=== PATIENT | female | born 1930 | race Caucasian/White ===

== ENCOUNTER 2018-07-11 12:03 | Observation (INO) | payer OTHER ==
[2018-07-11] MEDS ORDERED: NA CHLORIDE 0.9% 500 ML ONE (13:18)
[2018-07-11 13:48] LABS: Protime INR 1.4
[2018-07-11 13:49] LABS: Absolute Lymphocytes (CBC) 0.6 K/uL (0.7-4.9); Absolute Monocytes 0.4 K/uL (0.1-1.3); Absolute Neutrophil 2.5 K/uL (1.8-8.0); Basophils % 0.7 % (0-1.3); Eosinophils % 1.7 % (0-4.4); Hematocrit 34.4 % (36.0-45.0); Lymphocytes % 16.8 % (15.3-44.8); MCH 32.1 pg (27.0-35.0); MCV 94.3 fL (80-100); MPV 8.6 fL (7.6-11.3); Monocytes % 11.1 % (3.3-12.3); RBC Red Blood Cell Count 3.65 M/uL (3.86-4.86)
--- NOTE | 2018-07-11 14:02 | RAD REPORT ---
EXAM DESCRIPTION: USExtrem Venous W Compress Bil07/11/2018 1:57 pm CLINICAL HISTORY: Bilateral leg swelling COMPARISON: none FINDINGS: The common femoral, superficial femoral, popliteal and posterior tibial veins bilaterally are compressible and demonstrate augmentation. Doppler demonstrates good flow. 19 millimeter right Rodrigues's cyst IMPRESSION: No evidence of deep venous thrombosis involving either lower extremity. 19 millimeter right Rodrigues's cyst
[2018-07-11 14:04] LABS: ALT/SGPT 13 U/L (12-78); AST/SGOT 26 U/L (15-37); Albumin 2.2 g/dL (3.4-5.0); Alkaline Phosphatase 105 U/L (45-117); BUN Blood Urea Nitrogen 15 mg/dL (7-18); Bicarbonate 27 mmol/L (21-32); Bilirubin Direct 0.5 mg/dL (0-0.2); Bilirubin Total 1.4 mg/dL (0.2-1.0); Glucose Level 122 mg/dL (74-106); Magnesium 2.1 mg/dL (1.8-2.4); NT PRO-BNP 100 pg/mL (<450); Protein, Total 7.7 g/dL (6.4-8.2); Sodium Level 138 mmol/L (136-145); Troponin (Emerg Dept Use Only) < 0.02 ng/mL (0.0-0.045)
--- NOTE | 2018-07-11 15:05 | EDPHYS ---
Physician Documentation [facility] Name: Whitney Villalta Age: 87 yrs Sex: Female : 1930 Arrival Date: 07/11/2018 Time: 12:10 Bed 18 Private MD: Fareed Ballesteros H ED Physician Keven Sousa HPI: 07/11 13:06 This 87 yrs old Female presents to ER via Wheelchair with complaints of Feet patricia Swelling. 13:06 The patient presents with decreased range of motion, pain, swelling, tenderness. The patricia complaints affect the right leg and left leg. Context: The problem was sustained at an unknown site. Onset: The symptoms/episode began/occurred 3 day(s) ago. Modifying factors: The symptoms are alleviated by elevating leg, remaining still, the symptoms are aggravated by movement, weight bearing, bending knee. Associated signs and symptoms: The patient has no apparent associated signs or symptoms. Treatment prior to arrival includes: prescription medications. The patient has experienced similar episodes in the past, several times. Historical: - Allergies: 12:37 Morphine; sv - PMHx: 12:37 liver disease; Pneumonia; Colon cancer; sv - PSHx: 12:37 Knee surgery; back; Tonsillectomy; Cholecystectomy; Colectomy; sv - Immunization history:: Flu vaccine is up to date. - Social history:: Smoking status: Patient/guardian denies using tobacco, Patient/guardian denies using alcohol. - Ebola Screening: : No symptoms or risks identified at this time. - Family history:: not pertinent. ROS: 13:06 Constitutional: Negative for fever, chills, and weight loss, Eyes: Negative for injury, patricia pain, redness, and discharge, ENT: Negative for injury, pain, and discharge, Neck: Negative for injury, pain, and swelling, Cardiovascular: Negative for chest pain, palpitations, and edema, Respiratory: Negative for shortness of breath, cough, wheezing, and pleuritic chest pain, Back: Negative for injury and pain, : Negative for injury, bleeding, discharge, and swelling, Skin: Negative for injury, rash, and discoloration, Neuro: Negative for headache, weakness, numbness, tingling, and seizure, Psych: Negative for depression, anxiety, suicide ideation, homicidal ideation, and hallucinations, Allergy/Immunology: Negative for hives, rash, and allergies, Endocrine: Negative for neck swelling, polydipsia, polyuria, polyphagia, and marked weight changes, Hematologic/Lymphatic: Negative for swollen nodes, abnormal bleeding, and unusual bruising. 13:06 MS/extremity: Positive for decreased range of motion, pain, swelling, tenderness, of the right leg and left leg. Exam: 13:06 Constitutional: This is a well developed, well nourished patient who is awake, alert, patricia and in no acute distress. Head/Face: Normocephalic, atraumatic. Eyes: Pupils equal round and reactive to light, extra-ocular motions intact. Lids and lashes normal. Conjunctiva and sclera are non-icteric and not injected. Cornea within normal limits. Periorbital areas with no swelling, redness, or edema. ENT: Nares patent. No nasal discharge, no septal abnormalities noted. Tympanic membranes are normal and external auditory canals are clear. Oropharynx with no redness, swelling, or masses, exudates, or evidence of obstruction, uvula midline. Mucous membranes moist. Neck: Trachea midline, no thyromegaly or masses palpated, and no cervical lymphadenopathy. Supple, full range of motion without nuchal rigidity, or vertebral point tenderness. No Meningismus. Chest/axilla: Normal chest wall appearance and motion. Nontender with no deformity. No lesions are appreciated. Cardiovascular: Regular rate and rhythm with a normal S1 and S2. No gallops, murmurs, or rubs. Normal PMI, no JVD. No pulse deficits. Respiratory: Lungs have equal breath sounds bilaterally, clear to auscultation and percussion. No rales, rhonchi or wheezes noted. No increased work of breathing, no retractions or nasal flaring. Abdomen/GI: Soft, non-tender, with normal bowel sounds. No distension or tympany. No guarding or rebound. No evidence of tenderness throughout. Back: No spinal tenderness. No costovertebral tenderness. Full range of motion. Female : Normal external genitalia. Skin: Warm, dry with normal turgor. Normal color with no rashes, no lesions, and no evidence of cellulitis. Neuro: Awake and alert, GCS 15, oriented to person, place, time, and situation. Cranial nerves II-XII grossly intact. Motor strength 5/5 in all extremities. Sensory grossly intact. Cerebellar exam normal. Normal gait. Psych: Awake, alert, with orientation to person, place and time. Behavior, mood, and affect are within normal limits. 13:06 Musculoskeletal/extremity: Extremities: swelling, ROM: full active range of motion, full passive range of motion, Circulation is intact in all extremities. numbness, decreased sensation, Compartment Syndrome exam of affected extremity: is normal. DVT Exam: negative Homans' sign noted on exam, no appreciated bluish discoloration, no erythema, no increased warmth, pain, swelling, tenderness. Vital Signs: 12:37 BP 116 / 35; Pulse 85; Resp 16; Temp 98; Pulse Ox 95% ; Weight 64.41 kg; Height 5 ft. 5 sv in. (165.10 cm); Pain 5/10; 13:32 BP 103 / 62; Pulse 90; Resp 22; Pulse Ox 95% on R/A; tw2 14:30 BP 100 / 88; Pulse 83; Resp 17; Pulse Ox 98% on R/A; tw2 15:55 BP 97 / 63; Pulse 79; Resp 16; Pulse Ox 97% on R/A; tw2 16:53 BP 92 / 56; Pulse 76; Resp 13; Pulse Ox 98% on R/A; tw2 17:27 BP 99 / 61; Pulse 83; Resp 15; Pulse Ox 97% on R/A; tw2 12:37 Body Mass Index 23.63 (64.41 kg, 165.10 cm) sv MDM: 12:45 Patient medically screened. [facility] 13:08 Data reviewed: vital signs, nurses notes, lab test result(s), EKG, radiologic studies. [facility] 07/11 12:48 Order name: Basic Metabolic Panel; Complete Time: 14:57 sv 07/11 12:48 Order name: CBC with Diff; Complete Time: 14:57 sv 07/11 12:48 Order name: LFT's; Complete Time: 14:57 sv 07/11 12:48 Order name: Magnesium; Complete Time: 14:57 sv 07/11 12:48 Order name: NT PRO-BNP; Complete Time: 14:57 sv 07/11 12:48 Order name: PT-INR; Complete Time: 14:57 sv 07/11 12:48 Order name: Troponin (emerg Dept Use Only); Complete Time: 14:57 sv 07/11 12:48 Order name: XRAY Chest (1 view) 07/11 13:05 Order name: Lipase; Complete Time: 14:57 [facility] 07/11 13:05 Order name: AMMONIA; Complete Time: 14:57 [facility] 07/11 13:05 Order name: US Extremity Venous W Compression Jeremiah; Complete Time: 14:57 [facility] 07/11 13:05 Order name: Urine Culture [facility] 07/11 15:46 Order name: Urine Dipstick--Ancillary (enter results) 07/11 12:48 Order name: EKG; Complete Time: 12:49 07/11 12:48 Order name: Cardiac monitoring; Complete Time: 13:22 07/11 12:48 Order name: EKG - Nurse/Tech; Complete Time: 13:22 07/11 12:48 Order name: IV Saline Lock; Complete Time: 13:22 07/11 12:48 Order name: Labs collected and sent; Complete Time: 13:22 07/11 12:48 Order name: O2 Per Protocol; Complete Time: 13:22 07/11 12:48 Order name: O2 Sat Monitoring; Complete Time: 13:22 07/11 13:05 Order name: Urine Dipstick-Ancillary (obtain specimen); Complete Time: 15:21 [facility] 07/11 15:21 Order name: Straight Cath - Urine; Complete Time: 15:21 [facility] 07/11 17:02 Order name: CONS Physician Consult EDMS Administered Medications: 13:31 Drug: NS 0.9% 1000 ml Route: IV; Rate: 75 ml/hr; Site: left antecubital; tw2 17:53 Follow up: IV Status: Infusion continued upon admission tw2 Disposition: 07/11/18 15:05 Hospitalization ordered by Jp Aleman for Observation. Preliminary diagnosis are Unspecified cirrhosis of liver, Ascites, Edema, unspecified, Dyspnea. - Bed requested for Telemetry/MedSurg (observation). - Status is Observation. tw2 - Condition is Stable. - Problem is new. - Symptoms have improved. UTI on Admission? No Signatures: Dispatcher [employer] EDMS Lucia Joel RN RN sv Woody, Diana, RN RN dw Anderson, Corey, MD MD cha Wise, Tara RN RN tw2 Corrections: (The following items were deleted from the chart) 17:15 15:05 Hospitalization Ordered by Jp Aleman MD for Observation. Preliminary diagnosis dw is Unspecified cirrhosis of liver; Ascites; Edema, unspecified; Dyspnea. Bed requested for Telemetry/MedSurg (observation). Status is Observation. Condition is Stable. Problem is new. Symptoms have improved. UTI on Admission? No. patricia 17:55 17:15 07/11/2018 15:05 Hospitalization Ordered by Jp Aleman MD for Observation. tw2 Preliminary diagnosis is Unspecified cirrhosis of liver; Ascites; Edema, unspecified; Dyspnea. Bed requested for Telemetry/MedSurg (observation). Status is Observation. Condition is Stable. Problem is new. Symptoms have improved. UTI on Admission? No. dw
--- NOTE | 2018-07-11 15:05 | ER ---
Nurse's Notes [facility] Name: Whitney Villalta Age: 87 yrs Sex: Female : 1930 Arrival Date: 07/11/2018 Time: 12:10 Bed 18 Private MD: Fareed Ballesteros H Diagnosis: Unspecified cirrhosis of liver;Ascites;Edema, unspecified;Dyspnea Presentation: 07/11 12:34 Presenting complaint: Patient states: abd swelling and bilateral feet swelling x a sv month but has increased over the last week. SOB with exertion. Transition of care: patient was not received from another setting of care. Onset of symptoms was June 2018. Care prior to arrival: None. 12:34 Method Of Arrival: Wheelchair sv 12:34 Acuity: KELLY 2 sv 13:46 Risk Assessment: Do you want to hurt yourself or someone else? Patient reports no tw2 desire to harm self or others. Initial Sepsis Screen: Does the patient meet any 2 criteria? No. Patient's initial sepsis screen is negative. Does the patient have a suspected source of infection? No. Patient's initial sepsis screen is negative. Historical: - Allergies: 12:37 Morphine; sv - PMHx: 12:37 liver disease; Pneumonia; Colon cancer; sv - PSHx: 12:37 Knee surgery; back; Tonsillectomy; Cholecystectomy; Colectomy; sv - Immunization history:: Flu vaccine is up to date. - Social history:: Smoking status: Patient/guardian denies using tobacco, Patient/guardian denies using alcohol. - Ebola Screening: : No symptoms or risks identified at this time. - Family history:: not pertinent. Screenin:47 Abuse screen: Denies threats or abuse. Nutritional screening: No deficits noted. tw2 Tuberculosis screening: No symptoms or risk factors identified. Fall Risk Gait- Weak (10 pts.). Assessment: 12:45 General: Appears in no apparent distress. well groomed, Behavior is calm, cooperative, tw2 appropriate for age. Pain: Complains of pain in left leg and right leg. Neuro: Level of Consciousness is awake, alert, obeys commands, Oriented to person, place, time, situation. Cardiovascular: Denies chest pain, shortness of breath, Heart tones S1 S2 Patient's skin is warm and dry. Edema is 3+ to left ankle, left foot, left toes, right ankle, right foot and right toes. Respiratory: Airway is patent Respiratory effort is even, unlabored, Respiratory pattern is regular, symmetrical, Breath sounds are clear bilaterally. GI: Abdomen is round distended, Bowel sounds present X 4 quads. Abd is soft X 4 quads Reports bloating, abdominal swelling. : No signs and/or symptoms were reported regarding the genitourinary system. EENT: No signs and/or symptoms were reported regarding the EENT system. Derm: Musculoskeletal: Range of motion: intact in left ankle and right ankle noted purple discoloration to b/l feet Swelling present in right foot and left foot. 13:32 Reassessment: Patient appears in no apparent distress at this time. No changes from tw2 previously documented assessment. Patient and/or family updated on plan of care and expected duration. Pain level reassessed. Patient is alert, oriented x 3, equal unlabored respirations, skin warm/dry/pink. 14:43 Reassessment: Patient appears in no apparent distress at this time. No changes from tw2 previously documented assessment. Patient and/or family updated on plan of care and expected duration. Pain level reassessed. Patient is alert, oriented x 3, equal unlabored respirations, skin warm/dry/pink. 15:54 Reassessment: Patient appears in no apparent distress at this time. No changes from tw2 previously documented assessment. Patient and/or family updated on plan of care and expected duration. Pain level reassessed. Patient is alert, oriented x 3, equal unlabored respirations, skin warm/dry/pink. 16:53 Reassessment: Patient appears in no apparent distress at this time. No changes from tw2 previously documented assessment. Patient and/or family updated on plan of care and expected duration. Pain level reassessed. Patient is alert, oriented x 3, equal unlabored respirations, skin warm/dry/pink. Vital Signs: 12:37 BP 116 / 35; Pulse 85; Resp 16; Temp 98; Pulse Ox 95% ; Weight 64.41 kg; Height 5 ft. 5 sv in. (165.10 cm); Pain 5/10; 13:32 BP 103 / 62; Pulse 90; Resp 22; Pulse Ox 95% on R/A; tw2 14:30 BP 100 / 88; Pulse 83; Resp 17; Pulse Ox 98% on R/A; tw2 15:55 BP 97 / 63; Pulse 79; Resp 16; Pulse Ox 97% on R/A; tw2 16:53 BP 92 / 56; Pulse 76; Resp 13; Pulse Ox 98% on R/A; tw2 17:27 BP 99 / 61; Pulse 83; Resp 15; Pulse Ox 97% on R/A; tw2 12:37 Body Mass Index 23.63 (64.41 kg, 165.10 cm) sv ED Course: 12:10 Patient arrived in ED. sb2 12:10 Fareed Ballesteros DO is Private Physician. sb2 12:35 Triage completed. sv 12:38 Arm band placed on. sv 12:45 Keven Sousa MD is Attending Physician. patricia 13:06 Kimberly Martin RN is Primary Nurse. tw2 13:14 Placed in gown. Bed in low position. Adult w/ patient. campus monitor on. Pulse ox on. tw2 NIBP on. Warm blanket given. 13:22 Inserted saline lock: 22 gauge in left antecubital area, using aseptic technique. tw2 ,using aseptic technique. insertion by Mckenzie Rachel RN Blood collected. 13:28 XRAY Chest (1 view) In Process Unspecified. EDMS 13:59 US Extremity Venous W Compression Jeremiah In Process Unspecified. EDMS 15:04 Jp Aleman MD is Hospitalizing Provider. [facility] 15:10 Straight cath inserted, using sterile technique, 18 Fr. Specimen obtained. 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 Patient tolerated well. 15:22 Urine Culture Sent. tw2 15:25 EKG done, by photo technician. reviewed by Keven Sousa MD. tc 17:20 No provider procedures requiring assistance completed. Patient admitted, IV remains in tw2 place. 17:25 Awaiting: attempted to call report, KULDIP Tovar will have to call me back. tw2 Administered Medications: 13:31 Drug: NS 0.9% 1000 ml Route: IV; Rate: 75 ml/hr; Site: left antecubital; tw2 17:53 Follow up: IV Status: Infusion continued upon admission tw2 Outcome: 15:05 Decision to Hospitalize by Provider. patricia 17:41 Admitted to Tele accompanied by tech, family with patient, via stretcher, room 207, sg with chart, Report called to [place] CHRISTIANSEN 17:41 Condition: stable 17:41 Instructed on the need for admit, safety practices, Demonstrated understanding of instructions. 17:55 Patient left the ED. tw2 Signatures: Dispatcher [employer] Lucia Helm, RN Maico Shelby RN RN sg Anderson, Corey, MD MD cha Callis, Tiffany, liquor inspector EKG [facility] Kimberly Martin RN RN tw2 Jennifer Germain 2
--- NOTE | 2018-07-11 15:29 | RAD REPORT ---
EXAM DESCRIPTION: Jaswant Single View07/11/2018 1:27 pm CLINICAL HISTORY: Shortness of breath COMPARISON: none FINDINGS: The interstitial pattern within the lungs appears mildly prominent. . The heart is normal size IMPRESSION: Mild prominence of the interstitial pulmonary parenchyma may indicate a pneumonitis or be chronic
--- NOTE | 2018-07-11 15:57 | EKG ---
Test Date: 2018-07-11 Test Time: 15:21:06 Reconciliation Accountant: JUAN A MEASUREMENT RESULTS: Intervals: Rate: 83 MI: 186 QRSD: 72 QT: 398 QTc: 467 [place]: P: 58 MI: 186 QRS: 69 T: 56 INTERPRETIVE STATEMENTS: Normal sinus rhythm Low voltage QRS Borderline ECG No previous ECG available for comparison Electronically Signed On 07-11-18 15:56:44 CONE TENDER by Bravo Gonzalez
[2018-07-11 16:03] LABS: Urine Blood TRACE (NEG); Urine Glucose NEGATIVE (NEG); Urine Protein NEGATIVE (NEG); Urine pH 6.5 (5.0-7.0)
[2018-07-11 19:56] VITALS: BMI 23.6
--- NOTE | 2018-07-11 20:29 | P.HP ---
Certification for Inpatient Patient admitted to: Observation With expected LOS: <2 Midnights Practitioner: I am a practitioner with admitting privileges, knowledge of patient current condition, hospital course, and medical plan of care. Services: Services provided to patient in accordance with Admission requirements found in Title 42 Section 412.3 of the Code of Federal Regulations Patient History Date of Service: 07/11/18 Reason for admission: Lower extremity edema History of Present Illness: Ms Villalta is a 87-year-old woman with history of liver cirrhosis, colon cancer, who came to ER complaining of progressive lower extremity edema since 1 month ago, getting worse during last week. Patient also complained of shortness of breath specially during ambulation. She has had some chest pain, pressure-like , lasting for 1 min or so, retrosternal, not radiating for associated with nausea, or diaphoresis. She also noticed that her stomach has been increasing in size. Previously she has had paracentesis done when she had similar symptoms. Lab work shows WBC 3.6K, bilirubin 1.4, normal transaminases. Chest- x-ray shows prominent interstitial, possible chronic. Doppler shows no DVT but right Rodrigues cyst 19 mm. No fever. Allergies adhesive tape Allergy (Verified 07/11/18 18:58) Itching morphine Allergy (Verified 07/11/18 16:57) Itching/Hives/Rash Home medications list reviewed: Yes Home Medications: Docusate Sodium 1 cap PO BEDTIME 07/11/18 Furosemide [Lasix*] 1 tab PO DAILY 07/11/18 Gabapentin 1 cap PO TID 07/11/18 Iron 28 mg PO BID 07/11/18 Magnesium Oxide [Magnesium] 1 tab PO BID 07/11/18 Potassium Chloride [Klor-Con M10] 1 tab PO BID 07/11/18 Rifaximin [Xifaxan*] 550 mg PO BID 07/11/18 Spironolactone [Aldactone*] 2 tab PO DAILY 07/11/18 - Past Medical/Surgical History Has patient received pneumonia vaccine in the past: Yes Diabetic: No -: liver cirrhosis -: colon cancer -: back surgery -: knee surgery -: gallbladder removal -: tonsillectomy - Family History Family History: Reviewed- Non-Contributory - Social History Smoking Status: Never smoker Alcohol use: No CD- Drugs: No Caffeine use: Yes Place of Residence: Home Review of Systems 10-point ROS is otherwise unremarkable Physical Examination - Vital Signs Temperature: 97 F Blood Pressure: 106/58 Pulse: 86 Respirations: 20 Pulse Ox (%): 97 - Physical Exam General: Alert, In no apparent distress HEENT: Atraumatic, PERRLA, Mucous membr. moist/pink, EOMI, Sclerae nonicteric Neck: Supple, 2+ carotid pulse no bruit, No LAD, Without JVD or thyroid abnormality Respiratory: Clear to auscultation bilaterally, Normal air movement Cardiovascular: Regular rate/rhythm, Normal S1 S2 Gastrointestinal: Normal bowel sounds, No tenderness, Distended Musculoskeletal: No tenderness, Swelling (3+ bilateral lower extremity edema) Integumentary: No rashes Neurological: Normal speech, Normal strength at 5/5 x4 extr, Normal tone, Normal affect Lymphatics: No axilla or inguinal lymphadenopathy - Studies Laboratory Data (last 24 hrs) 07/11/18 13:27: Lipase 256 07/11/18 13:19: PT 16.6 H, INR 1.40 07/11/18 13:19: WBC 3.6 L, Hgb 11.7 L, Hct 34.4 L, Plt Count 113 L 07/11/18 13:19: Sodium 138, Potassium 4.0, BUN 15, Creatinine 1.10, Glucose 122 H, Magnesium 2.1, Total Bilirubin 1.4 H, AST 26, ALT 13, Alkaline Phosphatase 105 Assessment and Plan - Problems (Diagnosis) (1) Cirrhosis Current Visit: Yes Status: Acute Qualifiers: Hepatic cirrhosis type: unspecified hepatic cirrhosis Ascites presence: with ascites Qualified Code(s): K74.60 - Unspecified cirrhosis of liver; R18.8 - Other ascites (2) Lower extremity edema Current Visit: Yes Status: Acute (3) Shortness of breath Current Visit: Yes Status: Acute - Plan Will admit the patient to the hospital due to severe lower extremity edema. Differential diagnosis include decompensated liver cirrhosis, also CHF. No previous echo on record, will order 1 during this admission. Order abdominal ultrasound, GI specialist has been consulted. Order IV Lasix. - Advance Directives Does patient have a Living Will: No Does patient have a Durable POA for Healthcare: No - Code Status/Comfort Care Code Status Assessed: Yes Code Status: Full Code
[2018-07-11] MEDS: GABAPENTIN 300 MG CAP PO SCH (20:32)
[2018-07-11] MEDS: Rifaximin 550 MG Tab PO SCH (20:36)
[2018-07-11] MEDS ORDERED: CEFTRIAXONE/SWI 1gm 1 GM/10 ML SYR ONE (20:49)
[2018-07-11] MEDS ORDERED: CEFTRIAXONE 1 GM/NS 50 ML 1 GM/50 ML BAG IV SCH (21:00)
[2018-07-12] MEDS: FUROSEMIDE 40 MG/4 ML VIAL IV SCH ×3 (00:03→16:22)
[2018-07-12 05:45] LABS: Absolute Lymphocytes (CBC) 0.6 K/uL (0.7-4.9); Absolute Monocytes 0.4 K/uL (0.1-1.3); Absolute Neutrophil 2.1 K/uL (1.8-8.0); Basophils % 0.9 % (0-1.3); Eosinophils % 2.2 % (0-4.4); Hematocrit 33.9 % (36.0-45.0); Lymphocytes % 19.6 % (15.3-44.8); MCH 32.2 pg (27.0-35.0); MCV 93.6 fL (80-100); MPV 8.7 fL (7.6-11.3); Monocytes % 12.7 % (3.3-12.3); RBC Red Blood Cell Count 3.62 M/uL (3.86-4.86)
[2018-07-12 06:04] LABS: Albumin 2.1 g/dL (3.4-5.0); Bilirubin Total 1.4 mg/dL (0.2-1.0); Potassium 4.1 mmol/L (3.5-5.1); Protein, Total 7.3 g/dL (6.4-8.2)
[2018-07-12 06:31] LABS: Anisocytosis SLIGHT; Blood Morphology Comment NOT SEEN (NOT SEEN); Platelet Estimate ADEQ; Urine White Blood Cell Casts OK
[2018-07-12] MEDS: Rifaximin 550 MG Tab PO SCH (09:00)
[2018-07-12] MEDS: GABAPENTIN 300 MG CAP PO SCH ×3 (10:02→21:00)
[2018-07-12] MEDS: SPIRONOLACTONE 25 MG TABLET PO SCH (10:03)
[2018-07-12] MEDS ORDERED: VANCOMYCIN 1.25 GM in NA CHLORIDE 0.9% 250 ML IVPB SCH (13:00)
--- NOTE | 2018-07-12 14:49 | PN ---
Date of Progress Note: 07/12/2018 Subjective: The patient was seen and examined. Chart reviewed and case with RN. The patient states her shortness of breath has improved, however, complaining of significant pain in her left lower ext remity, specifically her foot. Review of Systems: Negative except as above. Medications: List reviewed. Code Status: Full. Physical Examination: Vital Signs: Temperature 97.7, heart rate 81, blood pressure 107/62, respirations 16, O2 97% on room air. General: Awake, alert, oriented x3. Elderly female, ill-appearing. CV: S1, S2. Peripheral pulses present. No murmurs. Respiratory: Diminished breath sounds. No wheezing or stridor. Gastrointestinal: Abdomen is soft, mildly distended. Mild ascites present. No rebound or guarding. Bowel sounds positive. Extremities: No clubbing, cyanosis. The patient has lower extremity edema bilaterally. Neurologic: Nonfocal. Skin: Shows erythema in the left lower extremity. Laboratory Data: Sodium 139, potassium 4.1, chloride 106, CO2 27, BUN 16, creatinine 1, glucose 83, calcium 8.1, albumin 2.1. WBC 3.2, H and H of 11.7 and 33.9, platelets 99. Urine culture pending. Doppler shows no DVT in either lower extremity. A 19 mm right Rodrigues cyst. Assessment: 1.Left lower extremity cellulitis. We will add vancomycin and obtain blood cultures. Continue elev ation and ice as needed symptomatically. 2.Acute shortness of breath, likely related to liver cirrhosis, improving. Currently saturating 95% on room air. 3.Cirrhosis with ascites. Does not need paracentesis at this time. We will continue to monitor. C ontinue with spironolactone and IV Lasix. 4.Lower extremity edema bilaterally secondary to above. Continue diuresis. 5.History of colon cancer. 6.Severe protein-calorie malnutrition. Albumin is 2.1. 7.Normocytic normochromic anemia, likely anemia of chronic disease. Continue iron. Plan: Adjust IV antibiotics. Obtain blood cultures. Likely need antibiotics for another 24 to 48 h ours depending on clinical response. SA/MODL Voice ID: [id number] Report ID: [id number]
--- NOTE | 2018-07-12 15:16 | ECHO ---
HEIGHT: 5 ft 5 in WEIGHT: 142 lb 0 oz DATE OF STUDY: 07/12/[address]: Sean Augustin MD 2-DIMENSIONAL: YES M.MODE: YES DOPPLER: YES COLOR FLOW: YES TDS: NO PORTABLE: NO DEFINITY: NO BUBBLE STUDY: NO DIAGNOSIS: EDEMA/SHORTNESS OF BREATH CARDIAC HISTORY: CATHERIZATION: NO SURGERY: NO PROSTHETIC VALVE: NO PACEMAKER: NO MEASUREMENTS (cm) DIASTOLIC (NORMALS) SYSTOLIC (NORMALS) IVSd 1.2 (0.6-1.2) LA Diam (1.9-4.0) LVEF 58% LVIDd 3.3 (3.5-5.7) LVIDs (2.0-3.5) %FS % LVPWd 1.2 (0.6-1.2) Ao Diam 2.0 (2.0-3.7) 2 DIMENSIONAL ASSESSMENT: RIGHT ATRIUM: NORMAL LEFT ATRIUM: NORMAL RIGHT VENTRICLE: NORMAL LEFT VENTRICLE: NORMAL TRICUSPID VALVE: NORMAL MITRAL VALVE: MITRAL ANNULAR CALCIFICATION PULMONIC VALVE: NORMAL AORTIC VALVE: SCLEROSIS PERICARDIAL EFFUSION: NONE AORTIC ROOT: NORMAL LEFT VENTRICULAR WALL MOTION: NORMAL. DOPPLER/COLOR FLOW: NORMAL. COMMENTS: AORTIC SCLEROSIS. MITRAL ANNULAR CALCIFICATION. NORMAL LEFT VENTRICULAR EJECTON FRACTION. TECHNOLOGIST: RAMAKRISHNA BOSWELL
[2018-07-12] MEDS: XIFAXAN (RIFAXIMIN) 550 MG TABLETS PO SCH (16:23)
[2018-07-12] MEDS: IRON 28 MG PO SCH (16:23)
[2018-07-12] MEDS ORDERED: DOCUSATE NA 100 MG CAP PO SCH (21:00)
[2018-07-12] MEDS ORDERED: CEFTRIAXONE/SWI 1gm 1 GM/10 ML SYR IV SCH (21:00)
[2018-07-13] MEDS: FUROSEMIDE 40 MG/4 ML VIAL IV SCH ×2 (00:17→10:22)
[2018-07-13 05:48] LABS: Absolute Lymphocytes (CBC) 0.8 K/uL (0.7-4.9); Absolute Monocytes 0.5 K/uL (0.1-1.3); Absolute Neutrophil 1.9 K/uL (1.8-8.0); Basophils % 1.1 % (0-1.3); Eosinophils % 5.1 % (0-4.4); Hematocrit 34.1 % (36.0-45.0); Lymphocytes % 24.4 % (15.3-44.8); MCH 32.3 pg (27.0-35.0); MPV 8.2 fL (7.6-11.3); Monocytes % 13.9 % (3.3-12.3); RBC Red Blood Cell Count 3.66 M/uL (3.86-4.86)
[2018-07-13 06:04] LABS: Bilirubin Total 1.3 mg/dL (0.2-1.0); Phosphorus 3.1 mg/dL (2.5-4.9); Potassium 3.6 mmol/L (3.5-5.1); Protein, Total 7.3 g/dL (6.4-8.2)
[2018-07-13] MEDS ORDERED: POTASSIUM CL SA 10 MEQ TAB PO ONE (06:05)
[2018-07-13 10:06] VITALS: O2SAT 94
[2018-07-13] MEDS: SPIRONOLACTONE 25 MG TABLET PO SCH (10:21)
[2018-07-13] MEDS: IRON 28 MG PO SCH (10:22)
[2018-07-13] MEDS: GABAPENTIN 300 MG CAP PO SCH ×2 (10:22→13:49)
[2018-07-13] MEDS: XIFAXAN (RIFAXIMIN) 550 MG TABLETS PO SCH (10:23)
[2018-07-13 14:21] VITALS: BP 119/72; TEMP 97
--- NOTE | 2018-07-14 09:43 | DS ---
Date of Discharge: 07/13/2018 Consultants: [facility], Dr. Dunn. Admitting Diagnoses: 1.Hepatic cirrhosis. 2.Dyspnea. 3.Lower extremity edema. Discharge Diagnoses: 1.Shortness of breath, likely related to liver cirrhosis, improving. 2.Left lower extremity cellulitis. 3.Cirrhosis with ascites. 4.Lower extremity edema. 5.History of colon cancer. 6.Severe protein-calorie malnutrition. Albumin 2.1. 7.Normocytic normochromic anemia, likely anemia of chronic disease. Hospital Course: The patient is an 87-year-old female with past medical history of hepatitis C with liver cirrhosis, status post treatment with Harvoni, follows up with GI outside of [place]. The patient also has anemia and comes in with lower extremity edema and shortness of breath. The patien t did have recent ascites that needed paracentesis. Her workup showed white count of 3.6. Doppler w as done which showed no DVT. The patient was seen by TI, Dr. Dunn, who did not feel that the robert rtness of breath was related to the ascites, which was mild to moderate. Did not require any paracen tesis. The patient's symptoms did improve with diuresis. She was however found to have left lower e xtremity cellulitis, started on IV antibiotics. Cultures were ordered. When I saw the patient initi ally, however, were not done. Blood culture was then obtained the following day, but however, utilit y at this time is decreased. Echocardiogram was done, which showed EF of 58%. Aortic sclerosis. Th e patient otherwise was doing well. She will need some protein supplementation due to her albumin be ing significantly low. The patient was doing well. She will need Home Health with PT. The patient is then discharged in a stable condition. Activity: As tolerated. Medications: As per medication reconciliation list. Diet: Low-sodium diet, fluid-restricted diet. Activity: Fall precautions. Continue with rehab and PT. Followup: Follow up with PCP in 2-3 days. Follow up with primary GI in 2 weeks. Return for worseni ng condition. Physical Examination: General: Awake, alert, oriented, in no acute distress. Elderly female. CV: S1, S2. Peripheral pulses present essentially. Respiratory: Moving air well bilaterally. Abdomen: Abdomen is soft, nontender, nondistended. Positive bowel sounds. Some mild ascites presen t. Extremities: No clubbing or cyanosis. Trace pedal edema. Neurologic: Nonfocal. SA/MODL Voice ID: [id number] Report ID: [id number]
== END 2018-07-13 14:52 | disposition home health service (06) ==
LOC: ER 12:03 → ERHOLD 16:59 → 2ND 17:42
PROVIDERS: ADMIT Family Medicine; ATTEND Internal Medicine
DX: K74.60 Unspecified cirrhosis of liver (principal); L03.116 Cellulitis of left lower limb; R18.8 Other ascites; Z85.038 Personal history of other malignant neoplasm of large intestine; E43 Unspecified severe protein-calorie malnutrition; Z68.23 Body mass index [BMI] 23.0-23.9, adult; D64.9 Anemia, unspecified
CPT/HCPCS: 36415 ×2; 51702; 71045; 80048; 80053 ×2; 80076; 81003; 82140; 83690; 83735; 83880; 84100; 84484; 85025 ×3; 85610; 87040 ×2; 87086; 87088; 93005; 93306; 93970; 94760 ×5; 96360; 96361; 99285; G0378 ×2; J0696 ×2; J1940 ×4

== ENCOUNTER 2018-07-20 00:20 | Emergency (ER) | payer OTHER ==
--- OUTSIDE RECORDS SUMMARY | 2018-07-20 01:29 | XMS REPORT ---
:1930 [facility] Address [address] [place] [address] [address]. [address] [place] [address] Care Team Providers Name Role Phone MARY SEARS Unavailable Unavailable RBYAN MOLINA Unavailable Unavailable Problems This patient has no known problems. Allergies, Adverse Reactions, Alerts This patient has no known allergies or adverse reactions. Medications This patient has no known medications. Results Test Description Test Time Test Comments Text Results Atomic Results Result Comments ALPHA FETOPROTEIN (AFP), TUMOR MARKER 2018-01-06 17:15:00 Test Item Value Reference Range Comments ALPHA-FETOPROTEIN (BEAKER) (test yzfd=1497) 3.3 ng/mL <10.0 [id number] 16:34:00 Test Item Value Reference Range Comments MAGNESIUM (BEAKER) (test pzdx=617) 1.8 mg/dL 1.6-2.6 BASIC METABOLIC [id number] 16:34:00 Test Item Value Reference Range Comments SODIUM (BEAKER) (test 133 meq/L 136-145 huxp=785) POTASSIUM (BEAKER) (test 3.9 meq/L 3.5-5.1 dfwu=583) CHLORIDE (BEAKER) (test 99 meq/L 98-107 trin=147) CO2 (BEAKER) (test 25 meq/L 22-29 ecwt=756) BLOOD UREA NITROGEN 12 mg/dL 7-21 (BEAKER) (test pqfe=320) CREATININE (BEAKER) (test 0.97 mg/dL 0.57-1.25 zogf=494) GLUCOSE RANDOM (BEAKER) 93 mg/dL 70-105 (test szmg=607) CALCIUM (BEAKER) (test 9.0 mg/dL 8.4-10.2 rcns=602) EGFR (BEAKER) (test 54 mL/min/1.73 sq m ESTIMATED GFR IS NOT cwhd=7227) ACCURATE CREATININE CLEARANCE IN PREDICTING GLOMERULAR FILTRATION RATE. ESTIMATED GFR IS NOT APPLICABLE FOR DIALYSIS PATIENTS. Specimen slightly ictericHEPATIC FUNCTION [id number] 16:34:00 Test Item Value Reference Range Comments TOTAL PROTEIN (BEAKER) (test lcbc=732) 8.0 gm/dL 6.0-8.3 ALBUMIN (BEAKER) (test osfh=2063) 3.0 g/dL 3.5-5.0 BILIRUBIN TOTAL (BEAKER) (test kgab=339) 1.9 mg/dL 0.2-1.2 BILIRUBIN DIRECT (BEAKER) (test daaa=197) 0.8 mg/dL 0.1-0.5 ALKALINE PHOSPHATASE (BEAKER) (test nhkn=917) 122 U/L 40-150 AST (SGOT) (BEAKER) (test dvgn=943) 30 U/L 5-34 ALT (SGPT) (BEAKER) (test ryfb=797) 12 U/L 6-55 Specimen slightly ictericPROTHROMBIN [id number] 16:17:00 Test Item Value Reference Range Comments PROTIME (BEAKER) (test lsdt=392) 17.3 seconds 11.7-14.7 INR (BEAKER) (test zoxg=875) 1.4 <=5.9 RECOMMENDED COUMADIN/WARFARIN INR THERAPY RANGESSTANDARD DOSE: 2.0 - 3.0 Includes: PROPHYLAXIS forvenous thrombosis, systemic embolization; TREATMENT for venous thrombosis and/or pulmonary embolus.HIGH RISK: Target INR is 2.5-3.5 for patients with mechanical heart valves.CBC W/PLT COUNT & AUTO [id number] 16:17:00 Test Item Value Reference Range Comments WHITE BLOOD CELL COUNT (BEAKER) (test qysl=805) 5.6 K/ L 3.5-10.5 RED BLOOD CELL COUNT (BEAKER) (test weqs=568) 3.83 M/ L 3.93-5.22 HEMOGLOBIN (BEAKER) (test oqni=807) 12.0 GM/DL 11.2-15.7 HEMATOCRIT (BEAKER) (test sgfv=494) 36.8 % 34.1-44.9 MEAN CORPUSCULAR VOLUME (BEAKER) (test tdgj=115) 96.1 fL 79.4-94.8 MEAN CORPUSCULAR HEMOGLOBIN (BEAKER) (test 31.3 pg 25.6-32.2 ahte=016) MEAN CORPUSCULAR HEMOGLOBIN CONC (BEAKER) (test 32.6 GM/DL 32.2-35.5 tnrx=076) RED CELL DISTRIBUTION WIDTH (BEAKER) (test 15.9 % 11.7-14.4 hndf=970) PLATELET COUNT (BEAKER) (test vzvz=355) 83 K/CU MM 150-450 MEAN PLATELET VOLUME (BEAKER) (test pqeh=313) 11.1 fL 9.4-12.3 NUCLEATED RED BLOOD CELLS (BEAKER) (test 0 /100 WBC 0-0 qekf=316) NEUTROPHILS RELATIVE PERCENT (BEAKER) (test 54 % rxwe=327) LYMPHOCYTES RELATIVE PERCENT (BEAKER) (test 36 % hdiv=000) MONOCYTES RELATIVE PERCENT (BEAKER) (test 8 % nchh=032) EOSINOPHILS RELATIVE PERCENT (BEAKER) (test 2 % zsjn=560) BASOPHILS RELATIVE PERCENT (BEAKER) (test 1 % gcyn=229) NEUTROPHILS ABSOLUTE COUNT (BEAKER) (test 3.01 K/ L 1.56-6.13 mwnd=130) LYMPHOCYTES ABSOLUTE COUNT (BEAKER) (test 1.98 K/ L 1.18-3.74 njtr=955) MONOCYTES ABSOLUTE COUNT (BEAKER) (test gdyd=943) 0.44 K/ L 0.24-0.36 EOSINOPHILS ABSOLUTE COUNT (BEAKER) (test 0.10 K/ L 0.04-0.36 wpxs=282) BASOPHILS ABSOLUTE COUNT (BEAKER) (test okal=146) 0.04 K/ L 0.01-0.08 IMMATURE GRANULOCYTES-RELATIVE PERCENT (BEAKER) 0 % 0-1 (test uhtm=9531) ALPHA FETOPROTEIN (AFP), TUMOR [id number] 16:14:00 Test Item Value Reference Range Comments ALPHA-FETOPROTEIN (BEAKER) (test stma=0594) 5.7 ng/mL <10.0 Effective 07/17/2014: Reference Range ChangeNew: <10.0 Previous: 0.0- [id number] 15:57:00 Test Item Value Reference Range Comments MAGNESIUM (BEAKER) (test hkzk=583) 1.9 mg/dL 1.6-2.6 BASIC METABOLIC [id number] 15:57:00 Test Item Value Reference Range Comments SODIUM (BEAKER) (test 139 meq/L 136-145 wsqz=470) POTASSIUM (BEAKER) (test 4.5 meq/L 3.5-5.1 fhvg=487) CHLORIDE (BEAKER) (test 105 meq/L 98-107 spdr=891) CO2 (BEAKER) (test 25 meq/L 22-29 axot=120) BLOOD UREA NITROGEN 15 mg/dL 7-21 (BEAKER) (test hdel=969) CREATININE (BEAKER) (test 0.95 mg/dL 0.57-1.25 gbdx=796) GLUCOSE RANDOM (BEAKER) 86 mg/dL 70-105 (test otjo=960) CALCIUM (BEAKER) (test 9.4 mg/dL 8.4-10.2 jsvj=164) EGFR (BEAKER) (test 56 mL/min/1.73 sq m ESTIMATED GFR IS NOT qbib=1808) ACCURATE CREATININE CLEARANCE IN PREDICTING GLOMERULAR FILTRATION RATE. ESTIMATED GFR IS NOT APPLICABLE FOR DIALYSIS PATIENTS. Specimen slightly ictericHEPATIC FUNCTION [id number] 15:57:00 Test Item Value Reference Range Comments TOTAL PROTEIN (BEAKER) (test vbus=875) 7.6 gm/dL 6.0-8.3 ALBUMIN (BEAKER) (test cpwh=6137) 3.2 g/dL 3.5-5.0 BILIRUBIN TOTAL (BEAKER) (test gntb=820) 1.8 mg/dL 0.2-1.2 BILIRUBIN DIRECT (BEAKER) (test vqol=977) 0.8 mg/dL 0.1-0.5 ALKALINE PHOSPHATASE (BEAKER) (test asbv=535) 112 U/L 40-150 AST (SGOT) (BEAKER) (test ljyh=746) 33 U/L 5-34 ALT (SGPT) (BEAKER) (test cxqu=008) 17 U/L 6-55 Specimen slightly ictericPROTHROMBIN [id number] 15:56:00 Test Item Value Reference Range Comments PROTIME (BEAKER) (test kmqd=972) 16.7 seconds 11.7-14.7 INR (BEAKER) (test trsb=710) 1.4 <=5.9 RECOMMENDED COUMADIN/WARFARIN INR THERAPY RANGESSTANDARD DOSE: 2.0 - 3.0 Includes: PROPHYLAXIS forvenous thrombosis, systemic embolization; TREATMENT for venous thrombosis and/or pulmonary embolus.HIGH RISK: Target INR is 2.5-3.5 for patients with mechanical heart valves.CBC W/PLT COUNT & AUTO [id number] 15:56:00 Test Item Value Reference Range Comments WHITE BLOOD CELL COUNT (BEAKER) (test clsy=923) 5.3 K/ L 4.0-10.0 RED BLOOD CELL COUNT (BEAKER) (test kqeo=914) 4.21 M/ L 4.00-5.00 HEMOGLOBIN (BEAKER) (test ewuh=083) 14.1 GM/DL 12.0-15.0 HEMATOCRIT (BEAKER) (test vzdb=590) 41.7 % 36.0-45.0 MEAN CORPUSCULAR VOLUME (BEAKER) (test zwmz=156) 99.1 fL 82.0-99.0 MEAN CORPUSCULAR HEMOGLOBIN (BEAKER) (test 33.4 pg 27.0-33.0 llxj=127) MEAN CORPUSCULAR HEMOGLOBIN CONC (BEAKER) (test 33.7 GM/DL 32.0-36.0 xkxw=310) RED CELL DISTRIBUTION WIDTH (BEAKER) (test 13.2 % 10.3-14.2 gacc=347) PLATELET COUNT (BEAKER) (test aeda=716) 77 K/CU MM 150-430 MEAN PLATELET VOLUME (BEAKER) (test muha=945) 8.4 fL 6.5-10.5 NUCLEATED RED BLOOD CELLS (BEAKER) (test 0 /100 WBC 0-0 wfom=478) NEUTROPHILS RELATIVE PERCENT (BEAKER) (test 54 % slen=961) LYMPHOCYTES RELATIVE PERCENT (BEAKER) (test 33 % limv=959) MONOCYTES RELATIVE PERCENT (BEAKER) (test 10 % ljsz=901) EOSINOPHILS RELATIVE PERCENT (BEAKER) (test 3 % xuem=736) BASOPHILS RELATIVE PERCENT (BEAKER) (test 0 % zqgu=001) NEUTROPHILS ABSOLUTE COUNT (BEAKER) (test 2.86 K/ L 1.80-8.00 lbgt=837) LYMPHOCYTES ABSOLUTE COUNT (BEAKER) (test 1.77 K/ L 1.48-4.50 ikni=498) MONOCYTES ABSOLUTE COUNT (BEAKER) (test vopi=684) 0.56 K/ L 0.00-1.30 EOSINOPHILS ABSOLUTE COUNT ([facility]) (test 0.13 K/ L 0.00-0.50 dutc=168) BASOPHILS ABSOLUTE COUNT ([facility]) (test mgxl=105) 0.02 K/ L 0.00-0.20 0.82PAHB-[id number] 11:05:00 Test Item Value Reference Range Comments POC-CREATININE ([facility]) 0.9 mg/dL 0.6-1.[address] (test ihav=0040) [facility] [id number] POC-EGFR ([facility]) (test 59 mL/min/1.73M2 kose=4578)
--- OUTSIDE RECORDS SUMMARY | 2018-07-20 01:29 | XMS REPORT | Clinical Summary ---
:1930 Author Organization [facility] Address [address] [place] [address] Care Team Providers Name Role Phone KathieTani Hans Primary Care Provider Kanyd Castillo PA-C Physician [employer] Technician Ankush Levine Referring Physician Allergies Active Allergy Reactions Severity Noted Date Comments Adhesive Other (See Comments) 01/31/2016 Pulls skin off. Morphine Other (See Comments) 09/06/2014 Hallucinations Medications Medication Sig Dispensed Refills Start Date End Date Status propranolol Take 1 tablet 60 tablet 3 07/02/2016 Active (INDERAL) 20 MG (20 mg total) tabletIndications: by mouth daily Portal hypertension Hold if pulse with esophageal is less than varices (HCC) 60. ferrous sulfate 325 Take 325 mg by 0 Active (65 FE) MG mouth daily tabletIndications: with Secondary esophageal breakfast. 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 cholecalciferol, Take 2,000 0 Discontinued vitamin D3, 2,000 Units by mouth 8 unit Cap daily. docusate sodium Take 100 mg by 0 Discontinued (STOOL SOFTENER) 100 mouth daily. 8 MG capsule vit C-vit Take by mouth 0 Discontinued [id number] daily . 8 (OCUVITE) [id number]-mg Cap magnesium oxide-Mg Take by mouth. 0 Discontinued AA chelate 133 mg 8 Tab zinc sulfate Take 1 capsule 60 capsule 11 02/10/2017 Discontinued (ZINCATE) 220 (50) (220 mg total) 8 mg by mouth 2 capsuleIndications: (two) times Zinc deficiency daily. furosemide (LASIX) Take 0.5 30 tablet 5 03/05/2017 Discontinued 40 MG tablet tablets (20 mg 8 total) by mouth daily. lactulose Take 20 g by 0 Discontinued (CHRONULAC) 10 mouth 2 (two) 8 gram/15 mL times daily. 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 No ELVs in the past. We will need an EGD done here to evaluate further the nature and characteristics of varices and to decide between glue procedure or TIPS. Fatigue 09/06/2014 Last Assessment & Plan: Chronic fatigue could be related to Cirrhosis. We will do a TSH to rule out any possible thyroid insufficiency. Portal hypertension with esophageal varices 09/06/2014 Last Assessment & Plan: Latest EGD on showed grade III varices and large fundo cardiac varix. Decision between TIPS or a Glue procedure can be made after we do a repeat EGD here in the center. She is currently managed on non selective betablocker Propanolol. We recommend continuing the same treatment until a decision can be made on the procedure. Hepatic cirrhosis due to chronic hepatitis C infection 09/06/2014 Overview: SNOMED/[place] [id number] Last Assessment & Plan: Cirrhosis of liver secondary to chronic HCV was first diagnosed 15 years back, per patient, no report available. Complicated by portal hypertension as manifested as non bleeding esophageal varices and a scites. . Synthetic function is preserved by labs dated 07/18/14 (AST 38, ALT 18, Alb 2.8 Cr 0.75 Jeremiah 1.4). No INR report to calculate MELD score. An MRI and repeat labs ordered for today. Screening for malignant neoplasm 09/06/2014 Last Assessment & Plan: Risk factors for HCC include HCV and cirrhosis. Patients with cirrhosis, regardless of etiology, have a markedly increasing risk of developing hepatocellular carcinoma. We recommend HCC surveillance every 6 months. MRI and AFP will be ordered. Immunity status testing 09/06/2014 Encounters Date Type Specialty Care Team Description 07/11/2018 Telephone Hepatology Xiao Mckeon RN other 05/31/2018 Telephone Hepatology Xiao Mckeon RN other 05/13/2018 Abstract Hepatology Yvonne Atkins MA 04/07/2018 Orders Only Hepatology Kandy Castillo Screening for malignant neoplasm (Primary Dx); CARMINE Grant Hepatic cirrhosis due to chronic hepatitis C infection ( HCC) 04/07/2018 Telephone HepatKandy Linares Follow-up CARMINE Grant 03/08/2018 Abstract Hepatology Rosemarie Bui 02/25/2018 Documentation Hepatology Lissette Solorio RN 01/06/2018 Office Visit Hepatology Lynn Murguia, 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); Secondary esophageal varices without bleeding (HCC); Chronic fatigue; Portal hypertension with esophageal varices (HCC); Screening for malignant neoplasm; Immunity status testing; Hepatitis C virus infection without hepatic coma, unspecified chronicity; Nausea; Hypokalemia; Zinc deficiency; Encephalopathy; Encephalopathy chronic 12/24/2017 Telephone Hepatology Xiao Mckeon RN other 12/23/2017 Abstract Hepatology Rosemarie Bui E 12/21/2017 Telephone Hepatology Kandy Castillo Follow-up CARMINE Grant 11/30/2017 Telephone Hepatology Xiao Mckeon RN other 10/26/2017 Abstract Hepatology Rosemarie Bui E 10/25/2017 Documentation Hepatology Kandy Castillo PA-C 10/25/2017 Telephone Hepatology Kandy Castillo Follow-up CARMINE Grant 10/25/2017 Documentation Hepatology Tiffany Clemens MA 09/23/2017 Office Visit Hepatology Kandy Castillo 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); CARMINE Grant Secondary esophageal varices without bleeding (HCC); Lynn Murguia, Chronic fatigue; Portal hypertension with esophageal varices (HCC); Screening for malignant neoplasm; Immunity status testing after 07/19/2017 Family History Medical History Relation Name Comments Heart disease Brother Cancer Brother Diabetes Father Heart failure Father Cancer Sister Diabetes Sister Relation Name Status Comments Brother Brother Father Mother Sister Sister Social History Tobacco Use Types Packs/Day Years Used Date Never Smoker Smokeless Tobacco: Never Used Alcohol Use Drinks/Week oz/Week Comments No 0.0 Sex Assigned at Date Recorded Not on file Job Start Date Occupation Industry Not on file Not on file Not on file Travel History Travel Start Travel End No recent travel history available. Last Filed Vital Signs Vital Sign Reading Time Taken Blood Pressure 110/74 01/06/2018 1:04 PM CDT Pulse 82 01/06/2018 1:04 PM CDT Temperature 36.3 C (97.4 F) 01/06/2018 1:04 PM CDT Respiratory Rate 18 01/06/2018 1:04 PM CDT Oxygen Saturation 97% 01/06/2018 1:04 PM CDT Inhaled Oxygen Concentration - - Weight 63 kg (138 lb 12.8 oz) 01/06/2018 1:04 PM CDT Height 165.1 cm (5' 5") 01/06/2018 1:04 PM CDT Body Mass Index 23.1 01/06/2018 1:04 PM CDT Plan of Treatment Date Type Specialty Care Team Description 08/10/2018 Office Visit Hepatology Lynn Murguia MD [id number] [place] [address] [phone] Resource, [facility] Health Maintenance Due Date Last Done Comments INFLUENZA VACCINE 05/30/2018 Procedures Procedure Name Priority Date/Time Associated Diagnosis Comments CBC W/PLT COUNT & Routine 01/06/2018 3:21 Secondary esophageal Results for this AUTO DIFFERENTIAL PM CDT varices without procedure are in bleeding (HCC) the results Chronic fatigue section. 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) Screening for malignant neoplasm Immunity status testing Hepatitis C virus infection without hepatic coma, unspecified chronicity Nausea Hypokalemia Zinc deficiency after 07/19/2017 Results CBC with platelet count + automated diff (01/06/2018 3:21 PM CDT) WBC 5.6 3.5 - 10.5 K/L [facility] RBC 3.83 (L) 3.93 - 5.22 M/L [facility] Hemoglobin 12.0 11.2 - 15.7 GM/DL [facility] Hematocrit 36.8 34.1 - 44.9 % [facility] MCV 96.1 (H) 79.4 - 94.8 fL [facility] MCH 31.3 25.6 - 32.2 pg [facility] MCHC 32.6 32.2 - 35.5 GM/DL [facility] RDW 15.9 (H) 11.7 - 14.4 % [facility] Platelets 83 (L) 150 - 450 K/CU MM [facility] MPV 11.1 9.4 - 12.3 fL [facility] nRBC 0 0 - 0 /100 WBC [facility] % Neutros 54 % [facility] % Lymphs 36 % [facility] % Monos 8 % [facility] % Eos 2 % [facility] % Baso 1 % [facility] # Neutros 3.01 1.56 - 6.13 K/L [facility] # Lymphs 1.98 1.18 - 3.74 K/L [facility] # Monos 0.44 (H) 0.24 - 0.36 K/L [facility] # Eos 0.10 0.04 - 0.36 K/L [facility] # Baso 0.04 0.01 - 0.08 K/L [facility] Immature Granulocytes-Relative 0 0 - 1 % [facility] Specimen Blood Performing Organization Address City[facility] Phone Number [address] [address] [phone] CENTER Alpha fetoprotein (AFP), tumor marker (01/06/2018 3:21 PM CDT) Alpha-Fetoprotein 3.3 <10.0 ng/mL [facility] Specimen Blood Performing Organization Address [facility] Phone Number [address] [address] [phone] CENTER Pro-time/INR (01/06/2018 3:21 PM CDT) Protime 17.3 (H) 11.7 - 14.7 seconds [facility] INR 1.4 <=5.9 [facility] Specimen Blood Narrative Performed At [facility] RECOMMENDED COUMADIN/WARFARIN INR THERAPY RANGES STANDARD DOSE: 2.0 - 3.0 Includes: PROPHYLAXIS for venous thrombosis, systemic embolization; TREATMENT for venous thrombosis and/or pulmonary embolus. HIGH RISK: Target INR is 2.5-3.5 for patients with mechanical heart valves. Performing Organization Address City/[facility]/Zipcode Phone Number [address] [address] [phone] [place] Magnesium (01/06/2018 3:21 PM CDT) Magnesium 1.8 1.6 - 2.6 mg/dL [facility] Specimen Blood Performing Organization Address [facility] Phone Number [address] [address] [phone] [place] Hepatic function panel (01/06/2018 3:21 PM CDT) Protein, Total 8.0 6.0 - 8.3 gm/dL [facility] Albumin 3.0 (L) 3.5 - 5.0 g/dL [facility] Total Bilirubin 1.9 (H) 0.2 - 1.2 mg/dL [facility] Bilirubin, Direct 0.8 (H) 0.1 - 0.5 mg/dL [facility] Alkaline Phosphatase 122 40 - 150 U/L [facility] AST 30 5 - 34 U/L [facility] ALT 12 6 - 55 U/L [facility] Specimen Blood Narrative Performed At [facility] Specimen slightly icteric Performing Organization Address City/[facility] Phone Number [address] [address] [place] Basic Metabolic Panel (01/06/2018 3:21 PM CDT) Sodium 133 (L) 136 - 145 meq/L [facility] Potassium 3.9 3.5 - 5.1 meq/L [facility] Chloride 99 98 - 107 meq/L [facility] CO2 25 22 - 29 meq/L [facility] BUN 12 7 - 21 mg/dL [facility] Creatinine 0.97 0.57 - 1.25 mg/dL [facility] Glucose 93 70 - 105 mg/dL [facility] Calcium 9.0 8.4 - 10.2 mg/dL [facility] EGFR 54Comment: ESTIMATED GFR IS mL/min/1.73 sq m [facility] NOT ACCURATE [facility] CLEARANCE IN PREDICTING GLOMERULAR FILTRATION RATE. ESTIMATED GFR IS NOT APPLICABLE FOR DIALYSIS PATIENTS. Specimen Blood Narrative Performed At [facility] Specimen slightly icteric Performing Organization Address City/State/Zipcode Phone Number [facility] [address] [place] [address] [phone] CENTER after 07/19/2017 Insurance Payer Benefit Plan / Group Subscriber ID Type Phone Address MEDICARE MEDICARE A B xxxxxxxxxx Medicare [facility] GENERIC MEDICARE xxxxxxxxx [employer] SUPPLEMENT/INDIVIDUAL SUPPLEMENT
--- NOTE | 2018-07-20 03:24 | ER ---
Nurse's Notes [facility] Name: Whitney Villalta Age: 87 yrs Sex: Female : 1930 Arrival Date: 07/20/2018 Time: 01:37 Bed 4 Private MD: Fareed Ballesteros H Diagnosis: Contusion of left back wall of thorax Presentation: 07/20 01:37 Presenting complaint: EMS states: Fall from standing and hit her bottom with butt pain. cc3 Transition of care: patient was not received from another setting of care. Onset of symptoms was July 20, 2018. Risk Assessment: Do you want to hurt yourself or someone else? Patient reports no desire to harm self or others. Initial Sepsis Screen: Does the patient meet any 2 criteria? No. Patient's initial sepsis screen is negative. Does the patient have a suspected source of infection? No. Patient's initial sepsis screen is negative. Care prior to arrival: None. 01:37 Method Of Arrival: EMS: [facility] cc3 01:37 Acuity: KELLY 3 cc3 Triage Assessment: 01:37 General: Appears in no apparent distress. uncomfortable, Behavior is calm, cooperative, cc3 appropriate for age. Pain: Complains of pain in left flank pain. EENT: No signs and/or symptoms were reported regarding the EENT system. Neuro: Level of Consciousness is awake, alert, obeys commands, Oriented to person, place, time, situation, Appropriate for age. Cardiovascular: Denies chest pain, Patient's skin is warm and dry. Respiratory: Airway is patent Respiratory effort is even, unlabored, Respiratory pattern is regular, symmetrical. GI: Abdomen is round non-distended. : No signs and/or symptoms were reported regarding the genitourinary system. Derm: Bruising that is dark purple, on bilateral upper limbs. Musculoskeletal: Circulation, motion, and sensation intact. Range of motion: limited in bilateral legs. Historical: - Allergies: 01:37 Morphine; cc3 01:37 adhesive tapes; cc3 - Home Meds: 01:37 spironolactone 25 mg Oral tab 2 tabs daily [Active]; docusate sodium 100 mg oral cap 1 cc3 cap at bedtime [Active]; gabapentin 300 mg oral cap 1 cap 3 times per day [Active]; Iron CR Oral 28 mg twice a day [Active]; furosemide 40 mg Oral tab 1 tab once daily [Active]; magnesium oxide 250 mg Oral tab twice a day [Active]; potassium chloride 10 mEq Oral cpER 1 cap 2 times per day [Active]; sulfamethoxazole-trimethoprim Oral 2 times per day [Active]; rifaximin oral 200 mg oral 1 tab 2 times per day [Active]; - PMHx: 01:37 colon cancer; Liver disease; Pneumonia; stage 3 cirrhosis; lower extremity edema; cc3 - Immunization history:: Adult Immunizations up to date. - Social history:: Smoking status: Patient/guardian denies using tobacco, never smoked. - Ebola Screening: : No symptoms or risks identified at this time. Screenin:37 Abuse screen: Denies threats or abuse. Denies injuries from another. Nutritional cc3 screening: No deficits noted. Tuberculosis screening: No symptoms or risk factors identified. Fall Risk Ambulatory Aid- Crutches/Cane/Walker (15 pts). Gait- Impaired (20 pts.). Mental Status- Oriented to own ability (0 pts). Assessment: 01:37 General: see triage assessment. cc3 02:31 Reassessment: Patient appears in no apparent distress at this time. Patient and/or cc3 family updated on plan of care and expected duration. Pain level reassessed. Patient is alert, oriented x 3, equal unlabored respirations, skin warm/dry/pink. Patient came back from xray department. 03:24 Reassessment: Patient appears in no apparent distress at this time. Patient and/or cc3 family updated on plan of care and expected duration. Pain level reassessed. Patient is alert, oriented x 3, equal unlabored respirations, skin warm/dry/pink. Dr. Lubin discharged the patient home, no prescription given. Discharge instructions given to patient and the patient said she'll call her son to fetch her in the hospital. 03:55 Reassessment: Patient appears in no apparent distress at this time. Patient and/or cc3 family updated on plan of care and expected duration. Pain level reassessed. Patient is alert, oriented x 3, equal unlabored respirations, skin warm/dry/pink. Patient's son came and patient left ER vitally stable by wheelchair escorted by KULDIP Smalls and the patient's son. Vital Signs: 01:37 BP 114 / 70; Pulse 88; Resp 20 S; Temp 97.7(O); Pulse Ox 98% on R/A; Weight 58.97 kg cc3 (R); Height 5 ft. 5 in. (165.10 cm) (R); 02:30 BP 107 / 58; Pulse 86; Resp 20 S; Pulse Ox 97% on R/A; Pain 3/10; cc3 03:30 BP 108 / 54; Pulse 84; Resp 19 S; Pulse Ox 97% on R/A; cc3 01:37 Body Mass Index 21.63 (58.97 kg, 165.10 cm) cc3 ED Course: 01:37 Patient arrived in ED. es 01:37 Fareed Ballesteros DO is Private Physician. es 01:37 Arm band placed on right wrist. Patient notified of wait time. cc3 01:37 Patient has correct armband on for positive identification. Bed in low position. Call cc3 light in reach. Side rails up X2. wet pour mixer on. Pulse ox on. NIBP on. 01:40 Kodi Lubin MD is Attending Physician. tw4 01:41 Destiny Hall is Primary Nurse. cc3 01:44 Triage completed. cc3 02:33 X-ray completed. Patient tolerated procedure well. kw 02:33 Lumbar Spine (3 Views) XRAY In Process Unspecified. EDMS 03:55 No provider procedures requiring assistance completed. Patient did not have IV access cc3 during this emergency room visit. Administered Medications: 03:06 Not Given (Patient Refused): Tylenol 1000 mg PO once cc3 Outcome: 03:24 Discharge ordered by . tw4 03:55 Discharged to home via wheelchair, with family. cc3 03:55 Condition: stable 03:55 Discharge instructions given to patient, family, Instructed on discharge instructions, follow up and referral plans. Demonstrated understanding of instructions, follow-up care. 04:03 Patient left the ED. cc3 Signatures: Dispatcher [employer] EDHamida Ariza Kimberlee kw Davies, Jonathon RN RN jd3 Kodi Lubin MD MD tw4 Destiny Hall cc3 Corrections: (The following items were deleted from the chart) 02:21 02:19 Reassessment: Patient appears in no apparent distress at this time. No changes jd3 from previously documented assessment. Patient and/or family updated on plan of care and expected duration. Pain level reassessed. Patient is alert, oriented x 3, equal unlabored respirations, skin warm/dry/pink. jd3
--- NOTE | 2018-07-20 03:25 | EDPHYS ---
Physician Documentation [facility] Name: Whitney Villalta Age: 87 yrs Sex: Female : 1930 Arrival Date: 07/20/2018 Time: 01:37 Bed 4 Private MD: Fareed Ballesteros H ED Physician Kodi Lubin HPI: 07/20 02:03 This 87 yrs old Female presents to ER via EMS with complaints of Fall Injury. tw4 02:03 Details of fall: The patient fell from an upright position. Onset: The symptoms/episode tw4 began/occurred today. Severity of symptoms: At their worst the symptoms were moderate, in the emergency department the symptoms are unchanged. The patient has not experienced similar symptoms in the past. 02:03 Details of fall: The patient fell from an upright position, while standing, while tw4 walking. Associated injuries: The patient sustained injury to the low back. Historical: - Allergies: 01:37 Morphine; cc3 01:37 adhesive tapes; cc3 - Home Meds: 01:37 spironolactone 25 mg Oral tab 2 tabs daily [Active]; docusate sodium 100 mg oral cap 1 cc3 cap at bedtime [Active]; gabapentin 300 mg oral cap 1 cap 3 times per day [Active]; Iron CR Oral 28 mg twice a day [Active]; furosemide 40 mg Oral tab 1 tab once daily [Active]; magnesium oxide 250 mg Oral tab twice a day [Active]; potassium chloride 10 mEq Oral cpER 1 cap 2 times per day [Active]; sulfamethoxazole-trimethoprim Oral 2 times per day [Active]; rifaximin oral 200 mg oral 1 tab 2 times per day [Active]; - PMHx: 01:37 colon cancer; Liver disease; Pneumonia; stage 3 cirrhosis; lower extremity edema; cc3 - Immunization history:: Adult Immunizations up to date. - Social history:: Smoking status: Patient/guardian denies using tobacco, never smoked. - Ebola Screening: : No symptoms or risks identified at this time. ROS: 02:03 Constitutional: Negative for fever, chills, and weight loss, Cardiovascular: Negative tw4 for chest pain, palpitations, and edema, Respiratory: Negative for shortness of breath, cough, wheezing, and pleuritic chest pain, Abdomen/GI: Negative for abdominal pain, nausea, vomiting, diarrhea, and constipation, Back: Negative for injury and pain, Neuro: Negative for headache, weakness, numbness, tingling, and seizure, Psych: Negative for depression, anxiety, suicide ideation, homicidal ideation, and hallucinations. Exam: 02:03 Constitutional: This is a well developed, well nourished patient who is awake, alert, tw4 and in no acute distress. Head/Face: Normocephalic, atraumatic. Chest/axilla: Normal chest wall appearance and motion. Nontender with no deformity. No lesions are appreciated. Cardiovascular: Regular rate and rhythm with a normal S1 and S2. No gallops, murmurs, or rubs. Normal PMI, no JVD. No pulse deficits. Respiratory: Lungs have equal breath sounds bilaterally, clear to auscultation and percussion. No rales, rhonchi or wheezes noted. No increased work of breathing, no retractions or nasal flaring. Abdomen/GI: Soft, non-tender, with normal bowel sounds. No distension or tympany. No guarding or rebound. No evidence of tenderness throughout. Back: No spinal tenderness. No costovertebral tenderness. Full range of motion. Skin: Warm, dry with normal turgor. Normal color with no rashes, no lesions, and no evidence of cellulitis. MS/ Extremity: Pulses equal, no cyanosis. Neurovascular intact. Full, normal range of motion. Vital Signs: 01:37 BP 114 / 70; Pulse 88; Resp 20 S; Temp 97.7(O); Pulse Ox 98% on R/A; Weight 58.97 kg cc3 (R); Height 5 ft. 5 in. (165.10 cm) (R); 02:30 BP 107 / 58; Pulse 86; Resp 20 S; Pulse Ox 97% on R/A; Pain 3/10; cc3 03:30 BP 108 / 54; Pulse 84; Resp 19 S; Pulse Ox 97% on R/A; cc3 01:37 Body Mass Index 21.63 (58.97 kg, 165.10 cm) cc3 MDM: 01:40 Patient medically screened. tw4 02:03 Data reviewed: vital signs, EMS record. tw4 03:07 Differential diagnosis: abrasion, closed head injury, contusion, fracture. Test tw4 interpretation: by ED physician or midlevel provider: plain radiologic studies. Counseling: I had a detailed discussion with the patient and/or guardian regarding: the historical points, exam findings, and any diagnostic results supporting the discharge/admit diagnosis. Special discussion: I discussed with the patient/guardian in detail that at this point there is no indication for admission to the hospital. It is understood, however, that if the symptoms persist or worsen the patient needs to return immediately for re-evaluation. 07/20 01:41 Order name: Lumbar Spine (3 Views) XRAY tw4 Administered Medications: 03:06 Not Given (Patient Refused): Tylenol 1000 mg PO once cc3 Disposition: 07/20/18 03:24 Discharged to Home. Impression: Contusion of left back wall of thorax. - Condition is Stable. - Discharge Instructions: Contusion, Contusion, [id number]. - Medication Reconciliation Form, Thank You Letter, Antibiotic Education, Prescription Opioid Use form. - Follow up: Private Physician; When: Upon discharge from the Emergency Department; Reason: Further diagnostic work-up, Recheck today's complaints, Continuance of care. - Problem is new. - Symptoms have improved. Signatures: Dispatcher [employer] Kodi Vargas MD MD tw4 Destiny Hall cc3 Corrections: (The following items were deleted from the chart) 02:06 02:03 Associated injuries: The patient sustained no obvious injury, tw4 tw4 04:03 03:24 07/20/2018 03:24 Discharged to Home. Impression: Contusion of left back wall of cc3 thorax. Condition is Stable. Forms are Medication Reconciliation Form, Thank You Letter, Antibiotic Education, Prescription Opioid Use. Follow up: Private Physician; When: Upon discharge from the Emergency Department; Reason: Further diagnostic work-up, Recheck today's complaints, Continuance of care. Problem is new. Symptoms have improved. tw4
[2018-07-20 04:12] VITALS: TEMP 97.7
[2018-07-20 04:14] VITALS: BP 107/58; O2SAT 97
--- NOTE | 2018-07-20 07:51 | RAD REPORT ---
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 No fracture or dislocation is seen. Mild scoliosis involves the spine Moderate spondylosis involves the lumbar spine
== END 2018-07-20 04:03 | disposition home or self-care (01) ==
LOC: ER 01:25
DX: S20.222A Contusion of left back wall of thorax, initial encounter (principal); W19.XXXA Unspecified fall, initial encounter; Y93.01 Activity, walking, marching and hiking; Y92.9 Unspecified place or not applicable; Z88.5 Allergy status to narcotic agent; Z85.038 Personal history of other malignant neoplasm of large intestine; Z91.048 Other nonmedicinal substance allergy status; K74.60 Unspecified cirrhosis of liver
CPT/HCPCS: 72100; 99284

== ENCOUNTER 2018-10-24 09:15 | Day surgery (SDC) | payer OTHER ==
--- OUTSIDE RECORDS SUMMARY | 2018-10-24 09:19 | XMS REPORT | Clinical Summary ---
:1930 Author Organization [facility] Address [address] [place] [address] Care Team Providers Name Role Phone Kandy Castillo PA-C Physician Tile Applicator Ankush Levine Referring Physician Fareed Ballesteros Primary Care Provider Allergies Active Allergy Reactions Severity Noted Date [...] coma, unspecified chronicity, Nausea, Hypokalemia, Zinc deficiency docusate sodium Take 100 mg by 0 Active (COLACE) 100 MG mouth daily. capsule rifAXIMin 550 mg Tab Take 550 mg by 0 Active mouth 2 (two) times daily. lactulose Take 20 g by 0 Active (CHRONULAC) 10 mouth 3 gram/15 mL (15 mL) (three) times solution daily. cyanocobalamin Take 100 mcg 0 Discontinued (VITAMIN B-12) 1000 by mouth 8 MCG tablet daily. cholecalciferol, Take 2,000 0 Discontinued vitamin D3, 2,000 Units by mouth 8 unit Cap daily. docusate sodium Take 100 mg by 0 Discontinued (STOOL SOFTENER) 100 mouth daily. 8 MG capsule vit C-vit Take by mouth 0 Discontinued T-pqcfij-spk-om-3 daily . 8 (OCUVITE) [id number] ae-wtip-pz-mg Cap magnesium oxide-Mg Take by mouth. 0 [...] 30 ml 2-3 946 mL 15 01/06/2018 Discontinued (CHRONULAC) 10 times daily or 8 gram/15 mL as needed to solutionIndications: have [...] infection 09/06/2014 Overview: SNOMED/[place] [id number] Last Assessment & Plan: Cirrhosis of liver [...] Encounters Date Type Specialty Care Team Description 10/20/2018 Abstract Hepatology Yvonne Atkins MA 10/17/2018 Telephone Hepatology Kandy Castillo, Follow-up PA-C 09/30/2018 Abstract HepatPennie Gomez RN 09/30/2018 Telephone Hepatology Pennie Spencer RN Pending imaging 09/30/2018 Abstract Pennie Bahena RN 09/20/2018 Documentation Hepatology Xiao Mckeon RN 09/12/2018 Telephone Hepatology Xiao Mckeon RN other 08/11/2018 Telephone Hepatology Xiao Mckeon RN other 08/10/2018 Office Visit Hepatology Lynn Murguia MD 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); [facility] Screening for cancer; Hepatology Clinic E Encephalopathy; Abnormal breath sounds 07/11/2018 Telephone Hepatology Xiao Mckeon RN other 05/31/2018 Telephone Hepatology Xiao Mckeon RN other 05/13/2018 Abstract Hepatology Yvonne Atkins MA 04/07/2018 Orders Only Hepatology Kandy Castillo, Screening for malignant neoplasm (Primary Dx); PA-C 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) 04/07/2018 Telephone Hepatology Kandy Castillo, Follow-up PA-C 03/08/2018 Abstract Hepatology Rosemarie Bui E 02/25/2018 Documentation Hepatology Lissette Solorio RN 01/06/2018 Office Visit Hepatology Lynn Murguia MD Hepatic cirrhosis due to chronic hepatitis C [...] Rosemarie Bui E 12/21/2017 Telephone Hepatology Kandy Castillo, Follow-up PA-C 11/30/2017 Telephone Hepatology Xiao Mckeon RN other 10/26/2017 Abstract Hepatology Rosemarie Bui E 10/25/2017 Documentation Hepatology Kandy Castillo, PA-C 10/25/2017 Telephone Hepatology Kandy Castillo, Follow-up PA-C 10/25/2017 Documentation Hepatology Tiffany Clemens MA after 10/23/2017 Family History Medical History Relation Name Comments [...] Vital Sign Reading Time Taken Blood Pressure 94/60 08/10/2018 2:08 PM [employer] Pulse 92 08/10/2018 2:08 PM [employer] Temperature 36.3 C (97.4 F) 08/10/2018 2:08 PM [employer] Respiratory Rate 16 08/10/2018 2:08 PM [employer] Oxygen Saturation 98% 08/10/2018 2:08 PM [employer] Inhaled Oxygen Concentration - - Weight 58.2 kg (128 lb 6.4 oz) 08/10/2018 2:08 PM [employer] Height 165.1 cm (5' 5") 08/10/2018 2:08 PM [employer] Body Mass Index 21.37 08/10/2018 2:08 PM [employer] Plan of Treatment Date Type Specialty Care Team Description 02/08/2019 Office Visit Hepatology Resource, [facility] Hepatology Clinic E Procedures Procedure Name Priority Date/Time Associated Diagnosis Comments CBC W/PLT COUNT & Routine 08/10/2018 3:45 Hepatic cirrhosis Results for this AUTO DIFFERENTIAL PM [employer] due to chronic procedure are in hepatitis C the results infection (HCC) section. Screening for cancer Encephalopathy AMMONIA Routine 08/10/2018 3:45 Hepatic cirrhosis Results for this PM [employer] due to chronic procedure are in hepatitis C the results infection (HCC) section. Screening for cancer Encephalopathy ALPHA FETOPROTEIN Routine 08/10/2018 3:45 Hepatic cirrhosis Results for this (AFP), TUMOR MARKER PM [employer] due to chronic procedure are in hepatitis C the results infection (HCC) section. Screening for cancer Encephalopathy PROTHROMBIN TIME/INR Routine 08/10/2018 3:45 Hepatic cirrhosis Results for this PM [employer] due to chronic procedure are in hepatitis C the results infection (HCC) section. Screening for cancer Encephalopathy CBC W/PLT COUNT & Routine 08/10/2018 3:45 Hepatic cirrhosis Results for this AUTO DIFFERENTIAL PM [employer] due to chronic procedure are in hepatitis C the results infection (HCC) section. Screening for cancer Encephalopathy HEPATIC FUNCTION Routine 08/10/2018 3:45 Hepatic cirrhosis Results for this PANEL PM [employer] due to chronic procedure are in hepatitis C the results infection (HCC) section. Screening for cancer Encephalopathy BASIC METABOLIC PANEL Routine 08/10/2018 3:45 Hepatic cirrhosis Results for this (7) PM [employer] due to chronic procedure are in hepatitis C the results infection (HCC) section. Screening for cancer Encephalopathy CBC W/PLT COUNT & Routine 01/06/2018 3:21 [...] unspecified chronicity Nausea Hypokalemia Zinc deficiency after 10/23/2017 Results CBC with platelet count + automated diff (08/10/2018 3:45 PM [employer])Only the most recent of2 resultswithin the time period is included. WBC 5.0 3.5 - 10.5 K/L [facility] RBC 3.39 (L) 3.93 - 5.22 M/L [facility] Hemoglobin 10.7 (L) 11.2 - 15.7 GM/DL [facility] Hematocrit 33.1 (L) 34.1 - 44.9 % [facility] MCV 97.6 (H) 79.4 - 94.8 fL [facility] MCH 31.6 25.6 - 32.2 pg [facility] MCHC 32.3 32.2 - 35.5 GM/DL [facility] RDW 15.0 (H) 11.7 - 14.4 % [facility] Platelets 98 (L) 150 - 450 K/CU MM [facility] MPV 10.0 9.4 - 12.3 fL [facility] nRBC 0 0 - 0 /100 WBC [facility] % Neutros 71 % [facility] % Lymphs 14 % [facility] % Monos 12 % [facility] % Eos 2 % [facility] % Baso 1 % [facility] # Neutros 3.51 1.56 - 6.13 K/L [facility] # Lymphs 0.69 (L) 1.18 - 3.74 K/L [facility] # Monos 0.62 (H) 0.24 - 0.36 K/L [facility] # Eos 0.10 0.04 - 0.36 K/L [facility] # Baso 0.04 0.01 - 0.08 K/L [facility] Immature Granulocytes-Relative 0 0 - 1 % [facility] Specimen Blood Performing Organization Address City[facility] Phone Number [address] [address] CENTER Alpha fetoprotein (AFP), tumor marker (08/10/2018 3:45 PM [employer])Only the most recent of2 resultswithin the time period is included. Alpha-Fetoprotein 2.9 <10.0 ng/mL [facility] Specimen Blood Performing Organization Address [facility] Phone Number [address] [address] C[place] Pro-time/INR (08/10/2018 3:45 PM [employer])Only the most recent of2 resultswithin the time period is included. Protime 16.5 (H) 11.7 - 14.7 seconds [facility] INR 1.3 <=5.9 [facility] Specimen Blood Narrative Performed At RECOMMENDED COUMADIN/WARFARIN INR THERAPY [facility] RANGES STANDARD DOSE: 2.0 - 3.0 Includes: PROPHYLAXIS for venous thrombosis, systemic embolization; TREATMENT for venous thrombosis and/or pulmonary embolus. HIGH RISK: Target INR is 2.5-3.5 for patients with mechanical heart valves. Performing Organization Address City/[facility] Phone Number [facility] [address] [address] [phone] CENTER Ammonia (08/10/2018 3:45 PM [employer]) Ammonia 40 18 - 72 mol/L [facility] Specimen Blood Performing Organization Address City/[facility]/Zipcode Phone Number [address] [address] [phone] [place] Hepatic function panel (08/10/2018 3:45 PM [employer])Only the most recent of2 resultswithin the time period is included. Protein, Total 9.0 (H) 6.0 - 8.3 gm/dL [facility] Albumin 2.8 (L) 3.5 - 5.0 g/dL [facility] Total Bilirubin 1.2 0.2 - 1.2 mg/dL [facility] Bilirubin, Direct 0.7 (H) 0.1 - 0.5 mg/dL [facility] Alkaline Phosphatase 111 40 - 150 U/L [facility] AST 31 5 - 34 U/L [facility] ALT 12 6 - 55 U/L [facility] Specimen Blood Performing Organization Address City/[facility]/Zipcode Phone Number [address] [address] [place] Basic Metabolic Panel (08/10/2018 3:45 PM [employer])Only the most recent of2 resultswithin the time period is included. Sodium 133 (L) 136 - 145 meq/L [facility] Potassium 4.0 3.5 - 5.1 meq/L [facility] Chloride 100 98 - 107 meq/L [facility] CO2 27 22 - 29 meq/L [facility] BUN 20 7 - 21 mg/dL [facility] Creatinine 1.07 0.57 - 1.25 mg/dL [facility] Glucose 71 70 - 105 mg/dL [facility] Calcium 9.4 8.4 - 10.2 mg/dL [facility] EGFR 49Comment: ESTIMATED GFR IS mL/min/1.73 sq m [facility] NOT ACCURATE [facility] CLEARANCE IN PREDICTING GLOMERULAR FILTRATION RATE. ESTIMATED GFR IS NOT APPLICABLE FOR DIALYSIS PATIENTS. Specimen Blood Performing Organization Address City/State/Zipcode Phone Number [facility] [address] [place], [place] [phone] CENTER Magnesium (01/06/2018 3:21 PM CDT) Magnesium 1.8 1.6 - 2.6 mg/dL [facility] Specimen Blood Performing Organization Address City/State/Zipcode Phone Number [facility] [address] [place], [place] [phone] CENTER after 10/23/2017 Insurance Payer Benefit Plan / Group Subscriber ID Type Phone Address MEDICARE MEDICARE A B xxxxxxxxxxx Medicare [facility] GENERIC MEDICARE xxxxxxxxx [employer] SUPPLEMENT/INDIVIDUAL SUPPLEMENT
--- OUTSIDE RECORDS SUMMARY | 2018-10-24 09:27 | XMS REPORT | Continuity of Care Document ---
:1930 Author Organization Interface Problems Problem Status Onset Classification Date Comments Source Date Reported UNK Active 017 [place] DX: Active C18.9=MALIGNANT 017 [facility] NEOPLASM OF COLON, U CHANGE IN MENTAL Active STATUS 015 [facility] ABNORMAL LABS Active 015 [facility] COLON CA Active 015 [facility] 553.2 Active 014 [place] COLON RESTATING Active DX:153.9=ADENOCARC 014 [place] INOMA V10.05 Active 014 [facility] Umbilical Active Problem 04/24/2017 Data migrated hernia<sup>2</sup> 014 from [facility] on 01/28/15. Umbilical Active Problem 01/17/2018 Data migrated Medical hernia<sup>5</sup> 014 from [facility] on [facility] 01/28/15. UMB HERNIA WITHOUT Active Condition 04/27/2014 Medical MENTION 014 Group OBSTRUCTION/GANGRE NE LARGE INTESTINE Active Condition 04/27/2014 Medical CANCER 012 Group SCREENING FOR Active Condition 04/27/2014 [facility] COLON CANCER 012 Group Carcinoma of Active Problem 01/17/2018 Data migrated ascending 011 from [facility] colon<sup>1</sup> Centricity on [facility] 01/28/15. Group CARCINOMA, Active Condition 04/27/2014 [facility] ASCENDING COLON 011 Group Cancer of colon Active Problem 01/17/2018 011 [facility] CH - Chronic Active Problem 04/24/2017 hepatitis [facility] DVT (<span Resolved Problem 04/24/2017 ID="[id number]">C [facility] onfirmed</span>) Bronchitis Resolved Problem 01/17/2018 [facility] CAD - Coronary Active Problem 01/17/2018 artery disease [facility] CH - Chronic Active Problem 01/17/2018 blood Medical hepatitis<sup>2</s transfusion Group, up> 1965 [facility] Chemotherapy Resolved Problem 01/17/2018 [facility] 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 [facility] Cirrhosis of liver Active Problem 01/17/2018 [facility] Colon cancer Resolved Problem 01/17/2018 [facility] DVT (<span Resolved Problem 01/17/2018 1966 Medical ID="[id number]">C Group, onfirmed</span>)<s [place] up>3, 4</sup> SOB on Active Problem 01/17/2018 Medical exertion(<span Group, ID="[id number]"> [place] Confirmed</span>) Esophageal varices Active Problem 01/17/2018 [facility] Hepatitis C Active Problem 01/17/2018 [facility] Hernia repair Resolved Problem 01/17/2018 [facility] History of colon Active Problem 01/17/2018 cancer [facility] Incisional hernia Active Problem 01/17/2018 [facility] Kidney stones Active Problem 01/17/2018 Medical Group,[facility] Neuropathy Active Problem 01/17/2018 [facility] Pneumonia Active Problem 01/17/2018 [facility] Recurrent UTI Active Problem 01/17/2018 Medical Group Unspecified Active Diagnosis 08/26/2015 2..1. infectious disease [id number] 1. Bacterial Active Diagnosis 08/26/2015 2.0.1. infection [id number] 1. Other Active Diagnosis 08/26/2015 2.0.1. encephalopathy 565581.4.39 1. Esophageal varices Active Diagnosis 08/26/2015 2.16840.1. [id number] 1. Hepatic cirrhosis Active Diagnosis 08/26/2015 2.16840.1. [id number] 1. UTI Active Problem 08/26/2015 2.16.840.1. [id number] [id number] MALIGNANT MIGEL Active MH COLON NOS [facility] 153.9 Active MH [facility] HEPATOPULMONARY Active MH SYNDROME [facility] HX OF COLONIC Active MH MALIGNANCY [facility] URIN TRACT Active MH INFECTION NOS [facility] INCISIONAL HERNIA Active MH [facility] MALIGNANT NEOPLASM Active MH OF COLON, [facility] UNSPECIFIED PERSONAL HISTORY Active MH OF MALIGNANT [facility] NEOPLASM O CALCULUS OF KIDNEY Active MH [facility] Medications Medication Details Route Status Patient Ordering Order Source Instructions Provider Date Acetaminophen 2 tab, PO, Active 300 MG / Q6H, PRN 2016 [facility] Codeine Pain, X 7 Phosphate 30 MG day, # 56 Oral Tablet tab, 0 [Tylenol with Refill(s) Codeine #3] esmolol (ANES) Route: IV, Inactive Drug form: 2016 [facility] INJ, ONCE, Stop date: 08/03/17 13:22:00 AUTO BODY REPAIR TECHNICIAN ondansetron Route: IV, Inactive (ANES) Drug form: 2016 [facility] INJ, ONCE, Stop date: 08/03/17 13:07:00 AUTO BODY REPAIR TECHNICIAN propofol (ANES) Route: IV, Inactive Drug form: 2016 [facility] INJ, ONCE, Stop date: 08/03/17 13:07:00 AUTO BODY REPAIR TECHNICIAN lidocaine Route: IV, Inactive (ANES) Drug form: 2016 [facility] INJ, ONCE, Stop date: 08/03/17 13:07:00 AUTO BODY REPAIR TECHNICIAN ciprofloxacin Route: IV, Inactive (ANES) Drug form: 2016 [facility] INJ, ONCE, Stop date: 08/03/17 13:07:00 AUTO BODY REPAIR TECHNICIAN dexamethasone Route: IV, Inactive (ANES) Drug form: 2016 [facility] INJ, ONCE, Stop date: 08/03/17 13:07:00 AUTO BODY REPAIR TECHNICIAN fentaNYL (ANES) Route: IV, Inactive Drug form: 2016 [facility] INJ, ONCE, Stop date: 08/03/17 13:02:00 AUTO BODY REPAIR TECHNICIAN Calcium 1,000 mL, Inactive Chloride 0.0014 Rate: 25 2016 MEQ/ML / ml/hr, Infuse Potassium over: 40 hr, Chloride 0.004 Route: IV, MEQ/ML / Sodium Dosing Weight Chloride 0.103 74.091 kg, MEQ/ML / Sodium Total Volume: Lactate 0.028 1,000, Start MEQ/ML date: Injectable 08/03/17 Solution 12:12:00 AUTO BODY REPAIR TECHNICIAN, Duration: 30 day, Stop date: 09/02/17 12:11:00 AUTO BODY REPAIR TECHNICIAN, 1.86, m2 vancomycin Route: IV, Inactive (ANES) 1000 mg Drug form: 2016 [facility] INJ, Start date: 08/03/17 12:10:00 AUTO BODY REPAIR TECHNICIAN, Stop date: 08/03/17 13:10:00 AUTO BODY REPAIR TECHNICIAN Lactated Route: IV, Inactive Ringers Total Volume: 2016 [facility] Injection IV 1,000, Start (ANES) 1000 mL date: 08/03/17 12:10:00 AUTO BODY REPAIR TECHNICIAN, Stop date: 08/03/17 13:10:00 AUTO BODY REPAIR TECHNICIAN Ceftriaxone 1 gm, Route: No Longer IVPB, Q12H, Active 2016 [facility] Dosing Weight 74.091, kg, Start date: 08/02/17 21:00:00 AUTO BODY REPAIR TECHNICIAN, Duration: 24 hr, Stop date: 08/03/17 9:00:00 AUTO BODY REPAIR TECHNICIAN, ABX Indication: Urinary Tract Infection phenylephrine Route: IV, Inactive (ANES) Drug form: 2016 [facility] INJ, ONCE, Stop date: 04/21/17 10:51:00 CDT ondansetron Route: IV, Inactive (ANES) Drug form: 2016 [facility] INJ, ONCE, Stop date: 04/21/17 10:41:00 CDT dexamethasone Route: IV, Inactive (ANES) Drug form: 2016 [facility] INJ, ONCE, Stop date: 04/21/17 10:41:00 CDT ceFAZolin Route: IV, Inactive (ANES) Drug form: 2016 [facility] INJ, ONCE, Stop date: 04/21/17 10:41:00 CDT lidocaine Route: IV, Inactive (ANES) Drug form: 2016 [facility] INJ, ONCE, Stop date: 04/21/17 10:41:00 CDT propofol (ANES) Route: IV, Inactive Drug form: 2016 [facility] INJ, ONCE, Stop date: 04/21/17 10:41:00 CDT fentaNYL (ANES) Route: IV, Inactive Drug form: 2016 [facility] INJ, ONCE, Stop date: 04/21/17 10:41:00 CDT acetaminophen Route: IV, Inactive (ANES) (ANES) Drug form: 2016 [facility] INJ, Start date: 04/21/17 10:35:00 CDT, Stop date: 04/21/17 11:35:00 CDT sodium chloride Route: IV, Inactive 0.9% 500 ml INJ Total Volume: 2016 [facility] (ANES) 500, Start date: 04/21/17 10:08:00 CDT, Stop date: 04/21/17 11:08:00 CDT Calcium 1,000 mL, Inactive Chloride 0.0014 Rate: 25 2016 [facility] MEQ/ML / ml/hr, Infuse Potassium over: 40 hr, Chloride 0.004 Route: IV, MEQ/ML / Sodium Dosing Weight Chloride 0.103 74.545 kg, MEQ/ML / Sodium Total Volume: Lactate 0.028 1,000, Start MEQ/ML date: Injectable 04/21/17 Solution 9:53:00 CDT, Duration: 30 day, Stop date: 05/21/17 9:52:00 CDT Ocuvite 1 tab, PO, Active Daily, 0 2016 [facility] Refill(s) Furosemide 40 40 mg=1 tab, Active MG Oral Tablet PO, Daily, 0 2016 [facility] Refill(s) Vitamin D3 2000 2,000 Active intl units oral IntlUnit=1 2016 [facility] tablet tab, PO, Daily, 0 Refill(s) Albuterol 0.833 3 mL, Route: Inactive MG/ML / NEB, Drug 2016 [facility] Ipratropium Form: SOLN, [place] 0.167 Dosing Weight MG/ML Inhalant 76.364, kg, Solution ONCE, STAT, Start date: 02/23/17 9:22:00 CDT, Stop date: 02/23/17 9:22:00 CDTNotes: (Same as: Nolbertob) Sodium Chloride 500 mL, Rate: Inactive 0.154 MEQ/ML 25 ml/hr, 2016 [facility] Injectable Infuse over: Solution 20 hr, Route: IV, Dosing Weight 76.364 kg, Total Volume: 500, Start date: 02/23/17 9:22:00 CDT, Duration: 1 day, Stop date: 02/24/17 9:21:00 CDT Lasix 20 mg, 1 tab, No Longer Route: PO, Active 2014 [facility] Drug form: TAB, Daily, Dosing Weight 73.295, kg, Start date: 08/08/15 9:00:00, Duration: 30 day, Stop date: 09/06/15 9:00:00Notes: (Same as: Lasix) May cause GI upset. Give with food or milk. Spironolactone 12.5 mg, 0.5 No Longer tab, Route: Active 2014 [facility] PO, Drug form: TAB, Daily, Dosing Weight 73.295, kg, Start date: 08/08/15 9:00:00, Duration: 30 day, Stop date: 09/06/15 9:00:00Notes: (Same As: Aldactone) gabapentin 300 300 mg, 1 Inactive MG Oral Capsule cap, Route: 2014 PO, Drug form: CAP, BID, Dosing Weight 73.295, kg, Start date: 08/07/15 17:00:00, Duration: 30 day, Stop date: 09/06/15 9:00:00Notes: (Same as: Neurontin) heparin flush 500 unit, 5 Inactive mL, Route: 2014 IVP, Drug form: SOLN, Q30D, Start date: 08/07/15 13:00:00, Duration: 30 day, Stop date: 09/06/15 9:00:00Notes: (Same as: Heparin Lock Flush) sodium chloride 20 mL, Route: Inactive IVP, Start 2014 [facility] date: 08/07/15 12:19:00, Duration: 30 day, Stop date: 09/06/15 12:18:00, PRN Line FlushNotes: preservative free. sodium chloride 10 mL, Route: Inactive IVP, Start 2014 [facility] date: 08/07/15 12:18:00, Duration: 30 day, Stop date: 09/06/15 12:17:00, PRN Line FlushNotes: preservative free. ciprofloxacin 500 mg=1 tab, Active 500 mg oral PO, Q12H, X 2014 [facility] tablet 10 day, # 20 tab, 0 Refill(s) Cephalexin 500 500 mg=1 cap, Inactive MG Oral Capsule PO, TID, X 10 2014 [Keflex] day, # 30 cap, 0 Refill(s) Docusate Sodium 100 mg, 1 Inactive 100 MG Oral cap, Route: 2014 [facility] Capsule PO, Drug [Colace] form: CAP, Daily, Dosing Weight 73.295, kg, PRN Constipation, Start date: 08/07/15 11:09:00, Duration: 30 day, Stop date: 09/06/15 11:08:00Notes : (Same as: Colace) (Do Not Crush) Ibuprofen 400 mg, 1 Inactive tab, Route: 2014 [facility] PO, Drug form: TAB, ONCE, Dosing Weight 73.295, kg, PRN Headache 1-5, Start date: 08/06/15 21:10:00, Stop date: 08/06/15 21:10:00Notes : (Same as: Motrin) "Do Not Crush" Give with food. Lasix PO, Daily, 0 Active Refill(s) 2014 [facility] Rocephin 1 gm, Route: No Longer IVPB, Active 2014 [facility] [id number], Dosing Weight 73.295, kg, Start date: 08/06/15 9:00:00, Duration: 30 day, Stop date: 09/04/15 9:00:00Notes: (Same As: Rocephin). Use with 100 mL NS and infuse over 30 min MEDICATION WASTE Product Size: 1000 mg Product Wasted: ___ mg Lactulose 10 gm, 15 ml, Inactive Route: PO, 2014 [facility] Drug Form: SYRP, Dosing Weight 73.295, kg, ONCE, Start date: 08/06/15 3:49:00, Stop date: 08/06/15 3:49:00Notes: (Same as:Chronulac) Ondansetron 4 mg, 2 mL, No Longer Route: IVP, Active 2014 [facility] Drug form: INJ, Q6H, Dosing Weight 73.636, kg, PRN Nausea & Vomiting, Start date: 08/06/15 3:29:00, Duration: 30 day, Stop date: 09/05/15 3:28:00Notes: (Same as: Clint) MEDICATION WASTE Product Size: 4 mg Product Wasted: ___ mg Acetaminophen 325 mg, 1 No Longer tab, Route: Active 2014 [facility] PO, Drug form: TAB, Q4H, Dosing Weight 73.636, kg, PRN Pain Score 4-6, Start date: 08/06/15 3:29:00, Duration: 30 day, Stop date: 09/05/15 3:28:00Notes: Do not exceed 4 gm/day. (Same as: Tylenol) Morphine 2 mg, Route: No Longer IVP, Q4H, Active 2014 [facility] Dosing Weight 73.636, kg, PRN Pain Score 7-10, Start date: 08/06/15 3:29:00, Duration: 30 day, Stop date: 09/05/15 3:28:00 Aspirin 325 mg, 1 No Longer tab, Route: Active 2014 [facility] PO, Drug form: ECTAB, Q24H, Dosing Weight 73.636, kg, Start date: 08/06/15 3:00:00, Duration: 30 day, Stop date: 09/04/15 3:00:00Notes: (Do Not Crush) Do not crush or chew. Saline Flush 10 mL, Route: No Longer 0.9% IVP, Drug Active 2014 [facility] Form: INJ, Dosing Weight 75.455, kg, PRN, PRN Line Flush, Start date: 08/05/15 19:05:00, Duration: 30 day, Stop date: 09/04/15 19:04:00Notes : (Same as: BD Posiflush) Docusate Sodium 100 mg=1 cap, Active 100 MG Oral PO, Daily, as 2013 [facility] Capsule needed for [Colace] constipation, # 20 cap, 0 Refill(s) gabapentin 300 300 mg=1 cap, Active MG Oral Capsule PO, BID, # 90 2013 [facility] cap, 0 Refill(s) tramadol 50 mg=1 tab, Active hydrochloride PO, Q6H, 2013 [facility] 50 MG Oral Pain, # 40 Tablet tab, 0 Refill(s) Ibuprofen 400 400 mg, 1 No Longer MG Oral Tablet tab, Route: Active 2013 [facility] PO, Drug form: TAB, Q6H, Dosing Weight 64.545, kg, PRN as needed for pain, Start date: 04/19/14 14:09:00, Duration: 30 day, Stop date: 05/19/14 14:08:00Notes : (Same as: Motrin) "Do Not Crush" Give with food. Ibuprofen 600 mg, Inactive Route: PO, 2013 Q6H, Dosing Weight 64.545, kg, PRN Severe Pain, Start date: 04/19/14 14:09:00, Duration: 30 day, Stop date: 05/19/14 14:08:00 hydromorphone 0.5 mg, 0.5 No Longer mL, Route: Active 2013 [facility] IV, Drug form: INJ, Q2H, PRN Pain, Start date: 04/18/14 17:55:00, Duration: 30 day, Stop date: 05/18/14 17:54:00 Ibuprofen 600 mg, Inactive Route: PO, 2013 Q6H, Dosing Weight 64.545, kg, PRN as needed for pain, Start date: 04/18/14 17:02:00, Duration: 30 day, Stop date: 05/18/14 17:01:00 Docusate Sodium 100 mg, 1 No Longer 100 MG Oral cap, Route: Active 2013 [facility] Capsule PO, Drug form: CAP, BID, Dosing Weight 64.545, kg, Start date: 04/18/14 17:00:00, Duration: 30 day, Stop date: 05/18/14 9:00:00Notes: (Same as: Colace) (Do Not Crush) Ofirmev 1,000 mg, 100 Inactive mL, Route: 2013 [facility] IV, Drug form: INJ, Q6H, Dosing Weight 65.909, kg, for > or=50 kg, Start date: 04/18/14 12:00:00, Duration: 1 day, Stop date: 04/19/14 6:00:00Notes: Infuse over 15 minutes Do not exceed 4gm/day of acetaminophen Saline Flush 5 ml, Route: No Longer 0.9% IVP, Drug Active 2013 [facility] Form: INJ, Dosing Weight 64.545, kg, PRN, PRN Line Flush, Start date: 04/18/14 10:16:00, Duration: 30 day, Stop date: 05/18/14 10:15:00Notes : Same as: BD Posiflush Sterile Sodium Chloride 1,000 mL, No Longer 0.154 MEQ/ML Rate: 125 Active 2013 [facility] Injectable ml/hr, Infuse Solution over: 8 hr, Route: IV, Dosing Weight 64.545 kg, Total Volume: 1,000, Start date: 04/18/14 10:16:00, Duration: 30 day, Stop date: 05/18/14 10:15:00 Ondansetron 4 mg, 2 mL, No Longer Route: IVP, Active 2013 [facility] Drug form: INJ, Q6H, Dosing Weight 64.545, kg, PRN Nausea & Vomiting, Start date: 04/18/14 10:16:00, Duration: 30 day, Stop date: 05/18/14 10:15:00Notes : (Same as: Zofran) Acetaminophen 1 tab, Route: Inactive 325 MG / PO, Drug 2013 [facility] Hydrocodone Form: TAB, Bitartrate 5 MG Dosing Weight Oral Tablet 65.909, kg, Q4H, PRN Pain Score 1-3, Start date: 04/18/14 10:16:00, Duration: 30 day, Stop date: 05/18/14 10:15:00Notes : (Same as: [place] 325/5) Do not exceed 4gm/day of acetaminophen . Cefoxitin 2 gm, Route: No Longer IVPB, ONCALL, Active 2013 [facility] Dosing Weight 64.545, kg, Start date: 04/13/14 13:00:00, Duration: 30 day, Stop date: 05/13/14 12:59:00Notes : (Same As: Mefoxin) Naloxone 0.1 mg, Inactive Route: IVP, 2013 [facility] Q2MIN, Dosing Weight 65.909, kg, PRN Narcotic Reversal, Start date: 03/13/14 11:16:00, Duration: 4 doses or times, Stop date: Limited # of times Flumazenil 0.2 mg, Inactive Route: IVP, 2013 [facility] PRN, Dosing Weight 65.909, kg, PRN Other -See Comment, Start date: 03/13/14 11:16:00, Duration: 1 doses or times, Stop date: Limited # of times Sodium Chloride 1,000 mL, Inactive 0.154 MEQ/ML Rate: 25 2013 [facility] Injectable ml/hr, Infuse Solution over: 40 hr, Route: IV, Dosing Weight 65.909 kg, Total Volume: 1,000, Start date: 03/13/14 9:59:00, Duration: 30 day, Stop date: 04/12/14 9:58:00 Coconut oil Coconut oil, Active Refill(s) 0 2013 ibandronic acid 150 mg=1 tab, Active 150 MG Oral PO, qMonth, # 2013 Tablet [Boniva] 1 tab, 0 Refill(s) HM VITAMIN D3 Active Medical 2000 UNIT CAPS 2013 Group ALDACTONE 25 MG one by mouth Active Medical TABS once daily 2013 Group GABAPENTIN 300 one by mouth Active Medical MG CAPS twice daily 2013 Group BONIVA 150 MG one tablet Active Medical TABS once per 2013 Group month B-12 2500 MCG one by mouth Active Medical TABS once daily 2013 Group MOTRIN IB 200 prn Active Medical MG TABS 2013 Group COCONUT OIL OIL two teaspoons Active Medical daily 2013 Group ALDACTONE 25 MG one by mouth Active Medical TABS once daily 2013 Group GABAPENTIN 300 one by mouth Active Medical MG CAPS twice daily 2013 Group Propranolol HCl 1 tablet Orally Active 20 mg Orally [facility] 2.16.840.1 daily .223925.4. [id number] 68 Gabapentin 1 capsule Orally Active 300 MG Orally Jus 2.16.840.1 twice a day .175712.4. (bid) 68 B-12 Unknown Sublingual Active 2500 MCG Jus 2.16.840.1 Sublingual .169492.4. 68 Ocuvite 1 tablet Orally Active Orally daily Jus 2.16.840.1 .876329.4. 68 Lasix 1 tablet Orally Active 40 MG Orally Jus 2.16.840.1 Once a day .515573.4. 68 Ciprofloxacin 5 ml Orally Active 500 MG/5ML Jus 2.840.1 (10%) Orally .442922.4. Twice a day 68 Spironolactone 1 tablet Orally Active 25 MG Orally Jus 2.16.840.1 daily .220442.4. 68 Caltrate 600+D 1 tablet with Orally Active 600-400 Jus 2.840.1 food MG-UNIT .177825.4. Orally Once a day Allergies, Adverse Reactions, Alerts Substance Category Reaction Severity Reaction Status Date Comments Source type Reported MORPHINE Drug MORPHINE allergy 2 Medical Group morphine<s Assertion Drug Active Data up>1</sup> allergy 2 [facility] [place] [facility] on 12/27/14. Originally documented as MORPHINE. Hallucinatio ns Adhesive Adverse rash Adverse Active 2.16.840. Tape Reaction Reaction 5 1.060211. 4.391 Morphine Adverse Info Not Adverse Active 2.16.840. Sulfate Reaction Available Reaction 5 1.039284. 4.391 morphine Assertion Drug Active allergy [place] Tape Assertion Drug Active allergy Medical Group linezolid Assertion Drug Active allergy Medical Group Immunizations Immunization Date Given Site Status Last Updated Comments Source Results Order Name Results Value Reference Date Interpretation Comments Source Range URINE AND POC UA Nit Negative Negative 09/27 Medical STOOL /2017 Group *NA* (09/27/17 3:22 PM) URINE AND POC UA Negative Negative 09/27 Medical STOOL LeukEst Group *NA* (09/27/17 3:22 PM) URINE AND POC UA Uro 2.0 EU/dL 0.1 - 1.0 09/27 Medical STOOL Group URINE AND POC UA Glu Negative Negative 09/27 Medical STOOL mg/dL mg/dL Group URINE AND POC UA Ket Trace Negative 09/27 Medical STOOL mg/dL mg/dL Group URINE AND POC UA Prot Negative Negative 09/27 Medical STOOL mg/dL mg/dL Group URINE AND POC UA pH 6.0 5.0 - 8.0 09/27 Medical STOOL Group URINE AND POC UA Bld Trace Negative 09/27 Medical STOOL Group *NA* (09/27/17 3:22 PM) URINE AND POC UA Bili Small Negative 09/27 Medical STOOL Group *ABN* (09/27/17 3:22 PM) URINE AND POC UA SG 1.020 <=1.030 09/27 Medical STOOL Group URINE AND POC UA Clear Clear 09/27 Medical STOOL Turbidity Group *NA* (09/27/17 3:22 PM) URINE AND POC UA Color Dark 09/27 Medical STOOL yellow Group HEMATOLOGY Lymphocytes 36.1 % 20.0 - 08/03 40.0 [facility] HEMATOLOGY Eosinophils 1.2 % 0.0 - 4.0 08/03 [facility] HEMATOLOGY Monocytes 5.4 % 2.0 - 12.0 08/03 [facility] HEMATOLOGY Basophils 0.6 % 0.0 - 1.0 08/03 [facility] HEMATOLOGY Segs 56.7 % 45.0 - 08/03 75.0 /2016 [facility] HEMATOLOGY Monocytes # 0.2 K/CMM 0.0 - 0.8 08/03 [facility] HEMATOLOGY Lymphocytes 1.0 K/CMM 1.0 - 5.5 08/03 [facility] HEMATOLOGY Segs-Bands # 1.6 K/CMM 1.5 - 8.1 08/03 [facility] HEMATOLOGY MPV 9.2 fL 7.4 - 10.4 08/03 [facility] HEMATOLOGY RDW 16.5 % 11.5 - 08/03 14.5 [facility] HEMATOLOGY Platelet 62 K/CMM 133 - 450 08/03 [facility] HEMATOLOGY Hct 39.3 % 36.0 - 08/03 MH 48.0 /2017 [facility] HEMATOLOGY Hgb 13.2 g/dL 12.0 - 08/03 MH 16.0 /2016 [facility] HEMATOLOGY RBC 4.14 M/CMM 4.20 - 08/03 MH 5.40 /2016 [facility] HEMATOLOGY MCH 31.9 pg 27.0 - 08/03 MH 31.0 /2016 [facility] HEMATOLOGY MCV 95.1 fL 80.0 - 08/03 MH 98.0 /2016 [facility] MCHC 33.6 g/dL 32.0 - 08/03 MH 36.0 /2016 [facility] HEMATOLOGY WBC 2.8 K/CMM 3.7 - 10.4 08/03 MH [facility] Renal Renal Patient Name: EDGARD DÍAZ 08/03 - pyelogram pyelogram /2016 - [facility] retrograde retrograde : 1930; Age: 86 years Female DX DX MR: [id number] Read by: Thelma Chopra MD Dictated Date/time: 08/03/17 18:54 Study: Renal pyelogram retrograde DX 08/03/2017 3:09 PM AUTO BODY REPAIR TECHNICIAN Electronically Signed by: Thelma Chopra MD 08/03/17 18 :55 FINAL REPORT CLINICAL INDICATION: bilateral lithotripsy Bilateral stent placement - Fluoro time 2.22 min Dose 17.35 mgy OEC #3 OR 4 COMPARISON: None FINDINGS: Limited intraoperative fluoroscopic images provided for retrograde pyelography. Contrast administration demonstrates moderate bilateral hydronephrosis. Subsequently bilateral ureteral stents were placed. Refer to operative report for full details. SL: VIN[facility] CHEM PANEL eGFR 59 08/02 Result Comment: The eGFR is calculated using the CKD-EPI formula. In most young, healthy individuals the eGFR will be >90 mL/ min/1.73m2. The eGFR declines with age. An eGFR of 60-89 may be normal in MH mL/min/1. /2016 some populations, particularly the elderly, for whom the CKD-EPI formula has not been extensively validated. Use of the eGFR is not recommended in the following populations: [facility] 3m2 Individuals with unstable creatinine concentrations, including patients and those with serious co-morbid conditions. Patients with extremes in muscle mass or diet. The data above are obtained from the National Kidney Disease Education Program (NKDEP) which additionally recommends that when the eGFR is used in patients with extremes of body mass index for purposes of drug dosing, the eGFR should be multiplied by the estimated BMI. CHEM PANEL Calcium Lvl 8.2 mg/dL 8.5 - 10.5 08/02 [facility] CHEM PANEL CO2 23 meq/L 24 - 32 08/02 [facility] CHEM PANEL Glucose Lvl 87 mg/dL 70 - 99 08/02 [facility] CHEM PANEL BUN 11 mg/dL 7 - 22 08/02 [facility] CHEM PANEL Chloride Lvl 105 meq/L 95 - 109 08/02 [facility] CHEM PANEL Potassium 3.4 meq/L 3.5 - 5.1 08/02 Lvl [facility] CHEM PANEL Creatinine 0.88 mg/dL 0.50 - 08/02 Lvl 1. [facility] CHEM PANEL Sodium Lvl 138 meq/L 135 - 145 08/02 [facility] CHEM PANEL AGAP 13.4 meq/L 10.0 - 08/02 20.0 [facility] CHEM PANEL Total 7.0 g/dL 6.4 - 8.4 08/02 [facility] CHEM PANEL Albumin Lvl 2.4 g/dL 3.5 - 5.0 08/02 [facility] CHEM PANEL Alk Phos 131 unit/L 39 - 136 08/02 [facility] CHEM PANEL AST 32 unit/L 0 - 37 08/02 [facility] CHEM PANEL ALT 20 unit/L 0 - 65 08/02 [facility] CHEM PANEL Bili Total 1.8 mg/dL 0.2 - 1.3 08/02 [facility] CHEM PANEL Bili Direct 0.3 mg/dL 0.0 - 0.3 08/02 [facility] CHEM PANEL Bili 1.5 mg/dL 0.0 - 1.0 08/02 [facility] CHEM PANEL A/G Ratio 0.5 0.7 - 1.6 08/02 [facility] CHEM PANEL Globulin 4.6 g/dL 2.7 - 4.2 08/02 [facility] HEMATOLOGY RBC 3.92 M/CMM 4.20 - 12/ MH 5.40 [facility] HEMATOLOGY WBC 5.1 K/CMM 3.7 - 10.4 08/02 [facility] HEMATOLOGY Hgb 12.3 g/dL 12.0 - 08/02 16.0 /2016 [facility] HEMATOLOGY RDW 15.9 % 11.5 - 12/ MH 14.5 /2016 [facility] MCHC 33.4 g/dL 32.0 - 12/ MH 36.0 /2016 [facility] MCH 31.3 pg 27.0 - 12/ MH 31.0 [facility] Hct 36.7 % 36.0 - 12/ MH 48.0 /2016 [facility] HEMATOLOGY MCV 93.6 fL 80.0 - 12/ MH 98.0 /2016 [facility] HEMATOLOGY MPV 8.9 fL 7.4 - 10.4 12/ /2016 [facility] Platelet 82 K/CMM 133 - 450 12/ [facility] HEMATOLOGY INR 1.49 0.85 - 08/02 MH 1.17 /2016 [facility] HEMATOLOGY PT 18.1 s 12.0 - 08/02 14.7 [facility] PTT 33.0 s 22.9 - 08/02 35.8 [facility] HEMATOLOGY Segs-Bands # 2.6 K/CMM 1.5 - 8.1 08/02 [facility] HEMATOLOGY Basophils 0.8 % 0.0 - 1.0 / /2016 [facility] HEMATOLOGY Lymphocytes 1.8 K/CMM 1.0 - 5.5 / MH # /2017 [facility] HEMATOLOGY Eosinophils 0.2 K/CMM 0.0 - 0.5 / MH # /2016 [facility] HEMATOLOGY Monocytes # 0.5 K/CMM 0.0 - 0.8 08/02 [facility] HEMATOLOGY Segs 51.3 % 45.0 - 12/ MH 75.0 [facility] HEMATOLOGY Monocytes 10.3 % 2.0 - 12.0 / [facility] HEMATOLOGY Lymphocytes 34.4 % 20.0 - 12/ MH 40.0 /2016 [facility] HEMATOLOGY Eosinophils 3.2 % 0.0 - 4.0 08/02 [facility] ELECTROLYT AGAP 14.3 meq/L 10.0 - 04/13 ES 20.0 /2016 [facility] ELECTROLYT eGFR 46 04/13 Result Comment: The eGFR is calculated using the CKD-EPI formula. In most young, healthy individuals the eGFR will be >90 mL/ min/1.73m2. The eGFR declines with age. An eGFR of 60-89 may be normal in MH ES mL/min/1.7 /2017 some populations, particularly the elderly, for whom the CKD-EPI formula has not been extensively validated. Use of the eGFR is not recommended in the following populations: [facility] 3m2 Individuals with unstable creatinine concentrations, including patients and those with serious co-morbid conditions. Patients with extremes in muscle mass or diet. The data above are obtained from the National Kidney Disease Education Program (NKDEP) which additionally recommends that when the eGFR is used in patients with extremes of body mass index for purposes of drug dosing, the eGFR should be multiplied by the estimated BMI. ELECTROLYT Creatinine 1.10 mg/dL 0.50 - 04/13 ES Lvl 1.40 /2016 [facility] ELECTROLYT BUN 13 mg/dL 7 - 22 04/13 [facility] ELECTROLYT Potassium 4.3 meq/L 3.5 - 5.1 04/13 ES Lvl /2016 [facility] ELECTROLYT Sodium Lvl 142 meq/L 135 - 145 04/13 [facility] ELECTROLYT Chloride Lvl 107 meq/L 95 - 109 04/13 [facility] ELECTROLYT CO2 25 meq/L 24 - 32 04/13 [facility] ELECTROLYT Calcium Lvl 9.3 mg/dL 8.5 - 10.5 04/13 [facility] ELECTROLYT Glucose Lvl 101 mg/dL 70 - 99 04/13 [facility] HEMATOLOGY Eosinophils 0.2 K/CMM 0.0 - 0.5 04/13 MH # /2017 [facility] HEMATOLOGY Basophils # 0.1 K/CMM 0.0 - 0.2 04/13 [facility] HEMATOLOGY Monocytes # 0.6 K/CMM 0.0 - 0.8 04/13 [facility] HEMATOLOGY Lymphocytes 1.8 K/CMM 1.0 - 5.5 04/13 [facility] HEMATOLOGY Segs-Bands # 3.0 K/CMM 1.5 - 8.1 04/13 [facility] HEMATOLOGY Basophils 0.9 % 0.0 - 1.0 04/13 [facility] HEMATOLOGY Monocytes 10.4 % 2.0 - 12.0 04/13 [facility] HEMATOLOGY Eosinophils 3.0 % 0.0 - 4.0 04/13 [facility] HEMATOLOGY Segs 53.7 % 45.0 - 04/13 75.0 /2017 [facility] HEMATOLOGY Lymphocytes 32.0 % 20.0 - 04/13 MH 40.0 /2016 [facility] HEMATOLOGY INR 1.27 0.85 - 04/13 MH 1.17 /2016 [facility] HEMATOLOGY PT 16.2 s 12.0 - 04/13 14.7 [facility] MPV 8.9 fL 7.4 - 10.4 04/13 [facility] RDW 15.4 % 11.5 - 04/13 14.5 [facility] Platelet 79 K/CMM 133 - 450 04/13 [facility] MCH 32.2 pg 27.0 - 08 31.0 /2016 [facility] MCHC 33.3 g/dL 32.0 - 04/13 36.0 /2016 [facility] RBC 4.00 M/CMM 4.20 - 04/13 5.40 /2016 [facility] MCV 96.5 fL 80.0 - 04/13 98.0 /2016 [facility] Hct 38.6 % 36.0 - 04/13 48.0 [facility] Hgb 12.9 g/dL 12.0 - 04/13 16.0 [facility] WBC 5.6 K/CMM 3.7 - 10.4 04/13 [facility] PTT 28.2 s 22.9 - 04/13 35.8 [facility] PET CT PET CT Patient Name: EDGARD DÍAZ [birth year]04 - Colorectal Colorectal /2016 - [facility] CA CA restaging : 1930; Age: 86 years y/o Female restaging MR: [id number] Read by: Williams Reynolds MD Dictated Date/time: 03/04/17 13:56 Electronically Signed by: Williams Reynolds MD 03/04/17 14:33 FINAL REPORT Study: PET CT Colorectal CA restaging 03/04/2017 10:21 AM CDT Ordering Physician: Galdino Ureña MD Clinical Indication: C18.9 Malignant neoplasm of colon, unspecified - DLP =735.36 mGy-cm, CTDIvol=8.27 mGy; Comparison: 03/24/[address] TECHNIQUE: Positron emission tomography imaging is performed 59 minutes after administration of 13.78 mCi of F-18 labeled FDG IV at the left antecubital vein , from the skull base to the mid thigh region. PET image s were reviewed in the axial, coronal and sagittal orthogonal projections. Non-contrast enhanced CT imaging was for performed for attenuation correction, localization and limited diagnostic purposes. Serum glucose: 106 mg/dL. Dose: The total exam DLP is 735.36 mGy-cm. FINDINGS: NECK: There are no foci of abnormal metabolic activity. Wire fixation at the spinolaminar junction at C5 and C6 is noted. CHEST: There is interval demonstration of a small focus of increased uptake at the EG junction (SUV max 5.9). Otherwise, no additional areas of abnormal FDG uptake are noted. Pleuroparenchymal scarring associated with nonspecific patchy groundglass parenchymal opacity is noted bilaterally unchanged. Cicatricial atelectasis with traction bronchiectasis at the lateral aspect of the right upper lobe as well as the lateral segment of the right middle lobe are again noted unchanged. Chronic volume loss at the basal lingula unchanged. Left pleural fluid collection incrementally decreased in size. ABDOMEN: There are no foci of abnormal metabolic activity. Interval resolution of perisplenic fluid. Interval near-complete resolution of perihepatic free fluid. Interval resolution of fluid at the les ser sac. Hepatic cirrhosis and splenomegaly. Varices. Bilateral renal calculi are noted intervally increased in size and number of calculi at the left kidney aggregated at the inferior pole collecting s ystem. There is interval enlargement of a calculus measuring 5 x 10 mm at the mid right kidney. There is a 5 mm calculus present at the proximal right ureter. Postoperative changes are noted at the righ t colon. Physiologic activity is noted at the hepatic flexure and proximal transverse colon. PELVIS: There are no foci of abnormal metabolic activity. Sigmoid diverticulosis. Small amount of free fluid at the pelvis decreased from the previous exam. There is mild to moderate urinary bladder wa ll thickening and trabeculation accentuated by incomplete distention which could represent chronic cystitis. BONES: There are no foci of abnormal metabolic activity. Thoracolumbar spondylosis and lumbar degenerative disc disease. Physiologic F-18 labeled FDG distribution is noted in the brain, heart, liver, spleen, gastrointestinal and genitourinary tracts. IMPRESSION: 1. There is interval demonstration of a focus of FDG uptake at the EG junction which is likely physiologic or related to varices. Otherwise, no abnormal metabolic activity on F-18 labeled FDG-PET CT imaging examination to suggest malignancy. 2.Bilateral renal calculi are noted intervally increased in size and number of calculi at the left kidney aggregated at the inferior pole collecting system. There is interval enlargement of a calculus m easuring 5 x 10 mm at the mid right kidney. There is a 5 mm calculus present at the proximal right ureter. Correlation with renal stone protocol CT is recommended for characterization. 3. Interval incremental decrease in size of left pleural fluid collection. 4. Interval decrease in ascites at the abdomen and pelvis. 5. Findings at the urinary bladder suspicious for chronic cystitis. SL: [id number] ELECTROLYT AGAP 7.1 meq/L 10.0 - 02/16 ES 20.0 [facility] ELECTROLYT eGFR 54 02/16 Result Comment: The eGFR is calculated using the CKD-EPI formula. In most young, healthy individuals the eGFR will be >90 mL/ min/1.73m2. The eGFR declines with age. An eGFR of 60-89 may be normal in [facility] mL/min/1.7 some populations, particularly the elderly, for whom the CKD-EPI formula has not been extensively validated. Use of the eGFR is not recommended in the following populations: [facility] 3m2 Individuals with unstable creatinine concentrations, including patients and those with serious co-morbid conditions. Patients with extremes in muscle mass or diet. The data above are obtained from the National Kidney Disease Education Program (NKDEP) which additionally recommends that when the eGFR is used in patients with extremes of body mass index for purposes of drug dosing, the eGFR should be multiplied by the estimated BMI. ELECTROLYT Calcium Lvl 8.8 mg/dL 8.5 - 10.5 02/16 ES [facility] ELECTROLYT Chloride Lvl 107 meq/L 95 - 109 02/16 ES [facility] ELECTROLYT CO2 30 meq/L 24 - 32 02/16 ES [facility] ELECTROLYT Potassium 4.1 meq/L 3.5 - 5.1 02/16 ES Lvl [facility] ELECTROLYT Glucose Lvl 75 mg/dL 70 - 99 02/16 ES [facility] ELECTROLYT BUN 11 mg/dL 7 - 22 02/16 ES [facility] ELECTROLYT Creatinine 0.95 mg/dL 0.50 - 02/16 ES Lvl 1.40 /2016 [facility] ELECTROLYT Sodium Lvl 140 meq/L 135 - 145 02/16 [facility] HEMATOLOGY Hgb 13.0 g/dL 12.0 - 02/16 MH 16. [facility] HEMATOLOGY Hct 38.8 % 36.0 - 02/16 MH 48.0 [facility] TUMOR CEA 11.8 ng/mL 0.0 - 3.0 02/16 [facility] CHEM PANEL A/G Ratio 0.6 0.7 - 1.6 08/07 [facility] CHEM PANEL AGAP 11.9 meq/L 10.0 - 08/07 MH 20. [facility] CHEM PANEL Globulin 4.1 g/dL 2.0 - 4.0 08/07 [facility] CHEM PANEL B/C Ratio 15 6 - 25 08/07 [facility] CHEM PANEL eGFR 61 08/07 Result Comment: The eGFR is calculated using the CKD-EPI formula. In most young, healthy individuals the eGFR will be >90 mL/ min/1.73m2. The eGFR declines with age. An eGFR of 60-89 may be normal in mL/min/1. some populations, particularly the elderly, for whom the CKD-EPI formula has not been extensively validated. Use of the eGFR is not recommended in the following populations: [facility] 3m2 Individuals with unstable creatinine concentrations, including patients and those with serious co-morbid conditions. Patients with extremes in muscle mass or diet. The data above are obtained from the National Kidney Disease Education Program (NKDEP) which additionally recommends that when the eGFR is used in patients with extremes of body mass index for purposes of drug dosing, the eGFR should be multiplied by the estimated BMI. CHEM PANEL CO2 25 meq/L 24 - 32 08/07 [facility] CHEM PANEL Chloride Lvl 106 meq/L 95 - 109 08/07 [facility] CHEM PANEL Calcium Lvl 8.5 mg/dL 8.5 - 10.5 08/07 [facility] CHEM PANEL Albumin Lvl 2.5 g/dL 3.5 - 5.0 08/07 [facility] CHEM PANEL Total 6.6 g/dL 6.4 - 8.4 08/07 [facility] CHEM PANEL ALT 20 unit/L 0 - 65 08/07 [facility] CHEM PANEL AST 26 unit/L 0 - 37 08/07 [facility] CHEM PANEL Alk Phos 109 unit/L 39 - 136 08/07 [facility] CHEM PANEL Bili Total 1.2 mg/dL 0.2 - 1.3 08/07 [facility] CHEM PANEL Potassium 3.9 meq/L 3.5 - 5.1 08/07 Lvl [facility] CHEM PANEL Sodium Lvl 139 meq/L 135 - 145 08/07 [facility] CHEM PANEL Creatinine 0.88 mg/dL 0.50 - 12 MH Lvl 1.40 [facility] CHEM PANEL Glucose Lvl 120 mg/dL 70 - 99 08/07 [facility] CHEM PANEL BUN 13 mg/dL 7 - 22 08/07 [facility] CHEM PANEL Magnesium 1.9 mg/dL 1.8 - 2.4 08/07 l /2014 [facility] HEMATOLOGY MPV 8.8 fL 7.4 - 10.4 08/07 [facility] HEMATOLOGY Platelet 54 K/CMM 133 - 450 08/07 [facility] HEMATOLOGY MCHC 33.1 g/dL 32.0 - 08/07 36.0 /2014 [facility] HEMATOLOGY RDW 14.7 % 11.5 - 08/07 MH 14.5 [facility] HEMATOLOGY MCV 97.0 fL 80.0 - 08/07 98.0 /2014 [facility] HEMATOLOGY MCH 32.1 pg 27.0 - 08/07 MH 31.0 /2014 [facility] HEMATOLOGY RBC 3.54 M/CMM 4.20 - 08/07 MH 5.40 /2014 [facility] HEMATOLOGY WBC 3.6 K/CMM 3.7 - 10.4 08/07 [facility] HEMATOLOGY Hct 34.3 % 36.0 - 08/07 48.0 /2014 [facility] HEMATOLOGY Hgb 11.4 g/dL 12.0 - 08/07 16.0 [facility] HEMATOLOGY Monocytes # 0.2 K/CMM 0.0 - 0.8 08/07 [facility] HEMATOLOGY Eosinophils 1.3 % 0.0 - 4.0 08/07 [facility] HEMATOLOGY Monocytes 7.0 % 2.0 - 12.0 08/07 [facility] HEMATOLOGY Lymphocytes 1.1 K/CMM 1.0 - 5.5 08/07 /2014 [facility] HEMATOLOGY Basophils 0.6 % 0.0 - 1.0 08/07 [facility] HEMATOLOGY Segs-Bands # 2.2 K/CMM 1.5 - 8.1 08/07 [facility] HEMATOLOGY Segs 61.3 % 45.0 - 08/07 75.0 [facility] HEMATOLOGY Lymphocytes 29.8 % 20.0 - 08/07 MH 40.0 [facility] URINE AND UA Nitrite Negative Negative 08/06 [facility] (08/06/15 3:01 PM) URINE AND UA Leuk Est Large Negative 08/06 *ABN* (08/06/15 3:01 PM) URINE AND UA Blood Moderate Negative 08/06 [facility] *ABN* (08/06/15 3:01 PM) URINE AND UA Bili Negative Negative 08/06 [facility] *NA* (08/06/15 3:01 PM) URINE AND UA >=8.0 0.1 - 1.0 08/06 [facility] Urobilinogen [facility] *ABN* (08/06/15 3:01 PM) URINE AND UA Color Yellow Yellow 08/06 STOOL [facility] *NA* (08/06/15 3:01 PM) URINE AND UA Turbidity Cloudy Clear 08/06 [facility] *ABN* (08/06/15 3:01 PM) URINE AND UA Glucose Negative Negative 08/06 [facility] (08/06/15 3:01 PM) URINE AND UA Ketones Negative Negative 08/06 [facility] *NA* (08/06/15 3:01 PM) URINE AND UA Spec Grav 1.015 <=1.030 08/06 [facility] URINE AND UA pH 6.5 5.0 - 8.0 08/06 STOOL [facility] URINE AND UA Protein 30 mg/dL Negative 08/06 [facility] mg/dL [facility] URINE AND UA Sq Epi Few /LPF Few /LPF 08/06 STOOL [facility] URINE AND UA [place] Yeast Many /HPF None Seen 08/06 [facility] /HPF /2014 [facility] URINE AND UA WBC null 0 - 5 08/06 URINE AND UA RBC 17 /HPF 0 - 2 08/06 [facility] Carotid Carotid CAROTID DOPPLER 08/06 - artery artery /2014 - [facility] Doppler Doppler bilat US bilat US Read by: Joe Altman MD Dictated Date/time: 08/06/15 17:09 HISTORY: Mental status changes. Encephalopathy. Electronically Signed by: Joe Altman MD 08/06/15 17:15 FINAL REPORT TECHNIQUE: The cervical carotid circulation was evaluated from the angles of the mandible to the base of the neck utilizing high resolution color duplex sonography. (spectral and color flow Doppler) FINDINGS: GRAYSCALE AND COLOR-FLOW IMAGING: There is very mild plaque involving the right carotid bulb. There is no significant plaquing or stenosis on either side. VELOCITY MEASUREMENTS (Peak systolic): Right ICA: 76 cm/sec Left ICA: 59 cm/sec The systolic velocity ratios are normal measuring 0.7 on the right and 0.7 on the left. There is no evidence of a significant stenosis by velocity criteria. VERTEBRAL ARTERIES: Antegrade flow demonstrated bilaterally. CONCLUSION: 1. Negative carotid Doppler. *Note: Any reported ICA stenosis indirectly reference the distal internal carotid diameter as the denominator for stenosis measurement, utilizing consensus channel criteria. SL: 13 Joe Altman M.D. URINE AND UA CaOx Adali Occasional None Seen 08/06 [facility] /HPF /HPF [facility] URINE AND UA Mucus Few /LPF None Seen 08/06 [facility] /LPF [facility] URINE AND UA Bacteria Moderate None Seen 08/06 [facility] /HPF /HPF /2014 URINE AND UA WBC null 0 - 5 08/06 [facility] URINE AND UA Sq Epi Moderate Few /LPF 08/06 [facility] /LPF URINE AND UA RBC 13 /HPF 0 - 2 08/06 STOOL [facility] URINE AND UA Nitrite Negative Negative 08/06 [facility] (08/05/15 10:40 PM) URINE AND UA Leuk Est Moderate Negative 08/06 [facility] *ABN* (08/05/15 10:40 PM) URINE AND UA 1.0 EU/dL 0.1 - 1.0 08/06 [facility] Urobilinogen /2014 URINE AND UA Blood Moderate Negative 08/06 [facility] *ABN* (08/05/15 10:40 PM) URINE AND UA Bili Negative Negative 08/06 [facility] *NA* (08/05/15 10:40 PM) URINE AND UA Ketones Negative Negative 08/06 [facility] *NA* (08/05/15 10:40 PM) URINE AND UA Glucose Negative Negative 08/06 [facility] (08/05/15 10:40 PM) URINE AND UA Spec Grav 1.015 <=1.030 08/06 STOOL [facility] URINE AND UA Turbidity Slight Cloudy Clear 08/06 STOOL [facility] (08/05/15 10:40 PM) URINE AND UA Color Yellow Yellow 08/06 STOOL [facility] *NA* (08/05/15 10:40 PM) URINE AND UA Protein Negative Negative 08/06 STOOL [facility] (08/05/15 10:40 PM) URINE AND UA pH 6.0 5.0 - 8.0 08/06 STOOL [facility] CARDIAC CK MB 5.3 ng/mL 0.5 - 3.6 08/06 ENZYMES [facility] CARDIAC Total CK 116 unit/L 12 - 191 08/06 ENZYMES [facility] CARDIAC BNP 45 pg/mL <=100 08/06 ENZYMES pg/mL [facility] CARDIAC Troponin-I null 0.00 - 08/06 ENZYMES 0.40 [facility] CARDIAC CK MB Index 4.6 0.0 - 2.5 08/06 ENZYMES [facility] CHEM PANEL Ammonia 47.0 <=45.0 08/06 umol/L uMol/L [facility] CHEM PANEL Alk Phos 118 unit/L 39 - 136 08/06 [facility] CHEM PANEL Total 7.4 g/dL 6.4 - 8.4 08/06 Protein [facility] CHEM PANEL Calcium Lvl 8.5 mg/dL 8.5 - 10.5 08/06 [facility] CHEM PANEL eGFR 67 08/06 Result Comment: The eGFR is calculated using the CKD-EPI formula. In most young, healthy individuals the eGFR will be >90 mL/ min/1.73m2. The eGFR declines with age. An eGFR of 60-89 may be normal in mL/min/1.7 /2014 some populations, particularly the elderly, for whom the CKD-EPI formula has not been extensively validated. Use of the eGFR is not recommended in the following populations: [facility] 3m2 Individuals with unstable creatinine concentrations, including patients and those with serious co-morbid conditions. Patients with extremes in muscle mass or diet. The data above are obtained from the National Kidney Disease Education Program (NKDEP) which additionally recommends that when the eGFR is used in patients with extremes of body mass index for purposes of drug dosing, the eGFR should be multiplied by the estimated BMI. CHEM PANEL Bili Total 1.0 mg/dL 0.2 - 1.3 08/06 [facility] CHEM PANEL A/G Ratio 0.6 0.7 - 1.6 08/06 [facility] CHEM PANEL ALT 21 unit/L 0 - 65 08/06 [facility] CHEM PANEL Albumin Lvl 2.7 g/dL 3.5 - 5.0 08/06 [facility] CHEM PANEL AST 27 unit/L 0 - 37 08/06 [facility] CHEM PANEL AGAP 11.5 meq/L 10.0 - 12 MH 20.0 [facility] CHEM PANEL Globulin 4.7 g/dL 2.0 - 4.0 08/06 [facility] CHEM PANEL B/C Ratio 14 6 - 25 08/06 [facility] CHEM PANEL BUN 11 mg/dL 7 - 22 08/06 [facility] CHEM PANEL Chloride Lvl 106 meq/L 95 - 109 08/06 [facility] CHEM PANEL Creatinine 0.81 mg/dL 0.50 - 08/06 Lvl 1.40 /2014 [facility] CHEM PANEL Potassium 3.5 meq/L 3.5 - 5.1 08/06 Lvl /2014 [facility] CHEM PANEL Sodium Lvl 140 meq/L 135 - 145 08/06 [facility] CHEM PANEL CO2 26 meq/L 24 - 32 08/06 [facility] CHEM PANEL Glucose Lvl 109 mg/dL 70 - 99 08/06 [facility] HEMATOLOGY MPV 9.1 fL 7.4 - 10.4 08/06 [facility] HEMATOLOGY RDW 15.4 % 11.5 - 08/06 14. [facility] HEMATOLOGY Platelet 70 K/CMM 133 - 450 08/06 [facility] HEMATOLOGY MCHC 33.1 g/dL 32.0 - 12 36.0 [facility] HEMATOLOGY MCH 32.1 pg 27.0 - 12 MH 31.0 [facility] HEMATOLOGY MCV 97.2 fL 80.0 - 08/06 98.0 [facility] HEMATOLOGY Hct 36.5 % 36.0 - 12 MH 48.0 [facility] HEMATOLOGY Hgb 12.1 g/dL 12.0 - 12 MH 16.0 [facility] HEMATOLOGY RBC 3.76 M/CMM 4.20 - 12 MH 5.40 /2014 [facility] HEMATOLOGY WBC 6.0 K/CMM 3.7 - 10.4 08/06 MH /2014 [facility] HEMATOLOGY Monocytes # 0.5 K/CMM 0.0 - 0.8 08/06 /2014 [facility] HEMATOLOGY Eosinophils 0.1 K/CMM 0.0 - 0.5 12/ MH # /2015 [facility] HEMATOLOGY Lymphocytes 1.8 K/CMM 1.0 - 5.5 08/06 MH # /2015 [facility] HEMATOLOGY Basophils 0.6 % 0.0 - 1.0 08/06 /2014 [facility] HEMATOLOGY Segs-Bands # 3.6 K/CMM 1.5 - 8.1 08/06 [facility] HEMATOLOGY Monocytes 8.4 % 2.0 - 12.0 08/06 [facility] HEMATOLOGY Eosinophils 2.0 % 0.0 - 4.0 08/06 [facility] HEMATOLOGY Lymphocytes 29.3 % 20.0 - 12/ MH 40.0 /2014 [facility] HEMATOLOGY Segs 59.7 % 45.0 - 08/06 MH 75.0 /2015 [facility] CHEM PANEL Ammonia 48.0 <=45.0 08/05 umol/L uMol/L /2014 [facility] CHEM PANEL Magnesium 1.9 mg/dL 1.8 - 2.4 08/05 Lvl /2014 [facility] CHEM PANEL Total 7.3 g/dL 6.4 - 8.4 08/05 [facility] CHEM PANEL Chloride Lvl 106 meq/L 95 - 109 08/05 [facility] CHEM PANEL Potassium 3.8 meq/L 3.5 - 5.1 08/05 Lvl /2014 [facility] CHEM PANEL Calcium Lvl 8.6 mg/dL 8.5 - 10.5 08/05 [facility] CHEM PANEL CO2 26 meq/L 24 - 32 08/05 [facility] CHEM PANEL Glucose Lvl 93 mg/dL 70 - 99 08/05 [facility] CHEM PANEL Sodium Lvl 140 meq/L 135 - 145 08/05 [facility] CHEM PANEL BUN 12 mg/dL 7 - 22 08/05 [facility] CHEM PANEL Creatinine 0.88 mg/dL 0.50 - 12 MH Lvl 1.40 [facility] CHEM PANEL eGFR 60 08/05 Result Comment: The eGFR is calculated using the CKD-EPI formula. In most young, healthy individuals the eGFR will be >90 mL/ min/1.73m2. The eGFR declines with age. An eGFR of 60-89 may be normal in mL/min/1. some populations, particularly the elderly, for whom the CKD-EPI formula has not been extensively validated. Use of the eGFR is not recommended in the following populations: [facility] 3m2 Individuals with unstable creatinine concentrations, including patients and those with serious co-morbid conditions. Patients with extremes in muscle mass or diet. The data above are obtained from the National Kidney Disease Education Program (NKDEP) which additionally recommends that when the eGFR is used in patients with extremes of body mass index for purposes of drug dosing, the eGFR should be multiplied by the estimated BMI. CHEM PANEL Bili Total 0.9 mg/dL 0.2 - 1.3 08/05 [facility] CHEM PANEL Alk Phos 126 unit/L 39 - 136 08/05 [facility] CHEM PANEL Albumin Lvl 2.7 g/dL 3.5 - 5.0 08/05 [facility] CHEM PANEL ALT 22 unit/L 0 - 65 08/05 [facility] CHEM PANEL AST 27 unit/L 0 - 37 08/05 [facility] CHEM PANEL AGAP 11.8 meq/L 10.0 - 08/05 20.0 [facility] CHEM PANEL B/C Ratio 14 6 - 25 08/05 [facility] CHEM PANEL A/G Ratio 0.6 0.7 - 1.6 08/05 [facility] CHEM PANEL Globulin 4.6 g/dL 2.0 - 4.0 08/05 [facility] HEMATOLOGY MPV 8.9 fL 7.4 - 10.4 08/05 [facility] HEMATOLOGY RDW 15.3 % 11.5 - 08/05 MH 14. [facility] HEMATOLOGY Platelet 69 K/CMM 133 - 450 08/05 [facility] HEMATOLOGY Hct 37.6 % 36.0 - 08/05 MH 48.0 [facility] HEMATOLOGY MCHC 32.8 g/dL 32.0 - 08/05 MH 36.0 [facility] HEMATOLOGY Hgb 12.4 g/dL 12.0 - 08/05 MH 16.0 [facility] HEMATOLOGY MCV 96.5 fL 80.0 - 08/05 MH 98.0 [facility] MCH 31.7 pg 27.0 - 08/05 MH 31.0 /2014 [facility] HEMATOLOGY WBC 6.2 K/CMM 3.7 - 10.4 08/05 /2014 [facility] HEMATOLOGY RBC 3.90 M/CMM 4.20 - 08/05 5.40 /2015 [facility] HEMATOLOGY Monocytes # 0.5 K/CMM 0.0 - 0.8 08/05 /2014 [facility] HEMATOLOGY Basophils 0.6 % 0.0 - 1.0 08/05 /2014 [facility] HEMATOLOGY Segs-Bands # 4.2 K/CMM 1.5 - 8.1 08/05 /2014 [facility] HEMATOLOGY Eosinophils 0.1 K/CMM 0.0 - 0.5 08/05 # /2015 [facility] HEMATOLOGY Lymphocytes 1.4 K/CMM 1.0 - 5.5 08/05 # /2015 [facility] HEMATOLOGY Lymphocytes 22.3 % 20.0 - 08/05 40.0 /2014 [facility] HEMATOLOGY Monocytes 7.3 % 2.0 - 12.0 08/05 /2014 [facility] HEMATOLOGY Eosinophils 1.4 % 0.0 - 4.0 08/05 [facility] HEMATOLOGY Segs 68.4 % 45.0 - 08/05 75.0 /2014 [facility] Chest Chest 1view Chest one view: 08/05 - 1view DX - COMPARISON: 04/19/2014 Read by: Moris Escalera MD Dictated Date/time: 08/05/15 20:53 Electronically Signed by: Moris Escalera MD 08/05/15 20:56 FINAL REPORT FINDINGS: Limited AP portable study. Stable position of left subclavian ICD. There is moderate pulmonary hyperinflation. 2.5 centimeter oval nodular density projects over the right lung base. There may be tiny calcifications associated with this lesion. Nonemergent CT scan of chest and pulmonary follow-up are recommended. There is generalized increase in linear interstitial opacities involving both lungs. There is blunting of left costophrenic sulcus which may be related to pleural fluid versus pleural parenchymal scarring. Cardiac silhouette size is within normal limits. No significant bony abnormality is evident. Clothing artifact SL:13 Brain wo Brain wo PROCEDURE: Brain wo contrast CT 08/05 - contrast contrast CT /2014 - [facility] CT REASON FOR EXAM: pt from IV therapy with nurse reporting she didn't feel comfortable sending pt home because she wasn't acting right and she had an unsteady gait. pmh: Cirrhosis with recent ammonia level 48 CLINICAL INDICATION: Altered level of consciousness Read by: Dean Shafer MD Dictated Date/time: 08/05/15 19:36 Electronically Signed by: Dean Shafer MD 08/05/15 19:38 FINAL REPORT COMPARISON: None. FINDINGS: There is diffuse volume loss with corresponding prominence of the ventricles and sulci. There are microangiopathic changes of the white matter. There is no hemorrhage, mass or midline shift. IMPRESSION: 1. Chronic changes as described above, no acute intracranial process. 2. No evidence for hemorrhage, mass lesion or acute infarct. SL: 13 HEMATOLOGY Basophils 0.4 % 0.0 - 1.0 04/19 [facility] HEMATOLOGY Monocytes # 0.9 K/CMM 0.0 - 0.8 04/19 [facility] HEMATOLOGY Lymphocytes 1.0 K/CMM 1.0 - 5.5 04/19 MH # /2013 [facility] HEMATOLOGY Segs-Bands # 4.2 K/CMM 1.5 - 8.1 04/19 [facility] HEMATOLOGY Eosinophils 0.2 K/CMM 0.0 - 0.5 04/19 MH # /2013 [facility] HEMATOLOGY Eosinophils 2.7 % 0.0 - 4.0 04/19 [facility] HEMATOLOGY Monocytes 13.7 % 2.0 - 12.0 04/19 [facility] Lymphocytes 16.6 % 20.0 - 04/19 MH 40.0 /2013 [facility] HEMATOLOGY Segs 66.6 % 45.0 - 04/19 MH 75.0 /2013 [facility] MCHC 33.3 g/dL 32.0 - 04/19 MH 36.0 /2013 [facility] HEMATOLOGY RDW 15.2 % 11.5 - 04/19 MH 14.5 /2013 [facility] HEMATOLOGY MCH 32.3 pg 27.0 - 04/19 MH 31.0 /2013 [facility] HEMATOLOGY MCV 96.9 fL 80.0 - 04/19 MH 98.0 /2013 [facility] HEMATOLOGY Hct 30.1 % 36.0 - 04/19 MH 48.0 [facility] Platelet 67 K/CMM 133 - 450 04/19 [facility] MPV 8.4 fL 7.4 - 10.4 04/19 [facility] Hgb 10.0 g/dL 12.0 - 04/19 MH 16.0 [facility] HEMATOLOGY RBC 3.11 M/CMM 4.20 - 04/19 MH 5.40 /2013 [facility] HEMATOLOGY WBC 6.3 K/CMM 3.7 - 10.4 04/19 [facility] Chest 2 Chest 2 EXAM: Chest 2 views 04/19 - views views /2013 - [facility] DATE: Apr 19, 2014 09:48:02 AM Read by: Veto Cam MD Dictated Date/time: 04/19/14 09:51 Electronically Signed by: Vteo Cam MD 04/19/14 09:54 FINAL REPORT INDICATION: Coughing COMPARISON: Chest x-ray 12/14/2012 and PET/CT 03/24/2014. TECHNIQUE: PA and lateral chest radiographs. FINDINGS: Bilateral small layering pleural effusions are seen, left greater than right. Bilateral lower lung airspace opacities are identified. No pneumothorax is seen. The cardiomediastinal contours are unchanged. No acute skeletal abnormality is identified. A left subclavian port is seen with its catheter tip at the atriocaval junction. IMPRESSION: 1. Small layering bilateral pleural effusions, left greater than right. 2. Bilateral lower lung airspace opacities may represent subsegmental atelectasis or pneumonia. SL: 14 CHEM PANEL Globulin 4.8 g/dL 2.0 - 4.0 04/13 [facility] CHEM PANEL A/G Ratio 0.6 0.7 - 1.6 04/13 [facility] CHEM PANEL AGAP 13.4 meq/L 10.0 - 04/13 20.0 [facility] CHEM PANEL B/C Ratio 9 6 - 25 04/13 [facility] CHEM PANEL eGFR 59 04/13 1Result Comment: The eGFR is calculated using the CKD-EPI formula. In most young, healthy individuals the eGFR will be >90 mL/ min/1.73m2. The eGFR declines with age. An eGFR of 60-89 may be normal in mL/min/1.7 /2013 some populations, particularly the elderly, for whom the CKD-EPI formula has not been extensively validated. Use of the eGFR is not recommended in the following populations: [facility] 3m2 Individuals with unstable creatinine concentrations, including patients and those with serious co-morbid conditions. Patients with extremes in muscle mass or diet. The data above are obtained from the National Kidney Disease Education Program (NKDEP) which additionally recommends that when the eGFR is used in patients with extremes of body mass index for purposes of drug dosing, the eGFR should be multiplied by the estimated BMI. CHEM PANEL Albumin Lvl 2.9 g/dL 3.5 - 5.0 04/13 [facility] CHEM PANEL ALT 23 unit/L 0 - 65 04/13 [facility] CHEM PANEL AST 44 unit/L 0 - 37 04/13 [facility] CHEM PANEL Alk Phos 122 unit/L 39 - 136 04/13 [facility] CHEM PANEL Total 7.7 g/dL 6.4 - 8.4 04/13 [facility] CHEM PANEL Bili Total 1.5 mg/dL 0.2 - 1.3 04/13 [facility] CHEM PANEL Sodium Lvl 144 meq/L 135 - 145 04/13 [facility] CHEM PANEL Potassium 3.4 meq/L 3.5 - 5.1 04/13 [facility] CHEM PANEL Chloride Lvl 106 meq/L 95 - 109 04/13 [facility] CHEM PANEL CO2 28 meq/L 24 - 32 04/13 [facility] CHEM PANEL Calcium Lvl 8.8 mg/dL 8.5 - 10.5 04/13 [facility] CHEM PANEL Creatinine 0.9 mg/dL 0.5 - 1.4 04/13 [facility] CHEM PANEL Glucose Lvl 71 mg/dL 70 - 99 04/13 2Interpretive Data: Adult reference range values reflect the clinical guidelines of the [place] [employer]. [facility] CHEM PANEL BUN 8 mg/dL 7 - 22 04/13 [facility] CHEM PANEL A/G Ratio 0.6 0.7 - 1.6 04/13 [facility] CHEM PANEL Globulin 4.8 g/dL 2.0 - 4.0 04/13 [facility] CHEM PANEL Bili 0.8 mg/dL 0.0 - 1.0 04/13 [facility] CHEM PANEL ALT 23 unit/L 0 - 65 04/13 [facility] CHEM PANEL Alk Phos 122 unit/L 39 - 136 04/13 [facility] CHEM PANEL AST 45 unit/L 0 - 37 04/13 [facility] CHEM PANEL Bili Direct 0.5 mg/dL 0.0 - 0.3 04/13 [facility] CHEM PANEL Bili Total 1.3 mg/dL 0.2 - 1.3 04/13 [facility] CHEM PANEL Total 7.7 g/dL 6.4 - 8.4 04/13 [facility] CHEM PANEL Albumin Lvl 2.9 g/dL 3.5 - 5.0 04/13 [facility] HEMATOLOGY MCH 32.1 pg 27.0 - 04/13 31.0 [facility] HEMATOLOGY RDW 14.6 % 11.5 - 04/13 14.5 [facility] HEMATOLOGY MCHC 33.1 g/dL 32.0 - 04/13 36.0 /2013 [facility] HEMATOLOGY Platelet 76 K/CMM 133 - 450 04/13 [facility] HEMATOLOGY RBC 3.79 M/CMM 4.20 - 04/13 5.40 /2013 [facility] HEMATOLOGY Hct 36.7 % 36.0 - 04/13 48.0 /2013 [facility] HEMATOLOGY MCV 97.0 fL 81.0 - 04/13 99.0 /2013 [facility] HEMATOLOGY Hgb 12.1 g/dL 12.0 - 04/13 16.0 [facility] HEMATOLOGY WBC 4.6 K/CMM 3.7 - 10.4 04/13 [facility] HEMATOLOGY MPV 8.9 fL 7.4 - 10.4 04/13 [facility] HEMATOLOGY Segs 52.6 % 45.0 - 04/13 75.0 /2013 [facility] HEMATOLOGY Monocytes # 0.6 K/CMM 0.0 - 0.8 04/13 [facility] HEMATOLOGY Eosinophils 0.1 K/CMM 0.0 - 0.5 04/13 /2013 [facility] HEMATOLOGY Basophils 1.0 % 0.0 - 1.0 04/13 [facility] HEMATOLOGY Segs-Bands # 2.4 K/CMM 1.5 - 8.1 04/13 [facility] HEMATOLOGY Lymphocytes 1.5 K/CMM 1.0 - 5.5 04/13 /2013 [facility] HEMATOLOGY Lymphocytes 32.1 % 20.0 - 04/13 40.0 [facility] HEMATOLOGY Monocytes 12.2 % 2.0 - 12.0 04/13 [facility] HEMATOLOGY Eosinophils 2.1 % 0.0 - 4.0 04/13 [facility] PET CT PET CT PET/CT SCAN: 03/24 [facility] Colorectal Colorectal /2013 - [facility] [place] restaging restaging TECHNIQUE: 14 mCi of FDG were administered intravenously and a series of overlapping emission images were obtained from the skull base to the proximal thighs utilizing a PET/CT hybrid device. The CT wa Read by: Moris Escalera MD s utilized for attenuation correction and anatomic correlation and not as an independent diagnostic study. Dictated Date/time: 03/26/14 10:05 Electronically Signed by: Moris Escalera MD 03/26/14 10:26 FINAL REPORT BLOOD GLUCOSE: The patient is not diabetic. COMPARISON: PET scan 09/14/2013 CLINICAL HX: Colon cancer, restaging. Last chemotherapy treatment May 2012. FINDINGS: HEAD AND NECK: No abnormal activity is visualized. CHEST: There is interval development of a small left basilar effusion. Dependent atelectasis and scarring is present at the lung bases. Mild cardiomegaly. No abnormal activity is visualized. ABDOMEN AND PELVIS: Physiologic activity is visualized in the solid organs , tract and GI tract. Extensive changes of cirrhosis with accompanying splenomegaly. Interval development of moderate ascites in the abdomen and pelvis. Postoperative changes related to right hemicolectomy are stable. Extensive sigmoid diverticulosis. No abnormal activity is visualized. SKELETON: No abnormal activity is visualized. IMPRESSION: Postoperative changes related to right hemicolectomy are noted. No PET/CT evidence to suggest local recurrence or distant metastatic disease. Interval development of ascites in the abdomen and pelvis. Small left basilar effusion. Findings likely related to patient's known history of cirrhosis and portal hypertension. SL:13 CHEM PANEL AST 43 unit/L 0 - 37 03/06 [facility] CHEM PANEL Albumin Lvl 2.9 g/dL 3.5 - 5.0 03/06 [facility] CHEM PANEL Total 7.7 g/dL 6.4 - 8.4 03/06 [facility] CHEM PANEL Bili Direct 0.5 mg/dL 0.0 - 0.3 03/06 [facility] CHEM PANEL Alk Phos 137 unit/L 39 - 136 03/06 [facility] CHEM PANEL Bili Total 1.4 mg/dL 0.2 - 1.3 03/06 [facility] CHEM PANEL ALT 22 unit/L 0 - 65 03/06 [facility] CHEM PANEL Bili 0.9 mg/dL 0.0 - 1.0 03/06 [facility] CHEM PANEL Globulin 4.8 g/dL 2.0 - 4.0 03/06 [facility] CHEM PANEL A/G Ratio 0.6 0.7 - 1.6 03/06 [facility] ELECTROLYT AGAP 8.9 meq/L 10.0 - 03/06 ES 20.0 [facility] ELECTROLYT eGFR 59 03/06 1Result Comment: The eGFR is calculated using the CKD-EPI formula. In most young, healthy individuals the eGFR will be >90 mL/ min/1.73m2. The eGFR declines with age. An eGFR of 60-89 may be normal in [facility] mL/min/1.7 /2013 some populations, particularly the elderly, for whom the CKD-EPI formula has not been extensively validated. Use of the eGFR is not recommended in the following populations: [facility] 3m2 Individuals with unstable creatinine concentrations, including patients and those with serious co-morbid conditions. Patients with extremes in muscle mass or diet. The data above are obtained from the National Kidney Disease Education Program (NKDEP) which additionally recommends that when the eGFR is used in patients with extremes of body mass index for purposes of drug dosing, the eGFR should be multiplied by the estimated BMI. ELECTROLYT CO2 28 meq/L 24 - 32 03/06 [facility] ELECTROLYT Calcium Lvl 8.7 mg/dL 8.5 - 10.5 03/06 [facility] ELECTROLYT BUN 9 mg/dL 7 - 22 03/06 [facility] ELECTROLYT Creatinine 0.9 mg/dL 0.5 - 1.4 03/06 [facility] Lvl [facility] ELECTROLYT Sodium Lvl 140 meq/L 135 - 145 03/06 [facility] ELECTROLYT Potassium 3.9 meq/L 3.5 - 5.1 03/06 ES Lvl [facility] ELECTROLYT Chloride Lvl 107 meq/L 95 - 109 03/06 [facility] ELECTROLYT Glucose Lvl 84 mg/dL 70 - 99 03/06 2Interpretive Data: Adult reference range values reflect the clinical guidelines of the [place] [employer]. [facility] HEMATOLOGY Hgb 11.9 g/dL 12.0 - 03/06 16.0 [facility] HEMATOLOGY Hct 35.2 % 36.0 - 03/06 48.0 [facility] HEMATOLOGY Platelet 80 K/CMM 133 - 450 03/06 [facility] HEMATOLOGY WBC 4.4 K/CMM 3.7 - 10.4 03/06 [facility] HEMATOLOGY PT 15.9 s 12.0 - 03/06 14.7 [facility] HEMATOLOGY INR 1.29 0.85 - 07 3Interpretive Data: RECOMMENDED RANGES FOR PROTIME INR: . 2.0-3.0 for most medical and surgical thromboembolic states. [facility] 2.5-3.5 for artificial heart valves and recurrent embolism. INR SHOULD BE USED ONLY FOR PATIENTS ON STABLE ANTICOAGULANT THERAPY. HEMATOLOGY PTT 32.6 s 22.9 - 03/06 4Interpretive 35.8 /2013 Data: Heparin [facility] Therapeutic Range: 57 - 92 Seconds TUMOR CEA 12.2 ng/mL 0.0 - 3.0 03/06 [facility] PET CT PET CT 09/14 - Colorectal Colorectal - [facility] [place] restaging EXAM: PET/CT restaging HISTORY: Colon cancer, restaging. Chemotherapy May 2013. No radiation therapy. Right hemicolectomy. Read by: Lalo Thomas Dictated Date/time: 09/14/13 16:08 COMPARISON: PET/CT 02/02/2013. Electronically Signed by: Lalo Thomas MD 09/14/13 16:25 FINAL REPORT TECHNIQUE: Approximately 15 mCi F-18 FDG given IV. Images obtained approximately 45 minutes postinjection from the mid skull to the proximal thighs. CT scan is used for attenuation correction and anatomic correlation. FINDINGS: Stable right hemicolectomy. Physiological activity in the colon. No abnormal tracer activity is seen to suggest locally recurrent disease. No suspicious abnormal tracer activity is seen in the neck, chest, pelvis or bones. Sigmoid diverticulosis with slightly increased small amount of free fluid in the pelvis. Liver cirrhosis and portal hypertension with varices and splenomegaly again noted. IMPRESSION: 1. No recurrent or metastatic disease is seen. 2. Diverticulosis sigmoid colon. Slightly increased small amount of free fluid in the pelvis is of uncertain etiology, chronic diverticulitis is possible. SL:13 Vital Signs Vital Sign Value Date Comments [facility] Systolic (mm Hg) 125 08/03/2017 [facility] Diastolic (mm Hg) 71 08/03/2017 [facility] Systolic (mm Hg) 129 08/03/2017 [facility] Diastolic (mm Hg) 66 08/03/2017 [facility] Systolic (mm Hg) 128 08/03/2017 [facility] Diastolic (mm Hg) 59 08/03/2017 [facility] Respitory Rate 16 08/03/2017 [facility] Respitory Rate 11 08/03/2017 [facility] Respitory Rate 9 08/03/2017 [facility] Temperature Oral (F) 97.3 F 08/02/2017 [facility] Heart Rate 70 08/02/2017 [facility] BMI Calculated 27.18 08/02/2017 [facility] Height 165.1 cm 08/02/2017 [facility] Weight 74.091 08/02/2017 [facility] Systolic (mm Hg) 99 04/21/2017 [facility] Diastolic (mm Hg) 56 04/21/2017 [facility] Respitory Rate 18 04/21/2017 [facility] Respitory Rate 18 04/21/2017 [facility] Systolic (mm Hg) 114 04/21/2017 [facility] Diastolic (mm Hg) 58 04/21/2017 [facility] Systolic (mm Hg) 109 04/21/2017 [facility] Diastolic (mm Hg) 56 04/21/2017 [facility] Respitory Rate 12 04/21/2017 [facility] Height 165.1 cm 04/13/2017 [facility] Weight 74.545 04/13/2017 [facility] BMI Calculated 27.35 04/13/2017 [facility] Temperature Oral (F) 97.4 F 04/13/2017 [facility] Heart Rate 80 04/13/2017 [facility] Systolic (mm Hg) 118 02/23/2017 [facility] Diastolic (mm Hg) 61 02/23/2017 [facility] Respitory Rate 32 02/23/2017 [facility] Respitory Rate 28 02/23/2017 [facility] Systolic (mm Hg) 109 02/23/2017 [facility] Diastolic (mm Hg) 60 02/23/2017 [facility] Systolic (mm Hg) 109 02/23/2017 [facility] Diastolic (mm Hg) 61 02/23/2017 [facility] Respitory Rate 23 02/23/2017 [facility] Temperature Oral (F) 97.4 F 02/16/2017 [facility] Heart Rate 72 02/16/2017 [facility] BMI Calculated 28.02 02/16/2017 [facility] Weight 76.364 02/16/2017 [facility] Height 165.1 cm 02/16/2017 [facility] Weight 159 08/12/2015 [id number] Height 64.4 08/12/2015 2.16.840.1.422071. [id number] Temperature Oral (F) 97.6 F 08/12/2015 2.16.840.1.002364. 4.391.11.30198 Heart Rate 93 08/12/2015 2.16.840.1.692833. 4.391.11.32718 Diastolic (mm Hg) 63 08/12/2015 2.16.840.1.817140. 4.391.11.19243 Systolic (mm Hg) 114 08/12/2015 2.16.840.1.549947. 4.391.11.17630 Systolic (mm Hg) 102 08/07/2015 [facility] Diastolic (mm Hg) 66 08/07/2015 [facility] Temperature Oral (F) 97.6 F 08/07/2015 [facility] Respitory Rate 16 08/07/2015 [facility] Heart Rate 77 08/07/2015 [facility] Respitory Rate 15 08/07/2015 [facility] Temperature Oral (F) 97.4 F 08/07/2015 [facility] Heart Rate 81 08/07/2015 [facility] Systolic (mm Hg) 100 08/07/2015 [facility] Diastolic (mm Hg) 66 08/07/2015 [facility] Systolic (mm Hg) 115 08/07/2015 [facility] Diastolic (mm Hg) 73 08/07/2015 [facility] Heart Rate 83 08/07/2015 [facility] Respitory Rate 16 08/07/2015 [facility] Temperature Oral (F) 97.4 F 08/07/2015 [facility] BMI Calculated 26.89 08/06/2015 [facility] Weight 73.295 08/06/2015 [facility] Height 165.1 cm 08/06/2015 [facility] Weight 73.636 08/06/2015 [facility] BMI Calculated 27.01 08/06/2015 [facility] Height 165.1 cm 08/06/2015 [facility] Weight 75.455 08/06/2015 [facility] BMI Calculated 27.01 08/05/2015 [facility] Height 165.1 cm 08/05/2015 [facility] Weight 73.636 08/05/2015 [facility] Weight 150 04/27/2014 [facility] Systolic (mm Hg) 97 04/27/2014 [facility] Diastolic (mm Hg) 59 04/27/2014 [facility] Temperature Oral (F) 97.7 F 04/27/2014 [facility] Heart Rate 81 04/27/2014 [facility] Respitory Rate 16 04/20/2014 [facility] Temperature Oral (F) 97.9 F 04/20/2014 [facility] Respitory Rate 14 04/20/2014 [facility] Heart Rate 91 04/20/2014 [facility] Systolic (mm Hg) 108 04/20/2014 [facility] Diastolic (mm Hg) 60 04/20/2014 [facility] Diastolic (mm Hg) 63 04/20/2014 [facility] Systolic (mm Hg) 102 04/20/2014 [facility] Respitory Rate 16 04/20/2014 [facility] Heart Rate 92 04/20/2014 [facility] Temperature Oral (F) 98.2 F 04/20/2014 [facility] Systolic (mm Hg) 109 04/20/2014 [facility] Diastolic (mm Hg) 70 04/20/2014 [facility] Heart Rate 90 04/20/2014 [facility] Temperature Oral (F) 97.9 F 04/20/2014 [facility] Height 167.64 cm 04/18/2014 [facility] Weight 64.545 04/18/2014 [facility] BMI Calculated 22.97 04/18/2014 [facility] Height 165.1 cm 04/13/2014 [facility] Weight 64.545 04/13/2014 [facility] BMI Calculated 23.68 04/13/2014 [facility] Height 65 03/23/2014 [facility] Weight 146 03/23/2014 [facility] Temperature Oral (F) 97.6 F 03/23/2014 [facility] Heart Rate 90 03/23/2014 [facility] Systolic (mm Hg) 110 03/23/2014 [facility] Diastolic (mm Hg) 69 03/23/2014 [facility] Systolic (mm Hg) 115 03/13/2014 [facility] Respitory Rate 18 03/13/2014 [facility] Heart Rate 86 03/13/2014 [facility] Diastolic (mm Hg) 56 03/13/2014 [facility] Diastolic (mm Hg) 55 03/13/2014 [facility] Systolic (mm Hg) 118 03/13/2014 [facility] Respitory Rate 16 03/13/2014 [facility] Heart Rate 79 03/13/2014 [facility] Heart Rate 83 03/13/2014 [facility] Respitory Rate 16 03/13/2014 [facility] Systolic (mm Hg) 113 03/13/2014 [facility] Diastolic (mm Hg) 54 03/13/2014 [facility] Temperature Oral (F) 97.6 F 03/06/2014 [facility] Height 165.1 cm 03/06/2014 [facility] Weight 65.909 03/06/2014 [facility] BMI Calculated 24.18 03/06/2014 [facility] Weight 149 02/02/2014 [facility] Temperature Oral (F) 98.6 F 02/02/2014 [facility] Heart Rate 98 02/02/2014 [facility] Systolic (mm Hg) 114 02/02/2014 [facility] Diastolic (mm Hg) 73 02/02/2014 [facility] Temperature Oral (F) 97.7 F 07/14/2012 [facility] Heart Rate 103 07/14/2012 [facility] Systolic (mm Hg) 149 07/14/2012 [facility] Diastolic (mm Hg) 90 07/14/2012 [facility] Weight 143 07/14/2012 [facility] Height 66 07/14/2012 [facility] Encounters Location Location Encounter Encounter Reason Attending ADM DC Status Source Details Type Number For Provider Date Date Visit Outpatient [id number] COLON PING CEBALLOS 09/14 Active [facility] 9 [facility] Outpatient [id number] 153.9 PING CEBALLOS 09/20 Active [facility] Bedded [id number] Theodoros 03/13 03/13 [facility] Outpatient 0 [facility] Office [id number] Dakota Michele, 03/23 03/23 [facility] [place] [facility] General [facility] 350 [facility] Outpatient [id number] Ping Ceballos 03/24 03/25 [place] [facility] Lab Report [id number] Dakota Michele, 03/26 03/26 [place] [id number] [facility] Lab Report [id number] Thesantoshorowili 04/12 04/12 [place] [address] [facility] Medical Medical MD Group [facility] OBS [id number] Dakota Michele 04/18 04/20 [place] Observation [facility] Office [id number] Dakota Michele, 04/27 04/27 [place] Visit [facility] [id number] Ping Ceballos 08/05 09/04 [place] Recurring [facility] OBS [id number] Van 08/06 08/07 [place] Observation 3 J[facility] Unknown [id number] 08/12 08/12 2.16.840 Medical [id number] /2014 .1.83394 Group [id number] 3.4.391. 3b4 11.42577 Outpatient [id number] THEODOROS 05/14 [facility] 0 VOLOYIAN [place] Outpatient [id number] THEODOROS 10/15 [facility] 1 VOLOYIAN [place] Outpatient [id number] THEODOROS 02/23 [facility] 3 VOLOY [place] Outpatient [id number] THEODORO 02/23 Active [facility] 2 VOLOYIAN [facility] Bedded [id number] Theodoros 02/23 02/23 [facility] Outpatient 4 Volian [facility] Outpatient [id number] Theodoros 03/04 03/05 [facility] 5 Voloyian /2016 [facility] Outpatient [id number] [facility] 03/30 Active [facility] [place] Outpatient [id number] THEODOROS 04/21 Active [facility] 5 VOLOY [facility] [id number] [facility]21 [facility]2016 [facility] Outpatient [id number] ROMAN FOSTER 05/12 Active [facility] [place] Outpatient [id number] [facility] 05/17 Active [facility] [place] Outpatient [id number] NURSE VISIT 06/22 Active [facility] Day Surgery [id number] Nino [facility] 08/03 08/03 [place] /2016 [facility] Outpatient [id number] JOVANA CUI 08/26 Active [facility] [place] Outpatient [id number] [facility] 08/26 Active [facility] Ambulatory [id number] Jovana Karli 08/26 08/26 U[facility] Pre[facility] Outpatient [id number] Nino Nenh 08/26 08/27 [facility] Outpatient [id number] [facility] 09/27 Active [facility] Outpatient [id number] Nino [facility] 09/27 09/28 [facility] Outpatient [id number] [facility] 01/14 Active [facility] Ambulatory [id number] Nino [facility] 01/14 01/14 Urology Pre-Reg [facility] Procedures Procedure Code Date Perfomer Comments Source Cystourethroscopy, 71572 Medical with removal of 7 Group foreign body, calculus, or ureteral stent from urethra or bladder (separate procedure); simple Hernia repair [id number] [facility] 4 Hernia repair [id number] [facility] 4 Group Cannulation of [id number] [facility] Portacath Cardiac [id number] 1994 [facility] catheterization<sup>1 </sup> Cholecystectomy 88660819 [facility] Colonoscopy [id number] [facility] Hysterectomy [id number] [facility] Knee [id number] 2011 [facility] replacement<sup>2</red p> Operation [id number] [facility] Partial resection of 48387045 [facility] colon Cannulation of 780017074 [facility] Cardiac [id number] 1994 Medical catheterization<sup>1 Group </sup> Cataract extraction [id number] Medical and insertion of Group intraocular lens Cholecystectomy 79499539 Medical Group Colonoscopy [id number] Medical [facility] Hysterectomy 506074686 Medical [facility] Knee [id number] 2011 Medical replacement<sup>2</red Group p> Operation [id number] [facility] Group Partial resection of 65854885 Medical colon Group Cataract extraction 587557535 [facility] and insertion of intraocular lens
--- OUTSIDE RECORDS SUMMARY | 2018-10-24 09:28 | XMS REPORT | CCD ---
:1930 Author Organization [facility] Care Team Providers Name Role Phone Marlyn Ceballos Consulting Provider Allergies, Adverse Reactions, Alerts Substance Reaction Status morphine Active Problem List Condition Effective Dates Status CAD - Coronary artery disease Active Cancer of colon 05/10/2011 Active Cirrhosis of liver Active Esophageal varices Active Hepatitis C Active Pneumonia Active
--- OUTSIDE RECORDS SUMMARY | 2018-10-24 09:28 | XMS REPORT | CCD ---
:1930 Author Organization [facility] Care Team Providers Name Role Phone Marlyn Ceballos Referring Provider Allergies, Adverse Reactions, Alerts Substance Reaction Status morphine Active Problem List Condition Effective Dates Status CAD - Coronary artery disease Active Cancer of colon 05/10/2011 Active Cirrhosis of liver Active Esophageal varices Active Hepatitis C Active Pneumonia Active
--- OUTSIDE RECORDS SUMMARY | 2018-10-24 09:30 | XMS REPORT | Continuity of Care Document ---
:1930 Author Organization [facility] Care Team Providers Name Role Phone MD Michele Hoang Unavailable Unavailable Insurance Providers Payer name Policy type / Policy ID Covered constitution party ID Policy Mont[place] Coverage type [place]IC[place]: [employer] AARP HEALTHCARE OPTIONS (MEDICARE SUPPLEMENT AARP HEALTHCARE OPTIONS (MEDICARE SUPPLEMENT MEDIC[place]: [employer] MEDICARE [place]: [employer] MED[place]: [employer] AARP HEALTHCARE OPTIONS (MEDICARE SUPPLEMENT [facility] [employer] [employer] [place]MEDIC AARP HEALTHCARE OPTIONS (MEDICARE SUPPLEMENT AARP HEALTHCARE OPTIONS (MEDICARE SUPPLEMENT AARP HEALTHCARE OPTIONS (MEDICARE SUPPLEMENT AARP HEALTHCARE OPTIONS (MEDICARE SUPPLEMENT [facility] [employer] [facility] [employer] (MEDIC AARP HEALTHCARE OPTIONS (MEDICARE SUPPLEMENT AARP HEALTHCARE OPTIONS (MEDICARE SUPPLEMENT AARP HEALTHCARE OPTIONS (MEDICARE SUPPLEMENT AARP HEALTHCARE OPTIONS (MEDICARE SUPPLEMENT AARP HEALTHCARE OPTIONS (MEDICARE SUPPLEMENT Encounters Encounter Performer Location Date Office Visit Dakota Michele MD [facility] General Apr 27, 2014 Surgery 350 Allergies, Adverse Reactions, Alerts Type Substance Reaction Status Drug allergy MORPHINE Hallucinations Active Problems Problem Effective Dates Problem Status CARCINOMA, 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, 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, 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 SCREENING FOR COLON CANCER Aug 07, 2012 Active [facility] HERNIA WITHOUT MENTION OBSTRUCTION/GANGRENE Feb 02, 2014 Active Procedures Date Description Comments Jun 09, 2011 smoking status former smoker Jul 14, 2012 smoking status never smoker Feb 02, 2014 smoking status never smoker Mar 23, 2014 smoking status Never smoker Apr 27, 2014 smoking status Never smoker Medications Medication Instructions Start Date Status HM VITAMIN D3 2000 UNIT CAPS Feb 02, 2014 Active ALDACTONE 25 MG TABS one by mouth once daily Feb 02, 2014 Active GABAPENTIN 300 MG CAPS one by mouth twice daily Feb 02, 2014 Active BONIVA 150 MG TABS one tablet once per month Feb 02, 2014 Active B-12 2500 MCG TABS one by mouth once daily Feb 02, 2014 Active MOTRIN IB 200 MG TABS prn Feb 02, 2014 Active COCONUT OIL OIL two teaspoons daily Feb 02, 2014 Active Vital Signs Date Description Test Result Jul 14, 2012 temperature E&M TEMPERATURE 97.7 deg f Jul 14, 2012 pulse rate E&M PULSE RATE 103 /min Jul 14, 2012 blood pressure, systolic BP SYSTOLIC 149 mm Hg Jul 14, 2012 blood pressure, diastolic BP DIASTOLIC 90 mm Hg Jul 14, 2012 weight E&M WEIGHT 143 lb Jul 14, 2012 height E&M HEIGHT 66 in Feb 02, 2014 weight E&M WEIGHT 149 lb Feb 02, 2014 temperature E&M TEMPERATURE 98.6 deg f Feb 02, 2014 pulse rate E&M PULSE RATE 98 /min Feb 02, 2014 blood pressure, systolic BP SYSTOLIC 114 mm Hg Feb 02, 2014 blood pressure, diastolic BP DIASTOLIC 73 mm Hg Mar 23, 2014 height E&M HEIGHT 65 in Mar 23, 2014 weight E&M WEIGHT 146 lb Mar 23, 2014 temperature E&M TEMPERATURE 97.6 deg f Mar 23, 2014 pulse rate E&M PULSE RATE 90 /min Mar 23, 2014 blood pressure, systolic BP SYSTOLIC 110 mm Hg Mar 23, 2014 blood pressure, diastolic BP DIASTOLIC 69 mm Hg Apr 27, 2014 weight E&M WEIGHT 150 lb Apr 27, 2014 blood pressure, systolic BP SYSTOLIC 97 mm Hg Apr 27, 2014 blood pressure, diastolic BP DIASTOLIC 59 mm Hg Apr 27, 2014 temperature E&M TEMPERATURE 97.7 deg f Apr 27, 2014 pulse rate E&M PULSE RATE 81 /min
--- OUTSIDE RECORDS SUMMARY | 2018-10-24 09:30 | XMS REPORT | Continuity of Care Document ---
:1930 Author Organization [facility] Care Team Providers Name Role Phone MD Michele Hoang Unavailable Unavailable Insurance Providers Payer name Policy type / Policy ID Covered libertarian ID Policy Montoya Coverage type MEDIC[place]: [employer] AARP HEALTHCARE OPTIONS (MEDICARE SUPPLEMENT AARP HEALTHCARE [...] (MEDICARE SUPPLEMENT Encounters Encounter Performer Location Date Lab Report Dakota Michele MD [facility] [place] Mar 26, 2014 Allergies, Adverse Reactions, Alerts Type Substance Reaction [...] Mar 23, 2014 smoking status Never smoker Medications Medication [...]
--- OUTSIDE RECORDS SUMMARY | 2018-10-24 09:30 | XMS REPORT | Continuity of Care Document ---
:1930 Author Organization [facility] Care Team Providers Name Role Phone MD Niranjan, Galdino Unavailable Unavailable Insurance Providers Payer name Policy type / Policy ID Covered alliance party ID Policy Montoya Coverage type MEDICARE [place]: [email or web address] AARP HEALTHCARE OPTIONS (MEDICARE SUPPLEMENT AARP HEALTHCARE [...] Encounters Encounter Performer Location Date Lab Report Galdino Ureña MD [facility] Apr 12, 2014 Allergies, Adverse Reactions, Alerts Type Substance [...]
--- OUTSIDE RECORDS SUMMARY | 2018-10-24 09:30 | XMS REPORT ---
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 Assessment Hepatic cirrhosis K74.60 Active Problem Bacterial infection A49.9 Active Problem 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 Active Problem UTI (urinary tract infection) N39.0 Active Problem 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 Assessment UTI (urinary tract infection) N39.0 Active Problem Unspecified infectious disease B99.9 Active Problem Hepatic cirrhosis K74.60 Active Medications Medication Code System Code Instructions Start End Status Dosage Date Date Propranolol HCl [facility] 14568-25 20 mg Orally Active 1 tablet 73-00 daily Gabapentin [facility] 11986-93 300 MG Orally Active 1 capsule 39-19 twice a day (bid) B-12 [facility] 32291-22 2500 MCG Active Unknown 92-72 Sublingual Ocuvite [facility] 29410-71 Orally daily Active 1 tablet 87-60 Lasix [facility] 11689-54 40 MG Orally Active 1 tablet 60-13 Once a day Ciprofloxacin [facility] 61274-79 500 MG/5ML (10%) Active 5 ml 93-01 Orally Twice a day [facility]act[facility] 36714-60 25 MG Orally Active 1 tablet 03-11 daily Caltrate 600+D [facility] 81647-90 600-400 MG-UNIT Active 1 tablet 86-00 Orally Once a with food day Social History Social History Element Qualifiers Date Reported Tobacco Use: . Are you a: never smoker Aug 12, 2015 Use of recreational / street drugs? . Answer: No Aug 12, 2015 Marital Status: . Aug 12, 2015 Caffeine intake? . Status: Yes, What type: Coffee, Aug 12, 2015 Tea Do you exercise? . Answer: No Aug 12, 2015 Do you drink alcohol? . Status: No Aug 12, 2015 Travel outside [place]: . no Aug 12, 2015 Occupation: . RETIRED Aug 12, 2015 Vital Signs Date/Time: Aug 12, 2015 Weight 159 lbs Height 64.4 in Temperature 97.6 F Cardiac Monitoring Heart Rate 93 /min Blood Pressure Diastolic 63 mm Hg Blood Pressure Systolic 114 mm Hg Summary Purpose [employer] Submission
--- OUTSIDE RECORDS SUMMARY | 2018-10-24 09:30 | XMS REPORT | Continuity of Care Document ---
:1930 Author Organization [facility] Care Team Providers Name Role Phone MD Michele Hoang Unavailable Unavailable Insurance Providers Payer name Policy type / Policy ID Covered constitution party ID Policy Montoya Coverage type MEDIC[place] B-[place]: Medical Referral Source AARP HEALTHCARE OPTIONS (MEDICARE SUPPLEMENT AARP HEALTHCARE [...] Location Date Office Visit Dakota Michele MD [facility] Mar 23, 2014 Surgery 350 Allergies, Adverse Reactions, Alerts [...]
--- OUTSIDE RECORDS SUMMARY | 2018-10-24 09:31 | XMS REPORT ---
:1930 [facility] Address [address] [place] [address] [address] [place] [address] Care Team Providers Name Role Phone MARY SEARS Unavailable Unavailable BRYAN MOLINA Unavailable Unavailable Problems This patient has no known problems. Allergies, Adverse Reactions, Alerts This patient has no known allergies or adverse reactions. Medications This patient has no known medications. Results Test Description Test Time Test Comments Text Results Atomic Results Result Comments ALPHA FETOPROTEIN (AFP), TUMOR MARKER 2018-08-10 19:23:00 Test Item Value Reference Range Comments ALPHA-FETOPROTEIN (BEAKER) (test xqhl=3041) 2.9 ng/mL <10.0 HEPATIC FUNCTION [id number] 16:38:00 Test Item Value Reference Range Comments TOTAL PROTEIN (BEAKER) (test mxdm=672) 9.0 gm/dL 6.0-8.3 ALBUMIN (BEAKER) (test lums=3961) 2.8 g/dL 3.5-5.0 BILIRUBIN TOTAL (BEAKER) (test mbrv=133) 1.2 mg/dL 0.2-1.2 BILIRUBIN DIRECT (BEAKER) (test ttbl=635) 0.7 mg/dL 0.1-0.5 ALKALINE PHOSPHATASE (BEAKER) (test cfrk=458) 111 U/L 40-150 AST (SGOT) (BEAKER) (test tehk=578) 31 U/L 5-34 ALT (SGPT) (BEAKER) (test zsvu=662) 12 U/L 6-55 BASIC METABOLIC [id number] 16:38:00 Test Item Value Reference Range Comments SODIUM (BEAKER) (test 133 meq/L 136-145 lbwz=016) POTASSIUM (BEAKER) (test 4.0 meq/L 3.5-5.1 lond=293) CHLORIDE (BEAKER) (test 100 meq/L 98-107 xccn=561) CO2 (BEAKER) (test 27 meq/L 22-29 zdwg=430) BLOOD UREA NITROGEN 20 mg/dL 7-21 (BEAKER) (test tedo=287) CREATININE (BEAKER) (test 1.07 mg/dL 0.57-1.25 rykm=355) GLUCOSE RANDOM (BEAKER) 71 mg/dL 70-105 (test tasb=204) CALCIUM (BEAKER) (test 9.4 mg/dL 8.4-10.2 fllu=294) EGFR (BEAKER) (test 49 mL/min/1.73 sq m ESTIMATED GFR IS NOT gvtu=4585) ACCURATE CREATININE CLEARANCE IN PREDICTING GLOMERULAR FILTRATION RATE. ESTIMATED GFR IS NOT APPLICABLE FOR DIALYSIS PATIENTS. [id number] 16:33:00 Test Item Value Reference Range Comments AMMONIA (BEAKER) (test qtch=663) 40 mol/L 18-72 PROTHROMBIN [id number] 16:29:00 Test Item Value Reference Range Comments PROTIME (BEAKER) (test tzng=564) 16.5 seconds 11.7-14.7 INR (BEAKER) (test ivki=328) 1.3 <=5.9 RECOMMENDED COUMADIN/WARFARIN INR THERAPY RANGESSTANDARD DOSE: 2.0 - 3.0 Includes: PROPHYLAXIS forvenous thrombosis, systemic embolization; TREATMENT for venous thrombosis and/or pulmonary embolus.HIGH RISK: Target INR is 2.5-3.5 for patients with mechanical heart valves.CBC W/PLT COUNT & AUTO [id number] 16:22:00 Test Item Value Reference Range Comments WHITE BLOOD CELL COUNT (BEAKER) (test lksq=459) 5.0 K/ L 3.5-10.5 RED BLOOD CELL COUNT (BEAKER) (test qafa=829) 3.39 M/ L 3.93-5.22 HEMOGLOBIN (BEAKER) (test dehl=572) 10.7 GM/DL 11.2-15.7 HEMATOCRIT (BEAKER) (test keqv=758) 33.1 % 34.1-44.9 MEAN CORPUSCULAR VOLUME (BEAKER) (test egyu=183) 97.6 fL 79.4-94.8 MEAN CORPUSCULAR HEMOGLOBIN (BEAKER) (test 31.6 pg 25.6-32.2 qvju=474) MEAN CORPUSCULAR HEMOGLOBIN CONC (BEAKER) (test 32.3 GM/DL 32.2-35.5 dabc=019) RED CELL DISTRIBUTION WIDTH (BEAKER) (test 15.0 % 11.7-14.4 ckuo=569) PLATELET COUNT (BEAKER) (test drjr=530) 98 K/CU MM 150-450 MEAN PLATELET VOLUME (BEAKER) (test gmfn=394) 10.0 fL 9.4-12.3 NUCLEATED RED BLOOD CELLS (BEAKER) (test 0 /100 WBC 0-0 hxxg=238) NEUTROPHILS RELATIVE PERCENT (BEAKER) (test 71 % efxb=609) LYMPHOCYTES RELATIVE PERCENT (BEAKER) (test 14 % ynlx=748) MONOCYTES RELATIVE PERCENT (BEAKER) (test 12 % kfvm=015) EOSINOPHILS RELATIVE PERCENT (BEAKER) (test 2 % aoia=516) BASOPHILS RELATIVE PERCENT (BEAKER) (test 1 % upzv=796) NEUTROPHILS ABSOLUTE COUNT (BEAKER) (test 3.51 K/ L 1.56-6.13 wodx=137) LYMPHOCYTES ABSOLUTE COUNT (BEAKER) (test 0.69 K/ L 1.18-3.74 mkyu=176) MONOCYTES ABSOLUTE COUNT (BEAKER) (test ajlp=270) 0.62 K/ L 0.24-0.36 EOSINOPHILS ABSOLUTE COUNT (BEAKER) (test 0.10 K/ L 0.04-0.36 hjdd=196) BASOPHILS ABSOLUTE COUNT (BEAKER) (test xzpa=437) 0.04 K/ L 0.01-0.08 IMMATURE GRANULOCYTES-RELATIVE PERCENT (BEAKER) 0 % 0-1 (test dupk=6239) ALPHA FETOPROTEIN (AFP), TUMOR [id number] 17:15:00 Test Item Value Reference Range Comments ALPHA-FETOPROTEIN (BEAKER) (test fcru=9622) 3.3 ng/mL <10.0 [id number] 16:34:00 Test Item Value Reference Range Comments MAGNESIUM (BEAKER) (test gsln=222) 1.8 mg/dL 1.6-2.6 BASIC METABOLIC [id number] 16:34:00 Test Item Value Reference Range Comments SODIUM (BEAKER) (test 133 meq/L 136-145 qrcr=140) POTASSIUM (BEAKER) (test 3.9 meq/L 3.5-5.1 lunl=733) CHLORIDE (BEAKER) (test 99 meq/L 98-107 sliu=097) CO2 (BEAKER) (test 25 meq/L 22-29 wirf=666) BLOOD UREA NITROGEN 12 mg/dL 7-21 (BEAKER) (test kjll=443) CREATININE (BEAKER) (test 0.97 mg/dL 0.57-1.25 ucba=508) GLUCOSE RANDOM (BEAKER) 93 mg/dL 70-105 (test sfgf=435) CALCIUM (BEAKER) (test 9.0 mg/dL 8.4-10.2 bcod=285) EGFR (BEAKER) (test 54 mL/min/1.73 sq m ESTIMATED GFR IS NOT kgog=1666) ACCURATE CREATININE CLEARANCE IN PREDICTING GLOMERULAR FILTRATION RATE. ESTIMATED GFR IS NOT APPLICABLE FOR DIALYSIS PATIENTS. Specimen slightly ictericHEPATIC FUNCTION [id number] 16:34:00 Test Item Value Reference Range Comments TOTAL PROTEIN (BEAKER) (test ozqa=392) 8.0 gm/dL 6.0-8.3 ALBUMIN (BEAKER) (test egys=9990) 3.0 g/dL 3.5-5.0 BILIRUBIN TOTAL (BEAKER) (test zrql=729) 1.9 mg/dL 0.2-1.2 BILIRUBIN DIRECT (BEAKER) (test lhtg=111) 0.8 mg/dL 0.1-0.5 ALKALINE PHOSPHATASE (BEAKER) (test tjnl=720) 122 U/L 40-150 AST (SGOT) (BEAKER) (test ozdm=447) 30 U/L 5-34 ALT (SGPT) (BEAKER) (test enkj=972) 12 U/L 6-55 Specimen slightly ictericPROTHROMBIN [id number] 16:17:00 Test Item Value Reference Range Comments PROTIME (BEAKER) (test jbcg=238) 17.3 seconds 11.7-14.7 INR (BEAKER) (test sxsb=208) 1.4 <=5.9 RECOMMENDED COUMADIN/WARFARIN INR THERAPY RANGESSTANDARD DOSE: 2.0 - 3.0 Includes: PROPHYLAXIS forvenous thrombosis, systemic embolization; TREATMENT for venous thrombosis and/or pulmonary embolus.HIGH RISK: Target INR is 2.5-3.5 for patients with mechanical heart valves.CBC W/PLT COUNT & AUTO [id number] 16:17:00 Test Item Value Reference Range Comments WHITE BLOOD CELL COUNT (BEAKER) (test nvbu=001) 5.6 K/ L 3.5-10.5 RED BLOOD CELL COUNT (BEAKER) (test hduk=387) 3.83 M/ L 3.93-5.22 HEMOGLOBIN (BEAKER) (test hvul=477) 12.0 GM/DL 11.2-15.7 HEMATOCRIT (BEAKER) (test vykj=847) 36.8 % 34.1-44.9 MEAN CORPUSCULAR VOLUME (BEAKER) (test pccf=536) 96.1 fL 79.4-94.8 MEAN CORPUSCULAR HEMOGLOBIN (BEAKER) (test 31.3 pg 25.6-32.2 qxdh=503) MEAN CORPUSCULAR HEMOGLOBIN CONC (BEAKER) (test 32.6 GM/DL 32.2-35.5 myns=911) RED CELL DISTRIBUTION WIDTH (BEAKER) (test 15.9 % 11.7-14.4 eeol=146) PLATELET COUNT (BEAKER) (test wvtc=131) 83 K/CU MM 150-450 MEAN PLATELET VOLUME (BEAKER) (test mwuc=612) 11.1 fL 9.4-12.3 NUCLEATED RED BLOOD CELLS (BEAKER) (test 0 /100 WBC 0-0 jwyl=689) NEUTROPHILS RELATIVE PERCENT (BEAKER) (test 54 % tiwb=327) LYMPHOCYTES RELATIVE PERCENT (BEAKER) (test 36 % maef=247) MONOCYTES RELATIVE PERCENT (BEAKER) (test 8 % vdxx=737) EOSINOPHILS RELATIVE PERCENT (BEAKER) (test 2 % lalf=475) BASOPHILS RELATIVE PERCENT (BEAKER) (test 1 % pale=103) NEUTROPHILS ABSOLUTE COUNT (BEAKER) (test 3.01 K/ L 1.56-6.13 yqfo=902) LYMPHOCYTES ABSOLUTE COUNT (BEAKER) (test 1.98 K/ L 1.18-3.74 fpid=995) MONOCYTES ABSOLUTE COUNT (BEAKER) (test wnxn=438) 0.44 K/ L 0.24-0.36 EOSINOPHILS ABSOLUTE COUNT (BEAKER) (test 0.10 K/ L 0.04-0.36 azbm=666) BASOPHILS ABSOLUTE COUNT (BEAKER) (test rrmm=544) 0.04 K/ L 0.01-0.08 IMMATURE GRANULOCYTES-RELATIVE PERCENT (BEAKER) 0 % 0-1 (test dztm=3675) ALPHA FETOPROTEIN (AFP), TUMOR [id number] 16:14:00 Test Item Value Reference Range Comments ALPHA-FETOPROTEIN (BEAKER) (test chie=2649) 5.7 ng/mL <10.0 Effective 07/17/2014: Reference Range ChangeNew: <10.0 Previous: 0.0- [id number] 15:57:00 Test Item Value Reference Range Comments MAGNESIUM (BEAKER) (test eewm=450) 1.9 mg/dL 1.6-2.6 BASIC METABOLIC [id number] 15:57:00 Test Item Value Reference Range Comments SODIUM (BEAKER) (test 139 meq/L 136-145 pkjs=917) POTASSIUM (BEAKER) (test 4.5 meq/L 3.5-5.1 duuy=150) CHLORIDE (BEAKER) (test 105 meq/L 98-107 pziy=320) CO2 (BEAKER) (test 25 meq/L 22-29 zncg=585) BLOOD UREA NITROGEN 15 mg/dL 7-21 (BEAKER) (test eape=273) CREATININE (BEAKER) (test 0.95 mg/dL 0.57-1.25 maco=957) GLUCOSE RANDOM (BEAKER) 86 mg/dL 70-105 (test afzt=945) CALCIUM (BEAKER) (test 9.4 mg/dL 8.4-10.2 gemu=737) EGFR (BEAKER) (test 56 mL/min/1.73 sq m ESTIMATED GFR IS NOT jixl=2737) ACCURATE CREATININE CLEARANCE IN PREDICTING GLOMERULAR FILTRATION RATE. ESTIMATED GFR IS NOT APPLICABLE FOR DIALYSIS PATIENTS. Specimen slightly ictericHEPATIC FUNCTION [id number] 15:57:00 Test Item Value Reference Range Comments TOTAL PROTEIN (BEAKER) (test tcej=361) 7.6 gm/dL 6.0-8.3 ALBUMIN (BEAKER) (test kyly=2955) 3.2 g/dL 3.5-5.0 BILIRUBIN TOTAL (BEAKER) (test xdyb=133) 1.8 mg/dL 0.2-1.2 BILIRUBIN DIRECT (BEAKER) (test gqex=063) 0.8 mg/dL 0.1-0.5 ALKALINE PHOSPHATASE (BEAKER) (test meun=132) 112 U/L 40-150 AST (SGOT) (BEAKER) (test twca=788) 33 U/L 5-34 ALT (SGPT) (BEAKER) (test zqvj=797) 17 U/L 6-55 Specimen slightly ictericPROTHROMBIN [id number] 15:56:00 Test Item Value Reference Range Comments PROTIME (BEAKER) (test xekx=354) 16.7 seconds 11.7-14.7 INR (BEAKER) (test xnxw=121) 1.4 <=5.9 RECOMMENDED COUMADIN/WARFARIN INR THERAPY RANGESSTANDARD DOSE: 2.0 - 3.0 Includes: PROPHYLAXIS forvenous thrombosis, systemic embolization; TREATMENT for venous thrombosis and/or pulmonary embolus.HIGH RISK: Target INR is 2.5-3.5 for patients with mechanical heart valves.CBC W/PLT COUNT & AUTO [id number] 15:56:00 Test Item Value Reference Range Comments WHITE BLOOD CELL COUNT (BEAKER) (test rlyh=614) 5.3 K/ L 4.0-10.0 RED BLOOD CELL COUNT (BEAKER) (test dtcc=960) 4.21 M/ L 4.00-5.00 HEMOGLOBIN (BEAKER) (test lylf=336) 14.1 GM/DL 12.0-15.0 HEMATOCRIT (BEAKER) (test kwlu=444) 41.7 % 36.0-45.0 MEAN CORPUSCULAR VOLUME (BEAKER) (test djly=240) 99.1 fL 82.0-99.0 MEAN CORPUSCULAR HEMOGLOBIN (BEAKER) (test 33.4 pg 27.0-33.0 lnku=957) MEAN CORPUSCULAR HEMOGLOBIN CONC (BEAKER) (test 33.7 GM/DL 32.0-36.0 tvuw=369) RED CELL DISTRIBUTION WIDTH (BEAKER) (test 13.2 % 10.3-14.2 keyc=822) PLATELET COUNT (BEAKER) (test hzjd=658) 77 K/CU MM 150-430 MEAN PLATELET VOLUME (BEAKER) (test jlzx=171) 8.4 fL 6.5-10.5 NUCLEATED RED BLOOD CELLS (BEAKER) (test 0 /100 WBC 0-0 emaw=883) NEUTROPHILS RELATIVE PERCENT (BEAKER) (test 54 % muil=762) LYMPHOCYTES RELATIVE PERCENT (BEAKER) (test 33 % qaky=695) MONOCYTES RELATIVE PERCENT (BEAKER) (test 10 % wyne=739) EOSINOPHILS RELATIVE PERCENT (BEAKER) (test 3 % skkk=371) BASOPHILS RELATIVE PERCENT (BEAKER) (test 0 % ckhb=762) NEUTROPHILS ABSOLUTE COUNT (BEAKER) (test 2.86 K/ L 1.80-8.00 ztfo=052) LYMPHOCYTES ABSOLUTE COUNT (BEAKER) (test 1.77 K/ L 1.48-4.50 cuuf=214) MONOCYTES ABSOLUTE COUNT (BEAKER) (test rqrf=374) 0.56 K/ L 0.00-1.30 EOSINOPHILS ABSOLUTE COUNT (BEAKER) (test 0.13 K/ L 0.00-0.50 jfnc=884) BASOPHILS ABSOLUTE COUNT (BEAKER) (test stfu=099) 0.02 K/ L 0.00-0.20 [id number] 11:05:00 Test Item Value Reference Range Comments POC-CREATININE (BEAKER) 0.9 mg/dL 0.6-1.3 TESTED AT [facility] [address] [facility] (test fcug=4140) [facility] [address] POC-EGFR (BEAKER) (test 59 mL/min/1.73M2 wycj=5041)
[2018-10-24 09:57] VITALS: BMI 23.1
--- NOTE | 2018-10-24 11:30 | RAD REPORT ---
EXAM DESCRIPTION: US - Paracentesis Proc Guidance - 10/24/2018 11:22 am CLINICAL HISTORY: ASCITES Ascites COMPARISON: No comparisons FINDINGS: Informed consent was obtained and time-out was performed. Patient's abdomen was prepped and draped in the usual sterile fashion. 1% lidocaine was used for loca l anesthetic purposes. A small skin incision was made along the right lower quadrant. A paracentesis catheter was guided int o the peroneal cavity under sonographic guidance. A small amount of fluid was sent for requested lab studies. A large volume paracentesis was performed . The patient tolerated the procedure well. Patient was administered IV albumin per protocol following the procedure. IMPRESSION: Successful ultrasound-guided paracentesis.
[2018-10-24] MEDS ORDERED: ALBUMIN HUMAN 25% 200 ML IV ONE (12:18)
[2018-10-24 14:09] LABS: Body Fluid Source PERITONEAL; Color of fluid Yellow (COLORLESS)
[2018-10-24 14:10] LABS: Appearance SLT. TURBID (CLEAR); Body Fluid WBC 78 /mm^3
[2018-10-24 15:56] VITALS: TEMP 97.2
[2018-10-24 15:57] VITALS: BP 104/52; O2SAT 97
== END 2018-10-24 13:20 | disposition home or self-care (01) ==
LOC: DS 09:15
PROVIDERS: ATTEND Internal Medicine Nephrology
DX: R18.8 Other ascites (principal)
CPT/HCPCS: 87070; 36415; 89050; 96365; 49083; P9047

== ENCOUNTER 2018-12-07 16:37 | Inpatient (IN) | payer OTHER ==
--- OUTSIDE RECORDS SUMMARY | 2018-12-07 16:39 | XMS REPORT | Clinical Summary ---
:1930 Author Organization [facility] Address [address] [place] [address] Care Team Providers Name Role Phone Kandy Castillo PA-C Physician Electric [employer] Ankush Levine Referring Physician Fareed Ballesteros Primary [...] mouth 2 (two) times daily. lactulose Take 30 mLs 8100 mL 3 11/01/2018 Active (CHRONULAC) 10 (20 g total) gram/15 mL (15 mL) by mouth 3 solution (three) times daily. cyanocobalamin Take 100 mcg 0 Discontinued (VITAMIN B-12) 1000 by mouth 8 MCG tablet daily. cholecalciferol, Take 2,000 0 Discontinued vitamin D3, 2,000 Units by mouth 8 unit Cap daily. docusate sodium Take 100 mg by 0 Discontinued (STOOL SOFTENER) 100 mouth daily. 8 MG capsule vit C-vit Take by mouth 0 Discontinued Z-onwclg-vrx-om-3 daily . 8 (OCUVITE) 239-03-9-150 ke-kfvr-jp-mg Cap magnesium oxide-Mg Take by mouth. 0 [...] chronicity, Nausea, Hypokalemia, Zinc deficiency lactulose Take 20 g by 0 Discontinued (CHRONULAC) 10 mouth 3 9 gram/15 mL (15 mL) (three) times solution daily. Active Problems Problem Noted Date Encephalopathy chronic [...] infection 09/06/2014 Overview: SNOMED/[place] [id number] Last Assessment & Plan: Cirrhosis of liver [...] Encounters Date Type Specialty Care Team Description 11/01/2018 Orders Only Hepatology Pennie Spencer RN 10/20/2018 Abstract Hepatology Yvonne Atkins MA 10/17/2018 Telephone Hepatology Kandy Castillo, Follow-up PA-C 09/30/2018 Abstract HepatPennie Gomez RN 09/30/2018 Telephone Hepatology Pennie Spencer RN Pending imaging 09/30/2018 Abstract Hepatology Pennie Spencer RN 09/20/2018 Documentation Hepatology Xiao Mckeon RN 09/12/2018 Telephone Hepatology Xiao Mckeon RN other 08/11/2018 Telephone Hepatology Xiao Mckeon RN other 08/10/2018 Office Visit Hepatology Lynn Murguia MD 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 Screening for cancer; Hepatology Clinic E Encephalopathy; [...] 12/21/2017 Telephone Hepatology Kandy Castillo, Follow-up PA-C after 12/06/2017 Family History Medical History Relation Name Comments [...] Taken Blood Pressure 94/60 08/10/2018 2:08 PM [facility] Pulse 92 08/10/2018 2:08 PM [employer] [employer] Temperature 36.3 C (97.4 F) 08/10/2018 2:08 PM [facility] Respiratory Rate 16 08/10/2018 2:08 PM [facility] Oxygen Saturation 98% 08/10/2018 2:08 PM [employer] Inhaled Oxygen Concentration - - Weight 58.2 kg (128 lb 6.4 oz) 08/10/2018 2:08 PM [facility] Height 165.1 cm (5' 5") 08/10/2018 2:08 PM [facility] Body Mass Index 21.37 08/10/2018 2:08 PM [employer] [employer] Plan of Treatment Date Type Specialty Care Team Description 02/08/2019 Office Visit Hepatology Resource, [facility] Hepatology Clinic E Procedures Procedure Name Priority Date/Time Associated Diagnosis Comments CBC W/PLT COUNT & Routine 08/10/2018 3:45 Hepatic cirrhosis Results for this AUTO DIFFERENTIAL PM [employer] due to chronic procedure are in hepatitis C the results infection (HCC) section. Screening for cancer Encephalopathy AMMONIA Routine 08/10/2018 3:45 Hepatic cirrhosis Results for this PM [employer] due to chronic procedure are in hepatitis C the results infection (HCC) section. Screening for cancer Encephalopathy ALPHA FETOPROTEIN Routine 08/10/2018 3:45 Hepatic cirrhosis Results for this (AFP), TUMOR MARKER PM [employer] due to chronic procedure are in hepatitis C the results infection (HCC) section. Screening for cancer Encephalopathy PROTHROMBIN TIME/INR Routine 08/10/2018 3:45 Hepatic cirrhosis Results for this PM [employer] due to chronic procedure are in hepatitis C the results infection (HCC) section. Screening for cancer Encephalopathy CBC W/PLT COUNT & Routine 08/10/2018 3:45 Hepatic cirrhosis Results for this AUTO DIFFERENTIAL PM [employer] due to chronic procedure are in hepatitis C the results infection (HCC) section. Screening for cancer Encephalopathy HEPATIC FUNCTION Routine 08/10/2018 3:45 Hepatic cirrhosis Results for this PANEL PM [employer] due to chronic procedure are in hepatitis C the results infection (HCC) section. Screening for cancer Encephalopathy BASIC METABOLIC PANEL Routine 08/10/2018 3:45 Hepatic cirrhosis Results for this (7) PM [employer] due to chronic procedure are in hepatitis [...] unspecified chronicity Nausea Hypokalemia Zinc deficiency after 12/06/2017 Results CBC with platelet count + automated diff (08/10/2018 3:45 PM [facility] [employer])Only the most recent of2 resultswithin the time period is included. WBC 5.0 3.5 - 10.5 K/L [facility] RBC 3.39 (L) 3.93 - 5.22 M/L [facility] Hemoglobin 10.7 (L) 11.2 - 15.7 GM/DL [facility] Hematocrit 33.1 (L) 34.1 - 44.9 % [facility] MCV 97.6 (H) 79.4 - 94.8 fL [facility] MCH 31.6 25.6 - 32.2 pg [facility] MCHC 32.3 32.2 - 35.5 GM/DL [facility] RDW 15.0 (H) 11.7 - 14.4 % [facility] Platelets 98 (L) 150 - 450 K/CU MM [facility] MPV 10.0 9.4 - 12.3 fL [facility] nRBC 0 0 - 0 /100 WBC [facility] % Neutros 71 % [facility] % Lymphs 14 % [facility] % Monos 12 % [facility] % Eos 2 % [facility] % Baso 1 % [facility] # Neutros 3.51 1.56 - 6.13 K/L [facility] # Lymphs 0.69 (L) 1.18 - 3.74 K/L [facility] # Monos 0.62 (H) 0.24 - 0.36 K/L [facility] # Eos 0.10 0.04 - 0.36 K/L [facility] # Baso 0.04 0.01 - 0.08 K/L [facility] Immature Granulocytes-Relative 0 0 - 1 % [facility] Specimen Blood Performing Organization Address City/[facility]/Zipcode Phone Number [address] [phone] [place] Alpha fetoprotein (AFP), tumor marker (08/10/2018 3:45 PM [facility] [employer])Only the most recent of2 resultswithin the time period is included. Alpha-Fetoprotein 2.9 <10.0 ng/mL [facility] Specimen Blood Performing Organization Address [facility] Phone Number [address] [phone] CENTER Pro-time/INR (08/10/2018 3:45 PM [employer])Only the most recent of2 resultswithin the time period is included. Protime 16.5 (H) 11.7 - 14.7 seconds [facility] INR 1.3 <=5.9 [facility] Specimen Blood Narrative Performed At RECOMMENDED COUMADIN/WARFARIN INR THERAPY [facility] RANGES STANDARD DOSE: 2.0 - 3.0 Includes: PROPHYLAXIS for venous thrombosis, systemic embolization; TREATMENT for venous thrombosis and/or pulmonary embolus. HIGH RISK: Target INR is 2.5-3.5 for patients with mechanical heart valves. Performing Organization Address City/[facility] Phone Number [address] [address] [phone] CENTER Ammonia (08/10/2018 3:45 PM [facility] [employer]) Ammonia 40 18 - 72 mol/L [facility] Specimen Blood Performing Organization Address City/[facility] Phone Number [address] [phone] [place] Hepatic function panel (08/10/2018 3:45 PM [facility] [employer])Only the most recent of2 resultswithin the time period is included. Protein, Total 9.0 (H) 6.0 - 8.3 gm/dL [facility] Albumin 2.8 (L) 3.5 - 5.0 g/dL [facility] Total Bilirubin 1.2 0.2 - 1.2 mg/dL [facility] Bilirubin, Direct 0.7 (H) 0.1 - 0.5 mg/dL [facility] Alkaline Phosphatase 111 40 - 150 U/L [facility] AST 31 5 - 34 U/L [facility] ALT 12 6 - 55 U/L [facility] Specimen Blood Performing Organization Address City/[facility] Phone Number [address] [phone] [place] Basic Metabolic Panel (08/10/2018 3:45 PM [employer])Only the most recent of2 resultswithin the time period is included. Sodium 133 (L) 136 - 145 meq/L [facility] Potassium 4.0 3.5 - 5.1 meq/L [facility] Chloride 100 98 - 107 meq/L [facility] CO2 27 22 - 29 meq/L [facility] BUN 20 7 - 21 mg/dL [facility] Creatinine 1.07 0.57 - 1.25 mg/dL [facility] Glucose 71 70 - 105 mg/dL [facility] Calcium 9.4 8.4 - 10.2 mg/dL [facility] EGFR 49Comment: ESTIMATED GFR IS mL/min/1.73 sq m [facility] NOT ACCURATE CREATININE [facility] CLEARANCE IN PREDICTING GLOMERULAR FILTRATION RATE. ESTIMATED GFR IS NOT APPLICABLE FOR DIALYSIS PATIENTS. Specimen Blood Performing Organization Address City/State/Zipcode Phone Number [facility] [address] [place] [address] [phone] CENTER Magnesium (01/06/2018 3:21 PM CDT) Magnesium 1.8 1.6 - 2.6 mg/dL [facility] Specimen Blood Performing Organization Address City/State/Zipcode Phone Number [place] [id number] [place], [place] [phone] CENTER after 12/06/2017 Insurance Payer Benefit Plan / Group Subscriber ID Type Phone Address MEDICARE MEDICARE A B xxxxxxxxxxx Medicare [facility] GENERIC MEDICARE xxxxxxxxx [employer] SUPPLEMENT/INDIVIDUAL SUPPLEMENT
--- OUTSIDE RECORDS SUMMARY | 2018-12-07 16:46 | XMS REPORT | Continuity of Care Document ---
[...] DX:153.9=ADENOCARC 014 [place] INOMA V10.05 Active 014 [facility] Umbilical Active Problem 04/24/2017 Data migrated hernia<sup>2</sup> 014 from [facility] Centricity on 01/28/15. Umbilical Active Problem 01/17/2018 Data migrated Medical hernia<sup>5</sup> 014 from [facility] Centricity on [facility] 01/28/15. UMB HERNIA WITHOUT Active Condition 04/27/2014 Medical MENTION 014 Group OBSTRUCTION/GANGRE NE LARGE INTESTINE Active Condition 04/27/2014 Medical CANCER 012 Group SCREENING FOR Active Condition 04/27/2014 [facility] COLON CANCER 012 Group Carcinoma of Active Problem 01/17/2018 Data migrated ascending 011 from [facility] colon<sup>1</sup> Centricity on [facility] 01/28/15. Group CARCINOMA, Active Condition 04/27/2014 [facility] ASCENDING COLON 011 Group Cancer of colon Active Problem 01/17/2018 011 [facility] CH - Chronic Active Problem 04/24/2017 hepatitis [facility] DVT (<span Resolved Problem 04/24/2017 ID="[id number]">C [facility] onfirmed</span>) Bronchitis Resolved Problem 01/17/2018 [facility] CAD - Coronary Active Problem 01/17/2018 artery disease [facility] CH - Chronic Active Problem 01/17/2018 blood Medical hepatitis<sup>2</s transfusion Group, up> 1965 [facility] Chemotherapy Resolved Problem 01/17/2018 [facility] 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 [facility] Cirrhosis of liver Active Problem 01/17/2018 [facility] Colon cancer Resolved Problem 01/17/2018 [facility] DVT (<span Resolved Problem 01/17/2018 1966 Medical ID="[id number]">C Group, onfirmed</span>)<s [place] up>3, 4</sup> SOB on Active Problem 01/17/2018 Medical exertion(<span Group, ID="[id number]"> [place] Confirmed</span>) Esophageal varices Active Problem 01/17/2018 [facility] Hepatitis C Active Problem 01/17/2018 [facility] Hernia repair Resolved Problem 01/17/2018 [facility] History of colon Active Problem 01/17/2018 cancer [facility] Incisional hernia Active Problem 01/17/2018 [facility] Kidney stones Active Problem 01/17/2018 Medical Group,[facility] Neuropathy Active Problem 01/17/2018 [facility] Pneumonia Active Problem 01/17/2018 [facility] Recurrent UTI Active Problem 01/17/2018 Medical Group Unspecified Active Diagnosis 08/26/2015 2..1. infectious disease [id number] 1. Bacterial Active Diagnosis 08/26/2015 2.0.1. infection [id number] 1. Other Active Diagnosis 08/26/2015 2.0.1. encephalopathy [id number] 1. Esophageal varices Active Diagnosis 08/26/2015 2.16840.1. [id number] 1. Hepatic cirrhosis Active Diagnosis 08/26/2015 2.16840.1. [id number] 1. UTI Active Problem 08/26/2015 2.16.840.1. [id number] MALIGNANT MIGEL Active MH COLON NOS [facility] 153.9 Active MH [facility] HEPATOPULMONARY Active MH SYNDROME [facility] HX OF COLONIC Active MH MALIGNANCY [facility] URIN TRACT Active MH INFECTION NOS [facility] INCISIONAL HERNIA Active MH [facility] MALIGNANT NEOPLASM Active MH OF COLON, [facility] UNSPECIFIED PERSONAL HISTORY Active MH OF MALIGNANT [facility] NEOPLASM O CALCULUS OF KIDNEY Active MH [facility] Medications Medication Details Route Status Patient Ordering Order Source Instructions Provider Date Acetaminophen 2 tab, PO, Active 300 MG / Q6H, PRN 2016 [facility] Codeine Pain, X 7 Phosphate 30 MG day, # 56 Oral Tablet tab, 0 [Tylenol with Refill(s) Codeine #3] esmolol (ANES) Route: IV, Inactive Drug form: 2016 [facility] INJ, ONCE, Stop date: 08/03/17 13:22:00 [facility] ondansetron Route: IV, Inactive (ANES) Drug form: 2016 [facility] INJ, ONCE, Stop date: 08/03/17 13:07:00 [facility] propofol (ANES) Route: IV, Inactive Drug form: 2016 [facility] INJ, ONCE, Stop date: 08/03/17 13:07:00 [facility] lidocaine Route: IV, Inactive (ANES) Drug form: 2016 [facility] INJ, ONCE, Stop date: 08/03/17 13:07:00 [facility] ciprofloxacin Route: IV, Inactive (ANES) Drug form: 2016 [facility] INJ, ONCE, Stop date: 08/03/17 13:07:00 [facility] dexamethasone Route: IV, Inactive (ANES) Drug form: 2016 [facility] INJ, ONCE, Stop date: 08/03/17 13:07:00 [facility] fentaNYL (ANES) Route: IV, Inactive Drug form: 2016 [facility] INJ, ONCE, Stop date: 08/03/17 13:02:00 [facility] Calcium 1,000 mL, Inactive Chloride 0.0014 Rate: 25 2016 MEQ/ML / ml/hr, Infuse Potassium over: 40 hr, Chloride 0.004 Route: IV, MEQ/ML / Sodium Dosing Weight Chloride 0.103 74.091 kg, MEQ/ML / Sodium Total Volume: Lactate 0.028 1,000, Start MEQ/ML date: Injectable 08/03/17 Solution 12:12:00 [facility], Duration: 30 day, Stop date: 09/02/17 12:11:00 [facility], 1.86, m2 vancomycin Route: IV, Inactive (ANES) 1000 mg Drug form: 2016 [facility] INJ, Start date: 08/03/17 12:10:00 [facility], Stop date: 08/03/17 13:10:00 [facility] Lactated Route: IV, Inactive Ringers Total Volume: 2016 [facility] Injection IV 1,000, Start (ANES) 1000 mL date: 08/03/17 12:10:00 [facility], Stop date: 08/03/17 13:10:00 [facility] Ceftriaxone 1 gm, Route: No Longer IVPB, Q12H, Active 2016 [facility] Dosing Weight 74.091, kg, Start date: 08/02/17 21:00:00 [facility], Duration: 24 hr, Stop date: 08/03/17 9:00:00 [facility], ABX Indication: Urinary Tract Infection phenylephrine Route: IV, Inactive (ANES) Drug form: 2016 [facility] INJ, ONCE, Stop date: 04/21/17 10:51:00 CDT ondansetron Route: IV, Inactive (ANES) Drug form: 2016 [facility] INJ, ONCE, Stop date: 04/21/17 10:41:00 CDT dexamethasone Route: IV, Inactive (ANES) Drug form: 2016 [facility] INJ, ONCE, Stop date: 04/21/17 10:41:00 CDT ceFAZolin Route: IV, Inactive (ANES) Drug form: 2016 [facility] INJ, ONCE, Stop date: 04/21/17 10:41:00 CDT lidocaine Route: IV, Inactive (ANES) Drug form: 2016 [facility] INJ, ONCE, Stop date: 04/21/17 10:41:00 CDT propofol (ANES) Route: IV, Inactive Drug form: 2016 [facility] INJ, ONCE, Stop date: 04/21/17 10:41:00 CDT fentaNYL (ANES) Route: IV, Inactive Drug form: 2016 [facility] INJ, ONCE, Stop date: 04/21/17 10:41:00 CDT acetaminophen Route: IV, Inactive (ANES) (ANES) Drug form: 2016 [facility] INJ, Start date: 04/21/17 10:35:00 CDT, Stop date: 04/21/17 11:35:00 CDT sodium chloride Route: IV, Inactive 0.9% 500 ml INJ Total Volume: 2016 [facility] (ANES) 500, Start date: 04/21/17 10:08:00 CDT, Stop date: 04/21/17 11:08:00 CDT Calcium 1,000 mL, Inactive Chloride 0.0014 Rate: 25 2016 [facility] MEQ/ML / ml/hr, Infuse Potassium over: 40 hr, Chloride 0.004 Route: IV, MEQ/ML / Sodium Dosing Weight Chloride 0.103 74.545 kg, MEQ/ML / Sodium Total Volume: Lactate 0.028 1,000, Start MEQ/ML date: Injectable 04/21/17 Solution 9:53:00 CDT, Duration: 30 day, Stop date: 05/21/17 9:52:00 CDT Ocuvite 1 tab, PO, Active Daily, 0 2016 [facility] Refill(s) Furosemide 40 40 mg=1 tab, Active MG Oral Tablet PO, Daily, 0 2016 [facility] Refill(s) Vitamin D3 2000 2,000 Active intl units oral IntlUnit=1 2016 [facility] tablet tab, PO, Daily, 0 Refill(s) Albuterol 0.833 3 mL, Route: Inactive MG/ML / NEB, Drug 2016 [facility] Ipratropium Form: SOLN, [place] 0.167 Dosing Weight MG/ML Inhalant 76.364, kg, Solution ONCE, STAT, Start date: 02/23/17 9:22:00 CDT, Stop date: 02/23/17 9:22:00 CDTNotes: (Same as: Nolbertob) Sodium Chloride 500 mL, Rate: Inactive 0.154 MEQ/ML 25 ml/hr, 2016 [facility] Injectable Infuse over: Solution 20 hr, Route: IV, Dosing Weight 76.364 kg, Total Volume: 500, Start date: 02/23/17 9:22:00 CDT, Duration: 1 day, Stop date: 02/24/17 9:21:00 CDT Lasix 20 mg, 1 tab, No Longer Route: PO, Active 2014 [facility] Drug form: TAB, Daily, Dosing Weight 73.295, kg, Start date: 08/08/15 9:00:00, Duration: 30 day, Stop date: 09/06/15 9:00:00Notes: (Same as: Lasix) May cause GI upset. Give with food or milk. Spironolactone 12.5 mg, 0.5 No Longer tab, Route: Active 2014 [facility] PO, Drug form: TAB, Daily, Dosing Weight [...] 20 mL, Route: Inactive IVP, Start 2014 [facility] date: 08/07/15 12:19:00, Duration: 30 day, Stop date: 09/06/15 12:18:00, PRN Line FlushNotes: preservative free. sodium chloride 10 mL, Route: Inactive IVP, Start 2014 [facility] date: 08/07/15 12:18:00, Duration: 30 day, Stop date: 09/06/15 12:17:00, PRN Line FlushNotes: preservative free. ciprofloxacin 500 mg=1 tab, Active 500 mg oral PO, Q12H, X 2014 [facility] tablet 10 day, # 20 tab, 0 Refill(s) Cephalexin 500 500 mg=1 cap, Inactive MG Oral Capsule PO, TID, X 10 2014 [Keflex] day, # 30 cap, 0 Refill(s) Docusate Sodium 100 mg, 1 Inactive 100 MG Oral cap, Route: 2014 [facility] Capsule PO, Drug [Colace] form: CAP, Daily, Dosing Weight 73.295, kg, PRN Constipation, Start date: 08/07/15 11:09:00, Duration: 30 day, Stop date: 09/06/15 11:08:00Notes : (Same as: Colace) (Do Not Crush) Ibuprofen 400 mg, 1 Inactive tab, Route: 2014 [facility] PO, Drug form: TAB, ONCE, Dosing Weight 73.295, kg, PRN Headache 1-5, Start date: 08/06/15 21:10:00, Stop date: 08/06/15 21:10:00Notes : (Same as: Motrin) "Do Not Crush" Give with food. Lasix PO, Daily, 0 Active Refill(s) 2014 [facility] Rocephin 1 gm, Route: No Longer IVPB, Active 2014 [facility] [id number], Dosing Weight 73.295, kg, Start date: 08/06/15 9:00:00, Duration: 30 day, Stop date: 09/04/15 9:00:00Notes: (Same As: Rocephin). Use with 100 mL NS and infuse over 30 min MEDICATION WASTE Product Size: 1000 mg Product Wasted: ___ mg Lactulose 10 gm, 15 ml, Inactive Route: PO, 2014 [facility] Drug Form: SYRP, Dosing Weight 73.295, kg, ONCE, Start date: 08/06/15 3:49:00, Stop date: 08/06/15 3:49:00Notes: (Same as:Chronulac) Ondansetron 4 mg, 2 mL, No Longer Route: IVP, Active 2014 [facility] Drug form: INJ, Q6H, Dosing Weight 73.636, kg, PRN Nausea & Vomiting, Start date: 08/06/15 3:29:00, Duration: 30 day, Stop date: 09/05/15 3:28:00Notes: (Same as: Clint) MEDICATION WASTE Product Size: 4 mg Product Wasted: ___ mg Acetaminophen 325 mg, 1 No Longer tab, Route: Active 2014 [facility] PO, Drug form: TAB, Q4H, Dosing Weight 73.636, kg, PRN Pain Score 4-6, Start date: 08/06/15 3:29:00, Duration: 30 day, Stop date: 09/05/15 3:28:00Notes: Do not exceed 4 gm/day. (Same as: Tylenol) Morphine 2 mg, Route: No Longer IVP, Q4H, Active 2014 [facility] Dosing Weight 73.636, kg, PRN Pain Score 7-10, Start date: 08/06/15 3:29:00, Duration: 30 day, Stop date: 09/05/15 3:28:00 Aspirin 325 mg, 1 No Longer tab, Route: Active 2014 [facility] PO, Drug form: ECTAB, Q24H, Dosing Weight 73.636, kg, Start date: 08/06/15 3:00:00, Duration: 30 day, Stop date: 09/04/15 3:00:00Notes: (Do Not Crush) Do not crush or chew. Saline Flush 10 mL, Route: No Longer 0.9% IVP, Drug Active 2014 [facility] Form: INJ, Dosing Weight 75.455, kg, PRN, PRN Line Flush, Start date: 08/05/15 19:05:00, Duration: 30 day, Stop date: 09/04/15 19:04:00Notes : (Same as: BD Posiflush) Docusate Sodium 100 mg=1 cap, Active 100 MG Oral PO, Daily, as 2013 [facility] Capsule needed for [Colace] constipation, # 20 cap, 0 Refill(s) gabapentin 300 300 mg=1 cap, Active MG Oral Capsule PO, BID, # 90 2013 [facility] cap, 0 Refill(s) tramadol 50 mg=1 tab, Active hydrochloride PO, Q6H, 2013 [facility] 50 MG Oral Pain, # 40 Tablet tab, 0 Refill(s) Ibuprofen 400 400 mg, 1 No Longer MG Oral Tablet tab, Route: Active 2013 [facility] PO, Drug form: TAB, Q6H, Dosing Weight [...] 0.5 No Longer mL, Route: Active 2013 [facility] IV, Drug form: INJ, Q2H, PRN Pain, Start date: 04/18/14 17:55:00, Duration: 30 day, Stop date: 05/18/14 17:54:00 Ibuprofen 600 mg, Inactive Route: PO, 2013 Q6H, Dosing Weight 64.545, kg, PRN as needed for pain, Start date: 04/18/14 17:02:00, Duration: 30 day, Stop date: 05/18/14 17:01:00 Docusate Sodium 100 mg, 1 No Longer 100 MG Oral cap, Route: Active 2013 [facility] Capsule PO, Drug form: CAP, BID, Dosing Weight 64.545, kg, Start date: 04/18/14 17:00:00, Duration: 30 day, Stop date: 05/18/14 9:00:00Notes: (Same as: Colace) (Do Not Crush) Ofirmev 1,000 mg, 100 Inactive mL, Route: 2013 [facility] IV, Drug form: INJ, Q6H, Dosing Weight 65.909, kg, for > or=50 kg, Start date: 04/18/14 12:00:00, Duration: 1 day, Stop date: 04/19/14 6:00:00Notes: Infuse over 15 minutes Do not exceed 4gm/day of acetaminophen Saline Flush 5 ml, Route: No Longer 0.9% IVP, Drug Active 2013 [facility] Form: INJ, Dosing Weight 64.545, kg, PRN, PRN Line Flush, Start date: 04/18/14 10:16:00, Duration: 30 day, Stop date: 05/18/14 10:15:00Notes : Same as: BD Posiflush Sterile Sodium Chloride 1,000 mL, No Longer 0.154 MEQ/ML Rate: 125 Active 2013 [facility] Injectable ml/hr, Infuse Solution over: 8 hr, Route: IV, Dosing Weight 64.545 kg, Total Volume: 1,000, Start date: 04/18/14 10:16:00, Duration: 30 day, Stop date: 05/18/14 10:15:00 Ondansetron 4 mg, 2 mL, No Longer Route: IVP, Active 2013 [facility] Drug form: INJ, Q6H, Dosing Weight 64.545, kg, PRN Nausea & Vomiting, Start date: 04/18/14 10:16:00, Duration: 30 day, Stop date: 05/18/14 10:15:00Notes : (Same as: Zofran) Acetaminophen 1 tab, Route: Inactive 325 MG / PO, Drug 2013 [facility] Hydrocodone Form: TAB, Bitartrate 5 MG Dosing Weight Oral Tablet 65.909, kg, Q4H, PRN Pain Score 1-3, Start date: 04/18/14 10:16:00, Duration: 30 day, Stop date: 05/18/14 10:15:00Notes : (Same as: [place] 325/5) Do not exceed 4gm/day of acetaminophen . Cefoxitin 2 gm, Route: No Longer IVPB, ONCALL, Active 2013 [facility] Dosing Weight 64.545, kg, Start date: 04/13/14 13:00:00, Duration: 30 day, Stop date: 05/13/14 12:59:00Notes : (Same As: Mefoxin) Naloxone 0.1 mg, Inactive Route: IVP, 2013 [facility] Q2MIN, Dosing Weight 65.909, kg, PRN Narcotic Reversal, Start date: 03/13/14 11:16:00, Duration: 4 doses or times, Stop date: Limited # of times Flumazenil 0.2 mg, Inactive Route: IVP, 2013 [facility] PRN, Dosing Weight 65.909, kg, PRN Other -See Comment, Start date: 03/13/14 11:16:00, Duration: 1 doses or times, Stop date: Limited # of times Sodium Chloride 1,000 mL, Inactive 0.154 MEQ/ML Rate: 25 2013 [facility] Injectable ml/hr, Infuse Solution over: 40 hr, [...] 1 tablet Orally Active 20 mg Orally [facility] 2.16.840.1 daily .766148.4. [id number] 68 Gabapentin 1 capsule Orally Active 300 MG Orally Jus 2.16.840.1 twice a day .275440.4. (bid) 68 B-12 Unknown Sublingual Active 2500 MCG Jus 2.16.840.1 Sublingual .053433.4. 68 Ocuvite 1 tablet Orally Active Orally daily Jus 2.16.840.1 .751426.4. 68 Lasix 1 tablet Orally Active 40 MG Orally Jus 2.16.840.1 Once a day .740772.4. 68 Ciprofloxacin 5 ml Orally Active 500 MG/5ML Jus 2.840.1 (10%) Orally .072313.4. Twice a day 68 Spironolactone 1 tablet Orally Active 25 MG Orally Jus 2.16.840.1 daily .106207.4. 68 Caltrate 600+D 1 tablet with Orally Active 600-400 Jus 2.840.1 food MG-UNIT .966537.4. Orally Once a day Allergies, Adverse Reactions, Alerts Substance Category Reaction Severity Reaction Status Date Comments Source type Reported MORPHINE Drug MORPHINE allergy 2 [facility] morphine<s Assertion Drug Active Data up>1</sup> allergy 2 migrated [place] [facility] on 12/27/14. Originally documented as MORPHINE. Hallucinatio ns Adhesive Adverse rash Adverse Active 2.16.840. Tape Reaction Reaction 5 1.511960. 4.391 Morphine Adverse Info Not Adverse Active 2.16.840. Sulfate Reaction Available Reaction 5 1.147664. 4.391 morphine Assertion Drug Active allergy [place] [...] Lymphocytes 36.1 % 20.0 - 08/03 40.0 [facility] HEMATOLOGY Eosinophils 1.2 % 0.0 - 4.0 08/03 [facility] HEMATOLOGY Monocytes 5.4 % 2.0 - 12.0 08/03 [facility] HEMATOLOGY Basophils 0.6 % 0.0 - 1.0 08/03 [facility] HEMATOLOGY Segs 56.7 % 45.0 - 08/03 75.0 /2016 [facility] HEMATOLOGY Monocytes # 0.2 K/CMM 0.0 - 0.8 08/03 [facility] HEMATOLOGY Lymphocytes 1.0 K/CMM 1.0 - 5.5 08/03 [facility] HEMATOLOGY Segs-Bands # 1.6 K/CMM 1.5 - 8.1 08/03 [facility] HEMATOLOGY MPV 9.2 fL 7.4 - 10.4 08/03 [facility] HEMATOLOGY RDW 16.5 % 11.5 - 08/03 14.5 [facility] HEMATOLOGY Platelet 62 K/CMM 133 - 450 08/03 [facility] HEMATOLOGY Hct 39.3 % 36.0 - 08/03 MH 48.0 /2017 [facility] HEMATOLOGY Hgb 13.2 g/dL 12.0 - 08/03 MH 16.0 /2016 [facility] HEMATOLOGY RBC 4.14 M/CMM 4.20 - 08/03 MH 5.40 /2016 [facility] HEMATOLOGY MCH 31.9 pg 27.0 - 08/03 MH 31.0 /2016 [facility] HEMATOLOGY MCV 95.1 fL 80.0 - 08/03 MH 98.0 /2016 [facility] MCHC 33.6 g/dL 32.0 - 08/03 MH 36.0 /2016 [facility] HEMATOLOGY WBC 2.8 K/CMM 3.7 - 10.4 08/03 MH [facility] Renal Renal Patient Name: EDGARD DÍAZ 08[birth year]03 - pyelogram pyelogram /2016 - [facility] retrograde retrograde : 1930; Age: 86 years Female DX DX MR: [id number] Read by: Thelma Chopra MD Dictated Date/time: 08/03/17 18:54 Study: Renal pyelogram retrograde DX 08/03/2017 3:09 PM [facility] Electronically Signed by: Thelma Chopra MD 08/03/17 [...] is not recommended in the following populations: [facility] 3m2 Individuals with unstable creatinine concentrations, including [...] Globulin 4.6 g/dL 2.7 - 4.2 08/02 [facility] HEMATOLOGY RBC 3.92 M/CMM 4.20 - 12/ MH 5.40 [facility] HEMATOLOGY WBC 5.1 K/CMM 3.7 - 10.4 08/02 [facility] HEMATOLOGY Hgb 12.3 g/dL 12.0 - 08/02 16.0 /2016 [facility] HEMATOLOGY RDW 15.9 % 11.5 - 12/ MH 14.5 /2016 [facility] MCHC 33.4 g/dL 32.0 - 12/ MH 36.0 /2016 [facility] MCH 31.3 pg 27.0 - 12/ MH 31.0 [facility] Hct 36.7 % 36.0 - 12/ MH 48.0 /2016 [facility] HEMATOLOGY MCV 93.6 fL 80.0 - 12/ MH 98.0 /2016 [facility] HEMATOLOGY MPV 8.9 fL 7.4 - 10.4 12/ /2016 [facility] Platelet 82 K/CMM 133 - 450 12/ [facility] HEMATOLOGY INR 1.49 0.85 - 08/02 MH 1.17 /2016 [facility] HEMATOLOGY PT 18.1 s 12.0 - 08/02 14.7 [facility] PTT 33.0 s 22.9 - 08/02 35.8 [facility] HEMATOLOGY Segs-Bands # 2.6 K/CMM 1.5 - 8.1 08/02 [facility] HEMATOLOGY Basophils 0.8 % 0.0 - 1.0 / /2016 [facility] HEMATOLOGY Lymphocytes 1.8 K/CMM 1.0 - 5.5 / MH # /2017 [facility] HEMATOLOGY Eosinophils 0.2 K/CMM 0.0 - 0.5 / MH # /2016 [facility] HEMATOLOGY Monocytes # 0.5 K/CMM 0.0 - 0.8 08/02 [facility] HEMATOLOGY Segs 51.3 % 45.0 - 12/ MH 75.0 [facility] HEMATOLOGY Monocytes 10.3 % 2.0 - 12.0 / [facility] HEMATOLOGY Lymphocytes 34.4 % 20.0 - 12/ MH 40.0 /2016 [facility] HEMATOLOGY Eosinophils 3.2 % 0.0 - 4.0 08/02 [facility] ELECTROLYT AGAP 14.3 meq/L 10.0 - 04/13 ES 20.0 /2016 [facility] ELECTROLYT eGFR 46 04/13 Result Comment: The [...] is not recommended in the following populations: [facility] 3m2 Individuals with unstable creatinine concentrations, including [...] 0.50 - 04/13 ES Lvl 1.40 /2016 [facility] ELECTROLYT BUN 13 mg/dL 7 - 22 04/13 [facility] ELECTROLYT Potassium 4.3 meq/L 3.5 - 5.1 04/13 ES Lvl /2016 [facility] ELECTROLYT Sodium Lvl 142 meq/L 135 - 145 04/13 [facility] ELECTROLYT Chloride Lvl 107 meq/L 95 - 109 04/13 [facility] ELECTROLYT CO2 25 meq/L 24 - 32 04/13 [facility] ELECTROLYT Calcium Lvl 9.3 mg/dL 8.5 - 10.5 04/13 [facility] ELECTROLYT Glucose Lvl 101 mg/dL 70 - 99 04/13 [facility] HEMATOLOGY Eosinophils 0.2 K/CMM 0.0 - 0.5 04/13 MH # /2017 [facility] HEMATOLOGY Basophils # 0.1 K/CMM 0.0 - 0.2 04/13 [facility] HEMATOLOGY Monocytes # 0.6 K/CMM 0.0 - 0.8 04/13 [facility] HEMATOLOGY Lymphocytes 1.8 K/CMM 1.0 - 5.5 04/13 [facility] HEMATOLOGY Segs-Bands # 3.0 K/CMM 1.5 - 8.1 04/13 [facility] HEMATOLOGY Basophils 0.9 % 0.0 - 1.0 04/13 [facility] HEMATOLOGY Monocytes 10.4 % 2.0 - 12.0 04/13 [facility] HEMATOLOGY Eosinophils 3.0 % 0.0 - 4.0 04/13 [facility] HEMATOLOGY Segs 53.7 % 45.0 - 04/13 75.0 /2017 [facility] HEMATOLOGY Lymphocytes 32.0 % 20.0 - 04/13 MH 40.0 /2016 [facility] HEMATOLOGY INR 1.27 0.85 - 04/13 MH 1.17 /2016 [facility] HEMATOLOGY PT 16.2 s 12.0 - 04/13 14.7 [facility] MPV 8.9 fL 7.4 - 10.4 04/13 [facility] RDW 15.4 % 11.5 - 04/13 14.5 [facility] Platelet 79 K/CMM 133 - 450 04/13 [facility] MCH 32.2 pg 27.0 - 08 31.0 /2016 [facility] MCHC 33.3 g/dL 32.0 - 04/13 36.0 /2016 [facility] RBC 4.00 M/CMM 4.20 - 04/13 5.40 /2016 [facility] MCV 96.5 fL 80.0 - 04/13 98.0 /2016 [facility] Hct 38.6 % 36.0 - 04/13 48.0 [facility] Hgb 12.9 g/dL 12.0 - 04/13 16.0 [facility] WBC 5.6 K/CMM 3.7 - 10.4 04/13 [facility] Health PTT 28.2 s 22.9 - 04/13 35.8 [facility] PET CT PET CT Patient Name: EDGARD DÍAZ [birth year] - Colorectal Colorectal /2016 - [facility] [place] restaging : 1930; Age: 86 years y/o Female restaging MR: [id number] Read by: Williams Reynolds MD Dictated Date/time: [...] urinary bladder suspicious for chronic cystitis. SL: [id number] ELECTROLYT AGAP 7.1 meq/L 10.0 - 02/16 ES 20.0 [facility] ELECTROLYT eGFR 54 02/16 Result Comment: The eGFR is calculated using the CKD-EPI formula. In most young, healthy individuals the eGFR will be >90 mL/ min/1.73m2. The eGFR declines with age. An eGFR of 60-89 may be normal in [facility] mL/min/1.7 some populations, particularly the elderly, for whom the CKD-EPI formula has not been extensively validated. Use of the eGFR is not recommended in the following populations: [facility] 3m2 Individuals with unstable creatinine concentrations, including [...] 8.8 mg/dL 8.5 - 10.5 02/16 ES [facility] ELECTROLYT Chloride Lvl 107 meq/L 95 - 109 02/16 ES [facility] ELECTROLYT CO2 30 meq/L 24 - 32 02/16 ES [facility] ELECTROLYT Potassium 4.1 meq/L 3.5 - 5.1 02/16 ES Lvl [facility] ELECTROLYT Glucose Lvl 75 mg/dL 70 - 99 02/16 ES [facility] ELECTROLYT BUN 11 mg/dL 7 - 22 02/16 ES [facility] ELECTROLYT Creatinine 0.95 mg/dL 0.50 - 02/16 ES Lvl 1.40 /2016 [facility] ELECTROLYT Sodium Lvl 140 meq/L 135 - 145 02/16 [facility] HEMATOLOGY Hgb 13.0 g/dL 12.0 - 02/16 MH 16. [facility] HEMATOLOGY Hct 38.8 % 36.0 - 02/16 MH 48.0 [facility] TUMOR CEA 11.8 ng/mL 0.0 - 3.0 02/16 [facility] CHEM PANEL A/G Ratio 0.6 0.7 - 1.6 08/07 [facility] CHEM PANEL AGAP 11.9 meq/L 10.0 - 08/07 MH 20. [facility] CHEM PANEL Globulin 4.1 g/dL 2.0 - 4.0 08/07 [facility] CHEM PANEL B/C Ratio 15 6 - 25 08/07 [facility] CHEM PANEL eGFR 61 08/07 Result Comment: [...] is not recommended in the following populations: [facility] 3m2 Individuals with unstable creatinine concentrations, including [...] CO2 25 meq/L 24 - 32 08/07 [facility] CHEM PANEL Chloride Lvl 106 meq/L 95 - 109 08/07 [facility] CHEM PANEL Calcium Lvl 8.5 mg/dL 8.5 - 10.5 08/07 [facility] CHEM PANEL Albumin Lvl 2.5 g/dL 3.5 - 5.0 08/07 [facility] CHEM PANEL Total 6.6 g/dL 6.4 - 8.4 08/07 [facility] CHEM PANEL ALT 20 unit/L 0 - 65 08/07 [facility] CHEM PANEL AST 26 unit/L 0 - 37 08/07 [facility] CHEM PANEL Alk Phos 109 unit/L 39 - 136 08/07 [facility] CHEM PANEL Bili Total 1.2 mg/dL 0.2 - 1.3 08/07 [facility] CHEM PANEL Potassium 3.9 meq/L 3.5 - 5.1 08/07 Lvl [facility] CHEM PANEL Sodium Lvl 139 meq/L 135 - 145 08/07 [facility] CHEM PANEL Creatinine 0.88 mg/dL 0.50 - 12 MH Lvl 1.40 [facility] CHEM PANEL Glucose Lvl 120 mg/dL 70 - 99 08/07 [facility] CHEM PANEL BUN 13 mg/dL 7 - 22 08/07 [facility] CHEM PANEL Magnesium 1.9 mg/dL 1.8 - 2.4 08/07 l /2014 [facility] HEMATOLOGY MPV 8.8 fL 7.4 - 10.4 08/07 [facility] HEMATOLOGY Platelet 54 K/CMM 133 - 450 08/07 [facility] HEMATOLOGY MCHC 33.1 g/dL 32.0 - 08/07 36.0 /2014 [facility] HEMATOLOGY RDW 14.7 % 11.5 - 08/07 MH 14.5 [facility] HEMATOLOGY MCV 97.0 fL 80.0 - 08/07 98.0 /2014 [facility] HEMATOLOGY MCH 32.1 pg 27.0 - 08/07 MH 31.0 /2014 [facility] HEMATOLOGY RBC 3.54 M/CMM 4.20 - 08/07 MH 5.40 /2014 [facility] HEMATOLOGY WBC 3.6 K/CMM 3.7 - 10.4 08/07 [facility] HEMATOLOGY Hct 34.3 % 36.0 - 08/07 48.0 /2014 [facility] HEMATOLOGY Hgb 11.4 g/dL 12.0 - 08/07 16.0 [facility] HEMATOLOGY Monocytes # 0.2 K/CMM 0.0 - 0.8 08/07 [facility] HEMATOLOGY Eosinophils 1.3 % 0.0 - 4.0 08/07 [facility] HEMATOLOGY Monocytes 7.0 % 2.0 - 12.0 08/07 [facility] HEMATOLOGY Lymphocytes 1.1 K/CMM 1.0 - 5.5 08/07 /2014 [facility] HEMATOLOGY Basophils 0.6 % 0.0 - 1.0 08/07 [facility] HEMATOLOGY Segs-Bands # 2.2 K/CMM 1.5 - 8.1 08/07 [facility] HEMATOLOGY Segs 61.3 % 45.0 - 08/07 75.0 [facility] HEMATOLOGY Lymphocytes 29.8 % 20.0 - 08/07 MH 40.0 [facility] URINE AND UA Nitrite Negative Negative 08/06 [facility] (08/06/15 3:01 PM) URINE AND UA Leuk Est Large Negative 08/06 *[facility]N* (08/06/15 3:01 PM) URINE AND UA Blood Moderate Negative 08/06 [facility] *ABN* (08/06/15 3:01 PM) URINE AND UA Bili Negative Negative 08/06 [facility] *NA* (08/06/15 3:01 PM) URINE AND UA >=8.0 0.1 - 1.0 08/[address] [facility] Urobilinogen [facility] *ABN* (08/06/15 3:01 PM) URINE AND UA Color Yellow Yellow 08/06 STOOL [facility] *NA* (08/06/15 3:01 PM) URINE AND UA Turbidity Cloudy Clear 08/06 [facility] *ABN* (08/06/15 3:01 PM) URINE AND UA Glucose Negative Negative 08/06 [facility] (08/06/15 3:01 PM) URINE AND UA Ketones Negative Negative 08/06 [facility] *NA* (08/06/15 3:01 PM) URINE AND UA Spec Grav 1.015 <=1.030 08/06 [facility] URINE AND UA pH 6.5 5.0 - 8.0 08/06 STO[facility] URINE AND UA Protein 30 mg/dL Negative 08/06 [facility] mg/dL [facility] URINE AND UA Sq Epi Few /LPF Few /LPF 08/06 STOOL [facility] URINE AND UA Baudette Yeast Many /HPF None Seen 08/06 [facility] /HPF /2014 [facility] URINE AND UA WBC null 0 - 5 08/06 URINE AND UA RBC 17 /HPF 0 - 2 08/06 [facility] Carotid Carotid CAROTID DOPPLER 08/06 - artery artery /2014 - [facility] Doppler Doppler bilat US bilat US Read [...] Occasional None Seen 08/06 [facility] /HPF /HPF [facility] URINE AND UA Mucus Few /LPF None Seen 08/06 [facility] /LPF [facility] URINE AND UA Bacteria Moderate None Seen 08/06 [facility] /HPF /HPF /2014 URINE AND UA WBC null 0 - 5 08/06 [facility] URINE AND UA Sq Epi Moderate Few /LPF 08/06 [facility] /LPF URINE AND UA RBC 13 /HPF 0 - 2 08/06 STOOL [facility] URINE AND UA Nitrite Negative Negative 08/06 [...] UA Spec Grav 1.015 <=1.030 08/06 STOOL [facility] URINE AND UA Turbidity Slight Cloudy Clear 08/06 STOOL [facility] (08/05/15 10:40 PM) URINE AND UA Color Yellow Yellow 08/06 STOOL [facility] *NA* (08/05/15 10:40 PM) URINE AND UA Protein Negative Negative 08/06 STOOL [facility] (08/05/15 10:40 PM) URINE AND UA pH 6.0 5.0 - 8.0 08/06 STOOL [facility] CARDIAC CK MB 5.3 ng/mL 0.5 - 3.6 08/06 ENZYMES [facility] CARDIAC Total CK 116 unit/L 12 - 191 08/06 ENZYMES [facility] CARDIAC BNP 45 pg/mL <=100 08/06 ENZYMES pg/mL [facility] CARDIAC Troponin-I null 0.00 - 08/06 ENZYMES 0.40 [facility] CARDIAC CK MB Index 4.6 0.0 - 2.5 08/06 ENZYMES [facility] CHEM PANEL Ammonia 47.0 <=45.0 08/06 umol/L uMol/L [facility] CHEM PANEL Alk Phos 118 unit/L 39 - 136 08/06 [facility] CHEM PANEL Total 7.4 g/dL 6.4 - 8.4 08/06 Protein [facility] CHEM PANEL Calcium Lvl 8.5 mg/dL 8.5 - 10.5 08/06 [facility] CHEM PANEL eGFR 67 08/06 Result Comment: [...] is not recommended in the following populations: [facility] 3m2 Individuals with unstable creatinine concentrations, including [...] Total 1.0 mg/dL 0.2 - 1.3 08/06 [facility] CHEM PANEL A/G Ratio 0.6 0.7 - 1.6 08/06 [facility] CHEM PANEL ALT 21 unit/L 0 - 65 08/06 [facility] CHEM PANEL Albumin Lvl 2.7 g/dL 3.5 - 5.0 08/06 [facility] CHEM PANEL AST 27 unit/L 0 - 37 08/06 [facility] CHEM PANEL AGAP 11.5 meq/L 10.0 - 12 MH 20.0 [facility] CHEM PANEL Globulin 4.7 g/dL 2.0 - 4.0 08/06 [facility] CHEM PANEL B/C Ratio 14 6 - 25 08/06 [facility] CHEM PANEL BUN 11 mg/dL 7 - 22 08/06 [facility] CHEM PANEL Chloride Lvl 106 meq/L 95 - 109 08/06 [facility] CHEM PANEL Creatinine 0.81 mg/dL 0.50 - 08/06 Lvl 1.40 /2014 [facility] CHEM PANEL Potassium 3.5 meq/L 3.5 - 5.1 08/06 Lvl /2014 [facility] CHEM PANEL Sodium Lvl 140 meq/L 135 - 145 08/06 [facility] CHEM PANEL CO2 26 meq/L 24 - 32 08/06 [facility] CHEM PANEL Glucose Lvl 109 mg/dL 70 - 99 08/06 [facility] HEMATOLOGY MPV 9.1 fL 7.4 - 10.4 08/06 [facility] HEMATOLOGY RDW 15.4 % 11.5 - 08/06 14. [facility] HEMATOLOGY Platelet 70 K/CMM 133 - 450 08/06 [facility] HEMATOLOGY MCHC 33.1 g/dL 32.0 - 12 36.0 [facility] HEMATOLOGY MCH 32.1 pg 27.0 - 12 MH 31.0 [facility] HEMATOLOGY MCV 97.2 fL 80.0 - 08/06 98.0 [facility] HEMATOLOGY Hct 36.5 % 36.0 - 12 MH 48.0 [facility] HEMATOLOGY Hgb 12.1 g/dL 12.0 - 12 MH 16.0 [facility] HEMATOLOGY RBC 3.76 M/CMM 4.20 - 12 [...] is not recommended in the following populations: [facility] 3m2 Individuals with unstable creatinine concentrations, including [...] Total 0.9 mg/dL 0.2 - 1.3 08/05 [facility] CHEM PANEL Alk Phos 126 unit/L 39 - 136 08/05 [facility] CHEM PANEL Albumin Lvl 2.7 g/dL 3.5 - 5.0 08/05 [facility] CHEM PANEL ALT 22 unit/L 0 - 65 08/05 [facility] CHEM PANEL AST 27 unit/L 0 - 37 08/05 [facility] CHEM PANEL AGAP 11.8 meq/L 10.0 - 08/05 20.0 [facility] CHEM PANEL B/C Ratio 14 6 - 25 08/05 [facility] CHEM PANEL A/G Ratio 0.6 0.7 - 1.6 08/05 [facility] CHEM PANEL Globulin 4.6 g/dL 2.0 - 4.0 08/05 [facility] HEMATOLOGY MPV 8.9 fL 7.4 - 10.4 08/05 [facility] HEMATOLOGY RDW 15.3 % 11.5 - 08/05 MH 14. [facility] HEMATOLOGY Platelet 69 K/CMM 133 - 450 08/05 [facility] HEMATOLOGY Hct 37.6 % 36.0 - 08/05 MH 48.0 [facility] HEMATOLOGY MCHC 32.8 g/dL 32.0 - 08/05 MH 36.0 [facility] HEMATOLOGY Hgb 12.4 g/dL 12.0 - 08/05 MH 16.0 [facility] HEMATOLOGY MCV 96.5 fL 80.0 - 08/05 MH 98.0 [facility] MCH 31.7 pg 27.0 - 08/05 MH 31.0 /2014 [facility] HEMATOLOGY WBC 6.2 K/CMM 3.7 - 10.4 08/05 /2014 [facility] HEMATOLOGY RBC 3.90 M/CMM 4.20 - 08/05 5.40 /2015 [facility] HEMATOLOGY Monocytes # 0.5 K/CMM 0.0 - 0.8 08/05 /2014 [facility] HEMATOLOGY Basophils 0.6 % 0.0 - 1.0 08/05 /2014 [facility] HEMATOLOGY Segs-Bands # 4.2 K/CMM 1.5 - 8.1 08/05 /2014 [facility] HEMATOLOGY Eosinophils 0.1 K/CMM 0.0 - 0.5 08/05 # /2015 [facility] HEMATOLOGY Lymphocytes 1.4 K/CMM 1.0 - 5.5 08/05 # /2015 [facility] HEMATOLOGY Lymphocytes 22.3 % 20.0 - 08/05 40.0 /2014 [facility] HEMATOLOGY Monocytes 7.3 % 2.0 - 12.0 08/05 /2014 [facility] HEMATOLOGY Eosinophils 1.4 % 0.0 - 4.0 08/05 [facility] HEMATOLOGY Segs 68.4 % 45.0 - 08/05 75.0 /2014 [facility] Chest Chest 1view Chest one view: 08/05 [...] 08/05 - contrast contrast CT /2014 - [facility] CT REASON FOR EXAM: pt from IV [...] Basophils 0.4 % 0.0 - 1.0 04/19 [facility] HEMATOLOGY Monocytes # 0.9 K/CMM 0.0 - 0.8 04/19 [facility] HEMATOLOGY Lymphocytes 1.0 K/CMM 1.0 - 5.5 04/19 MH # /2013 [facility] HEMATOLOGY Segs-Bands # 4.2 K/CMM 1.5 - 8.1 04/19 [facility] HEMATOLOGY Eosinophils 0.2 K/CMM 0.0 - 0.5 04/19 MH # /2013 [facility] HEMATOLOGY Eosinophils 2.7 % 0.0 - 4.0 04/19 [facility] HEMATOLOGY Monocytes 13.7 % 2.0 - 12.0 04/19 [facility] Lymphocytes 16.6 % 20.0 - 04/19 MH 40.0 /2013 [facility] HEMATOLOGY Segs 66.6 % 45.0 - 04/19 MH 75.0 /2013 [facility] MCHC 33.3 g/dL 32.0 - 04/19 MH 36.0 /2013 [facility] HEMATOLOGY RDW 15.2 % 11.5 - 04/19 MH 14.5 /2013 [facility] HEMATOLOGY MCH 32.3 pg 27.0 - 04/19 MH 31.0 /2013 [facility] HEMATOLOGY MCV 96.9 fL 80.0 - 04/19 MH 98.0 /2013 [facility] HEMATOLOGY Hct 30.1 % 36.0 - 04/19 MH 48.0 [facility] Platelet 67 K/CMM 133 - 450 04/19 [facility] MPV 8.4 fL 7.4 - 10.4 04/19 [facility] Hgb 10.0 g/dL 12.0 - 04/19 MH 16.0 [facility] HEMATOLOGY RBC 3.11 M/CMM 4.20 - 04/19 MH 5.40 /2013 [facility] HEMATOLOGY WBC 6.3 K/CMM 3.7 - 10.4 04/19 [facility] Chest 2 Chest 2 EXAM: Chest 2 views 04/19 - views views /2013 - [facility] DATE: Apr 19, 2014 09:48:02 AM Read by: Veto Cam MD Dictated Date/time: 04/19/14 09:51 Electronically Signed by: Veto Cam MD 04/19/14 09:54 FINAL REPORT INDICATION: [...] Globulin 4.8 g/dL 2.0 - 4.0 04/13 [facility] CHEM PANEL A/G Ratio 0.6 0.7 - 1.6 04/13 [facility] CHEM PANEL AGAP 13.4 meq/L 10.0 - 04/13 20.0 [facility] CHEM PANEL B/C Ratio 9 6 - 25 04/13 [facility] CHEM PANEL eGFR 59 04/13 1Result Comment: [...] is not recommended in the following populations: [facility] 3m2 Individuals with unstable creatinine concentrations, including [...] values reflect the clinical guidelines of the [place] [employer]. [facility] CHEM PANEL BUN 8 [...] Total 1.3 mg/dL 0.2 - 1.3 04/13 [facility] CHEM PANEL Total 7.7 g/dL 6.4 - 8.4 04/13 [facility] CHEM PANEL Albumin Lvl 2.9 g/dL 3.5 - 5.0 04/13 [facility] HEMATOLOGY MCH 32.1 pg 27.0 - 04/13 31.0 [facility] HEMATOLOGY RDW 14.6 % 11.5 - 04/13 14.5 [facility] HEMATOLOGY MCHC 33.1 g/dL 32.0 - 04/13 36.0 /2013 [facility] HEMATOLOGY Platelet 76 K/CMM 133 - 450 04/13 [facility] HEMATOLOGY RBC 3.79 M/CMM 4.20 - 04/13 5.40 /2013 [facility] HEMATOLOGY Hct 36.7 % 36.0 - 04/13 48.0 /2013 [facility] HEMATOLOGY MCV 97.0 fL 81.0 - 04/13 99.0 /2013 [facility] HEMATOLOGY Hgb 12.1 g/dL 12.0 - 04/13 16.0 [facility] HEMATOLOGY WBC 4.6 K/CMM 3.7 - 10.4 04/13 [facility] HEMATOLOGY MPV 8.9 fL 7.4 - 10.4 04/13 [facility] HEMATOLOGY Segs 52.6 % 45.0 - 04/13 75.0 /2013 [facility] HEMATOLOGY Monocytes # 0.6 K/CMM 0.0 - 0.8 04/13 [facility] HEMATOLOGY Eosinophils 0.1 K/CMM 0.0 - 0.5 04/13 /2013 [facility] HEMATOLOGY Basophils 1.0 % 0.0 - 1.0 04/13 [facility] HEMATOLOGY Segs-Bands # 2.4 K/CMM 1.5 - 8.1 04/13 [facility] HEMATOLOGY Lymphocytes 1.5 K/CMM 1.0 - 5.5 04/13 /2013 [facility] HEMATOLOGY Lymphocytes 32.1 % 20.0 - 04/13 40.0 [facility] HEMATOLOGY Monocytes 12.2 % 2.0 - 12.0 04/13 [facility] HEMATOLOGY Eosinophils 2.1 % 0.0 - 4.0 04/13 [facility] PET CT PET CT PET/CT SCAN: 03/24 [facility] Colorectal Colorectal /2013 - [facility] [place] restaging restaging TECHNIQUE: 14 mCi [...] AST 43 unit/L 0 - 37 03/06 [facility] CHEM PANEL Albumin Lvl 2.9 g/dL 3.5 - 5.0 03/06 [facility] CHEM PANEL Total 7.7 g/dL 6.4 - 8.4 03/06 [facility] CHEM PANEL Bili Direct 0.5 mg/dL 0.0 - 0.3 03/06 [facility] CHEM PANEL Alk Phos 137 unit/L 39 - 136 03/06 [facility] CHEM PANEL Bili Total 1.4 mg/dL 0.2 - 1.3 03/06 [facility] CHEM PANEL ALT 22 unit/L 0 - 65 03/06 [facility] CHEM PANEL Bili 0.9 mg/dL 0.0 - 1.0 03/06 [facility] CHEM PANEL Globulin 4.8 g/dL 2.0 - 4.0 03/06 [facility] CHEM PANEL A/G Ratio 0.6 0.7 - 1.6 03/06 [facility] ELECTROLYT AGAP 8.9 meq/L 10.0 - 03/06 ES 20.0 [facility] ELECTROLYT eGFR 59 03/06 1Result Comment: The eGFR is calculated using the CKD-EPI formula. In most young, healthy individuals the eGFR will be >90 mL/ min/1.73m2. The eGFR declines with age. An eGFR of 60-89 may be normal in [facility] mL/min/1.7 /2013 some populations, particularly the elderly, for whom the CKD-EPI formula has not been extensively validated. Use of the eGFR is not recommended in the following populations: [facility] 3m2 Individuals with unstable creatinine concentrations, including [...] CO2 28 meq/L 24 - 32 03/06 [facility] ELECTROLYT Calcium Lvl 8.7 mg/dL 8.5 - 10.5 03/06 [facility] ELECTROLYT BUN 9 mg/dL 7 - 22 03/06 [facility] ELECTROLYT Creatinine 0.9 mg/dL 0.5 - 1.4 03/06 [facility] Lvl [facility] ELECTROLYT Sodium Lvl 140 meq/L 135 - 145 03/06 [facility] ELECTROLYT Potassium 3.9 meq/L 3.5 - 5.1 03/06 ES Lvl [facility] ELECTROLYT Chloride Lvl 107 meq/L 95 - 109 03/06 [facility] ELECTROLYT Glucose Lvl 84 mg/dL 70 - 99 03/06 2Interpretive Data: Adult reference range values reflect the clinical guidelines of the [place] [employer]. [facility] HEMATOLOGY Hgb 11.9 g/dL 12.0 - 03/06 16.0 [facility] HEMATOLOGY Hct 35.2 % 36.0 - 03/06 48.0 [facility] HEMATOLOGY Platelet 80 K/CMM 133 - 450 03/06 [facility] HEMATOLOGY WBC 4.4 K/CMM 3.7 - 10.4 03/06 [facility] HEMATOLOGY PT 15.9 s 12.0 - 03/06 14.7 [facility] HEMATOLOGY INR 1.29 0.85 - 07 3Interpretive Data: RECOMMENDED RANGES FOR PROTIME INR: . 2.0-3.0 for most medical and surgical thromboembolic states. [facility] 2.5-3.5 for artificial heart valves and recurrent embolism. INR SHOULD BE USED ONLY FOR PATIENTS ON STABLE ANTICOAGULANT THERAPY. HEMATOLOGY PTT 32.6 s 22.9 - 03/06 4Interpretive 35.8 /2013 Data: Heparin [facility] Therapeutic Range: 57 - 92 Seconds TUMOR CEA 12.2 ng/mL 0.0 - 3.0 03/06 [facility] PET CT PET CT 09/14 - Colorectal Colorectal - [facility] [place] rest[place] EXAM: PET/CT restaging HISTORY: [...] Vital Signs Vital Sign Value Date Comments [facility] Systolic (mm Hg) 125 08/03/2017 [facility] Diastolic (mm Hg) 71 08/03/2017 [facility] Systolic (mm Hg) 129 08/03/2017 [facility] Diastolic (mm Hg) 66 08/03/2017 [facility] Systolic (mm Hg) 128 08/03/2017 [facility] Diastolic (mm Hg) 59 08/03/2017 [facility] Respitory Rate 16 08/03/2017 [facility] Respitory Rate 11 08/03/2017 [facility] Respitory Rate 9 08/03/2017 [facility] Temperature Oral (F) 97.3 F 08/02/2017 [facility] Heart Rate 70 08/02/2017 [facility] BMI Calculated 27.18 08/02/2017 [facility] Height 165.1 cm 08/02/2017 [facility] Weight 74.091 08/02/2017 [facility] Systolic (mm Hg) 99 04/21/2017 [facility] Diastolic (mm Hg) 56 04/21/2017 [facility] Respitory Rate 18 04/21/2017 [facility] Respitory Rate 18 04/21/2017 [facility] Systolic (mm Hg) 114 04/21/2017 [facility] Diastolic (mm Hg) 58 04/21/2017 [facility] Systolic (mm Hg) 109 04/21/2017 [facility] Diastolic (mm Hg) 56 04/21/2017 [facility] Respitory Rate 12 04/21/2017 [facility] Height 165.1 cm 04/13/2017 [facility] Weight 74.545 04/13/2017 [facility] BMI Calculated 27.35 04/13/2017 [facility] Temperature Oral (F) 97.4 F 04/13/2017 [facility] Heart Rate 80 04/13/2017 [facility] Systolic (mm Hg) 118 02/23/2017 [facility] Diastolic (mm Hg) 61 02/23/2017 [facility] Respitory Rate 32 02/23/2017 [facility] Respitory Rate 28 02/23/2017 [facility] Systolic (mm Hg) 109 02/23/2017 [facility] Diastolic (mm Hg) 60 02/23/2017 [facility] Systolic (mm Hg) 109 02/23/2017 [facility] Diastolic (mm Hg) 61 02/23/2017 [facility] Respitory Rate 23 02/23/2017 [facility] Temperature Oral (F) 97.4 F 02/16/2017 [facility] Heart Rate 72 02/16/2017 [facility] BMI Calculated 28.02 02/16/2017 [facility] Weight 76.364 02/16/2017 [facility] Height 165.1 cm 02/16/2017 [facility] Weight 159 08/12/2015 [id number] Height 64.4 08/12/2015 [id number] Temperature Oral (F) 97.6 F 08/12/2015 [id number] Heart Rate 93 08/12/2015 [id number] Diastolic (mm Hg) 63 08/12/2015 [id number] Systolic (mm Hg) 114 08/12/2015 [id number] Systolic (mm Hg) 102 08/07/2015 [facility] Diastolic (mm Hg) 66 08/07/2015 [facility] Temperature Oral (F) 97.6 F 08/07/2015 [facility] Respitory Rate 16 08/07/2015 [facility] Heart Rate 77 08/07/2015 [facility] Respitory Rate 15 08/07/2015 [facility] Temperature Oral (F) 97.4 F 08/07/2015 [facility] Heart Rate 81 08/07/2015 [facility] Systolic (mm Hg) 100 08/07/2015 [facility] Diastolic (mm Hg) 66 08/07/2015 [facility] Systolic (mm Hg) 115 08/07/2015 [facility] Diastolic (mm Hg) 73 08/07/2015 [facility] Heart Rate 83 08/07/2015 [facility] Respitory Rate 16 08/07/2015 [facility] Temperature Oral (F) 97.4 F 08/07/2015 [facility] BMI Calculated 26.89 08/06/2015 [facility] Weight 73.295 [...] [facility] Diastolic (mm Hg) 54 03/13/2014 [facility] Temperature Oral (F) 97.6 F 03/06/2014 [facility] Height 165.1 cm 03/06/2014 [facility] Weight 65.909 03/06/2014 [facility] BMI Calculated 24.18 03/06/2014 [facility] Weight 149 02/02/2014 Medical Group Temperature Oral [...] Number For Provider Date Date Visit Outpatient [id number] COLON PING CEBALLOS 09/14 Active [facility] 9 [facility] Outpatient [id number] 153.9 PING CEBALLOS 09/20 Active [facility] Bedded [id number] Theodoros 03/13 03/13 [facility] Outpatient 0 [facility] Office [id number] Dakota Michele, 03/23 03/23 [facility] [address] [place] [facility] General Surgery 350 [facility] Outpatient [id number] Ping Ceballos 03/24 03/25 [place] [facility] Lab Report [id number] Dakota Michele, 03/26 03/26 [place] [address] [facility] Lab Report [id number] [place] 04/12 04/12 [place] [address] [facility] [place] [facility] MD Group [facility] OBS [id number] Dakota Michele 04/18 04/20 [place] Observation [facility] Office [id number] Dakota Michele, 04/27 04/27 [place] Visit 99174 [facility] Group [facility] General Surgery 350 [facility] OP [id number] Ping Ceballos 08/05 09/04 [place] Recurring [facility] OBS [id number] Van 08/06 08/07 [place] Observation 3 Jus [facility] Unknown [id number] 08/12 08/12 2.16.840 Medical [id number] /2014 .1.11623 Group [id number]. [id number] 11.59853 Outpatient [id number] THEODOROS 05/14 Active [facility] 0 VOLOYIAN [place] Outpatient [id number] THEODOROS 10/15 Active [facility] 1 VOLOYIAN [place] Outpatient [id number] THEODOROS 02/23 Active [facility] 3 VOLOY [place] Outpatient [id number] THEODORO 02/23 Active [facility] 2 VOLOYIAN [facility] Bedded [id number] Theodoros 02/23 02/23 [facility] Outpatient 4 Volian [facility] Outpatient [id number] Theodoros 03/04 03/05 [facility] 5 Voloyian /2016 [facility] Outpatient [id number] [facility] 03/30 Active [facility] [place] Outpatient [id number] THEODOROS 04/21 Active [facility] 5 VOLOY [facility] Surgery [id number] [facility] 04/21 04/21 [facility]ian[facility] /2016 [facility] Outpatient [id number] ROMAN FOSTER 05/12 Active [facility] [place] Outpatient [id number] [facility] 05/17 Active [facility] [place] Outpatient [id number] NURSE VISIT 06/22 Active [facility] Day Surgery [id number] Nino [facility] 08/03 08/03 [place] /2016 [facility] Outpatient [id number] JOVANA CUI 08/26 Active [facility] [place] Outpatient [id number] [facility] 08/26 Active [facility] Ambulatory [id number] Jovana Karli 08/26 08/26 Urology Pre-Reg [facility] Outpatient [id number] Nino Aznh 08/26 08/27 Urology [facility] Outpatient [id number] [facility] 09/27 Active [facility] Outpatient [id number] Nino [facility] 09/27 09/28 Urology [facility] Outpatient [id number] [facility] 01/14 Active [facility] Ambulatory [id number] Nino [facility] 01/14 01/14 Urology Pre-Reg [facility] Procedures Procedure Code Date Perfomer Comments Source Cystourethroscopy, 89814 Medical with removal of 7 Group foreign body, calculus, or ureteral stent from urethra or bladder (separate procedure); simple Hernia repair [id number] [place] 4 Hernia repair [id number] Medical 4 Group Cannulation of [id number] [facility] Portacath Cardiac [id number] 1994 [facility] catheterization<sup>1 </sup> Cholecystectomy [id number] [facility] Colonoscopy 93110622 [facility] Hysterectomy 062454892 [facility] Knee [id number] 2011 [facility] replacement<sup>2</red p> Operation [id number] [facility] Partial resection of 56414645 [facility] colon Cannulation of [id number] Medical [facility] Group Cardiac [id number] 1994 Medical catheterization<sup>1 Group </sup> Cataract extraction [id number] Medical and insertion of Group intraocular lens Cholecystectomy 72934019 Medical Group Colonoscopy [id number] Medical Group Hysterectomy [id number] Medical Group Knee [id number] 2011 Medical replacement<sup>2</red Group p> Operation [id number] Medical Group Partial resection of 49153518 Medical colon Group Cataract extraction [id number] [place] and insertion of intraocular lens
--- OUTSIDE RECORDS SUMMARY | 2018-12-07 16:48 | XMS REPORT | CCD ---
:1930 Author Organization [facility] Care Team Providers Name Role Phone Marlyn Ceballos Referring Provider Allergies, Adverse Reactions, Alerts Substance Reaction Status morphine Active Problem List Condition Effective Dates Status CAD - Coronary artery disease Active Cancer of colon 05/10/2011 Active Cirrhosis of liver Active Esophageal varices Active Hepatitis C Active Pneumonia Active
--- OUTSIDE RECORDS SUMMARY | 2018-12-07 16:48 | XMS REPORT | CCD ---
:1930 Author Organization [facility] Care Team Providers Name Role Phone Marlyn Ceballos Consulting Provider Allergies, Adverse Reactions, Alerts Substance Reaction Status morphine Active Problem List Condition Effective Dates Status CAD - Coronary artery disease Active Cancer of colon 05/10/2011 Active Cirrhosis of liver Active Esophageal varices Active Hepatitis C Active Pneumonia Active
--- OUTSIDE RECORDS SUMMARY | 2018-12-07 16:49 | XMS REPORT | Continuity of Care Document ---
:1930 Author Organization [facility] Care Team Providers Name Role Phone MD Michele Hoang Unavailable Unavailable Insurance Providers Payer name Policy type / Policy ID Covered alliance party ID Policy Montoya Coverage type [place] AARP HEALTHCARE OPTIONS (MEDICARE SUPPLEMENT A[employer] HE[employer]CARE OPTIONS (MEDICARE SUPPLEMENT MED[place] [employer] MEDICARE [place]: [employer] MED[place]: [place] [employer] A[employer] HE[employer]CARE OPTIONS (MEDICARE SUPPLEMENT [facility] [employer] (MEDIC [employer] HE[employer]CARE OPTIONS (MEDICARE SUPPLEMENT A[employer] HE[employer]CARE OPTIONS (MEDICARE SUPPLEMENT AARP HEALTHCARE OPTIONS (MEDICARE SUPPLEMENT AARP HEALTHCARE OPTIONS (MEDICARE SUPPLEMENT [facility] [place] [employer] (MEDIC [employer] HE[employer] OPTIONS (MEDICARE SUPPLEMENT [employer] HE[employer]CARE OPTIONS (MEDICARE SUPPLEMENT A[employer] HE[employer]CARE OPTIONS (MEDICARE SUPPLEMENT Encounters Encounter Performer Location Date Office Visit Dakota Michele MD [facility] SE General Mar 23, 2014 Surgery 350 [...]
--- OUTSIDE RECORDS SUMMARY | 2018-12-07 16:49 | XMS REPORT | Continuity of Care Document ---
:1930 Author Organization [facility] Care Team Providers Name Role Phone MD Michele Hoang Unavailable Unavailable Insurance Providers Payer name Policy type / Policy ID Covered green party ID Policy Montoya Coverage type MEDICARE [place]: Dormzy AARP HEALTHCARE OPTIONS (MEDICARE SUPPLEMENT AARP HEALTHCARE [...] Location Date Office Visit Dakota Michele MD [facility] SE General Apr 27, 2014 Surgery 350 [...]
--- OUTSIDE RECORDS SUMMARY | 2018-12-07 16:49 | XMS REPORT | Continuity of Care Document ---
:1930 Author Organization [facility] Care Team Providers Name Role Phone MD Niranjan, Galdino Unavailable Unavailable Insurance Providers Payer name Policy type / Policy ID Covered alliance party ID Policy Montoya Coverage type MEDICARE B-[place]: [employer] AARP HEALTHCARE OPTIONS (MEDICARE SUPPLEMENT AARP HEALTHCARE [...] Location Date Lab Report Galdino Ureña MD [facility] Apr 12, 2014 Allergies, Adverse Reactions, Alerts [...]
--- OUTSIDE RECORDS SUMMARY | 2018-12-07 16:49 | XMS REPORT ---
:1930 Author Organization [employer] Care Team Providers Name Role Phone Belkis Luuad Provider Role Unavailable Allergies, Adverse Reactions, Alerts Substance Reaction Event Type Adhesive Tape rash Drug Allergy Morphine Sulfate Info Not Available Drug Allergy Encounters Encounter Location Date Unknown [facility] Aug 12, 2015 Problems Problem Type Condition [...] End Status Dosage Date Date [facility]ol [facility] 68285[facility]01 20 mg Orally Active 1 tablet 73-00 daily Gabapentin [facility] 26737-25 300 MG Orally Active 1 capsule 39-19 twice a day (bid) B-12 [facility] 81411-89 2500 MCG Active Unknown 92-72 Sublingual Ocuvite [facility] 76674-85 Orally daily Active 1 tablet 87-60 Lasix [facility] 74836-78 40 MG Orally Active 1 tablet 60-13 Once a day Ciprofloxacin [facility] 91257-56 500 MG/5ML (10%) Active 5 ml 93-01 Orally Twice a day [facility] 27671-63 25 MG Orally Active 1 tablet 03-11 daily Caltrate 600+D [facility] 93312-57 600-400 MG-UNIT Active 1 tablet 86-00 Orally [...]
--- OUTSIDE RECORDS SUMMARY | 2018-12-07 16:49 | XMS REPORT | Continuity of Care Document ---
:1930 Author Organization [facility] Care Team Providers Name Role Phone MD Michele Hoang Unavailable Unavailable Insurance Providers Payer name Policy type / Policy ID Covered alliance party ID Policy Montoya Coverage type MEDIC[place]: eleni AARP HEALTHCARE OPTIONS (MEDICARE SUPPLEMENT AARP HEALTHCARE [...] Location Date Lab Report Dakota Michele MD [facility] [place] Mar 26, 2014 Allergies, Adverse Reactions, Alerts [...]
--- OUTSIDE RECORDS SUMMARY | 2018-12-07 16:50 | XMS REPORT ---
:1930 Author Organization [facility] Address [address] [place] [address] [address] [place] [address] Care Team Providers Name Role Phone MARY [...] Value Reference Range Comments ALPHA-FETOPROTEIN (BEAKER) (test ollr=0227) 2.9 ng/mL <10.0 HEPATIC FUNCTION [id number] 16:38:00 Test Item Value Reference Range Comments TOTAL PROTEIN (BEAKER) (test hjvd=914) 9.0 gm/dL 6.0-8.3 ALBUMIN (BEAKER) (test efyv=7831) 2.8 g/dL 3.5-5.0 BILIRUBIN TOTAL (BEAKER) (test ggsc=526) 1.2 mg/dL 0.2-1.2 BILIRUBIN DIRECT (BEAKER) (test xzhh=403) 0.7 mg/dL 0.1-0.5 ALKALINE PHOSPHATASE (BEAKER) (test etqf=634) 111 U/L 40-150 AST (SGOT) (BEAKER) (test eeia=000) 31 U/L 5-34 ALT (SGPT) (BEAKER) (test wpnw=931) 12 U/L 6-55 BASIC METABOLIC [id number] 16:38:00 Test Item Value Reference Range Comments SODIUM (BEAKER) (test 133 meq/L 136-145 viey=224) POTASSIUM (BEAKER) (test 4.0 meq/L 3.5-5.1 iclp=984) CHLORIDE (BEAKER) (test 100 meq/L 98-107 ghic=693) CO2 (BEAKER) (test 27 meq/L 22-29 wcky=061) BLOOD UREA NITROGEN 20 mg/dL 7-21 (BEAKER) (test ksww=836) CREATININE (BEAKER) (test 1.07 mg/dL 0.57-1.25 lqgs=206) GLUCOSE RANDOM (BEAKER) 71 mg/dL 70-105 (test lltf=551) CALCIUM (BEAKER) (test 9.4 mg/dL 8.4-10.2 tkjp=680) EGFR (BEAKER) (test 49 mL/min/1.73 sq m ESTIMATED GFR IS NOT nttr=3575) ACCURATE CREATININE CLEARANCE IN PREDICTING GLOMERULAR FILTRATION RATE. ESTIMATED GFR IS NOT APPLICABLE FOR DIALYSIS PATIENTS. [id number] 16:33:00 Test Item Value Reference Range Comments AMMONIA (BEAKER) (test ddwl=545) 40 mol/L 18-72 PROTHROMBIN [id number] 16:29:00 Test Item Value Reference Range Comments PROTIME (BEAKER) (test hzrb=576) 16.5 seconds 11.7-14.7 INR (BEAKER) (test tzcs=789) 1.3 <=5.9 RECOMMENDED COUMADIN/WARFARIN INR THERAPY RANGESSTANDARD DOSE: 2.0 - 3.0 Includes: PROPHYLAXIS forvenous thrombosis, systemic embolization; TREATMENT for venous thrombosis and/or pulmonary embolus.HIGH RISK: Target INR is 2.5-3.5 for patients with mechanical heart valves.CBC W/PLT COUNT & AUTO [id number] 16:22:00 Test Item Value Reference Range Comments WHITE BLOOD CELL COUNT (BEAKER) (test chsc=163) 5.0 K/ L 3.5-10.5 RED BLOOD CELL COUNT (BEAKER) (test sicf=219) 3.39 M/ L 3.93-5.22 HEMOGLOBIN (BEAKER) (test vrro=381) 10.7 GM/DL 11.2-15.7 HEMATOCRIT (BEAKER) (test ovuo=754) 33.1 % 34.1-44.9 MEAN CORPUSCULAR VOLUME (BEAKER) (test qhlm=653) 97.6 fL 79.4-94.8 MEAN CORPUSCULAR HEMOGLOBIN (BEAKER) (test 31.6 pg 25.6-32.2 rnnk=137) MEAN CORPUSCULAR HEMOGLOBIN CONC (BEAKER) (test 32.3 GM/DL 32.2-35.5 hiko=148) RED CELL DISTRIBUTION WIDTH (BEAKER) (test 15.0 % 11.7-14.4 gdqk=178) PLATELET COUNT (BEAKER) (test pyar=156) 98 K/CU MM 150-450 MEAN PLATELET VOLUME (BEAKER) (test vlrx=697) 10.0 fL 9.4-12.3 NUCLEATED RED BLOOD CELLS (BEAKER) (test 0 /100 WBC 0-0 zcot=139) NEUTROPHILS RELATIVE PERCENT (BEAKER) (test 71 % xela=291) LYMPHOCYTES RELATIVE PERCENT (BEAKER) (test 14 % fdoe=949) MONOCYTES RELATIVE PERCENT (BEAKER) (test 12 % ykiw=194) EOSINOPHILS RELATIVE PERCENT (BEAKER) (test 2 % mukp=079) BASOPHILS RELATIVE PERCENT (BEAKER) (test 1 % kyex=865) NEUTROPHILS ABSOLUTE COUNT (BEAKER) (test 3.51 K/ L 1.56-6.13 ucoh=928) LYMPHOCYTES ABSOLUTE COUNT (BEAKER) (test 0.69 K/ L 1.18-3.74 gejj=467) MONOCYTES ABSOLUTE COUNT (BEAKER) (test vmlv=591) 0.62 K/ L 0.24-0.36 EOSINOPHILS ABSOLUTE COUNT (BEAKER) (test 0.10 K/ L 0.04-0.36 qhkl=252) BASOPHILS ABSOLUTE COUNT (BEAKER) (test wwqz=009) 0.04 K/ L 0.01-0.08 IMMATURE GRANULOCYTES-RELATIVE PERCENT (BEAKER) 0 % 0-1 (test uadh=5808) ALPHA FETOPROTEIN (AFP), TUMOR [id number] 17:15:00 Test Item Value Reference Range Comments ALPHA-FETOPROTEIN (BEAKER) (test vyxe=1866) 3.3 ng/mL <10.0 [id number] 16:34:00 Test Item Value Reference Range Comments MAGNESIUM (BEAKER) (test grpj=548) 1.8 mg/dL 1.6-2.6 BASIC METABOLIC [id number] 16:34:00 Test Item Value Reference Range Comments SODIUM (BEAKER) (test 133 meq/L 136-145 fpud=104) POTASSIUM (BEAKER) (test 3.9 meq/L 3.5-5.1 jaxa=958) CHLORIDE (BEAKER) (test 99 meq/L 98-107 mkvb=441) CO2 (BEAKER) (test 25 meq/L 22-29 xyfo=477) BLOOD UREA NITROGEN 12 mg/dL 7-21 (BEAKER) (test ukww=425) CREATININE (BEAKER) (test 0.97 mg/dL 0.57-1.25 crue=914) GLUCOSE RANDOM (BEAKER) 93 mg/dL 70-105 (test ripk=393) CALCIUM (BEAKER) (test 9.0 mg/dL 8.4-10.2 ypat=800) EGFR (BEAKER) (test 54 mL/min/1.73 sq m ESTIMATED GFR IS NOT ylrb=9774) ACCURATE CREATININE CLEARANCE IN PREDICTING GLOMERULAR FILTRATION RATE. ESTIMATED GFR IS NOT APPLICABLE FOR DIALYSIS PATIENTS. Specimen slightly ictericHEPATIC FUNCTION [id number] 16:34:00 Test Item Value Reference Range Comments TOTAL PROTEIN (BEAKER) (test dzth=152) 8.0 gm/dL 6.0-8.3 ALBUMIN (BEAKER) (test qjjq=1748) 3.0 g/dL 3.5-5.0 BILIRUBIN TOTAL (BEAKER) (test ubuv=282) 1.9 mg/dL 0.2-1.2 BILIRUBIN DIRECT (BEAKER) (test jcrx=676) 0.8 mg/dL 0.1-0.5 ALKALINE PHOSPHATASE (BEAKER) (test ffif=991) 122 U/L 40-150 AST (SGOT) (BEAKER) (test bmci=511) 30 U/L 5-34 ALT (SGPT) (BEAKER) (test nwuj=805) 12 U/L 6-55 Specimen slightly ictericPROTHROMBIN [id number] 16:17:00 Test Item Value Reference Range Comments PROTIME (BEAKER) (test mcaf=256) 17.3 seconds 11.7-14.7 INR (BEAKER) (test ttni=517) 1.4 <=5.9 RECOMMENDED COUMADIN/WARFARIN INR THERAPY RANGESSTANDARD DOSE: 2.0 - 3.0 Includes: PROPHYLAXIS forvenous thrombosis, systemic embolization; TREATMENT for venous thrombosis and/or pulmonary embolus.HIGH RISK: Target INR is 2.5-3.5 for patients with mechanical heart valves.CBC W/PLT COUNT & AUTO [id number] 16:17:00 Test Item Value Reference Range Comments WHITE BLOOD CELL COUNT (BEAKER) (test razb=304) 5.6 K/ L 3.5-10.5 RED BLOOD CELL COUNT (BEAKER) (test stny=476) 3.83 M/ L 3.93-5.22 HEMOGLOBIN (BEAKER) (test oxiu=013) 12.0 GM/DL 11.2-15.7 HEMATOCRIT (BEAKER) (test lxmz=496) 36.8 % 34.1-44.9 MEAN CORPUSCULAR VOLUME (BEAKER) (test xzvz=945) 96.1 fL 79.4-94.8 MEAN CORPUSCULAR HEMOGLOBIN (BEAKER) (test 31.3 pg 25.6-32.2 tgtv=937) MEAN CORPUSCULAR HEMOGLOBIN CONC (BEAKER) (test 32.6 GM/DL 32.2-35.5 dejy=457) RED CELL DISTRIBUTION WIDTH (BEAKER) (test 15.9 % 11.7-14.4 afqd=050) PLATELET COUNT (BEAKER) (test bhkx=333) 83 K/CU MM 150-450 MEAN PLATELET VOLUME (BEAKER) (test aprw=989) 11.1 fL 9.4-12.3 NUCLEATED RED BLOOD CELLS (BEAKER) (test 0 /100 WBC 0-0 iqfb=550) NEUTROPHILS RELATIVE PERCENT (BEAKER) (test 54 % jtst=119) LYMPHOCYTES RELATIVE PERCENT (BEAKER) (test 36 % pgpa=731) MONOCYTES RELATIVE PERCENT (BEAKER) (test 8 % ifvp=526) EOSINOPHILS RELATIVE PERCENT (BEAKER) (test 2 % loyq=645) BASOPHILS RELATIVE PERCENT (BEAKER) (test 1 % gtum=517) NEUTROPHILS ABSOLUTE COUNT (BEAKER) (test 3.01 K/ L 1.56-6.13 iyri=611) LYMPHOCYTES ABSOLUTE COUNT (BEAKER) (test 1.98 K/ L 1.18-3.74 dbdh=343) MONOCYTES ABSOLUTE COUNT (BEAKER) (test nhaq=280) 0.44 K/ L 0.24-0.36 EOSINOPHILS ABSOLUTE COUNT (BEAKER) (test 0.10 K/ L 0.04-0.36 rydx=763) BASOPHILS ABSOLUTE COUNT (BEAKER) (test vojt=637) 0.04 K/ L 0.01-0.08 IMMATURE GRANULOCYTES-RELATIVE PERCENT (BEAKER) 0 % 0-1 (test iued=4678) ALPHA FETOPROTEIN (AFP), TUMOR [id number] 16:14:00 Test Item Value Reference Range Comments ALPHA-FETOPROTEIN (BEAKER) (test fmoe=9635) 5.7 ng/mL <10.0 Effective 07/17/2014: Reference Range ChangeNew: <10.0 Previous: 0.0- [id number] 15:57:00 Test Item Value Reference Range Comments MAGNESIUM (BEAKER) (test axni=170) 1.9 mg/dL 1.6-2.6 BASIC METABOLIC [id number] 15:57:00 Test Item Value Reference Range Comments SODIUM (BEAKER) (test 139 meq/L 136-145 sdus=768) POTASSIUM (BEAKER) (test 4.5 meq/L 3.5-5.1 fmqi=093) CHLORIDE (BEAKER) (test 105 meq/L 98-107 drlo=074) CO2 (BEAKER) (test 25 meq/L 22-29 swyb=034) BLOOD UREA NITROGEN 15 mg/dL 7-21 (BEAKER) (test etkx=638) CREATININE (BEAKER) (test 0.95 mg/dL 0.57-1.25 fuyj=867) GLUCOSE RANDOM (BEAKER) 86 mg/dL 70-105 (test hier=210) CALCIUM (BEAKER) (test 9.4 mg/dL 8.4-10.2 onfx=379) EGFR (BEAKER) (test 56 mL/min/1.73 sq m ESTIMATED GFR IS NOT ypcg=3757) ACCURATE CREATININE CLEARANCE IN PREDICTING GLOMERULAR FILTRATION RATE. ESTIMATED GFR IS NOT APPLICABLE FOR DIALYSIS PATIENTS. Specimen slightly ictericHEPATIC FUNCTION [id number] 15:57:00 Test Item Value Reference Range Comments TOTAL PROTEIN (BEAKER) (test bitl=582) 7.6 gm/dL 6.0-8.3 ALBUMIN (BEAKER) (test jkds=6747) 3.2 g/dL 3.5-5.0 BILIRUBIN TOTAL (BEAKER) (test hnga=392) 1.8 mg/dL 0.2-1.2 BILIRUBIN DIRECT (BEAKER) (test mavu=193) 0.8 mg/dL 0.1-0.5 ALKALINE PHOSPHATASE (BEAKER) (test qeqy=867) 112 U/L 40-150 AST (SGOT) (BEAKER) (test fsaa=978) 33 U/L 5-34 ALT (SGPT) (BEAKER) (test cqtc=206) 17 U/L 6-55 Specimen slightly ictericPROTHROMBIN [id number] 15:56:00 Test Item Value Reference Range Comments PROTIME (BEAKER) (test zfxj=176) 16.7 seconds 11.7-14.7 INR (BEAKER) (test yocj=429) 1.4 <=5.9 RECOMMENDED COUMADIN/WARFARIN INR THERAPY RANGESSTANDARD DOSE: 2.0 - 3.0 Includes: PROPHYLAXIS forvenous thrombosis, systemic embolization; TREATMENT for venous thrombosis and/or pulmonary embolus.HIGH RISK: Target INR is 2.5-3.5 for patients with mechanical heart valves.CBC W/PLT COUNT & AUTO [id number] 15:56:00 Test Item Value Reference Range Comments WHITE BLOOD CELL COUNT (BEAKER) (test mcto=912) 5.3 K/ L 4.0-10.0 RED BLOOD CELL COUNT (BEAKER) (test htzt=725) 4.21 M/ L 4.00-5.00 HEMOGLOBIN (BEAKER) (test vffg=450) 14.1 GM/DL 12.0-15.0 HEMATOCRIT (BEAKER) (test zesf=128) 41.7 % 36.0-45.0 MEAN CORPUSCULAR VOLUME (BEAKER) (test ygdy=273) 99.1 fL 82.0-99.0 MEAN CORPUSCULAR HEMOGLOBIN (BEAKER) (test 33.4 pg 27.0-33.0 rkpj=303) MEAN CORPUSCULAR HEMOGLOBIN CONC (BEAKER) (test 33.7 GM/DL 32.0-36.0 bkyr=288) RED CELL DISTRIBUTION WIDTH (BEAKER) (test 13.2 % 10.3-14.2 wrsm=024) PLATELET COUNT (BEAKER) (test vzle=037) 77 K/CU MM 150-430 MEAN PLATELET VOLUME (BEAKER) (test dsmt=741) 8.4 fL 6.5-10.5 NUCLEATED RED BLOOD CELLS (BEAKER) (test 0 /100 WBC 0-0 zlcn=109) NEUTROPHILS RELATIVE PERCENT (BEAKER) (test 54 % elyh=726) LYMPHOCYTES RELATIVE PERCENT (BEAKER) (test 33 % rnht=935) MONOCYTES RELATIVE PERCENT (BEAKER) (test 10 % veli=051) EOSINOPHILS RELATIVE PERCENT (BEAKER) (test 3 % xbpx=885) BASOPHILS RELATIVE PERCENT (BEAKER) (test 0 % coqh=454) NEUTROPHILS ABSOLUTE COUNT (BEAKER) (test 2.86 K/ L 1.80-8.00 ppju=321) LYMPHOCYTES ABSOLUTE COUNT (BEAKER) (test 1.77 K/ L 1.48-4.50 ugtd=936) MONOCYTES ABSOLUTE COUNT (BEAKER) (test guqk=790) 0.56 K/ L 0.00-1.30 EOSINOPHILS ABSOLUTE COUNT (BEAKER) (test 0.13 K/ L 0.00-0.50 lfpl=631) BASOPHILS ABSOLUTE COUNT (BEAKER) (test qjho=033) 0.02 K/ L 0.00-0.20 0.77LKTF-[id number] 11:05:00 Test Item Value Reference Range Comments POC-CREATININE (BEAKER) 0.9 mg/dL 0.6-1.[address] [facility] [address] [facility] (test rqzd=6522) [facility] [address] POC-EGFR (BEAKER) (test 59 mL/min/1.73M2 zagx=1929)
[2018-12-07 17:54] LABS: Absolute Lymphocytes (CBC) 0.9 K/uL (0.7-4.9); Absolute Monocytes 0.5 K/uL (0.1-1.3); Absolute Neutrophil 2.9 K/uL (1.8-8.0); Eosinophils % 1.6 % (0-4.4); Lymphocytes % 19.6 % (15.3-44.8); MPV 7.7 fL (7.6-11.3); Monocytes % 11.9 % (3.3-12.3); RBC Red Blood Cell Count 3.76 M/uL (3.86-4.86)
[2018-12-07 18:16] LABS: Bilirubin Direct 0.4 mg/dL (0-0.2); Potassium 3.8 mmol/L (3.5-5.1); Protein, Total 7.8 g/dL (6.4-8.2)
[2018-12-07 18:39] LABS: Protime INR 1.35
--- NOTE | 2018-12-07 19:37 | EDPHYS ---
Physician Documentation [facility] Name: Whitney Villalta Age: 88 yrs Sex: Female : 1930 Arrival Date: 12/07/2018 Time: 16:39 Bed 7 Private MD: Fareed Ballesteros H ED Physician Jasson Horn HPI: 12/07 17:12 This 88 yrs old Female presents to ER via Wheelchair with complaints of pm1 Abdominal Swelling, Shortness of breath. 17:12 The patient presents with abdominal pain that is diffuse, abdominal distention that is pm1 diffuse. Onset: The symptoms/episode began/occurred 2 month(s) ago. The symptoms do not radiate. Associated signs and symptoms: Pertinent positives: shortness of breath, Pertinent negatives: nausea, vomiting, and diarrhea. The symptoms are described as achy. Modifying factors: The symptoms are alleviated by nothing, the symptoms are aggravated by walking. Severity of pain: in the emergency department the pain is actually worse. The patient has experienced a previous episode, approximately 2 months ago, and the symptoms today are exactly the same, ascites requiring paracentesis . The patient has been recently seen by a physician: Dr. Sequeira. patient sent to the ER for admission for paracentesis by Dr. Sequeira. Historical: - Allergies: 16:46 adhesive tapes; tw2 16:46 Morphine; tw2 - PMHx: 16:46 colon cancer; Liver disease; stage 3 cirrhosis; Lower extremity edema; Pneumonia; tw2 - Immunization history:: Adult Immunizations. - Social history:: Smoking status: . - Ebola Screening: : Patient denies travel to an Ebola-affected area in the 21 days before illness onset. ROS: 17:12 Constitutional: Negative for fever, chills, and weight loss, Eyes: Negative for injury, pm1 pain, redness, and discharge, ENT: Negative for injury, pain, and discharge, Neck: Negative for injury, pain, and swelling, Cardiovascular: Negative for chest pain, palpitations, and edema. 17:12 Back: Negative for injury and pain, : Negative for injury, bleeding, discharge, and swelling, MS/Extremity: Negative for injury and deformity, Skin: Negative for injury, rash, and discoloration, Neuro: Negative for headache, weakness, numbness, tingling, and seizure. 17:12 Respiratory: Positive for shortness of breath, on exertion. Negative for cough. 17:12 Abdomen/GI: Positive for abdominal pain, Negative for nausea, vomiting, and diarrhea. Exam: 17:12 Constitutional: This is a well developed, well nourished patient who is awake, alert, pm1 and in no acute distress. Head/Face: Normocephalic, atraumatic. Eyes: Pupils equal round and reactive to light, extra-ocular motions intact. Lids and lashes normal. Conjunctiva and sclera are non-icteric and not injected. Cornea within normal limits. Periorbital areas with no swelling, redness, or edema. ENT: Nares patent. No nasal discharge, no septal abnormalities noted. Tympanic membranes are normal and external auditory canals are clear. Oropharynx with no redness, swelling, or masses, exudates, or evidence of obstruction, uvula midline. Mucous membranes moist. Neck: Trachea midline, no thyromegaly or masses palpated, and no cervical lymphadenopathy. Supple, full range of motion without nuchal rigidity, or vertebral point tenderness. No Meningismus. Chest/axilla: Normal chest wall appearance and motion. Nontender with no deformity. No lesions are appreciated. Cardiovascular: Regular rate and rhythm with a normal S1 and S2. No gallops, murmurs, or rubs. Normal PMI, no JVD. No pulse deficits. Respiratory: Lungs have equal breath sounds bilaterally, clear to auscultation and percussion. No rales, rhonchi or wheezes noted. No increased work of breathing, no retractions or nasal flaring. 17:12 Back: No spinal tenderness. No costovertebral tenderness. Full range of motion. Skin: Warm, dry with normal turgor. Normal color with no rashes, no lesions, and no evidence of cellulitis. MS/ Extremity: Pulses equal, no cyanosis. Neurovascular intact. Full, normal range of motion. 17:12 Abdomen/GI: Inspection: distension, that is moderate, Bowel sounds: normal, Palpation: soft, mild abdominal tenderness, mass, is not appreciated, rebound tenderness, is not appreciated. 17:12 Neuro: Orientation: is normal, Motor: is normal, moves all fours, strength is normal, strength is 5/5 in all extremities. Vital Signs: 16:45 BP 116 / 68; Pulse 107; Resp 17; Temp 97.6(TE); Pulse Ox 96% on R/A; Weight 67.59 kg tw2 (R); Pain 5/10; 18:37 BP 110 / 67; Pulse 95; Resp 14; Pulse Ox 97% ; bp 19:23 BP 106 / 75; Pulse 99; Resp 16; Pulse Ox 99% on R/A; aa1 20:45 BP 108 / 60; Pulse 99; Resp 18; Temp 98.8; Pulse Ox 98% on R/A; aa1 21:20 BP 107 / 54; Pulse 98; Resp 16; Pulse Ox 99% on R/A; aa1 MDM: 16:58 Patient medically screened. pm1 17:08 Data reviewed: vital signs. Data interpreted: Pulse oximetry: on room air is 96 %. pm1 Interpretation: normal. 17:43 Physician consultation: Piter Espinal MD was called at 17:22, was contacted pm1 at 17:43, regarding admission, patient's condition, would like consultation with Dr. Leydi evangelista as consult, would like admission per Dr. Marilyn Edmond MD would like further tests performed, basic blood tests, Blood culture, PT-INR, Wants patient admitted for 24 hour observation to hospitalist, consult interventional radiology, and albumin infusion after patient's paracentesis . 17:52 Physician consultation: Dale Silva MD was called at 17:52, was contacted at 17:52, pm1 regarding consult, patient's condition, Radiology will be available tomorrow for paracentesis if needed. Discussed if there is a need for CT imaging now with a clinical diagnosis of ascites. CT is not necessary because they can perform imaging prior to procedure to determine if there is enough fluid to drain. 17:58 Physician consultation: Martha Pena MD was called at 17:58, was contacted at 17:58, pm1 regarding consult, patient's condition, and will see patient covering for Dr. Sequeira. 19:34 Counseling: I had a detailed discussion with the patient and/or guardian regarding: the pm1 historical points, exam findings, and any diagnostic results supporting the discharge/admit diagnosis, lab results, the need for further work-up and treatment in the hospital. 19:38 Physician consultation: Marilyn Edmond MD was called at 19:39, was contacted at 19:39, pm1 regarding admission, patient's condition, and will see patient. 12/07 17:12 Order name: Basic Metabolic Panel; Complete Time: 18:31 pm1 12/07 17:12 Order name: CBC with Diff; Complete Time: 18:31 pm1 12/07 17:12 Order name: Creatinine for Radiology; Complete Time: 18:31 pm12/07 17:12 Order name: Hepatic Function; Complete Time: 18:31 pm12/07 17:12 Order name: Lipase; Complete Time: 18:31 pm12/07 17:41 Order name: Blood Culture Adult (2) pm1 12/07 17:41 Order name: PT-INR; Complete Time: 18:56 pm12/07 19:50 Order name: CBC with Automated Diff EDIA 12/07 19:50 Order name: CBC with Automated Diff EDIA 12/07 19:50 Order name: Comprehensive Metabolic Panel EDIA 12/07 19:50 Order name: Comprehensive Metabolic Panel EDIA 12/07 19:50 Order name: Magnesium EDIA 12/07 19:50 Order name: Magnesium EDIA 12/07 19:50 Order name: Phosphorus EDIA 12/07 17:12 Order name: IV Saline Lock; Complete Time: 17:43 pm12/07 17:12 Order name: Labs collected and sent; Complete Time: 17:43 pm12/07 17:41 Order name: Urine Dipstick-Ancillary (obtain specimen); Complete Time: 20:38 pm12/07 19:50 Order name: CONS Physician Consult EDIA 12/07 19:50 Order name: Echo with Doppler EDIA 12/07 19:50 Order name: Phosphorus EDIA 12/07 19:50 Order name: NT PRO-BNP EDIA 12/07 19:51 Order name: NT PRO-BNP EDIA 12/07 19:51 Order name: Paracentesis Proc Guidance EDIA 12/07 19:51 Order name: Paracentesis Proc Guidance EDIA 12/07 20:39 Order name: Urine Dipstick--Ancillary (enter results) mw2 Administered Medications: No medications were administered Disposition: 12/08 06:49 Co-signature as Attending Physician, Jasson Horn MD I agree with the assessment and kdr plan of care. Disposition: 12/07/18 19:36 Hospitalization ordered by Marilyn Edmond for Observation. Preliminary diagnosis are Ascites, Dyspnea. - Bed requested for Telemetry/MedSurg (observation). - Status is Observation. aa1 - Condition is Stable. - Problem is new. - Symptoms have improved. UTI on Admission? No Signatures: Dispatcher [employer] EDMS Tanisha Ferreira RN RN Amanda Wallis RN RN aa1 Jasson Horn MD MD [facility] Williams Walton NP FANCY WIRE DRAWER pm1 Kimberly Martin RN RN tw2 Corrections: (The following items were deleted from the chart) 12/07 20:40 19:36 Hospitalization Ordered by Marilyn Edmond MD for Observation. Preliminary diagnosis is Ascites; Dyspnea. Bed requested for Telemetry/MedSurg (observation). Status is Observation. Condition is Stable. Problem is new. Symptoms have improved. UTI on Admission? No. pm1 21:29 20:40 12/07/2018 19:36 Hospitalization Ordered by Marilyn Edmond MD for Observation. aa1 Preliminary diagnosis is Ascites; Dyspnea. Bed requested for Telemetry/MedSurg (observation). Status is Observation. Condition is Stable. Problem is new. Symptoms have improved. UTI on Admission? No. mw
--- NOTE | 2018-12-07 19:37 | ER ---
Nurse's Notes [facility] Name: Whitney Villalta Age: 88 yrs Sex: Female : 1930 Arrival Date: 12/07/2018 Time: 16:39 Bed 7 Private MD: Fareed Ballesteros H Diagnosis: Ascites;Dyspnea Presentation: 12/07 16:43 Presenting complaint: Patient states: Dr. Sequeira was supposed to call and get the tw2 swelling drained from my stomach and see about my leg swelling. Transition of care: patient was not received from another setting of care. Onset of symptoms was December 07, 2018. Risk Assessment: Do you want to hurt yourself or someone else? Patient reports no desire to harm self or others. Initial Sepsis Screen: Does the patient meet any 2 criteria? No. Patient's initial sepsis screen is negative. Does the patient have a suspected source of infection? No. Patient's initial sepsis screen is negative. Care prior to arrival: None. 16:43 Method Of Arrival: Wheelchair tw2 16:43 Acuity: KELLY 2 tw2 Triage Assessment: 16:44 General: Appears in no apparent distress. Behavior is calm, cooperative, appropriate tw2 for age. Pain: Complains of pain in abdomen. GI: Abdomen is distended, Abd is rigid X 4 quads. Historical: - Allergies: 16:46 adhesive tapes; tw2 16:46 Morphine; tw2 - PMHx: 16:46 colon cancer; Liver disease; stage 3 cirrhosis; Lower extremity edema; Pneumonia; tw2 - Immunization history:: Adult Immunizations. - Social history:: Smoking status: . - Ebola Screening: : Patient denies travel to an Ebola-affected area in the 21 days before illness onset. Screenin:03 Abuse screen: Denies threats or abuse. Denies injuries from another. Nutritional bp screening: No deficits noted. Tuberculosis screening: No symptoms or risk factors identified. Fall Risk None identified. Assessment: 17:00 General: Appears in no apparent distress. comfortable, Behavior is calm, cooperative, bp appropriate for age. Pain: Complains of pain in abdomen. Neuro: Level of Consciousness is awake, alert, obeys commands, Oriented to person, place, time, situation, Appropriate for age. Cardiovascular: No deficits noted. Respiratory: Airway is patent Respiratory effort is even, unlabored, Respiratory pattern is regular, symmetrical. GI: Bowel sounds present X 4 quads. GI: Abdomen is noted to have ascites, Abd is rigid. : No signs and/or symptoms were reported regarding the genitourinary system. EENT: No deficits noted. Derm: No deficits noted. Musculoskeletal: Circulation, motion, and sensation intact. Range of motion: intact in all extremities, Swelling present in abdomen, right leg and left leg. 19:23 Reassessment: Patient appears in no apparent distress at this time. Patient and/or aa1 family updated on plan of care and expected duration. Pain level reassessed. Patient is alert, oriented x 3, equal unlabored respirations, skin warm/dry/pink. Pt awaiting admission orders from ER provider. 20:20 Reassessment: Patient appears in no apparent distress at this time. Patient and/or aa1 family updated on plan of care and expected duration. Pain level reassessed. Patient is alert, oriented x 3, equal unlabored respirations, skin warm/dry/pink. Pt awaiting bed assignment. 21:15 Reassessment: Patient appears in no apparent distress at this time. Patient is alert, aa1 oriented x 3, equal unlabored respirations, skin warm/dry/pink. Report given to KULDIP Prasad on 2nd floor Patient states feeling better. Vital Signs: 16:45 BP 116 / 68; Pulse 107; Resp 17; Temp 97.6(TE); Pulse Ox 96% on R/A; Weight 67.59 kg tw2 (R); Pain 5/10; 18:37 BP 110 / 67; Pulse 95; Resp 14; Pulse Ox 97% ; bp 19:23 BP 106 / 75; Pulse 99; Resp 16; Pulse Ox 99% on R/A; aa1 20:45 BP 108 / 60; Pulse 99; Resp 18; Temp 98.8; Pulse Ox 98% on R/A; aa1 21:20 BP 107 / 54; Pulse 98; Resp 16; Pulse Ox 99% on R/A; aa1 ED Course: 16:39 Patient arrived in ED. mr 16:39 Fareed Ballesteros DO is Private Physician. mr 16:44 Triage completed. tw2 16:45 Arm band placed on. tw2 16:47 Avtar Barrett, RN is Primary Nurse. bp 16:51 Williams Walton, CALEB is PHCP. pm1 16:51 Jasson Horn MD is Attending Physician. pm1 17:45 Inserted saline lock: 22 gauge in left forearm, using aseptic technique. Blood bp collected. 18:03 Patient has correct armband on for positive identification. Bed in low position. Call bp light in reach. Side rails up X2. Adult w/ patient. 19:35 Marilyn Edmond MD is Hospitalizing Provider. pm1 20:31 Assisted with bedpan. aa1 20:31 No provider procedures requiring assistance completed. Urine collected: clean catch aa1 specimen, gera colored, Amount Voided: 80mL. Patient admitted, IV remains in place. Administered Medications: No medications were administered Outcome: 19:36 Decision to Hospitalize by Provider. pm1 21:20 Admitted to Med/surg accompanied by tech, family with patient, via stretcher, room 205, aa1 with chart, Report called to Shanice 21:20 Condition: stable 21:20 Discharge instructions given to patient, family, Instructed on the need for admit, Demonstrated understanding of instructions. 21:29 Patient left the ED. aa1 Signatures: Amanda Wallis RN RN aa1 McdermottAnna mr Williams Walton NP CURING ROOM WORKER pm1 Kimberly Martin RN RN tw2 Avtar Barrett RN RN bp
[2018-12-07] MEDS ORDERED: ALBUTEROL 2.5 MG/3 ML NEB SOL NEB PRN (19:45)
[2018-12-07] MEDS ORDERED: ONDANSETRON 4 MG/2 ML VIAL IV PRN (19:45)
[2018-12-07] MEDS ORDERED: IPRATROPIUM BROM 0.5MG/2.5ML NEB PRN (19:45)
[2018-12-07] MEDS ORDERED: ACETAMINOPHEN 500 MG TAB PO PRN (19:45)
[2018-12-07 21:34] LABS: Urine Blood 2+ (NEG); Urine Glucose NEGATIVE (NEG); Urine Protein 1+ (NEG)
[2018-12-07] MEDS: SPIRONOLACTONE 25 MG TABLET PO SCH (23:26)
[2018-12-08] MEDS: FUROSEMIDE 40 MG/4 ML VIAL IV SCH ×2 (01:15→09:00)
[2018-12-08 05:35] LABS: Absolute Monocytes 0.5 K/uL (0.1-1.3); Absolute Neutrophil 2.5 K/uL (1.8-8.0); Basophils % 0.8 % (0-1.3); Hematocrit 32.3 % (36.0-45.0); Lymphocytes % 24.7 % (15.3-44.8); MPV 7.9 fL (7.6-11.3); Monocytes % 12.2 % (3.3-12.3); RBC Red Blood Cell Count 3.47 M/uL (3.86-4.86)
[2018-12-08 05:55] LABS: Albumin 1.9 g/dL (3.4-5.0); Bilirubin Total 1.5 mg/dL (0.2-1.0); Phosphorus 2.7 mg/dL (2.5-4.9); Potassium 3.5 mmol/L (3.5-5.1); Protein, Total 7.5 g/dL (6.4-8.2)
[2018-12-08] MEDS ORDERED: PNEUMOCOCCAL VACCINE 0.5 ML IMVAC ONE (08:00)
[2018-12-08] MEDS: SPIRONOLACTONE 25 MG TABLET PO SCH ×2 (08:56→21:00)
[2018-12-08] MEDS: ENOXAPARIN 30 MG/0.3 ML SQ SCH (08:57)
--- NOTE | 2018-12-08 10:18 | P.HP ---
Certification for Inpatient Patient admitted to: Observation With expected LOS: <2 Midnights Patient will require the following post-hospital care: None Practitioner: I am a practitioner with admitting privileges, knowledge of patient current condition, hospital course, and medical plan of care. Services: Services provided to patient in accordance with Admission requirements found in Title 42 Section 412.3 of the Code of Federal Regulations Patient History Date of Service: 12/07/18 Reason for admission: tense ascites History of Present Illness: Patient is an 88-year-old female who came to the hospital with tense ascites. She was a little short of breath. She had a paracentesis done a couple months ago and after that she felt much better. Patient has a history of hepatitis C. She was on treatment for the hepatitis-C when she said her liver failure became worse. She has been following up in [place] but because of her age she does not qualify for liver transplant. She is getting supportive care with paracentesis and medical management. Plan is to discharge her home after the parecentesis. Allergies adhesive tape Allergy (Verified 10/24/18 09:59) Itching morphine Allergy (Verified 10/24/18 09:59) Itching/Hives/Rash Home Medications: Docusate Sodium 1 cap PO BEDTIME 07/11/18 Furosemide [Lasix*] 1 tab PO DAILY 07/11/18 Gabapentin 1 cap PO TID 07/11/18 Iron 28 mg PO BID 07/11/18 Magnesium Oxide [Magnesium] 1 tab PO BID 07/11/18 Potassium Chloride [Klor-Con M10] 1 tab PO BID 07/11/18 Rifaximin [Xifaxan*] 200 mg PO BID 07/11/18 Spironolactone [Aldactone*] 2 tab PO DAILY 07/11/18 Docusate Sodium 100 mg PO BEDTIME 12/07/18 Lactulose [Cephulac*] 30 ml PO BID 12/07/18 - Past Medical/Surgical History Has patient received pneumonia vaccine in the past: No Diabetic: No -: liver cirrhosis -: colon cancer -: hep c -: back surgery -: knee surgery -: gallbladder removal -: tonsillectomy -: hysterectomy - Family History Father Medical History: Heart disease Mother Notes: lived till 99 - Social History Smoking Status: Never smoker Alcohol use: No CD- Drugs: No Caffeine use: Yes Place of Residence: Home Review of Systems 10-point ROS is otherwise unremarkable Physical Examination - Vital Signs Temperature: 97.3 F Blood Pressure: 96/51 Pulse: 94 Respirations: 20 Pulse Ox (%): 98 - Physical Exam General: Alert, In no apparent distress, Oriented x3 HEENT: Atraumatic, PERRLA, Mucous membr. moist/pink, EOMI, Sclerae nonicteric Neck: Supple, 2+ carotid pulse no bruit, No LAD, JVD distended Respiratory: Diminished, Crackles/rales Cardiovascular: Regular rate/rhythm, Normal S1 S2 Gastrointestinal: Normal bowel sounds, Soft and benign, Non-distended, No tenderness Musculoskeletal: No tenderness, Swelling Integumentary: Tenderness/swelling Neurological: Normal speech, Normal tone, Sensation intact, Cranial nerves 3-12 intact, Normal affect, Abnormal gait, Abnormal strength Lymphatics: No axilla or inguinal lymphadenopathy - Studies Laboratory Data (last 24 hrs) 12/07/18 18:10: PT 15.7 H, INR 1.35 12/07/18 17:38: Creatinine 1.27 12/07/18 17:38: WBC 4.4, Hgb 11.6 L, Hct 35.0 L, Plt Count 117 L 12/07/18 17:38: Sodium 138, Potassium 3.8, BUN 14, Creatinine 1.26, Glucose 105 , Total Bilirubin 1.0, AST 28, ALT 13, Alkaline Phosphatase 76, Lipase 224 Assessment & Plan - Problems (Diagnosis) (1) Poorly controlled ascites Current Visit: Yes Status: Acute (2) Hepatitis C Current Visit: Yes Status: Acute (3) Cirrhosis Onset Date: 07/12/18 Current Visit: No Status: Acute Qualifiers: (4) Lower extremity edema Onset Date: 07/12/18 Current Visit: No Status: Acute - Plan Plan: 1. paracentesis - ultrasound-guided for therapeutic purposes 2. increase Lasix and Aldactone at the time of discharge 3. Continue with diuresing well in the hospital 4. outpatient follow-up with dermatology for lower extremity erythema which she states she has had for quite awhile 5. outpatient follow-up with hepatology 6. GI and DVT prophylaxis Discharge Plan: Home Plan to discharge in: 24 Hours - Advance Directives Does patient have a Living Will: No Does patient have a Durable POA for Healthcare: No - Code Status/Comfort Care Code Status Assessed: Yes Code Status: Full Code Critical Care: No Time Spent Managing PTS Care (In Minutes): 40
--- NOTE | 2018-12-08 10:59 | RAD REPORT ---
EXAM DESCRIPTION: US - Paracentesis Proc Guidance - 12/08/2018 9:45 am CLINICAL HISTORY: ascites Ascites COMPARISON: Paracentesis Proc Guidance dated 10/24/2018 FINDINGS: Informed consent was obtained and time-out was performed. Patient's abdomen was prepped and draped in the usual sterile fashion. 1% lidocaine was used for loca l anesthetic purposes. A small skin incision was made. A paracentesis catheter was guided into the peroneal cavity under son ographic guidance. A large volume paracentesis was performed yielding 10.5 liters. The patient tolerated the procedure well. Patient was administered IV albumin per protocol following the procedure. IMPRESSION: Successful ultrasound-guided paracentesis.
[2018-12-08] MEDS ORDERED: ALBUMIN HUMAN 25% 100 ML IV ONE ×2 (12:01→13:04)
--- NOTE | 2018-12-08 13:11 | RAD REPORT ---
EXAM DESCRIPTION: Jaswant Single View12/08/2018 1:04 pm CLINICAL HISTORY: Shortness of breath COMPARISON: June 2018 FINDINGS: Lungs are hyperaerated. Mild bilateral interstitial opacities are without obvious change The heart is normal size IMPRESSION: COPD Mild interstitial opacities are probably mostly if not all chronic
[2018-12-08] MEDS: GABAPENTIN 300 MG CAP PO SCH ×2 (13:45→20:52)
[2018-12-08] MEDS ORDERED: NA CHLORIDE 0.9% 250 ML IV ONE (16:35)
--- NOTE | 2018-12-08 17:23 | ECHO ---
HEIGHT: 5 ft 5 in WEIGHT: 142 lb 2 oz DATE OF STUDY: 12/08/[address]: Marilyn Edmond MD 2-DIMENSIONAL: YES M.MODE: YES DOPPLER: YES COLOR FLOW: YES TDS: PORTABLE: DEFINITY: BUBBLE STUDY: DIAGNOSIS: CONGESTIVE HEART FAILURE CARDIAC HISTORY: CATHERIZATION: NO SURGERY: NO PROSTHETIC VALVE: NO PACEMAKER: NO MEASUREMENTS (cm) DIASTOLIC (NORMALS) SYSTOLIC (NORMALS) IVSd 0.9 (0.6-1.2) LA Diam 2.6 (1.9-4.0) LVEF 73% LVIDd 2.9 (3.5-5.7) LVIDs 1.7 (2.0-3.5) %FS 41% LVPWd 1.1 (0.6-1.2) Ao Diam 2.7 (2.0-3.7) 2 DIMENSIONAL ASSESSMENT: RIGHT ATRIUM: NORMAL LEFT ATRIUM: NORMAL RIGHT VENTRICLE: NORMAL LEFT VENTRICLE: NORMAL TRICUSPID VALVE: NORMAL MITRAL VALVE: MITRAL ANNULAR CALCIFICATION PULMONIC VALVE: NORMAL AORTIC VALVE: NORMAL PERICARDIAL EFFUSION: NONE AORTIC ROOT: NORMAL LEFT VENTRICULAR WALL MOTION: NORMAL DOPPLER/COLOR FLOW: MILD MITRAL REGURGITATION AND TRICUSPID REGURGITATION. NORMAL RIGHT VENTRICULAR SYSTOLIC PRESSURE. COMMENTS: NORMAL LEFT VENTRICULAR EJECTION FRACTION. MITRAL ANNULAR CALCIFICATION. MILD MITRAL REGURGITATION AND TRICUSPID REGURGITATION. TECHNOLOGIST: RAMAKRISHNA CRANE
--- NOTE | 2018-12-08 20:28 | RAD REPORT ---
EXAM DESCRIPTION: US - Renal Ultrasound-Complete - 12/08/2018 8:09 pm CLINICAL HISTORY: Acute renal insufficiency FINDINGS: The right kidney measures 10 cm with an increased echotexture. The left kidney measures 10 cm with an increased echotexture. A 1.3 centimeter cyst Hydronephrosis is not seen. No gross abnormality of bladder is seen IMPRESSION: Increased renal echotexture consistent with parenchymal disease
[2018-12-08] MEDS: LACTULOSE 20 GM/30 ML UCUP PO SCH (20:52)
[2018-12-08] MEDS: DOCUSATE NA 100 MG CAP PO SCH (20:52)
[2018-12-08] MEDS: HOME MED 1 EA UNK (Magnesium Oxide [Magnesium] 1 TAB) PO SCH (21:00)
[2018-12-08] MEDS: RIFAXIMIN 200 MG PO SCH (21:00)
[2018-12-08] MEDS: IRON 28 MG PO SCH (21:00)
[2018-12-09] MEDS ORDERED: ALBUMIN HUMAN 25% 100 ML IV ONE (03:28)
[2018-12-09 05:39] LABS: Albumin 2.2 g/dL (3.4-5.0); Phosphorus 2.1 mg/dL (2.5-4.9); Potassium 3.5 mmol/L (3.5-5.1)
[2018-12-09 05:41] LABS: Thyroid Stimulating Hormone 4.25 uIU/mL (0.360-3.740)
[2018-12-09 06:51] VITALS: BMI 20.2
--- NOTE | 2018-12-09 08:10 | CON ---
Date of Consultation: 12/08/2018 Consulting Physician: Dr. Lynn Reason For Consultation: Elevated BUN and creatinine, hypertension, anasarca. History Of Present Illness: This is a pleasant 88-year-old female with significant past medical history of hep C complicated with advance cirrhosis secondary to blood transfusion; chronic kidney disease, stage 3, follows with Dr. Sequeira , baseline creatinine 1, GFR 50 to 55. The patient had recurrent paracentesis. Last paracentesis was in September. The patient in the last few days started having abdominal distention, increased abdominal girth. For that reason, reported to the hospital. In the hospital, primary workup showed elevation in creatinine to 1.2; anasarca, for that reason, the patient was admitted for treatment. The patient was taken to Interventional Radiology, 10.5 L of paracentesis has been done, blood pressure around 100 systolic. The patient denied taking any nonsteroidal. No recent change in her medication. No IV contrast. No other hospitalization. Past Medical History: Includes hep C complicated with liver cirrhosis secondary to blood transfusion. Home Medications: Includes Lasix 40 daily, IV iron, gabapentin, Aldactone, and lactulose. Allergies: TO ADHESIVE AND MORPHINE. Family History: Positive for hypertension. Social History: Denies smoking. Denies drinking. Denies drug abuse. Review of Systems: Head and Neck: No red eye. No ear pain. Gastrointestinal: No nausea, no vomiting. Has increased abdominal girth. Genitourinary: No polyuria. No dysuria. No hematuria. Gynecologic: No vaginal discharge. Respiratory: No shortness of breath. Cardiovascular: No chest pain. Endocrine: No polydipsia. Skin: No rash. Physical Examination: Vital Signs: When I saw the patient, blood pressure 105/52, pulse of 90, afebrile. Chest: Clear to auscultation. Heart: S1, S2 regular. Abdomen: Soft, nontender. Mild ascites, status post paracentesis with 10.5 L. Extremities: Plus edema. Macular change show with demarcation, looks like fungal skin infection. Neurological: Alert and oriented x3. Notremor Laboratory Data: H and H 10.9/32.3, platelets 121. Sodium 138, potassium 3.5, bicarb 26, BUN 13, creatinine 1.3, calcium 7.9, magnesium 1.9. TSH is still pending. Urinalysis, specific gravity of 1.020, +1 protein. Assessment And Plan: 1. Acute kidney injury secondary to multifactorial, possibly secondary to hepatorenal I /poor perfusion acute tubular necrosis secondary to low blood pressure , To rule out any autoimmune given the hep C history, we will send for serology. Given the anemia, we will send for light chain to be R/o SPEP serum protein electrophoresis, still over volume status post paracentesis. we will to continue diuresis. We will monitor the patient. and we will follow up. 2. Hypertension, currently hypotensive. will continue the lasix to establish better volume control. 3. Anasarca, secondary to liver cirrhosis. Will follow up with primary. Continue p.r.n. paracentesis. We will consult GI. 4. Hypokalemia/hypomagnesemia. We will supplement. 5. Acute kidney injury, hepatorenal type I. MA/MODL Voice ID: [id number] Report ID: [id number] EMILIANO
--- NOTE | 2018-12-09 08:24 | P.PN ---
Subjective Date of Service: 12/08/18 PATIENT IS DOING WELL WITH NO NEW COMPLAINTS; TOLERATED PARACENTESIS WELL. BLOOD PRESSURE WAS A LITTLE ON THE LOWER SIDE. GIVE HER SOME ALBUMIN AND FLUIDS. HER BLOOD PRESSURE IS STABLE. HER HEART RATE IS STABLE. Review of Systems 10-point ROS is otherwise unremarkable Physical Examination - Vital Signs Temperature: 97.3 F Blood Pressure: 90/51 Pulse: 81 Respirations: 14 Pulse Ox (%): 99 - Physical Exam General: Alert, In no apparent distress, Oriented x3 Respiratory: Clear to auscultation bilaterally, Normal air movement Cardiovascular: Regular rate/rhythm, Normal S1 S2 Gastrointestinal: Normal bowel sounds, Soft and benign, Non-distended, No tenderness Musculoskeletal: No clubbing, No swelling, No tenderness Integumentary: No rashes Neurological: Normal speech, Normal tone, Normal affect - Studies Medications List Reviewed: Yes Assessment & Plan - Problems (Diagnosis) (1) Poorly controlled ascites Current Visit: Yes Status: Acute (2) Hepatitis C Current Visit: Yes Status: Acute (3) Cirrhosis Onset Date: 07/12/18 Current Visit: No Status: Acute Qualifiers: (4) Lower extremity edema Onset Date: 07/12/18 Current Visit: No Status: Acute - Plan Plan: 1. paracentesis - REMOVED 10.5 L 2. HOLDING LASIX AND ALDACTONE 3. ALBUMIN IV GIVEN 4. outpatient follow-up with dermatology for lower extremity erythema which she states she has had for quite awhile 5. ANTICIPATE DISCHARGE HOME IN THE MORNING 6. outpatient follow-up with hepatology 7. GI and DVT prophylaxis Discharge Plan: Home Plan to discharge in: Greater than 2 days - Advance Directives Does patient have a Living Will: No Does patient have a Durable POA for Healthcare: No - Code Status/Comfort Care Code Status: Full Code Critical Care: No Time Spent Managing PTS Care (In Minutes): 30
[2018-12-09] MEDS: IRON 28 MG PO SCH ×2 (09:00→20:29)
[2018-12-09] MEDS: FUROSEMIDE 40 MG TABLET PO SCH (09:00)
[2018-12-09] MEDS: RIFAXIMIN 200 MG PO SCH ×2 (09:00→20:29)
[2018-12-09] MEDS: SPIRONOLACTONE 25 MG TABLET PO SCH (09:00)
[2018-12-09] MEDS: HOME MED 1 EA UNK (Magnesium Oxide [Magnesium] 1 TAB) PO SCH ×2 (09:00→20:29)
[2018-12-09] MEDS: ENOXAPARIN 30 MG/0.3 ML SQ SCH (10:36)
[2018-12-09] MEDS: GABAPENTIN 300 MG CAP PO SCH ×3 (10:36→20:27)
[2018-12-09] MEDS: LACTULOSE 20 GM/30 ML UCUP PO SCH ×2 (10:39→20:27)
--- NOTE | 2018-12-09 13:31 | P.PN ---
Subjective Date of Service: 12/09/18 Chief Complaint: tense ascites Subjective: Improving Pt with Hep C Cirrohosis and TIARA presented with abd distension S/p 10 liters paracntecis cr down to baseline BP : borderline, cont lasix and aldactone PT/OT Physical Examination - Vital Signs Temperature: 97.3 F Blood Pressure: 90/51 Pulse: 81 Respirations: 14 Pulse Ox (%): 99 - Physical Exam General: Oriented x3, Other (Thin ) HEENT: Atraumatic Neck: Supple, Without JVD or thyroid abnormality Respiratory: Clear to auscultation bilaterally, Normal air movement Cardiovascular: No edema, Regular rate/rhythm, Normal S1 S2 Gastrointestinal: Soft and benign, Distended Integumentary: No rashes - Studies Medications List Reviewed: Yes Assessment And Plan - Current Problems (Diagnosis) (1) Poorly controlled ascites Current Visit: Yes Status: Acute - Plan Acute kidney injury likely compartment +/- HRS II improved after paracentecis renal dose meds lower side BP due to cirrhosis asymptomatic might consider midodrine anasarca likely due to cirrhosis Alb 2.0 TSh wnl Anemia F/u anemia W/u
[2018-12-09] MEDS ORDERED: NA CHLORIDE 0.9% 250 ML IV ONE (17:50)
[2018-12-09] MEDS: DOCUSATE NA 100 MG CAP PO SCH (20:27)
[2018-12-09] MEDS: JUVEN PACKET PO SCH ×2 (20:28→21:00)
[2018-12-10 06:31] LABS: Urine Protein/Creatinine Ratio 0.11 ratio (<0.15)
[2018-12-10 06:35] LABS: Absolute Lymphocytes (CBC) 1.1 K/uL (0.7-4.9); Absolute Monocytes 0.5 K/uL (0.1-1.3); Absolute Neutrophil 2.4 K/uL (1.8-8.0); Basophils % 0.9 % (0-1.3); Eosinophils % 4.6 % (0-4.4); Hematocrit 33.1 % (36.0-45.0); Lymphocytes % 26.4 % (15.3-44.8); MPV 8.4 fL (7.6-11.3); Monocytes % 10.7 % (3.3-12.3); RBC Red Blood Cell Count 3.54 M/uL (3.86-4.86)
[2018-12-10 07:01] LABS: Albumin 2.2 g/dL (3.4-5.0); Phosphorus 1.9 mg/dL (2.5-4.9); Potassium 3.4 mmol/L (3.5-5.1)
[2018-12-10 07:28] LABS: Ferritin 154.7 ng/mL (8-388); Folic Acid, (Folate) 9.9 ng/mL (3.1-17.5)
[2018-12-10] MEDS: ENOXAPARIN 30 MG/0.3 ML SQ SCH (08:33)
[2018-12-10] MEDS: FUROSEMIDE 40 MG TABLET PO SCH (08:34)
[2018-12-10] MEDS: LACTULOSE 20 GM/30 ML UCUP PO SCH ×2 (08:34→21:17)
[2018-12-10] MEDS: GABAPENTIN 300 MG CAP PO SCH ×3 (08:35→21:16)
[2018-12-10] MEDS: IRON 28 MG PO SCH ×2 (08:35→21:00)
[2018-12-10] MEDS: RIFAXIMIN 200 MG PO SCH ×2 (08:36→21:00)
[2018-12-10] MEDS: HOME MED 1 EA UNK (Magnesium Oxide [Magnesium] 1 TAB) PO SCH ×2 (08:36→21:00)
[2018-12-10] MEDS ORDERED: MIDODRINE HCL 5 MG TABLET PO SCH (09:00)
[2018-12-10] MEDS: JUVEN PACKET PO SCH ×2 (09:00→21:00)
[2018-12-10] MEDS ORDERED: POTASSIUM PHOS 30 MM in NA CHLORIDE 0.9% 500 ML IV ONE (09:00)
--- NOTE | 2018-12-10 09:45 | EKG ---
Test Date: 2018-12-09 Test Time: 17:40:47 [employer]: MINGO MEASUREMENT RESULTS: Intervals: Rate: 158 [place]: QRSD: 74 QT: 238 QTc: 385 [place]: P: 268 NJ: QRS: 46 T: 255 INTERPRETIVE STATEMENTS: Atrial flutter with 2:1 AV conduction Nonspecific T wave abnormality Abnormal ECG Compared to ECG 07/11/2018 15:21:06 T-wave abnormality now present Sinus rhythm no longer present Electronically Signed On 12-10-18 09:42:58 CDT by Hi Meyer
--- NOTE | 2018-12-10 09:45 | EKG ---
Test Date: 2018-12-09 Test Time: 17:46:21 [employer]: MINGO MEASUREMENT RESULTS: Intervals: Rate: 105 CT: 158 QRSD: 78 QT: 336 QTc: 444 Felt: P: 45 CT: 158 QRS: 25 T: 44 INTERPRETIVE STATEMENTS: Sinus tachycardia Otherwise normal ECG Compared to ECG 12/09/2018 17:40:47 Atrial flutter no longer present T-wave abnormality no longer present Electronically Signed On 12-10-18 09:42:57 CDT by Hi Meyer
--- NOTE | 2018-12-10 12:03 | P.PN ---
Subjective Date of Service: 12/09/18 Patient developed tachycardia with hypotensive and and dizziness. Patient's heart rate went into the 150s up to 160s. Patient's systolic blood pressure in the 90s. Appreciate Nephrology input. May start on a low-dose midodrine. We will go ahead and hydrate and hold diuresing for 24 hr. Patient is at home only with her who has suffered a stroke. I will think patient is safe for discharge at this time. She has had a very high fall risk. She has end- stage cirrhosis. We removed almost 11 L and she has remained hypotensive and tachycardic with dizziness whenever she stands. Hopefully we can continue to stabilize her and when she gets ready to go home the dizziness will be cleared up. Will start with a low-dose midodrine to see if this will help. Review of Systems 10-point ROS is otherwise unremarkable Physical Examination - Vital Signs Temperature: 97.4 F Blood Pressure: 97/56 Pulse: 80 Respirations: 18 Pulse Ox (%): 96 - Physical Exam General: Alert, In no apparent distress, Oriented x3 Respiratory: Clear to auscultation bilaterally, Normal air movement Cardiovascular: No murmurs, Abnormal pulses Gastrointestinal: Soft and benign, Non-distended, No rebound, No guarding Musculoskeletal: No clubbing Neurological: Sensation intact, Cranial nerves 3-12 intact, Abnormal gait, Abnormal strength - Studies Medications List Reviewed: Yes Assessment & Plan - Problems (Diagnosis) (1) Poorly controlled ascites Current Visit: Yes Status: Acute (2) Hepatitis C Current Visit: Yes Status: Acute (3) Cirrhosis Onset Date: 07/12/18 Current Visit: No Status: Acute Qualifiers: (4) Lower extremity edema Onset Date: 07/12/18 Current Visit: No Status: Acute (5) Sinus tachycardia Current Visit: Yes Status: Acute (6) Hypotension Current Visit: Yes Status: Acute (7) Dizzy Current Visit: Yes Status: Acute (8) Generalized weakness Current Visit: Yes Status: Acute - Plan Plan: 1. paracentesis - REMOVED 10.5 L 2. HOLDING LASIX AND ALDACTONE 3. ALBUMIN IV GIVEN; Will also give IV fluids; will add mcg per Nephrology recommendation; because of clinical deterioration will change to inpatient services 4. outpatient follow-up with dermatology for lower extremity erythema which she states she has had for quite awhile 5. outpatient follow-up with hepatology 6. GI and DVT prophylaxis Discharge Plan: Home Plan to discharge in: Greater than 2 days - Advance Directives Does patient have a Living Will: No Does patient have a Durable POA for Healthcare: No - Code Status/Comfort Care Code Status: Full Code Critical Care: No Time Spent Managing PTS Care (In Minutes): 30
[2018-12-10] MEDS: MIDODRINE HCL 5 MG TABLET PO SCH ×2 (14:00→21:17)
--- NOTE | 2018-12-10 15:46 | PN ---
Date of Progress Note: 12/10/2018 Chief Complaint: Chronic kidney disease, cardiorenal syndrome, acute kidney injury secondary to prer enal azotemia. Subjective: Renal function has improved somewhat over the last 24 hours. The patient although was f ound to have hypokalemia. Potassium level is 3.4. The patient has history of chronic hepatorenal sy ndrome and developed acute on chronic kidney injury. Creatinine on admission was 1.26. Over the las t several days, creatinine improved to 0.96. The patient has nonoliguric urine output. The patient is admitted to the hospital for paracenteses and procedure was done. Lab work is pending to rule out SBP. The patient is on midodrine to prevent renal hypoperfusion and control hepatorenal syndrome al pili with spironolactone and Lasix to control ascites. She is on low-sodium diet to control volemia. Review of Systems: The patient is complaining of some dizziness, extremity edema. Denies PND or orthopnea. She has dys pnea on exertion. Objective: Lungs: Few crackles at bases. Heart: S1, S2. Abdomen: Soft, benign. Extremities: Edema present in both legs. Laboratory Data: Sodium 140, potassium 3.4, chloride 105, CO2 27, BUN 12, creatinine 0.96, glucose 1 01, estimated GFR is ranging from 41-55, phosphorus 1.9, calcium 7.6, magnesium 2.0. Hemoglobin 11.3 , WBC 4.3, platelet count is 110,000. Urinalysis showed 1+ protein, protein-creatinine ratio 0.11, n itrates negative, leukocyte esterase negative. Blood cultures were obtained and showed negative grow th. Impression And Plan: 1.Acute on chronic kidney injury, prerenal azotemia, chronic hepatorenal syndrome with recurrent chr onic ascites. The patient underwent paracentesis for tense ascites. 2.The patient has hypotension and is symptomatic with dizziness. Continue midodrine for blood press ure support and to prevent renal hypoperfusion and treat acute on chronic kidney injury with hepatore nal syndrome. The patient will maintain low-sodium diet to prevent recurrent ascites and to control anasarca. The patient has hypoalbuminemia due to chronic liver disease and liver cirrhosis. 3.Hypotension secondary to liver cirrhosis. Cortisone level was obtained and showed normal result. The patient was screened for hypothyroidism. TSH level is 4.25. 4.Hypoalbuminemia secondary to liver disease. The patient does not have nephrotic syndrome and scre en for proteinuria is insignificant. 5.Hypotension, orthostatic hypotension with history of chronic liver disease and chronic hepatorenal syndrome. Dose of midodrine was increased to 3 times per day. Plan is to titrate midodrine to 7.5 mg 3 times per day according to blood pressure. SANTO/GLYNN Voice ID: [id number] Report ID: [id number]
[2018-12-10] MEDS: SPIRONOLACTONE 25 MG TABLET PO SCH (17:25)
[2018-12-10] MEDS: DOCUSATE NA 100 MG CAP PO SCH (21:17)
[2018-12-11 05:48] LABS: Albumin 2.2 g/dL (3.4-5.0); Phosphorus 2.3 mg/dL (2.5-4.9); Potassium 4.1 mmol/L (3.5-5.1)
[2018-12-11] MEDS: GABAPENTIN 300 MG CAP PO SCH ×3 (08:37→21:15)
[2018-12-11] MEDS: LACTULOSE 20 GM/30 ML UCUP PO SCH ×2 (08:37→21:14)
[2018-12-11] MEDS: ENOXAPARIN 30 MG/0.3 ML SQ SCH (08:37)
[2018-12-11] MEDS: MIDODRINE HCL 5 MG TABLET PO SCH ×3 (08:38→21:15)
[2018-12-11] MEDS: JUVEN PACKET PO SCH ×2 (08:39→21:00)
[2018-12-11] MEDS: SPIRONOLACTONE 25 MG TABLET PO SCH ×2 (08:40→21:00)
[2018-12-11] MEDS: FUROSEMIDE 40 MG TABLET PO SCH (08:42)
[2018-12-11] MEDS: IRON 28 MG PO SCH ×2 (08:42→21:00)
[2018-12-11] MEDS: HOME MED 1 EA UNK (Magnesium Oxide [Magnesium] 1 TAB) PO SCH ×2 (08:43→21:00)
[2018-12-11] MEDS: RIFAXIMIN 200 MG PO SCH ×2 (08:43→21:00)
--- NOTE | 2018-12-11 09:46 | P.PN ---
Subjective Date of Service: 12/10/18 Today patient had a little better day with physical therapy. She only had to stop 5 times on walking to the nurse's station. She is pretty unsteady and the nurses have to keep a bedside commode. She is reluctant to go to a [facility] facility at this time. She only has her at home and I told her that he it may not be safe for her to only be home with him. He has had a stroke and he is very dependent on her. They have a daughter and a son and she states she will talk with them and they will be able to help her. They have always been helpful to her and she thinks that will work out. I will give her 1 more day in the hospital for therapy because of her generalized weakness and she is not wanting to go to a [facility] to get stronger. We will get her set up with home health with physical therapy. Hopefully she will be safe going home. She really did not want to listen to my advice about going to a [facility] facility because of her discomfort with being at a [facility] and away from her . I understand her desire to be at home but there is concern for fall and other issues unless she will be able to have her children help her regularly Review of Systems 10-point ROS is otherwise unremarkable Physical Examination - Vital Signs Temperature: 97.1 F Blood Pressure: 85/47 Pulse: 72 Respirations: 16 Pulse Ox (%): 98 - Physical Exam General: Alert, In no apparent distress, Oriented x3 Respiratory: Clear to auscultation bilaterally, Normal air movement Cardiovascular: Regular rate/rhythm, Normal S1 S2 Gastrointestinal: Normal bowel sounds, Soft and benign, Non-distended, No tenderness Musculoskeletal: No clubbing, No swelling, No tenderness Integumentary: No rashes Neurological: Normal speech, Normal tone, Normal affect Lymphatics: No axilla or inguinal lymphadenopathy - Studies Medications List Reviewed: Yes Assessment & Plan - Problems (Diagnosis) (1) Poorly controlled ascites Current Visit: Yes Status: Acute (2) Hepatitis C Current Visit: Yes Status: Acute (3) Cirrhosis Onset Date: 07/12/18 Current Visit: No Status: Acute Qualifiers: (4) Lower extremity edema Onset Date: 07/12/18 Current Visit: No Status: Acute (5) Sinus tachycardia Current Visit: Yes Status: Acute (6) Hypotension Current Visit: Yes Status: Acute (7) Dizzy Current Visit: Yes Status: Acute (8) Generalized weakness Current Visit: Yes Status: Acute - Plan Plan: 1. Patient is doing better with physical therapy; patient not want to go home at this time. Continue physical therapy intervention. Patient will need to get stronger before she is safe to go home. I anticipate her being in the hospital for 24 more hours. She will speak with her children prior to being discharged so they will be able to help with her care. She is started on all her oral medications that she will be going home with. If she continues to do well then I anticipate her being discharged in the next 24hrs Discharge Plan: Home Plan to discharge in: 24 Hours - Advance Directives Does patient have a Living Will: No Does patient have a Durable POA for Healthcare: No - Code Status/Comfort Care Code Status: Full Code Critical Care: No Time Spent Managing PTS Care (In Minutes): 30
[2018-12-11] MEDS: DOCUSATE NA 100 MG CAP PO SCH (21:14)
[2018-12-11 22:08] VITALS: O2SAT 94
--- NOTE | 2018-12-12 02:22 | PN ---
Date of Progress Note: 12/11/2018 Chief Complaint: Chronic kidney disease, cardiorenal syndrome, hepatorenal syndrome, acute kidney in jury secondary to prerenal azotemia. Renal function has improved somewhat over last 48 hours. The patient was found to have hypokalemia, received replacement. The patient has history of chronic hepatorenal syndrome and developed acute on chronic kidney injury. The patient has recurrent ascites, previous history of multiple paracenteses done to control ascites. The patient is complaining of some dizziness. She has a borderline hypoten kaleb. Midodrine was started for blood pressure support. The patient is on diuretics to control flui d overload and prevent recurrence of ascites. Review of Systems: Denies fever, chills. Physical Examination: Lungs: Clear to auscultation bilaterally. Heart: S1, S2. Abdomen: Has ascites present. Extremities: Edema in both legs. Laboratory Data: Hemoglobin 11.3, WBC 4.3, platelet count is 110,000. Sodium 138, potassium 4.1, ch loride 105, CO2 of 25, BUN 13, creatinine 1.03, phosphorus 2.3 and calcium 7.6. Impression And Plan: 1.Prerenal azotemia, chronic ascites and history of hepatorenal syndrome. Continue low-sodium diet, p.o. fluid restriction, diuretic as needed for volume control. 2.Monitor electrolytes. The patient is on potassium-sparing diuretic. Potassium level was below no rmal ranges. The patient received supplement. Monitor magnesium level. 3.Hypoalbuminemia secondary to chronic liver disease. The patient does not have nephrotic syndrome and screen for proteinuria is insignificant. 4.Hypotension, symptomatic with weakness. Midodrine was started. Advance dose if needed. EB/MODL Voice ID: [id number] Report ID: [id number]
[2018-12-12 06:36] LABS: Albumin 1.9 g/dL (3.4-5.0); Phosphorus 1.6 mg/dL (2.5-4.9); Potassium 4.2 mmol/L (3.5-5.1)
[2018-12-12] MEDS ORDERED: POTASS/SODIUM PHOSPHATE 1 PKT POWD.PACK PO ONE (08:00)
[2018-12-12] MEDS: HOME MED 1 EA UNK (Magnesium Oxide [Magnesium] 1 TAB) PO SCH (09:00)
[2018-12-12] MEDS ORDERED: ENOXAPARIN 40 MG/0.4 ML SQ SCH (09:00)
[2018-12-12] MEDS ORDERED: POTASS/SODIUM PHOSPHATE 1 PKT POWD.PACK PO SCH (09:00)
[2018-12-12] MEDS: RIFAXIMIN 200 MG PO SCH (09:00)
[2018-12-12] MEDS: JUVEN PACKET PO SCH (09:00)
[2018-12-12] MEDS: IRON 28 MG PO SCH (09:00)
[2018-12-12] MEDS: SPIRONOLACTONE 25 MG TABLET PO SCH (09:51)
[2018-12-12] MEDS: GABAPENTIN 300 MG CAP PO SCH (09:51)
[2018-12-12] MEDS: MIDODRINE HCL 5 MG TABLET PO SCH (09:51)
[2018-12-12] MEDS: FUROSEMIDE 40 MG TABLET PO SCH (09:52)
[2018-12-12] MEDS: LACTULOSE 20 GM/30 ML UCUP PO SCH (09:53)
[2018-12-12 13:38] VITALS: BP 93/54; TEMP 97
--- NOTE | 2018-12-13 04:21 | PN ---
Date of Progress Note: 12/12/2018 Chief Complaint: Chronic kidney disease, cardiorenal syndrome, hepatorenal syndrome, acute kidney in jury secondary to prerenal azotemia. Subjective: The patient has orthostatic hypotension, dizziness, and was started on midodrine for blo od pressure control. Renal function has improved over the last 48 hours. The patient has hypokalemia, received replacemen t. The patient has chronic hepatorenal syndrome and developed acute kidney injury. The patient unde rwent paracentesis with IV albumin drip. The patient is feeling better. Dizziness is improving. The patient denies PND, orthopnea. Physical Examination: Lungs: Clear to auscultation bilaterally. Heart: S1, S2. Abdomen: Soft, benign. Extremities: Slight edema. Laboratory Data: BUN 13, creatinine 1.03, phosphorus 2.3, calcium 7.6. Impression And Plan: 1.Prerenal azotemia, nonoliguric, ATN in setting of chronic kidney disease with history of hepatoren al syndrome and the patient has hypoalbuminemia. The patient will continue diuretic as needed to con trol volemia. 2.Monitor electrolytes closely. 3.Hypoalbuminemia secondary to chronic liver disease. The patient does not have a history of nephro tic syndrome. 4.Hypotension, symptomatic with weakness, although is improving with midodrine. SANTO/GLYNN Voice ID: [id number] Report ID: [id number]
--- NOTE | 2018-12-19 23:28 | P.PN ---
Subjective Date of Service: 12/11/18 Patient continues to improve. Spoke with patient and family and anticipate discharge home in the morning as the family is going to help out at the time of discharge. Review of Systems 10-point ROS is otherwise unremarkable Physical Examination - Vital Signs Temperature: 97 F Blood Pressure: 93/54 Pulse: 108 Respirations: 20 Pulse Ox (%): 98 - Physical Exam General: Alert, In no apparent distress, Oriented x3 Respiratory: Clear to auscultation bilaterally, Normal air movement Cardiovascular: Regular rate/rhythm, Normal S1 S2, Systolic murmur Gastrointestinal: Normal bowel sounds, Hypoactive, Soft and benign, Distended Musculoskeletal: No clubbing, No swelling Neurological: Sensation intact, Cranial nerves 3-12 intact, Abnormal gait, Abnormal strength - Studies Medications List Reviewed: Yes Assessment & Plan - Problems (Diagnosis) (1) Poorly controlled ascites Status: Acute (2) Hepatitis C Status: Acute (3) Cirrhosis Onset Date: 07/12/18 Status: Acute Qualifiers: (4) Lower extremity edema Onset Date: 07/12/18 Status: Acute (5) Sinus tachycardia Status: Acute (6) Hypotension Status: Acute (7) Dizzy Status: Acute (8) Generalized weakness Status: Acute - Plan Plan: 1. Patient continues to improve. Will get help with the family when she goes home. Patient with improved blood pressure and she is no longer getting lightheaded. Anticipate discharge home in the morning. Discharge Plan: Home Plan to discharge in: 24 Hours - Advance Directives Does patient have a Living Will: No Does patient have a Durable POA for Healthcare: No - Code Status/Comfort Care Code Status: Full Code Critical Care: No Time Spent Managing PTS Care (In Minutes): 30
--- NOTE | 2018-12-19 23:29 | P.DS ---
Discharge Date: 12/12/18 Disposition: DC HOME/HOME HEALTH CARE Discharge Condition: GOOD Reason for Admission: tense ascites - Problems (1) Poorly controlled ascites Status: Acute (2) Hepatitis C Status: Acute (3) Cirrhosis Onset Date: 07/12/18 Status: Acute Qualifiers: (4) Lower extremity edema Onset Date: 07/12/18 Status: Acute (5) Sinus tachycardia Status: Acute (6) Hypotension Status: Acute (7) Dizzy Status: Acute (8) Generalized weakness Status: Acute Brief History of Present Illness: Patient is an 88-year-old female who came to the hospital with tense ascites. She was a little short of breath. She had a paracentesis done a couple months ago and after that she felt much better. Patient has a history of hepatitis C. She was on treatment for the hepatitis-C when she said her liver failure became worse. She has been following up in [place] but because of her age she does not qualify for liver transplant. She is getting supportive care with paracentesis and medical management. Plan is to discharge her home after the parecentesis. Hospital Course: Patient patient was very weak throughout her hospital stay. We rehydrated her gently and gave her some albumin as she had 11 L of fluid removed. She has started doing better with physical therapy. We spoke with her about going to a alf facility but she did not want to go to a penitentiary. At this time she is stable for discharge. Her family is going to help with her care at home. Her is very dependent on her but she has 2 children who are going to be available to her at all times. Home health will also intervene with therapy and nursing care. Vital Signs/Physical Exam: Temp Pulse Resp BP Pulse Ox 97 F 108 H 20 93/54 L 98 12/19/18 23:27 12/19/18 23:27 12/19/18 23:27 12/19/18 23:27 12/19/18 23:27 General: Alert, In no apparent distress, Oriented x3 Laboratory Data at Discharge: WBC 4.3 K/uL (4.3-10.9) 12/10/18 05:53 Hgb 11.3 g/dL (12.0-15.0) L 12/10/18 05:53 Hct 33.1 % (36.0-45.0) L 12/10/18 05:53 Plt Count 110 K/uL (152-406) L 12/10/18 05:53 PT 15.7 SECONDS (9.5-12.5) H 12/07/18 18:10 INR 1.35 12/07/18 18:10 Sodium 137 mmol/L (136-145) 12/12/18 05:43 Potassium 4.2 mmol/L (3.5-5.1) 12/12/18 05:43 BUN 23 mg/dL (7-18) H 12/12/18 05:43 Creatinine 0.96 mg/dL (0.55-1.3) 12/12/18 05:43 Glucose 90 mg/dL (74-106) 12/12/18 05:43 Phosphorus 1.6 mg/dL (2.5-4.9) L 12/12/18 05:43 Magnesium 2.0 mg/dL (1.8-2.4) 12/10/18 05:49 Total Bilirubin 1.5 mg/dL (0.2-1.0) H 12/08/18 05:15 AST 28 U/L (15-37) 12/08/18 05:15 ALT 13 U/L (12-78) 12/08/18 05:15 Alkaline Phosphatase 70 U/L (45-117) 12/08/18 05:15 Lipase 224 U/L (73-393) 12/07/18 17:38 Home Medications: Furosemide [Lasix*] 1 tab PO DAILY 07/11/18 Gabapentin 1 cap PO TID 07/11/18 Magnesium Oxide [Magnesium] 1 tab PO BID 07/11/18 Potassium Chloride [Klor-Con M10] 1 tab PO BID 07/11/18 Rifaximin [Xifaxan*] 200 mg PO BID 07/11/18 Docusate Sodium 100 mg PO BEDTIME 12/07/18 Alok [Alok*] 1 pkt PO BID #60 powd.pack 12/12/18 Lactulose [Cephulac*] 30 ml PO BID #1500 ml 12/12/18 Midodrine HCl [Proamatine*] 5 mg PO BID #60 tab 12/12/18 Omeprazole [Prilosec] 40 mg PO 30 MIN BEFORE HS #30 capsule. 04/15/19 metOLazone [Metolazone] 1 tab PO SEECOM 12/19/18 New Medications: Alok [Alok*] 1 pkt PO BID #60 powd.pack Lactulose [Cephulac*] 30 ml PO BID #1500 ml Midodrine HCl [Proamatine*] 5 mg PO BID #60 tab Omeprazole [Prilosec] 40 mg PO 30 MIN BEFORE HS #30 capsule. Patient Discharge Instructions: OK TO DC IV AND DC HOME around noon(after breakfast). FOLLOW-UP WITH PRIMARY CARE PROVIDER IN 1-2 WEEKS. FOLLOW-UP WITH HEPATOLOLOGY IN 1-2 WEEKS. RETURN TO THE ER IF SYMPTOMS WORSENS. CALL DR. JOE AT [phone] IF ANY QUESTIONS REGARDING HOSPITAL STAY. PLEASE CALL THE FLOOR AT [phone] IF ANY MEDICATION OR NURSING QUESTIONS. Diet: Low sodium Activity: Fall precautions Time spent managing pt's care (in minutes): 25
== END 2018-12-12 13:15 | disposition home health service (06) | DRG 947 ==
LOC: ER 16:37 → ERHOLD 20:07 → INTOOBSV 20:07 → OBSVTOIN 20:07 → 2ND 21:17 → OBSVTOIN 12-09 17:51
PROVIDERS: ADMIT Hospitalist; ATTEND Hospitalist
PROC: 0W9G3ZX Drainage of Peritoneal Cavity, Percutaneous Approach, Diagnostic (ICD-10-PCS; principal; 2018-12-08)
DX: R18.8 Other ascites (principal); N17.0 Acute kidney failure with tubular necrosis; B17.10 Acute hepatitis C without hepatic coma; R60.1 Generalized edema; E87.6 Hypokalemia; E83.42 Hypomagnesemia; I12.9 Hypertensive chronic kidney disease with stage 1 through stage 4 chronic kidney disease, or unspecified chronic kidney disease; N18.3 Chronic kidney disease, stage 3 (moderate); I95.9 Hypotension, unspecified; K74.60 Unspecified cirrhosis of liver; D64.9 Anemia, unspecified; R00.0 Tachycardia, unspecified; R79.89 Other specified abnormal findings of blood chemistry; E88.09 Other disorders of plasma-protein metabolism, not elsewhere classified
CPT/HCPCS: 36415; 49083; 71045; 76770; 80048; 80053; 80069; 80076; 81003; 82040; 82533; 82570; 82607; 82728; 82746; 83540; 83690; 83735; 83880; 84100; 84156; 84439; 84443; 84466; 85025; 85610; 87040; 90670; 93005; 93306; 94640; 97116; 97163; 97530; 99285; G0009; G0378; J1650; J1940; J2405; P9047

== ENCOUNTER 2018-12-19 12:42 | Inpatient (IN) | payer OTHER ==
--- OUTSIDE RECORDS SUMMARY | 2018-12-19 12:45 | XMS REPORT | Clinical Summary ---
:1930 Author Organization [facility] Address [address] [place] [address] Care Team Providers Name Role Phone Kandy Castillo PA-C Physician Transfer Knitter Ankush Levine Referring Physician Fareed Ballesteros Primary [...] vit C-vit Take by mouth 0 Discontinued W-xkqxrl-vyh-om-3 daily . 8 (OCUVITE) [id number] kh-rhgm-hc-mg Cap magnesium oxide-Mg Take by mouth. 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); [facility], [facility] Screening for cancer; Hepatology Clinic E [...] Telephone Hepatology Kandy Castillo, Follow-up PA-C after 12/18/2017 Family History Medical History Relation Name Comments [...] Taken Blood Pressure 94/60 08/10/2018 2:08 PM MOLDER MACHINE Pulse 92 08/10/2018 2:08 PM MOLDER MACHINE Temperature 36.3 C (97.4 F) 08/10/2018 2:08 PM MOLDER MACHINE Respiratory Rate 16 08/10/2018 2:08 PM MOLDER MACHINE Oxygen Saturation 98% 08/10/2018 2:08 PM MOLDER MACHINE Inhaled Oxygen Concentration - - Weight 58.2 kg (128 lb 6.4 oz) 08/10/2018 2:08 PM MOLDER MACHINE Height 165.1 cm (5' 5") 08/10/2018 2:08 PM MOLDER MACHINE Body Mass Index 21.37 08/10/2018 2:08 PM MOLDER MACHINE Plan of Treatment Date Type Specialty Care Team Description 02/08/2019 Office Visit Hepatology Resource, [facility] Hepatology Clinic E Procedures Procedure Name Priority Date/Time Associated Diagnosis Comments CBC W/PLT COUNT & Routine 08/10/2018 3:45 Hepatic cirrhosis Results for this AUTO DIFFERENTIAL PM MOLDER MACHINE due to chronic procedure are in hepatitis C the results infection (HCC) section. Screening for cancer Encephalopathy AMMONIA Routine 08/10/2018 3:45 Hepatic cirrhosis Results for this PM MOLDER MACHINE due to chronic procedure are in hepatitis C the results infection (HCC) section. Screening for cancer Encephalopathy ALPHA FETOPROTEIN Routine 08/10/2018 3:45 Hepatic cirrhosis Results for this (AFP), TUMOR MARKER PM MOLDER MACHINE due to chronic procedure are in hepatitis C the results infection (HCC) section. Screening for cancer Encephalopathy PROTHROMBIN TIME/INR Routine 08/10/2018 3:45 Hepatic cirrhosis Results for this PM MOLDER MACHINE due to chronic procedure are in hepatitis C the results infection (HCC) section. Screening for cancer Encephalopathy CBC W/PLT COUNT & Routine 08/10/2018 3:45 Hepatic cirrhosis Results for this AUTO DIFFERENTIAL PM MOLDER MACHINE due to chronic procedure are in hepatitis C the results infection (HCC) section. Screening for cancer Encephalopathy HEPATIC FUNCTION Routine 08/10/2018 3:45 Hepatic cirrhosis Results for this PANEL PM MOLDER MACHINE due to chronic procedure are in hepatitis C the results infection (HCC) section. Screening for cancer Encephalopathy BASIC METABOLIC PANEL Routine 08/10/2018 3:45 Hepatic cirrhosis Results for this (7) PM MOLDER MACHINE due to chronic procedure are in hepatitis [...] unspecified chronicity Nausea Hypokalemia Zinc deficiency after 12/18/2017 Results CBC with platelet count + automated diff (08/10/2018 3:45 PM MOLDER MACHINE)Only the most recent of2 resultswithin the time period is included. WBC 5.0 3.5 - 10.5 K/L [facility] RBC 3.39 (L) 3.93 - 5.22 M/L [facility] Hemoglobin 10.7 (L) 11.2 - 15.7 GM/DL [facility] Hematocrit 33.1 (L) 34.1 - 44.9 % [facility] MCV 97.6 (H) 79.4 - 94.8 fL [facility] MCH 31.6 25.6 - 32.2 pg [facility] MCHC 32.3 32.2 - 35.5 GM/DL [facility] RDW 15.0 (H) 11.7 - 14.4 % [facility] Platelets 98 (L) 150 - 450 K/CU MM [facility] MPV 10.0 9.4 - 12.3 fL [facility] nRBC 0 0 - 0 /100 WBC [facility] % Neutros 71 % [facility] % Lymphs 14 % [facility] % Monos 12 % [facility] % Eos 2 % [facility] % Baso 1 % [facility] # Neutros 3.51 1.56 - 6.13 K/L [facility] # Lymphs 0.69 (L) 1.18 - 3.74 K/L [facility] # Monos 0.62 (H) 0.24 - 0.36 K/L [facility] # Eos 0.10 0.04 - 0.36 K/L [facility] # Baso 0.04 0.01 - 0.08 K/L [facility] Immature Granulocytes-Relative 0 0 - 1 % [facility] Specimen Blood Performing Organization Address City/[facility]/Zipcode Phone Number [address] [address] [place] Alpha fetoprotein (AFP), tumor marker (08/10/2018 3:45 PM MOLDER MACHINE)Only the most recent of2 resultswithin the time period is included. Alpha-Fetoprotein 2.9 <10.0 ng/mL [facility] Specimen Blood Performing Organization Address [facility] Phone Number [address] [address] [phone] CENTER Pro-time/INR (08/10/2018 3:45 PM MOLDER MACHINE)Only the most recent of2 resultswithin the time period is included. Protime 16.5 (H) 11.7 - 14.7 seconds [facility] INR 1.3 <=5.9 [facility] Specimen Blood Narrative Performed At RECOMMENDED COUMADIN/WARFARIN INR THERAPY [facility] RANGES STANDARD DOSE: 2.0 - 3.0 Includes: PROPHYLAXIS for venous thrombosis, systemic embolization; TREATMENT for venous thrombosis and/or pulmonary embolus. HIGH RISK: Target INR is 2.5-3.5 for patients with mechanical heart valves. Performing Organization Address City/[facility] Phone Number [address] [address] [phone] CENTER Ammonia (08/10/2018 3:45 PM MOLDER MACHINE) Ammonia 40 18 - 72 mol/L [facility] Specimen Blood Performing Organization Address City/[facility] Phone Number [address] [phone] [place] Hepatic function panel (08/10/2018 3:45 PM MOLDER MACHINE)Only the most recent of2 resultswithin the time period is included. Protein, Total 9.0 (H) 6.0 - 8.3 gm/dL [facility] Albumin 2.8 (L) 3.5 - 5.0 g/dL [facility] Total Bilirubin 1.2 0.2 - 1.2 mg/dL [facility] Bilirubin, Direct 0.7 (H) 0.1 - 0.5 mg/dL [facility] Alkaline Phosphatase 111 40 - 150 U/L [facility] AST 31 5 - 34 U/L [facility] ALT 12 6 - 55 U/L [facility] Specimen Blood Performing Organization Address City/[facility] Phone Number [address] [address] [place] Basic Metabolic Panel (08/10/2018 3:45 PM MOLDER MACHINE)Only the most recent of2 resultswithin the time period is included. Sodium 133 (L) 136 - 145 meq/L [facility] Potassium 4.0 3.5 - 5.1 meq/L [facility] Chloride 100 98 - 107 meq/L [facility] CO2 27 22 - 29 meq/L [facility] BUN 20 7 - 21 mg/dL [facility] Creatinine 1.07 0.57 - 1.25 mg/dL [facility] Glucose 71 70 - 105 mg/dL [facility] Calcium 9.4 8.4 - 10.2 mg/dL [facility] EGFR 49Comment: ESTIMATED GFR IS mL/min/1.73 sq m [facility] NOT ACCURATE [facility] CLEARANCE IN PREDICTING GLOMERULAR FILTRATION RATE. ESTIMATED GFR IS NOT APPLICABLE FOR DIALYSIS PATIENTS. Specimen Blood Performing Organization Address City/State/Zipcode Phone Number [facility] [address] [place] [address] [phone] CENTER Magnesium (01/06/2018 3:21 PM CDT) Magnesium 1.8 1.6 - 2.6 mg/dL [facility] Specimen Blood Performing Organization Address City/State/Zipcode Phone Number [place] [phone] [place], [place] [phone] CENTER after 12/18/2017 Insurance Payer Benefit Plan / Group Subscriber ID Type Phone Address MEDICARE MEDICARE A B xxxxxxxxxxx Medicare [facility] GENERIC MEDICARE xxxxxxxxx [employer] SUPPLEMENT/INDIVIDUAL SUPPLEMENT
--- OUTSIDE RECORDS SUMMARY | 2018-12-19 12:52 | XMS REPORT | Continuity of Care Document ---
[...] DX:153.9=ADENOCARC 014 [place] INOMA V10.05 Active 014 [facility] Umbilical Active Problem 04/24/2017 Data migrated hernia<sup>2</sup> 014 from [facility] Centricity on 01/28/15. Umbilical Active Problem 01/17/2018 Data migrated Medical hernia<sup>5</sup> 014 from [facility] on [facility] 01/28/15. UMB HERNIA WITHOUT Active Condition 04/27/2014 Medical MENTION 014 Group OBSTRUCTION/GANGRE NE LARGE INTESTINE Active Condition 04/27/2014 Medical CANCER 012 Group SCREENING FOR Active Condition 04/27/2014 [facility] COLON CANCER 012 Group Carcinoma of Active Problem 01/17/2018 Data migrated ascending 011 from [facility] colon<sup>1</sup> Centricity on [facility] 01/28/15. Group CARCINOMA, Active Condition 04/27/2014 [facility] ASCENDING COLON 011 Group Cancer of colon Active Problem 01/17/2018 011 [facility] CH - Chronic Active Problem 04/24/2017 hepatitis [facility] DVT (<span Resolved Problem 04/24/2017 ID="[id number]">C [facility] onfirmed</span>) Bronchitis Resolved Problem 01/17/2018 [facility] CAD - Coronary Active Problem 01/17/2018 artery disease [facility] CH - Chronic Active Problem 01/17/2018 blood Medical hepatitis<sup>2</s transfusion Group, up> 1965 [facility] Chemotherapy Resolved Problem 01/17/2018 [facility] 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 [facility] Cirrhosis of liver Active Problem 01/17/2018 [facility] Colon cancer Resolved Problem 01/17/2018 [facility] DVT (<span Resolved Problem 01/17/2018 1966 Medical ID="[id number]">C Group, onfirmed</span>)<s [place] up>3, 4</sup> SOB on Active Problem 01/17/2018 Medical exertion(<span Group, ID="[id number]"> [place] Confirmed</span>) Esophageal varices Active Problem 01/17/2018 [facility] Hepatitis C Active Problem 01/17/2018 [facility] Hernia repair Resolved Problem 01/17/2018 [facility] History of colon Active Problem 01/17/2018 cancer [facility] Incisional hernia Active Problem 01/17/2018 [facility] Kidney stones Active Problem 01/17/2018 [facility] Neuropathy Active Problem 01/17/2018 [facility] Pneumonia Active Problem 01/17/2018 [facility] Recurrent UTI Active Problem 01/17/2018 Medical Group Unspecified Active Diagnosis 08/26/2015 2..1. infectious disease [id number] 1. Bacterial Active Diagnosis 08/26/2015 2.0.1. infection [id number] 1. Other Active Diagnosis 08/26/2015 2.0.1. encephalopathy [id number] 1. Esophageal varices Active Diagnosis 08/26/2015 2.16840.1. [id number] 1. Hepatic cirrhosis Active Diagnosis 08/26/2015 2.16840.1. [id number] 1. UTI Active Problem 08/26/2015 2.16.840.1. [id number] MALIGNANT MIGEL Active MH COLON NOS [facility] 153.9 Active MH [facility] HEPATOPULMONARY Active MH SYNDROME [facility] HX OF COLONIC Active MH MALIGNANCY [facility] URIN TRACT Active MH INFECTION NOS [facility] INCISIONAL HERNIA Active MH [facility] MALIGNANT NEOPLASM Active MH OF COLON, [facility] UNSPECIFIED PERSONAL HISTORY Active MH OF MALIGNANT [facility] NEOPLASM O CALCULUS OF KIDNEY Active MH [facility] Medications Medication Details Route Status Patient Ordering Order Source Instructions Provider Date Acetaminophen 2 tab, PO, Active 300 MG / Q6H, PRN 2016 [facility] Codeine Pain, X 7 Phosphate 30 MG day, # 56 Oral Tablet tab, 0 [Tylenol with Refill(s) Codeine #3] esmolol (ANES) Route: IV, Inactive Drug form: 2016 [facility] INJ, ONCE, Stop date: 08/03/17 13:22:00 FRAME TABLE OPERATOR ondansetron Route: IV, Inactive (ANES) Drug form: 2016 [facility] INJ, ONCE, Stop date: 08/03/17 13:07:00 FRAME TABLE OPERATOR propofol (ANES) Route: IV, Inactive Drug form: 2016 [facility] INJ, ONCE, Stop date: 08/03/17 13:07:00 FRAME TABLE OPERATOR lidocaine Route: IV, Inactive (ANES) Drug form: 2016 [facility] INJ, ONCE, Stop date: 08/03/17 13:07:00 FRAME TABLE OPERATOR ciprofloxacin Route: IV, Inactive (ANES) Drug form: 2016 [facility] INJ, ONCE, Stop date: 08/03/17 13:07:00 FRAME TABLE OPERATOR dexamethasone Route: IV, Inactive (ANES) Drug form: 2016 [facility] INJ, ONCE, Stop date: 08/03/17 13:07:00 FRAME TABLE OPERATOR fentaNYL (ANES) Route: IV, Inactive Drug form: 2016 [facility] INJ, ONCE, Stop date: 08/03/17 13:02:00 FRAME TABLE OPERATOR Calcium 1,000 mL, Inactive Chloride 0.0014 Rate: 25 2016 MEQ/ML / ml/hr, Infuse Potassium over: 40 hr, Chloride 0.004 Route: IV, MEQ/ML / Sodium Dosing Weight Chloride 0.103 74.091 kg, MEQ/ML / Sodium Total Volume: Lactate 0.028 1,000, Start MEQ/ML date: Injectable 08/03/17 Solution 12:12:00 FRAME TABLE OPERATOR, Duration: 30 day, Stop date: 09/02/17 12:11:00 FRAME TABLE OPERATOR, 1.86, m2 vancomycin Route: IV, Inactive (ANES) 1000 mg Drug form: 2016 [facility] INJ, Start date: 08/03/17 12:10:00 FRAME TABLE OPERATOR, Stop date: 08/03/17 13:10:00 FRAME TABLE OPERATOR Lactated Route: IV, Inactive Ringers Total Volume: 2016 [facility] Injection IV 1,000, Start (ANES) 1000 mL date: 08/03/17 12:10:00 FRAME TABLE OPERATOR, Stop date: 08/03/17 13:10:00 FRAME TABLE OPERATOR Ceftriaxone 1 gm, Route: No Longer IVPB, Q12H, Active 2016 [facility] Dosing Weight 74.091, kg, Start date: 08/02/17 21:00:00 FRAME TABLE OPERATOR, Duration: 24 hr, Stop date: 08/03/17 9:00:00 FRAME TABLE OPERATOR, ABX Indication: Urinary Tract Infection phenylephrine Route: IV, Inactive (ANES) Drug form: 2016 [facility] INJ, ONCE, Stop date: 04/21/17 10:51:00 CDT ondansetron Route: IV, Inactive (ANES) Drug form: 2016 [facility] INJ, ONCE, Stop date: 04/21/17 10:41:00 CDT dexamethasone Route: IV, Inactive (ANES) Drug form: 2016 [facility] INJ, ONCE, Stop date: 04/21/17 10:41:00 CDT ceFAZolin Route: IV, Inactive (ANES) Drug form: 2016 [facility] INJ, ONCE, Stop date: 04/21/17 10:41:00 CDT lidocaine Route: IV, Inactive (ANES) Drug form: 2016 [facility] INJ, ONCE, Stop date: 04/21/17 10:41:00 CDT propofol (ANES) Route: IV, Inactive Drug form: 2016 [facility] INJ, ONCE, Stop date: 04/21/17 10:41:00 CDT fentaNYL (ANES) Route: IV, Inactive Drug form: 2016 [facility] INJ, ONCE, Stop date: 04/21/17 10:41:00 CDT acetaminophen Route: IV, Inactive (ANES) (ANES) Drug form: 2016 [facility] INJ, Start date: 04/21/17 10:35:00 CDT, Stop date: 04/21/17 11:35:00 CDT sodium chloride Route: IV, Inactive 0.9% 500 ml INJ Total Volume: 2016 [facility] (ANES) 500, Start date: 04/21/17 10:08:00 CDT, Stop date: 04/21/17 11:08:00 CDT Calcium 1,000 mL, Inactive Chloride 0.0014 Rate: 25 2016 [facility] MEQ/ML / ml/hr, Infuse Potassium over: 40 hr, Chloride 0.004 Route: IV, MEQ/ML / Sodium Dosing Weight Chloride 0.103 74.545 kg, MEQ/ML / Sodium Total Volume: Lactate 0.028 1,000, Start MEQ/ML date: Injectable 04/21/17 Solution 9:53:00 CDT, Duration: 30 day, Stop date: 05/21/17 9:52:00 CDT Ocuvite 1 tab, PO, Active Daily, 0 2016 [facility] Refill(s) Furosemide 40 40 mg=1 tab, Active MG Oral Tablet PO, Daily, 0 2016 [facility] Refill(s) Vitamin D3 2000 2,000 Active intl units oral IntlUnit=1 2016 [facility] tablet tab, PO, Daily, 0 Refill(s) Albuterol 0.833 3 mL, Route: Inactive MG/ML / NEB, Drug 2016 [facility] Ipratropium Form: SOLN, Anderson 0.167 Dosing Weight MG/ML Inhalant 76.364, kg, Solution ONCE, STAT, Start date: 02/23/17 9:22:00 CDT, Stop date: 02/23/17 9:22:00 CDTNotes: (Same as: Nolbertob) Sodium Chloride 500 mL, Rate: Inactive 0.154 MEQ/ML 25 ml/hr, 2016 [facility] Injectable Infuse over: Solution 20 hr, Route: IV, Dosing Weight 76.364 kg, Total Volume: 500, Start date: 02/23/17 9:22:00 CDT, Duration: 1 day, Stop date: 02/24/17 9:21:00 CDT Lasix 20 mg, 1 tab, No Longer Route: PO, Active 2014 [facility] Drug form: TAB, Daily, Dosing Weight 73.295, kg, Start date: 08/08/15 9:00:00, Duration: 30 day, Stop date: 09/06/15 9:00:00Notes: (Same as: Lasix) May cause GI upset. Give with food or milk. Spironolactone 12.5 mg, 0.5 No Longer tab, Route: Active 2014 [facility] PO, Drug form: TAB, Daily, Dosing Weight [...] 20 mL, Route: Inactive IVP, Start 2014 [facility] date: 08/07/15 12:19:00, Duration: 30 day, Stop date: 09/06/15 12:18:00, PRN Line FlushNotes: preservative free. sodium chloride 10 mL, Route: Inactive IVP, Start 2014 [facility] date: 08/07/15 12:18:00, Duration: 30 day, Stop date: 09/06/15 12:17:00, PRN Line FlushNotes: preservative free. ciprofloxacin 500 mg=1 tab, Active 500 mg oral PO, Q12H, X 2014 [facility] tablet 10 day, # 20 tab, 0 Refill(s) Cephalexin 500 500 mg=1 cap, Inactive MG Oral Capsule PO, TID, X 10 2014 [Keflex] day, # 30 cap, 0 Refill(s) Docusate Sodium 100 mg, 1 Inactive 100 MG Oral cap, Route: 2014 [facility] Capsule PO, Drug [Colace] form: CAP, Daily, Dosing Weight 73.295, kg, PRN Constipation, Start date: 08/07/15 11:09:00, Duration: 30 day, Stop date: 09/06/15 11:08:00Notes : (Same as: Colace) (Do Not Crush) Ibuprofen 400 mg, 1 Inactive tab, Route: 2014 [facility] PO, Drug form: TAB, ONCE, Dosing Weight 73.295, kg, PRN Headache 1-5, Start date: 08/06/15 21:10:00, Stop date: 08/06/15 21:10:00Notes : (Same as: Motrin) "Do Not Crush" Give with food. Lasix PO, Daily, 0 Active Refill(s) 2014 [facility] Rocephin 1 gm, Route: No Longer IVPB, Active 2014 [facility] [id number], Dosing Weight 73.295, kg, Start date: 08/06/15 9:00:00, Duration: 30 day, Stop date: 09/04/15 9:00:00Notes: (Same As: Rocephin). Use with 100 mL NS and infuse over 30 min MEDICATION WASTE Product Size: 1000 mg Product Wasted: ___ mg Lactulose 10 gm, 15 ml, Inactive Route: PO, 2014 [facility] Drug Form: SYRP, Dosing Weight 73.295, kg, ONCE, Start date: 08/06/15 3:49:00, Stop date: 08/06/15 3:49:00Notes: (Same as:Chronulac) Ondansetron 4 mg, 2 mL, No Longer Route: IVP, Active 2014 [facility] Drug form: INJ, Q6H, Dosing Weight 73.636, kg, PRN Nausea & Vomiting, Start date: 08/06/15 3:29:00, Duration: 30 day, Stop date: 09/05/15 3:28:00Notes: (Same as: Clint) MEDICATION WASTE Product Size: 4 mg Product Wasted: ___ mg Acetaminophen 325 mg, 1 No Longer tab, Route: Active 2014 [facility] PO, Drug form: TAB, Q4H, Dosing Weight 73.636, kg, PRN Pain Score 4-6, Start date: 08/06/15 3:29:00, Duration: 30 day, Stop date: 09/05/15 3:28:00Notes: Do not exceed 4 gm/day. (Same as: Tylenol) Morphine 2 mg, Route: No Longer IVP, Q4H, Active 2014 [facility] Dosing Weight 73.636, kg, PRN Pain Score 7-10, Start date: 08/06/15 3:29:00, Duration: 30 day, Stop date: 09/05/15 3:28:00 Aspirin 325 mg, 1 No Longer tab, Route: Active 2014 [facility] PO, Drug form: ECTAB, Q24H, Dosing Weight 73.636, kg, Start date: 08/06/15 3:00:00, Duration: 30 day, Stop date: 09/04/15 3:00:00Notes: (Do Not Crush) Do not crush or chew. Saline Flush 10 mL, Route: No Longer 0.9% IVP, Drug Active 2014 [facility] Form: INJ, Dosing Weight 75.455, kg, PRN, PRN Line Flush, Start date: 08/05/15 19:05:00, Duration: 30 day, Stop date: 09/04/15 19:04:00Notes : (Same as: BD Posiflush) Docusate Sodium 100 mg=1 cap, Active 100 MG Oral PO, Daily, as 2013 [facility] Capsule needed for [Colace] constipation, # 20 cap, 0 Refill(s) gabapentin 300 300 mg=1 cap, Active MG Oral Capsule PO, BID, # 90 2013 [facility] cap, 0 Refill(s) tramadol 50 mg=1 tab, Active hydrochloride PO, Q6H, 2013 [facility] 50 MG Oral Pain, # 40 Tablet tab, 0 Refill(s) Ibuprofen 400 400 mg, 1 No Longer MG Oral Tablet tab, Route: Active 2013 [facility] PO, Drug form: TAB, Q6H, Dosing Weight [...] 0.5 No Longer mL, Route: Active 2013 [facility] IV, Drug form: INJ, Q2H, PRN Pain, Start date: 04/18/14 17:55:00, Duration: 30 day, Stop date: 05/18/14 17:54:00 Ibuprofen 600 mg, Inactive Route: PO, 2013 Q6H, Dosing Weight 64.545, kg, PRN as needed for pain, Start date: 04/18/14 17:02:00, Duration: 30 day, Stop date: 05/18/14 17:01:00 Docusate Sodium 100 mg, 1 No Longer 100 MG Oral cap, Route: Active 2013 [facility] Capsule PO, Drug form: CAP, BID, Dosing Weight 64.545, kg, Start date: 04/18/14 17:00:00, Duration: 30 day, Stop date: 05/18/14 9:00:00Notes: (Same as: Colace) (Do Not Crush) Ofirmev 1,000 mg, 100 Inactive mL, Route: 2013 [facility] IV, Drug form: INJ, Q6H, Dosing Weight 65.909, kg, for > or=50 kg, Start date: 04/18/14 12:00:00, Duration: 1 day, Stop date: 04/19/14 6:00:00Notes: Infuse over 15 minutes Do not exceed 4gm/day of acetaminophen Saline Flush 5 ml, Route: No Longer 0.9% IVP, Drug Active 2013 [facility] Form: INJ, Dosing Weight 64.545, kg, PRN, PRN Line Flush, Start date: 04/18/14 10:16:00, Duration: 30 day, Stop date: 05/18/14 10:15:00Notes : Same as: BD Posiflush Sterile Sodium Chloride 1,000 mL, No Longer 0.154 MEQ/ML Rate: 125 Active 2013 [facility] Injectable ml/hr, Infuse Solution over: 8 hr, Route: IV, Dosing Weight 64.545 kg, Total Volume: 1,000, Start date: 04/18/14 10:16:00, Duration: 30 day, Stop date: 05/18/14 10:15:00 Ondansetron 4 mg, 2 mL, No Longer Route: IVP, Active 2013 [facility] Drug form: INJ, Q6H, Dosing Weight 64.545, kg, PRN Nausea & Vomiting, Start date: 04/18/14 10:16:00, Duration: 30 day, Stop date: 05/18/14 10:15:00Notes : (Same as: Zofran) Acetaminophen 1 tab, Route: Inactive 325 MG / PO, Drug 2013 [facility] Hydrocodone Form: TAB, Bitartrate 5 MG Dosing Weight Oral Tablet 65.909, kg, Q4H, PRN Pain Score 1-3, Start date: 04/18/14 10:16:00, Duration: 30 day, Stop date: 05/18/14 10:15:00Notes : (Same as: [place] 325/5) Do not exceed 4gm/day of acetaminophen . Cefoxitin 2 gm, Route: No Longer IVPB, ONCALL, Active 2013 [facility] Dosing Weight 64.545, kg, Start date: 04/13/14 13:00:00, Duration: 30 day, Stop date: 05/13/14 12:59:00Notes : (Same As: Mefoxin) Naloxone 0.1 mg, Inactive Route: IVP, 2013 [facility] Q2MIN, Dosing Weight 65.909, kg, PRN Narcotic Reversal, Start date: 03/13/14 11:16:00, Duration: 4 doses or times, Stop date: Limited # of times Flumazenil 0.2 mg, Inactive Route: IVP, 2013 [facility] PRN, Dosing Weight 65.909, kg, PRN Other -See Comment, Start date: 03/13/14 11:16:00, Duration: 1 doses or times, Stop date: Limited # of times Sodium Chloride 1,000 mL, Inactive 0.154 MEQ/ML Rate: 25 2013 [facility] Injectable ml/hr, Infuse Solution over: 40 hr, [...] 1 tablet Orally Active 20 mg Orally [facility] 2.16.840.1 daily .661458.4. [id number] 68 Gabapentin 1 capsule Orally Active 300 MG Orally Jus 2.16.840.1 twice a day .422708.4. (bid) 68 B-12 Unknown Sublingual Active 2500 MCG Jus 2.16.840.1 Sublingual .149633.4. 68 Ocuvite 1 tablet Orally Active Orally daily Jus 2.16.840.1 .403928.4. 68 Lasix 1 tablet Orally Active 40 MG Orally Jus 2.16.840.1 Once a day .091292.4. 68 Ciprofloxacin 5 ml Orally Active 500 MG/5ML Jus 2.840.1 (10%) Orally .144451.4. Twice a day 68 Spironolactone 1 tablet Orally Active 25 MG Orally Jus 2.16.840.1 daily .706746.4. 68 Caltrate 600+D 1 tablet with Orally Active 600-400 Jus 2.840.1 food MG-UNIT .451986.4. Orally Once a day Allergies, Adverse Reactions, Alerts Substance Category Reaction Severity Reaction Status Date Comments Source type Reported MORPHINE Drug MORPHINE allergy 2 Medical Group morphine<s Assertion Drug Active Data up>1</sup> allergy 2 migrated [place] [facility] on 12/27/14. Originally documented as MORPHINE. Hallucinatio ns Adhesive Adverse rash Adverse Active 2.16.840. Tape Reaction Reaction 5 1.799123. 4.391 Morphine Adverse Info Not Adverse Active 2.16.840. Sulfate Reaction Available Reaction 5 1.432108. 4.391 morphine Assertion Drug Active allergy [place] [...] Lymphocytes 36.1 % 20.0 - 08/03 40.0 [facility] HEMATOLOGY Eosinophils 1.2 % 0.0 - 4.0 08/03 [facility] HEMATOLOGY Monocytes 5.4 % 2.0 - 12.0 08/03 [facility] HEMATOLOGY Basophils 0.6 % 0.0 - 1.0 08/03 [facility] HEMATOLOGY Segs 56.7 % 45.0 - 08/03 75.0 /2016 [facility] HEMATOLOGY Monocytes # 0.2 K/CMM 0.0 - 0.8 08/03 [facility] HEMATOLOGY Lymphocytes 1.0 K/CMM 1.0 - 5.5 08/03 [facility] HEMATOLOGY Segs-Bands # 1.6 K/CMM 1.5 - 8.1 08/03 [facility] HEMATOLOGY MPV 9.2 fL 7.4 - 10.4 08/03 [facility] HEMATOLOGY RDW 16.5 % 11.5 - 08/03 14.5 [facility] HEMATOLOGY Platelet 62 K/CMM 133 - 450 08/03 [facility] HEMATOLOGY Hct 39.3 % 36.0 - 08/03 MH 48.0 /2017 [facility] HEMATOLOGY Hgb 13.2 g/dL 12.0 - 08/03 MH 16.0 /2016 [facility] HEMATOLOGY RBC 4.14 M/CMM 4.20 - 08/03 MH 5.40 /2016 [facility] HEMATOLOGY MCH 31.9 pg 27.0 - 08/03 MH 31.0 /2016 [facility] HEMATOLOGY MCV 95.1 fL 80.0 - 08/03 MH 98.0 /2016 [facility] MCHC 33.6 g/dL 32.0 - 08/03 MH 36.0 /2016 [facility] HEMATOLOGY WBC 2.8 K/CMM 3.7 - 10.4 08/03 MH [facility] Renal Renal Patient Name: EDGARD DÍAZ 08/03 - pyelogram pyelogram /2016 - [facility] retrograde retrograde : 1930; Age: 86 years Female DX DX MR: [id number] Read by: Thelma Chopra MD Dictated Date/time: 08/03/17 18:54 Study: Renal pyelogram retrograde DX 08/03/2017 3:09 PM FRAME TABLE OPERATOR Electronically Signed by: Thelma Chopra MD 08/03/17 [...] is not recommended in the following populations: [facility] 3m2 Individuals with unstable creatinine concentrations, including [...] Globulin 4.6 g/dL 2.7 - 4.2 08/02 [facility] HEMATOLOGY RBC 3.92 M/CMM 4.20 - 12/ MH 5.40 [facility] HEMATOLOGY WBC 5.1 K/CMM 3.7 - 10.4 08/02 [facility] HEMATOLOGY Hgb 12.3 g/dL 12.0 - 08/02 16.0 /2016 [facility] HEMATOLOGY RDW 15.9 % 11.5 - 12/ MH 14.5 /2016 [facility] MCHC 33.4 g/dL 32.0 - 12/ MH 36.0 /2016 [facility] MCH 31.3 pg 27.0 - 12/ MH 31.0 [facility] Hct 36.7 % 36.0 - 12/ MH 48.0 /2016 [facility] HEMATOLOGY MCV 93.6 fL 80.0 - 12/ MH 98.0 /2016 [facility] HEMATOLOGY MPV 8.9 fL 7.4 - 10.4 12/ /2016 [facility] Platelet 82 K/CMM 133 - 450 12/ [facility] HEMATOLOGY INR 1.49 0.85 - 08/02 MH 1.17 /2016 [facility] HEMATOLOGY PT 18.1 s 12.0 - 08/02 14.7 [facility] PTT 33.0 s 22.9 - 08/02 35.8 [facility] HEMATOLOGY Segs-Bands # 2.6 K/CMM 1.5 - 8.1 08/02 [facility] HEMATOLOGY Basophils 0.8 % 0.0 - 1.0 / /2016 [facility] HEMATOLOGY Lymphocytes 1.8 K/CMM 1.0 - 5.5 / MH # /2017 [facility] HEMATOLOGY Eosinophils 0.2 K/CMM 0.0 - 0.5 / MH # /2016 [facility] HEMATOLOGY Monocytes # 0.5 K/CMM 0.0 - 0.8 08/02 [facility] HEMATOLOGY Segs 51.3 % 45.0 - 12/ MH 75.0 [facility] HEMATOLOGY Monocytes 10.3 % 2.0 - 12.0 / [facility] HEMATOLOGY Lymphocytes 34.4 % 20.0 - 12/ MH 40.0 /2016 [facility] HEMATOLOGY Eosinophils 3.2 % 0.0 - 4.0 08/02 [facility] ELECTROLYT AGAP 14.3 meq/L 10.0 - 04/13 ES 20.0 /2016 [facility] ELECTROLYT eGFR 46 04/13 Result Comment: The [...] is not recommended in the following populations: [facility] 3m2 Individuals with unstable creatinine concentrations, including [...] 0.50 - 04/13 ES Lvl 1.40 /2016 [facility] ELECTROLYT BUN 13 mg/dL 7 - 22 04/13 [facility] ELECTROLYT Potassium 4.3 meq/L 3.5 - 5.1 04/13 ES Lvl /2016 [facility] ELECTROLYT Sodium Lvl 142 meq/L 135 - 145 04/13 [facility] ELECTROLYT Chloride Lvl 107 meq/L 95 - 109 04/13 [facility] ELECTROLYT CO2 25 meq/L 24 - 32 04/13 [facility] ELECTROLYT Calcium Lvl 9.3 mg/dL 8.5 - 10.5 04/13 [facility] ELECTROLYT Glucose Lvl 101 mg/dL 70 - 99 04/13 [facility] HEMATOLOGY Eosinophils 0.2 K/CMM 0.0 - 0.5 04/13 MH # /2017 [facility] HEMATOLOGY Basophils # 0.1 K/CMM 0.0 - 0.2 04/13 [facility] HEMATOLOGY Monocytes # 0.6 K/CMM 0.0 - 0.8 04/13 [facility] HEMATOLOGY Lymphocytes 1.8 K/CMM 1.0 - 5.5 04/13 [facility] HEMATOLOGY Segs-Bands # 3.0 K/CMM 1.5 - 8.1 04/13 [facility] HEMATOLOGY Basophils 0.9 % 0.0 - 1.0 04/13 [facility] HEMATOLOGY Monocytes 10.4 % 2.0 - 12.0 04/13 [facility] HEMATOLOGY Eosinophils 3.0 % 0.0 - 4.0 04/13 [facility] HEMATOLOGY Segs 53.7 % 45.0 - 04/13 75.0 /2017 [facility] HEMATOLOGY Lymphocytes 32.0 % 20.0 - 04/13 MH 40.0 /2016 [facility] HEMATOLOGY INR 1.27 0.85 - 04/13 MH 1.17 /2016 [facility] HEMATOLOGY PT 16.2 s 12.0 - 04/13 14.7 [facility] MPV 8.9 fL 7.4 - 10.4 04/13 [facility] RDW 15.4 % 11.5 - 04/13 14.5 [facility] Platelet 79 K/CMM 133 - 450 04/13 [facility] MCH 32.2 pg 27.0 - 08 31.0 /2016 [facility] MCHC 33.3 g/dL 32.0 - 04/13 36.0 /2016 [facility] RBC 4.00 M/CMM 4.20 - 04/13 5.40 /2016 [facility] MCV 96.5 fL 80.0 - 04/13 98.0 /2016 [facility] Hct 38.6 % 36.0 - 04/13 48.0 [facility] Hgb 12.9 g/dL 12.0 - 04/13 16.0 [facility] WBC 5.6 K/CMM 3.7 - 10.4 04/13 [facility] PTT 28.2 s 22.9 - 04/13 35.8 [facility] PET CT PET CT Patient Name: EDGARD DÍAZ 03/04 - Colorectal Colorectal /2016 - [facility] [place] restaging : 1930; Age: 86 years y/o Female restaging MR: [id number] Read by: Williams Reynolds MD Dictated Date/time: [...] urinary bladder suspicious for chronic cystitis. SL: [id number] ELECTROLYT AGAP 7.1 meq/L 10.0 - 02/16 ES 20.0 [facility] ELECTROLYT eGFR 54 02/16 Result Comment: The eGFR is calculated using the CKD-EPI formula. In most young, healthy individuals the eGFR will be >90 mL/ min/1.73m2. The eGFR declines with age. An eGFR of 60-89 may be normal in [facility] mL/min/1.7 some populations, particularly the elderly, for whom the CKD-EPI formula has not been extensively validated. Use of the eGFR is not recommended in the following populations: [facility] 3m2 Individuals with unstable creatinine concentrations, including [...] 8.8 mg/dL 8.5 - 10.5 02/16 ES [facility] ELECTROLYT Chloride Lvl 107 meq/L 95 - 109 02/16 ES [facility] ELECTROLYT CO2 30 meq/L 24 - 32 02/16 ES [facility] ELECTROLYT Potassium 4.1 meq/L 3.5 - 5.1 02/16 ES Lvl [facility] ELECTROLYT Glucose Lvl 75 mg/dL 70 - 99 02/16 ES [facility] ELECTROLYT BUN 11 mg/dL 7 - 22 02/16 ES [facility] ELECTROLYT Creatinine 0.95 mg/dL 0.50 - 02/16 ES Lvl 1.40 /2016 [facility] ELECTROLYT Sodium Lvl 140 meq/L 135 - 145 02/16 [facility] HEMATOLOGY Hgb 13.0 g/dL 12.0 - 02/16 MH 16. [facility] HEMATOLOGY Hct 38.8 % 36.0 - 02/16 MH 48.0 [facility] TUMOR CEA 11.8 ng/mL 0.0 - 3.0 02/16 [facility] CHEM PANEL A/G Ratio 0.6 0.7 - 1.6 08/07 [facility] CHEM PANEL AGAP 11.9 meq/L 10.0 - 08/07 MH 20. [facility] CHEM PANEL Globulin 4.1 g/dL 2.0 - 4.0 08/07 [facility] CHEM PANEL B/C Ratio 15 6 - 25 08/07 [facility] CHEM PANEL eGFR 61 08/07 Result Comment: [...] is not recommended in the following populations: [facility] 3m2 Individuals with unstable creatinine concentrations, including [...] CO2 25 meq/L 24 - 32 08/07 [facility] CHEM PANEL Chloride Lvl 106 meq/L 95 - 109 08/07 [facility] CHEM PANEL Calcium Lvl 8.5 mg/dL 8.5 - 10.5 08/07 [facility] CHEM PANEL Albumin Lvl 2.5 g/dL 3.5 - 5.0 08/07 [facility] CHEM PANEL Total 6.6 g/dL 6.4 - 8.4 08/07 [facility] CHEM PANEL ALT 20 unit/L 0 - 65 08/07 [facility] CHEM PANEL AST 26 unit/L 0 - 37 08/07 [facility] CHEM PANEL Alk Phos 109 unit/L 39 - 136 08/07 [facility] CHEM PANEL Bili Total 1.2 mg/dL 0.2 - 1.3 08/07 [facility] CHEM PANEL Potassium 3.9 meq/L 3.5 - 5.1 08/07 Lvl [facility] CHEM PANEL Sodium Lvl 139 meq/L 135 - 145 08/07 [facility] CHEM PANEL Creatinine 0.88 mg/dL 0.50 - 12 MH Lvl 1.40 [facility] CHEM PANEL Glucose Lvl 120 mg/dL 70 - 99 08/07 [facility] CHEM PANEL BUN 13 mg/dL 7 - 22 08/07 [facility] CHEM PANEL Magnesium 1.9 mg/dL 1.8 - 2.4 08/07 l /2014 [facility] HEMATOLOGY MPV 8.8 fL 7.4 - 10.4 08/07 [facility] HEMATOLOGY Platelet 54 K/CMM 133 - 450 08/07 [facility] HEMATOLOGY MCHC 33.1 g/dL 32.0 - 08/07 36.0 /2014 [facility] HEMATOLOGY RDW 14.7 % 11.5 - 08/07 MH 14.5 [facility] HEMATOLOGY MCV 97.0 fL 80.0 - 08/07 98.0 /2014 [facility] HEMATOLOGY MCH 32.1 pg 27.0 - 08/07 MH 31.0 /2014 [facility] HEMATOLOGY RBC 3.54 M/CMM 4.20 - 08/07 MH 5.40 /2014 [facility] HEMATOLOGY WBC 3.6 K/CMM 3.7 - 10.4 08/07 [facility] HEMATOLOGY Hct 34.3 % 36.0 - 08/07 48.0 /2014 [facility] HEMATOLOGY Hgb 11.4 g/dL 12.0 - 08/07 16.0 [facility] HEMATOLOGY Monocytes # 0.2 K/CMM 0.0 - 0.8 08/07 [facility] HEMATOLOGY Eosinophils 1.3 % 0.0 - 4.0 08/07 [facility] HEMATOLOGY Monocytes 7.0 % 2.0 - 12.0 08/07 [facility] HEMATOLOGY Lymphocytes 1.1 K/CMM 1.0 - 5.5 08/07 /2014 [facility] HEMATOLOGY Basophils 0.6 % 0.0 - 1.0 08/07 [facility] HEMATOLOGY Segs-Bands # 2.2 K/CMM 1.5 - 8.1 08/07 [facility] HEMATOLOGY Segs 61.3 % 45.0 - 08/07 75.0 [facility] HEMATOLOGY Lymphocytes 29.8 % 20.0 - 08/07 MH 40.0 [facility] URINE AND UA Nitrite Negative Negative 08/06 [facility] (08/06/15 3:01 PM) URINE AND UA Leuk Est Large Negative 08/06 *ABN* (08/06/15 3:01 PM) URINE AND UA Blood Moderate Negative 08/06 [facility] *ABN* (08/06/15 3:01 PM) URINE AND UA Bili Negative Negative 08/06 [facility] *NA* (08/06/15 3:01 PM) URINE AND UA >=8.0 0.1 - 1.0 08/06 [facility] Urobilinogen [facility] *ABN* (08/06/15 3:01 PM) URINE AND UA Color Yellow Yellow 08/06 [facility] *NA* (08/06/15 3:01 PM) URINE AND UA Turbidity Cloudy Clear 08/06 [facility] *ABN* (08/06/15 3:01 PM) URINE AND UA Glucose Negative Negative 08/06 [facility] (08/06/15 3:01 PM) URINE AND UA Ketones Negative Negative 08/06 [facility] *NA* (08/06/15 3:01 PM) URINE AND UA Spec Grav 1.015 <=1.030 08/06 [facility] URINE AND UA pH 6.5 5.0 - 8.0 08/06 [facility] URINE AND UA Protein 30 mg/dL Negative 08/06 [facility] mg/dL [facility] URINE AND UA Sq Epi Few /LPF Few /LPF 08/06 [facility] URINE AND UA [place] Yeast Many /HPF None Seen 08/06 [facility] /HPF /2014 [facility] URINE AND UA WBC null 0 - 5 08/06 URINE AND UA RBC 17 /HPF 0 - 2 08/06 [facility] Carotid Carotid CAROTID DOPPLER 08/06 - artery artery /2014 - [facility] Doppler Doppler bilat US bilat US Read [...] Occasional None Seen 08/06 [facility] /HPF /HPF [facility] URINE AND UA Mucus Few /LPF None Seen 08/06 [facility] /LPF [facility] URINE AND UA Bacteria Moderate None Seen 08/06 [facility] /HPF /HPF /2014 URINE AND UA WBC null 0 - 5 08/06 [facility] URINE AND UA Sq Epi Moderate Few /LPF 08/06 [facility] /LPF URINE AND UA RBC 13 /HPF 0 - 2 08/06 [facility] URINE AND UA Nitrite Negative Negative 08/06 [...] UA Spec Grav 1.015 <=1.030 08/06 [facility] URINE AND UA Turbidity Slight Cloudy Clear 08/06 [facility] (08/05/15 10:40 PM) URINE AND UA Color Yellow Yellow 08/06 [facility] *NA* (08/05/15 10:40 PM) URINE AND UA Protein Negative Negative 08/06 [facility] (08/05/15 10:40 PM) URINE AND UA pH 6.0 5.0 - 8.0 08/06 [facility] CARDIAC CK MB 5.3 ng/mL 0.5 - 3.6 08/06 [facility] CARDIAC Total CK 116 unit/L 12 - 191 08/06 [facility] CARDIAC BNP 45 pg/mL <=100 08/06 [facility] pg/mL [facility] CARDIAC Troponin-I null 0.00 - 08/06 [facility] 0.40 [facility] CARDIAC CK MB Index 4.6 0.0 - 2.5 08/06 [facility] CHEM PANEL Ammonia 47.0 <=45.0 08/06 umol/L uMol/L [facility] CHEM PANEL Alk Phos 118 unit/L 39 - 136 08/06 [facility] CHEM PANEL Total 7.4 g/dL 6.4 - 8.4 08/06 Protein [facility] CHEM PANEL Calcium Lvl 8.5 mg/dL 8.5 - 10.5 08/06 [facility] CHEM PANEL eGFR 67 08/06 Result Comment: [...] is not recommended in the following populations: [facility] 3m2 Individuals with unstable creatinine concentrations, including [...] Total 1.0 mg/dL 0.2 - 1.3 08/06 [facility] CHEM PANEL A/G Ratio 0.6 0.7 - 1.6 08/06 [facility] CHEM PANEL ALT 21 unit/L 0 - 65 08/06 [facility] CHEM PANEL Albumin Lvl 2.7 g/dL 3.5 - 5.0 08/06 [facility] CHEM PANEL AST 27 unit/L 0 - 37 08/06 [facility] CHEM PANEL AGAP 11.5 meq/L 10.0 - 12 MH 20.0 [facility] CHEM PANEL Globulin 4.7 g/dL 2.0 - 4.0 08/06 [facility] CHEM PANEL B/C Ratio 14 6 - 25 08/06 [facility] CHEM PANEL BUN 11 mg/dL 7 - 22 08/06 [facility] CHEM PANEL Chloride Lvl 106 meq/L 95 - 109 08/06 [facility] CHEM PANEL Creatinine 0.81 mg/dL 0.50 - 08/06 Lvl 1.40 /2014 [facility] CHEM PANEL Potassium 3.5 meq/L 3.5 - 5.1 08/06 Lvl /2014 [facility] CHEM PANEL Sodium Lvl 140 meq/L 135 - 145 08/06 [facility] CHEM PANEL CO2 26 meq/L 24 - 32 08/06 [facility] CHEM PANEL Glucose Lvl 109 mg/dL 70 - 99 08/06 [facility] HEMATOLOGY MPV 9.1 fL 7.4 - 10.4 08/06 [facility] HEMATOLOGY RDW 15.4 % 11.5 - 08/06 14. [facility] HEMATOLOGY Platelet 70 K/CMM 133 - 450 08/06 [facility] HEMATOLOGY MCHC 33.1 g/dL 32.0 - 12 36.0 [facility] HEMATOLOGY MCH 32.1 pg 27.0 - 12 MH 31.0 [facility] HEMATOLOGY MCV 97.2 fL 80.0 - 08/06 98.0 [facility] HEMATOLOGY Hct 36.5 % 36.0 - 12 MH 48.0 [facility] HEMATOLOGY Hgb 12.1 g/dL 12.0 - 12 MH 16.0 [facility] HEMATOLOGY RBC 3.76 M/CMM 4.20 - 12 [...] is not recommended in the following populations: [facility] 3m2 Individuals with unstable creatinine concentrations, including [...] Total 0.9 mg/dL 0.2 - 1.3 08/05 [facility] CHEM PANEL Alk Phos 126 unit/L 39 - 136 08/05 [facility] CHEM PANEL Albumin Lvl 2.7 g/dL 3.5 - 5.0 08/05 [facility] CHEM PANEL ALT 22 unit/L 0 - 65 08/05 [facility] CHEM PANEL AST 27 unit/L 0 - 37 08/05 [facility] CHEM PANEL AGAP 11.8 meq/L 10.0 - 08/05 20.0 [facility] CHEM PANEL B/C Ratio 14 6 - 25 08/05 [facility] CHEM PANEL A/G Ratio 0.6 0.7 - 1.6 08/05 [facility] CHEM PANEL Globulin 4.6 g/dL 2.0 - 4.0 08/05 [facility] HEMATOLOGY MPV 8.9 fL 7.4 - 10.4 08/05 [facility] HEMATOLOGY RDW 15.3 % 11.5 - 08/05 MH 14. [facility] HEMATOLOGY Platelet 69 K/CMM 133 - 450 08/05 [facility] HEMATOLOGY Hct 37.6 % 36.0 - 08/05 MH 48.0 [facility] HEMATOLOGY MCHC 32.8 g/dL 32.0 - 08/05 MH 36.0 [facility] HEMATOLOGY Hgb 12.4 g/dL 12.0 - 08/05 MH 16.0 [facility] HEMATOLOGY MCV 96.5 fL 80.0 - 08/05 MH 98.0 [facility] MCH 31.7 pg 27.0 - 08/05 MH 31.0 /2014 [facility] HEMATOLOGY WBC 6.2 K/CMM 3.7 - 10.4 08/05 /2014 [facility] HEMATOLOGY RBC 3.90 M/CMM 4.20 - 08/05 5.40 /2015 [facility] HEMATOLOGY Monocytes # 0.5 K/CMM 0.0 - 0.8 08/05 /2014 [facility] HEMATOLOGY Basophils 0.6 % 0.0 - 1.0 08/05 /2014 [facility] HEMATOLOGY Segs-Bands # 4.2 K/CMM 1.5 - 8.1 08/05 /2014 [facility] HEMATOLOGY Eosinophils 0.1 K/CMM 0.0 - 0.5 08/05 # /2015 [facility] HEMATOLOGY Lymphocytes 1.4 K/CMM 1.0 - 5.5 08/05 # /2015 [facility] HEMATOLOGY Lymphocytes 22.3 % 20.0 - 08/05 40.0 /2014 [facility] HEMATOLOGY Monocytes 7.3 % 2.0 - 12.0 08/05 /2014 [facility] HEMATOLOGY Eosinophils 1.4 % 0.0 - 4.0 08/05 [facility] HEMATOLOGY Segs 68.4 % 45.0 - 08/05 75.0 /2014 [facility] Chest Chest 1view Chest one view: 08/05 [...] 08/05 - contrast contrast CT /2014 - [facility] CT REASON FOR EXAM: pt from IV [...] Basophils 0.4 % 0.0 - 1.0 04/19 [facility] HEMATOLOGY Monocytes # 0.9 K/CMM 0.0 - 0.8 04/19 [facility] HEMATOLOGY Lymphocytes 1.0 K/CMM 1.0 - 5.5 04/19 MH # /2013 [facility] HEMATOLOGY Segs-Bands # 4.2 K/CMM 1.5 - 8.1 04/19 [facility] HEMATOLOGY Eosinophils 0.2 K/CMM 0.0 - 0.5 04/19 MH # /2013 [facility] HEMATOLOGY Eosinophils 2.7 % 0.0 - 4.0 04/19 [facility] HEMATOLOGY Monocytes 13.7 % 2.0 - 12.0 04/19 [facility] Lymphocytes 16.6 % 20.0 - 04/19 MH 40.0 /2013 [facility] HEMATOLOGY Segs 66.6 % 45.0 - 04/19 MH 75.0 /2013 [facility] MCHC 33.3 g/dL 32.0 - 04/19 MH 36.0 /2013 [facility] HEMATOLOGY RDW 15.2 % 11.5 - 04/19 MH 14.5 /2013 [facility] HEMATOLOGY MCH 32.3 pg 27.0 - 04/19 MH 31.0 /2013 [facility] HEMATOLOGY MCV 96.9 fL 80.0 - 04/19 MH 98.0 /2013 [facility] HEMATOLOGY Hct 30.1 % 36.0 - 04/19 MH 48.0 [facility] Platelet 67 K/CMM 133 - 450 04/19 [facility] MPV 8.4 fL 7.4 - 10.4 04/19 [facility] Hgb 10.0 g/dL 12.0 - 04/19 MH 16.0 [facility] HEMATOLOGY RBC 3.11 M/CMM 4.20 - 04/19 MH 5.40 /2013 [facility] HEMATOLOGY WBC 6.3 K/CMM 3.7 - 10.4 04/19 [facility] Chest 2 Chest 2 EXAM: Chest 2 views 04/19 - views views /2013 - [facility] DATE: Apr 19, 2014 09:48:02 AM Read [...] Globulin 4.8 g/dL 2.0 - 4.0 04/13 [facility] CHEM PANEL A/G Ratio 0.6 0.7 - 1.6 04/13 [facility] CHEM PANEL AGAP 13.4 meq/L 10.0 - 04/13 20.0 [facility] CHEM PANEL B/C Ratio 9 6 - 25 04/13 [facility] CHEM PANEL eGFR 59 04/13 1Result Comment: [...] is not recommended in the following populations: [facility] 3m2 Individuals with unstable creatinine concentrations, including [...] values reflect the clinical guidelines of the [place] [employer]. [facility] CHEM PANEL BUN 8 [...] Total 1.3 mg/dL 0.2 - 1.3 04/13 [facility] CHEM PANEL Total 7.7 g/dL 6.4 - 8.4 04/13 [facility] CHEM PANEL Albumin Lvl 2.9 g/dL 3.5 - 5.0 04/13 [facility] HEMATOLOGY MCH 32.1 pg 27.0 - 04/13 31.0 [facility] HEMATOLOGY RDW 14.6 % 11.5 - 04/13 14.5 [facility] HEMATOLOGY MCHC 33.1 g/dL 32.0 - 04/13 36.0 /2013 [facility] HEMATOLOGY Platelet 76 K/CMM 133 - 450 04/13 [facility] HEMATOLOGY RBC 3.79 M/CMM 4.20 - 04/13 5.40 /2013 [facility] HEMATOLOGY Hct 36.7 % 36.0 - 04/13 48.0 /2013 [facility] HEMATOLOGY MCV 97.0 fL 81.0 - 04/13 99.0 /2013 [facility] HEMATOLOGY Hgb 12.1 g/dL 12.0 - 04/13 16.0 [facility] HEMATOLOGY WBC 4.6 K/CMM 3.7 - 10.4 04/13 [facility] HEMATOLOGY MPV 8.9 fL 7.4 - 10.4 04/13 [facility] HEMATOLOGY Segs 52.6 % 45.0 - 04/13 75.0 /2013 [facility] HEMATOLOGY Monocytes # 0.6 K/CMM 0.0 - 0.8 04/13 [facility] HEMATOLOGY Eosinophils 0.1 K/CMM 0.0 - 0.5 04/13 /2013 [facility] HEMATOLOGY Basophils 1.0 % 0.0 - 1.0 04/13 [facility] HEMATOLOGY Segs-Bands # 2.4 K/CMM 1.5 - 8.1 04/13 [facility] HEMATOLOGY Lymphocytes 1.5 K/CMM 1.0 - 5.5 04/13 /2013 [facility] HEMATOLOGY Lymphocytes 32.1 % 20.0 - 04/13 40.0 [facility] HEMATOLOGY Monocytes 12.2 % 2.0 - 12.0 04/13 [facility] HEMATOLOGY Eosinophils 2.1 % 0.0 - 4.0 04/13 [facility] PET CT PET CT PET/CT SCAN: 03/24 [facility] Colorectal Colorectal /2013 - [facility] [place] restaging restaging TECHNIQUE: 14 [...] AST 43 unit/L 0 - 37 03/06 [facility] CHEM PANEL Albumin Lvl 2.9 g/dL 3.5 - 5.0 03/06 [facility] CHEM PANEL Total 7.7 g/dL 6.4 - 8.4 03/06 [facility] CHEM PANEL Bili Direct 0.5 mg/dL 0.0 - 0.3 03/06 [facility] CHEM PANEL Alk Phos 137 unit/L 39 - 136 03/06 [facility] CHEM PANEL Bili Total 1.4 mg/dL 0.2 - 1.3 03/06 [facility] CHEM PANEL ALT 22 unit/L 0 - 65 03/06 [facility] CHEM PANEL Bili 0.9 mg/dL 0.0 - 1.0 03/06 [facility] CHEM PANEL Globulin 4.8 g/dL 2.0 - 4.0 03/06 [facility] CHEM PANEL A/G Ratio 0.6 0.7 - 1.6 03/06 [facility] ELECTROLYT AGAP 8.9 meq/L 10.0 - 03/06 ES 20.0 [facility] ELECTROLYT eGFR 59 03/06 1Result Comment: The eGFR is calculated using the CKD-EPI formula. In most young, healthy individuals the eGFR will be >90 mL/ min/1.73m2. The eGFR declines with age. An eGFR of 60-89 may be normal in [facility] mL/min/1.7 /2013 some populations, particularly the elderly, for whom the CKD-EPI formula has not been extensively validated. Use of the eGFR is not recommended in the following populations: [facility] 3m2 Individuals with unstable creatinine concentrations, including [...] CO2 28 meq/L 24 - 32 03/06 [facility] ELECTROLYT Calcium Lvl 8.7 mg/dL 8.5 - 10.5 03/06 [facility] ELECTROLYT BUN 9 mg/dL 7 - 22 03/06 [facility] ELECTROLYT Creatinine 0.9 mg/dL 0.5 - 1.4 03/06 [facility] Lvl [facility] ELECTROLYT Sodium Lvl 140 meq/L 135 - 145 03/06 [facility] ELECTROLYT Potassium 3.9 meq/L 3.5 - 5.1 03/06 ES Lvl [facility] ELECTROLYT Chloride Lvl 107 meq/L 95 - 109 03/06 [facility] ELECTROLYT Glucose Lvl 84 mg/dL 70 - 99 03/06 2Interpretive Data: Adult reference range values reflect the clinical guidelines of the [place] [employer]. [facility] HEMATOLOGY Hgb 11.9 g/dL 12.0 - 03/06 16.0 [facility] HEMATOLOGY Hct 35.2 % 36.0 - 03/06 48.0 [facility] HEMATOLOGY Platelet 80 K/CMM 133 - 450 03/06 [facility] HEMATOLOGY WBC 4.4 K/CMM 3.7 - 10.4 03/06 [facility] HEMATOLOGY PT 15.9 s 12.0 - 03/06 14.7 [facility] HEMATOLOGY INR 1.29 0.85 - 07 3Interpretive Data: RECOMMENDED RANGES FOR PROTIME INR: . 2.0-3.0 for most medical and surgical thromboembolic states. [facility] 2.5-3.5 for artificial heart valves and recurrent embolism. INR SHOULD BE USED ONLY FOR PATIENTS ON STABLE ANTICOAGULANT THERAPY. HEMATOLOGY PTT 32.6 s 22.9 - 03/06 4Interpretive 35.8 /2013 Data: Heparin [facility] Therapeutic Range: 57 - 92 Seconds TUMOR CEA 12.2 ng/mL 0.0 - 3.0 03/06 [facility] PET CT PET CT 09/14 - Colorectal Colorectal - [facility] [place] restaging EXAM: PET/CT restaging HISTORY: [...] Vital Signs Vital Sign Value Date Comments [facility] Systolic (mm Hg) 125 08/03/2017 [facility] Diastolic (mm Hg) 71 08/03/2017 [facility] Systolic (mm Hg) 129 08/03/2017 [facility] Diastolic (mm Hg) 66 08/03/2017 [facility] Systolic (mm Hg) 128 08/03/2017 [facility] Diastolic (mm Hg) 59 08/03/2017 [facility] Respitory Rate 16 08/03/2017 [facility] Respitory Rate 11 08/03/2017 [facility] Respitory Rate 9 08/03/2017 [facility] Temperature Oral (F) 97.3 F 08/02/2017 [facility] Heart Rate 70 08/02/2017 [facility] BMI Calculated 27.18 08/02/2017 [facility] Height 165.1 cm 08/02/2017 [facility] Weight 74.091 08/02/2017 [facility] Systolic (mm Hg) 99 04/21/2017 [facility] Diastolic (mm Hg) 56 04/21/2017 [facility] Respitory Rate 18 04/21/2017 [facility] Respitory Rate 18 04/21/2017 [facility] Systolic (mm Hg) 114 04/21/2017 [facility] Diastolic (mm Hg) 58 04/21/2017 [facility] Systolic (mm Hg) 109 04/21/2017 [facility] Diastolic (mm Hg) 56 04/21/2017 [facility] Respitory Rate 12 04/21/2017 [facility] Height 165.1 cm 04/13/2017 [facility] Weight 74.545 04/13/2017 [facility] BMI Calculated 27.35 04/13/2017 [facility] Temperature Oral (F) 97.4 F 04/13/2017 [facility] Heart Rate 80 04/13/2017 [facility] Systolic (mm Hg) 118 02/23/2017 [facility] Diastolic (mm Hg) 61 02/23/2017 [facility] Respitory Rate 32 02/23/2017 [facility] Respitory Rate 28 02/23/2017 [facility] Systolic (mm Hg) 109 02/23/2017 [facility] Diastolic (mm Hg) 60 02/23/2017 [facility] Systolic (mm Hg) 109 02/23/2017 [facility] Diastolic (mm Hg) 61 02/23/2017 [facility] Respitory Rate 23 02/23/2017 [facility] Temperature Oral (F) 97.4 F 02/16/2017 [facility] Heart Rate 72 02/16/2017 [facility] BMI Calculated 28.02 02/16/2017 [facility] Weight 76.364 02/16/2017 [facility] Height 165.1 cm 02/16/2017 [facility] Weight 159 08/12/2015 [id number] Height 64.4 08/12/2015 [id number]. [id number] Temperature Oral (F) 97.6 F 08/12/2015 [id number]. [id number] Heart Rate 93 08/12/2015 [id number]. [id number] Diastolic (mm Hg) 63 08/12/2015 [id number]. [id number] Systolic (mm Hg) 114 08/12/2015 [id number]. [id number] Systolic (mm Hg) 102 08/07/2015 [facility] Diastolic (mm Hg) 66 08/07/2015 [facility] Temperature Oral (F) 97.6 F 08/07/2015 [facility] Respitory Rate 16 08/07/2015 [facility] Heart Rate 77 08/07/2015 [facility] Respitory Rate 15 08/07/2015 [facility] Temperature Oral (F) 97.4 F 08/07/2015 [facility] Heart Rate 81 08/07/2015 [facility] Systolic (mm Hg) 100 08/07/2015 [facility] Diastolic (mm Hg) 66 08/07/2015 [facility] Systolic (mm Hg) 115 08/07/2015 [facility] Diastolic (mm Hg) 73 08/07/2015 [facility] Heart Rate 83 08/07/2015 [facility] Respitory Rate 16 08/07/2015 [facility] Temperature Oral (F) 97.4 F 08/07/2015 [facility] BMI Calculated 26.89 08/06/2015 [facility] Weight 73.295 [...] [facility] Diastolic (mm Hg) 54 03/13/2014 [facility] Temperature Oral (F) 97.6 F 03/06/2014 [facility] Height 165.1 cm 03/06/2014 [facility] Weight 65.909 03/06/2014 [facility] BMI Calculated 24.18 03/06/2014 [facility] Weight 149 02/02/2014 [facility] Temperature Oral [...] Number For Provider Date Date Visit Outpatient [id number] COLON PING CEBALLOS 09/14 Active [facility] 9 [facility] Outpatient [id number] 153.9 PING CEBALLOS 09/20 Active [facility] [id number] Theodoros 03/13 03/13 [facility] Outpatient 0 [facility] Office [id number] [place] Michele, 03/23 [facility] [id number] [place] [facility] General [facility] [address] [facility] Outpatient [id number] Ping Ceballos 03/24 03/25 [place] [facility] Lab Report [id number] [place] Michele, 03/26 03/26 [place] [id number] [facility] Lab Report [id number] The[place] 04/12 04/12 [place] [id number] [facility] OBS [id number] Dakota Michele 04/18 04/20 [place] Observation [facility] Office [id number] Dakota Michele, 04/27 04/27 [place] Visit [id number] OP [id number] Ping Ceballos 08/05 09/04 [place] Recurring [facility] OBS [id number] Van 08/06 08/07 [place] Observ[facility] 3 [facility] Unknown [id number] 08/12 08/12 [id number] Medical [id number] /2014 .[id number] Group [id number] Outpatient [id number] THEODOROS 05/14 [facility] [place] Out[facility] [id number] THEODOROS 10/15 [facility] 1 [facility] [place] Outpatient [id number] THEODOROS 02/23 [facility] 3 [facility]OY [place] Outpatient [id number] THEODORO 02/23 [facility] 2 [facility] Bedded [id number] Theodoros 02/23 02/23 [facility] Outpatient 4 [facility] [id number] Theodoros 03/04 03/05 [facility] 5 Voloyian /2016 [facility] Outpatient [id number] [facility] 03/30 [facility] [id number] THEODOROS 04/21 [facility] 5 [facility] [id number] [facility] Outpatient [id number] ROMAN FOSTER 05/12 [facility] [id number] [facility] 05/17 [facility] [place] [id number] NURSE VISIT 06/22 Active [facility] [id number] [facility] 08/03 08/03 [place] /2016 [facility] Outpatient [id number] JOVANA CUI 08/26 Active [facility] [id number] [facility] 08/26 Active [facility] Ambulatory [id number] Jovana Karli 08/26 08/26 Urology [facility] Outpatient [id number] [facility] 08/26 08/27 [facility] Outpatient [id number] [facility] 09/27 Active [facility] Outpatient [id number] [facility] 09/27 09/28 [facility] Outpatient [id number] [facility] 01/14 Active [facility] Ambulatory [id number] [facility] 01/14 01/14 Urology [facility] Procedures Procedure Code Date Perfomer Comments Source Cystourethroscopy, 36683 Medical with removal of 7 Group foreign body, calculus, or ureteral stent from urethra or bladder (separate procedure); simple Hernia repair [id number] [facility] 4 Hernia repair [id number] Medical 4 Group Cannulation of [id number] [facility] Portacath Cardiac [id number] 1994 [facility] catheterization<sup>1 </sup> Cholecystectomy 16665525 [facility] Colonoscopy 89664116 [facility] Hysterectomy 581321582 [facility] Knee [id number] 2011 [facility] replacement<sup>2</red p> Operation [id number] [facility] Partial resection of 45871416 [facility] colon Cannulation of 216085025 Medical Port[facility] Group Cardiac 01472551 1994 Medical catheterization<sup>1 Group </sup> Cataract extraction 749112032 Medical and insertion of Group intraocular lens Cholecystectomy 60158850 Medical Group Colonoscopy 85146054 Medical Group Hysterectomy 843098971 Medical Group Knee [id number] 2011 Medical replacement<sup>2</red Group p> Operation [id number] Medical Group Partial resection of 89780160 Medical colon Group Cataract extraction [id number] [facility] and insertion of intraocular lens
--- OUTSIDE RECORDS SUMMARY | 2018-12-19 12:55 | XMS REPORT | CCD ---
:1930 Author Organization [facility] Care Team Providers Name Role Phone Marlyn Ceballos Referring Provider Allergies, Adverse Reactions, Alerts Substance Reaction Status morphine Active Problem List Condition Effective Dates Status CAD - Coronary artery disease Active Cancer of colon 05/10/2011 Active Cirrhosis of liver Active Esophageal varices Active Hepatitis C Active Pneumonia Active
--- OUTSIDE RECORDS SUMMARY | 2018-12-19 12:55 | XMS REPORT | CCD ---
:1930 Author Organization [facility] Care Team Providers Name Role Phone Marlyn Ceballos Consulting Provider Allergies, Adverse Reactions, Alerts Substance Reaction Status morphine Active Problem List Condition Effective Dates Status CAD - Coronary artery disease Active Cancer of colon 05/10/2011 Active Cirrhosis of liver Active Esophageal varices Active Hepatitis C Active Pneumonia Active
--- OUTSIDE RECORDS SUMMARY | 2018-12-19 12:56 | XMS REPORT | Continuity of Care Document ---
:1930 Author Organization [facility] Care Team Providers Name Role Phone MD Michele Hoang Unavailable Unavailable Insurance Providers Payer name Policy type / Policy ID Covered democrat ID Policy [place] Coverage type [place]IC[place]: [employer] AARP HEALTHCARE OPTIONS (MEDICARE SUPPLEMENT AARP HEALTHCARE [...] Location Date Lab Report Dakota Michele MD [facility] [place] Mar 26, 2014 Allergies, Adverse Reactions, Alerts [...]
--- OUTSIDE RECORDS SUMMARY | 2018-12-19 12:56 | XMS REPORT | Continuity of Care Document ---
:1930 Author Organization [facility] Care Team Providers Name Role Phone MD Michele Hoang Unavailable Unavailable Insurance Providers Payer name Policy type / Policy ID Covered democrat ID Policy Mont[place] Coverage type MEDIC[place]: [employer] AARP HEALTHCARE OPTIONS (MEDICARE SUPPLEMENT AARP HEALTHCARE [...] Location Date Office Visit Dakota Michele MD [facility] Mar 23, 2014 Surgery [...]
--- OUTSIDE RECORDS SUMMARY | 2018-12-19 12:56 | XMS REPORT | Continuity of Care Document ---
:1930 Author Organization [facility] Care Team Providers Name Role Phone MD Michele Hoang Unavailable Unavailable Insurance Providers Payer name Policy type / Policy ID Covered democrat ID Policy Montoya Coverage type [place]IC[place]: [employer] AARP HEALTHCARE OPTIONS (MEDICARE SUPPLEMENT AARP HEALTHCARE [...] Date Office Visit Dakota Michele MD [facility] Apr 27, 2014 Surgery 350 [...]
--- OUTSIDE RECORDS SUMMARY | 2018-12-19 12:56 | XMS REPORT | Continuity of Care Document ---
:1930 Author Organization [facility] Care Team Providers Name Role Phone MD Niranjan, Galdino Unavailable Unavailable Insurance Providers Payer name Policy type / Policy ID Covered constitution party ID Policy Montoya Coverage type [place]IC[place]: [employer] AARP HEALTHCARE OPTIONS (MEDICARE SUPPLEMENT AARP HEALTHCARE [...] Location Date Lab Report Galdino Ureña MD [facility] Apr 12, 2014 Allergies, Adverse Reactions, [...]
--- OUTSIDE RECORDS SUMMARY | 2018-12-19 12:56 | XMS REPORT ---
:1930 Author Organization [facility] Address [address] [place] [address] [address] [place] [address] Care Team Providers Name Role Phone MARY [...] Value Reference Range Comments ALPHA-FETOPROTEIN (BEAKER) (test pmov=8829) 2.9 ng/mL <10.0 HEPATIC FUNCTION [id number] 16:38:00 Test Item Value Reference Range Comments TOTAL PROTEIN (BEAKER) (test fury=537) 9.0 gm/dL 6.0-8.3 ALBUMIN (BEAKER) (test rcwn=8104) 2.8 g/dL 3.5-5.0 BILIRUBIN TOTAL (BEAKER) (test sext=000) 1.2 mg/dL 0.2-1.2 BILIRUBIN DIRECT (BEAKER) (test szbg=500) 0.7 mg/dL 0.1-0.5 ALKALINE PHOSPHATASE (BEAKER) (test kbuo=209) 111 U/L 40-150 AST (SGOT) (BEAKER) (test schj=033) 31 U/L 5-34 ALT (SGPT) (BEAKER) (test yudp=106) 12 U/L 6-55 BASIC METABOLIC [id number] 16:38:00 Test Item Value Reference Range Comments SODIUM (BEAKER) (test 133 meq/L 136-145 kixq=130) POTASSIUM (BEAKER) (test 4.0 meq/L 3.5-5.1 yloy=161) CHLORIDE (BEAKER) (test 100 meq/L 98-107 gkzp=484) CO2 (BEAKER) (test 27 meq/L 22-29 jiiv=314) BLOOD UREA NITROGEN 20 mg/dL 7-21 (BEAKER) (test bgyw=316) CREATININE (BEAKER) (test 1.07 mg/dL 0.57-1.25 tuhy=938) GLUCOSE RANDOM (BEAKER) 71 mg/dL 70-105 (test ptmz=430) CALCIUM (BEAKER) (test 9.4 mg/dL 8.4-10.2 dvds=173) EGFR (BEAKER) (test 49 mL/min/1.73 sq m ESTIMATED GFR IS NOT oxvo=5805) ACCURATE CREATININE CLEARANCE IN PREDICTING GLOMERULAR FILTRATION RATE. ESTIMATED GFR IS NOT APPLICABLE FOR DIALYSIS PATIENTS. [id number] 16:33:00 Test Item Value Reference Range Comments AMMONIA (BEAKER) (test rbyc=822) 40 mol/L 18-72 PROTHROMBIN [id number] 16:29:00 Test Item Value Reference Range Comments PROTIME (BEAKER) (test tqmz=552) 16.5 seconds 11.7-14.7 INR (BEAKER) (test gtqm=724) 1.3 <=5.9 RECOMMENDED COUMADIN/WARFARIN INR THERAPY RANGESSTANDARD DOSE: 2.0 - 3.0 Includes: PROPHYLAXIS forvenous thrombosis, systemic embolization; TREATMENT for venous thrombosis and/or pulmonary embolus.HIGH RISK: Target INR is 2.5-3.5 for patients with mechanical heart valves.CBC W/PLT COUNT & AUTO [id number] 16:22:00 Test Item Value Reference Range Comments WHITE BLOOD CELL COUNT (BEAKER) (test mjyq=979) 5.0 K/ L 3.5-10.5 RED BLOOD CELL COUNT (BEAKER) (test hnmv=279) 3.39 M/ L 3.93-5.22 HEMOGLOBIN (BEAKER) (test sbgz=341) 10.7 GM/DL 11.2-15.7 HEMATOCRIT (BEAKER) (test zpwd=755) 33.1 % 34.1-44.9 MEAN CORPUSCULAR VOLUME (BEAKER) (test thvx=619) 97.6 fL 79.4-94.8 MEAN CORPUSCULAR HEMOGLOBIN (BEAKER) (test 31.6 pg 25.6-32.2 uaux=724) MEAN CORPUSCULAR HEMOGLOBIN CONC (BEAKER) (test 32.3 GM/DL 32.2-35.5 zlza=503) RED CELL DISTRIBUTION WIDTH (BEAKER) (test 15.0 % 11.7-14.4 biag=876) PLATELET COUNT (BEAKER) (test fcit=741) 98 K/CU MM 150-450 MEAN PLATELET VOLUME (BEAKER) (test ozlj=837) 10.0 fL 9.4-12.3 NUCLEATED RED BLOOD CELLS (BEAKER) (test 0 /100 WBC 0-0 abva=284) NEUTROPHILS RELATIVE PERCENT (BEAKER) (test 71 % fsqa=808) LYMPHOCYTES RELATIVE PERCENT (BEAKER) (test 14 % fubd=342) MONOCYTES RELATIVE PERCENT (BEAKER) (test 12 % tfay=381) EOSINOPHILS RELATIVE PERCENT (BEAKER) (test 2 % qiuy=788) BASOPHILS RELATIVE PERCENT (BEAKER) (test 1 % kybp=035) NEUTROPHILS ABSOLUTE COUNT (BEAKER) (test 3.51 K/ L 1.56-6.13 dfdo=281) LYMPHOCYTES ABSOLUTE COUNT (BEAKER) (test 0.69 K/ L 1.18-3.74 krma=205) MONOCYTES ABSOLUTE COUNT (BEAKER) (test ysjz=217) 0.62 K/ L 0.24-0.36 EOSINOPHILS ABSOLUTE COUNT (BEAKER) (test 0.10 K/ L 0.04-0.36 qqyt=115) BASOPHILS ABSOLUTE COUNT (BEAKER) (test mdsz=862) 0.04 K/ L 0.01-0.08 IMMATURE GRANULOCYTES-RELATIVE PERCENT (BEAKER) 0 % 0-1 (test brzg=5481) ALPHA FETOPROTEIN (AFP), TUMOR [id number] 17:15:00 Test Item Value Reference Range Comments ALPHA-FETOPROTEIN (BEAKER) (test wore=2741) 3.3 ng/mL <10.0 [id number] 16:34:00 Test Item Value Reference Range Comments MAGNESIUM (BEAKER) (test emjb=179) 1.8 mg/dL 1.6-2.6 BASIC METABOLIC [id number] 16:34:00 Test Item Value Reference Range Comments SODIUM (BEAKER) (test 133 meq/L 136-145 mbwp=692) POTASSIUM (BEAKER) (test 3.9 meq/L 3.5-5.1 arsk=076) CHLORIDE (BEAKER) (test 99 meq/L 98-107 soqz=361) CO2 (BEAKER) (test 25 meq/L 22-29 myhf=471) BLOOD UREA NITROGEN 12 mg/dL 7-21 (BEAKER) (test gfgm=859) CREATININE (BEAKER) (test 0.97 mg/dL 0.57-1.25 wyaw=521) GLUCOSE RANDOM (BEAKER) 93 mg/dL 70-105 (test tzgo=001) CALCIUM (BEAKER) (test 9.0 mg/dL 8.4-10.2 sgin=288) EGFR (BEAKER) (test 54 mL/min/1.73 sq m ESTIMATED GFR IS NOT umxi=6091) ACCURATE CREATININE CLEARANCE IN PREDICTING GLOMERULAR FILTRATION RATE. ESTIMATED GFR IS NOT APPLICABLE FOR DIALYSIS PATIENTS. Specimen slightly ictericHEPATIC FUNCTION [id number] 16:34:00 Test Item Value Reference Range Comments TOTAL PROTEIN (BEAKER) (test ukgy=460) 8.0 gm/dL 6.0-8.3 ALBUMIN (BEAKER) (test ehzm=2138) 3.0 g/dL 3.5-5.0 BILIRUBIN TOTAL (BEAKER) (test cuwr=201) 1.9 mg/dL 0.2-1.2 BILIRUBIN DIRECT (BEAKER) (test surx=770) 0.8 mg/dL 0.1-0.5 ALKALINE PHOSPHATASE (BEAKER) (test nhty=659) 122 U/L 40-150 AST (SGOT) (BEAKER) (test qcmx=986) 30 U/L 5-34 ALT (SGPT) (BEAKER) (test sdfq=579) 12 U/L 6-55 Specimen slightly ictericPROTHROMBIN [id number] 16:17:00 Test Item Value Reference Range Comments PROTIME (BEAKER) (test ojye=706) 17.3 seconds 11.7-14.7 INR (BEAKER) (test xadj=894) 1.4 <=5.9 RECOMMENDED COUMADIN/WARFARIN INR THERAPY RANGESSTANDARD DOSE: 2.0 - 3.0 Includes: PROPHYLAXIS forvenous thrombosis, systemic embolization; TREATMENT for venous thrombosis and/or pulmonary embolus.HIGH RISK: Target INR is 2.5-3.5 for patients with mechanical heart valves.CBC W/PLT COUNT & AUTO [id number] 16:17:00 Test Item Value Reference Range Comments WHITE BLOOD CELL COUNT (BEAKER) (test hobx=103) 5.6 K/ L 3.5-10.5 RED BLOOD CELL COUNT (BEAKER) (test onzq=675) 3.83 M/ L 3.93-5.22 HEMOGLOBIN (BEAKER) (test jrbs=414) 12.0 GM/DL 11.2-15.7 HEMATOCRIT (BEAKER) (test zwvu=117) 36.8 % 34.1-44.9 MEAN CORPUSCULAR VOLUME (BEAKER) (test hmyj=335) 96.1 fL 79.4-94.8 MEAN CORPUSCULAR HEMOGLOBIN (BEAKER) (test 31.3 pg 25.6-32.2 erov=932) MEAN CORPUSCULAR HEMOGLOBIN CONC (BEAKER) (test 32.6 GM/DL 32.2-35.5 bvgr=652) RED CELL DISTRIBUTION WIDTH (BEAKER) (test 15.9 % 11.7-14.4 zwtt=503) PLATELET COUNT (BEAKER) (test egms=029) 83 K/CU MM 150-450 MEAN PLATELET VOLUME (BEAKER) (test ctqm=190) 11.1 fL 9.4-12.3 NUCLEATED RED BLOOD CELLS (BEAKER) (test 0 /100 WBC 0-0 dila=580) NEUTROPHILS RELATIVE PERCENT (BEAKER) (test 54 % rmpu=848) LYMPHOCYTES RELATIVE PERCENT (BEAKER) (test 36 % rbba=093) MONOCYTES RELATIVE PERCENT (BEAKER) (test 8 % hose=409) EOSINOPHILS RELATIVE PERCENT (BEAKER) (test 2 % ulwq=690) BASOPHILS RELATIVE PERCENT (BEAKER) (test 1 % dwnr=797) NEUTROPHILS ABSOLUTE COUNT (BEAKER) (test 3.01 K/ L 1.56-6.13 mfgs=184) LYMPHOCYTES ABSOLUTE COUNT (BEAKER) (test 1.98 K/ L 1.18-3.74 znaz=670) MONOCYTES ABSOLUTE COUNT (BEAKER) (test mqqo=555) 0.44 K/ L 0.24-0.36 EOSINOPHILS ABSOLUTE COUNT (BEAKER) (test 0.10 K/ L 0.04-0.36 hnoc=410) BASOPHILS ABSOLUTE COUNT (BEAKER) (test fqjf=636) 0.04 K/ L 0.01-0.08 IMMATURE GRANULOCYTES-RELATIVE PERCENT (BEAKER) 0 % 0-1 (test bkdw=0764) ALPHA FETOPROTEIN (AFP), TUMOR [id number] 16:14:00 Test Item Value Reference Range Comments ALPHA-FETOPROTEIN (BEAKER) (test zvrp=9166) 5.7 ng/mL <10.0 Effective 07/17/2014: Reference Range ChangeNew: <10.0 Previous: 0.0- [id number] 15:57:00 Test Item Value Reference Range Comments MAGNESIUM (BEAKER) (test paug=972) 1.9 mg/dL 1.6-2.6 BASIC METABOLIC [id number] 15:57:00 Test Item Value Reference Range Comments SODIUM (BEAKER) (test 139 meq/L 136-145 tiuy=007) POTASSIUM (BEAKER) (test 4.5 meq/L 3.5-5.1 rpsp=407) CHLORIDE (BEAKER) (test 105 meq/L 98-107 stos=946) CO2 (BEAKER) (test 25 meq/L 22-29 xyps=191) BLOOD UREA NITROGEN 15 mg/dL 7-21 (BEAKER) (test hcuy=269) CREATININE (BEAKER) (test 0.95 mg/dL 0.57-1.25 nftj=679) GLUCOSE RANDOM (BEAKER) 86 mg/dL 70-105 (test iihl=978) CALCIUM (BEAKER) (test 9.4 mg/dL 8.4-10.2 wxta=106) EGFR (BEAKER) (test 56 mL/min/1.73 sq m ESTIMATED GFR IS NOT boba=7859) ACCURATE CREATININE CLEARANCE IN PREDICTING GLOMERULAR FILTRATION RATE. ESTIMATED GFR IS NOT APPLICABLE FOR DIALYSIS PATIENTS. Specimen slightly ictericHEPATIC FUNCTION [id number] 15:57:00 Test Item Value Reference Range Comments TOTAL PROTEIN (BEAKER) (test axcg=293) 7.6 gm/dL 6.0-8.3 ALBUMIN (BEAKER) (test pexl=4737) 3.2 g/dL 3.5-5.0 BILIRUBIN TOTAL (BEAKER) (test zvyd=997) 1.8 mg/dL 0.2-1.2 BILIRUBIN DIRECT (BEAKER) (test gvyd=914) 0.8 mg/dL 0.1-0.5 ALKALINE PHOSPHATASE (BEAKER) (test fseg=413) 112 U/L 40-150 AST (SGOT) (BEAKER) (test rlen=369) 33 U/L 5-34 ALT (SGPT) (BEAKER) (test ehwg=358) 17 U/L 6-55 Specimen slightly ictericPROTHROMBIN [id number] 15:56:00 Test Item Value Reference Range Comments PROTIME (BEAKER) (test haya=408) 16.7 seconds 11.7-14.7 INR (BEAKER) (test kpco=307) 1.4 <=5.9 RECOMMENDED COUMADIN/WARFARIN INR THERAPY RANGESSTANDARD DOSE: 2.0 - 3.0 Includes: PROPHYLAXIS forvenous thrombosis, systemic embolization; TREATMENT for venous thrombosis and/or pulmonary embolus.HIGH RISK: Target INR is 2.5-3.5 for patients with mechanical heart valves.CBC W/PLT COUNT & AUTO [id number] 15:56:00 Test Item Value Reference Range Comments WHITE BLOOD CELL COUNT (BEAKER) (test sjsi=140) 5.3 K/ L 4.0-10.0 RED BLOOD CELL COUNT (BEAKER) (test skxz=544) 4.21 M/ L 4.00-5.00 HEMOGLOBIN (BEAKER) (test snde=159) 14.1 GM/DL 12.0-15.0 HEMATOCRIT (BEAKER) (test nnkw=454) 41.7 % 36.0-45.0 MEAN CORPUSCULAR VOLUME (BEAKER) (test wrkm=492) 99.1 fL 82.0-99.0 MEAN CORPUSCULAR HEMOGLOBIN (BEAKER) (test 33.4 pg 27.0-33.0 dwzr=836) MEAN CORPUSCULAR HEMOGLOBIN CONC (BEAKER) (test 33.7 GM/DL 32.0-36.0 ajat=991) RED CELL DISTRIBUTION WIDTH (BEAKER) (test 13.2 % 10.3-14.2 yjpc=964) PLATELET COUNT (BEAKER) (test bugp=562) 77 K/CU MM 150-430 MEAN PLATELET VOLUME (BEAKER) (test yjcp=648) 8.4 fL 6.5-10.5 NUCLEATED RED BLOOD CELLS (BEAKER) (test 0 /100 WBC 0-0 bufo=678) NEUTROPHILS RELATIVE PERCENT (BEAKER) (test 54 % kolw=501) LYMPHOCYTES RELATIVE PERCENT (BEAKER) (test 33 % vmgk=749) MONOCYTES RELATIVE PERCENT (BEAKER) (test 10 % dbqs=367) EOSINOPHILS RELATIVE PERCENT (BEAKER) (test 3 % znpx=933) BASOPHILS RELATIVE PERCENT (BEAKER) (test 0 % fxio=764) NEUTROPHILS ABSOLUTE COUNT (BEAKER) (test 2.86 K/ L 1.80-8.00 pcsh=256) LYMPHOCYTES ABSOLUTE COUNT (BEAKER) (test 1.77 K/ L 1.48-4.50 hpbm=683) MONOCYTES ABSOLUTE COUNT (BEAKER) (test molx=443) 0.56 K/ L 0.00-1.30 EOSINOPHILS ABSOLUTE COUNT (BEAKER) (test 0.13 K/ L 0.00-0.50 xazd=153) BASOPHILS ABSOLUTE COUNT (BEAKER) (test dtem=946) 0.02 K/ L 0.00-0.20 [id number] 11:05:00 Test Item Value Reference Range Comments POC-CREATININE (BEAKER) 0.9 mg/dL 0.6-1.3 TESTED AT [facility] [address] [facility] (test ogew=9717) [facility] [address] POC-EGFR (BEAKER) (test 59 mL/min/1.73M2 lchb=2180)
--- OUTSIDE RECORDS SUMMARY | 2018-12-19 12:56 | XMS REPORT ---
:1930 Author Organization [employer] Care Team Providers Name Role Phone Belkis Luuad Provider Role Unavailable Allergies, Adverse Reactions, Alerts Substance Reaction Event Type Adhesive Tape rash Drug Allergy Morphine Sulfate Info Not Available Drug Allergy Encounters Encounter Location Date Unknown [facility] Aug 12, 2015 Problems Problem Type [...] End Status Dosage Date Date Propranolol HCl [facility] 56477-23 20 mg Orally Active 1 tablet 73-00 daily Gabapentin [facility] 60652-97 300 MG Orally Active 1 capsule 39-19 twice a day (bid) B-12 [facility] 06175-60 2500 MCG Active Unknown 92-72 Sublingual Ocuvite [facility] 37295-66 Orally daily Active 1 tablet 87-60 Lasix [facility] 08335-09 40 MG Orally Active 1 tablet 60-13 Once a day Ciprofloxacin [facility] 17589-29 500 MG/5ML (10%) Active 5 ml 93-01 Orally Twice a day [facility] 27898-91 25 MG Orally Active 1 tablet 03-11 daily Caltrate 600+D [facility] 04160-47 600-400 MG-UNIT Active 1 tablet 86-00 Orally [...]
[2018-12-19] MEDS ORDERED: ONDANSETRON 4 MG/2 ML VIAL ONE (13:44)
--- NOTE | 2018-12-19 14:03 | RAD REPORT ---
EXAM DESCRIPTION: RAD - Chest Single View - 12/19/2018 1:50 pm CLINICAL HISTORY: Abdominal pain, abdominal distention COMPARISON: December 08, 2018 TECHNIQUE: AP portable chest image was obtained 1337 hours . FINDINGS: Lung volumes are low. Chronic interstitial lung disease is present not substantially diffe rent from comparison. No focal infiltrate, suspicious mass or acute failure finding. Small granuloma noted right lung field. Heart and vasculature are normal. No measurable pleural effusion and no pneum othorax. No acute bony abnormality seen. Aortic arch is prominent, accentuated by slight rotation and shallow inspiration. IMPRESSION: Chronic interstitial lung disease not substantially different from comparison.
[2018-12-19 14:18] LABS: Absolute Lymphocytes (CBC) 0.7 K/uL (0.7-4.9); Absolute Monocytes 0.6 K/uL (0.1-1.3); Absolute Neutrophil 2.9 K/uL (1.8-8.0); Basophils % 0.8 % (0-1.3); Eosinophils % 2.6 % (0-4.4); Hematocrit 32.6 % (36.0-45.0); Lymphocytes % 16.7 % (15.3-44.8); MPV 8.7 fL (7.6-11.3); Monocytes % 13.5 % (3.3-12.3); RBC Red Blood Cell Count 3.49 M/uL (3.86-4.86)
[2018-12-19 14:23] LABS: Protime INR 1.17
[2018-12-19 14:44] LABS: ALT/SGPT 19 U/L (12-78); AST/SGOT 33 U/L (15-37); Alkaline Phosphatase 101 U/L (45-117); BUN Blood Urea Nitrogen 25 mg/dL (7-18); Bicarbonate 34 mmol/L (21-32); Bilirubin Direct 0.3 mg/dL (0-0.2); Bilirubin Total 0.9 mg/dL (0.2-1.0); Glucose Level 126 mg/dL (74-106); Lipase 361 U/L (73-393); Magnesium 2.4 mg/dL (1.8-2.4); NT PRO-BNP 200 pg/mL (<450); Protein, Total 7.5 g/dL (6.4-8.2); Sodium Level 137 mmol/L (136-145); Troponin (Emerg Dept Use Only) < 0.02 ng/mL (0.0-0.045)
[2018-12-19 14:51] LABS: Potassium 2.6 mmol/L (3.5-5.1)
[2018-12-19] MEDS ORDERED: POTASSIUM 25 MEQ EFFERV TAB ONE (15:32)
--- NOTE | 2018-12-19 15:53 | ER ---
Nurse's Notes [facility] Name: Whitney Villalta Age: 88 yrs Sex: Female : 1930 Arrival Date: 12/19/2018 Time: 12:43 Bed 3 Private MD: Fareed Ballesteros H Diagnosis: TENSE ASCITES;HYPOKALEMIA Presentation: 12/19 12:56 Presenting complaint: Patient states: "I am here for fluid build up". Pt c/o thelma leg aa5 swelling and abd swelling. Transition of care: patient was not received from another setting of care. Onset of symptoms was December 19, 2018. Risk Assessment: Do you want to hurt yourself or someone else? Patient reports no desire to harm self or others. Care prior to arrival: None. 12:56 Method Of Arrival: Wheelchair aa5 12:56 Acuity: KELLY 2 aa5 13:05 Initial Sepsis Screen: Does the patient meet any 2 criteria? No. Patient's initial hj sepsis screen is negative. Does the patient have a suspected source of infection? No. Patient's initial sepsis screen is negative. Triage Assessment: 13:05 General: Appears in no apparent distress. uncomfortable, Behavior is calm, cooperative, hj appropriate for age. 13:06 Pain:. hj Historical: - Allergies: 12:59 adhesive tapes; aa5 12:59 Morphine; aa5 - PMHx: 12:59 colon cancer; Liver disease; Lower extremity edema; Pneumonia; stage 3 cirrhosis; aa5 - Immunization history:: Adult Immunizations unknown. - Ebola Screening: : No symptoms or risks identified at this time. - Social history:: Smoking status: unknown Patient/guardian denies using alcohol. - Family history:: not pertinent. - Hospitalizations: : No recent hospitalization is reported. Screenin:05 Abuse screen: Denies threats or abuse. Has been threatened or abused. Nutritional hj screening: No deficits noted. Tuberculosis screening: No symptoms or risk factors identified. Fall Risk None identified. Assessment: 12:56 General: Appears in no apparent distress. uncomfortable, Behavior is calm, cooperative, hj appropriate for age. Pain: Denies pain. Neuro: Level of Consciousness is awake, alert, obeys commands, Oriented to person, place, time, situation, Appropriate for age. Cardiovascular: Capillary refill < 3 seconds Patient's skin is warm and dry. Respiratory: Reports shortness of breath labored breathing. GI: Abdomen is distended, noted to have ascites. : No signs and/or symptoms were reported regarding the genitourinary system. EENT: No signs and/or symptoms were reported regarding the EENT system. Derm: No signs and/or symptoms reported regarding the dermatologic system. Musculoskeletal: No signs and/or symptoms reported regarding the musculoskeletal system. 13:30 Reassessment: Patient and/or family updated on plan of care and expected duration. Pain hj level reassessed. Patient is alert, oriented x 3, equal unlabored respirations, skin warm/dry/pink. awaiting results and POC:. 14:30 Reassessment: Patient and/or family updated on plan of care and expected duration. Pain hj level reassessed. Patient is alert, oriented x 3, equal unlabored respirations, skin warm/dry/pink. awaiting room placment;. 15:30 Reassessment: Patient and/or family updated on plan of care and expected duration. Pain hj level reassessed. Patient is alert, oriented x 3, equal unlabored respirations, skin warm/dry/pink. medicated;. 16:03 Reassessment: Patient and/or family updated on plan of care and expected duration. Pain hj level reassessed. Patient is alert, oriented x 3, equal unlabored respirations, skin warm/dry/pink. Patient denies pain at this time. to room 422;. Vital Signs: 12:59 BP 94 / 70; Pulse 88; Resp 20 S; Temp 97.8(TE); Pulse Ox 98% on R/A; aa5 14:53 BP 97 / 58; Pulse 79; Resp 18; Pulse Ox 95% on R/A; hj 15:45 BP 101 / 63; Pulse 80; Resp 18; Pulse Ox 100% on 2 lpm NC; hj 16:01 BP 101 / 58; Pulse 83; Resp 18; Pulse Ox 100% on 2 lpm NC; hj ED Course: 12:43 Patient arrived in ED. ag5 12:44 Fareed Ballesteros DO is Private Physician. ag5 12:45 Inserted saline lock: 22 gauge in right forearm, using aseptic technique. Blood hj collected. 12:56 Arm band placed on. aa5 12:58 Triage completed. aa5 13:04 Rajiv Mendoza, RN is Primary Nurse. hj 13:06 Patient has correct armband on for positive identification. Placed in gown. Bed in low hj position. Call light in reach. Side rails up X 1. Adult w/ patient. 13:10 Michael Brunson MD is Attending Physician. wa 13:26 EKG done, by aerial survey technician. reviewed by Michael Brunson MD. at1 13:30 Initial lab(s) drawn, by me, sent to lab. hj 13:51 XRAY CXR (1 view) In Process Unspecified. EDMS 14:56 Notified ED physician of a critical lab result(s). potassium=2.6. iw 15:51 Eladio Rios MD is Hospitalizing Provider. wa 16:17 No provider procedures requiring assistance completed. Patient admitted, IV remains in hj place. intact. Administered Medications: 13:45 Drug: Zofran 2 mg Route: IVP; Site: right forearm; hj 13:45 Follow up: Response: No adverse reaction; Nausea is decreased hj 15:18 Drug: Potassium Effervescent Tablet 50 mEq Route: PO; hj 16:05 Follow up: Response: No adverse reaction hj Outcome: 15:51 Decision to Hospitalize by Provider. wa 16:17 Admitted to Tele accompanied by tech, family with patient, via wheelchair, room 422, hj with oxygen, Report called to KULDIP Perry 16:17 Condition: stable 16:17 Instructed on the need for admit, Demonstrated understanding of instructions. 16:21 Patient left the ED. Signatures: Dispatcher [employer] EDMS Yue Solares RN RN Nga Keene RN RN aa5 Paulette uV, funeral home associate EKG Tat1 Rajiv Mendoza, RN RN Michael Brunson MD MD wa Gaskin, Ajare ag5 Corrections: (The following items were deleted from the chart) 12:58 12:56 Acuity: KELLY 3 aa5 aa5 15:02 14:53 Pulse 79bpm; Resp 18bpm; Pulse Ox 95% RA; hj hj 16:04 12:45 Initial lab(s) drawn, by me, sent to lab. [facility]
--- NOTE | 2018-12-19 15:53 | EDPHYS ---
Physician Documentation [facility] Name: Whitney Villalta Age: 88 yrs Sex: Female : 1930 Arrival Date: 12/19/2018 Time: 12:43 Bed 3 Private MD: Fareed Ballesteros H ED Physician Michael Brunson HPI: 12/19 15:57 This 88 yrs old Female presents to ER via Wheelchair with complaints of FLUID wa BUILD UP. 15:57 The patient presents with abdominal distention that is diffuse. Onset: The wa symptoms/episode began/occurred 1 week(s) ago. The symptoms do not radiate. Associated signs and symptoms: none. The symptoms are described as denies pain. c/o fluid build up. h/o cirrhosis. Modifying factors: The symptoms are alleviated by nothing, the symptoms are aggravated by nothing. Severity of pain: in the emergency department the pain no pain. The patient has experienced similar episodes in the past. The patient has been recently seen by a physician: had paracentesis less than 3 weeks ago. per pt and son, recent paracentesis but built up again. PMD is Dr. Ballesteros. Historical: - Allergies: 12:59 adhesive tapes; aa5 12:59 Morphine; aa5 - PMHx: 12:59 colon cancer; Liver disease; Lower extremity edema; Pneumonia; stage 3 cirrhosis; aa5 - Immunization history:: Adult Immunizations unknown. - Ebola Screening: : No symptoms or risks identified at this time. - Social history:: Smoking status: unknown Patient/guardian denies using alcohol. - Family history:: not pertinent. - Hospitalizations: : No recent hospitalization is reported. ROS: 15:59 Constitutional: Negative for fever, chills, and weight loss, Eyes: Negative for injury, wa pain, redness, and discharge, ENT: Negative for injury, pain, and discharge, Neck: Negative for injury, pain, and swelling, Cardiovascular: Negative for chest pain, palpitations, and edema, Respiratory: Negative for shortness of breath, cough, wheezing, and pleuritic chest pain, Back: Negative for injury and pain, : Negative for injury, bleeding, discharge, and swelling, MS/Extremity: Negative for injury and deformity, Skin: Negative for injury, rash, and discoloration, Neuro: Negative for headache, weakness, numbness, tingling, and seizure. 15:59 Abdomen/GI: Positive for abdominal distension, Negative for abdominal pain, nausea and vomiting, diarrhea, constipation, abdominal cramps, hematemesis, black/tarry stool, rectal pain, rectal bleeding. 15:59 All other systems are negative. Exam: 16:00 Constitutional: This is a well developed, well nourished patient who is awake, alert, wa and in no acute distress. Head/Face: Normocephalic, atraumatic. Eyes: Pupils equal round and reactive to light, extra-ocular motions intact. Lids and lashes normal. Conjunctiva and sclera are non-icteric and not injected. Cornea within normal limits. Periorbital areas with no swelling, redness, or edema. ENT: Nares patent. No nasal discharge, no septal abnormalities noted. Tympanic membranes are normal and external auditory canals are clear. Oropharynx with no redness, swelling, or masses, exudates, or evidence of obstruction, uvula midline. Mucous membranes moist. Neck: Trachea midline, no thyromegaly or masses palpated, and no cervical lymphadenopathy. Supple, full range of motion without nuchal rigidity, or vertebral point tenderness. No Meningismus. Chest/axilla: Normal chest wall appearance and motion. Nontender with no deformity. No lesions are appreciated. Cardiovascular: Regular rate and rhythm with a normal S1 and S2. No gallops, murmurs, or rubs. Normal PMI, no JVD. No pulse deficits. Respiratory: Lungs have equal breath sounds bilaterally, clear to auscultation and percussion. No rales, rhonchi or wheezes noted. No increased work of breathing, no retractions or nasal flaring. Back: No spinal tenderness. No costovertebral tenderness. Full range of motion. Skin: Warm, dry with normal turgor. Normal color with no rashes, no lesions, and no evidence of cellulitis. MS/ Extremity: Pulses equal, no cyanosis. Neurovascular intact. Full, normal range of motion. Neuro: Awake and alert, GCS 15, oriented to person, place, time, and situation. Cranial nerves II-XII grossly intact. Motor strength 5/5 in all extremities. Sensory grossly intact. Cerebellar exam normal. Normal gait. Psych: Awake, alert, with orientation to person, place and time. Behavior, mood, and affect are within normal limits. 16:00 Abdomen/GI: Inspection: distension, that is moderate, Bowel sounds: normal, Palpation: abdomen is soft and non-tender, in all quadrants. Vital Signs: 12:59 BP 94 / 70; Pulse 88; Resp 20 S; Temp 97.8(TE); Pulse Ox 98% on R/A; aa5 14:53 BP 97 / 58; Pulse 79; Resp 18; Pulse Ox 95% on R/A; hj 15:45 BP 101 / 63; Pulse 80; Resp 18; Pulse Ox 100% on 2 lpm NC; hj 16:01 BP 101 / 58; Pulse 83; Resp 18; Pulse Ox 100% on 2 lpm NC; hj MDM: 13:10 Patient medically screened. wa 16:01 Differential diagnosis: ascites secondary to 3rd spacing. denies pain. no AMS. will wa check labs and admit for further eval and fluid drainage. Data reviewed: vital signs, nurses notes, lab test result(s), radiologic studies. Test interpretation: by ED physician or midlevel provider: CXR: chronic interstitial disease. no acute process. labs: noted for hypokalemia at 2.2. decreased GFR low platelets, albumin, and H/H consistent with cirrhosis of liver. Response to treatment: There is no appreciated change of the patient's symptoms at this time. Physician consultation: Eladio Rios MD. 12/19 13:22 Order name: BMP; Complete Time: 15:15 12/19 13:22 Order name: CBC with Diff; Complete Time: 14:12/19 13:22 Order name: Hepatic Function; Complete Time: 15:16 12/19 13:22 Order name: Lipase; Complete Time: 15:16 12/19 13:22 Order name: Magnesium; Complete Time: 15:16 12/19 13:22 Order name: NT PRO-BNP; Complete Time: 15:16 12/19 13:22 Order name: XRAY CXR (1 view); Complete Time: 14:12/19 13:22 Order name: PT-INR; Complete Time: 15:16 12/19 13:22 Order name: Ptt, Activated; Complete Time: 15:17 12/19 13:22 Order name: Troponin (emerg Dept Use Only); Complete Time: 15:17 ms 12/19 13:22 Order name: EKG; Complete Time: 13:24 ms 12/19 13:22 Order name: AMMONIA; Complete Time: 15:15 ms 12/19 13:22 Order name: Cardiac monitoring; Complete Time: 13: ms 12/19 13:22 Order name: EKG - Nurse/Tech; Complete Time: 13: ms 12/19 13:22 Order name: IV Saline Lock; Complete Time: 13: ms 12/19 13:22 Order name: Labs collected and sent; Complete Time: : ms 12/19 13:22 Order name: O2 Per Protocol; Complete Time: : ms 12/19 13: Order name: O2 Sat Monitoring; Complete Time: : ms Administered Medications: 13:45 Drug: Zofran 2 mg Route: IVP; Site: right forearm; 13:45 Follow up: Response: No adverse reaction; Nausea is decreased 15:18 Drug: Potassium Effervescent Tablet 50 mEq Route: PO; hj 16:05 Follow up: Response: No adverse reaction Disposition: 12/19/18 15:51 Hospitalization ordered by Eladio Rios for Inpatient Admission. Preliminary diagnosis are TENSE ASCITES, HYPOKALEMIA. - Bed requested for Telemetry/MedSurg (Inpatient). - Status is Inpatient Admission. hj - Condition is Stable. - Problem is an acute exacerbation. - Symptoms are unchanged. UTI on Admission? No Signatures: Dispatcher [employer] EDMS Josefina Nunez Audri, RN RN aa Rajiv Mendoza RN RN Michael Brunson MD MD ms Corrections: (The following items were deleted from the chart) 15:52 15:51 Hospitalization Ordered by Eladio Rios MD for Inpatient Admission. Preliminary bd diagnosis is TENSE ASCITES; HYPOKALEMIA. Bed requested for Telemetry/MedSurg (Inpatient). Status is Inpatient Admission. Condition is Stable. Problem is an acute exacerbation. Symptoms are unchanged. UTI on Admission? No. ms 16:21 15:52 12/19/2018 15:51 Hospitalization Ordered by Eladio Rios MD for Inpatient hj Admission. Preliminary diagnosis is TENSE ASCITES; HYPOKALEMIA. Bed requested for Telemetry/MedSurg (Inpatient). Status is Inpatient Admission. Condition is Stable. Problem is an acute exacerbation. Symptoms are unchanged. UTI on Admission? No. bd
[2018-12-19] MEDS ORDERED: ONDANSETRON 4 MG/2 ML VIAL IV PRN (16:35)
[2018-12-19 16:57] VITALS: BMI 21.6
[2018-12-19] MEDS ORDERED: HOME MED 1 EA UNK (Omeprazole [Prilosec] 40 MG) PO SCH (20:30)
[2018-12-19] MEDS ORDERED: RIFAXIMIN 200 MG PO SCH (21:00)
[2018-12-19] MEDS: MIDODRINE HCL 5 MG TABLET PO SCH (22:42)
[2018-12-19] MEDS: DOCUSATE NA 100 MG CAP PO SCH (22:43)
[2018-12-19] MEDS: GABAPENTIN 300 MG CAP PO SCH (22:43)
[2018-12-19] MEDS: PANTOPRAZOLE 40MG TABLET PO SCH (22:45)
[2018-12-19] MEDS: LACTULOSE 20 GM/30 ML UCUP PO SCH (22:46)
[2018-12-19] MEDS: JUVEN PACKET PO SCH (22:46)
--- NOTE | 2018-12-20 03:15 | HP ---
Date of Admission: 12/19/2018 Code Status: Full. Primary Care Physician: Fareed Ballesteros DO. Chief Complaint: Worsening ascites. History Of Present Illness: The patient is an 88-year-old female with past medical history of hepati tis C with liver cirrhosis, who was recently in the hospital on 12/09/[address] Sequeira. The patient was tapped and approximately 11 L were taken out. The patient had remained hypotensive and she required albumin. The patient has reported increased abdominal girth along with edema of her lower extremities, shortness of breath, and hypotension. The patient was seen by her home health nu rse today and due to her worsening symptoms Dr. Sequeira was contacted by the home health who recommended evaluation in the ER. The patient's symptoms are constant, moderate, and progressively worsening. Her vital signs were in the 80s systolic. When the patient was seen in the ER, she was awake, alert, oriented, in some mild distress. Past Medical History: Liver cirrhosis, hepatitis C, colon cancer. Surgical History: Multiple taps, back surgery, knee surgery, cholecystectomy, tonsillectomy, hystere ctomy. Allergies: TO ADHESIVE TAPE AND MORPHINE. Medications: List reviewed. Family History: Father had heart disease. Mother lived to the age of 99. Social History: Never smoked or drank. The patient is exposed to hepatitis C. Lives at home, [facility] bed-bound. Does require assistance with her activities of daily living. Has home health. Zuhair painter is also a caregiver. Review of Systems: An 11-point system reviewed, negative except as per HPI. Physical Examination: Vital Signs: Blood pressure 95/70, pulse 88, respirations 20, temperature 97.8, O2 98% on room air. General: Awake, alert, oriented x3. Elderly female, ill appearing. HEENT: Normocephalic, atraumatic. PERRLA. EOMI. Moist mucous membranes. Oropharynx is clear. Co njunctivae anicteric. Neck: Supple. JVD distended. CV: S1, S2. Regular rate and rhythm. Peripheral pulses weak bilater ally. Respiratory: Diminished breath sounds. No wheezing or stridor. No use of accessory muscles. Gastrointestinal: Abdomen is distended. Ascites is present with positive fluid wave. Nontender. P ositive bowel sounds. Extremities: No clubbing or cyanosis. The patient has diffuse peripheral edema of the lower extremi ties. No calf tenderness. Neuro: Cranial nerves 2 through 12 intact grossly. No focal neurological deficits. Speech is deepthi l. Skin: No rashes. Normal skin turgor. Psych: Mood is okay. Affect is full. Insight and judgment are fair. Laboratory Data: Sodium 137, potassium 2.6, chloride 96, CO2 34, BUN 25, creatinine 1.42, glucose 12 6, calcium 8.6, magnesium 2.4, total bilirubin 0.9, AST 33, ALT 19, ammonia 40, alkaline phosphatase 101. Troponin less than 0.02. BNP 200, albumin 2. Lipase 361. INR is 1.17. WBC 4.3, H and H 11.1 and 32.6, platelets 122, neutrophils 66%. Chest x-ray personally reviewed shows chronic interstitia l lung disease, not substantially different from comparison. Assessment And Plan: An 88-year-old female with 1.Acute on chronic ascites secondary to hepatitis C and liver cirrhosis. The patient has been sched uled for thoracentesis in a.m. The patient will likely need albumin infusion as well post paracentes is. I have ordered cell count, culture, albumin and protein count for the ascites fluid to rule out SBP. 2.Hepatitis C, chronic without coma, with cirrhosis. 3.Hypotension. 4.Hypokalemia. We will replace and monitor. 5.Acute kidney injury. Creatinine is above baseline at 1.42, was normal on discharge approximately 12 days ago. 6.Hyperglycemia. 7.Deep vein thrombosis prophylaxis. Sequential compression devices. No chemical anticoagulation du e to procedure in a.m. Plan: Admit the patient to Med-Surg, place as inpatient with remote cardiac telemetry. Length Of Stay: Greater than 2 midnights. BRIANNA Voice ID: [id number]
[2018-12-20 06:38] LABS: Absolute Lymphocytes (CBC) 1.2 K/uL (0.7-4.9); Absolute Monocytes 0.5 K/uL (0.1-1.3); Absolute Neutrophil 2.4 K/uL (1.8-8.0); Basophils % 0.6 % (0-1.3); Eosinophils % 3.7 % (0-4.4); Hematocrit 30.1 % (36.0-45.0); Lymphocytes % 27.5 % (15.3-44.8); MPV 8.6 fL (7.6-11.3); Monocytes % 11.1 % (3.3-12.3)
[2018-12-20 06:43] LABS: Albumin 1.8 g/dL (3.4-5.0); Magnesium 2.3 mg/dL (1.8-2.4); Potassium 3.1 mmol/L (3.5-5.1); Protein, Total 6.7 g/dL (6.4-8.2)
[2018-12-20] MEDS: MIDODRINE HCL 5 MG TABLET PO SCH ×2 (09:00→21:38)
[2018-12-20] MEDS: GABAPENTIN 300 MG CAP PO SCH ×3 (09:00→21:38)
[2018-12-20] MEDS: FUROSEMIDE 20 MG TABLET PO SCH ×2 (09:00→14:55)
[2018-12-20] MEDS: LACTULOSE 20 GM/30 ML UCUP PO SCH ×3 (09:00→21:37)
[2018-12-20] MEDS: JUVEN PACKET PO SCH ×2 (09:00→21:38)
[2018-12-20] MEDS: Rifaximin 550 MG Tab PO SCH ×3 (09:00→21:38)
--- NOTE | 2018-12-20 09:38 | RAD REPORT ---
EXAM DESCRIPTION: US - Paracentesis Proc Guidance - 12/20/2018 8:39 am CLINICAL HISTORY: tense ascites, Hep C Ascites COMPARISON: Paracentesis Proc Guidance dated 12/08/2018 FINDINGS: Informed consent was obtained and time-out was performed. Patient's abdomen was prepped and draped in the usual sterile fashion. 1% lidocaine was used for loca l anesthetic purposes. A small skin incision was made. A paracentesis catheter was guided into the peroneal cavity under son ographic guidance. A small amount of fluid was sent for requested lab studies. A large volume paracentesis was performed . The patient tolerated the procedure well. Patient was administered IV albumin per protocol following the procedure. IMPRESSION: Successful ultrasound-guided paracentesis.
[2018-12-20] MEDS ORDERED: ALBUMIN HUMAN 25% 200 ML IV ONE (11:00)
[2018-12-20 11:17] LABS: Body Fluid WBC 182 /mm^3
[2018-12-20 11:35] LABS: Appearance CLEAR (CLEAR); Body Fluid Source PERITONEAL; Color of fluid Yellow (COLORLESS)
[2018-12-20] MEDS ORDERED: ALBUMIN HUMAN 25% 100 ML IV ONE (12:00)
--- NOTE | 2018-12-20 14:00 | P.PN ---
Subjective Date of Service: 12/20/18 Chief Complaint: Ascites Subjective: Improving Patient seen and examined at bedside. NO family at bedside. Chart reviewed and case discussed with nursing staff and Dr. Dunn. Patient is s/p paracentesis. States she feels worn out, tired and weak. Denies any nausea. vomiting, sob, cp, abdominal pain. Afebrile overnight. Vital signs are stbale, though BP on lower end. Review of Systems 10-point ROS is otherwise unremarkable Physical Examination - Vital Signs Temperature: 98.4 F Blood Pressure: 83/46 Pulse: 77 Respirations: 16 Pulse Ox (%): 100 - Physical Exam General: Alert, In no apparent distress, Cachectic, Other (weak, sick appearing) HEENT: Atraumatic, PERRLA, EOMI Neck: Supple, JVD not distended Respiratory: Clear to auscultation bilaterally, Normal air movement Cardiovascular: Regular rate/rhythm, Normal S1 S2 Gastrointestinal: Normal bowel sounds, No tenderness, No masses, No rebound, No guarding Musculoskeletal: No tenderness Integumentary: No rashes Neurological: Normal speech, Normal tone, Normal affect Lymphatics: No axilla or inguinal lymphadenopathy - Studies Laboratory Data (last 24 hrs) 12/19/18 13:35: PT 13.7 H, INR 1.17, APTT 31.1 12/19/18 13:35: WBC 4.3, Hgb 11.1 L, Hct 32.6 L, Plt Count 122 L 12/19/18 13:35: Sodium 137, Potassium 2.6 L*, BUN 25 H, Creatinine 1.42 H, Glucose 126 H, Magnesium 2.4, Total Bilirubin 0.9, AST 33, ALT 19, Alkaline Phosphatase 101, Lipase 361 Assessment And Plan - Plan An 88-year-old female with Acute on chronic ascites secondary to hepatitis C and liver cirrhosis. She is s /p paracentesis today. 7 L pulled off. She is pending her albumin infusion today. The patient cell count, culture, albumin and protein count for the ascites fluid to rule out SBP, pending. No evidence of infection at this time. Hepatitis C, chronic without coma, with cirrhosis. Hypotension. Asymtpomatic Hypokalemia. We will replace and monitor. Acute kidney injury. Creatinine is now back to baseline. Hyperglycemia. Deep vein thrombosis prophylaxis. Sequential compression devices. Encpourage ambulation. Will restart chemical anticoagulation if pt still requiring hospitalization. Plan: Continue to monitor overnight. Patient to work with PT. Likely discharge home in the next 24-48 hrs.
[2018-12-20] MEDS: PANTOPRAZOLE 40MG TABLET PO SCH (21:38)
[2018-12-20] MEDS: DOCUSATE NA 100 MG CAP PO SCH (21:38)
[2018-12-21] MEDS: MIDODRINE HCL 5 MG TABLET PO SCH ×2 (09:00→21:00)
[2018-12-21] MEDS: Rifaximin 550 MG Tab PO SCH ×2 (09:00→21:00)
[2018-12-21] MEDS: JUVEN PACKET PO SCH ×2 (09:00→21:00)
[2018-12-21] MEDS: LACTULOSE 20 GM/30 ML UCUP PO SCH ×2 (10:43→21:00)
[2018-12-21] MEDS: GABAPENTIN 300 MG CAP PO SCH ×2 (10:43→13:08)
--- NOTE | 2018-12-21 12:13 | RAD REPORT ---
EXAM DESCRIPTION: CT - Head Brain Wo Cont - 12/21/2018 12:04 pm CLINICAL HISTORY: Alteration of awareness/confusion COMPARISON: None TECHNIQUE: Computed axial tomography of the head was obtained. IV contrast was not requested. All CT scans are performed using dose optimization technique as appropriate and may include automated exposure control or mA/KV adjustment according to patient size. FINDINGS: An intracranial bleed is not seen . The ventricles are normal in caliber. No extra-axial fluid collection is noted. Mild low-density areas within periventricular, deep and sub cortical white matter likely represent ischemic changes secondary to small vessel disease. Fluid within the sinuses/ mastoids is not seen. IMPRESSION: No acute intracranial abnormality is seen. If patient's symptoms persist MRI of the bra in would be recommended.
--- NOTE | 2018-12-21 12:31 | P.PN ---
Subjective Date of Service: 12/21/18 Chief Complaint: Ascites Patient seen and examined at bedside. NO family at bedside. Chart reviewed and case discussed with nursing staff and Dr. Dunn. Patient is s/p paracentesis. States she feels worn out, tired and weak. Denies any nausea. vomiting, sob, cp, abdominal pain. Afebrile overnight. Vital signs are stbale, though BP on lower end. Review of Systems 10-point ROS is otherwise unremarkable Physical Examination - Vital Signs Temperature: 98.8 F Blood Pressure: 84/47 Pulse: 80 Respirations: 16 Pulse Ox (%): 95 - Physical Exam General: In no apparent distress, Oriented x3, Confused Neck: Supple, JVD not distended Respiratory: Clear to auscultation bilaterally, Normal air movement Gastrointestinal: Normal bowel sounds, Non-distended, No tenderness Musculoskeletal: No tenderness Integumentary: No rashes Assessment And Plan - Plan An 88-year-old female with Acute on chronic ascites secondary to hepatitis C and liver cirrhosis. She is s /p paracentesis, 7 L pulled off. She did receive albumin infusion . The patient cell count, culture, albumin and protein count for the ascites fluid to rule out SBP, pending. No evidence of infection at this time. Hepatitis C, chronic without coma, with cirrhosis. Hypotension. Asymtpomatic Hypokalemia. We will replace and monitor. Acute kidney injury. Creatinine is now back to baseline. Hyperglycemia. Confusion Patient more drowsy, though alert oriented x3. Could be related to paracentesis. Will continue to monitor. CT scan of the head negative for any acute abnormalities. Deep vein thrombosis prophylaxis. Sequential compression devices. Encpourage ambulation. Will restart chemical anticoagulation if pt still requiring hospitalization. Plan: Continue to monitor overnight. Patient to work with PT. Likely discharge home in the next 24-48 hrs.
[2018-12-21] MEDS: Ringers Lactate 1,000 ML IV SCH (12:35)
[2018-12-21 16:44] LABS: Absolute Lymphocytes (CBC) 1.8 K/uL (0.7-4.9); Absolute Monocytes 0.7 K/uL (0.1-1.3); Absolute Neutrophil 3.8 K/uL (1.8-8.0); Basophils % 1.4 % (0-1.3); Eosinophils % 2.6 % (0-4.4); Hematocrit 30.5 % (36.0-45.0); MPV 9.1 fL (7.6-11.3); Monocytes % 10.3 % (3.3-12.3); RBC Red Blood Cell Count 3.35 M/uL (3.86-4.86)
--- NOTE | 2018-12-21 16:44 | RAD REPORT ---
EXAM DESCRIPTION: RAD - Chest Single View - 12/21/2018 4:38 pm CLINICAL HISTORY: Shortness of breath, code stroke chest film COMPARISON: December 19 TECHNIQUE: AP portable chest image was obtained 1637 hour . FINDINGS: Lung volumes are very low. Right hemidiaphragm elevation is accentuated compared to prior imaging. Chronic interstitial lung pattern is accentuated by the low lung volumes. A peripheral mass or consolidation is not identified. A significant failure or volume overload pattern not seen. Heart and vasculature are normal. No measurable pleural effusion and no pneumothorax. No acute bony abnormality seen. No acute aortic findings suspected. IMPRESSION: Chronic interstitial lung disease accentuated by shallow inspiration. No acute finding suspected.
[2018-12-21] MEDS ORDERED: LORazepam 2 MG/ML VIAL IV ONE (16:48)
[2018-12-21 17:03] LABS: Potassium 3.4 mmol/L (3.5-5.1)
[2018-12-21] MEDS: CEFTRIAXONE/SWI 1gm 1 GM/10 ML SYR IVP SCH (18:22)
--- NOTE | 2018-12-21 18:31 | RAD REPORT ---
EXAM DESCRIPTION: MRI - Brain W/Wo Cont - 12/21/2018 6:24 pm CLINICAL HISTORY: Transient alteration of awareness, possible CVA COMPARISON: CT head December 21 TECHNIQUE: Sagittal and axial T1-weighted images were obtained. Axial PD/heavily T2-weighted and T2- FLAIR images were obtained along with axial DWI/ADC mapping sequences. Coronal heavily T2 weighted s equence obtained. Axial and coronal post-contrast T1-weighted images were also obtained. A ml Multi blu contrast following utilized. FINDINGS: No intracranial hemorrhage, mass or acute infarction. There is no edema or shift of midli ne structures. No extra-axial fluid collections. Rene-matter/white matter junction is preserved. Sig nal voids are seen as a normal finding in the major intracranial vessels. Mild to moderate atrophy ch anges are present. Ventricles are in proportion. Mild to moderate chronic ischemic change throughout the cerebral white matter sparing the brainstem and basal ganglia. Post-contrast images show normal enhancement. No dural thickening. Mastoid air cells and paranasal sinuses are clear. IMPRESSION: No acute infarction. No hemorrhage, mass or acute intracranial finding. Mild to moderate atrophy and chronic ischemic change. Ventricles are in proportion.
--- NOTE | 2018-12-21 18:34 | RAD REPORT ---
EXAM DESCRIPTION: MRI - MRA Head Wo Cont - 12/21/2018 6:24 pm CLINICAL HISTORY: CVA COMPARISON: CT head same date TECHNIQUE: Axial and coronal 3D [id number] image acquisition was performed. 3D rotational images were generated with source and reconstruction images reviewed. Horizontal and vertical axis rotation al views generated using MIP protocol. FINDINGS: Major venous sinuses are patent. No aneurysm or vascular malformation. Motion degrades the examination. No basilar stenosis. Distal internal carotid artery show no significant luminal narrowi ng. No dissection suspected. Mild atherosclerotic changes are identifiable in the peripheral branches of the middle and posterior cerebral arteries. More prominent atherosclerotic changes involve anteri or and mid branches of the left middle cerebral artery. No significant anterior cerebral artery ather osclerotic change. IMPRESSION: No aneurysm or vascular malformation. No significant stenosis of the basilar or distal internal carotid artery's. Significant atherosclerotic change in the peripheral branches left middle cerebral artery distributio n with more mild atherosclerotic change in the bilateral posterior cerebral and right middle cerebral artery distributions.
--- NOTE | 2018-12-21 18:36 | RAD REPORT ---
EXAM DESCRIPTION: MRI - MRA Neck W/Wo Cont - 12/21/2018 6:24 pm CLINICAL HISTORY: CVA COMPARISON: CT head same date TECHNIQUE: Axial and coronal 3D [id number] image acquisition was performed. 3D rotational images were generated with source and reconstruction images reviewed. Horizontal and vertical axis rotation al views generated using MIP protocol. FINDINGS: Aortic arch is 3 vessel. No origin stenosis. Proximal last ligature is tortuous and there is motion degradation that limits accurate assessment. Misregistration artifacts are present. Distal common carotid artery show normal diameter. Left carotid bulb and left ICA show no significant findin g. Right carotid bulb is limited in assessment due to motion and misregistration artifact. Distally t he right ICA shows no significant finding. No significant vertebral artery abnormality. IMPRESSION: No dissection or significant stenosis in the cervical vasculature. Patient motion and misregistration artifacts limit proximal common carotid assessment and right carot id bulb assessment.
[2018-12-21 18:58] LABS: Blood Morphology Comment NOT SEEN (NOT SEEN); Platelet Estimate DECR; Urine White Blood Cell Casts OK
[2018-12-21] MEDS: PANTOPRAZOLE 40MG TABLET PO SCH (20:30)
[2018-12-21] MEDS ORDERED: HYDROCORTISONE SUC 100 MG INJ IV ONE (20:33)
[2018-12-21] MEDS: DOCUSATE NA 100 MG CAP PO SCH (21:00)
[2018-12-21] MEDS ORDERED: NA CHLORIDE 0.9% 250 ML IV ONE (22:19)
[2018-12-21] MEDS ORDERED: ALBUMIN HUMAN 25% 100 ML IV ONE (22:19)
[2018-12-21] MEDS ORDERED: ALBUMIN HUMAN 25% 50 ML IV ONE (23:02)
[2018-12-21 23:34] LABS: Urine Appearance CLEAR; Urine Bilirubin NEGATIVE (NEG); Urine Blood NEGATIVE (NEG); Urine Color YELLOW; Urine Glucose NEGATIVE (NEG); Urine Protein NEGATIVE (NEG); Urine Specific Gravity 1.015 (1.005-1.030); Urine Urobilinogen 0.2 mg/dL (0.2-1.0)
[2018-12-21 23:38] LABS: Urine Microscopic Reflex NO UMIC
[2018-12-22] MEDS: Ringers Lactate 1,000 ML IV SCH ×2 (04:56→14:40)
[2018-12-22] MEDS ORDERED: ALBUMIN HUMAN 25% 100 ML IV ONE (07:59)
[2018-12-22] MEDS ORDERED: NA CHLORIDE 0.9% 250 ML IV ONE (07:59)
[2018-12-22] MEDS: CEFTRIAXONE/SWI 1gm 1 GM/10 ML SYR IVP SCH (08:07)
--- NOTE | 2018-12-22 08:10 | P.PN ---
Date of Service: 12/22/18 SUBJECTIVE: Patient remains lethargic through the evening. Status post Ativan 1 mg IV push so MRI could be obtained to rule out a stroke. Patient also has worsening uremia. She has a metabolic alkalosis and she may need ABGs to see if she has hypercapnia to see if the alkalosis is compensatory or if this is from intravascularly depleted and contraction alkalosis. GI has seen the patient and spoke to them regarding tips procedure because of elevated portal pressure and refractory ascites. Patient with severe hypoalbuminemia as well. We will need to notify GI as well as get a Nephrology consultation. Concern for hepatorenal syndrome type 2. Patient is exhibiting some dystonia. This is probably related to her uremia. Continue to hydrate gently and see if we can get patient to improve. As the Ativan gets her system, which may take a while because of her liver disease, hopefully her mentation improves. Had a long talk with her daughter as well. OBJECTIVE: Vital Signs: reviewed General: lethargic, opens eyes to voice and moves her extremities, answers simple questions CV: RRR w/ no murmur Lungs: Clear bilaterally Abd: Soft NT/distended-mildly BS + Ext: No C/C/E Neuro: increased tonicity in the upper and lower extremities with dystonic reactions ASSESSMENT: 1. altered mental status 2. history of end-stage liver disease 3. Status post paracentesis -large volume 4. Hepatorenal syndrome type 2 5. Uremia 6. history of hepatitis C cirrhosis PLAN: 1. Continue to hydrate and replete albumin 2. GI and nephrology consultation 3. monitor uremia 4. May need to check ABG to make sure patient is not hypercapnic as she has developed a metabolic alkalosis 5. I think her altered mental status is related to a metabolic condition as she has dystonic reactions this is normally seen in the setting of electrolyte abnormalities such as uremia 6. if family is wanting aggressive measures may need to transfer to her stave grader in [place], Dr. [phone] 7. GI and DVT prophylaxis
[2018-12-22] MEDS: Rifaximin 550 MG Tab PO SCH ×2 (10:59→21:00)
[2018-12-22] MEDS: LACTULOSE 20 GM/30 ML UCUP PO SCH ×2 (10:59→22:02)
[2018-12-22] MEDS: JUVEN PACKET PO SCH ×2 (11:00→21:00)
[2018-12-22] MEDS: MIDODRINE HCL 5 MG TABLET PO SCH ×3 (11:00→22:42)
[2018-12-22 11:52] LABS: Absolute Lymphocytes (CBC) 0.7 K/uL (0.7-4.9); Absolute Monocytes 0.2 K/uL (0.1-1.3); Absolute Neutrophil 3.3 K/uL (1.8-8.0); Basophils % 0.6 % (0-1.3); Eosinophils % 0.1 % (0-4.4); Hematocrit 32.7 % (36.0-45.0); Lymphocytes % 16.1 % (15.3-44.8); MPV 9.1 fL (7.6-11.3); Monocytes % 4.4 % (3.3-12.3); RBC Red Blood Cell Count 3.52 M/uL (3.86-4.86)
[2018-12-22 12:11] LABS: Albumin 2.7 g/dL (3.4-5.0); Bilirubin Total 0.9 mg/dL (0.2-1.0); Magnesium 2.4 mg/dL (1.8-2.4); Phosphorus 2.9 mg/dL (2.5-4.9); Potassium 3.9 mmol/L (3.5-5.1); Protein, Total 6.9 g/dL (6.4-8.2)
--- NOTE | 2018-12-22 13:09 | P.PN ---
Subjective Date of Service: 12/22/18 Chief Complaint: Ascites Patient seen and examined at bedside. NO family at bedside. Chart reviewed and case discussed with nursing staff and Dr. Dunn. Patient is s/p paracentesis. States she feels worn out, tired and weak. Code stroke called on patient on 12/21/18 for altered mentation and confusion. MRI/MRA negative for acute stroke. She continued to remain lethargic through the evening. She was given 1 mg ativan prior to MRI yesterday. This morning, patient continues to be confused and drowsy. She does open her eyes intermittently to verbal stimulation. Review of Systems 10-point ROS is otherwise unremarkable Physical Examination - Vital Signs Temperature: 97.7 F Blood Pressure: 95/50 Pulse: 73 Respirations: 14 Pulse Ox (%): 100 - Physical Exam General: Confused Respiratory: Clear to auscultation bilaterally, Normal air movement Cardiovascular: Regular rate/rhythm, Normal S1 S2 Neurological: Abnormal tone Assessment And Plan - Plan An 88-year-old female with Altered mental status hepatorenal syndrome, type 2 uremia Toxic encephalopathy Continue gentle hydration Nephrology consulted Will need to discuss goal of care with daughter in regard to treatment. If family wants aggressive treatment, will consider transfer for hepatology workup. Will check ABG to make sure patient is not hypercapnic Acute on chronic ascites secondary to hepatitis C and liver cirrhosis. s/p large volume paracentesis She is s/p paracentesis, 7 L pulled off. She did receive albumin infusion . The patient cell count, culture, albumin and protein count for the ascites fluid to rule out SBP, pending. Hepatitis C, chronic without coma, with cirrhosis. Hypotension. Hypokalemia. Acute kidney injury. Creatinine continues to improve; Hyperglycemia. Deep vein thrombosis prophylaxis. Sequential compression devices. Encpourage ambulation. Will restart chemical anticoagulation if pt still requiring hospitalization. Plan: pending goals of care discussion with daughter.
[2018-12-22] MEDS ORDERED: KCL 20 MEQ/100 mL IVPB 20 MEQ/100 ML BAG IV SCH (17:00)
[2018-12-22] MEDS: PANTOPRAZOLE 40MG TABLET PO SCH ×2 (20:30→22:04)
--- NOTE | 2018-12-22 21:33 | CON ---
Date of Consultation: 12/22/2018 Additional Consulting Physician: Dr. Aleman. Reason For Consultation: Acute kidney injury, anasarca, hypertension, fluid management. History Of Present Illness: This is a pleasant unfortunate 88-year-old female. All the information was obtained from the record and from the family as the patient altered mental status. The patient h ad significant past medical history of hep C complicated with liver cirrhosis secondary to blood alvarez sfusion, chronic kidney disease, baseline creatinine 1 with GFR 50 to 55, hypertension, cirrhosis sec ondary to hep C with recurrent ascites. The patient was in her regular state of health, came to the hospital for paracentesis. After paracentesis, start to be in altered mental status. For that reaso n, patient admitted. Primary workup showed elevation in BUN and creatinine, creatinine 1.4, and for that reason, we have been consulted. The patient had 7 L paracentesis. Repeated lab after fluid exp ansion, creatinine started trending down to 1.2. Past Medical History: Include, 1.Hip C .. 2.Liver cirrhosis .. 3.Chronic kidney disease, stage II. Home Medications: Include Lasix, gabapentin, Aldactone, lactulose. Allergic: Allergy to adhesive and morphine. Family History: Positive for hypertension. Social History: Denies smoking. Denies drinking. Denies drugs abuse. Lives with the family. Review of Systems: Not obtainable. Physical Examination: Vital Signs: When I saw the patient, blood pressure of 95/50, pulse of 73. Chest: Clear to auscultation. Heart: S1, S2. Systolic murmur. Abdomen: Ascites. Extremity: No edema. Laboratory Data: H and H 11.4/32.7, platelet of 99, eosinophil of 0. Sodium on admission is 138, po tassium 3.4, bicarb 33, BUN 36, creatinine 1.2, calcium 8.3. Urinalysis, negative for infection. Assessment And Plan: 1.Acute kidney injury secondary to compartment and chronic kidney disease secondary to hepatorenal, continue to recover. I am going to go ahead and continue albumin for the time being. Discontinue IV fluid and we will monitor the patient closely. The patient overall poor prognosis. 2.Hypertension, currently hypotension. I am going to start the patient on midodrine and to help wit h component of hepatorenal and we will follow up the patient .. 3.Hepatic encephalopathy as by primary. 4.Hypokalemia, continue supplement. ANDREA/GLYNN Voice ID: [id number] Report ID: [id number]
[2018-12-22] MEDS: DOCUSATE NA 100 MG CAP PO SCH (22:03)
[2018-12-23] MEDS ORDERED: HYDROCORTISONE SUC 100 MG INJ IV ONE (03:18)
[2018-12-23] MEDS ORDERED: NA CHLORIDE 0.9% 250 ML IV ONE (03:18)
[2018-12-23] MEDS ORDERED: ALBUMIN HUMAN 25% 100 ML IV ONE (03:41)
[2018-12-23] MEDS: MIDODRINE HCL 5 MG TABLET PO SCH ×3 (09:00→22:42)
[2018-12-23] MEDS: Rifaximin 550 MG Tab PO SCH ×2 (09:00→21:00)
[2018-12-23] MEDS: CEFTRIAXONE/SWI 1gm 1 GM/10 ML SYR IVP SCH (09:27)
[2018-12-23] MEDS: JUVEN PACKET PO SCH ×2 (09:28→21:00)
[2018-12-23] MEDS: LACTULOSE 20 GM/30 ML UCUP PO SCH ×2 (09:28→22:41)
--- NOTE | 2018-12-23 13:06 | P.PN ---
Subjective Date of Service: 12/23/18 Chief Complaint: Ascites Subjective: Worsening Pt with hx of advanced cirrhosis lethargic , ammonia WNl, on ABx cultures -ve so far Cr improving hypotensive today Cont albumin will increase midodrine dose abd distended pt with advanced cirrhosis, not candidate for transplant or TIPS , poor prognosis , discussed with daughter Physical Examination - Vital Signs Temperature: 98.3 F Blood Pressure: 92/52 Pulse: 82 Respirations: 16 Pulse Ox (%): 94 - Physical Exam General: Other (lethargic ) HEENT: Atraumatic Neck: Supple, Without JVD or thyroid abnormality Respiratory: Clear to auscultation bilaterally, Normal air movement Cardiovascular: No edema, Regular rate/rhythm, Normal S1 S2, No rubs Gastrointestinal: Distended Musculoskeletal: Other (Le tenderness ) Assessment And Plan - Plan Acute kidney injury likely compartment improved after paracentecis renal dose meds lower side BP due to advanced cirrhosis +/- sepsis cont midodrine + albumin advanced cirrhosis not candidate for transplant or TIPS AMS ammonia wnl Brain MRI -ve due to sepsis? vs advanced liver disease on Abx poor prognosis
--- NOTE | 2018-12-23 14:40 | P.PN ---
Subjective Date of Service: 12/23/18 Chief Complaint: Ascites Subjective: No new changes Patient seen and examined at bedside. NO family at bedside. Chart reviewed and case discussed with nursing staff and Dr. Dunn. Patient is s/p paracentesis. Code stroke called on patient on 12/21/18 for altered mentation and confusion. MRI/MRA negative for acute stroke. She continued to remain lethargic through the evening. She was given 1 mg ativan prior to MRI yesterday. This morning, patient more awake, though still confused and not oriented. Per daughter, all night, patient was moaning and seemed to be in pain. Review of Systems 10-point ROS is otherwise unremarkable Physical Examination - Vital Signs Temperature: 98.3 F Blood Pressure: 92/52 Pulse: 82 Respirations: 16 Pulse Ox (%): 94 - Physical Exam General: Mild distress, Confused Respiratory: Clear to auscultation bilaterally, Normal air movement Cardiovascular: Regular rate/rhythm, Normal S1 S2 Gastrointestinal: Distended, Ascites, Tenderness Assessment And Plan - Plan An 88-year-old female with Altered mental status hepatorenal syndrome, type 2 uremia Toxic encephalopathy Continue gentle hydration Nephrology consulted, recommendations appreciated. Discussed with daughter extensively, regarding goals of care. Labs stable today, Hypertensive otherwise stable. No evidence of infection, no acidosis noted today; contineus to recieve lactulose, rifampin. Continues to have bowel movement. Creatinine improved as of today. Acute on chronic ascites secondary to hepatitis C and liver cirrhosis. s/p large volume paracentesis She is s/p paracentesis, 7 L pulled off. She did receive albumin infusion . The patient cell count, culture, albumin and protein count for the ascites fluid to rule out SBP, no growth/evidence of infection Hepatitis C, chronic without coma, with cirrhosis. Hypotension. Hypokalemia. Acute kidney injury. Creatinine continues to improve; Hyperglycemia. Deep vein thrombosis prophylaxis. Sequential compression devices. Encpourage ambulation. Will restart chemical anticoagulation if pt still requiring hospitalization. Plan: Extensively discussed hospice/palliative care with comfort weekly paracentesis. Daughter stated that she will discuss with her family. In the meanwhile, continue with gentle hydration and monitor labs. Overall, poor prognosis as pt with quickly returning ascites. She is not a good candidate for surgery or TIPS procedure either.
[2018-12-23 17:59] LABS: Protime INR 1.3
[2018-12-23 18:10] LABS: Albumin 2.8 g/dL (3.4-5.0); Bilirubin Direct 0.3 mg/dL (0-0.2); Bilirubin Total 0.8 mg/dL (0.2-1.0); Protein, Total 6.6 g/dL (6.4-8.2)
[2018-12-23] MEDS: PIPER/TAZO/NS 3.375gm 3.375 GM/100 ML BAG IVPB SCH (18:52)
[2018-12-23] MEDS: PANTOPRAZOLE 40MG TABLET PO SCH (22:42)
[2018-12-23] MEDS: DOCUSATE NA 100 MG CAP PO SCH (22:42)
[2018-12-23] MEDS: GABAPENTIN 300 MG CAP PO SCH (22:43)
[2018-12-24] MEDS: PIPER/TAZO/NS 3.375gm 3.375 GM/100 ML BAG IVPB SCH ×3 (02:36→16:00)
[2018-12-24 06:03] LABS: Absolute Lymphocytes (CBC) 0.3 K/uL (0.7-4.9); Absolute Monocytes 0.3 K/uL (0.1-1.3); Basophils % 0.2 % (0-1.3); Eosinophils % 3.5 % (0-4.4); Hematocrit 28.3 % (36.0-45.0); Lymphocytes % 8.2 % (15.3-44.8); MPV 8.6 fL (7.6-11.3); Monocytes % 7.5 % (3.3-12.3); RBC Red Blood Cell Count 3.02 M/uL (3.86-4.86)
[2018-12-24 06:27] LABS: Albumin 2.5 g/dL (3.4-5.0); Bilirubin Total 1.1 mg/dL (0.2-1.0); Magnesium 2.4 mg/dL (1.8-2.4); Phosphorus 1.7 mg/dL (2.5-4.9); Potassium 3.1 mmol/L (3.5-5.1)
[2018-12-24] MEDS: LACTULOSE 20 GM/30 ML UCUP PO SCH ×4 (09:38→22:29)
[2018-12-24] MEDS: GABAPENTIN 300 MG CAP PO SCH (09:39)
[2018-12-24] MEDS: JUVEN PACKET PO SCH ×2 (09:39→21:00)
[2018-12-24] MEDS: MIDODRINE HCL 5 MG TABLET PO SCH ×2 (09:39→22:28)
[2018-12-24] MEDS: Rifaximin 550 MG Tab PO SCH ×2 (09:39→22:29)
[2018-12-24] MEDS ORDERED: SODIUM PHOSPHATE 10 MM in NA CHLORIDE 0.9% 250 ML IV SCH (10:00)
[2018-12-24] MEDS: ENSURE HIGH PROTEIN 237 ML CAN PO SCH ×3 (10:00→16:04)
[2018-12-24] MEDS ORDERED: POTASSIUM CL 40 MEQ in NA CHLORIDE 0.9% 500 ML IV SCH ×4 (11:00)
[2018-12-24] MEDS ORDERED: POTASSIUM PHOS IN 0.9 % NACL 15 MMOL/250 ML BAG IV SCH (12:00)
--- NOTE | 2018-12-24 13:05 | P.PN ---
Subjective Date of Service: 12/24/18 Chief Complaint: Ascites Subjective: Improving Patient seen and examined at bedside. Family at bedside. Chart reviewed and case discussed with nursing staff and Dr. Dunn. Patient is s/p paracentesis. Code stroke called on patient on 12/21/18 for altered mentation and confusion. MRI/MRA negative for acute stroke. Patient much more awake and alert this morning. Family reports improvement overnight as well. Review of Systems 10-point ROS is otherwise unremarkable Physical Examination - Vital Signs Temperature: 97.7 F Blood Pressure: 92/59 Pulse: 88 Respirations: 17 Pulse Ox (%): 93 - Physical Exam General: Alert, Oriented x3 (Though does intermittently have confusion.) Neck: Supple, JVD not distended Respiratory: Clear to auscultation bilaterally, Normal air movement Cardiovascular: Regular rate/rhythm, Normal S1 S2 Gastrointestinal: Distended, Tenderness Assessment And Plan - Plan An 88-year-old female with Altered mental status hepatorenal syndrome, type 2 uremia Toxic encephalopathy Improved as this morning, continue monitoring. Continue gentle hydration Nephrology consulted, recommendations appreciated. Labs stable today, Hypertensive otherwise stable. No evidence of infection, no acidosis noted today; contineus to recieve lactulose, rifampin. Continues to have bowel movement. Creatinine improved as of today. Acute on chronic ascites secondary to hepatitis C and liver cirrhosis. s/p large volume paracentesis She is s/p paracentesis, 7 L pulled off. She did receive albumin infusion . The patient cell count, culture, albumin and protein count for the ascites fluid to rule out SBP, no growth/evidence of infection Hepatitis C, chronic without coma, with cirrhosis. Hypotension. Hypokalemia. Acute kidney injury. Creatinine continues to improve; Hyperglycemia. Deep vein thrombosis prophylaxis. Sequential compression devices. Encpourage ambulation. Will restart chemical anticoagulation if pt still requiring hospitalization. Plan: Continue monitoring. Improving mentation at this time. Overall, poor prognosis as pt with quickly returning ascites. She is not a good candidate for surgery or TIPS procedure either.
--- NOTE | 2018-12-24 15:41 | PN ---
Date of Progress Note: 12/24/2018 Subjective: The patient was admitted with acute kidney injury secondary to compartment after thorace ntesis recover, altered mental status. The patient completely back to her baseline currently. Physical Examination: Vital Signs: Blood pressure 99/57, pulse of 79. Chest: Clear to auscultation. Heart: S1 and S2. Systolic murmur. Abdomen: Ascites. Extremities: Plus edema. Laboratory Data: WBC 3.7, H and H 9.6/28.3, platelet 85. Sodium 139, potassium 3.1, bicarb 31, BUN 38, creatinine 1, calcium 8.2, phosphorus 1.7. Current Medications: The patient on its include Zosyn, Xifaxan, midodrine 10 t.i.d., Lasix, lactulos e, and pantoprazole. Assessment And Plan: 1.Acute kidney injury secondary to compartment, recovered and resolved. Back to baseline. 2.Hypokalemia and hypophosphatemia. We will supplement. 3.Cirrhosis with ascites. I going to resume the Lasix for the time being. We will consider adding spironolactone. 4.Hypertension, currently hypotension. We will continue midodrine. I am going to decrease it to be b.i.d. We will utilize the blood pressure for diuresis to establish better volume control. 5.Hepatic encephalopathy, on recovery. Follow up with the primary. J LUIS Voice ID: [id number] Report ID: [id number]
[2018-12-24] MEDS ORDERED: NA CHLORIDE 0.9% 250 ML IV ONE (21:45)
[2018-12-24] MEDS ORDERED: ALBUMIN HUMAN 25% 100 ML IV ONE (21:55)
[2018-12-24] MEDS: PANTOPRAZOLE 40MG TABLET PO SCH (22:28)
[2018-12-24] MEDS: DOCUSATE NA 100 MG CAP PO SCH (22:29)
[2018-12-25] MEDS: GABAPENTIN 300 MG CAP PO SCH ×2 (01:14→08:30)
[2018-12-25] MEDS: LACTULOSE 20 GM/30 ML UCUP PO SCH ×2 (08:28→20:58)
[2018-12-25] MEDS: MIDODRINE HCL 5 MG TABLET PO SCH ×2 (08:30→20:56)
[2018-12-25] MEDS: FUROSEMIDE 40 MG TABLET PO SCH (08:30)
[2018-12-25] MEDS: Rifaximin 550 MG Tab PO SCH ×2 (08:31→20:57)
[2018-12-25] MEDS: ENSURE HIGH PROTEIN 237 ML CAN PO SCH ×3 (08:31→17:01)
[2018-12-25] MEDS: JUVEN PACKET PO SCH ×2 (08:31→21:00)
--- NOTE | 2018-12-25 15:47 | P.PN ---
Subjective Date of Service: 12/25/18 Chief Complaint: Ascites Subjective: Improving Patient seen and examined at bedside. Family at bedside. Chart reviewed and case discussed with nursing staff and Dr. Dunn. Patient is s/p paracentesis. Code stroke called on patient on 12/21/18 for altered mentation and confusion. MRI/MRA negative for acute stroke. Patient much more awake and alert this morning. Family reports improvement overnight as well. Review of Systems 10-point ROS is otherwise unremarkable Physical Examination - Vital Signs Temperature: 97.9 F Blood Pressure: 106/56 Pulse: 89 Respirations: 20 Pulse Ox (%): 95 - Physical Exam General: Alert, In no apparent distress, Oriented x3 Respiratory: Clear to auscultation bilaterally, Normal air movement Cardiovascular: Regular rate/rhythm, Normal S1 S2 Gastrointestinal: Distended, Tenderness Assessment And Plan - Plan An 88-year-old female with Altered mental status hepatorenal syndrome, type 2 uremia Toxic encephalopathy Improved as this morning, continue monitoring. Nephrology consulted, recommendations appreciated. Labs stable today, Hypertensive otherwise stable. No evidence of infection, no acidosis noted today; contineus to recieve lactulose, rifampin. Continues to have bowel movement. Creatinine improved as of today. Physical therapy consulted today Acute on chronic ascites secondary to hepatitis C and liver cirrhosis. s/p large volume paracentesis She is s/p paracentesis, 7 L pulled off. She did receive albumin infusion . The patient cell count, culture, albumin and protein count for the ascites fluid to rule out SBP, no growth/evidence of infection Hepatitis C, chronic without coma, with cirrhosis. Hypotension. Hypokalemia. Acute kidney injury. Creatinine continues to improve; Hyperglycemia. Deep vein thrombosis prophylaxis. Sequential compression devices. Plan: Continue monitoring. Improving mentation at this time. Overall, poor prognosis as pt with quickly returning ascites. She is not a good candidate for surgery or TIPS procedure either.
[2018-12-25] MEDS: PIPER/TAZO/NS 3.375gm 3.375 GM/100 ML BAG IVPB SCH (17:00)
[2018-12-25] MEDS: MUPIROCIN 2% OINT 22GM TUBE TOP SCH (20:56)
[2018-12-25] MEDS: DOCUSATE NA 100 MG CAP PO SCH (20:58)
[2018-12-25] MEDS: PANTOPRAZOLE 40MG TABLET PO SCH (20:58)
--- NOTE | 2018-12-25 21:15 | PN ---
Date of Progress Note: 12/25/2018 Subjective: The patient significantly has been improved, completely awake. Unfortunately, received another dose of Neurontin yesterday night because of the leg pain. Physical Examination: Vital Signs: Blood pressure 95/50, pulse of 79, afebrile. General: The patient was started on Lasix yesterday, started swelling to subside. Chest: Decreased entry, bilateral base. Heart: S1, S2. Systolic murmur. Abdomen: Positive for ascites. Extremity: Plus edema. Neuro: Alert and oriented. No focal. No significant tremor. Laboratory Data: WBC 3.7, H and H 9.6/28.3, platelet of 85. Sodium 139, potassium 3.1, bicarb 31, B UN 38, creatinine down to 1. GFR of 52. Calcium 8.2, phosphorus 1.7. Current Medications: The patient on its include; Zosyn, Xifaxan, midodrine 10 mg b.i.d., albumin, La six 40 daily, lactulose, Zofran. Again, Neurontin has been discontinued by the hospitalist. Assessment And Plan: 1.Acute kidney injury secondary to compartment syndrome secondary to the ascites, recovered, resolve d, back to baseline. Still on the wet side. We will continue current dose of Lasix. 2.Hypokalemia, hypophosphatemia, status post supplement. We will follow up the lab tomorrow. 3.Cirrhosis. Follow up with Primary. 4.Altered mental status, hepatic encephalopathy, recover. We will follow up. The patient cleared from the renal standpoint for discharge planning. J LUIS Voice ID: [id number] Report ID: [id number]
[2018-12-26] MEDS: PIPER/TAZO/NS 3.375gm 3.375 GM/100 ML BAG IVPB SCH ×3 (01:00→17:00)
[2018-12-26 04:59] LABS: Albumin 2.4 g/dL (3.4-5.0); Magnesium 2.2 mg/dL (1.8-2.4); Phosphorus 2.3 mg/dL (2.5-4.9); Potassium 3.3 mmol/L (3.5-5.1)
[2018-12-26] MEDS: ENSURE HIGH PROTEIN 237 ML CAN PO SCH (07:30)
[2018-12-26] MEDS: JUVEN PACKET PO SCH ×2 (09:00→21:00)
[2018-12-26] MEDS: LACTULOSE 20 GM/30 ML UCUP PO SCH ×2 (09:48→21:26)
[2018-12-26] MEDS: MIDODRINE HCL 5 MG TABLET PO SCH ×2 (09:48→21:26)
[2018-12-26] MEDS: FUROSEMIDE 40 MG TABLET PO SCH (09:49)
--- NOTE | 2018-12-26 12:28 | RAD REPORT ---
EXAM DESCRIPTION: RAD - Chest Single View - 12/26/2018 12:19 pm CLINICAL HISTORY: Shortness of breath, suspected fluid overload COMPARISON: December 17 TECHNIQUE: AP portable chest image was obtained or 1215 hours . FINDINGS: Lung volumes are low. No focal consolidation or mass. Patient has chronic interstitial julio c g disease. No vascular engorgement. Interstitial pattern is not substantially different from the prio r study. A potential very early interstitial edema or infiltrate could be masked. There is no signifi cant failure or volume overload. Heart size is normal. No measurable pleural effusion and no pneumoth orax. No acute bony abnormality seen. No acute aortic findings suspected. IMPRESSION: Chronic interstitial lung disease is present potentially masking a very early edema or i nfiltrate process. No peripheral mass or consolidation. No significant failure or volume overload present.
[2018-12-26] MEDS: Rifaximin 550 MG Tab PO SCH ×2 (13:08→21:00)
[2018-12-26] MEDS: GABAPENTIN 300 MG CAP PO SCH ×2 (13:08→21:26)
--- NOTE | 2018-12-26 15:27 | P.PN ---
Subjective Date of Service: 12/26/18 Chief Complaint: Ascites Subjective: Tolerating diet, Improving, Working w/ PT Patient seen and examined at bedside. Family at bedside. Chart reviewed and case discussed with nursing staff and Dr. Dunn. Patient is s/p paracentesis Patient awake, alert and oriented this morning. Tolerating a diet. Complaining of bilateral lower extremity pain, due to her neuropathy. Review of Systems 10-point ROS is otherwise unremarkable Physical Examination - Vital Signs Temperature: 97.9 F Blood Pressure: 168/94 Pulse: 73 Respirations: 19 Pulse Ox (%): 96 - Physical Exam General: Alert, In no apparent distress, Oriented x3 HEENT: Atraumatic, PERRLA, EOMI Neck: Supple, JVD not distended Respiratory: Clear to auscultation bilaterally, Normal air movement Cardiovascular: Regular rate/rhythm, Normal S1 S2 Gastrointestinal: Normal bowel sounds, Distended, Ascites, Tenderness Musculoskeletal: No tenderness Integumentary: No rashes Neurological: Normal speech, Normal tone, Normal affect Lymphatics: No axilla or inguinal lymphadenopathy Assessment And Plan - Plan This is an 88-year-old female with Hep C, liver cirrhosis s/p paracentesis, complicated by AMS, hepatic encephalopathy,and hypovolemia now with mentation back to baseline. Altered mental status hepatorenal syndrome, type 2 uremia Toxic encephalopathy Improved as this morning, continue monitoring. Nephrology consulted, recommendations appreciated. MRI/MRA negative for acute CVA Labs stable today, Hypotensive otherwise stable. No evidence of infection, no acidosis noted, continues to receive lactulose and rifampin. Continues to have bowel movements. Creatinine improved. Physical therapy consulted today Acute on chronic ascites secondary to hepatitis C and liver cirrhosis. s/p large volume paracentesis She is s/p paracentesis, 7 L pulled off (12/20/18). She did receive albumin infusion . The patient cell count, culture, albumin and protein count for the ascites fluid with no growth/evidence of infection. Continues to have abdominal distention and progressively worsening ascites. GI on board. Recommends another IR guided paracentesis today, but to draw off no more than 4 L. She will receive albumin immediately post paracentesis. Hepatitis C, chronic without coma, with cirrhosis. Hypotension. Hypokalemia. Acute kidney injury. Creatinine continues to improve; Hyperglycemia. Deep vein thrombosis prophylaxis. Sequential compression devices. Plan: Continue monitoring. Mentation back to baseline. Overall, poor prognosis as pt with quickly returning ascites. She is not a good candidate for surgery or TIPS procedure either. I have started discussion regarding hospice vs palliative care with scheduled paracentesis for symptomatic relief. Family has not made a decision yet and wanted to hear from Gastroenterology first. Patient now working with PT, SW consulted for discharge planning (inpatient rehab vs SNF)
[2018-12-26] MEDS ORDERED: ALBUMIN HUMAN 25% 100 ML IV ONE (16:00)
[2018-12-26] MEDS: MUPIROCIN 2% OINT 22GM TUBE TOP SCH ×2 (18:37→21:00)
[2018-12-26] MEDS: PANTOPRAZOLE 40MG TABLET PO SCH (21:25)
[2018-12-26] MEDS: DOCUSATE NA 100 MG CAP PO SCH (21:26)
[2018-12-26] MEDS: ENSURE ENLIVE 237 ML CAN PO SCH (21:27)
[2018-12-27] MEDS: PIPER/TAZO/NS 3.375gm 3.375 GM/100 ML BAG IVPB SCH ×4 (01:00→16:08)
--- NOTE | 2018-12-27 03:38 | PN ---
Date of Progress Note: 12/26/2018 Chief Complaint: Hepatorenal syndrome, acute kidney injury secondary to accelerated hepatorenal syndrome. Subjective: The patient has nonoliguric urine output. The patient underwent paracentesis for tense ascites. The patient has borderline hypotension and she will require midodrine for blood pressure support. The patient is receiving Lasix to obtain negative fluid balance and prevent tense ascites. The patient developed hepatic encephalopathy and was started on treatment with lactulose. Review of Systems: The patient is feeling better. Denies fever, chills. Physical Examination: Lungs: Few crackles at bases. Heart: S1, S2. Abdomen: Soft, benign. Extremities: Slight edema. Lab Work: BUN 38, creatinine 1, calcium 8.2, phosphorus 1.7. Hemoglobin 9.6, WBC 3.5. Impression And Plan: 1. Acute kidney injury secondary to hepatorenal syndrome with tense ascites. Renal function is improving to baseline. Continue current dose of Lasix to control fluid balance. 2. Ascites, secondary to liver cirrhosis. The patient may need paracentesis. 3. Altered mental status. Continue treatment for hepatic encephalopathy. Mental status is improving. 4. Fluid overload. Continue low-sodium diet. 5. Hypotension. Continue midodrine. EB/MODL Voice ID: [id number] Report ID: [id number] MTDD
[2018-12-27 05:12] LABS: Albumin 2.2 g/dL (3.4-5.0); Magnesium 2.2 mg/dL (1.8-2.4); Phosphorus 2.4 mg/dL (2.5-4.9)
[2018-12-27] MEDS: ENSURE ENLIVE 237 ML CAN PO SCH ×3 (08:44→21:00)
[2018-12-27] MEDS: LACTULOSE 20 GM/30 ML UCUP PO SCH ×4 (08:44→22:00)
[2018-12-27] MEDS: JUVEN PACKET PO SCH ×2 (08:44→21:00)
[2018-12-27] MEDS ORDERED: ALBUMIN HUMAN 25% 100 ML IV ONE (10:00)
--- NOTE | 2018-12-27 10:08 | RAD REPORT ---
EXAM DESCRIPTION: US - Paracentesis Proc Guidance - 12/27/2018 9:29 am CLINICAL HISTORY: Ascites COMPARISON: None. TECHNIQUE: The patient presents for ultrasound-guided paracentesis. The procedure, risks and altern atives were discussed with the patient in detail. Oral and written consent were obtained. Time out p rocedure was performed. The patient had no contraindicated allergy or medication history. PT, INR va lues within acceptable limits. Preliminary sonographic evaluation identified right lower quadrant access site. The skin and deeper tissues were anesthetized with 1 percent lidocaine. Under direct sonographic visualization, a parace ntesis catheter was advanced into the peritoneal cavity. Approximately 4 liters of ascites removed. At the conclusion of the procedure, catheter was withdrawn and a bandage placed at the puncture site. Postprocedure care and precaution instructions were given to the patient. Patient was transferred [facility] to the floor for albumin infusion as ordered by Primary Service. IMPRESSION: Ultrasound-guided paracentesis as detailed. There were 4 liters of ascites removed.
[2018-12-27] MEDS: GABAPENTIN 300 MG CAP PO SCH ×3 (10:10→22:03)
[2018-12-27] MEDS: FUROSEMIDE 40 MG TABLET PO SCH (10:10)
[2018-12-27] MEDS: MIDODRINE HCL 5 MG TABLET PO SCH ×2 (10:10→22:03)
[2018-12-27] MEDS: MUPIROCIN 2% OINT 22GM TUBE TOP SCH ×2 (10:13→22:00)
--- NOTE | 2018-12-27 10:27 | RAD REPORT ---
EXAM DESCRIPTION: RAD - Chest Single View - 12/27/2018 1:41 am EXAM DESCRIPTION: Chest Single View CLINICAL HISTORY: 8 years Female, S/P PICC insertion Comparison: None FINDINGS: Placement of right upper extremity PICC terminating in the mid SVC. No focal lung consolidation. Unchanged chronic lung changes. No pleural effusion. No pneumothorax. Cardiac silhouette is within normal limits. No acute osseous abnormality. IMPRESSION: Appropriately placed right upper extremity PICC. Chronic lung changes. Electronically signed by: Jimmie Hays DO 12/27/2018 2:06 AM CDT Due to temporary technical issues with the PACS/Fluency reporting system, reports are being signed by the in house radiologist as a courtesy to ensure prompt reporting. The interpreting radiologist is f ully responsible for the content of the report.
[2018-12-27] MEDS: Rifaximin 550 MG Tab PO SCH ×2 (11:00→22:03)
[2018-12-27] MEDS ORDERED: PIPER/TAZO/NS 3.375gm 3.375 GM/100 ML BAG IVPB SCH (11:00)
[2018-12-27] MEDS ORDERED: POTASSIUM CL SA 10 MEQ TAB PO ONE (11:57)
--- NOTE | 2018-12-27 17:55 | PN ---
Date of Progress Note: 12/27/2018 Subjective: The patient was admitted with altered mental status secondary to hepatic encephalopathy, acute kidney injury secondary to compartment, recovered back to baseline. The patient had paracente sis today. They managed to remove 4 L. Physical Examination: Vital Signs: Blood pressure 105/59, pulse of 91. Chest: Decreased entry, bilateral base. Heart: S1 and S2. Systolic murmur. Abdomen: Ascites. Extremities: Trace edema. Laboratory Data: Sodium 138, potassium 3, bicarb 30, BUN 29, creatinine 1.1, GFR of 45, calcium 7.8, phosphorus 2.4, albumin 2.2, corrected calcium is 9.4. Current Medications: The patient on include: 1.Zosyn. 2. . 3.Midodrine 10 mg b.i.d. 4.Neurontin. 5.Lasix. 6.Zofran. 7.Pantoprazole. Assessment And Plan: 1.Acute kidney injury secondary to compartment, recovered, resolved back to baseline. 2.Anasarca, ascites secondary to cirrhosis. Continue current diuresis dose. We will continue on e Lasix. 3.Hypertension, currently low blood pressure. Continue midodrine. 4.Neuropathy. We will follow up with the primary. Neurontin has been resumed. 5.Hepatic encephalopathy. Follow up with the primary. The patient cleared from the Renal. 6.Hypokalemia. I am going to go ahead and supplement. J LUIS Voice ID: [id number] Report ID: [id number]
[2018-12-27] MEDS: DOCUSATE NA 100 MG CAP PO SCH (21:00)
--- NOTE | 2018-12-27 21:42 | EKG ---
Test Date: 2018-12-26 Test Time: 20:22:12 [place]: RT-O MEASUREMENT RESULTS: Intervals: Rate: 91 VT: 152 QRSD: 74 QT: 362 QTc: 445 [place]: P: 93 VT: 152 QRS: 34 T: 68 INTERPRETIVE STATEMENTS: Sinus rhythm with premature supraventricular complexes Otherwise normal ECG Compared to ECG 12/19/2018 13:16:46 Atrial premature complex(es) now present T-wave abnormality no longer present Electronically Signed On 12-27-18 21:38:55 CDT by Hi Meyer
[2018-12-27] MEDS: PANTOPRAZOLE 40MG TABLET PO SCH (22:13)
--- NOTE | 2018-12-27 22:27 | PN ---
Date of Progress Note: 12/27/2018 Subjective: The patient's code status is full code. The patient is seen and examined, chart reviewed, and case discussed with RN. The patient had paracentesis done today with 4 L removed. Case discussed with Dr. Pena. The patient overall feels better. Family at the bedside including son and . I spoke to them regarding the patient's terminal make up operator plans. I discussed with them palliative care, hospice care versus continuing to have multiple trips to the ER in the hospital due to her ascites. Unfortunately, the patient is not a good candidate for TIPS procedure. Medications: List reviewed. Physical Examination: Vital Signs: Temperature 98.6, heart rate 83, blood pressure 106/50, respirations 19, and O2 of 99% on room air. General: Awake, alert, oriented x3, elderly female, in some mild distress. CV: S1, S2. Regular rate and rhythm. Peripheral pulses present. Respiratory: Moving air well bilaterally. No wheezing or stridor. Gastrointestinal: Abdomen is soft. Minimal ascites. Bowel sounds positive. Soft, nontender. Extremities: No clubbing or cyanosis. The patient has 2+ peripheral edema, bilateral lower extremities. Neuro: Cranial nerves 2 through 12 intact grossly. No focal neurological deficit. Speech is normal. Laboratory Data: Sodium 138, potassium 3, chloride 101, CO2 30, BUN 29, creatinine 1.13, glucose 114, calcium 7.8, phosphorus 2.4, magnesium 2.2, albumin 2.2. Blood cultures, no growth to date. Ascites fluid culture also shows no growth from the . Urine culture shows no growth. Chest x-ray shows appropriately placed right upper extremity PICC line, chronic lung changes , paracentesis. Ultrasound shows ultrasound-guided paracentesis with 4 L of ascites removed. Assessment And Plan: 1. Acute hepatic encephalopathy, resolved. 2. Hepatorenal syndrome. Appreciate Nephrology's input. The patient unfortunately not a candidate for TIPS. 3. Uremia. The patient did have MRI done which was negative for acute cerebrovascular accident. 4. Hypotension. The patient is on multiple diuretics balancing her diuretics with her blood pressure at this time. 5. Liver cirrhosis secondary to hepatitis C status post paracentesis x2. Cultures have been negative. The patient is getting albumin infusion. The patient had 7 L pulled off on the and 4 L pulled off today, the . 6. Hepatitis C, chronic without coma, with cirrhosis. 7. Hypokalemia. We will replace and monitor. 8. Acute kidney injury. We will continue to monitor creatinine, currently normalized. 9. Generalized weakness. 10. Hyperglycemia. 11. Deep venous thrombosis prophylaxis with sequential compression devices. No chemical anticoagulation due to recent procedure. 12. Severe protein calorie malnutrition albumin 2.2 Plan: Family still have not made a decision. We will discuss further with the patient regarding hospice palliative care versus fdc facility placement. The patient seems to be very weak and will likely not tolerate much rehab, especially not inpatient rehab. Currently code status is full. We will discuss further regarding advanced directive. /MODDai Voice ID: [id number] Report ID: [id number] MTDD
[2018-12-28] MEDS: PIPER/TAZO/NS 3.375gm 3.375 GM/100 ML BAG IVPB SCH ×3 (01:03→16:06)
[2018-12-28 05:21] LABS: Albumin 2.2 g/dL (3.4-5.0); Magnesium 2.1 mg/dL (1.8-2.4); Phosphorus 1.8 mg/dL (2.5-4.9); Potassium 3.5 mmol/L (3.5-5.1)
[2018-12-28] MEDS: MIDODRINE HCL 5 MG TABLET PO SCH ×2 (08:12→21:50)
[2018-12-28] MEDS: LACTULOSE 20 GM/30 ML UCUP PO SCH ×2 (08:14→21:49)
[2018-12-28] MEDS: Rifaximin 550 MG Tab PO SCH ×2 (08:14→21:52)
[2018-12-28] MEDS: ENSURE ENLIVE 237 ML CAN PO SCH ×2 (08:15→21:53)
[2018-12-28] MEDS: GABAPENTIN 300 MG CAP PO SCH ×3 (08:15→21:51)
[2018-12-28] MEDS: MUPIROCIN 2% OINT 22GM TUBE TOP SCH ×2 (08:16→21:49)
[2018-12-28] MEDS: JUVEN PACKET PO SCH ×2 (08:16→21:53)
[2018-12-28] MEDS: FUROSEMIDE 40 MG TABLET PO SCH (10:50)
[2018-12-28] MEDS ORDERED: POTASSIUM PHOS IN 0.9 % NACL 15 MMOL/250 ML BAG IV ONE (11:09)
--- NOTE | 2018-12-28 18:17 | PN ---
Date of Progress Note: 12/28/2018 History: The patient is seen and examined. Chart reviewed and case discussed with RN and Dr. Aviva edmonds. Family still very unclear about discharge plans. The patient will be appropriate for skilled [facility] facility. They do not seem to want palliative care at this time. The patient denies any signi ficant events overnight. No major complaints. Medications: List reviewed. Physical Examination: Vital Signs: Temperature 98.7, heart rate 91, blood pressure 87/46, respirations 16, O2 95% on room air. General: Awake, alert, oriented x3. Elderly female, frail. CV: S1, S2. Regular rate and rhythm. Peripheral pulses present. Respiratory: Moving air well bilaterally. No wheezing. Gastrointestinal: Abdomen is soft, nontender, nondistended. Positive bowel sounds. Minimal ascites . Extremities: No clubbing or cyanosis. The patient has pedal edema. Neurologic: Nonfocal. Laboratory Data: Sodium 137, potassium 3.5, chloride 101, CO2 30, BUN 30, creatinine 1.17, glucose 1 45, calcium 8, phosphorus 1.8, magnesium 2.1, albumin 2.2. Assessment And Plan: An 88-year-old female with: 1.Acute hepatic encephalopathy, resolved. 2.Hepatorenal syndrome. The patient will need to follow up with Dr. Shantal howard as outpatient for po ssible TIPS procedure. Nephrology on board. 3.Uremia. MRI negative for cerebrovascular accident. 4.Hypotension. Blood pressure has improved, now currently at 126 systolic secondary to multiple diu retics, which unable to be discontinued due to her liver cirrhosis. 5.Liver cirrhosis secondary to hepatitis C, status post paracentesis x2, total of 11 L have been pul led off. 6.Hepatitis C, chronic, without coma with cirrhosis. Follows up with GI as outpatient. 7.Hypokalemia, replaced. We will continue to monitor. 8.Acute kidney injury. Creatinine is normalized. Continue to monitor. 9.Generalized weakness. 10.Hyperglycemia. 11.Deep vein thrombosis prophylaxis with SCDs no chemical anticoagulation due to coagulopathy second cristino to liver disease. Plan: SNF referral. The patient family not ready for palliative care or hospice care at this time. They need to follow up with [facility], for possible TIPS procedure. SA/MODL Voice ID: [id number] Report ID: [id number]
--- NOTE | 2018-12-28 18:26 | PN ---
Date of Progress Note: 12/28/2018 Subjective: The patient still complaining of abdominal distention. The patient had paracentesis yes terday, removed 4 L. Her abdomen is soft. Tolerating diet. Physical Examination: Vital Signs: Blood pressure 125/67, pulse of 88. Chest: Clear to auscultation. Heart: S1, S2. Systolic murmur. Abdomen: Ascites. Extremities: No edema. Laboratory Data: WBC 3.7, H and H 9.6/28.3. Sodium 137, potassium 3.5, bicarb 30, BUN 30, creatinin e 1.1, calcium 8, phosphor 1.8, magnesium 2.1, albumin 2.2, corrected calcium 9.2. Assessment And Plan: 1.Acute kidney injury secondary to compartment syndrome, recovered, resolved. 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 Status post acute kidney injury, back to baseline. 3.Hypertension, controlled, optimal. Continue to lyse her blood pressure for more diuresis. 4.Hypokalemia, hypophosphatemia. We will supplement. Continue spironolactone. Current Medications: The patient is on it include; Lasix, Zosyn, Xifaxan, midodrine 10 b.i.d., Lasix 40, lactulose, pantoprazole, Neurontin. The patient overall poor prognosis. J LUIS Voice ID: [id number] Report ID: [id number]
[2018-12-28] MEDS: PANTOPRAZOLE 40MG TABLET PO SCH (21:49)
[2018-12-28] MEDS: DOCUSATE NA 100 MG CAP PO SCH (21:51)
[2018-12-29] MEDS: PIPER/TAZO/NS 3.375gm 3.375 GM/100 ML BAG IVPB SCH ×2 (00:40→09:26)
[2018-12-29 06:12] VITALS: O2SAT 93
[2018-12-29 06:37] LABS: Albumin 2.1 g/dL (3.4-5.0); Magnesium 2.1 mg/dL (1.8-2.4); Phosphorus 2.2 mg/dL (2.5-4.9); Potassium 3.9 mmol/L (3.5-5.1)
[2018-12-29] MEDS: GABAPENTIN 300 MG CAP PO SCH ×2 (08:44→14:00)
[2018-12-29] MEDS: LACTULOSE 20 GM/30 ML UCUP PO SCH (08:44)
[2018-12-29] MEDS: MIDODRINE HCL 5 MG TABLET PO SCH (08:44)
[2018-12-29] MEDS: FUROSEMIDE 40 MG TABLET PO SCH (08:45)
[2018-12-29] MEDS: ENSURE ENLIVE 237 ML CAN PO SCH (08:45)
[2018-12-29] MEDS: JUVEN PACKET PO SCH (08:45)
[2018-12-29 08:54] VITALS: BP 104/52
[2018-12-29] MEDS: MUPIROCIN 2% OINT 22GM TUBE TOP SCH (09:00)
[2018-12-29 09:32] VITALS: TEMP 98.7
[2018-12-29] MEDS: Rifaximin 550 MG Tab PO SCH (10:34)
--- NOTE | 2018-12-29 13:30 | P.PN ---
Subjective Date of Service: 12/29/18 Chief Complaint: Ascites Subjective: No new changes Pt with hx of advanced cirrhosis lmentally at her baseline Cr stable cleared for discharge from nephrology [facility] Physical Examination - Vital Signs Temperature: 98.7 F Blood Pressure: 104/52 Pulse: 94 Respirations: 20 Pulse Ox (%): 97 - Physical Exam General: Alert, In no apparent distress HEENT: Atraumatic Neck: Supple, Without JVD or thyroid abnormality Respiratory: Clear to auscultation bilaterally, Normal air movement Cardiovascular: Edema (trace edema ) Gastrointestinal: Soft and benign, Distended Integumentary: No rashes Assessment And Plan - Plan Acute kidney injury Cr stable now likely compartment improved after paracentecis renal dose meds lower side BP due to advanced cirrhosis +/- sepsis cont midodrine advanced cirrhosis not candidate for transplant or TIPS AMS resolved [facility] poor prognosis
--- NOTE | 2018-12-29 16:46 | PN ---
Date of Progress Note: 12/29/2018 Subjective: Patient is seen and examined. Chart reviewed and case discussed with RN and Case Management. Daughter at the bedside. Treatment plan explained. All questions answered. Patient denies any acute events overnight. Medications: List reviewed. Physical Examination: Vital Signs: Temperature 98.7, heart rate 94, blood pressure 94/50, respirations 20, O2 sat 97% on room air. General: Awake, alert, oriented x3. Elderly female, no acute distress. CV: S1, S2. Regular rate and rhythm. Peripheral pulses present. Respiratory: Diminished breath sounds at the bases. No wheezing or crackles. Gastrointestinal: Abdomen is mildly distended, mild ascites present. Bowel sounds positive. No guarding or rigidity. Positive bowel sounds. Extremities: No clubbing, cyanosis. The patient has peripheral edema. Neurologic: Nonfocal. Laboratory Data: Sodium 135, potassium 3.9, chloride 101, CO2 of 30, BUN 35, creatinine 1.15, glucose 135, calcium 7.8, phosphorus 2.2, magnesium 2.1, albumin is 2.1. WBC pending. Assessment And Plan: An 88-year-old female with. 1. Acute hepatic encephalopathy, resolved. 2. Hepatorenal syndrome, improving. Creatinine normalized. Appreciate Nephrology input. 3. Uremia, resolved. 4. Hypotension asymptomatic. The patient able to tolerate medications. We will continue medications for now. 5. Liver cirrhosis secondary to hepatitis C status post paracentesis x2 with over 10 L removed. No signs of spontaneous bacterial peritonitis. We will continue with diuretics. Patient will need to go to Dr. Murguia for outpatient evaluation for TIPS procedure. 6. Hepatitis C, chronic without coma, with cirrhosis, stable. 7. Hypokalemia. We will replace and monitor. 8. Severe protein-calorie malnutrition. Albumin is 2.1. 9. Acute kidney injury. Creatinine normalized. 10. Generalized weakness. Continue PT. Awaiting SNF placement. 11. DVT prophylaxis with SCDs. No anticoagulation due to coagulopathy secondary to liver disease. Plan: Once again explained at length to family the patient's overall poor prognosis. I have not decided on her code status or appointing medical power of hop grower. Awaiting SNF acceptance. Overall, patient has poor prognosis. Discharge once accepted. BRIANNA Voice ID: [id number] Report ID: [id number]
--- NOTE | 2018-12-30 04:23 | DS ---
Date of Discharge: 12/29/2018 [facility]: Dr. Pena and Dr. Yates with Nephrology and Dr. Little with Nephrology, and Dr. Dunn with GI. Procedures: On 12/20/2018 and 12/27/2018, paracentesis with total of 7 L and then 4 L removed respec tively. Admitting Diagnoses: 1.Acute on chronic ascites secondary to hepatitis C and liver cirrhosis. 2.Hepatitis C, chronic without coma with cirrhosis. 3.Acute hypotension. 4.Hypokalemia. 5.Acute kidney injury. 6.Hyperglycemia. Discharge Diagnoses: 1.Acute hepatic encephalopathy, resolved. 2.Hepatorenal syndrome, improved. 3.Uremia. 4.Acute hypotension, asymptomatic. 5.Liver cirrhosis secondary to hepatitis C, status post paracentesis. 6.Hepatitis C, chronic without coma with cirrhosis. 7.Hypokalemia. 8.Severe protein-calorie malnutrition. 9.Acute kidney injury. 10.Generalized weakness. Hospital Course: The patient is an 88-year-old female with past medical history of hepatitis C with liver cirrhosis, comes in multiple times with worsening ascites. The patient was last seen in the [facility] on 12/09/2018 and had 11 L removed with paracentesis. The patient again comes in with shortne ss of breath along with worsening ascites. The patient was set up for paracentesis by Interventional Radiology, had 7 L pulled out initially. Lap fluid was sent off to rule out spontaneous bacterial p eritonitis. There was no infection. The patient was also seen by Dr. Dunn with GI and the patie nt was initiated on IV antibiotics. The patient did develop some altered mental status, hepatic ence phalopathy along with hepatorenal syndrome. Her kidney function bumped up. The patient was seen by Dr. Pena and his partners with Nephrology. The patient's kidney function improved. She did not require dialysis. Her mental status also improved. Her ammonia level however was normal. She did h ave low albumin levels along with hypokalemia, which was corrected. Initially, the patient will need TIPS procedure. If she is able to tolerate the procedure, she will need to be evaluated by Dr. Jenn potts as an outpatient. Otherwise, her cultures remained negative. Fluid from paracentesis was also neg ative. The patient was very weak, required physical therapy. She was not able to ambulate very far. She was then referred to inpatient rehab initially and senior living facility as well. She was a ccepted to inpatient rehab and was then cleared for discharge. She was stable from customer relations consultant's laura hough. I reiterated to the family multiple times that the patient has liver cirrhosis, which is end-stage li ghazal disease. She will continue to have fluid overload, which can be managed with diuretics, low sodi um, and fluid restriction, and possibly TIPS procedure. I also explained to them that recurrent para centesis also has its risks including infection, bleeding, seeding, and sinus tract formation. They seem to understand. However, the patient due to her early cognitive impairment may not completely un derstand. Both daughters and son at the bedside. All questions were answered regarding her treatmen t and her prognosis, which overall is very poor. She would have liver transplant, for which she is n ot a candidate and TIPS procedure. She has high mortality rate and this was explained to the family. The patient was accepted to inpatient rehab and then transferred in a stable condition. Activity: As per rehab. Medications: As per medication reconciliation list. Diet: Low-sodium, free fluid restricted diet. Followup: Follow up with PCP in 2-3 days. Follow up with GI, Dr. Murguia, in 2 weeks. Follow up with sports centre manager, Dr. Pena, in 2 weeks. Return to ER for worsening condition. Physical Examination: For physical exam findings, please see progress note dictated on day of discharge. Total time spent discharging the patient was 34 minutes. BRIANNA Voice ID: [id number] Report ID: [id number]
== END 2018-12-29 15:57 | DRG 432 ==
LOC: ER 12:42 → ERHOLD 15:04 → 4TH 16:10
PROVIDERS: ADMIT Family Medicine; ATTEND Family Medicine
PROC: 0W9G3ZZ Drainage of Peritoneal Cavity, Percutaneous Approach (ICD-10-PCS; principal; 2018-12-27)
PROC: 02HV33Z Insertion of Infusion Device into Superior Vena Cava, Percutaneous Approach (ICD-10-PCS; 2018-12-27)
DX: K74.60 Unspecified cirrhosis of liver (principal); K76.7 Hepatorenal syndrome; K72.00 Acute and subacute hepatic failure without coma; E43 Unspecified severe protein-calorie malnutrition; R18.8 Other ascites; N17.9 Acute kidney failure, unspecified; E87.3 Alkalosis; B18.2 Chronic viral hepatitis C; I95.9 Hypotension, unspecified; E87.6 Hypokalemia; R73.9 Hyperglycemia, unspecified; E88.09 Other disorders of plasma-protein metabolism, not elsewhere classified; I12.9 Hypertensive chronic kidney disease with stage 1 through stage 4 chronic kidney disease, or unspecified chronic kidney disease; N18.2 Chronic kidney disease, stage 2 (mild); E83.39 Other disorders of phosphorus metabolism; E87.70 Fluid overload, unspecified; G62.9 Polyneuropathy, unspecified; Z68.21 Body mass index [BMI] 21.0-21.9, adult
CPT/HCPCS: 36415; 49083; 70450; 70544; 70549; 70553; 71045; 80048; 80053; 80069; 80076; 81003; 82105; 82140; 82962; 83605; 83690; 83735; 83880; 84100; 84484; 85025; 85610; 85730; 87040; 87070; 87086; 87088; 89050; 92610; 93005; 94760; 96374; 97112; 97116; 97162; 97167; 97530; 99285; A9577; J0696; J1720; J2405; J2543; P9047

== ENCOUNTER 2018-12-29 13:52 | Inpatient (IN) | payer OTHER ==
--- NOTE | 2018-12-29 15:15 | R.PREADM ---
SCREENING DATE AND TIME 12/29/2018 13:56 (CDT) ANTICIPATED REHAB ADMISSION DATE 12/31/2018 REFERRING FACILITY [facility] REFERRAL DATE AND TIME 12/29/2018 13:56 (CDT) REFERRAL ROOM# 422 ACUTE ADMIT DATE 12/19/2018 Previous Rehabilitation(s): No. 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 Valeriano Flannery M.D. MR# [id number] NAME EDGARD DÍAZ ADDRESS [address] [facility] PHONE [facility] [address] DATE OF 1930 AGE 88 SSN# [id number] GENDER female MARITAL STATUS RACE white ADMIT FROM 02 - [facility] PRE-HOSPITAL LIVING SETTING 01 - Home (private home/apt. board/care, assisted living, penitentiary, transitional living) HOME TYPE AND DETAILS Type of home: apartment # of levels in the residence: 1 # of steps to enter the residence: 0 # of steps within the residence: 0 PRE-HOSPITAL LIVING WITH Family/Relatives FAMILY SUPPORT Yes PRIMARY FAMILY CONTACT NAME Rodney Childers PRIMARY FAMILY CONTACT PHONE PRIMARY FAMILY CONTACT RELATIONSHIP Son PHONE PRIMARY FAMILY CONTACT ON ADM.? no IS PRIMARY FAMILY CONTACT AUTH. REP.? no 1ST EMERGENCY CONTACT Rodney Childers 1ST CONTACT PHONE 1ST CONTACT RELATIONSHIP Son PHONE 1ST CONTACT ON ADM. no IS 1ST CONTACT AUTH. REP.? no PHONE 2ND CONTACT ON ADM.? no PATIENT EMPLOYMENT STATUS Retired (for age) PATIENT EMPLOYER No Employer PAYOR INFORMATION: 1ST PAYOR NAME MEDICARE 1ST PAYOR PHONE [phone] 1ST PAYOR INJURY/ILLNESS DUE TO ACCIDENT? No ANOTHER REPUBLICAN RESPONSIBLE? No PRIMARY REHAB/ACUTE DIAGNOSIS: Liver Cirrhosis ONSET DATE 12/19/2018 REHAB IMPAIRMENT CATEGORY (LILLY): 20 Miscellaneous (Misc) does NOT meet 60% rule PRIMARY DIAGNOSIS-RELATED SURGERIES: No surgeries related to the primary diagnosis were performed. COMORBID REHAB/ACUTE DIAGNOSES: - N/A Liver Cirrhosis Hepatitis C Colon Cancer SUMMARY OF ACUTE HOSPITALIZATION: Pt. is a 88 yo Right-handed white female. On 12/19/2018 she was admitted to [facility] with diagnosis Liver Cirrhosis. Her impairment category is Medically Complex Conditions 17 - Terminal Care (17.6). Pre-morbidly, Pt. was independent/mod-I in Self-Care, Sphincter Control, Transfers Control, Locomotio n, Communication, and Social Cognition; and she had good Sphincter Control. Currently, she has deficits of Self-Care, Transfers Control, Locomotion, Endurance, Balance, and Safe ty Awareness. Pt. is now referred to [facility] for acute in-patient rehabilitation in order to maximize patient's functional independence in activities of daily living, strength, ROM, and mobi lity. Patient has realistic goal of being discharged at assistance level 6-Keily to reside at Home with Fam fanny/Relatives. PAST MEDICAL HISTORY Colon Cancer Hepatitis C Liver Cirrhosis PAST SURGICAL HISTORY: Multiple taps BACK SURGERY KNEE SURGERY Cholecystectomy TONSILLECTOMY Hysterectomy MEDICATION ALLERGIES: Morphine Sulfate ENVIRONMENTAL ALLERGIES: None Known - Substance Allergies None Known - Other Allergies ADHESIVE TAPE CODE STATUS: Full code WEIGHT/HEIGHT/BMI: WEIGHT 130 lbs HEIGHT 5' 5" BMI 21.6 DIET: - Diet Type [facility] soft ground - Diet - Solid Texture Regular - Diet - Liquid Texture Regular - Tube Feed N/A REVIEW OF SYSTEMS: - Gen Alert and awake Lying in bed No apparent distress Oriented to: person, time, and place - Vital Signs Temperature: 98.7 F SBP/DBP: 104/52 Pulse: 94 Resp: 20 Vital signs stable, afebrile - CVS RRR VITAL SIGNS Temperature: 98.7 F SBP/DBP: 104/52 Pulse: 94 Resp: 20 Vital signs stable, afebrile CURRENT SPHINCTER CONTROL: Pre-hospital bladder status: continent # of bladder accidents in the last 7 days prior to screenin Pre-hospital bowel status: continent # of bowel accidents in the last 7 days prior to screenin Last Bowel Movement Date: 12/27/2018 DETAILED CURRENT FUNCTIONAL STATUS: - Bladder accident frequency: Ind - No accidents in the past 7 days - Bowel accident frequency: Ind - No accidents in the past 7 days - Walking score based on distance walked: 3(>=150ft) - Wheelchair score based on distance traveled: 0(N/A) FUNCTIONAL STATUS: - Self-Care A. Eating Ind sup B. Grooming Ind sup C. Bathing Ind Corbin D. Dressing - Upper Ind Corbin E. Dressing - Lower Ind modA F. Toileting Ind modA - Sphincter Control G: Bladder control Ind Ind H: Bowel control Ind Ind - Transfers Control I. Bed/Chair/Wheelchair Ind Corbin J. Toilet Ind Corbin K. Tub/Shower Ind ADNO - Locomotion L. Walk/Wheelchair (C) Ind Corbin L. Walk/Wheelchair (W) Ind Corbin M. Stairs Ind ADNO - Communication N. Comprehension (B) Ind Ind O. Expression (B) Ind Ind - Social Cognition P. Social Interaction Ind Ind Q. Problem Solving Ind Ind R. Memory Ind Ind - Endurance Fair - Balance Fair - Safety Awareness Fair CURRENT FUNC. DEFICITS: Self-Care, Transfers Control, Locomotion, Endurance, Balance, and Safety Awareness THERAPY NOTES FROM ACUTE CARE: Attached. SPECIAL NEEDS: - Safety Concerns Skin breakdown precautions needed due to skin breakdown risk PATIENT NEEDS ACTIVE AND ONGOING THERAPEUTIC INTERVENTION OF MULTIPLE THERAPY DISCIPLINES, INCLUDING: - Occupational Therapy Evaluate and Treat. - Physical Therapy Evaluate and Treat. PATIENT NEEDS CLOSE MEDICAL SUPERVISION BY A REHABILITATION PHYSICIAN FOR: Bowel and Bladder Management Coordination of Treatment Team Medical and Co-Morbidity Management PATIENT REQUIRES 24X7 REHAB NURSING FOR MEDICAL AND FUNCTIONAL MGT. OF THE FOLLOWING DEFICITS: ADL's Ambulation Bowel and Bladder Management Communication Disease Management Medication Management Patient/Family Education Providing Safe Environment Transfers Pain Management DVT Management PATIENT REQUIRES INTENSIVE, COORDINATED INTERDISCIPLINARY APPROACH TO REHAB: Arranging Home Equipment/Services Discharge Planning Family Intervention/Training Hhas/Case Management PATIENT REHAB POTENTIAL: Expected level of measurable improvement will be of a practical value to patient's functional capacit y or adaptations to impairments Has a viable Discharge Plan Medically appropriate; condition is sufficiently stable to participate in intensive rehab program Patient is able and expected to receive 3 hours of individualized therapy daily on at least 5 of ever y 7 days Patient's prognosis for significant practical improvement within a reasonable period of time appears Good DISCHARGE PLAN: - Estimated Length of Stay (days) 13. - Consensus on plan Discharge plan has been discussed with primary caregiver. Patient/Family is in agreement with the zachery n. Primary caregiver is in agreement with the plan. - Patient/Family Goals Return home with assistance. - Planned Living Setting Upon Discharge Home, to live with Family/Relatives. Transitional Living. RECOMMENDED CARE LEVEL: IRF RECOMMENDATION DETAILS: Recommended Admission to Comprehensive Rehabilitation Program to Increase Functional [place] SCREENER'S COMPLETENESS CONFIRMATION: - Screening Confirmation The patient data collection on this preadmission screening form is finished PHYSICIANS REVIEW AND ADMISSION DETERMINATION Admit - Based on my review of the Pre-Admission Screening results, in my medical judgment and experie nce, I concur with the findings and recommend admission to [facility], as this patient requires an IRF level of care. SIGNATURE PANEL: Clinical Liaison - [electronically] signed by Cielo Pena on 12/29/2018 at 14:38 (CDT) Physician Reviewer - [electronically] signed by Dr. Valeriano Flannery M.D. on 12/29/2018 at 15:14 (CDT )
--- OUTSIDE RECORDS SUMMARY | 2018-12-29 15:52 | XMS REPORT | Clinical Summary ---
:1930 Author Organization [facility] Address [address] [place] [address] Care Team Providers Name Role Phone Kandy Castillo PA-C Physician Safety Net Maker Ankush Levine Referring Physician Fareed Ballesteros Primary [...] Active (COLACE) 100 MG mouth daily. capsule lactulose Take 30 mLs 8100 mL 3 11/01/2018 Active (CHRONULAC) 10 (20 g total) gram/15 mL (15 mL) by mouth 3 solution (three) times daily. rifAXIMin 550 mg Tab Take 1 tablet 60 tablet 11 12/27/2018 Active (550 mg total) by mouth 2 (two) times daily. cyanocobalamin Take 100 mcg 0 Discontinued (VITAMIN B-12) 1000 by mouth 8 MCG tablet daily. cholecalciferol, Take 2,000 0 Discontinued vitamin D3, 2,000 Units by mouth 8 unit Cap daily. docusate sodium Take 100 mg by 0 Discontinued (STOOL SOFTENER) 100 mouth daily. 8 MG capsule vit C-vit Take by mouth 0 Discontinued G-tqlmpk-ttp-om-3 daily . 8 (OCUVITE) [id number] hj-fncw-vu-mg Cap magnesium oxide-Mg Take by mouth. 0 [...] coma, unspecified chronicity, Nausea, Hypokalemia, Zinc deficiency rifAXIMin 550 mg Tab Take 550 mg by 0 Discontinued mouth 2 (two) 9 times daily. lactulose Take 20 g by [...] infection 09/06/2014 Overview: SNOMED/[place] [id number] Last Assessment & Plan: Cirrhosis of liver [...] Encounters Date Type Specialty Care Team Description 12/27/2018 Orders Only Hepatology Xiao Mckeon RN 11/01/2018 Orders Only Hepatology Pennie Spencer RN 10/20/2018 Abstract Hepatology Yvonne Atkins MA 10/17/2018 Telephone Hepatology Kandy Castillo, Follow-up PA-C 09/30/2018 Abstract Hepatology Pennie Spencer RN 09/30/2018 Telephone Hepatology Pennie Spencer RN Pending imaging 09/30/2018 Abstract HepatPennie Gomez RN 09/20/2018 Documentation Hepatology Xiao Mckeon RN 09/12/2018 Telephone Hepatology Xiao Mckeon RN other 08/11/2018 Telephone Hepatology Xiao Mckeon RN other 08/10/2018 Office Visit Hepatology Lynn Murguia MD 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); [facility] Screening for cancer; Hepatology Clinic E [...] Follow-up PA-C 03/08/2018 Abstract Hepatology Rosemarie Bui 02/25/2018 Documentation [...] Nausea; Hypokalemia; Zinc deficiency; Encephalopathy; 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 12/28/2017 Family History Medical History Relation Name Comments [...] Taken Blood Pressure 94/60 08/10/2018 2:08 PM CONCRETE BUSTER OPERATOR Pulse 92 08/10/2018 2:08 PM CONCRETE BUSTER OPERATOR Temperature 36.3 C (97.4 F) 08/10/2018 2:08 PM CONCRETE BUSTER OPERATOR Respiratory Rate 16 08/10/2018 2:08 PM CONCRETE BUSTER OPERATOR Oxygen Saturation 98% 08/10/2018 2:08 PM CONCRETE BUSTER OPERATOR Inhaled Oxygen Concentration - - Weight 58.2 kg (128 lb 6.4 oz) 08/10/2018 2:08 PM CONCRETE BUSTER OPERATOR Height 165.1 cm (5' 5") 08/10/2018 2:08 PM CONCRETE BUSTER OPERATOR Body Mass Index 21.37 08/10/2018 2:08 PM CONCRETE BUSTER OPERATOR Plan of Treatment Date Type Specialty Care Team Description 02/08/2019 Office Visit Hepatology Resource, [facility] Hepatology Clinic A Procedures Procedure Name Priority Date/Time Associated Diagnosis Comments CBC W/PLT COUNT & Routine 08/10/2018 3:45 Hepatic cirrhosis Results for this AUTO DIFFERENTIAL PM CONCRETE BUSTER OPERATOR due to chronic procedure are in hepatitis C the results infection (HCC) section. Screening for cancer Encephalopathy AMMONIA Routine 08/10/2018 3:45 Hepatic cirrhosis Results for this PM CONCRETE BUSTER OPERATOR due to chronic procedure are in hepatitis C the results infection (HCC) section. Screening for cancer Encephalopathy ALPHA FETOPROTEIN Routine 08/10/2018 3:45 Hepatic cirrhosis Results for this (AFP), TUMOR MARKER PM CONCRETE BUSTER OPERATOR due to chronic procedure are in hepatitis C the results infection (HCC) section. Screening for cancer Encephalopathy PROTHROMBIN TIME/INR Routine 08/10/2018 3:45 Hepatic cirrhosis Results for this PM CONCRETE BUSTER OPERATOR due to chronic procedure are in hepatitis C the results infection (HCC) section. Screening for cancer Encephalopathy CBC W/PLT COUNT & Routine 08/10/2018 3:45 Hepatic cirrhosis Results for this AUTO DIFFERENTIAL PM CONCRETE BUSTER OPERATOR due to chronic procedure are in hepatitis C the results infection (HCC) section. Screening for cancer Encephalopathy HEPATIC FUNCTION Routine 08/10/2018 3:45 Hepatic cirrhosis Results for this PANEL PM CONCRETE BUSTER OPERATOR due to chronic procedure are in hepatitis C the results infection (HCC) section. Screening for cancer Encephalopathy BASIC METABOLIC PANEL Routine 08/10/2018 3:45 Hepatic cirrhosis Results for this (7) PM CONCRETE BUSTER OPERATOR due to chronic procedure are in hepatitis [...] unspecified chronicity Nausea Hypokalemia Zinc deficiency after 12/28/2017 Results CBC with platelet count + automated diff (08/10/2018 3:45 PM CONCRETE BUSTER OPERATOR)Only the most recent of2 resultswithin the time period is included. WBC 5.0 3.5 - 10.5 K/L [facility] RBC 3.39 (L) 3.93 - 5.22 M/L [facility] Hemoglobin 10.7 (L) 11.2 - 15.7 GM/DL [facility] Hematocrit 33.1 (L) 34.1 - 44.9 % [facility] MCV 97.6 (H) 79.4 - 94.8 fL [facility] MCH 31.6 25.6 - 32.2 pg [facility] MCHC 32.3 32.2 - 35.5 GM/DL [facility] RDW 15.0 (H) 11.7 - 14.4 % [facility] Platelets 98 (L) 150 - 450 K/CU MM [facility] MPV 10.0 9.4 - 12.3 fL [facility] nRBC 0 0 - 0 /100 WBC [facility] % Neutros 71 % [facility] % Lymphs 14 % [facility] % Monos 12 % [facility] % Eos 2 % [facility] % Baso 1 % [facility] # Neutros 3.51 1.56 - 6.13 K/L [facility] # Lymphs 0.69 (L) 1.18 - 3.74 K/L [facility] # Monos 0.62 (H) 0.24 - 0.36 K/L [facility] # Eos 0.10 0.04 - 0.36 K/L [facility] # Baso 0.04 0.01 - 0.08 K/L [facility] Immature Granulocytes-Relative 0 0 - 1 % [facility] Specimen Blood Performing Organization Address City/[facility] Cent[facility]ode Phone Number [address] [address] [place] Alpha fetoprotein (AFP), tumor marker (08/10/2018 3:45 PM CONCRETE BUSTER OPERATOR)Only the most recent of2 resultswithin the time period is included. Alpha-Fetoprotein 2.9 <10.0 ng/mL [facility] Specimen Blood Performing Organization Address [facility] Centercode Phone Number [address] [address] C[place] Pro-time/INR (08/10/2018 3:45 PM CONCRETE BUSTER OPERATOR)Only the most recent of2 resultswithin the time period is included. Protime 16.5 (H) 11.7 - 14.7 seconds [facility] INR 1.3 <=5.9 [facility] Specimen Blood Narrative Performed At RECOMMENDED COUMADIN/WARFARIN INR THERAPY [facility] RANGES STANDARD DOSE: 2.0 - 3.0 Includes: PROPHYLAXIS for venous thrombosis, systemic embolization; TREATMENT for venous thrombosis and/or pulmonary embolus. HIGH RISK: Target INR is 2.5-3.5 for patients with mechanical heart valves. Performing Organization Address City/[facility] Centercode Phone Number [address] [address] [phone] CENTER Ammonia (08/10/2018 3:45 PM CONCRETE BUSTER OPERATOR) Ammonia 40 18 - 72 mol/L [facility] Specimen Blood Performing Organization Address City/[facility] Centercode Phone Number [address] [address] [place] Hepatic function panel (08/10/2018 3:45 PM CONCRETE BUSTER OPERATOR)Only the most recent of2 resultswithin the time period is included. Protein, Total 9.0 (H) 6.0 - 8.3 gm/dL [facility] Albumin 2.8 (L) 3.5 - 5.0 g/dL [facility] Total Bilirubin 1.2 0.2 - 1.2 mg/dL [facility] Bilirubin, Direct 0.7 (H) 0.1 - 0.5 mg/dL [facility] Alkaline Phosphatase 111 40 - 150 U/L [facility] AST 31 5 - 34 U/L [facility] ALT 12 6 - 55 U/L [facility] Specimen Blood Performing Organization Address City/[facility] Centercode Phone Number [address] [address] [place] Basic Metabolic Panel (08/10/2018 3:45 PM CONCRETE BUSTER OPERATOR)Only the most recent of2 resultswithin the time period is included. Sodium 133 (L) 136 - 145 meq/L [facility] Potassium 4.0 3.5 - 5.1 meq/L [facility] Chloride 100 98 - 107 meq/L [facility] CO2 27 22 - 29 meq/L [facility] BUN 20 7 - 21 mg/dL [facility] Creatinine 1.07 0.57 - 1.25 mg/dL [facility] Glucose 71 70 - 105 mg/dL [facility] Calcium 9.4 8.4 - 10.2 mg/dL [facility] EGFR 49Comment: ESTIMATED GFR IS mL/min/1.73 sq m [facility] NOT ACCURATE [facility] CLEARANCE IN PREDICTING GLOMERULAR FILTRATION RATE. ESTIMATED GFR IS NOT APPLICABLE FOR DIALYSIS PATIENTS. Specimen Blood Performing Organization Address City/State/Zipcode Phone Number [facility] [address] [place] [address] [phone] CENTER Magnesium (01/06/2018 3:21 PM CDT) Magnesium 1.8 1.6 - 2.6 mg/dL [facility] Specimen Blood Performing Organization Address City/State/Zipcode Phone Number [place] [phone] [place], [place] [phone] CENTER after 12/28/2017 Insurance Payer Benefit Plan / Group Subscriber ID Type Phone Address MEDICARE MEDICARE A B xxxxxxxxxxx Medicare [facility] GENERIC MEDICARE xxxxxxxxx Medigap SUPPLEMENT/INDIVIDUAL SUPPLEMENT
--- OUTSIDE RECORDS SUMMARY | 2018-12-29 15:59 | XMS REPORT | Continuity of Care Document ---
[...] DX:153.9=ADENOCARC 014 [place] INOMA V10.05 Active 014 [facility] Umbilical Active Problem 04/24/2017 Data migrated hernia<sup>2</sup> 014 from [facility] on 01/28/15. Umbilical Active Problem 01/17/2018 Data migrated Medical hernia<sup>5</sup> 014 from [facility] on [facility] 01/28/15. UMB HERNIA WITHOUT Active Condition 04/27/2014 Medical MENTION 014 Group OBSTRUCTION/GANGRE NE LARGE INTESTINE Active Condition 04/27/2014 Medical CANCER 012 Group SCREENING FOR Active Condition 04/27/2014 [facility] COLON CANCER 012 Group Carcinoma of Active Problem 01/17/2018 Data migrated ascending 011 from [facility] colon<sup>1</sup> [facility] on [facility] 01/28/15. Group CARCINOMA, Active Condition 04/27/2014 [facility] ASCENDING COLON 011 Group Cancer of colon Active Problem 01/17/2018 011 [facility] CH - Chronic Active Problem 04/24/2017 hepatitis [facility] DVT (<span Resolved Problem 04/24/2017 ID="[id number]">C [facility] onfirmed</span>) Bronchitis Resolved Problem 01/17/2018 [facility] CAD - Coronary Active Problem 01/17/2018 artery disease [facility] CH - Chronic Active Problem 01/17/2018 blood Medical hepatitis<sup>2</s transfusion Group, up> 1965 [facility] Chemotherapy Resolved Problem 01/17/2018 [facility] 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 [facility] Cirrhosis of liver Active Problem 01/17/2018 [facility] Colon cancer Resolved Problem 01/17/2018 [facility] DVT (<span Resolved Problem 01/17/2018 1966 Medical ID="[id number]">C Group, onfirmed</span>)<s [place] up>3, 4</sup> SOB on Active Problem 01/17/2018 Medical exertion(<span Group, ID="[id number]"> [place] Confirmed</span>) Esophageal varices Active Problem 01/17/2018 [facility] Hepatitis C Active Problem 01/17/2018 [facility] Hernia repair Resolved Problem 01/17/2018 [facility] History of colon Active Problem 01/17/2018 cancer [facility] Incisional hernia Active Problem 01/17/2018 [facility] Kidney stones Active Problem 01/17/2018 Medical Group,[facility] Neuropathy Active Problem 01/17/2018 [facility] Pneumonia Active Problem 01/17/2018 [facility] Recurrent UTI Active Problem 01/17/2018 Medical Group Unspecified Active Diagnosis 08/26/2015 2..1. infectious disease [id number] 1. Bacterial Active Diagnosis 08/26/2015 2.0.1. infection [id number] 1. Other Active Diagnosis 08/26/2015 2.0.1. encephalopathy [id number] 1. Esophageal varices Active Diagnosis 08/26/2015 2.16840.1. [id number] 1. Hepatic cirrhosis Active Diagnosis 08/26/2015 2.16840.1. [id number] 1. UTI Active Problem 08/26/2015 2.16.840.1. [id number] MALIGNANT MIGEL Active MH COLON NOS [facility] 153.9 Active MH [facility] HEPATOPULMONARY Active MH SYNDROME [facility] HX OF COLONIC Active MH MALIGNANCY [facility] URIN TRACT Active MH INFECTION NOS [facility] INCISIONAL HERNIA Active MH [facility] MALIGNANT NEOPLASM Active MH OF COLON, [facility] UNSPECIFIED PERSONAL HISTORY Active MH OF MALIGNANT [facility] NEOPLASM O CALCULUS OF KIDNEY Active MH [facility] Medications Medication Details Route Status Patient Ordering Order Source Instructions Provider Date Acetaminophen 2 tab, PO, Active 300 MG / Q6H, PRN 2016 [facility] Codeine Pain, X 7 Phosphate 30 MG day, # 56 Oral Tablet tab, 0 [Tylenol with Refill(s) Codeine #3] esmolol (ANES) Route: IV, Inactive Drug form: 2016 [facility] INJ, ONCE, Stop date: 08/03/17 13:22:00 [employer] ondansetron Route: IV, Inactive (ANES) Drug form: 2016 [facility] INJ, ONCE, Stop date: 08/03/17 13:07:00 [employer] propofol (ANES) Route: IV, Inactive Drug form: 2016 [facility] INJ, ONCE, Stop date: 08/03/17 13:07:00 [employer] lidocaine Route: IV, Inactive (ANES) Drug form: 2016 [facility] INJ, ONCE, Stop date: 08/03/17 13:07:00 [employer] ciprofloxacin Route: IV, Inactive (ANES) Drug form: 2016 [facility] INJ, ONCE, Stop date: 08/03/17 13:07:00 [employer] dexamethasone Route: IV, Inactive (ANES) Drug form: 2016 [facility] INJ, ONCE, Stop date: 08/03/17 13:07:00 [employer] fentaNYL (ANES) Route: IV, Inactive Drug form: 2016 [facility] INJ, ONCE, Stop date: 08/03/17 13:02:00 [employer] Calcium 1,000 mL, Inactive Chloride 0.0014 Rate: 25 2016 MEQ/ML / ml/hr, Infuse Potassium over: 40 hr, Chloride 0.004 Route: IV, MEQ/ML / Sodium Dosing Weight Chloride 0.103 74.091 kg, MEQ/ML / Sodium Total Volume: Lactate 0.028 1,000, Start MEQ/ML date: Injectable 08/03/17 Solution 12:12:00 [employer], Duration: 30 day, Stop date: 09/02/17 12:11:00 [employer], 1.86, m2 vancomycin Route: IV, Inactive (ANES) 1000 mg Drug form: 2016 [facility] INJ, Start date: 08/03/17 12:10:00 [employer], Stop date: 08/03/17 13:10:00 [employer] Lactated Route: IV, Inactive Ringers Total Volume: 2016 [facility] Injection IV 1,000, Start (ANES) 1000 mL date: 08/03/17 12:10:00 [employer], Stop date: 08/03/17 13:10:00 [employer] Ceftriaxone 1 gm, Route: No Longer IVPB, Q12H, Active 2016 [facility] Dosing Weight 74.091, kg, Start date: 08/02/17 21:00:00 [employer], Duration: 24 hr, Stop date: 08/03/17 9:00:00 [employer], ABX Indication: Urinary Tract Infection phenylephrine Route: IV, Inactive (ANES) Drug form: 2016 [facility] INJ, ONCE, Stop date: 04/21/17 10:51:00 CDT ondansetron Route: IV, Inactive (ANES) Drug form: 2016 [facility] INJ, ONCE, Stop date: 04/21/17 10:41:00 CDT dexamethasone Route: IV, Inactive (ANES) Drug form: 2016 [facility] INJ, ONCE, Stop date: 04/21/17 10:41:00 CDT ceFAZolin Route: IV, Inactive (ANES) Drug form: 2016 [facility] INJ, ONCE, Stop date: 04/21/17 10:41:00 CDT lidocaine Route: IV, Inactive (ANES) Drug form: 2016 [facility] INJ, ONCE, Stop date: 04/21/17 10:41:00 CDT propofol (ANES) Route: IV, Inactive Drug form: 2016 [facility] INJ, ONCE, Stop date: 04/21/17 10:41:00 CDT fentaNYL (ANES) Route: IV, Inactive Drug form: 2016 [facility] INJ, ONCE, Stop date: 04/21/17 10:41:00 CDT acetaminophen Route: IV, Inactive (ANES) (ANES) Drug form: 2016 [facility] INJ, Start date: 04/21/17 10:35:00 CDT, Stop date: 04/21/17 11:35:00 CDT sodium chloride Route: IV, Inactive 0.9% 500 ml INJ Total Volume: 2016 [facility] (ANES) 500, Start date: 04/21/17 10:08:00 CDT, Stop date: 04/21/17 11:08:00 CDT Calcium 1,000 mL, Inactive Chloride 0.0014 Rate: 25 2016 [facility] MEQ/ML / ml/hr, Infuse Potassium over: 40 hr, Chloride 0.004 Route: IV, MEQ/ML / Sodium Dosing Weight Chloride 0.103 74.545 kg, MEQ/ML / Sodium Total Volume: Lactate 0.028 1,000, Start MEQ/ML date: Injectable 04/21/17 Solution 9:53:00 CDT, Duration: 30 day, Stop date: 05/21/17 9:52:00 CDT Ocuvite 1 tab, PO, Active Daily, 0 2016 [facility] Refill(s) Furosemide 40 40 mg=1 tab, Active MG Oral Tablet PO, Daily, 0 2016 [facility] Refill(s) Vitamin D3 2000 2,000 Active intl units oral IntlUnit=1 2016 [facility] tablet tab, PO, Daily, 0 Refill(s) Albuterol 0.833 3 mL, Route: Inactive MG/ML / NEB, Drug 2016 [facility] Ipratropium Form: SOLN, Crowell 0.167 Dosing Weight MG/ML Inhalant 76.364, kg, Solution ONCE, STAT, Start date: 02/23/17 9:22:00 CDT, Stop date: 02/23/17 9:22:00 CDTNotes: (Same as: Nolbertob) Sodium Chloride 500 mL, Rate: Inactive 0.154 MEQ/ML 25 ml/hr, 2016 [facility] Injectable Infuse over: Solution 20 hr, Route: IV, Dosing Weight 76.364 kg, Total Volume: 500, Start date: 02/23/17 9:22:00 CDT, Duration: 1 day, Stop date: 02/24/17 9:21:00 CDT Lasix 20 mg, 1 tab, No Longer Route: PO, Active 2014 [facility] Drug form: TAB, Daily, Dosing Weight 73.295, kg, Start date: 08/08/15 9:00:00, Duration: 30 day, Stop date: 09/06/15 9:00:00Notes: (Same as: Lasix) May cause GI upset. Give with food or milk. Spironolactone 12.5 mg, 0.5 No Longer tab, Route: Active 2014 [facility] PO, Drug form: TAB, Daily, Dosing [...] 20 mL, Route: Inactive IVP, Start 2014 [facility] date: 08/07/15 12:19:00, Duration: 30 day, Stop date: 09/06/15 12:18:00, PRN Line FlushNotes: preservative free. sodium chloride 10 mL, Route: Inactive IVP, Start 2014 [facility] date: 08/07/15 12:18:00, Duration: 30 day, Stop date: 09/06/15 12:17:00, PRN Line FlushNotes: preservative free. ciprofloxacin 500 mg=1 tab, Active 500 mg oral PO, Q12H, X 2014 [facility] tablet 10 day, # 20 tab, 0 Refill(s) Cephalexin 500 500 mg=1 cap, Inactive MG Oral Capsule PO, TID, X 10 2014 [Keflex] day, # 30 cap, 0 Refill(s) Docusate Sodium 100 mg, 1 Inactive 100 MG Oral cap, Route: 2014 [facility] Capsule PO, Drug [Colace] form: CAP, Daily, Dosing Weight 73.295, kg, PRN Constipation, Start date: 08/07/15 11:09:00, Duration: 30 day, Stop date: 09/06/15 11:08:00Notes : (Same as: Colace) (Do Not Crush) Ibuprofen 400 mg, 1 Inactive tab, Route: 2014 [facility] PO, Drug form: TAB, ONCE, Dosing Weight 73.295, kg, PRN Headache 1-5, Start date: 08/06/15 21:10:00, Stop date: 08/06/15 21:10:00Notes : (Same as: Motrin) "Do Not Crush" Give with food. Lasix PO, Daily, 0 Active Refill(s) 2014 [facility] Rocephin 1 gm, Route: No Longer IVPB, Active 2014 [facility] [id number], Dosing Weight 73.295, kg, Start date: 08/06/15 9:00:00, Duration: 30 day, Stop date: 09/04/15 9:00:00Notes: (Same As: Rocephin). Use with 100 mL NS and infuse over 30 min MEDICATION WASTE Product Size: 1000 mg Product Wasted: ___ mg Lactulose 10 gm, 15 ml, Inactive Route: PO, 2014 [facility] Drug Form: SYRP, Dosing Weight 73.295, kg, ONCE, Start date: 08/06/15 3:49:00, Stop date: 08/06/15 3:49:00Notes: (Same as:Chronulac) Ondansetron 4 mg, 2 mL, No Longer Route: IVP, Active 2014 [facility] Drug form: INJ, Q6H, Dosing Weight 73.636, kg, PRN Nausea & Vomiting, Start date: 08/06/15 3:29:00, Duration: 30 day, Stop date: 09/05/15 3:28:00Notes: (Same as: Clint) MEDICATION WASTE Product Size: 4 mg Product Wasted: ___ mg Acetaminophen 325 mg, 1 No Longer tab, Route: Active 2014 [facility] PO, Drug form: TAB, Q4H, Dosing Weight 73.636, kg, PRN Pain Score 4-6, Start date: 08/06/15 3:29:00, Duration: 30 day, Stop date: 09/05/15 3:28:00Notes: Do not exceed 4 gm/day. (Same as: Tylenol) Morphine 2 mg, Route: No Longer IVP, Q4H, Active 2014 [facility] Dosing Weight 73.636, kg, PRN Pain Score 7-10, Start date: 08/06/15 3:29:00, Duration: 30 day, Stop date: 09/05/15 3:28:00 Aspirin 325 mg, 1 No Longer tab, Route: Active 2014 [facility] PO, Drug form: ECTAB, Q24H, Dosing Weight 73.636, kg, Start date: 08/06/15 3:00:00, Duration: 30 day, Stop date: 09/04/15 3:00:00Notes: (Do Not Crush) Do not crush or chew. Saline Flush 10 mL, Route: No Longer 0.9% IVP, Drug Active 2014 [facility] Form: INJ, Dosing Weight 75.455, kg, PRN, PRN Line Flush, Start date: 08/05/15 19:05:00, Duration: 30 day, Stop date: 09/04/15 19:04:00Notes : (Same as: BD Posiflush) Docusate Sodium 100 mg=1 cap, Active 100 MG Oral PO, Daily, as 2013 [facility] Capsule needed for [Colace] constipation, # 20 cap, 0 Refill(s) gabapentin 300 300 mg=1 cap, Active MG Oral Capsule PO, BID, # 90 2013 [facility] cap, 0 Refill(s) tramadol 50 mg=1 tab, Active hydrochloride PO, Q6H, 2013 [facility] 50 MG Oral Pain, # 40 Tablet tab, 0 Refill(s) Ibuprofen 400 400 mg, 1 No Longer MG Oral Tablet tab, Route: Active 2013 [facility] PO, Drug form: TAB, Q6H, Dosing [...] 0.5 No Longer mL, Route: Active 2013 [facility] IV, Drug form: INJ, Q2H, PRN Pain, Start date: 04/18/14 17:55:00, Duration: 30 day, Stop date: 05/18/14 17:54:00 Ibuprofen 600 mg, Inactive Route: PO, 2013 Q6H, Dosing Weight 64.545, kg, PRN as needed for pain, Start date: 04/18/14 17:02:00, Duration: 30 day, Stop date: 05/18/14 17:01:00 Docusate Sodium 100 mg, 1 No Longer 100 MG Oral cap, Route: Active 2013 [facility] Capsule PO, Drug form: CAP, BID, Dosing Weight 64.545, kg, Start date: 04/18/14 17:00:00, Duration: 30 day, Stop date: 05/18/14 9:00:00Notes: (Same as: Colace) (Do Not Crush) Ofirmev 1,000 mg, 100 Inactive mL, Route: 2013 [facility] IV, Drug form: INJ, Q6H, Dosing Weight 65.909, kg, for > or=50 kg, Start date: 04/18/14 12:00:00, Duration: 1 day, Stop date: 04/19/14 6:00:00Notes: Infuse over 15 minutes Do not exceed 4gm/day of acetaminophen Saline Flush 5 ml, Route: No Longer 0.9% IVP, Drug Active 2013 [facility] Form: INJ, Dosing Weight 64.545, kg, PRN, PRN Line Flush, Start date: 04/18/14 10:16:00, Duration: 30 day, Stop date: 05/18/14 10:15:00Notes : Same as: BD Posiflush Sterile Sodium Chloride 1,000 mL, No Longer 0.154 MEQ/ML Rate: 125 Active 2013 [facility] Injectable ml/hr, Infuse Solution over: 8 hr, Route: IV, Dosing Weight 64.545 kg, Total Volume: 1,000, Start date: 04/18/14 10:16:00, Duration: 30 day, Stop date: 05/18/14 10:15:00 Ondansetron 4 mg, 2 mL, No Longer Route: IVP, Active 2013 [facility] Drug form: INJ, Q6H, Dosing Weight 64.545, kg, PRN Nausea & Vomiting, Start date: 04/18/14 10:16:00, Duration: 30 day, Stop date: 05/18/14 10:15:00Notes : (Same as: Zofran) Acetaminophen 1 tab, Route: Inactive 325 MG / PO, Drug 2013 [facility] Hydrocodone Form: TAB, Bitartrate 5 MG Dosing Weight Oral Tablet 65.909, kg, Q4H, PRN Pain Score 1-3, Start date: 04/18/14 10:16:00, Duration: 30 day, Stop date: 05/18/14 10:15:00Notes : (Same as: Herreid 325/5) Do not exceed 4gm/day of acetaminophen . Cefoxitin 2 gm, Route: No Longer IVPB, ONCALL, Active 2013 [facility] Dosing Weight 64.545, kg, Start date: 04/13/14 13:00:00, Duration: 30 day, Stop date: 05/13/14 12:59:00Notes : (Same As: Mefoxin) Naloxone 0.1 mg, Inactive Route: IVP, 2013 [facility] Q2MIN, Dosing Weight 65.909, kg, PRN Narcotic Reversal, Start date: 03/13/14 11:16:00, Duration: 4 doses or times, Stop date: Limited # of times Flumazenil 0.2 mg, Inactive Route: IVP, 2013 [facility] PRN, Dosing Weight 65.909, kg, PRN Other -See Comment, Start date: 03/13/14 11:16:00, Duration: 1 doses or times, Stop date: Limited # of times Sodium Chloride 1,000 mL, Inactive 0.154 MEQ/ML Rate: 25 2013 [facility] Injectable ml/hr, Infuse Solution over: 40 [...] tablet Orally Active 20 mg Orally [facility] 2.16.840.1 daily .767842.4. [id number] 68 Gabapentin 1 capsule Orally Active 300 MG Orally Jus 2.16.840.1 twice a day .109459.4. (bid) 68 B-12 Unknown Sublingual Active 2500 MCG Jus 2.16.840.1 Sublingual .760625.4. 68 Ocuvite 1 tablet Orally Active Orally daily Jus 2.16.840.1 .590286.4. 68 Lasix 1 tablet Orally Active 40 MG Orally Jus 2.16.840.1 Once a day .805516.4. 68 Ciprofloxacin 5 ml Orally Active 500 MG/5ML Jus 2.840.1 (10%) Orally .471947.4. Twice a day 68 Spironolactone 1 tablet Orally Active 25 MG Orally Jus 2.16.840.1 daily .204899.4. 68 Caltrate 600+D 1 tablet with Orally Active 600-400 Jus 2.840.1 food MG-UNIT .476730.4. Orally Once a day Allergies, Adverse Reactions, Alerts Substance Category Reaction Severity Reaction Status Date Comments Source type Reported MORPHINE Drug MORPHINE allergy 2 Medical Group morphine<s Assertion Drug Active Data up>1</sup> allergy 2 migrated [place] from [facility] on 12/27/14. Originally documented as MORPHINE. Hallucinatio ns Adhesive Adverse rash Adverse Active 2.16.840. Tape Reaction Reaction 5 1.012242. 4.391 Morphine Adverse Info Not Adverse Active 2.16.840. Sulfate Reaction Available Reaction 5 1.376365. 4.391 morphine Assertion Drug Active allergy [place] [...] Lymphocytes 36.1 % 20.0 - 08/03 40.0 [facility] HEMATOLOGY Eosinophils 1.2 % 0.0 - 4.0 08/03 [facility] HEMATOLOGY Monocytes 5.4 % 2.0 - 12.0 08/03 [facility] HEMATOLOGY Basophils 0.6 % 0.0 - 1.0 08/03 [facility] HEMATOLOGY Segs 56.7 % 45.0 - 08/03 75.0 /2016 [facility] HEMATOLOGY Monocytes # 0.2 K/CMM 0.0 - 0.8 08/03 [facility] HEMATOLOGY Lymphocytes 1.0 K/CMM 1.0 - 5.5 08/03 [facility] HEMATOLOGY Segs-Bands # 1.6 K/CMM 1.5 - 8.1 08/03 [facility] HEMATOLOGY MPV 9.2 fL 7.4 - 10.4 08/03 [facility] HEMATOLOGY RDW 16.5 % 11.5 - 08/03 14.5 [facility] HEMATOLOGY Platelet 62 K/CMM 133 - 450 08/03 [facility] HEMATOLOGY Hct 39.3 % 36.0 - 08/03 MH 48.0 /2017 [facility] HEMATOLOGY Hgb 13.2 g/dL 12.0 - 08/03 MH 16.0 /2016 [facility] HEMATOLOGY RBC 4.14 M/CMM 4.20 - 08/03 MH 5.40 /2016 [facility] HEMATOLOGY MCH 31.9 pg 27.0 - 08/03 MH 31.0 /2016 [facility] HEMATOLOGY MCV 95.1 fL 80.0 - 08/03 MH 98.0 /2016 [facility] MCHC 33.6 g/dL 32.0 - 08/03 MH 36.0 /2016 [facility] HEMATOLOGY WBC 2.8 K/CMM 3.7 - 10.4 08/03 MH [facility] Renal Renal Patient Name: EDGARD DÍAZ 08/03 - pyelogram pyelogram /2016 - [facility] retrograde retrograde : 1930; Age: 86 years Female DX DX MR: [id number] Read by: Thelma Chopra MD Dictated Date/time: 08/03/17 18:54 Study: Renal pyelogram retrograde DX 08/03/2017 3:09 PM [employer] Electronically Signed by: Thelma Chopra MD 08/03/17 [...] is not recommended in the following populations: [facility] 3m2 Individuals with unstable creatinine concentrations, [...] Globulin 4.6 g/dL 2.7 - 4.2 08/02 [facility] HEMATOLOGY RBC 3.92 M/CMM 4.20 - 12/ MH 5.40 [facility] HEMATOLOGY WBC 5.1 K/CMM 3.7 - 10.4 08/02 [facility] HEMATOLOGY Hgb 12.3 g/dL 12.0 - 08/02 16.0 /2016 [facility] HEMATOLOGY RDW 15.9 % 11.5 - 12/ MH 14.5 /2016 [facility] MCHC 33.4 g/dL 32.0 - 12/ MH 36.0 /2016 [facility] MCH 31.3 pg 27.0 - 12/ MH 31.0 [facility] Hct 36.7 % 36.0 - 12/ MH 48.0 /2016 [facility] HEMATOLOGY MCV 93.6 fL 80.0 - 12/ MH 98.0 /2016 [facility] HEMATOLOGY MPV 8.9 fL 7.4 - 10.4 12/ /2016 [facility] Platelet 82 K/CMM 133 - 450 12/ [facility] HEMATOLOGY INR 1.49 0.85 - 08/02 MH 1.17 /2016 [facility] HEMATOLOGY PT 18.1 s 12.0 - 08/02 14.7 [facility] PTT 33.0 s 22.9 - 08/02 35.8 [facility] HEMATOLOGY Segs-Bands # 2.6 K/CMM 1.5 - 8.1 08/02 [facility] HEMATOLOGY Basophils 0.8 % 0.0 - 1.0 / /2016 [facility] HEMATOLOGY Lymphocytes 1.8 K/CMM 1.0 - 5.5 / MH # /2017 [facility] HEMATOLOGY Eosinophils 0.2 K/CMM 0.0 - 0.5 / MH # /2016 [facility] HEMATOLOGY Monocytes # 0.5 K/CMM 0.0 - 0.8 08/02 [facility] HEMATOLOGY Segs 51.3 % 45.0 - 12/ MH 75.0 [facility] HEMATOLOGY Monocytes 10.3 % 2.0 - 12.0 / [facility] HEMATOLOGY Lymphocytes 34.4 % 20.0 - 12/ MH 40.0 /2016 [facility] HEMATOLOGY Eosinophils 3.2 % 0.0 - 4.0 08/02 [facility] ELECTROLYT AGAP 14.3 meq/L 10.0 - 04/13 ES 20.0 /2016 [facility] ELECTROLYT eGFR 46 04/13 Result Comment: [...] is not recommended in the following populations: [facility] 3m2 Individuals with unstable creatinine concentrations, [...] 0.50 - 04/13 ES Lvl 1.40 /2016 [facility] ELECTROLYT BUN 13 mg/dL 7 - 22 04/13 [facility] ELECTROLYT Potassium 4.3 meq/L 3.5 - 5.1 04/13 ES Lvl /2016 [facility] ELECTROLYT Sodium Lvl 142 meq/L 135 - 145 04/13 [facility] ELECTROLYT Chloride Lvl 107 meq/L 95 - 109 04/13 [facility] ELECTROLYT CO2 25 meq/L 24 - 32 04/13 [facility] ELECTROLYT Calcium Lvl 9.3 mg/dL 8.5 - 10.5 04/13 [facility] ELECTROLYT Glucose Lvl 101 mg/dL 70 - 99 04/13 [facility] HEMATOLOGY Eosinophils 0.2 K/CMM 0.0 - 0.5 04/13 MH # /2017 [facility] HEMATOLOGY Basophils # 0.1 K/CMM 0.0 - 0.2 04/13 [facility] HEMATOLOGY Monocytes # 0.6 K/CMM 0.0 - 0.8 04/13 [facility] HEMATOLOGY Lymphocytes 1.8 K/CMM 1.0 - 5.5 04/13 [facility] HEMATOLOGY Segs-Bands # 3.0 K/CMM 1.5 - 8.1 04/13 [facility] HEMATOLOGY Basophils 0.9 % 0.0 - 1.0 04/13 [facility] HEMATOLOGY Monocytes 10.4 % 2.0 - 12.0 04/13 [facility] HEMATOLOGY Eosinophils 3.0 % 0.0 - 4.0 04/13 [facility] HEMATOLOGY Segs 53.7 % 45.0 - 04/13 75.0 /2017 [facility] HEMATOLOGY Lymphocytes 32.0 % 20.0 - 04/13 MH 40.0 /2016 [facility] HEMATOLOGY INR 1.27 0.85 - 04/13 MH 1.17 /2016 [facility] HEMATOLOGY PT 16.2 s 12.0 - 04/13 14.7 [facility] MPV 8.9 fL 7.4 - 10.4 04/13 [facility] RDW 15.4 % 11.5 - 04/13 14.5 [facility] Platelet 79 K/CMM 133 - 450 04/13 [facility] MCH 32.2 pg 27.0 - 08 31.0 /2016 [facility] MCHC 33.3 g/dL 32.0 - 04/13 36.0 /2016 [facility] RBC 4.00 M/CMM 4.20 - 04/13 5.40 /2016 [facility] MCV 96.5 fL 80.0 - 04/13 98.0 /2016 [facility] Hct 38.6 % 36.0 - 04/13 48.0 [facility] Hgb 12.9 g/dL 12.0 - 04/13 16.0 [facility] WBC 5.6 K/CMM 3.7 - 10.4 04/13 [facility] PTT 28.2 s 22.9 - 04/13 35.8 [facility] PET CT PET CT Patient Name: EDGARD DÍAZ 03/04 - Colorectal Colorectal /2016 - [facility] [place] restaging : 1930; Age: 86 years y/o Female restaging MR: [id number] Read by: Williams Reynolds MD Dictated Date/time: [...] urinary bladder suspicious for chronic cystitis. SL: [id number] ELECTROLYT AGAP 7.1 meq/L 10.0 - 02/16 ES 20.0 [facility] ELECTROLYT eGFR 54 02/16 Result Comment: The eGFR is calculated using the CKD-EPI formula. In most young, healthy individuals the eGFR will be >90 mL/ min/1.73m2. The eGFR declines with age. An eGFR of 60-89 may be normal in [facility] mL/min/1.7 some populations, particularly the elderly, for whom the CKD-EPI formula has not been extensively validated. Use of the eGFR is not recommended in the following populations: [facility] 3m2 Individuals with unstable creatinine concentrations, [...] 8.8 mg/dL 8.5 - 10.5 02/16 ES [facility] ELECTROLYT Chloride Lvl 107 meq/L 95 - 109 02/16 ES [facility] ELECTROLYT CO2 30 meq/L 24 - 32 02/16 ES [facility] ELECTROLYT Potassium 4.1 meq/L 3.5 - 5.1 02/16 ES Lvl [facility] ELECTROLYT Glucose Lvl 75 mg/dL 70 - 99 02/16 ES [facility] ELECTROLYT BUN 11 mg/dL 7 - 22 02/16 ES [facility] ELECTROLYT Creatinine 0.95 mg/dL 0.50 - 02/16 ES Lvl 1.40 /2016 [facility] ELECTROLYT Sodium Lvl 140 meq/L 135 - 145 02/16 [facility] HEMATOLOGY Hgb 13.0 g/dL 12.0 - 02/16 MH 16. [facility] HEMATOLOGY Hct 38.8 % 36.0 - 02/16 MH 48.0 [facility] TUMOR CEA 11.8 ng/mL 0.0 - 3.0 02/16 [facility] CHEM PANEL A/G Ratio 0.6 0.7 - 1.6 08/07 [facility] CHEM PANEL AGAP 11.9 meq/L 10.0 - 08/07 MH 20. [facility] CHEM PANEL Globulin 4.1 g/dL 2.0 - 4.0 08/07 [facility] CHEM PANEL B/C Ratio 15 6 - 25 08/07 [facility] CHEM PANEL eGFR 61 08/07 Result [...] is not recommended in the following populations: [facility] 3m2 Individuals with unstable creatinine concentrations, [...] CO2 25 meq/L 24 - 32 08/07 [facility] CHEM PANEL Chloride Lvl 106 meq/L 95 - 109 08/07 [facility] CHEM PANEL Calcium Lvl 8.5 mg/dL 8.5 - 10.5 08/07 [facility] CHEM PANEL Albumin Lvl 2.5 g/dL 3.5 - 5.0 08/07 [facility] CHEM PANEL Total 6.6 g/dL 6.4 - 8.4 08/07 [facility] CHEM PANEL ALT 20 unit/L 0 - 65 08/07 [facility] CHEM PANEL AST 26 unit/L 0 - 37 08/07 [facility] CHEM PANEL Alk Phos 109 unit/L 39 - 136 08/07 [facility] CHEM PANEL Bili Total 1.2 mg/dL 0.2 - 1.3 08/07 [facility] CHEM PANEL Potassium 3.9 meq/L 3.5 - 5.1 08/07 Lvl [facility] CHEM PANEL Sodium Lvl 139 meq/L 135 - 145 08/07 [facility] CHEM PANEL Creatinine 0.88 mg/dL 0.50 - 12 MH Lvl 1.40 [facility] CHEM PANEL Glucose Lvl 120 mg/dL 70 - 99 08/07 [facility] CHEM PANEL BUN 13 mg/dL 7 - 22 08/07 [facility] CHEM PANEL Magnesium 1.9 mg/dL 1.8 - 2.4 08/07 l /2014 [facility] HEMATOLOGY MPV 8.8 fL 7.4 - 10.4 08/07 [facility] HEMATOLOGY Platelet 54 K/CMM 133 - 450 08/07 [facility] HEMATOLOGY MCHC 33.1 g/dL 32.0 - 08/07 36.0 /2014 [facility] HEMATOLOGY RDW 14.7 % 11.5 - 08/07 MH 14.5 [facility] HEMATOLOGY MCV 97.0 fL 80.0 - 08/07 98.0 /2014 [facility] HEMATOLOGY MCH 32.1 pg 27.0 - 08/07 MH 31.0 /2014 [facility] HEMATOLOGY RBC 3.54 M/CMM 4.20 - 08/07 MH 5.40 /2014 [facility] HEMATOLOGY WBC 3.6 K/CMM 3.7 - 10.4 08/07 [facility] HEMATOLOGY Hct 34.3 % 36.0 - 08/07 48.0 /2014 [facility] HEMATOLOGY Hgb 11.4 g/dL 12.0 - 08/07 16.0 [facility] HEMATOLOGY Monocytes # 0.2 K/CMM 0.0 - 0.8 08/07 [facility] HEMATOLOGY Eosinophils 1.3 % 0.0 - 4.0 08/07 [facility] HEMATOLOGY Monocytes 7.0 % 2.0 - 12.0 08/07 [facility] HEMATOLOGY Lymphocytes 1.1 K/CMM 1.0 - 5.5 08/07 /2014 [facility] HEMATOLOGY Basophils 0.6 % 0.0 - 1.0 08/07 [facility] HEMATOLOGY Segs-Bands # 2.2 K/CMM 1.5 - 8.1 08/07 [facility] HEMATOLOGY Segs 61.3 % 45.0 - 08/07 75.0 [facility] HEMATOLOGY Lymphocytes 29.8 % 20.0 - 08/07 MH 40.0 [facility] URINE AND UA Nitrite Negative Negative 08/06 [facility] (08/06/15 3:01 PM) URINE AND UA Leuk Est Large Negative 08/06 *[facility]* (08/06/15 3:01 PM) URINE AND UA Blood Moderate Negative 08/06 [facility] *ABN* (08/06/15 3:01 PM) URINE AND UA Bili Negative Negative 08/06 [facility] *NA* (08/06/15 3:01 PM) URINE AND UA >=8.0 0.1 - 1.0 08/06 [facility] Urobilinogen [facility] *ABN* (08/06/15 3:01 PM) URINE AND UA Color Yellow Yellow 08/06 STOOL [facility] *NA* (08/06/15 3:01 PM) URINE AND UA Turbidity Cloudy Clear 08/06 [facility] *ABN* (08/06/15 3:01 PM) URINE AND UA Glucose Negative Negative 08/06 [facility] (08/06/15 3:01 PM) URINE AND UA Ketones Negative Negative 08/06 [facility] *NA* (08/06/15 3:01 PM) URINE AND UA Spec Grav 1.015 <=1.030 08/06 [facility] URINE AND UA pH 6.5 5.0 - 8.0 08/06 [facility] URINE AND UA Protein 30 mg/dL Negative 08/06 [facility] mg/dL [facility] URINE AND UA Sq Epi Few /LPF Few /LPF 08/06 STO[facility] URINE AND UA [place] Yeast Many /HPF None Seen 08/06 [facility] /HPF /2014 [facility] URINE AND UA WBC null 0 - 5 08/06 URINE AND UA RBC 17 /HPF 0 - 2 08/06 [facility] Carotid Carotid CAROTID DOPPLER 08/06 - artery artery /2014 - [facility] Doppler Doppler bilat US bilat US [...] Occasional None Seen 08/06 [facility] /HPF /HPF [facility] URINE AND UA Mucus Few /LPF None Seen 08/06 [facility] /LPF [facility] URINE AND UA Bacteria Moderate None Seen 08/06 [facility] /HPF /HPF /2014 URINE AND UA WBC null 0 - 5 08/06 [facility] URINE AND UA Sq Epi Moderate Few /LPF 08/06 [facility] /LPF URINE AND UA RBC 13 /HPF 0 - 2 08/06 STOOL [facility] URINE AND UA Nitrite Negative Negative [...] UA Spec Grav 1.015 <=1.030 08/06 STOOL [facility] URINE AND UA Turbidity Slight Cloudy Clear 08/06 STOOL [facility] (08/05/15 10:40 PM) URINE AND UA Color Yellow Yellow 08/06 STOOL [facility] *NA* (08/05/15 10:40 PM) URINE AND UA Protein Negative Negative 08/06 STOOL [facility] (08/05/15 10:40 PM) URINE AND UA pH 6.0 5.0 - 8.0 08/06 STOOL [facility] CARDIAC CK MB 5.3 ng/mL 0.5 - 3.6 08/06 ENZYMES [facility] CARDIAC Total CK 116 unit/L 12 - 191 08/06 ENZYMES [facility] CARDIAC BNP 45 pg/mL <=100 08/06 ENZYMES pg/mL [facility] CARDIAC Troponin-I null 0.00 - 08/06 ENZYMES 0.40 [facility] CARDIAC CK MB Index 4.6 0.0 - 2.5 08/06 ENZYMES [facility] CHEM PANEL Ammonia 47.0 <=45.0 08/06 umol/L uMol/L [facility] CHEM PANEL Alk Phos 118 unit/L 39 - 136 08/06 [facility] CHEM PANEL Total 7.4 g/dL 6.4 - 8.4 08/06 Protein [facility] CHEM PANEL Calcium Lvl 8.5 mg/dL 8.5 - 10.5 08/06 [facility] CHEM PANEL eGFR 67 08/06 Result [...] is not recommended in the following populations: [facility] 3m2 Individuals with unstable creatinine concentrations, [...] Total 1.0 mg/dL 0.2 - 1.3 08/06 [facility] CHEM PANEL A/G Ratio 0.6 0.7 - 1.6 08/06 [facility] CHEM PANEL ALT 21 unit/L 0 - 65 08/06 [facility] CHEM PANEL Albumin Lvl 2.7 g/dL 3.5 - 5.0 08/06 [facility] CHEM PANEL AST 27 unit/L 0 - 37 08/06 [facility] CHEM PANEL AGAP 11.5 meq/L 10.0 - 12 MH 20.0 [facility] CHEM PANEL Globulin 4.7 g/dL 2.0 - 4.0 08/06 [facility] CHEM PANEL B/C Ratio 14 6 - 25 08/06 [facility] CHEM PANEL BUN 11 mg/dL 7 - 22 08/06 [facility] CHEM PANEL Chloride Lvl 106 meq/L 95 - 109 08/06 [facility] CHEM PANEL Creatinine 0.81 mg/dL 0.50 - 08/06 Lvl 1.40 /2014 [facility] CHEM PANEL Potassium 3.5 meq/L 3.5 - 5.1 08/06 Lvl /2014 [facility] CHEM PANEL Sodium Lvl 140 meq/L 135 - 145 08/06 [facility] CHEM PANEL CO2 26 meq/L 24 - 32 08/06 [facility] CHEM PANEL Glucose Lvl 109 mg/dL 70 - 99 08/06 [facility] HEMATOLOGY MPV 9.1 fL 7.4 - 10.4 08/06 [facility] HEMATOLOGY RDW 15.4 % 11.5 - 08/06 14. [facility] HEMATOLOGY Platelet 70 K/CMM 133 - 450 08/06 [facility] HEMATOLOGY MCHC 33.1 g/dL 32.0 - 12 36.0 [facility] HEMATOLOGY MCH 32.1 pg 27.0 - 12 MH 31.0 [facility] HEMATOLOGY MCV 97.2 fL 80.0 - 08/06 98.0 [facility] HEMATOLOGY Hct 36.5 % 36.0 - 12 MH 48.0 [facility] HEMATOLOGY Hgb 12.1 g/dL 12.0 - 12 MH 16.0 [facility] HEMATOLOGY RBC 3.76 M/CMM 4.20 - [...] is not recommended in the following populations: [facility] 3m2 Individuals with unstable creatinine concentrations, [...] Total 0.9 mg/dL 0.2 - 1.3 08/05 [facility] CHEM PANEL Alk Phos 126 unit/L 39 - 136 08/05 [facility] CHEM PANEL Albumin Lvl 2.7 g/dL 3.5 - 5.0 08/05 [facility] CHEM PANEL ALT 22 unit/L 0 - 65 08/05 [facility] CHEM PANEL AST 27 unit/L 0 - 37 08/05 [facility] CHEM PANEL AGAP 11.8 meq/L 10.0 - 08/05 20.0 [facility] CHEM PANEL B/C Ratio 14 6 - 25 08/05 [facility] CHEM PANEL A/G Ratio 0.6 0.7 - 1.6 08/05 [facility] CHEM PANEL Globulin 4.6 g/dL 2.0 - 4.0 08/05 [facility] HEMATOLOGY MPV 8.9 fL 7.4 - 10.4 08/05 [facility] HEMATOLOGY RDW 15.3 % 11.5 - 08/05 MH 14. [facility] HEMATOLOGY Platelet 69 K/CMM 133 - 450 08/05 [facility] HEMATOLOGY Hct 37.6 % 36.0 - 08/05 MH 48.0 [facility] HEMATOLOGY MCHC 32.8 g/dL 32.0 - 08/05 MH 36.0 [facility] HEMATOLOGY Hgb 12.4 g/dL 12.0 - 08/05 MH 16.0 [facility] HEMATOLOGY MCV 96.5 fL 80.0 - 08/05 MH 98.0 [facility] MCH 31.7 pg 27.0 - 08/05 MH 31.0 /2014 [facility] HEMATOLOGY WBC 6.2 K/CMM 3.7 - 10.4 08/05 /2014 [facility] HEMATOLOGY RBC 3.90 M/CMM 4.20 - 08/05 5.40 /2015 [facility] HEMATOLOGY Monocytes # 0.5 K/CMM 0.0 - 0.8 08/05 /2014 [facility] HEMATOLOGY Basophils 0.6 % 0.0 - 1.0 08/05 /2014 [facility] HEMATOLOGY Segs-Bands # 4.2 K/CMM 1.5 - 8.1 08/05 /2014 [facility] HEMATOLOGY Eosinophils 0.1 K/CMM 0.0 - 0.5 08/05 # /2015 [facility] HEMATOLOGY Lymphocytes 1.4 K/CMM 1.0 - 5.5 08/05 # /2015 [facility] HEMATOLOGY Lymphocytes 22.3 % 20.0 - 08/05 40.0 /2014 [facility] HEMATOLOGY Monocytes 7.3 % 2.0 - 12.0 08/05 /2014 [facility] HEMATOLOGY Eosinophils 1.4 % 0.0 - 4.0 08/05 [facility] HEMATOLOGY Segs 68.4 % 45.0 - 08/05 75.0 /2014 [facility] Chest Chest 1view Chest one view: [...] 08/05 - contrast contrast CT /2014 - [facility] CT REASON FOR EXAM: pt from [...] Basophils 0.4 % 0.0 - 1.0 04/19 [facility] HEMATOLOGY Monocytes # 0.9 K/CMM 0.0 - 0.8 04/19 [facility] HEMATOLOGY Lymphocytes 1.0 K/CMM 1.0 - 5.5 04/19 MH # /2013 [facility] HEMATOLOGY Segs-Bands # 4.2 K/CMM 1.5 - 8.1 04/19 [facility] HEMATOLOGY Eosinophils 0.2 K/CMM 0.0 - 0.5 04/19 MH # /2013 [facility] HEMATOLOGY Eosinophils 2.7 % 0.0 - 4.0 04/19 [facility] HEMATOLOGY Monocytes 13.7 % 2.0 - 12.0 04/19 [facility] Lymphocytes 16.6 % 20.0 - 04/19 MH 40.0 /2013 [facility] HEMATOLOGY Segs 66.6 % 45.0 - 04/19 MH 75.0 /2013 [facility] MCHC 33.3 g/dL 32.0 - 04/19 MH 36.0 /2013 [facility] HEMATOLOGY RDW 15.2 % 11.5 - 04/19 MH 14.5 /2013 [facility] HEMATOLOGY MCH 32.3 pg 27.0 - 04/19 MH 31.0 /2013 [facility] HEMATOLOGY MCV 96.9 fL 80.0 - 04/19 MH 98.0 /2013 [facility] HEMATOLOGY Hct 30.1 % 36.0 - 04/19 MH 48.0 [facility] Platelet 67 K/CMM 133 - 450 04/19 [facility] MPV 8.4 fL 7.4 - 10.4 04/19 [facility] Hgb 10.0 g/dL 12.0 - 04/19 MH 16.0 [facility] HEMATOLOGY RBC 3.11 M/CMM 4.20 - 04/19 MH 5.40 /2013 [facility] HEMATOLOGY WBC 6.3 K/CMM 3.7 - 10.4 04/19 [facility] Chest 2 Chest 2 EXAM: Chest 2 views 04/19 - views views /2013 - [facility] DATE: Apr 19, 2014 09:48:02 AM [...] Globulin 4.8 g/dL 2.0 - 4.0 04/13 [facility] CHEM PANEL A/G Ratio 0.6 0.7 - 1.6 04/13 [facility] CHEM PANEL AGAP 13.4 meq/L 10.0 - 04/13 20.0 [facility] CHEM PANEL B/C Ratio 9 6 - 25 04/13 [facility] CHEM PANEL eGFR 59 04/13 1Result [...] is not recommended in the following populations: [facility] 3m2 Individuals with unstable creatinine concentrations, [...] values reflect the clinical guidelines of the [employer]. [facility] CHEM PANEL BUN 8 [...] Total 1.3 mg/dL 0.2 - 1.3 04/13 [facility] CHEM PANEL Total 7.7 g/dL 6.4 - 8.4 04/13 [facility] CHEM PANEL Albumin Lvl 2.9 g/dL 3.5 - 5.0 04/13 [facility] HEMATOLOGY MCH 32.1 pg 27.0 - 04/13 31.0 [facility] HEMATOLOGY RDW 14.6 % 11.5 - 04/13 14.5 [facility] HEMATOLOGY MCHC 33.1 g/dL 32.0 - 04/13 36.0 /2013 [facility] HEMATOLOGY Platelet 76 K/CMM 133 - 450 04/13 [facility] HEMATOLOGY RBC 3.79 M/CMM 4.20 - 04/13 5.40 /2013 [facility] HEMATOLOGY Hct 36.7 % 36.0 - 04/13 48.0 /2013 [facility] HEMATOLOGY MCV 97.0 fL 81.0 - 04/13 99.0 /2013 [facility] HEMATOLOGY Hgb 12.1 g/dL 12.0 - 04/13 16.0 [facility] HEMATOLOGY WBC 4.6 K/CMM 3.7 - 10.4 04/13 [facility] HEMATOLOGY MPV 8.9 fL 7.4 - 10.4 04/13 [facility] HEMATOLOGY Segs 52.6 % 45.0 - 04/13 75.0 /2013 [facility] HEMATOLOGY Monocytes # 0.6 K/CMM 0.0 - 0.8 04/13 [facility] HEMATOLOGY Eosinophils 0.1 K/CMM 0.0 - 0.5 04/13 /2013 [facility] HEMATOLOGY Basophils 1.0 % 0.0 - 1.0 04/13 [facility] HEMATOLOGY Segs-Bands # 2.4 K/CMM 1.5 - 8.1 04/13 [facility] HEMATOLOGY Lymphocytes 1.5 K/CMM 1.0 - 5.5 04/13 /2013 [facility] HEMATOLOGY Lymphocytes 32.1 % 20.0 - 04/13 40.0 [facility] HEMATOLOGY Monocytes 12.2 % 2.0 - 12.0 04/13 [facility] HEMATOLOGY Eosinophils 2.1 % 0.0 - 4.0 04/13 [facility] PET CT PET CT PET/CT SCAN: 03/24 [facility] Colorectal Colorectal /2013 - [facility] [place] restaging restaging TECHNIQUE: 14 mCi [...] AST 43 unit/L 0 - 37 03/06 [facility] CHEM PANEL Albumin Lvl 2.9 g/dL 3.5 - 5.0 03/06 [facility] CHEM PANEL Total 7.7 g/dL 6.4 - 8.4 03/06 [facility] CHEM PANEL Bili Direct 0.5 mg/dL 0.0 - 0.3 03/06 [facility] CHEM PANEL Alk Phos 137 unit/L 39 - 136 03/06 [facility] CHEM PANEL Bili Total 1.4 mg/dL 0.2 - 1.3 03/06 [facility] CHEM PANEL ALT 22 unit/L 0 - 65 03/06 [facility] CHEM PANEL Bili 0.9 mg/dL 0.0 - 1.0 03/06 [facility] CHEM PANEL Globulin 4.8 g/dL 2.0 - 4.0 03/06 [facility] CHEM PANEL A/G Ratio 0.6 0.7 - 1.6 03/06 [facility] ELECTROLYT AGAP 8.9 meq/L 10.0 - 03/06 ES 20.0 [facility] ELECTROLYT eGFR 59 03/06 1Result Comment: The eGFR is calculated using the CKD-EPI formula. In most young, healthy individuals the eGFR will be >90 mL/ min/1.73m2. The eGFR declines with age. An eGFR of 60-89 may be normal in [facility] mL/min/1.7 /2013 some populations, particularly the elderly, for whom the CKD-EPI formula has not been extensively validated. Use of the eGFR is not recommended in the following populations: [facility] 3m2 Individuals with unstable creatinine concentrations, [...] CO2 28 meq/L 24 - 32 03/06 [facility] ELECTROLYT Calcium Lvl 8.7 mg/dL 8.5 - 10.5 03/06 [facility] ELECTROLYT BUN 9 mg/dL 7 - 22 03/06 [facility] ELECTROLYT Creatinine 0.9 mg/dL 0.5 - 1.4 03/06 [facility] Lvl [facility] ELECTROLYT Sodium Lvl 140 meq/L 135 - 145 03/06 [facility] ELECTROLYT Potassium 3.9 meq/L 3.5 - 5.1 03/06 ES Lvl [facility] ELECTROLYT Chloride Lvl 107 meq/L 95 - 109 03/06 [facility] ELECTROLYT Glucose Lvl 84 mg/dL 70 - 99 03/06 2Interpretive Data: Adult reference range values reflect the clinical guidelines of the [employer]. [facility] HEMATOLOGY Hgb 11.9 g/dL 12.0 - 03/06 16.0 [facility] HEMATOLOGY Hct 35.2 % 36.0 - 03/06 48.0 [facility] HEMATOLOGY Platelet 80 K/CMM 133 - 450 03/06 [facility] HEMATOLOGY WBC 4.4 K/CMM 3.7 - 10.4 03/06 [facility] HEMATOLOGY PT 15.9 s 12.0 - 03/06 14.7 [facility] HEMATOLOGY INR 1.29 0.85 - 07 3Interpretive Data: RECOMMENDED RANGES FOR PROTIME INR: . 2.0-3.0 for most medical and surgical thromboembolic states. [facility] 2.5-3.5 for artificial heart valves and recurrent embolism. INR SHOULD BE USED ONLY FOR PATIENTS ON STABLE ANTICOAGULANT THERAPY. HEMATOLOGY PTT 32.6 s 22.9 - 03/06 4Interpretive 35.8 /2013 Data: Heparin [facility] Therapeutic Range: 57 - 92 Seconds TUMOR CEA 12.2 ng/mL 0.0 - 3.0 03/06 [facility] PET CT PET CT 09/14 - Colorectal Colorectal - [facility] [place] restaging EXAM: PET/CT restaging [...] Vital Signs Vital Sign Value Date Comments [facility] Systolic (mm Hg) 125 08/03/2017 [facility] Diastolic (mm Hg) 71 08/03/2017 [facility] Systolic (mm Hg) 129 08/03/2017 [facility] Diastolic (mm Hg) 66 08/03/2017 [facility] Systolic (mm Hg) 128 08/03/2017 [facility] Diastolic (mm Hg) 59 08/03/2017 [facility] Respitory Rate 16 08/03/2017 [facility] Respitory Rate 11 08/03/2017 [facility] Respitory Rate 9 08/03/2017 [facility] Temperature Oral (F) 97.3 F 08/02/2017 [facility] Heart Rate 70 08/02/2017 [facility] BMI Calculated 27.18 08/02/2017 [facility] Height 165.1 cm 08/02/2017 [facility] Weight 74.091 08/02/2017 [facility] Systolic (mm Hg) 99 04/21/2017 [facility] Diastolic (mm Hg) 56 04/21/2017 [facility] Respitory Rate 18 04/21/2017 [facility] Respitory Rate 18 04/21/2017 [facility] Systolic (mm Hg) 114 04/21/2017 [facility] Diastolic (mm Hg) 58 04/21/2017 [facility] Systolic (mm Hg) 109 04/21/2017 [facility] Diastolic (mm Hg) 56 04/21/2017 [facility] Respitory Rate 12 04/21/2017 [facility] Height 165.1 cm 04/13/2017 [facility] Weight 74.545 04/13/2017 [facility] BMI Calculated 27.35 04/13/2017 [facility] Temperature Oral (F) 97.4 F 04/13/2017 [facility] Heart Rate 80 04/13/2017 [facility] Systolic (mm Hg) 118 02/23/2017 [facility] Diastolic (mm Hg) 61 02/23/2017 [facility] Respitory Rate 32 02/23/2017 [facility] Respitory Rate 28 02/23/2017 [facility] Systolic (mm Hg) 109 02/23/2017 [facility] Diastolic (mm Hg) 60 02/23/2017 [facility] Systolic (mm Hg) 109 02/23/2017 [facility] Diastolic (mm Hg) 61 02/23/2017 [facility] Respitory Rate 23 02/23/2017 [facility] Temperature Oral (F) 97.4 F 02/16/2017 [facility] Heart Rate 72 02/16/2017 [facility] BMI Calculated 28.02 02/16/2017 [facility] Weight 76.364 02/16/2017 [facility] Height 165.1 cm 02/16/2017 [facility] Weight 159 08/12/2015 [id number] Height 64.4 08/12/2015 [id number] Temperature Oral (F) 97.6 F 08/12/2015 [id number] Heart Rate 93 08/12/2015 [id number] Diastolic (mm Hg) 63 08/12/2015 [id number] Systolic (mm Hg) 114 08/12/2015 [id number] Systolic (mm Hg) 102 08/07/2015 [facility] Diastolic (mm Hg) 66 08/07/2015 [facility] Temperature Oral (F) 97.6 F 08/07/2015 [facility] Respitory Rate 16 08/07/2015 [facility] Heart Rate 77 08/07/2015 [facility] Respitory Rate 15 08/07/2015 [facility] Temperature Oral (F) 97.4 F 08/07/2015 [facility] Heart Rate 81 08/07/2015 [facility] Systolic (mm Hg) 100 08/07/2015 [facility] Diastolic (mm Hg) 66 08/07/2015 [facility] Systolic (mm Hg) 115 08/07/2015 [facility] Diastolic (mm Hg) 73 08/07/2015 [facility] Heart Rate 83 08/07/2015 [facility] Respitory Rate 16 08/07/2015 [facility] Temperature Oral (F) 97.4 F 08/07/2015 [facility] BMI Calculated 26.89 08/06/2015 [facility] Weight [...] [facility] Diastolic (mm Hg) 54 03/13/2014 [facility] Temperature Oral (F) 97.6 F 03/06/2014 [facility] Height 165.1 cm 03/06/2014 [facility] Weight 65.909 03/06/2014 [facility] BMI Calculated 24.18 03/06/2014 [facility] Weight 149 02/02/2014 [facility] Temperature [...] Number For Provider Date Date Visit Outpatient [id number] COLON PING CEBALLOS 09/14 Active [facility] 9 [facility] Outpatient [id number] 153.9 PING CEBALLOS 09/20 Active [facility] Bedded [id number] Theodoros 03/13 03/13 [facility] Outpatient 0 [facility] Office [id number] Dakota Michele, 03/23 03/23 [id number] General [facility] 350 [facility] Outpatient [id number] Ping Ceballos 03/24 03/25 [place] [facility] Lab Report [id number] Dakota Michele, 03/26 03/26 [place] [id number] [facility] Lab Report [id number] Thesantoshorowili 04/12 04/12 [place] [id number] [facility] OBS [id number] Dakota Michele 04/18 04/20 [place] [facility] Office [id number] Dakota Michele, 04/27 04/27 [place] Visit [id number] OP [id number] Ping Ceballos 08/05 09/04 [place] Recurring [facility] OBS [id number] Van 08/06 08/07 [place] Observation 3 [facility] Unknown [id number] 08/[id number] 08/12 [id number] Medical [id number] /[id number] .[id number] Group [id number] Outpatient [id number] THEODOROS 05/14 [facility] 0 [facility]IAN [place] Outpatient [id number] THEODOROS 10/15 [facility] 1 [facility]OLOYIAN [place] Outpatient [id number] THEODOROS 02/23 [facility] 3 VOLOY [place] Outpatient [id number] THEODORO 02/23 [facility] 2 VOLOYIAN [facility] Bedded [id number] Theodoros 02/23 02/23 [facility] Outpatient 4 Volian [facility] Outpatient [id number] Theodoros 03/04 03/05 [facility] 5 Voloyian /2016 [facility] Outpatient [id number] [facility] 03/30 [facility] [place] Outpatient [id number] THEODOROS 04/21 [facility] 5 VOLOY [facility] [id number] [facility] 04/[facility] 04/21 [facility] Outpatient [id number] ROMAN FOSTER 05/12 Active [facility] [id number] [facility] 05/17 Active [facility] [id number] NURSE VISIT 06/22 Active [facility] [id number] [facility] 08/03 08/03 [place] /2016 [facility] [id number] JOVANA CUI 08/26 Active [facility] [id number] [facility] 08/26 Active [facility] [id number] Jovana Karli 08/26 08/26 Urology Pre-Reg [facility] Outpatient [id number] [facility] 08/26 08/27 Urology [facility] Out[facility] [id number] [facility] 09/27 Active [facility] Out[facility] [id number] [facility] 09/27 09/28 Urology [facility] Outpatient [id number] [facility] 01/14 Active [facility] [id number] [facility] 01/14 01/14 Urology Pre-Reg [facility] Procedures Procedure Code Date Perfomer Comments Source Cystourethroscopy, 11424 Medical with removal of 7 Group foreign body, calculus, or ureteral stent from urethra or bladder (separate procedure); simple Hernia repair [id number] [place] 4 Hernia repair [id number] Medical 4 Group Cannulation of [id number] [facility] Cardiac [id number] 1994 [facility] catheterization<sup>1 </sup> Cholecystectomy 18066702 [facility] Colonoscopy 64401059 [facility] Hysterectomy [id number] [facility] Knee [id number] 2011 [facility] replacement<sup>2</red p> Operation [id number] [facility] Partial resection of 31966396 [facility] colon Cannulation of [id number] Medical Port[facility]ath Group Cardiac [id number] 1994 Medical catheterization<sup>1 Group </sup> Cataract extraction [id number] Medical and insertion of Group intraocular lens Cholecystectomy 42378607 Medical Group Colonoscopy [id number] Medical Group Hysterectomy [id number] Medical Group Knee [id number] 2011 Medical replacement<sup>2</red Group p> Operation [id number] Medical Group Partial resection of 34748708 Medical colon Group Cataract extraction [id number] [place] and insertion of intraocular lens
--- OUTSIDE RECORDS SUMMARY | 2018-12-29 16:01 | XMS REPORT | CCD ---
:1930 Author Organization [facility] Care Team Providers Name Role Phone Marlyn Ceballos Consulting Provider Allergies, Adverse Reactions, Alerts Substance Reaction Status morphine Active Problem List Condition Effective Dates Status CAD - Coronary artery disease Active Cancer of colon 05/10/2011 Active Cirrhosis of liver Active Esophageal varices Active Hepatitis C Active Pneumonia Active
--- OUTSIDE RECORDS SUMMARY | 2018-12-29 16:01 | XMS REPORT | CCD ---
:1930 Author Organization [facility] Care Team Providers Name Role Phone Marlyn Ceballos Referring Provider Allergies, Adverse Reactions, Alerts Substance Reaction Status morphine Active Problem List Condition Effective Dates Status CAD - Coronary artery disease Active Cancer of colon 05/10/2011 Active Cirrhosis of liver Active Esophageal varices Active Hepatitis C Active Pneumonia Active
--- OUTSIDE RECORDS SUMMARY | 2018-12-29 16:02 | XMS REPORT | Continuity of Care Document ---
:1930 Author Organization [facility] Care Team Providers Name Role Phone MD Niranjan, Galdino Unavailable Unavailable Insurance Providers Payer name Policy type / Policy ID Covered republican ID Policy [place] Coverage type [place]IC[place] [employer] AARP HEALTHCARE OPTIONS (MEDICARE SUPPLEMENT AARP HEALTHCARE [...] Location Date Lab Report Galdino Ureña MD [facility] Apr 12, 2014 Allergies, Adverse [...]
--- OUTSIDE RECORDS SUMMARY | 2018-12-29 16:02 | XMS REPORT | Continuity of Care Document ---
:1930 Author Organization [facility] Care Team Providers Name Role Phone MD Michele Hoang Unavailable Unavailable Insurance Providers Payer name Policy type / Policy ID Covered green party ID Policy [place]oya Coverage type [place]IC[place]: [place] SP[place] AARP HEALTHCARE OPTIONS (MEDICARE SUPPLEMENT AARP HEALTHCARE [...] Michele MD [facility] [place] Mar 26, 2014 Allergies, Adverse Reactions, Alerts [...]
--- OUTSIDE RECORDS SUMMARY | 2018-12-29 16:02 | XMS REPORT | Continuity of Care Document ---
:1930 Author Organization [facility] Care Team Providers Name Role Phone MD Michele Hoang Unavailable Unavailable Insurance Providers Payer name Policy type / Policy ID Covered republican ID Policy Montoya Coverage type MEDIC[place]: [employer] AARP HEALTHCARE OPTIONS (MEDICARE SUPPLEMENT AARP HEALTHCARE [...] Location Date Office Visit [place] Michele MD [facility] Apr 27, 2014 Surgery 350 [...]
--- OUTSIDE RECORDS SUMMARY | 2018-12-29 16:02 | XMS REPORT ---
:1930 Author Organization [employer] Care Team Providers Name Role Phone Belkis Luuad Provider Role Unavailable Allergies, Adverse Reactions, Alerts Substance Reaction Event Type Adhesive Tape rash Drug Allergy Morphine Sulfate Info Not Available Drug Allergy Encounters Encounter Location Date Unknown [facility] Aug 12, 2015 Problems Problem Type [...] End Status Dosage Date Date Propranolol HCl [facility] 28587-21 20 mg Orally Active 1 tablet 73-00 daily Gabapentin [facility] 89852-17 300 MG Orally Active 1 capsule 39-19 twice a day (bid) B-12 [facility] 69616-27 2500 MCG Active Unknown 92-72 Sublingual Ocuvite [facility] 59338-30 Orally daily Active 1 tablet 87-60 Lasix [facility] 46283-55 40 MG Orally Active 1 tablet 60-13 Once a day Ciprofloxacin [facility] 93201-88 500 MG/5ML (10%) Active 5 ml 93-01 Orally Twice a day [facility]act[facility] 22414-67 25 MG Orally Active 1 tablet 03-11 daily Caltrate 600+D [facility] 89729-55 600-400 MG-UNIT Active 1 tablet 86-00 Orally [...]
--- OUTSIDE RECORDS SUMMARY | 2018-12-29 16:02 | XMS REPORT | Continuity of Care Document ---
:1930 Author Organization [facility] Care Team Providers Name Role Phone MD Michele Hoang Unavailable Unavailable Insurance Providers Payer name Policy type / Policy ID Covered green party ID Policy Montoya Coverage type [place]IC[place] [employer] AARP HEALTHCARE OPTIONS (MEDICARE SUPPLEMENT AARP HEALTHCARE [...] [facility] Mar 23, 2014 Surgery 350 [...]
--- OUTSIDE RECORDS SUMMARY | 2018-12-29 16:03 | XMS REPORT ---
:1930 Author Organization [facility] Address [address] [place] [address] [address] [place] [address] Care Team Providers Name Role Phone MARY [...] Value Reference Range Comments ALPHA-FETOPROTEIN (BEAKER) (test opuj=2118) 2.9 ng/mL <10.0 HEPATIC FUNCTION [id number] 16:38:00 Test Item Value Reference Range Comments TOTAL PROTEIN (BEAKER) (test getv=147) 9.0 gm/dL 6.0-8.3 ALBUMIN (BEAKER) (test wspw=0168) 2.8 g/dL 3.5-5.0 BILIRUBIN TOTAL (BEAKER) (test erkl=004) 1.2 mg/dL 0.2-1.2 BILIRUBIN DIRECT (BEAKER) (test tfmc=590) 0.7 mg/dL 0.1-0.5 ALKALINE PHOSPHATASE (BEAKER) (test wugy=196) 111 U/L 40-150 AST (SGOT) (BEAKER) (test vxos=424) 31 U/L 5-34 ALT (SGPT) (BEAKER) (test ttes=418) 12 U/L 6-55 BASIC METABOLIC [id number] 16:38:00 Test Item Value Reference Range Comments SODIUM (BEAKER) (test 133 meq/L 136-145 zznm=728) POTASSIUM (BEAKER) (test 4.0 meq/L 3.5-5.1 gtbr=253) CHLORIDE (BEAKER) (test 100 meq/L 98-107 inhi=026) CO2 (BEAKER) (test 27 meq/L 22-29 yows=844) BLOOD UREA NITROGEN 20 mg/dL 7-21 (BEAKER) (test wlcd=802) CREATININE (BEAKER) (test 1.07 mg/dL 0.57-1.25 uuah=828) GLUCOSE RANDOM (BEAKER) 71 mg/dL 70-105 (test nwco=591) CALCIUM (BEAKER) (test 9.4 mg/dL 8.4-10.2 ikoa=892) EGFR (BEAKER) (test 49 mL/min/1.73 sq m ESTIMATED GFR IS NOT kfgu=8486) ACCURATE CREATININE CLEARANCE IN PREDICTING GLOMERULAR FILTRATION RATE. ESTIMATED GFR IS NOT APPLICABLE FOR DIALYSIS PATIENTS. [id number] 16:33:00 Test Item Value Reference Range Comments AMMONIA (BEAKER) (test qoxg=430) 40 mol/L 18-72 PROTHROMBIN [id number] 16:29:00 Test Item Value Reference Range Comments PROTIME (BEAKER) (test kumg=345) 16.5 seconds 11.7-14.7 INR (BEAKER) (test rzbp=586) 1.3 <=5.9 RECOMMENDED COUMADIN/WARFARIN INR THERAPY RANGESSTANDARD DOSE: 2.0 - 3.0 Includes: PROPHYLAXIS forvenous thrombosis, systemic embolization; TREATMENT for venous thrombosis and/or pulmonary embolus.HIGH RISK: Target INR is 2.5-3.5 for patients with mechanical heart valves.CBC W/PLT COUNT & AUTO [id number] 16:22:00 Test Item Value Reference Range Comments WHITE BLOOD CELL COUNT (BEAKER) (test wfxm=180) 5.0 K/ L 3.5-10.5 RED BLOOD CELL COUNT (BEAKER) (test gqcu=816) 3.39 M/ L 3.93-5.22 HEMOGLOBIN (BEAKER) (test gxlx=364) 10.7 GM/DL 11.2-15.7 HEMATOCRIT (BEAKER) (test tvmx=741) 33.1 % 34.1-44.9 MEAN CORPUSCULAR VOLUME (BEAKER) (test mddh=259) 97.6 fL 79.4-94.8 MEAN CORPUSCULAR HEMOGLOBIN (BEAKER) (test 31.6 pg 25.6-32.2 ggue=160) MEAN CORPUSCULAR HEMOGLOBIN CONC (BEAKER) (test 32.3 GM/DL 32.2-35.5 gcqi=768) RED CELL DISTRIBUTION WIDTH (BEAKER) (test 15.0 % 11.7-14.4 wfvp=462) PLATELET COUNT (BEAKER) (test fynd=644) 98 K/CU MM 150-450 MEAN PLATELET VOLUME (BEAKER) (test tjuh=431) 10.0 fL 9.4-12.3 NUCLEATED RED BLOOD CELLS (BEAKER) (test 0 /100 WBC 0-0 cgzy=924) NEUTROPHILS RELATIVE PERCENT (BEAKER) (test 71 % mqot=081) LYMPHOCYTES RELATIVE PERCENT (BEAKER) (test 14 % svve=348) MONOCYTES RELATIVE PERCENT (BEAKER) (test 12 % sntf=522) EOSINOPHILS RELATIVE PERCENT (BEAKER) (test 2 % lenf=304) BASOPHILS RELATIVE PERCENT (BEAKER) (test 1 % wlng=253) NEUTROPHILS ABSOLUTE COUNT (BEAKER) (test 3.51 K/ L 1.56-6.13 syee=791) LYMPHOCYTES ABSOLUTE COUNT (BEAKER) (test 0.69 K/ L 1.18-3.74 elqd=241) MONOCYTES ABSOLUTE COUNT (BEAKER) (test mwqb=387) 0.62 K/ L 0.24-0.36 EOSINOPHILS ABSOLUTE COUNT (BEAKER) (test 0.10 K/ L 0.04-0.36 ydzw=890) BASOPHILS ABSOLUTE COUNT (BEAKER) (test uqrz=584) 0.04 K/ L 0.01-0.08 IMMATURE GRANULOCYTES-RELATIVE PERCENT (BEAKER) 0 % 0-1 (test mwtm=9210) ALPHA FETOPROTEIN (AFP), TUMOR [id number] 17:15:00 Test Item Value Reference Range Comments ALPHA-FETOPROTEIN (BEAKER) (test czdw=4312) 3.3 ng/mL <10.0 [id number] 16:34:00 Test Item Value Reference Range Comments MAGNESIUM (BEAKER) (test sdjo=321) 1.8 mg/dL 1.6-2.6 BASIC METABOLIC [id number] 16:34:00 Test Item Value Reference Range Comments SODIUM (BEAKER) (test 133 meq/L 136-145 ihgw=918) POTASSIUM (BEAKER) (test 3.9 meq/L 3.5-5.1 gsxa=924) CHLORIDE (BEAKER) (test 99 meq/L 98-107 sini=512) CO2 (BEAKER) (test 25 meq/L 22-29 fkhj=459) BLOOD UREA NITROGEN 12 mg/dL 7-21 (BEAKER) (test hxgz=690) CREATININE (BEAKER) (test 0.97 mg/dL 0.57-1.25 afaz=348) GLUCOSE RANDOM (BEAKER) 93 mg/dL 70-105 (test mapl=039) CALCIUM (BEAKER) (test 9.0 mg/dL 8.4-10.2 kkfd=317) EGFR (BEAKER) (test 54 mL/min/1.73 sq m ESTIMATED GFR IS NOT nqkv=0747) ACCURATE CREATININE CLEARANCE IN PREDICTING GLOMERULAR FILTRATION RATE. ESTIMATED GFR IS NOT APPLICABLE FOR DIALYSIS PATIENTS. Specimen slightly ictericHEPATIC FUNCTION [id number] 16:34:00 Test Item Value Reference Range Comments TOTAL PROTEIN (BEAKER) (test dmmd=611) 8.0 gm/dL 6.0-8.3 ALBUMIN (BEAKER) (test uvai=3859) 3.0 g/dL 3.5-5.0 BILIRUBIN TOTAL (BEAKER) (test owsj=128) 1.9 mg/dL 0.2-1.2 BILIRUBIN DIRECT (BEAKER) (test hgrd=673) 0.8 mg/dL 0.1-0.5 ALKALINE PHOSPHATASE (BEAKER) (test xpls=271) 122 U/L 40-150 AST (SGOT) (BEAKER) (test oofh=450) 30 U/L 5-34 ALT (SGPT) (BEAKER) (test ifer=621) 12 U/L 6-55 Specimen slightly ictericPROTHROMBIN [id number] 16:17:00 Test Item Value Reference Range Comments PROTIME (BEAKER) (test uogn=984) 17.3 seconds 11.7-14.7 INR (BEAKER) (test adqt=398) 1.4 <=5.9 RECOMMENDED COUMADIN/WARFARIN INR THERAPY RANGESSTANDARD DOSE: 2.0 - 3.0 Includes: PROPHYLAXIS forvenous thrombosis, systemic embolization; TREATMENT for venous thrombosis and/or pulmonary embolus.HIGH RISK: Target INR is 2.5-3.5 for patients with mechanical heart valves.CBC W/PLT COUNT & AUTO [id number] 16:17:00 Test Item Value Reference Range Comments WHITE BLOOD CELL COUNT (BEAKER) (test lzqn=291) 5.6 K/ L 3.5-10.5 RED BLOOD CELL COUNT (BEAKER) (test lstn=245) 3.83 M/ L 3.93-5.22 HEMOGLOBIN (BEAKER) (test gneb=794) 12.0 GM/DL 11.2-15.7 HEMATOCRIT (BEAKER) (test swqq=715) 36.8 % 34.1-44.9 MEAN CORPUSCULAR VOLUME (BEAKER) (test hcgg=230) 96.1 fL 79.4-94.8 MEAN CORPUSCULAR HEMOGLOBIN (BEAKER) (test 31.3 pg 25.6-32.2 jacg=700) MEAN CORPUSCULAR HEMOGLOBIN CONC (BEAKER) (test 32.6 GM/DL 32.2-35.5 pyub=730) RED CELL DISTRIBUTION WIDTH (BEAKER) (test 15.9 % 11.7-14.4 ykxm=058) PLATELET COUNT (BEAKER) (test rofi=941) 83 K/CU MM 150-450 MEAN PLATELET VOLUME (BEAKER) (test dmaf=088) 11.1 fL 9.4-12.3 NUCLEATED RED BLOOD CELLS (BEAKER) (test 0 /100 WBC 0-0 vfxx=318) NEUTROPHILS RELATIVE PERCENT (BEAKER) (test 54 % ylqm=582) LYMPHOCYTES RELATIVE PERCENT (BEAKER) (test 36 % folg=541) MONOCYTES RELATIVE PERCENT (BEAKER) (test 8 % bxin=366) EOSINOPHILS RELATIVE PERCENT (BEAKER) (test 2 % jcjw=042) BASOPHILS RELATIVE PERCENT (BEAKER) (test 1 % osbm=624) NEUTROPHILS ABSOLUTE COUNT (BEAKER) (test 3.01 K/ L 1.56-6.13 ainc=794) LYMPHOCYTES ABSOLUTE COUNT (BEAKER) (test 1.98 K/ L 1.18-3.74 jexv=017) MONOCYTES ABSOLUTE COUNT (BEAKER) (test vrhn=929) 0.44 K/ L 0.24-0.36 EOSINOPHILS ABSOLUTE COUNT (BEAKER) (test 0.10 K/ L 0.04-0.36 bulb=693) BASOPHILS ABSOLUTE COUNT (BEAKER) (test bzgc=618) 0.04 K/ L 0.01-0.08 IMMATURE GRANULOCYTES-RELATIVE PERCENT (BEAKER) 0 % 0-1 (test wani=1200) ALPHA FETOPROTEIN (AFP), TUMOR [id number] 16:14:00 Test Item Value Reference Range Comments ALPHA-FETOPROTEIN (BEAKER) (test haqf=5237) 5.7 ng/mL <10.0 Effective 07/17/2014: Reference Range ChangeNew: <10.0 Previous: 0.0- [id number] 15:57:00 Test Item Value Reference Range Comments MAGNESIUM (BEAKER) (test olmm=321) 1.9 mg/dL 1.6-2.6 BASIC METABOLIC [id number] 15:57:00 Test Item Value Reference Range Comments SODIUM (BEAKER) (test 139 meq/L 136-145 cutp=151) POTASSIUM (BEAKER) (test 4.5 meq/L 3.5-5.1 oorj=131) CHLORIDE (BEAKER) (test 105 meq/L 98-107 iskw=704) CO2 (BEAKER) (test 25 meq/L 22-29 hyfa=690) BLOOD UREA NITROGEN 15 mg/dL 7-21 (BEAKER) (test pwmq=326) CREATININE (BEAKER) (test 0.95 mg/dL 0.57-1.25 jaze=499) GLUCOSE RANDOM (BEAKER) 86 mg/dL 70-105 (test xgax=711) CALCIUM (BEAKER) (test 9.4 mg/dL 8.4-10.2 sdii=669) EGFR (BEAKER) (test 56 mL/min/1.73 sq m ESTIMATED GFR IS NOT cune=8026) ACCURATE CREATININE CLEARANCE IN PREDICTING GLOMERULAR FILTRATION RATE. ESTIMATED GFR IS NOT APPLICABLE FOR DIALYSIS PATIENTS. Specimen slightly ictericHEPATIC FUNCTION [id number] 15:57:00 Test Item Value Reference Range Comments TOTAL PROTEIN (BEAKER) (test nnyw=959) 7.6 gm/dL 6.0-8.3 ALBUMIN (BEAKER) (test evbp=5499) 3.2 g/dL 3.5-5.0 BILIRUBIN TOTAL (BEAKER) (test khlr=935) 1.8 mg/dL 0.2-1.2 BILIRUBIN DIRECT (BEAKER) (test dfqt=307) 0.8 mg/dL 0.1-0.5 ALKALINE PHOSPHATASE (BEAKER) (test xhgn=822) 112 U/L 40-150 AST (SGOT) (BEAKER) (test tilt=224) 33 U/L 5-34 ALT (SGPT) (BEAKER) (test vkuq=110) 17 U/L 6-55 Specimen slightly ictericPROTHROMBIN [id number] 15:56:00 Test Item Value Reference Range Comments PROTIME (BEAKER) (test vowk=968) 16.7 seconds 11.7-14.7 INR (BEAKER) (test zzar=600) 1.4 <=5.9 RECOMMENDED COUMADIN/WARFARIN INR THERAPY RANGESSTANDARD DOSE: 2.0 - 3.0 Includes: PROPHYLAXIS forvenous thrombosis, systemic embolization; TREATMENT for venous thrombosis and/or pulmonary embolus.HIGH RISK: Target INR is 2.5-3.5 for patients with mechanical heart valves.CBC W/PLT COUNT & AUTO [id number] 15:56:00 Test Item Value Reference Range Comments WHITE BLOOD CELL COUNT (BEAKER) (test zorw=583) 5.3 K/ L 4.0-10.0 RED BLOOD CELL COUNT (BEAKER) (test rmjw=320) 4.21 M/ L 4.00-5.00 HEMOGLOBIN (BEAKER) (test fkvw=472) 14.1 GM/DL 12.0-15.0 HEMATOCRIT (BEAKER) (test fcmp=741) 41.7 % 36.0-45.0 MEAN CORPUSCULAR VOLUME (BEAKER) (test haln=342) 99.1 fL 82.0-99.0 MEAN CORPUSCULAR HEMOGLOBIN (BEAKER) (test 33.4 pg 27.0-33.0 lhfc=998) MEAN CORPUSCULAR HEMOGLOBIN CONC (BEAKER) (test 33.7 GM/DL 32.0-36.0 javz=075) RED CELL DISTRIBUTION WIDTH (BEAKER) (test 13.2 % 10.3-14.2 zgde=801) PLATELET COUNT (BEAKER) (test yzgq=477) 77 K/CU MM 150-430 MEAN PLATELET VOLUME (BEAKER) (test kawh=195) 8.4 fL 6.5-10.5 NUCLEATED RED BLOOD CELLS (BEAKER) (test 0 /100 WBC 0-0 neia=156) NEUTROPHILS RELATIVE PERCENT (BEAKER) (test 54 % omeg=394) LYMPHOCYTES RELATIVE PERCENT (BEAKER) (test 33 % vquo=434) MONOCYTES RELATIVE PERCENT (BEAKER) (test 10 % neih=099) EOSINOPHILS RELATIVE PERCENT (BEAKER) (test 3 % wsho=033) BASOPHILS RELATIVE PERCENT (BEAKER) (test 0 % efsm=453) NEUTROPHILS ABSOLUTE COUNT (BEAKER) (test 2.86 K/ L 1.80-8.00 lfxd=206) LYMPHOCYTES ABSOLUTE COUNT (BEAKER) (test 1.77 K/ L 1.48-4.50 zfyi=875) MONOCYTES ABSOLUTE COUNT (BEAKER) (test fifz=337) 0.56 K/ L 0.00-1.30 EOSINOPHILS ABSOLUTE COUNT (BEAKER) (test 0.13 K/ L 0.00-0.50 hqnn=977) BASOPHILS ABSOLUTE COUNT (BEAKER) (test pjku=500) 0.02 K/ L 0.00-0.20 [id number] 11:05:00 Test Item Value Reference Range Comments POC-CREATININE (BEAKER) 0.9 mg/dL 0.6-1.3 TESTED AT [facility] [address] [facility] (test ognb=3340) [facility] [address] POC-EGFR (BEAKER) (test 59 mL/min/1.73M2 tdix=8639)
[2018-12-29] MEDS: PANTOPRAZOLE 40MG TABLET PO SCH (20:40)
[2018-12-29] MEDS: JUVEN PACKET PO SCH (20:53)
[2018-12-29] MEDS: LACTULOSE 20 GM/30 ML UCUP PO SCH (20:53)
[2018-12-29] MEDS: MUPIROCIN 2% OINT 22GM TUBE TOP SCH (20:53)
[2018-12-29] MEDS: ENSURE ENLIVE 237 ML CAN PO SCH (20:53)
[2018-12-29] MEDS: DOCUSATE NA 100 MG CAP PO SCH (20:54)
[2018-12-29] MEDS: Rifaximin 550 MG Tab PO SCH (20:54)
[2018-12-29] MEDS: NYSTATIN PWDR 100000 UNIT/GM TOP SCH (20:54)
[2018-12-29] MEDS: MIDODRINE HCL 5 MG TABLET PO SCH (20:54)
[2018-12-29] MEDS: MAGNESIUM OXIDE 400 MG TAB PO SCH (20:55)
[2018-12-29] MEDS: GABAPENTIN 300 MG CAP PO SCH (20:55)
--- NOTE | 2018-12-30 02:01 | FAST ---
SHIFT START DATE/TIME: 12/29/2018 19:00 (CDT) SHIFT END DATE/TIME: 12/30/2018 07:00 (CDT) NAME EDGARD DÍAZ DATE OF : 1930 DATE OF ADMISSION: 12/29/2018 15:49 (CDT) PHONE: AGE: 88 N# [id number] GENDER: Female ENCOUNTER PHYSICIAN: Dr. Valeriano Flannery M.D. 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 EATING: Activity did not occur on this shift EATING - SCORE: 0-UNK GROOMING: Activity did not occur on this shift GROOMING - SCORE: 0-UNK BATHING: Activity did not occur on this shift BATHING - SCORE: 0-UNK DRESSING - UPPER BODY: Patient is not dressing in public clothing ARTICLES SCORE Total number of steps: 0 DRESSING - UPPER BODY - SCORE: 0-UNK DRESSING - LOWER BODY: Patient is not dressing in public clothing ARTICLES SCORE Total number of steps: 0 DRESSING - LOWER BODY - SCORE: 0-UNK TOILETING: TOILETING - STEP 1: Does the patient require the assistance of a person or device, or need extra time with toileting? Yes . TOILETING - STEP 2: Does the patient require the assistance of a helper? Yes. TOILETING - STEP 3: How much assistance does the patient require from the helper? Hands-on assistance from the helper TOILETING - STEP 4: Of the 3 tasks: 1) Adjusting clothing prior to use, 2) Cleansing of perineal area, 3) Adjusting clot sabine after use; How many tasks does the patient perform WITHOUT assistance of the helper? No tasks; h julius performs all three tasks TOILETING - SCORE: 1-DEP BLADDER MANAGEMENT: BLADDER MANAGEMENT - STEP 1: Does the patient control the bladder completely and intentionally without equipment or devices or med ications, and is always continent? No. BLADDER MANAGEMENT - STEP 2: Does the patient require the assistance of a helper? Yes. BLADDER MANAGEMENT - STEP 3: How much assistance does the patient require from the helper? Patient requires contact assistance fro m the helper BLADDER MANAGEMENT - STEP 4: How much contact assistance does the patient require from the helper? Patient requires minimal assist ance to maintain an external device - by positioning, and the patient performs 75% or more of bladder management tasks, while the helper provides less than 25% of the assistance to position patient on / off bedpan BLADDER MANAGEMENT - SCORE: 4-MIN BOWEL MANAGEMENT: Activity did not occur on this shift BOWEL MANAGEMENT - SCORE: 7-IND TRANSFERS: BED, CHAIR, WHEELCHAIR: Activity did not occur on this shift TRANSFERS: BED, CHAIR, WHEELCHAIR - SCORE: 0-UNK TRANSFERS: TOILET: Activity did not occur on this shift TRANSFERS: TOILET - SCORE: 0-UNK TRANSFERS: SHOWER: Activity did not occur on this shift TRANSFERS: SHOWER - SCORE: 0-UNK TRANSFERS: TUB: Activity did not occur on this shift TRANSFERS: TUB - SCORE: 0-UNK LOCOMOTION: WALK: Activity did not occur on this shift LOCOMOTION: WALK - SCORE: 0-UNK LOCOMOTION: WHEELCHAIR: Activity did not occur on this shift LOCOMOTION: WHEELCHAIR - SCORE: 0-UNK COMPREHENSION: COMPREHENSION: TYPE: Both COMPREHENSION - STEP 1: Does the patient require help from a person or device, or need extra time to understand complex and a bstract ideas (such as current events, finances, discharge planning, medical issues, relationships, e tc)? No. COMPREHENSION - STEP 2: Does the patient need extra time, require an assistive device (such as glasses for visual comprehensi on or a hearing aid for auditory comprehension) or does s/he have mild difficulty understanding compl ex and abstract information? Yes. COMPREHENSION - SCORE: 6-JUAN FRANCISCO EXPRESSION EXPRESSION: TYPE: Both EXPRESSION - STEP 1: Does the patient require help from a person or device, or need extra time expressing complex and abst ract ideas (such as current events, finances, discharge planning, medical issues, relationships, etc) ? No. EXPRESSION - STEP 2: Does the patient need extra time, require an assistive device (such as augmentive communication syste m or a communication board), OR does s/he have mild difficulty expressing complex and abstract ideas (including mild dysarthria or mild word-find problems)? Yes. EXPRESSION - SCORE: 6-JUAN FRANCISCO SOCIAL INTERACTION: SOCIAL INTERACTION - STEP 1: Does the patient require a helper to interact with others in social and therapeutic situations? No. SOCIAL INTERACTION - STEP 2: Does the patient need extra time in social situations, OR does s/he interact with staff, other patien ts, and family members ONLY in structured environments, OR does s/he require medication for social in teraction? Yes, patient needs extra time SOCIAL INTERACTION - SCORE: 6-JUAN FRANCISCO PROBLEM SOLVING: PROBLEM SOLVING - STEP 1: Does the patient need help from a person or device, or need extra time to solve complex problems such as managing a checking account or confronting interpersonal problems? No. PROBLEM SOLVING - STEP 2: Does the patient require extra time to make decisions or solve problems, OR does s/he have slight dif ficulty reading, initiating, or self-correcting in unfamiliar situations? Yes, patient needs extra ti me. PROBLEM SOLVING - SCORE: 6-JUAN FRANCISCO MEMORY: MEMORY - STEP 1: Does the patient need help from a person or device, or need extra time to remember frequently encount ered people, daily routines, and executing requests? No. MEMORY - STEP 2: Does the patient have slight difficulty recognizing frequently encountered people, daily routines, or executing requests without the need for repetition or using self-initiated or environmental cues to remember? Yes. MEMORY - SCORE: 6-JUAN FRANCISCO
[2018-12-30 06:39] LABS: Absolute Lymphocytes (CBC) 1.2 K/uL (0.7-4.9); Absolute Monocytes 0.9 K/uL (0.1-1.3); Absolute Neutrophil 2.8 K/uL (1.8-8.0); Basophils % 0.8 % (0-1.3); Eosinophils % 5.5 % (0-4.4); Lymphocytes % 23.6 % (15.3-44.8); MPV 8.7 fL (7.6-11.3); Monocytes % 16.1 % (3.3-12.3); RBC Red Blood Cell Count 3.01 M/uL (3.86-4.86)
[2018-12-30 06:51] LABS: Albumin 2.2 g/dL (3.4-5.0); Magnesium 2.2 mg/dL (1.8-2.4); Potassium 3.8 mmol/L (3.5-5.1); Prealbumin 5.4 mg/dL (20-40)
[2018-12-30 07:07] LABS: Blood Morphology Comment NOT SEEN (NOT SEEN); Platelet Estimate DECR
[2018-12-30] MEDS: SPIRONOLACTONE 25 MG TABLET PO SCH ×2 (08:00→12:33)
[2018-12-30] MEDS: ENSURE ENLIVE 237 ML CAN PO SCH ×2 (08:00→21:32)
[2018-12-30] MEDS: FUROSEMIDE 40 MG TABLET PO SCH ×2 (08:00→12:34)
[2018-12-30] MEDS: JUVEN PACKET PO SCH ×2 (08:00→21:32)
[2018-12-30] MEDS: MUPIROCIN 2% OINT 22GM TUBE TOP SCH ×2 (08:14→21:31)
[2018-12-30] MEDS: Rifaximin 550 MG Tab PO SCH ×2 (08:16→21:31)
[2018-12-30] MEDS: MIDODRINE HCL 5 MG TABLET PO SCH ×2 (08:16→21:33)
[2018-12-30] MEDS: LACTULOSE 20 GM/30 ML UCUP PO SCH ×2 (08:16→21:30)
[2018-12-30] MEDS: NYSTATIN PWDR 100000 UNIT/GM TOP SCH ×2 (08:16→21:32)
[2018-12-30] MEDS: GABAPENTIN 300 MG CAP PO SCH ×3 (08:18→21:30)
[2018-12-30] MEDS: MAGNESIUM OXIDE 400 MG TAB PO SCH ×2 (08:18→21:30)
[2018-12-30] MEDS ORDERED: MELATONIN 3 MG TABLET PO PRN (09:52)
[2018-12-30] MEDS ORDERED: DOCUSATE NA/SENNA CONC 1 TAB PO PRN (09:52)
[2018-12-30] MEDS ORDERED: TRAMADOL HCL 50 MG TAB PO PRN (09:52)
--- NOTE | 2018-12-30 14:44 | HP ---
Date of Admission: 12/29/2018 Reason For Admission: Debility. History Of Present Illness Ms. Villalta is an 88-year-old female, who is well known to me from her hospital stay downstairs. 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 She requires frequent paracentesis because of elevated portal hypertension. On her last admission she had 7 L drainage and on admission prior was 11 L. When she was downstairs and she had 7 L removed, she became hypotensive with a blood pressure of 70-80s over 40s over 50s. Her mentation became altered. She became difficult to arouse and a code stroke was called. They did an MRI of the brain, which was negative. She was given some Ativan prior to MRI, which probably lead to her prolonged altered mentation. After albumin and IV hydration her blood pressure improved and over the next 24- 48 hours her mentation also started improving. Clinically, she has slowly gotten better. She is more awake and alert. She was at home and doing most of her activities of daily living on her own. Plan is to try to get her back to her functioning level whenever she discharge. At this time she will be admitted to our facility for rehabilitation with physical therapy and speech therapy along with occupational therapy. Hopefully, she will be able to return to her prior level of functioning. The concern is if she continues to decline, she may need hospice care. Hopefully, we can get her strength improved to where we can prolong this from happening. Allergies adhesive tape Allergy (Verified 10/24/18 09:59) Itching morphine Allergy (Verified 10/24/18 09:59) Itching/Hives/Rash Home Medications: Docusate Sodium 1 cap PO BEDTIME 07/11/18 Furosemide [Lasix*] 1 tab PO DAILY 07/11/18 Gabapentin 1 cap PO TID 07/11/18 Iron 28 mg PO BID 07/11/18 Magnesium Oxide [Magnesium] 1 tab PO BID 07/11/18 Potassium Chloride [Klor-Con M10] 1 tab PO BID 07/11/18 Rifaximin [Xifaxan*] 200 mg PO BID 07/11/18 Spironolactone [Aldactone*] 2 tab PO DAILY 07/11/18 Docusate Sodium 100 mg PO BEDTIME 12/07/18 Lactulose [Cephulac*] 30 ml PO BID 12/07/18 - Past Medical/Surgical History -: liver cirrhosis -: colon cancer -: hep c -: back surgery -: knee surgery -: gallbladder removal -: tonsillectomy -: hysterectomy - Family History Father : Heart disease Mother : lived till 99 - Social History Smoking Status: Never smoker Alcohol use: No CD- Drugs: No Caffeine use: Yes Place of Residence: Home Review of Systems 10-point ROS is otherwise unremarkable Physical Examination - Vital Signs Temperature: 97.3 F Blood Pressure: 96/51 Pulse: 94 Respirations: 20 Pulse Ox (%): 98 - Physical Exam General: Alert, In no apparent distress, Oriented x3 HEENT: Atraumatic, PERRLA, Mucous membr. moist/pink, EOMI, Sclerae nonicteric Neck: Supple, 2+ carotid pulse no bruit, No LAD, JVD distended Respiratory: Diminished, Clear bilaterally Cardiovascular: Regular rate/rhythm, Normal S1 S2 Gastrointestinal: Normal bowel sounds, Soft and benign, slightly distended, No tenderness Musculoskeletal: No tenderness, minimal swelling Integumentary: She has some skin tears; otherwise and bruising, no deformities Neurological: Normal speech, Normal tone, Sensation intact, Cranial nerves 3-12 intact, Normal affect, Abnormal gait, Abnormal strength Lymphatics: No axilla or inguinal lymphadenopathy Laboratory Data: Labs have been reviewed. Assessment: 1. Patient with debility. 2. Generalized weakness. 3. Hepatic encephalopathy, poor. 4. Hypertensive encephalopathy. 5. Portal Hypertension with refractory ascites 6. Periodic confusion along with aphasia and dysphagia. Plan: 1. At this time is to monitor hemodynamics closely. 2. Continue medication for cirrhosis. 3. Physical therapy, occupational therapy, and speech therapy. 4. Increase nutrition and moderate high protein intake. 5. Monitor liver function testing. 6. Plan is to improve strength to normal level of functioning prior to admission to the hospital and where she can do her activities of daily living and she will be safe to go home and take care of herself. 7. Anticipate discharge in 7-10 days. Discharge Plan: Home Plan to discharge in: 7-10 days - Advance Directives Does patient have a Living Will: No Does patient have a Durable POA for Healthcare: No - Code Status/Comfort Care Code Status Assessed: Yes Code Status: Full Code Critical Care: No Time Spent Managing PTS Care (In Minutes): 40 DONY Voice ID: [id number] MTDD
[2018-12-30] MEDS: PANTOPRAZOLE 40MG TABLET PO SCH (21:30)
[2018-12-30] MEDS: DOCUSATE NA 100 MG CAP PO SCH (21:30)
[2018-12-30] MEDS: PROMOD 30 ML DOSE PO SCH (21:33)
--- NOTE | 2018-12-30 22:05 | PN ---
Date of Progress Note: 12/30/2018 Subjective: The patient was seen and examined. Chart reviewed and case discussed with RN. Medications: List reviewed. Physical Examination: Vital Signs: Temperature 98.3, heart rate 89, blood pressure 98/53, respirations 18, O2 96% on room air. General: Awake, alert, oriented x3. Elderly female, frail. CV: S1, S2. Regular rate and rhythm. Peripheral pulses present. Respiratory: Moving air well bilaterally. No wheezing. Gastrointestinal: Abdomen is distended. Minimal ascites. Bowel sounds positive. Extremities: No clubbing or cyanosis. Pedal edema present. Neurologic: Nonfocal. Laboratory Data: Sodium 134, potassium 2.8, chloride 100, CO2 30, BUN 44, creatinine 1.33, glucose 1 03, calcium 8, magnesium 2.2, albumin 2.2. WBC 5.3, H and H 9.4/28, platelets 92. Assessment: An 88-year-old female with: 1.Acute hepatic encephalopathy, resolved. 2.Hepatorenal syndrome, improving. 3.Acute hypotension, asymptomatic. 4.Liver cirrhosis secondary to hepatitis C, status post recent paracentesis. We will continue on di uretics. Monitor abdominal girth. 5.Hepatitis C, chronic without coma, however with cirrhosis. 6.Hypokalemia. 7.Severe protein-calorie malnutrition. Albumin 2.2. 8.Generalized weakness. The patient currently in rehab. Physical therapy as per rehab orders. Plan: Follow along with you. Thank you for allowing us to participate in the care of your patient. /GLYNN Voice ID: [id number] Report ID: [id number]
--- NOTE | 2018-12-31 02:04 | FAST ---
SHIFT START DATE/TIME: 12/30/2018 19:00 (CDT) SHIFT END DATE/TIME: 12/31/2018 07:00 (CDT) NAME EDGARD DÍAZ DATE OF : 1930 DATE OF ADMISSION: 12/29/2018 15:49 (CDT) PHONE: AGE: 88 N# [id number] GENDER: Female ENCOUNTER PHYSICIAN: Dr. Valeriano Flannery M.D. 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 EATING: Activity did not occur on this shift EATING - SCORE: 0-UNK GROOMING: Activity did not occur on this shift GROOMING - SCORE: 0-UNK BATHING: Activity did not occur on this shift BATHING - SCORE: 0-UNK DRESSING - UPPER BODY: Patient is not dressing in public clothing ARTICLES SCORE Total number of steps: 0 DRESSING - UPPER BODY - SCORE: 0-UNK DRESSING - LOWER BODY: Patient is not dressing in public clothing ARTICLES SCORE Total number of steps: 0 DRESSING - LOWER BODY - SCORE: 0-UNK TOILETING: TOILETING - STEP 1: Does the patient require the assistance of a person or device, or need extra time with toileting? Yes . TOILETING - STEP 2: Does the patient require the assistance of a helper? Yes. TOILETING - STEP 3: How much assistance does the patient require from the helper? Hands-on assistance from the helper TOILETING - STEP 4: Of the 3 tasks: 1) Adjusting clothing prior to use, 2) Cleansing of perineal area, 3) Adjusting clot sabine after use; How many tasks does the patient perform WITHOUT assistance of the helper? No tasks; h julius performs all three tasks TOILETING - SCORE: 1-DEP BLADDER MANAGEMENT: BLADDER MANAGEMENT - STEP 1: Does the patient control the bladder completely and intentionally without equipment or devices or med ications, and is always continent? No. BLADDER MANAGEMENT - STEP 2: Does the patient require the assistance of a helper? Yes. BLADDER MANAGEMENT - STEP 3: How much assistance does the patient require from the helper? Patient requires contact assistance fro m the helper BLADDER MANAGEMENT - STEP 4: How much contact assistance does the patient require from the helper? Patient requires minimal assist ance to maintain an external device - by positioning, and the patient performs 75% or more of bladder management tasks, while the helper provides less than 25% of the assistance to position patient on / off bedpan BLADDER MANAGEMENT - SCORE: 4-MIN BOWEL MANAGEMENT: Activity did not occur on this shift BOWEL MANAGEMENT - SCORE: 7-IND TRANSFERS: BED, CHAIR, WHEELCHAIR: TRANSFERS: BED, CHAIR, WHEELCHAIR - STEP 1: Does the patient require assistance of a person or device, or need extra time with bed, chair, or whe elchair transfers? Yes. TRANSFERS: BED, CHAIR, WHEELCHAIR - STEP 2: Does the patient require the assistance of a helper? Yes. TRANSFERS: BED, CHAIR, WHEELCHAIR - STEP 3: How much assistance does the patient require from the helper? Lifting of the patient TRANSFERS: BED, CHAIR, WHEELCHAIR - STEP 4: Does the helper lift the patient ONLY up? ONLY down? Up AND Down? ONLY up. TRANSFERS: BED, CHAIR, WHEELCHAIR - SCORE: 3-MOD TRANSFERS: TOILET: TRANSFERS: TOILET - STEP 1: Does the patient require the assistance of a person or device, or need extra time with toilet transfe rs? Yes. TRANSFERS: TOILET - STEP 2: Does the patient require the assistance of a helper? Yes. TRANSFERS: TOILET - STEP 3: How much assistance does the patient require from the helper? Patient performs half or more of the tr ansferring tasks TRANSFERS: TOILET - STEP 4: Does the patient need only incidental help such as contact guard or steadying during toilet transfer? No. Patient needs more than incidental help TRANSFERS: TOILET - SCORE: 3-MOD TRANSFERS: SHOWER: Activity did not occur on this shift TRANSFERS: SHOWER - SCORE: 0-UNK TRANSFERS: TUB: Activity did not occur on this shift TRANSFERS: TUB - SCORE: 0-UNK LOCOMOTION: WALK: Activity did not occur on this shift LOCOMOTION: WALK - SCORE: 0-UNK LOCOMOTION: WHEELCHAIR: Activity did not occur on this shift LOCOMOTION: WHEELCHAIR - SCORE: 0-UNK COMPREHENSION: COMPREHENSION: TYPE: Both COMPREHENSION - STEP 1: Does the patient require help from a person or device, or need extra time to understand complex and a bstract ideas (such as current events, finances, discharge planning, medical issues, relationships, e tc)? Yes. COMPREHENSION - STEP 2: Does the patient require help to understand questions or statements about basic needs or ideas (such as hunger, thirst, sleep, safety, daily schedule, room location, or discomfort) half or more of the t fausto? No. COMPREHENSION - STEP 3: How often does the patient need help to understand directions and conversation about basic needs? Les s than 10% of the time COMPREHENSION - SCORE: 5-SUP EXPRESSION EXPRESSION: TYPE: Both EXPRESSION - STEP 1: Does the patient require help from a person or device, or need extra time expressing complex and abst ract ideas (such as current events, finances, discharge planning, medical issues, relationships, etc) ? No. EXPRESSION - STEP 2: Does the patient need extra time, require an assistive device (such as augmentive communication syste m or a communication board), OR does s/he have mild difficulty expressing complex and abstract ideas (including mild dysarthria or mild word-find problems)? Yes. EXPRESSION - SCORE: 6-JUAN FRANCISCO SOCIAL INTERACTION: SOCIAL INTERACTION - STEP 1: Does the patient require a helper to interact with others in social and therapeutic situations? No. SOCIAL INTERACTION - STEP 2: Does the patient need extra time in social situations, OR does s/he interact with staff, other patien ts, and family members ONLY in structured environments, OR does s/he require medication for social in teraction? Yes, patient needs extra time SOCIAL INTERACTION - SCORE: 6-JUAN FRANCISCO PROBLEM SOLVING: PROBLEM SOLVING - STEP 1: Does the patient need help from a person or device, or need extra time to solve complex problems such as managing a checking account or confronting interpersonal problems? Yes. PROBLEM SOLVING - STEP 2: Does the patient solve basic routine problems half or more of the time? Yes. PROBLEM SOLVING - STEP 3: How often does the patient need help to solve basic routine problems? Less than 10% of the time PROBLEM SOLVING - SCORE: 5-SUP MEMORY: MEMORY - STEP 1: Does the patient need help from a person or device, or need extra time to remember frequently encount ered people, daily routines, and executing requests? Yes. MEMORY - STEP 2: How often does the patient need help to remember frequently encountered people, daily routines, and e xecuting requests? Less than 10% of the time MEMORY - SCORE: 5-SUP
[2018-12-31] MEDS: LACTULOSE 20 GM/30 ML UCUP PO SCH ×2 (08:04→20:28)
[2018-12-31] MEDS: Rifaximin 550 MG Tab PO SCH (08:05)
[2018-12-31] MEDS: GABAPENTIN 300 MG CAP PO SCH ×3 (08:06→20:25)
[2018-12-31] MEDS: SPIRONOLACTONE 25 MG TABLET PO SCH (08:06)
[2018-12-31] MEDS: FUROSEMIDE 40 MG TABLET PO SCH (08:07)
[2018-12-31] MEDS: FERROUS SULFATE 325 MG TAB PO SCH (08:07)
[2018-12-31] MEDS: FE SULF/FA/VIT B COMP & C TAB PO SCH (08:07)
[2018-12-31] MEDS: MAGNESIUM OXIDE 400 MG TAB PO SCH ×2 (08:07→20:26)
[2018-12-31] MEDS: MIDODRINE HCL 5 MG TABLET PO SCH ×2 (08:07→20:26)
[2018-12-31] MEDS: JUVEN PACKET PO SCH ×2 (08:08→20:24)
[2018-12-31] MEDS: ENSURE ENLIVE 237 ML CAN PO SCH ×3 (08:08→20:24)
[2018-12-31] MEDS: PROMOD 30 ML DOSE PO SCH ×2 (08:09→20:24)
[2018-12-31] MEDS: NYSTATIN PWDR 100000 UNIT/GM TOP SCH ×2 (08:09→20:24)
--- NOTE | 2018-12-31 08:29 | FAST ---
ENCOUNTER DATE AND TIME: 12/30/2018 08:00 (CDT) NAME EDGARD DÍAZ DATE OF : 1930 DATE OF ADMISSION: 12/29/2018 15:49 (CDT) PHONE: AGE: 88 N# [id number] GENDER: Female ENCOUNTER PHYSICIAN: Dr. Valeriano Flannery M.D. 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 EATING: Activity did not occur on this shift EATING - SCORE: 0-UNK GROOMING: Comb/brush hair Oral care Wash, rinse, and dry face Wash, rinse, and dry hands GROOMING - STEP 1: Does the patient require the assistance of a person or device, or need extra time when grooming? No. GROOMING - SCORE: 7-IND BATHING: Abdomen Buttocks Chest Left arm Left lower leg and foot Left upper leg Perineal area Right arm Right lower leg and foot Right upper leg BATHING - STEP 1: Does the patient require the assistance of a person or device, or need extra time when bathing? Yes. BATHING - STEP 2: Does the patient require the assistance of a helper? Yes. BATHING - STEP 3: How much assistance does the patient require from the helper? More than just incidental help BATHING - STEP 4: What percent of the body parts did the patient bathe WITHOUT the helper? Half or more of the body par ts BATHING - SCORE: 3-MOD DRESSING - UPPER BODY: Bra (three steps) Button down/zippered sweater (four steps) T-shirt/pullover shirt (four steps) ARTICLES SCORE Total number of steps: 11 DRESSING - UPPER BODY - STEP 1: Does the patient require help from a person or device, or need extra time when dressing above the [address]? Yes. DRESSING - UPPER BODY - STEP 2: Does the patient require the assistance of a helper? Yes. DRESSING - UPPER BODY - STEP 3: Does the helper touch the patient while dressing? Yes. DRESSING - UPPER BODY - STEP 4: How many of the total steps does the patient complete on his/her own? 10 DRESSING - UPPER BODY - SCORE: 4-MIN DRESSING - LOWER BODY: Sock - Left foot (one step) Sock - Right foot (one step) Underwear (three steps) ARTICLES SCORE Total number of steps: 5 DRESSING - LOWER BODY - STEP 1: Does the patient require help from a person or device, or need extra time when dressing below the [address]? Yes. DRESSING - LOWER BODY - STEP 2: Does the patient require the assistance of a helper? Yes. DRESSING - LOWER BODY - STEP 3: Does the helper touch the patient while dressing? Yes. DRESSING - LOWER BODY - STEP 4: How many of the total steps does the patient complete on his/her own? 1 DRESSING - LOWER BODY - STEP 5: Does patient require total assistance for dressing below the waist such as the helper holding clothin g and performing basically all the activities? No. DRESSING - LOWER BODY - SCORE: 2-MAX TOILETING: TOILETING - STEP 1: Does the patient require the assistance of a person or device, or need extra time with toileting? Yes . TOILETING - STEP 2: Does the patient require the assistance of a helper? Yes. TOILETING - STEP 3: How much assistance does the patient require from the helper? Hands-on assistance from the helper TOILETING - STEP 4: Of the 3 tasks: 1) Adjusting clothing prior to use, 2) Cleansing of perineal area, 3) Adjusting clot sabine after use; How many tasks does the patient perform WITHOUT assistance of the helper? No tasks; h elper performs all three tasks TOILETING - SCORE: 1-DEP BLADDER MANAGEMENT: Activity did not occur on this shift BLADDER MANAGEMENT - SCORE: 7-IND BOWEL MANAGEMENT: Activity did not occur on this shift BOWEL MANAGEMENT - SCORE: 7-IND TRANSFERS: BED, CHAIR, WHEELCHAIR: Activity did not occur on this shift TRANSFERS: BED, CHAIR, WHEELCHAIR - SCORE: 0-UNK TRANSFERS: TOILET: TRANSFERS: TOILET - STEP 1: Does the patient require the assistance of a person or device, or need extra time with toilet transfe rs? Yes. TRANSFERS: TOILET - STEP 2: Does the patient require the assistance of a helper? Yes. TRANSFERS: TOILET - STEP 3: How much assistance does the patient require from the helper? Patient performs less than half of the transferring tasks TRANSFERS: TOILET - STEP 4: Does the patient require total assistance for the toilet transfer such as the helper doing basically all the lifting? No. TRANSFERS: TOILET - SCORE: 2-MAX TRANSFERS: SHOWER: Activity did not occur on this shift TRANSFERS: SHOWER - SCORE: 0-UNK TRANSFERS: TUB: TRANSFERS: TUB - STEP 1: Does the patient require the assistance of a person or device, or need extra time with tub transfers? Yes. TRANSFERS: TUB - STEP 2: Does the patient require the assistance of a helper? Yes. TRANSFERS: TUB - STEP 3: How much assistance does the patient require from the helper? More than incidental help TRANSFERS: TUB - STEP 4: How much more help does the patient require from the helper? [place] lifts patient up out of the wheel chair AND down onto the tub bench TRANSFERS: TUB - SCORE: 2-MAX LOCOMOTION: WALK: Activity did not occur on this shift LOCOMOTION: WALK - SCORE: 0-UNK LOCOMOTION: WHEELCHAIR: Activity did not occur on this shift LOCOMOTION: WHEELCHAIR - SCORE: 0-UNK LOCOMOTION: STAIRS: Activity did not occur on this shift LOCOMOTION: STAIRS - SCORE: 0-UNK COMPREHENSION: COMPREHENSION: TYPE: Both COMPREHENSION - STEP 1: Does the patient require help from a person or device, or need extra time to understand complex and a bstract ideas (such as current events, finances, discharge planning, medical issues, relationships, e tc)? No. COMPREHENSION - STEP 2: Does the patient need extra time, require an assistive device (such as glasses for visual comprehensi on or a hearing aid for auditory comprehension) or does s/he have mild difficulty understanding compl ex and abstract information? Yes. COMPREHENSION - SCORE: 6-JUAN FRANCISCO EXPRESSION EXPRESSION: TYPE: Both EXPRESSION - STEP 1: Does the patient require help from a person or device, or need extra time expressing complex and abst ract ideas (such as current events, finances, discharge planning, medical issues, relationships, etc) ? No. EXPRESSION - STEP 2: Does the patient need extra time, require an assistive device (such as augmentive communication syste m or a communication board), OR does s/he have mild difficulty expressing complex and abstract ideas (including mild dysarthria or mild word-find problems)? Yes. EXPRESSION - SCORE: 6-JUAN FRANCISCO SOCIAL INTERACTION: SOCIAL INTERACTION - STEP 1: Does the patient require a helper to interact with others in social and therapeutic situations? No. SOCIAL INTERACTION - STEP 2: Does the patient need extra time in social situations, OR does s/he interact with staff, other patien ts, and family members ONLY in structured environments, OR does s/he require medication for social in teraction? Yes, patient needs extra time SOCIAL INTERACTION - SCORE: 6-JUAN FRANCISCO PROBLEM SOLVING: PROBLEM SOLVING - STEP 1: Does the patient need help from a person or device, or need extra time to solve complex problems such as managing a checking account or confronting interpersonal problems? Yes. PROBLEM SOLVING - STEP 2: Does the patient solve basic routine problems half or more of the time? Yes. PROBLEM SOLVING - STEP 3: How often does the patient need help to solve basic routine problems? 10%-24% of the time PROBLEM SOLVING - SCORE: 4-MIN MEMORY: MEMORY - STEP 1: Does the patient need help from a person or device, or need extra time to remember frequently encount ered people, daily routines, and executing requests? Yes. MEMORY - STEP 2: How often does the patient need help to remember frequently encountered people, daily routines, and e xecuting requests? 25% - 49% of the time MEMORY - SCORE: 3-MOD SIGNATURE PANEL: The following modified sections: Eating - Score, Grooming - Score, Bathing - Score, Dressing - Upper Body - Score, Dressing - Lower Body - Score, Toileting - Score, Transfers: Bed, Chair, Wheelchair - S core, Transfers: Toilet - Score, Transfers: Shower - Score, Transfers: Tub - Score, Comprehension - S core, Expression - Score, Social Interaction - Score, Problem Solving - Score, Memory - Score were [e lectronically] signed by Silvia Kim OT on WedDec 31 2018 08:28:44 T-0500 ([facility])
[2018-12-31] MEDS: MUPIROCIN 2% OINT 22GM TUBE TOP SCH ×2 (08:55→20:28)
[2018-12-31] MEDS ORDERED: SODIUM CHLORIDE 0.9% 10ML INJ IV PRN (14:00)
[2018-12-31] MEDS ORDERED: FUROSEMIDE 40 MG/4 ML VIAL IV ONE (14:30)
[2018-12-31] MEDS: SODIUM CHLORIDE 0.9% 10ML INJ IV PRN (14:54)
--- NOTE | 2018-12-31 15:36 | PN ---
Date of NEPHROLOGY CONSULT Note: 12/31/2018 This is duplicate see dictated consult note SANTO/GLYNN Voice ID: [id number] Report ID: [id number] MTDD
--- NOTE | 2018-12-31 16:18 | CON ---
Date of Consultation: 12/31/2018 Chief Complaint: Chronic kidney disease, chronic hepatorenal syndrome associated with prerenal azotemia accelerated by present of tense ascites. The patient received paracenteses. Prior to this admission she was admitted to telemetry floor for tense ascites. She is currently admitted to rehab for debility and deconditioning. The patient has history of hepatitis C and liver cirrhosis from blood transfusion many years ago. She became hypotensive recently and received IV albumin after paracenteses was done with 7 L fluids removed. The patient had altered mental status and code stroke was called, and she had MRI which was negative. Likely, the patient declined due to benzodiazepine. She was medicated with Ativan for MRI procedure. The patient is undergoing rehab. Today she denies complaints. Review of Systems: General: Denies fever, chills. Eyes: Denies new vision changes. Ears, Nose, mouth and Throat: Denies sore throat, earache. Respiratory: Denies PND, orthopnea. Cardiovascular: Denies chest pain, palpitation. GI: Denies nausea, vomiting. : Denies dysuria, hematuria. Musculoskeletal: Has generalized weakness. Denies gout. All other systems reviewed and all are negative. Past Medical History: Chronic kidney disease stage 2/3, benign nephrosclerosis , hepatorenal syndrome, hepatic encephalopathy, status post tense ascites, liver cirrhosis, hepatitis C, deconditioning, hypoalbuminemia. Social History: Denies tobacco, alcohol, or illicit drugs. Family History: No kidney disease in the family. Physical Examination: General: The patient is awake, alert, follows commands. Eyes: Anicteric sclerae. EOMI. Ears, Nose, mouth and Throat: Oral mucosa moist. No pallor. Neck: Supple. No JVD. No bruits. Lungs: Clear to auscultation bilaterally. Heart: S1, S2. RRR, no pericardial friction rub Abdomen: Soft. Ascites present. Extremities: Edema present in both legs. No cellulitis. SKIN: warm and dry , no cellulitis Impression And Plan: 1. Saxpb-bx-bcmirhe kidney injury. Serum creatinine fluctuating due to diuretics. The patient will continue low-sodium diet and diuretics to control uremia and prevent tense ascites. 2. The patient has history of peripheral neuropathy. She will continue Neurontin. 3. The patient has severe deconditioning. Continue physical therapy as tolerated. 4. Hepatitis C, liver cirrhosis. Monitor ammonia level. 5. Altered mental status. History of hepatic encephalopathy. Currently, mental status at baseline improved. 6. The patient has chronic and acute kidney injury with hepatorenal syndrome and benign nephrosclerosis. Avoid nonsteroidal anti-inflammatory medication. SANTO/GLYNN Voice ID: [id number] Report ID: [id number] MTDD
--- NOTE | 2018-12-31 16:21 | FAST ---
ENCOUNTER DATE AND TIME: 12/31/2018 08:00 (CDT) NAME EDGARD DÍAZ DATE OF : 1930 DATE OF ADMISSION: 12/29/2018 15:49 (CDT) PHONE: AGE: 88 N# [id number] GENDER: Female ENCOUNTER PHYSICIAN: Dr. Valeriano Flannery M.D. 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 EATING: Activity did not occur on this shift EATING - SCORE: 0-UNK GROOMING: Comb/brush hair Oral care Wash, rinse, and dry face GROOMING - STEP 1: Does the patient require the assistance of a person or device, or need extra time when grooming? No. GROOMING - SCORE: 7-IND BATHING: Activity did not occur on this shift BATHING - SCORE: 0-UNK DRESSING - UPPER BODY: Bra (three steps) T-shirt/pullover shirt (four steps) ARTICLES SCORE Total number of steps: 7 DRESSING - UPPER BODY - STEP 1: Does the patient require help from a person or device, or need extra time when dressing above the [address] st? Yes. DRESSING - UPPER BODY - STEP 2: Does the patient require the assistance of a helper? Yes. DRESSING - UPPER BODY - STEP 3: Does the helper touch the patient while dressing? Yes. DRESSING - UPPER BODY - STEP 4: How many of the total steps does the patient complete on his/her own? 6 DRESSING - UPPER BODY - SCORE: 4-MIN DRESSING - LOWER BODY: Elastic waist pants (three steps) Sock - Left foot (one step) Sock - Right foot (one step) Tied or buckled shoe - Left foot (two steps) Tied or buckled shoe - Right foot (two steps) ARTICLES SCORE Total number of steps: 9 DRESSING - LOWER BODY - STEP 1: Does the patient require help from a person or device, or need extra time when dressing below the vinnie st? Yes. DRESSING - LOWER BODY - STEP 2: Does the patient require the assistance of a helper? Yes. DRESSING - LOWER BODY - STEP 3: Does the helper touch the patient while dressing? Yes. DRESSING - LOWER BODY - STEP 4: How many of the total steps does the patient complete on his/her own? 3 DRESSING - LOWER BODY - STEP 5: Does patient require total assistance for dressing below the waist such as the helper holding clothin g and performing basically all the activities? No. DRESSING - LOWER BODY - SCORE: 2-MAX TOILETING: Activity did not occur on this shift TOILETING - SCORE: 0-UNK BLADDER MANAGEMENT: Activity did not occur on this shift BLADDER MANAGEMENT - SCORE: 7-IND BOWEL MANAGEMENT: Activity did not occur on this shift BOWEL MANAGEMENT - SCORE: 7-IND TRANSFERS: BED, CHAIR, WHEELCHAIR: Activity did not occur on this shift TRANSFERS: BED, CHAIR, WHEELCHAIR - SCORE: 0-UNK TRANSFERS: TOILET: Activity did not occur on this shift TRANSFERS: TOILET - SCORE: 0-UNK TRANSFERS: SHOWER: Activity did not occur on this shift TRANSFERS: SHOWER - SCORE: 0-UNK TRANSFERS: TUB: Activity did not occur on this shift TRANSFERS: TUB - SCORE: 0-UNK LOCOMOTION: WALK: Activity did not occur on this shift LOCOMOTION: WALK - SCORE: 0-UNK LOCOMOTION: WHEELCHAIR: Activity did not occur on this shift LOCOMOTION: WHEELCHAIR - SCORE: 0-UNK LOCOMOTION: STAIRS: Activity did not occur on this shift LOCOMOTION: STAIRS - SCORE: 0-UNK COMPREHENSION: COMPREHENSION: TYPE: Both COMPREHENSION - STEP 1: Does the patient require help from a person or device, or need extra time to understand complex and a bstract ideas (such as current events, finances, discharge planning, medical issues, relationships, e tc)? No. COMPREHENSION - STEP 2: Does the patient need extra time, require an assistive device (such as glasses for visual comprehensi on or a hearing aid for auditory comprehension) or does s/he have mild difficulty understanding compl ex and abstract information? Yes. COMPREHENSION - SCORE: 6-JUAN FRANCISCO EXPRESSION EXPRESSION: TYPE: Both EXPRESSION - STEP 1: Does the patient require help from a person or device, or need extra time expressing complex and abst ract ideas (such as current events, finances, discharge planning, medical issues, relationships, etc) ? No. EXPRESSION - STEP 2: Does the patient need extra time, require an assistive device (such as augmentive communication syste m or a communication board), OR does s/he have mild difficulty expressing complex and abstract ideas (including mild dysarthria or mild word-find problems)? Yes. EXPRESSION - SCORE: 6-JUAN FRANCISCO SOCIAL INTERACTION: SOCIAL INTERACTION - STEP 1: Does the patient require a helper to interact with others in social and therapeutic situations? No. SOCIAL INTERACTION - STEP 2: Does the patient need extra time in social situations, OR does s/he interact with staff, other patien ts, and family members ONLY in structured environments, OR does s/he require medication for social in teraction? Yes, patient needs extra time SOCIAL INTERACTION - SCORE: 6-JUAN FRANCISCO PROBLEM SOLVING: PROBLEM SOLVING - STEP 1: Does the patient need help from a person or device, or need extra time to solve complex problems such as managing a checking account or confronting interpersonal problems? Yes. PROBLEM SOLVING - STEP 2: Does the patient solve basic routine problems half or more of the time? Yes. PROBLEM SOLVING - STEP 3: How often does the patient need help to solve basic routine problems? Less than 10% of the time PROBLEM SOLVING - SCORE: 5-SUP MEMORY: MEMORY - STEP 1: Does the patient need help from a person or device, or need extra time to remember frequently encount ered people, daily routines, and executing requests? Yes. MEMORY - STEP 2: How often does the patient need help to remember frequently encountered people, daily routines, and e xecuting requests? Less than 10% of the time MEMORY - SCORE: 5-SUP SIGNATURE PANEL: The following modified sections: Eating - Score, Grooming - Score, Bathing - Score, Dressing - Upper Body - Score, Dressing - Lower Body - Score, Toileting - Score, Transfers: Bed, Chair, Wheelchair - S core, Transfers: Toilet - Score, Transfers: Shower - Score, Transfers: Tub - Score, Comprehension - S core, Expression - Score, Social Interaction - Score, Problem Solving - Score, Memory - Score were [e lectronically] signed by Silvia Kim OT on WedDec 31 2018 16:20:21 GMT-0500 ([facility])
--- NOTE | 2018-12-31 17:56 | PN ---
Date of Progress Note: 12/31/2018 Subjective: Patient is seen and examined. Chart reviewed and case discussed with RN. The patient f eels good, starting to have some abdominal distention. Working well with rehab. Medications: List reviewed. Physical Examination: Vital Signs: Temperature 97.4, heart rate 99, blood pressure 120/52, respirations 20, O2 is 97% on r oom air. General: Awake, alert, oriented x3. Elderly female, not in any acute distress. CV: S1-S2, no murmurs. Respiratory: Moving air well bilaterally. Diminished breath sounds at the bases. Gastrointestinal: Abdomen is distended. Mild ascites. Bowel sounds positive. Extremities: No clubbing or cyanosis. Trace pedal edema. Neurologic: Nonfocal. Assessment And Plan: An 88-year-old female with; 1.Acute hepatic encephalopathy, resolved. 2.Hepatorenal syndrome. Kidney function was slightly elevated yesterday. We will repeat level in a .m. Continue to monitor. 3.Hypertension, asymptomatic. We will continue diuretics for now. 4.Cirrhosis secondary to hepatitis C, status post recent paracentesis. The patient again starting t o hold more fluid. Weight has gone up by 3 pounds since yesterday. We will give extra dose of Lasix and increase aldactone dose to 25 mg daily. We will continue with sodium and fluid restricted diet. Daily weights. 5.Hepatitis C, chronic without coma. 6.Severe protein-calorie malnutrition. Albumin 2.2. 7.Generalized weakness, improving. Continue with physical therapy. /GLYNN Voice ID: [id number] Report ID: [id number]
[2018-12-31] MEDS: SODIUM CHLORIDE 0.9% 10ML INJ IV SCH (20:00)
[2018-12-31] MEDS ORDERED: SODIUM CHLORIDE 0.9% 10ML INJ IV SCH (20:00)
[2018-12-31] MEDS: DOCUSATE NA 100 MG CAP PO SCH (20:25)
[2018-12-31] MEDS: PANTOPRAZOLE 40MG TABLET PO SCH (20:30)
--- NOTE | 2018-12-31 21:09 | PAPE ---
PATIENT: [facility] MR# [id number] REFERRING DOCTOR dino Aleman EVALUATION DATE AND TIME 12/29/2018 14:05 (CDT) NAME EDGARD DÍAZ DATE OF 1930 AGE 88 PHONE SSN# [id number] GENDER female EVALUATING PHYSICIAN Dr. Marilyn Edmond ADMISSION DIAGNOSIS: Liver Cirrhosis ONSET DATE 12/19/2018 SECONDARY/COMORBID DIAGNOSES TIERED: - N/A Liver Cirrhosis Hepatitis C Colon Cancer POST-ADMISSION FUNCTIONAL/MEDICAL STATUS: - Bladder Same accident frequency: Ind - No accidents in the past 7 days - Bowel Same accident frequency: Ind - No accidents in the past 7 days - Walking Same score based on distance walked: 3(>=150ft) - Wheelchair Same score based on distance traveled: 0(N/A) STATUS CHANGE EVALUATION: No change in Functional or Medical Status is identified compared with Pre-Admission screening. PRE-ADMISSION FUNCTIONAL/MEDICAL STATUS: - Bladder accident frequency: 7-Ind - No accidents in the past 7 days - Bowel accident frequency: 7-Ind - No accidents in the past 7 days - Walking score based on distance walked: 3(>=150ft) - Wheelchair score based on distance traveled: 0(N/A) PATIENT NEEDS CLOSE MEDICAL SUPERVISION BY A REHABILITATION PHYSICIAN FOR: Bowel and Bladder Management Coordination of Treatment Team Medical and Co-Morbidity Management PATIENT REQUIRES 24X7 REHAB NURSING FOR MEDICAL AND FUNCTIONAL MGT. OF THE FOLLOWING DEFICITS: ADL's Ambulation Bowel and Bladder Management Communication Disease Management Medication Management Patient/Family Education Providing Safe Environment Transfers Pain Management DVT Management PATIENT REQUIRES INTENSIVE, COORDINATED INTERDISCIPLINARY APPROACH TO REHAB: Arranging Home Equipment/Services Discharge Planning Family Intervention/Training Wound Specialist/Case Management LIST OF IDENTIFIED AND POTENTIAL PROBLEMS: Alteration in leisure activities Bladder, Incontinence Bowel, Incontinence Infection, Actual or Potential Mobility Impaired Pain, Alteration in Comfort Self Care Deficit Skin Integrity, Actual or Potential Urinary Tract Infection (UTI), Actual or Potential PATIENT COULD BE AT RISK FOR COMPLICATIONS FROM ADVERSE MEDICAL CONDITIONS DUE TO HIS/HER COMORBIDITI ES AND THE RIGORS OF THE INTENSIVE REHABILLITATION PROGRAM. METHODS OR INTERVENTIONS TO AVOID COMPLIC ATIONS INCLUDE: - Infection Clinical staff to assess and manage the signs and symptoms of infection including fever, redness, war mth, etc. - Urinary Tract Infection - Falls Patient will be evaluated for Fall Precautions and will be placed on Fall Precautions as indicated pe r protocol. - Skin Breakdown Nursing will assess skin daily using assessment tool and will place on Skin Breakdown Precautions as indicated per protocol. - Pain Clinical staff may employ non-medication methods such as massage, distraction, decrease stimulus, etc . as needed. Clinical staff will assess patient's pain level every shift per protocol to assess and e nsure pain management effectiveness. Medications will be given and the pain level re-assessed. PRELIMINARY PLAN OF CARE: - Physical Therapy Patient needs Physical Therapy for a daily minimum of 1.5 hours at least 5 out of 7 days, to improve: Mobility, Strengthening, Transfers, Stretching, ROM, Endurance, Ability to manage stairs, Gait, and Balance. - Speech Therapy Patient needs Speech Therapy for a daily minimum of 1 hours at least 4 out of 7 days, to improve: Swa llowing, Cognition, Language Skills, and Compensatory Strategies. - Rehabilitation Nursing Patient requires 24x7 Rehabilitation Nursing for: Pain Issues, Identifying and preventing risk factor s, Monitoring and reporting current medical conditions, Assisting with ambulation and transfer, Morro ting with all ADL-s, Teaching patients about disease process and medications, Family teaching, Provid ing safe environment, Bowel and Bladder Issues, Skin Integrity, and Medication Management. Patient needs Wound Specialist and/or Case Management for: Discharge Planning, Arranging Home Equipmen t or Services, and Family Interventions. - Dietary and Nutrition Services Patient needs Dietary and Nutrition Services for: Adequate Nutrition, Nutritional Supplements, and Nu tritional Education. - Occupational Therapy Patient needs Occupational Therapy for a daily minimum of 1.5 hours at least 5 out of 7 days, to impr ove Activities of Daily Living, including: Eating, Grooming, Bathing, Dressing, Toileting, Toilet Tra nsfers, Community Reintegration, Higher functional activities, Adaptive Equipment, Splinting, Househo ld Tasks, and Other activities as determined. POTENTIAL FUNCTIONAL GOALS FOR PATIENT TO ACHIEVE BY DISCHARGE: - Safety Precaution Patient will remain free from falls or injury at time of discharge. - Bed Mobility Patient will perform bed mobility at 4-Corbin level of assistance. - Transfers Patient will complete transfers from bed to chair at 4-Corbin level of assistance. - Mobility Patient will ambulate 150 ft with 4-Corbin level of assistance with RW. PATIENT REHAB POTENTIAL Expected level of measurable improvement will be of a practical value to patient's functional capacit y or adaptations to impairments Has a viable Discharge Plan Medically appropriate; condition is sufficiently stable to participate in intensive rehab program Patient is able and expected to receive 3 hours of individualized therapy daily on at least 5 of ever y 7 days Patient's prognosis for significant practical improvement within a reasonable period of time appears Good DISCHARGE PLAN: - Estimated Length of Stay (days) 13. - Consensus on plan Discharge plan has been discussed with primary caregiver. Patient/Family is in agreement with the zachery n. Primary caregiver is in agreement with the plan. - Patient/Family Goals Return home with assistance. - Planned Living Setting Upon Discharge Home, to live with Family/Relatives. Transitional Living. CONCLUSION ON REHABILITATION NECESSITY: I have evaluated patient's pre-admission functional status and, comparing it to the patient's post-ad mission functional status now, I conclude that the pre-admission assessment was accurate. Patient's c ondition on admission supports the medical necessity of admission to IRF. It is safe to proceed with patient's therapy program. SIGNATURE PANEL: (CDT)
--- NOTE | 2018-12-31 21:11 | R.HP ---
FACILITY: [facility] ENCOUNTER DATE AND TIME: 12/30/2018 14:08 (CDT) MR#: [id number] NAME EDGARD DÍAZ ADDRESS: [facility] [place][note 2] [place] [address] CITY: [place] [address] [address] PHONE: DATE OF : 1930 AGE: 88 SSN# [id number] GENDER: Female DEXTERITY Right-handed MARITAL STATUS RACE White PRE-HOSPITAL LIVING SETTING 01 - Home (private home/apt. board/care, assisted living, senior care, transitional living) PRE-HOSPITAL LIVING WITH Family/Relatives ENCOUNTER PHYSICIAN: Dr. Marilyn Edmond REFERRING DOCTOR: dino Aleman DATE OF ADMISSION: 12/29/2018 15:49 (CDT) REFERRING FACILITY [facility] HOME TYPE AND DETAILS: Type of home: apartment # of levels in the residence: 1 # of steps to enter the residence: 0 # of steps within the residence: 0 ADMISSION DIAGNOSIS: Liver Cirrhosis ONSET DATE: 12/19/2018 PRIMARY DIAGNOSIS-RELATED SURGERIES: No surgeries related to the primary diagnosis were performed. SECONDARY/COMORBID DIAGNOSES (TIERED): - N/A Liver Cirrhosis Hepatitis C Colon Cancer HISTORY OF PRESENT ILLNESS (HPI): Pt. is a 88 yo Right-handed white female. On 12/19/2018 she was admitted to [facility] with diagnosis Liver Cirrhosis. Her impairment category is Medically Complex Conditions 17 - Terminal Care (17.6). Pre-morbidly, Pt. was independent/mod-I in Self-Care, Sphincter Control, Transfers Control, Locomotio n, Communication, and Social Cognition; and she had good Sphincter Control. Currently, she has deficits of Self-Care, Transfers Control, Locomotion, Endurance, Balance, and Safe ty Awareness. Pt. is now referred to [facility] for acute in-patient rehabilitation in order to maximize patient's functional independence in activities of daily living, strength, ROM, and mobi lity. Patient has realistic goal of being discharged at assistance level 6-Keily to reside at Home with Fam fanny/Relatives. MEDICATION ALLERGIES: Morphine Sulfate ENVIRONMENTAL ALLERGIES: None Known - Substance Allergies None Known - Other Allergies ADHESIVE TAPE PAST MEDICAL HISTORY: Colon Cancer Hepatitis C Liver Cirrhosis PAST SURGICAL HISTORY: Multiple taps BACK SURGERY KNEE SURGERY Cholecystectomy TONSILLECTOMY Hysterectomy FAMILY HISTORY: Family history is not contributory. SOCIAL HISTORY: - Home Living Family/Relatives REVIEW OF SYSTEMS: - Gen No Chills No Fatigue No Fever - Eyes No Double Vision No itchiness - ENMT No Difficulty Swallowing - CVS No Chest Discomfort No Chest Pain No Fatigue No Weight Gain - Resp No Cough No Shortness of Breath - GI Continent No Abdominal Pain No Constipation No Diarrhea - Continent No Kidney Pain No Painful Urination No Urinary Urgency - MSK No Joint Pain No Muscle Cramps No Stiffness - Skin No Itching No Rash No Suspicious Lesions - Neuro No Coordination Difficulty No Difficulty with Concentration No Memory Loss No Seizures No Weakness - Psych No Anxiety No Depression No HIV Exposure No Persistent Infections No Seasonal Allergies - Endo No Cold/Heat Intolerance No Excessive Hunger No Excessive Thirst No Excessive Urination PHYSICAL EXAM - Gen Alert and awake Lying in bed No apparent distress Oriented to: person, time, and place - Vital Signs Temperature: 98.7 F SBP/DBP: 104/52 Pulse: 94 Resp: 20 Vital signs stable, afebrile - CVS RRR VITAL SIGNS Temperature: 98.7 F SBP/DBP: 104/52 Pulse: 94 Resp: 20 Vital signs stable, afebrile NURSING: - Shower allowing shower ACTIVITIES OOB only with supervision FUNCTIONAL STATUS: - Self-Care A. Eating Ind sup B. Grooming Ind sup C. Bathing Ind Corbin D. Dressing - Upper Ind Corbin E. Dressing - Lower Ind modA F. Toileting Ind modA - Sphincter Control G: Bladder control Ind Ind H: Bowel control Ind Ind - Transfers Control I. Bed/Chair/Wheelchair Ind Corbin J. Toilet Ind Corbin K. Tub/Shower Ind ADNO - Locomotion L. Walk/Wheelchair (C) Ind Corbin L. Walk/Wheelchair (W) Ind Corbin M. Stairs Ind ADNO - Communication N. Comprehension (B) Ind Ind O. Expression (B) Ind Ind - Social Cognition P. Social Interaction Ind Ind Q. Problem Solving Ind Ind R. Memory Ind Ind - Endurance Fair - Balance Fair - Safety Awareness Fair CURRENT FUNC. DEFICITS: Self-Care, Transfers Control, Locomotion, Endurance, Balance, and Safety Awareness ASSESSMENT: Pt. is a 88 yo Right-handed white female.On 12/19/2018 she was admitted to [facility] with diagnosis Liver Cirrhosis.Her impairment category is Medically Complex Conditions 17 - T erminal Care (17.6).Pre-morbidly, Pt. was independent/mod-I in Self-Care, Sphincter Control, Transfer s Control, Locomotion, Communication, and Social Cognition; and she had good Sphincter Control.Curren tly, she has deficits of Self-Care, Transfers Control, Locomotion, Endurance, Balance, and Safety Susan reness.Pt. is now referred to [facility] for acute in-patient rehabilitation i n order to maximize patient's functional independence in activities of daily living, strength, ROM, a nd mobility.- Rehab Goal Patient has realistic goal of being discharged at assistance level 6-Keily to reside at Home with Fam fanny/Relatives. REHAB PLAN: - Physical Therapy Gait dysfunction - to improve, our physical therapists will perform initial evaluation of pt's status upon admission and devise an individualized program for Gait Training, and Wheel Chair mobility Inability to transfer - to improve, our physical therapists will perform initial evaluation of pt's s tatus upon admission and devise an individualized program for Bed mobility Need for home safety evaluation - to improve, our physical therapists will perform initial evaluation of pt's status upon admission and devise an individualized program for Home Evaluation Need in caregiver upon discharge - to improve, our physical therapists will perform initial evaluatio n of pt's status upon admission and devise an individualized program for Caregiver Training New precaution - to improve, our physical therapists will perform initial evaluation of pt's status u liz admission and devise an individualized program for Patient precaution education Poor balance - to improve, our physical therapists will perform initial evaluation of pt's status upo n admission and devise an individualized program for Balance Training Poor endurance - to improve, our physical therapists will perform initial evaluation of pt's status u liz admission and devise an individualized program for Endurance Training Weakness - to improve, our physical therapists will perform initial evaluation of pt's status upon ad mission and devise an individualized program for Aquatic Therapy, Neuromuscular Reeducation, and Stre ngthening Achieving independence - to improve, our physical therapists will perform initial evaluation of pt's status upon admission and devise an individualized program for Community Reintegration Activities - Occupational Therapy ADL deficits - to improve, our occupation therapists will perform initial evaluation of pt's status u liz admission and devise an individualized program for Bathing, Bed mobility, Community Reintegration , Cooking, Dressing, Eating, Fine Motor Skills, Grooming, Homemaking, Kitchen Mobility, Laundry, Mera ent Education, Safety Awareness, Splinting - Positioning, Transfers(Toilet, Tub, Shower), and Wheel C hair Management Need for pet caregiver - to improve, our occupation therapists will perform initial evaluation of pt's s tatus upon admission and devise an individualized program for Caregiver Training Weakness - to improve, our occupation therapists will perform initial evaluation of pt's status upon admission and devise an individualized program for Aquatic Therapy, Balance, Endurance, UE ROM, and U E strengthening MEDICAL PLAN: - Diet Type Start mech soft ground - Diet - Liquid Texture Start Regular - Tube Feed Start N/A - Diet - Solid Texture Regular - Shower shower DISCHARGE PLAN: - Estimated Length of Stay (days) 13. - Consensus on plan Discharge plan has been discussed with primary caregiver. Patient/Family is in agreement with the zachery n. Primary caregiver is in agreement with the plan. - Patient/Family Goals Return home with assistance. - Planned Living Setting Upon Discharge Home, to live with Family/Relatives. Transitional Living. SIGNATURE PANEL: (CDT)
[2018-12-31 23:08] LABS: Urine Appearance CLEAR; Urine Bilirubin NEGATIVE (NEG); Urine Blood NEGATIVE (NEG); Urine Color YELLOW; Urine Glucose NEGATIVE (NEG); Urine Protein NEGATIVE (NEG); Urine Urobilinogen 0.2 mg/dL (0.2-1.0)
[2018-12-31 23:34] LABS: Calcium Oxalate Crystals- Ur MODERATE (NONE SEEN); Urine Bacteria <20 /HPF (<20); Urine Culture Reflex Order NOT NEEDED; Urine RBC NONE SEEN /HPF (NONE SEEN)
--- NOTE | 2019-01-01 00:41 | FAST ---
SHIFT START DATE/TIME: 12/31/2018 19:00 (CDT) SHIFT END DATE/TIME: 01/01/2019 07:00 (CDT) NAME EDGARD DÍAZ DATE OF : 1930 DATE OF ADMISSION: 12/29/2018 15:49 (CDT) PHONE: AGE: 88 N# [id number] GENDER: Female ENCOUNTER PHYSICIAN: Dr. Marilny Edmond ADMISSION DIAGNOSIS: - Medically Complex Conditions 17 - Terminal Care (17.6) Liver Cirrhosis. EATING: Activity did not occur on this shift EATING - SCORE: 0-UNK GROOMING: Activity did not occur on this shift GROOMING - SCORE: 0-UNK BATHING: Activity did not occur on this shift BATHING - SCORE: 0-UNK DRESSING - UPPER BODY: Patient is not dressing in public clothing ARTICLES SCORE Total number of steps: 0 DRESSING - UPPER BODY - SCORE: 0-UNK DRESSING - LOWER BODY: Patient is not dressing in public clothing ARTICLES SCORE Total number of steps: 0 DRESSING - LOWER BODY - SCORE: 0-UNK TOILETING: TOILETING - STEP 1: Does the patient require the assistance of a person or device, or need extra time with toileting? Yes . TOILETING - STEP 2: Does the patient require the assistance of a helper? Yes. TOILETING - STEP 3: How much assistance does the patient require from the helper? Hands-on assistance from the helper TOILETING - STEP 4: Of the 3 tasks: 1) Adjusting clothing prior to use, 2) Cleansing of perineal area, 3) Adjusting clot sabine after use; How many tasks does the patient perform WITHOUT assistance of the helper? Three tasks with steadying assistance from the helper TOILETING - SCORE: 4-MIN BLADDER MANAGEMENT: BLADDER MANAGEMENT - STEP 1: Does the patient control the bladder completely and intentionally without equipment or devices or med ications, and is always continent? No. BLADDER MANAGEMENT - STEP 2: Does the patient require the assistance of a helper? Yes. BLADDER MANAGEMENT - STEP 3: How much assistance does the patient require from the helper? Patient requires contact assistance fro m the helper BLADDER MANAGEMENT - STEP 4: How much contact assistance does the patient require from the helper? Patient requires moderate stevie tance, and performs 50% to 75% of bladder management tasks - [place] positions AND holds urinal or bed [place] BLADDER MANAGEMENT - SCORE: 3-MOD BOWEL MANAGEMENT: Activity did not occur on this shift BOWEL MANAGEMENT - SCORE: 7-IND TRANSFERS: BED, CHAIR, WHEELCHAIR: TRANSFERS: BED, CHAIR, WHEELCHAIR - STEP 1: Does the patient require assistance of a person or device, or need extra time with bed, chair, or whe elchair transfers? Yes. TRANSFERS: BED, CHAIR, WHEELCHAIR - STEP 2: Does the patient require the assistance of a helper? Yes. TRANSFERS: BED, CHAIR, WHEELCHAIR - STEP 3: How much assistance does the patient require from the helper? Steadying/guiding assistance TRANSFERS: BED, CHAIR, WHEELCHAIR - SCORE: 4-MIN TRANSFERS: TOILET: TRANSFERS: TOILET - STEP 1: Does the patient require the assistance of a person or device, or need extra time with toilet transfe rs? Yes. TRANSFERS: TOILET - STEP 2: Does the patient require the assistance of a helper? Yes. TRANSFERS: TOILET - STEP 3: How much assistance does the patient require from the helper? Patient performs half or more of the tr ansferring tasks TRANSFERS: TOILET - STEP 4: Does the patient need only incidental help such as contact guard or steadying during toilet transfer? Yes. TRANSFERS: TOILET - SCORE: 4-MIN TRANSFERS: SHOWER: Activity did not occur on this shift TRANSFERS: SHOWER - SCORE: 0-UNK TRANSFERS: TUB: Activity did not occur on this shift TRANSFERS: TUB - SCORE: 0-UNK LOCOMOTION: WALK: Activity did not occur on this shift LOCOMOTION: WALK - SCORE: 0-UNK LOCOMOTION: WHEELCHAIR: Activity did not occur on this shift LOCOMOTION: WHEELCHAIR - SCORE: 0-UNK COMPREHENSION: COMPREHENSION: TYPE: Both COMPREHENSION - STEP 1: Does the patient require help from a person or device, or need extra time to understand complex and a bstract ideas (such as current events, finances, discharge planning, medical issues, relationships, e tc)? No. COMPREHENSION - STEP 2: Does the patient need extra time, require an assistive device (such as glasses for visual comprehensi on or a hearing aid for auditory comprehension) or does s/he have mild difficulty understanding compl ex and abstract information? No. COMPREHENSION - SCORE: 7-IND EXPRESSION EXPRESSION: TYPE: Both EXPRESSION - STEP 1: Does the patient require help from a person or device, or need extra time expressing complex and abst ract ideas (such as current events, finances, discharge planning, medical issues, relationships, etc) ? No. EXPRESSION - STEP 2: Does the patient need extra time, require an assistive device (such as augmentive communication syste m or a communication board), OR does s/he have mild difficulty expressing complex and abstract ideas (including mild dysarthria or mild word-find problems)? No. EXPRESSION - SCORE: 7-IND SOCIAL INTERACTION: SOCIAL INTERACTION - STEP 1: Does the patient require a helper to interact with others in social and therapeutic situations? No. SOCIAL INTERACTION - STEP 2: Does the patient need extra time in social situations, OR does s/he interact with staff, other patien ts, and family members ONLY in structured environments, OR does s/he require medication for social in teraction? Yes, patient needs extra time SOCIAL INTERACTION - SCORE: 6-JUAN FRANCISCO PROBLEM SOLVING: PROBLEM SOLVING - STEP 1: Does the patient need help from a person or device, or need extra time to solve complex problems such as managing a checking account or confronting interpersonal problems? No. PROBLEM SOLVING - STEP 2: Does the patient require extra time to make decisions or solve problems, OR does s/he have slight dif ficulty reading, initiating, or self-correcting in unfamiliar situations? No. PROBLEM SOLVING - SCORE: 7-IND MEMORY: MEMORY - STEP 1: Does the patient need help from a person or device, or need extra time to remember frequently encount ered people, daily routines, and executing requests? No. MEMORY - STEP 2: Does the patient have slight difficulty recognizing frequently encountered people, daily routines, or executing requests without the need for repetition or using self-initiated or environmental cues to remember? No. MEMORY - SCORE: 7-IND SIGNATURE PANEL: The following modified sections: Eating - Score, Grooming - Score, Bathing - Score, Dressing - Upper Body - Score, Dressing - Lower Body - Score, Toileting - Score, Bladder Management - Score, Bowel Man agement - Score, Transfers: Bed, Chair, Wheelchair - Score, Transfers: Toilet - Score, Transfers: Mariangel wer - Score, Transfers: Tub - Score, Locomotion: Walk - Score, Locomotion: Wheelchair - Score, Compre hension - Score, Expression - Score, Social Interaction - Score, Problem Solving - Score, Memory - Sc ore were [electronically] signed by Nellie Griffin CNA on WedJan 01 2019 00:40:38 T-0500 ([facility] ylight Time)
[2019-01-01] MEDS: LACTULOSE 20 GM/30 ML UCUP PO SCH ×2 (09:31→20:52)
[2019-01-01] MEDS: MUPIROCIN 2% OINT 22GM TUBE TOP SCH ×2 (09:32→20:52)
[2019-01-01] MEDS: MIDODRINE HCL 5 MG TABLET PO SCH ×3 (09:33→20:50)
[2019-01-01] MEDS: SPIRONOLACTONE 25 MG TABLET PO SCH (09:33)
[2019-01-01] MEDS: GABAPENTIN 300 MG CAP PO SCH (09:33)
[2019-01-01] MEDS: FE SULF/FA/VIT B COMP & C TAB PO SCH (09:34)
[2019-01-01] MEDS: FUROSEMIDE 40 MG TABLET PO SCH (09:34)
[2019-01-01] MEDS: MAGNESIUM OXIDE 400 MG TAB PO SCH ×2 (09:34→20:50)
[2019-01-01] MEDS: FERROUS SULFATE 325 MG TAB PO SCH (09:34)
[2019-01-01] MEDS: NYSTATIN PWDR 100000 UNIT/GM TOP SCH ×2 (09:35→20:52)
[2019-01-01] MEDS: PROMOD 30 ML DOSE PO SCH ×2 (09:35→20:49)
[2019-01-01] MEDS: JUVEN PACKET PO SCH ×2 (09:35→20:52)
[2019-01-01] MEDS: ENSURE ENLIVE 237 ML CAN PO SCH ×2 (09:35→20:49)
[2019-01-01] MEDS: SODIUM CHLORIDE 0.9% 10ML INJ IV SCH ×2 (09:36→20:53)
--- NOTE | 2019-01-01 11:07 | FAST ---
SHIFT START DATE/TIME: 01/01/2019 07:00 (CDT) SHIFT END DATE/TIME: 01/01/2019 19:00 (CDT) NAME EDGARD DÍAZ DATE OF : 1930 DATE OF ADMISSION: 12/29/2018 15:49 (CDT) PHONE: AGE: 88 SSN# [id number] GENDER: Female ENCOUNTER PHYSICIAN: Dr. Marilyn Edmond ADMISSION DIAGNOSIS: - Medically Complex Conditions 17 - Terminal Care (17.6) Liver Cirrhosis. EATING: EATING - STEP 1: Does the patient require the assistance of a person or device, or need extra time when eating? Yes. EATING - STEP 2: Does the patient require the assistance of a helper? Yes. EATING - STEP 3: Does the patient perform half or more of the eating tasks? Yes. EATING - STEP 4: Does the patient need only supervision, cuing, coaxing OR help to apply an orthosis OR help to cut fo od, open containers, pour liquids, or butter bread? Yes. EATING - SCORE: 5-SUP GROOMING: Comb/brush hair Oral care Wash, rinse, and dry face Wash, rinse, and dry hands GROOMING - STEP 1: Does the patient require the assistance of a person or device, or need extra time when grooming? Yes. GROOMING - STEP 2: Does the patient require the assistance of a helper? No. The patient only requires an assistive devic e, OR takes more than reasonable time to groom, OR there is a concern for safety as the patient groom s GROOMING - SCORE: 6-JUAN FRANCISCO BATHING: Activity did not occur on this shift BATHING - SCORE: 0-UNK DRESSING - UPPER BODY: Activity did not occur on this shift ARTICLES SCORE Total number of steps: 0 DRESSING - UPPER BODY - SCORE: 0-UNK DRESSING - LOWER BODY: Activity did not occur on this shift ARTICLES SCORE Total number of steps: 0 DRESSING - LOWER BODY - SCORE: 0-UNK TOILETING: TOILETING - STEP 1: Does the patient require the assistance of a person or device, or need extra time with toileting? Yes . TOILETING - STEP 2: Does the patient require the assistance of a helper? Yes. TOILETING - STEP 3: How much assistance does the patient require from the helper? Hands-on assistance from the helper TOILETING - STEP 4: Of the 3 tasks: 1) Adjusting clothing prior to use, 2) Cleansing of perineal area, 3) Adjusting clot sabine after use; How many tasks does the patient perform WITHOUT assistance of the helper? Three tasks with steadying assistance from the helper TOILETING - SCORE: 4-MIN BLADDER MANAGEMENT: BLADDER MANAGEMENT - STEP 1: Does the patient control the bladder completely and intentionally without equipment or devices or med ications, and is always continent? No. BLADDER MANAGEMENT - STEP 2: Does the patient require the assistance of a helper? No, patient requires and independently uses an a ssistive device, such as a urinal, bedpan, bedside commode, catheter, absorbent pad, or collecting de vice BLADDER MANAGEMENT - SCORE: 6-JUAN FRANCISCO BOWEL MANAGEMENT: Activity did not occur on this shift BOWEL MANAGEMENT - SCORE: 7-IND TRANSFERS: BED, CHAIR, WHEELCHAIR: TRANSFERS: BED, CHAIR, WHEELCHAIR - STEP 1: Does the patient require assistance of a person or device, or need extra time with bed, chair, or whe elchair transfers? Yes. TRANSFERS: BED, CHAIR, WHEELCHAIR - STEP 2: Does the patient require the assistance of a helper? Yes. TRANSFERS: BED, CHAIR, WHEELCHAIR - STEP 3: How much assistance does the patient require from the helper? Steadying/guiding assistance TRANSFERS: BED, CHAIR, WHEELCHAIR - SCORE: 4-MIN TRANSFERS: TOILET: TRANSFERS: TOILET - STEP 1: Does the patient require the assistance of a person or device, or need extra time with toilet transfe rs? Yes. TRANSFERS: TOILET - STEP 2: Does the patient require the assistance of a helper? Yes. TRANSFERS: TOILET - STEP 3: How much assistance does the patient require from the helper? Patient performs half or more of the tr ansferring tasks TRANSFERS: TOILET - STEP 4: Does the patient need only incidental help such as contact guard or steadying during toilet transfer? Yes. TRANSFERS: TOILET - SCORE: 4-MIN TRANSFERS: SHOWER: Activity did not occur on this shift TRANSFERS: SHOWER - SCORE: 0-UNK TRANSFERS: TUB: Activity did not occur on this shift TRANSFERS: TUB - SCORE: 0-UNK LOCOMOTION: WALK: Activity did not occur on this shift LOCOMOTION: WALK - SCORE: 0-UNK LOCOMOTION: WHEELCHAIR: Activity did not occur on this shift LOCOMOTION: WHEELCHAIR - SCORE: 0-UNK COMPREHENSION: COMPREHENSION: TYPE: Both COMPREHENSION - STEP 1: Does the patient require help from a person or device, or need extra time to understand complex and a bstract ideas (such as current events, finances, discharge planning, medical issues, relationships, e tc)? No. COMPREHENSION - STEP 2: Does the patient need extra time, require an assistive device (such as glasses for visual comprehensi on or a hearing aid for auditory comprehension) or does s/he have mild difficulty understanding compl ex and abstract information? Yes. COMPREHENSION - SCORE: 6-JUAN FRANCISCO EXPRESSION EXPRESSION: TYPE: Both EXPRESSION - STEP 1: Does the patient require help from a person or device, or need extra time expressing complex and abst ract ideas (such as current events, finances, discharge planning, medical issues, relationships, etc) ? No. EXPRESSION - STEP 2: Does the patient need extra time, require an assistive device (such as augmentive communication syste m or a communication board), OR does s/he have mild difficulty expressing complex and abstract ideas (including mild dysarthria or mild word-find problems)? Yes. EXPRESSION - SCORE: 6-JUAN FRANCISCO SOCIAL INTERACTION: SOCIAL INTERACTION - STEP 1: Does the patient require a helper to interact with others in social and therapeutic situations? No. SOCIAL INTERACTION - STEP 2: Does the patient need extra time in social situations, OR does s/he interact with staff, other patien ts, and family members ONLY in structured environments, OR does s/he require medication for social in teraction? Yes, patient needs extra time SOCIAL INTERACTION - SCORE: 6-JUAN FRANCISCO PROBLEM SOLVING: PROBLEM SOLVING - STEP 1: Does the patient need help from a person or device, or need extra time to solve complex problems such as managing a checking account or confronting interpersonal problems? No. PROBLEM SOLVING - STEP 2: Does the patient require extra time to make decisions or solve problems, OR does s/he have slight dif ficulty reading, initiating, or self-correcting in unfamiliar situations? Yes, patient needs extra ti me. PROBLEM SOLVING - SCORE: 6-JUAN FRANCISCO MEMORY: MEMORY - STEP 1: Does the patient need help from a person or device, or need extra time to remember frequently encount ered people, daily routines, and executing requests? Yes. MEMORY - STEP 2: How often does the patient need help to remember frequently encountered people, daily routines, and e xecuting requests? Less than 10% of the time MEMORY - SCORE: 5-SUP SIGNATURE PANEL: The following modified sections: Eating - Score, Grooming - Score, Bathing - Score, Dressing - Upper Body - Score, Dressing - Lower Body - Score, Toileting - Score, Bladder Management - Score, Bowel Man agement - Score, Transfers: Bed, Chair, Wheelchair - Score, Transfers: Toilet - Score, Transfers: Mariangel wer - Score, Transfers: Tub - Score, Locomotion: Walk - Score, Locomotion: Wheelchair - Score, Compre hension - Score, Expression - Score, Social Interaction - Score, Problem Solving - Score, Memory - Sc ore were [electronically] signed by Abdon William on WedJan 01 2019 11:06:15 GMT-0500 (Central Daylight Time)
[2019-01-01] MEDS ORDERED: FUROSEMIDE 40 MG/4 ML VIAL IV ONE (14:00)
[2019-01-01] MEDS: GABAPENTIN 100 MG CAP PO SCH ×2 (14:30→20:50)
--- NOTE | 2019-01-01 18:16 | PN ---
Date of Progress Note: 01/01/2019 Subjective: The patient is seen and examined. Chart reviewed and case discussed with RN. The patie nt complaining of worsening abdominal distention. Medications: List reviewed. Physical Examination: Vital Signs: Temperature 97.3, heart rate 88, blood pressure 90/50, respirations 14, O2 96% on room air. General: Awake, alert, oriented x3. No acute distress, elderly female. CV: S1 and S2. Respiratory: Moving air well bilaterally. Abdomen: Distended. Positive ascites. Bowel sounds positive. Extremities: No clubbing, cyanosis. Trace edema. Neurologic: Nonfocal. Laboratory Data: No labs for today. Assessment And Plan: An 88-year-old female with: 1.Hypotension. 2.Hepatorenal syndrome, we will check BMP in a.m., improving. 3.Cirrhosis secondary to hepatitis C, status post recent paracentesis. The patient has gained 3 pete nds over the past couple of days. We will increase dose of Lasix once blood pressure is improved thi s afternoon. 4.Hepatitis C, chronic without coma. 5.Severe protein-calorie malnutrition, albumin 2.2. 6.Generalized weakness, improving. Continue physical therapy. Plan: Continue to monitor daily weights and abdominal girth. The patient needs more aggressive diur esis at this point. Once she is finished off her physical therapy and rehabilitation, will need to be assessed for possible TIPS proc edure as outpatient. /GLYNN Voice ID: [id number] Report ID: [id number]
[2019-01-01 19:30] LABS: Absolute Monocytes 0.8 K/uL (0.1-1.3); MPV 8.7 fL (7.6-11.3); RBC Red Blood Cell Count 2.95 M/uL (3.86-4.86)
[2019-01-01 19:36] LABS: Absolute Lymphocytes (CBC) 1.2 K/uL (0.7-4.9); Absolute Neutrophil 3.5 K/uL (1.8-8.0); Basophils % 1.2 % (0-1.3); Eosinophils % 5.3 % (0-4.4); Hematocrit 27.7 % (36.0-45.0)
[2019-01-01 19:45] LABS: Albumin 2.1 g/dL (3.4-5.0); Bilirubin Total 0.6 mg/dL (0.2-1.0); Potassium 3.7 mmol/L (3.5-5.1); Protein, Total 6.4 g/dL (6.4-8.2)
[2019-01-01] MEDS ORDERED: ALBUMIN HUMAN 25% 100 ML IV ONE (20:43)
[2019-01-01] MEDS: DOCUSATE NA 100 MG CAP PO SCH (20:51)
[2019-01-01] MEDS: PANTOPRAZOLE 40MG TABLET PO SCH (20:51)
[2019-01-01] MEDS ORDERED: NA CHLORIDE 0.9% 1,000 ML IV SCH (21:00)
[2019-01-01 22:53] LABS: Ferritin 131.4 ng/mL (8-388)
--- NOTE | 2019-01-02 00:46 | FAST ---
SHIFT START DATE/TIME: 01/01/2019 19:00 (CDT) SHIFT END DATE/TIME: 01/02/2019 07:00 (CDT) NAME EDGARD DÍAZ DATE OF : 1930 DATE OF ADMISSION: 12/29/2018 15:49 (CDT) PHONE: AGE: 88 N# [id number] GENDER: Female ENCOUNTER PHYSICIAN: Dr. Marilyn Edmond ADMISSION DIAGNOSIS: - Medically Complex Conditions 17 - Terminal Care (17.6) Liver Cirrhosis. EATING: Activity did not occur on this shift EATING - SCORE: 0-UNK GROOMING: Activity did not occur on this shift GROOMING - SCORE: 0-UNK BATHING: Activity did not occur on this shift BATHING - SCORE: 0-UNK DRESSING - UPPER BODY: Patient is not dressing in public clothing ARTICLES SCORE Total number of steps: 0 DRESSING - UPPER BODY - SCORE: 0-UNK DRESSING - LOWER BODY: Patient is not dressing in public clothing ARTICLES SCORE Total number of steps: 0 DRESSING - LOWER BODY - SCORE: 0-UNK TOILETING: TOILETING - STEP 1: Does the patient require the assistance of a person or device, or need extra time with toileting? Yes . TOILETING - STEP 2: Does the patient require the assistance of a helper? Yes. TOILETING - STEP 3: How much assistance does the patient require from the helper? Hands-on assistance from the helper TOILETING - STEP 4: Of the 3 tasks: 1) Adjusting clothing prior to use, 2) Cleansing of perineal area, 3) Adjusting clot sabine after use; How many tasks does the patient perform WITHOUT assistance of the helper? Two tasks TOILETING - SCORE: 3-MOD BLADDER MANAGEMENT: [place] removes incontinent device (Depends, pull ups, etc.); cleans the patient after accident / inco ntinent episode; and, applies new incontinent device. BLADDER MANAGEMENT - SCORE: 1-DEP BOWEL MANAGEMENT: [place] removes incontinent device (depends, pull ups, etc.); cleans the patient after accident / inco ntinent episode; and, applies new device (depends, pull-ups, padding, etc.). BOWEL MANAGEMENT - SCORE: 1-DEP TRANSFERS: BED, CHAIR, WHEELCHAIR: TRANSFERS: BED, CHAIR, WHEELCHAIR - STEP 1: Does the patient require assistance of a person or device, or need extra time with bed, chair, or whe elchair transfers? Yes. TRANSFERS: BED, CHAIR, WHEELCHAIR - STEP 2: Does the patient require the assistance of a helper? Yes. TRANSFERS: BED, CHAIR, WHEELCHAIR - STEP 3: How much assistance does the patient require from the helper? Steadying/guiding assistance TRANSFERS: BED, CHAIR, WHEELCHAIR - SCORE: 4-MIN TRANSFERS: TOILET: TRANSFERS: TOILET - STEP 1: Does the patient require the assistance of a person or device, or need extra time with toilet transfe rs? Yes. TRANSFERS: TOILET - STEP 2: Does the patient require the assistance of a helper? Yes. TRANSFERS: TOILET - STEP 3: How much assistance does the patient require from the helper? Patient performs half or more of the tr ansferring tasks TRANSFERS: TOILET - STEP 4: Does the patient need only incidental help such as contact guard or steadying during toilet transfer? Yes. TRANSFERS: TOILET - SCORE: 4-MIN TRANSFERS: SHOWER: Activity did not occur on this shift TRANSFERS: SHOWER - SCORE: 0-UNK TRANSFERS: TUB: Activity did not occur on this shift TRANSFERS: TUB - SCORE: 0-UNK LOCOMOTION: WALK: Activity did not occur on this shift LOCOMOTION: WALK - SCORE: 0-UNK LOCOMOTION: WHEELCHAIR: Activity did not occur on this shift LOCOMOTION: WHEELCHAIR - SCORE: 0-UNK COMPREHENSION: COMPREHENSION: TYPE: Both COMPREHENSION - STEP 1: Does the patient require help from a person or device, or need extra time to understand complex and a bstract ideas (such as current events, finances, discharge planning, medical issues, relationships, e tc)? No. COMPREHENSION - STEP 2: Does the patient need extra time, require an assistive device (such as glasses for visual comprehensi on or a hearing aid for auditory comprehension) or does s/he have mild difficulty understanding compl ex and abstract information? No. COMPREHENSION - SCORE: 7-IND EXPRESSION EXPRESSION: TYPE: Both EXPRESSION - STEP 1: Does the patient require help from a person or device, or need extra time expressing complex and abst ract ideas (such as current events, finances, discharge planning, medical issues, relationships, etc) ? No. EXPRESSION - STEP 2: Does the patient need extra time, require an assistive device (such as augmentive communication syste m or a communication board), OR does s/he have mild difficulty expressing complex and abstract ideas (including mild dysarthria or mild word-find problems)? No. EXPRESSION - SCORE: 7-IND SOCIAL INTERACTION: SOCIAL INTERACTION - STEP 1: Does the patient require a helper to interact with others in social and therapeutic situations? No. SOCIAL INTERACTION - STEP 2: Does the patient need extra time in social situations, OR does s/he interact with staff, other patien ts, and family members ONLY in structured environments, OR does s/he require medication for social in teraction? No. SOCIAL INTERACTION - SCORE: 7-IND PROBLEM SOLVING: PROBLEM SOLVING - STEP 1: Does the patient need help from a person or device, or need extra time to solve complex problems such as managing a checking account or confronting interpersonal problems? No. PROBLEM SOLVING - STEP 2: Does the patient require extra time to make decisions or solve problems, OR does s/he have slight dif ficulty reading, initiating, or self-correcting in unfamiliar situations? No. PROBLEM SOLVING - SCORE: 7-IND MEMORY: MEMORY - STEP 1: Does the patient need help from a person or device, or need extra time to remember frequently encount ered people, daily routines, and executing requests? No. MEMORY - STEP 2: Does the patient have slight difficulty recognizing frequently encountered people, daily routines, or executing requests without the need for repetition or using self-initiated or environmental cues to remember? No. MEMORY - SCORE: 7-IND SIGNATURE PANEL: The following modified sections: Eating - Score, Grooming - Score, Bathing - Score, Dressing - Upper Body - Score, Dressing - Lower Body - Score, Toileting - Score, Bladder Management - Score, Bowel Man agement - Score, Transfers: Bed, Chair, Wheelchair - Score, Transfers: Toilet - Score, Transfers: Mariangel wer - Score, Transfers: Tub - Score, Locomotion: Walk - Score, Locomotion: Wheelchair - Score, Compre hension - Score, Expression - Score, Social Interaction - Score, Problem Solving - Score, Memory - Sc ore were [electronically] signed by Nellie Griffin CNA on WedJan 02 2019 00:45:41 T-0500 ([place] Da ylight Time)
--- NOTE | 2019-01-02 01:26 | PN ---
Date of Progress Note: 01/01/2019 Chief Complaint: Acute on chronic kidney injury with hepatorenal syndrome, tense ascites. Subjective: The patient developed borderline hypotension today. Midodrine dose was increased to pre vent renal hypoperfusion. The patient had blood work obtained which showed BUN of 64, creatinine of 1.35, sodium 136, potassium 3.7, chloride 101, CO2 29, magnesium was 2.2, calcium 8.1, albumin 2.1. The patient was started on IV fluids and IV albumin. Midodrine dose was increased and Neurontin was adjusted to prevent dizziness and lightheadedness. Review of Systems: Denies fever, chills. Denies PND, orthopnea. Physical Examination: Lungs: Clear to auscultation bilaterally. Heart: S1, S2. Abdomen: Soft, benign. Extremities: Edema present in both legs. Ascites is not tense. Impression And Plan: 1.Hepatorenal syndrome, acute on chronic. Prerenal azotemia, mild. IV fluids were started with IV albumin. The patient will resume diuretics when systolic blood pressure is greater than 110. 2.Renal function is declining due to hepatorenal syndrome. 3.Monitor ammonia level. 4.Fatigue, deconditioning. Continue physical therapy. 5.Anemia. Monitor hemoglobin level and start ALONDRA. EB/MODL Voice ID: [id number] Report ID: [id number]
[2019-01-02 05:38] LABS: Potassium 3.7 mmol/L (3.5-5.1)
[2019-01-02] MEDS: NYSTATIN PWDR 100000 UNIT/GM TOP SCH ×2 (08:00→19:47)
[2019-01-02] MEDS: JUVEN PACKET PO SCH ×2 (08:00→19:47)
[2019-01-02] MEDS: SODIUM CHLORIDE 0.9% 10ML INJ IV SCH ×2 (08:00→19:49)
[2019-01-02] MEDS: PROMOD 30 ML DOSE PO SCH ×2 (08:00→19:47)
[2019-01-02] MEDS: MUPIROCIN 2% OINT 22GM TUBE TOP SCH ×2 (08:00→19:46)
[2019-01-02] MEDS: ENSURE ENLIVE 237 ML CAN PO SCH ×3 (08:00→20:00)
[2019-01-02] MEDS: SPIRONOLACTONE 25 MG TABLET PO SCH (08:00)
[2019-01-02] MEDS: FUROSEMIDE 40 MG TABLET PO SCH (08:00)
[2019-01-02] MEDS: MIDODRINE HCL 5 MG TABLET PO SCH ×3 (08:52→20:46)
[2019-01-02] MEDS: GABAPENTIN 100 MG CAP PO SCH ×3 (08:53→20:46)
[2019-01-02] MEDS: FE SULF/FA/VIT B COMP & C TAB PO SCH (08:53)
[2019-01-02] MEDS: FERROUS SULFATE 325 MG TAB PO SCH (08:53)
[2019-01-02] MEDS: LACTULOSE 20 GM/30 ML UCUP PO SCH ×2 (08:53→19:46)
[2019-01-02] MEDS: MAGNESIUM OXIDE 400 MG TAB PO SCH ×2 (08:53→19:48)
--- NOTE | 2019-01-02 12:26 | FAST ---
ENCOUNTER DATE AND TIME: 01/02/2019 08:00 (CDT) NAME EDGARD DÍAZ DATE OF : 1930 DATE OF ADMISSION: 12/29/2018 15:49 (CDT) PHONE: AGE: 88 SSN# [id number] GENDER: Female ENCOUNTER PHYSICIAN: Dr. Marilyn Edmond ADMISSION DIAGNOSIS: - Medically Complex Conditions 17 - Terminal Care (17.6) Liver Cirrhosis. EATING: Activity did not occur on this shift EATING - SCORE: 0-UNK GROOMING: Wash, rinse, and dry face Wash, rinse, and dry hands GROOMING - STEP 1: Does the patient require the assistance of a person or device, or need extra time when grooming? Yes. GROOMING - STEP 2: Does the patient require the assistance of a helper? No. The patient only requires an assistive devic e, OR takes more than reasonable time to groom, OR there is a concern for safety as the patient groom s GROOMING - SCORE: 6-JUAN FRANCISCO BATHING: Abdomen Buttocks Chest Left arm Left lower leg and foot Left upper leg Perineal area Right arm Right lower leg and foot Right upper leg BATHING - STEP 1: Does the patient require the assistance of a person or device, or need extra time when bathing? Yes. BATHING - STEP 2: Does the patient require the assistance of a helper? Yes. BATHING - STEP 3: How much assistance does the patient require from the helper? Only incidental help such as placement of a wash cloth in his/her hand a few times as s/he bathes OR help to bathe just one or two areas of the body BATHING - SCORE: 4-MIN DRESSING - UPPER BODY: Bra (three steps) T-shirt/pullover shirt (four steps) ARTICLES SCORE Total number of steps: 7 DRESSING - UPPER BODY - STEP 1: Does the patient require help from a person or device, or need extra time when dressing above the [address]? Yes. DRESSING - UPPER BODY - STEP 2: Does the patient require the assistance of a helper? Yes. DRESSING - UPPER BODY - STEP 3: Does the helper touch the patient while dressing? Yes. DRESSING - UPPER BODY - STEP 4: How many of the total steps does the patient complete on his/her own? 6 DRESSING - UPPER BODY - SCORE: 4-MIN DRESSING - LOWER BODY: Elastic waist pants (three steps) Sock - Left foot (one step) Sock - Right foot (one step) Underwear (three steps) ARTICLES SCORE Total number of steps: 8 DRESSING - LOWER BODY - STEP 1: Does the patient require help from a person or device, or need extra time when dressing below the [address] st? Yes. DRESSING - LOWER BODY - STEP 2: Does the patient require the assistance of a helper? Yes. DRESSING - LOWER BODY - STEP 3: Does the helper touch the patient while dressing? Yes. DRESSING - LOWER BODY - STEP 4: How many of the total steps does the patient complete on his/her own? 6 DRESSING - LOWER BODY - SCORE: 4-MIN TOILETING: Activity did not occur on this shift TOILETING - SCORE: 0-UNK BLADDER MANAGEMENT: Activity did not occur on this shift BLADDER MANAGEMENT - SCORE: 7-IND BOWEL MANAGEMENT: Activity did not occur on this shift BOWEL MANAGEMENT - SCORE: 7-IND TRANSFERS: BED, CHAIR, WHEELCHAIR: Activity did not occur on this shift TRANSFERS: BED, CHAIR, WHEELCHAIR - SCORE: 0-UNK TRANSFERS: TOILET: Activity did not occur on this shift TRANSFERS: TOILET - SCORE: 0-UNK TRANSFERS: SHOWER: TRANSFERS: SHOWER - STEP 1: Does the patient require the assistance of a person or device, or need extra time with shower transfe rs? Yes. TRANSFERS: SHOWER - STEP 2: Does the patient require the assistance of a helper? Yes. TRANSFERS: SHOWER - STEP 3: How much assistance does the patient require from the helper? Only incidental help such as contact gu arding or steadying during shower transfers, or help to lift one leg into the shower TRANSFERS: SHOWER - SCORE: 4-MIN TRANSFERS: TUB: Activity did not occur on this shift TRANSFERS: TUB - SCORE: 0-UNK LOCOMOTION: WALK: Activity did not occur on this shift LOCOMOTION: WALK - SCORE: 0-UNK LOCOMOTION: WHEELCHAIR: Activity did not occur on this shift LOCOMOTION: WHEELCHAIR - SCORE: 0-UNK LOCOMOTION: STAIRS: Activity did not occur on this shift LOCOMOTION: STAIRS - SCORE: 0-UNK COMPREHENSION: COMPREHENSION: TYPE: Auditory COMPREHENSION - STEP 1: Does the patient require help from a person or device, or need extra time to understand complex and a bstract ideas (such as current events, finances, discharge planning, medical issues, relationships, e tc)? Yes. COMPREHENSION - STEP 2: Does the patient require help to understand questions or statements about basic needs or ideas (such as hunger, thirst, sleep, safety, daily schedule, room location, or discomfort) half or more of the t fausto? No. COMPREHENSION - STEP 3: How often does the patient need help to understand directions and conversation about basic needs? Les s than 10% of the time COMPREHENSION - SCORE: 5-SUP EXPRESSION EXPRESSION: TYPE: Non-Vocal EXPRESSION - STEP 1: Does the patient require help from a person or device, or need extra time expressing complex and abst ract ideas (such as current events, finances, discharge planning, medical issues, relationships, etc) ? No. EXPRESSION - STEP 2: Does the patient need extra time, require an assistive device (such as augmentive communication syste m or a communication board), OR does s/he have mild difficulty expressing complex and abstract ideas (including mild dysarthria or mild word-find problems)? No. EXPRESSION - SCORE: 7-IND SOCIAL INTERACTION: SOCIAL INTERACTION - STEP 1: Does the patient require a helper to interact with others in social and therapeutic situations? No. SOCIAL INTERACTION - STEP 2: Does the patient need extra time in social situations, OR does s/he interact with staff, other patien ts, and family members ONLY in structured environments, OR does s/he require medication for social in teraction? No. SOCIAL INTERACTION - SCORE: 7-IND PROBLEM SOLVING: PROBLEM SOLVING - STEP 1: Does the patient need help from a person or device, or need extra time to solve complex problems such as managing a checking account or confronting interpersonal problems? Yes. PROBLEM SOLVING - STEP 2: Does the patient solve basic routine problems half or more of the time? Yes. PROBLEM SOLVING - STEP 3: How often does the patient need help to solve basic routine problems? 10%-24% of the time PROBLEM SOLVING - SCORE: 4-MIN MEMORY: MEMORY - STEP 1: Does the patient need help from a person or device, or need extra time to remember frequently encount ered people, daily routines, and executing requests? Yes. MEMORY - STEP 2: How often does the patient need help to remember frequently encountered people, daily routines, and e xecuting requests? Less than 10% of the time MEMORY - SCORE: 5-SUP SIGNATURE PANEL: The following modified sections: Eating - Score, Grooming - Score, Bathing - Score, Dressing - Upper Body - Score, Dressing - Lower Body - Score, Toileting - Score, Transfers: Bed, Chair, Wheelchair - S core, Transfers: Toilet - Score, Transfers: Shower - Score, Transfers: Tub - Score, Comprehension - S core, Expression - Score, Social Interaction - Score, Problem Solving - Score, Memory - Score were [e lectronically] signed by BEATRIZ Powell on WedJan 02 2019 12:25:27 [facility]-0500 ([facility] Time)
[2019-01-02] MEDS ORDERED: ALBUMIN HUMAN 25% 100 ML IV ONE (12:47)
--- NOTE | 2019-01-02 13:18 | FAST ---
SHIFT START DATE/TIME: 01/02/2019 07:00 (CDT) SHIFT END DATE/TIME: 01/02/2019 19:00 (CDT) NAME EDGARD DÍAZ DATE OF : 1930 DATE OF ADMISSION: 12/29/2018 15:49 (CDT) PHONE: AGE: 88 N# [id number] GENDER: Female ENCOUNTER PHYSICIAN: Dr. Marilyn Edmond ADMISSION DIAGNOSIS: - Medically Complex Conditions 17 - Terminal Care (17.6) Liver Cirrhosis. EATING: EATING - STEP 1: Does the patient require the assistance of a person or device, or need extra time when eating? Yes. EATING - STEP 2: Does the patient require the assistance of a helper? Yes. EATING - STEP 3: Does the patient perform half or more of the eating tasks? Yes. EATING - STEP 4: Does the patient need only supervision, cuing, coaxing OR help to apply an orthosis OR help to cut fo od, open containers, pour liquids, or butter bread? Yes. EATING - SCORE: 5-SUP GROOMING: Comb/brush hair Oral care GROOMING - STEP 1: Does the patient require the assistance of a person or device, or need extra time when grooming? Yes. GROOMING - STEP 2: Does the patient require the assistance of a helper? Yes. GROOMING - STEP 3: How much assistance does the patient require from the helper? Cuing, coaxing, instructions, or encour agement for completion of grooming GROOMING - SCORE: 5-SUP BATHING: Activity did not occur on this shift BATHING - SCORE: 0-UNK DRESSING - UPPER BODY: Activity did not occur on this shift ARTICLES SCORE Total number of steps: 0 DRESSING - UPPER BODY - SCORE: 0-UNK DRESSING - LOWER BODY: Activity did not occur on this shift ARTICLES SCORE Total number of steps: 0 DRESSING - LOWER BODY - SCORE: 0-UNK TOILETING: TOILETING - STEP 1: Does the patient require the assistance of a person or device, or need extra time with toileting? Yes . TOILETING - STEP 2: Does the patient require the assistance of a helper? Yes. TOILETING - STEP 3: How much assistance does the patient require from the helper? Hands-on assistance from the helper TOILETING - STEP 4: Of the 3 tasks: 1) Adjusting clothing prior to use, 2) Cleansing of perineal area, 3) Adjusting clot sabine after use; How many tasks does the patient perform WITHOUT assistance of the helper? Two tasks TOILETING - SCORE: 3-MOD BLADDER MANAGEMENT: BLADDER MANAGEMENT - STEP 1: Does the patient control the bladder completely and intentionally without equipment or devices or med ications, and is always continent? No. BLADDER MANAGEMENT - STEP 2: Does the patient require the assistance of a helper? No, patient requires and independently uses an a ssistive device, such as a urinal, bedpan, bedside commode, catheter, absorbent pad, or collecting de vice BLADDER MANAGEMENT - SCORE: 6-JUANF RANCISCO BOWEL MANAGEMENT: BOWEL MANAGEMENT - STEP 1: Does the patient control bowels completely and intentionally without equipment devices or medications AND is always continent? No. BOWEL MANAGEMENT - STEP 2: Does the patient require the assistance of a helper? No, patient requires and manages independently a n assistive device such as a bedpan, bedside commode, absorbent pad, incontinent device, or collectin g device BOWEL MANAGEMENT - SCORE: 6-JUAN FRANCISCO TRANSFERS: BED, CHAIR, WHEELCHAIR: TRANSFERS: BED, CHAIR, WHEELCHAIR - STEP 1: Does the patient require assistance of a person or device, or need extra time with bed, chair, or whe elchair transfers? Yes. TRANSFERS: BED, CHAIR, WHEELCHAIR - STEP 2: Does the patient require the assistance of a helper? Yes. TRANSFERS: BED, CHAIR, WHEELCHAIR - STEP 3: How much assistance does the patient require from the helper? Lifting of the patient TRANSFERS: BED, CHAIR, WHEELCHAIR - STEP 4: Does the helper lift the patient ONLY up? ONLY down? Up AND Down? ONLY up. TRANSFERS: BED, CHAIR, WHEELCHAIR - SCORE: 3-MOD TRANSFERS: TOILET: TRANSFERS: TOILET - STEP 1: Does the patient require the assistance of a person or device, or need extra time with toilet transfe rs? Yes. TRANSFERS: TOILET - STEP 2: Does the patient require the assistance of a helper? Yes. TRANSFERS: TOILET - STEP 3: How much assistance does the patient require from the helper? Patient performs half or more of the tr ansferring tasks TRANSFERS: TOILET - STEP 4: Does the patient need only incidental help such as contact guard or steadying during toilet transfer? No. Patient needs more than incidental help TRANSFERS: TOILET - SCORE: 3-MOD TRANSFERS: SHOWER: Activity did not occur on this shift TRANSFERS: SHOWER - SCORE: 0-UNK TRANSFERS: TUB: Activity did not occur on this shift TRANSFERS: TUB - SCORE: 0-UNK LOCOMOTION: WALK: Activity did not occur on this shift LOCOMOTION: WALK - SCORE: 0-UNK LOCOMOTION: WHEELCHAIR: Activity did not occur on this shift LOCOMOTION: WHEELCHAIR - SCORE: 0-UNK COMPREHENSION: COMPREHENSION: TYPE: Both COMPREHENSION - STEP 1: Does the patient require help from a person or device, or need extra time to understand complex and a bstract ideas (such as current events, finances, discharge planning, medical issues, relationships, e tc)? Yes. COMPREHENSION - STEP 2: Does the patient require help to understand questions or statements about basic needs or ideas (such as hunger, thirst, sleep, safety, daily schedule, room location, or discomfort) half or more of the t fausto? No. COMPREHENSION - STEP 3: How often does the patient need help to understand directions and conversation about basic needs? 10% - 24% of the time COMPREHENSION - SCORE: 4-MIN EXPRESSION EXPRESSION: TYPE: Both EXPRESSION - STEP 1: Does the patient require help from a person or device, or need extra time expressing complex and abst ract ideas (such as current events, finances, discharge planning, medical issues, relationships, etc) ? Yes. EXPRESSION - STEP 2: Does the patient require help to express basic necessities or ideas (such as hunger, thirst, sleep, s afety, daily schedule, room location, or discomfort) half or more of the time? No. EXPRESSION - STEP 3: How often does the patient need help to express directions and conversation about basic needs? 10-24% of the time EXPRESSION - SCORE: 4-MIN SOCIAL INTERACTION: SOCIAL INTERACTION - STEP 1: Does the patient require a helper to interact with others in social and therapeutic situations? Yes. SOCIAL INTERACTION - STEP 2: Does the patient interact appropriately half or more of the time? Yes. SOCIAL INTERACTION - STEP 3: How often does the patient need help to interact appropriately? Less than 10% of the time SOCIAL INTERACTION - SCORE: 5-SUP PROBLEM SOLVING: PROBLEM SOLVING - STEP 1: Does the patient need help from a person or device, or need extra time to solve complex problems such as managing a checking account or confronting interpersonal problems? Yes. PROBLEM SOLVING - STEP 2: Does the patient solve basic routine problems half or more of the time? Yes. PROBLEM SOLVING - STEP 3: How often does the patient need help to solve basic routine problems? 10%-24% of the time PROBLEM SOLVING - SCORE: 4-MIN MEMORY: MEMORY - STEP 1: Does the patient need help from a person or device, or need extra time to remember frequently encount ered people, daily routines, and executing requests? Yes. MEMORY - STEP 2: How often does the patient need help to remember frequently encountered people, daily routines, and e xecuting requests? 10% - 24% of the time MEMORY - SCORE: 4-MIN SIGNATURE PANEL: The following modified sections: Eating - Score, Grooming - Score, Bathing - Score, Dressing - Upper Body - Score, Dressing - Lower Body - Score, Toileting - Score, Bladder Management - Score, Bowel Man agement - Score, Transfers: Bed, Chair, Wheelchair - Score, Transfers: Toilet - Score, Transfers: Mariangel wer - Score, Transfers: Tub - Score, Locomotion: Walk - Score, Locomotion: Wheelchair - Score, Compre hension - Score, Expression - Score, Social Interaction - Score, Problem Solving - Score, Memory - Sc ore were [electronically] signed by Abdon William on WedJan 02 2019 13:17:37 GMT-0500 (Central Daylight Time)
--- NOTE | 2019-01-02 16:36 | FAST ---
ENCOUNTER DATE AND TIME: 01/02/2019 08:00 (CDT) NAME EDGARD DÍAZ DATE OF : 1930 DATE OF ADMISSION: 12/29/2018 15:49 (CDT) PHONE: AGE: 88 SSN# [id number] GENDER: Female ENCOUNTER PHYSICIAN: Dr. Marilyn Edmond ADMISSION DIAGNOSIS: - Medically Complex Conditions 17 - Terminal Care (17.6) Liver Cirrhosis. EATING: Activity did not occur on this shift EATING - SCORE: 0-UNK GROOMING: Activity did not occur on this shift GROOMING - SCORE: 0-UNK BATHING: Activity did not occur on this shift BATHING - SCORE: 0-UNK DRESSING - UPPER BODY: Activity did not occur on this shift Patient is not dressing in public clothing ARTICLES SCORE Total number of steps: 0 DRESSING - UPPER BODY - SCORE: 0-UNK DRESSING - LOWER BODY: Activity did not occur on this shift Patient is not dressing in public clothing ARTICLES SCORE Total number of steps: 0 DRESSING - LOWER BODY - SCORE: 0-UNK TOILETING: Activity did not occur on this shift TOILETING - SCORE: 0-UNK BLADDER MANAGEMENT: Activity did not occur on this shift BLADDER MANAGEMENT - SCORE: 7-IND BOWEL MANAGEMENT: Activity did not occur on this shift BOWEL MANAGEMENT - SCORE: 7-IND TRANSFERS: BED, CHAIR, WHEELCHAIR: TRANSFERS: BED, CHAIR, WHEELCHAIR - STEP 1: Does the patient require assistance of a person or device, or need extra time with bed, chair, or whe elchair transfers? Yes. TRANSFERS: BED, CHAIR, WHEELCHAIR - STEP 2: Does the patient require the assistance of a helper? Yes. TRANSFERS: BED, CHAIR, WHEELCHAIR - STEP 3: How much assistance does the patient require from the helper? Only supervision TRANSFERS: BED, CHAIR, WHEELCHAIR - SCORE: 5-SUP TRANSFERS: TOILET: Activity did not occur on this shift TRANSFERS: TOILET - SCORE: 0-UNK TRANSFERS: SHOWER: Activity did not occur on this shift TRANSFERS: SHOWER - SCORE: 0-UNK TRANSFERS: TUB: Activity did not occur on this shift TRANSFERS: TUB - SCORE: 0-UNK LOCOMOTION: WALK: LOCOMOTION: WALK - STEP 1: Does the patient need help from a person or device, or need extra time to walk 150 feet? Yes. LOCOMOTION: WALK - STEP 2: How much assistance does the patient require to walk a minimum of 150 feet? Patient walks less than 1 50 feet - but more than 50 feet - with the assistance of only one helper LOCOMOTION: WALK - SCORE: 2-MAX LOCOMOTION: WHEELCHAIR: Activity did not occur on this shift LOCOMOTION: WHEELCHAIR - SCORE: 0-UNK LOCOMOTION: STAIRS: Activity did not occur on this shift LOCOMOTION: STAIRS - SCORE: 0-UNK COMPREHENSION: COMPREHENSION - SCORE: 0-UNK EXPRESSION EXPRESSION - SCORE: 0-UNK SOCIAL INTERACTION: SOCIAL INTERACTION - SCORE: 0-UNK PROBLEM SOLVING: PROBLEM SOLVING - SCORE: 0-UNK MEMORY: MEMORY - SCORE: 0-UNK SIGNATURE PANEL: The following modified sections: Transfers: Bed, Chair, Wheelchair - Score, Transfers: Toilet - Score , Locomotion: Walk - Score, Locomotion: Wheelchair - Score, Locomotion: Stairs - Score were [electron jamil] signed by Wilberto Romero PT on WedJan 02 2019 16:35:02 [facility]-0500 (Central Daylight Time)
--- NOTE | 2019-01-02 17:28 | RAD REPORT ---
EXAM DESCRIPTION: US - Extrem Venous W Compress Jeremiah - 01/02/2019 5:09 pm CLINICAL HISTORY: Leg pain and swelling COMPARISON: June 2018 TECHNIQUE: Real-time sonographic evaluation of the bilateral lower extremity common femoral, superfi cial femoral, popliteal and posterior tibial veins was performed. FINDINGS: Normal compressibility, flow augmentation, phasic flow and spontaneous flow are identified in the left and right lower extremity common femoral, superficial femoral, popliteal and posterior t ibial veins. No intraluminal filling defects seen. IMPRESSION: No DVT in either lower extremity.
--- NOTE | 2019-01-02 19:36 | RAD REPORT ---
EXAM DESCRIPTION: US - Lower Extremity Arterial Bilat - 01/02/2019 6:59 pm COMPARISON: None. TECHNIQUE: Bilateral brachial artery pressure measurements were obtained. Waveforms were obtained al pili the length of each lower extremity. Ankle pressure measurements were attempted but could not be c ompleted due to patient pain. Toe index values were calculated. Visual inspection of the lower extrem ity arterial tree performed. FINDINGS: Symmetric brachial artery pressure measurements were obtained. JANETTE values could not be valentine culated. Patient was not able tolerate ankle pressure due to pain. Toe index values are normal range at 0.89 on the right and 0.86 on the left. Triphasic waveform pattern seen in the right common femoral, superficial femoral and popliteal veins. Biphasic waveforms obtained in the right posterior tibial and dorsalis pedis arteries. Left lower ex tremity showed a similar triphasic to biphasic waveform pattern. Visual inspection shows no significant degree of atherosclerotic change. No occlusion or focal flow r estricting lesion. Velocity values are relatively symmetric along the length of each lower extremity showing normal tapering in velocity values. IMPRESSION: No significant lower extremity peripheral arterial disease.
[2019-01-02] MEDS: SODIUM CHLORIDE 0.9% 10ML INJ IV PRN (19:49)
[2019-01-02] MEDS: PANTOPRAZOLE 40MG TABLET PO SCH (20:28)
[2019-01-02] MEDS: DOCUSATE NA 100 MG CAP PO SCH (20:46)
--- NOTE | 2019-01-02 21:08 | PN ---
Date of Progress Note: 01/02/2019 Subjective: The patient is seen and examined. Chart reviewed and case discussed with RN. The patie nt had some confusion last night and was started on IV fluids. The patient also having worsening abd ominal distention. Daughter at the bedside. Treatment plan explained. All questions answered. Medications: List reviewed. Objective: Vital Signs: Temperature 97.4, heart rate 83, blood pressure 94/54, respirations 14, O2 92% on room air. General: Awake, alert, oriented x3, not in any acute distress. Elderly female, frail. CV: S1, S2. Peripheral pulses present. Respiratory: Diminished breath sounds at the bases, otherwise moving air well. Gastrointestinal: Abdomen is distended. Moderate ascites. Bowel sounds positive. Extremities: No clubbing or cyanosis. Trace edema. Neuro: Nonfocal. Laboratory Data: Sodium 140, potassium 3.7, chloride 103, CO2 of 29, BUN 66, creatinine 1.27, glucos e 85, calcium 8.2. Iron 60, TIBC 171, transferrin 122, ferritin 131. Assessment And Plan: An 88-year-old female with: 1.Hepatorenal syndrome. Creatinine is improved. Appreciate Dr. Sequeira's input. 2.Acute hypotension. The patient was symptomatic yesterday. Diuretics have been held. 3.Cirrhosis secondary to hepatitis C, status post recent paracentesis. The patient's weight has aga in gone up by 4 pounds today. We will need paracentesis. We will schedule for tomorrow. I explaine d to the patient and the daughter at the bedside that this is end-stage renal disease. There is no c ure. She is not a candidate for transplant. May also not be a candidate for TIPS procedure. They u nderstand that recurrent paracenteses has its own risks including bleeding, infection, sinus tract fo rmation. The patient will receive albumin transfusion. 4.Hepatitis C, chronic without coma. 5.Severe protein-calorie malnutrition. 6.Generalized weakness, improving. We will continue with physical therapy as tolerated. 7.Anemia. We will continue to monitor H and H. 8.Acute metabolic encephalopathy, resolved likely due to elevated kidney function and possible hepat ic encephalopathy and hypotension. Plan: Paracentesis in a.m. Overall poor prognosis. Hospice services were offered. The patient dec lined at this time. Family and patient do not quite understand the grave prognosis of her condition. At this point, the patient is in a recurrent cycle of fluid buildup and paracentesis. /GLYNN Voice ID: [id number] Report ID: [id number]
--- NOTE | 2019-01-02 22:20 | R.PN ---
ENCOUNTER DATE AND TIME: 01/02/2019 22:10 (CDT) NAME EDGARD DÍAZ DATE OF : 1930 DATE OF ADMISSION: 12/29/2018 15:49 (CDT) Liver CirrhosisCHIEF COMPLAINT: Debility and liver cirrhosis SUBJECTIVE: Pt denied any depression. Pt denied any Shortness of Breath. Doppler of lower extremities reveal no DVTs or significant PAD. Ambulated 240' with standby assistance using a rolling walker. VITAL SIGNS Temperature: 98.7 F SBP/DBP: 101/57 Pulse: 84 Resp: 20 Vital signs stable, afebrile MEDICATION ALLERGIES: Morphine Sulfate ENVIRONMENTAL ALLERGIES: None Known - Substance Allergies None Known - Other Allergies ADHESIVE TAPE NURSING: - Shower allowing shower ACTIVITIES OOB only with supervision THERAPIES: - Occupational Therapy Evaluate and Treat. - Physical Therapy Evaluate and Treat. PHYSICAL EXAM - Gen Alert and awake Lying in bed No apparent distress Oriented to: person, time, and place - Skin No breakdown No abnormalities - Eyes No abnormalities - ENMT No abnormalities - Neck No abnormalities - CVS RRR - Chest No abnormalities - Abd Distended - GI Positive fluid wave - No abnormalities - Ext Moderate edema in both lower extremities. - MSK 4+/5 weakness in both lower extremities. - Neuro No focal deficits - Psych No abnormalities ASSESSMENT: Pt. is a 88 yo Right-handed white female.On 12/19/2018 she was admitted to [facility] with diagnosis Liver Cirrhosis.Her impairment category is Medically Complex Conditions 17 - T erminal Care (17.6).Pre-morbidly, Pt. was independent/mod-I in Self-Care, Sphincter Control, Transfer s Control, Locomotion, Communication, and Social Cognition; and she had good Sphincter Control.Curren tly, she has deficits of Self-Care, Transfers Control, Locomotion, Endurance, Balance, and Safety Susan reness.Pt. is now referred to [facility] for acute in-patient rehabilitation i n order to maximize patient's functional independence in activities of daily living, strength, ROM, a nd mobility.- Rehab Goal Patient has realistic goal of being discharged at assistance level 6-Keily to reside at Home with Fam fanny/Relatives. MDM/PLAN: - Physical Therapy Gait dysfunction - to improve, our physical therapists will perform initial evaluation of pt's statu s upon admission and devise an individualized program for Gait Training, and Wheel Chair mobility Inability to transfer - to improve, our physical therapists will perform initial evaluation of pt's status upon admission and devise an individualized program for Bed mobility Need for home safety evaluation - to improve, our physical therapists will perform initial evaluatio n of pt's status upon admission and devise an individualized program for Home Evaluation Need in caregiver upon discharge - to improve, our physical therapists will perform initial evaluati on of pt's status upon admission and devise an individualized program for Caregiver Training New precaution - to improve, our physical therapists will perform initial evaluation of pt's status upon admission and devise an individualized program for Patient precaution education Poor balance - to improve, our physical therapists will perform initial evaluation of pt's status up on admission and devise an individualized program for Balance Training Poor endurance - to improve, our physical therapists will perform initial evaluation of pt's status upon admission and devise an individualized program for Endurance Training Weakness - to improve, our physical therapists will perform initial evaluation of pt's status upon a dmission and devise an individualized program for Aquatic Therapy, Neuromuscular Reeducation, and Str engthening Achieving independence - to improve, our physical therapists will perform initial evaluation of pt's status upon admission and devise an individualized program for Community Reintegration Activities - Occupational Therapy ADL deficits - to improve, our occupation therapists will perform initial evaluation of pt's status upon admission and devise an individualized program for Bathing, Bed mobility, Community Reintegratio n, Cooking, Dressing, Eating, Fine Motor Skills, Grooming, Homemaking, Kitchen Mobility, Laundry, Pat ient Education, Safety Awareness, Splinting - Positioning, Transfers(Toilet, Tub, Shower), and Wheel Chair Management Need for pet care technician - to improve, our occupation therapists will perform initial evaluation of pt's status upon admission and devise an individualized program for Caregiver Training Weakness - to improve, our occupation therapists will perform initial evaluation of pt's status upon admission and devise an individualized program for Aquatic Therapy, Balance, Endurance, UE ROM, and UE strengthening - Diet Type Continue [facility] soft ground - Diet - Liquid Texture Continue Regular - Tube Feed Continue N/A - Diet - Solid Texture Continue Regular - Shower allowing shower FUNCTIONAL STATUS: - Self-Care A. Eating sup B. Grooming sup C. Bathing [place] D. Dressing - [place] E. Dressing - Lower modA F. Toileting modA - Sphincter Control G: Bladder control Ind H: Bowel control Ind - Transfers Control I. Bed/Chair/Wheelchair [place] J. Toilet [place] K. Tub/Shower ADNO - Locomotion L. Walk/Wheelchair (C) [place] L. Walk/Wheelchair (W) [place] M. Stairs ADNO - Communication N. Comprehension (B) Ind O. Expression (B) Ind - Social Cognition P. Social Interaction Ind Q. Problem Solving Ind R. Memory Ind - Endurance Fair - Balance Fair - Safety Awareness Fair CURRENT FUNC. DEFICITS: Self-Care, Transfers Control, Locomotion, Endurance, Balance, and Safety Awareness SIGNATURE PANEL: (CDT)
--- NOTE | 2019-01-02 22:24 | R.PN ---
ENCOUNTER DATE AND TIME: 01/02/2019 22:22 (CDT) NAME EDGARD DÍAZ DATE OF : 1930 DATE OF ADMISSION: 12/29/2018 15:49 (CDT) Liver CirrhosisCHIEF COMPLAINT: Debility and liver cirrhosis SUBJECTIVE: Pt denied any depression. Pt denied any Shortness of Breath. Doppler of lower extremities reveal no DVTs or significant PAD. Ambulated 240' with standby assistance using a rolling walker. VITAL SIGNS Temperature: 98.7 F SBP/DBP: 101/57 Pulse: 84 Resp: 20 MEDICATION ALLERGIES: Morphine Sulfate ENVIRONMENTAL ALLERGIES: None Known - Substance Allergies None Known - Other Allergies ADHESIVE TAPE NURSING: - Shower allowing shower ACTIVITIES OOB only with supervision THERAPIES: - Occupational Therapy Evaluate and Treat. - Physical Therapy Evaluate and Treat. PHYSICAL EXAM - Gen Alert and awake Lying in bed No apparent distress Oriented to: person, time, and place - Skin No breakdown No abnormalities - Eyes No abnormalities - ENMT No abnormalities - Neck No abnormalities - CVS RRR - Chest No abnormalities - Abd Distended - GI Positive fluid wave - No abnormalities - Ext Moderate edema in both lower extremities. - MSK 4+/5 weakness in both lower extremities. - Neuro No focal deficits - Psych No abnormalities ASSESSMENT: Pt. is a 88 yo Right-handed white female.On 12/19/2018 she was admitted to [facility] with diagnosis Liver Cirrhosis.Her impairment category is Medically Complex Conditions 17 - T [facility] Care (17.6).Pre-morbidly, Pt. was independent/mod-I in Self-Care, Sphincter Control, Transfer s Control, Locomotion, Communication, and Social Cognition; and she had good Sphincter Control.Curren tly, she has deficits of Self-Care, Transfers Control, Locomotion, Endurance, Balance, and Safety Susan reness.Pt. is now referred to [facility] for acute in-patient rehabilitation i n order to maximize patient's functional independence in activities of daily living, strength, ROM, a nd mobility.- Rehab Goal Patient has realistic goal of being discharged at assistance level 6-Keily to reside at Home with Fam fanny/Relatives. MDM/PLAN: - Physical Therapy Gait dysfunction - to improve, our physical therapists will perform initial evaluation of pt's statu s upon admission and devise an individualized program for Gait Training, and Wheel Chair mobility Inability to transfer - to improve, our physical therapists will perform initial evaluation of pt's status upon admission and devise an individualized program for Bed mobility Need for home safety evaluation - to improve, our physical therapists will perform initial evaluatio n of pt's status upon admission and devise an individualized program for Home Evaluation Need in caregiver upon discharge - to improve, our physical therapists will perform initial evaluati on of pt's status upon admission and devise an individualized program for Caregiver Training New precaution - to improve, our physical therapists will perform initial evaluation of pt's status upon admission and devise an individualized program for Patient precaution education Poor balance - to improve, our physical therapists will perform initial evaluation of pt's status up on admission and devise an individualized program for Balance Training Poor endurance - to improve, our physical therapists will perform initial evaluation of pt's status upon admission and devise an individualized program for Endurance Training Weakness - to improve, our physical therapists will perform initial evaluation of pt's status upon a dmission and devise an individualized program for Aquatic Therapy, Neuromuscular Reeducation, and Str engthening Achieving independence - to improve, our physical therapists will perform initial evaluation of pt's status upon admission and devise an individualized program for Community Reintegration Activities - Occupational Therapy ADL deficits - to improve, our occupation therapists will perform initial evaluation of pt's status upon admission and devise an individualized program for Bathing, Bed mobility, Community Reintegratio n, Cooking, Dressing, Eating, Fine Motor Skills, Grooming, Homemaking, Kitchen Mobility, Laundry, Pat ient Education, Safety Awareness, Splinting - Positioning, Transfers(Toilet, Tub, Shower), and Wheel Chair Management Need for doggy daycare activities director - to improve, our occupation therapists will perform initial evaluation of pt's status upon admission and devise an individualized program for Caregiver Training Weakness - to improve, our occupation therapists will perform initial evaluation of pt's status upon admission and devise an individualized program for Aquatic Therapy, Balance, Endurance, UE ROM, and UE strengthening - Diet Type Continue [facility] soft ground - Diet - Liquid Texture Continue Regular - Tube Feed Continue N/A - Diet - Solid Texture Continue Regular - Shower allowing shower FUNCTIONAL STATUS: UPDATED AT WEEKLY TEAM CONFERENCE - Bladder Same accident frequency: 7-Ind - No accidents in the past 7 days - Bowel Same accident frequency: 7-Ind - No accidents in the past 7 days - Walking Same score based on distance walked: 3(>=150ft) - Wheelchair Same score based on distance traveled: 0(N/A) FUNCTIONAL STATUS: - Self-Care A. Eating sup B. Grooming sup C. Bathing [place] D. Dressing - [place] E. Dressing - Lower modA F. Toileting modA - Sphincter Control G: Bladder control Ind H: Bowel control Ind - Transfers Control I. Bed/Chair/Wheelchair [place] J. Toilet [place] K. Tub/Shower ADNO - Locomotion L. Walk/Wheelchair (C) [place] L. Walk/Wheelchair (W) [place] M. Stairs ADNO - Communication N. Comprehension (B) Ind O. Expression (B) Ind - Social Cognition P. Social Interaction Ind Q. Problem Solving Ind R. Memory Ind - Endurance Fair - Balance Fair - Safety Awareness Fair CURRENT FUNC. DEFICITS: Self-Care, Transfers Control, Locomotion, Endurance, Balance, and Safety Awareness SIGNATURE PANEL: (CDT)
--- NOTE | 2019-01-03 00:13 | FAST ---
SHIFT START DATE/TIME: 01/02/2019 19:00 (CDT) SHIFT END DATE/TIME: 01/03/2019 07:00 (CDT) NAME EDGARD DÍAZ DATE OF : 1930 DATE OF ADMISSION: 12/29/2018 15:49 (CDT) PHONE: AGE: 88 N# [id number] GENDER: Female ENCOUNTER PHYSICIAN: Dr. Valeriano Flannery M.D. 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 EATING: Activity did not occur on this shift EATING - SCORE: 0-UNK GROOMING: Activity did not occur on this shift GROOMING - SCORE: 0-UNK BATHING: Activity did not occur on this shift BATHING - SCORE: 0-UNK DRESSING - UPPER BODY: Patient is not dressing in public clothing ARTICLES SCORE Total number of steps: 0 DRESSING - UPPER BODY - SCORE: 0-UNK DRESSING - LOWER BODY: Patient is not dressing in public clothing ARTICLES SCORE Total number of steps: 0 DRESSING - LOWER BODY - SCORE: 0-UNK TOILETING: TOILETING - STEP 1: Does the patient require the assistance of a person or device, or need extra time with toileting? Yes . TOILETING - STEP 2: Does the patient require the assistance of a helper? Yes. TOILETING - STEP 3: How much assistance does the patient require from the helper? Hands-on assistance from the helper TOILETING - STEP 4: Of the 3 tasks: 1) Adjusting clothing prior to use, 2) Cleansing of perineal area, 3) Adjusting clot sabine after use; How many tasks does the patient perform WITHOUT assistance of the helper? No tasks; h elper performs all three tasks TOILETING - SCORE: 1-DEP BLADDER MANAGEMENT: Rea removes incontinent device (Depends, pull ups, etc.); cleans the patient after accident / inco ntinent episode; and, applies new incontinent device. BLADDER MANAGEMENT - SCORE: 1-DEP BOWEL MANAGEMENT: BOWEL MANAGEMENT - STEP 1: Does the patient control bowels completely and intentionally without equipment devices or medications AND is always continent? No. BOWEL MANAGEMENT - STEP 2: Does the patient require the assistance of a helper? No, patient requires medication for control such as stool softeners, suppositories, laxatives, enemas, or OTC medications BOWEL MANAGEMENT - SCORE: 6-JUAN FRANCISCO TRANSFERS: BED, CHAIR, WHEELCHAIR: TRANSFERS: BED, CHAIR, WHEELCHAIR - STEP 1: Does the patient require assistance of a person or device, or need extra time with bed, chair, or whe elchair transfers? Yes. TRANSFERS: BED, CHAIR, WHEELCHAIR - STEP 2: Does the patient require the assistance of a helper? Yes. TRANSFERS: BED, CHAIR, WHEELCHAIR - STEP 3: How much assistance does the patient require from the helper? Lifting of the legs TRANSFERS: BED, CHAIR, WHEELCHAIR - STEP 4: How many legs does the patient require the helper to lift? both legs TRANSFERS: BED, CHAIR, WHEELCHAIR - SCORE: 3-MOD TRANSFERS: TOILET: TRANSFERS: TOILET - STEP 1: Does the patient require the assistance of a person or device, or need extra time with toilet transfe rs? Yes. TRANSFERS: TOILET - STEP 2: Does the patient require the assistance of a helper? Yes. TRANSFERS: TOILET - STEP 3: How much assistance does the patient require from the helper? Patient performs half or more of the tr ansferring tasks TRANSFERS: TOILET - STEP 4: Does the patient need only incidental help such as contact guard or steadying during toilet transfer? No. Patient needs more than incidental help TRANSFERS: TOILET - SCORE: 3-MOD TRANSFERS: SHOWER: Activity did not occur on this shift TRANSFERS: SHOWER - SCORE: 0-UNK TRANSFERS: TUB: Activity did not occur on this shift TRANSFERS: TUB - SCORE: 0-UNK LOCOMOTION: WALK: Activity did not occur on this shift LOCOMOTION: WALK - SCORE: 0-UNK LOCOMOTION: WHEELCHAIR: Activity did not occur on this shift LOCOMOTION: WHEELCHAIR - SCORE: 0-UNK COMPREHENSION: COMPREHENSION: TYPE: Both COMPREHENSION - STEP 1: Does the patient require help from a person or device, or need extra time to understand complex and a bstract ideas (such as current events, finances, discharge planning, medical issues, relationships, e tc)? Yes. COMPREHENSION - STEP 2: Does the patient require help to understand questions or statements about basic needs or ideas (such as hunger, thirst, sleep, safety, daily schedule, room location, or discomfort) half or more of the t fausto? No. COMPREHENSION - STEP 3: How often does the patient need help to understand directions and conversation about basic needs? 10% - 24% of the time COMPREHENSION - SCORE: 4-MIN EXPRESSION EXPRESSION: TYPE: Both EXPRESSION - STEP 1: Does the patient require help from a person or device, or need extra time expressing complex and abst ract ideas (such as current events, finances, discharge planning, medical issues, relationships, etc) ? No. EXPRESSION - STEP 2: Does the patient need extra time, require an assistive device (such as augmentive communication syste m or a communication board), OR does s/he have mild difficulty expressing complex and abstract ideas (including mild dysarthria or mild word-find problems)? Yes. EXPRESSION - SCORE: 6-JUAN FRANCISCO SOCIAL INTERACTION: SOCIAL INTERACTION - STEP 1: Does the patient require a helper to interact with others in social and therapeutic situations? No. SOCIAL INTERACTION - STEP 2: Does the patient need extra time in social situations, OR does s/he interact with staff, other patien ts, and family members ONLY in structured environments, OR does s/he require medication for social in teraction? Yes, patient needs extra time SOCIAL INTERACTION - SCORE: 6-JUAN FRANCISCO PROBLEM SOLVING: PROBLEM SOLVING - STEP 1: Does the patient need help from a person or device, or need extra time to solve complex problems such as managing a checking account or confronting interpersonal problems? Yes. PROBLEM SOLVING - STEP 2: Does the patient solve basic routine problems half or more of the time? Yes. PROBLEM SOLVING - STEP 3: How often does the patient need help to solve basic routine problems? 10%-24% of the time PROBLEM SOLVING - SCORE: 4-MIN MEMORY: MEMORY - STEP 1: Does the patient need help from a person or device, or need extra time to remember frequently encount ered people, daily routines, and executing requests? No. MEMORY - STEP 2: Does the patient have slight difficulty recognizing frequently encountered people, daily routines, or executing requests without the need for repetition or using self-initiated or environmental cues to remember? Yes. MEMORY - SCORE: 6-JUAN FRANCISCO SIGNATURE PANEL: The following modified sections: Eating - Score, Grooming - Score, Dressing - Upper Body - Score, Jeffery ssing - Lower Body - Score, Toileting - Score, Bladder Management - Score, Bowel Management - Score, Transfers: Bed, Chair, Wheelchair - Score, Transfers: Toilet - Score, Transfers: Shower - Score, Chamberlain sfers: Tub - Score, Locomotion: Walk - Score, Locomotion: Wheelchair - Score, Comprehension - Score, Expression - Score, Social Interaction - Score, Problem Solving - Score, Memory - Score were [electro nically] signed by Chitra Hurt CNA on WedJan 03 2019 00:12:28 GMT-0500 (Central Daylight Time)
--- NOTE | 2019-01-03 02:14 | PN ---
Date of Progress Note: 01/02/2019 Chief Complaint: Acute kidney injury, hepatorenal syndrome, tense ascites. Subjective: The patient developed dizziness and Neurontin dose was reduced. The patient received midodrine and additional dose of albumin for blood pressure support and IV normal saline was started to control hypotension. Review of Systems: The patient denies PND or orthopnea. Physical Examination: Lungs: Few crackles at bases. Heart: S1, S2. Abdomen: Soft, benign. Extremities: Slight edema. Impression And Plan: 1. Hepatorenal syndrome, acute kidney injury. There is high BUN and creatinine ratio. The patient completed IV fluids with normal saline to stabilize hypotensive episode. 2. Lower extremity edema. No evidence of deep vein thrombosis as per venous Doppler. 3. Dizziness. The patient will continue midodrine for blood pressure support and further workup per primary team was started. 4. Tense ascites. The patient will have paracentesis tomorrow. Continue IV albumin during paracentesis. SANTO/GLYNN Voice ID: [id number] Report ID: [id number] MTDD
[2019-01-03 05:46] LABS: Magnesium 2.6 mg/dL (1.8-2.4); Phosphorus 2.9 mg/dL (2.5-4.9); Potassium 3.4 mmol/L (3.5-5.1)
[2019-01-03 05:50] LABS: Absolute Lymphocytes (CBC) 0.9 K/uL (0.7-4.9); Absolute Monocytes 0.5 K/uL (0.1-1.3); Absolute Neutrophil 2.6 K/uL (1.8-8.0); Hematocrit 27.5 % (36.0-45.0); Lymphocytes % 21.3 % (15.3-44.8); MPV 8.9 fL (7.6-11.3); Monocytes % 12.5 % (3.3-12.3); Protime INR 1.18
[2019-01-03] MEDS: ENSURE ENLIVE 237 ML CAN PO SCH ×2 (08:00→20:00)
[2019-01-03] MEDS: SODIUM CHLORIDE 0.9% 10ML INJ IV SCH ×2 (08:00→20:00)
[2019-01-03] MEDS: MAGNESIUM OXIDE 400 MG TAB PO SCH ×2 (08:00→20:03)
[2019-01-03] MEDS: NYSTATIN PWDR 100000 UNIT/GM TOP SCH ×2 (08:00→20:00)
[2019-01-03] MEDS: JUVEN PACKET PO SCH ×3 (08:00→20:03)
[2019-01-03] MEDS: MUPIROCIN 2% OINT 22GM TUBE TOP SCH ×2 (08:00→20:01)
[2019-01-03] MEDS: PROMOD 30 ML DOSE PO SCH ×2 (08:00→20:04)
[2019-01-03] MEDS: LACTULOSE 20 GM/30 ML UCUP PO SCH ×2 (08:40→20:02)
[2019-01-03] MEDS: GABAPENTIN 100 MG CAP PO SCH ×3 (08:42→20:50)
[2019-01-03] MEDS: FE SULF/FA/VIT B COMP & C TAB PO SCH (08:42)
[2019-01-03] MEDS: MIDODRINE HCL 5 MG TABLET PO SCH ×3 (08:42→20:51)
[2019-01-03] MEDS: FERROUS SULFATE 325 MG TAB PO SCH (08:42)
--- NOTE | 2019-01-03 12:59 | FAST ---
ENCOUNTER DATE AND TIME: 01/03/2019 08:00 (CDT) NAME EDGARD DÍAZ DATE OF : 1930 DATE OF ADMISSION: 12/29/2018 15:49 (CDT) PHONE: AGE: 88 SSN# [id number] GENDER: Female ENCOUNTER PHYSICIAN: Dr. Valeriano Flannery M.D. 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 EATING: Activity did not occur on this shift EATING - SCORE: 0-UNK GROOMING: Activity did not occur on this shift GROOMING - SCORE: 0-UNK BATHING: Activity did not occur on this shift BATHING - SCORE: 0-UNK DRESSING - UPPER BODY: Bra (three steps) T-shirt/pullover shirt (four steps) ARTICLES SCORE Total number of steps: 7 DRESSING - UPPER BODY - STEP 1: Does the patient require help from a person or device, or need extra time when dressing above the vinnie st? Yes. DRESSING - UPPER BODY - STEP 2: Does the patient require the assistance of a helper? Yes. DRESSING - UPPER BODY - STEP 3: Does the helper touch the patient while dressing? No. DRESSING - UPPER BODY - SCORE: 5-SUP DRESSING - LOWER BODY: Activity did not occur on this shift ARTICLES SCORE Total number of steps: 0 DRESSING - LOWER BODY - SCORE: 0-UNK TOILETING: Activity did not occur on this shift TOILETING - SCORE: 0-UNK BLADDER MANAGEMENT: Activity did not occur on this shift BLADDER MANAGEMENT - SCORE: 7-IND BOWEL MANAGEMENT: Activity did not occur on this shift BOWEL MANAGEMENT - SCORE: 7-IND TRANSFERS: BED, CHAIR, WHEELCHAIR: Activity did not occur on this shift TRANSFERS: BED, CHAIR, WHEELCHAIR - SCORE: 0-UNK TRANSFERS: TOILET: Activity did not occur on this shift TRANSFERS: TOILET - SCORE: 0-UNK TRANSFERS: SHOWER: Activity did not occur on this shift TRANSFERS: SHOWER - SCORE: 0-UNK TRANSFERS: TUB: Activity did not occur on this shift TRANSFERS: TUB - SCORE: 0-UNK LOCOMOTION: WALK: Activity did not occur on this shift LOCOMOTION: WALK - SCORE: 0-UNK LOCOMOTION: WHEELCHAIR: Activity did not occur on this shift LOCOMOTION: WHEELCHAIR - SCORE: 0-UNK LOCOMOTION: STAIRS: Activity did not occur on this shift LOCOMOTION: STAIRS - SCORE: 0-UNK COMPREHENSION: COMPREHENSION: TYPE: Auditory COMPREHENSION - STEP 1: Does the patient require help from a person or device, or need extra time to understand complex and a bstract ideas (such as current events, finances, discharge planning, medical issues, relationships, e tc)? No. COMPREHENSION - STEP 2: Does the patient need extra time, require an assistive device (such as glasses for visual comprehensi on or a hearing aid for auditory comprehension) or does s/he have mild difficulty understanding compl ex and abstract information? Yes. COMPREHENSION - SCORE: 6-JUAN FRANCISCO EXPRESSION EXPRESSION: TYPE: Non-Vocal EXPRESSION - STEP 1: Does the patient require help from a person or device, or need extra time expressing complex and abst ract ideas (such as current events, finances, discharge planning, medical issues, relationships, etc) ? No. EXPRESSION - STEP 2: Does the patient need extra time, require an assistive device (such as augmentive communication syste m or a communication board), OR does s/he have mild difficulty expressing complex and abstract ideas (including mild dysarthria or mild word-find problems)? No. EXPRESSION - SCORE: 7-IND SOCIAL INTERACTION: SOCIAL INTERACTION - STEP 1: Does the patient require a helper to interact with others in social and therapeutic situations? No. SOCIAL INTERACTION - STEP 2: Does the patient need extra time in social situations, OR does s/he interact with staff, other patien ts, and family members ONLY in structured environments, OR does s/he require medication for social in teraction? No. SOCIAL INTERACTION - SCORE: 7-IND PROBLEM SOLVING: PROBLEM SOLVING - STEP 1: Does the patient need help from a person or device, or need extra time to solve complex problems such as managing a checking account or confronting interpersonal problems? No. PROBLEM SOLVING - STEP 2: Does the patient require extra time to make decisions or solve problems, OR does s/he have slight dif ficulty reading, initiating, or self-correcting in unfamiliar situations? No. PROBLEM SOLVING - SCORE: 7-IND MEMORY: MEMORY - STEP 1: Does the patient need help from a person or device, or need extra time to remember frequently encount ered people, daily routines, and executing requests? No. MEMORY - STEP 2: Does the patient have slight difficulty recognizing frequently encountered people, daily routines, or executing requests without the need for repetition or using self-initiated or environmental cues to remember? Yes. MEMORY - SCORE: 6-JUAN FRANCISCO SIGNATURE PANEL: The following modified sections: Eating - Score, Grooming - Score, Bathing - Score, Dressing - Upper Body - Score, Dressing - Lower Body - Score, Toileting - Score, Transfers: Bed, Chair, Wheelchair - S core, Transfers: Toilet - Score, Transfers: Shower - Score, Transfers: Tub - Score, Comprehension - S core, Expression - Score, Social Interaction - Score, Problem Solving - Score, Memory - Score were [e lectronically] signed by BEATRIZ Powell on WedJan 03 2019 12:58:16 T-0500 ([facility] Time)
--- NOTE | 2019-01-03 14:02 | FAST ---
SHIFT START DATE/TIME: 01/03/2019 07:00 (CDT) SHIFT END DATE/TIME: 01/03/2019 19:00 (CDT) NAME EDGARD DÍAZ DATE OF : 1930 DATE OF ADMISSION: 12/29/2018 15:49 (CDT) PHONE: AGE: 88 N# [id number] GENDER: Female ENCOUNTER PHYSICIAN: Dr. Valeriano Flannery M.D. 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 EATING: EATING - STEP 1: Does the patient require the assistance of a person or device, or need extra time when eating? Yes. EATING - STEP 2: Does the patient require the assistance of a helper? Yes. EATING - STEP 3: Does the patient perform half or more of the eating tasks? Yes. EATING - STEP 4: Does the patient need only supervision, cuing, coaxing OR help to apply an orthosis OR help to cut fo od, open containers, pour liquids, or butter bread? Yes. EATING - SCORE: 5-SUP GROOMING: Comb/brush hair Oral care Wash, rinse, and dry face Wash, rinse, and dry hands GROOMING - STEP 1: Does the patient require the assistance of a person or device, or need extra time when grooming? Yes. GROOMING - STEP 2: Does the patient require the assistance of a helper? Yes. GROOMING - STEP 3: How much assistance does the patient require from the helper? Only prior equipment preparation/set up from the helper GROOMING - SCORE: 5-SUP BATHING: Activity did not occur on this shift BATHING - SCORE: 0-UNK DRESSING - UPPER BODY: T-shirt/pullover shirt (four steps) ARTICLES SCORE Total number of steps: 4 DRESSING - UPPER BODY - STEP 1: Does the patient require help from a person or device, or need extra time when dressing above the [address]? Yes. DRESSING - UPPER BODY - STEP 2: Does the patient require the assistance of a helper? Yes. DRESSING - UPPER BODY - STEP 3: Does the helper touch the patient while dressing? Yes. DRESSING - UPPER BODY - STEP 4: How many of the total steps does the patient complete on his/her own? 4 DRESSING - UPPER BODY - SCORE: 4-MIN DRESSING - LOWER BODY: Elastic waist pants (three steps) Underwear (three steps) ARTICLES SCORE Total number of steps: 6 DRESSING - LOWER BODY - STEP 1: Does the patient require help from a person or device, or need extra time when dressing below the [address] st? Yes. DRESSING - LOWER BODY - STEP 2: Does the patient require the assistance of a helper? Yes. DRESSING - LOWER BODY - STEP 3: Does the helper touch the patient while dressing? Yes. DRESSING - LOWER BODY - STEP 4: How many of the total steps does the patient complete on his/her own? 5 DRESSING - LOWER BODY - SCORE: 4-MIN TOILETING: TOILETING - STEP 1: Does the patient require the assistance of a person or device, or need extra time with toileting? Yes . TOILETING - STEP 2: Does the patient require the assistance of a helper? Yes. TOILETING - STEP 3: How much assistance does the patient require from the helper? Hands-on assistance from the helper TOILETING - STEP 4: Of the 3 tasks: 1) Adjusting clothing prior to use, 2) Cleansing of perineal area, 3) Adjusting clot sabine after use; How many tasks does the patient perform WITHOUT assistance of the helper? No tasks; h julius performs all three tasks TOILETING - SCORE: 1-DEP BLADDER MANAGEMENT: BLADDER MANAGEMENT - STEP 1: Does the patient control the bladder completely and intentionally without equipment or devices or med ications, and is always continent? No. BLADDER MANAGEMENT - STEP 2: Does the patient require the assistance of a helper? No, patient requires and independently uses an a ssistive device, such as a urinal, bedpan, bedside commode, catheter, absorbent pad, or collecting de vice BLADDER MANAGEMENT - SCORE: 6-JUAN FRANCISCO BLADDER MANAGEMENT - FREQUENCY OF ACCIDENTS: BLADDER MANAGEMENT(FA) - STEP 1: How many accidents has the patient had during the current shift? 0 BOWEL MANAGEMENT: BOWEL MANAGEMENT - STEP 1: Does the patient control bowels completely and intentionally without equipment devices or medications AND is always continent? No. BOWEL MANAGEMENT - STEP 2: Does the patient require the assistance of a helper? No, patient requires medication for control such as stool softeners, suppositories, laxatives, enemas, or OTC medications BOWEL MANAGEMENT - SCORE: 6-JUAN FRANCISCO BOWEL MANAGEMENT - FREQUENCY OF ACCIDENTS: BOWEL MANAGEMENT(FA) - STEP 1: How many accidents has the patient had during the current shift? 0 TRANSFERS: BED, CHAIR, WHEELCHAIR: TRANSFERS: BED, CHAIR, WHEELCHAIR - STEP 1: Does the patient require assistance of a person or device, or need extra time with bed, chair, or whe elchair transfers? Yes. TRANSFERS: BED, CHAIR, WHEELCHAIR - STEP 2: Does the patient require the assistance of a helper? Yes. TRANSFERS: BED, CHAIR, WHEELCHAIR - STEP 3: How much assistance does the patient require from the helper? Lifting of the legs TRANSFERS: BED, CHAIR, WHEELCHAIR - STEP 4: How many legs does the patient require the helper to lift? both legs TRANSFERS: BED, CHAIR, WHEELCHAIR - SCORE: 3-MOD TRANSFERS: TOILET: TRANSFERS: TOILET - STEP 1: Does the patient require the assistance of a person or device, or need extra time with toilet transfe rs? Yes. TRANSFERS: TOILET - STEP 2: Does the patient require the assistance of a helper? Yes. TRANSFERS: TOILET - STEP 3: How much assistance does the patient require from the helper? Patient performs half or more of the tr ansferring tasks TRANSFERS: TOILET - STEP 4: Does the patient need only incidental help such as contact guard or steadying during toilet transfer? Yes. TRANSFERS: TOILET - SCORE: 4-MIN TRANSFERS: SHOWER: Activity did not occur on this shift TRANSFERS: SHOWER - SCORE: 0-UNK TRANSFERS: TUB: Activity did not occur on this shift TRANSFERS: TUB - SCORE: 0-UNK LOCOMOTION: WALK: Activity did not occur on this shift LOCOMOTION: WALK - SCORE: 0-UNK LOCOMOTION: WHEELCHAIR: LOCOMOTION: WHEELCHAIR - STEP 1: Does the patient need help to go 150 feet in a wheelchair? Yes. LOCOMOTION: WHEELCHAIR - STEP 2: How much assistance does the patient need from the helper? Only incidental help such as around corner s or over thresholds LOCOMOTION: WHEELCHAIR - SCORE: 4-MIN COMPREHENSION: COMPREHENSION: TYPE: Both COMPREHENSION - STEP 1: Does the patient require help from a person or device, or need extra time to understand complex and a bstract ideas (such as current events, finances, discharge planning, medical issues, relationships, e tc)? Yes. COMPREHENSION - STEP 2: Does the patient require help to understand questions or statements about basic needs or ideas (such as hunger, thirst, sleep, safety, daily schedule, room location, or discomfort) half or more of the t fausto? No. COMPREHENSION - STEP 3: How often does the patient need help to understand directions and conversation about basic needs? Les s than 10% of the time COMPREHENSION - SCORE: 5-SUP EXPRESSION EXPRESSION: TYPE: Both EXPRESSION - STEP 1: Does the patient require help from a person or device, or need extra time expressing complex and abst ract ideas (such as current events, finances, discharge planning, medical issues, relationships, etc) ? Yes. EXPRESSION - STEP 2: Does the patient require help to express basic necessities or ideas (such as hunger, thirst, sleep, s afety, daily schedule, room location, or discomfort) half or more of the time? No. EXPRESSION - STEP 3: How often does the patient need help to express directions and conversation about basic needs? Less t paige 10% of the time EXPRESSION - SCORE: 5-SUP SOCIAL INTERACTION: SOCIAL INTERACTION - STEP 1: Does the patient require a helper to interact with others in social and therapeutic situations? Yes. SOCIAL INTERACTION - STEP 2: Does the patient interact appropriately half or more of the time? Yes. SOCIAL INTERACTION - STEP 3: How often does the patient need help to interact appropriately? Less than 10% of the time SOCIAL INTERACTION - SCORE: 5-SUP PROBLEM SOLVING: PROBLEM SOLVING - STEP 1: Does the patient need help from a person or device, or need extra time to solve complex problems such as managing a checking account or confronting interpersonal problems? Yes. PROBLEM SOLVING - STEP 2: Does the patient solve basic routine problems half or more of the time? Yes. PROBLEM SOLVING - STEP 3: How often does the patient need help to solve basic routine problems? Less than 10% of the time PROBLEM SOLVING - SCORE: 5-SUP MEMORY: MEMORY - STEP 1: Does the patient need help from a person or device, or need extra time to remember frequently encount ered people, daily routines, and executing requests? Yes. MEMORY - STEP 2: How often does the patient need help to remember frequently encountered people, daily routines, and e xecuting requests? Less than 10% of the time MEMORY - SCORE: 5-SUP SIGNATURE PANEL: The following modified sections: Eating - Score, Grooming - Score, Bathing - Score, Dressing - Upper Body - Score, Dressing - Lower Body - Score, Toileting - Score, Bladder Management - Score, Bowel Man agement - Score, Transfers: Bed, Chair, Wheelchair - Score, Transfers: Toilet - Score, Transfers: Mariangel wer - Score, Transfers: Tub - Score, Locomotion: Walk - Score, Locomotion: Wheelchair - Score, Compre hension - Score, Expression - Score, Social Interaction - Score, Problem Solving - Score, Memory - Sc ore were [electronically] signed by Alisha Verdugo RN on WedJan 03 2019 14:01:15 GMT-0500 (Central Day ight Time)
--- NOTE | 2019-01-03 15:18 | FAST ---
ENCOUNTER DATE AND TIME: 01/03/2019 08:00 (CDT) NAME EDGARD DÍAZ DATE OF : 1930 DATE OF ADMISSION: 12/29/2018 15:49 (CDT) PHONE: AGE: 88 N# [id number] GENDER: Female ENCOUNTER PHYSICIAN: Dr. Valeriano Flannery M.D. 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 EATING: Activity did not occur on this shift EATING - SCORE: 0-UNK GROOMING: Activity did not occur on this shift GROOMING - SCORE: 0-UNK BATHING: Activity did not occur on this shift BATHING - SCORE: 0-UNK DRESSING - UPPER BODY: Activity did not occur on this shift Patient is not dressing in public clothing ARTICLES SCORE Total number of steps: 0 DRESSING - UPPER BODY - SCORE: 0-UNK DRESSING - LOWER BODY: Activity did not occur on this shift Patient is not dressing in public clothing ARTICLES SCORE Total number of steps: 0 DRESSING - LOWER BODY - SCORE: 0-UNK TOILETING: Activity did not occur on this shift TOILETING - SCORE: 0-UNK BLADDER MANAGEMENT: Activity did not occur on this shift BLADDER MANAGEMENT - SCORE: 7-IND BOWEL MANAGEMENT: Activity did not occur on this shift BOWEL MANAGEMENT - SCORE: 7-IND TRANSFERS: BED, CHAIR, WHEELCHAIR: TRANSFERS: BED, CHAIR, WHEELCHAIR - STEP 1: Does the patient require assistance of a person or device, or need extra time with bed, chair, or whe elchair transfers? Yes. TRANSFERS: BED, CHAIR, WHEELCHAIR - STEP 2: Does the patient require the assistance of a helper? Yes. TRANSFERS: BED, CHAIR, WHEELCHAIR - STEP 3: How much assistance does the patient require from the helper? Only supervision TRANSFERS: BED, CHAIR, WHEELCHAIR - SCORE: 5-SUP TRANSFERS: TOILET: Activity did not occur on this shift TRANSFERS: TOILET - SCORE: 0-UNK TRANSFERS: SHOWER: Activity did not occur on this shift TRANSFERS: SHOWER - SCORE: 0-UNK TRANSFERS: TUB: Activity did not occur on this shift TRANSFERS: TUB - SCORE: 0-UNK LOCOMOTION: WALK: LOCOMOTION: WALK - STEP 1: Does the patient need help from a person or device, or need extra time to walk 150 feet? Yes. LOCOMOTION: WALK - STEP 2: How much assistance does the patient require to walk a minimum of 150 feet? Only supervision, cuing, or coaxing LOCOMOTION: WALK - SCORE: 5-SUP LOCOMOTION: WHEELCHAIR: LOCOMOTION: WHEELCHAIR - STEP 1: Does the patient need help to go 150 feet in a wheelchair? Yes. LOCOMOTION: WHEELCHAIR - STEP 2: How much assistance does the patient need from the helper? Only supervision, cuing, or coaxing LOCOMOTION: WHEELCHAIR - SCORE: 5-SUP LOCOMOTION: STAIRS: LOCOMOTION: STAIRS - STEP 1: Does the patient need help to go up and down 12 to 14 stairs? Yes. LOCOMOTION: STAIRS - STEP 2: How much assistance does the patient need from the helper to go a minimum of 12 to 14 stairs? The pat ient goes less than 12 stairs, but at least 4 stairs LOCOMOTION: STAIRS - SCORE: 2-MAX COMPREHENSION: COMPREHENSION - SCORE: 0-UNK EXPRESSION EXPRESSION - SCORE: 0-UNK SOCIAL INTERACTION: SOCIAL INTERACTION - SCORE: 0-UNK PROBLEM SOLVING: PROBLEM SOLVING - SCORE: 0-UNK MEMORY: MEMORY - SCORE: 0-UNK SIGNATURE PANEL: The following modified sections: Transfers: Bed, Chair, Wheelchair - Score, Transfers: Toilet - Score , Locomotion: Walk - Score, Locomotion: Wheelchair - Score, Locomotion: Stairs - Score were [lionel negron] signed by Joe Lemus PTA on WedJan 03 2019 15:17:37 GMT-0500 (Central Daylight Time)
--- NOTE | 2019-01-03 18:28 | R.PN ---
ENCOUNTER DATE AND TIME: 01/03/2019 18:21 (CDT) NAME EDGARD DÍAZ DATE OF : 1930 DATE OF ADMISSION: 12/29/2018 15:49 (CDT) Liver CirrhosisCHIEF COMPLAINT: Debility and liver cirrhosis SUBJECTIVE: Pt denied any depression. Pt denied any Shortness of Breath. Doppler of lower extremities reveal no DVTs or significant PAD. Ambulated 300' with standby assistance using a rolling walker. Up and down 5 steps with standby stevie tance. Propelled wheelchair 250' with standby assistance. VITAL SIGNS Temperature: 98.7 F SBP/DBP: 117/59 Pulse: 97 Resp:16 MEDICATION ALLERGIES: Morphine Sulfate ENVIRONMENTAL ALLERGIES: None Known - Substance Allergies None Known - Other Allergies ADHESIVE TAPE NURSING: - Shower allowing shower ACTIVITIES OOB only with supervision THERAPIES: - Occupational Therapy Evaluate and Treat. - Physical Therapy Evaluate and Treat. PHYSICAL EXAM - Gen Alert and awake Lying in bed No apparent distress Oriented to: person, time, and place - Skin No breakdown No abnormalities - Eyes No abnormalities - ENMT No abnormalities - Neck No abnormalities - CVS RRR - Chest No abnormalities - Abd Distended - GI Positive fluid wave - No abnormalities - Ext Moderate edema in both lower extremities. - MSK 4+/5 weakness in both lower extremities. - Neuro No focal deficits - Psych No abnormalities ASSESSMENT: Pt. is a 88 yo Right-handed white female.On 12/19/2018 she was admitted to [facility] with diagnosis Liver Cirrhosis.Her impairment category is Medically Complex Conditions 17 - T [facility] Care (17.6).Pre-morbidly, Pt. was independent/mod-I in Self-Care, Sphincter Control, Transfer s Control, Locomotion, Communication, and Social Cognition; and she had good Sphincter Control.Curren tly, she has deficits of Self-Care, Transfers Control, Locomotion, Endurance, Balance, and Safety Susan reness.Pt. is now referred to [facility] for acute in-patient rehabilitation i n order to maximize patient's functional independence in activities of daily living, strength, ROM, a nd mobility.- Rehab Goal Patient has realistic goal of being discharged at assistance level 6-Keily to reside at Home with Fam fanny/Relatives. MDM/PLAN: - Physical Therapy Gait dysfunction - to improve, our physical therapists will perform initial evaluation of pt's statu s upon admission and devise an individualized program for Gait Training, and Wheel Chair mobility Inability to transfer - to improve, our physical therapists will perform initial evaluation of pt's status upon admission and devise an individualized program for Bed mobility Need for home safety evaluation - to improve, our physical therapists will perform initial evaluatio n of pt's status upon admission and devise an individualized program for Home Evaluation Need in caregiver upon discharge - to improve, our physical therapists will perform initial evaluati on of pt's status upon admission and devise an individualized program for Caregiver Training New precaution - to improve, our physical therapists will perform initial evaluation of pt's status upon admission and devise an individualized program for Patient precaution education Poor balance - to improve, our physical therapists will perform initial evaluation of pt's status up on admission and devise an individualized program for Balance Training Poor endurance - to improve, our physical therapists will perform initial evaluation of pt's status upon admission and devise an individualized program for Endurance Training Weakness - to improve, our physical therapists will perform initial evaluation of pt's status upon a dmission and devise an individualized program for Aquatic Therapy, Neuromuscular Reeducation, and Str engthening Achieving independence - to improve, our physical therapists will perform initial evaluation of pt's status upon admission and devise an individualized program for Community Reintegration Activities - Occupational Therapy ADL deficits - to improve, our occupation therapists will perform initial evaluation of pt's status upon admission and devise an individualized program for Bathing, Bed mobility, Community Reintegratio n, Cooking, Dressing, Eating, Fine Motor Skills, Grooming, Homemaking, Kitchen Mobility, Laundry, Pat ient Education, Safety Awareness, Splinting - Positioning, Transfers(Toilet, Tub, Shower), and Wheel Chair Management Need for managed care liaison - to improve, our occupation therapists will perform initial evaluation of pt's status upon admission and devise an individualized program for Caregiver Training Weakness - to improve, our occupation therapists will perform initial evaluation of pt's status upon admission and devise an individualized program for Aquatic Therapy, Balance, Endurance, UE ROM, and UE strengthening - Diet Type Continue [facility] soft ground - Diet - Liquid Texture Continue Regular - Tube Feed Continue N/A - Diet - Solid Texture Continue Regular - Shower allowing shower FUNCTIONAL STATUS: UPDATED AT WEEKLY TEAM CONFERENCE - Bladder Same accident frequency: 7-Ind - No accidents in the past 7 days - Bowel Same accident frequency: 7-Ind - No accidents in the past 7 days - Walking Same score based on distance walked: 3(>=150ft) - Wheelchair Same score based on distance traveled: 0(N/A) FUNCTIONAL STATUS: - Self-Care A. Eating sup B. Grooming sup C. Bathing [place] D. Dressing - [place] E. Dressing - Lower modA F. Toileting modA - Sphincter Control G: Bladder control Ind H: Bowel control Ind - Transfers Control I. Bed/Chair/Wheelchair [place] J. Toilet [place] K. Tub/Shower ADNO - Locomotion L. Walk/Wheelchair (C) [place] L. Walk/Wheelchair (W) [place] M. Stairs ADNO - Communication N. Comprehension (B) Ind O. Expression (B) Ind - Social Cognition P. Social Interaction Ind Q. Problem Solving Ind R. Memory Ind - Endurance Fair - Balance Fair - Safety Awareness Fair CURRENT FUNC. DEFICITS: Self-Care, Transfers Control, Locomotion, Endurance, Balance, and Safety Awareness SIGNATURE PANEL: (CDT)
--- NOTE | 2019-01-03 18:42 | P.PN ---
Subjective Date of Service: 01/04/19 Subjective: Improving, Working w/ PT The patient is seen and examined. Chart reviewed and case discussed with RN. No family at bedside. Review of Systems 10-point ROS is otherwise unremarkable Physical Examination - Vital Signs Temperature: 96.8 F Blood Pressure: 117/59 Pulse: 97 Respirations: 16 Pulse Ox (%): 97 - Physical Exam General: Alert, In no apparent distress HEENT: Atraumatic, PERRLA, EOMI Neck: Supple, JVD not distended Respiratory: Clear to auscultation bilaterally, Normal air movement Cardiovascular: Regular rate/rhythm, Normal S1 S2 Gastrointestinal: Normal bowel sounds, No tenderness Musculoskeletal: No tenderness Integumentary: No rashes Neurological: Normal speech, Normal tone, Normal affect Lymphatics: No axilla or inguinal lymphadenopathy - Studies Laboratory Data (last 24 hrs) 01/03/19 04:45: Sodium 138, Potassium 3.4 L, BUN 58 H, Creatinine 1.34 H, Glucose 98, Phosphorus 2.9, Magnesium 2.6 H 01/03/19 04:45: PT 13.8 H, INR 1.18 01/03/19 04:45: WBC 4.4 D, Hgb 9.3 L, Hct 27.5 L, Plt Count 100 L Microbiology Data (last 24 hrs): 12/31/18 22:25 Clean Catch Urine [place] Count - Final BETWEEN 10,000 & 100,000 CFU/ML 12/31/18 22:25 Clean Catch Urine - Final Assessment And Plan - Plan An 88-year-old female with: 1. Hepatorenal syndrome. Creatinine is improved. Appreciate Dr. Sequeira's input. 2. Acute hypotension. The patient was symptomatic yesterday. Diuretics have been held. 3. Cirrhosis secondary to hepatitis C, status post recent paracentesis. Ultrasound guided paracentesis unable to be done today as patient has not been NPO. We will need paracentesis - scheduled for tomorrow. Family has been explained that recurrent paracenteses has its own risks including bleeding, infection, sinus tract formation. The patient will receive albumin transfusion. 4. Hepatitis C, chronic without coma. 5. Severe protein-calorie malnutrition. 6. Generalized weakness, improving. We will continue with physical therapy as tolerated. 7. Anemia. We will continue to monitor H and H. 8. Acute metabolic encephalopathy, resolved likely due to elevated kidney function and possible hepatic encephalopathy and hypotension. Plan: Paracentesis in a.m. Overall poor prognosis. Hospice services were offered. The patient declined at this time. Family and patient do not quite understand the grave prognosis of her condition. At this point, the patient is in a recurrent cycle of fluid buildup and paracentesis.
[2019-01-03] MEDS: DOCUSATE NA 100 MG CAP PO SCH (20:02)
[2019-01-03] MEDS: PANTOPRAZOLE 40MG TABLET PO SCH (20:19)
--- NOTE | 2019-01-04 00:48 | FAST ---
SHIFT START DATE/TIME: 01/03/2019 19:00 (CDT) SHIFT END DATE/TIME: 01/04/2019 07:00 (CDT) NAME EDGARD DÍAZ DATE OF : 1930 DATE OF ADMISSION: 12/29/2018 15:49 (CDT) PHONE: AGE: 88 N# [id number] GENDER: Female ENCOUNTER PHYSICIAN: Dr. Valeriano Flannery M.D. 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 EATING: Activity did not occur on this shift EATING - SCORE: 0-UNK GROOMING: Activity did not occur on this shift GROOMING - SCORE: 0-UNK BATHING: Activity did not occur on this shift BATHING - SCORE: 0-UNK DRESSING - UPPER BODY: Patient is not dressing in public clothing ARTICLES SCORE Total number of steps: 0 DRESSING - UPPER BODY - SCORE: 0-UNK DRESSING - LOWER BODY: Patient is not dressing in public clothing ARTICLES SCORE Total number of steps: 0 DRESSING - LOWER BODY - SCORE: 0-UNK TOILETING: TOILETING - STEP 1: Does the patient require the assistance of a person or device, or need extra time with toileting? Yes . TOILETING - STEP 2: Does the patient require the assistance of a helper? Yes. TOILETING - STEP 3: How much assistance does the patient require from the helper? Hands-on assistance from the helper TOILETING - STEP 4: Of the 3 tasks: 1) Adjusting clothing prior to use, 2) Cleansing of perineal area, 3) Adjusting clot sabine after use; How many tasks does the patient perform WITHOUT assistance of the helper? No tasks; h elper performs all three tasks TOILETING - SCORE: 1-DEP BLADDER MANAGEMENT: [place] removes incontinent device (Depends, pull ups, etc.); cleans the patient after accident / inco ntinent episode; and, applies new incontinent device. BLADDER MANAGEMENT - SCORE: 1-DEP BLADDER MANAGEMENT - FREQUENCY OF ACCIDENTS: BLADDER MANAGEMENT(FA) - STEP 1: How many accidents has the patient had during the current shift? 1 BOWEL MANAGEMENT: BOWEL MANAGEMENT - STEP 1: Does the patient control bowels completely and intentionally without equipment devices or medications AND is always continent? No. BOWEL MANAGEMENT - STEP 2: Does the patient require the assistance of a helper? No, patient requires medication for control such as stool softeners, suppositories, laxatives, enemas, or OTC medications BOWEL MANAGEMENT - SCORE: 6-JUAN FRANCISCO TRANSFERS: BED, CHAIR, WHEELCHAIR: TRANSFERS: BED, CHAIR, WHEELCHAIR - STEP 1: Does the patient require assistance of a person or device, or need extra time with bed, chair, or whe elchair transfers? Yes. TRANSFERS: BED, CHAIR, WHEELCHAIR - STEP 2: Does the patient require the assistance of a helper? Yes. TRANSFERS: BED, CHAIR, WHEELCHAIR - STEP 3: How much assistance does the patient require from the helper? Lifting of the legs TRANSFERS: BED, CHAIR, WHEELCHAIR - STEP 4: How many legs does the patient require the helper to lift? one leg TRANSFERS: BED, CHAIR, WHEELCHAIR - SCORE: 4-MIN TRANSFERS: TOILET: TRANSFERS: TOILET - STEP 1: Does the patient require the assistance of a person or device, or need extra time with toilet transfe rs? Yes. TRANSFERS: TOILET - STEP 2: Does the patient require the assistance of a helper? Yes. TRANSFERS: TOILET - STEP 3: How much assistance does the patient require from the helper? Patient performs half or more of the tr ansferring tasks TRANSFERS: TOILET - STEP 4: Does the patient need only incidental help such as contact guard or steadying during toilet transfer? No. Patient needs more than incidental help TRANSFERS: TOILET - SCORE: 3-MOD TRANSFERS: SHOWER: Activity did not occur on this shift TRANSFERS: SHOWER - SCORE: 0-UNK TRANSFERS: TUB: Activity did not occur on this shift TRANSFERS: TUB - SCORE: 0-UNK LOCOMOTION: WALK: Activity did not occur on this shift LOCOMOTION: WALK - SCORE: 0-UNK LOCOMOTION: WHEELCHAIR: Activity did not occur on this shift LOCOMOTION: WHEELCHAIR - SCORE: 0-UNK COMPREHENSION: COMPREHENSION: TYPE: Both COMPREHENSION - STEP 1: Does the patient require help from a person or device, or need extra time to understand complex and a bstract ideas (such as current events, finances, discharge planning, medical issues, relationships, e tc)? No. COMPREHENSION - STEP 2: Does the patient need extra time, require an assistive device (such as glasses for visual comprehensi on or a hearing aid for auditory comprehension) or does s/he have mild difficulty understanding compl ex and abstract information? Yes. COMPREHENSION - SCORE: 6-JUAN FRANCISCO EXPRESSION EXPRESSION: TYPE: Both EXPRESSION - STEP 1: Does the patient require help from a person or device, or need extra time expressing complex and abst ract ideas (such as current events, finances, discharge planning, medical issues, relationships, etc) ? No. EXPRESSION - STEP 2: Does the patient need extra time, require an assistive device (such as augmentive communication syste m or a communication board), OR does s/he have mild difficulty expressing complex and abstract ideas (including mild dysarthria or mild word-find problems)? Yes. EXPRESSION - SCORE: 6-JUAN FRANCISCO SOCIAL INTERACTION: SOCIAL INTERACTION - STEP 1: Does the patient require a helper to interact with others in social and therapeutic situations? No. SOCIAL INTERACTION - STEP 2: Does the patient need extra time in social situations, OR does s/he interact with staff, other patien ts, and family members ONLY in structured environments, OR does s/he require medication for social in teraction? Yes, patient needs extra time SOCIAL INTERACTION - SCORE: 6-JUAN FRANCISCO PROBLEM SOLVING: PROBLEM SOLVING - STEP 1: Does the patient need help from a person or device, or need extra time to solve complex problems such as managing a checking account or confronting interpersonal problems? Yes. PROBLEM SOLVING - STEP 2: Does the patient solve basic routine problems half or more of the time? Yes. PROBLEM SOLVING - STEP 3: How often does the patient need help to solve basic routine problems? 10%-24% of the time PROBLEM SOLVING - SCORE: 4-MIN MEMORY: MEMORY - STEP 1: Does the patient need help from a person or device, or need extra time to remember frequently encount ered people, daily routines, and executing requests? No. MEMORY - STEP 2: Does the patient have slight difficulty recognizing frequently encountered people, daily routines, or executing requests without the need for repetition or using self-initiated or environmental cues to remember? Yes. MEMORY - SCORE: 6-JUAN FRANCISCO SIGNATURE PANEL: The following modified sections: Eating - Score, Grooming - Score, Dressing - Upper Body - Score, Jeffery ssing - Lower Body - Score, Toileting - Score, Bladder Management - Score, Bowel Management - Score, Transfers: Bed, Chair, Wheelchair - Score, Transfers: Toilet - Score, Transfers: Shower - Score, [place] sfers: Tub - Score, Locomotion: Walk - Score, Locomotion: Wheelchair - Score, Comprehension - Score, Expression - Score, Social Interaction - Score, Problem Solving - Score, Memory - Score were [electro nically] signed by Chitra Hurt CNA on WedJan 04 2019 00:48:08 GMT-0500 (Central Daylight Time)
[2019-01-04] MEDS: LACTULOSE 20 GM/30 ML UCUP PO SCH ×3 (07:20→20:30)
[2019-01-04] MEDS: JUVEN PACKET PO SCH ×3 (07:21→20:31)
[2019-01-04] MEDS: FE SULF/FA/VIT B COMP & C TAB PO SCH ×2 (07:21→11:48)
[2019-01-04] MEDS: FERROUS SULFATE 325 MG TAB PO SCH ×2 (07:21→11:48)
[2019-01-04] MEDS: MAGNESIUM OXIDE 400 MG TAB PO SCH ×3 (07:21→20:31)
[2019-01-04] MEDS: ENSURE ENLIVE 237 ML CAN PO SCH ×3 (07:21→20:30)
[2019-01-04] MEDS: PROMOD 30 ML DOSE PO SCH ×3 (07:22→20:32)
[2019-01-04] MEDS: SODIUM CHLORIDE 0.9% 10ML INJ IV SCH ×3 (07:22→20:00)
[2019-01-04] MEDS: GABAPENTIN 100 MG CAP PO SCH ×3 (07:22→20:31)
[2019-01-04] MEDS: MIDODRINE HCL 5 MG TABLET PO SCH ×3 (07:48→20:31)
[2019-01-04] MEDS: MUPIROCIN 2% OINT 22GM TUBE TOP SCH ×2 (07:48→20:00)
[2019-01-04] MEDS: NYSTATIN PWDR 100000 UNIT/GM TOP SCH ×2 (07:51→20:00)
[2019-01-04] MEDS ORDERED: ALBUMIN HUMAN 25% 200 ML IV ONE (10:30)
[2019-01-04 12:13] LABS: Appearance CLEAR (CLEAR); Body Fluid Source PERITONEAL; Body Fluid WBC 241 /mm^3; Color of fluid Yellow (COLORLESS)
--- NOTE | 2019-01-04 12:29 | RAD REPORT ---
EXAM DESCRIPTION: US - Paracentesis Proc Guidance - 01/04/2019 10:11 am CLINICAL HISTORY: Liver disease with ascites FINDINGS: The risks, benefits and alternatives to the procedure were explained to the patient and in formed consent obtained. The skin and subcutaneous tissues were anesthetized with Lidocaine. Under sonographic guidance an 8 F rench catheter was placed into the right lower quadrant. 8 liters of yellow fluid was removed and sen t to the lab. The patient experienced no immediate complication. IMPRESSION: Paracentesis
[2019-01-04] MEDS ORDERED: ALBUMIN HUMAN 25% 100 ML IV ONE (12:59)
--- NOTE | 2019-01-04 15:23 | FAST ---
SHIFT START DATE/TIME: 01/04/2019 07:00 (CDT) SHIFT END DATE/TIME: 01/04/2019 19:00 (CDT) NAME EDGARD DÍAZ DATE OF : 1930 DATE OF ADMISSION: 12/29/2018 15:49 (CDT) PHONE: AGE: 88 N# [id number] GENDER: Female ENCOUNTER PHYSICIAN: Dr. Valeriano Flannery M.D. 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 EATING: EATING - STEP 1: Does the patient require the assistance of a person or device, or need extra time when eating? Yes. EATING - STEP 2: Does the patient require the assistance of a helper? Yes. EATING - STEP 3: Does the patient perform half or more of the eating tasks? Yes. EATING - STEP 4: Does the patient need only supervision, cuing, coaxing OR help to apply an orthosis OR help to cut fo od, open containers, pour liquids, or butter bread? Yes. EATING - SCORE: 5-SUP GROOMING: Activity did not occur on this shift GROOMING - SCORE: 0-UNK BATHING: Activity did not occur on this shift BATHING - SCORE: 0-UNK DRESSING - UPPER BODY: Activity did not occur on this shift ARTICLES SCORE Total number of steps: 0 DRESSING - UPPER BODY - SCORE: 0-UNK DRESSING - LOWER BODY: Activity did not occur on this shift ARTICLES SCORE Total number of steps: 0 DRESSING - LOWER BODY - SCORE: 0-UNK TOILETING: TOILETING - STEP 1: Does the patient require the assistance of a person or device, or need extra time with toileting? Yes . TOILETING - STEP 2: Does the patient require the assistance of a helper? Yes. TOILETING - STEP 3: How much assistance does the patient require from the helper? Hands-on assistance from the helper TOILETING - STEP 4: Of the 3 tasks: 1) Adjusting clothing prior to use, 2) Cleansing of perineal area, 3) Adjusting clot sabine after use; How many tasks does the patient perform WITHOUT assistance of the helper? Two tasks TOILETING - SCORE: 3-MOD BLADDER MANAGEMENT: BLADDER MANAGEMENT - STEP 1: Does the patient control the bladder completely and intentionally without equipment or devices or med ications, and is always continent? No. BLADDER MANAGEMENT - STEP 2: Does the patient require the assistance of a helper? No, patient requires and independently uses an a ssistive device, such as a urinal, bedpan, bedside commode, catheter, absorbent pad, or collecting de vice BLADDER MANAGEMENT - SCORE: 6-JUAN FRANCISCO BOWEL MANAGEMENT: Activity did not occur on this shift BOWEL MANAGEMENT - SCORE: 7-IND TRANSFERS: BED, CHAIR, WHEELCHAIR: TRANSFERS: BED, CHAIR, WHEELCHAIR - STEP 1: Does the patient require assistance of a person or device, or need extra time with bed, chair, or whe elchair transfers? Yes. TRANSFERS: BED, CHAIR, WHEELCHAIR - STEP 2: Does the patient require the assistance of a helper? Yes. TRANSFERS: BED, CHAIR, WHEELCHAIR - STEP 3: How much assistance does the patient require from the helper? Steadying/guiding assistance TRANSFERS: BED, CHAIR, WHEELCHAIR - SCORE: 4-MIN TRANSFERS: TOILET: TRANSFERS: TOILET - STEP 1: Does the patient require the assistance of a person or device, or need extra time with toilet transfe rs? Yes. TRANSFERS: TOILET - STEP 2: Does the patient require the assistance of a helper? Yes. TRANSFERS: TOILET - STEP 3: How much assistance does the patient require from the helper? Patient performs half or more of the tr ansferring tasks TRANSFERS: TOILET - STEP 4: Does the patient need only incidental help such as contact guard or steadying during toilet transfer? Yes. TRANSFERS: TOILET - SCORE: 4-MIN TRANSFERS: SHOWER: Activity did not occur on this shift TRANSFERS: SHOWER - SCORE: 0-UNK TRANSFERS: TUB: Activity did not occur on this shift TRANSFERS: TUB - SCORE: 0-UNK LOCOMOTION: WALK: Activity did not occur on this shift LOCOMOTION: WALK - SCORE: 0-UNK LOCOMOTION: WHEELCHAIR: Activity did not occur on this shift LOCOMOTION: WHEELCHAIR - SCORE: 0-UNK COMPREHENSION: COMPREHENSION: TYPE: Both COMPREHENSION - STEP 1: Does the patient require help from a person or device, or need extra time to understand complex and a bstract ideas (such as current events, finances, discharge planning, medical issues, relationships, e tc)? No. COMPREHENSION - STEP 2: Does the patient need extra time, require an assistive device (such as glasses for visual comprehensi on or a hearing aid for auditory comprehension) or does s/he have mild difficulty understanding compl ex and abstract information? Yes. COMPREHENSION - SCORE: 6-JUAN FRANCISCO EXPRESSION EXPRESSION: TYPE: Both EXPRESSION - STEP 1: Does the patient require help from a person or device, or need extra time expressing complex and abst ract ideas (such as current events, finances, discharge planning, medical issues, relationships, etc) ? No. EXPRESSION - STEP 2: Does the patient need extra time, require an assistive device (such as augmentive communication syste m or a communication board), OR does s/he have mild difficulty expressing complex and abstract ideas (including mild dysarthria or mild word-find problems)? Yes. EXPRESSION - SCORE: 6-JUAN FRANCISCO SOCIAL INTERACTION: SOCIAL INTERACTION - STEP 1: Does the patient require a helper to interact with others in social and therapeutic situations? No. SOCIAL INTERACTION - STEP 2: Does the patient need extra time in social situations, OR does s/he interact with staff, other patien ts, and family members ONLY in structured environments, OR does s/he require medication for social in teraction? Yes, patient needs extra time SOCIAL INTERACTION - SCORE: 6-JUAN FRANCISCO PROBLEM SOLVING: PROBLEM SOLVING - STEP 1: Does the patient need help from a person or device, or need extra time to solve complex problems such as managing a checking account or confronting interpersonal problems? No. PROBLEM SOLVING - STEP 2: Does the patient require extra time to make decisions or solve problems, OR does s/he have slight dif ficulty reading, initiating, or self-correcting in unfamiliar situations? Yes, patient needs extra ti me. PROBLEM SOLVING - SCORE: 6-JUAN FRANCISCO MEMORY: MEMORY - STEP 1: Does the patient need help from a person or device, or need extra time to remember frequently encount ered people, daily routines, and executing requests? Yes. MEMORY - STEP 2: How often does the patient need help to remember frequently encountered people, daily routines, and e xecuting requests? Less than 10% of the time MEMORY - SCORE: 5-SUP SIGNATURE PANEL: The following modified sections: Eating - Score, Grooming - Score, Bathing - Score, Dressing - Upper Body - Score, Dressing - Lower Body - Score, Toileting - Score, Bladder Management - Score, Bowel Man agement - Score, Transfers: Bed, Chair, Wheelchair - Score, Transfers: Toilet - Score, Transfers: Mariangel wer - Score, Transfers: Tub - Score, Locomotion: Walk - Score, Locomotion: Wheelchair - Score, Compre hension - Score, Expression - Score, Social Interaction - Score, Problem Solving - Score, Memory - Sc ore were [electronically] signed by Abdon William on WedJan 04 2019 15:23:35 GMT-0500 (Central Daylight Time)
--- NOTE | 2019-01-04 15:32 | FAST ---
ENCOUNTER DATE AND TIME: 01/04/2019 08:00 (CDT) NAME EDGARD DÍAZ DATE OF : 1930 DATE OF ADMISSION: 12/29/2018 15:49 (CDT) PHONE: AGE: 88 N# [id number] GENDER: Female ENCOUNTER PHYSICIAN: Dr. Valeriano Flannery M.D. 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 EATING: Activity did not occur on this shift EATING - SCORE: 0-UNK GROOMING: Activity did not occur on this shift GROOMING - SCORE: 0-UNK BATHING: Activity did not occur on this shift BATHING - SCORE: 0-UNK DRESSING - UPPER BODY: Activity did not occur on this shift Patient is not dressing in public clothing ARTICLES SCORE Total number of steps: 0 DRESSING - UPPER BODY - SCORE: 0-UNK DRESSING - LOWER BODY: Activity did not occur on this shift Patient is not dressing in public clothing ARTICLES SCORE Total number of steps: 0 DRESSING - LOWER BODY - SCORE: 0-UNK TOILETING: Activity did not occur on this shift TOILETING - SCORE: 0-UNK BLADDER MANAGEMENT: Activity did not occur on this shift BLADDER MANAGEMENT - SCORE: 7-IND BOWEL MANAGEMENT: Activity did not occur on this shift BOWEL MANAGEMENT - SCORE: 7-IND TRANSFERS: BED, CHAIR, WHEELCHAIR: TRANSFERS: BED, CHAIR, WHEELCHAIR - STEP 1: Does the patient require assistance of a person or device, or need extra time with bed, chair, or whe elchair transfers? Yes. TRANSFERS: BED, CHAIR, WHEELCHAIR - STEP 2: Does the patient require the assistance of a helper? Yes. TRANSFERS: BED, CHAIR, WHEELCHAIR - STEP 3: How much assistance does the patient require from the helper? Only supervision TRANSFERS: BED, CHAIR, WHEELCHAIR - SCORE: 5-SUP TRANSFERS: TOILET: Activity did not occur on this shift TRANSFERS: TOILET - SCORE: 0-UNK TRANSFERS: SHOWER: Activity did not occur on this shift TRANSFERS: SHOWER - SCORE: 0-UNK TRANSFERS: TUB: Activity did not occur on this shift TRANSFERS: TUB - SCORE: 0-UNK LOCOMOTION: WALK: LOCOMOTION: WALK - STEP 1: Does the patient need help from a person or device, or need extra time to walk 150 feet? Yes. LOCOMOTION: WALK - STEP 2: How much assistance does the patient require to walk a minimum of 150 feet? Only supervision, cuing, or coaxing LOCOMOTION: WALK - SCORE: 5-SUP LOCOMOTION: WHEELCHAIR: LOCOMOTION: WHEELCHAIR - STEP 1: Does the patient need help to go 150 feet in a wheelchair? Yes. LOCOMOTION: WHEELCHAIR - STEP 2: How much assistance does the patient need from the helper? Only supervision, cuing, or coaxing LOCOMOTION: WHEELCHAIR - SCORE: 5-SUP LOCOMOTION: STAIRS: LOCOMOTION: STAIRS - STEP 1: Does the patient need help to go up and down 12 to 14 stairs? Yes. LOCOMOTION: STAIRS - STEP 2: How much assistance does the patient need from the helper to go a minimum of 12 to 14 stairs? The pat ient goes less than 12 stairs, but at least 4 stairs LOCOMOTION: STAIRS - SCORE: 2-MAX COMPREHENSION: COMPREHENSION - SCORE: 0-UNK EXPRESSION EXPRESSION - SCORE: 0-UNK SOCIAL INTERACTION: SOCIAL INTERACTION - SCORE: 0-UNK PROBLEM SOLVING: PROBLEM SOLVING - SCORE: 0-UNK MEMORY: MEMORY - SCORE: 0-UNK SIGNATURE PANEL: The following modified sections: Transfers: Bed, Chair, Wheelchair - Score, Transfers: Toilet - Score , Locomotion: Walk - Score, Locomotion: Wheelchair - Score, Locomotion: Stairs - Score were [lionel negron] signed by Joe Lemus PTA on WedJan 04 2019 15:31:46 GMT-0500 (Central Daylight Time)
--- NOTE | 2019-01-04 19:08 | R.PN ---
ENCOUNTER DATE AND TIME: 01/04/2019 19:04 (CDT) NAME EDGARD DÍAZ DATE OF : 1930 DATE OF ADMISSION: 12/29/2018 15:49 (CDT) Liver CirrhosisCHIEF COMPLAINT: Debility and liver cirrhosis SUBJECTIVE: Pt denied any depression. Pt denied any Shortness of Breath. Doppler of lower extremities reveal no DVTs or significant PAD. Ambulated 459' with standby assistance using a rolling walker. Up and down 5 steps with standby stevie tance. Propelled wheelchair 250' with standby assistance. VITAL SIGNS Temperature: 98.7 F SBP/DBP: 117/59 Pulse: 97 Resp:16 MEDICATION ALLERGIES: Morphine Sulfate ENVIRONMENTAL ALLERGIES: None Known - Substance Allergies None Known - Other Allergies ADHESIVE TAPE NURSING: - Shower allowing shower ACTIVITIES OOB only with supervision THERAPIES: - Occupational Therapy Evaluate and Treat. - Physical Therapy Evaluate and Treat. PHYSICAL EXAM - Gen Alert and awake Lying in bed No apparent distress Oriented to: person, time, and place - Skin No breakdown No abnormalities - Eyes No abnormalities - ENMT No abnormalities - Neck No abnormalities - CVS RRR - Chest No abnormalities - Abd Distended - GI Positive fluid wave - No abnormalities - Ext Moderate edema in both lower extremities. - MSK 4+/5 weakness in both lower extremities. - Neuro No focal deficits - Psych No abnormalities ASSESSMENT: Pt. is a 88 yo Right-handed white female.On 12/19/2018 she was admitted to [facility] with diagnosis Liver Cirrhosis.Her impairment category is Medically Complex Conditions 17 - T [facility] Care (17.6).Pre-morbidly, Pt. was independent/mod-I in Self-Care, Sphincter Control, Transfer s Control, Locomotion, Communication, and Social Cognition; and she had good Sphincter Control.Curren tly, she has deficits of Self-Care, Transfers Control, Locomotion, Endurance, Balance, and Safety Susan reness.Pt. is now referred to [facility] for acute in-patient rehabilitation i n order to maximize patient's functional independence in activities of daily living, strength, ROM, a nd mobility.- Rehab Goal Patient has realistic goal of being discharged at assistance level 6-Keily to reside at Home with Fam fanny/Relatives. MDM/PLAN: - Physical Therapy Gait dysfunction - to improve, our physical therapists will perform initial evaluation of pt's statu s upon admission and devise an individualized program for Gait Training, and Wheel Chair mobility Inability to transfer - to improve, our physical therapists will perform initial evaluation of pt's status upon admission and devise an individualized program for Bed mobility Need for home safety evaluation - to improve, our physical therapists will perform initial evaluatio n of pt's status upon admission and devise an individualized program for Home Evaluation Need in caregiver upon discharge - to improve, our physical therapists will perform initial evaluati on of pt's status upon admission and devise an individualized program for Caregiver Training New precaution - to improve, our physical therapists will perform initial evaluation of pt's status upon admission and devise an individualized program for Patient precaution education Poor balance - to improve, our physical therapists will perform initial evaluation of pt's status up on admission and devise an individualized program for Balance Training Poor endurance - to improve, our physical therapists will perform initial evaluation of pt's status upon admission and devise an individualized program for Endurance Training Weakness - to improve, our physical therapists will perform initial evaluation of pt's status upon a dmission and devise an individualized program for Aquatic Therapy, Neuromuscular Reeducation, and Str engthening Achieving independence - to improve, our physical therapists will perform initial evaluation of pt's status upon admission and devise an individualized program for Community Reintegration Activities - Occupational Therapy ADL deficits - to improve, our occupation therapists will perform initial evaluation of pt's status upon admission and devise an individualized program for Bathing, Bed mobility, Community Reintegratio n, Cooking, Dressing, Eating, Fine Motor Skills, Grooming, Homemaking, Kitchen Mobility, Laundry, Pat ient Education, Safety Awareness, Splinting - Positioning, Transfers(Toilet, Tub, Shower), and Wheel Chair Management Need for health care coach - to improve, our occupation therapists will perform initial evaluation of pt's status upon admission and devise an individualized program for Caregiver Training Weakness - to improve, our occupation therapists will perform initial evaluation of pt's status upon admission and devise an individualized program for Aquatic Therapy, Balance, Endurance, UE ROM, and UE strengthening - Diet Type Continue [facility] soft ground - Diet - Liquid Texture Continue Regular - Tube Feed Continue N/A - Diet - Solid Texture Continue Regular - Shower allowing shower FUNCTIONAL STATUS: UPDATED AT WEEKLY TEAM CONFERENCE - Bladder Same accident frequency: 7-Ind - No accidents in the past 7 days - Bowel Same accident frequency: 7-Ind - No accidents in the past 7 days - Walking Same score based on distance walked: 3(>=150ft) - Wheelchair Same score based on distance traveled: 0(N/A) FUNCTIONAL STATUS: - Self-Care A. Eating sup B. Grooming sup C. Bathing [place] D. Dressing - [place] E. Dressing - Lower modA F. Toileting modA - Sphincter Control G: Bladder control Ind H: Bowel control Ind - Transfers Control I. Bed/Chair/Wheelchair [place] J. Toilet [place] K. Tub/Shower ADNO - Locomotion L. Walk/Wheelchair (C) [place] L. Walk/Wheelchair (W) [place] M. Stairs ADNO - Communication N. Comprehension (B) Ind O. Expression (B) Ind - Social Cognition P. Social Interaction Ind Q. Problem Solving Ind R. Memory Ind - Endurance Fair - Balance Fair - Safety Awareness Fair CURRENT FUNC. DEFICITS: Self-Care, Transfers Control, Locomotion, Endurance, Balance, and Safety Awareness SIGNATURE PANEL: (CDT)
[2019-01-04] MEDS ORDERED: Rifaximin 550 MG Tab PO SCH (20:00)
[2019-01-04] MEDS: DOCUSATE NA 100 MG CAP PO SCH (20:30)
[2019-01-04] MEDS: PANTOPRAZOLE 40MG TABLET PO SCH (20:31)
--- NOTE | 2019-01-05 00:33 | PN ---
Date of Progress Note: 01/04/2019 Subjective: The patient was admitted with significant acute kidney injury secondary to compartment. The patient will undergo recurrent paracentesis. Today, another session of paracentesis. Objective: Vital Signs: Blood pressure 109/70, pulse of 88. Chest: Clear to auscultation. Heart: S1, S2. Systolic murmur. Abdomen: Ascites. Extremities: No edema. Neurological: Alert and oriented. Nonfocal. The patient had paracentesis of 8 L today. Laboratory Data: WBC 4.4, H and H 9.3/27.5, platelets of 100. Sodium 138, potassium 3.4, bicarb 29, BUN 58, and creatinine 1.3, calcium 8.2, phosphorus 2.9, magnesium 2.6. Current Medications: The patient is on includes: 1.Ferrous sulfate. 2.Lactulose. 3.Melatonin,. 4.Naprosyn. 5.Tramadol. Assessment And Plan: 1.Acute kidney injury secondary to compartment syndrome, back to base line. 2.Hypertension, currently dependent on midodrine. We will continue. 3.Cirrhosis. P.r.n. paracentesis. Today, had 8 liters of paracentesis. We will follow up. 4.Deconditioning. Continue physical therapy and occupational therapy. ANDREA/GLYNN Voice ID: [id number] Report ID: [id number]
--- NOTE | 2019-01-05 02:12 | FAST ---
SHIFT START DATE/TIME: 01/04/2019 19:00 (CDT) SHIFT END DATE/TIME: 01/05/2019 07:00 (CDT) NAME EDGARD DÍAZ DATE OF : 1930 DATE OF ADMISSION: 12/29/2018 15:49 (CDT) PHONE: AGE: 88 N# [id number] GENDER: Female ENCOUNTER PHYSICIAN: Dr. Valeriano Flannery M.D. 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 EATING: Activity did not occur on this shift EATING - SCORE: 0-UNK GROOMING: Activity did not occur on this shift GROOMING - SCORE: 0-UNK BATHING: Activity did not occur on this shift BATHING - SCORE: 0-UNK DRESSING - UPPER BODY: Patient is not dressing in public clothing ARTICLES SCORE Total number of steps: 0 DRESSING - UPPER BODY - SCORE: 0-UNK DRESSING - LOWER BODY: Patient is not dressing in public clothing ARTICLES SCORE Total number of steps: 0 DRESSING - LOWER BODY - SCORE: 0-UNK TOILETING: TOILETING - STEP 1: Does the patient require the assistance of a person or device, or need extra time with toileting? Yes . TOILETING - STEP 2: Does the patient require the assistance of a helper? Yes. TOILETING - STEP 3: How much assistance does the patient require from the helper? Only supervision TOILETING - SCORE: 5-SUP BLADDER MANAGEMENT: BLADDER MANAGEMENT - STEP 1: Does the patient control the bladder completely and intentionally without equipment or devices or med ications, and is always continent? Yes. BLADDER MANAGEMENT - SCORE: 7-IND BOWEL MANAGEMENT: BOWEL MANAGEMENT - STEP 1: Does the patient control bowels completely and intentionally without equipment devices or medications AND is always continent? No. BOWEL MANAGEMENT - STEP 2: Does the patient require the assistance of a helper? Yes. BOWEL MANAGEMENT - STEP 3: How much assistance does the patient require from the helper? Patient requires moderate assistance - performs 50% to 74% of bowel management tasks BOWEL MANAGEMENT - SCORE: 3-MOD TRANSFERS: BED, CHAIR, WHEELCHAIR: TRANSFERS: BED, CHAIR, WHEELCHAIR - STEP 1: Does the patient require assistance of a person or device, or need extra time with bed, chair, or whe elchair transfers? Yes. TRANSFERS: BED, CHAIR, WHEELCHAIR - STEP 2: Does the patient require the assistance of a helper? Yes. TRANSFERS: BED, CHAIR, WHEELCHAIR - STEP 3: How much assistance does the patient require from the helper? Steadying/guiding assistance TRANSFERS: BED, CHAIR, WHEELCHAIR - SCORE: 4-MIN TRANSFERS: TOILET: TRANSFERS: TOILET - STEP 1: Does the patient require the assistance of a person or device, or need extra time with toilet transfe rs? Yes. TRANSFERS: TOILET - STEP 2: Does the patient require the assistance of a helper? Yes. TRANSFERS: TOILET - STEP 3: How much assistance does the patient require from the helper? Patient performs half or more of the tr ansferring tasks TRANSFERS: TOILET - STEP 4: Does the patient need only incidental help such as contact guard or steadying during toilet transfer? Yes. TRANSFERS: TOILET - SCORE: 4-MIN TRANSFERS: SHOWER: Activity did not occur on this shift TRANSFERS: SHOWER - SCORE: 0-UNK TRANSFERS: TUB: Activity did not occur on this shift TRANSFERS: TUB - SCORE: 0-UNK LOCOMOTION: WALK: Activity did not occur on this shift LOCOMOTION: WALK - SCORE: 0-UNK LOCOMOTION: WHEELCHAIR: Activity did not occur on this shift LOCOMOTION: WHEELCHAIR - SCORE: 0-UNK COMPREHENSION: COMPREHENSION: TYPE: Both COMPREHENSION - STEP 1: Does the patient require help from a person or device, or need extra time to understand complex and a bstract ideas (such as current events, finances, discharge planning, medical issues, relationships, e tc)? No. COMPREHENSION - STEP 2: Does the patient need extra time, require an assistive device (such as glasses for visual comprehensi on or a hearing aid for auditory comprehension) or does s/he have mild difficulty understanding compl ex and abstract information? No. COMPREHENSION - SCORE: 7-IND EXPRESSION EXPRESSION: TYPE: Both EXPRESSION - STEP 1: Does the patient require help from a person or device, or need extra time expressing complex and abst ract ideas (such as current events, finances, discharge planning, medical issues, relationships, etc) ? No. EXPRESSION - STEP 2: Does the patient need extra time, require an assistive device (such as augmentive communication syste m or a communication board), OR does s/he have mild difficulty expressing complex and abstract ideas (including mild dysarthria or mild word-find problems)? No. EXPRESSION - SCORE: 7-IND SOCIAL INTERACTION: SOCIAL INTERACTION - STEP 1: Does the patient require a helper to interact with others in social and therapeutic situations? No. SOCIAL INTERACTION - STEP 2: Does the patient need extra time in social situations, OR does s/he interact with staff, other patien ts, and family members ONLY in structured environments, OR does s/he require medication for social in teraction? No. SOCIAL INTERACTION - SCORE: 7-IND PROBLEM SOLVING: PROBLEM SOLVING - STEP 1: Does the patient need help from a person or device, or need extra time to solve complex problems such as managing a checking account or confronting interpersonal problems? No. PROBLEM SOLVING - STEP 2: Does the patient require extra time to make decisions or solve problems, OR does s/he have slight dif ficulty reading, initiating, or self-correcting in unfamiliar situations? No. PROBLEM SOLVING - SCORE: 7-IND MEMORY: MEMORY - STEP 1: Does the patient need help from a person or device, or need extra time to remember frequently encount ered people, daily routines, and executing requests? No. MEMORY - STEP 2: Does the patient have slight difficulty recognizing frequently encountered people, daily routines, or executing requests without the need for repetition or using self-initiated or environmental cues to remember? No. MEMORY - SCORE: 7-IND SIGNATURE PANEL: The following modified sections: Eating - Score, Grooming - Score, Bathing - Score, Dressing - Upper Body - Score, Dressing - Lower Body - Score, Toileting - Score, Bladder Management - Score, Bowel Man agement - Score, Transfers: Bed, Chair, Wheelchair - Score, Transfers: Toilet - Score, Transfers: Mariangel wer - Score, Transfers: Tub - Score, Locomotion: Walk - Score, Locomotion: Wheelchair - Score, Compre hension - Score, Expression - Score, Social Interaction - Score, Problem Solving - Score, Memory - Sc ore were [electronically] signed by Nellie Griffin CNA on WedJan 05 2019 02:11:06 T-0500 ([place] Da ylight Time)
[2019-01-05 05:58] LABS: Absolute Lymphocytes (CBC) 0.7 K/uL (0.7-4.9); Absolute Monocytes 0.5 K/uL (0.1-1.3); Absolute Neutrophil 2.7 K/uL (1.8-8.0); Basophils % 0.7 % (0-1.3); Eosinophils % 4.3 % (0-4.4); Hematocrit 25.3 % (36.0-45.0); Lymphocytes % 17.8 % (15.3-44.8); MPV 8.6 fL (7.6-11.3); Monocytes % 12.4 % (3.3-12.3)
[2019-01-05 06:07] LABS: Albumin 2.8 g/dL (3.4-5.0); Bilirubin Total 0.9 mg/dL (0.2-1.0); Potassium 3.4 mmol/L (3.5-5.1); Prealbumin 5.3 mg/dL (20-40); Protein, Total 5.8 g/dL (6.4-8.2)
[2019-01-05] MEDS: JUVEN PACKET PO SCH ×2 (08:00→19:43)
[2019-01-05] MEDS: NYSTATIN PWDR 100000 UNIT/GM TOP SCH ×2 (08:00→19:45)
[2019-01-05] MEDS: ENSURE ENLIVE 237 ML CAN PO SCH ×3 (08:00→19:43)
[2019-01-05] MEDS: MUPIROCIN 2% OINT 22GM TUBE TOP SCH ×2 (08:02→19:44)
[2019-01-05] MEDS: LACTULOSE 20 GM/30 ML UCUP PO SCH ×2 (08:03→19:43)
[2019-01-05] MEDS: SODIUM CHLORIDE 0.9% 10ML INJ IV SCH ×2 (08:03→19:45)
[2019-01-05] MEDS: PROMOD 30 ML DOSE PO SCH ×2 (08:05→19:43)
[2019-01-05] MEDS: FE SULF/FA/VIT B COMP & C TAB PO SCH (08:07)
[2019-01-05] MEDS: MAGNESIUM OXIDE 400 MG TAB PO SCH ×2 (08:07→19:44)
[2019-01-05] MEDS: MIDODRINE HCL 5 MG TABLET PO SCH ×3 (08:10→20:08)
[2019-01-05] MEDS: FERROUS SULFATE 325 MG TAB PO SCH (08:11)
[2019-01-05] MEDS: GABAPENTIN 100 MG CAP PO SCH ×3 (08:11→20:08)
--- NOTE | 2019-01-05 09:34 | FAST ---
SHIFT START DATE/TIME: 01/05/2019 07:00 (CDT) SHIFT END DATE/TIME: 01/05/2019 19:00 (CDT) NAME EDGARD DÍAZ DATE OF : 1930 DATE OF ADMISSION: 12/29/2018 15:49 (CDT) PHONE: AGE: 88 N# [id number] GENDER: Female ENCOUNTER PHYSICIAN: Dr. Valeriano Flannery M.D. 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 EATING: EATING - STEP 1: Does the patient require the assistance of a person or device, or need extra time when eating? Yes. EATING - STEP 2: Does the patient require the assistance of a helper? Yes. EATING - STEP 3: Does the patient perform half or more of the eating tasks? Yes. EATING - STEP 4: Does the patient need only supervision, cuing, coaxing OR help to apply an orthosis OR help to cut fo od, open containers, pour liquids, or butter bread? Yes. EATING - SCORE: 5-SUP GROOMING: Comb/brush hair Oral care Wash, rinse, and dry face Wash, rinse, and dry hands GROOMING - STEP 1: Does the patient require the assistance of a person or device, or need extra time when grooming? Yes. GROOMING - STEP 2: Does the patient require the assistance of a helper? No. The patient only requires an assistive devic e, OR takes more than reasonable time to groom, OR there is a concern for safety as the patient groom s GROOMING - SCORE: 6-JUAN FRANCISCO BATHING: Activity did not occur on this shift BATHING - SCORE: 0-UNK DRESSING - UPPER BODY: Activity did not occur on this shift ARTICLES SCORE Total number of steps: 0 DRESSING - UPPER BODY - SCORE: 0-UNK DRESSING - LOWER BODY: Activity did not occur on this shift ARTICLES SCORE Total number of steps: 0 DRESSING - LOWER BODY - SCORE: 0-UNK TOILETING: TOILETING - STEP 1: Does the patient require the assistance of a person or device, or need extra time with toileting? Yes . TOILETING - STEP 2: Does the patient require the assistance of a helper? Yes. TOILETING - STEP 3: How much assistance does the patient require from the helper? Hands-on assistance from the helper TOILETING - STEP 4: Of the 3 tasks: 1) Adjusting clothing prior to use, 2) Cleansing of perineal area, 3) Adjusting clot sabine after use; How many tasks does the patient perform WITHOUT assistance of the helper? Two tasks TOILETING - SCORE: 3-MOD BLADDER MANAGEMENT: BLADDER MANAGEMENT - STEP 1: Does the patient control the bladder completely and intentionally without equipment or devices or med ications, and is always continent? No. BLADDER MANAGEMENT - STEP 2: Does the patient require the assistance of a helper? No, patient requires and independently uses an a ssistive device, such as a urinal, bedpan, bedside commode, catheter, absorbent pad, or collecting de vice BLADDER MANAGEMENT - SCORE: 6-JUAN FRANCISCO BOWEL MANAGEMENT: Activity did not occur on this shift BOWEL MANAGEMENT - SCORE: 7-IND TRANSFERS: BED, CHAIR, WHEELCHAIR: TRANSFERS: BED, CHAIR, WHEELCHAIR - STEP 1: Does the patient require assistance of a person or device, or need extra time with bed, chair, or whe elchair transfers? Yes. TRANSFERS: BED, CHAIR, WHEELCHAIR - STEP 2: Does the patient require the assistance of a helper? Yes. TRANSFERS: BED, CHAIR, WHEELCHAIR - STEP 3: How much assistance does the patient require from the helper? Steadying/guiding assistance TRANSFERS: BED, CHAIR, WHEELCHAIR - SCORE: 4-MIN TRANSFERS: TOILET: TRANSFERS: TOILET - STEP 1: Does the patient require the assistance of a person or device, or need extra time with toilet transfe rs? Yes. TRANSFERS: TOILET - STEP 2: Does the patient require the assistance of a helper? Yes. TRANSFERS: TOILET - STEP 3: How much assistance does the patient require from the helper? Patient performs half or more of the tr ansferring tasks TRANSFERS: TOILET - STEP 4: Does the patient need only incidental help such as contact guard or steadying during toilet transfer? Yes. TRANSFERS: TOILET - SCORE: 4-MIN TRANSFERS: SHOWER: Activity did not occur on this shift TRANSFERS: SHOWER - SCORE: 0-UNK TRANSFERS: TUB: Activity did not occur on this shift TRANSFERS: TUB - SCORE: 0-UNK LOCOMOTION: WALK: Activity did not occur on this shift LOCOMOTION: WALK - SCORE: 0-UNK LOCOMOTION: WHEELCHAIR: Activity did not occur on this shift LOCOMOTION: WHEELCHAIR - SCORE: 0-UNK COMPREHENSION: COMPREHENSION: TYPE: Both COMPREHENSION - STEP 1: Does the patient require help from a person or device, or need extra time to understand complex and a bstract ideas (such as current events, finances, discharge planning, medical issues, relationships, e tc)? No. COMPREHENSION - STEP 2: Does the patient need extra time, require an assistive device (such as glasses for visual comprehensi on or a hearing aid for auditory comprehension) or does s/he have mild difficulty understanding compl ex and abstract information? Yes. COMPREHENSION - SCORE: 6-JUAN FRANCISCO EXPRESSION EXPRESSION: TYPE: Both EXPRESSION - STEP 1: Does the patient require help from a person or device, or need extra time expressing complex and abst ract ideas (such as current events, finances, discharge planning, medical issues, relationships, etc) ? No. EXPRESSION - STEP 2: Does the patient need extra time, require an assistive device (such as augmentive communication syste m or a communication board), OR does s/he have mild difficulty expressing complex and abstract ideas (including mild dysarthria or mild word-find problems)? Yes. EXPRESSION - SCORE: 6-JUAN FRANCISCO SOCIAL INTERACTION: SOCIAL INTERACTION - STEP 1: Does the patient require a helper to interact with others in social and therapeutic situations? No. SOCIAL INTERACTION - STEP 2: Does the patient need extra time in social situations, OR does s/he interact with staff, other patien ts, and family members ONLY in structured environments, OR does s/he require medication for social in teraction? Yes, patient needs extra time SOCIAL INTERACTION - SCORE: 6-JUAN FRANCISCO PROBLEM SOLVING: PROBLEM SOLVING - STEP 1: Does the patient need help from a person or device, or need extra time to solve complex problems such as managing a checking account or confronting interpersonal problems? No. PROBLEM SOLVING - STEP 2: Does the patient require extra time to make decisions or solve problems, OR does s/he have slight dif ficulty reading, initiating, or self-correcting in unfamiliar situations? Yes, patient needs extra ti me. PROBLEM SOLVING - SCORE: 6-JUAN FRANCISCO MEMORY: MEMORY - STEP 1: Does the patient need help from a person or device, or need extra time to remember frequently encount ered people, daily routines, and executing requests? No. MEMORY - STEP 2: Does the patient have slight difficulty recognizing frequently encountered people, daily routines, or executing requests without the need for repetition or using self-initiated or environmental cues to remember? Yes. MEMORY - SCORE: 6-JUAN FRANCISCO SIGNATURE PANEL: The following modified sections: Eating - Score, Grooming - Score, Bathing - Score, Dressing - Upper Body - Score, Dressing - Lower Body - Score, Toileting - Score, Bladder Management - Score, Bowel Man agement - Score, Transfers: Bed, Chair, Wheelchair - Score, Transfers: Toilet - Score, Transfers: Mariangel wer - Score, Transfers: Tub - Score, Locomotion: Walk - Score, Locomotion: Wheelchair - Score, Compre hension - Score, Expression - Score, Social Interaction - Score, Problem Solving - Score, Memory - Sc ore were [electronically] signed by Abdon William on WedJan 05 2019 09:33:27 GMT-0500 (Central Daylight Time)
[2019-01-05] MEDS ORDERED: SYSTANE ULTRA EYE DROPS EACH EYE PRN (11:47)
--- NOTE | 2019-01-05 18:55 | R.PN ---
ENCOUNTER DATE AND TIME: 01/05/2019 18:50 (CDT) NAME EDGARD DÍAZ DATE OF : 1930 DATE OF ADMISSION: 12/29/2018 15:49 (CDT) Liver CirrhosisCHIEF COMPLAINT: Debility and liver cirrhosis SUBJECTIVE: Pt denied any depression. Pt denied any Shortness of Breath. Doppler of lower extremities reveal no DVTs or significant PAD. Ambulated 350' with modified independence using a rolling walker. Up and down 5 steps with standby as sistance. Propelled wheelchair 250' with standby assistance. VITAL SIGNS Temperature: 98.7 F SBP/DBP: 91/50 Pulse: 82 Resp:16 MEDICATION ALLERGIES: Morphine Sulfate ENVIRONMENTAL ALLERGIES: None Known - Substance Allergies None Known - Other Allergies ADHESIVE TAPE NURSING: - Shower allowing shower ACTIVITIES OOB only with supervision THERAPIES: - Occupational Therapy Evaluate and Treat. - Physical Therapy Evaluate and Treat. PHYSICAL EXAM - Gen Alert and awake Lying in bed No apparent distress Oriented to: person, time, and place - Skin No breakdown No abnormalities - Eyes No abnormalities - ENMT No abnormalities - Neck No abnormalities - CVS RRR - Chest No abnormalities - Abd Distended - GI Positive fluid wave - No abnormalities - Ext Moderate edema in both lower extremities. - MSK 4+/5 weakness in both lower extremities. - Neuro No focal deficits - Psych No abnormalities ASSESSMENT: Pt. is a 88 yo Right-handed white female.On 12/19/2018 she was admitted to [facility] with diagnosis Liver Cirrhosis.Her impairment category is Medically Complex Conditions 17 - T [facility] Care (17.6).Pre-morbidly, Pt. was independent/mod-I in Self-Care, Sphincter Control, Transfer s Control, Locomotion, Communication, and Social Cognition; and she had good Sphincter Control.Curren tly, she has deficits of Self-Care, Transfers Control, Locomotion, Endurance, Balance, and Safety Susan reness.Pt. is now referred to [facility] for acute in-patient rehabilitation i n order to maximize patient's functional independence in activities of daily living, strength, ROM, a nd mobility.- Rehab Goal Patient has realistic goal of being discharged at assistance level 6-Keily to reside at Home with Fam fanny/Relatives. MDM/PLAN: - Physical Therapy Gait dysfunction - to improve, our physical therapists will perform initial evaluation of pt's statu s upon admission and devise an individualized program for Gait Training, and Wheel Chair mobility Inability to transfer - to improve, our physical therapists will perform initial evaluation of pt's status upon admission and devise an individualized program for Bed mobility Need for home safety evaluation - to improve, our physical therapists will perform initial evaluatio n of pt's status upon admission and devise an individualized program for Home Evaluation Need in caregiver upon discharge - to improve, our physical therapists will perform initial evaluati on of pt's status upon admission and devise an individualized program for Caregiver Training New precaution - to improve, our physical therapists will perform initial evaluation of pt's status upon admission and devise an individualized program for Patient precaution education Poor balance - to improve, our physical therapists will perform initial evaluation of pt's status up on admission and devise an individualized program for Balance Training Poor endurance - to improve, our physical therapists will perform initial evaluation of pt's status upon admission and devise an individualized program for Endurance Training Weakness - to improve, our physical therapists will perform initial evaluation of pt's status upon a dmission and devise an individualized program for Aquatic Therapy, Neuromuscular Reeducation, and Str engthening Achieving independence - to improve, our physical therapists will perform initial evaluation of pt's status upon admission and devise an individualized program for Community Reintegration Activities - Occupational Therapy ADL deficits - to improve, our occupation therapists will perform initial evaluation of pt's status upon admission and devise an individualized program for Bathing, Bed mobility, Community Reintegratio n, Cooking, Dressing, Eating, Fine Motor Skills, Grooming, Homemaking, Kitchen Mobility, Laundry, Pat ient Education, Safety Awareness, Splinting - Positioning, Transfers(Toilet, Tub, Shower), and Wheel Chair Management Need for director medicare sales - to improve, our occupation therapists will perform initial evaluation of pt's status upon admission and devise an individualized program for Caregiver Training Weakness - to improve, our occupation therapists will perform initial evaluation of pt's status upon admission and devise an individualized program for Aquatic Therapy, Balance, Endurance, UE ROM, and UE strengthening - Diet Type Continue [facility] soft ground - Diet - Liquid Texture Continue Regular - Tube Feed Continue N/A - Diet - Solid Texture Continue Regular - Shower allowing shower FUNCTIONAL STATUS: UPDATED AT WEEKLY TEAM CONFERENCE - Bladder Same accident frequency: 7-Ind - No accidents in the past 7 days - Bowel Same accident frequency: 7-Ind - No accidents in the past 7 days - Walking Same score based on distance walked: 3(>=150ft) - Wheelchair Same score based on distance traveled: 0(N/A) FUNCTIONAL STATUS: - Self-Care A. Eating sup B. Grooming sup C. Bathing [place] D. Dressing - [place] E. Dressing - Lower modA F. Toileting modA - Sphincter Control G: Bladder control Ind H: Bowel control Ind - Transfers Control I. Bed/Chair/Wheelchair [place] J. Toilet [place] K. Tub/Shower ADNO - Locomotion L. Walk/Wheelchair (C) [place] L. Walk/Wheelchair (W) [place] M. Stairs ADNO - Communication N. Comprehension (B) Ind O. Expression (B) Ind - Social Cognition P. Social Interaction Ind Q. Problem Solving Ind R. Memory Ind - Endurance Fair - Balance Fair - Safety Awareness Fair CURRENT FUNC. DEFICITS: Self-Care, Transfers Control, Locomotion, Endurance, Balance, and Safety Awareness SIGNATURE PANEL: (CDT)
[2019-01-05] MEDS: DOCUSATE NA 100 MG CAP PO SCH (20:08)
[2019-01-05] MEDS: PANTOPRAZOLE 40MG TABLET PO SCH (20:08)
--- NOTE | 2019-01-06 02:17 | FAST ---
SHIFT START DATE/TIME: 01/05/2019 19:00 (CDT) SHIFT END DATE/TIME: 01/06/2019 07:00 (CDT) NAME EDGARD DÍAZ DATE OF : 1930 DATE OF ADMISSION: 12/29/2018 15:49 (CDT) PHONE: AGE: 88 N# [id number] GENDER: Female ENCOUNTER PHYSICIAN: Dr. Valeriano Flannery M.D. 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 EATING: Activity did not occur on this shift EATING - SCORE: 0-UNK GROOMING: Activity did not occur on this shift GROOMING - SCORE: 0-UNK BATHING: Activity did not occur on this shift BATHING - SCORE: 0-UNK DRESSING - UPPER BODY: Activity did not occur on this shift ARTICLES SCORE Total number of steps: 0 DRESSING - UPPER BODY - SCORE: 0-UNK DRESSING - LOWER BODY: Activity did not occur on this shift ARTICLES SCORE Total number of steps: 0 DRESSING - LOWER BODY - SCORE: 0-UNK TOILETING: TOILETING - STEP 1: Does the patient require the assistance of a person or device, or need extra time with toileting? Yes . TOILETING - STEP 2: Does the patient require the assistance of a helper? Yes. TOILETING - STEP 3: How much assistance does the patient require from the helper? Hands-on assistance from the helper TOILETING - STEP 4: Of the 3 tasks: 1) Adjusting clothing prior to use, 2) Cleansing of perineal area, 3) Adjusting clot sabine after use; How many tasks does the patient perform WITHOUT assistance of the helper? Three tasks with steadying assistance from the helper TOILETING - SCORE: 4-MIN BLADDER MANAGEMENT: BLADDER MANAGEMENT - STEP 1: Does the patient control the bladder completely and intentionally without equipment or devices or med ications, and is always continent? Yes. BLADDER MANAGEMENT - SCORE: 7-IND BOWEL MANAGEMENT: BOWEL MANAGEMENT - STEP 1: Does the patient control bowels completely and intentionally without equipment devices or medications AND is always continent? No. BOWEL MANAGEMENT - STEP 2: Does the patient require the assistance of a helper? Yes. BOWEL MANAGEMENT - STEP 3: How much assistance does the patient require from the helper? Patient requires moderate assistance - performs 50% to 74% of bowel management tasks BOWEL MANAGEMENT - SCORE: 3-MOD TRANSFERS: BED, CHAIR, WHEELCHAIR: TRANSFERS: BED, CHAIR, WHEELCHAIR - STEP 1: Does the patient require assistance of a person or device, or need extra time with bed, chair, or whe elchair transfers? Yes. TRANSFERS: BED, CHAIR, WHEELCHAIR - STEP 2: Does the patient require the assistance of a helper? Yes. TRANSFERS: BED, CHAIR, WHEELCHAIR - STEP 3: How much assistance does the patient require from the helper? Steadying/guiding assistance TRANSFERS: BED, CHAIR, WHEELCHAIR - SCORE: 4-MIN TRANSFERS: TOILET: TRANSFERS: TOILET - STEP 1: Does the patient require the assistance of a person or device, or need extra time with toilet transfe rs? Yes. TRANSFERS: TOILET - STEP 2: Does the patient require the assistance of a helper? Yes. TRANSFERS: TOILET - STEP 3: How much assistance does the patient require from the helper? Patient performs half or more of the tr ansferring tasks TRANSFERS: TOILET - STEP 4: Does the patient need only incidental help such as contact guard or steadying during toilet transfer? Yes. TRANSFERS: TOILET - SCORE: 4-MIN TRANSFERS: SHOWER: Activity did not occur on this shift TRANSFERS: SHOWER - SCORE: 0-UNK TRANSFERS: TUB: Activity did not occur on this shift TRANSFERS: TUB - SCORE: 0-UNK LOCOMOTION: WALK: Activity did not occur on this shift LOCOMOTION: WALK - SCORE: 0-UNK LOCOMOTION: WHEELCHAIR: Activity did not occur on this shift LOCOMOTION: WHEELCHAIR - SCORE: 0-UNK COMPREHENSION: COMPREHENSION: TYPE: Both COMPREHENSION - STEP 1: Does the patient require help from a person or device, or need extra time to understand complex and a bstract ideas (such as current events, finances, discharge planning, medical issues, relationships, e tc)? No. COMPREHENSION - STEP 2: Does the patient need extra time, require an assistive device (such as glasses for visual comprehensi on or a hearing aid for auditory comprehension) or does s/he have mild difficulty understanding compl ex and abstract information? No. COMPREHENSION - SCORE: 7-IND EXPRESSION EXPRESSION: TYPE: Both EXPRESSION - STEP 1: Does the patient require help from a person or device, or need extra time expressing complex and abst ract ideas (such as current events, finances, discharge planning, medical issues, relationships, etc) ? No. EXPRESSION - STEP 2: Does the patient need extra time, require an assistive device (such as augmentive communication syste m or a communication board), OR does s/he have mild difficulty expressing complex and abstract ideas (including mild dysarthria or mild word-find problems)? No. EXPRESSION - SCORE: 7-IND SOCIAL INTERACTION: SOCIAL INTERACTION - STEP 1: Does the patient require a helper to interact with others in social and therapeutic situations? No. SOCIAL INTERACTION - STEP 2: Does the patient need extra time in social situations, OR does s/he interact with staff, other patien ts, and family members ONLY in structured environments, OR does s/he require medication for social in teraction? No. SOCIAL INTERACTION - SCORE: 7-IND PROBLEM SOLVING: PROBLEM SOLVING - STEP 1: Does the patient need help from a person or device, or need extra time to solve complex problems such as managing a checking account or confronting interpersonal problems? No. PROBLEM SOLVING - STEP 2: Does the patient require extra time to make decisions or solve problems, OR does s/he have slight dif ficulty reading, initiating, or self-correcting in unfamiliar situations? No. PROBLEM SOLVING - SCORE: 7-IND MEMORY: MEMORY - STEP 1: Does the patient need help from a person or device, or need extra time to remember frequently encount ered people, daily routines, and executing requests? No. MEMORY - STEP 2: Does the patient have slight difficulty recognizing frequently encountered people, daily routines, or executing requests without the need for repetition or using self-initiated or environmental cues to remember? No. MEMORY - SCORE: 7-IND SIGNATURE PANEL: The following modified sections: Eating - Score, Grooming - Score, Bathing - Score, Dressing - Upper Body - Score, Dressing - Lower Body - Score, Toileting - Score, Bladder Management - Score, Bowel Man agement - Score, Transfers: Bed, Chair, Wheelchair - Score, Transfers: Toilet - Score, Transfers: Mariangel wer - Score, Transfers: Tub - Score, Locomotion: Walk - Score, Locomotion: Wheelchair - Score, Compre hension - Score, Expression - Score, Social Interaction - Score, Problem Solving - Score, Memory - Sc ore were [electronically] signed by Nellie Griffin CNA on WedJan 06 2019 02:16:38 T-0500 (Sacul Da ylight Time)
[2019-01-06] MEDS: NYSTATIN PWDR 100000 UNIT/GM TOP SCH ×2 (08:00→20:00)
[2019-01-06] MEDS: MUPIROCIN 2% OINT 22GM TUBE TOP SCH ×2 (08:00→21:04)
[2019-01-06] MEDS: JUVEN PACKET PO SCH ×2 (08:00→21:03)
[2019-01-06] MEDS: ENSURE ENLIVE 237 ML CAN PO SCH ×2 (08:00→21:03)
[2019-01-06] MEDS: SODIUM CHLORIDE 0.9% 10ML INJ IV SCH ×2 (08:00→20:00)
[2019-01-06] MEDS: LACTULOSE 20 GM/30 ML UCUP PO SCH ×2 (08:13→21:04)
[2019-01-06] MEDS: FE SULF/FA/VIT B COMP & C TAB PO SCH (08:14)
[2019-01-06] MEDS: FERROUS SULFATE 325 MG TAB PO SCH (08:14)
[2019-01-06] MEDS: GABAPENTIN 100 MG CAP PO SCH ×3 (08:14→21:04)
[2019-01-06] MEDS: MIDODRINE HCL 5 MG TABLET PO SCH ×3 (08:14→21:04)
[2019-01-06] MEDS: MAGNESIUM OXIDE 400 MG TAB PO SCH ×2 (08:14→21:03)
[2019-01-06] MEDS: PROMOD 30 ML DOSE PO SCH ×2 (08:15→21:06)
--- NOTE | 2019-01-06 09:37 | P.RH.PN ---
Estimated Length of Stay: 15 Expected Discharge Date: 01/12/19 Discharge Disposition Plan: Home Family Support: Yes Shelter Goal: Mobility, Transfers, Self Care Vital Signs: Last Vital Signs Temp 97.6 F 01/06/19 06:45 Pulse 101 H 01/06/19 06:45 Resp 16 01/06/19 06:45 BP 97/56 L 01/06/19 06:45 Pulse Ox 98 01/06/19 06:45 Laboratory: Laboratory Last Values WBC 4.1 K/uL (4.3-10.9) L 01/05/19 05:30 RBC 2.70 M/uL (3.86-4.86) L 01/05/19 05:30 Hgb 8.5 g/dL (12.0-15.0) L 01/05/19 05:30 Hct 25.3 % (36.0-45.0) L 01/05/19 05:30 MCV 93.6 fL (80-100) 01/05/19 05:30 MCH 31.6 pg (27.0-35.0) 01/05/19 05:30 MCHC 33.8 g/dL (32.0-36.0) 01/05/19 05:30 RDW 15.3 % (12.1-15.2) H 01/05/19 05:30 Plt Count 108 K/uL (152-406) L 01/05/19 05:30 MPV 8.6 fL (7.6-11.3) 01/05/19 05:30 Plt Distribution Width Cancelled 01/05/19 05:30 Absolute Nucleated RBC Cancelled 01/05/19 05:30 Neutrophils % 64.8 % (41.7-73.7) 01/05/19 05:30 Lymphocytes % 17.8 % (15.3-44.8) 01/05/19 05:30 Monocytes % 12.4 % (3.3-12.3) H 01/05/19 05:30 Eosinophils % 4.3 % (0-4.4) 01/05/19 05:30 Basophils % 0.7 % (0-1.3) 01/05/19 05:30 Nucleated RBC % Cancelled 01/05/19 05:30 Absolute Neutrophils 2.7 K/uL (1.8-8.0) 01/05/19 05:30 Segmented Neutrophils 65 % (40-80) 12/30/18 06:17 Absolute Lymphocytes 0.7 K/uL (0.7-4.9) 01/05/19 05:30 Lymphocytes 18 % (15-42) 12/30/18 06:17 Monocytes 8 % (0-10) 12/30/18 06:17 Absolute Monocytes 0.5 K/uL (0.1-1.3) 01/05/19 05:30 Eosinophils 2 % (0-3) 12/30/18 06:17 Absolute Eosinophils 0.2 K/uL (0-0.5) 01/05/19 05:30 Basophils 1 % (0-1) 12/30/18 06:17 Absolute Basophils 0.0 K/uL (0-0.5) 01/05/19 05:30 Diff Path Review Cancelled 01/05/19 05:30 Atypical Lymphocytes 6 12/30/18 06:17 Morphology Comment Not seen (NOT SEEN) 12/30/18 06:17 PT 13.8 SECONDS (9.5-12.5) H 01/03/19 04:45 INR 1.18 01/03/19 04:45 Sodium 140 mmol/L (136-145) 01/05/19 05:30 Potassium 3.4 mmol/L (3.5-5.1) L 01/05/19 05:30 Chloride 105 mmol/L (98-107) 01/05/19 05:30 Carbon Dioxide 31 mmol/L (21-32) 01/05/19 05:30 BUN 53 mg/dL (7-18) H 01/05/19 05:30 Creatinine 1.18 mg/dL (0.55-1.3) 01/05/19 05:30 Estimated GFR 43 mL/min (=/>90) L 01/05/19 05:30 Glucose 117 mg/dL (74-106) H 01/05/19 05:30 Calcium 8.1 mg/dL (8.5-10.1) L 01/05/19 05:30 Phosphorus 2.9 mg/dL (2.5-4.9) 01/03/19 04:45 Magnesium 2.6 mg/dL (1.8-2.4) H 01/03/19 04:45 Iron 60.0 ug/dL (50-170) 01/01/19 22:25 TIBC 171 ug/dL (250-460) L 01/01/19 22:25 Transferrin 122 mg/dL (200-360) L 01/01/19 22:25 Transferrin % Sat 35.1 % (20.0-50.0) 01/01/19 22:25 Ferritin 131.4 ng/mL (8-388) 01/01/19 22:25 Total Bilirubin 0.9 mg/dL (0.2-1.0) 01/05/19 05:30 AST 38 U/L (15-37) H 01/05/19 05:30 ALT 19 U/L (12-78) 01/05/19 05:30 Alkaline Phosphatase 95 U/L (45-117) 01/05/19 05:30 Ammonia 32 umol/L (19-54) 01/01/19 19:30 Serum Total Protein 5.8 g/dL (6.4-8.2) L 01/05/19 05:30 Albumin 2.8 g/dL (3.4-5.0) L 01/05/19 05:30 Globulin 3.0 g/dL (2.3-3.5) 01/05/19 05:30 Albumin/Globulin Ratio 0.9 (1.1-1.8) L 01/05/19 05:30 Prealbumin 5.3 mg/dL (20-40) L 01/05/19 05:30 Urine Color Yellow 12/31/18 22:25 Urine Appearance Clear 12/31/18 22:25 Urine pH 6.0 (5.0-7.0) 12/31/18 22:25 Ur Specific [place] 1.010 (1.005-1.030) 12/31/18 22:25 Urine Ketones Negative (NEG) 12/31/18 22:25 Urine Blood Negative (NEG) 12/31/18 22:25 Urine Nitrite Negative (NEG) 12/31/18 22:25 Urine Bilirubin Negative (NEG) 12/31/18 22:25 Urine Urobilinogen 0.2 mg/dL (0.2-1.0) 12/31/18 22:25 Ur Leukocyte Esterase Trace (NEG) H 12/31/18 22:25 Urine RBC None seen /HPF (NONE SEEN) 12/31/18 22:25 Urine WBC <5 /HPF (<5) 12/31/18 22:25 Ur Squamous Epith Cells <5 /HPF (NONE SEEN) 12/31/18 22:25 Calcium Oxalate Crystal Moderate (NONE SEEN) H 12/31/18 22:25 Urine Bacteria <20 /HPF (<20) 12/31/18 22:25 Urine Culture Reflexed Not needed 12/31/18 22:25 Urine Glucose Negative (NEG) 12/31/18 22:25 Urine Total Protein Negative (NEG) 12/31/18 22:25 Fluid Source Peritoneal 01/04/19 10:10 Fluid Color Yellow (COLORLESS) H 01/04/19 10:10 Fluid Appearance Clear (CLEAR) 01/04/19 10:10 Fld Supernatant Color FIRE CAPTAIN MARINE 01/04/19 10:10 Fluid WBC 241 /mm^3 01/04/19 10:10 Fluid RBC 116 /mm^3 01/04/19 10:10 Fluid Neutrophils 17 % 01/04/19 10:10 Fluid Lymphocytes 57 % 01/04/19 10:10 Fluid Mononuclear Cell 26 % 01/04/19 10:10 Weight: 127 lb 7 oz Wound Present: Yes Closed Surgical Incision Present: No Negative Pressure Wound Therapy Present: No Physician Update: Labs have been reviewed. Hgb 8.5 and prealbumin 5.3. She is ambulating 200' modified independence and bed mobility is standby assistance. She is at standby assistance with ADLs using adaptive equipment. Pain Issues: Tramadol 50mg Q6H PRN Functional Improvement: Patient has greatly improved in all areas of therapy, however has not traveled 250 ft. w/ gait tx. at this point. Patient is currently Mod I w/ transfers and gait tx., however does fatigue when fluid increases in body. Functional Improvement Occupational Therapy: Pt can benifit for further therapy to address pt's overall function. Cont with the POC and the goals by the supervising OTR. Cont to increase pt's overall weakness and endurance for adl tasks and for safety while educating on energy conservation techniques for LB dressing and cont to increase pt's static standing balance for adl tasks. Summary: Patient's care plan and demand manager goals have been reviewed and revised as necessary. Please see the Rehabilitation Signature page for all necessary signatures.
--- NOTE | 2019-01-06 09:39 | FAST ---
SHIFT START DATE/TIME: 01/06/2019 07:00 (CDT) SHIFT END DATE/TIME: 01/06/2019 19:00 (CDT) NAME EDGARD DÍAZ DATE OF : 1930 DATE OF ADMISSION: 12/29/2018 15:49 (CDT) PHONE: AGE: 88 N# [id number] GENDER: Female ENCOUNTER PHYSICIAN: Dr. Valeriano Flannery M.D. 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 EATING: EATING - STEP 1: Does the patient require the assistance of a person or device, or need extra time when eating? No. EATING - SCORE: 7-IND GROOMING: Wash, rinse, and dry face GROOMING - STEP 1: Does the patient require the assistance of a person or device, or need extra time when grooming? Yes. GROOMING - STEP 2: Does the patient require the assistance of a helper? No. The patient only requires an assistive devic e, OR takes more than reasonable time to groom, OR there is a concern for safety as the patient groom s GROOMING - SCORE: 6-JUAN FRANCISCO BATHING: Activity did not occur on this shift BATHING - SCORE: 0-UNK DRESSING - UPPER BODY: T-shirt/pullover shirt (four steps) ARTICLES SCORE Total number of steps: 4 DRESSING - UPPER BODY - STEP 1: Does the patient require help from a person or device, or need extra time when dressing above the [address]? Yes. DRESSING - UPPER BODY - STEP 2: Does the patient require the assistance of a helper? No. Patient only requires an assistive device, s uch as a button hook, velcro, or red cap. OR s/he takes more than reasonable time as s/he dresses the upper body. OR there is a concern for safety when s/he dresses the upper body DRESSING - UPPER BODY - SCORE: 6-JUAN FRANCISCO DRESSING - LOWER BODY: Underwear (three steps) ARTICLES SCORE Total number of steps: 3 DRESSING - LOWER BODY - STEP 1: Does the patient require help from a person or device, or need extra time when dressing below the [address] st? Yes. DRESSING - LOWER BODY - STEP 2: Does the patient require the assistance of a helper? Yes. DRESSING - LOWER BODY - STEP 3: Does the helper touch the patient while dressing? Yes. DRESSING - LOWER BODY - STEP 4: How many of the total steps does the patient complete on his/her own? 3 DRESSING - LOWER BODY - SCORE: 4-MIN TOILETING: TOILETING - STEP 1: Does the patient require the assistance of a person or device, or need extra time with toileting? Yes . TOILETING - STEP 2: Does the patient require the assistance of a helper? Yes. TOILETING - STEP 3: How much assistance does the patient require from the helper? Only supervision TOILETING - SCORE: 5-SUP BLADDER MANAGEMENT: BLADDER MANAGEMENT - STEP 1: Does the patient control the bladder completely and intentionally without equipment or devices or med ications, and is always continent? No. BLADDER MANAGEMENT - STEP 2: Does the patient require the assistance of a helper? Yes. BLADDER MANAGEMENT - STEP 3: How much assistance does the patient require from the helper? Only set-up of equipment - such as plac ing it within reach of the patient or emptying a device - to maintain either satisfactory voiding pat tern or managing an external device, such as an absorbent pad, ileal device, or catheter BLADDER MANAGEMENT - SCORE: 5-SUP BLADDER MANAGEMENT - FREQUENCY OF ACCIDENTS: BLADDER MANAGEMENT(FA) - STEP 1: How many accidents has the patient had during the current shift? 1 BOWEL MANAGEMENT: BOWEL MANAGEMENT - STEP 1: Does the patient control bowels completely and intentionally without equipment devices or medications AND is always continent? No. BOWEL MANAGEMENT - STEP 2: Does the patient require the assistance of a helper? Yes. BOWEL MANAGEMENT - STEP 3: How much assistance does the patient require from the helper? Patient requires supervision, stand by, cueing, coaxing, or setup of equipment - placing within reach of patient and emptying device / bedpa nd or BSC bucket - to maintain either satisfactory bowel pattern or managing an external device such as an absorbent pad, colostomy bag / ileostomy bag BOWEL MANAGEMENT - SCORE: 5-SUP BOWEL MANAGEMENT - FREQUENCY OF ACCIDENTS: BOWEL MANAGEMENT(FA) - STEP 1: How many accidents has the patient had during the current shift? 1 TRANSFERS: BED, CHAIR, WHEELCHAIR: TRANSFERS: BED, CHAIR, WHEELCHAIR - STEP 1: Does the patient require assistance of a person or device, or need extra time with bed, chair, or whe elchair transfers? Yes. TRANSFERS: BED, CHAIR, WHEELCHAIR - STEP 2: Does the patient require the assistance of a helper? Yes. TRANSFERS: BED, CHAIR, WHEELCHAIR - STEP 3: How much assistance does the patient require from the helper? Steadying/guiding assistance TRANSFERS: BED, CHAIR, WHEELCHAIR - SCORE: 4-MIN TRANSFERS: TOILET: TRANSFERS: TOILET - STEP 1: Does the patient require the assistance of a person or device, or need extra time with toilet transfe rs? Yes. TRANSFERS: TOILET - STEP 2: Does the patient require the assistance of a helper? Yes. TRANSFERS: TOILET - STEP 3: How much assistance does the patient require from the helper? Patient performs half or more of the tr ansferring tasks TRANSFERS: TOILET - STEP 4: Does the patient need only incidental help such as contact guard or steadying during toilet transfer? Yes. TRANSFERS: TOILET - SCORE: 4-MIN TRANSFERS: SHOWER: Activity did not occur on this shift TRANSFERS: SHOWER - SCORE: 0-UNK TRANSFERS: TUB: Activity did not occur on this shift TRANSFERS: TUB - SCORE: 0-UNK LOCOMOTION: WALK: Activity did not occur on this shift LOCOMOTION: WALK - SCORE: 0-UNK LOCOMOTION: WHEELCHAIR: Activity did not occur on this shift LOCOMOTION: WHEELCHAIR - SCORE: 0-UNK COMPREHENSION: COMPREHENSION - SCORE: 0-UNK EXPRESSION EXPRESSION - SCORE: 0-UNK SOCIAL INTERACTION: SOCIAL INTERACTION - SCORE: 0-UNK PROBLEM SOLVING: PROBLEM SOLVING - SCORE: 0-UNK MEMORY: MEMORY - SCORE: 0-UNK SIGNATURE PANEL: The following modified sections: Eating - Score, Grooming - Score, Bathing - Score, Dressing - Upper Body - Score, Dressing - Lower Body - Score, Toileting - Score, Bladder Management - Score, Bowel Man agement - Score, Transfers: Bed, Chair, Wheelchair - Score, Transfers: Toilet - Score, Transfers: Mariangel wer - Score, Transfers: Tub - Score, Locomotion: Walk - Score, Locomotion: Wheelchair - Score, Compre hension - Score, Expression - Score, Social Interaction - Score, Problem Solving - Score, Memory - Sc ore were [electronically] signed by Samia Thomas CNA on WedJan 06 2019 09:38:32 T-0500 ([place] Day[place])
--- NOTE | 2019-01-06 11:36 | FAST ---
ENCOUNTER DATE AND TIME: 01/06/2019 08:00 (CDT) NAME EDGARD DÍAZ DATE OF : 1930 DATE OF ADMISSION: 12/29/2018 15:49 (CDT) PHONE: AGE: 88 N# [id number] GENDER: Female ENCOUNTER PHYSICIAN: Dr. Valeriano Flannery M.D. 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 EATING: Activity did not occur on this shift EATING - SCORE: 0-UNK GROOMING: Activity did not occur on this shift GROOMING - SCORE: 0-UNK BATHING: Activity did not occur on this shift BATHING - SCORE: 0-UNK DRESSING - UPPER BODY: Activity did not occur on this shift Patient is not dressing in public clothing ARTICLES SCORE Total number of steps: 0 DRESSING - UPPER BODY - SCORE: 0-UNK DRESSING - LOWER BODY: Activity did not occur on this shift Patient is not dressing in public clothing ARTICLES SCORE Total number of steps: 0 DRESSING - LOWER BODY - SCORE: 0-UNK TOILETING: Activity did not occur on this shift TOILETING - SCORE: 0-UNK BLADDER MANAGEMENT: Activity did not occur on this shift BLADDER MANAGEMENT - SCORE: 7-IND BOWEL MANAGEMENT: Activity did not occur on this shift BOWEL MANAGEMENT - SCORE: 7-IND TRANSFERS: BED, CHAIR, WHEELCHAIR: TRANSFERS: BED, CHAIR, WHEELCHAIR - STEP 1: Does the patient require assistance of a person or device, or need extra time with bed, chair, or whe elchair transfers? Yes. TRANSFERS: BED, CHAIR, WHEELCHAIR - STEP 2: Does the patient require the assistance of a helper? No. Patient only requires an assistive device fo r bed, chair, wheelchair transfers such as a sliding board, grab bar, or brace, OR s/he takes more th an reasonable time, OR there is a safety concern when s/he performs the transfers TRANSFERS: BED, CHAIR, WHEELCHAIR - SCORE: 6-JUAN FRANCISCO TRANSFERS: TOILET: Activity did not occur on this shift TRANSFERS: TOILET - SCORE: 0-UNK TRANSFERS: SHOWER: Activity did not occur on this shift TRANSFERS: SHOWER - SCORE: 0-UNK TRANSFERS: TUB: Activity did not occur on this shift TRANSFERS: TUB - SCORE: 0-UNK LOCOMOTION: WALK: LOCOMOTION: WALK - STEP 1: Does the patient need help from a person or device, or need extra time to walk 150 feet? No. LOCOMOTION: WALK - STEP 2: Does the patient need an assistive device (such as an orthosis, prosthesis, crutches, or walker) to g o 150 feet, OR does s/he take more than reasonable time, OR is there a concern for safety? Yes, the p atient needs an assistive device LOCOMOTION: WALK - SCORE: 6-JUAN FRANCISCO LOCOMOTION: WHEELCHAIR: LOCOMOTION: WHEELCHAIR - STEP 1: Does the patient need help to go 150 feet in a wheelchair? Yes. LOCOMOTION: WHEELCHAIR - STEP 2: How much assistance does the patient need from the helper? Only supervision, cuing, or coaxing LOCOMOTION: WHEELCHAIR - SCORE: 5-SUP LOCOMOTION: STAIRS: LOCOMOTION: STAIRS - STEP 1: Does the patient need help to go up and down 12 to 14 stairs? Yes. LOCOMOTION: STAIRS - STEP 2: How much assistance does the patient need from the helper to go a minimum of 12 to 14 stairs? Only in cidental help such as contact guarding or steadying LOCOMOTION: STAIRS - SCORE: 4-MIN COMPREHENSION: COMPREHENSION - SCORE: 0-UNK EXPRESSION EXPRESSION - SCORE: 0-UNK SOCIAL INTERACTION: SOCIAL INTERACTION - SCORE: 0-UNK PROBLEM SOLVING: PROBLEM SOLVING - SCORE: 0-UNK MEMORY: MEMORY - SCORE: 0-UNK SIGNATURE PANEL: The following modified sections: Transfers: Bed, Chair, Wheelchair - Score, Transfers: Toilet - Score , Locomotion: Walk - Score, Locomotion: Wheelchair - Score, Locomotion: Stairs - Score were [lionel negron] signed by Joe Lemus PTA on WedJan 06 2019 11:35:47 GMT-0500 (Central Daylight Time)
--- NOTE | 2019-01-06 11:41 | FAST ---
ENCOUNTER DATE AND TIME: 01/05/2019 08:00 (CDT) NAME EDGARD DÍAZ DATE OF : 1930 DATE OF ADMISSION: 12/29/2018 15:49 (CDT) PHONE: AGE: 88 N# [id number] GENDER: Female ENCOUNTER PHYSICIAN: Dr. Valeriano Flannery M.D. 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 EATING: Activity did not occur on this shift EATING - SCORE: 0-UNK GROOMING: Activity did not occur on this shift GROOMING - SCORE: 0-UNK BATHING: Activity did not occur on this shift BATHING - SCORE: 0-UNK DRESSING - UPPER BODY: Activity did not occur on this shift Patient is not dressing in public clothing ARTICLES SCORE Total number of steps: 0 DRESSING - UPPER BODY - SCORE: 0-UNK DRESSING - LOWER BODY: Activity did not occur on this shift Patient is not dressing in public clothing ARTICLES SCORE Total number of steps: 0 DRESSING - LOWER BODY - SCORE: 0-UNK TOILETING: Activity did not occur on this shift TOILETING - SCORE: 0-UNK BLADDER MANAGEMENT: Activity did not occur on this shift BLADDER MANAGEMENT - SCORE: 7-IND BOWEL MANAGEMENT: Activity did not occur on this shift BOWEL MANAGEMENT - SCORE: 7-IND TRANSFERS: BED, CHAIR, WHEELCHAIR: TRANSFERS: BED, CHAIR, WHEELCHAIR - STEP 1: Does the patient require assistance of a person or device, or need extra time with bed, chair, or whe elchair transfers? Yes. TRANSFERS: BED, CHAIR, WHEELCHAIR - STEP 2: Does the patient require the assistance of a helper? No. Patient only requires an assistive device fo r bed, chair, wheelchair transfers such as a sliding board, grab bar, or brace, OR s/he takes more th an reasonable time, OR there is a safety concern when s/he performs the transfers TRANSFERS: BED, CHAIR, WHEELCHAIR - SCORE: 6-JUAN FRANCISCO TRANSFERS: TOILET: Activity did not occur on this shift TRANSFERS: TOILET - SCORE: 0-UNK TRANSFERS: SHOWER: Activity did not occur on this shift TRANSFERS: SHOWER - SCORE: 0-UNK TRANSFERS: TUB: Activity did not occur on this shift TRANSFERS: TUB - SCORE: 0-UNK LOCOMOTION: WALK: LOCOMOTION: WALK - STEP 1: Does the patient need help from a person or device, or need extra time to walk 150 feet? No. LOCOMOTION: WALK - STEP 2: Does the patient need an assistive device (such as an orthosis, prosthesis, crutches, or walker) to g o 150 feet, OR does s/he take more than reasonable time, OR is there a concern for safety? Yes, the p atient needs an assistive device LOCOMOTION: WALK - SCORE: 6-JUAN FRANCISCO LOCOMOTION: WHEELCHAIR: LOCOMOTION: WHEELCHAIR - STEP 1: Does the patient need help to go 150 feet in a wheelchair? Yes. LOCOMOTION: WHEELCHAIR - STEP 2: How much assistance does the patient need from the helper? Only supervision, cuing, or coaxing LOCOMOTION: WHEELCHAIR - SCORE: 5-SUP LOCOMOTION: STAIRS: LOCOMOTION: STAIRS - STEP 1: Does the patient need help to go up and down 12 to 14 stairs? Yes. LOCOMOTION: STAIRS - STEP 2: How much assistance does the patient need from the helper to go a minimum of 12 to 14 stairs? The pat ient goes less than 12 stairs, but at least 4 stairs LOCOMOTION: STAIRS - SCORE: 2-MAX COMPREHENSION: COMPREHENSION - SCORE: 0-UNK EXPRESSION EXPRESSION - SCORE: 0-UNK SOCIAL INTERACTION: SOCIAL INTERACTION - SCORE: 0-UNK PROBLEM SOLVING: PROBLEM SOLVING - SCORE: 0-UNK MEMORY: MEMORY - SCORE: 0-UNK SIGNATURE PANEL: The following modified sections: Transfers: Bed, Chair, Wheelchair - Score, Transfers: Toilet - Score , Locomotion: Walk - Score, Locomotion: Wheelchair - Score, Locomotion: Stairs - Score were [lionel negron] signed by Joe Lemus PTA on WedJan 06 2019 11:40:35 GMT-0500 (Central Daylight Time)
--- NOTE | 2019-01-06 12:24 | FAST ---
ENCOUNTER DATE AND TIME: 01/06/2019 08:00 (CDT) NAME EDGARD DÍAZ DATE OF : 1930 DATE OF ADMISSION: 12/29/2018 15:49 (CDT) PHONE: AGE: 88 N# [id number] GENDER: Female ENCOUNTER PHYSICIAN: Dr. Valeriano Flannery M.D. 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 EATING: Activity did not occur on this shift EATING - SCORE: 0-UNK GROOMING: Comb/brush hair Wash, rinse, and dry face Wash, rinse, and dry hands GROOMING - STEP 1: Does the patient require the assistance of a person or device, or need extra time when grooming? No. GROOMING - SCORE: 7-IND BATHING: Abdomen Buttocks Chest Left arm Left lower leg and foot Left upper leg Perineal area Right arm Right lower leg and foot Right upper leg BATHING - STEP 1: Does the patient require the assistance of a person or device, or need extra time when bathing? Yes. BATHING - STEP 2: Does the patient require the assistance of a helper? Yes. BATHING - STEP 3: How much assistance does the patient require from the helper? Only supervision, cuing, coaxing, instr uctions, encouragement BATHING - SCORE: 5-SUP DRESSING - UPPER BODY: Bra (three steps) T-shirt/pullover shirt (four steps) ARTICLES SCORE Total number of steps: 7 DRESSING - UPPER BODY - STEP 1: Does the patient require help from a person or device, or need extra time when dressing above the [address]? Yes. DRESSING - UPPER BODY - STEP 2: Does the patient require the assistance of a helper? No. Patient only requires an assistive device, s uch as a button hook, velcro, or channel layer. OR s/he takes more than reasonable time as s/he dresses the upper body. OR there is a concern for safety when s/he dresses the upper body DRESSING - UPPER BODY - SCORE: 6-JUAN FRANCISCO DRESSING - LOWER BODY: Elastic waist pants (three steps) Sock - Left foot (one step) Sock - Right foot (one step) Underwear (three steps) ARTICLES SCORE Total number of steps: 8 DRESSING - LOWER BODY - STEP 1: Does the patient require help from a person or device, or need extra time when dressing below the [address]? Yes. DRESSING - LOWER BODY - STEP 2: Does the patient require the assistance of a helper? Yes. DRESSING - LOWER BODY - STEP 3: Does the helper touch the patient while dressing? No. DRESSING - LOWER BODY - SCORE: 5-SUP TOILETING: TOILETING - STEP 1: Does the patient require the assistance of a person or device, or need extra time with toileting? Yes . TOILETING - STEP 2: Does the patient require the assistance of a helper? Yes. TOILETING - STEP 3: How much assistance does the patient require from the helper? Only supervision TOILETING - SCORE: 5-SUP BLADDER MANAGEMENT: Activity did not occur on this shift BLADDER MANAGEMENT - SCORE: 7-IND BOWEL MANAGEMENT: Activity did not occur on this shift BOWEL MANAGEMENT - SCORE: 7-IND TRANSFERS: BED, CHAIR, WHEELCHAIR: Activity did not occur on this shift TRANSFERS: BED, CHAIR, WHEELCHAIR - SCORE: 0-UNK TRANSFERS: TOILET: TRANSFERS: TOILET - STEP 1: Does the patient require the assistance of a person or device, or need extra time with toilet transfe rs? Yes. TRANSFERS: TOILET - STEP 2: Does the patient require the assistance of a helper? Yes. TRANSFERS: TOILET - STEP 3: How much assistance does the patient require from the helper? Only supervision, cuing, coaxing, OR he lp to set out transfer equipment or to lock brakes and/or lift foot rests TRANSFERS: TOILET - SCORE: 5-SUP TRANSFERS: SHOWER: Activity did not occur on this shift TRANSFERS: SHOWER - SCORE: 0-UNK TRANSFERS: TUB: TRANSFERS: TUB - STEP 1: Does the patient require the assistance of a person or device, or need extra time with tub transfers? Yes. TRANSFERS: TUB - STEP 2: Does the patient require the assistance of a helper? Yes. TRANSFERS: TUB - STEP 3: How much assistance does the patient require from the helper? Only supervision, cuing, coaxing, or he lp to set out transfer equipment or to lock brakes and/or lift foot rests TRANSFERS: TUB - SCORE: 5-SUP LOCOMOTION: WALK: Activity did not occur on this shift LOCOMOTION: WALK - SCORE: 0-UNK LOCOMOTION: WHEELCHAIR: Activity did not occur on this shift LOCOMOTION: WHEELCHAIR - SCORE: 0-UNK LOCOMOTION: STAIRS: Activity did not occur on this shift LOCOMOTION: STAIRS - SCORE: 0-UNK COMPREHENSION: COMPREHENSION - SCORE: 0-UNK EXPRESSION EXPRESSION - SCORE: 0-UNK SOCIAL INTERACTION: SOCIAL INTERACTION - SCORE: 0-UNK PROBLEM SOLVING: PROBLEM SOLVING - SCORE: 0-UNK MEMORY: MEMORY - SCORE: 0-UNK SIGNATURE PANEL: The following modified sections: Eating - Score, Grooming - Score, Bathing - Score, Dressing - Upper Body - Score, Dressing - Lower Body - Score, Toileting - Score, Transfers: Bed, Chair, Wheelchair - S core, Transfers: Toilet - Score, Transfers: Shower - Score, Transfers: Tub - Score, Comprehension - S core, Expression - Score, Social Interaction - Score, Problem Solving - Score, Memory - Score were [e lectronically] signed by BEATRIZ Powell on WedJan 06 2019 12:23:37 T-0500 ([facility])
[2019-01-06] MEDS: DOCUSATE NA 100 MG CAP PO SCH (21:00)
[2019-01-06] MEDS: PANTOPRAZOLE 40MG TABLET PO SCH (21:04)
--- NOTE | 2019-01-07 02:28 | FAST ---
SHIFT START DATE/TIME: 01/06/2019 19:00 (CDT) SHIFT END DATE/TIME: 01/07/2019 07:00 (CDT) NAME EDGARD DÍAZ DATE OF : 1930 DATE OF ADMISSION: 12/29/2018 15:49 (CDT) PHONE: AGE: 88 N# [id number] GENDER: Female ENCOUNTER PHYSICIAN: Dr. Valeriano Flannery M.D. 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 EATING: Activity did not occur on this shift EATING - SCORE: 0-UNK GROOMING: Oral care Wash, rinse, and dry face Wash, rinse, and dry hands GROOMING - STEP 1: Does the patient require the assistance of a person or device, or need extra time when grooming? Yes. GROOMING - STEP 2: Does the patient require the assistance of a helper? Yes. GROOMING - STEP 3: How much assistance does the patient require from the helper? Cuing, coaxing, instructions, or encour agement for completion of grooming GROOMING - SCORE: 5-SUP BATHING: Activity did not occur on this shift BATHING - SCORE: 0-UNK DRESSING - UPPER BODY: Patient is not dressing in public clothing ARTICLES SCORE Total number of steps: 0 DRESSING - UPPER BODY - SCORE: 0-UNK DRESSING - LOWER BODY: Patient is not dressing in public clothing ARTICLES SCORE Total number of steps: 0 DRESSING - LOWER BODY - SCORE: 0-UNK TOILETING: TOILETING - STEP 1: Does the patient require the assistance of a person or device, or need extra time with toileting? Yes . TOILETING - STEP 2: Does the patient require the assistance of a helper? Yes. TOILETING - STEP 3: How much assistance does the patient require from the helper? Hands-on assistance from the helper TOILETING - STEP 4: Of the 3 tasks: 1) Adjusting clothing prior to use, 2) Cleansing of perineal area, 3) Adjusting clot sabine after use; How many tasks does the patient perform WITHOUT assistance of the helper? Three tasks with steadying assistance from the helper TOILETING - SCORE: 4-MIN BLADDER MANAGEMENT: BLADDER MANAGEMENT - STEP 1: Does the patient control the bladder completely and intentionally without equipment or devices or med ications, and is always continent? No. BLADDER MANAGEMENT - STEP 2: Does the patient require the assistance of a helper? Yes. BLADDER MANAGEMENT - STEP 3: How much assistance does the patient require from the helper? Patient requires contact assistance fro m the helper BLADDER MANAGEMENT - STEP 4: How much contact assistance does the patient require from the helper? Patient requires minimal assist ance to maintain an external device - by positioning, and the patient performs 75% or more of bladder management tasks, while the helper provides less than 25% of the assistance to position patient on / off bedpan BLADDER MANAGEMENT - SCORE: 4-MIN BOWEL MANAGEMENT: Activity did not occur on this shift BOWEL MANAGEMENT - SCORE: 7-IND TRANSFERS: BED, CHAIR, WHEELCHAIR: TRANSFERS: BED, CHAIR, WHEELCHAIR - STEP 1: Does the patient require assistance of a person or device, or need extra time with bed, chair, or whe elchair transfers? Yes. TRANSFERS: BED, CHAIR, WHEELCHAIR - STEP 2: Does the patient require the assistance of a helper? Yes. TRANSFERS: BED, CHAIR, WHEELCHAIR - STEP 3: How much assistance does the patient require from the helper? Steadying/guiding assistance TRANSFERS: BED, CHAIR, WHEELCHAIR - SCORE: 4-MIN TRANSFERS: TOILET: TRANSFERS: TOILET - STEP 1: Does the patient require the assistance of a person or device, or need extra time with toilet transfe rs? Yes. TRANSFERS: TOILET - STEP 2: Does the patient require the assistance of a helper? Yes. TRANSFERS: TOILET - STEP 3: How much assistance does the patient require from the helper? Patient performs half or more of the tr ansferring tasks TRANSFERS: TOILET - STEP 4: Does the patient need only incidental help such as contact guard or steadying during toilet transfer? No. Patient needs more than incidental help TRANSFERS: TOILET - SCORE: 3-MOD TRANSFERS: SHOWER: Activity did not occur on this shift TRANSFERS: SHOWER - SCORE: 0-UNK TRANSFERS: TUB: Activity did not occur on this shift TRANSFERS: TUB - SCORE: 0-UNK LOCOMOTION: WALK: Activity did not occur on this shift LOCOMOTION: WALK - SCORE: 0-UNK LOCOMOTION: WHEELCHAIR: Activity did not occur on this shift LOCOMOTION: WHEELCHAIR - SCORE: 0-UNK COMPREHENSION: COMPREHENSION: TYPE: Both COMPREHENSION - STEP 1: Does the patient require help from a person or device, or need extra time to understand complex and a bstract ideas (such as current events, finances, discharge planning, medical issues, relationships, e tc)? No. COMPREHENSION - STEP 2: Does the patient need extra time, require an assistive device (such as glasses for visual comprehensi on or a hearing aid for auditory comprehension) or does s/he have mild difficulty understanding compl ex and abstract information? Yes. COMPREHENSION - SCORE: 6-JUAN FRANCISCO EXPRESSION EXPRESSION: TYPE: Both EXPRESSION - STEP 1: Does the patient require help from a person or device, or need extra time expressing complex and abst ract ideas (such as current events, finances, discharge planning, medical issues, relationships, etc) ? No. EXPRESSION - STEP 2: Does the patient need extra time, require an assistive device (such as augmentive communication syste m or a communication board), OR does s/he have mild difficulty expressing complex and abstract ideas (including mild dysarthria or mild word-find problems)? Yes. EXPRESSION - SCORE: 6-JUAN FRANCISCO SOCIAL INTERACTION: SOCIAL INTERACTION - STEP 1: Does the patient require a helper to interact with others in social and therapeutic situations? No. SOCIAL INTERACTION - STEP 2: Does the patient need extra time in social situations, OR does s/he interact with staff, other patien ts, and family members ONLY in structured environments, OR does s/he require medication for social in teraction? Yes, patient needs extra time SOCIAL INTERACTION - SCORE: 6-JUAN FRANCISCO PROBLEM SOLVING: PROBLEM SOLVING - STEP 1: Does the patient need help from a person or device, or need extra time to solve complex problems such as managing a checking account or confronting interpersonal problems? No. PROBLEM SOLVING - STEP 2: Does the patient require extra time to make decisions or solve problems, OR does s/he have slight dif ficulty reading, initiating, or self-correcting in unfamiliar situations? Yes, patient needs extra ti me. PROBLEM SOLVING - SCORE: 6-JUAN FRANCISCO MEMORY: MEMORY - STEP 1: Does the patient need help from a person or device, or need extra time to remember frequently encount ered people, daily routines, and executing requests? No. MEMORY - STEP 2: Does the patient have slight difficulty recognizing frequently encountered people, daily routines, or executing requests without the need for repetition or using self-initiated or environmental cues to remember? Yes. MEMORY - SCORE: 6-JUAN FRANCISCO
[2019-01-07] MEDS: PROMOD 30 ML DOSE PO SCH ×2 (08:00→20:01)
[2019-01-07] MEDS: MUPIROCIN 2% OINT 22GM TUBE TOP SCH ×2 (08:00→20:00)
[2019-01-07] MEDS: NYSTATIN PWDR 100000 UNIT/GM TOP SCH (08:00)
[2019-01-07] MEDS: SODIUM CHLORIDE 0.9% 10ML INJ IV SCH ×2 (08:00→20:00)
[2019-01-07] MEDS: FE SULF/FA/VIT B COMP & C TAB PO SCH (08:02)
[2019-01-07] MEDS: MAGNESIUM OXIDE 400 MG TAB PO SCH ×2 (08:02→20:01)
[2019-01-07] MEDS: LACTULOSE 20 GM/30 ML UCUP PO SCH ×2 (08:02→20:00)
[2019-01-07] MEDS: MIDODRINE HCL 5 MG TABLET PO SCH ×3 (08:02→20:55)
[2019-01-07] MEDS: ENSURE ENLIVE 237 ML CAN PO SCH ×2 (08:03→20:00)
[2019-01-07] MEDS: FERROUS SULFATE 325 MG TAB PO SCH (08:03)
[2019-01-07] MEDS: GABAPENTIN 100 MG CAP PO SCH ×3 (08:03→20:55)
[2019-01-07] MEDS: JUVEN PACKET PO SCH ×2 (08:04→20:00)
[2019-01-07] MEDS ORDERED: NYSTATIN PWDR 100000 UNIT/GM TOP PRN (09:43)
--- NOTE | 2019-01-07 14:24 | P.PN ---
Subjective Date of Service: 01/06/19 Subjective: Improving Vs stable abd distended RFT stable participating in PT/OT Physical Examination - Vital Signs Temperature: 96.8 F Blood Pressure: 96/49 Pulse: 77 Respirations: 16 Pulse Ox (%): 95 - Physical Exam General: Alert, In no apparent distress HEENT: Atraumatic Neck: Supple, Without JVD or thyroid abnormality Respiratory: Clear to auscultation bilaterally, Normal air movement Cardiovascular: No edema Gastrointestinal: No tenderness, Distended Musculoskeletal: No swelling - Studies Microbiology Data (last 24 hrs): 01/04/19 10:10 Body Fluid - Abdomen Gram Stain - Final 01/04/19 10:10 Body Fluid - Abdomen Culture & Sensitivity - Final Assessment And Plan - Current Problems (Diagnosis) (1) Cirrhosis Onset Date: 07/12/18 Current Visit: No Status: Acute Qualifiers: - Plan Acute kidney injury Cr stable now likely compartment improved after paracentecis renal dose meds lower side BP due to advanced cirrhosis +/- sepsis cont midodrine advanced cirrhosis not candidate for transplant or T[facility] poor prognosis
--- NOTE | 2019-01-07 15:32 | FAST ---
SHIFT START DATE/TIME: 01/07/2019 07:00 (CDT) SHIFT END DATE/TIME: 01/07/2019 19:00 (CDT) NAME EDGARD DÍAZ DATE OF : 1930 DATE OF ADMISSION: 12/29/2018 15:49 (CDT) PHONE: AGE: 88 N# [id number] GENDER: Female ENCOUNTER PHYSICIAN: Dr. Valeriano Flannery M.D. 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 EATING: EATING - STEP 1: Does the patient require the assistance of a person or device, or need extra time when eating? Yes. EATING - STEP 2: Does the patient require the assistance of a helper? Yes. EATING - STEP 3: Does the patient perform half or more of the eating tasks? Yes. EATING - STEP 4: Does the patient need only supervision, cuing, coaxing OR help to apply an orthosis OR help to cut fo od, open containers, pour liquids, or butter bread? Yes. EATING - SCORE: 5-SUP GROOMING: Comb/brush hair Oral care Wash, rinse, and dry face Wash, rinse, and dry hands GROOMING - STEP 1: Does the patient require the assistance of a person or device, or need extra time when grooming? Yes. GROOMING - STEP 2: Does the patient require the assistance of a helper? No. The patient only requires an assistive devic e, OR takes more than reasonable time to groom, OR there is a concern for safety as the patient groom s GROOMING - SCORE: 6-JUAN FRANCISCO BATHING: Activity did not occur on this shift BATHING - SCORE: 0-UNK DRESSING - UPPER BODY: T-shirt/pullover shirt (four steps) ARTICLES SCORE Total number of steps: 4 DRESSING - UPPER BODY - STEP 1: Does the patient require help from a person or device, or need extra time when dressing above the [address] st? Yes. DRESSING - UPPER BODY - STEP 2: Does the patient require the assistance of a helper? Yes. DRESSING - UPPER BODY - STEP 3: Does the helper touch the patient while dressing? No. DRESSING - UPPER BODY - SCORE: 5-SUP DRESSING - LOWER BODY: Elastic waist pants (three steps) Sock - Left foot (one step) Sock - Right foot (one step) Underwear (three steps) ARTICLES SCORE Total number of steps: 8 DRESSING - LOWER BODY - STEP 1: Does the patient require help from a person or device, or need extra time when dressing below the [address] st? Yes. DRESSING - LOWER BODY - STEP 2: Does the patient require the assistance of a helper? Yes. DRESSING - LOWER BODY - STEP 3: Does the helper touch the patient while dressing? Yes. DRESSING - LOWER BODY - STEP 4: How many of the total steps does the patient complete on his/her own? 6 DRESSING - LOWER BODY - SCORE: 4-MIN TOILETING: TOILETING - STEP 1: Does the patient require the assistance of a person or device, or need extra time with toileting? Yes . TOILETING - STEP 2: Does the patient require the assistance of a helper? Yes. TOILETING - STEP 3: How much assistance does the patient require from the helper? Only supervision TOILETING - SCORE: 5-SUP BLADDER MANAGEMENT: BLADDER MANAGEMENT - STEP 1: Does the patient control the bladder completely and intentionally without equipment or devices or med ications, and is always continent? No. BLADDER MANAGEMENT - STEP 2: Does the patient require the assistance of a helper? Yes. BLADDER MANAGEMENT - STEP 3: How much assistance does the patient require from the helper? Only supervision, stand-by, cuing, or c oaxing BLADDER MANAGEMENT - SCORE: 5-SUP BLADDER MANAGEMENT - FREQUENCY OF ACCIDENTS: BLADDER MANAGEMENT(FA) - STEP 1: How many accidents has the patient had during the current shift? 0 BOWEL MANAGEMENT: [place] removes incontinent device (depends, pull ups, etc.); cleans the patient after accident / inco ntinent episode; and, applies new device (depends, pull-ups, padding, etc.). BOWEL MANAGEMENT - SCORE: 1-DEP BOWEL MANAGEMENT - FREQUENCY OF ACCIDENTS: BOWEL MANAGEMENT(FA) - STEP 1: How many accidents has the patient had during the current shift? 1 TRANSFERS: BED, CHAIR, WHEELCHAIR: TRANSFERS: BED, CHAIR, WHEELCHAIR - STEP 1: Does the patient require assistance of a person or device, or need extra time with bed, chair, or whe elchair transfers? Yes. TRANSFERS: BED, CHAIR, WHEELCHAIR - STEP 2: Does the patient require the assistance of a helper? Yes. TRANSFERS: BED, CHAIR, WHEELCHAIR - STEP 3: How much assistance does the patient require from the helper? Only supervision TRANSFERS: BED, CHAIR, WHEELCHAIR - SCORE: 5-SUP TRANSFERS: TOILET: TRANSFERS: TOILET - STEP 1: Does the patient require the assistance of a person or device, or need extra time with toilet transfe rs? Yes. TRANSFERS: TOILET - STEP 2: Does the patient require the assistance of a helper? Yes. TRANSFERS: TOILET - STEP 3: How much assistance does the patient require from the helper? Patient performs half or more of the tr ansferring tasks TRANSFERS: TOILET - STEP 4: Does the patient need only incidental help such as contact guard or steadying during toilet transfer? Yes. TRANSFERS: TOILET - SCORE: 4-MIN TRANSFERS: SHOWER: Activity did not occur on this shift TRANSFERS: SHOWER - SCORE: 0-UNK TRANSFERS: TUB: Activity did not occur on this shift TRANSFERS: TUB - SCORE: 0-UNK LOCOMOTION: WALK: Activity did not occur on this shift LOCOMOTION: WALK - SCORE: 0-UNK LOCOMOTION: WHEELCHAIR: LOCOMOTION: WHEELCHAIR - STEP 1: Does the patient need help to go 150 feet in a wheelchair? Yes. LOCOMOTION: WHEELCHAIR - STEP 2: How much assistance does the patient need from the helper? Only supervision, cuing, or coaxing LOCOMOTION: WHEELCHAIR - SCORE: 5-SUP COMPREHENSION: COMPREHENSION: TYPE: Both COMPREHENSION - STEP 1: Does the patient require help from a person or device, or need extra time to understand complex and a bstract ideas (such as current events, finances, discharge planning, medical issues, relationships, e tc)? No. COMPREHENSION - STEP 2: Does the patient need extra time, require an assistive device (such as glasses for visual comprehensi on or a hearing aid for auditory comprehension) or does s/he have mild difficulty understanding compl ex and abstract information? Yes. COMPREHENSION - SCORE: 6-JUAN FRANCISCO EXPRESSION EXPRESSION: TYPE: Both EXPRESSION - STEP 1: Does the patient require help from a person or device, or need extra time expressing complex and abst ract ideas (such as current events, finances, discharge planning, medical issues, relationships, etc) ? No. EXPRESSION - STEP 2: Does the patient need extra time, require an assistive device (such as augmentive communication syste m or a communication board), OR does s/he have mild difficulty expressing complex and abstract ideas (including mild dysarthria or mild word-find problems)? Yes. EXPRESSION - SCORE: 6-JUAN FRANCISCO SOCIAL INTERACTION: SOCIAL INTERACTION - STEP 1: Does the patient require a helper to interact with others in social and therapeutic situations? No. SOCIAL INTERACTION - STEP 2: Does the patient need extra time in social situations, OR does s/he interact with staff, other patien ts, and family members ONLY in structured environments, OR does s/he require medication for social in teraction? Yes, patient needs extra time SOCIAL INTERACTION - SCORE: 6-JUAN FRANCISCO PROBLEM SOLVING: PROBLEM SOLVING - STEP 1: Does the patient need help from a person or device, or need extra time to solve complex problems such as managing a checking account or confronting interpersonal problems? No. PROBLEM SOLVING - STEP 2: Does the patient require extra time to make decisions or solve problems, OR does s/he have slight dif ficulty reading, initiating, or self-correcting in unfamiliar situations? Yes, patient needs extra ti me. PROBLEM SOLVING - SCORE: 6-JUAN FRANCISCO MEMORY: MEMORY - STEP 1: Does the patient need help from a person or device, or need extra time to remember frequently encount ered people, daily routines, and executing requests? No. MEMORY - STEP 2: Does the patient have slight difficulty recognizing frequently encountered people, daily routines, or executing requests without the need for repetition or using self-initiated or environmental cues to remember? Yes. MEMORY - SCORE: 6-JUAN FRANCISCO SIGNATURE PANEL: The following modified sections: Eating - Score, Grooming - Score, Bathing - Score, Dressing - Upper Body - Score, Dressing - Lower Body - Score, Toileting - Score, Bladder Management - Score, Bowel Man agement - Score, Transfers: Bed, Chair, Wheelchair - Score, Transfers: Toilet - Score, Transfers: Mariangel wer - Score, Transfers: Tub - Score, Locomotion: Walk - Score, Locomotion: Wheelchair - Score, Compre hension - Score, Expression - Score, Social Interaction - Score, Problem Solving - Score, Memory - Sc ore were [electronically] signed by Christina Ji C.N.A. on Sat Jan 07 2019 15:31:25 T-0500 (Centra l Daylight Time)
[2019-01-07] MEDS: DOCUSATE NA 100 MG CAP PO SCH (20:08)
[2019-01-07] MEDS: PANTOPRAZOLE 40MG TABLET PO SCH (20:17)
--- NOTE | 2019-01-08 01:28 | FAST ---
SHIFT START DATE/TIME: 01/07/2019 19:00 (CDT) SHIFT END DATE/TIME: 01/08/2019 07:00 (CDT) NAME EDGARD DÍAZ DATE OF : 1930 DATE OF ADMISSION: 12/29/2018 15:49 (CDT) PHONE: AGE: 88 N# [id number] GENDER: Female ENCOUNTER PHYSICIAN: Dr. Valeriano Flannery M.D. 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 EATING: Activity did not occur on this shift EATING - SCORE: 0-UNK GROOMING: Activity did not occur on this shift GROOMING - SCORE: 0-UNK BATHING: Activity did not occur on this shift BATHING - SCORE: 0-UNK DRESSING - UPPER BODY: Patient is not dressing in public clothing ARTICLES SCORE Total number of steps: 0 DRESSING - UPPER BODY - SCORE: 0-UNK DRESSING - LOWER BODY: Patient is not dressing in public clothing ARTICLES SCORE Total number of steps: 0 DRESSING - LOWER BODY - SCORE: 0-UNK TOILETING: TOILETING - STEP 1: Does the patient require the assistance of a person or device, or need extra time with toileting? Yes . TOILETING - STEP 2: Does the patient require the assistance of a helper? Yes. TOILETING - STEP 3: How much assistance does the patient require from the helper? Hands-on assistance from the helper TOILETING - STEP 4: Of the 3 tasks: 1) Adjusting clothing prior to use, 2) Cleansing of perineal area, 3) Adjusting clot sabine after use; How many tasks does the patient perform WITHOUT assistance of the helper? No tasks; h elper performs all three tasks TOILETING - SCORE: 1-DEP BLADDER MANAGEMENT: [place] removes incontinent device (Depends, pull ups, etc.); cleans the patient after accident / inco ntinent episode; and, applies new incontinent device. BLADDER MANAGEMENT - SCORE: 1-DEP BOWEL MANAGEMENT: BOWEL MANAGEMENT - STEP 1: Does the patient control bowels completely and intentionally without equipment devices or medications AND is always continent? No. BOWEL MANAGEMENT - STEP 2: Does the patient require the assistance of a helper? No, patient requires medication for control such as stool softeners, suppositories, laxatives, enemas, or OTC medications BOWEL MANAGEMENT - SCORE: 6-JUAN FRANCISCO TRANSFERS: BED, CHAIR, WHEELCHAIR: TRANSFERS: BED, CHAIR, WHEELCHAIR - STEP 1: Does the patient require assistance of a person or device, or need extra time with bed, chair, or whe elchair transfers? Yes. TRANSFERS: BED, CHAIR, WHEELCHAIR - STEP 2: Does the patient require the assistance of a helper? Yes. TRANSFERS: BED, CHAIR, WHEELCHAIR - STEP 3: How much assistance does the patient require from the helper? Steadying/guiding assistance TRANSFERS: BED, CHAIR, WHEELCHAIR - SCORE: 4-MIN TRANSFERS: TOILET: TRANSFERS: TOILET - STEP 1: Does the patient require the assistance of a person or device, or need extra time with toilet transfe rs? Yes. TRANSFERS: TOILET - STEP 2: Does the patient require the assistance of a helper? Yes. TRANSFERS: TOILET - STEP 3: How much assistance does the patient require from the helper? Only supervision, cuing, coaxing, OR he lp to set out transfer equipment or to lock brakes and/or lift foot rests TRANSFERS: TOILET - SCORE: 5-SUP TRANSFERS: SHOWER: Activity did not occur on this shift TRANSFERS: SHOWER - SCORE: 0-UNK TRANSFERS: TUB: Activity did not occur on this shift TRANSFERS: TUB - SCORE: 0-UNK LOCOMOTION: WALK: Activity did not occur on this shift LOCOMOTION: WALK - SCORE: 0-UNK LOCOMOTION: WHEELCHAIR: Activity did not occur on this shift LOCOMOTION: WHEELCHAIR - SCORE: 0-UNK COMPREHENSION: COMPREHENSION: TYPE: Both COMPREHENSION - STEP 1: Does the patient require help from a person or device, or need extra time to understand complex and a bstract ideas (such as current events, finances, discharge planning, medical issues, relationships, e tc)? No. COMPREHENSION - STEP 2: Does the patient need extra time, require an assistive device (such as glasses for visual comprehensi on or a hearing aid for auditory comprehension) or does s/he have mild difficulty understanding compl ex and abstract information? Yes. COMPREHENSION - SCORE: 6-JUAN FRANCISCO EXPRESSION EXPRESSION: TYPE: Both EXPRESSION - STEP 1: Does the patient require help from a person or device, or need extra time expressing complex and abst ract ideas (such as current events, finances, discharge planning, medical issues, relationships, etc) ? No. EXPRESSION - STEP 2: Does the patient need extra time, require an assistive device (such as augmentive communication syste m or a communication board), OR does s/he have mild difficulty expressing complex and abstract ideas (including mild dysarthria or mild word-find problems)? Yes. EXPRESSION - SCORE: 6-JUAN FRANCISCO SOCIAL INTERACTION: SOCIAL INTERACTION - STEP 1: Does the patient require a helper to interact with others in social and therapeutic situations? No. SOCIAL INTERACTION - STEP 2: Does the patient need extra time in social situations, OR does s/he interact with staff, other patien ts, and family members ONLY in structured environments, OR does s/he require medication for social in teraction? Yes, patient needs extra time SOCIAL INTERACTION - SCORE: 6-JUAN FRANCISCO PROBLEM SOLVING: PROBLEM SOLVING - STEP 1: Does the patient need help from a person or device, or need extra time to solve complex problems such as managing a checking account or confronting interpersonal problems? Yes. PROBLEM SOLVING - STEP 2: Does the patient solve basic routine problems half or more of the time? Yes. PROBLEM SOLVING - STEP 3: How often does the patient need help to solve basic routine problems? Less than 10% of the time PROBLEM SOLVING - SCORE: 5-SUP MEMORY: MEMORY - STEP 1: Does the patient need help from a person or device, or need extra time to remember frequently encount ered people, daily routines, and executing requests? No. MEMORY - STEP 2: Does the patient have slight difficulty recognizing frequently encountered people, daily routines, or executing requests without the need for repetition or using self-initiated or environmental cues to remember? Yes. MEMORY - SCORE: 6-JUAN FRANCISCO SIGNATURE PANEL: The following modified sections: Eating - Score, Grooming - Score, Dressing - Upper Body - Score, Jeffery ssing - Lower Body - Score, Toileting - Score, Bladder Management - Score, Bowel Management - Score, Transfers: Bed, Chair, Wheelchair - Score, Transfers: Toilet - Score, Transfers: Shower - Score, [place]lain sfers: Tub - Score, Locomotion: Walk - Score, Locomotion: Wheelchair - Score, Comprehension - Score, Expression - Score, Social Interaction - Score, Problem Solving - Score, Memory - Score were [electro nically] signed by Chitra Hurt CNA on WedJan 08 2019 01:27:24 GMT-0500 (Central Daylight Time)
[2019-01-08] MEDS: JUVEN PACKET PO SCH ×2 (08:00→20:00)
[2019-01-08] MEDS: SODIUM CHLORIDE 0.9% 10ML INJ IV SCH ×2 (08:00→20:00)
[2019-01-08] MEDS: MUPIROCIN 2% OINT 22GM TUBE TOP SCH ×2 (08:00→20:00)
[2019-01-08] MEDS: ENSURE ENLIVE 237 ML CAN PO SCH ×2 (08:00→20:10)
[2019-01-08] MEDS: PROMOD 30 ML DOSE PO SCH ×2 (08:00→20:08)
[2019-01-08] MEDS: MIDODRINE HCL 5 MG TABLET PO SCH ×3 (08:18→20:38)
[2019-01-08] MEDS: LACTULOSE 20 GM/30 ML UCUP PO SCH ×2 (08:18→20:06)
[2019-01-08] MEDS: GABAPENTIN 100 MG CAP PO SCH ×3 (08:19→20:38)
[2019-01-08] MEDS: FE SULF/FA/VIT B COMP & C TAB PO SCH (08:19)
[2019-01-08] MEDS: MAGNESIUM OXIDE 400 MG TAB PO SCH ×2 (08:19→20:08)
[2019-01-08] MEDS: FERROUS SULFATE 325 MG TAB PO SCH (08:19)
--- NOTE | 2019-01-08 12:14 | P.PN ---
Subjective Date of Service: 01/08/19 Subjective: No new changes BP borderline abd distended might benfit from another paracentecis RFT stable participating in PT/OT Physical Examination - Vital Signs Temperature: 96.8 F Blood Pressure: 91/53 Pulse: 84 Respirations: 16 Pulse Ox (%): 95 - Physical Exam General: In no apparent distress, Oriented x3, Cachectic Neck: Supple, Without JVD or thyroid abnormality Respiratory: Clear to auscultation bilaterally, Normal air movement Cardiovascular: Regular rate/rhythm, Normal S1 S2, Edema Gastrointestinal: No tenderness, Distended - Studies Microbiology Data (last 24 hrs): 01/04/19 10:10 Body Fluid - Abdomen Gram Stain - Final 01/04/19 10:10 Body Fluid - Abdomen Culture & Sensitivity - Final Assessment And Plan - Current Problems (Diagnosis) (1) Cirrhosis Onset Date: 07/12/18 Current Visit: No Status: Acute Qualifiers: - Plan Acute kidney injury Cr stable now likely compartment improved after paracentecis renal dose meds lower side BP due to advanced cirrhosis +/- sepsis cont midodrine advanced cirrhosis not candidate for transplant or TIPS paracentecis prn custodial poor prognosis
--- NOTE | 2019-01-08 13:07 | P.PN ---
Subjective Date of Service: 01/08/19 Subjective: Working w/ PT The patient is seen and examined. Chart reviewed and case discussed with RN. No family at bedside. Review of Systems 10-point ROS is otherwise unremarkable Physical Examination - Vital Signs Temperature: 96.8 F Blood Pressure: 91/53 Pulse: 84 Respirations: 16 Pulse Ox (%): 95 - Physical Exam General: Alert, In no apparent distress, Oriented x3 Gastrointestinal: Distended Musculoskeletal: No tenderness - Studies Microbiology Data (last 24 hrs): 01/04/19 10:10 Body Fluid - Abdomen Gram Stain - Final 01/04/19 10:10 Body Fluid - Abdomen Culture & Sensitivity - Final Assessment And Plan - Plan An 88-year-old female with: 1. Hepatorenal syndrome. Creatinine is improved. Appreciate Dr. Sequeira's input. 2. Acute hypotension. The patient was symptomatic yesterday. Diuretics have been held. Continue midodrine for blood pressure support. 3. Cirrhosis secondary to hepatitis C, status post recent paracentesis and albumin infusion. 5. Severe protein-calorie malnutrition. 6. Generalized weakness, improving. We will continue with physical therapy as tolerated. 7. Anemia. We will continue to monitor H and H. 8. Acute metabolic encephalopathy, resolved likely due to elevated kidney function and possible hepatic encephalopathy and hypotension. Plan: Paracentesis in a.m. Overall poor prognosis. Hospice services were offered. The patient declined at this time. Family and patient do not quite understand the grave prognosis of her condition. At this point, the patient is in a recurrent cycle of fluid buildup and paracentesis.
--- NOTE | 2019-01-08 14:31 | FAST ---
SHIFT START DATE/TIME: 01/08/2019 07:00 (CDT) SHIFT END DATE/TIME: 01/08/2019 19:00 (CDT) NAME EDGARD DÍAZ DATE OF : 1930 DATE OF ADMISSION: 12/29/2018 15:49 (CDT) PHONE: AGE: 88 N# [id number] GENDER: Female ENCOUNTER PHYSICIAN: Dr. Valeriano Flannery M.D. 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 EATING: EATING - STEP 1: Does the patient require the assistance of a person or device, or need extra time when eating? Yes. EATING - STEP 2: Does the patient require the assistance of a helper? Yes. EATING - STEP 3: Does the patient perform half or more of the eating tasks? Yes. EATING - STEP 4: Does the patient need only supervision, cuing, coaxing OR help to apply an orthosis OR help to cut fo od, open containers, pour liquids, or butter bread? Yes. EATING - SCORE: 5-SUP GROOMING: Comb/brush hair Oral care Wash, rinse, and dry face Wash, rinse, and dry hands GROOMING - STEP 1: Does the patient require the assistance of a person or device, or need extra time when grooming? Yes. GROOMING - STEP 2: Does the patient require the assistance of a helper? No. The patient only requires an assistive devic e, OR takes more than reasonable time to groom, OR there is a concern for safety as the patient groom s GROOMING - SCORE: 6-JUAN FRANCISCO BATHING: Activity did not occur on this shift BATHING - SCORE: 0-UNK DRESSING - UPPER BODY: Bra (three steps) T-shirt/pullover shirt (four steps) ARTICLES SCORE Total number of steps: 7 DRESSING - UPPER BODY - STEP 1: Does the patient require help from a person or device, or need extra time when dressing above the [address] st? Yes. DRESSING - UPPER BODY - STEP 2: Does the patient require the assistance of a helper? Yes. DRESSING - UPPER BODY - STEP 3: Does the helper touch the patient while dressing? No. DRESSING - UPPER BODY - SCORE: 5-SUP DRESSING - LOWER BODY: Elastic waist pants (three steps) Slip-on shoe - Left foot (one step) Slip-on shoe - Right foot (one step) Underwear (three steps) ARTICLES SCORE Total number of steps: 8 DRESSING - LOWER BODY - STEP 1: Does the patient require help from a person or device, or need extra time when dressing below the [address]innie st? Yes. DRESSING - LOWER BODY - STEP 2: Does the patient require the assistance of a helper? Yes. DRESSING - LOWER BODY - STEP 3: Does the helper touch the patient while dressing? No. DRESSING - LOWER BODY - SCORE: 5-SUP TOILETING: TOILETING - STEP 1: Does the patient require the assistance of a person or device, or need extra time with toileting? Yes . TOILETING - STEP 2: Does the patient require the assistance of a helper? Yes. TOILETING - STEP 3: How much assistance does the patient require from the helper? Only supervision TOILETING - SCORE: 5-SUP BLADDER MANAGEMENT: BLADDER MANAGEMENT - STEP 1: Does the patient control the bladder completely and intentionally without equipment or devices or med ications, and is always continent? No. BLADDER MANAGEMENT - STEP 2: Does the patient require the assistance of a helper? Yes. BLADDER MANAGEMENT - STEP 3: How much assistance does the patient require from the helper? Only supervision, stand-by, cuing, or c oaxing BLADDER MANAGEMENT - SCORE: 5-SUP BLADDER MANAGEMENT - FREQUENCY OF ACCIDENTS: BLADDER MANAGEMENT(FA) - STEP 1: How many accidents has the patient had during the current shift? 0 BOWEL MANAGEMENT: BOWEL MANAGEMENT - STEP 1: Does the patient control bowels completely and intentionally without equipment devices or medications AND is always continent? No. BOWEL MANAGEMENT - STEP 2: Does the patient require the assistance of a helper? No, patient requires and manages independently a n assistive device such as a bedpan, bedside commode, absorbent pad, incontinent device, or collectin g device BOWEL MANAGEMENT - SCORE: 6-JUAN FRANCISCO BOWEL MANAGEMENT - FREQUENCY OF ACCIDENTS: BOWEL MANAGEMENT(FA) - STEP 1: How many accidents has the patient had during the current shift? 1 TRANSFERS: BED, CHAIR, WHEELCHAIR: TRANSFERS: BED, CHAIR, WHEELCHAIR - STEP 1: Does the patient require assistance of a person or device, or need extra time with bed, chair, or whe elchair transfers? Yes. TRANSFERS: BED, CHAIR, WHEELCHAIR - STEP 2: Does the patient require the assistance of a helper? Yes. TRANSFERS: BED, CHAIR, WHEELCHAIR - STEP 3: How much assistance does the patient require from the helper? Only supervision TRANSFERS: BED, CHAIR, WHEELCHAIR - SCORE: 5-SUP TRANSFERS: TOILET: TRANSFERS: TOILET - STEP 1: Does the patient require the assistance of a person or device, or need extra time with toilet transfe rs? Yes. TRANSFERS: TOILET - STEP 2: Does the patient require the assistance of a helper? Yes. TRANSFERS: TOILET - STEP 3: How much assistance does the patient require from the helper? Patient performs half or more of the tr ansferring tasks TRANSFERS: TOILET - STEP 4: Does the patient need only incidental help such as contact guard or steadying during toilet transfer? Yes. TRANSFERS: TOILET - SCORE: 4-MIN TRANSFERS: SHOWER: Activity did not occur on this shift TRANSFERS: SHOWER - SCORE: 0-UNK TRANSFERS: TUB: Activity did not occur on this shift TRANSFERS: TUB - SCORE: 0-UNK LOCOMOTION: WALK: Activity did not occur on this shift LOCOMOTION: WALK - SCORE: 0-UNK LOCOMOTION: WHEELCHAIR: LOCOMOTION: WHEELCHAIR - STEP 1: Does the patient need help to go 150 feet in a wheelchair? Yes. LOCOMOTION: WHEELCHAIR - STEP 2: How much assistance does the patient need from the helper? Only supervision, cuing, or coaxing LOCOMOTION: WHEELCHAIR - SCORE: 5-SUP COMPREHENSION: COMPREHENSION: TYPE: Both COMPREHENSION - STEP 1: Does the patient require help from a person or device, or need extra time to understand complex and a bstract ideas (such as current events, finances, discharge planning, medical issues, relationships, e tc)? No. COMPREHENSION - STEP 2: Does the patient need extra time, require an assistive device (such as glasses for visual comprehensi on or a hearing aid for auditory comprehension) or does s/he have mild difficulty understanding compl ex and abstract information? Yes. COMPREHENSION - SCORE: 6-JUAN FRANCISCO EXPRESSION EXPRESSION: TYPE: Both EXPRESSION - STEP 1: Does the patient require help from a person or device, or need extra time expressing complex and abst ract ideas (such as current events, finances, discharge planning, medical issues, relationships, etc) ? No. EXPRESSION - STEP 2: Does the patient need extra time, require an assistive device (such as augmentive communication syste m or a communication board), OR does s/he have mild difficulty expressing complex and abstract ideas (including mild dysarthria or mild word-find problems)? Yes. EXPRESSION - SCORE: 6-JUAN FRANCISCO SOCIAL INTERACTION: SOCIAL INTERACTION - STEP 1: Does the patient require a helper to interact with others in social and therapeutic situations? No. SOCIAL INTERACTION - STEP 2: Does the patient need extra time in social situations, OR does s/he interact with staff, other patien ts, and family members ONLY in structured environments, OR does s/he require medication for social in teraction? Yes, patient needs extra time SOCIAL INTERACTION - SCORE: 6-JUAN FRANCISCO PROBLEM SOLVING: PROBLEM SOLVING - STEP 1: Does the patient need help from a person or device, or need extra time to solve complex problems such as managing a checking account or confronting interpersonal problems? No. PROBLEM SOLVING - STEP 2: Does the patient require extra time to make decisions or solve problems, OR does s/he have slight dif ficulty reading, initiating, or self-correcting in unfamiliar situations? Yes, patient needs extra ti me. PROBLEM SOLVING - SCORE: 6-JUAN FRANCISCO MEMORY: MEMORY - STEP 1: Does the patient need help from a person or device, or need extra time to remember frequently encount ered people, daily routines, and executing requests? No. MEMORY - STEP 2: Does the patient have slight difficulty recognizing frequently encountered people, daily routines, or executing requests without the need for repetition or using self-initiated or environmental cues to remember? Yes. MEMORY - SCORE: 6-JUAN FRANCISCO SIGNATURE PANEL: The following modified sections: Eating - Score, Grooming - Score, Bathing - Score, Dressing - Upper Body - Score, Dressing - Lower Body - Score, Toileting - Score, Bladder Management - Score, Bowel Man agement - Score, Transfers: Bed, Chair, Wheelchair - Score, Transfers: Toilet - Score, Transfers: Mariangel wer - Score, Transfers: Tub - Score, Locomotion: Walk - Score, Locomotion: Wheelchair - Score, Compre hension - Score, Expression - Score, Social Interaction - Score, Problem Solving - Score, Memory - Sc ore were [electronically] signed by Christina Ji C.N.A. on WedJan 08 2019 14:30:37 T-0500 (Centra l Daylight Time)
[2019-01-08] MEDS: DOCUSATE NA 100 MG CAP PO SCH (20:07)
[2019-01-08] MEDS: PANTOPRAZOLE 40MG TABLET PO SCH (20:16)
--- NOTE | 2019-01-09 02:29 | FAST ---
SHIFT START DATE/TIME: 01/08/2019 19:00 (CDT) SHIFT END DATE/TIME: 01/09/2019 07:00 (CDT) NAME EDGARD DÍAZ DATE OF : 1930 DATE OF ADMISSION: 12/29/2018 15:49 (CDT) PHONE: AGE: 88 N# [id number] GENDER: Female ENCOUNTER PHYSICIAN: Dr. Valeriano Flannery M.D. 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 EATING: Activity did not occur on this shift EATING - SCORE: 0-UNK GROOMING: Activity did not occur on this shift GROOMING - SCORE: 0-UNK BATHING: Activity did not occur on this shift BATHING - SCORE: 0-UNK DRESSING - UPPER BODY: Patient is not dressing in public clothing ARTICLES SCORE Total number of steps: 0 DRESSING - UPPER BODY - SCORE: 0-UNK DRESSING - LOWER BODY: Patient is not dressing in public clothing ARTICLES SCORE Total number of steps: 0 DRESSING - LOWER BODY - SCORE: 0-UNK TOILETING: TOILETING - STEP 1: Does the patient require the assistance of a person or device, or need extra time with toileting? Yes . TOILETING - STEP 2: Does the patient require the assistance of a helper? Yes. TOILETING - STEP 3: How much assistance does the patient require from the helper? Hands-on assistance from the helper TOILETING - STEP 4: Of the 3 tasks: 1) Adjusting clothing prior to use, 2) Cleansing of perineal area, 3) Adjusting clot sabine after use; How many tasks does the patient perform WITHOUT assistance of the helper? Two tasks TOILETING - SCORE: 3-MOD BLADDER MANAGEMENT: Buda removes incontinent device (Depends, pull ups, etc.); cleans the patient after accident / inco ntinent episode; and, applies new incontinent device. BLADDER MANAGEMENT - SCORE: 1-DEP BOWEL MANAGEMENT: BOWEL MANAGEMENT - STEP 1: Does the patient control bowels completely and intentionally without equipment devices or medications AND is always continent? No. BOWEL MANAGEMENT - STEP 2: Does the patient require the assistance of a helper? No, patient requires medication for control such as stool softeners, suppositories, laxatives, enemas, or OTC medications BOWEL MANAGEMENT - SCORE: 6-JUAN FRANCISCO TRANSFERS: BED, CHAIR, WHEELCHAIR: TRANSFERS: BED, CHAIR, WHEELCHAIR - STEP 1: Does the patient require assistance of a person or device, or need extra time with bed, chair, or whe elchair transfers? Yes. TRANSFERS: BED, CHAIR, WHEELCHAIR - STEP 2: Does the patient require the assistance of a helper? Yes. TRANSFERS: BED, CHAIR, WHEELCHAIR - STEP 3: How much assistance does the patient require from the helper? Steadying/guiding assistance TRANSFERS: BED, CHAIR, WHEELCHAIR - SCORE: 4-MIN TRANSFERS: TOILET: TRANSFERS: TOILET - STEP 1: Does the patient require the assistance of a person or device, or need extra time with toilet transfe rs? Yes. TRANSFERS: TOILET - STEP 2: Does the patient require the assistance of a helper? Yes. TRANSFERS: TOILET - STEP 3: How much assistance does the patient require from the helper? Only supervision, cuing, coaxing, OR he lp to set out transfer equipment or to lock brakes and/or lift foot rests TRANSFERS: TOILET - SCORE: 5-SUP TRANSFERS: SHOWER: Activity did not occur on this shift TRANSFERS: SHOWER - SCORE: 0-UNK TRANSFERS: TUB: Activity did not occur on this shift TRANSFERS: TUB - SCORE: 0-UNK LOCOMOTION: WALK: Activity did not occur on this shift LOCOMOTION: WALK - SCORE: 0-UNK LOCOMOTION: WHEELCHAIR: Activity did not occur on this shift LOCOMOTION: WHEELCHAIR - SCORE: 0-UNK COMPREHENSION: COMPREHENSION: TYPE: Both COMPREHENSION - STEP 1: Does the patient require help from a person or device, or need extra time to understand complex and a bstract ideas (such as current events, finances, discharge planning, medical issues, relationships, e tc)? No. COMPREHENSION - STEP 2: Does the patient need extra time, require an assistive device (such as glasses for visual comprehensi on or a hearing aid for auditory comprehension) or does s/he have mild difficulty understanding compl ex and abstract information? Yes. COMPREHENSION - SCORE: 6-JUAN FRANCISCO EXPRESSION EXPRESSION: TYPE: Both EXPRESSION - STEP 1: Does the patient require help from a person or device, or need extra time expressing complex and abst ract ideas (such as current events, finances, discharge planning, medical issues, relationships, etc) ? No. EXPRESSION - STEP 2: Does the patient need extra time, require an assistive device (such as augmentive communication syste m or a communication board), OR does s/he have mild difficulty expressing complex and abstract ideas (including mild dysarthria or mild word-find problems)? No. EXPRESSION - SCORE: 7-IND SOCIAL INTERACTION: SOCIAL INTERACTION - STEP 1: Does the patient require a helper to interact with others in social and therapeutic situations? No. SOCIAL INTERACTION - STEP 2: Does the patient need extra time in social situations, OR does s/he interact with staff, other patien ts, and family members ONLY in structured environments, OR does s/he require medication for social in teraction? Yes, patient needs extra time SOCIAL INTERACTION - SCORE: 6-JUAN FRANCISCO PROBLEM SOLVING: PROBLEM SOLVING - STEP 1: Does the patient need help from a person or device, or need extra time to solve complex problems such as managing a checking account or confronting interpersonal problems? Yes. PROBLEM SOLVING - STEP 2: Does the patient solve basic routine problems half or more of the time? Yes. PROBLEM SOLVING - STEP 3: How often does the patient need help to solve basic routine problems? Less than 10% of the time PROBLEM SOLVING - SCORE: 5-SUP MEMORY: MEMORY - STEP 1: Does the patient need help from a person or device, or need extra time to remember frequently encount ered people, daily routines, and executing requests? No. MEMORY - STEP 2: Does the patient have slight difficulty recognizing frequently encountered people, daily routines, or executing requests without the need for repetition or using self-initiated or environmental cues to remember? Yes. MEMORY - SCORE: 6-JUAN FRANCISCO SIGNATURE PANEL: The following modified sections: Eating - Score, Grooming - Score, Dressing - Upper Body - Score, Jeffery ssing - Lower Body - Score, Toileting - Score, Bladder Management - Score, Bowel Management - Score, Transfers: Bed, Chair, Wheelchair - Score, Transfers: Toilet - Score, Transfers: Shower - Score, Chamberlain sfers: Tub - Score, Locomotion: Walk - Score, Locomotion: Wheelchair - Score, Comprehension - Score, Expression - Score, Social Interaction - Score, Problem Solving - Score, Memory - Score were [electro nically] signed by Chitra Hurt CNA on WedJan 09 2019 02:28:03 GMT-0500 (Central Daylight Time)
[2019-01-09] MEDS: SODIUM CHLORIDE 0.9% 10ML INJ IV SCH ×2 (08:00→19:27)
[2019-01-09] MEDS: JUVEN PACKET PO SCH ×2 (08:00→19:24)
[2019-01-09] MEDS: MUPIROCIN 2% OINT 22GM TUBE TOP SCH ×2 (08:14→19:26)
[2019-01-09] MEDS: LACTULOSE 20 GM/30 ML UCUP PO SCH ×2 (08:15→19:24)
[2019-01-09] MEDS: PROMOD 30 ML DOSE PO SCH ×2 (08:17→19:24)
[2019-01-09] MEDS: MAGNESIUM OXIDE 400 MG TAB PO SCH ×2 (08:18→19:27)
[2019-01-09] MEDS: FE SULF/FA/VIT B COMP & C TAB PO SCH (08:18)
[2019-01-09] MEDS: GABAPENTIN 100 MG CAP PO SCH ×3 (08:18→20:09)
[2019-01-09] MEDS: FERROUS SULFATE 325 MG TAB PO SCH (08:18)
[2019-01-09] MEDS: MIDODRINE HCL 5 MG TABLET PO SCH ×3 (08:19→20:09)
[2019-01-09] MEDS: ENSURE ENLIVE 237 ML CAN PO SCH ×2 (08:19→19:24)
--- NOTE | 2019-01-09 14:41 | FAST ---
ENCOUNTER DATE AND TIME: 01/09/2019 08:00 (CDT) NAME EDGARD DÍAZ DATE OF : 1930 DATE OF ADMISSION: 12/29/2018 15:49 (CDT) PHONE: AGE: 88 N# [id number] GENDER: Female ENCOUNTER PHYSICIAN: Dr. Valeriano Flannery M.D. 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 EATING: Activity did not occur on this shift EATING - SCORE: 0-UNK GROOMING: Comb/brush hair Wash, rinse, and dry face Wash, rinse, and dry hands GROOMING - STEP 1: Does the patient require the assistance of a person or device, or need extra time when grooming? No. GROOMING - SCORE: 7-IND BATHING: Abdomen Buttocks Chest Left arm Left lower leg and foot Left upper leg Perineal area Right arm Right lower leg and foot Right upper leg BATHING - STEP 1: Does the patient require the assistance of a person or device, or need extra time when bathing? Yes. BATHING - STEP 2: Does the patient require the assistance of a helper? Yes. BATHING - STEP 3: How much assistance does the patient require from the helper? Only supervision, cuing, coaxing, instr uctions, encouragement BATHING - SCORE: 5-SUP DRESSING - UPPER BODY: T-shirt/pullover shirt (four steps) ARTICLES SCORE Total number of steps: 4 DRESSING - UPPER BODY - STEP 1: Does the patient require help from a person or device, or need extra time when dressing above the [address]? No. DRESSING - UPPER BODY - SCORE: 7-IND DRESSING - LOWER BODY: Sock - Left foot (one step) Sock - Right foot (one step) Underwear (three steps) ARTICLES SCORE Total number of steps: 5 DRESSING - LOWER BODY - STEP 1: Does the patient require help from a person or device, or need extra time when dressing below the [address] st? Yes. DRESSING - LOWER BODY - STEP 2: Does the patient require the assistance of a helper? Yes. DRESSING - LOWER BODY - STEP 3: Does the helper touch the patient while dressing? No. DRESSING - LOWER BODY - SCORE: 5-SUP TOILETING: TOILETING - STEP 1: Does the patient require the assistance of a person or device, or need extra time with toileting? Yes . TOILETING - STEP 2: Does the patient require the assistance of a helper? No. TOILETING - SCORE: 6-JUAN FRANCISCO BLADDER MANAGEMENT: Activity did not occur on this shift BLADDER MANAGEMENT - SCORE: 7-IND BOWEL MANAGEMENT: Activity did not occur on this shift BOWEL MANAGEMENT - SCORE: 7-IND TRANSFERS: BED, CHAIR, WHEELCHAIR: Activity did not occur on this shift TRANSFERS: BED, CHAIR, WHEELCHAIR - SCORE: 0-UNK TRANSFERS: TOILET: TRANSFERS: TOILET - STEP 1: Does the patient require the assistance of a person or device, or need extra time with toilet transfe rs? Yes. TRANSFERS: TOILET - STEP 2: Does the patient require the assistance of a helper? Yes. TRANSFERS: TOILET - STEP 3: How much assistance does the patient require from the helper? Only supervision, cuing, coaxing, OR he lp to set out transfer equipment or to lock brakes and/or lift foot rests TRANSFERS: TOILET - SCORE: 5-SUP TRANSFERS: SHOWER: Activity did not occur on this shift TRANSFERS: SHOWER - SCORE: 0-UNK TRANSFERS: TUB: TRANSFERS: TUB - STEP 1: Does the patient require the assistance of a person or device, or need extra time with tub transfers? Yes. TRANSFERS: TUB - STEP 2: Does the patient require the assistance of a helper? Yes. TRANSFERS: TUB - STEP 3: How much assistance does the patient require from the helper? Only supervision, cuing, coaxing, or he lp to set out transfer equipment or to lock brakes and/or lift foot rests TRANSFERS: TUB - SCORE: 5-SUP LOCOMOTION: WALK: Activity did not occur on this shift LOCOMOTION: WALK - SCORE: 0-UNK LOCOMOTION: WHEELCHAIR: Activity did not occur on this shift LOCOMOTION: WHEELCHAIR - SCORE: 0-UNK LOCOMOTION: STAIRS: Activity did not occur on this shift LOCOMOTION: STAIRS - SCORE: 0-UNK COMPREHENSION: COMPREHENSION: TYPE: Auditory COMPREHENSION - STEP 1: Does the patient require help from a person or device, or need extra time to understand complex and a bstract ideas (such as current events, finances, discharge planning, medical issues, relationships, e tc)? No. COMPREHENSION - STEP 2: Does the patient need extra time, require an assistive device (such as glasses for visual comprehensi on or a hearing aid for auditory comprehension) or does s/he have mild difficulty understanding compl ex and abstract information? Yes. COMPREHENSION - SCORE: 6-JUAN FRANCISCO EXPRESSION EXPRESSION: TYPE: Non-Vocal EXPRESSION - STEP 1: Does the patient require help from a person or device, or need extra time expressing complex and abst ract ideas (such as current events, finances, discharge planning, medical issues, relationships, etc) ? No. EXPRESSION - STEP 2: Does the patient need extra time, require an assistive device (such as augmentive communication syste m or a communication board), OR does s/he have mild difficulty expressing complex and abstract ideas (including mild dysarthria or mild word-find problems)? No. EXPRESSION - SCORE: 7-IND SOCIAL INTERACTION: SOCIAL INTERACTION - STEP 1: Does the patient require a helper to interact with others in social and therapeutic situations? No. SOCIAL INTERACTION - STEP 2: Does the patient need extra time in social situations, OR does s/he interact with staff, other patien ts, and family members ONLY in structured environments, OR does s/he require medication for social in teraction? No. SOCIAL INTERACTION - SCORE: 7-IND PROBLEM SOLVING: PROBLEM SOLVING - STEP 1: Does the patient need help from a person or device, or need extra time to solve complex problems such as managing a checking account or confronting interpersonal problems? No. PROBLEM SOLVING - STEP 2: Does the patient require extra time to make decisions or solve problems, OR does s/he have slight dif ficulty reading, initiating, or self-correcting in unfamiliar situations? No. PROBLEM SOLVING - SCORE: 7-IND MEMORY: MEMORY - STEP 1: Does the patient need help from a person or device, or need extra time to remember frequently encount ered people, daily routines, and executing requests? No. MEMORY - STEP 2: Does the patient have slight difficulty recognizing frequently encountered people, daily routines, or executing requests without the need for repetition or using self-initiated or environmental cues to remember? No. MEMORY - SCORE: 7-IND SIGNATURE PANEL: The following modified sections: Eating - Score, Grooming - Score, Bathing - Score, Dressing - Upper Body - Score, Dressing - Lower Body - Score, Toileting - Score, Transfers: Bed, Chair, Wheelchair - S core, Transfers: Toilet - Score, Transfers: Shower - Score, Transfers: Tub - Score, Comprehension - S core, Expression - Score, Social Interaction - Score, Problem Solving - Score, Memory - Score were [e lectronically] signed by BEATRIZ Powell on WedJan 09 2019 14:40:[address] [facility]-0500 ([facility] Time)
--- NOTE | 2019-01-09 15:35 | FAST ---
SHIFT START DATE/TIME: 01/09/2019 07:00 (CDT) SHIFT END DATE/TIME: 01/09/2019 19:00 (CDT) NAME EDGARD DÍAZ DATE OF : 1930 DATE OF ADMISSION: 12/29/2018 15:49 (CDT) PHONE: AGE: 88 N# [id number] GENDER: Female ENCOUNTER PHYSICIAN: Dr. Valeriano Flannery M.D. 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 EATING: EATING - STEP 1: Does the patient require the assistance of a person or device, or need extra time when eating? Yes. EATING - STEP 2: Does the patient require the assistance of a helper? No, patient only requires an assistive device, O R s/he takes more than reasonable time to eat, OR there is a safety concern, OR s/he requires modifie d food consistency EATING - SCORE: 6-JUAN FRANCISCO GROOMING: Activity did not occur on this shift GROOMING - SCORE: 0-UNK BATHING: Activity did not occur on this shift BATHING - SCORE: 0-UNK DRESSING - UPPER BODY: Activity did not occur on this shift ARTICLES SCORE Total number of steps: 0 DRESSING - UPPER BODY - SCORE: 0-UNK DRESSING - LOWER BODY: Activity did not occur on this shift ARTICLES SCORE Total number of steps: 0 DRESSING - LOWER BODY - SCORE: 0-UNK TOILETING: TOILETING - STEP 1: Does the patient require the assistance of a person or device, or need extra time with toileting? Yes . TOILETING - STEP 2: Does the patient require the assistance of a helper? Yes. TOILETING - STEP 3: How much assistance does the patient require from the helper? Hands-on assistance from the helper TOILETING - STEP 4: Of the 3 tasks: 1) Adjusting clothing prior to use, 2) Cleansing of perineal area, 3) Adjusting clot sabine after use; How many tasks does the patient perform WITHOUT assistance of the helper? Two tasks TOILETING - SCORE: 3-MOD BLADDER MANAGEMENT: BLADDER MANAGEMENT - STEP 1: Does the patient control the bladder completely and intentionally without equipment or devices or med ications, and is always continent? No. BLADDER MANAGEMENT - STEP 2: Does the patient require the assistance of a helper? No, patient requires and independently uses an a ssistive device, such as a urinal, bedpan, bedside commode, catheter, absorbent pad, or collecting de vice BLADDER MANAGEMENT - SCORE: 6-JUAN FRANCISCO BOWEL MANAGEMENT: Activity did not occur on this shift BOWEL MANAGEMENT - SCORE: 7-IND TRANSFERS: BED, CHAIR, WHEELCHAIR: TRANSFERS: BED, CHAIR, WHEELCHAIR - STEP 1: Does the patient require assistance of a person or device, or need extra time with bed, chair, or whe elchair transfers? Yes. TRANSFERS: BED, CHAIR, WHEELCHAIR - STEP 2: Does the patient require the assistance of a helper? Yes. TRANSFERS: BED, CHAIR, WHEELCHAIR - STEP 3: How much assistance does the patient require from the helper? Steadying/guiding assistance TRANSFERS: BED, CHAIR, WHEELCHAIR - SCORE: 4-MIN TRANSFERS: TOILET: TRANSFERS: TOILET - STEP 1: Does the patient require the assistance of a person or device, or need extra time with toilet transfe rs? Yes. TRANSFERS: TOILET - STEP 2: Does the patient require the assistance of a helper? Yes. TRANSFERS: TOILET - STEP 3: How much assistance does the patient require from the helper? Only supervision, cuing, coaxing, OR he lp to set out transfer equipment or to lock brakes and/or lift foot rests TRANSFERS: TOILET - SCORE: 5-SUP TRANSFERS: SHOWER: Activity did not occur on this shift TRANSFERS: SHOWER - SCORE: 0-UNK TRANSFERS: TUB: Activity did not occur on this shift TRANSFERS: TUB - SCORE: 0-UNK LOCOMOTION: WALK: Activity did not occur on this shift LOCOMOTION: WALK - SCORE: 0-UNK LOCOMOTION: WHEELCHAIR: Activity did not occur on this shift LOCOMOTION: WHEELCHAIR - SCORE: 0-UNK COMPREHENSION: COMPREHENSION: TYPE: Both COMPREHENSION - STEP 1: Does the patient require help from a person or device, or need extra time to understand complex and a bstract ideas (such as current events, finances, discharge planning, medical issues, relationships, e tc)? No. COMPREHENSION - STEP 2: Does the patient need extra time, require an assistive device (such as glasses for visual comprehensi on or a hearing aid for auditory comprehension) or does s/he have mild difficulty understanding compl ex and abstract information? Yes. COMPREHENSION - SCORE: 6-JUAN FRANCISCO EXPRESSION EXPRESSION: TYPE: Both EXPRESSION - STEP 1: Does the patient require help from a person or device, or need extra time expressing complex and abst ract ideas (such as current events, finances, discharge planning, medical issues, relationships, etc) ? No. EXPRESSION - STEP 2: Does the patient need extra time, require an assistive device (such as augmentive communication syste m or a communication board), OR does s/he have mild difficulty expressing complex and abstract ideas (including mild dysarthria or mild word-find problems)? Yes. EXPRESSION - SCORE: 6-JUAN FRANCISCO SOCIAL INTERACTION: SOCIAL INTERACTION - STEP 1: Does the patient require a helper to interact with others in social and therapeutic situations? No. SOCIAL INTERACTION - STEP 2: Does the patient need extra time in social situations, OR does s/he interact with staff, other patien ts, and family members ONLY in structured environments, OR does s/he require medication for social in teraction? Yes, patient needs extra time SOCIAL INTERACTION - SCORE: 6-JUAN FRANCISCO PROBLEM SOLVING: PROBLEM SOLVING - STEP 1: Does the patient need help from a person or device, or need extra time to solve complex problems such as managing a checking account or confronting interpersonal problems? No. PROBLEM SOLVING - STEP 2: Does the patient require extra time to make decisions or solve problems, OR does s/he have slight dif ficulty reading, initiating, or self-correcting in unfamiliar situations? Yes, patient needs extra ti me. PROBLEM SOLVING - SCORE: 6-JUAN FRANCISCO MEMORY: MEMORY - STEP 1: Does the patient need help from a person or device, or need extra time to remember frequently encount ered people, daily routines, and executing requests? No. MEMORY - STEP 2: Does the patient have slight difficulty recognizing frequently encountered people, daily routines, or executing requests without the need for repetition or using self-initiated or environmental cues to remember? Yes. MEMORY - SCORE: 6-JUAN FRANCISCO SIGNATURE PANEL: The following modified sections: Eating - Score, Grooming - Score, Bathing - Score, Dressing - Upper Body - Score, Dressing - Lower Body - Score, Toileting - Score, Bladder Management - Score, Bowel Man agement - Score, Transfers: Bed, Chair, Wheelchair - Score, Transfers: Toilet - Score, Transfers: Mariangel wer - Score, Transfers: Tub - Score, Locomotion: Walk - Score, Locomotion: Wheelchair - Score, Compre hension - Score, Expression - Score, Social Interaction - Score, Problem Solving - Score, Memory - Sc ore were [electronically] signed by Abdon William on WedJan 09 2019 15:34:39 GMT-0500 (Central Daylight Time)
--- NOTE | 2019-01-09 18:21 | R.PN ---
ENCOUNTER DATE AND TIME: 01/09/2019 18:18 (CDT) NAME EDGARD DÍAZ DATE OF : 1930 DATE OF ADMISSION: 12/29/2018 15:49 (CDT) Liver CirrhosisCHIEF COMPLAINT: Debility and liver cirrhosis SUBJECTIVE: Pt denied any depression. Pt denied any Shortness of Breath. Doppler of lower extremities reveal no DVTs or significant PAD. Ambulated 350' with modified independence using a rolling walker. Up and down 5 steps with standby as sistance. Propelled wheelchair 250' with standby assistance. Performed ADLs with standby assistance. VITAL SIGNS Temperature: 98.7 F SBP/DBP: 97/58 Pulse: 80 Resp:16 MEDICATION ALLERGIES: Morphine Sulfate ENVIRONMENTAL ALLERGIES: None Known - Substance Allergies None Known - Other Allergies ADHESIVE TAPE NURSING: - Shower allowing shower ACTIVITIES OOB only with supervision THERAPIES: - Occupational Therapy Evaluate and Treat. - Physical Therapy Evaluate and Treat. PHYSICAL EXAM - Gen Alert and awake Lying in bed No apparent distress Oriented to: person, time, and place - Skin No breakdown No abnormalities - Eyes No abnormalities - ENMT No abnormalities - Neck No abnormalities - CVS RRR - Chest No abnormalities - Abd Distended - GI Positive fluid wave - No abnormalities - Ext Moderate edema in both lower extremities. - MSK 4+/5 weakness in both lower extremities. - Neuro No focal deficits - Psych No abnormalities ASSESSMENT: Pt. is a 88 yo Right-handed white female.On 12/19/2018 she was admitted to [facility] with diagnosis Liver Cirrhosis.Her impairment category is Medically Complex Conditions 17 - T erminal Care (17.6).Pre-morbidly, Pt. was independent/mod-I in Self-Care, Sphincter Control, Transfer s Control, Locomotion, Communication, and Social Cognition; and she had good Sphincter Control.Curren tly, she has deficits of Self-Care, Transfers Control, Locomotion, Endurance, Balance, and Safety Susan reness.Pt. is now referred to [facility] for acute in-patient rehabilitation i n order to maximize patient's functional independence in activities of daily living, strength, ROM, a nd mobility.- Rehab Goal Patient has realistic goal of being discharged at assistance level 6-Keily to reside at Home with Fam fanny/Relatives. MDM/PLAN: - Physical Therapy Gait dysfunction - to improve, our physical therapists will perform initial evaluation of pt's statu s upon admission and devise an individualized program for Gait Training, and Wheel Chair mobility Inability to transfer - to improve, our physical therapists will perform initial evaluation of pt's status upon admission and devise an individualized program for Bed mobility Need for home safety evaluation - to improve, our physical therapists will perform initial evaluatio n of pt's status upon admission and devise an individualized program for Home Evaluation Need in caregiver upon discharge - to improve, our physical therapists will perform initial evaluati on of pt's status upon admission and devise an individualized program for Caregiver Training New precaution - to improve, our physical therapists will perform initial evaluation of pt's status upon admission and devise an individualized program for Patient precaution education Poor balance - to improve, our physical therapists will perform initial evaluation of pt's status up on admission and devise an individualized program for Balance Training Poor endurance - to improve, our physical therapists will perform initial evaluation of pt's status upon admission and devise an individualized program for Endurance Training Weakness - to improve, our physical therapists will perform initial evaluation of pt's status upon a dmission and devise an individualized program for Aquatic Therapy, Neuromuscular Reeducation, and Str engthening Achieving independence - to improve, our physical therapists will perform initial evaluation of pt's status upon admission and devise an individualized program for Community Reintegration Activities - Occupational Therapy ADL deficits - to improve, our occupation therapists will perform initial evaluation of pt's status upon admission and devise an individualized program for Bathing, Bed mobility, Community Reintegratio n, Cooking, Dressing, Eating, Fine Motor Skills, Grooming, Homemaking, Kitchen Mobility, Laundry, Pat ient Education, Safety Awareness, Splinting - Positioning, Transfers(Toilet, Tub, Shower), and Wheel Chair Management 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 soft ground - Diet - Liquid Texture Continue Regular - Tube Feed Continue N/A - Diet - Solid Texture Continue Regular - Shower allowing shower FUNCTIONAL STATUS: UPDATED AT WEEKLY TEAM CONFERENCE - Bladder Same accident frequency: 7-Ind - No accidents in the past 7 days - Bowel Same accident frequency: 7-Ind - No accidents in the past 7 days - Walking Same score based on distance walked: 3(>=150ft) - Wheelchair Same score based on distance traveled: 0(N/A) FUNCTIONAL STATUS: - Self-Care A. Eating sup B. Grooming sup C. Bathing [place] D. Dressing - [place] E. Dressing - Lower modA F. Toileting modA - Sphincter Control G: Bladder control Ind H: Bowel control Ind - Transfers Control I. Bed/Chair/Wheelchair [place] J. Toilet [place] K. Tub/Shower ADNO - Locomotion L. Walk/Wheelchair (C) [place] L. Walk/Wheelchair (W) [place] M. Stairs ADNO - Communication N. Comprehension (B) Ind O. Expression (B) Ind - Social Cognition P. Social Interaction Ind Q. Problem Solving Ind R. Memory Ind - Endurance Fair - Balance Fair - Safety Awareness Fair CURRENT FUNC. DEFICITS: Self-Care, Transfers Control, Locomotion, Endurance, Balance, and Safety Awareness SIGNATURE PANEL: (CDT)
[2019-01-09] MEDS: DOCUSATE NA 100 MG CAP PO SCH (20:09)
[2019-01-09] MEDS: PANTOPRAZOLE 40MG TABLET PO SCH (20:09)
--- NOTE | 2019-01-10 01:13 | FAST ---
SHIFT START DATE/TIME: 01/09/2019 19:00 (CDT) SHIFT END DATE/TIME: 01/10/2019 07:00 (CDT) NAME EDGARD DÍAZ DATE OF : 1930 DATE OF ADMISSION: 12/29/2018 15:49 (CDT) PHONE: AGE: 88 N# [id number] GENDER: Female ENCOUNTER PHYSICIAN: Dr. Valeriano Flannery M.D. 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 EATING: Activity did not occur on this shift EATING - SCORE: 0-UNK GROOMING: Activity did not occur on this shift GROOMING - SCORE: 0-UNK BATHING: Activity did not occur on this shift BATHING - SCORE: 0-UNK DRESSING - UPPER BODY: Patient is not dressing in public clothing ARTICLES SCORE Total number of steps: 0 DRESSING - UPPER BODY - SCORE: 0-UNK DRESSING - LOWER BODY: Patient is not dressing in public clothing ARTICLES SCORE Total number of steps: 0 DRESSING - LOWER BODY - SCORE: 0-UNK TOILETING: TOILETING - STEP 1: Does the patient require the assistance of a person or device, or need extra time with toileting? Yes . TOILETING - STEP 2: Does the patient require the assistance of a helper? Yes. TOILETING - STEP 3: How much assistance does the patient require from the helper? Hands-on assistance from the helper TOILETING - STEP 4: Of the 3 tasks: 1) Adjusting clothing prior to use, 2) Cleansing of perineal area, 3) Adjusting clot sabine after use; How many tasks does the patient perform WITHOUT assistance of the helper? Two tasks TOILETING - SCORE: 3-MOD BLADDER MANAGEMENT: BLADDER MANAGEMENT - STEP 1: Does the patient control the bladder completely and intentionally without equipment or devices or med ications, and is always continent? No. BLADDER MANAGEMENT - STEP 2: Does the patient require the assistance of a helper? Yes. BLADDER MANAGEMENT - STEP 3: How much assistance does the patient require from the helper? Patient requires contact assistance fro m the helper BLADDER MANAGEMENT - STEP 4: How much contact assistance does the patient require from the helper? Patient requires moderate stevie tance, and performs 50% to 75% of bladder management tasks - [place] positions AND holds urinal or bed [place] BLADDER MANAGEMENT - SCORE: 3-MOD BOWEL MANAGEMENT: BOWEL MANAGEMENT - STEP 1: Does the patient control bowels completely and intentionally without equipment devices or medications AND is always continent? No. BOWEL MANAGEMENT - STEP 2: Does the patient require the assistance of a helper? Yes. BOWEL MANAGEMENT - STEP 3: How much assistance does the patient require from the helper? Patient requires moderate assistance - performs 50% to 74% of bowel management tasks BOWEL MANAGEMENT - SCORE: 3-MOD TRANSFERS: BED, CHAIR, WHEELCHAIR: TRANSFERS: BED, CHAIR, WHEELCHAIR - STEP 1: Does the patient require assistance of a person or device, or need extra time with bed, chair, or whe elchair transfers? Yes. TRANSFERS: BED, CHAIR, WHEELCHAIR - STEP 2: Does the patient require the assistance of a helper? Yes. TRANSFERS: BED, CHAIR, WHEELCHAIR - STEP 3: How much assistance does the patient require from the helper? Steadying/guiding assistance TRANSFERS: BED, CHAIR, WHEELCHAIR - SCORE: 4-MIN TRANSFERS: TOILET: TRANSFERS: TOILET - STEP 1: Does the patient require the assistance of a person or device, or need extra time with toilet transfe rs? Yes. TRANSFERS: TOILET - STEP 2: Does the patient require the assistance of a helper? Yes. TRANSFERS: TOILET - STEP 3: How much assistance does the patient require from the helper? Patient performs half or more of the tr ansferring tasks TRANSFERS: TOILET - STEP 4: Does the patient need only incidental help such as contact guard or steadying during toilet transfer? Yes. TRANSFERS: TOILET - SCORE: 4-MIN TRANSFERS: SHOWER: Activity did not occur on this shift TRANSFERS: SHOWER - SCORE: 0-UNK TRANSFERS: TUB: Activity did not occur on this shift TRANSFERS: TUB - SCORE: 0-UNK LOCOMOTION: WALK: Activity did not occur on this shift LOCOMOTION: WALK - SCORE: 0-UNK LOCOMOTION: WHEELCHAIR: Activity did not occur on this shift LOCOMOTION: WHEELCHAIR - SCORE: 0-UNK COMPREHENSION: COMPREHENSION: TYPE: Both COMPREHENSION - STEP 1: Does the patient require help from a person or device, or need extra time to understand complex and a bstract ideas (such as current events, finances, discharge planning, medical issues, relationships, e tc)? No. COMPREHENSION - STEP 2: Does the patient need extra time, require an assistive device (such as glasses for visual comprehensi on or a hearing aid for auditory comprehension) or does s/he have mild difficulty understanding compl ex and abstract information? Yes. COMPREHENSION - SCORE: 6-JUAN FRANCISCO EXPRESSION EXPRESSION: TYPE: Both EXPRESSION - STEP 1: Does the patient require help from a person or device, or need extra time expressing complex and abst ract ideas (such as current events, finances, discharge planning, medical issues, relationships, etc) ? No. EXPRESSION - STEP 2: Does the patient need extra time, require an assistive device (such as augmentive communication syste m or a communication board), OR does s/he have mild difficulty expressing complex and abstract ideas (including mild dysarthria or mild word-find problems)? Yes. EXPRESSION - SCORE: 6-JUAN FRANCISCO SOCIAL INTERACTION: SOCIAL INTERACTION - STEP 1: Does the patient require a helper to interact with others in social and therapeutic situations? No. SOCIAL INTERACTION - STEP 2: Does the patient need extra time in social situations, OR does s/he interact with staff, other patien ts, and family members ONLY in structured environments, OR does s/he require medication for social in teraction? No. SOCIAL INTERACTION - SCORE: 7-IND PROBLEM SOLVING: PROBLEM SOLVING - STEP 1: Does the patient need help from a person or device, or need extra time to solve complex problems such as managing a checking account or confronting interpersonal problems? No. PROBLEM SOLVING - STEP 2: Does the patient require extra time to make decisions or solve problems, OR does s/he have slight dif ficulty reading, initiating, or self-correcting in unfamiliar situations? Yes, patient needs extra ti me. PROBLEM SOLVING - SCORE: 6-JUAN FRANCISCO MEMORY: MEMORY - STEP 1: Does the patient need help from a person or device, or need extra time to remember frequently encount ered people, daily routines, and executing requests? No. MEMORY - STEP 2: Does the patient have slight difficulty recognizing frequently encountered people, daily routines, or executing requests without the need for repetition or using self-initiated or environmental cues to remember? No. MEMORY - SCORE: 7-IND SIGNATURE PANEL: The following modified sections: Eating - Score, Grooming - Score, Bathing - Score, Dressing - Upper Body - Score, Dressing - Lower Body - Score, Toileting - Score, Bladder Management - Score, Bowel Man agement - Score, Transfers: Bed, Chair, Wheelchair - Score, Transfers: Toilet - Score, Transfers: Mariangel wer - Score, Transfers: Tub - Score, Locomotion: Walk - Score, Locomotion: Wheelchair - Score, Compre hension - Score, Expression - Score, Social Interaction - Score, Problem Solving - Score, Memory - Sc ore were [electronically] signed by Nubia Chapin RN on WedJan 10 2019 01:12:36 [id number] ([facility] Time)
--- NOTE | 2019-01-10 04:04 | PN ---
Date of Progress Note: 01/09/2019 Chief Complaint: Hepatorenal syndrome, chronic kidney disease accelerated by prerenal azotemia and h epatorenal syndrome. The patient has liver cirrhosis and tense ascites. She was undergoing rehab tr eatment. She received paracentesis to control fluid overload and tense ascites. Review of Systems: The patient denies new complaints. Physical Examination: Vital Signs: Blood pressure is 90/63, heart rate 84, temperature is 96.8. Lungs: Clear to auscultation bilaterally. Heart: S1, S2. ABDOMEN: Soft, benign. Extremities: Edema present in both legs. Lab Work: Hemoglobin 8.5, WBC 4.1, platelet count is 108,000. Sodium 140, potassium 3.4, chloride 1 05, CO2 31, BUN 53, creatinine 1.18. Impression: 1.Acute on chronic kidney injury with prerenal azotemia, hepatorenal syndrome, history of borderline hypotension. Continue midodrine for blood pressure support. The patient is on Lasix to control flu id balance. The patient will require paracentesis for tense ascites on weekly basis, and this may ne ed to be arranged outpatient when the patient is discharged from the hospital. 2.Anemia. Iron study showed satisfactory result. The patient may benefit from ALONDRA. 3.Deconditioning. Continue rehab. SANTO/GLYNN Voice ID: [id number] Report ID: [id number]
[2019-01-10 04:44] VITALS: BMI 20.9
[2019-01-10] MEDS: LACTULOSE 20 GM/30 ML UCUP PO SCH ×2 (08:12→20:40)
[2019-01-10] MEDS: MUPIROCIN 2% OINT 22GM TUBE TOP SCH ×2 (08:13→20:42)
[2019-01-10] MEDS: PROMOD 30 ML DOSE PO SCH ×2 (08:13→20:41)
[2019-01-10] MEDS: FE SULF/FA/VIT B COMP & C TAB PO SCH (08:14)
[2019-01-10] MEDS: MIDODRINE HCL 5 MG TABLET PO SCH ×3 (08:14→20:43)
[2019-01-10] MEDS: FERROUS SULFATE 325 MG TAB PO SCH (08:14)
[2019-01-10] MEDS: MAGNESIUM OXIDE 400 MG TAB PO SCH ×2 (08:14→20:41)
[2019-01-10] MEDS: SODIUM CHLORIDE 0.9% 10ML INJ IV SCH ×2 (08:15→20:42)
[2019-01-10] MEDS: JUVEN PACKET PO SCH ×2 (08:15→20:41)
[2019-01-10] MEDS: GABAPENTIN 100 MG CAP PO SCH ×3 (08:15→20:41)
[2019-01-10] MEDS: ENSURE ENLIVE 237 ML CAN PO SCH ×2 (08:16→20:00)
--- NOTE | 2019-01-10 10:09 | FAST ---
SHIFT START DATE/TIME: 01/10/2019 07:00 (CDT) SHIFT END DATE/TIME: 01/10/2019 19:00 (CDT) NAME EDGARD DÍAZ DATE OF : 1930 DATE OF ADMISSION: 12/29/2018 15:49 (CDT) PHONE: AGE: 88 N# [id number] GENDER: Female ENCOUNTER PHYSICIAN: Dr. Valeriano Flannery M.D. 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 EATING: EATING - STEP 1: Does the patient require the assistance of a person or device, or need extra time when eating? Yes. EATING - STEP 2: Does the patient require the assistance of a helper? Yes. EATING - STEP 3: Does the patient perform half or more of the eating tasks? Yes. EATING - STEP 4: Does the patient need only supervision, cuing, coaxing OR help to apply an orthosis OR help to cut fo od, open containers, pour liquids, or butter bread? Yes. EATING - SCORE: 5-SUP GROOMING: Comb/brush hair Oral care GROOMING - STEP 1: Does the patient require the assistance of a person or device, or need extra time when grooming? Yes. GROOMING - STEP 2: Does the patient require the assistance of a helper? No. The patient only requires an assistive devic e, OR takes more than reasonable time to groom, OR there is a concern for safety as the patient groom s GROOMING - SCORE: 6-JUAN FRANCISCO BATHING: Activity did not occur on this shift BATHING - SCORE: 0-UNK DRESSING - UPPER BODY: Activity did not occur on this shift ARTICLES SCORE Total number of steps: 0 DRESSING - UPPER BODY - SCORE: 0-UNK DRESSING - LOWER BODY: Activity did not occur on this shift ARTICLES SCORE Total number of steps: 0 DRESSING - LOWER BODY - SCORE: 0-UNK TOILETING: TOILETING - STEP 1: Does the patient require the assistance of a person or device, or need extra time with toileting? Yes . TOILETING - STEP 2: Does the patient require the assistance of a helper? Yes. TOILETING - STEP 3: How much assistance does the patient require from the helper? Only supervision TOILETING - SCORE: 5-SUP BLADDER MANAGEMENT: BLADDER MANAGEMENT - STEP 1: Does the patient control the bladder completely and intentionally without equipment or devices or med ications, and is always continent? No. BLADDER MANAGEMENT - STEP 2: Does the patient require the assistance of a helper? No, patient requires and independently uses an a ssistive device, such as a urinal, bedpan, bedside commode, catheter, absorbent pad, or collecting de vice BLADDER MANAGEMENT - SCORE: 6-JUAN FRANCISCO BOWEL MANAGEMENT: BOWEL MANAGEMENT - STEP 1: Does the patient control bowels completely and intentionally without equipment devices or medications AND is always continent? No. BOWEL MANAGEMENT - STEP 2: Does the patient require the assistance of a helper? No, patient requires medication for control such as stool softeners, suppositories, laxatives, enemas, or OTC medications BOWEL MANAGEMENT - SCORE: 6-JUAN FRANCISCO TRANSFERS: BED, CHAIR, WHEELCHAIR: TRANSFERS: BED, CHAIR, WHEELCHAIR - STEP 1: Does the patient require assistance of a person or device, or need extra time with bed, chair, or whe elchair transfers? Yes. TRANSFERS: BED, CHAIR, WHEELCHAIR - STEP 2: Does the patient require the assistance of a helper? Yes. TRANSFERS: BED, CHAIR, WHEELCHAIR - STEP 3: How much assistance does the patient require from the helper? Steadying/guiding assistance TRANSFERS: BED, CHAIR, WHEELCHAIR - SCORE: 4-MIN TRANSFERS: TOILET: TRANSFERS: TOILET - STEP 1: Does the patient require the assistance of a person or device, or need extra time with toilet transfe rs? Yes. TRANSFERS: TOILET - STEP 2: Does the patient require the assistance of a helper? Yes. TRANSFERS: TOILET - STEP 3: How much assistance does the patient require from the helper? Patient performs half or more of the tr ansferring tasks TRANSFERS: TOILET - STEP 4: Does the patient need only incidental help such as contact guard or steadying during toilet transfer? Yes. TRANSFERS: TOILET - SCORE: 4-MIN TRANSFERS: SHOWER: Activity did not occur on this shift TRANSFERS: SHOWER - SCORE: 0-UNK TRANSFERS: TUB: Activity did not occur on this shift TRANSFERS: TUB - SCORE: 0-UNK LOCOMOTION: WALK: Activity did not occur on this shift LOCOMOTION: WALK - SCORE: 0-UNK LOCOMOTION: WHEELCHAIR: Activity did not occur on this shift LOCOMOTION: WHEELCHAIR - SCORE: 0-UNK COMPREHENSION: COMPREHENSION: TYPE: Both COMPREHENSION - STEP 1: Does the patient require help from a person or device, or need extra time to understand complex and a bstract ideas (such as current events, finances, discharge planning, medical issues, relationships, e tc)? No. COMPREHENSION - STEP 2: Does the patient need extra time, require an assistive device (such as glasses for visual comprehensi on or a hearing aid for auditory comprehension) or does s/he have mild difficulty understanding compl ex and abstract information? Yes. COMPREHENSION - SCORE: 6-JUAN FRANCISCO EXPRESSION EXPRESSION: TYPE: Both EXPRESSION - STEP 1: Does the patient require help from a person or device, or need extra time expressing complex and abst ract ideas (such as current events, finances, discharge planning, medical issues, relationships, etc) ? No. EXPRESSION - STEP 2: Does the patient need extra time, require an assistive device (such as augmentive communication syste m or a communication board), OR does s/he have mild difficulty expressing complex and abstract ideas (including mild dysarthria or mild word-find problems)? Yes. EXPRESSION - SCORE: 6-JUAN FRANCISCO SOCIAL INTERACTION: SOCIAL INTERACTION - STEP 1: Does the patient require a helper to interact with others in social and therapeutic situations? No. SOCIAL INTERACTION - STEP 2: Does the patient need extra time in social situations, OR does s/he interact with staff, other patien ts, and family members ONLY in structured environments, OR does s/he require medication for social in teraction? Yes, patient needs extra time SOCIAL INTERACTION - SCORE: 6-JUAN FRANCISCO PROBLEM SOLVING: PROBLEM SOLVING - STEP 1: Does the patient need help from a person or device, or need extra time to solve complex problems such as managing a checking account or confronting interpersonal problems? No. PROBLEM SOLVING - STEP 2: Does the patient require extra time to make decisions or solve problems, OR does s/he have slight dif ficulty reading, initiating, or self-correcting in unfamiliar situations? Yes, patient needs extra ti me. PROBLEM SOLVING - SCORE: 6-JUAN FRANCISCO MEMORY: MEMORY - STEP 1: Does the patient need help from a person or device, or need extra time to remember frequently encount ered people, daily routines, and executing requests? No. MEMORY - STEP 2: Does the patient have slight difficulty recognizing frequently encountered people, daily routines, or executing requests without the need for repetition or using self-initiated or environmental cues to remember? Yes. MEMORY - SCORE: 6-JUAN FRANCISCO SIGNATURE PANEL: The following modified sections: Eating - Score, Grooming - Score, Bathing - Score, Dressing - Upper Body - Score, Dressing - Lower Body - Score, Toileting - Score, Bladder Management - Score, Bowel Man agement - Score, Transfers: Bed, Chair, Wheelchair - Score, Transfers: Toilet - Score, Transfers: Mariangel wer - Score, Transfers: Tub - Score, Locomotion: Walk - Score, Locomotion: Wheelchair - Score, Compre hension - Score, Expression - Score, Social Interaction - Score, Problem Solving - Score, Memory - Sc ore were [electronically] signed by Abdon William on WedJan 10 2019 10:08:29 GMT-0500 (Central Daylight Time)
[2019-01-10] MEDS: SODIUM CHLORIDE 0.9% 10ML INJ IV PRN ×2 (13:56→17:19)
[2019-01-10] MEDS: ONDANSETRON 4 MG/2 ML VIAL IV PRN ×2 (13:56→17:18)
[2019-01-10] MEDS ORDERED: FORMULATION-R RECTAL 30GM PR PRN (14:16)
--- NOTE | 2019-01-10 15:00 | FAST ---
ENCOUNTER DATE AND TIME: 01/10/2019 08:00 (CDT) NAME EDGARD DÍAZ DATE OF : 1930 DATE OF ADMISSION: 12/29/2018 15:49 (CDT) PHONE: AGE: 88 N# [id number] GENDER: Female ENCOUNTER PHYSICIAN: Dr. Valeriano Flannery M.D. 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 EATING: Activity did not occur on this shift EATING - SCORE: 0-UNK GROOMING: Activity did not occur on this shift GROOMING - SCORE: 0-UNK BATHING: Activity did not occur on this shift BATHING - SCORE: 0-UNK DRESSING - UPPER BODY: Activity did not occur on this shift Patient is not dressing in public clothing ARTICLES SCORE Total number of steps: 0 DRESSING - UPPER BODY - SCORE: 0-UNK DRESSING - LOWER BODY: Activity did not occur on this shift Patient is not dressing in public clothing ARTICLES SCORE Total number of steps: 0 DRESSING - LOWER BODY - SCORE: 0-UNK TOILETING: Activity did not occur on this shift TOILETING - SCORE: 0-UNK BLADDER MANAGEMENT: Activity did not occur on this shift BLADDER MANAGEMENT - SCORE: 7-IND BOWEL MANAGEMENT: Activity did not occur on this shift BOWEL MANAGEMENT - SCORE: 7-IND TRANSFERS: BED, CHAIR, WHEELCHAIR: TRANSFERS: BED, CHAIR, WHEELCHAIR - STEP 1: Does the patient require assistance of a person or device, or need extra time with bed, chair, or whe elchair transfers? Yes. TRANSFERS: BED, CHAIR, WHEELCHAIR - STEP 2: Does the patient require the assistance of a helper? No. Patient only requires an assistive device fo r bed, chair, wheelchair transfers such as a sliding board, grab bar, or brace, OR s/he takes more th an reasonable time, OR there is a safety concern when s/he performs the transfers TRANSFERS: BED, CHAIR, WHEELCHAIR - SCORE: 6-JUAN FRANCISCO TRANSFERS: TOILET: Activity did not occur on this shift TRANSFERS: TOILET - SCORE: 0-UNK TRANSFERS: SHOWER: Activity did not occur on this shift TRANSFERS: SHOWER - SCORE: 0-UNK TRANSFERS: TUB: Activity did not occur on this shift TRANSFERS: TUB - SCORE: 0-UNK LOCOMOTION: WALK: LOCOMOTION: WALK - STEP 1: Does the patient need help from a person or device, or need extra time to walk 150 feet? No. LOCOMOTION: WALK - STEP 2: Does the patient need an assistive device (such as an orthosis, prosthesis, crutches, or walker) to g o 150 feet, OR does s/he take more than reasonable time, OR is there a concern for safety? Yes, the p atient needs an assistive device LOCOMOTION: WALK - SCORE: 6-JUAN FRANCISCO LOCOMOTION: WHEELCHAIR: LOCOMOTION: WHEELCHAIR - STEP 1: Does the patient need help to go 150 feet in a wheelchair? No. LOCOMOTION: WHEELCHAIR - SCORE: 6-JUAN FRANCISCO LOCOMOTION: STAIRS: LOCOMOTION: STAIRS - STEP 1: Does the patient need help to go up and down 12 to 14 stairs? Yes. LOCOMOTION: STAIRS - STEP 2: How much assistance does the patient need from the helper to go a minimum of 12 to 14 stairs? Only red pervision, cuing, or coaxing LOCOMOTION: STAIRS - SCORE: 5-SUP COMPREHENSION: COMPREHENSION - SCORE: 0-UNK EXPRESSION EXPRESSION - SCORE: 0-UNK SOCIAL INTERACTION: SOCIAL INTERACTION - SCORE: 0-UNK PROBLEM SOLVING: PROBLEM SOLVING - SCORE: 0-UNK MEMORY: MEMORY - SCORE: 0-UNK SIGNATURE PANEL: The following modified sections: Transfers: Bed, Chair, Wheelchair - Score, Transfers: Toilet - Score , Locomotion: Walk - Score, Locomotion: Wheelchair - Score, Locomotion: Stairs - Score were [electron jamil] signed by Joe Lemus PTA on WedJan 10 2019 14:58:30 GMT-0500 (Central Daylight Time)
[2019-01-10] MEDS ORDERED: ALBUMIN HUMAN 25% 200 ML IV ONE (16:00)
--- NOTE | 2019-01-10 17:57 | R.PN ---
ENCOUNTER DATE AND TIME: 01/10/2019 17:54 (CDT) NAME EDGARD DÍAZ DATE OF : 1930 DATE OF ADMISSION: 12/29/2018 15:49 (CDT) Liver CirrhosisCHIEF COMPLAINT: Debility and liver cirrhosis SUBJECTIVE: Pt denied any depression. Pt denied any Shortness of Breath. Doppler of lower extremities reveal no DVTs or significant PAD. Ambulated 350' with modified independence using a rolling walker. Up and down 5 steps with standby as sistance. Propelled wheelchair 250' with modified independence.. Performed ADLs with standby assistance. VITAL SIGNS Temperature: 98.7 F SBP/DBP:112/63 Pulse: 88 Resp:16 MEDICATION ALLERGIES: Morphine Sulfate ENVIRONMENTAL ALLERGIES: None Known - Substance Allergies None Known - Other Allergies ADHESIVE TAPE NURSING: - Shower allowing shower ACTIVITIES OOB only with supervision THERAPIES: - Occupational Therapy Evaluate and Treat. - Physical Therapy Evaluate and Treat. PHYSICAL EXAM - Gen Alert and awake Lying in bed No apparent distress Oriented to: person, time, and place - Skin No breakdown No abnormalities - Eyes No abnormalities - ENMT No abnormalities - Neck No abnormalities - CVS RRR - Chest No abnormalities - Abd Distended - GI Positive fluid wave - No abnormalities - Ext Moderate edema in both lower extremities. - MSK 4+/5 weakness in both lower extremities. - Neuro No focal deficits - Psych No abnormalities ASSESSMENT: Pt. is a 88 yo Right-handed white female.On 12/19/2018 she was admitted to [facility] with diagnosis Liver Cirrhosis.Her impairment category is Medically Complex Conditions 17 - T [place] Care (17.6).Pre-morbidly, Pt. was independent/mod-I in Self-Care, Sphincter Control, Transfer s Control, Locomotion, Communication, and Social Cognition; and she had good Sphincter Control.Curren tly, she has deficits of Self-Care, Transfers Control, Locomotion, Endurance, Balance, and Safety Susan reness.Pt. is now referred to [facility] for acute in-patient rehabilitation i n order to maximize patient's functional independence in activities of daily living, strength, ROM, a nd mobility.- Rehab Goal Patient has realistic goal of being discharged at assistance level 6-Keily to reside at Home with Fam fanny/Relatives. MDM/PLAN: - Physical Therapy Gait dysfunction - to improve, our physical therapists will perform initial evaluation of pt's statu s upon admission and devise an individualized program for Gait Training, and Wheel Chair mobility Inability to transfer - to improve, our physical therapists will perform initial evaluation of pt's status upon admission and devise an individualized program for Bed mobility Need for home safety evaluation - to improve, our physical therapists will perform initial evaluatio n of pt's status upon admission and devise an individualized program for Home Evaluation Need in caregiver upon discharge - to improve, our physical therapists will perform initial evaluati on of pt's status upon admission and devise an individualized program for Caregiver Training New precaution - to improve, our physical therapists will perform initial evaluation of pt's status upon admission and devise an individualized program for Patient precaution education Poor balance - to improve, our physical therapists will perform initial evaluation of pt's status up on admission and devise an individualized program for Balance Training Poor endurance - to improve, our physical therapists will perform initial evaluation of pt's status upon admission and devise an individualized program for Endurance Training Weakness - to improve, our physical therapists will perform initial evaluation of pt's status upon a dmission and devise an individualized program for Aquatic Therapy, Neuromuscular Reeducation, and Str engthening Achieving independence - to improve, our physical therapists will perform initial evaluation of pt's status upon admission and devise an individualized program for Community Reintegration Activities - Occupational Therapy ADL deficits - to improve, our occupation therapists will perform initial evaluation of pt's status upon admission and devise an individualized program for Bathing, Bed mobility, Community Reintegratio n, Cooking, Dressing, Eating, Fine Motor Skills, Grooming, Homemaking, Kitchen Mobility, Laundry, Pat ient Education, Safety Awareness, Splinting - Positioning, Transfers(Toilet, Tub, Shower), and Wheel Chair Management Need for adult day care worker - to improve, our occupation therapists will perform initial evaluation of pt's status upon admission and devise an individualized program for Caregiver Training Weakness - to improve, our occupation therapists will perform initial evaluation of pt's status upon admission and devise an individualized program for Aquatic Therapy, Balance, Endurance, UE ROM, and UE strengthening - Diet Type Continue [facility] soft ground - Diet - Liquid Texture Continue Regular - Tube Feed Continue N/A - Diet - Solid Texture Continue Regular - Shower allowing shower FUNCTIONAL STATUS: UPDATED AT WEEKLY TEAM CONFERENCE - Bladder Same accident frequency: 7-Ind - No accidents in the past 7 days - Bowel Same accident frequency: 7-Ind - No accidents in the past 7 days - Walking Same score based on distance walked: 3(>=150ft) - Wheelchair Same score based on distance traveled: 0(N/A) FUNCTIONAL STATUS: - Self-Care A. Eating sup B. Grooming sup C. Bathing [place] D. Dressing - [place] E. Dressing - Lower modA F. Toileting modA - Sphincter Control G: Bladder control Ind H: Bowel control Ind - Transfers Control I. Bed/Chair/Wheelchair [place] J. Toilet [place] K. Tub/Shower ADNO - Locomotion L. Walk/Wheelchair (C) [place] L. Walk/Wheelchair (W) [place] M. Stairs ADNO - Communication N. Comprehension (B) Ind O. Expression (B) Ind - Social Cognition P. Social Interaction Ind Q. Problem Solving Ind R. Memory Ind - Endurance Fair - Balance Fair - Safety Awareness Fair CURRENT FUNC. DEFICITS: Self-Care, Transfers Control, Locomotion, Endurance, Balance, and Safety Awareness SIGNATURE PANEL: (CDT)
[2019-01-10] MEDS: DOCUSATE NA 100 MG CAP PO SCH (20:41)
[2019-01-10] MEDS: PANTOPRAZOLE 40MG TABLET PO SCH (20:42)
--- NOTE | 2019-01-10 21:10 | PN ---
Date of Progress Note: 01/10/2019 Subjective: The patient seen and examined. Chart reviewed and case discussed with RN. The patient again complaining of ascites. The patient is doing well with physical therapy, ambulating around the hallway. Medications: List reviewed. Code Status: Full. Physical Examination: Vital Signs: Temperature 96.8, heart rate 83, blood pressure 98/58, respirations 18, and O2 96% on r oom air. General: Awake, alert, oriented x3. Elderly female, frail. CV: S1 and S2. Respiratory: Diminished breath sounds at the bases. No wheezing or stridor. Gastrointestinal: Abdomen is distended. Moderate ascites. Positive fluid wave. Bowel sounds posit dominga. Extremities: No clubbing or cyanosis. The patient has peripheral edema. Neurologic: Nonfocal. Laboratory Data: Pending. Assessment And Plan: An 88-year-old female with: 1.Hepatorenal syndrome. Continue to monitor creatinine, improving. Dr. Sequeira on board. 2.Acute hypotension secondary to diuretics. We will continue midodrine for blood pressure support. 3.Cirrhosis secondary to hepatitis C, status post paracentesis and albumin infusions. The patient w ill likely need another paracentesis in a.m. prior to her discharge. 4.Severe protein-calorie malnutrition. We will continue with protein supplementation. 5.Generalized weakness, improved. We will continue with physical therapy. 6.Anemia of chronic disease. We will continue to monitor H and H and transfuse as needed. 7.Acute metabolic encephalopathy, resolved, likely due to abnormal kidney function and hepatic encep halopathy and/or hypotension. Plan: Paracentesis in a.m. The patient declined hospice services at this time. Family seems to be in denial regarding her overall poor prognosis. She needs to follow up with Dr. Murguia as an outpatie nt for possible TIPS procedure. SA/MODL Voice ID: [id number] Report ID: [id number]
--- NOTE | 2019-01-11 03:01 | FAST ---
SHIFT START DATE/TIME: 01/10/2019 19:00 (CDT) SHIFT END DATE/TIME: 01/11/2019 07:00 (CDT) NAME EDGARD DÍAZ DATE OF : 1930 DATE OF ADMISSION: 12/29/2018 15:49 (CDT) PHONE: AGE: 88 N# [id number] GENDER: Female ENCOUNTER PHYSICIAN: Dr. Valeriano Flannery M.D. 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 EATING: Activity did not occur on this shift EATING - SCORE: 0-UNK GROOMING: Activity did not occur on this shift GROOMING - SCORE: 0-UNK BATHING: Activity did not occur on this shift BATHING - SCORE: 0-UNK DRESSING - UPPER BODY: Patient is not dressing in public clothing ARTICLES SCORE Total number of steps: 0 DRESSING - UPPER BODY - SCORE: 0-UNK DRESSING - LOWER BODY: Patient is not dressing in public clothing ARTICLES SCORE Total number of steps: 0 DRESSING - LOWER BODY - SCORE: 0-UNK TOILETING: TOILETING - STEP 1: Does the patient require the assistance of a person or device, or need extra time with toileting? Yes . TOILETING - STEP 2: Does the patient require the assistance of a helper? Yes. TOILETING - STEP 3: How much assistance does the patient require from the helper? Hands-on assistance from the helper TOILETING - STEP 4: Of the 3 tasks: 1) Adjusting clothing prior to use, 2) Cleansing of perineal area, 3) Adjusting clot sabine after use; How many tasks does the patient perform WITHOUT assistance of the helper? Three tasks with steadying assistance from the helper TOILETING - SCORE: 4-MIN BLADDER MANAGEMENT: BLADDER MANAGEMENT - STEP 1: Does the patient control the bladder completely and intentionally without equipment or devices or med ications, and is always continent? No. BLADDER MANAGEMENT - STEP 2: Does the patient require the assistance of a helper? Yes. BLADDER MANAGEMENT - STEP 3: How much assistance does the patient require from the helper? Patient requires contact assistance fro m the helper BLADDER MANAGEMENT - STEP 4: How much contact assistance does the patient require from the helper? Patient requires moderate stevie tance, and performs 50% to 75% of bladder management tasks - [place] positions AND holds urinal or bed [place] BLADDER MANAGEMENT - SCORE: 3-MOD BOWEL MANAGEMENT: Activity did not occur on this shift BOWEL MANAGEMENT - SCORE: 7-IND TRANSFERS: BED, CHAIR, WHEELCHAIR: TRANSFERS: BED, CHAIR, WHEELCHAIR - STEP 1: Does the patient require assistance of a person or device, or need extra time with bed, chair, or whe elchair transfers? Yes. TRANSFERS: BED, CHAIR, WHEELCHAIR - STEP 2: Does the patient require the assistance of a helper? Yes. TRANSFERS: BED, CHAIR, WHEELCHAIR - STEP 3: How much assistance does the patient require from the helper? Steadying/guiding assistance TRANSFERS: BED, CHAIR, WHEELCHAIR - SCORE: 4-MIN TRANSFERS: TOILET: TRANSFERS: TOILET - STEP 1: Does the patient require the assistance of a person or device, or need extra time with toilet transfe rs? Yes. TRANSFERS: TOILET - STEP 2: Does the patient require the assistance of a helper? Yes. TRANSFERS: TOILET - STEP 3: How much assistance does the patient require from the helper? Patient performs half or more of the tr ansferring tasks TRANSFERS: TOILET - STEP 4: Does the patient need only incidental help such as contact guard or steadying during toilet transfer? Yes. TRANSFERS: TOILET - SCORE: 4-MIN TRANSFERS: SHOWER: Activity did not occur on this shift TRANSFERS: SHOWER - SCORE: 0-UNK TRANSFERS: TUB: Activity did not occur on this shift TRANSFERS: TUB - SCORE: 0-UNK LOCOMOTION: WALK: Activity did not occur on this shift LOCOMOTION: WALK - SCORE: 0-UNK LOCOMOTION: WHEELCHAIR: Activity did not occur on this shift LOCOMOTION: WHEELCHAIR - SCORE: 0-UNK COMPREHENSION: COMPREHENSION: TYPE: Both COMPREHENSION - STEP 1: Does the patient require help from a person or device, or need extra time to understand complex and a bstract ideas (such as current events, finances, discharge planning, medical issues, relationships, e tc)? No. COMPREHENSION - STEP 2: Does the patient need extra time, require an assistive device (such as glasses for visual comprehensi on or a hearing aid for auditory comprehension) or does s/he have mild difficulty understanding compl ex and abstract information? No. COMPREHENSION - SCORE: 7-IND EXPRESSION EXPRESSION: TYPE: Both EXPRESSION - STEP 1: Does the patient require help from a person or device, or need extra time expressing complex and abst ract ideas (such as current events, finances, discharge planning, medical issues, relationships, etc) ? No. EXPRESSION - STEP 2: Does the patient need extra time, require an assistive device (such as augmentive communication syste m or a communication board), OR does s/he have mild difficulty expressing complex and abstract ideas (including mild dysarthria or mild word-find problems)? No. EXPRESSION - SCORE: 7-IND SOCIAL INTERACTION: SOCIAL INTERACTION - STEP 1: Does the patient require a helper to interact with others in social and therapeutic situations? No. SOCIAL INTERACTION - STEP 2: Does the patient need extra time in social situations, OR does s/he interact with staff, other patien ts, and family members ONLY in structured environments, OR does s/he require medication for social in teraction? No. SOCIAL INTERACTION - SCORE: 7-IND PROBLEM SOLVING: PROBLEM SOLVING - STEP 1: Does the patient need help from a person or device, or need extra time to solve complex problems such as managing a checking account or confronting interpersonal problems? No. PROBLEM SOLVING - STEP 2: Does the patient require extra time to make decisions or solve problems, OR does s/he have slight dif ficulty reading, initiating, or self-correcting in unfamiliar situations? No. PROBLEM SOLVING - SCORE: 7-IND MEMORY: MEMORY - STEP 1: Does the patient need help from a person or device, or need extra time to remember frequently encount ered people, daily routines, and executing requests? No. MEMORY - STEP 2: Does the patient have slight difficulty recognizing frequently encountered people, daily routines, or executing requests without the need for repetition or using self-initiated or environmental cues to remember? No. MEMORY - SCORE: 7-IND SIGNATURE PANEL: The following modified sections: Eating - Score, Grooming - Score, Bathing - Score, Dressing - Upper Body - Score, Dressing - Lower Body - Score, Toileting - Score, Bladder Management - Score, Bowel Man agement - Score, Transfers: Bed, Chair, Wheelchair - Score, Transfers: Toilet - Score, Transfers: [place] wer - Score, Transfers: Tub - Score, Locomotion: Walk - Score, Locomotion: Wheelchair - Score, Compre hension - Score, Expression - Score, Social Interaction - Score, Problem Solving - Score, Memory - Sc ore were [electronically] signed by Nellie Griffin CNA on WedJan 11 2019 03:00:04 T-0500 ([facility] ylight Time)
[2019-01-11 04:57] LABS: Protime INR 1.33
[2019-01-11] MEDS: LACTULOSE 20 GM/30 ML UCUP PO SCH ×3 (08:00→20:20)
[2019-01-11] MEDS: FE SULF/FA/VIT B COMP & C TAB PO SCH ×2 (08:00→10:21)
[2019-01-11] MEDS: ENSURE ENLIVE 237 ML CAN PO SCH ×2 (08:00→20:21)
[2019-01-11] MEDS: MAGNESIUM OXIDE 400 MG TAB PO SCH ×3 (08:00→20:21)
[2019-01-11] MEDS: JUVEN PACKET PO SCH ×2 (08:00→20:00)
[2019-01-11] MEDS: SODIUM CHLORIDE 0.9% 10ML INJ IV SCH ×2 (08:00→20:22)
[2019-01-11] MEDS: FERROUS SULFATE 325 MG TAB PO SCH ×2 (08:00→10:22)
[2019-01-11] MEDS: PROMOD 30 ML DOSE PO SCH ×2 (08:00→20:20)
[2019-01-11] MEDS: MUPIROCIN 2% OINT 22GM TUBE TOP SCH ×2 (08:00→20:20)
[2019-01-11] MEDS: GABAPENTIN 100 MG CAP PO SCH ×4 (08:32→21:11)
[2019-01-11] MEDS ORDERED: ALBUMIN HUMAN 25% 200 ML IV ONE ×2 (09:00)
--- NOTE | 2019-01-11 10:06 | RAD REPORT ---
EXAM DESCRIPTION: US - Paracentesis Proc Guidance - 01/11/2019 9:13 am CLINICAL HISTORY: Ascites Ascites COMPARISON: Paracentesis Proc Guidance dated 01/04/2019 FINDINGS: Informed consent was obtained and time-out was performed. Patient's abdomen was prepped and draped in the usual sterile fashion. 1% lidocaine was used for loca l anesthetic purposes. A small skin incision was made in the right lower quadrant. A paracentesis catheter was guided into t he peroneal cavity under sonographic guidance. A large volume paracentesis was performed. The patient tolerated the procedure well. Patient was administered IV albumin per protocol during the procedure. IMPRESSION: Successful ultrasound-guided paracentesis.
[2019-01-11] MEDS: MIDODRINE HCL 5 MG TABLET PO SCH ×3 (10:20→21:12)
[2019-01-11] MEDS: FUROSEMIDE 20 MG TABLET PO SCH (12:00)
--- NOTE | 2019-01-11 14:12 | R.PN ---
ENCOUNTER DATE AND TIME: 01/11/2019 14:07 (CDT) NAME EDGARD DÍAZ DATE OF : 1930 DATE OF ADMISSION: 12/29/2018 15:49 (CDT) Liver CirrhosisCHIEF COMPLAINT: Debility and liver cirrhosis SUBJECTIVE: Pt denied any depression. Pt denied any Shortness of Breath. Doppler of lower extremities reveal no DVTs or significant PAD. Ambulated 400' with modified independence using a rolling walker. Up and down 15 steps with standby a ssistance. Propelled wheelchair 250' with modified independence.. Performed ADLs with standby assistance. Paracentesis done with removal of 11 L of straw colored fuel. VITAL SIGNS Temperature: 98.7 F SBP/DBP:98/51 Pulse: 77 Resp:16 MEDICATION ALLERGIES: Morphine Sulfate ENVIRONMENTAL ALLERGIES: None Known - Substance Allergies None Known - Other Allergies ADHESIVE TAPE NURSING: - Shower allowing shower ACTIVITIES OOB only with supervision THERAPIES: - Occupational Therapy Evaluate and Treat. - Physical Therapy Evaluate and Treat. PHYSICAL EXAM - Gen Alert and awake Lying in bed No apparent distress Oriented to: person, time, and place - Skin No breakdown No abnormalities - Eyes No abnormalities - ENMT No abnormalities - Neck No abnormalities - CVS RRR - Chest No abnormalities - Abd Distended - GI Positive fluid wave - No abnormalities - Ext Moderate edema in both lower extremities. - MSK 4+/5 weakness in both lower extremities. - Neuro No focal deficits - Psych No abnormalities ASSESSMENT: Pt. is a 88 yo Right-handed white female.On 12/19/2018 she was admitted to [facility] with diagnosis Liver Cirrhosis.Her impairment category is Medically Complex Conditions 17 - T [facility] Care (17.6).Pre-morbidly, Pt. was independent/mod-I in Self-Care, Sphincter Control, Transfer s Control, Locomotion, Communication, and Social Cognition; and she had good Sphincter Control.Curren tly, she has deficits of Self-Care, Transfers Control, Locomotion, Endurance, Balance, and Safety Susan reness.Pt. is now referred to [facility] for acute in-patient rehabilitation i n order to maximize patient's functional independence in activities of daily living, strength, ROM, a nd mobility.- Rehab Goal Patient has realistic goal of being discharged at assistance level 6-Keily to reside at Home with Fam fanny/Relatives. MDM/PLAN: - Physical Therapy Gait dysfunction - to improve, our physical therapists will perform initial evaluation of pt's statu s upon admission and devise an individualized program for Gait Training, and Wheel Chair mobility Inability to transfer - to improve, our physical therapists will perform initial evaluation of pt's status upon admission and devise an individualized program for Bed mobility Need for home safety evaluation - to improve, our physical therapists will perform initial evaluatio n of pt's status upon admission and devise an individualized program for Home Evaluation Need in caregiver upon discharge - to improve, our physical therapists will perform initial evaluati on of pt's status upon admission and devise an individualized program for Caregiver Training New precaution - to improve, our physical therapists will perform initial evaluation of pt's status upon admission and devise an individualized program for Patient precaution education Poor balance - to improve, our physical therapists will perform initial evaluation of pt's status up on admission and devise an individualized program for Balance Training Poor endurance - to improve, our physical therapists will perform initial evaluation of pt's status upon admission and devise an individualized program for Endurance Training Weakness - to improve, our physical therapists will perform initial evaluation of pt's status upon a dmission and devise an individualized program for Aquatic Therapy, Neuromuscular Reeducation, and Str engthening Achieving independence - to improve, our physical therapists will perform initial evaluation of pt's status upon admission and devise an individualized program for Community Reintegration Activities - Occupational Therapy ADL deficits - to improve, our occupation therapists will perform initial evaluation of pt's status upon admission and devise an individualized program for Bathing, Bed mobility, Community Reintegratio n, Cooking, Dressing, Eating, Fine Motor Skills, Grooming, Homemaking, Kitchen Mobility, Laundry, Pat ient Education, Safety Awareness, Splinting - Positioning, Transfers(Toilet, Tub, Shower), and Wheel Chair Management Need for child care leader - to improve, our occupation therapists will perform initial evaluation of pt's status upon admission and devise an individualized program for Caregiver Training Weakness - to improve, our occupation therapists will perform initial evaluation of pt's status upon admission and devise an individualized program for Aquatic Therapy, Balance, Endurance, UE ROM, and UE strengthening - Diet Type Continue [facility] soft ground - Diet - Liquid Texture Continue Regular - Tube Feed Continue N/A - Diet - Solid Texture Continue Regular - Shower allowing shower FUNCTIONAL STATUS: UPDATED AT WEEKLY TEAM CONFERENCE - Bladder Same accident frequency: 7-Ind - No accidents in the past 7 days - Bowel Same accident frequency: 7-Ind - No accidents in the past 7 days - Walking Same score based on distance walked: 3(>=150ft) - Wheelchair Same score based on distance traveled: 0(N/A) FUNCTIONAL STATUS: - Self-Care A. Eating sup B. Grooming sup C. Bathing [place] D. Dressing - [place] E. Dressing - Lower modA F. Toileting modA - Sphincter Control G: Bladder control Ind H: Bowel control Ind - Transfers Control I. Bed/Chair/Wheelchair [place] J. Toilet [place] K. Tub/Shower ADNO - Locomotion L. Walk/Wheelchair (C) [place] L. Walk/Wheelchair (W) [place] M. Stairs ADNO - Communication N. Comprehension (B) Ind O. Expression (B) Ind - Social Cognition P. Social Interaction Ind Q. Problem Solving Ind R. Memory Ind - Endurance Fair - Balance Fair - Safety Awareness Fair CURRENT FUNC. DEFICITS: Self-Care, Transfers Control, Locomotion, Endurance, Balance, and Safety Awareness SIGNATURE PANEL: (CDT)
[2019-01-11] MEDS: PANTOPRAZOLE 40MG TABLET PO SCH (20:23)
[2019-01-11] MEDS: DOCUSATE NA 100 MG CAP PO SCH (21:11)
--- NOTE | 2019-01-11 22:50 | PN ---
Date of Progress Note: 01/11/2019 Subjective: The patient seen and examined. Chart reviewed and case discussed with RN. The patient went for paracentesis this morning with 8 L removed with subsequent albumin infusion. Medications: List reviewed. Physical Examination: Vital Signs: Temperature 98.2, heart rate 77, blood pressure 98/51, respirations 18, O2 94% on room air. GENERAL: Awake, alert, oriented x3 elderly female, not in any acute distress. Frail. CV: S1, S2. Peripheral pulses present. Respiratory: Diminished breath sounds at the bases, otherwise moving air well. Gastrointestinal: Abdomen is soft. Minimal distention. Minimal ascites. No guarding or rebound. Positive bowel sounds. Extremities: No clubbing, cyanosis, or edema. Neurologic: Nonfocal. Assessment: An 88-year-old female with: 1.Hepatorenal syndrome, improving. 2.Acute hypotension secondary to diuretics. Lasix had to be held today. 3.Cirrhosis secondary to hepatitis C, status post multiple paracentesis and albumin infusions. The patient went again for paracentesis today with 8 L removed. The patient unfortunately will need recu rrent paracentesis, not really a candidate for TIPS. 4.Severe protein-calorie malnutrition. 5.Generalized weakness, improving. Continue PT. 6.Anemia of chronic disease. Monitor H and H. 7.Acute metabolic encephalopathy, resolved. Plan: The patient will need to be set up with outpatient paracentesis through [facility]. She will n eed to follow up with Dr. Murguia for possible TIPS procedure. /GLYNN Voice ID: [id number] Report ID: [id number]
--- NOTE | 2019-01-12 03:06 | FAST ---
SHIFT START DATE/TIME: 01/11/2019 19:00 (CDT) SHIFT END DATE/TIME: 01/12/2019 07:00 (CDT) NAME EDGARD DÍAZ DATE OF : 1930 DATE OF ADMISSION: 12/29/2018 15:49 (CDT) PHONE: AGE: 88 N# [id number] GENDER: Female ENCOUNTER PHYSICIAN: Dr. Valeriano Flannery M.D. 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 EATING: Activity did not occur on this shift EATING - SCORE: 0-UNK GROOMING: Oral care Wash, rinse, and dry face Wash, rinse, and dry hands GROOMING - STEP 1: Does the patient require the assistance of a person or device, or need extra time when grooming? Yes. GROOMING - STEP 2: Does the patient require the assistance of a helper? Yes. GROOMING - STEP 3: How much assistance does the patient require from the helper? Only prior equipment preparation/set up from the helper GROOMING - SCORE: 5-SUP BATHING: Activity did not occur on this shift BATHING - SCORE: 0-UNK DRESSING - UPPER BODY: Patient is not dressing in public clothing ARTICLES SCORE Total number of steps: 0 DRESSING - UPPER BODY - SCORE: 0-UNK DRESSING - LOWER BODY: Patient is not dressing in public clothing ARTICLES SCORE Total number of steps: 0 DRESSING - LOWER BODY - SCORE: 0-UNK TOILETING: TOILETING - STEP 1: Does the patient require the assistance of a person or device, or need extra time with toileting? Yes . TOILETING - STEP 2: Does the patient require the assistance of a helper? Yes. TOILETING - STEP 3: How much assistance does the patient require from the helper? Hands-on assistance from the helper TOILETING - STEP 4: Of the 3 tasks: 1) Adjusting clothing prior to use, 2) Cleansing of perineal area, 3) Adjusting clot sabine after use; How many tasks does the patient perform WITHOUT assistance of the helper? Three tasks with steadying assistance from the helper TOILETING - SCORE: 4-MIN BLADDER MANAGEMENT: BLADDER MANAGEMENT - STEP 1: Does the patient control the bladder completely and intentionally without equipment or devices or med ications, and is always continent? No. BLADDER MANAGEMENT - STEP 2: Does the patient require the assistance of a helper? Yes. BLADDER MANAGEMENT - STEP 3: How much assistance does the patient require from the helper? Only set-up of equipment - such as plac ing it within reach of the patient or emptying a device - to maintain either satisfactory voiding pat tern or managing an external device, such as an absorbent pad, ileal device, or catheter BLADDER MANAGEMENT - SCORE: 5-SUP BOWEL MANAGEMENT: Activity did not occur on this shift BOWEL MANAGEMENT - SCORE: 7-IND TRANSFERS: BED, CHAIR, WHEELCHAIR: TRANSFERS: BED, CHAIR, WHEELCHAIR - STEP 1: Does the patient require assistance of a person or device, or need extra time with bed, chair, or whe elchair transfers? Yes. TRANSFERS: BED, CHAIR, WHEELCHAIR - STEP 2: Does the patient require the assistance of a helper? Yes. TRANSFERS: BED, CHAIR, WHEELCHAIR - STEP 3: How much assistance does the patient require from the helper? Steadying/guiding assistance TRANSFERS: BED, CHAIR, WHEELCHAIR - SCORE: 4-MIN TRANSFERS: TOILET: TRANSFERS: TOILET - STEP 1: Does the patient require the assistance of a person or device, or need extra time with toilet transfe rs? Yes. TRANSFERS: TOILET - STEP 2: Does the patient require the assistance of a helper? Yes. TRANSFERS: TOILET - STEP 3: How much assistance does the patient require from the helper? Patient performs half or more of the tr ansferring tasks TRANSFERS: TOILET - STEP 4: Does the patient need only incidental help such as contact guard or steadying during toilet transfer? Yes. TRANSFERS: TOILET - SCORE: 4-MIN TRANSFERS: SHOWER: Activity did not occur on this shift TRANSFERS: SHOWER - SCORE: 0-UNK TRANSFERS: TUB: Activity did not occur on this shift TRANSFERS: TUB - SCORE: 0-UNK LOCOMOTION: WALK: Activity did not occur on this shift LOCOMOTION: WALK - SCORE: 0-UNK LOCOMOTION: WHEELCHAIR: Activity did not occur on this shift LOCOMOTION: WHEELCHAIR - SCORE: 0-UNK COMPREHENSION: COMPREHENSION: TYPE: Both COMPREHENSION - STEP 1: Does the patient require help from a person or device, or need extra time to understand complex and a bstract ideas (such as current events, finances, discharge planning, medical issues, relationships, e tc)? No. COMPREHENSION - STEP 2: Does the patient need extra time, require an assistive device (such as glasses for visual comprehensi on or a hearing aid for auditory comprehension) or does s/he have mild difficulty understanding compl ex and abstract information? Yes. COMPREHENSION - SCORE: 6-JUAN FRANCISCO EXPRESSION EXPRESSION: TYPE: Both EXPRESSION - STEP 1: Does the patient require help from a person or device, or need extra time expressing complex and abst ract ideas (such as current events, finances, discharge planning, medical issues, relationships, etc) ? No. EXPRESSION - STEP 2: Does the patient need extra time, require an assistive device (such as augmentive communication syste m or a communication board), OR does s/he have mild difficulty expressing complex and abstract ideas (including mild dysarthria or mild word-find problems)? Yes. EXPRESSION - SCORE: 6-JUAN FRANCISCO SOCIAL INTERACTION: SOCIAL INTERACTION - STEP 1: Does the patient require a helper to interact with others in social and therapeutic situations? No. SOCIAL INTERACTION - STEP 2: Does the patient need extra time in social situations, OR does s/he interact with staff, other patien ts, and family members ONLY in structured environments, OR does s/he require medication for social in teraction? Yes, patient needs extra time SOCIAL INTERACTION - SCORE: 6-JUAN FRANCISCO PROBLEM SOLVING: PROBLEM SOLVING - STEP 1: Does the patient need help from a person or device, or need extra time to solve complex problems such as managing a checking account or confronting interpersonal problems? No. PROBLEM SOLVING - STEP 2: Does the patient require extra time to make decisions or solve problems, OR does s/he have slight dif ficulty reading, initiating, or self-correcting in unfamiliar situations? Yes, patient needs extra ti me. PROBLEM SOLVING - SCORE: 6-JUAN FRANCISCO MEMORY: MEMORY - STEP 1: Does the patient need help from a person or device, or need extra time to remember frequently encount ered people, daily routines, and executing requests? No. MEMORY - STEP 2: Does the patient have slight difficulty recognizing frequently encountered people, daily routines, or executing requests without the need for repetition or using self-initiated or environmental cues to remember? Yes. MEMORY - SCORE: 6-JUAN FRANCISCO
--- NOTE | 2019-01-12 04:23 | PN ---
Date of Progress Note: 01/11/2019 Subjective: The patient was admitted with deconditioning. The patient is undergoing PT/OT. Physical Examination: Vital Signs: Blood pressure 86/48, pulse of 76. Chest: Clear to auscultation. Heart: S1, S2. Systolic murmur. Abdomen: Ascites. Extremities: No edema. Laboratory Data: H and H 8.5/25.3. Sodium 140, potassium 3.5, bicarb 30, BUN 53, creatinine 1.1, ca lcium 8.1. Current Medications: The patient on its include; 1.Ferrous sulfate. 2.Gabapentin. 3. . 4.Lactulose. 5.Pantoprazole. 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 We will continue to monitor. 2.Cirrhosis, ascites. We will start the patient on Lasix 20. We will do paracentesis today. 3.Hypertension, controlled, optimal. Continue current diuresis. 4.Deconditioning. Continue PT-OT. J LUIS Voice ID: [id number] Report ID: [id number]
[2019-01-12 06:39] LABS: Absolute Lymphocytes (CBC) 0.7 K/uL (0.7-4.9); Absolute Monocytes 0.5 K/uL (0.1-1.3); Absolute Neutrophil 2.6 K/uL (1.8-8.0); Eosinophils % 3.8 % (0-4.4); Hematocrit 27.4 % (36.0-45.0); MPV 8.3 fL (7.6-11.3); Monocytes % 12.2 % (3.3-12.3); RBC Red Blood Cell Count 2.88 M/uL (3.86-4.86)
[2019-01-12 06:58] VITALS: TEMP 98.6
[2019-01-12 07:10] LABS: Albumin 2.5 g/dL (3.4-5.0); Magnesium 2.7 mg/dL (1.8-2.4); Prealbumin 4.6 mg/dL (20-40)
[2019-01-12] MEDS: FUROSEMIDE 20 MG TABLET PO SCH (08:00)
[2019-01-12] MEDS: ENSURE ENLIVE 237 ML CAN PO SCH (08:00)
[2019-01-12] MEDS: SODIUM CHLORIDE 0.9% 10ML INJ IV SCH (08:00)
[2019-01-12] MEDS: JUVEN PACKET PO SCH (08:00)
[2019-01-12] MEDS: MUPIROCIN 2% OINT 22GM TUBE TOP SCH (08:00)
[2019-01-12] MEDS: LACTULOSE 20 GM/30 ML UCUP PO SCH (08:07)
[2019-01-12] MEDS: MIDODRINE HCL 5 MG TABLET PO SCH ×2 (08:08→14:00)
[2019-01-12] MEDS: GABAPENTIN 100 MG CAP PO SCH ×2 (08:08→14:00)
[2019-01-12] MEDS: FERROUS SULFATE 325 MG TAB PO SCH (08:08)
[2019-01-12] MEDS: FE SULF/FA/VIT B COMP & C TAB PO SCH (08:08)
[2019-01-12] MEDS: MAGNESIUM OXIDE 400 MG TAB PO SCH (08:08)
[2019-01-12] MEDS: PROMOD 30 ML DOSE PO SCH (08:09)
[2019-01-12 08:19] VITALS: BP 92/50
[2019-01-12 08:49] LABS: Platelet Estimate DECR; Urine White Blood Cell Casts OK
[2019-01-12 08:50] LABS: Blood Morphology Comment NOT SEEN (NOT SEEN)
--- NOTE | 2019-01-12 13:03 | P.CNS ---
Date of Consult: 01/12/19 Reason for Consult: painful toenails Requesting Physician: Valeriano Flannery Chief Complaint: My toenails hurt Allergies adhesive tape Allergy (Verified 12/29/18 16:59) Itching morphine Allergy (Verified 12/29/18 16:59) Itching/Hives/Rash Home Medications: Gabapentin 1 cap PO TID 07/11/18 Magnesium Oxide [Magnesium] 1 tab PO BID 07/11/18 Alok [Alok*] 1 pkt PO BID #60 powd.pack 12/12/18 Lactulose [Cephulac*] 30 ml PO BID #1500 ml 12/12/18 Docusate [Colace Cap*] 100 mg PO BEDTIME #30 cap 12/29/18 Ensure Enlive 237 ml PO BID can 12/29/18 Furosemide [Lasix*] 40 mg PO DAILY #30 tab 12/29/18 Midodrine HCl [Proamatine*] 10 mg PO BID #60 tab 12/29/18 Mupirocin Oint [Bactroban 2% Ointment*] 1 appl TOP BID #1 tube 12/29/18 Omeprazole [Prilosec] 40 mg PO 30 MIN BEFORE HS 12/29/18 Rifaximin [Xifaxan] 550 mg PO BID #60 tablet 12/29/18 Spironolactone [Aldactone] 12.5 mg PO DAILY #30 tab 12/29/18 Propylene Glycol/Peg 400/Pf [Systane 0.3-0.4% Eye Drop] 1 drop EACH EYE Q4H PRN 01/05/19 - Past Medical/Surgical History Diabetic: No -: liver cirrhosis -: colon cancer -: hep c -: back surgery -: knee surgery -: gallbladder removal -: tonsillectomy -: hysterectomy - Family History Father Medical History: Heart disease Notes: [place] Mother Notes: lived till 99 - Social History Smoking Status: Unknown if ever smoked Alcohol use: No CD- Drugs: No Caffeine use: Yes Place of Residence: Home Review of Systems 10-point ROS is otherwise unremarkable Physical Examination Temp Pulse Resp BP Pulse Ox 98.6 F 84 16 92/50 L 94 01/12/19 06:56 01/12/19 08:00 01/12/19 06:56 01/12/19 08:00 01/12/19 06:56 General: Alert, In no apparent distress, Oriented x3 Cardiovascular: Edema, Abnormal pulses Capillary refill: >2 Seconds Musculoskeletal: No clubbing, No swelling, No contractures, No erythema, No tenderness, No warmth Integumentary: No rashes, No breakdown, No significant lesion, No tenderness/ swelling, No erythema, No warmth, Other (rubor noted bilateral with absent hairgrowth and temperature noted to be cold. Thickened hypertrophic nails with subungual debris) Neurological: Abnormal sensation Laboratory Data (last 24 hrs) 01/12/19 05:20: Sodium 138, Potassium 4.0, BUN 41 H, Creatinine 1.20, Glucose 110 H, Magnesium 2.7 H 01/12/19 05:20: WBC 3.9 L, Hgb 9.2 L, Hct 27.4 L, Plt Count 88 L - Problems (1) Tinea unguium Current Visit: Yes Status: Acute (2) Generalized atherosclerosis Current Visit: Yes Status: Acute Plan: debridement of nails at bedside. Critical Care: No Time Spent Managing Pts care (In Minutes): 20
--- NOTE | 2019-01-12 14:47 | FAST ---
SHIFT START DATE/TIME: 01/11/2019 07:00 (CDT) SHIFT END DATE/TIME: 01/11/2019 19:00 (CDT) NAME EDGARD DÍAZ DATE OF : 1930 DATE OF ADMISSION: 12/29/2018 15:49 (CDT) PHONE: AGE: 88 N# [id number] GENDER: Female ENCOUNTER PHYSICIAN: Dr. Valeriano Flannery M.D. 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 EATING: EATING - STEP 1: Does the patient require the assistance of a person or device, or need extra time when eating? Yes. EATING - STEP 2: Does the patient require the assistance of a helper? Yes. EATING - STEP 3: Does the patient perform half or more of the eating tasks? Yes. EATING - STEP 4: Does the patient need only supervision, cuing, coaxing OR help to apply an orthosis OR help to cut fo od, open containers, pour liquids, or butter bread? Yes. EATING - SCORE: 5-SUP GROOMING: Comb/brush hair Oral care Wash, rinse, and dry face Wash, rinse, and dry hands GROOMING - STEP 1: Does the patient require the assistance of a person or device, or need extra time when grooming? Yes. GROOMING - STEP 2: Does the patient require the assistance of a helper? No. The patient only requires an assistive devic e, OR takes more than reasonable time to groom, OR there is a concern for safety as the patient groom s GROOMING - SCORE: 6-JUAN FRANCISCO BATHING: Activity did not occur on this shift BATHING - SCORE: 0-UNK DRESSING - UPPER BODY: T-shirt/pullover shirt (four steps) ARTICLES SCORE Total number of steps: 4 DRESSING - UPPER BODY - STEP 1: Does the patient require help from a person or device, or need extra time when dressing above the [address]innie st? Yes. DRESSING - UPPER BODY - STEP 2: Does the patient require the assistance of a helper? No. Patient only requires an assistive device, s uch as a button hook, velcro, or lay out and detail drafter. OR s/he takes more than reasonable time as s/he dresses the upper body. OR there is a concern for safety when s/he dresses the upper body DRESSING - UPPER BODY - SCORE: 6-JUAN FRANCISCO DRESSING - LOWER BODY: Elastic waist pants (three steps) Underwear (three steps) ARTICLES SCORE Total number of steps: 6 DRESSING - LOWER BODY - STEP 1: Does the patient require help from a person or device, or need extra time when dressing below the vinnie st? Yes. DRESSING - LOWER BODY - STEP 2: Does the patient require the assistance of a helper? No. Patient requires an assistive device such as a lay out and detail drafter. OR s/he takes more than reasonable time as s/he dresses the lower body, OR there is a con cern for safety when s/he dresses the lower body DRESSING - LOWER BODY - SCORE: 6-JUAN FRANCISCO TOILETING: TOILETING - STEP 1: Does the patient require the assistance of a person or device, or need extra time with toileting? Yes . TOILETING - STEP 2: Does the patient require the assistance of a helper? Yes. TOILETING - STEP 3: How much assistance does the patient require from the helper? Only supervision TOILETING - SCORE: 5-SUP BLADDER MANAGEMENT: BLADDER MANAGEMENT - STEP 1: Does the patient control the bladder completely and intentionally without equipment or devices or med ications, and is always continent? No. BLADDER MANAGEMENT - STEP 2: Does the patient require the assistance of a helper? No, patient requires and independently uses an a ssistive device, such as a urinal, bedpan, bedside commode, catheter, absorbent pad, or collecting de vice BLADDER MANAGEMENT - SCORE: 6-JUAN FRANCISCO BLADDER MANAGEMENT - FREQUENCY OF ACCIDENTS: BLADDER MANAGEMENT(FA) - STEP 1: How many accidents has the patient had during the current shift? 1 BOWEL MANAGEMENT: Activity did not occur on this shift BOWEL MANAGEMENT - SCORE: 7-IND BOWEL MANAGEMENT - FREQUENCY OF ACCIDENTS: BOWEL MANAGEMENT(FA) - STEP 1: How many accidents has the patient had during the current shift? 0 TRANSFERS: BED, CHAIR, WHEELCHAIR: TRANSFERS: BED, CHAIR, WHEELCHAIR - STEP 1: Does the patient require assistance of a person or device, or need extra time with bed, chair, or whe elchair transfers? Yes. TRANSFERS: BED, CHAIR, WHEELCHAIR - STEP 2: Does the patient require the assistance of a helper? Yes. TRANSFERS: BED, CHAIR, WHEELCHAIR - STEP 3: How much assistance does the patient require from the helper? Only supervision TRANSFERS: BED, CHAIR, WHEELCHAIR - SCORE: 5-SUP TRANSFERS: TOILET: TRANSFERS: TOILET - STEP 1: Does the patient require the assistance of a person or device, or need extra time with toilet transfe rs? Yes. TRANSFERS: TOILET - STEP 2: Does the patient require the assistance of a helper? Yes. TRANSFERS: TOILET - STEP 3: How much assistance does the patient require from the helper? Patient performs half or more of the tr ansferring tasks TRANSFERS: TOILET - STEP 4: Does the patient need only incidental help such as contact guard or steadying during toilet transfer? Yes. TRANSFERS: TOILET - SCORE: 4-MIN TRANSFERS: SHOWER: Activity did not occur on this shift TRANSFERS: SHOWER - SCORE: 0-UNK TRANSFERS: TUB: Activity did not occur on this shift TRANSFERS: TUB - SCORE: 0-UNK LOCOMOTION: WALK: Activity did not occur on this shift LOCOMOTION: WALK - SCORE: 0-UNK LOCOMOTION: WHEELCHAIR: LOCOMOTION: WHEELCHAIR - STEP 1: Does the patient need help to go 150 feet in a wheelchair? No. LOCOMOTION: WHEELCHAIR - SCORE: 6-JUAN FRANCISCO COMPREHENSION: COMPREHENSION: TYPE: Both COMPREHENSION - STEP 1: Does the patient require help from a person or device, or need extra time to understand complex and a bstract ideas (such as current events, finances, discharge planning, medical issues, relationships, e tc)? No. COMPREHENSION - STEP 2: Does the patient need extra time, require an assistive device (such as glasses for visual comprehensi on or a hearing aid for auditory comprehension) or does s/he have mild difficulty understanding compl ex and abstract information? Yes. COMPREHENSION - SCORE: 6-JUAN FRANCISCO EXPRESSION EXPRESSION: TYPE: Both EXPRESSION - STEP 1: Does the patient require help from a person or device, or need extra time expressing complex and abst ract ideas (such as current events, finances, discharge planning, medical issues, relationships, etc) ? No. EXPRESSION - STEP 2: Does the patient need extra time, require an assistive device (such as augmentive communication syste m or a communication board), OR does s/he have mild difficulty expressing complex and abstract ideas (including mild dysarthria or mild word-find problems)? Yes. EXPRESSION - SCORE: 6-JUAN FRANCISCO SOCIAL INTERACTION: SOCIAL INTERACTION - STEP 1: Does the patient require a helper to interact with others in social and therapeutic situations? No. SOCIAL INTERACTION - STEP 2: Does the patient need extra time in social situations, OR does s/he interact with staff, other patien ts, and family members ONLY in structured environments, OR does s/he require medication for social in teraction? Yes, patient needs extra time SOCIAL INTERACTION - SCORE: 6-JUAN FRANCISCO PROBLEM SOLVING: PROBLEM SOLVING - STEP 1: Does the patient need help from a person or device, or need extra time to solve complex problems such as managing a checking account or confronting interpersonal problems? No. PROBLEM SOLVING - STEP 2: Does the patient require extra time to make decisions or solve problems, OR does s/he have slight dif ficulty reading, initiating, or self-correcting in unfamiliar situations? Yes, patient needs extra ti me. PROBLEM SOLVING - SCORE: 6-JUAN FRANCISCO MEMORY: MEMORY - STEP 1: Does the patient need help from a person or device, or need extra time to remember frequently encount ered people, daily routines, and executing requests? No. MEMORY - STEP 2: Does the patient have slight difficulty recognizing frequently encountered people, daily routines, or executing requests without the need for repetition or using self-initiated or environmental cues to remember? Yes. MEMORY - SCORE: 6-JUAN FRANCISCO SIGNATURE PANEL: The following modified sections: Eating - Score, Grooming - Score, Bathing - Score, Dressing - Upper Body - Score, Dressing - Lower Body - Score, Toileting - Score, Bladder Management - Score, Bowel Man agement - Score, Transfers: Bed, Chair, Wheelchair - Score, Transfers: Toilet - Score, Transfers: Mariangel wer - Score, Transfers: Tub - Score, Locomotion: Walk - Score, Locomotion: Wheelchair - Score, Compre hension - Score, Expression - Score, Social Interaction - Score, Problem Solving - Score, Memory - Sc ore were [electronically] signed by Christina Ji C.N.A. on WedJan 12 2019 13:49:29 T-0500 (Centra l Daylight Time)
--- NOTE | 2019-01-12 15:09 | FAST ---
ENCOUNTER DATE AND TIME: 01/12/2019 08:00 (CDT) NAME EDGARD DÍAZ DATE OF : 1930 DATE OF ADMISSION: 12/29/2018 15:49 (CDT) PHONE: AGE: 88 N# [id number] GENDER: Female ENCOUNTER PHYSICIAN: Dr. Valeriano Flannery M.D. 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 EATING: Activity did not occur on this shift EATING - SCORE: 0-UNK GROOMING: Activity did not occur on this shift GROOMING - SCORE: 0-UNK BATHING: Activity did not occur on this shift BATHING - SCORE: 0-UNK DRESSING - UPPER BODY: Activity did not occur on this shift Patient is not dressing in public clothing ARTICLES SCORE Total number of steps: 0 DRESSING - UPPER BODY - SCORE: 0-UNK DRESSING - LOWER BODY: Activity did not occur on this shift Patient is not dressing in public clothing ARTICLES SCORE Total number of steps: 0 DRESSING - LOWER BODY - SCORE: 0-UNK TOILETING: Activity did not occur on this shift TOILETING - SCORE: 0-UNK BLADDER MANAGEMENT: Activity did not occur on this shift BLADDER MANAGEMENT - SCORE: 7-IND BOWEL MANAGEMENT: Activity did not occur on this shift BOWEL MANAGEMENT - SCORE: 7-IND TRANSFERS: BED, CHAIR, WHEELCHAIR: TRANSFERS: BED, CHAIR, WHEELCHAIR - STEP 1: Does the patient require assistance of a person or device, or need extra time with bed, chair, or whe elchair transfers? Yes. TRANSFERS: BED, CHAIR, WHEELCHAIR - STEP 2: Does the patient require the assistance of a helper? No. Patient only requires an assistive device fo r bed, chair, wheelchair transfers such as a sliding board, grab bar, or brace, OR s/he takes more th an reasonable time, OR there is a safety concern when s/he performs the transfers TRANSFERS: BED, CHAIR, WHEELCHAIR - SCORE: 6-JUAN FRANCISCO TRANSFERS: TOILET: Activity did not occur on this shift TRANSFERS: TOILET - SCORE: 0-UNK TRANSFERS: SHOWER: Activity did not occur on this shift TRANSFERS: SHOWER - SCORE: 0-UNK TRANSFERS: TUB: Activity did not occur on this shift TRANSFERS: TUB - SCORE: 0-UNK LOCOMOTION: WALK: LOCOMOTION: WALK - STEP 1: Does the patient need help from a person or device, or need extra time to walk 150 feet? No. LOCOMOTION: WALK - STEP 2: Does the patient need an assistive device (such as an orthosis, prosthesis, crutches, or walker) to g o 150 feet, OR does s/he take more than reasonable time, OR is there a concern for safety? Yes, the p atient needs an assistive device LOCOMOTION: WALK - SCORE: 6-JUAN FRANCISCO LOCOMOTION: WHEELCHAIR: Activity did not occur on this shift LOCOMOTION: WHEELCHAIR - SCORE: 0-UNK LOCOMOTION: STAIRS: LOCOMOTION: STAIRS - STEP 1: Does the patient need help to go up and down 12 to 14 stairs? No. LOCOMOTION: STAIRS - STEP 2: Does the patient require an assistive device - such as handrails or cane - to go up and down one flig ht of stairs, OR does s/he take more than reasonable time, OR is there a concern for safety? Yes, the patient requires an assistive device LOCOMOTION: STAIRS - SCORE: 6-JUAN FRANCISCO COMPREHENSION: COMPREHENSION - SCORE: 0-UNK EXPRESSION EXPRESSION - SCORE: 0-UNK SOCIAL INTERACTION: SOCIAL INTERACTION - SCORE: 0-UNK PROBLEM SOLVING: PROBLEM SOLVING - SCORE: 0-UNK MEMORY: MEMORY - SCORE: 0-UNK SIGNATURE PANEL: The following modified sections: Transfers: Bed, Chair, Wheelchair - Score, Transfers: Toilet - Score , Locomotion: Walk - Score, Locomotion: Wheelchair - Score, Locomotion: Stairs - Score were [lionel negron] signed by Wilberto Romero PT on WedJan 12 2019 15:08:56 T-0500 (Central Daylight Time)
--- NOTE | 2019-01-12 15:51 | R.PN ---
ENCOUNTER DATE AND TIME: 01/12/2019 15:48 (CDT) NAME EDGARD DÍAZ DATE OF : 1930 DATE OF ADMISSION: 12/29/2018 15:49 (CDT) Liver CirrhosisCHIEF COMPLAINT: Debility and liver cirrhosis SUBJECTIVE: Pt denied any depression. Pt denied any Shortness of Breath. Doppler of lower extremities reveal no DVTs or significant PAD. Ambulated 650' with modified independence using a rolling walker. Up and down 15 steps with modified independence. Propelled wheelchair 250' with modified independence.. Performed ADLs with standby assistance. Paracentesis done with removal of 11 L of straw colored fuel. She will be discharged home with home health today. VITAL SIGNS Temperature: 98.6 F SBP/DBP: 98/52 Pulse: 84 Resp:16 MEDICATION ALLERGIES: Morphine Sulfate ENVIRONMENTAL ALLERGIES: None Known - Substance Allergies None Known - Other Allergies ADHESIVE TAPE NURSING: - Shower allowing shower ACTIVITIES OOB only with supervision THERAPIES: - Occupational Therapy Evaluate and Treat. - Physical Therapy Evaluate and Treat. PHYSICAL EXAM - Gen Alert and awake Lying in bed No apparent distress Oriented to: person, time, and place - Skin No breakdown No abnormalities - Eyes No abnormalities - ENMT No abnormalities - Neck No abnormalities - CVS RRR - Chest No abnormalities - Abd Distended - GI Positive fluid wave - No abnormalities - Ext Moderate edema in both lower extremities. - MSK 4+/5 weakness in both lower extremities. - Neuro No focal deficits - Psych No abnormalities ASSESSMENT: Pt. is a 88 yo Right-handed white female.On 12/19/2018 she was admitted to [facility] with diagnosis Liver Cirrhosis.Her impairment category is Medically Complex Conditions 17 - T erminal Care (17.6).Pre-morbidly, Pt. was independent/mod-I in Self-Care, Sphincter Control, Transfer s Control, Locomotion, Communication, and Social Cognition; and she had good Sphincter Control.Curren tly, she has deficits of Self-Care, Transfers Control, Locomotion, Endurance, Balance, and Safety Susan reness.Pt. is now referred to [facility] for acute in-patient rehabilitation i n order to maximize patient's functional independence in activities of daily living, strength, ROM, a nd mobility.- Rehab Goal Patient has realistic goal of being discharged at assistance level 6-Keily to reside at Home with Fam fanny/Relatives. MDM/PLAN: - Physical Therapy Gait dysfunction - to improve, our physical therapists will perform initial evaluation of pt's statu s upon admission and devise an individualized program for Gait Training, and Wheel Chair mobility Inability to transfer - to improve, our physical therapists will perform initial evaluation of pt's status upon admission and devise an individualized program for Bed mobility Need for home safety evaluation - to improve, our physical therapists will perform initial evaluatio n of pt's status upon admission and devise an individualized program for Home Evaluation Need in caregiver upon discharge - to improve, our physical therapists will perform initial evaluati on of pt's status upon admission and devise an individualized program for Caregiver Training New precaution - to improve, our physical therapists will perform initial evaluation of pt's status upon admission and devise an individualized program for Patient precaution education Poor balance - to improve, our physical therapists will perform initial evaluation of pt's status up on admission and devise an individualized program for Balance Training Poor endurance - to improve, our physical therapists will perform initial evaluation of pt's status upon admission and devise an individualized program for Endurance Training Weakness - to improve, our physical therapists will perform initial evaluation of pt's status upon a dmission and devise an individualized program for Aquatic Therapy, Neuromuscular Reeducation, and Str engthening Achieving independence - to improve, our physical therapists will perform initial evaluation of pt's status upon admission and devise an individualized program for Community Reintegration Activities - Occupational Therapy ADL deficits - to improve, our occupation therapists will perform initial evaluation of pt's status upon admission and devise an individualized program for Bathing, Bed mobility, Community Reintegratio n, Cooking, Dressing, Eating, Fine Motor Skills, Grooming, Homemaking, Kitchen Mobility, Laundry, Pat ient Education, Safety Awareness, Splinting - Positioning, Transfers(Toilet, Tub, Shower), and Wheel Chair Management Need for social worker palliative care - to improve, our occupation therapists will perform initial evaluation of pt's status upon admission and devise an individualized program for Caregiver Training Weakness - to improve, our occupation therapists will perform initial evaluation of pt's status upon admission and devise an individualized program for Aquatic Therapy, Balance, Endurance, UE ROM, and UE strengthening - Diet Type Continue [facility] soft ground - Diet - Liquid Texture Continue Regular - Tube Feed Continue N/A - Diet - Solid Texture Continue Regular - Shower allowing shower FUNCTIONAL STATUS: UPDATED AT WEEKLY TEAM CONFERENCE - Bladder Same accident frequency: 7-Ind - No accidents in the past 7 days - Bowel Same accident frequency: 7-Ind - No accidents in the past 7 days - Walking Same score based on distance walked: 3(>=150ft) - Wheelchair Same score based on distance traveled: 0(N/A) FUNCTIONAL STATUS: - Self-Care A. Eating sup B. Grooming sup C. Bathing [place] D. Dressing - [place] E. Dressing - Lower modA F. Toileting modA - Sphincter Control G: Bladder control Ind H: Bowel control Ind - Transfers Control I. Bed/Chair/Wheelchair [place] J. Toilet [place] K. Tub/Shower ADNO - Locomotion L. Walk/Wheelchair (C) [place] L. Walk/Wheelchair (W) [place] M. Stairs ADNO - Communication N. Comprehension (B) Ind O. Expression (B) Ind - Social Cognition P. Social Interaction Ind Q. Problem Solving Ind R. Memory Ind - Endurance Fair - Balance Fair - Safety Awareness Fair CURRENT FUNC. DEFICITS: Self-Care, Transfers Control, Locomotion, Endurance, Balance, and Safety Awareness SIGNATURE PANEL: (CDT)
--- NOTE | 2019-01-12 19:03 | PN ---
Date of Progress Note: 01/12/2019 Subjective: The patient is seen and examined. Chart reviewed and case discussed with RN and Dr. Flannery. The patient seems to be doing okay. Does report that her ascites has returned. Medications: List reviewed. Physical Examination: Vital Signs: Temperature 98.6, heart rate 84, blood pressure 92/48, respirations 16, and O2 94% on room air. General: Awake, alert, oriented x3, not in any acute distress. Elderly female , frail. CV: S1 and S2. Respiratory: Moving air well bilaterally. Gastrointestinal: Abdomen is soft. Mild distention. Mild ascites. Positive bowel sounds. Extremities: No clubbing, cyanosis, or edema. Laboratory Data: Sodium 138, potassium 4, chloride 101, CO2 31, BUN 41, creatinine 1.2, glucose 110, calcium 8.1, magnesium 2.7, albumin 2.5. WBC 3.9, H and H 9.2 and 27.4, platelets 88. Assessment And Plan: An 88-year-old female with: 1. Hepatorenal syndrome, resolving. 2. Acute hypotension secondary to diuretics, improved. 3. Cirrhosis secondary to hepatitis C, status post multiple paracentesis and albumin infusions. The patient will be set up with the GI doctor's office with weekly paracentesis and albumin infusions. 4. Severe protein-calorie malnutrition. Albumin is 2.5. 5. Generalized weakness. 6. Anemia of chronic disease. H and H are stable. 7. Acute metabolic encephalopathy, resolved. /MODDai Voice ID: [id number] Report ID: [id number] EMILIANO
--- NOTE | 2019-01-13 13:46 | R.DS ---
FACILITY [facility] MR# [id number] NAME EDGARD DÍAZ ADDRESS [facility] [address] [place] [address] [address]IP [id number] PHONE DATE OF 1930 AGE 88 SSN# [id number] GENDER Female DEXTERITY Right-handed MARITAL STATUS RACE White ENCOUNTER PHYSICIAN Dr. Valeriano Flannery M.D. REFERRING DOCTOR Jp Aleman REFERRING FACILITY [facility] DISCHARGE DIAGNOSIS: - Medically Complex Conditions 17 - Terminal Care (17.6) Liver Cirrhosis. DISCHARGE COMORBIDITIES: - N/A Liver Cirrhosis Hepatitis C Colon Cancer DATE OF ADMISSION 12/29/2018 15:49 (CDT) MEDICATION ALLERGIES: Morphine Sulfate ENVIRONMENTAL ALLERGIES: None Known - Substance Allergies None Known - Other Allergies ADHESIVE TAPE NURSING: - Shower allowing shower ACTIVITIES OOB only with supervision THERAPIES: - Occupational Therapy Evaluate and Treat - Physical Therapy Evaluate and Treat HISTORY OF PRESENT ILLNESS: Pt. is a 88 yo Right-handed white female.On 12/19/2018 she was admitted to [facility] with diagnosis Liver Cirrhosis.Her impairment category is Medically Complex Conditions 17 - T erminal Care (17.6).Pre-morbidly, Pt. was independent/mod-I in Sphincter Control, Communication, and Social Cognition; and she had good Sphincter Control.Currently, she has deficits of Self-Care, Transf ers Control, Locomotion, Endurance, Balance, and Safety Awareness.Pt. is now referred to [facility] for acute in-patient rehabilitation in order to maximize patient's functional i ndependence in activities of daily living, strength, ROM, and mobility.- Rehab Goal Patient has realistic goal of being discharged at assistance level 6-Keily to reside at Home with Fam fanny/Relatives. HOSPITAL COURSE: DIET - LIQUID TEXTURE: On 12/29/2018 Pt was upgraded to Regular Diet - Liquid Texture. DIET - SOLID TEXTURE: On 12/29/2018 Pt was upgraded to Regular Diet - Solid Texture. DIET TYPE: On 12/29/2018 Pt was changed to [facility] soft ground Diet Type. TUBE FEED: On 12/29/2018 Pt was changed to N/A Tube Feed. DISCHARGE PHYSICAL EXAM - Gen Alert and awake Lying in bed No apparent distress Oriented to: person, time, and place - Skin No breakdown No abnormalities - Eyes No abnormalities - ENMT No abnormalities - Neck No abnormalities - CVS RRR - Chest No abnormalities - Abd Distended - GI Positive fluid wave - No abnormalities - Ext Moderate edema in both lower extremities. - MSK 4+/5 weakness in both lower extremities. - Neuro No focal deficits - Psych No abnormalities FUNCTIONAL STATUS: - Self-Care A. Eating 6-Keily B. Grooming 6-Keily C. Bathing 6-Keily D. Dressing - Upper 6-Keily E. Dressing - Lower 5-sup F. Toileting 6-Keily - Sphincter Control G: Bladder control 7-Ind H: Bowel control 7-Ind - Transfers Control I. Bed/Chair/Wheelchair 6-Keily J. Toilet 6-Keily K. Tub/Shower 6-Keily - Locomotion L. Walk/Wheelchair (C) 6-Keily L. Walk/Wheelchair (W) 6-Keily M. Stairs 6-Keily - Communication N. Comprehension (B) 7-Ind O. Expression (B) 7-Ind - Social Cognition P. Social Interaction 7-Ind Q. Problem Solving 7-Ind R. Memory 7-Ind - Endurance Fair - Balance Fair - Safety Awareness Fair DISCHARGE INSTRUCTIONS: - N/A Mobilization and ASA 81 mg daily for DVT prophylaxis. DISCHARGE PLAN, FOLLOW UP CARE PROVISIONS: - Estimated Length of Stay (days) 13. - Consensus on plan Discharge plan has been discussed with primary caregiver. Patient/Family is in agreement with the zachery n. Primary caregiver is in agreement with the plan. - Patient/Family Goals Return home with assistance. - Planned Living Setting Upon Discharge Home, to live with Family/Relatives. Transitional Living. SIGNATURE PANEL: (CDT)
--- NOTE | 2019-01-13 14:55 | FAST ---
ENCOUNTER DATE AND TIME: 01/11/2019 08:00 (CDT) NAME EDGARD DÍAZ DATE OF : 1930 DATE OF ADMISSION: 12/29/2018 15:49 (CDT) PHONE: AGE: 88 N# [id number] GENDER: Female ENCOUNTER PHYSICIAN: Dr. Valeriano Flannery M.D. 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 EATING: Activity did not occur on this shift EATING - SCORE: 0-UNK GROOMING: Activity did not occur on this shift GROOMING - SCORE: 0-UNK BATHING: Activity did not occur on this shift BATHING - SCORE: 0-UNK DRESSING - UPPER BODY: Activity did not occur on this shift Patient is not dressing in public clothing ARTICLES SCORE Total number of steps: 0 DRESSING - UPPER BODY - SCORE: 0-UNK DRESSING - LOWER BODY: Activity did not occur on this shift Patient is not dressing in public clothing ARTICLES SCORE Total number of steps: 0 DRESSING - LOWER BODY - SCORE: 0-UNK TOILETING: Activity did not occur on this shift TOILETING - SCORE: 0-UNK BLADDER MANAGEMENT: Activity did not occur on this shift BLADDER MANAGEMENT - SCORE: 7-IND BOWEL MANAGEMENT: Activity did not occur on this shift BOWEL MANAGEMENT - SCORE: 7-IND TRANSFERS: BED, CHAIR, WHEELCHAIR: TRANSFERS: BED, CHAIR, WHEELCHAIR - STEP 1: Does the patient require assistance of a person or device, or need extra time with bed, chair, or whe elchair transfers? Yes. TRANSFERS: BED, CHAIR, WHEELCHAIR - STEP 2: Does the patient require the assistance of a helper? No. Patient only requires an assistive device fo r bed, chair, wheelchair transfers such as a sliding board, grab bar, or brace, OR s/he takes more th an reasonable time, OR there is a safety concern when s/he performs the transfers TRANSFERS: BED, CHAIR, WHEELCHAIR - SCORE: 6-JUAN FRANCISCO TRANSFERS: TOILET: Activity did not occur on this shift TRANSFERS: TOILET - SCORE: 0-UNK TRANSFERS: SHOWER: Activity did not occur on this shift TRANSFERS: SHOWER - SCORE: 0-UNK TRANSFERS: TUB: Activity did not occur on this shift TRANSFERS: TUB - SCORE: 0-UNK LOCOMOTION: WALK: LOCOMOTION: WALK - STEP 1: Does the patient need help from a person or device, or need extra time to walk 150 feet? No. LOCOMOTION: WALK - STEP 2: Does the patient need an assistive device (such as an orthosis, prosthesis, crutches, or walker) to g o 150 feet, OR does s/he take more than reasonable time, OR is there a concern for safety? Yes, the p atient needs an assistive device LOCOMOTION: WALK - SCORE: 6-JUAN FRANCISCO LOCOMOTION: WHEELCHAIR: LOCOMOTION: WHEELCHAIR - STEP 1: Does the patient need help to go 150 feet in a wheelchair? No. LOCOMOTION: WHEELCHAIR - SCORE: 6-JUAN FRANCISCO LOCOMOTION: STAIRS: LOCOMOTION: STAIRS - STEP 1: Does the patient need help to go up and down 12 to 14 stairs? No. LOCOMOTION: STAIRS - STEP 2: Does the patient require an assistive device - such as handrails or cane - to go up and down one flig ht of stairs, OR does s/he take more than reasonable time, OR is there a concern for safety? Yes, the patient requires an assistive device LOCOMOTION: STAIRS - SCORE: 6-JUAN FRANCISCO COMPREHENSION: COMPREHENSION - SCORE: 0-UNK EXPRESSION EXPRESSION - SCORE: 0-UNK SOCIAL INTERACTION: SOCIAL INTERACTION - SCORE: 0-UNK PROBLEM SOLVING: PROBLEM SOLVING - SCORE: 0-UNK MEMORY: MEMORY - SCORE: 0-UNK SIGNATURE PANEL: The following modified sections: Transfers: Bed, Chair, Wheelchair - Score, Transfers: Toilet - Score , Locomotion: Walk - Score, Locomotion: Wheelchair - Score, Locomotion: Stairs - Score were [lionel negron] signed by Joe Lemus PTA on WedJan 13 2019 14:54:38 GMT-0500 (Central Daylight Time)
== END 2019-01-12 14:30 | disposition home health service (06) | DRG 432 ==
LOC: 5TH 15:49
PROVIDERS: ADMIT Psychiatry & Neurology Neurology with Special Qualifications in Child Neurology; ATTEND Psychiatry & Neurology Neurology with Special Qualifications in Child Neurology
PROC: 0W9G3ZZ Drainage of Peritoneal Cavity, Percutaneous Approach (ICD-10-PCS; principal; 2019-01-04)
PROC: 0W9G3ZZ Drainage of Peritoneal Cavity, Percutaneous Approach (ICD-10-PCS; 2019-01-11)
DX: K74.60 Unspecified cirrhosis of liver (principal); K76.7 Hepatorenal syndrome; E43 Unspecified severe protein-calorie malnutrition; G93.41 Metabolic encephalopathy; C18.9 Malignant neoplasm of colon, unspecified; K76.6 Portal hypertension; R18.8 Other ascites; N17.9 Acute kidney failure, unspecified; R53.81 Other malaise; B19.20 Unspecified viral hepatitis C without hepatic coma; R53.1 Weakness; K72.90 Hepatic failure, unspecified without coma; E87.6 Hypokalemia; G62.9 Polyneuropathy, unspecified; N18.9 Chronic kidney disease, unspecified; I12.9 Hypertensive chronic kidney disease with stage 1 through stage 4 chronic kidney disease, or unspecified chronic kidney disease; I95.2 Hypotension due to drugs; T50.1X5A Adverse effect of loop [high-ceiling] diuretics, initial encounter; D63.8 Anemia in other chronic diseases classified elsewhere; B35.1 Tinea unguium; I70.91 Generalized atherosclerosis; Z68.20 Body mass index [BMI] 20.0-20.9, adult
CPT/HCPCS: 36415; 49083; 80048; 80053; 81001; 82040; 82140; 82728; 83540; 83735; 84100; 84134; 84466; 85025; 85610; 87070; 87086; 87088; 87102; 89050; 92508; 92523; 92610; 93925; 93970; 97110; 97116; 97150; 97163; 97167; 97530; 97542; J1940; J2405; J7030; P9047

== ENCOUNTER → 2019-01-19 | Day surgery (SDC) | payer OTHER ==
[~2019-01-19] MED LIST: ALBUMIN HUMAN 25% 300 ML IV ONE; CEFAZOLIN/SWI 1gm 1 GM/10 ML SYR ONE
--- OUTSIDE RECORDS SUMMARY | 2019-01-19 10:08 | XMS REPORT | Clinical Summary ---
:1930 Author Organization [facility] Address [address] [place] [address] Care Team Providers Name Role Phone Kandy Castillo PA-C Physician [id number] Developer Unavailable Ankush Levine Referring Physician Fareed Ballesteros Primary [...] (65 FE) MG mouth daily tabletIndications: with breakfast. 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 capsule lactulose Take 30 mLs (20 8100 mL 3 11/01/2018 Active (CHRONULAC) 10 g total) by gram/15 mL (15 mL) mouth 3 (three) solution times daily. rifAXIMin 550 mg Tab Take 1 tablet 60 tablet 11 12/27/2018 Active (550 mg total) by mouth 2 (two) times daily. lactulose Take 30 ml 2-3 946 mL 15 01/06/2018 Discontinued (CHRONULAC) 10 times daily or 8 gram/15 mL as needed to solutionIndications: have 2-3 soft Secondary esophageal bowel movements varices without daily.. bleeding (HCC), Chronic fatigue, Portal hypertension with [...] by 0 Discontinued (CHRONULAC) 10 mouth 3 (three) 9 gram/15 mL (15 mL) times daily. solution Active Problems Problem Noted Date Encephalopathy chronic [...] infection 09/06/2014 Overview: SNOMED/[place] [id number] Last Assessment & Plan: Cirrhosis of liver [...] Specialty Care Team Description 12/27/2018 Orders Only HepatXiao Cesar RN 11/01/2018 Orders Only HepatPennie Gomez RN 10/20/2018 Abstract Yvonne James MA 10/17/2018 Telephone HepatKandy Linares, Follow-up PA-C 09/30/2018 Abstract Pennie Bahena RN 09/30/2018 Telephone HepatPennie Gomez RN Pending imaging 09/30/2018 Abstract Pennie Bahena RN 09/20/2018 Documentation Hepatology Xiao Mckeon RN 09/12/2018 Telephone HepatXiao Cesar RN other 08/11/2018 Telephone HepatXiao Cesar RN other 08/10/2018 Office Visit Hepatology Lynn Murguia MD 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); [facility], [facility] Screening for cancer; Hepatology Clinic E Encephalopathy; Abnormal breath sounds 07/11/2018 Telephone HepatXiao Cesar RN other 05/31/2018 Telephone Hepatology Xiao Mckeon RN other 05/13/2018 Abstract HepatYvonne Braun MA 04/07/2018 Orders Only Hepatology Kandy Castillo, Screening for malignant neoplasm (Primary Dx); PA-C 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) 04/07/2018 Telephone Kandy Brizuela, Follow-up PA-C 03/08/2018 Abstract Hepatology Rosemarie Bui 02/25/2018 Documentation Hepatology Lissette Solorio RN after 01/18/2018 Family History Medical History Relation Name Comments [...] Taken Blood Pressure 94/60 08/10/2018 2:08 PM [employer] Pulse 92 08/10/2018 2:08 PM [employer] Temperature 36.3 C (97.4 F) 08/10/2018 2:08 PM [employer] Respiratory Rate 16 08/10/2018 2:08 PM [employer]ER Oxygen Saturation 98% 08/10/2018 2:08 PM [employer] Inhaled Oxygen Concentration - - Weight 58.2 kg (128 lb 6.4 oz) 08/10/2018 2:08 PM [employer] Height 165.1 cm (5' 5") 08/10/2018 2:08 PM [employer] Body Mass Index 21.37 08/10/2018 2:08 PM [employer] Plan of Treatment Date Type Specialty Care Team Description 02/08/2019 Office Visit Hepatology Resource, [facility] Hepatology Clinic A Procedures Procedure Name Priority Date/Time Associated Comments Diagnosis CBC W/PLT COUNT & Routine 08/10/2018 3:45 Hepatic cirrhosis Results for this AUTO DIFFERENTIAL PM [employer] due to chronic procedure are in hepatitis C the results infection (HCC) section. Screening for cancer Encephalopathy AMMONIA Routine 08/10/2018 3:45 Hepatic cirrhosis Results for this PM [employer] due to chronic procedure are in hepatitis C the results infection (HCC) section. Screening for cancer Encephalopathy ALPHA FETOPROTEIN Routine 08/10/2018 3:45 Hepatic cirrhosis Results for this (AFP), TUMOR MARKER PM [employer] due to chronic procedure are in hepatitis C the results infection (HCC) section. Screening for cancer Encephalopathy PROTHROMBIN TIME/INR Routine 08/10/2018 3:45 Hepatic cirrhosis Results for this PM [employer] due to chronic procedure are in hepatitis C the results infection (HCC) section. Screening for cancer Encephalopathy CBC W/PLT COUNT & Routine 08/10/2018 3:45 Hepatic cirrhosis Results for this AUTO DIFFERENTIAL PM [employer] due to chronic procedure are in hepatitis C the results infection (HCC) section. Screening for cancer Encephalopathy HEPATIC FUNCTION Routine 08/10/2018 3:45 Hepatic cirrhosis Results for this PANEL PM [employer] due to chronic procedure are in hepatitis C the results infection (HCC) section. Screening for cancer Encephalopathy BASIC METABOLIC PANEL Routine 08/10/2018 3:45 Hepatic cirrhosis Results for this (7) PM [employer] due to chronic procedure are in hepatitis C the results infection (HCC) section. Screening for cancer Encephalopathy after 01/18/2018 Results CBC with platelet count + automated diff (08/10/2018 3:45 PM [employer]) WBC 5.0 3.5 - 10.5 K/L [facility] RBC 3.39 (L) 3.93 - 5.22 M/L [facility] Hemoglobin 10.7 (L) 11.2 - 15.7 GM/DL [facility] Hematocrit 33.1 (L) 34.1 - 44.9 % [facility] MCV 97.6 (H) 79.4 - 94.8 fL [facility] MCH 31.6 25.6 - 32.2 pg [facility] MCHC 32.3 32.2 - 35.5 GM/DL [facility] RDW 15.0 (H) 11.7 - 14.4 % [facility] Platelets 98 (L) 150 - 450 K/CU MM [facility] MPV 10.0 9.4 - 12.3 fL [facility] nRBC 0 0 - 0 /100 WBC [facility] % Neutros 71 % [facility] % Lymphs 14 % [facility] % Monos 12 % [facility] % Eos 2 % [facility] % Baso 1 % [facility] # Neutros 3.51 1.56 - 6.13 K/L [facility] # Lymphs 0.69 (L) 1.18 - 3.74 K/L [facility] # Monos 0.62 (H) 0.24 - 0.36 K/L [facility] # Eos 0.10 0.04 - 0.36 K/L [facility] # Baso 0.04 0.01 - 0.08 K/L [facility] Immature Granulocytes-Relative 0 0 - 1 % [facility] Specimen Blood Performing Organization Address City/[facility] Cent[facility] Phone Number [address] [address] [place] Alpha fetoprotein (AFP), tumor marker (08/10/2018 3:45 PM [employer]) Alpha-Fetoprotein 2.9 <10.0 ng/mL [facility] Specimen Blood Performing Organization Address [facility] Phone Number [address] [address] [phone] CENTER Pro-time/INR (08/10/2018 3:45 PM [employer]) Protime 16.5 (H) 11.7 - 14.7 seconds [facility] INR 1.3 <=5.9 [facility] Specimen Blood Narrative Performed At RECOMMENDED COUMADIN/WARFARIN INR THERAPY [facility] RANGES STANDARD DOSE: 2.0 - 3.0 Includes: PROPHYLAXIS for venous thrombosis, systemic embolization; TREATMENT for venous thrombosis and/or pulmonary embolus. HIGH RISK: Target INR is 2.5-3.5 for patients with mechanical heart valves. Performing Organization Address City/[facility] Cent[facility]ode Phone Number [address] [address] CENTER Ammonia (08/10/2018 3:45 PM [employer]) Ammonia 40 18 - 72 mol/L [facility] Specimen Blood Performing Organization Address [facility] Centercode Phone Number [address] [address] CENTER Hepatic function panel (08/10/2018 3:45 PM [employer]) Protein, Total 9.0 (H) 6.0 - 8.3 gm/dL [facility] Albumin 2.8 (L) 3.5 - 5.0 g/dL [facility] Total Bilirubin 1.2 0.2 - 1.2 mg/dL [facility] Bilirubin, Direct 0.7 (H) 0.1 - 0.5 mg/dL [facility] Alkaline Phosphatase 111 40 - 150 U/L [facility] AST 31 5 - 34 U/L [facility] ALT 12 6 - 55 U/L [facility] Specimen Blood Performing Organization Address City/[facility] Centercode Phone Number [address] [address] [place] Basic Metabolic Panel (08/10/2018 3:45 PM [employer]ER) Sodium 133 (L) 136 - 145 meq/L [facility] Potassium 4.0 3.5 - 5.1 meq/L [facility] Chloride 100 98 - 107 meq/L [facility] CO2 27 22 - 29 meq/L [facility] BUN 20 7 - 21 mg/dL [facility] Creatinine 1.07 0.57 - 1.25 mg/dL [facility] Glucose 71 70 - 105 mg/dL [facility] Calcium 9.4 8.4 - 10.2 mg/dL [facility] EGFR 49Comment: ESTIMATED GFR IS mL/min/1.73 sq m [facility] NOT ACCURATE [facility] CLEARANCE IN PREDICTING GLOMERULAR FILTRATION RATE. ESTIMATED GFR IS NOT APPLICABLE FOR DIALYSIS PATIENTS. Specimen Blood Performing Organization Address City/[facility] Centercode Phone Number [address] [place] [address] CENTER after 01/18/2018 Insurance Payer Benefit Plan / Group Subscriber ID Type Phone Address MEDICARE MEDICARE A B xxxxxxxxxxx Medicare MCR GENERIC MEDICARE xxxxxxxxx [employer] SUPPLEMENT/INDIVIDUAL SUPPLEMENT
--- OUTSIDE RECORDS SUMMARY | 2019-01-19 10:14 | XMS REPORT | Continuity of Care Document ---
[...] DX:153.9=ADENOCARC 014 [place] INOMA V10.05 Active 014 [facility] Umbilical Active Problem 04/24/2017 Data migrated hernia<sup>2</sup> 014 from [facility] Centricity on 01/28/15. Umbilical Active Problem 01/17/2018 Data migrated Medical hernia<sup>5</sup> 014 from [facility] on [facility] 01/28[facility]15. UMB HERNIA WITHOUT Active Condition 04/27/2014 Medical MENTION 014 Group OBSTRUCTION/GANGRE NE LARGE INTESTINE Active Condition 04/27/2014 Medical CANCER 012 Group SCREENING FOR Active Condition 04/27/2014 [facility] COLON CANCER 012 Group Carcinoma of Active Problem 01/17/2018 Data migrated ascending 011 from [facility] colon<sup>1</sup> Centricity on [facility] 01/28/15. Group CARCINOMA, Active Condition 04/27/2014 [facility] ASCENDING COLON 011 Group Cancer of colon Active Problem 01/17/2018 011 [facility] CH - Chronic Active Problem 04/24/2017 hepatitis [facility] DVT (<span Resolved Problem 04/24/2017 ID="[id number]">C [facility] onfirmed</span>) Bronchitis Resolved Problem 01/17/2018 [facility] CAD - Coronary Active Problem 01/17/2018 artery disease [facility] CH - Chronic Active Problem 01/17/2018 blood Medical hepatitis<sup>2</s transfusion Group, up> [facility] Chemotherapy Resolved Problem 01/17/2018 [facility] 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 [facility] Cirrhosis of liver Active Problem 01/17/2018 [facility] Colon cancer Resolved Problem 01/17/2018 [facility] DVT (<span Resolved Problem 01/17/2018 1966 Medical ID="[id number]">C Group, onfirmed</span>)<s [place] up>3, 4</sup> SOB on Active Problem 01/17/2018 Medical exertion(<span Group, ID="[id number]"> [place] Confirmed</span>) Esophageal varices Active Problem 01/17/2018 [facility] Hepatitis C Active Problem 01/17/2018 [facility] Hernia repair Resolved Problem 01/17/2018 [facility] History of colon Active Problem 01/17/2018 cancer [facility] Incisional hernia Active Problem 01/17/2018 [facility] Kidney stones Active Problem 01/17/2018 [facility] Neuropathy Active Problem 01/17/2018 [facility] Pneumonia Active Problem 01/17/2018 [facility] Recurrent UTI Active Problem 01/17/2018 [facility] Unspecified Active Diagnosis 08/26/2015 2..1. infectious disease [id number] 1. Bacterial Active Diagnosis 08/26/2015 2.0.1. infection [id number] 1. Other Active Diagnosis 08/26/2015 2.0.1. encephalopathy 222588.4.39 1. Esophageal varices Active Diagnosis 08/26/2015 2.16840.1. [id number] 1. Hepatic cirrhosis Active Diagnosis 08/26/2015 2.16840.1. [id number] 1. UTI Active Problem 08/26/2015 2.16.840.1. [id number] 1.11.13148 MALIGNANT MIGEL Active MH COLON NOS [facility] 153.9 Active [facility] HEPATOPULMONARY Active MH SYNDROME [facility] HX OF COLONIC Active MH MALIGNANCY [facility] URIN TRACT Active MH INFECTION NOS [facility] INCISIONAL HERNIA Active MH [facility] MALIGNANT NEOPLASM Active [facility] OF COLON, [facility] UNSPECIFIED PERSONAL HISTORY Active MH OF MALIGNANT [facility] NEOPLASM O CALCULUS OF KIDNEY Active [facility] Medications Medication Details Route Status Patient Ordering Order Source Instructions Provider Date Acetaminophen 2 tab, PO, Active 300 MG / Q6H, PRN 2016 [facility] Codeine Pain, X 7 Phosphate 30 MG day, # 56 Oral Tablet tab, 0 [Tylenol with Refill(s) Codeine #3] esmolol (ANES) Route: IV, Inactive Drug form: 2016 [facility] INJ, ONCE, Stop date: 08/03/17 13:22:00 GEROPSYCHOLOGIST ondansetron Route: IV, Inactive (ANES) Drug form: 2016 [facility] INJ, ONCE, Stop date: 08/03/17 13:07:00 GEROPSYCHOLOGIST propofol (ANES) Route: IV, Inactive Drug form: 2016 [facility] INJ, ONCE, Stop date: 08/03/17 13:07:00 GEROPSYCHOLOGIST lidocaine Route: IV, Inactive (ANES) Drug form: 2016 [facility] INJ, ONCE, Stop date: 08/03/17 13:07:00 GEROPSYCHOLOGIST ciprofloxacin Route: IV, Inactive (ANES) Drug form: 2016 [facility] INJ, ONCE, Stop date: 08/03/17 13:07:00 GEROPSYCHOLOGIST dexamethasone Route: IV, Inactive (ANES) Drug form: 2016 [facility] INJ, ONCE, Stop date: 08/03/17 13:07:00 GEROPSYCHOLOGIST fentaNYL (ANES) Route: IV, Inactive Drug form: 2016 [facility] INJ, ONCE, Stop date: 08/03/17 13:02:00 GEROPSYCHOLOGIST Calcium 1,000 mL, Inactive Chloride 0.0014 Rate: 25 2016 MEQ/ML / ml/hr, Infuse Potassium over: 40 hr, Chloride 0.004 Route: IV, MEQ/ML / Sodium Dosing Weight Chloride 0.103 74.091 kg, MEQ/ML / Sodium Total Volume: Lactate 0.028 1,000, Start MEQ/ML date: Injectable 08/03/17 Solution 12:12:00 GEROPSYCHOLOGIST, Duration: 30 day, Stop date: 09/02/17 12:11:00 GEROPSYCHOLOGIST, 1.86, m2 vancomycin Route: IV, Inactive (ANES) 1000 mg Drug form: 2016 [facility] INJ, Start date: 08/03/17 12:10:00 GEROPSYCHOLOGIST, Stop date: 08/03/17 13:10:00 GEROPSYCHOLOGIST Lactated Route: IV, Inactive Ringers Total Volume: 2016 [facility] Injection IV 1,000, Start (ANES) 1000 mL date: 08/03/17 12:10:00 GEROPSYCHOLOGIST, Stop date: 08/03/17 13:10:00 GEROPSYCHOLOGIST Ceftriaxone 1 gm, Route: No Longer IVPB, Q12H, Active 2016 [facility] Dosing Weight 74.091, kg, Start date: 08/02/17 21:00:00 GEROPSYCHOLOGIST, Duration: 24 hr, Stop date: 08/03/17 9:00:00 GEROPSYCHOLOGIST, ABX Indication: Urinary Tract Infection phenylephrine Route: IV, Inactive (ANES) Drug form: 2016 [facility] INJ, ONCE, Stop date: 04/21/17 10:51:00 CDT ondansetron Route: IV, Inactive (ANES) Drug form: 2016 [facility] INJ, ONCE, Stop date: 04/21/17 10:41:00 CDT dexamethasone Route: IV, Inactive (ANES) Drug form: 2016 [facility] INJ, ONCE, Stop date: 04/21/17 10:41:00 CDT ceFAZolin Route: IV, Inactive (ANES) Drug form: 2016 [facility] INJ, ONCE, Stop date: 04/21/17 10:41:00 CDT lidocaine Route: IV, Inactive (ANES) Drug form: 2016 [facility] INJ, ONCE, Stop date: 04/21/17 10:41:00 CDT propofol (ANES) Route: IV, Inactive Drug form: 2016 [facility] INJ, ONCE, Stop date: 04/21/17 10:41:00 CDT fentaNYL (ANES) Route: IV, Inactive Drug form: 2016 [facility] INJ, ONCE, Stop date: 04/21/17 10:41:00 CDT acetaminophen Route: IV, Inactive (ANES) (ANES) Drug form: 2016 [facility] INJ, Start date: 04/21/17 10:35:00 CDT, Stop date: 04/21/17 11:35:00 CDT sodium chloride Route: IV, Inactive 0.9% 500 ml INJ Total Volume: 2016 [facility] (ANES) 500, Start date: 04/21/17 10:08:00 CDT, Stop date: 04/21/17 11:08:00 CDT Calcium 1,000 mL, Inactive Chloride 0.0014 Rate: 25 2016 [facility] MEQ/ML / ml/hr, Infuse Potassium over: 40 hr, Chloride 0.004 Route: IV, MEQ/ML / Sodium Dosing Weight Chloride 0.103 74.545 kg, MEQ/ML / Sodium Total Volume: Lactate 0.028 1,000, Start MEQ/ML date: Injectable 04/21/17 Solution 9:53:00 CDT, Duration: 30 day, Stop date: 05/21/17 9:52:00 CDT Ocuvite 1 tab, PO, Active Daily, 0 2016 [facility] Refill(s) Furosemide 40 40 mg=1 tab, Active MG Oral Tablet PO, Daily, 0 2016 [facility] Refill(s) Vitamin D3 2000 2,000 Active intl units oral IntlUnit=1 2016 [facility] tablet tab, PO, Daily, 0 Refill(s) Albuterol 0.833 3 mL, Route: Inactive MG/ML / NEB, Drug 2016 [facility] Ipratropium Form: SOLN, [place] 0.167 Dosing Weight MG/ML Inhalant 76.364, kg, Solution ONCE, STAT, Start date: 02/23/17 9:22:00 CDT, Stop date: 02/23/17 9:22:00 CDTNotes: (Same as: Nolbertob) Sodium Chloride 500 mL, Rate: Inactive 0.154 MEQ/ML 25 ml/hr, 2016 [facility] Injectable Infuse over: Solution 20 hr, Route: IV, Dosing Weight 76.364 kg, Total Volume: 500, Start date: 02/23/17 9:22:00 CDT, Duration: 1 day, Stop date: 02/24/17 9:21:00 CDT Lasix 20 mg, 1 tab, No Longer Route: PO, Active 2014 [facility] Drug form: TAB, Daily, Dosing Weight 73.295, kg, Start date: 08/08/15 9:00:00, Duration: 30 day, Stop date: 09/06/15 9:00:00Notes: (Same as: Lasix) May cause GI upset. Give with food or milk. Spironolactone 12.5 mg, 0.5 No Longer tab, Route: Active 2014 [facility] PO, Drug form: TAB, Daily, Dosing [...] 20 mL, Route: Inactive IVP, Start 2014 [facility] date: 08/07/15 12:19:00, Duration: 30 day, Stop date: 09/06/15 12:18:00, PRN Line FlushNotes: preservative free. sodium chloride 10 mL, Route: Inactive IVP, Start 2014 [facility] date: 08/07/15 12:18:00, Duration: 30 day, Stop date: 09/06/15 12:17:00, PRN Line FlushNotes: preservative free. ciprofloxacin 500 mg=1 tab, Active 500 mg oral PO, Q12H, X 2014 [facility] tablet 10 day, # 20 tab, 0 Refill(s) Cephalexin 500 500 mg=1 cap, Inactive MG Oral Capsule PO, TID, X 10 2014 [Keflex] day, # 30 cap, 0 Refill(s) Docusate Sodium 100 mg, 1 Inactive 100 MG Oral cap, Route: 2014 [facility] Capsule PO, Drug [Colace] form: CAP, Daily, Dosing Weight 73.295, kg, PRN Constipation, Start date: 08/07/15 11:09:00, Duration: 30 day, Stop date: 09/06/15 11:08:00Notes : (Same as: Colace) (Do Not Crush) Ibuprofen 400 mg, 1 Inactive tab, Route: 2014 [facility] PO, Drug form: TAB, ONCE, Dosing Weight 73.295, kg, PRN Headache 1-5, Start date: 08/06/15 21:10:00, Stop date: 08/06/15 21:10:00Notes : (Same as: Motrin) "Do Not Crush" Give with food. Lasix PO, Daily, 0 Active Refill(s) 2014 [facility] Rocephin 1 gm, Route: No Longer IVPB, Active 2014 [facility] LODI03J, Dosing Weight 73.295, kg, Start date: 08/06/15 9:00:00, Duration: 30 day, Stop date: 09/04/15 9:00:00Notes: (Same As: Rocephin). Use with 100 mL NS and infuse over 30 min MEDICATION WASTE Product Size: 1000 mg Product Wasted: ___ mg Lactulose 10 gm, 15 ml, Inactive Route: PO, 2014 [facility] Drug Form: SYRP, Dosing Weight 73.295, kg, ONCE, Start date: 08/06/15 3:49:00, Stop date: 08/06/15 3:49:00Notes: (Same as:Chronulac) Ondansetron 4 mg, 2 mL, No Longer Route: IVP, Active 2014 [facility] Drug form: INJ, Q6H, Dosing Weight 73.636, kg, PRN Nausea & Vomiting, Start date: 08/06/15 3:29:00, Duration: 30 day, Stop date: 09/05/15 3:28:00Notes: (Same as: [place]) MEDICATION WASTE Product Size: 4 mg Product Wasted: ___ mg Acetaminophen 325 mg, 1 No Longer tab, Route: Active 2014 [facility] PO, Drug form: TAB, Q4H, Dosing Weight 73.636, kg, PRN Pain Score 4-6, Start date: 08/06/15 3:29:00, Duration: 30 day, Stop date: 09/05/15 3:28:00Notes: Do not exceed 4 gm/day. (Same as: Tylenol) Morphine 2 mg, Route: No Longer IVP, Q4H, Active 2014 [facility] Dosing Weight 73.636, kg, PRN Pain Score 7-10, Start date: 08/06/15 3:29:00, Duration: 30 day, Stop date: 09/05/15 3:28:00 Aspirin 325 mg, 1 No Longer tab, Route: Active 2014 [facility] PO, Drug form: ECTAB, Q24H, Dosing Weight 73.636, kg, Start date: 08/06/15 3:00:00, Duration: 30 day, Stop date: 09/04/15 3:00:00Notes: (Do Not Crush) Do not crush or chew. Saline Flush 10 mL, Route: No Longer 0.9% IVP, Drug Active 2014 [facility] Form: INJ, Dosing Weight 75.455, kg, PRN, PRN Line Flush, Start date: 08/05/15 19:05:00, Duration: 30 day, Stop date: 09/04/15 19:04:00Notes : (Same as: BD Posiflush) Docusate Sodium 100 mg=1 cap, Active 100 MG Oral PO, Daily, as 2013 [facility] Capsule needed for [Colace] constipation, # 20 cap, 0 Refill(s) gabapentin 300 300 mg=1 cap, Active MG Oral Capsule PO, BID, # 90 2013 [facility] cap, 0 Refill(s) tramadol 50 mg=1 tab, Active hydrochloride PO, Q6H, 2013 [facility] 50 MG Oral Pain, # 40 Tablet tab, 0 Refill(s) Ibuprofen 400 400 mg, 1 No Longer MG Oral Tablet tab, Route: Active 2013 [facility] PO, Drug form: TAB, Q6H, Dosing [...] 0.5 No Longer mL, Route: Active 2013 [facility] IV, Drug form: INJ, Q2H, PRN Pain, Start date: 04/18/14 17:55:00, Duration: 30 day, Stop date: 05/18/14 17:54:00 Ibuprofen 600 mg, Inactive Route: PO, 2013 Q6H, Dosing Weight 64.545, kg, PRN as needed for pain, Start date: 04/18/14 17:02:00, Duration: 30 day, Stop date: 05/18/14 17:01:00 Docusate Sodium 100 mg, 1 No Longer 100 MG Oral cap, Route: Active 2013 [facility] Capsule PO, Drug form: CAP, BID, Dosing Weight 64.545, kg, Start date: 04/18/14 17:00:00, Duration: 30 day, Stop date: 05/18/14 9:00:00Notes: (Same as: Colace) (Do Not Crush) Ofirmev 1,000 mg, 100 Inactive mL, Route: 2013 [facility] IV, Drug form: INJ, Q6H, Dosing Weight 65.909, kg, for > or=50 kg, Start date: 04/18/14 12:00:00, Duration: 1 day, Stop date: 04/19/14 6:00:00Notes: Infuse over 15 minutes Do not exceed 4gm/day of acetaminophen Saline Flush 5 ml, Route: No Longer 0.9% IVP, Drug Active 2013 [facility] Form: INJ, Dosing Weight 64.545, kg, PRN, PRN Line Flush, Start date: 04/18/14 10:16:00, Duration: 30 day, Stop date: 05/18/14 10:15:00Notes : Same as: BD Posiflush Sterile Sodium Chloride 1,000 mL, No Longer 0.154 MEQ/ML Rate: 125 Active 2013 [facility] Injectable ml/hr, Infuse Solution over: 8 hr, Route: IV, Dosing Weight 64.545 kg, Total Volume: 1,000, Start date: 04/18/14 10:16:00, Duration: 30 day, Stop date: 05/18/14 10:15:00 Ondansetron 4 mg, 2 mL, No Longer Route: IVP, Active 2013 [facility] Drug form: INJ, Q6H, Dosing Weight 64.545, kg, PRN Nausea & Vomiting, Start date: 04/18/14 10:16:00, Duration: 30 day, Stop date: 05/18/14 10:15:00Notes : (Same as: Zofran) Acetaminophen 1 tab, Route: Inactive 325 MG / PO, Drug 2013 [facility] Hydrocodone Form: TAB, Bitartrate 5 MG Dosing Weight Oral Tablet 65.909, kg, Q4H, PRN Pain Score 1-3, Start date: 04/18/14 10:16:00, Duration: 30 day, Stop date: 05/18/14 10:15:00Notes : (Same as: [place] 325/5) Do not exceed 4gm/day of acetaminophen . Cefoxitin 2 gm, Route: No Longer IVPB, ONCALL, Active 2013 [facility] Dosing Weight 64.545, kg, Start date: 04/13/14 13:00:00, Duration: 30 day, Stop date: 05/13/14 12:59:00Notes : (Same As: Mefoxin) Naloxone 0.1 mg, Inactive Route: IVP, 2013 [facility] Q2MIN, Dosing Weight 65.909, kg, PRN Narcotic Reversal, Start date: 03/13/14 11:16:00, Duration: 4 doses or times, Stop date: Limited # of times Flumazenil 0.2 mg, Inactive Route: IVP, 2013 [facility] PRN, Dosing Weight 65.909, kg, PRN Other -See Comment, Start date: 03/13/14 11:16:00, Duration: 1 doses or times, Stop date: Limited # of times Sodium Chloride 1,000 mL, Inactive 0.154 MEQ/ML Rate: 25 2013 [facility] Injectable ml/hr, Infuse Solution over: 40 [...] 1 tablet Orally Active 20 mg Orally [facility] 2.16.840.1 daily .347459.4. [id number] 68 Gabapentin 1 capsule Orally Active 300 MG Orally Jus 2.16.840.1 twice a day .122678.4. (bid) 68 B-12 Unknown Sublingual Active 2500 MCG Jus 2.16.840.1 Sublingual .089851.4. 68 Ocuvite 1 tablet Orally Active Orally daily Jus 2.16.840.1 .495499.4. 68 Lasix 1 tablet Orally Active 40 MG Orally Jus 2.16.840.1 Once a day .920253.4. 68 Ciprofloxacin 5 ml Orally Active 500 MG/5ML Jus 2.840.1 (10%) Orally .079533.4. Twice a day 68 Spironolactone 1 tablet Orally Active 25 MG Orally Jus 2.16.840.1 daily .941229.4. 68 Caltrate 600+D 1 tablet with Orally Active 600-400 Jus 2.840.1 food MG-UNIT .499249.4. Orally Once a day Allergies, Adverse Reactions, Alerts Substance Category Reaction Severity Reaction Status Date Comments Source type Reported MORPHINE Drug MORPHINE allergy 2 [facility] morphine<s Assertion Drug Active Data up>1</sup> allergy 2 migrated [place] from [facility] on 12/27/14. Originally documented as MORPHINE. Hallucinatio ns Adhesive Adverse rash Adverse Active 2.16.840. Tape Reaction Reaction 5 1.374379. 4.391 Morphine Adverse Info Not Adverse Active 2.16.840. Sulfate Reaction Available Reaction 5 1.061004. 4.391 morphine Assertion Drug Active allergy [place] [...] Lymphocytes 36.1 % 20.0 - 08/03 40.0 [facility] HEMATOLOGY Eosinophils 1.2 % 0.0 - 4.0 08/03 [facility] HEMATOLOGY Monocytes 5.4 % 2.0 - 12.0 08/03 [facility] HEMATOLOGY Basophils 0.6 % 0.0 - 1.0 08/03 [facility] HEMATOLOGY Segs 56.7 % 45.0 - 08/03 75.0 /2016 [facility] HEMATOLOGY Monocytes # 0.2 K/CMM 0.0 - 0.8 08/03 [facility] HEMATOLOGY Lymphocytes 1.0 K/CMM 1.0 - 5.5 08/03 [facility] HEMATOLOGY Segs-Bands # 1.6 K/CMM 1.5 - 8.1 08/03 [facility] HEMATOLOGY MPV 9.2 fL 7.4 - 10.4 08/03 [facility] HEMATOLOGY RDW 16.5 % 11.5 - 08/03 14.5 [facility] HEMATOLOGY Platelet 62 K/CMM 133 - 450 08/03 [facility] HEMATOLOGY Hct 39.3 % 36.0 - 08/03 MH 48.0 /2017 [facility] HEMATOLOGY Hgb 13.2 g/dL 12.0 - 08/03 MH 16.0 /2016 [facility] HEMATOLOGY RBC 4.14 M/CMM 4.20 - 08/03 MH 5.40 /2016 [facility] HEMATOLOGY MCH 31.9 pg 27.0 - 08/03 MH 31.0 /2016 [facility] HEMATOLOGY MCV 95.1 fL 80.0 - 08/03 MH 98.0 /2016 [facility] MCHC 33.6 g/dL 32.0 - 08/03 MH 36.0 /2016 [facility] HEMATOLOGY WBC 2.8 K/CMM 3.7 - 10.4 08/03 MH [facility] Renal Renal Patient Name: EDGARD DÍAZ 08/03 - pyelogram pyelogram /2016 [facility] retrograde retrograde : 1930; Age: 86 years Female DX DX MR: [id number] Read by: Thelma Chopra MD Dictated Date/time: 08/03/17 18:54 Study: Renal pyelogram retrograde DX 08/03/2017 3:09 PM GEROPSYCHOLOGIST Electronically Signed by: Thelma Chopra MD 08/03/17 [...] is not recommended in the following populations: [facility] 3m2 Individuals with unstable creatinine concentrations, [...] Globulin 4.6 g/dL 2.7 - 4.2 08/02 [facility] HEMATOLOGY RBC 3.92 M/CMM 4.20 - 12/ MH 5.40 [facility] HEMATOLOGY WBC 5.1 K/CMM 3.7 - 10.4 08/02 [facility] HEMATOLOGY Hgb 12.3 g/dL 12.0 - 08/02 16.0 /2016 [facility] HEMATOLOGY RDW 15.9 % 11.5 - 12/ MH 14.5 /2016 [facility] MCHC 33.4 g/dL 32.0 - 12/ MH 36.0 /2016 [facility] MCH 31.3 pg 27.0 - 12/ MH 31.0 [facility] Hct 36.7 % 36.0 - 12/ MH 48.0 /2016 [facility] HEMATOLOGY MCV 93.6 fL 80.0 - 12/ MH 98.0 /2016 [facility] HEMATOLOGY MPV 8.9 fL 7.4 - 10.4 12/ /2016 [facility] Platelet 82 K/CMM 133 - 450 12/ [facility] HEMATOLOGY INR 1.49 0.85 - 08/02 MH 1.17 /2016 [facility] HEMATOLOGY PT 18.1 s 12.0 - 08/02 14.7 [facility] PTT 33.0 s 22.9 - 08/02 35.8 [facility] HEMATOLOGY Segs-Bands # 2.6 K/CMM 1.5 - 8.1 08/02 [facility] HEMATOLOGY Basophils 0.8 % 0.0 - 1.0 / /2016 [facility] HEMATOLOGY Lymphocytes 1.8 K/CMM 1.0 - 5.5 / MH # /2017 [facility] HEMATOLOGY Eosinophils 0.2 K/CMM 0.0 - 0.5 / MH # /2016 [facility] HEMATOLOGY Monocytes # 0.5 K/CMM 0.0 - 0.8 08/02 [facility] HEMATOLOGY Segs 51.3 % 45.0 - 12/ MH 75.0 [facility] HEMATOLOGY Monocytes 10.3 % 2.0 - 12.0 / [facility] HEMATOLOGY Lymphocytes 34.4 % 20.0 - 12/ MH 40.0 /2016 [facility] HEMATOLOGY Eosinophils 3.2 % 0.0 - 4.0 08/02 [facility] ELECTROLYT AGAP 14.3 meq/L 10.0 - 04/13 ES 20.0 /2016 [facility] ELECTROLYT eGFR 46 04/13 Result Comment: [...] is not recommended in the following populations: [facility] 3m2 Individuals with unstable creatinine concentrations, [...] 0.50 - 04/13 ES Lvl 1.40 /2016 [facility] ELECTROLYT BUN 13 mg/dL 7 - 22 04/13 [facility] ELECTROLYT Potassium 4.3 meq/L 3.5 - 5.1 04/13 ES Lvl /2016 [facility] ELECTROLYT Sodium Lvl 142 meq/L 135 - 145 04/13 [facility] ELECTROLYT Chloride Lvl 107 meq/L 95 - 109 04/13 [facility] ELECTROLYT CO2 25 meq/L 24 - 32 04/13 [facility] ELECTROLYT Calcium Lvl 9.3 mg/dL 8.5 - 10.5 04/13 [facility] ELECTROLYT Glucose Lvl 101 mg/dL 70 - 99 04/13 [facility] HEMATOLOGY Eosinophils 0.2 K/CMM 0.0 - 0.5 04/13 MH # /2017 [facility] HEMATOLOGY Basophils # 0.1 K/CMM 0.0 - 0.2 04/13 [facility] HEMATOLOGY Monocytes # 0.6 K/CMM 0.0 - 0.8 04/13 [facility] HEMATOLOGY Lymphocytes 1.8 K/CMM 1.0 - 5.5 04/13 [facility] HEMATOLOGY Segs-Bands # 3.0 K/CMM 1.5 - 8.1 04/13 [facility] HEMATOLOGY Basophils 0.9 % 0.0 - 1.0 04/13 [facility] HEMATOLOGY Monocytes 10.4 % 2.0 - 12.0 04/13 [facility] HEMATOLOGY Eosinophils 3.0 % 0.0 - 4.0 04/13 [facility] HEMATOLOGY Segs 53.7 % 45.0 - 04/13 75.0 /2017 [facility] HEMATOLOGY Lymphocytes 32.0 % 20.0 - 04/13 MH 40.0 /2016 [facility] HEMATOLOGY INR 1.27 0.85 - 04/13 MH 1.17 /2016 [facility] HEMATOLOGY PT 16.2 s 12.0 - 04/13 14.7 [facility] MPV 8.9 fL 7.4 - 10.4 04/13 [facility] RDW 15.4 % 11.5 - 04/13 14.5 [facility] Platelet 79 K/CMM 133 - 450 04/13 [facility] MCH 32.2 pg 27.0 - 08 31.0 /2016 [facility] MCHC 33.3 g/dL 32.0 - 04/13 36.0 /2016 [facility] RBC 4.00 M/CMM 4.20 - 04/13 5.40 /2016 [facility] MCV 96.5 fL 80.0 - 04/13 98.0 /2016 [facility] Hct 38.6 % 36.0 - 04/13 48.0 [facility] Hgb 12.9 g/dL 12.0 - 04/13 16.0 [facility] WBC 5.6 K/CMM 3.7 - 10.4 04/13 [facility] PTT 28.2 s 22.9 - 04/13 35.[address] [facility] [address] [facility] CT Patient Name: EDGARD DÍAZ 03/04 - Colorectal Colorectal /2016 - [facility] [place] restaging : 1930; Age: 86 years y/o Female restaging MR: [id number] Read by: Williams Reynolds MD Dictated Date/time: [...] urinary bladder suspicious for chronic cystitis. SL: [id number] ELECTROLYT AGAP 7.1 meq/L 10.0 - 02/16 ES 20.0 [facility] ELECTROLYT eGFR 54 02/16 Result Comment: The eGFR is calculated using the CKD-EPI formula. In most young, healthy individuals the eGFR will be >90 mL/ min/1.73m2. The eGFR declines with age. An eGFR of 60-89 may be normal in [facility] mL/min/1.7 some populations, particularly the elderly, for whom the CKD-EPI formula has not been extensively validated. Use of the eGFR is not recommended in the following populations: [facility] 3m2 Individuals with unstable creatinine concentrations, [...] 8.8 mg/dL 8.5 - 10.5 02/16 ES [facility] ELECTROLYT Chloride Lvl 107 meq/L 95 - 109 02/16 ES [facility] ELECTROLYT CO2 30 meq/L 24 - 32 02/16 ES [facility] ELECTROLYT Potassium 4.1 meq/L 3.5 - 5.1 02/16 ES Lvl [facility] ELECTROLYT Glucose Lvl 75 mg/dL 70 - 99 02/16 ES [facility] ELECTROLYT BUN 11 mg/dL 7 - 22 02/16 ES [facility] ELECTROLYT Creatinine 0.95 mg/dL 0.50 - 02/16 ES Lvl 1.40 /2016 [facility] ELECTROLYT Sodium Lvl 140 meq/L 135 - 145 02/16 [facility] HEMATOLOGY Hgb 13.0 g/dL 12.0 - 02/16 MH 16. [facility] HEMATOLOGY Hct 38.8 % 36.0 - 02/16 MH 48.0 [facility] TUMOR CEA 11.8 ng/mL 0.0 - 3.0 02/16 [facility] CHEM PANEL A/G Ratio 0.6 0.7 - 1.6 08/07 [facility] CHEM PANEL AGAP 11.9 meq/L 10.0 - 08/07 MH 20. [facility] CHEM PANEL Globulin 4.1 g/dL 2.0 - 4.0 08/07 [facility] CHEM PANEL B/C Ratio 15 6 - 25 08/07 [facility] CHEM PANEL eGFR 61 08/07 Result [...] is not recommended in the following populations: [facility] 3m2 Individuals with unstable creatinine concentrations, [...] CO2 25 meq/L 24 - 32 08/07 [facility] CHEM PANEL Chloride Lvl 106 meq/L 95 - 109 08/07 [facility] CHEM PANEL Calcium Lvl 8.5 mg/dL 8.5 - 10.5 08/07 [facility] CHEM PANEL Albumin Lvl 2.5 g/dL 3.5 - 5.0 08/07 [facility] CHE[facility] PANEL Total 6.6 g/dL 6.4 - 8.4 08/07 [facility] CHEM PANEL ALT 20 unit/L 0 - 65 08/07 [facility] CHEM PANEL AST 26 unit/L 0 - 37 08/07 [facility] CHEM PANEL Alk Phos 109 unit/L 39 - 136 08/07 [facility] CHEM PANEL Bili Total 1.2 mg/dL 0.2 - 1.3 08/07 [facility] CHEM PANEL Potassium 3.9 meq/L 3.5 - 5.1 08/07 Lvl [facility] CHEM PANEL Sodium Lvl 139 meq/L 135 - 145 08/07 [facility] CHEM PANEL Creatinine 0.88 mg/dL 0.50 - 12 MH Lvl 1.40 [facility] CHEM PANEL Glucose Lvl 120 mg/dL 70 - 99 08/07 [facility] CHEM PANEL BUN 13 mg/dL 7 - 22 08/07 [facility] CHEM PANEL Magnesium 1.9 mg/dL 1.8 - 2.4 08/07 l /2014 [facility] HEMATOLOGY MPV 8.8 fL 7.4 - 10.4 08/07 [facility] HEMATOLOGY Platelet 54 K/CMM 133 - 450 08/07 [facility] HEMATOLOGY MCHC 33.1 g/dL 32.0 - 08/07 36.0 /2014 [facility] HEMATOLOGY RDW 14.7 % 11.5 - 08/07 MH 14.5 [facility] HEMATOLOGY MCV 97.0 fL 80.0 - 08/07 98.0 /2014 [facility] HEMATOLOGY MCH 32.1 pg 27.0 - 08/07 MH 31.0 /2014 [facility] HEMATOLOGY RBC 3.54 M/CMM 4.20 - 08/07 MH 5.40 /2014 [facility] HEMATOLOGY WBC 3.6 K/CMM 3.7 - 10.4 08/07 [facility] HEMATOLOGY Hct 34.3 % 36.0 - 08/07 48.0 /2014 [facility] HEMATOLOGY Hgb 11.4 g/dL 12.0 - 08/07 16.0 [facility] HEMATOLOGY Monocytes # 0.2 K/CMM 0.0 - 0.8 08/07 [facility] HEMATOLOGY Eosinophils 1.3 % 0.0 - 4.0 08/07 [facility] HEMATOLOGY Monocytes 7.0 % 2.0 - 12.0 08/07 [facility] HEMATOLOGY Lymphocytes 1.1 K/CMM 1.0 - 5.5 08/07 /2014 [facility] HEMATOLOGY Basophils 0.6 % 0.0 - 1.0 08/07 [facility] HEMATOLOGY Segs-Bands # 2.2 K/CMM 1.5 - 8.1 08/07 [facility] HEMATOLOGY Segs 61.3 % 45.0 - 08/07 75.0 [facility] HEMATOLOGY Lymphocytes 29.8 % 20.0 - 08/07 MH 40.0 [facility] URINE AND UA Nitrite Negative Negative 08/06 [facility] (08/06/15 3:01 PM) URINE AND UA Leuk Est Large Negative 08/06 *ABN* (08/06/15 3:01 PM) URINE AND UA Blood Moderate Negative 08/06 [facility] *ABN* (08/06/15 3:01 PM) URINE AND UA Bili Negative Negative 08/06 [facility] *NA* (08/06/15 3:01 PM) URINE AND UA >=8.0 0.1 - 1.0 08/06 [facility] *ABN* (08/06/15 3:01 PM) URINE AND UA Color Yellow Yellow 08/06 [facility] *NA* (08/06/15 3:01 PM) URINE AND UA Turbidity Cloudy Clear 08/06 [facility] *ABN* (08/06/15 3:01 PM) URINE AND UA Glucose Negative Negative 08/06 [facility] (08/06/15 3:01 PM) URINE AND UA Ketones Negative Negative 08/06 [facility] *NA* (08/06/15 3:01 PM) URINE AND UA Spec Grav 1.015 <=1.030 08/06 [facility] URINE AND UA pH 6.5 5.0 - 8.0 08/06 [facility] URINE AND UA Protein 30 mg/dL Negative 08/06 [facility] mg/dL [facility] URINE AND UA Sq Epi Few /LPF Few /LPF 08/06 [facility] URINE AND UA [place] Yeast Many /HPF None Seen 08/06 [facility] /HPF /2014 [facility] URINE AND UA WBC null 0 - 5 08/06 URINE AND UA RBC 17 /HPF 0 - 2 08/06 [facility] Carotid Carotid CAROTID DOPPLER 08/06 - artery artery /2014 - [facility] Doppler Doppler bilat US bilat US [...] Occasional None Seen 08/06 [facility] /HPF /HPF [facility] URINE AND UA Mucus Few /LPF None Seen 08/06 [facility] /LPF [facility] URINE AND UA Bacteria Moderate None Seen 08/06 [facility] /HPF /HPF /2014 URINE AND UA WBC null 0 - 5 08/06 [facility] URINE AND UA Sq Epi Moderate Few /LPF 08/06 [facility] /LPF URINE AND UA RBC 13 /HPF 0 - 2 08/06 [facility] URINE AND UA Nitrite Negative Negative [...] UA Spec Grav 1.015 <=1.030 08/06 [facility] URINE AND UA Turbidity Slight Cloudy Clear 08/06 [facility] (08/05/15 10:40 PM) URINE AND UA Color Yellow Yellow 08/06 [facility] *NA* (08/05/15 10:40 PM) URINE AND UA Protein Negative Negative 08/06 [facility] (08/05/15 10:40 PM) URINE AND UA pH 6.0 5.0 - 8.0 08/06 [facility] CARDIAC CK MB 5.3 ng/mL 0.5 - 3.6 08/06 [facility] CARDIAC Total CK 116 unit/L 12 - 191 08/06 [facility] CARDIAC BNP 45 pg/mL <=100 08/06 [facility] pg/mL [facility] CARD[facility]AC Troponin-I null 0.00 - 08/06 [facility] 0.40 [facility] CARDIAC CK MB Index 4.6 0.0 - 2.5 08/06 [facility] CHEM PANEL Ammonia 47.0 <=45.0 08/06 umol/L uMol/L [facility] CHEM PANEL Alk Phos 118 unit/L 39 - 136 08/06 [facility] CHEM PANEL Total 7.4 g/dL 6.4 - 8.4 08/06 Protein [facility] CHEM PANEL Calcium Lvl 8.5 mg/dL 8.5 - 10.5 08/06 [facility] CHEM PANEL eGFR 67 08/06 Result [...] is not recommended in the following populations: [facility] 3m2 Individuals with unstable creatinine concentrations, [...] Total 1.0 mg/dL 0.2 - 1.3 08/06 [facility] CHEM PANEL A/G Ratio 0.6 0.7 - 1.6 08/06 [facility] CHEM PANEL ALT 21 unit/L 0 - 65 08/06 [facility] CHEM PANEL Albumin Lvl 2.7 g/dL 3.5 - 5.0 08/06 [facility] CHEM PANEL AST 27 unit/L 0 - 37 08/06 [facility] CHEM PANEL AGAP 11.5 meq/L 10.0 - 12 MH 20.0 [facility] CHEM PANEL Globulin 4.7 g/dL 2.0 - 4.0 08/06 [facility] CHEM PANEL B/C Ratio 14 6 - 25 08/06 [facility] CHEM PANEL BUN 11 mg/dL 7 - 22 08/06 [facility] CHEM PANEL Chloride Lvl 106 meq/L 95 - 109 08/06 [facility] CHEM PANEL Creatinine 0.81 mg/dL 0.50 - 08/06 Lvl 1.40 /2014 [facility] CHEM PANEL Potassium 3.5 meq/L 3.5 - 5.1 08/06 Lvl /2014 [facility] CHEM PANEL Sodium Lvl 140 meq/L 135 - 145 08/06 [facility] CHEM PANEL CO2 26 meq/L 24 - 32 08/06 [facility] CHEM PANEL Glucose Lvl 109 mg/dL 70 - 99 08/06 [facility] HEMATOLOGY MPV 9.1 fL 7.4 - 10.4 08/06 [facility] HEMATOLOGY RDW 15.4 % 11.5 - 08/06 14. [facility] HEMATOLOGY Platelet 70 K/CMM 133 - 450 08/06 [facility] HEMATOLOGY MCHC 33.1 g/dL 32.0 - 12 36.0 [facility] HEMATOLOGY MCH 32.1 pg 27.0 - 12 MH 31.0 [facility] HEMATOLOGY MCV 97.2 fL 80.0 - 08/06 98.0 [facility] HEMATOLOGY Hct 36.5 % 36.0 - 12 MH 48.0 [facility] HEMATOLOGY Hgb 12.1 g/dL 12.0 - 12 MH 16.0 [facility] HEMATOLOGY RBC 3.76 M/CMM 4.20 - [...] is not recommended in the following populations: [facility] 3m2 Individuals with unstable creatinine concentrations, [...] Total 0.9 mg/dL 0.2 - 1.3 08/05 [facility] CHEM PANEL Alk Phos 126 unit/L 39 - 136 08/05 [facility] CHEM PANEL Albumin Lvl 2.7 g/dL 3.5 - 5.0 08/05 [facility] CHEM PANEL ALT 22 unit/L 0 - 65 08/05 [facility] CHEM PANEL AST 27 unit/L 0 - 37 08/05 [facility] CHEM PANEL AGAP 11.8 meq/L 10.0 - 08/05 20.0 [facility] CHEM PANEL B/C Ratio 14 6 - 25 08/05 [facility] CHEM PANEL A/G Ratio 0.6 0.7 - 1.6 08/05 [facility] CHEM PANEL Globulin 4.6 g/dL 2.0 - 4.0 08/05 [facility] HEMATOLOGY MPV 8.9 fL 7.4 - 10.4 08/05 [facility] HEMATOLOGY RDW 15.3 % 11.5 - 08/05 MH 14. [facility] HEMATOLOGY Platelet 69 K/CMM 133 - 450 08/05 [facility] HEMATOLOGY Hct 37.6 % 36.0 - 08/05 MH 48.0 [facility] HEMATOLOGY MCHC 32.8 g/dL 32.0 - 08/05 MH 36.0 [facility] HEMATOLOGY Hgb 12.4 g/dL 12.0 - 08/05 MH 16.0 [facility] HEMATOLOGY MCV 96.5 fL 80.0 - 08/05 MH 98.0 [facility] MCH 31.7 pg 27.0 - 08/05 MH 31.0 /2014 [facility] HEMATOLOGY WBC 6.2 K/CMM 3.7 - 10.4 08/05 /2014 [facility] HEMATOLOGY RBC 3.90 M/CMM 4.20 - 08/05 5.40 /2015 [facility] HEMATOLOGY Monocytes # 0.5 K/CMM 0.0 - 0.8 08/05 /2014 [facility] HEMATOLOGY Basophils 0.6 % 0.0 - 1.0 08/05 /2014 [facility] HEMATOLOGY Segs-Bands # 4.2 K/CMM 1.5 - 8.1 08/05 /2014 [facility] HEMATOLOGY Eosinophils 0.1 K/CMM 0.0 - 0.5 08/05 # /2015 [facility] HEMATOLOGY Lymphocytes 1.4 K/CMM 1.0 - 5.5 08/05 # /2015 [facility] HEMATOLOGY Lymphocytes 22.3 % 20.0 - 08/05 40.0 /2014 [facility] HEMATOLOGY Monocytes 7.3 % 2.0 - 12.0 08/05 /2014 [facility] HEMATOLOGY Eosinophils 1.4 % 0.0 - 4.0 08/05 [facility] HEMATOLOGY Segs 68.4 % 45.0 - 08/05 75.0 /2014 [facility] Chest Chest 1view Chest one view: [...] 08/05 - contrast contrast CT /2014 [facility] REASON FOR EXAM: pt from [...] Basophils 0.4 % 0.0 - 1.0 04/19 [facility] HEMATOLOGY Monocytes # 0.9 K/CMM 0.0 - 0.8 04/19 [facility] HEMATOLOGY Lymphocytes 1.0 K/CMM 1.0 - 5.5 04/19 MH # /2013 [facility] HEMATOLOGY Segs-Bands # 4.2 K/CMM 1.5 - 8.1 04/19 [facility] HEMATOLOGY Eosinophils 0.2 K/CMM 0.0 - 0.5 04/19 MH # /2013 [facility] HEMATOLOGY Eosinophils 2.7 % 0.0 - 4.0 04/19 [facility] HEMATOLOGY Monocytes 13.7 % 2.0 - 12.0 04/19 [facility] Lymphocytes 16.6 % 20.0 - 04/19 MH 40.0 /2013 [facility] HEMATOLOGY Segs 66.6 % 45.0 - 04/19 MH 75.0 /2013 [facility] MCHC 33.3 g/dL 32.0 - 04/19 MH 36.0 /2013 [facility] HEMATOLOGY RDW 15.2 % 11.5 - 04/19 MH 14.5 /2013 [facility] HEMATOLOGY MCH 32.3 pg 27.0 - 04/19 MH 31.0 /2013 [facility] HEMATOLOGY MCV 96.9 fL 80.0 - 04/19 MH 98.0 /2013 [facility] HEMATOLOGY Hct 30.1 % 36.0 - 04/19 MH 48.0 [facility] Platelet 67 K/CMM 133 - 450 04/19 [facility] MPV 8.4 fL 7.4 - 10.4 04/19 [facility] Hgb 10.0 g/dL 12.0 - 04/19 MH 16.0 [facility] HEMATOLOGY RBC 3.11 M/CMM 4.20 - 04/19 MH 5.40 /2013 [facility] HEMATOLOGY WBC 6.3 K/CMM 3.7 - 10.4 04/19 [facility] Chest 2 Chest 2 EXAM: Chest 2 views 04/19 - views views /2013 - [facility] DATE: Apr 19, 2014 09:48:02 AM [...] Globulin 4.8 g/dL 2.0 - 4.0 04/13 [facility] CHEM PANEL A/G Ratio 0.6 0.7 - 1.6 04/13 [facility] CHEM PANEL AGAP 13.4 meq/L 10.0 - 04/13 20.0 [facility] CHEM PANEL B/C Ratio 9 6 - 25 04/13 [facility] CHEM PANEL eGFR 59 04/13 1Result [...] is not recommended in the following populations: [facility] 3m2 Individuals with unstable creatinine concentrations, [...] values reflect the clinical guidelines of the [place] [employer]. [facility] CHEM PANEL BUN 8 [...] Total 1.3 mg/dL 0.2 - 1.3 04/13 [facility] CHEM PANEL Total 7.7 g/dL 6.4 - 8.4 04/13 [facility] CHEM PANEL Albumin Lvl 2.9 g/dL 3.5 - 5.0 04/13 [facility] HEMATOLOGY MCH 32.1 pg 27.0 - 04/13 31.0 [facility] HEMATOLOGY RDW 14.6 % 11.5 - 04/13 14.5 [facility] HEMATOLOGY MCHC 33.1 g/dL 32.0 - 04/13 36.0 /2013 [facility] HEMATOLOGY Platelet 76 K/CMM 133 - 450 04/13 [facility] HEMATOLOGY RBC 3.79 M/CMM 4.20 - 04/13 5.40 /2013 [facility] HEMATOLOGY Hct 36.7 % 36.0 - 04/13 48.0 /2013 [facility] HEMATOLOGY MCV 97.0 fL 81.0 - 04/13 99.0 /2013 [facility] HEMATOLOGY Hgb 12.1 g/dL 12.0 - 04/13 16.0 [facility] HEMATOLOGY WBC 4.6 K/CMM 3.7 - 10.4 04/13 [facility] HEMATOLOGY MPV 8.9 fL 7.4 - 10.4 04/13 [facility] HEMATOLOGY Segs 52.6 % 45.0 - 04/13 75.0 /2013 [facility] HEMATOLOGY Monocytes # 0.6 K/CMM 0.0 - 0.8 04/13 [facility] HEMATOLOGY Eosinophils 0.1 K/CMM 0.0 - 0.5 04/13 /2013 [facility] HEMATOLOGY Basophils 1.0 % 0.0 - 1.0 04/13 [facility] HEMATOLOGY Segs-Bands # 2.4 K/CMM 1.5 - 8.1 04/13 [facility] HEMATOLOGY Lymphocytes 1.5 K/CMM 1.0 - 5.5 04/13 /2013 [facility] HEMATOLOGY Lymphocytes 32.1 % 20.0 - 04/13 40.0 [facility] HEMATOLOGY Monocytes 12.2 % 2.0 - 12.0 04/13 [facility] HEMATOLOGY Eosinophils 2.1 % 0.0 - 4.0 04/[address] [facility] [address] PET CT PET/CT SCAN: 03/24 [facility] Colorectal Colorectal /2013 - [facility] [place] restaging restaging TECHNIQUE: 14 mCi of [...] AST 43 unit/L 0 - 37 03/06 [facility] CHEM PANEL Albumin Lvl 2.9 g/dL 3.5 - 5.0 03/06 [facility] CHEM PANEL Total 7.7 g/dL 6.4 - 8.4 03/06 [facility] CHEM PANEL Bili Direct 0.5 mg/dL 0.0 - 0.3 03/06 [facility] CHEM PANEL Alk Phos 137 unit/L 39 - 136 03/06 [facility] CHEM PANEL Bili Total 1.4 mg/dL 0.2 - 1.3 03/06 [facility] CHEM PANEL ALT 22 unit/L 0 - 65 03/06 [facility] CHEM PANEL Bili 0.9 mg/dL 0.0 - 1.0 03/06 [facility] CHEM PANEL Globulin 4.8 g/dL 2.0 - 4.0 03/06 [facility] CHEM PANEL A/G Ratio 0.6 0.7 - 1.6 03/06 [facility] ELECTROLYT AGAP 8.9 meq/L 10.0 - 03/06 ES 20.0 [facility] ELECTROLYT eGFR 59 03/06 1Result Comment: The eGFR is calculated using the CKD-EPI formula. In most young, healthy individuals the eGFR will be >90 mL/ min/1.73m2. The eGFR declines with age. An eGFR of 60-89 may be normal in [facility] mL/min/1.7 /2013 some populations, particularly the elderly, for whom the CKD-EPI formula has not been extensively validated. Use of the eGFR is not recommended in the following populations: [facility] 3m2 Individuals with unstable creatinine concentrations, [...] CO2 28 meq/L 24 - 32 03/06 [facility] ELECTROLYT Calcium Lvl 8.7 mg/dL 8.5 - 10.5 03/06 [facility] ELECTROLYT BUN 9 mg/dL 7 - 22 03/06 [facility] ELECTROLYT Creatinine 0.9 mg/dL 0.5 - 1.4 03/06 [facility] Lvl [facility] ELECTROLYT Sodium Lvl 140 meq/L 135 - 145 03/06 [facility] ELECTROLYT Potassium 3.9 meq/L 3.5 - 5.1 03/06 ES Lvl [facility] ELECTROLYT Chloride Lvl 107 meq/L 95 - 109 03/06 [facility] ELECTROLYT Glucose Lvl 84 mg/dL 70 - 99 03/06 2Interpretive Data: Adult reference range values reflect the clinical guidelines of the [place] [employer]. [facility] HEMATOLOGY Hgb 11.9 g/dL 12.0 - 03/06 16.0 [facility] HEMATOLOGY Hct 35.2 % 36.0 - 03/06 48.0 [facility] HEMATOLOGY Platelet 80 K/CMM 133 - 450 03/06 [facility] HEMATOLOGY WBC 4.4 K/CMM 3.7 - 10.4 03/06 [facility] HEMATOLOGY PT 15.9 s 12.0 - 03/06 14.7 [facility] HEMATOLOGY INR 1.29 0.85 - 07 3Interpretive Data: RECOMMENDED RANGES FOR PROTIME INR: . 2.0-3.0 for most medical and surgical thromboembolic states. [facility] 2.5-3.5 for artificial heart valves and recurrent embolism. INR SHOULD BE USED ONLY FOR PATIENTS ON STABLE ANTICOAGULANT THERAPY. HEMATOLOGY PTT 32.6 s 22.9 - 03/06 4Interpretive 35.8 /2013 Data: Heparin [facility] Therapeutic Range: 57 - 92 Seconds TUMOR CEA 12.2 ng/mL 0.0 - 3.0 03/[address] [facility] [address] CT 09/14 - [facility] Colorectal - [facility] [place] rest[place] EXAM: PET/CT restaging [...] Vital Signs Vital Sign Value Date Comments [facility] Systolic (mm Hg) 125 08/03/2017 [facility] Diastolic (mm Hg) 71 08/03/2017 [facility] Systolic (mm Hg) 129 08/03/2017 [facility] Diastolic (mm Hg) 66 08/03/2017 [facility] Systolic (mm Hg) 128 08/03/2017 [facility] Diastolic (mm Hg) 59 08/03/2017 [facility] Respitory Rate 16 08/03/2017 [facility] Respitory Rate 11 08/03/2017 [facility] Respitory Rate 9 08/03/2017 [facility] Temperature Oral (F) 97.3 F 08/02/2017 [facility] Heart Rate 70 08/02/2017 [facility] BMI Calculated 27.18 08/02/2017 [facility] Height 165.1 cm 08/02/2017 [facility] Weight 74.091 08/02/2017 [facility] Systolic (mm Hg) 99 04/21/2017 [facility] Diastolic (mm Hg) 56 04/21/2017 [facility] Respitory Rate 18 04/21/2017 [facility] Respitory Rate 18 04/21/2017 [facility] Systolic (mm Hg) 114 04/21/2017 [facility] Diastolic (mm Hg) 58 04/21/2017 [facility] Systolic (mm Hg) 109 04/21/2017 [facility] Diastolic (mm Hg) 56 04/21/2017 [facility] Respitory Rate 12 04/21/2017 [facility] Height 165.1 cm 04/13/2017 [facility] Weight 74.545 04/13/2017 [facility] BMI Calculated 27.35 04/13/2017 [facility] Temperature Oral (F) 97.4 F 04/13/2017 [facility] Heart Rate 80 04/13/2017 [facility] Systolic (mm Hg) 118 02/23/2017 [facility] Diastolic (mm Hg) 61 02/23/2017 [facility] Respitory Rate 32 02/23/2017 [facility] Respitory Rate 28 02/23/2017 [facility] Systolic (mm Hg) 109 02/23/2017 [facility] Diastolic (mm Hg) 60 02/23/2017 [facility] Systolic (mm Hg) 109 02/23/2017 [facility] Diastolic (mm Hg) 61 02/23/2017 [facility] Respitory Rate 23 02/23/2017 [facility] Temperature Oral (F) 97.4 F 02/16/2017 [facility] Heart Rate 72 02/16/2017 [facility] BMI Calculated 28.02 02/16/2017 [facility] Weight 76.364 02/16/2017 [facility] Height 165.1 cm 02/16/2017 [facility] Weight 159 08/12/2015 [id number]. [id number] Height 64.4 08/12/2015 [id number]. [id number] Temperature Oral (F) 97.6 F 08/12/2015 [id number]. [id number] Heart Rate 93 08/12/2015 [id number]. [id number] Diastolic (mm Hg) 63 08/12/2015 [id number]. [id number] Systolic (mm Hg) 114 08/12/2015 [id number]. [id number] Systolic (mm Hg) 102 08/07/2015 [facility] Diastolic (mm Hg) 66 08/07/2015 [facility] Temperature Oral (F) 97.6 F 08/07/2015 [facility] Respitory Rate 16 08/07/2015 [facility] Heart Rate 77 08/07/2015 [facility] Respitory Rate 15 08/07/2015 [facility] Temperature Oral (F) 97.4 F 08/07/2015 [facility] Heart Rate 81 08/07/2015 [facility] Systolic (mm Hg) 100 08/07/2015 [facility] Diastolic (mm Hg) 66 08/07/2015 [facility] Systolic (mm Hg) 115 08/07/2015 [facility] Diastolic (mm Hg) 73 08/07/2015 [facility] Heart Rate 83 08/07/2015 [facility] Respitory Rate 16 08/07/2015 [facility] Temperature Oral (F) 97.4 F 08/07/2015 [facility] BMI Calculated 26.89 08/06/2015 [facility] Weight 73.295 [...] [facility] Diastolic (mm Hg) 54 03/13/2014 [facility] Temperature Oral (F) 97.6 F 03/06/2014 [facility] Height 165.1 cm 03/06/2014 [facility] Weight 65.909 03/06/2014 [facility] BMI Calculated 24.18 03/06/2014 [facility] Weight 149 02/02/2014 [facility] Temperature Oral [...] Number For Provider Date Date Visit Outpatient [id number] COLON PING CEBALLOS 09/14 Active [facility] 9 [facility] Outpatient [id number] 153.9 PING CEBALLOS 09/20 Active [facility] Bedded [id number] Theodoros 03/13 03/13 [facility] Outpatient 0 [facility] Office [id number] Dakota Michele, 03/23 03/23 [id number] [place] [facility] General Surgery 350 [facility] Outpatient [id number] Ping Ceballos 03/24 03/25 [place] [facility] Lab Report [id number] Dakota Michele, 03/26 03/26 [place] [id number] [facility] Lab Report [id number] Thesantoshorowili 04/12 04/12 [place] [id number] [facility] Medical MD Group [facility] OBS [id number] Dakota Michele 04/18 04/20 [place] Observation [facility] Office [id number] Dakota Michele, 04/27 04/27 [place] Visit [id number] [facility] General Surgery [facility] OP [id number] Ping Ceballos 08/05 09/04 [place] Recurring [facility] OBS [id number] Van 08/06 08/07 [place] Observation 3 Jus [facility] Unknown [id number] 08/12 08/12 2.16.840 Medical [id number] /2014 .1.25259 Group [id number] Outpatient [id number] THEODOROS 05/14 [facility] 0 [facility]OLOYIAN [place] Outpatient [id number] THEODOROS 10/15 [facility] 1 VOLOYIAN [place] Outpatient [id number] THEODOROS 02/23 [facility] 3 VOLOY [place] Outpatient [id number] THEODORO 02/23 [facility] 2 [facility]OLOYIAN [facility] Bedded [id number] Theodoros 02/23 02/23 [facility] Outpatient 4 Volian [facility] Outpatient [id number] Theodoros 03/04 03/05 [facility] 5 Voloyian /2016 [facility] Outpatient [id number] [facility] 03/30 [facility] [place] Outpatient [id number] THEODOROS 04/21 [facility] 5 VOLOY [id number] [facility]2016 [facility] Outpatient [id number] ROMAN FOSTER 05/12 [facility] [place] Outpatient [id number] [facility] 05/17 [facility] [place] Outpatient [id number] NURSE VISIT 06/22 Active [facility] Day Surgery [id number] N[facility] 08/03 08/03 [place] /2016 [facility] Outpatient [id number] JOVANA CUI 08/26 [facility] [place] Outpatient [id number] N[facility] 08/26 Active [facility] Ambulatory [id number] Jovana Karli 08/26 08/26 [facility] Outpatient [id number] Nino [facility] 08/26 08/27 U[facility] Outpatient [id number] NINO [facility] 09/27 Active [facility] Outpatient [id number] [facility] 09/27 09/28 Urology [facility] Outpatient [id number] NINO [facility] 01/14 Active [facility] Amb[facility] [id number] N[facility] 01/14 01/14 Urology Pre-Reg [facility] Procedures Procedure Code Date Perfomer Comments Source Cystourethroscopy, 01363 Medical with removal of 7 Group foreign body, calculus, or ureteral stent from urethra or bladder (separate procedure); simple Hernia repair [id number] [facility] 4 Hernia repair [id number] Medical 4 Group Cannulation of [id number] [facility] [id number] 1994 [facility] catheterization<sup>1 </sup> Cholecystectomy [id number] [facility] Colonoscopy [id number] [facility] Hysterectomy [id number] [facility] Knee [id number] 2011 [facility] replacement<sup>2</red p> Operation [id number] [facility] Partial resection of [id number] [facility] colon Cannulation of [id number] [facility] Cardiac [id number] 1994 Medical catheterization<sup>1 Group </sup> Cataract extraction [id number] Medical and insertion of Group intraocular lens Cholecystectomy [id number] Medical Group Colonoscopy [id number] Medical Group Hysterectomy [id number] Medical Group Knee [id number] 2011 Medical replacement<sup>2</red Group p> Operation [id number] Medical Group Partial resection of [id number] Medical colon Group Cataract extraction [id number] [facility] and insertion of intraocular lens
--- OUTSIDE RECORDS SUMMARY | 2019-01-19 10:17 | XMS REPORT | CCD ---
:1930 Author Organization [facility] Care Team Providers Name Role Phone Marlyn Ceballos Consulting Provider Allergies, Adverse Reactions, Alerts Substance Reaction Status morphine Active Problem List Condition Effective Dates Status CAD - Coronary artery disease Active Cancer of colon 05/10/2011 Active Cirrhosis of liver Active Esophageal varices Active Hepatitis C Active Pneumonia Active
--- OUTSIDE RECORDS SUMMARY | 2019-01-19 10:17 | XMS REPORT | CCD ---
:1930 Author Organization [facility] Care Team Providers Name Role Phone Marlyn Ceballos Referring Provider Allergies, Adverse Reactions, Alerts Substance Reaction Status morphine Active Problem List Condition Effective Dates Status CAD - Coronary artery disease Active Cancer of colon 05/10/2011 Active Cirrhosis of liver Active Esophageal varices Active Hepatitis C Active Pneumonia Active
--- OUTSIDE RECORDS SUMMARY | 2019-01-19 10:18 | XMS REPORT | Continuity of Care Document ---
:1930 Author Organization [facility] Care Team Providers Name Role Phone MD Michele Hoang Unavailable Unavailable Insurance Providers Payer name Policy type / Policy ID Covered alliance party ID Policy Mont[place] Coverage type [place]IC[place] [employer] AARP HEALTHCARE OPTIONS (MEDICARE SUPPLEMENT AARP HEALTHCARE [...] Location Date Office Visit Dakota Michele MD [facility] SE General Mar 23, 2014 Surgery [...]
--- OUTSIDE RECORDS SUMMARY | 2019-01-19 10:19 | XMS REPORT | Continuity of Care Document ---
:1930 Author Organization [facility] Care Team Providers Name Role Phone MD Michele Hoang Unavailable Unavailable Insurance Providers Payer name Policy type / Policy ID Covered alliance party ID Policy Montoya Coverage type MEDIC[place]: [employer] AARP HEALTHCARE OPTIONS (MEDICARE SUPPLEMENT AARP HEALTHCARE [...] Location Date Lab Report Dakota Michele MD [facility] [place] Mar 26, 2014 Allergies, Adverse Reactions, Alerts [...]
--- OUTSIDE RECORDS SUMMARY | 2019-01-19 10:19 | XMS REPORT | Continuity of Care Document ---
:1930 Author Organization [facility] Care Team Providers Name Role Phone MD Michele Hoang Unavailable Unavailable Insurance Providers Payer name Policy type / Policy ID Covered democrat ID Policy Montoya Coverage type [place] [employer] AARP HEALTHCARE OPTIONS (MEDICARE SUPPLEMENT AARP HEALTHCARE [...] Location Date Office Visit Dakota Michele MD [facility] General Apr 27, 2014 Surgery 350 [...]
--- OUTSIDE RECORDS SUMMARY | 2019-01-19 10:19 | XMS REPORT | Continuity of Care Document ---
:1930 Author Organization [facility] Care Team Providers Name Role Phone MD Niranjan, Galdino Unavailable Unavailable Insurance Providers Payer name Policy type / Policy ID Covered democrat ID Policy Montoya Coverage type [place] [employer] AARP HEALTHCARE OPTIONS (MEDICARE SUPPLEMENT AARP HEALTHCARE [...] Location Date Lab Report Galdino Ureña MD [facility] Apr 12, 2014 Allergies, Adverse Reactions, [...]
--- OUTSIDE RECORDS SUMMARY | 2019-01-19 10:19 | XMS REPORT ---
:1930 Author Organization [employer] Care Team Providers Name Role Phone Belkis Luuad Provider Role Unavailable Allergies, Adverse Reactions, Alerts Substance Reaction Event Type Adhesive Tape rash Drug Allergy Morphine Sulfate Info Not Available Drug Allergy Encounters Encounter Location Date Unknown [facility] Aug 12, 2015 Problems Problem Type Condition [...] End Status Dosage Date Date Propranolol HCl [facility] 19895-30 20 mg Orally Active 1 tablet 73-00 daily Gabapentin [facility] 05968-59 300 MG Orally Active 1 capsule 39-19 twice a day (bid) B-12 [facility] 30950-93 2500 MCG Active Unknown 92-72 Sublingual Ocuvite [facility] 62588-01 Orally daily Active 1 tablet 87-60 Lasix [facility] 53030-42 40 MG Orally Active 1 tablet 60-13 Once a day Ciprofloxacin [facility] 75010-00 500 MG/5ML (10%) Active 5 ml 93-01 Orally Twice a day [facility]actone [facility] 14208-90 25 MG Orally Active 1 tablet 03-11 daily Caltrate 600+D [facility] 50222-37 600-400 MG-UNIT Active 1 tablet 86-00 Orally [...]
--- OUTSIDE RECORDS SUMMARY | 2019-01-19 10:20 | XMS REPORT ---
:1930 Author Organization [facility] Address [address] [place] [address] [address] [place] [address] Care Team Providers Name Role Phone MARY [...] Value Reference Range Comments ALPHA-FETOPROTEIN (BEAKER) (test ahkj=1858) 2.9 ng/mL <10.0 HEPATIC FUNCTION [id number] 16:38:00 Test Item Value Reference Range Comments TOTAL PROTEIN (BEAKER) (test cdzd=871) 9.0 gm/dL 6.0-8.3 ALBUMIN (BEAKER) (test rvjo=5007) 2.8 g/dL 3.5-5.0 BILIRUBIN TOTAL (BEAKER) (test zgmf=690) 1.2 mg/dL 0.2-1.2 BILIRUBIN DIRECT (BEAKER) (test cmnp=443) 0.7 mg/dL 0.1-0.5 ALKALINE PHOSPHATASE (BEAKER) (test bmvi=908) 111 U/L 40-150 AST (SGOT) (BEAKER) (test ijet=428) 31 U/L 5-34 ALT (SGPT) (BEAKER) (test mega=953) 12 U/L 6-55 BASIC METABOLIC [id number] 16:38:00 Test Item Value Reference Range Comments SODIUM (BEAKER) (test 133 meq/L 136-145 putm=244) POTASSIUM (BEAKER) (test 4.0 meq/L 3.5-5.1 ewvp=546) CHLORIDE (BEAKER) (test 100 meq/L 98-107 hoyr=213) CO2 (BEAKER) (test 27 meq/L 22-29 qgsm=993) BLOOD UREA NITROGEN 20 mg/dL 7-21 (BEAKER) (test gaox=706) CREATININE (BEAKER) (test 1.07 mg/dL 0.57-1.25 jusr=235) GLUCOSE RANDOM (BEAKER) 71 mg/dL 70-105 (test elzi=126) CALCIUM (BEAKER) (test 9.4 mg/dL 8.4-10.2 adlb=600) EGFR (BEAKER) (test 49 mL/min/1.73 sq m ESTIMATED GFR IS NOT hqyl=1995) ACCURATE CREATININE CLEARANCE IN PREDICTING GLOMERULAR FILTRATION RATE. ESTIMATED GFR IS NOT APPLICABLE FOR DIALYSIS PATIENTS. [id number] 16:33:00 Test Item Value Reference Range Comments AMMONIA (BEAKER) (test cqxp=450) 40 mol/L 18-72 PROTHROMBIN [id number] 16:29:00 Test Item Value Reference Range Comments PROTIME (BEAKER) (test qpxc=298) 16.5 seconds 11.7-14.7 INR (BEAKER) (test njdp=812) 1.3 <=5.9 RECOMMENDED COUMADIN/WARFARIN INR THERAPY RANGESSTANDARD DOSE: 2.0 - 3.0 Includes: PROPHYLAXIS forvenous thrombosis, systemic embolization; TREATMENT for venous thrombosis and/or pulmonary embolus.HIGH RISK: Target INR is 2.5-3.5 for patients with mechanical heart valves.CBC W/PLT COUNT & AUTO [id number] 16:22:00 Test Item Value Reference Range Comments WHITE BLOOD CELL COUNT (BEAKER) (test nahw=127) 5.0 K/ L 3.5-10.5 RED BLOOD CELL COUNT (BEAKER) (test qmgc=062) 3.39 M/ L 3.93-5.22 HEMOGLOBIN (BEAKER) (test gbzb=820) 10.7 GM/DL 11.2-15.7 HEMATOCRIT (BEAKER) (test ncrz=758) 33.1 % 34.1-44.9 MEAN CORPUSCULAR VOLUME (BEAKER) (test fbom=659) 97.6 fL 79.4-94.8 MEAN CORPUSCULAR HEMOGLOBIN (BEAKER) (test 31.6 pg 25.6-32.2 tkrz=311) MEAN CORPUSCULAR HEMOGLOBIN CONC (BEAKER) (test 32.3 GM/DL 32.2-35.5 woxv=838) RED CELL DISTRIBUTION WIDTH (BEAKER) (test 15.0 % 11.7-14.4 bcvp=349) PLATELET COUNT (BEAKER) (test mqad=412) 98 K/CU MM 150-450 MEAN PLATELET VOLUME (BEAKER) (test vuku=111) 10.0 fL 9.4-12.3 NUCLEATED RED BLOOD CELLS (BEAKER) (test 0 /100 WBC 0-0 lmqr=543) NEUTROPHILS RELATIVE PERCENT (BEAKER) (test 71 % puey=649) LYMPHOCYTES RELATIVE PERCENT (BEAKER) (test 14 % jsgn=874) MONOCYTES RELATIVE PERCENT (BEAKER) (test 12 % vvda=488) EOSINOPHILS RELATIVE PERCENT (BEAKER) (test 2 % vzuz=899) BASOPHILS RELATIVE PERCENT (BEAKER) (test 1 % yigh=561) NEUTROPHILS ABSOLUTE COUNT (BEAKER) (test 3.51 K/ L 1.56-6.13 ymwy=203) LYMPHOCYTES ABSOLUTE COUNT (BEAKER) (test 0.69 K/ L 1.18-3.74 mffm=974) MONOCYTES ABSOLUTE COUNT (BEAKER) (test zdii=687) 0.62 K/ L 0.24-0.36 EOSINOPHILS ABSOLUTE COUNT (BEAKER) (test 0.10 K/ L 0.04-0.36 prnv=880) BASOPHILS ABSOLUTE COUNT (BEAKER) (test zyoa=876) 0.04 K/ L 0.01-0.08 IMMATURE GRANULOCYTES-RELATIVE PERCENT (BEAKER) 0 % 0-1 (test imcj=7098) ALPHA FETOPROTEIN (AFP), TUMOR [id number] 17:15:00 Test Item Value Reference Range Comments ALPHA-FETOPROTEIN (BEAKER) (test klzi=1239) 3.3 ng/mL <10.0 [id number] 16:34:00 Test Item Value Reference Range Comments MAGNESIUM (BEAKER) (test vtxf=328) 1.8 mg/dL 1.6-2.6 BASIC METABOLIC [id number] 16:34:00 Test Item Value Reference Range Comments SODIUM (BEAKER) (test 133 meq/L 136-145 dpbr=684) POTASSIUM (BEAKER) (test 3.9 meq/L 3.5-5.1 lrgn=906) CHLORIDE (BEAKER) (test 99 meq/L 98-107 wucu=949) CO2 (BEAKER) (test 25 meq/L 22-29 ehtm=860) BLOOD UREA NITROGEN 12 mg/dL 7-21 (BEAKER) (test jmpa=760) CREATININE (BEAKER) (test 0.97 mg/dL 0.57-1.25 jrdz=914) GLUCOSE RANDOM (BEAKER) 93 mg/dL 70-105 (test jzlz=879) CALCIUM (BEAKER) (test 9.0 mg/dL 8.4-10.2 kxaf=241) EGFR (BEAKER) (test 54 mL/min/1.73 sq m ESTIMATED GFR IS NOT zocn=3958) ACCURATE CREATININE CLEARANCE IN PREDICTING GLOMERULAR FILTRATION RATE. ESTIMATED GFR IS NOT APPLICABLE FOR DIALYSIS PATIENTS. Specimen slightly ictericHEPATIC FUNCTION [id number] 16:34:00 Test Item Value Reference Range Comments TOTAL PROTEIN (BEAKER) (test nmsr=090) 8.0 gm/dL 6.0-8.3 ALBUMIN (BEAKER) (test hovo=2568) 3.0 g/dL 3.5-5.0 BILIRUBIN TOTAL (BEAKER) (test uvza=143) 1.9 mg/dL 0.2-1.2 BILIRUBIN DIRECT (BEAKER) (test uxos=635) 0.8 mg/dL 0.1-0.5 ALKALINE PHOSPHATASE (BEAKER) (test mulk=843) 122 U/L 40-150 AST (SGOT) (BEAKER) (test xxzk=769) 30 U/L 5-34 ALT (SGPT) (BEAKER) (test zozr=920) 12 U/L 6-55 Specimen slightly ictericPROTHROMBIN [id number] 16:17:00 Test Item Value Reference Range Comments PROTIME (BEAKER) (test pgmt=289) 17.3 seconds 11.7-14.7 INR (BEAKER) (test hlkh=952) 1.4 <=5.9 RECOMMENDED COUMADIN/WARFARIN INR THERAPY RANGESSTANDARD DOSE: 2.0 - 3.0 Includes: PROPHYLAXIS forvenous thrombosis, systemic embolization; TREATMENT for venous thrombosis and/or pulmonary embolus.HIGH RISK: Target INR is 2.5-3.5 for patients with mechanical heart valves.CBC W/PLT COUNT & AUTO [id number] 16:17:00 Test Item Value Reference Range Comments WHITE BLOOD CELL COUNT (BEAKER) (test vtqo=160) 5.6 K/ L 3.5-10.5 RED BLOOD CELL COUNT (BEAKER) (test sgdz=791) 3.83 M/ L 3.93-5.22 HEMOGLOBIN (BEAKER) (test vibm=396) 12.0 GM/DL 11.2-15.7 HEMATOCRIT (BEAKER) (test wmtx=480) 36.8 % 34.1-44.9 MEAN CORPUSCULAR VOLUME (BEAKER) (test nlyq=629) 96.1 fL 79.4-94.8 MEAN CORPUSCULAR HEMOGLOBIN (BEAKER) (test 31.3 pg 25.6-32.2 lthh=199) MEAN CORPUSCULAR HEMOGLOBIN CONC (BEAKER) (test 32.6 GM/DL 32.2-35.5 ppig=871) RED CELL DISTRIBUTION WIDTH (BEAKER) (test 15.9 % 11.7-14.4 tucw=171) PLATELET COUNT (BEAKER) (test chwv=060) 83 K/CU MM 150-450 MEAN PLATELET VOLUME (BEAKER) (test dkbm=819) 11.1 fL 9.4-12.3 NUCLEATED RED BLOOD CELLS (BEAKER) (test 0 /100 WBC 0-0 uofg=204) NEUTROPHILS RELATIVE PERCENT (BEAKER) (test 54 % tdum=933) LYMPHOCYTES RELATIVE PERCENT (BEAKER) (test 36 % tbnp=328) MONOCYTES RELATIVE PERCENT (BEAKER) (test 8 % best=191) EOSINOPHILS RELATIVE PERCENT (BEAKER) (test 2 % liza=472) BASOPHILS RELATIVE PERCENT (BEAKER) (test 1 % kske=446) NEUTROPHILS ABSOLUTE COUNT (BEAKER) (test 3.01 K/ L 1.56-6.13 gxpx=561) LYMPHOCYTES ABSOLUTE COUNT (BEAKER) (test 1.98 K/ L 1.18-3.74 hplp=083) MONOCYTES ABSOLUTE COUNT (BEAKER) (test lacr=265) 0.44 K/ L 0.24-0.36 EOSINOPHILS ABSOLUTE COUNT (BEAKER) (test 0.10 K/ L 0.04-0.36 ihxr=880) BASOPHILS ABSOLUTE COUNT (BEAKER) (test mexa=735) 0.04 K/ L 0.01-0.08 IMMATURE GRANULOCYTES-RELATIVE PERCENT (BEAKER) 0 % 0-1 (test wska=8094) ALPHA FETOPROTEIN (AFP), TUMOR [id number] 16:14:00 Test Item Value Reference Range Comments ALPHA-FETOPROTEIN (BEAKER) (test xjrt=2056) 5.7 ng/mL <10.0 Effective 07/17/2014: Reference Range ChangeNew: <10.0 Previous: 0.0- [id number] 15:57:00 Test Item Value Reference Range Comments MAGNESIUM (BEAKER) (test ppbh=722) 1.9 mg/dL 1.6-2.6 BASIC METABOLIC [id number] 15:57:00 Test Item Value Reference Range Comments SODIUM (BEAKER) (test 139 meq/L 136-145 yjia=399) POTASSIUM (BEAKER) (test 4.5 meq/L 3.5-5.1 azbs=156) CHLORIDE (BEAKER) (test 105 meq/L 98-107 vhxf=464) CO2 (BEAKER) (test 25 meq/L 22-29 qzhx=854) BLOOD UREA NITROGEN 15 mg/dL 7-21 (BEAKER) (test ksbp=757) CREATININE (BEAKER) (test 0.95 mg/dL 0.57-1.25 dzsf=553) GLUCOSE RANDOM (BEAKER) 86 mg/dL 70-105 (test nvlu=063) CALCIUM (BEAKER) (test 9.4 mg/dL 8.4-10.2 nxpb=278) EGFR (BEAKER) (test 56 mL/min/1.73 sq m ESTIMATED GFR IS NOT qshr=5389) ACCURATE CREATININE CLEARANCE IN PREDICTING GLOMERULAR FILTRATION RATE. ESTIMATED GFR IS NOT APPLICABLE FOR DIALYSIS PATIENTS. Specimen slightly ictericHEPATIC FUNCTION [id number] 15:57:00 Test Item Value Reference Range Comments TOTAL PROTEIN (BEAKER) (test vdyi=441) 7.6 gm/dL 6.0-8.3 ALBUMIN (BEAKER) (test lgas=1078) 3.2 g/dL 3.5-5.0 BILIRUBIN TOTAL (BEAKER) (test alkg=059) 1.8 mg/dL 0.2-1.2 BILIRUBIN DIRECT (BEAKER) (test edmd=759) 0.8 mg/dL 0.1-0.5 ALKALINE PHOSPHATASE (BEAKER) (test ilwj=721) 112 U/L 40-150 AST (SGOT) (BEAKER) (test yjdi=282) 33 U/L 5-34 ALT (SGPT) (BEAKER) (test sxni=854) 17 U/L 6-55 Specimen slightly ictericPROTHROMBIN [id number] 15:56:00 Test Item Value Reference Range Comments PROTIME (BEAKER) (test cypl=954) 16.7 seconds 11.7-14.7 INR (BEAKER) (test ridf=412) 1.4 <=5.9 RECOMMENDED COUMADIN/WARFARIN INR THERAPY RANGESSTANDARD DOSE: 2.0 - 3.0 Includes: PROPHYLAXIS forvenous thrombosis, systemic embolization; TREATMENT for venous thrombosis and/or pulmonary embolus.HIGH RISK: Target INR is 2.5-3.5 for patients with mechanical heart valves.CBC W/PLT COUNT & AUTO [id number] 15:56:00 Test Item Value Reference Range Comments WHITE BLOOD CELL COUNT (BEAKER) (test doum=352) 5.3 K/ L 4.0-10.0 RED BLOOD CELL COUNT (BEAKER) (test ilzn=836) 4.21 M/ L 4.00-5.00 HEMOGLOBIN (BEAKER) (test nqkf=008) 14.1 GM/DL 12.0-15.0 HEMATOCRIT (BEAKER) (test ilng=068) 41.7 % 36.0-45.0 MEAN CORPUSCULAR VOLUME (BEAKER) (test nmxf=740) 99.1 fL 82.0-99.0 MEAN CORPUSCULAR HEMOGLOBIN (BEAKER) (test 33.4 pg 27.0-33.0 ouvw=573) MEAN CORPUSCULAR HEMOGLOBIN CONC (BEAKER) (test 33.7 GM/DL 32.0-36.0 ackz=507) RED CELL DISTRIBUTION WIDTH (BEAKER) (test 13.2 % 10.3-14.2 dumn=549) PLATELET COUNT (BEAKER) (test wled=754) 77 K/CU MM 150-430 MEAN PLATELET VOLUME (BEAKER) (test vcdh=575) 8.4 fL 6.5-10.5 NUCLEATED RED BLOOD CELLS (BEAKER) (test 0 /100 WBC 0-0 pkov=367) NEUTROPHILS RELATIVE PERCENT (BEAKER) (test 54 % asfq=049) LYMPHOCYTES RELATIVE PERCENT (BEAKER) (test 33 % hjom=374) MONOCYTES RELATIVE PERCENT (BEAKER) (test 10 % hrpf=196) EOSINOPHILS RELATIVE PERCENT (BEAKER) (test 3 % oodq=196) BASOPHILS RELATIVE PERCENT (BEAKER) (test 0 % ljtm=431) NEUTROPHILS ABSOLUTE COUNT (BEAKER) (test 2.86 K/ L 1.80-8.00 fizz=417) LYMPHOCYTES ABSOLUTE COUNT (BEAKER) (test 1.77 K/ L 1.48-4.50 liro=534) MONOCYTES ABSOLUTE COUNT (BEAKER) (test agcs=834) 0.56 K/ L 0.00-1.30 EOSINOPHILS ABSOLUTE COUNT (BEAKER) (test 0.13 K/ L 0.00-0.50 wrxh=995) BASOPHILS ABSOLUTE COUNT (BEAKER) (test wiej=629) 0.02 K/ L 0.00-0.20 [id number] 11:05:00 Test Item Value Reference Range Comments POC-CREATININE (BEAKER) 0.9 mg/dL 0.6-1.3 TESTED AT [facility] [address] [facility] (test zaal=9120) [facility] [address] POC-EGFR (BEAKER) (test 59 mL/min/1.73M2 fksv=1855)
[2019-01-19 10:28] VITALS: BMI 20.9
--- NOTE | 2019-01-19 13:01 | RAD REPORT ---
EXAM DESCRIPTION: US - Paracentesis Proc Guidance - 01/19/2019 12:08 pm CLINICAL HISTORY: Ascites COMPARISON: Multiple prior paracentesis procedures TECHNIQUE: The patient presents for ultrasound-guided paracentesis. The procedure, risks and altern atives were discussed with the patient in detail. Oral and written consent were obtained. Time out p rocedure was performed. The patient had no contraindicated allergy or medication history. PT, INR va lues within acceptable limits. Preliminary sonographic evaluation identified right lower quadrant access site. The skin and deeper tissues were anesthetized with 1 percent lidocaine. Under direct sonographic visualization, a parace ntesis catheter was advanced into the peritoneal cavity. Large volume drainage was initiated. Approx imately 7 liters of ascites removed. At the conclusion of the procedure, catheter was withdrawn and a bandage placed at the puncture site. Post-procedure care and precaution instructions were given to the patient. Patient was transferred back to same-day surgery for post-procedure monitoring and albumin infusion per referring physician alanna maldonado. IMPRESSION: Ultrasound-guided paracentesis as detailed.
[2019-01-19 14:17] VITALS: TEMP 98.5; O2SAT 100
[2019-01-19 14:18] VITALS: BP 106/58
== END ==
LOC: DS 09:50
PROVIDERS: ATTEND Internal Medicine Gastroenterology
DX: R18.8 Other ascites (principal); K74.60 Unspecified cirrhosis of liver
CPT/HCPCS: 36415; 85730; 96365; 49083; 96366; P9047; J0690

== ENCOUNTER 2019-01-23 08:00 | Observation (INO) | payer OTHER ==
--- OUTSIDE RECORDS SUMMARY | 2019-01-23 08:03 | XMS REPORT | Clinical Summary ---
:1930 Author Organization [facility] Address [address] [place] [address] Care Team Providers Name Role Phone Kandy Castillo PA-C Physician Mechanical Maintenance Foreman Unavailable Ankush Levine Referring Physician Fareed Ballesteros [...] infection 09/06/2014 Overview: SNOMED/[place] [id number] Last Assessment & Plan: Cirrhosis of liver [...] chronic hepatitis C infection (HCC) (Primary Dx); [facility], [facility] Screening for cancer; Hepatology Clinic E [...] 02/25/2018 Documentation Hepatology Lissette Solorio RN after 01/22/2018 Family History Medical History Relation Name Comments [...] Taken Blood Pressure 94/60 08/10/2018 2:08 PM OIL CHANGE TECHNICIAN Pulse 92 08/10/2018 2:08 PM OIL CHANGE TECHNICIAN Temperature 36.3 C (97.4 F) 08/10/2018 2:08 PM OIL CHANGE TECHNICIAN Respiratory Rate 16 08/10/2018 2:08 PM OIL CHANGE TECHNICIAN Oxygen Saturation 98% 08/10/2018 2:08 PM OIL CHANGE TECHNICIAN Inhaled Oxygen Concentration - - Weight 58.2 kg (128 lb 6.4 oz) 08/10/2018 2:08 PM OIL CHANGE TECHNICIAN Height 165.1 cm (5' 5") 08/10/2018 2:08 PM OIL CHANGE TECHNICIAN Body Mass Index 21.37 08/10/2018 2:08 PM OIL CHANGE TECHNICIAN Plan of Treatment Date Type Specialty Care Team Description 02/08/2019 Office Visit Hepatology Resource, [facility] Hepatology Clinic A Procedures Procedure Name Priority Date/Time Associated Comments Diagnosis CBC W/PLT COUNT & Routine 08/10/2018 3:45 Hepatic cirrhosis Results for this AUTO DIFFERENTIAL PM OIL CHANGE TECHNICIAN due to chronic procedure are in hepatitis C the results infection (HCC) section. Screening for cancer Encephalopathy AMMONIA Routine 08/10/2018 3:45 Hepatic cirrhosis Results for this PM OIL CHANGE TECHNICIAN due to chronic procedure are in hepatitis C the results infection (HCC) section. Screening for cancer Encephalopathy ALPHA FETOPROTEIN Routine 08/10/2018 3:45 Hepatic cirrhosis Results for this (AFP), TUMOR MARKER PM OIL CHANGE TECHNICIAN due to chronic procedure are in hepatitis C the results infection (HCC) section. Screening for cancer Encephalopathy PROTHROMBIN TIME/INR Routine 08/10/2018 3:45 Hepatic cirrhosis Results for this PM OIL CHANGE TECHNICIAN due to chronic procedure are in hepatitis C the results infection (HCC) section. Screening for cancer Encephalopathy CBC W/PLT COUNT & Routine 08/10/2018 3:45 Hepatic cirrhosis Results for this AUTO DIFFERENTIAL PM OIL CHANGE TECHNICIAN due to chronic procedure are in hepatitis C the results infection (HCC) section. Screening for cancer Encephalopathy HEPATIC FUNCTION Routine 08/10/2018 3:45 Hepatic cirrhosis Results for this PANEL PM OIL CHANGE TECHNICIAN due to chronic procedure are in hepatitis C the results infection (HCC) section. Screening for cancer Encephalopathy BASIC METABOLIC PANEL Routine 08/10/2018 3:45 Hepatic cirrhosis Results for this (7) PM OIL CHANGE TECHNICIAN due to chronic procedure are in hepatitis C the results infection (HCC) section. Screening for cancer Encephalopathy after 01/22/2018 Results CBC with platelet count + automated diff (08/10/2018 3:45 PM OIL CHANGE TECHNICIAN) WBC 5.0 3.5 - 10.5 K/L [facility] RBC 3.39 (L) 3.93 - 5.22 M/L [facility] Hemoglobin 10.7 (L) 11.2 - 15.7 GM/DL [facility] Hematocrit 33.1 (L) 34.1 - 44.9 % [facility] MCV 97.6 (H) 79.4 - 94.8 fL [facility] MCH 31.6 25.6 - 32.2 pg [facility] MCHC 32.3 32.2 - 35.5 GM/DL [facility] RDW 15.0 (H) 11.7 - 14.4 % [facility] Platelets 98 (L) 150 - 450 K/CU MM [facility] MPV 10.0 9.4 - 12.3 fL [facility] nRBC 0 0 - 0 /100 WBC [facility] % Neutros 71 % [facility] % Lymphs 14 % [facility] % Monos 12 % [facility] % Eos 2 % [facility] % Baso 1 % [facility] # Neutros 3.51 1.56 - 6.13 K/L [facility] # Lymphs 0.69 (L) 1.18 - 3.74 K/L [facility] # Monos 0.62 (H) 0.24 - 0.36 K/L [facility] # Eos 0.10 0.04 - 0.36 K/L [facility] # Baso 0.04 0.01 - 0.08 K/L [facility] Immature Granulocytes-Relative 0 0 - 1 % [facility] Specimen Blood Performing Organization Address City/[facility] Phone Number [address] [address] [place] Alpha fetoprotein (AFP), tumor marker (08/10/2018 3:45 PM OIL CHANGE TECHNICIAN) Alpha-Fetoprotein 2.9 <10.0 ng/mL [facility] Specimen Blood Performing Organization Address [facility] Phone Number [address] [address] CENTER Pro-time/INR (08/10/2018 3:45 PM OIL CHANGE TECHNICIAN) Protime 16.5 (H) 11.7 - 14.7 seconds [facility] INR 1.3 <=5.9 [facility] Specimen Blood Narrative Performed At RECOMMENDED COUMADIN/WARFARIN INR THERAPY [facility] RANGES STANDARD DOSE: 2.0 - 3.0 Includes: PROPHYLAXIS for venous thrombosis, systemic embolization; TREATMENT for venous thrombosis and/or pulmonary embolus. HIGH RISK: Target INR is 2.5-3.5 for patients with mechanical heart valves. Performing Organization Address City/[facility] Phone Number [address] [address] [phone] CENTER Ammonia (08/10/2018 3:45 PM OIL CHANGE TECHNICIAN) Ammonia 40 18 - 72 mol/L [facility] Specimen Blood Performing Organization Address [facility] Phone Number [address] [address] C[place] Hepatic function panel (08/10/2018 3:45 PM OIL CHANGE TECHNICIAN) Protein, Total 9.0 (H) 6.0 - 8.3 gm/dL [facility] Albumin 2.8 (L) 3.5 - 5.0 g/dL [facility] Total Bilirubin 1.2 0.2 - 1.2 mg/dL [facility] Bilirubin, Direct 0.7 (H) 0.1 - 0.5 mg/dL [facility] Alkaline Phosphatase 111 40 - 150 U/L [facility] AST 31 5 - 34 U/L [facility] ALT 12 6 - 55 U/L [facility] Specimen Blood Performing Organization Address [place]/[facility] Phone Number [address] [address] [place] Basic Metabolic Panel (08/10/2018 3:45 PM OIL CHANGE TECHNICIAN) Sodium 133 (L) 136 - 145 meq/L [facility] Potassium 4.0 3.5 - 5.1 meq/L [facility] Chloride 100 98 - 107 meq/L [facility] CO2 27 22 - 29 meq/L [facility] BUN 20 7 - 21 mg/dL [facility] Creatinine 1.07 0.57 - 1.25 mg/dL [facility] Glucose 71 70 - 105 mg/dL [facility] Calcium 9.4 8.4 - 10.2 mg/dL [facility] EGFR 49Comment: ESTIMATED GFR IS mL/min/1.73 sq m [facility] NOT ACCURATE [facility] CLEARANCE IN PREDICTING GLOMERULAR FILTRATION RATE. ESTIMATED GFR IS NOT APPLICABLE FOR DIALYSIS PATIENTS. Specimen Blood Performing Organization Address [place]/[facility] Phone Number [address] [place] [address] CENTER after 01/22/2018 Insurance Payer Benefit Plan / Group Subscriber ID Type Phone Address MEDICARE MEDICARE A B xxxxxxxxxxx Medicare MCR GENERIC MEDICARE xxxxxxxxx [employer] SUPPLEMENT/INDIVIDUAL SUPPLEMENT
--- OUTSIDE RECORDS SUMMARY | 2019-01-23 08:11 | XMS REPORT | Continuity of Care Document ---
[...] DX:153.9=ADENOCARC 014 [place] INOMA V10.05 Active 014 [facility] Umbilical Active Problem 04/24/2017 Data migrated hernia<sup>2</sup> 014 from [facility] Centricity on 01/28/15. Umbilical Active Problem 01/17/2018 Data migrated Medical hernia<sup>5</sup> 014 from [facility] Centricity on [facility] 01/28/15. UMB HERNIA WITHOUT Active Condition 04/27/2014 Medical MENTION 014 Group OBSTRUCTION/GANGRE NE LARGE INTESTINE Active Condition 04/27/2014 Medical CANCER 012 Group SCREENING FOR Active Condition 04/27/2014 [facility] COLON CANCER 012 Group Carcinoma of Active Problem 01/17/2018 Data migrated ascending 011 from [facility] colon<sup>1</sup> Centricity on [facility] 01/28/15. Group CARCINOMA, Active Condition 04/27/2014 [facility] ASCENDING COLON 011 Group Cancer of colon Active Problem 01/17/2018 011 [facility] CH - Chronic Active Problem 04/24/2017 hepatitis [facility] DVT (<span Resolved Problem 04/24/2017 ID="[id number]">C [facility] onfirmed</span>) Bronchitis Resolved Problem 01/17/2018 [facility] CAD - Coronary Active Problem 01/17/2018 artery disease [facility] CH - Chronic Active Problem 01/17/2018 blood Medical hepatitis<sup>2</s transfusion Group, up> 1965 [facility] Chemotherapy Resolved Problem 01/17/2018 [facility] 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 [facility] Cirrhosis of liver Active Problem 01/17/2018 [facility] Colon cancer Resolved Problem 01/17/2018 [facility] DVT (<span Resolved Problem 01/17/2018 1966 Medical ID="[id number]">C Group, onfirmed</span>)<s [place] up>3, 4</sup> SOB on Active Problem 01/17/2018 Medical exertion(<span Group, ID="[id number]"> [place] Confirmed</span>) Esophageal varices Active Problem 01/17/2018 [facility] Hepatitis C Active Problem 01/17/2018 [facility] Hernia repair Resolved Problem 01/17/2018 [facility] History of colon Active Problem 01/17/2018 cancer [facility] Incisional hernia Active Problem 01/17/2018 [facility] Kidney stones Active Problem 01/17/2018 Medical Group,[facility] Neuropathy Active Problem 01/17/2018 [facility] Pneumonia Active Problem 01/17/2018 [facility] Recurrent UTI Active Problem 01/17/2018 Medical Group Unspecified Active Diagnosis 08/26/2015 2..1. infectious disease [id number] 1. Bacterial Active Diagnosis 08/26/2015 2.0.1. infection [id number] 1. Other Active Diagnosis 08/26/2015 2.0.1. encephalopathy [id number] 1. Esophageal varices Active Diagnosis 08/26/2015 2.16840.1. [id number] 1. Hepatic cirrhosis Active Diagnosis 08/26/2015 2.16840.1. [id number] 1. UTI Active Problem 08/26/2015 2.16.840.1. 193980.4.39 1.11.03589 MALIGNANT MIGEL Active MH COLON NOS [facility] 153.9 Active MH [facility] HEPATOPULMONARY Active MH SYNDROME [facility] HX OF COLONIC Active MH MALIGNANCY [facility] URIN TRACT Active MH INFECTION NOS [facility] INCISIONAL HERNIA Active MH [facility] MALIGNANT NEOPLASM Active MH OF COLON, [facility] UNSPECIFIED PERSONAL HISTORY Active MH OF MALIGNANT [facility] NEOPLASM O CALCULUS OF KIDNEY Active MH [facility] Medications Medication Details Route Status Patient Ordering Order Source Instructions Provider Date Acetaminophen 2 tab, PO, Active 300 MG / Q6H, PRN 2016 [facility] Codeine Pain, X 7 Phosphate 30 MG day, # 56 Oral Tablet tab, 0 [Tylenol with Refill(s) Codeine #3] esmolol (ANES) Route: IV, Inactive Drug form: 2016 [facility] INJ, ONCE, Stop date: 08/03/17 13:22:00 [facility] ondansetron Route: IV, Inactive (ANES) Drug form: 2016 [facility] INJ, ONCE, Stop date: 08/03/17 13:07:00 [facility] propofol (ANES) Route: IV, Inactive Drug form: 2016 [facility] INJ, ONCE, Stop date: 08/03/17 13:07:00 [facility] lidocaine Route: IV, Inactive (ANES) Drug form: 2016 [facility] INJ, ONCE, Stop date: 08/03/17 13:07:00 [facility] ciprofloxacin Route: IV, Inactive (ANES) Drug form: 2016 [facility] INJ, ONCE, Stop date: 08/03/17 13:07:00 LACE W[facility] dexamethasone Route: IV, Inactive (ANES) Drug form: 2016 [facility] INJ, ONCE, Stop date: 08/03/17 13:07:00 LACE WINDER fentaNYL (ANES) Route: IV, Inactive Drug form: 2016 [facility] INJ, ONCE, Stop date: 08/03/17 13:02:00 [facility] Calcium 1,000 mL, Inactive Chloride 0.0014 Rate: 25 2016 MEQ/ML / ml/hr, Infuse Potassium over: 40 hr, Chloride 0.004 Route: IV, MEQ/ML / Sodium Dosing Weight Chloride 0.103 74.091 kg, MEQ/ML / Sodium Total Volume: Lactate 0.028 1,000, Start MEQ/ML date: Injectable 08/03/17 Solution 12:12:00 LACE WINDER, Duration: 30 day, Stop date: 09/02/17 12:11:00 [facility], 1.86, m2 vancomycin Route: IV, Inactive (ANES) 1000 mg Drug form: 2016 [facility] INJ, Start date: 08/03/17 12:10:00 LACE WINDER, Stop date: 08/03/17 13:10:00 [facility] Lactated Route: IV, Inactive Ringers Total Volume: 2016 [facility] Injection IV 1,000, Start (ANES) 1000 mL date: 08/03/17 12:10:00 LACE WINDER, Stop date: 08/03/17 13:10:00 [facility] Ceftriaxone 1 gm, Route: No Longer IVPB, Q12H, Active 2016 [facility] Dosing Weight 74.091, kg, Start date: 08/02/17 21:00:00 LACE WINDER, Duration: 24 hr, Stop date: 08/03/17 9:00:00 [facility], ABX Indication: Urinary Tract Infection phenylephrine Route: IV, Inactive (ANES) Drug form: 2016 [facility] INJ, ONCE, Stop date: 04/21/17 10:51:00 CDT ondansetron Route: IV, Inactive (ANES) Drug form: 2016 [facility] INJ, ONCE, Stop date: 04/21/17 10:41:00 CDT dexamethasone Route: IV, Inactive (ANES) Drug form: 2016 [facility] INJ, ONCE, Stop date: 04/21/17 10:41:00 CDT ceFAZolin Route: IV, Inactive (ANES) Drug form: 2016 [facility] INJ, ONCE, Stop date: 04/21/17 10:41:00 CDT lidocaine Route: IV, Inactive (ANES) Drug form: 2016 [facility] INJ, ONCE, Stop date: 04/21/17 10:41:00 CDT propofol (ANES) Route: IV, Inactive Drug form: 2016 [facility] INJ, ONCE, Stop date: 04/21/17 10:41:00 CDT fentaNYL (ANES) Route: IV, Inactive Drug form: 2016 [facility] INJ, ONCE, Stop date: 04/21/17 10:41:00 CDT acetaminophen Route: IV, Inactive (ANES) (ANES) Drug form: 2016 [facility] INJ, Start date: 04/21/17 10:35:00 CDT, Stop date: 04/21/17 11:35:00 CDT sodium chloride Route: IV, Inactive 0.9% 500 ml INJ Total Volume: 2016 [facility] (ANES) 500, Start date: 04/21/17 10:08:00 CDT, Stop date: 04/21/17 11:08:00 CDT Calcium 1,000 mL, Inactive Chloride 0.0014 Rate: 25 2016 [facility] MEQ/ML / ml/hr, Infuse Potassium over: 40 hr, Chloride 0.004 Route: IV, MEQ/ML / Sodium Dosing Weight Chloride 0.103 74.545 kg, MEQ/ML / Sodium Total Volume: Lactate 0.028 1,000, Start MEQ/ML date: Injectable 04/21/17 Solution 9:53:00 CDT, Duration: 30 day, Stop date: 05/21/17 9:52:00 CDT Ocuvite 1 tab, PO, Active Daily, 0 2016 [facility] Refill(s) Furosemide 40 40 mg=1 tab, Active MG Oral Tablet PO, Daily, 0 2016 [facility] Refill(s) Vitamin D3 2000 2,000 Active intl units oral IntlUnit=1 2016 [facility] tablet tab, PO, Daily, 0 Refill(s) Albuterol 0.833 3 mL, Route: Inactive MG/ML / NEB, Drug 2016 [facility] Ipratropium Form: SOLN, Lawrence 0.167 Dosing Weight MG/ML Inhalant 76.364, kg, Solution ONCE, STAT, Start date: 02/23/17 9:22:00 CDT, Stop date: 02/23/17 9:22:00 CDTNotes: (Same as: Nolbertob) Sodium Chloride 500 mL, Rate: Inactive 0.154 MEQ/ML 25 ml/hr, 2016 [facility] Injectable Infuse over: Solution 20 hr, Route: IV, Dosing Weight 76.364 kg, Total Volume: 500, Start date: 02/23/17 9:22:00 CDT, Duration: 1 day, Stop date: 02/24/17 9:21:00 CDT Lasix 20 mg, 1 tab, No Longer Route: PO, Active 2014 [facility] Drug form: TAB, Daily, Dosing Weight 73.295, kg, Start date: 08/08/15 9:00:00, Duration: 30 day, Stop date: 09/06/15 9:00:00Notes: (Same as: Lasix) May cause GI upset. Give with food or milk. Spironolactone 12.5 mg, 0.5 No Longer tab, Route: Active 2014 [facility] PO, Drug form: TAB, Daily, Dosing [...] 20 mL, Route: Inactive IVP, Start 2014 [facility] date: 08/07/15 12:19:00, Duration: 30 day, Stop date: 09/06/15 12:18:00, PRN Line FlushNotes: preservative free. sodium chloride 10 mL, Route: Inactive IVP, Start 2014 [facility] date: 08/07/15 12:18:00, Duration: 30 day, Stop date: 09/06/15 12:17:00, PRN Line FlushNotes: preservative free. ciprofloxacin 500 mg=1 tab, Active 500 mg oral PO, Q12H, X 2014 [facility] tablet 10 day, # 20 tab, 0 Refill(s) Cephalexin 500 500 mg=1 cap, Inactive MG Oral Capsule PO, TID, X 10 2014 [Keflex] day, # 30 cap, 0 Refill(s) Docusate Sodium 100 mg, 1 Inactive 100 MG Oral cap, Route: 2014 [facility] Capsule PO, Drug [Colace] form: CAP, Daily, Dosing Weight 73.295, kg, PRN Constipation, Start date: 08/07/15 11:09:00, Duration: 30 day, Stop date: 09/06/15 11:08:00Notes : (Same as: Colace) (Do Not Crush) Ibuprofen 400 mg, 1 Inactive tab, Route: 2014 [facility] PO, Drug form: TAB, ONCE, Dosing Weight 73.295, kg, PRN Headache 1-5, Start date: 08/06/15 21:10:00, Stop date: 08/06/15 21:10:00Notes : (Same as: Motrin) "Do Not Crush" Give with food. Lasix PO, Daily, 0 Active Refill(s) 2014 [facility] Rocephin 1 gm, Route: No Longer IVPB, Active 2014 [facility] [id number], Dosing Weight 73.295, kg, Start date: 08/06/15 9:00:00, Duration: 30 day, Stop date: 09/04/15 9:00:00Notes: (Same As: Rocephin). Use with 100 mL NS and infuse over 30 min MEDICATION WASTE Product Size: 1000 mg Product Wasted: ___ mg Lactulose 10 gm, 15 ml, Inactive Route: PO, 2014 [facility] Drug Form: SYRP, Dosing Weight 73.295, kg, ONCE, Start date: 08/06/15 3:49:00, Stop date: 08/06/15 3:49:00Notes: (Same as:Chronulac) Ondansetron 4 mg, 2 mL, No Longer Route: IVP, Active 2014 [facility] Drug form: INJ, Q6H, Dosing Weight 73.636, kg, PRN Nausea & Vomiting, Start date: 08/06/15 3:29:00, Duration: 30 day, Stop date: 09/05/15 3:28:00Notes: (Same as: Clint) MEDICATION WASTE Product Size: 4 mg Product Wasted: ___ mg Acetaminophen 325 mg, 1 No Longer tab, Route: Active 2014 [facility] PO, Drug form: TAB, Q4H, Dosing Weight 73.636, kg, PRN Pain Score 4-6, Start date: 08/06/15 3:29:00, Duration: 30 day, Stop date: 09/05/15 3:28:00Notes: Do not exceed 4 gm/day. (Same as: Tylenol) Morphine 2 mg, Route: No Longer IVP, Q4H, Active 2014 [facility] Dosing Weight 73.636, kg, PRN Pain Score 7-10, Start date: 08/06/15 3:29:00, Duration: 30 day, Stop date: 09/05/15 3:28:00 Aspirin 325 mg, 1 No Longer tab, Route: Active 2014 [facility] PO, Drug form: ECTAB, Q24H, Dosing Weight 73.636, kg, Start date: 08/06/15 3:00:00, Duration: 30 day, Stop date: 09/04/15 3:00:00Notes: (Do Not Crush) Do not crush or chew. Saline Flush 10 mL, Route: No Longer 0.9% IVP, Drug Active 2014 [facility] Form: INJ, Dosing Weight 75.455, kg, PRN, PRN Line Flush, Start date: 08/05/15 19:05:00, Duration: 30 day, Stop date: 09/04/15 19:04:00Notes : (Same as: BD Posiflush) Docusate Sodium 100 mg=1 cap, Active 100 MG Oral PO, Daily, as 2013 [facility] Capsule needed for [Colace] constipation, # 20 cap, 0 Refill(s) gabapentin 300 300 mg=1 cap, Active MG Oral Capsule PO, BID, # 90 2013 [facility] cap, 0 Refill(s) tramadol 50 mg=1 tab, Active hydrochloride PO, Q6H, 2013 [facility] 50 MG Oral Pain, # 40 Tablet tab, 0 Refill(s) Ibuprofen 400 400 mg, 1 No Longer MG Oral Tablet tab, Route: Active 2013 [facility] PO, Drug form: TAB, Q6H, Dosing [...] 0.5 No Longer mL, Route: Active 2013 [facility] IV, Drug form: INJ, Q2H, PRN Pain, Start date: 04/18/14 17:55:00, Duration: 30 day, Stop date: 05/18/14 17:54:00 Ibuprofen 600 mg, Inactive Route: PO, 2013 Q6H, Dosing Weight 64.545, kg, PRN as needed for pain, Start date: 04/18/14 17:02:00, Duration: 30 day, Stop date: 05/18/14 17:01:00 Docusate Sodium 100 mg, 1 No Longer 100 MG Oral cap, Route: Active 2013 [facility] Capsule PO, Drug form: CAP, BID, Dosing Weight 64.545, kg, Start date: 04/18/14 17:00:00, Duration: 30 day, Stop date: 05/18/14 9:00:00Notes: (Same as: Colace) (Do Not Crush) Ofirmev 1,000 mg, 100 Inactive mL, Route: 2013 [facility] IV, Drug form: INJ, Q6H, Dosing Weight 65.909, kg, for > or=50 kg, Start date: 04/18/14 12:00:00, Duration: 1 day, Stop date: 04/19/14 6:00:00Notes: Infuse over 15 minutes Do not exceed 4gm/day of acetaminophen Saline Flush 5 ml, Route: No Longer 0.9% IVP, Drug Active 2013 [facility] Form: INJ, Dosing Weight 64.545, kg, PRN, PRN Line Flush, Start date: 04/18/14 10:16:00, Duration: 30 day, Stop date: 05/18/14 10:15:00Notes : Same as: BD Posiflush Sterile Sodium Chloride 1,000 mL, No Longer 0.154 MEQ/ML Rate: 125 Active 2013 [facility] Injectable ml/hr, Infuse Solution over: 8 hr, Route: IV, Dosing Weight 64.545 kg, Total Volume: 1,000, Start date: 04/18/14 10:16:00, Duration: 30 day, Stop date: 05/18/14 10:15:00 Ondansetron 4 mg, 2 mL, No Longer Route: IVP, Active 2013 [facility] Drug form: INJ, Q6H, Dosing Weight 64.545, kg, PRN Nausea & Vomiting, Start date: 04/18/14 10:16:00, Duration: 30 day, Stop date: 05/18/14 10:15:00Notes : (Same as: Zofran) Acetaminophen 1 tab, Route: Inactive 325 MG / PO, Drug 2013 [facility] Hydrocodone Form: TAB, Bitartrate 5 MG Dosing Weight Oral Tablet 65.909, kg, Q4H, PRN Pain Score 1-3, Start date: 04/18/14 10:16:00, Duration: 30 day, Stop date: 05/18/14 10:15:00Notes : (Same as: [place] 325/5) Do not exceed 4gm/day of acetaminophen . Cefoxitin 2 gm, Route: No Longer IVPB, ONCALL, Active 2013 [facility] Dosing Weight 64.545, kg, Start date: 04/13/14 13:00:00, Duration: 30 day, Stop date: 05/13/14 12:59:00Notes : (Same As: Mefoxin) Naloxone 0.1 mg, Inactive Route: IVP, 2013 [facility] Q2MIN, Dosing Weight 65.909, kg, PRN Narcotic Reversal, Start date: 03/13/14 11:16:00, Duration: 4 doses or times, Stop date: Limited # of times Flumazenil 0.2 mg, Inactive Route: IVP, 2013 [facility] PRN, Dosing Weight 65.909, kg, PRN Other -See Comment, Start date: 03/13/14 11:16:00, Duration: 1 doses or times, Stop date: Limited # of times Sodium Chloride 1,000 mL, Inactive 0.154 MEQ/ML Rate: 25 2013 [facility] Injectable ml/hr, Infuse Solution over: 40 [...] 1 tablet Orally Active 20 mg Orally [facility] 2.16.840.1 daily .387321.4. [id number] 68 Gabapentin 1 capsule Orally Active 300 MG Orally Jus 2.16.840.1 twice a day .257557.4. (bid) 68 B-12 Unknown Sublingual Active 2500 MCG Jus 2.16.840.1 Sublingual .853843.4. 68 Ocuvite 1 tablet Orally Active Orally daily Jus 2.16.840.1 .208052.4. 68 Lasix 1 tablet Orally Active 40 MG Orally Jus 2.16.840.1 Once a day .668394.4. 68 Ciprofloxacin 5 ml Orally Active 500 MG/5ML Jus 2.840.1 (10%) Orally .615818.4. Twice a day 68 Spironolactone 1 tablet Orally Active 25 MG Orally Jus 2.16.840.1 daily .798389.4. 68 Caltrate 600+D 1 tablet with Orally Active 600-400 Jus 2.840.1 food MG-UNIT .729465.4. Orally Once a day Allergies, Adverse Reactions, Alerts Substance Category Reaction Severity Reaction Status Date Comments Source type Reported MORPHINE Drug MORPHINE allergy 2 [facility] morphine<s Assertion Drug Active Data up>1</sup> allergy 2 migrated [place] from [facility] on 12/27/14. Originally documented as MORPHINE. Hallucinatio ns Adhesive Adverse rash Adverse Active 2.16.840. Tape Reaction Reaction 5 1.335453. 4.391 Morphine Adverse Info Not Adverse Active 2.16.840. Sulfate Reaction Available Reaction 5 1.942139. 4.391 morphine Assertion Drug Active allergy [place] [...] Lymphocytes 36.1 % 20.0 - 08/03 40.0 [facility] HEMATOLOGY Eosinophils 1.2 % 0.0 - 4.0 08/03 [facility] HEMATOLOGY Monocytes 5.4 % 2.0 - 12.0 08/03 [facility] HEMATOLOGY Basophils 0.6 % 0.0 - 1.0 08/03 [facility] HEMATOLOGY Segs 56.7 % 45.0 - 08/03 75.0 /2016 [facility] HEMATOLOGY Monocytes # 0.2 K/CMM 0.0 - 0.8 08/03 [facility] HEMATOLOGY Lymphocytes 1.0 K/CMM 1.0 - 5.5 08/03 [facility] HEMATOLOGY Segs-Bands # 1.6 K/CMM 1.5 - 8.1 08/03 [facility] HEMATOLOGY MPV 9.2 fL 7.4 - 10.4 08/03 [facility] HEMATOLOGY RDW 16.5 % 11.5 - 08/03 14.5 [facility] HEMATOLOGY Platelet 62 K/CMM 133 - 450 08/03 [facility] HEMATOLOGY Hct 39.3 % 36.0 - 08/03 MH 48.0 /2017 [facility] HEMATOLOGY Hgb 13.2 g/dL 12.0 - 08/03 MH 16.0 /2016 [facility] HEMATOLOGY RBC 4.14 M/CMM 4.20 - 08/03 MH 5.40 /2016 [facility] HEMATOLOGY MCH 31.9 pg 27.0 - 08/03 MH 31.0 /2016 [facility] HEMATOLOGY MCV 95.1 fL 80.0 - 08/03 MH 98.0 /2016 [facility] MCHC 33.6 g/dL 32.0 - 08/03 MH 36.0 /2016 [facility] HEMATOLOGY WBC 2.8 K/CMM 3.7 - 10.4 08/03 MH [facility] Renal Renal Patient Name: EDGARD DÍAZ 08/03 - pyelogram pyelogram /2016 - [facility] retrograde retrograde : 1930; Age: 86 years Female DX DX MR: [id number] Read by: Thelma Chopra MD Dictated Date/time: 08/03/17 18:54 Study: Renal pyelogram retrograde DX 08/03/2017 3:09 PM [facility] Electronically Signed by: Thelma Chopra MD 08/03/17 [...] is not recommended in the following populations: [facility] 3m2 Individuals with unstable creatinine concentrations, [...] Globulin 4.6 g/dL 2.7 - 4.2 08/02 [facility] HEMATOLOGY RBC 3.92 M/CMM 4.20 - 12/ MH 5.40 [facility] HEMATOLOGY WBC 5.1 K/CMM 3.7 - 10.4 08/02 [facility] HEMATOLOGY Hgb 12.3 g/dL 12.0 - 08/02 16.0 /2016 [facility] HEMATOLOGY RDW 15.9 % 11.5 - 12/ MH 14.5 /2016 [facility] MCHC 33.4 g/dL 32.0 - 12/ MH 36.0 /2016 [facility] MCH 31.3 pg 27.0 - 12/ MH 31.0 [facility] Hct 36.7 % 36.0 - 12/ MH 48.0 /2016 [facility] HEMATOLOGY MCV 93.6 fL 80.0 - 12/ MH 98.0 /2016 [facility] HEMATOLOGY MPV 8.9 fL 7.4 - 10.4 12/ /2016 [facility] Platelet 82 K/CMM 133 - 450 12/ [facility] HEMATOLOGY INR 1.49 0.85 - 08/02 MH 1.17 /2016 [facility] HEMATOLOGY PT 18.1 s 12.0 - 08/02 14.7 [facility] PTT 33.0 s 22.9 - 08/02 35.8 [facility] HEMATOLOGY Segs-Bands # 2.6 K/CMM 1.5 - 8.1 08/02 [facility] HEMATOLOGY Basophils 0.8 % 0.0 - 1.0 / /2016 [facility] HEMATOLOGY Lymphocytes 1.8 K/CMM 1.0 - 5.5 / MH # /2017 [facility] HEMATOLOGY Eosinophils 0.2 K/CMM 0.0 - 0.5 / MH # /2016 [facility] HEMATOLOGY Monocytes # 0.5 K/CMM 0.0 - 0.8 08/02 [facility] HEMATOLOGY Segs 51.3 % 45.0 - 12/ MH 75.0 [facility] HEMATOLOGY Monocytes 10.3 % 2.0 - 12.0 / [facility] HEMATOLOGY Lymphocytes 34.4 % 20.0 - 12/ MH 40.0 /2016 [facility] HEMATOLOGY Eosinophils 3.2 % 0.0 - 4.0 08/02 [facility] ELECTROLYT AGAP 14.3 meq/L 10.0 - 04/13 ES 20.0 /2016 [facility] ELECTROLYT eGFR 46 04/13 Result Comment: [...] is not recommended in the following populations: [facility] 3m2 Individuals with unstable creatinine concentrations, [...] 0.50 - 04/13 ES Lvl 1.40 /2016 [facility] ELECTROLYT BUN 13 mg/dL 7 - 22 04/13 [facility] ELECTROLYT Potassium 4.3 meq/L 3.5 - 5.1 04/13 ES Lvl /2016 [facility] ELECTROLYT Sodium Lvl 142 meq/L 135 - 145 04/13 [facility] ELECTROLYT Chloride Lvl 107 meq/L 95 - 109 04/13 [facility] ELECTROLYT CO2 25 meq/L 24 - 32 04/13 [facility] ELECTROLYT Calcium Lvl 9.3 mg/dL 8.5 - 10.5 04/13 [facility] ELECTROLYT Glucose Lvl 101 mg/dL 70 - 99 04/13 [facility] HEMATOLOGY Eosinophils 0.2 K/CMM 0.0 - 0.5 04/13 MH # /2017 [facility] HEMATOLOGY Basophils # 0.1 K/CMM 0.0 - 0.2 04/13 [facility] HEMATOLOGY Monocytes # 0.6 K/CMM 0.0 - 0.8 04/13 [facility] HEMATOLOGY Lymphocytes 1.8 K/CMM 1.0 - 5.5 04/13 [facility] HEMATOLOGY Segs-Bands # 3.0 K/CMM 1.5 - 8.1 04/13 [facility] HEMATOLOGY Basophils 0.9 % 0.0 - 1.0 04/13 [facility] HEMATOLOGY Monocytes 10.4 % 2.0 - 12.0 04/13 [facility] HEMATOLOGY Eosinophils 3.0 % 0.0 - 4.0 04/13 [facility] HEMATOLOGY Segs 53.7 % 45.0 - 04/13 75.0 /2017 [facility] HEMATOLOGY Lymphocytes 32.0 % 20.0 - 04/13 MH 40.0 /2016 [facility] HEMATOLOGY INR 1.27 0.85 - 04/13 MH 1.17 /2016 [facility] HEMATOLOGY PT 16.2 s 12.0 - 04/13 14.7 [facility] MPV 8.9 fL 7.4 - 10.4 04/13 [facility] RDW 15.4 % 11.5 - 04/13 14.5 [facility] Platelet 79 K/CMM 133 - 450 04/13 [facility] MCH 32.2 pg 27.0 - 08 31.0 /2016 [facility] MCHC 33.3 g/dL 32.0 - 04/13 36.0 /2016 [facility] RBC 4.00 M/CMM 4.20 - 04/13 5.40 /2016 [facility] MCV 96.5 fL 80.0 - 04/13 98.0 /2016 [facility] Hct 38.6 % 36.0 - 04/13 48.0 [facility] Hgb 12.9 g/dL 12.0 - 04/13 16.0 [facility] WBC 5.6 K/CMM 3.7 - 10.4 04/13 [facility] PTT 28.2 s 22.9 - 04/13 35.8 [facility] PET CT PET CT Patient Name: EDGARD DÍAZ 03/04 - Colorectal Colorectal /2016 - [facility] [place] restaging : 1930; Age: 86 years y/o Female restaging MR: [id number] Read by: Williams Reynolds MD Dictated Date/time: [...] urinary bladder suspicious for chronic cystitis. SL: [id number] ELECTROLYT AGAP 7.1 meq/L 10.0 - 02/16 ES 20.0 [facility] ELECTROLYT eGFR 54 02/16 Result Comment: The eGFR is calculated using the CKD-EPI formula. In most young, healthy individuals the eGFR will be >90 mL/ min/1.73m2. The eGFR declines with age. An eGFR of 60-89 may be normal in [facility] mL/min/1.7 some populations, particularly the elderly, for whom the CKD-EPI formula has not been extensively validated. Use of the eGFR is not recommended in the following populations: [facility] 3m2 Individuals with unstable creatinine concentrations, [...] 8.8 mg/dL 8.5 - 10.5 02/16 ES [facility] ELECTROLYT Chloride Lvl 107 meq/L 95 - 109 02/16 ES [facility] ELECTROLYT CO2 30 meq/L 24 - 32 02/16 ES [facility] ELECTROLYT Potassium 4.1 meq/L 3.5 - 5.1 02/16 ES Lvl [facility] ELECTROLYT Glucose Lvl 75 mg/dL 70 - 99 02/16 ES [facility] ELECTROLYT BUN 11 mg/dL 7 - 22 02/16 ES [facility] ELECTROLYT Creatinine 0.95 mg/dL 0.50 - 02/16 ES Lvl 1.40 /2016 [facility] ELECTROLYT Sodium Lvl 140 meq/L 135 - 145 02/16 [facility] HEMATOLOGY Hgb 13.0 g/dL 12.0 - 02/16 MH 16. [facility] HEMATOLOGY Hct 38.8 % 36.0 - 02/16 MH 48.0 [facility] TUMOR CEA 11.8 ng/mL 0.0 - 3.0 02/16 [facility] CHEM PANEL A/G Ratio 0.6 0.7 - 1.6 08/07 [facility] CHEM PANEL AGAP 11.9 meq/L 10.0 - 08/07 MH 20. [facility] CHEM PANEL Globulin 4.1 g/dL 2.0 - 4.0 08/07 [facility] CHEM PANEL B/C Ratio 15 6 - 25 08/07 [facility] CHEM PANEL eGFR 61 08/07 Result [...] is not recommended in the following populations: [facility] 3m2 Individuals with unstable creatinine concentrations, [...] CO2 25 meq/L 24 - 32 08/07 [facility] CHEM PANEL Chloride Lvl 106 meq/L 95 - 109 08/07 [facility] CHEM PANEL Calcium Lvl 8.5 mg/dL 8.5 - 10.5 08/07 [facility] CHEM PANEL Albumin Lvl 2.5 g/dL 3.5 - 5.0 08/07 [facility] CHEM PANEL Total 6.6 g/dL 6.4 - 8.4 08/07 [facility] CHEM PANEL ALT 20 unit/L 0 - 65 08/07 [facility] CHEM PANEL AST 26 unit/L 0 - 37 08/07 [facility] CHEM PANEL Alk Phos 109 unit/L 39 - 136 08/07 [facility] CHEM PANEL Bili Total 1.2 mg/dL 0.2 - 1.3 08/07 [facility] CHEM PANEL Potassium 3.9 meq/L 3.5 - 5.1 08/07 Lvl [facility] CHEM PANEL Sodium Lvl 139 meq/L 135 - 145 08/07 [facility] CHEM PANEL Creatinine 0.88 mg/dL 0.50 - 12 MH Lvl 1.40 [facility] CHEM PANEL Glucose Lvl 120 mg/dL 70 - 99 08/07 [facility] CHEM PANEL BUN 13 mg/dL 7 - 22 08/07 [facility] CHEM PANEL Magnesium 1.9 mg/dL 1.8 - 2.4 08/07 l /2014 [facility] HEMATOLOGY MPV 8.8 fL 7.4 - 10.4 08/07 [facility] HEMATOLOGY Platelet 54 K/CMM 133 - 450 08/07 [facility] HEMATOLOGY MCHC 33.1 g/dL 32.0 - 08/07 36.0 /2014 [facility] HEMATOLOGY RDW 14.7 % 11.5 - 08/07 MH 14.5 [facility] HEMATOLOGY MCV 97.0 fL 80.0 - 08/07 98.0 /2014 [facility] HEMATOLOGY MCH 32.1 pg 27.0 - 08/07 MH 31.0 /2014 [facility] HEMATOLOGY RBC 3.54 M/CMM 4.20 - 08/07 MH 5.40 /2014 [facility] HEMATOLOGY WBC 3.6 K/CMM 3.7 - 10.4 08/07 [facility] HEMATOLOGY Hct 34.3 % 36.0 - 08/07 48.0 /2014 [facility] HEMATOLOGY Hgb 11.4 g/dL 12.0 - 08/07 16.0 [facility] HEMATOLOGY Monocytes # 0.2 K/CMM 0.0 - 0.8 08/07 [facility] HEMATOLOGY Eosinophils 1.3 % 0.0 - 4.0 08/07 [facility] HEMATOLOGY Monocytes 7.0 % 2.0 - 12.0 08/07 [facility] HEMATOLOGY Lymphocytes 1.1 K/CMM 1.0 - 5.5 08/07 /2014 [facility] HEMATOLOGY Basophils 0.6 % 0.0 - 1.0 08/07 [facility] HEMATOLOGY Segs-Bands # 2.2 K/CMM 1.5 - 8.1 08/07 [facility] HEMATOLOGY Segs 61.3 % 45.0 - 08/07 75.0 [facility] HEMATOLOGY Lymphocytes 29.8 % 20.0 - 08/07 MH 40.0 [facility] URINE AND UA Nitrite Negative Negative 08/06 [facility] (08/06/15 3:01 PM) URINE AND UA Leuk Est Large Negative 08/06 *ABN* (08/06/15 3:01 PM) URINE AND UA Blood Moderate Negative 08/06 [facility] *ABN* (08/06/15 3:01 PM) URINE AND UA Bili Negative Negative 08/06 [facility] *NA* (08/06/15 3:01 PM) URINE AND UA >=8.0 0.1 - 1.0 08/06 [facility] Urobilinogen [facility] *ABN* (08/06/15 3:01 PM) URINE AND UA Color Yellow Yellow 08/06 STOOL [facility] *NA* (08/06/15 3:01 PM) URINE AND UA Turbidity Cloudy Clear 08/06 [facility] *ABN* (08/06/15 3:01 PM) URINE AND UA Glucose Negative Negative 08/06 [facility] (08/06/15 3:01 PM) URINE AND UA Ketones Negative Negative 08/06 [facility] *NA* (08/06/15 3:01 PM) URINE AND UA Spec Grav 1.015 <=1.030 08/06 [facility] URINE AND UA pH 6.5 5.0 - 8.0 08/06 STOOL [facility] URINE AND UA Protein 30 mg/dL Negative 08/06 [facility] mg/dL [facility] URINE AND UA Sq Epi Few /LPF Few /LPF 08/06 STOOL [facility] URINE AND UA [place] Yeast Many /HPF None Seen 08/06 [facility] /HPF /2014 [facility] URINE AND UA WBC null 0 - 5 08/06 URINE AND UA RBC 17 /HPF 0 - 2 08/06 [facility] Carotid Carotid CAROTID DOPPLER 08/06 - artery artery /2014 - [facility] Doppler Doppler bilat US bilat US [...] Occasional None Seen 08/06 [facility] /HPF /HPF [facility] URINE AND UA Mucus Few /LPF None Seen 08/06 [facility] /LPF [facility] URINE AND UA Bacteria Moderate None Seen 08/06 [facility] /HPF /HPF /2014 URINE AND UA WBC null 0 - 5 08/06 [facility] URINE AND UA Sq Epi Moderate Few /LPF 08/06 [facility] /LPF URINE AND UA RBC 13 /HPF 0 - 2 08/06 STOOL [facility] URINE AND UA Nitrite Negative Negative [...] UA Spec Grav 1.015 <=1.030 08/06 STOOL [facility] URINE AND UA Turbidity Slight Cloudy Clear 08/06 STOOL [facility] (08/05/15 10:40 PM) URINE AND UA Color Yellow Yellow 08/06 STOOL [facility] *NA* (08/05/15 10:40 PM) URINE AND UA Protein Negative Negative 08/06 STOOL [facility] (08/05/15 10:40 PM) URINE AND UA pH 6.0 5.0 - 8.0 08/06 STOOL [facility] CARDIAC CK MB 5.3 ng/mL 0.5 - 3.6 08/06 ENZYMES [facility] CARDIAC Total CK 116 unit/L 12 - 191 08/06 ENZYMES [facility] CARDIAC BNP 45 pg/mL <=100 08/06 ENZYMES pg/mL [facility] CARDIAC Troponin-I null 0.00 - 08/06 ENZYMES 0.40 [facility] CARDIAC CK MB Index 4.6 0.0 - 2.5 08/06 ENZYMES [facility] CHEM PANEL Ammonia 47.0 <=45.0 08/06 umol/L uMol/L [facility] CHEM PANEL Alk Phos 118 unit/L 39 - 136 08/06 [facility] CHEM PANEL Total 7.4 g/dL 6.4 - 8.4 08/06 Protein [facility] CHEM PANEL Calcium Lvl 8.5 mg/dL 8.5 - 10.5 08/06 [facility] CHEM PANEL eGFR 67 08/06 Result [...] is not recommended in the following populations: [facility] 3m2 Individuals with unstable creatinine concentrations, [...] Total 1.0 mg/dL 0.2 - 1.3 08/06 [facility] CHEM PANEL A/G Ratio 0.6 0.7 - 1.6 08/06 [facility] CHEM PANEL ALT 21 unit/L 0 - 65 08/06 [facility] CHEM PANEL Albumin Lvl 2.7 g/dL 3.5 - 5.0 08/06 [facility] CHEM PANEL AST 27 unit/L 0 - 37 08/06 [facility] CHEM PANEL AGAP 11.5 meq/L 10.0 - 12 MH 20.0 [facility] CHEM PANEL Globulin 4.7 g/dL 2.0 - 4.0 08/06 [facility] CHEM PANEL B/C Ratio 14 6 - 25 08/06 [facility] CHEM PANEL BUN 11 mg/dL 7 - 22 08/06 [facility] CHEM PANEL Chloride Lvl 106 meq/L 95 - 109 08/06 [facility] CHEM PANEL Creatinine 0.81 mg/dL 0.50 - 08/06 Lvl 1.40 /2014 [facility] CHEM PANEL Potassium 3.5 meq/L 3.5 - 5.1 08/06 Lvl /2014 [facility] CHEM PANEL Sodium Lvl 140 meq/L 135 - 145 08/06 [facility] CHEM PANEL CO2 26 meq/L 24 - 32 08/06 [facility] CHEM PANEL Glucose Lvl 109 mg/dL 70 - 99 08/06 [facility] HEMATOLOGY MPV 9.1 fL 7.4 - 10.4 08/06 [facility] HEMATOLOGY RDW 15.4 % 11.5 - 08/06 14. [facility] HEMATOLOGY Platelet 70 K/CMM 133 - 450 08/06 [facility] HEMATOLOGY MCHC 33.1 g/dL 32.0 - 12 36.0 [facility] HEMATOLOGY MCH 32.1 pg 27.0 - 12 MH 31.0 [facility] HEMATOLOGY MCV 97.2 fL 80.0 - 08/06 98.0 [facility] HEMATOLOGY Hct 36.5 % 36.0 - 12 MH 48.0 [facility] HEMATOLOGY Hgb 12.1 g/dL 12.0 - 12 MH 16.0 [facility] HEMATOLOGY RBC 3.76 M/CMM 4.20 - [...] is not recommended in the following populations: [facility] 3m2 Individuals with unstable creatinine concentrations, [...] Total 0.9 mg/dL 0.2 - 1.3 08/05 [facility] CHEM PANEL Alk Phos 126 unit/L 39 - 136 08/05 [facility] CHEM PANEL Albumin Lvl 2.7 g/dL 3.5 - 5.0 08/05 [facility] CHEM PANEL ALT 22 unit/L 0 - 65 08/05 [facility] CHEM PANEL AST 27 unit/L 0 - 37 08/05 [facility] CHEM PANEL AGAP 11.8 meq/L 10.0 - 08/05 20.0 [facility] CHEM PANEL B/C Ratio 14 6 - 25 08/05 [facility] CHEM PANEL A/G Ratio 0.6 0.7 - 1.6 08/05 [facility] CHEM PANEL Globulin 4.6 g/dL 2.0 - 4.0 08/05 [facility] HEMATOLOGY MPV 8.9 fL 7.4 - 10.4 08/05 [facility] HEMATOLOGY RDW 15.3 % 11.5 - 08/05 MH 14. [facility] HEMATOLOGY Platelet 69 K/CMM 133 - 450 08/05 [facility] HEMATOLOGY Hct 37.6 % 36.0 - 08/05 MH 48.0 [facility] HEMATOLOGY MCHC 32.8 g/dL 32.0 - 08/05 MH 36.0 [facility] HEMATOLOGY Hgb 12.4 g/dL 12.0 - 08/05 MH 16.0 [facility] HEMATOLOGY MCV 96.5 fL 80.0 - 08/05 MH 98.0 [facility] MCH 31.7 pg 27.0 - 08/05 MH 31.0 /2014 [facility] HEMATOLOGY WBC 6.2 K/CMM 3.7 - 10.4 08/05 /2014 [facility] HEMATOLOGY RBC 3.90 M/CMM 4.20 - 08/05 5.40 /2015 [facility] HEMATOLOGY Monocytes # 0.5 K/CMM 0.0 - 0.8 08/05 /2014 [facility] HEMATOLOGY Basophils 0.6 % 0.0 - 1.0 08/05 /2014 [facility] HEMATOLOGY Segs-Bands # 4.2 K/CMM 1.5 - 8.1 08/05 /2014 [facility] HEMATOLOGY Eosinophils 0.1 K/CMM 0.0 - 0.5 08/05 # /2015 [facility] HEMATOLOGY Lymphocytes 1.4 K/CMM 1.0 - 5.5 08/05 # /2015 [facility] HEMATOLOGY Lymphocytes 22.3 % 20.0 - 08/05 40.0 /2014 [facility] HEMATOLOGY Monocytes 7.3 % 2.0 - 12.0 08/05 /2014 [facility] HEMATOLOGY Eosinophils 1.4 % 0.0 - 4.0 08/05 [facility] HEMATOLOGY Segs 68.4 % 45.0 - 08/05 75.0 /2014 [facility] Chest Chest 1view Chest one view: [...] 08/05 - contrast contrast CT /2014 - [facility] CT REASON FOR EXAM: pt from [...] Basophils 0.4 % 0.0 - 1.0 04/19 [facility] HEMATOLOGY Monocytes # 0.9 K/CMM 0.0 - 0.8 04/19 [facility] HEMATOLOGY Lymphocytes 1.0 K/CMM 1.0 - 5.5 04/19 MH # /2013 [facility] HEMATOLOGY Segs-Bands # 4.2 K/CMM 1.5 - 8.1 04/19 [facility] HEMATOLOGY Eosinophils 0.2 K/CMM 0.0 - 0.5 04/19 MH # /2013 [facility] HEMATOLOGY Eosinophils 2.7 % 0.0 - 4.0 04/19 [facility] HEMATOLOGY Monocytes 13.7 % 2.0 - 12.0 04/19 [facility] Lymphocytes 16.6 % 20.0 - 04/19 MH 40.0 /2013 [facility] HEMATOLOGY Segs 66.6 % 45.0 - 04/19 MH 75.0 /2013 [facility] MCHC 33.3 g/dL 32.0 - 04/19 MH 36.0 /2013 [facility] HEMATOLOGY RDW 15.2 % 11.5 - 04/19 MH 14.5 /2013 [facility] HEMATOLOGY MCH 32.3 pg 27.0 - 04/19 MH 31.0 /2013 [facility] HEMATOLOGY MCV 96.9 fL 80.0 - 04/19 MH 98.0 /2013 [facility] HEMATOLOGY Hct 30.1 % 36.0 - 04/19 MH 48.0 [facility] Platelet 67 K/CMM 133 - 450 04/19 [facility] MPV 8.4 fL 7.4 - 10.4 04/19 [facility] Hgb 10.0 g/dL 12.0 - 04/19 MH 16.0 [facility] HEMATOLOGY RBC 3.11 M/CMM 4.20 - 04/19 MH 5.40 /2013 [facility] HEMATOLOGY WBC 6.3 K/CMM 3.7 - 10.4 04/19 [facility] Chest 2 Chest 2 EXAM: Chest 2 views 04/19 - views views /2013 - [facility] DATE: Apr 19, 2014 09:48:02 AM [...] Globulin 4.8 g/dL 2.0 - 4.0 04/13 [facility] CHEM PANEL A/G Ratio 0.6 0.7 - 1.6 04/13 [facility] CHEM PANEL AGAP 13.4 meq/L 10.0 - 04/13 20.0 [facility] CHEM PANEL B/C Ratio 9 6 - 25 04/13 [facility] CHEM PANEL eGFR 59 04/13 1Result [...] is not recommended in the following populations: [facility] 3m2 Individuals with unstable creatinine concentrations, [...] values reflect the clinical guidelines of the [place] [employer]. [facility] CHEM PANEL BUN 8 [...] Total 1.3 mg/dL 0.2 - 1.3 04/13 [facility] CHEM PANEL Total 7.7 g/dL 6.4 - 8.4 04/13 [facility] CHEM PANEL Albumin Lvl 2.9 g/dL 3.5 - 5.0 04/13 [facility] HEMATOLOGY MCH 32.1 pg 27.0 - 04/13 31.0 [facility] HEMATOLOGY RDW 14.6 % 11.5 - 04/13 14.5 [facility] HEMATOLOGY MCHC 33.1 g/dL 32.0 - 04/13 36.0 /2013 [facility] HEMATOLOGY Platelet 76 K/CMM 133 - 450 04/13 [facility] HEMATOLOGY RBC 3.79 M/CMM 4.20 - 04/13 5.40 /2013 [facility] HEMATOLOGY Hct 36.7 % 36.0 - 04/13 48.0 /2013 [facility] HEMATOLOGY MCV 97.0 fL 81.0 - 04/13 99.0 /2013 [facility] HEMATOLOGY Hgb 12.1 g/dL 12.0 - 04/13 16.0 [facility] HEMATOLOGY WBC 4.6 K/CMM 3.7 - 10.4 04/13 [facility] HEMATOLOGY MPV 8.9 fL 7.4 - 10.4 04/13 [facility] HEMATOLOGY Segs 52.6 % 45.0 - 04/13 75.0 /2013 [facility] HEMATOLOGY Monocytes # 0.6 K/CMM 0.0 - 0.8 04/13 [facility] HEMATOLOGY Eosinophils 0.1 K/CMM 0.0 - 0.5 04/13 /2013 [facility] HEMATOLOGY Basophils 1.0 % 0.0 - 1.0 04/13 [facility] HEMATOLOGY Segs-Bands # 2.4 K/CMM 1.5 - 8.1 04/13 [facility] HEMATOLOGY Lymphocytes 1.5 K/CMM 1.0 - 5.5 04/13 /2013 [facility] HEMATOLOGY Lymphocytes 32.1 % 20.0 - 04/13 40.0 [facility] HEMATOLOGY Monocytes 12.2 % 2.0 - 12.0 04/13 [facility] HEMATOLOGY Eosinophils 2.1 % 0.0 - 4.0 04/[address] [facility] PET CT PET CT PET/CT SCAN: 03/24 [facility] Colorectal Colorectal /2013 - [facility] [place] restaging restaging TECHNIQUE: 14 [...] AST 43 unit/L 0 - 37 03/06 [facility] CHEM PANEL Albumin Lvl 2.9 g/dL 3.5 - 5.0 03/06 [facility] CHEM PANEL Total 7.7 g/dL 6.4 - 8.4 03/06 [facility] CHEM PANEL Bili Direct 0.5 mg/dL 0.0 - 0.3 03/06 [facility] CHEM PANEL Alk Phos 137 unit/L 39 - 136 03/06 [facility] CHEM PANEL Bili Total 1.4 mg/dL 0.2 - 1.3 03/06 [facility] CHEM PANEL ALT 22 unit/L 0 - 65 03/06 [facility] CHEM PANEL Bili 0.9 mg/dL 0.0 - 1.0 03/06 [facility] CHEM PANEL Globulin 4.8 g/dL 2.0 - 4.0 03/06 [facility] CHEM PANEL A/G Ratio 0.6 0.7 - 1.6 03/06 [facility] ELECTROLYT AGAP 8.9 meq/L 10.0 - 03/06 ES 20.0 [facility] ELECTROLYT eGFR 59 03/06 1Result Comment: The eGFR is calculated using the CKD-EPI formula. In most young, healthy individuals the eGFR will be >90 mL/ min/1.73m2. The eGFR declines with age. An eGFR of 60-89 may be normal in [facility] mL/min/1.7 /2013 some populations, particularly the elderly, for whom the CKD-EPI formula has not been extensively validated. Use of the eGFR is not recommended in the following populations: [facility] 3m2 Individuals with unstable creatinine concentrations, [...] CO2 28 meq/L 24 - 32 03/06 [facility] ELECTROLYT Calcium Lvl 8.7 mg/dL 8.5 - 10.5 03/06 [facility] ELECTROLYT BUN 9 mg/dL 7 - 22 03/06 [facility] ELECTROLYT Creatinine 0.9 mg/dL 0.5 - 1.4 03/06 [facility] Lvl [facility] ELECTROLYT Sodium Lvl 140 meq/L 135 - 145 03/06 [facility] ELECTROLYT Potassium 3.9 meq/L 3.5 - 5.1 03/06 ES Lvl [facility] ELECTROLYT Chloride Lvl 107 meq/L 95 - 109 03/06 [facility] ELECTROLYT Glucose Lvl 84 mg/dL 70 - 99 03/06 2Interpretive Data: Adult reference range values reflect the clinical guidelines of the [place] [employer]. [facility] HEMATOLOGY Hgb 11.9 g/dL 12.0 - 03/06 16.0 [facility] HEMATOLOGY Hct 35.2 % 36.0 - 03/06 48.0 [facility] HEMATOLOGY Platelet 80 K/CMM 133 - 450 03/06 [facility] HEMATOLOGY WBC 4.4 K/CMM 3.7 - 10.4 03/06 [facility] HEMATOLOGY PT 15.9 s 12.0 - 03/06 14.7 [facility] HEMATOLOGY INR 1.29 0.85 - 07 3Interpretive Data: RECOMMENDED RANGES FOR PROTIME INR: . 2.0-3.0 for most medical and surgical thromboembolic states. [facility] 2.5-3.5 for artificial heart valves and recurrent embolism. INR SHOULD BE USED ONLY FOR PATIENTS ON STABLE ANTICOAGULANT THERAPY. HEMATOLOGY PTT 32.6 s 22.9 - 03/06 4Interpretive 35.8 /2013 Data: Heparin [facility] Therapeutic Range: 57 - 92 Seconds TUMOR CEA 12.2 ng/mL 0.0 - 3.0 03/[address] [facility] PET [address] PET CT 09/14 - Colorectal Colorectal - [facility] [place] restaging EXAM: PET/CT restaging [...] Vital Signs Vital Sign Value Date Comments [facility] Systolic (mm Hg) 125 08/03/2017 [facility] Diastolic (mm Hg) 71 08/03/2017 [facility] Systolic (mm Hg) 129 08/03/2017 [facility] Diastolic (mm Hg) 66 08/03/2017 [facility] Systolic (mm Hg) 128 08/03/2017 [facility] Diastolic (mm Hg) 59 08/03/2017 [facility] Respitory Rate 16 08/03/2017 [facility] Respitory Rate 11 08/03/2017 [facility] Respitory Rate 9 08/03/2017 [facility] Temperature Oral (F) 97.3 F 08/02/2017 [facility] Heart Rate 70 08/02/2017 [facility] BMI Calculated 27.18 08/02/2017 [facility] Height 165.1 cm 08/02/2017 [facility] Weight 74.091 08/02/2017 [facility] Systolic (mm Hg) 99 04/21/2017 [facility] Diastolic (mm Hg) 56 04/21/2017 [facility] Respitory Rate 18 04/21/2017 [facility] Respitory Rate 18 04/21/2017 [facility] Systolic (mm Hg) 114 04/21/2017 [facility] Diastolic (mm Hg) 58 04/21/2017 [facility] Systolic (mm Hg) 109 04/21/2017 [facility] Diastolic (mm Hg) 56 04/21/2017 [facility] Respitory Rate 12 04/21/2017 [facility] Height 165.1 cm 04/13/2017 [facility] Weight 74.545 04/13/2017 [facility] BMI Calculated 27.35 04/13/2017 [facility] Temperature Oral (F) 97.4 F 04/13/2017 [facility] Heart Rate 80 04/13/2017 [facility] Systolic (mm Hg) 118 02/23/2017 [facility] Diastolic (mm Hg) 61 02/23/2017 [facility] Respitory Rate 32 02/23/2017 [facility] Respitory Rate 28 02/23/2017 [facility] Systolic (mm Hg) 109 02/23/2017 [facility] Diastolic (mm Hg) 60 02/23/2017 [facility] Systolic (mm Hg) 109 02/23/2017 [facility] Diastolic (mm Hg) 61 02/23/2017 [facility] Respitory Rate 23 02/23/2017 [facility] Temperature Oral (F) 97.4 F 02/16/2017 [facility] Heart Rate 72 02/16/2017 [facility] BMI Calculated 28.02 02/16/2017 [facility] Weight 76.364 02/16/2017 [facility] Height 165.1 cm 02/16/2017 [facility] Weight 159 08/12/2015 [id number] Height 64.4 08/12/2015 [id number]. [id number] Temperature Oral (F) 97.6 F 08/12/2015 [id number]. [id number] Heart Rate 93 08/12/2015 [id number]. [id number] Diastolic (mm Hg) 63 08/12/2015 [id number]. [id number] Systolic (mm Hg) 114 08/12/2015 [id number]. [id number] Systolic (mm Hg) 102 08/07/2015 [facility] Diastolic (mm Hg) 66 08/07/2015 [facility] Temperature Oral (F) 97.6 F 08/07/2015 [facility] Respitory Rate 16 08/07/2015 [facility] Heart Rate 77 08/07/2015 [facility] Respitory Rate 15 08/07/2015 [facility] Temperature Oral (F) 97.4 F 08/07/2015 [facility] Heart Rate 81 08/07/2015 [facility] Systolic (mm Hg) 100 08/07/2015 [facility] Diastolic (mm Hg) 66 08/07/2015 [facility] Systolic (mm Hg) 115 08/07/2015 [facility] Diastolic (mm Hg) 73 08/07/2015 [facility] Heart Rate 83 08/07/2015 [facility] Respitory Rate 16 08/07/2015 [facility] Temperature Oral (F) 97.4 F 08/07/2015 [facility] BMI Calculated 26.89 08/06/2015 [facility] [...] [facility] Diastolic (mm Hg) 54 03/13/2014 [facility] Temperature Oral (F) 97.6 F 03/06/2014 [facility] Height 165.1 cm 03/06/2014 [facility] Weight 65.909 03/06/2014 [facility] BMI Calculated 24.18 03/06/2014 [facility] Weight 149 02/02/2014 Medical Group [...] Number For Provider Date Date Visit Outpatient [id number] COLON PING CEBALLOS 09/14 Active [facility] 9 [facility] Outpatient [id number] 153.9 PING CEBALLOS 09/20 Active [facility] Bedded [id number] Theodoros 03/13 03/13 [facility] Outpatient 0 [facility] Office [id number] Dakota Michele, 03/23 03/23 [id number] General [facility] 350 [facility] Outpatient [id number] Ping Ceballos 03/24 03/25 [facility] Lab Report [id number] Dakota Michele, 03/26 03/26 [place] [address] [facility] Lab Report [id number] Thesantoshorowili 04/12 04/12 [place] [id number] [facility] Medical Medical MD Group [facility] OBS [id number] Dakota Michele 04/18 04/20 [place] Observation [facility] Office [id number] Dakota Michele, 04/27 04/27 [place] Visit [id number] [facility] [id number] Ping Ceballos 08/05 09/04 [place] Recurring [facility] OBS [id number] Van 08/06 08/07 [place] Observation 3 [facility] Unknown [id number] 08/12 08/12 2.16.840 Medical [id number] /2014 .[id number] Group [id number] Outpatient [id number] THEODOROS 05/14 [facility] 0 VOLOYIAN [place] Outpatient [id number] THEODOROS 10/15 [facility] 1 [facility]OLOYIAN [facility] Outpatient [id number] THEODOROS 02/23 [facility] 3 VOLOY [place] Outpatient [id number] THEODORO 02/23 [facility] 2 VOLOYIAN [facility] Bedded [id number] Theodoros 02/23 02/23 [facility] Outpatient 4 Volian [facility] Outpatient [id number] Theodoros 03/04 03/05 [facility] 5 Voloyian /2016 [facility] Outpatient [id number] [facility] 03/30 [facility] Outpatient [id number] THEODOROS 04/21 [facility] 5 VOLOY [facility] Surgery [id number] [facility] 04[facility]21 [facility] Outpatient [id number] ROMAN FOSTER 05/12 [facility] [id number] [facility] 05/17 [facility] [place] Outpatient [id number] NURSE VISIT 06/22 Active [facility] Day Surgery [id number] Nino [facility] 08/03 08/03 [place] /2016 [facility] Outpatient [id number] JOVANA CUI 08/26 [facility] Outpatient [id number] [facility] 08/26 Active [facility] Ambulatory [id number] Jovana Karli 08/26 08/26 Urology Pre-Reg [facility] Outpatient [id number] Nino Manh 08/26 08/27 U[facility] Outpatient [id number] [facility] 09/27 Active [facility] Outpatient [id number] Nino [facility] 09/27 09/28 Urology [facility] Outpatient [id number] NINO [facility] 01/14 Active [facility] [id number] Nino [facility] 01/14 01/14 Urology Pre-Reg [facility] Procedures Procedure Code Date Perfomer Comments Source Cystourethroscopy, 55033 Medical with removal of 7 Group foreign body, calculus, or ureteral stent from urethra or bladder (separate procedure); simple Hernia repair [id number] [facility] 4 Hernia repair [id number] Medical 4 Group Cannulation of [id number] [facility] [id number] 1994 [facility] catheterization<sup>1 </sup> Cholecystectomy [id number] [facility] Colonoscopy [id number] [facility] Hysterectomy [id number] [facility] Knee [id number] 2011 [facility] replacement<sup>2</red p> Operation [id number] [facility] Partial resection of [id number] [facility] colon Cannulation of [id number] Medical [facility] Cardiac [id number] 1994 Medical catheterization<sup>1 Group </sup> Cataract extraction [id number] Medical and insertion of Group intraocular lens Cholecystectomy [id number] Medical Group Colonoscopy [id number] Medical Group Hysterectomy [id number] Medical Group Knee [id number] 2011 Medical replacement<sup>2</red Group p> Operation [id number] Medical Group Partial resection of [id number] [facility] Cataract extraction [id number] [place] and insertion of intraocular lens
--- OUTSIDE RECORDS SUMMARY | 2019-01-23 08:13 | XMS REPORT | CCD ---
:1930 Author Organization [facility] Care Team Providers Name Role Phone Marlyn Ceballos Referring Provider Allergies, Adverse Reactions, Alerts Substance Reaction Status morphine Active Problem List Condition Effective Dates Status CAD - Coronary artery disease Active Cancer of colon 05/10/2011 Active Cirrhosis of liver Active Esophageal varices Active Hepatitis C Active Pneumonia Active
--- OUTSIDE RECORDS SUMMARY | 2019-01-23 08:13 | XMS REPORT | CCD ---
:1930 Author Organization [facility] Care Team Providers Name Role Phone Marlyn Ceballos Consulting Provider Allergies, Adverse Reactions, Alerts Substance Reaction Status morphine Active Problem List Condition Effective Dates Status CAD - Coronary artery disease Active Cancer of colon 05/10/2011 Active Cirrhosis of liver Active Esophageal varices Active Hepatitis C Active Pneumonia Active
--- OUTSIDE RECORDS SUMMARY | 2019-01-23 08:14 | XMS REPORT | Continuity of Care Document ---
:1930 Author Organization [facility] Care Team Providers Name Role Phone MD Niranjan, Galdino Unavailable Unavailable Insurance Providers Payer name Policy type / Policy ID Covered green party ID Policy Mont[place] Coverage type MEDIC[place]: [employer] AARP HEALTHCARE OPTIONS (MEDICARE SUPPLEMENT AARP HEALTHCARE [...] Location Date Lab Report Galdino Ureña MD [facility] Apr 12, 2014 Allergies, Adverse Reactions, Alerts [...]
--- OUTSIDE RECORDS SUMMARY | 2019-01-23 08:14 | XMS REPORT | Continuity of Care Document ---
:1930 Author Organization [facility] Care Team Providers Name Role Phone MD Michele Hoang Unavailable Unavailable Insurance Providers Payer name Policy type / Policy ID Covered libertarian ID Policy Montoya Coverage type [place]IC[place]: [employer] AARP HEALTHCARE OPTIONS (MEDICARE SUPPLEMENT AARP HEALTHCARE [...] Location Date Lab Report Dakota Michele MD [facility] [place] Mar 26, 2014 Allergies, Adverse Reactions, Alerts [...]
--- OUTSIDE RECORDS SUMMARY | 2019-01-23 08:14 | XMS REPORT | Continuity of Care Document ---
:1930 Author Organization [facility] Care Team Providers Name Role Phone MD Michele Hoang Unavailable Unavailable Insurance Providers Payer name Policy type / Policy ID Covered libertarian ID Policy Montoya Coverage type MEDIC[place] B-[place]: [employer] AARP HEALTHCARE OPTIONS (MEDICARE SUPPLEMENT AARP HEALTHCARE [...] Location Date Office Visit Dakota Michele MD [facility] Mar 23, 2014 Surgery 350 [...]
--- OUTSIDE RECORDS SUMMARY | 2019-01-23 08:15 | XMS REPORT | Continuity of Care Document ---
:1930 Author Organization [facility] Care Team Providers Name Role Phone MD Michele Hoang Unavailable Unavailable Insurance Providers Payer name Policy type / Policy ID Covered constitution party ID Policy Montoya Coverage type MEDICARE B-[place]: [employer] AARP HEALTHCARE OPTIONS (MEDICARE SUPPLEMENT AARP HEALTHCARE [...] Location Date Office Visit Dakota Michele MD [facility] Apr 27, [...]
--- OUTSIDE RECORDS SUMMARY | 2019-01-23 08:15 | XMS REPORT ---
:1930 Author Organization [facility] Address [address] [place] [address] [address] [place] [address] Care Team Providers Name Role Phone MARY [...] Value Reference Range Comments ALPHA-FETOPROTEIN (BEAKER) (test ijli=7762) 2.9 ng/mL <10.0 HEPATIC FUNCTION [id number] 16:38:00 Test Item Value Reference Range Comments TOTAL PROTEIN (BEAKER) (test nytr=262) 9.0 gm/dL 6.0-8.3 ALBUMIN (BEAKER) (test fwvz=7348) 2.8 g/dL 3.5-5.0 BILIRUBIN TOTAL (BEAKER) (test ipmd=654) 1.2 mg/dL 0.2-1.2 BILIRUBIN DIRECT (BEAKER) (test hzum=665) 0.7 mg/dL 0.1-0.5 ALKALINE PHOSPHATASE (BEAKER) (test gmmg=558) 111 U/L 40-150 AST (SGOT) (BEAKER) (test hirh=870) 31 U/L 5-34 ALT (SGPT) (BEAKER) (test qago=567) 12 U/L 6-55 BASIC METABOLIC [id number] 16:38:00 Test Item Value Reference Range Comments SODIUM (BEAKER) (test 133 meq/L 136-145 hlkr=439) POTASSIUM (BEAKER) (test 4.0 meq/L 3.5-5.1 wjzf=714) CHLORIDE (BEAKER) (test 100 meq/L 98-107 ajhi=916) CO2 (BEAKER) (test 27 meq/L 22-29 bmnf=932) BLOOD UREA NITROGEN 20 mg/dL 7-21 (BEAKER) (test ebsx=685) CREATININE (BEAKER) (test 1.07 mg/dL 0.57-1.25 qljf=824) GLUCOSE RANDOM (BEAKER) 71 mg/dL 70-105 (test fxir=695) CALCIUM (BEAKER) (test 9.4 mg/dL 8.4-10.2 msnt=076) EGFR (BEAKER) (test 49 mL/min/1.73 sq m ESTIMATED GFR IS NOT yifn=1028) ACCURATE CREATININE CLEARANCE IN PREDICTING GLOMERULAR FILTRATION RATE. ESTIMATED GFR IS NOT APPLICABLE FOR DIALYSIS PATIENTS. [id number] 16:33:00 Test Item Value Reference Range Comments AMMONIA (BEAKER) (test nlsr=701) 40 mol/L 18-72 PROTHROMBIN [id number] 16:29:00 Test Item Value Reference Range Comments PROTIME (BEAKER) (test ynva=162) 16.5 seconds 11.7-14.7 INR (BEAKER) (test vntm=509) 1.3 <=5.9 RECOMMENDED COUMADIN/WARFARIN INR THERAPY RANGESSTANDARD DOSE: 2.0 - 3.0 Includes: PROPHYLAXIS forvenous thrombosis, systemic embolization; TREATMENT for venous thrombosis and/or pulmonary embolus.HIGH RISK: Target INR is 2.5-3.5 for patients with mechanical heart valves.CBC W/PLT COUNT & AUTO [id number] 16:22:00 Test Item Value Reference Range Comments WHITE BLOOD CELL COUNT (BEAKER) (test tnyt=068) 5.0 K/ L 3.5-10.5 RED BLOOD CELL COUNT (BEAKER) (test biwh=307) 3.39 M/ L 3.93-5.22 HEMOGLOBIN (BEAKER) (test uekq=998) 10.7 GM/DL 11.2-15.7 HEMATOCRIT (BEAKER) (test omte=526) 33.1 % 34.1-44.9 MEAN CORPUSCULAR VOLUME (BEAKER) (test cvjt=947) 97.6 fL 79.4-94.8 MEAN CORPUSCULAR HEMOGLOBIN (BEAKER) (test 31.6 pg 25.6-32.2 jphe=556) MEAN CORPUSCULAR HEMOGLOBIN CONC (BEAKER) (test 32.3 GM/DL 32.2-35.5 fvtc=205) RED CELL DISTRIBUTION WIDTH (BEAKER) (test 15.0 % 11.7-14.4 rbxu=880) PLATELET COUNT (BEAKER) (test vlak=002) 98 K/CU MM 150-450 MEAN PLATELET VOLUME (BEAKER) (test gbjd=448) 10.0 fL 9.4-12.3 NUCLEATED RED BLOOD CELLS (BEAKER) (test 0 /100 WBC 0-0 gdcs=035) NEUTROPHILS RELATIVE PERCENT (BEAKER) (test 71 % hgqb=554) LYMPHOCYTES RELATIVE PERCENT (BEAKER) (test 14 % gicw=263) MONOCYTES RELATIVE PERCENT (BEAKER) (test 12 % gdyc=925) EOSINOPHILS RELATIVE PERCENT (BEAKER) (test 2 % dyor=834) BASOPHILS RELATIVE PERCENT (BEAKER) (test 1 % vtzv=137) NEUTROPHILS ABSOLUTE COUNT (BEAKER) (test 3.51 K/ L 1.56-6.13 xzar=673) LYMPHOCYTES ABSOLUTE COUNT (BEAKER) (test 0.69 K/ L 1.18-3.74 yryu=722) MONOCYTES ABSOLUTE COUNT (BEAKER) (test oivy=211) 0.62 K/ L 0.24-0.36 EOSINOPHILS ABSOLUTE COUNT (BEAKER) (test 0.10 K/ L 0.04-0.36 sovd=828) BASOPHILS ABSOLUTE COUNT (BEAKER) (test zrbb=459) 0.04 K/ L 0.01-0.08 IMMATURE GRANULOCYTES-RELATIVE PERCENT (BEAKER) 0 % 0-1 (test cmms=1239) ALPHA FETOPROTEIN (AFP), TUMOR [id number] 17:15:00 Test Item Value Reference Range Comments ALPHA-FETOPROTEIN (BEAKER) (test chsn=3849) 3.3 ng/mL <10.0 [id number] 16:34:00 Test Item Value Reference Range Comments MAGNESIUM (BEAKER) (test nwlb=965) 1.8 mg/dL 1.6-2.6 BASIC METABOLIC [id number] 16:34:00 Test Item Value Reference Range Comments SODIUM (BEAKER) (test 133 meq/L 136-145 qlco=836) POTASSIUM (BEAKER) (test 3.9 meq/L 3.5-5.1 olaf=929) CHLORIDE (BEAKER) (test 99 meq/L 98-107 cjan=649) CO2 (BEAKER) (test 25 meq/L 22-29 tlkw=428) BLOOD UREA NITROGEN 12 mg/dL 7-21 (BEAKER) (test mktq=124) CREATININE (BEAKER) (test 0.97 mg/dL 0.57-1.25 fvbx=511) GLUCOSE RANDOM (BEAKER) 93 mg/dL 70-105 (test gsfd=328) CALCIUM (BEAKER) (test 9.0 mg/dL 8.4-10.2 lqyl=221) EGFR (BEAKER) (test 54 mL/min/1.73 sq m ESTIMATED GFR IS NOT bkpm=7436) ACCURATE CREATININE CLEARANCE IN PREDICTING GLOMERULAR FILTRATION RATE. ESTIMATED GFR IS NOT APPLICABLE FOR DIALYSIS PATIENTS. Specimen slightly ictericHEPATIC FUNCTION [id number] 16:34:00 Test Item Value Reference Range Comments TOTAL PROTEIN (BEAKER) (test kdmq=633) 8.0 gm/dL 6.0-8.3 ALBUMIN (BEAKER) (test mvpy=2954) 3.0 g/dL 3.5-5.0 BILIRUBIN TOTAL (BEAKER) (test vrwe=547) 1.9 mg/dL 0.2-1.2 BILIRUBIN DIRECT (BEAKER) (test lpuf=452) 0.8 mg/dL 0.1-0.5 ALKALINE PHOSPHATASE (BEAKER) (test tsvj=236) 122 U/L 40-150 AST (SGOT) (BEAKER) (test bphm=048) 30 U/L 5-34 ALT (SGPT) (BEAKER) (test atqc=693) 12 U/L 6-55 Specimen slightly ictericPROTHROMBIN [id number] 16:17:00 Test Item Value Reference Range Comments PROTIME (BEAKER) (test dbqx=365) 17.3 seconds 11.7-14.7 INR (BEAKER) (test vvpa=793) 1.4 <=5.9 RECOMMENDED COUMADIN/WARFARIN INR THERAPY RANGESSTANDARD DOSE: 2.0 - 3.0 Includes: PROPHYLAXIS forvenous thrombosis, systemic embolization; TREATMENT for venous thrombosis and/or pulmonary embolus.HIGH RISK: Target INR is 2.5-3.5 for patients with mechanical heart valves.CBC W/PLT COUNT & AUTO [id number] 16:17:00 Test Item Value Reference Range Comments WHITE BLOOD CELL COUNT (BEAKER) (test atlo=964) 5.6 K/ L 3.5-10.5 RED BLOOD CELL COUNT (BEAKER) (test eovo=875) 3.83 M/ L 3.93-5.22 HEMOGLOBIN (BEAKER) (test dyih=784) 12.0 GM/DL 11.2-15.7 HEMATOCRIT (BEAKER) (test zhmo=114) 36.8 % 34.1-44.9 MEAN CORPUSCULAR VOLUME (BEAKER) (test ciht=532) 96.1 fL 79.4-94.8 MEAN CORPUSCULAR HEMOGLOBIN (BEAKER) (test 31.3 pg 25.6-32.2 fkho=496) MEAN CORPUSCULAR HEMOGLOBIN CONC (BEAKER) (test 32.6 GM/DL 32.2-35.5 gpcd=155) RED CELL DISTRIBUTION WIDTH (BEAKER) (test 15.9 % 11.7-14.4 nnps=932) PLATELET COUNT (BEAKER) (test powe=408) 83 K/CU MM 150-450 MEAN PLATELET VOLUME (BEAKER) (test jsez=507) 11.1 fL 9.4-12.3 NUCLEATED RED BLOOD CELLS (BEAKER) (test 0 /100 WBC 0-0 iofh=608) NEUTROPHILS RELATIVE PERCENT (BEAKER) (test 54 % eolw=425) LYMPHOCYTES RELATIVE PERCENT (BEAKER) (test 36 % ssxl=300) MONOCYTES RELATIVE PERCENT (BEAKER) (test 8 % kism=750) EOSINOPHILS RELATIVE PERCENT (BEAKER) (test 2 % micf=181) BASOPHILS RELATIVE PERCENT (BEAKER) (test 1 % uwll=750) NEUTROPHILS ABSOLUTE COUNT (BEAKER) (test 3.01 K/ L 1.56-6.13 hstm=217) LYMPHOCYTES ABSOLUTE COUNT (BEAKER) (test 1.98 K/ L 1.18-3.74 xmvm=146) MONOCYTES ABSOLUTE COUNT (BEAKER) (test rgia=523) 0.44 K/ L 0.24-0.36 EOSINOPHILS ABSOLUTE COUNT (BEAKER) (test 0.10 K/ L 0.04-0.36 xfap=031) BASOPHILS ABSOLUTE COUNT (BEAKER) (test jzeh=293) 0.04 K/ L 0.01-0.08 IMMATURE GRANULOCYTES-RELATIVE PERCENT (BEAKER) 0 % 0-1 (test frqb=3178) ALPHA FETOPROTEIN (AFP), TUMOR [id number] 16:14:00 Test Item Value Reference Range Comments ALPHA-FETOPROTEIN (BEAKER) (test arsl=6370) 5.7 ng/mL <10.0 Effective 07/17/2014: Reference Range ChangeNew: <10.0 Previous: 0.0- [id number] 15:57:00 Test Item Value Reference Range Comments MAGNESIUM (BEAKER) (test gygj=357) 1.9 mg/dL 1.6-2.6 BASIC METABOLIC [id number] 15:57:00 Test Item Value Reference Range Comments SODIUM (BEAKER) (test 139 meq/L 136-145 gicm=621) POTASSIUM (BEAKER) (test 4.5 meq/L 3.5-5.1 aewu=052) CHLORIDE (BEAKER) (test 105 meq/L 98-107 wvbp=962) CO2 (BEAKER) (test 25 meq/L 22-29 qnec=705) BLOOD UREA NITROGEN 15 mg/dL 7-21 (BEAKER) (test oxcy=719) CREATININE (BEAKER) (test 0.95 mg/dL 0.57-1.25 njwj=379) GLUCOSE RANDOM (BEAKER) 86 mg/dL 70-105 (test jfiz=101) CALCIUM (BEAKER) (test 9.4 mg/dL 8.4-10.2 pssq=716) EGFR (BEAKER) (test 56 mL/min/1.73 sq m ESTIMATED GFR IS NOT tdyx=3879) ACCURATE CREATININE CLEARANCE IN PREDICTING GLOMERULAR FILTRATION RATE. ESTIMATED GFR IS NOT APPLICABLE FOR DIALYSIS PATIENTS. Specimen slightly ictericHEPATIC FUNCTION [id number] 15:57:00 Test Item Value Reference Range Comments TOTAL PROTEIN (BEAKER) (test byam=740) 7.6 gm/dL 6.0-8.3 ALBUMIN (BEAKER) (test gyue=1056) 3.2 g/dL 3.5-5.0 BILIRUBIN TOTAL (BEAKER) (test pvnu=848) 1.8 mg/dL 0.2-1.2 BILIRUBIN DIRECT (BEAKER) (test thhr=086) 0.8 mg/dL 0.1-0.5 ALKALINE PHOSPHATASE (BEAKER) (test zjbp=562) 112 U/L 40-150 AST (SGOT) (BEAKER) (test qcpt=581) 33 U/L 5-34 ALT (SGPT) (BEAKER) (test ihse=220) 17 U/L 6-55 Specimen slightly ictericPROTHROMBIN [id number] 15:56:00 Test Item Value Reference Range Comments PROTIME (BEAKER) (test edxh=215) 16.7 seconds 11.7-14.7 INR (BEAKER) (test oonp=372) 1.4 <=5.9 RECOMMENDED COUMADIN/WARFARIN INR THERAPY RANGESSTANDARD DOSE: 2.0 - 3.0 Includes: PROPHYLAXIS forvenous thrombosis, systemic embolization; TREATMENT for venous thrombosis and/or pulmonary embolus.HIGH RISK: Target INR is 2.5-3.5 for patients with mechanical heart valves.CBC W/PLT COUNT & AUTO [id number] 15:56:00 Test Item Value Reference Range Comments WHITE BLOOD CELL COUNT (BEAKER) (test jief=850) 5.3 K/ L 4.0-10.0 RED BLOOD CELL COUNT (BEAKER) (test elfb=721) 4.21 M/ L 4.00-5.00 HEMOGLOBIN (BEAKER) (test bahd=372) 14.1 GM/DL 12.0-15.0 HEMATOCRIT (BEAKER) (test lqtx=714) 41.7 % 36.0-45.0 MEAN CORPUSCULAR VOLUME (BEAKER) (test nkme=649) 99.1 fL 82.0-99.0 MEAN CORPUSCULAR HEMOGLOBIN (BEAKER) (test 33.4 pg 27.0-33.0 lqmn=171) MEAN CORPUSCULAR HEMOGLOBIN CONC (BEAKER) (test 33.7 GM/DL 32.0-36.0 gkdz=636) RED CELL DISTRIBUTION WIDTH (BEAKER) (test 13.2 % 10.3-14.2 xpfx=592) PLATELET COUNT (BEAKER) (test jhea=626) 77 K/CU MM 150-430 MEAN PLATELET VOLUME (BEAKER) (test gqzk=619) 8.4 fL 6.5-10.5 NUCLEATED RED BLOOD CELLS (BEAKER) (test 0 /100 WBC 0-0 luoy=317) NEUTROPHILS RELATIVE PERCENT (BEAKER) (test 54 % hosp=626) LYMPHOCYTES RELATIVE PERCENT (BEAKER) (test 33 % xfqu=009) MONOCYTES RELATIVE PERCENT (BEAKER) (test 10 % njhk=461) EOSINOPHILS RELATIVE PERCENT (BEAKER) (test 3 % aait=052) BASOPHILS RELATIVE PERCENT (BEAKER) (test 0 % bkik=716) NEUTROPHILS ABSOLUTE COUNT (BEAKER) (test 2.86 K/ L 1.80-8.00 qhtw=835) LYMPHOCYTES ABSOLUTE COUNT (BEAKER) (test 1.77 K/ L 1.48-4.50 pitx=319) MONOCYTES ABSOLUTE COUNT (BEAKER) (test hadq=725) 0.56 K/ L 0.00-1.30 EOSINOPHILS ABSOLUTE COUNT (BEAKER) (test 0.13 K/ L 0.00-0.50 oajy=466) BASOPHILS ABSOLUTE COUNT (BEAKER) (test qwyj=158) 0.02 K/ L 0.00-0.20 [id number] 11:05:00 Test Item Value Reference Range Comments POC-CREATININE (BEAKER) 0.9 mg/dL 0.6-1.3 TESTED AT [facility] [address] [facility] (test zwkn=2077) [facility] [address] POC-EGFR (BEAKER) (test 59 mL/min/1.73M2 adxv=1585)
--- OUTSIDE RECORDS SUMMARY | 2019-01-23 08:15 | XMS REPORT ---
:1930 Author Organization [employer] Care Team Providers Name Role Phone Belkis Luuad Provider Role Unavailable Allergies, Adverse Reactions, Alerts Substance Reaction Event Type Adhesive Tape rash Drug Allergy Morphine Sulfate Info Not Available Drug Allergy Encounters Encounter Location Date Unknown [facility] Aug 12, 2015 Problems Problem Type [...] End Status Dosage Date Date [facility]ol [facility] 19896-85 20 mg Orally Active 1 tablet 73-00 daily Gabapentin [facility] 14272-13 300 MG Orally Active 1 capsule 39-19 twice a day (bid) B-12 [facility] 51830-72 2500 MCG Active Unknown 92-72 Sublingual Ocuvite [facility] 69314-01 Orally daily Active 1 tablet 87-60 Lasix [facility] 22172-84 40 MG Orally Active 1 tablet 60-13 Once a day Ciprofloxacin [facility] 47753-59 500 MG/5ML (10%) Active 5 ml 93-01 Orally Twice a day [facility]act[facility] 56538[facility]02 25 MG Orally Active 1 tablet 03-11 daily Caltrate 600+D [facility] 58929-60 600-400 MG-UNIT Active 1 tablet 86-00 Orally [...]
--- NOTE | 2019-01-23 09:13 | RAD REPORT ---
EXAM DESCRIPTION: CT - Head Brain Wo Cont - 01/23/2019 8:45 am CLINICAL HISTORY: Alteration of awareness/confusion COMPARISON: November 2018 TECHNIQUE: Computed axial tomography of the head was obtained. IV contrast was not requested. All CT scans are performed using dose optimization technique as appropriate and may include automated exposure control or mA/KV adjustment according to patient size. FINDINGS: An intracranial bleed is not seen . The ventricles are normal in caliber. No extra-axial fluid collection is noted. Mild to moderate low-density areas within periventricular, deep and subcortical white matter likely represent ischemic changes secondary to small vessel disease . Fluid within the sinuses/ mastoids is not seen. IMPRESSION: No acute intracranial abnormality is seen. If patient's symptoms persist MRI of the bra in would be recommended.
[2019-01-23 09:17] LABS: Absolute Lymphocytes (CBC) 0.6 K/uL (0.7-4.9); Absolute Monocytes 0.4 K/uL (0.1-1.3); Absolute Neutrophil 2.7 K/uL (1.8-8.0); Basophils % 0.9 % (0-1.3); Eosinophils % 2.8 % (0-4.4); Hematocrit 30.8 % (36.0-45.0); Lymphocytes % 16.5 % (15.3-44.8); Monocytes % 11.1 % (3.3-12.3); RBC Red Blood Cell Count 3.29 M/uL (3.86-4.86)
[2019-01-23 09:18] LABS: Protime INR 1.11
[2019-01-23] MEDS ORDERED: NA CHLORIDE 0.9% 1,000 ML ONE (09:23)
[2019-01-23] MEDS ORDERED: LACTULOSE 20 GM/30 ML UCUP ONE (09:24)
[2019-01-23 09:30] LABS: ALT/SGPT 32 U/L (12-78); AST/SGOT 52 U/L (15-37); Albumin 2.8 g/dL (3.4-5.0); Alkaline Phosphatase 129 U/L (45-117); BUN Blood Urea Nitrogen 33 mg/dL (7-18); Bicarbonate 27 mmol/L (21-32); Bilirubin Direct 0.5 mg/dL (0-0.2); Bilirubin Total 1.2 mg/dL (0.2-1.0); Glucose Level 97 mg/dL (74-106); Lipase 437 U/L (73-393); Magnesium 2.2 mg/dL (1.8-2.4); NT PRO-BNP 153 pg/mL (<450); Potassium 3.9 mmol/L (3.5-5.1); Protein, Total 7.1 g/dL (6.4-8.2); Sodium Level 138 mmol/L (136-145); Troponin (Emerg Dept Use Only) < 0.02 ng/mL (0.0-0.045)
--- NOTE | 2019-01-23 09:38 | ER ---
Nurse's Notes [facility] Name: Whitney Villalta Age: 88 yrs Sex: Female : 1930 Arrival Date: 01/23/2019 Time: 08:01 Bed 7 Private MD: Diagnosis: Unspecified cirrhosis of liver;Encephalopathy, unspecified-hepatic Presentation: 01/23 08:02 Presenting complaint: EMS states: AMS x 2 days. Hx of liver failure, takes lactulose. hb AOx1, BP 118/68, HR 100, BGL 106. Transition of care: patient was not received from another setting of care. Onset of symptoms was January 22, 2019. Risk Assessment: Do you want to hurt yourself or someone else? Unable to obtain. Initial Sepsis Screen: Does the patient meet any 2 criteria? No. Patient's initial sepsis screen is negative. Does the patient have a suspected source of infection? No. Patient's initial sepsis screen is negative. Care prior to arrival: None. 08:02 Method Of Arrival: EMS: [facility] hb 08:02 Acuity: KELLY 2 hb Historical: - Allergies: 08:07 adhesive tapes; hb 08:07 Morphine; hb - Home Meds: 08:07 docusate sodium 100 mg Oral cap 1 cap at bedtime [Active]; furosemide 40 mg Oral tab 1 hb tab once daily [Active]; gabapentin 300 mg Oral cap 1 cap 3 times per day [Active]; Iron CR Oral 28 mg twice a day [Active]; magnesium oxide 250 mg Oral tab twice a day [Active]; potassium chloride 10 mEq Oral cpER 1 cap 2 times per day [Active]; rifaximin 200 mg Oral 1 tab 2 times per day [Active]; spironolactone 25 mg Oral tab 2 tabs daily [Active]; sulfamethoxazole-trimethoprim Oral 2 times per day [Active]; 09:59 midodrine 5 mg oral tab 2 tabs twice a day [Active]; hb - PMHx: 08:07 colon cancer; Liver disease; Lower extremity edema; Pneumonia; stage 3 cirrhosis; hb - Immunization history:: Adult Immunizations up to date. - Social history:: Smoking status: Patient/guardian denies using tobacco. - Ebola Screening: : No symptoms or risks identified at this time. - Family history:: not pertinent. Screenin:10 Abuse screen: Denies threats or abuse. Denies injuries from another. Nutritional hb screening: No deficits noted. Tuberculosis screening: No symptoms or risk factors identified. Fall Risk Total Madrid Fall Scale indicates High Risk Score (45 or more points). Fall prevention measures have been instituted. Side Rails Up X 2 Frequent Obs/Assessments Occuring Family Present and informed to notify staff if the need to leave the bedside As available patient and family educated on Fall Prevention Program and Strategies. Assessment: 08:15 General: Appears in no apparent distress. Behavior is calm. Pain: Unable to use pain hb scale. Patient is disoriented. FLACC scale score is 0 out of 10. Neuro: Level of Consciousness is confused, obtunded, Oriented to person. Cardiovascular: Capillary refill < 3 seconds Patient's skin is warm and dry. Respiratory: Airway is patent Respiratory effort is even, unlabored, Respiratory pattern is regular, symmetrical, Breath sounds are clear bilaterally. GI: No signs and/or symptoms were reported involving the gastrointestinal system. : No signs and/or symptoms were reported regarding the genitourinary system. EENT: No signs and/or symptoms were reported regarding the EENT system. Derm: Skin is intact, is healthy with good turgor, Skin is pink, warm \T\ dry. Musculoskeletal: No signs and/or symptoms reported regarding the musculoskeletal system. 09:10 Reassessment: Patient appears in no apparent distress at this time. No changes from hb previously documented assessment. Patient and/or family updated on plan of care and expected duration. Pain level reassessed. Family at bedside. 09:33 Reassessment: cleaned patient of bowel incontinence and repositioned with assistance ss from ED staff. Otero inserted by Izabela Siddiqui RN and Mckenzie Rachel RN. Daughter remains at bedside. 10:15 Reassessment: Patient appears in no apparent distress at this time. No changes from hb previously documented assessment. Patient and/or family updated on plan of care and expected duration. Pain level reassessed. Admission ordered, awaiting room assignment at this time. 10:42 Reassessment: Attempted to call report to floor, receiving nurse unavailable. hb 11:00 Reassessment: Patient appears in no apparent distress at this time. No changes from hb previously documented assessment. Patient and/or family updated on plan of care and expected duration. Pain level reassessed. Vital Signs: 08:04 BP 106 / 68; Pulse 123; Resp 16; Temp 98.1; Pulse Ox 100% on R/A; Weight 57.15 kg; hb Height 5 ft. 5 in. (165.10 cm); Pain 0/10; 09:00 BP 102 / 66; Pulse 82; Resp 14; Pulse Ox 100% on R/A; hb 09:56 BP 101 / 65; Pulse 77; Resp 15; Pulse Ox 9% on R/A; hb 08:04 Body Mass Index 20.97 (57.15 kg, 165.10 cm) hb 08:04 Johanna (FACES) hb ED Course: 08:01 Patient arrived in ED. hb 08:04 Triage completed. hb 08:08 Arm band placed on. hb 08:10 Patient has correct armband on for positive identification. Placed in gown. Bed in low hb position. Call light in reach. Side rails up X2. playground monitor on. Pulse ox on. NIBP on. 08:13 Keven Sousa MD is Attending Physician. patricia 08:28 EKG done, by ED staff, reviewed by Keven Sousa MD. jb1 08:46 CT Head Brain wo Cont In Process Unspecified. EDMS 09:06 Izabela Siddiqui, RN is Primary Nurse. hb 09:26 XRAY Chest (1 view) In Process Unspecified. EDMS 09:37 Jp Aleman MD is Hospitalizing Provider. patricia 11:25 No provider procedures requiring assistance completed. Patient admitted, IV remains in hb place. Administered Medications: 08:55 Drug: NS 0.9% 500 ml Route: IV; Rate: bolus; Site: PICC; hb 09:45 Follow up: Response: No adverse reaction; IV Status: Completed infusion; IV Intake: hb 500ml 09:35 Drug: Lactulose 30 grams Volume: 45 ml; Route: PO; hb 10:30 Follow up: Response: No adverse reaction hb 10:41 Drug: Rocephin - (cefTRIAXone) 1 grams Route: IVPB; Infused Over: 30 mins; Site: PICC; ss 10:45 Follow up: IV Status: Completed infusion; IV Intake: 10ml hb 11:20 Follow up: Response: No adverse reaction hb Intake: 09:45 IV: 500ml; Total: 500ml. hb 10:45 IV: 10ml; Total: 510ml. hb Outcome: 09:38 Decision to Hospitalize by Provider. patricia 11:25 Admitted to Tele accompanied by tech, family with patient, via stretcher, with chart. hb 11:25 Condition: stable 11:25 Instructed on the need for admit. 11:36 Patient left the ED. hb Signatures: Dispatcher [employer] EDMS FadumoDale [email or web address] Keven Sousa MD MD cha Smirch, Shelby, RN RN Izabela Javier RN RN hb Corrections: (The following items were deleted from the chart) 08:08 08:04 BP 106 / 68; Pulse 64bpm; Resp 16bpm; Pulse Ox 100% RA; Temp 98.1F; 57.15 kg; hb Height 5 ft. 5 in.; BMI: 20.9; Pain 0/10, Llanos-Rodrigues (FACES) ; hb 08:09 08:02 Presenting complaint: EMS states: AMS x 2 days. Hx of liver failure, takes hb lactulose. AOx1, BP 118/68, HR 60s. BGL 106 hb 08:10 08:02 Presenting complaint: EMS states: AMS x 2 days. Hx of liver failure, takes hb lactulose. AOx1, BP 118/68, HR 100-140. BGL 106 hb
--- NOTE | 2019-01-23 09:39 | EDPHYS ---
Physician Documentation [facility] Name: Whitney Villalta Age: 88 yrs Sex: Female : 1930 Arrival Date: 01/23/2019 Time: 08:01 Bed 7 Private MD: ED Physician Keven Sousa HPI: 01/23 08:32 This 88 yrs old Female presents to ER via EMS with complaints of Altered patricia Mental Status. 08:32 The patient presents with decreased mental status, decreased responsiveness. Onset: The patricia symptoms/episode began/occurred just prior to arrival, this morning. Possible causes: unknown. Historical: - Allergies: 08:07 adhesive tapes; hb 08:07 Morphine; hb - Home Meds: 08:07 docusate sodium 100 mg Oral cap 1 cap at bedtime [Active]; furosemide 40 mg Oral tab 1 hb tab once daily [Active]; gabapentin 300 mg Oral cap 1 cap 3 times per day [Active]; Iron CR Oral 28 mg twice a day [Active]; magnesium oxide 250 mg Oral tab twice a day [Active]; potassium chloride 10 mEq Oral cpER 1 cap 2 times per day [Active]; rifaximin 200 mg Oral 1 tab 2 times per day [Active]; spironolactone 25 mg Oral tab 2 tabs daily [Active]; sulfamethoxazole-trimethoprim Oral 2 times per day [Active]; 09:59 midodrine 5 mg oral tab 2 tabs twice a day [Active]; hb - PMHx: 08:07 colon cancer; Liver disease; Lower extremity edema; Pneumonia; stage 3 cirrhosis; hb - Immunization history:: Adult Immunizations up to date. - Social history:: Smoking status: Patient/guardian denies using tobacco. - Ebola Screening: : No symptoms or risks identified at this time. - Family history:: not pertinent. ROS: 08:32 Constitutional: Negative for fever, chills, and weight loss, Eyes: Negative for injury, patricia pain, redness, and discharge, ENT: Negative for injury, pain, and discharge, Neck: Negative for injury, pain, and swelling, Cardiovascular: Negative for chest pain, palpitations, and edema, Respiratory: Negative for shortness of breath, cough, wheezing, and pleuritic chest pain, Abdomen/GI: Negative for abdominal pain, nausea, vomiting, diarrhea, and constipation, Back: Negative for injury and pain, : Negative for injury, bleeding, discharge, and swelling, MS/Extremity: Negative for injury and deformity, Skin: Negative for injury, rash, and discoloration, Psych: Negative for depression, anxiety, suicide ideation, homicidal ideation, and hallucinations, Allergy/Immunology: Negative for hives, rash, and allergies, Endocrine: Negative for neck swelling, polydipsia, polyuria, polyphagia, and marked weight changes, Hematologic/Lymphatic: Negative for swollen nodes, abnormal bleeding, and unusual bruising. 08:32 Neuro: Positive for altered mental status. Exam: 08:32 Constitutional: This is a well developed, well nourished patient who is awake, alert, patricia and in no acute distress. Head/Face: Normocephalic, atraumatic. Eyes: Pupils equal round and reactive to light, extra-ocular motions intact. Lids and lashes normal. Conjunctiva and sclera are non-icteric and not injected. Cornea within normal limits. Periorbital areas with no swelling, redness, or edema. ENT: Nares patent. No nasal discharge, no septal abnormalities noted. Tympanic membranes are normal and external auditory canals are clear. Oropharynx with no redness, swelling, or masses, exudates, or evidence of obstruction, uvula midline. Mucous membranes moist. Neck: Trachea midline, no thyromegaly or masses palpated, and no cervical lymphadenopathy. Supple, full range of motion without nuchal rigidity, or vertebral point tenderness. No Meningismus. Chest/axilla: Normal chest wall appearance and motion. Nontender with no deformity. No lesions are appreciated. Respiratory: Lungs have equal breath sounds bilaterally, clear to auscultation and percussion. No rales, rhonchi or wheezes noted. No increased work of breathing, no retractions or nasal flaring. Abdomen/GI: Soft, non-tender, with normal bowel sounds. No distension or tympany. No guarding or rebound. No evidence of tenderness throughout. Back: No spinal tenderness. No costovertebral tenderness. Full range of motion. Female : Normal external genitalia. Skin: Warm, dry with normal turgor. Normal color with no rashes, no lesions, and no evidence of cellulitis. MS/ Extremity: Pulses equal, no cyanosis. Neurovascular intact. Full, normal range of motion. Neuro: Awake and alert, GCS 15, oriented to person, place, time, and situation. Cranial nerves II-XII grossly intact. Motor strength 5/5 in all extremities. Sensory grossly intact. Cerebellar exam normal. Normal gait. Psych: Awake, alert, with orientation to person, place and time. Behavior, mood, and affect are within normal limits. 08:32 Cardiovascular: Rate: tachycardic, Rhythm: regular, Pulses: Pulses are 4+ in bilateral radial, brachial, femoral, popliteal, posterior tibial and and dorsalis pedis arteries.. Heart sounds: normal, JVD: is not appreciated. Vital Signs: 08:04 BP 106 / 68; Pulse 123; Resp 16; Temp 98.1; Pulse Ox 100% on R/A; Weight 57.15 kg; hb Height 5 ft. 5 in. (165.10 cm); Pain 0/10; 09:00 BP 102 / 66; Pulse 82; Resp 14; Pulse Ox 100% on R/A; hb 09:56 BP 101 / 65; Pulse 77; Resp 15; Pulse Ox 9% on R/A; hb 08:04 Body Mass Index 20.97 (57.15 kg, 165.10 cm) hb 08:04 Johanna (FACES) hb MDM: 08:[address] [facility] 08:34 Data reviewed: vital signs, nurses notes, lab test result(s), EKG, radiologic studies, [facility] CT scan, plain films. 01/23 08:32 Order name: Basic Metabolic Panel; Complete Time: 09:33 [facility] 01/23 08:32 Order name: CBC with Diff; Complete Time: 09:27 [facility] 01/23 08:32 Order name: LFT's; Complete Time: 09:33 [facility] 01/23 08:32 Order name: Magnesium; Complete Time: 09:33 [facility] 01/23 08:32 Order name: NT PRO-BNP; Complete Time: 09:33 [facility] 01/23 08:32 Order name: PT-INR; Complete Time: 09:27 [facility] 01/23 08:32 Order name: Troponin (emerg Dept Use Only); Complete Time: 09:33 [facility] 01/23 08:32 Order name: Lipase; Complete Time: 09:33 [facility] 01/23 08:32 Order name: AMMONIA; Complete Time: 09:27 [facility] 01/23 08:32 Order name: Urine Culture [facility] 01/23 08:32 Order name: Blood Culture Adult (2) [facility] 01/23 08:32 Order name: Procalcitonin [facility] 01/23 10:31 Order name: Lactate EDMN 01/23 10:38 Order name: Urine Dipstick--Ancillary (enter results) 01/23 08:32 Order name: XRAY Chest (1 view) [facility] 01/23 08:32 Order name: EKG; Complete Time: 08:34 [facility] 01/23 08:32 Order name: Cardiac monitoring; Complete Time: 08:33 [facility] 01/23 08:32 Order name: EKG - Nurse/Tech; Complete Time: 08:33 [facility] 01/23 08:32 Order name: IV Saline Lock; Complete Time: 09:37 [facility] 01/23 08:32 Order name: Labs collected and sent; Complete Time: 09:37 [facility] 01/23 08:32 Order name: O2 Per Protocol; Complete Time: 08:33 [facility] 01/23 08:32 Order name: O2 Sat Monitoring; Complete Time: 08:33 [facility] 01/23 08:32 Order name: CT Head Brain wo Cont; Complete Time: 09:27 [facility] 01/23 08:32 Order name: Urine Dipstick-Ancillary (obtain specimen); Complete Time: 09:37 [facility] 01/23 10:47 Order name: Labs - recollect needed bd Administered Medications: 08:55 Drug: NS 0.9% 500 ml Route: IV; Rate: bolus; Site: PICC; hb 09:45 Follow up: Response: No adverse reaction; IV Status: Completed infusion; IV Intake: hb 500ml 09:35 Drug: Lactulose 30 grams Volume: 45 ml; Route: PO; hb 10:30 Follow up: Response: No adverse reaction hb 10:41 Drug: Rocephin - (cefTRIAXone) 1 grams Route: IVPB; Infused Over: 30 mins; Site: PICC; ss 10:45 Follow up: IV Status: Completed infusion; IV Intake: 10ml hb 11:20 Follow up: Response: No adverse reaction hb Disposition: 01/23/19 09:38 Hospitalization ordered by Jp Aleman for Inpatient Admission. Preliminary diagnosis are Unspecified cirrhosis of liver, Encephalopathy, unspecified - hepatic. - Bed requested for Telemetry/MedSurg (Inpatient). - Status is Inpatient Admission. hb - Condition is Fair. - Problem is new. - Symptoms have improved. UTI on Admission? No Signatures: Dispatcher [employer] EDMS Josefina Nunez Megan Crowley, KULDIP RN Keven Lynch MD MD cha Smirch, Shelby, KULDIP RN Izabela Siddiqui, KULDIP RN hb Corrections: (The following items were deleted from the chart) 10:31 09:38 Hospitalization Ordered by Jp Aleman MD for Inpatient Admission. Preliminary dw diagnosis is Unspecified cirrhosis of liver; Encephalopathy, unspecified - hepatic. Bed requested for Telemetry/MedSurg (Inpatient). Status is Inpatient Admission. Condition is Fair. Problem is new. Symptoms have improved. UTI on Admission? No. patricia 11:36 10:31 01/23/2019 09:38 Hospitalization Ordered by Jp Aleman MD for Inpatient hb Admission. Preliminary diagnosis is Unspecified cirrhosis of liver; Encephalopathy, unspecified - hepatic. Bed requested for Telemetry/MedSurg (Inpatient). Status is Inpatient Admission. Condition is Fair. Problem is new. Symptoms have improved. UTI on Admission? No. dw
--- NOTE | 2019-01-23 10:07 | RAD REPORT ---
EXAM DESCRIPTION: Jaswant Single View01/23/2019 9:25 am CLINICAL HISTORY: cough COMPARISON: November 2018 FINDINGS: The lungs appear clear of acute infiltrate. The heart is normal size. PICC line remains i n place. Right hemidiaphragm remains elevated IMPRESSION: No acute abnormalities displayed
[2019-01-23 10:43] LABS: Urine Blood TRACE (NEG); Urine Glucose NEGATIVE (NEG); Urine Protein NEGATIVE (NEG)
[2019-01-23] MEDS ORDERED: CEFTRIAXONE/SWI 1gm 1 GM/10 ML SYR ONE (10:50)
--- NOTE | 2019-01-23 12:00 | P.HP ---
Certification for Inpatient Patient admitted to: Inpatient With expected LOS: >2 Midnights Practitioner: I am a practitioner with admitting privileges, knowledge of patient current condition, hospital course, and medical plan of care. Services: Services provided to patient in accordance with Admission requirements found in Title 42 Section 412.3 of the Code of Federal Regulations Patient History Date of Service: 01/23/19 Reason for admission: Hepatic encephalopathy History of Present Illness: This is an 88-year-old female with past medical history of hepatitis-C with liver cirrhosis, recently discharged from the inpatient rehab. Patient had a complicated hospitalization at last visit due to requirements of paracentesis from her liver cirrhosis and ascites. Patient was finally discharged from inpatient rehab with schedule outpatient paracentesis. Per family at bedside, patient had been doing well since discharge until about 8:00 p.m. yesterday when it was noted that she was more sleepy and in coherent. Patient has been getting her medications as prescribed. Son has been staying with her and caring for her along with other family members. They state that patient has been eating really well, ambulating, communicating and exercising. She was brought to the ER by family members for decreased mentation and confusion. Her last paracentesis was about a week ago. In the ER, patient's blood pressure was 106/68, heart rate of 123, respirations of 16, afebrile at 98.1 and satting 100% on room air. Her head CT was negative for any acute abnormalities and chest x-ray was negative for any acute abnormalities. Her labs were remarkable for elevated total bilirubin, elevated direct bilirubin, elevated AST, alk-phos and ammonia level elevated at 76. Lactating urinalysis still pending. She received lactulose and IV fluids, 1 L bolus in the ER. At the time of my exam, patient was with decreased mentation, more sleepy. She was able to answer some questions, she was oriented to self only. She was admitted for further management of her hepatic encephalopathy. Allergies adhesive tape Allergy (Verified 12/29/18 16:59) Itching morphine Allergy (Verified 12/29/18 16:59) Itching/Hives/Rash Home medications list reviewed: Yes Home Medications: Gabapentin 1 cap PO TID 07/11/18 Magnesium Oxide [Magnesium] 1 tab PO BID 07/11/18 Lactulose [Cephulac*] 30 ml PO BID #1500 ml 04/15/19 Docusate [Colace Cap*] 100 mg PO BEDTIME #30 cap 12/29/18 Ensure Enlive 237 ml PO BID can 12/29/18 Midodrine HCl [Proamatine*] 10 mg PO BID #60 tab 12/29/18 Mupirocin Oint [Bactroban 2% Ointment*] 1 appl TOP BID #1 tube 12/29/18 Omeprazole [Prilosec] 40 mg PO 30 MIN BEFORE HS 12/29/18 Rifaximin [Xifaxan] 550 mg PO BID #60 tablet 12/29/18 Spironolactone [Aldactone*] 12.5 mg PO DAILY #30 tab 12/29/18 Propylene Glycol/Peg 400/Pf [Systane 0.3-0.4% Eye Drop] 1 drop EACH EYE Q4H PRN 01/05/19 Ferrous Sulfate [High Potency Iron] 27 mg PO DAILY 01/23/19 - Past Medical/Surgical History Diabetic: No -: liver cirrhosis -: colon cancer -: hep c -: back surgery -: knee surgery -: gallbladder removal -: tonsillectomy -: hysterectomy - Family History Father -: Heart disease Notes: [place] Mother Notes: lived till - Social History Alcohol use: No CD- Drugs: No Caffeine use: Yes Review of Systems 10-point ROS is otherwise unremarkable Physical Examination - Physical Exam General: In no apparent distress, Oriented x1, Other (Lethargic) Neck: Supple, 2+ carotid pulse no bruit, No LAD, Without JVD or thyroid abnormality Respiratory: Clear to auscultation bilaterally, Normal air movement Cardiovascular: Regular rate/rhythm, Normal S1 S2 Gastrointestinal: No tenderness, Distended, Ascites Musculoskeletal: No tenderness Integumentary: No rashes Neurological: Other (Lethargic, though able to communicate a little. No echolalia noted) - Studies Laboratory Data (last 24 hrs) 01/23/19 09:01: PT 13.1 H, INR 1.11 01/23/19 09:01: WBC 3.9 L, Hgb 10.6 L, Hct 30.8 L, Plt Count 100 L 01/23/19 09:01: Sodium 138, Potassium 3.9, BUN 33 H, Creatinine 1.07, Glucose 97 , Magnesium 2.2 D, Total Bilirubin 1.2 H, AST 52 H, ALT 32, Alkaline Phosphatase 129 H, Lipase 437 H Assessment and Plan - Problems (Diagnosis) (1) Hepatic encephalopathy Current Visit: Yes Status: Acute Plan: Likely secondary to liver cirrhosis secondary to hepatitis C - H&H remained stable, ammonia level elevated. - CT scan negative for any acute abnormalities - start lactulose and rifaximin. - pending infectious workup (2) Poorly controlled ascites Current Visit: No Status: Acute Plan: Acute on chronic ascites, secondary to chronic hepatitis-C and liver cirrhosis. Patient is already undergoing a scheduled outpatient paracentesis. Will continue to monitor for further need of paracentesis. (3) Hepatitis C Current Visit: No Status: Chronic Qualifiers: Viral hepatitis chronicity: chronic (4) Cirrhosis Onset Date: 07/12/18 Current Visit: No Status: Acute Qualifiers: (5) Elevated lipase Current Visit: Yes Status: Acute Plan: This could be secondary to pancreatitis versus dehydration. Patient denying any abdominal pain at this time, physical exam fairly normal. Will continue to monitor. Abdominal ultrasound pending - Plan DVT prophylaxis: Lovenox GI prophylaxis: None Diet: NPO due to risk of aspiration. Will restart diet once patient more alert Disposition: Admit to floor, pending symptomatic improvement. Continue lactulose, monitor labs. - Advance Directives Does patient have a Living Will: No Does patient have a Durable POA for Healthcare: No Time Spent Managing Pts Care (In Minutes): 55
[2019-01-23] MEDS ORDERED: ENOXAPARIN 40 MG/0.4 ML SQ SCH (13:00)
[2019-01-23 15:55] VITALS: BMI 20.9
[2019-01-23] MEDS ORDERED: PEG EACH EYE PRN (17:12)
[2019-01-23] MEDS ORDERED: PROPYLENE GLYCOL EACH EYE PRN (17:12)
[2019-01-23] MEDS: PANTOPRAZOLE 40MG TABLET PO SCH (20:30)
[2019-01-23] MEDS: HOME MED 1 EA UNK (Magnesium Oxide [Magnesium] 1 TAB) PO SCH (21:00)
[2019-01-23] MEDS ORDERED: Rifaximin 550 MG Tab PO SCH (21:00)
[2019-01-23] MEDS: MUPIROCIN 2% OINT 22GM TUBE TOP SCH (21:00)
[2019-01-23] MEDS: LACTULOSE 20 GM/30 ML UCUP PO SCH (21:29)
[2019-01-23] MEDS: ENSURE ENLIVE 237 ML CAN PO SCH (21:29)
[2019-01-23] MEDS: DOCUSATE NA 100 MG CAP PO SCH (21:29)
[2019-01-23] MEDS: MIDODRINE HCL 5 MG TABLET PO SCH (21:30)
[2019-01-23] MEDS: Rifaximin 550 MG Tab PO SCH (22:00)
[2019-01-24 06:39] LABS: Absolute Lymphocytes (CBC) 0.5 K/uL (0.7-4.9); Absolute Monocytes 0.4 K/uL (0.1-1.3); Absolute Neutrophil 2.9 K/uL (1.8-8.0); Basophils % 1.1 % (0-1.3); Eosinophils % 3.8 % (0-4.4); Hematocrit 30.5 % (36.0-45.0); Lymphocytes % 13.2 % (15.3-44.8); Monocytes % 10.2 % (3.3-12.3); RBC Red Blood Cell Count 3.28 M/uL (3.86-4.86)
[2019-01-24 06:54] LABS: Albumin 2.6 g/dL (3.4-5.0); Bilirubin Total 0.8 mg/dL (0.2-1.0); Potassium 3.8 mmol/L (3.5-5.1); Protein, Total 6.7 g/dL (6.4-8.2)
[2019-01-24] MEDS: FERROUS SULFATE 27 MG PO SCH ×2 (07:40→08:58)
[2019-01-24] MEDS: ENSURE ENLIVE 237 ML CAN PO SCH ×3 (07:40→21:00)
[2019-01-24] MEDS: LACTULOSE 20 GM/30 ML UCUP PO SCH ×3 (07:40→23:58)
[2019-01-24] MEDS: MIDODRINE HCL 5 MG TABLET PO SCH ×3 (07:41→23:59)
[2019-01-24] MEDS: Rifaximin 550 MG Tab PO SCH ×3 (07:41→21:00)
[2019-01-24] MEDS: HOME MED 1 EA UNK (Magnesium Oxide [Magnesium] 1 TAB) PO SCH ×2 (07:41→09:00)
--- NOTE | 2019-01-24 08:00 | EKG ---
Test Date: 2019-01-23 Test Time: 08:19:29 Housing Installer: LAWRENCE MEASUREMENT RESULTS: Intervals: Rate: 91 AK: 158 QRSD: 72 QT: 390 QTc: 479 [place]: P: 55 AK: 158 QRS: 51 T: 50 INTERPRETIVE STATEMENTS: Normal sinus rhythm Low voltage QRS Borderline ECG Compared to ECG 12/26/2018 20:22:12 Low QRS voltage now present Atrial premature complex(es) no longer present Electronically Signed On 01-24-19 07:57:24 CDT by Hi Meyer
[2019-01-24] MEDS: MUPIROCIN 2% OINT 22GM TUBE TOP SCH ×2 (08:54→23:59)
[2019-01-24] MEDS ORDERED: KCL 20 MEQ/100 mL IVPB 20 MEQ/100 ML BAG IV SCH (09:00)
--- NOTE | 2019-01-24 09:00 | RAD REPORT ---
EXAM DESCRIPTION: US - Abdomen Exam Complete - 01/24/2019 8:30 am CLINICAL HISTORY: Abdominal pain, ascites COMPARISON: November 2018 FINDINGS: Gallbladder is surgically absent. Common bile duct is normal with no common duct stone mary alice ntified. Liver is 12 cm in maximum dimension. There is a coarsened parenchymal echogenicity and nodul ar capsular contour. No focal liver lesion is identifiable. Spleen is 10 cm with no focal splenic fin ding. The pancreas is obscured. No hydronephrosis or suspicious mass in either kidney. A 12 millimeter exophytic cyst is present lowe r pole left kidney. An 8 millimeter cyst is present in left lower kidney as well. Aorta and IVC are partially obscured. No bulky lymphadenopathy. Ascites is present along the liver and spleen capsules. This is not felt to be a drainable quantity o f ascites. IMPRESSION: Status post cholecystectomy with no biliary tree dilatation. Ascites is present adjacent to the liver and spleen. This is not a drainable quantity of ascites. Cirrhotic liver changes without a focal liver parenchymal lesion identifiable. Pancreas, aorta and IVC are too obscured by bowel gas for assessment.
--- NOTE | 2019-01-24 17:07 | PN ---
Date of Progress Note: 01/24/2019 History: The patient was seen and examined. Chart reviewed and case discussed with RN. The patient seems to be getting close to her baseline mental status according to her son. The patient is appare ntly much more awake and alert from compared to previous. I am familiar with this patient from her p revious hospitalization. Medications: List reviewed. Code Status: DNR. Physical Examination: Vital Signs: Temperature 97.6, heart rate 87, blood pressure 110/55, respirations 16, O2 of 95% on r oom air. General: Awake, alert, and oriented x3. Elderly female, frail, cachectic, hard of hearing. CV: S1, S2. Regular, rate, and rhythm. Peripheral pulses present. Respiratory: Moving air well bilaterally. No wheezing or stridor. Gastrointestinal: Abdomen is soft, nontender, nondistended. Positive bowel sounds. Extremities: No clubbing, cyanosis. Pedal edema is present. Neurologic: Cranial nerves 2-12 intact grossly. No focal neurological deficit. Speech is normal. Laboratory Data: Sodium 140, potassium 3.8, chloride 108, CO2 27, BUN 27, creatinine 1.04, glucose 1 49, calcium 8.2, albumin 2.6. WBC 4, H and H 10.5 and 30.5, and platelets 108. Blood cultures no growth to date. Urine culture no growth to date. Abdomen ultrasound shows status post cholecystectomy with no biliary tree dilatation. Ascites is pre sent adjacent to the liver and spleen. There is no drainable quantity of ascites. Cirrhotic liver c hanges without a focal liver parenchymal lesion identifiable. Pancreas aorta in inferior vena cava, too obscured by bowel gas for assessment. 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 Ammonia level was elevated. The patient received lactulose. We will repeat ammonia level in a.m. Mental status is re turning to baseline, significantly improved. CT scan of the head was negative. Blood cultures are n egative. Urine culture is also negative. 2.Chronic hepatitis C without coma with ascites. The patient has been undergoing paracentesis as an outpatient basis with subsequent albumin infusions currently. Abdominal ultrasound does not show an y significant ascites. We will continue to monitor. 3.Liver cirrhosis secondary to above. 4.Elevated lipase level, barely elevated above baseline. I doubt any sort of pancreatitis. Abdomin al ultrasound was unable to image the pancreas. However, the patient does not have any clinical sign s or symptoms. We will continue to reassess. 5.Normocytic normochromic anemia likely anemia of chronic disease. We will monitor H and H and alvarez sfuse as needed. 6.Moderate protein-calorie malnutrition. Albumin is 2.6. We will continue supplements. Plan, resume home medications as appropriate. Discontinue urinary Otero catheter. Continue with PT eval. Physical therapy recommending skilled physical therapy services. We will consult rehab for in patient services. The patient is agreeable. /GLYNN Voice ID: [id number] Report ID: [id number]
[2019-01-24] MEDS: DOCUSATE NA 100 MG CAP PO SCH (23:58)
[2019-01-24] MEDS: PANTOPRAZOLE 40MG TABLET PO SCH (23:59)
[2019-01-25 04:43] LABS: Absolute Lymphocytes (CBC) 0.9 K/uL (0.7-4.9); Absolute Monocytes 0.5 K/uL (0.1-1.3); Absolute Neutrophil 2.6 K/uL (1.8-8.0); Basophils % 1.1 % (0-1.3); Eosinophils % 5.8 % (0-4.4); Hematocrit 30.9 % (36.0-45.0); Lymphocytes % 20.1 % (15.3-44.8); MPV 8.8 fL (7.6-11.3); Monocytes % 12.3 % (3.3-12.3); RBC Red Blood Cell Count 3.28 M/uL (3.86-4.86)
[2019-01-25 04:57] LABS: Albumin 2.5 g/dL (3.4-5.0); Bilirubin Total 0.8 mg/dL (0.2-1.0); Potassium 3.8 mmol/L (3.5-5.1); Protein, Total 6.5 g/dL (6.4-8.2)
[2019-01-25] MEDS ORDERED: KCL 20 MEQ/100 mL IVPB 20 MEQ/100 ML BAG IV SCH (06:00)
[2019-01-25] MEDS: Rifaximin 550 MG Tab PO SCH (09:00)
[2019-01-25 09:37] VITALS: O2SAT 96
[2019-01-25] MEDS: LACTULOSE 20 GM/30 ML UCUP PO SCH (10:32)
[2019-01-25] MEDS: MIDODRINE HCL 5 MG TABLET PO SCH (10:32)
[2019-01-25] MEDS: ENSURE ENLIVE 237 ML CAN PO SCH (10:33)
[2019-01-25] MEDS: MUPIROCIN 2% OINT 22GM TUBE TOP SCH (10:35)
[2019-01-25 12:35] VITALS: BP 160/55; TEMP 98.8
--- NOTE | 2019-01-25 17:12 | P.DS ---
Admission Date: 01/23/19 Discharge Date: 01/25/19 Disposition: DC HOME/HOME HEALTH CARE Discharge Condition: FAIR Reason for Admission: Hepatic encephalopathy Brief History of Present Illness: From H&P This is an 88-year-old female with past medical history of hepatitis-C with liver cirrhosis, recently discharged from the inpatient rehab. Patient had a complicated hospitalization at last visit due to requirements of paracentesis from her liver cirrhosis and ascites. Patient was finally discharged from inpatient rehab with schedule outpatient paracentesis. Per family at bedside, patient had been doing well since discharge until about 8:00 p.m. yesterday when it was noted that she was more sleepy and in coherent. Patient has been getting her medications as prescribed. Son has been staying with her and caring for her along with other family members. They state that patient has been eating really well, ambulating, communicating and exercising. She was brought to the ER by family members for decreased mentation and confusion. Her last paracentesis was about a week ago. In the ER, patient's blood pressure was 106/68, heart rate of 123, respirations of 16, afebrile at 98.1 and satting 100% on room air. Her head CT was negative for any acute abnormalities and chest x-ray was negative for any acute abnormalities. Her labs were remarkable for elevated total bilirubin, elevated direct bilirubin, elevated AST, alk-phos and ammonia level elevated at 76. Lactating urinalysis still pending. She received lactulose and IV fluids, 1 L bolus in the ER. Hospital Course: Pt is an 88 y/o F w/ PMHx of Hep C w liver cirrhosis. Patient was recently DC from rehab. Comes in with AMS. Likely related to hepatic encephalopathy. Head CT was negative. Pt ammonia was elevated. Given lactulose. Her mental status improved. She was evaluated by PT and was recommended inpt rehab. She was referred however denied. Patient was doing better with PT now that her mental status improved. Pt was then agreeable to go home w HH w PT. She was DC home in a stable condition Vital Signs/Physical Exam: Temp Pulse Resp BP Pulse Ox 98.8 F 91 H 18 160/55 H 98 01/25/19 12:00 01/25/19 12:00 01/25/19 12:00 01/25/19 12:01/25/19 12:00 General: Alert, In no apparent distress, Oriented x3 HEENT: Atraumatic, PERRLA, EOMI Neck: Supple, JVD not distended Respiratory: Clear to auscultation bilaterally, Normal air movement Cardiovascular: Regular rate/rhythm, Normal S1 S2 Gastrointestinal: Normal bowel sounds, No tenderness, Distended Musculoskeletal: No tenderness Integumentary: No rashes Neurological: Normal speech, Normal tone, Normal affect Laboratory Data at Discharge: WBC 4.3 K/uL (4.3-10.9) 01/25/19 04:16 Hgb 10.6 g/dL (12.0-15.0) L 01/25/19 04:16 Hct 30.9 % (36.0-45.0) L 01/25/19 04:16 Plt Count 103 K/uL (152-406) L 01/25/19 04:16 PT 13.1 SECONDS (9.5-12.5) H 01/23/19 09:01 INR 1.11 01/23/19 09:01 Sodium 139 mmol/L (136-145) 01/25/19 04:16 Potassium 3.8 mmol/L (3.5-5.1) 01/25/19 04:16 BUN 24 mg/dL (7-18) H 01/25/19 04:16 Creatinine 1.02 mg/dL (0.55-1.3) 01/25/19 04:16 Glucose 116 mg/dL (74-106) H 01/25/19 04:16 Magnesium 2.2 mg/dL (1.8-2.4) D 01/23/19 09:01 Total Bilirubin 0.8 mg/dL (0.2-1.0) 01/25/19 04:16 AST 57 U/L (15-37) H 01/25/19 04:16 ALT 32 U/L (12-78) 01/25/19 04:16 Alkaline Phosphatase 134 U/L (45-117) H 01/25/19 04:16 Lipase 437 U/L (73-393) H 01/23/19 09:01 Home Medications: Gabapentin 1 cap PO TID 07/11/18 Magnesium Oxide [Magnesium] 1 tab PO BID 07/11/18 Lactulose [Cephulac*] 30 ml PO BID #1500 ml 12/12/18 Docusate [Colace Cap*] 100 mg PO BEDTIME #30 cap 12/29/18 Ensure Enlive 237 ml PO BID can 12/29/18 Midodrine HCl [Proamatine*] 10 mg PO BID #60 tab 12/29/18 Mupirocin Oint [Bactroban 2% Ointment*] 1 appl TOP BID #1 tube 12/29/18 Omeprazole [Prilosec] 40 mg PO 30 MIN BEFORE HS 12/29/18 Rifaximin [Xifaxan] 550 mg PO BID #60 tablet 12/29/18 Propylene Glycol/Peg 400/Pf [Systane 0.3-0.4% Eye Drop] 1 drop EACH EYE Q4H PRN 01/05/19 Ferrous Sulfate [High Potency Iron] 27 mg PO DAILY 01/23/19 Patient Discharge Instructions: f/up w PCP in 2-3 days. f/up w GI Dr. Dunn in 2 weeks. Return to ER for worsening condition Diet: Low sodium (1500ml fluid restriction) Activity: Fall precautions Followup: Fareed Ballesteros DO, DO [ACTIVE - CAN ADMIT] - Garrett Dunn MD [ACTIVE - CAN ADMIT] -
== END 2019-01-25 17:27 | disposition home health service (06) ==
LOC: ER 08:00 → INTOOBSV 10:18 → ERHOLD 10:18 → 4TH 11:13
PROVIDERS: ADMIT Family Medicine; ATTEND Family Medicine
DX: K72.90 Hepatic failure, unspecified without coma (principal); K74.60 Unspecified cirrhosis of liver; B18.2 Chronic viral hepatitis C; K71.51 Toxic liver disease with chronic active hepatitis with ascites; D64.9 Anemia, unspecified; E44.0 Moderate protein-calorie malnutrition; R79.89 Other specified abnormal findings of blood chemistry; Z66 Do not resuscitate; Z79.899 Other long term (current) drug therapy
CPT/HCPCS: 96361; 93005; 87040 ×2; 87088; 85025 ×3; 87086; 80048; 36415 ×2; 82140 ×2; 83735; 85610; 80076; 83605; 81003; 84484; 83690; 80053 ×2; 84145; 83880; 70450; 71045; 76700; 97116 ×4; 97163; 94760 ×6; 96374; 99285; J0696; J7030; G0378 ×2; J1650

== ENCOUNTER 2019-02-03 14:18 | Emergency (ER) | payer OTHER ==
--- OUTSIDE RECORDS SUMMARY | 2019-02-03 14:22 | XMS REPORT | Clinical Summary ---
:1930 Author Organization [facility] Address [address] [place] [address] Care Team Providers Name Role Phone Kandy Castillo PA-C Physician Luster Applicator Unavailable Ankush Levine Referring Physician Fareed Ballesteros [...] daily. capsule rifAXIMin 550 mg Tab Take 1 tablet 60 tablet 11 12/27/2018 Active (550 mg total) by mouth 2 (two) times daily. lactulose Take 30 mLs (20 8100 mL 3 02/03/2019 Active (CHRONULAC) 10 g total) by gram/15 mL (15 mL) mouth 3 (three) solution times daily. lactulose Take 30 ml 2-3 [...] gram/15 mL (15 mL) times daily. solution lactulose Take 30 mLs (20 8100 mL 3 11/01/2018 Discontinued (CHRONULAC) 10 g total) by 9 gram/15 mL (15 mL) mouth 3 (three) solution times daily. Active Problems Problem Noted Date Encephalopathy [...] infection 09/06/2014 Overview: SNOMED/[place] [id number] Last Assessment & Plan: Cirrhosis of liver [...] Encounters Date Type Specialty Care Team Description 02/03/2019 Orders Only HepatXiao Cesar RN 12/27/2018 Orders Only HepatXiao Cesar RN 11/01/2018 Orders Only Pennie Bahena RN 10/20/2018 Abstract Yvonne James MA 10/17/2018 Telephone HepatKandy Linares, Follow-up PA-C 09/30/2018 Abstract Pennie Bahena RN 09/30/2018 Telephone Pennie Bahena RN Pending imaging 09/30/2018 Abstract Pennie Bahena RN 09/20/2018 Documentation HepatXiao Cesar RN 09/12/2018 Telephone HepatXiao Cesar RN other 08/11/2018 Telephone HepatXiao Cesar RN other 08/10/2018 Office Visit Hepatology Lynn Murguia MD 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); [facility], [facility] Screening for cancer; Hepatology Clinic E Encephalopathy; Abnormal breath sounds 07/11/2018 Telephone Xiao Cole RN other 05/31/2018 Telephone HepatXiao Cesar RN other 05/13/2018 Abstract HepatYvonne Braun MA 04/07/2018 Orders Only Hepatology Kandy Castillo, Screening for malignant neoplasm (Primary Dx); PA-C 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) 04/07/2018 Telephone Kandy Brizuela, Follow-up PA-C 03/08/2018 Abstract Hepatology Rosemarie Bui E 02/25/2018 Documentation Hepatology Lissette Solorio RN after [...] Taken Blood Pressure 94/60 08/10/2018 2:08 PM MANAGEMENT ARCHITECT Pulse 92 08/10/2018 2:08 PM MANAGEMENT ARCHITECT Temperature 36.3 C (97.4 F) 08/10/2018 2:08 PM MANAGEMENT ARCHITECT Respiratory Rate 16 08/10/2018 2:08 PM MANAGEMENT ARCHITECT Oxygen Saturation 98% 08/10/2018 2:08 PM MANAGEMENT ARCHITECT Inhaled Oxygen Concentration - - Weight 58.2 kg (128 lb 6.4 oz) 08/10/2018 2:08 PM MANAGEMENT ARCHITECT Height 165.1 cm (5' 5") 08/10/2018 2:08 PM MANAGEMENT ARCHITECT Body Mass Index 21.37 08/10/2018 2:08 PM MANAGEMENT ARCHITECT Plan of Treatment Date Type Specialty Care Team Description 02/08/2019 Office Visit Hepatology Resource, [facility] Hepatology Clinic A Procedures Procedure Name Priority Date/Time Associated Comments Diagnosis CBC W/PLT COUNT & Routine 08/10/2018 3:45 Hepatic cirrhosis Results for this AUTO DIFFERENTIAL PM MANAGEMENT ARCHITECT due to chronic procedure are in hepatitis C the results infection (HCC) section. Screening for cancer Encephalopathy AMMONIA Routine 08/10/2018 3:45 Hepatic cirrhosis Results for this PM MANAGEMENT ARCHITECT due to chronic procedure are in hepatitis C the results infection (HCC) section. Screening for cancer Encephalopathy ALPHA FETOPROTEIN Routine 08/10/2018 3:45 Hepatic cirrhosis Results for this (AFP), TUMOR MARKER PM MANAGEMENT ARCHITECT due to chronic procedure are in hepatitis C the results infection (HCC) section. Screening for cancer Encephalopathy PROTHROMBIN TIME/INR Routine 08/10/2018 3:45 Hepatic cirrhosis Results for this PM MANAGEMENT ARCHITECT due to chronic procedure are in hepatitis C the results infection (HCC) section. Screening for cancer Encephalopathy CBC W/PLT COUNT & Routine 08/10/2018 3:45 Hepatic cirrhosis Results for this AUTO DIFFERENTIAL PM MANAGEMENT ARCHITECT due to chronic procedure are in hepatitis C the results infection (HCC) section. Screening for cancer Encephalopathy HEPATIC FUNCTION Routine 08/10/2018 3:45 Hepatic cirrhosis Results for this PANEL PM MANAGEMENT ARCHITECT due to chronic procedure are in hepatitis C the results infection (HCC) section. Screening for cancer Encephalopathy BASIC METABOLIC PANEL Routine 08/10/2018 3:45 Hepatic cirrhosis Results for this (7) PM MANAGEMENT ARCHITECT due to chronic procedure are in hepatitis C the results infection (HCC) section. Screening for cancer Encephalopathy after 02/02/2018 Results CBC with platelet count + automated diff (08/10/2018 3:45 PM MANAGEMENT ARCHITECT) WBC 5.0 3.5 - 10.5 K/L [facility] RBC 3.39 (L) 3.93 - 5.22 M/L [facility] Hemoglobin 10.7 (L) 11.2 - 15.7 GM/DL [facility] Hematocrit 33.1 (L) 34.1 - 44.9 % [facility] MCV 97.6 (H) 79.4 - 94.8 fL [facility] MCH 31.6 25.6 - 32.2 pg [facility] MCHC 32.3 32.2 - 35.5 GM/DL [facility] RDW 15.0 (H) 11.7 - 14.4 % [facility] Platelets 98 (L) 150 - 450 K/CU MM [facility] MPV 10.0 9.4 - 12.3 fL [facility] nRBC 0 0 - 0 /100 WBC [facility] % Neutros 71 % [facility] % Lymphs 14 % [facility] % Monos 12 % [facility] % Eos 2 % [facility] % Baso 1 % [facility] # Neutros 3.51 1.56 - 6.13 K/L [facility] # Lymphs 0.69 (L) 1.18 - 3.74 K/L [facility] # Monos 0.62 (H) 0.24 - 0.36 K/L [facility] # Eos 0.10 0.04 - 0.36 K/L [facility] # Baso 0.04 0.01 - 0.08 K/L [facility] Immature Granulocytes-Relative 0 0 - 1 % [facility] Specimen Blood Performing Organization Address City/State/Zipcode Phone Number [address] [address] [phone] [place] Alpha fetoprotein (AFP), tumor marker (08/10/2018 3:45 PM MANAGEMENT ARCHITECT) Alpha-Fetoprotein 2.9 <10.0 ng/mL [facility] Specimen Blood Performing Organization Address City/[facility] Phone Number [address] [address] [phone] C[facility] Pro-time/INR (08/10/2018 3:45 PM MANAGEMENT ARCHITECT) Protime 16.5 (H) 11.7 - 14.7 seconds [facility] INR 1.3 <=5.9 [facility] Specimen Blood Narrative Performed At RECOMMENDED COUMADIN/WARFARIN INR THERAPY [facility] RANGES STANDARD DOSE: 2.0 - 3.0 Includes: PROPHYLAXIS for venous thrombosis, systemic embolization; TREATMENT for venous thrombosis and/or pulmonary embolus. HIGH RISK: Target INR is 2.5-3.5 for patients with mechanical heart valves. Performing Organization Address City/State/Zipcode Phone Number [address] [address] [phone] CENTER Ammonia (08/10/2018 3:45 PM MANAGEMENT ARCHITECT) Ammonia 40 18 - 72 mol/L [facility] Specimen Blood Performing Organization Address City/[facility]/Zipcode Phone Number [address] [address] [phone] [place] Hepatic function panel (08/10/2018 3:45 PM MANAGEMENT ARCHITECT) Protein, Total 9.0 (H) 6.0 - 8.3 gm/dL [facility] Albumin 2.8 (L) 3.5 - 5.0 g/dL [facility] Total Bilirubin 1.2 0.2 - 1.2 mg/dL [facility] Bilirubin, Direct 0.7 (H) 0.1 - 0.5 mg/dL [facility] Alkaline Phosphatase 111 40 - 150 U/L [facility] AST 31 5 - 34 U/L [facility] ALT 12 6 - 55 U/L [facility] Specimen Blood Performing Organization Address City/[facility]/Zipcode Phone Number [address] [address] [place] Basic Metabolic Panel (08/10/2018 3:45 PM MANAGEMENT ARCHITECT) Sodium 133 (L) 136 - 145 meq/L [facility] Potassium 4.0 3.5 - 5.1 meq/L [facility] Chloride 100 98 - 107 meq/L [facility] CO2 27 22 - 29 meq/L [facility] BUN 20 7 - 21 mg/dL [facility] Creatinine 1.07 0.57 - 1.25 mg/dL [facility] Glucose 71 70 - 105 mg/dL [facility] Calcium 9.4 8.4 - 10.2 mg/dL [facility] EGFR 49Comment: ESTIMATED GFR IS mL/min/1.73 sq m [facility]ENTERCompierePUT[facility] NOT ACCURATE [facility] CLEARANCE IN PREDICTING GLOMERULAR FILTRATION RATE. ESTIMATED GFR IS NOT APPLICABLE FOR DIALYSIS PATIENTS. Specimen Blood Performing Organization Address City/State/Zipcode Phone Number [facility]ENTERCompierePUTNAM [facility] [address] [place] [address] [phone] CENTER after 02/02/2018 Insurance Payer Benefit Plan / Group Subscriber ID Type Phone Address MEDICARE MEDICARE A B xxxxxxxxxxx Medicare [facility] GENERIC MEDICARE xxxxxxxxx [employer] SUPPLEMENT/INDIVIDUAL SUPPLEMENT
--- OUTSIDE RECORDS SUMMARY | 2019-02-03 14:31 | XMS REPORT | Continuity of Care Document ---
[...] DX:153.9=ADENOCARC 014 [place] INOMA V10.05 Active 014 [facility] Umbilical Active Problem 04/24/2017 Data migrated hernia<sup>2</sup> 014 from [facility] Centricity on 01/28/15. Umbilical Active Problem 01/17/2018 Data migrated Medical hernia<sup>5</sup> 014 from [facility] Cent[facility]ity on [facility] 01/28/15. UMB HERNIA WITHOUT Active Condition 04/27/2014 Medical MENTION 014 Group OBSTRUCTION/GANGRE NE LARGE INTESTINE Active Condition 04/27/2014 Medical CANCER 012 Group SCREENING FOR Active Condition 04/27/2014 [facility] COLON CANCER 012 Group Carcinoma of Active Problem 01/17/2018 Data migrated ascending 011 from [facility] colon<sup>1</sup> Centricity on [facility] 01/28/15. Group CARCINOMA, Active Condition 04/27/2014 [facility] ASCENDING COLON 011 Group Cancer of colon Active Problem 01/17/2018 011 [facility] CH - Chronic Active Problem 04/24/2017 hepatitis [facility] DVT (<span Resolved Problem 04/24/2017 ID="[id number]">C [facility] onfirmed</span>) Bronchitis Resolved Problem 01/17/2018 [facility] CAD - Coronary Active Problem 01/17/2018 artery disease [facility] CH - Chronic Active Problem 01/17/2018 blood Medical hepatitis<sup>2</s transfusion Group, up> 1965 [facility] Chemotherapy Resolved Problem 01/17/2018 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 Cirrhosis of liver Active Problem 01/17/2018 [facility] Colon cancer Resolved Problem 01/17/2018 [facility] DVT (<span Resolved Problem 01/17/2018 1966 Medical ID="[id number]">C Group, onfirmed</span>)<s [place] up>3, 4</sup> SOB on Active Problem 01/17/2018 Medical exertion(<span Group, ID="[id number]"> [place] Confirmed</span>) Esophageal varices Active Problem 01/17/2018 [facility] Hepatitis C Active Problem 01/17/2018 [facility] Hernia repair Resolved Problem 01/17/2018 [facility] History of colon Active Problem 01/17/2018 cancer [facility] Incisional hernia Active Problem 01/17/2018 [facility] Kidney stones Active Problem 01/17/2018 Medical Group,[facility] Neuropathy Active Problem 01/17/2018 [facility] Pneumonia Active Problem 01/17/2018 [facility] Recurrent UTI Active Problem 01/17/2018 Medical Group Unspecified Active Diagnosis 08/26/2015 2..1. infectious disease [id number] 1. Bacterial Active Diagnosis 08/26/2015 2.0.1. infection [id number] 1. Other Active Diagnosis 08/26/2015 2.0.1. encephalopathy [id number] 1. Esophageal varices Active Diagnosis 08/26/2015 2.16840.1. [id number] 1. Hepatic cirrhosis Active Diagnosis 08/26/2015 2.16840.1. [id number] 1. UTI Active Problem 08/26/2015 2.16.840.1. [id number] MALIGNANT MIGEL Active MH COLON NOS [facility] 153.9 Active MH [facility] HEPATOPULMONARY Active MH SYNDROME [facility] HX OF COLONIC Active MH MALIGNANCY [facility] URIN TRACT Active MH INFECTION NOS [facility] INCISIONAL HERNIA Active MH [facility] MALIGNANT NEOPLASM Active MH OF COLON, [facility] UNSPECIFIED PERSONAL HISTORY Active MH OF MALIGNANT [facility] NEOPLASM O CALCULUS OF KIDNEY Active MH [facility] Medications Medication Details Route Status Patient Ordering Order Source Instructions Provider Date Acetaminophen 2 tab, PO, Active 300 MG / Q6H, PRN 2016 [facility] Codeine Pain, X 7 Phosphate 30 MG day, # 56 Oral Tablet tab, 0 [Tylenol with Refill(s) Codeine #3] esmolol (ANES) Route: IV, Inactive Drug form: 2016 [facility] INJ, ONCE, Stop date: 08/03/17 13:22:00 DATA SCIENCES DIRECTOR ondansetron Route: IV, Inactive (ANES) Drug form: 2016 [facility] INJ, ONCE, Stop date: 08/03/17 13:07:00 DATA SCIENCES DIRECTOR propofol (ANES) Route: IV, Inactive Drug form: 2016 [facility] INJ, ONCE, Stop date: 08/03/17 13:07:00 DATA SCIENCES DIRECTOR lidocaine Route: IV, Inactive (ANES) Drug form: 2016 [facility] INJ, ONCE, Stop date: 08/03/17 13:07:00 DATA SCIENCES DIRECTOR ciprofloxacin Route: IV, Inactive (ANES) Drug form: 2016 [facility] INJ, ONCE, Stop date: 08/03/17 13:07:00 DATA SCIENCES DIRECTOR dexamethasone Route: IV, Inactive (ANES) Drug form: 2016 [facility] INJ, ONCE, Stop date: 08/03/17 13:07:00 DATA SCIENCES DIRECTOR fentaNYL (ANES) Route: IV, Inactive Drug form: 2016 [facility] INJ, ONCE, Stop date: 08/03/17 13:02:00 DATA SCIENCES DIRECTOR Calcium 1,000 mL, Inactive Chloride 0.0014 Rate: 25 2016 MEQ/ML / ml/hr, Infuse Potassium over: 40 hr, Chloride 0.004 Route: IV, MEQ/ML / Sodium Dosing Weight Chloride 0.103 74.091 kg, MEQ/ML / Sodium Total Volume: Lactate 0.028 1,000, Start MEQ/ML date: Injectable 08/03/17 Solution 12:12:00 DATA SCIENCES DIRECTOR, Duration: 30 day, Stop date: 09/02/17 12:11:00 DATA SCIENCES DIRECTOR, 1.86, m2 vancomycin Route: IV, Inactive (ANES) 1000 mg Drug form: 2016 [facility] INJ, Start date: 08/03/17 12:10:00 DATA SCIENCES DIRECTOR, Stop date: 08/03/17 13:10:00 DATA SCIENCES DIRECTOR Lactated Route: IV, Inactive Ringers Total Volume: 2016 [facility] Injection IV 1,000, Start (ANES) 1000 mL date: 08/03/17 12:10:00 DATA SCIENCES DIRECTOR, Stop date: 08/03/17 13:10:00 DATA SCIENCES DIRECTOR Ceftriaxone 1 gm, Route: No Longer IVPB, Q12H, Active 2016 [facility] Dosing Weight 74.091, kg, Start date: 08/02/17 21:00:00 DATA SCIENCES DIRECTOR, Duration: 24 hr, Stop date: 08/03/17 9:00:00 DATA SCIENCES DIRECTOR, ABX Indication: Urinary Tract Infection phenylephrine Route: IV, Inactive (ANES) Drug form: 2016 [facility] INJ, ONCE, Stop date: 04/21/17 10:51:00 CDT ondansetron Route: IV, Inactive (ANES) Drug form: 2016 [facility] INJ, ONCE, Stop date: 04/21/17 10:41:00 CDT dexamethasone Route: IV, Inactive (ANES) Drug form: 2016 [facility] INJ, ONCE, Stop date: 04/21/17 10:41:00 CDT ceFAZolin Route: IV, Inactive (ANES) Drug form: 2016 [facility] INJ, ONCE, Stop date: 04/21/17 10:41:00 CDT lidocaine Route: IV, Inactive (ANES) Drug form: 2016 [facility] INJ, ONCE, Stop date: 04/21/17 10:41:00 CDT propofol (ANES) Route: IV, Inactive Drug form: 2016 [facility] INJ, ONCE, Stop date: 04/21/17 10:41:00 CDT fentaNYL (ANES) Route: IV, Inactive Drug form: 2016 [facility] INJ, ONCE, Stop date: 04/21/17 10:41:00 CDT acetaminophen Route: IV, Inactive (ANES) (ANES) Drug form: 2016 [facility] INJ, Start date: 04/21/17 10:35:00 CDT, Stop date: 04/21/17 11:35:00 CDT sodium chloride Route: IV, Inactive 0.9% 500 ml INJ Total Volume: 2016 [facility] (ANES) 500, Start date: 04/21/17 10:08:00 CDT, Stop date: 04/21/17 11:08:00 CDT Calcium 1,000 mL, Inactive Chloride 0.0014 Rate: 25 2016 [facility] MEQ/ML / ml/hr, Infuse Potassium over: 40 hr, Chloride 0.004 Route: IV, MEQ/ML / Sodium Dosing Weight Chloride 0.103 74.545 kg, MEQ/ML / Sodium Total Volume: Lactate 0.028 1,000, Start MEQ/ML date: Injectable 04/21/17 Solution 9:53:00 CDT, Duration: 30 day, Stop date: 05/21/17 9:52:00 CDT Ocuvite 1 tab, PO, Active Daily, 0 2016 [facility] Refill(s) Furosemide 40 40 mg=1 tab, Active MG Oral Tablet PO, Daily, 0 2016 [facility] Refill(s) Vitamin D3 2000 2,000 Active intl units oral IntlUnit=1 2016 [facility] tablet tab, PO, Daily, 0 Refill(s) Albuterol 0.833 3 mL, Route: Inactive MG/ML / NEB, Drug 2016 [facility] Ipratropium Form: SOLN, Wilcox 0.167 Dosing Weight MG/ML Inhalant 76.364, kg, Solution ONCE, STAT, Start date: 02/23/17 9:22:00 CDT, Stop date: 02/23/17 9:22:00 CDTNotes: (Same as: Nolbertob) Sodium Chloride 500 mL, Rate: Inactive 0.154 MEQ/ML 25 ml/hr, 2016 [facility] Injectable Infuse over: Solution 20 hr, Route: IV, Dosing Weight 76.364 kg, Total Volume: 500, Start date: 02/23/17 9:22:00 CDT, Duration: 1 day, Stop date: 02/24/17 9:21:00 CDT Lasix 20 mg, 1 tab, No Longer Route: PO, Active 2014 [facility] Drug form: TAB, Daily, Dosing Weight 73.295, kg, Start date: 08/08/15 9:00:00, Duration: 30 day, Stop date: 09/06/15 9:00:00Notes: (Same as: Lasix) May cause GI upset. Give with food or milk. Spironolactone 12.5 mg, 0.5 No Longer tab, Route: Active 2014 [facility] PO, Drug form: TAB, Daily, Dosing Weight [...] 20 mL, Route: Inactive IVP, Start 2014 [facility] date: 08/07/15 12:19:00, Duration: 30 day, Stop date: 09/06/15 12:18:00, PRN Line FlushNotes: preservative free. sodium chloride 10 mL, Route: Inactive IVP, Start 2014 [facility] date: 08/07/15 12:18:00, Duration: 30 day, Stop date: 09/06/15 12:17:00, PRN Line FlushNotes: preservative free. ciprofloxacin 500 mg=1 tab, Active 500 mg oral PO, Q12H, X 2014 [facility] tablet 10 day, # 20 tab, 0 Refill(s) Cephalexin 500 500 mg=1 cap, Inactive MG Oral Capsule PO, TID, X 10 2014 [Keflex] day, # 30 cap, 0 Refill(s) Docusate Sodium 100 mg, 1 Inactive 100 MG Oral cap, Route: 2014 [facility] Capsule PO, Drug [Colace] form: CAP, Daily, Dosing Weight 73.295, kg, PRN Constipation, Start date: 08/07/15 11:09:00, Duration: 30 day, Stop date: 09/06/15 11:08:00Notes : (Same as: Colace) (Do Not Crush) Ibuprofen 400 mg, 1 Inactive tab, Route: 2014 [facility] PO, Drug form: TAB, ONCE, Dosing Weight 73.295, kg, PRN Headache 1-5, Start date: 08/06/15 21:10:00, Stop date: 08/06/15 21:10:00Notes : (Same as: Motrin) "Do Not Crush" Give with food. Lasix PO, Daily, 0 Active Refill(s) 2014 [facility] Rocephin 1 gm, Route: No Longer IVPB, Active 2014 [facility] [id number], Dosing Weight 73.295, kg, Start date: 08/06/15 9:00:00, Duration: 30 day, Stop date: 09/04/15 9:00:00Notes: (Same As: Rocephin). Use with 100 mL NS and infuse over 30 min MEDICATION WASTE Product Size: 1000 mg Product Wasted: ___ mg Lactulose 10 gm, 15 ml, Inactive Route: PO, 2014 [facility] Drug Form: SYRP, Dosing Weight 73.295, kg, ONCE, Start date: 08/06/15 3:49:00, Stop date: 08/06/15 3:49:00Notes: (Same as:Chronulac) Ondansetron 4 mg, 2 mL, No Longer Route: IVP, Active 2014 [facility] Drug form: INJ, Q6H, Dosing Weight 73.636, kg, PRN Nausea & Vomiting, Start date: 08/06/15 3:29:00, Duration: 30 day, Stop date: 09/05/15 3:28:00Notes: (Same as: Clint) MEDICATION WASTE Product Size: 4 mg Product Wasted: ___ mg Acetaminophen 325 mg, 1 No Longer tab, Route: Active 2014 [facility] PO, Drug form: TAB, Q4H, Dosing Weight 73.636, kg, PRN Pain Score 4-6, Start date: 08/06/15 3:29:00, Duration: 30 day, Stop date: 09/05/15 3:28:00Notes: Do not exceed 4 gm/day. (Same as: Tylenol) Morphine 2 mg, Route: No Longer IVP, Q4H, Active 2014 [facility] Dosing Weight 73.636, kg, PRN Pain Score 7-10, Start date: 08/06/15 3:29:00, Duration: 30 day, Stop date: 09/05/15 3:28:00 Aspirin 325 mg, 1 No Longer tab, Route: Active 2014 [facility] PO, Drug form: ECTAB, Q24H, Dosing Weight 73.636, kg, Start date: 08/06/15 3:00:00, Duration: 30 day, Stop date: 09/04/15 3:00:00Notes: (Do Not Crush) Do not crush or chew. Saline Flush 10 mL, Route: No Longer 0.9% IVP, Drug Active 2014 [facility] Form: INJ, Dosing Weight 75.455, kg, PRN, PRN Line Flush, Start date: 08/05/15 19:05:00, Duration: 30 day, Stop date: 09/04/15 19:04:00Notes : (Same as: BD Posiflush) Docusate Sodium 100 mg=1 cap, Active 100 MG Oral PO, Daily, as 2013 [facility] Capsule needed for [Colace] constipation, # 20 cap, 0 Refill(s) gabapentin 300 300 mg=1 cap, Active MG Oral Capsule PO, BID, # 90 2013 [facility] cap, 0 Refill(s) tramadol 50 mg=1 tab, Active hydrochloride PO, Q6H, 2013 [facility] 50 MG Oral Pain, # 40 Tablet tab, 0 Refill(s) Ibuprofen 400 400 mg, 1 No Longer MG Oral Tablet tab, Route: Active 2013 [facility] PO, Drug form: TAB, Q6H, Dosing Weight [...] 0.5 No Longer mL, Route: Active 2013 [facility] IV, Drug form: INJ, Q2H, PRN Pain, Start date: 04/18/14 17:55:00, Duration: 30 day, Stop date: 05/18/14 17:54:00 Ibuprofen 600 mg, Inactive Route: PO, 2013 Q6H, Dosing Weight 64.545, kg, PRN as needed for pain, Start date: 04/18/14 17:02:00, Duration: 30 day, Stop date: 05/18/14 17:01:00 Docusate Sodium 100 mg, 1 No Longer 100 MG Oral cap, Route: Active 2013 [facility] Capsule PO, Drug form: CAP, BID, Dosing Weight 64.545, kg, Start date: 04/18/14 17:00:00, Duration: 30 day, Stop date: 05/18/14 9:00:00Notes: (Same as: Colace) (Do Not Crush) Ofirmev 1,000 mg, 100 Inactive mL, Route: 2013 [facility] IV, Drug form: INJ, Q6H, Dosing Weight 65.909, kg, for > or=50 kg, Start date: 04/18/14 12:00:00, Duration: 1 day, Stop date: 04/19/14 6:00:00Notes: Infuse over 15 minutes Do not exceed 4gm/day of acetaminophen Saline Flush 5 ml, Route: No Longer 0.9% IVP, Drug Active 2013 [facility] Form: INJ, Dosing Weight 64.545, kg, PRN, PRN Line Flush, Start date: 04/18/14 10:16:00, Duration: 30 day, Stop date: 05/18/14 10:15:00Notes : Same as: BD Posiflush Sterile Sodium Chloride 1,000 mL, No Longer 0.154 MEQ/ML Rate: 125 Active 2013 [facility] Injectable ml/hr, Infuse Solution over: 8 hr, Route: IV, Dosing Weight 64.545 kg, Total Volume: 1,000, Start date: 04/18/14 10:16:00, Duration: 30 day, Stop date: 05/18/14 10:15:00 Ondansetron 4 mg, 2 mL, No Longer Route: IVP, Active 2013 [facility] Drug form: INJ, Q6H, Dosing Weight 64.545, kg, PRN Nausea & Vomiting, Start date: 04/18/14 10:16:00, Duration: 30 day, Stop date: 05/18/14 10:15:00Notes : (Same as: Zofran) Acetaminophen 1 tab, Route: Inactive 325 MG / PO, Drug 2013 [facility] Hydrocodone Form: TAB, Bitartrate 5 MG Dosing Weight Oral Tablet 65.909, kg, Q4H, PRN Pain Score 1-3, Start date: 04/18/14 10:16:00, Duration: 30 day, Stop date: 05/18/14 10:15:00Notes : (Same as: Pierz 325/5) Do not exceed 4gm/day of acetaminophen . Cefoxitin 2 gm, Route: No Longer IVPB, ONCALL, Active 2013 [facility] Dosing Weight 64.545, kg, Start date: 04/13/14 13:00:00, Duration: 30 day, Stop date: 05/13/14 12:59:00Notes : (Same As: Mefoxin) Naloxone 0.1 mg, Inactive Route: IVP, 2013 [facility] Q2MIN, Dosing Weight 65.909, kg, PRN Narcotic Reversal, Start date: 03/13/14 11:16:00, Duration: 4 doses or times, Stop date: Limited # of times Flumazenil 0.2 mg, Inactive Route: IVP, 2013 [facility] PRN, Dosing Weight 65.909, kg, PRN Other -See Comment, Start date: 03/13/14 11:16:00, Duration: 1 doses or times, Stop date: Limited # of times Sodium Chloride 1,000 mL, Inactive 0.154 MEQ/ML Rate: 25 2013 [facility] Injectable ml/hr, Infuse Solution over: 40 hr, [...] 1 tablet Orally Active 20 mg Orally [facility] 2.16.840.1 daily .255033.4. [id number] 68 Gabapentin 1 capsule Orally Active 300 MG Orally Jus 2.16.840.1 twice a day .639092.4. (bid) 68 B-12 Unknown Sublingual Active 2500 MCG Jus 2.16.840.1 Sublingual .529240.4. 68 Ocuvite 1 tablet Orally Active Orally daily Jus 2.16.840.1 .013183.4. 68 Lasix 1 tablet Orally Active 40 MG Orally Jus 2.16.840.1 Once a day .487747.4. 68 Ciprofloxacin 5 ml Orally Active 500 MG/5ML Jus 2.840.1 (10%) Orally .921414.4. Twice a day 68 Spironolactone 1 tablet Orally Active 25 MG Orally Jus 2.16.840.1 daily .574069.4. 68 Caltrate 600+D 1 tablet with Orally Active 600-400 Jus 2.840.1 food MG-UNIT .145687.4. Orally Once a day Allergies, Adverse Reactions, Alerts Substance Category Reaction Severity Reaction Status Date Comments Source type Reported MORPHINE Drug MORPHINE allergy 2 Medical Group morphine<s Assertion Drug Active Data up>1</sup> allergy 2 migrated [place] from [facility] on 12/27/14. Originally documented as MORPHINE. Hallucinatio ns Adhesive Adverse rash Adverse Active 2.16.840. Tape Reaction Reaction 5 1.385047. 4.391 Morphine Adverse Info Not Adverse Active 2.16.840. Sulfate Reaction Available Reaction 5 1.813898. 4.391 morphine Assertion Drug Active allergy [place] [...] Lymphocytes 36.1 % 20.0 - 08/03 40.0 [facility] HEMATOLOGY Eosinophils 1.2 % 0.0 - 4.0 08/03 [facility] HEMATOLOGY Monocytes 5.4 % 2.0 - 12.0 08/03 [facility] HEMATOLOGY Basophils 0.6 % 0.0 - 1.0 08/03 [facility] HEMATOLOGY Segs 56.7 % 45.0 - 08/03 75.0 /2016 [facility] HEMATOLOGY Monocytes # 0.2 K/CMM 0.0 - 0.8 08/03 [facility] HEMATOLOGY Lymphocytes 1.0 K/CMM 1.0 - 5.5 08/03 [facility] HEMATOLOGY Segs-Bands # 1.6 K/CMM 1.5 - 8.1 08/03 [facility] HEMATOLOGY MPV 9.2 fL 7.4 - 10.4 08/03 [facility] HEMATOLOGY RDW 16.5 % 11.5 - 08/03 14.5 [facility] HEMATOLOGY Platelet 62 K/CMM 133 - 450 08/03 [facility] HEMATOLOGY Hct 39.3 % 36.0 - 08/03 MH 48.0 /2017 [facility] HEMATOLOGY Hgb 13.2 g/dL 12.0 - 08/03 MH 16.0 /2016 [facility] HEMATOLOGY RBC 4.14 M/CMM 4.20 - 08/03 MH 5.40 /2016 [facility] HEMATOLOGY MCH 31.9 pg 27.0 - 08/03 MH 31.0 /2016 [facility] HEMATOLOGY MCV 95.1 fL 80.0 - 08/03 MH 98.0 /2016 [facility] MCHC 33.6 g/dL 32.0 - 08/03 MH 36.0 /2016 [facility] HEMATOLOGY WBC 2.8 K/CMM 3.7 - 10.4 08/03 MH [facility] Renal Renal Patient Name: EDGARD DÍAZ 08/03 - pyelogram pyelogram /2016 - [facility] retrograde retrograde : 1930; Age: 86 years Female DX DX MR: [id number] Read by: Thelma Chopra MD Dictated Date/time: 08/03/17 18:54 Study: Renal pyelogram retrograde DX 08/03/2017 3:09 PM DATA SCIENCES DIRECTOR Electronically Signed by: Thelma Chopra MD 08/03/17 [...] is not recommended in the following populations: [facility] 3m2 Individuals with unstable creatinine concentrations, including [...] Globulin 4.6 g/dL 2.7 - 4.2 08/02 [facility] HEMATOLOGY RBC 3.92 M/CMM 4.20 - 12/ MH 5.40 [facility] HEMATOLOGY WBC 5.1 K/CMM 3.7 - 10.4 08/02 [facility] HEMATOLOGY Hgb 12.3 g/dL 12.0 - 08/02 16.0 /2016 [facility] HEMATOLOGY RDW 15.9 % 11.5 - 12/ MH 14.5 /2016 [facility] MCHC 33.4 g/dL 32.0 - 12/ MH 36.0 /2016 [facility] MCH 31.3 pg 27.0 - 12/ MH 31.0 [facility] Hct 36.7 % 36.0 - 12/ MH 48.0 /2016 [facility] HEMATOLOGY MCV 93.6 fL 80.0 - 12/ MH 98.0 /2016 [facility] HEMATOLOGY MPV 8.9 fL 7.4 - 10.4 12/ /2016 [facility] Platelet 82 K/CMM 133 - 450 12/ [facility] HEMATOLOGY INR 1.49 0.85 - 08/02 MH 1.17 /2016 [facility] HEMATOLOGY PT 18.1 s 12.0 - 08/02 14.7 [facility] PTT 33.0 s 22.9 - 08/02 35.8 [facility] HEMATOLOGY Segs-Bands # 2.6 K/CMM 1.5 - 8.1 08/02 [facility] HEMATOLOGY Basophils 0.8 % 0.0 - 1.0 / /2016 [facility] HEMATOLOGY Lymphocytes 1.8 K/CMM 1.0 - 5.5 / MH # /2017 [facility] HEMATOLOGY Eosinophils 0.2 K/CMM 0.0 - 0.5 / MH # /2016 [facility] HEMATOLOGY Monocytes # 0.5 K/CMM 0.0 - 0.8 08/02 [facility] HEMATOLOGY Segs 51.3 % 45.0 - 12/ MH 75.0 [facility] HEMATOLOGY Monocytes 10.3 % 2.0 - 12.0 / [facility] HEMATOLOGY Lymphocytes 34.4 % 20.0 - 12/ MH 40.0 /2016 [facility] HEMATOLOGY Eosinophils 3.2 % 0.0 - 4.0 08/02 [facility] ELECTROLYT AGAP 14.3 meq/L 10.0 - 04/13 ES 20.0 /2016 [facility] ELECTROLYT eGFR 46 04/13 Result Comment: The [...] is not recommended in the following populations: [facility] 3m2 Individuals with unstable creatinine concentrations, including [...] 0.50 - 04/13 ES Lvl 1.40 /2016 [facility] ELECTROLYT BUN 13 mg/dL 7 - 22 04/13 [facility] ELECTROLYT Potassium 4.3 meq/L 3.5 - 5.1 04/13 ES Lvl /2016 [facility] ELECTROLYT Sodium Lvl 142 meq/L 135 - 145 04/13 [facility] ELECTROLYT Chloride Lvl 107 meq/L 95 - 109 04/13 [facility] ELECTROLYT CO2 25 meq/L 24 - 32 04/13 [facility] ELECTROLYT Calcium Lvl 9.3 mg/dL 8.5 - 10.5 04/13 [facility] ELECTROLYT Glucose Lvl 101 mg/dL 70 - 99 04/13 [facility] HEMATOLOGY Eosinophils 0.2 K/CMM 0.0 - 0.5 04/13 MH # /2017 [facility] HEMATOLOGY Basophils # 0.1 K/CMM 0.0 - 0.2 04/13 [facility] HEMATOLOGY Monocytes # 0.6 K/CMM 0.0 - 0.8 04/13 [facility] HEMATOLOGY Lymphocytes 1.8 K/CMM 1.0 - 5.5 04/13 [facility] HEMATOLOGY Segs-Bands # 3.0 K/CMM 1.5 - 8.1 04/13 [facility] HEMATOLOGY Basophils 0.9 % 0.0 - 1.0 04/13 [facility] HEMATOLOGY Monocytes 10.4 % 2.0 - 12.0 04/13 [facility] HEMATOLOGY Eosinophils 3.0 % 0.0 - 4.0 04/13 [facility] HEMATOLOGY Segs 53.7 % 45.0 - 04/13 75.0 /2017 [facility] HEMATOLOGY Lymphocytes 32.0 % 20.0 - 04/13 MH 40.0 /2016 [facility] HEMATOLOGY INR 1.27 0.85 - 04/13 MH 1.17 /2016 [facility] HEMATOLOGY PT 16.2 s 12.0 - 04/13 14.7 [facility] MPV 8.9 fL 7.4 - 10.4 04/13 [facility] RDW 15.4 % 11.5 - 04/13 14.5 [facility] Platelet 79 K/CMM 133 - 450 04/13 [facility] MCH 32.2 pg 27.0 - 08 31.0 /2016 [facility] MCHC 33.3 g/dL 32.0 - 04/13 36.0 /2016 [facility] RBC 4.00 M/CMM 4.20 - 04/13 5.40 /2016 [facility] MCV 96.5 fL 80.0 - 04/13 98.0 /2016 [facility] Hct 38.6 % 36.0 - 04/13 48.0 [facility] Hgb 12.9 g/dL 12.0 - 04/13 16.0 [facility] WBC 5.6 K/CMM 3.7 - 10.4 04/13 [facility] PTT 28.2 s 22.9 - 04/13 35.8 [facility] PET CT PET CT Patient Name: EDGARD DÍAZ 03/04 - Colorectal Colorectal /2016 - [facility] [place] restaging : 1930; Age: 86 years y/o Female restaging MR: [id number] Read by: Williams Reynolds MD Dictated Date/time: [...] urinary bladder suspicious for chronic cystitis. SL: [id number] ELECTROLYT AGAP 7.1 meq/L 10.0 - 02/16 ES 20.0 [facility] ELECTROLYT eGFR 54 02/16 Result Comment: The eGFR is calculated using the CKD-EPI formula. In most young, healthy individuals the eGFR will be >90 mL/ min/1.73m2. The eGFR declines with age. An eGFR of 60-89 may be normal in [facility] mL/min/1.7 some populations, particularly the elderly, for whom the CKD-EPI formula has not been extensively validated. Use of the eGFR is not recommended in the following populations: [facility] 3m2 Individuals with unstable creatinine concentrations, including [...] 8.8 mg/dL 8.5 - 10.5 02/16 ES [facility] ELECTROLYT Chloride Lvl 107 meq/L 95 - 109 02/16 ES [facility] ELECTROLYT CO2 30 meq/L 24 - 32 02/16 ES [facility] ELECTROLYT Potassium 4.1 meq/L 3.5 - 5.1 02/16 ES Lvl [facility] ELECTROLYT Glucose Lvl 75 mg/dL 70 - 99 02/16 ES [facility] ELECTROLYT BUN 11 mg/dL 7 - 22 02/16 ES [facility] ELECTROLYT Creatinine 0.95 mg/dL 0.50 - 02/16 ES Lvl 1.40 /2016 [facility] ELECTROLYT Sodium Lvl 140 meq/L 135 - 145 02/16 [facility] HEMATOLOGY Hgb 13.0 g/dL 12.0 - 02/16 MH 16. [facility] HEMATOLOGY Hct 38.8 % 36.0 - 02/16 MH 48.0 [facility] TUMOR CEA 11.8 ng/mL 0.0 - 3.0 02/16 [facility] CHEM PANEL A/G Ratio 0.6 0.7 - 1.6 08/07 [facility] CHEM PANEL AGAP 11.9 meq/L 10.0 - 08/07 MH 20. [facility] CHEM PANEL Globulin 4.1 g/dL 2.0 - 4.0 08/07 [facility] CHEM PANEL B/C Ratio 15 6 - 25 08/07 [facility] CHEM PANEL eGFR 61 08/07 Result Comment: [...] is not recommended in the following populations: [facility] 3m2 Individuals with unstable creatinine concentrations, including [...] CO2 25 meq/L 24 - 32 08/07 [facility] CHEM PANEL Chloride Lvl 106 meq/L 95 - 109 08/07 [facility] CHEM PANEL Calcium Lvl 8.5 mg/dL 8.5 - 10.5 08/07 [facility] CHEM PANEL Albumin Lvl 2.5 g/dL 3.5 - 5.0 08/07 [facility] CHEM PANEL Total 6.6 g/dL 6.4 - 8.4 08/07 [facility] CHEM PANEL ALT 20 unit/L 0 - 65 08/07 [facility] CHEM PANEL AST 26 unit/L 0 - 37 08/07 [facility] CHEM PANEL Alk Phos 109 unit/L 39 - 136 08/07 [facility] CHEM PANEL Bili Total 1.2 mg/dL 0.2 - 1.3 08/07 [facility] CHEM PANEL Potassium 3.9 meq/L 3.5 - 5.1 08/07 Lvl [facility] CHEM PANEL Sodium Lvl 139 meq/L 135 - 145 08/07 [facility] CHEM PANEL Creatinine 0.88 mg/dL 0.50 - 12 MH Lvl 1.40 [facility] CHEM PANEL Glucose Lvl 120 mg/dL 70 - 99 08/07 [facility] CHEM PANEL BUN 13 mg/dL 7 - 22 08/07 [facility] CHEM PANEL Magnesium 1.9 mg/dL 1.8 - 2.4 08/07 l /2014 [facility] HEMATOLOGY MPV 8.8 fL 7.4 - 10.4 08/07 [facility] HEMATOLOGY Platelet 54 K/CMM 133 - 450 08/07 [facility] HEMATOLOGY MCHC 33.1 g/dL 32.0 - 08/07 36.0 /2014 [facility] HEMATOLOGY RDW 14.7 % 11.5 - 08/07 MH 14.5 [facility] HEMATOLOGY MCV 97.0 fL 80.0 - 08/07 98.0 /2014 [facility] HEMATOLOGY MCH 32.1 pg 27.0 - 08/07 MH 31.0 /2014 [facility] HEMATOLOGY RBC 3.54 M/CMM 4.20 - 08/07 MH 5.40 /2014 [facility] HEMATOLOGY WBC 3.6 K/CMM 3.7 - 10.4 08/07 [facility] HEMATOLOGY Hct 34.3 % 36.0 - 08/07 48.0 /2014 [facility] HEMATOLOGY Hgb 11.4 g/dL 12.0 - 08/07 16.0 [facility] HEMATOLOGY Monocytes # 0.2 K/CMM 0.0 - 0.8 08/07 [facility] HEMATOLOGY Eosinophils 1.3 % 0.0 - 4.0 08/07 [facility] HEMATOLOGY Monocytes 7.0 % 2.0 - 12.0 08/07 [facility] HEMATOLOGY Lymphocytes 1.1 K/CMM 1.0 - 5.5 08/07 /2014 [facility] HEMATOLOGY Basophils 0.6 % 0.0 - 1.0 08/07 [facility] HEMATOLOGY Segs-Bands # 2.2 K/CMM 1.5 - 8.1 08/07 [facility] HEMATOLOGY Segs 61.3 % 45.0 - 08/07 75.0 [facility] HEMATOLOGY Lymphocytes 29.8 % 20.0 - 08/07 MH 40.0 [facility] URINE AND UA Nitrite Negative Negative 08/06 [facility] (08/06/15 3:01 PM) URINE AND UA Leuk Est Large Negative 08/06 *ABN* (08/06/15 3:01 PM) URINE AND UA Blood Moderate Negative 08/06 [facility] *ABN* (08/06/15 3:01 PM) URINE AND UA Bili Negative Negative 08/06 [facility] *NA* (08/06/15 3:01 PM) URINE AND UA >=8.0 0.1 - 1.0 08/06 [facility] Urobilinogen [facility] *ABN* (08/06/15 3:01 PM) URINE AND UA Color Yellow Yellow 08/06 STOOL [facility] *NA* (08/06/15 3:01 PM) URINE AND UA Turbidity Cloudy Clear 08/06 [facility] *ABN* (08/06/15 3:01 PM) URINE AND UA Glucose Negative Negative 08/06 [facility] (08/06/15 3:01 PM) URINE AND UA Ketones Negative Negative 08/06 [facility] *NA* (08/06/15 3:01 PM) URINE AND UA Spec Grav 1.015 <=1.030 08/06 [facility] URINE AND UA pH 6.5 5.0 - 8.0 08/06 STO[facility] URINE AND UA Protein 30 mg/dL Negative 08/06 [facility] mg/dL [facility] URINE AND UA Sq Epi Few /LPF Few /LPF 08/06 STOOL [facility] URINE AND UA [place] Yeast Many /HPF None Seen 08/06 [facility] /HPF /2014 [facility] URINE AND UA WBC null 0 - 5 08/06 URINE AND UA RBC 17 /HPF 0 - 2 08/06 [facility] Carotid Carotid CAROTID DOPPLER 08/06 - artery artery /2014 - [facility] Doppler Doppler bilat US bilat US Read [...] Occasional None Seen 08/06 [facility] /HPF /HPF [facility] URINE AND UA Mucus Few /LPF None Seen 08/06 [facility] /LPF [facility] URINE AND UA Bacteria Moderate None Seen 08/06 [facility] /HPF /HPF /2014 URINE AND UA WBC null 0 - 5 08/06 [facility] URINE AND UA Sq Epi Moderate Few /LPF 08/06 [facility] /LPF URINE AND UA RBC 13 /HPF 0 - 2 08/06 STOOL [facility] URINE AND UA Nitrite Negative Negative 08/06 [...] UA Spec Grav 1.015 <=1.030 08/06 STOOL [facility] URINE AND UA Turbidity Slight Cloudy Clear 08/06 STOOL [facility] (08/05/15 10:40 PM) URINE AND UA Color Yellow Yellow 08/06 STOOL [facility] *NA* (08/05/15 10:40 PM) URINE AND UA Protein Negative Negative 08/06 STOOL [facility] (08/05/15 10:40 PM) URINE AND UA pH 6.0 5.0 - 8.0 08/06 STOOL [facility] CARDIAC CK MB 5.3 ng/mL 0.5 - 3.6 08/06 ENZYMES [facility] CARDIAC Total CK 116 unit/L 12 - 191 08/06 ENZYMES [facility] CARDIAC BNP 45 pg/mL <=100 08/06 EN[facility]YM[facility] pg/mL [facility] CARDIAC Troponin-I null 0.00 - 08/06 EN[facility]YMES 0.40 [facility] CARDIAC CK MB Index 4.6 0.0 - 2.5 08/06 ENZYMES [facility] CHEM PANEL Ammonia 47.0 <=45.0 08/06 umol/L uMol/L [facility] CHEM PANEL Alk Phos 118 unit/L 39 - 136 08/06 [facility] CHEM PANEL Total 7.4 g/dL 6.4 - 8.4 08/06 Protein [facility] CHEM PANEL Calcium Lvl 8.5 mg/dL 8.5 - 10.5 08/06 [facility] CHEM PANEL eGFR 67 08/06 Result Comment: [...] is not recommended in the following populations: [facility] 3m2 Individuals with unstable creatinine concentrations, including [...] Total 1.0 mg/dL 0.2 - 1.3 08/06 [facility] CHEM PANEL A/G Ratio 0.6 0.7 - 1.6 08/06 [facility] CHEM PANEL ALT 21 unit/L 0 - 65 08/06 [facility] CHEM PANEL Albumin Lvl 2.7 g/dL 3.5 - 5.0 08/06 [facility] CHEM PANEL AST 27 unit/L 0 - 37 08/06 [facility] CHEM PANEL AGAP 11.5 meq/L 10.0 - 12 MH 20.0 [facility] CHEM PANEL Globulin 4.7 g/dL 2.0 - 4.0 08/06 [facility] CHEM PANEL B/C Ratio 14 6 - 25 08/06 [facility] CHEM PANEL BUN 11 mg/dL 7 - 22 08/06 [facility] CHEM PANEL Chloride Lvl 106 meq/L 95 - 109 08/06 [facility] CHEM PANEL Creatinine 0.81 mg/dL 0.50 - 08/06 Lvl 1.40 /2014 [facility] CHEM PANEL Potassium 3.5 meq/L 3.5 - 5.1 08/06 Lvl /2014 [facility] CHEM PANEL Sodium Lvl 140 meq/L 135 - 145 08/06 [facility] CHEM PANEL CO2 26 meq/L 24 - 32 08/06 [facility] CHEM PANEL Glucose Lvl 109 mg/dL 70 - 99 08/06 [facility] HEMATOLOGY MPV 9.1 fL 7.4 - 10.4 08/06 [facility] HEMATOLOGY RDW 15.4 % 11.5 - 08/06 14. [facility] HEMATOLOGY Platelet 70 K/CMM 133 - 450 08/06 [facility] HEMATOLOGY MCHC 33.1 g/dL 32.0 - 12 36.0 [facility] HEMATOLOGY MCH 32.1 pg 27.0 - 12 MH 31.0 [facility] HEMATOLOGY MCV 97.2 fL 80.0 - 08/06 98.0 [facility] HEMATOLOGY Hct 36.5 % 36.0 - 12 MH 48.0 [facility] HEMATOLOGY Hgb 12.1 g/dL 12.0 - 12 MH 16.0 [facility] HEMATOLOGY RBC 3.76 M/CMM 4.20 - 12 [...] is not recommended in the following populations: [facility] 3m2 Individuals with unstable creatinine concentrations, including [...] Total 0.9 mg/dL 0.2 - 1.3 08/05 [facility] CHEM PANEL Alk Phos 126 unit/L 39 - 136 08/05 [facility] CHEM PANEL Albumin Lvl 2.7 g/dL 3.5 - 5.0 08/05 [facility] CHEM PANEL ALT 22 unit/L 0 - 65 08/05 [facility] CHEM PANEL AST 27 unit/L 0 - 37 08/05 [facility] CHEM PANEL AGAP 11.8 meq/L 10.0 - 08/05 20.0 [facility] CHEM PANEL B/C Ratio 14 6 - 25 08/05 [facility] CHEM PANEL A/G Ratio 0.6 0.7 - 1.6 08/05 [facility] CHEM PANEL Globulin 4.6 g/dL 2.0 - 4.0 08/05 [facility] HEMATOLOGY MPV 8.9 fL 7.4 - 10.4 08/05 [facility] HEMATOLOGY RDW 15.3 % 11.5 - 08/05 MH 14. [facility] HEMATOLOGY Platelet 69 K/CMM 133 - 450 08/05 [facility] HEMATOLOGY Hct 37.6 % 36.0 - 08/05 MH 48.0 [facility] HEMATOLOGY MCHC 32.8 g/dL 32.0 - 08/05 MH 36.0 [facility] HEMATOLOGY Hgb 12.4 g/dL 12.0 - 08/05 MH 16.0 [facility] HEMATOLOGY MCV 96.5 fL 80.0 - 08/05 MH 98.0 [facility] MCH 31.7 pg 27.0 - 08/05 MH 31.0 /2014 [facility] HEMATOLOGY WBC 6.2 K/CMM 3.7 - 10.4 08/05 /2014 [facility] HEMATOLOGY RBC 3.90 M/CMM 4.20 - 08/05 5.40 /2015 [facility] HEMATOLOGY Monocytes # 0.5 K/CMM 0.0 - 0.8 08/05 /2014 [facility] HEMATOLOGY Basophils 0.6 % 0.0 - 1.0 08/05 /2014 [facility] HEMATOLOGY Segs-Bands # 4.2 K/CMM 1.5 - 8.1 08/05 /2014 [facility] HEMATOLOGY Eosinophils 0.1 K/CMM 0.0 - 0.5 08/05 # /2015 [facility] HEMATOLOGY Lymphocytes 1.4 K/CMM 1.0 - 5.5 08/05 # /2015 [facility] HEMATOLOGY Lymphocytes 22.3 % 20.0 - 08/05 40.0 /2014 [facility] HEMATOLOGY Monocytes 7.3 % 2.0 - 12.0 08/05 /2014 [facility] HEMATOLOGY Eosinophils 1.4 % 0.0 - 4.0 08/05 [facility] HEMATOLOGY Segs 68.4 % 45.0 - 08/05 75.0 /2014 [facility] Chest Chest 1view Chest one view: 08/05 [...] 08/05 - contrast contrast CT /2014 - [facility] CT REASON FOR EXAM: pt from IV [...] Basophils 0.4 % 0.0 - 1.0 04/19 [facility] HEMATOLOGY Monocytes # 0.9 K/CMM 0.0 - 0.8 04/19 [facility] HEMATOLOGY Lymphocytes 1.0 K/CMM 1.0 - 5.5 04/19 MH # /2013 [facility] HEMATOLOGY Segs-Bands # 4.2 K/CMM 1.5 - 8.1 04/19 [facility] HEMATOLOGY Eosinophils 0.2 K/CMM 0.0 - 0.5 04/19 MH # /2013 [facility] HEMATOLOGY Eosinophils 2.7 % 0.0 - 4.0 04/19 [facility] HEMATOLOGY Monocytes 13.7 % 2.0 - 12.0 04/19 [facility] Lymphocytes 16.6 % 20.0 - 04/19 MH 40.0 /2013 [facility] HEMATOLOGY Segs 66.6 % 45.0 - 04/19 MH 75.0 /2013 [facility] MCHC 33.3 g/dL 32.0 - 04/19 MH 36.0 /2013 [facility] HEMATOLOGY RDW 15.2 % 11.5 - 04/19 MH 14.5 /2013 [facility] HEMATOLOGY MCH 32.3 pg 27.0 - 04/19 MH 31.0 /2013 [facility] HEMATOLOGY MCV 96.9 fL 80.0 - 04/19 MH 98.0 /2013 [facility] HEMATOLOGY Hct 30.1 % 36.0 - 04/19 MH 48.0 [facility] Platelet 67 K/CMM 133 - 450 04/19 [facility] MPV 8.4 fL 7.4 - 10.4 04/19 [facility] Hgb 10.0 g/dL 12.0 - 04/19 MH 16.0 [facility] HEMATOLOGY RBC 3.11 M/CMM 4.20 - 04/19 MH 5.40 /2013 [facility] HEMATOLOGY WBC 6.3 K/CMM 3.7 - 10.4 04/19 [facility] Chest 2 Chest 2 EXAM: Chest 2 views 04/19 - views views /2013 - [facility] DATE: Apr 19, 2014 09:48:02 AM Read [...] Globulin 4.8 g/dL 2.0 - 4.0 04/13 [facility] CHEM PANEL A/G Ratio 0.6 0.7 - 1.6 04/13 [facility] CHEM PANEL AGAP 13.4 meq/L 10.0 - 04/13 20.0 [facility] CHEM PANEL B/C Ratio 9 6 - 25 04/13 [facility] CHEM PANEL eGFR 59 04/13 1Result Comment: [...] is not recommended in the following populations: [facility] 3m2 Individuals with unstable creatinine concentrations, including [...] values reflect the clinical guidelines of the [employer]. [facility] CHEM PANEL BUN 8 [...] Total 1.3 mg/dL 0.2 - 1.3 04/13 [facility] CHEM PANEL Total 7.7 g/dL 6.4 - 8.4 04/13 [facility] CHEM PANEL Albumin Lvl 2.9 g/dL 3.5 - 5.0 04/13 [facility] HEMATOLOGY MCH 32.1 pg 27.0 - 04/13 31.0 [facility] HEMATOLOGY RDW 14.6 % 11.5 - 04/13 14.5 [facility] HEMATOLOGY MCHC 33.1 g/dL 32.0 - 04/13 36.0 /2013 [facility] HEMATOLOGY Platelet 76 K/CMM 133 - 450 04/13 [facility] HEMATOLOGY RBC 3.79 M/CMM 4.20 - 04/13 5.40 /2013 [facility] HEMATOLOGY Hct 36.7 % 36.0 - 04/13 48.0 /2013 [facility] HEMATOLOGY MCV 97.0 fL 81.0 - 04/13 99.0 /2013 [facility] HEMATOLOGY Hgb 12.1 g/dL 12.0 - 04/13 16.0 [facility] HEMATOLOGY WBC 4.6 K/CMM 3.7 - 10.4 04/13 [facility] HEMATOLOGY MPV 8.9 fL 7.4 - 10.4 04/13 [facility] HEMATOLOGY Segs 52.6 % 45.0 - 04/13 75.0 /2013 [facility] HEMATOLOGY Monocytes # 0.6 K/CMM 0.0 - 0.8 04/13 [facility] HEMATOLOGY Eosinophils 0.1 K/CMM 0.0 - 0.5 04/13 /2013 [facility] HEMATOLOGY Basophils 1.0 % 0.0 - 1.0 04/13 [facility] HEMATOLOGY Segs-Bands # 2.4 K/CMM 1.5 - 8.1 04/13 [facility] HEMATOLOGY Lymphocytes 1.5 K/CMM 1.0 - 5.5 04/13 /2013 [facility] HEMATOLOGY Lymphocytes 32.1 % 20.0 - 04/13 40.0 [facility] HEMATOLOGY Monocytes 12.2 % 2.0 - 12.0 04/13 [facility] HEMATOLOGY Eosinophils 2.1 % 0.0 - 4.0 04/13 [facility] PET CT PET CT PET/CT SCAN: 03/24 [facility] Colorectal Colorectal /2013 - [facility] [place] restaging restaging TECHNIQUE: 14 mCi [...] AST 43 unit/L 0 - 37 03/06 [facility] CHEM PANEL Albumin Lvl 2.9 g/dL 3.5 - 5.0 03/06 [facility] CHEM PANEL Total 7.7 g/dL 6.4 - 8.4 03/06 [facility] CHEM PANEL Bili Direct 0.5 mg/dL 0.0 - 0.3 03/06 [facility] CHEM PANEL Alk Phos 137 unit/L 39 - 136 03/06 [facility] CHEM PANEL Bili Total 1.4 mg/dL 0.2 - 1.3 03/06 [facility] CHEM PANEL ALT 22 unit/L 0 - 65 03/06 [facility] CHEM PANEL Bili 0.9 mg/dL 0.0 - 1.0 03/06 [facility] CHEM PANEL Globulin 4.8 g/dL 2.0 - 4.0 03/06 [facility] CHEM PANEL A/G Ratio 0.6 0.7 - 1.6 03/06 [facility] ELECTROLYT AGAP 8.9 meq/L 10.0 - 03/06 ES 20.0 [facility] ELECTROLYT eGFR 59 03/06 1Result Comment: The eGFR is calculated using the CKD-EPI formula. In most young, healthy individuals the eGFR will be >90 mL/ min/1.73m2. The eGFR declines with age. An eGFR of 60-89 may be normal in [facility] mL/min/1.7 /2013 some populations, particularly the elderly, for whom the CKD-EPI formula has not been extensively validated. Use of the eGFR is not recommended in the following populations: [facility] 3m2 Individuals with unstable creatinine concentrations, including [...] CO2 28 meq/L 24 - 32 03/06 [facility] ELECTROLYT Calcium Lvl 8.7 mg/dL 8.5 - 10.5 03/06 [facility] ELECTROLYT BUN 9 mg/dL 7 - 22 03/06 [facility] ELECTROLYT Creatinine 0.9 mg/dL 0.5 - 1.4 03/06 [facility] Lvl [facility] ELECTROLYT Sodium Lvl 140 meq/L 135 - 145 03/06 [facility] ELECTROLYT Potassium 3.9 meq/L 3.5 - 5.1 03/06 ES Lvl [facility] ELECTROLYT Chloride Lvl 107 meq/L 95 - 109 03/06 [facility] ELECTROLYT Glucose Lvl 84 mg/dL 70 - 99 03/06 2Interpretive Data: Adult reference range values reflect the clinical guidelines of the [employer]. [facility] HEMATOLOGY Hgb 11.9 g/dL 12.0 - 03/06 16.0 [facility] HEMATOLOGY Hct 35.2 % 36.0 - 03/06 48.0 [facility] HEMATOLOGY Platelet 80 K/CMM 133 - 450 03/06 [facility] HEMATOLOGY WBC 4.4 K/CMM 3.7 - 10.4 03/06 [facility] HEMATOLOGY PT 15.9 s 12.0 - 03/06 14.7 [facility] HEMATOLOGY INR 1.29 0.85 - 07 3Interpretive Data: RECOMMENDED RANGES FOR PROTIME INR: . 2.0-3.0 for most medical and surgical thromboembolic states. [facility] 2.5-3.5 for artificial heart valves and recurrent embolism. INR SHOULD BE USED ONLY FOR PATIENTS ON STABLE ANTICOAGULANT THERAPY. HEMATOLOGY PTT 32.6 s 22.9 - 03/06 4Interpretive 35.8 /2013 Data: Heparin [facility] Therapeutic Range: 57 - 92 Seconds TUMOR CEA 12.2 ng/mL 0.0 - 3.0 03/06 [facility] PET CT PET CT 09/14 - Colorectal Colorectal - [facility] [place] restaging EXAM: PET/CT restaging HISTORY: [...] Vital Signs Vital Sign Value Date Comments [facility] Systolic (mm Hg) 125 08/03/2017 [facility] Diastolic (mm Hg) 71 08/03/2017 [facility] Systolic (mm Hg) 129 08/03/2017 [facility] Diastolic (mm Hg) 66 08/03/2017 [facility] Systolic (mm Hg) 128 08/03/2017 [facility] Diastolic (mm Hg) 59 08/03/2017 [facility] Respitory Rate 16 08/03/2017 [facility] Respitory Rate 11 08/03/2017 [facility] Respitory Rate 9 08/03/2017 [facility] Temperature Oral (F) 97.3 F 08/02/2017 [facility] Heart Rate 70 08/02/2017 [facility] BMI Calculated 27.18 08/02/2017 [facility] Height 165.1 cm 08/02/2017 [facility] Weight 74.091 08/02/2017 [facility] Systolic (mm Hg) 99 04/21/2017 [facility] Diastolic (mm Hg) 56 04/21/2017 [facility] Respitory Rate 18 04/21/2017 [facility] Respitory Rate 18 04/21/2017 [facility] Systolic (mm Hg) 114 04/21/2017 [facility] Diastolic (mm Hg) 58 04/21/2017 [facility] Systolic (mm Hg) 109 04/21/2017 [facility] Diastolic (mm Hg) 56 04/21/2017 [facility] Respitory Rate 12 04/21/2017 [facility] Height 165.1 cm 04/13/2017 [facility] Weight 74.545 04/13/2017 [facility] BMI Calculated 27.35 04/13/2017 [facility] Temperature Oral (F) 97.4 F 04/13/2017 [facility] Heart Rate 80 04/13/2017 [facility] Systolic (mm Hg) 118 02/23/2017 [facility] Diastolic (mm Hg) 61 02/23/2017 [facility] Respitory Rate 32 02/23/2017 [facility] Respitory Rate 28 02/23/2017 [facility] Systolic (mm Hg) 109 02/23/2017 [facility] Diastolic (mm Hg) 60 02/23/2017 [facility] Systolic (mm Hg) 109 02/23/2017 [facility] Diastolic (mm Hg) 61 02/23/2017 [facility] Respitory Rate 23 02/23/2017 [facility] Temperature Oral (F) 97.4 F 02/16/2017 [facility] Heart Rate 72 02/16/2017 [facility] BMI Calculated 28.02 02/16/2017 [facility] Weight 76.364 02/16/2017 [facility] Height 165.1 cm 02/16/2017 [facility] Weight 159 08/12/2015 [id number] Height 64.4 08/12/2015 [id number]. [id number] Temperature Oral (F) 97.6 F 08/12/2015 [id number]. [id number] Heart Rate 93 08/12/2015 [id number]. [id number] Diastolic (mm Hg) 63 08/12/2015 [id number]. [id number] Systolic (mm Hg) 114 08/12/2015 [id number]. [id number] Systolic (mm Hg) 102 08/07/2015 [facility] Diastolic (mm Hg) 66 08/07/2015 [facility] Temperature Oral (F) 97.6 F 08/07/2015 [facility] Respitory Rate 16 08/07/2015 [facility] Heart Rate 77 08/07/2015 [facility] Respitory Rate 15 08/07/2015 [facility] Temperature Oral (F) 97.4 F 08/07/2015 [facility] Heart Rate 81 08/07/2015 [facility] Systolic (mm Hg) 100 08/07/2015 [facility] Diastolic (mm Hg) 66 08/07/2015 [facility] Systolic (mm Hg) 115 08/07/2015 [facility] Diastolic (mm Hg) 73 08/07/2015 [facility] Heart Rate 83 08/07/2015 [facility] Respitory Rate 16 08/07/2015 [facility] Temperature Oral (F) 97.4 F 08/07/2015 [facility] BMI Calculated 26.89 08/06/2015 [facility] Weight [...] [facility] Diastolic (mm Hg) 54 03/13/2014 [facility] Temperature Oral (F) 97.6 F 03/06/2014 [facility] Height 165.1 cm 03/06/2014 [facility] Weight 65.909 03/06/2014 [facility] BMI Calculated 24.18 03/06/2014 [facility] Weight 149 02/02/2014 [facility] Temperature [...] Number For Provider Date Date Visit Outpatient [id number] COLON PING CEBALLOS 09/14 Active [facility] 9 [facility] Outpatient [id number] 153.9 PING CEBALLOS 09/20 Active [facility] Bedded [id number] Theodoros 03/13 03/13 [facility] Outpatient 0 [facility] Office [id number] Dakota Michele, 03/23 03/23 [id number] General [facility] 350 [facility] Outpatient [id number] Ping Ceballos 03/24 03/25 [place] [facility] Lab Report [id number] Dakota Michele, 03/26 03/26 [place] [id number] [facility] Lab Report [id number] Thesantoshorowili 04/12 04/12 [place] [id number] OBS [id number] Dakota Michele 04/18 04/20 [place] Observation [facility] Office [id number] Dakota Michele, 04/27 04/27 [place] Visit [id number] [facility] [id number] Ping Ceballos 08/05 09/04 [place] Recurring [facility] OBS [id number] Van 08/06 08/07 [place] Observation 3 Jus [facility] Unknown [id number] 08/12 08/12 2.16.840 Medical [id number] /[id number] .[id number] Group [id number] Outpatient [id number] THEODOROS 05/14 [facility] 0 [facility]IAN [place] Outpatient [id number] THEODOROS 10/15 [facility] 1 VOLOYIAN [place] Outpatient [id number] THEODOROS 02/23 [facility] 3 VOLOY [place] Outpatient [id number] THEODORO 02/23 [facility] 2 [facility]OY[facility] Bedded [id number] Theodoros 02/23 02/23 [facility] Outpatient 4 Volian [facility] Outpatient [id number] Theodoros 03/04 03/05 [facility] 5 Voloyian /2016 [facility] Outpatient [id number] [facility] 03/30 Active [facility] [place] Outpatient [id number] THEODOROS 04/21 [facility] 5 VOLOY [id number] [facility] Outpatient [id number] ROMAN FOSTER 05/12 Active [facility] [place] Outpatient [id number] [facility] 05/17 [facility] [place] Outpatient [id number] NURSE VISIT 06/22 Active [facility] Day Surgery [id number] Nino [facility] 08/03 08/03 [place] /2016 [facility] Outpatient [id number] JOVANA CUI 08/26 Active [facility] [place] Outpatient [id number] NINO [facility] 08/26 Active [facility] Ambulatory [id number] Jovana Karil 08/26 08/26 Urology Pre-Reg [facility] Outpatient [id number] Nino Arnh 08/26 08/27 Urology [facility] Outpatient [id number] NINO [facility] 09/27 Active [facility] Outpatient [id number] Nino [facility] 09/27 09/28 Urology [facility] Outpatient [id number] NINO [facility] 01/14 Active [facility] [id number] Nino [facility] 01/14 01/14 Urology Pre-Reg [facility] Procedures Procedure Code Date Perfomer Comments Source Cystourethroscopy, 14898 Medical with removal of 7 Group foreign body, calculus, or ureteral stent from urethra or bladder (separate procedure); simple Hernia repair [id number] [facility] 4 Hernia repair [id number] Medical 4 Group Cannulation of [id number] [facility] Cardiac [id number] 1994 [facility] catheterization<sup>1 </sup> Cholecystectomy [id number] [facility] Colonoscopy [id number] [facility] Hysterectomy [id number] [facility] Knee [id number] 2011 [facility] replacement<sup>2</red p> Operation [id number] [facility] Partial resection of [id number] [facility] colon Cannulation of [id number] [facility] Cardiac [id number] 1994 Medical catheterization<sup>1 Group </sup> Cataract extraction [id number] Medical and insertion of Group intraocular lens Cholecystectomy [id number] Medical Group Colonoscopy [id number] Medical Group Hysterectomy [id number] Medical Group Knee [id number] 2011 Medical replacement<sup>2</red Group p> Operation [id number] Medical Group Partial resection of [id number] Medical colon Group Cataract extraction [id number] [facility] and insertion of intraocular lens
--- OUTSIDE RECORDS SUMMARY | 2019-02-03 14:34 | XMS REPORT | CCD ---
:1930 Author Organization [facility] Care Team Providers Name Role Phone Marlyn Ceballos Consulting Provider Allergies, Adverse Reactions, Alerts Substance Reaction Status morphine Active Problem List Condition Effective Dates Status CAD - Coronary artery disease Active Cancer of colon 05/10/2011 Active Cirrhosis of liver Active Esophageal varices Active Hepatitis C Active Pneumonia Active
--- OUTSIDE RECORDS SUMMARY | 2019-02-03 14:35 | XMS REPORT | Continuity of Care Document ---
:1930 Author Organization [facility] Care Team Providers Name Role Phone MD Michele Hoang Unavailable Unavailable Insurance Providers Payer name Policy type / Policy ID Covered constitution party ID Policy [place] Coverage type [place] [employer] AARP HEALTHCARE OPTIONS (MEDICARE SUPPLEMENT AARP HEALTHCARE [...] Date Office Visit Dakota Michele MD [facility] Mar 23, 2014 [...]
--- OUTSIDE RECORDS SUMMARY | 2019-02-03 14:35 | XMS REPORT | Continuity of Care Document ---
:1930 Author Organization [facility] Care Team Providers Name Role Phone MD Michele Hoang Unavailable Unavailable Insurance Providers Payer name Policy type / Policy ID Covered green party ID Policy [place] Coverage type [place] [employer] AARP HEALTHCARE OPTIONS (MEDICARE SUPPLEMENT AARP HEALTHCARE [...] Report Dakota Michele MD [facility] [place] Mar 26, 2014 Allergies, Adverse Reactions, Alerts [...]
--- OUTSIDE RECORDS SUMMARY | 2019-02-03 14:36 | XMS REPORT | Continuity of Care Document ---
:1930 Author Organization [facility] Care Team Providers Name Role Phone MD Michele Hoang Unavailable Unavailable Insurance Providers Payer name Policy type / Policy ID Covered constitution party ID Policy [place] Coverage type MEDICARE [place]: [employer] AARP HEALTHCARE OPTIONS (MEDICARE SUPPLEMENT AARP HEALTHCARE [...] Location Date Office Visit Dakota Michele MD [facility] Apr 27, 2014 Surgery 350 [...]
--- OUTSIDE RECORDS SUMMARY | 2019-02-03 14:36 | XMS REPORT ---
:1930 Author Organization [employer] Care Team Providers Name Role Phone Belkis Luuad Provider Role Unavailable Allergies, Adverse Reactions, Alerts Substance Reaction Event Type Adhesive Tape rash Drug Allergy Morphine Sulfate Info Not Available Drug Allergy Encounters Encounter Location Date Unknown [facility] Aug 12, 2015 Problems Problem Type [...] Dosage Date Date Propranolol HCl [facility] 94399-57 20 mg Orally Active 1 tablet 73-00 daily Gabapentin [facility] 72970-40 300 MG Orally Active 1 capsule 39-19 twice a day (bid) B-12 [facility] 86250-68 2500 MCG Active Unknown 92-72 Sublingual Ocuvite [facility] 17324-77 Orally daily Active 1 tablet 87-60 Lasix [facility] 22184-25 40 MG Orally Active 1 tablet 60-13 Once a day Ciprofloxacin [facility] 21454-34 500 MG/5ML (10%) Active 5 ml 93-01 Orally Twice a day [facility]actone [facility] 66417-60 25 MG Orally Active 1 tablet 03-11 daily Caltrate 600+D [facility] 52535-01 600-400 MG-UNIT Active 1 tablet 86-00 Orally [...]
--- OUTSIDE RECORDS SUMMARY | 2019-02-03 14:36 | XMS REPORT | Continuity of Care Document ---
:1930 Author Organization [facility] Care Team Providers Name Role Phone MD Niranjan, Galdino Unavailable Unavailable Insurance Providers Payer name Policy type / Policy ID Covered constitution party ID Policy [place] Coverage type [place]: [employer] AARP HEALTHCARE OPTIONS (MEDICARE SUPPLEMENT AARP HEALTHCARE [...] Location Date Lab Report Galdino Ureña MD [facility] Apr 12, 2014 Allergies, Adverse Reactions, [...]
--- OUTSIDE RECORDS SUMMARY | 2019-02-03 14:37 | XMS REPORT ---
:1930 Author Organization [facility] Address [address] [place] [address] [address] [place] [address] Care Team Providers Name Role Phone MARY [...] Value Reference Range Comments ALPHA-FETOPROTEIN (BEAKER) (test mfeq=9499) 2.9 ng/mL <10.0 HEPATIC FUNCTION [id number] 16:38:00 Test Item Value Reference Range Comments TOTAL PROTEIN (BEAKER) (test egpd=389) 9.0 gm/dL 6.0-8.3 ALBUMIN (BEAKER) (test kayn=6623) 2.8 g/dL 3.5-5.0 BILIRUBIN TOTAL (BEAKER) (test phhn=691) 1.2 mg/dL 0.2-1.2 BILIRUBIN DIRECT (BEAKER) (test lcgb=331) 0.7 mg/dL 0.1-0.5 ALKALINE PHOSPHATASE (BEAKER) (test nldn=403) 111 U/L 40-150 AST (SGOT) (BEAKER) (test uttn=015) 31 U/L 5-34 ALT (SGPT) (BEAKER) (test nctc=329) 12 U/L 6-55 BASIC METABOLIC [id number] 16:38:00 Test Item Value Reference Range Comments SODIUM (BEAKER) (test 133 meq/L 136-145 xctv=297) POTASSIUM (BEAKER) (test 4.0 meq/L 3.5-5.1 smlk=278) CHLORIDE (BEAKER) (test 100 meq/L 98-107 zukh=871) CO2 (BEAKER) (test 27 meq/L 22-29 rlhy=646) BLOOD UREA NITROGEN 20 mg/dL 7-21 (BEAKER) (test aaax=717) CREATININE (BEAKER) (test 1.07 mg/dL 0.57-1.25 upzp=421) GLUCOSE RANDOM (BEAKER) 71 mg/dL 70-105 (test tfji=087) CALCIUM (BEAKER) (test 9.4 mg/dL 8.4-10.2 pkhx=712) EGFR (BEAKER) (test 49 mL/min/1.73 sq m ESTIMATED GFR IS NOT yfpm=4018) ACCURATE CREATININE CLEARANCE IN PREDICTING GLOMERULAR FILTRATION RATE. ESTIMATED GFR IS NOT APPLICABLE FOR DIALYSIS PATIENTS. [id number] 16:33:00 Test Item Value Reference Range Comments AMMONIA (BEAKER) (test efwz=326) 40 mol/L 18-72 PROTHROMBIN [id number] 16:29:00 Test Item Value Reference Range Comments PROTIME (BEAKER) (test psnh=393) 16.5 seconds 11.7-14.7 INR (BEAKER) (test cbyj=773) 1.3 <=5.9 RECOMMENDED COUMADIN/WARFARIN INR THERAPY RANGESSTANDARD DOSE: 2.0 - 3.0 Includes: PROPHYLAXIS forvenous thrombosis, systemic embolization; TREATMENT for venous thrombosis and/or pulmonary embolus.HIGH RISK: Target INR is 2.5-3.5 for patients with mechanical heart valves.CBC W/PLT COUNT & AUTO [id number] 16:22:00 Test Item Value Reference Range Comments WHITE BLOOD CELL COUNT (BEAKER) (test ohiz=187) 5.0 K/ L 3.5-10.5 RED BLOOD CELL COUNT (BEAKER) (test ozcx=608) 3.39 M/ L 3.93-5.22 HEMOGLOBIN (BEAKER) (test lflh=600) 10.7 GM/DL 11.2-15.7 HEMATOCRIT (BEAKER) (test plmu=960) 33.1 % 34.1-44.9 MEAN CORPUSCULAR VOLUME (BEAKER) (test fhbd=479) 97.6 fL 79.4-94.8 MEAN CORPUSCULAR HEMOGLOBIN (BEAKER) (test 31.6 pg 25.6-32.2 qdkm=630) MEAN CORPUSCULAR HEMOGLOBIN CONC (BEAKER) (test 32.3 GM/DL 32.2-35.5 lerz=332) RED CELL DISTRIBUTION WIDTH (BEAKER) (test 15.0 % 11.7-14.4 ljse=544) PLATELET COUNT (BEAKER) (test kuvl=278) 98 K/CU MM 150-450 MEAN PLATELET VOLUME (BEAKER) (test dgvr=618) 10.0 fL 9.4-12.3 NUCLEATED RED BLOOD CELLS (BEAKER) (test 0 /100 WBC 0-0 rqzz=763) NEUTROPHILS RELATIVE PERCENT (BEAKER) (test 71 % jpdt=655) LYMPHOCYTES RELATIVE PERCENT (BEAKER) (test 14 % efxr=357) MONOCYTES RELATIVE PERCENT (BEAKER) (test 12 % omdj=153) EOSINOPHILS RELATIVE PERCENT (BEAKER) (test 2 % sxij=720) BASOPHILS RELATIVE PERCENT (BEAKER) (test 1 % vgef=617) NEUTROPHILS ABSOLUTE COUNT (BEAKER) (test 3.51 K/ L 1.56-6.13 mfkk=115) LYMPHOCYTES ABSOLUTE COUNT (BEAKER) (test 0.69 K/ L 1.18-3.74 jmqk=746) MONOCYTES ABSOLUTE COUNT (BEAKER) (test nveo=029) 0.62 K/ L 0.24-0.36 EOSINOPHILS ABSOLUTE COUNT (BEAKER) (test 0.10 K/ L 0.04-0.36 hcnm=365) BASOPHILS ABSOLUTE COUNT (BEAKER) (test gysm=380) 0.04 K/ L 0.01-0.08 IMMATURE GRANULOCYTES-RELATIVE PERCENT (BEAKER) 0 % 0-1 (test tnje=5614) ALPHA FETOPROTEIN (AFP), TUMOR [id number] 17:15:00 Test Item Value Reference Range Comments ALPHA-FETOPROTEIN (BEAKER) (test yndj=9882) 3.3 ng/mL <10.0 [id number] 16:34:00 Test Item Value Reference Range Comments MAGNESIUM (BEAKER) (test fszs=667) 1.8 mg/dL 1.6-2.6 BASIC METABOLIC [id number] 16:34:00 Test Item Value Reference Range Comments SODIUM (BEAKER) (test 133 meq/L 136-145 jjpl=459) POTASSIUM (BEAKER) (test 3.9 meq/L 3.5-5.1 qddq=353) CHLORIDE (BEAKER) (test 99 meq/L 98-107 krep=710) CO2 (BEAKER) (test 25 meq/L 22-29 cjya=119) BLOOD UREA NITROGEN 12 mg/dL 7-21 (BEAKER) (test kxde=699) CREATININE (BEAKER) (test 0.97 mg/dL 0.57-1.25 gxlp=570) GLUCOSE RANDOM (BEAKER) 93 mg/dL 70-105 (test fzyh=864) CALCIUM (BEAKER) (test 9.0 mg/dL 8.4-10.2 iqrh=873) EGFR (BEAKER) (test 54 mL/min/1.73 sq m ESTIMATED GFR IS NOT qjwk=5611) ACCURATE CREATININE CLEARANCE IN PREDICTING GLOMERULAR FILTRATION RATE. ESTIMATED GFR IS NOT APPLICABLE FOR DIALYSIS PATIENTS. Specimen slightly ictericHEPATIC FUNCTION [id number] 16:34:00 Test Item Value Reference Range Comments TOTAL PROTEIN (BEAKER) (test mvby=773) 8.0 gm/dL 6.0-8.3 ALBUMIN (BEAKER) (test mdqx=6619) 3.0 g/dL 3.5-5.0 BILIRUBIN TOTAL (BEAKER) (test cwif=933) 1.9 mg/dL 0.2-1.2 BILIRUBIN DIRECT (BEAKER) (test nfas=053) 0.8 mg/dL 0.1-0.5 ALKALINE PHOSPHATASE (BEAKER) (test dknz=612) 122 U/L 40-150 AST (SGOT) (BEAKER) (test fuqm=762) 30 U/L 5-34 ALT (SGPT) (BEAKER) (test wvpe=014) 12 U/L 6-55 Specimen slightly ictericPROTHROMBIN [id number] 16:17:00 Test Item Value Reference Range Comments PROTIME (BEAKER) (test qvvg=290) 17.3 seconds 11.7-14.7 INR (BEAKER) (test yolu=597) 1.4 <=5.9 RECOMMENDED COUMADIN/WARFARIN INR THERAPY RANGESSTANDARD DOSE: 2.0 - 3.0 Includes: PROPHYLAXIS forvenous thrombosis, systemic embolization; TREATMENT for venous thrombosis and/or pulmonary embolus.HIGH RISK: Target INR is 2.5-3.5 for patients with mechanical heart valves.CBC W/PLT COUNT & AUTO [id number] 16:17:00 Test Item Value Reference Range Comments WHITE BLOOD CELL COUNT (BEAKER) (test aoss=429) 5.6 K/ L 3.5-10.5 RED BLOOD CELL COUNT (BEAKER) (test marz=995) 3.83 M/ L 3.93-5.22 HEMOGLOBIN (BEAKER) (test qmyv=256) 12.0 GM/DL 11.2-15.7 HEMATOCRIT (BEAKER) (test feyi=502) 36.8 % 34.1-44.9 MEAN CORPUSCULAR VOLUME (BEAKER) (test wejo=894) 96.1 fL 79.4-94.8 MEAN CORPUSCULAR HEMOGLOBIN (BEAKER) (test 31.3 pg 25.6-32.2 nglk=822) MEAN CORPUSCULAR HEMOGLOBIN CONC (BEAKER) (test 32.6 GM/DL 32.2-35.5 mpnp=326) RED CELL DISTRIBUTION WIDTH (BEAKER) (test 15.9 % 11.7-14.4 rrsu=545) PLATELET COUNT (BEAKER) (test yjou=880) 83 K/CU MM 150-450 MEAN PLATELET VOLUME (BEAKER) (test xolf=399) 11.1 fL 9.4-12.3 NUCLEATED RED BLOOD CELLS (BEAKER) (test 0 /100 WBC 0-0 udzu=037) NEUTROPHILS RELATIVE PERCENT (BEAKER) (test 54 % ohkr=617) LYMPHOCYTES RELATIVE PERCENT (BEAKER) (test 36 % yrzv=466) MONOCYTES RELATIVE PERCENT (BEAKER) (test 8 % ojgf=393) EOSINOPHILS RELATIVE PERCENT (BEAKER) (test 2 % dgxk=548) BASOPHILS RELATIVE PERCENT (BEAKER) (test 1 % whyx=778) NEUTROPHILS ABSOLUTE COUNT (BEAKER) (test 3.01 K/ L 1.56-6.13 jrdi=790) LYMPHOCYTES ABSOLUTE COUNT (BEAKER) (test 1.98 K/ L 1.18-3.74 zupu=352) MONOCYTES ABSOLUTE COUNT (BEAKER) (test cwbh=465) 0.44 K/ L 0.24-0.36 EOSINOPHILS ABSOLUTE COUNT (BEAKER) (test 0.10 K/ L 0.04-0.36 bikp=504) BASOPHILS ABSOLUTE COUNT (BEAKER) (test bmlu=072) 0.04 K/ L 0.01-0.08 IMMATURE GRANULOCYTES-RELATIVE PERCENT (BEAKER) 0 % 0-1 (test khah=1785) ALPHA FETOPROTEIN (AFP), TUMOR [id number] 16:14:00 Test Item Value Reference Range Comments ALPHA-FETOPROTEIN (BEAKER) (test mqcd=4700) 5.7 ng/mL <10.0 Effective 07/17/2014: Reference Range ChangeNew: <10.0 Previous: 0.0- [id number] 15:57:00 Test Item Value Reference Range Comments MAGNESIUM (BEAKER) (test molv=984) 1.9 mg/dL 1.6-2.6 BASIC METABOLIC [id number] 15:57:00 Test Item Value Reference Range Comments SODIUM (BEAKER) (test 139 meq/L 136-145 oyot=166) POTASSIUM (BEAKER) (test 4.5 meq/L 3.5-5.1 cqda=110) CHLORIDE (BEAKER) (test 105 meq/L 98-107 tvel=176) CO2 (BEAKER) (test 25 meq/L 22-29 zeqj=986) BLOOD UREA NITROGEN 15 mg/dL 7-21 (BEAKER) (test fcev=643) CREATININE (BEAKER) (test 0.95 mg/dL 0.57-1.25 oapc=465) GLUCOSE RANDOM (BEAKER) 86 mg/dL 70-105 (test nnbp=466) CALCIUM (BEAKER) (test 9.4 mg/dL 8.4-10.2 ndoa=648) EGFR (BEAKER) (test 56 mL/min/1.73 sq m ESTIMATED GFR IS NOT jyns=2366) ACCURATE CREATININE CLEARANCE IN PREDICTING GLOMERULAR FILTRATION RATE. ESTIMATED GFR IS NOT APPLICABLE FOR DIALYSIS PATIENTS. Specimen slightly ictericHEPATIC FUNCTION [id number] 15:57:00 Test Item Value Reference Range Comments TOTAL PROTEIN (BEAKER) (test mius=452) 7.6 gm/dL 6.0-8.3 ALBUMIN (BEAKER) (test lulr=2588) 3.2 g/dL 3.5-5.0 BILIRUBIN TOTAL (BEAKER) (test pikt=509) 1.8 mg/dL 0.2-1.2 BILIRUBIN DIRECT (BEAKER) (test ddok=296) 0.8 mg/dL 0.1-0.5 ALKALINE PHOSPHATASE (BEAKER) (test xwqh=038) 112 U/L 40-150 AST (SGOT) (BEAKER) (test byal=971) 33 U/L 5-34 ALT (SGPT) (BEAKER) (test jmok=396) 17 U/L 6-55 Specimen slightly ictericPROTHROMBIN [id number] 15:56:00 Test Item Value Reference Range Comments PROTIME (BEAKER) (test ntic=599) 16.7 seconds 11.7-14.7 INR (BEAKER) (test hovg=513) 1.4 <=5.9 RECOMMENDED COUMADIN/WARFARIN INR THERAPY RANGESSTANDARD DOSE: 2.0 - 3.0 Includes: PROPHYLAXIS forvenous thrombosis, systemic embolization; TREATMENT for venous thrombosis and/or pulmonary embolus.HIGH RISK: Target INR is 2.5-3.5 for patients with mechanical heart valves.CBC W/PLT COUNT & AUTO [id number] 15:56:00 Test Item Value Reference Range Comments WHITE BLOOD CELL COUNT (BEAKER) (test qwwy=787) 5.3 K/ L 4.0-10.0 RED BLOOD CELL COUNT (BEAKER) (test fqvu=364) 4.21 M/ L 4.00-5.00 HEMOGLOBIN (BEAKER) (test ezfb=425) 14.1 GM/DL 12.0-15.0 HEMATOCRIT (BEAKER) (test wiri=974) 41.7 % 36.0-45.0 MEAN CORPUSCULAR VOLUME (BEAKER) (test jimq=033) 99.1 fL 82.0-99.0 MEAN CORPUSCULAR HEMOGLOBIN (BEAKER) (test 33.4 pg 27.0-33.0 kceh=784) MEAN CORPUSCULAR HEMOGLOBIN CONC (BEAKER) (test 33.7 GM/DL 32.0-36.0 vclc=118) RED CELL DISTRIBUTION WIDTH (BEAKER) (test 13.2 % 10.3-14.2 gwjh=931) PLATELET COUNT (BEAKER) (test hinf=979) 77 K/CU MM 150-430 MEAN PLATELET VOLUME (BEAKER) (test fomg=704) 8.4 fL 6.5-10.5 NUCLEATED RED BLOOD CELLS (BEAKER) (test 0 /100 WBC 0-0 aare=294) NEUTROPHILS RELATIVE PERCENT (BEAKER) (test 54 % xsho=670) LYMPHOCYTES RELATIVE PERCENT (BEAKER) (test 33 % zvvt=138) MONOCYTES RELATIVE PERCENT (BEAKER) (test 10 % ynkw=730) EOSINOPHILS RELATIVE PERCENT (BEAKER) (test 3 % npsk=966) BASOPHILS RELATIVE PERCENT (BEAKER) (test 0 % uzca=014) NEUTROPHILS ABSOLUTE COUNT (BEAKER) (test 2.86 K/ L 1.80-8.00 xfbj=708) LYMPHOCYTES ABSOLUTE COUNT (BEAKER) (test 1.77 K/ L 1.48-4.50 itvo=667) MONOCYTES ABSOLUTE COUNT (BEAKER) (test vefw=490) 0.56 K/ L 0.00-1.30 EOSINOPHILS ABSOLUTE COUNT (BEAKER) (test 0.13 K/ L 0.00-0.50 iqem=292) BASOPHILS ABSOLUTE COUNT (BEAKER) (test duls=472) 0.02 K/ L 0.00-0.20 [id number] 11:05:00 Test Item Value Reference Range Comments POC-CREATININE (BEAKER) 0.9 mg/dL 0.6-1.[address] [facility] [address] [facility] (test hpsk=5715) [facility] [address] POC-EGFR (BEAKER) (test 59 mL/min/1.73M2 mtio=1495)
[2019-02-03] MEDS ORDERED: NA CHLORIDE 0.9% 500 ML ONE (15:14)
[2019-02-03 16:01] LABS: Body Fluid Source PERITONEAL
[2019-02-03 16:47] LABS: Appearance CLEAR (CLEAR); Color of fluid Yellow (COLORLESS)
[2019-02-03 16:53] LABS: Body Fluid WBC 85 /mm^3
--- NOTE | 2019-02-03 17:08 | EDPHYS ---
Physician Documentation [facility] Name: Whitney Villalta Age: 88 yrs Sex: Female : 1930 Arrival Date: 02/03/2019 Time: 14:21 Bed 5 Private MD: ED Physician Sen Moscoso HPI: 02/03 15:05 This 88 yrs old Female presents to ER via Wheelchair with complaints of Blood rn Pressure Problem. 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 Given albumin and BP remained on low side. Otherwise feels ok. Denies fever/chest pain/sob/cough/vomiting/diarrhea. . Onset: The symptoms/episode began/occurred just prior to arrival. Severity of symptoms: At their worst the symptoms were mild in the emergency department the symptoms are unchanged. The patient has experienced similar episodes in the past. The patient has been recently seen by a physician:. Historical: - Allergies: 14:34 adhesive tapes; aa5 14:34 Morphine; aa5 - Home Meds: 14:37 docusate sodium 100 mg Oral cap 1 cap at bedtime [Active]; gabapentin 300 mg Oral cap 1 tw2 cap 3 times per day [Active]; Iron CR Oral 28 mg twice a day [Active]; magnesium oxide 250 mg Oral tab twice a day [Active]; furosemide 40 mg Oral tab 1 tab once daily [Active]; midodrine 5 mg Oral tab 2 tabs twice a day [Active]; potassium chloride 10 mEq Oral cpER 1 cap 2 times per day [Active]; rifaximin 200 mg Oral 1 tab 2 times per day [Active]; spironolactone 25 mg Oral tab 2 tabs daily [Active]; sulfamethoxazole-trimethoprim Oral 2 times per day [Active]; - PMHx: 14:34 colon cancer; Liver disease; Lower extremity edema; Pneumonia; stage 3 cirrhosis; aa5 - Immunization history:: Adult Immunizations. - Ebola Screening: : No symptoms or risks identified at this time. - Social history:: Smoking status: . - Family history:: not pertinent. - Hospitalizations: : No recent hospitalization is reported. ROS: 15:05 Constitutional: Negative for fever, chills, and weight loss, Eyes: Negative for injury, rn pain, redness, and discharge, Neck: Negative for injury, pain, and swelling, Cardiovascular: Negative for chest pain, palpitations, and edema, Respiratory: Negative for shortness of breath, cough, wheezing, and pleuritic chest pain, Abdomen/GI: Negative for abdominal pain, nausea, vomiting, diarrhea, and constipation, MS/Extremity: Negative for injury and deformity, Skin: Negative for injury, rash, and discoloration, Neuro: Negative for headache, weakness, numbness, tingling, and seizure. Exam: 15:05 Constitutional: This is a well developed, well nourished patient who is awake, alert, rn and in no acute distress. Head/Face: Normocephalic, atraumatic. Eyes: Pupils equal round and reactive to light, extra-ocular motions intact Cardiovascular: Regular rate and rhythm. No pulse deficits. Respiratory: Lungs have equal breath sounds bilaterally, clear to auscultation. No increased work of breathing, no retractions or nasal flaring. Abdomen/GI: soft, no peritoneal signs MS/ Extremity: Pulses equal, no cyanosis. 2+ pitting edema bilateral lower ext. Neuro: Awake and alert, GCS 15, oriented to person, place, time, and situation. Cranial nerves II-XII grossly intact. Motor strength 5/5 in all extremities. Sensory grossly intact. Cerebellar exam normal. Vital Signs: 14:35 BP 82 / 46; Pulse 73; Resp 16 S; Temp 97.5(O); Pulse Ox 100% on R/A; Pain 0/10; aa5 14:57 BP 96 / 56; Pulse 70; Resp 17; Pulse Ox 100% on R/A; tw2 15:37 BP 97 / 62; Pulse 73; Resp 17; Pulse Ox 100% on R/A; tw2 16:17 BP 100 / 58; Pulse 71; Resp 17; Pulse Ox 99% on R/A; tw2 17:36 BP 98 / 56; Pulse 73; Resp 17; Pulse Ox 99% on R/A; tw2 18:09 BP 94 / 59; Pulse 76; Resp 17; Pulse Ox 99% on R/A; tw2 MDM: 14:39 Patient medically screened. rn 16:17 Differential Diagnosis Hypotension 2/2 large volume paracentesis. Improved with albumin rn and small amount of fluids.. 17:05 Data reviewed: vital signs, nurses notes, lab test result(s), and as a result, I will internal investigator patient. Counseling: I had a detailed discussion with the patient and/or guardian regarding: the historical points, exam findings, and any diagnostic results supporting the discharge/admit diagnosis, lab results, the need for outpatient follow up, to return to the emergency department if symptoms worsen or persist or if there are any questions or concerns that arise at home. Special discussion: I discussed with the patient/guardian in detail that at this point there is no indication for admission to the hospital. It is understood, however, that if the symptoms persist or worsen the patient needs to return immediately for re-evaluation. ED course: Pt with improved BP, still asymptomatic, current BP likely sweet spot of decent BP and not forcing too aggressive fluid hydration to cause reaccumulation of fluid in this cirrhotic patient. She and daughter agree. . 02/03 15:25 Order name: Body Fluid Cell Count EDRI 02/03 15:25 Order name: Miscellaneous Test Lab; Complete Time: 16:14 EDRI 02/03 15:25 Order name: Body Fluid Culture EDRI Administered Medications: 15:04 Drug: NS 0.9% 500 ml {Note: Right upper arm Red port.} Route: IV; Rate: bolus; Site: [facility] PICC; 16:10 Follow up: Response: No adverse reaction; IV Status: Completed infusion; IV Intake: tw2 500ml 17:35 Drug: NS 0.9% 250 ml Route: IV; Rate: 1 bolus; Site: PICC; tw2 18:10 Follow up: Response: No adverse reaction; IV Status: Completed infusion; IV Intake: tw2 250ml Disposition: 02/03/19 17:08 Discharged to Home. Impression: Hypotension, unspecified. - Condition is Stable. - Discharge Instructions: Hypotension. - Medication Reconciliation Form, Thank You Letter, Antibiotic Education, Prescription Opioid Use form. - Follow up: Private Physician; When: As needed; Reason: Recheck today's complaints, Re-evaluation by your physician. - Problem is new. - Symptoms have improved. Signatures: Dispatcher [employer] [facility] Sen Moscoso MD MD rn Calderon, Audri, RN RN aa5 Kimberly Martin RN RN tw2 Corrections: (The following items were deleted from the chart) 15:03 14:46 IV Saline Lock ordered. rn tw2 18:10 17:08 02/03/2019 17:08 Discharged to Home. Impression: Hypotension, unspecified. tw2 Condition is Stable. Forms are Medication Reconciliation Form, Thank You Letter, Antibiotic Education, Prescription Opioid Use. Follow up: Private Physician; When: As needed; Reason: Recheck today's complaints, Re-evaluation by your physician. Problem is new. Symptoms have improved. rn
--- NOTE | 2019-02-03 17:08 | ER ---
Nurse's Notes [facility] Name: Whitney Villalta Age: 88 yrs Sex: Female : 1930 Arrival Date: 02/03/2019 Time: 14:21 Bed 5 Private MD: Diagnosis: Hypotension, unspecified Presentation: 02/03 14:29 Presenting complaint: Same Day Surgery nurse Martin Omalley RN states "the patient had aa5 paracentesis completed today at 0840 and got 7 L removed and her blood pressure gradually started decreasing, it was around 112 systolic and down to 83/[address] Dunn and he said to bring her here". KULDIP Salazar also reports administering Albumin 75 grams. Pt denies any complaints. Transition of care: patient was not received from another setting of care. Onset of symptoms was February 03, 2019. Risk Assessment: Do you want to hurt yourself or someone else? Patient reports no desire to harm self or others. Care prior to arrival: None. 14:29 Method Of Arrival: Wheelchair aa5 14:29 Acuity: KELLY 2 aa5 14:36 Initial Sepsis Screen: Does the patient meet any 2 criteria? Mean Arterial Pressure tw2 (MAP) < 65. Does the patient have a suspected source of infection? No. Patient's initial sepsis screen is negative. Historical: - Allergies: 14:34 adhesive tapes; aa5 14:34 Morphine; aa5 - Home Meds: 14:37 docusate sodium 100 mg Oral cap 1 cap at bedtime [Active]; gabapentin 300 mg Oral cap 1 tw2 cap 3 times per day [Active]; Iron CR Oral 28 mg twice a day [Active]; magnesium oxide 250 mg Oral tab twice a day [Active]; furosemide 40 mg Oral tab 1 tab once daily [Active]; midodrine 5 mg Oral tab 2 tabs twice a day [Active]; potassium chloride 10 mEq Oral cpER 1 cap 2 times per day [Active]; rifaximin 200 mg Oral 1 tab 2 times per day [Active]; spironolactone 25 mg Oral tab 2 tabs daily [Active]; sulfamethoxazole-trimethoprim Oral 2 times per day [Active]; - PMHx: 14:34 colon cancer; Liver disease; Lower extremity edema; Pneumonia; stage 3 cirrhosis; aa5 - Immunization history:: Adult Immunizations. - Ebola Screening: : No symptoms or risks identified at this time. - Social history:: Smoking status: . - Family history:: not pertinent. - Hospitalizations: : No recent hospitalization is reported. Screenin:35 Abuse screen: Denies threats or abuse. Nutritional screening: No deficits noted. tw2 Tuberculosis screening: No symptoms or risk factors identified. Fall Risk Secondary diagnosis (15 points) impaired mobility. Assessment: 14:35 General: Appears in no apparent distress. Behavior is calm, cooperative, appropriate tw2 for age. Pain: Denies pain. Neuro: Level of Consciousness is awake, alert, obeys commands, Oriented to person, place, time, situation. Cardiovascular: Heart tones S1 S2 Capillary refill < 3 seconds Patient's skin is warm and dry. Cardiovascular: Edema is 1+ to left midcalf, left ankle, right midcalf and right ankle. Respiratory: Airway is patent Respiratory effort is even, unlabored, Respiratory pattern is regular, symmetrical, Breath sounds are clear bilaterally. GI: Abdomen is round noted to have ascites, Bowel sounds present X 4 quads. : No signs and/or symptoms were reported regarding the genitourinary system. EENT: No signs and/or symptoms were reported regarding the EENT system. Derm: Musculoskeletal: Range of motion: intact in all extremities. 15:38 Reassessment: Patient appears in no apparent distress at this time. No changes from tw2 previously documented assessment. Patient and/or family updated on plan of care and expected duration. Pain level reassessed. Patient is alert, oriented x 3, equal unlabored respirations, skin warm/dry/pink. 16:17 Reassessment: Patient appears in no apparent distress at this time. No changes from tw2 previously documented assessment. Patient and/or family updated on plan of care and expected duration. Pain level reassessed. Patient is alert, oriented x 3, equal unlabored respirations, skin warm/dry/pink. 17:36 Reassessment: Patient appears in no apparent distress at this time. No changes from tw2 previously documented assessment. Patient and/or family updated on plan of care and expected duration. Pain level reassessed. Patient is alert, oriented x 3, equal unlabored respirations, skin warm/dry/pink. 18:09 Reassessment: Patient appears in no apparent distress at this time. No changes from tw2 previously documented assessment. Patient and/or family updated on plan of care and expected duration. Pain level reassessed. Patient is alert, oriented x 3, equal unlabored respirations, skin warm/dry/pink. Vital Signs: 14:35 BP 82 / 46; Pulse 73; Resp 16 S; Temp 97.5(O); Pulse Ox 100% on R/A; Pain 0/10; aa5 14:57 BP 96 / 56; Pulse 70; Resp 17; Pulse Ox 100% on R/A; tw2 15:37 BP 97 / 62; Pulse 73; Resp 17; Pulse Ox 100% on R/A; tw2 16:17 BP 100 / 58; Pulse 71; Resp 17; Pulse Ox 99% on R/A; tw2 17:36 BP 98 / 56; Pulse 73; Resp 17; Pulse Ox 99% on R/A; tw2 18:09 BP 94 / 59; Pulse 76; Resp 17; Pulse Ox 99% on R/A; tw2 ED Course: 14:21 Patient arrived in ED. aa5 14:29 Arm band placed on. aa5 14:34 Triage completed. aa5 14:35 Kimberly Martin, RN is Primary Nurse. tw2 14:36 Bed in low position. Call light in reach. laboratory monitor on. Pulse ox on. NIBP on. tw2 14:39 Sen Moscoso MD is Attending Physician. rn 17:35 Awaiting: completion of IV fluids PRIOR to discharge. tw2 18:09 No provider procedures requiring assistance completed. Patient did not have IV access tw2 during this emergency room visit. pt PICC to upper RIGHT arm remains in place. Administered Medications: 15:04 Drug: NS 0.9% 500 ml {Note: Right upper arm Red port.} Route: IV; Rate: bolus; Site: tw2 PICC; 16:10 Follow up: Response: No adverse reaction; IV Status: Completed infusion; IV Intake: tw2 500ml 17:35 Drug: NS 0.9% 250 ml Route: IV; Rate: 1 bolus; Site: PICC; tw2 18:10 Follow up: Response: No adverse reaction; IV Status: Completed infusion; IV Intake: tw2 250ml Intake: 16:10 IV: 500ml; Total: 500ml. tw2 18:10 IV: 250ml; Total: 750ml. tw2 Outcome: 17:08 Discharge ordered by . rn 18:09 Discharged to home via wheelchair, with family. tw2 18:09 Condition: stable 18:09 Discharge instructions given to patient, family, Instructed on discharge instructions, follow up and referral plans. Demonstrated understanding of instructions, follow-up care. 18:10 Patient left the ED. tw2 Signatures: Sen Moscoso MD MD rn Calderon, Audri, RN RN aa5 iKmberly Martin RN RN tw2 Corrections: (The following items were deleted from the chart) 14:36 14:29 Presenting complaint: Same Day Surgery nurse Martin Omalley RN states "the patient aa5 had paracentesis completed today at 0840 and got 7L removed and her blood pressure gradually started decreasing, it was around 112 systolic and down to 83/[address] Dunn and he said to bring her here". Pt denies any complaints. aa5 14:37 14:29 Presenting complaint: Same Day Surgery nurse Martin Omalley RN states "the patient aa5 had paracentesis completed today at 0840 and got 7 L removed and her blood pressure gradually started decreasing, it was around 112 systolic and down to 83/[address] Dunn and he said to bring her here". KULDIP Salazar also reports administering Albumin 75mg. Pt denies any complaints. aa5
[2019-02-03] MEDS ORDERED: NA CHLORIDE 0.9% 250 ML ONE (17:49)
[2019-02-03 18:54] VITALS: TEMP 97.5
[2019-02-03 18:58] VITALS: O2SAT 99
[2019-02-03 19:01] VITALS: BP 94/59
== END 2019-02-03 18:10 | disposition home or self-care (01) ==
LOC: ER 14:18
DX: I95.9 Hypotension, unspecified (principal); C18.9 Malignant neoplasm of colon, unspecified; Z91.048 Other nonmedicinal substance allergy status; Z88.5 Allergy status to narcotic agent
CPT/HCPCS: 36415; 87070; 89050; 96361; 96365; 99284

== ENCOUNTER → 2019-02-03 | Day surgery (SDC) | payer OTHER ==
[~2019-02-03] MED LIST changes: +ALBUMIN HUMAN 25% 100 ML IV ONE; +ALBUMIN HUMAN 25% 200 ML IV ONE; -ALBUMIN HUMAN 25% 300 ML IV ONE; -CEFAZOLIN/SWI 1gm 1 GM/10 ML SYR ONE
--- OUTSIDE RECORDS SUMMARY | 2019-02-03 08:49 | XMS REPORT | Clinical Summary ---
:1930 Author Organization [facility] Address [address] [place] [address] Care Team Providers Name Role Phone Kandy Castillo PA-C Physician Hand Weaver Unavailable Ankush Levine Referring Physician Fareed Ballesteros [...] infection 09/06/2014 Overview: SNOMED/[place] [id number] Last Assessment & Plan: Cirrhosis of liver [...] chronic hepatitis C infection (HCC) (Primary Dx); [facility], [facility] Screening for cancer; Hepatology Clinic E [...] 02/25/2018 Documentation Hepatology Lissette Solorio RN after 02/02/2018 Family History Medical History Relation Name Comments [...] Taken Blood Pressure 94/60 08/10/2018 2:08 PM [employer] Pulse 92 08/10/2018 2:08 PM [employer] Temperature 36.3 C (97.4 F) 08/10/2018 2:08 PM [employer] Respiratory Rate 16 08/10/2018 2:08 PM [facility] Oxygen Saturation 98% 08/10/2018 2:08 PM [employer] Inhaled Oxygen Concentration - - Weight 58.2 kg (128 lb 6.4 oz) 08/10/2018 2:08 PM [employer] Height 165.1 cm (5' 5") 08/10/2018 2:08 PM [employer] Body Mass Index 21.37 08/10/2018 2:08 PM [employer] Plan of Treatment Date Type Specialty Care Team Description 02/08/2019 Office Visit Hepatology Resource, [facility] Hepatology Clinic A Procedures Procedure Name Priority Date/Time Associated Comments Diagnosis CBC W/PLT COUNT & Routine 08/10/2018 3:45 Hepatic cirrhosis Results for this AUTO DIFFERENTIAL PM [employer] due to chronic procedure are in hepatitis C the results infection (HCC) section. Screening for cancer Encephalopathy AMMONIA Routine 08/10/2018 3:45 Hepatic cirrhosis Results for this PM [employer] due to chronic procedure are in hepatitis C the results infection (HCC) section. Screening for cancer Encephalopathy ALPHA FETOPROTEIN Routine 08/10/2018 3:45 Hepatic cirrhosis Results for this (AFP), TUMOR MARKER PM [employer] due to chronic procedure are in hepatitis C the results infection (HCC) section. Screening for cancer Encephalopathy PROTHROMBIN TIME/INR Routine 08/10/2018 3:45 Hepatic cirrhosis Results for this PM [employer] due to chronic procedure are in hepatitis C the results infection (HCC) section. Screening for cancer Encephalopathy CBC W/PLT COUNT & Routine 08/10/2018 3:45 Hepatic cirrhosis Results for this AUTO DIFFERENTIAL PM [employer] OFF due to chronic procedure are in hepatitis C the results infection (HCC) section. Screening for cancer Encephalopathy HEPATIC FUNCTION Routine 08/10/2018 3:45 Hepatic cirrhosis Results for this PANEL PM [employer] due to chronic procedure are in hepatitis C the results infection (HCC) section. Screening for cancer Encephalopathy BASIC METABOLIC PANEL Routine 08/10/2018 3:45 Hepatic cirrhosis Results for this (7) PM [employer] due to chronic procedure are in hepatitis C the results infection (HCC) section. Screening for cancer Encephalopathy after 02/02/2018 Results CBC with platelet count + automated diff (08/10/2018 3:45 PM [employer]) WBC 5.0 3.5 - 10.5 K/L [facility] RBC 3.39 (L) 3.93 - 5.22 M/L [facility] Hemoglobin 10.7 (L) 11.2 - 15.7 GM/DL [facility] Hematocrit 33.1 (L) 34.1 - 44.9 % [facility] MCV 97.6 (H) 79.4 - 94.8 fL [facility] MCH 31.6 25.6 - 32.2 pg [facility] MCHC 32.3 32.2 - 35.5 GM/DL [facility] RDW 15.0 (H) 11.7 - 14.4 % [facility] Platelets 98 (L) 150 - 450 K/CU MM [facility] MPV 10.0 9.4 - 12.3 fL [facility] nRBC 0 0 - 0 /100 WBC [facility] % Neutros 71 % [facility] % Lymphs 14 % [facility] % Monos 12 % [facility] % Eos 2 % [facility] % Baso 1 % [facility] # Neutros 3.51 1.56 - 6.13 K/L [facility] # Lymphs 0.69 (L) 1.18 - 3.74 K/L [facility] # Monos 0.62 (H) 0.24 - 0.36 K/L [facility] # Eos 0.10 0.04 - 0.36 K/L [facility] # Baso 0.04 0.01 - 0.08 K/L [facility] Immature Granulocytes-Relative 0 0 - 1 % [facility] Specimen Blood Performing Organization Address City/[facility] Phone Number [address] [address] [employer] Alpha fetoprotein (AFP), tumor marker (08/10/2018 3:45 PM [employer]) Alpha-Fetoprotein 2.9 <10.0 ng/mL [facility] Specimen Blood Performing Organization Address [facility] Phone Number [address] [address] C[place] Pro-time/INR (08/10/2018 3:45 PM [employer]) Protime 16.5 (H) 11.7 - 14.7 seconds [facility] INR 1.3 <=5.9 [facility] Specimen Blood Narrative Performed At RECOMMENDED COUMADIN/WARFARIN INR THERAPY [facility] RANGES STANDARD DOSE: 2.0 - 3.0 Includes: PROPHYLAXIS for venous thrombosis, systemic embolization; TREATMENT for venous thrombosis and/or pulmonary embolus. HIGH RISK: Target INR is 2.5-3.5 for patients with mechanical heart valves. Performing Organization Address City/[facility] Phone Number [address] [address] [facility] Ammonia (08/10/2018 3:45 PM [employer]) Ammonia 40 18 - 72 mol/L [facility] Specimen Blood Performing Organization Address [facility] Phone Number [address] [address] C[place] Hepatic function panel (08/10/2018 3:45 PM [employer]) Protein, Total 9.0 (H) 6.0 - 8.3 gm/dL [facility] Albumin 2.8 (L) 3.5 - 5.0 g/dL [facility] Total Bilirubin 1.2 0.2 - 1.2 mg/dL [facility] Bilirubin, Direct 0.7 (H) 0.1 - 0.5 mg/dL [facility] Alkaline Phosphatase 111 40 - 150 U/L [facility] AST 31 5 - 34 U/L [facility] ALT 12 6 - 55 U/L [facility] Specimen Blood Performing Organization Address City/[facility] Phone Number [address] [address] [employer] Basic Metabolic Panel (08/10/2018 3:45 PM [employer]) Sodium 133 (L) 136 - 145 meq/L [facility] Potassium 4.0 3.5 - 5.1 meq/L [facility] Chloride 100 98 - 107 meq/L [facility] CO2 27 22 - 29 meq/L [facility] BUN 20 7 - 21 mg/dL [facility] Creatinine 1.07 0.57 - 1.25 mg/dL [facility] Glucose 71 70 - 105 mg/dL [facility] Calcium 9.4 8.4 - 10.2 mg/dL [facility] EGFR 49Comment: ESTIMATED GFR IS mL/min/1.73 sq m [facility] NOT ACCURATE [facility] CLEARANCE IN PREDICTING GLOMERULAR FILTRATION RATE. ESTIMATED GFR IS NOT APPLICABLE FOR DIALYSIS PATIENTS. Specimen Blood Performing Organization Address City/[facility] Phone Number [address] [place] [address] CENTER after 02/02/2018 Insurance Payer Benefit Plan / Group Subscriber ID Type Phone Address MEDICARE MEDICARE A B xxxxxxxxxxx Medicare MCR GENERIC MEDICARE xxxxxxxxx [employer] SUPPLEMENT/INDIVIDUAL SUPPLEMENT
--- OUTSIDE RECORDS SUMMARY | 2019-02-03 08:55 | XMS REPORT | Continuity of Care Document ---
[...] DX:153.9=ADENOCARC 014 [place] INOMA V10.05 Active 014 [facility] Umbilical Active Problem 04/24/2017 Data migrated hernia<sup>2</sup> 014 from [facility] Cent[facility] on 01/28/15. Umbilical Active Problem 01/17/2018 Data migrated Medical hernia<sup>5</sup> 014 from [facility] Cent[facility]ity on [facility] 01/28/15. UMB HERNIA WITHOUT Active Condition 04/27/2014 Medical MENTION 014 Group OBSTRUCTION/GANGRE NE LARGE INTESTINE Active Condition 04/27/2014 Medical CANCER 012 Group SCREENING FOR Active Condition 04/27/2014 [facility] COLON CANCER 012 Group Carcinoma of Active Problem 01/17/2018 Data migrated ascending 011 from [facility] colon<sup>1</sup> Centricity on [facility] 01/28/15. Group CARCINOMA, Active Condition 04/27/2014 [facility] ASCENDING COLON 011 Group Cancer of colon Active Problem 01/17/2018 011 [facility] CH - Chronic Active Problem 04/24/2017 hepatitis [facility] DVT (<span Resolved Problem 04/24/2017 ID="[id number]">C [facility] onfirmed</span>) Bronchitis Resolved Problem 01/17/2018 [facility] CAD - Coronary Active Problem 01/17/2018 artery disease [facility] CH - Chronic Active Problem 01/17/2018 blood Medical hepatitis<sup>2</s transfusion Group, up> 1965 [facility] Chemotherapy Resolved Problem 01/17/2018 [facility] 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 [facility] Cirrhosis of liver Active Problem 01/17/2018 [facility] Colon cancer Resolved Problem 01/17/2018 [facility] DVT (<span Resolved Problem 01/17/2018 1966 Medical ID="[id number]">C Group, onfirmed</span>)<s [place] up>3, 4</sup> SOB on Active Problem 01/17/2018 Medical exertion(<span Group, ID="[id number]"> [place] Confirmed</span>) Esophageal varices Active Problem 01/17/2018 [facility] Hepatitis C Active Problem 01/17/2018 [facility] Hernia repair Resolved Problem 01/17/2018 [facility] History of colon Active Problem 01/17/2018 cancer [facility] Incisional hernia Active Problem 01/17/2018 [facility] Kidney stones Active Problem 01/17/2018 Medical Group,[facility] Neuropathy Active Problem 01/17/2018 [facility] Pneumonia Active Problem 01/17/2018 [facility] Recurrent UTI Active Problem 01/17/2018 Medical Group Unspecified Active Diagnosis 08/26/2015 2..1. infectious disease [id number] 1. Bacterial Active Diagnosis 08/26/2015 2.0.1. infection [id number] 1. Other Active Diagnosis 08/26/2015 2.0.1. encephalopathy [id number] 1. Esophageal varices Active Diagnosis 08/26/2015 2.16840.1. [id number] 1. Hepatic cirrhosis Active Diagnosis 08/26/2015 2.16840.1. [id number] 1. UTI Active Problem 08/26/2015 2.16.840.1. [id number] 1.11.10006 MALIGNANT MIGEL Active MH COLON NOS [facility] 153.9 Active MH [facility] HEPATOPULMONARY Active MH SYNDROME [facility] HX OF COLONIC Active MH MALIGNANCY [facility] URIN TRACT Active MH INFECTION NOS [facility] INCISIONAL HERNIA Active MH [facility] MALIGNANT NEOPLASM Active MH OF COLON, [facility] UNSPECIFIED PERSONAL HISTORY Active MH OF MALIGNANT [facility] NEOPLASM O CALCULUS OF KIDNEY Active MH [facility] Medications Medication Details Route Status Patient Ordering Order Source Instructions Provider Date Acetaminophen 2 tab, PO, Active 300 MG / Q6H, PRN 2016 [facility] Codeine Pain, X 7 Phosphate 30 MG day, # 56 Oral Tablet tab, 0 [Tylenol with Refill(s) Codeine #3] esmolol (ANES) Route: IV, Inactive Drug form: 2016 [facility] INJ, ONCE, Stop date: 08/03/17 13:22:00 COMPACTING MACHINE OPERATOR/TENDER ondansetron Route: IV, Inactive (ANES) Drug form: 2016 [facility] INJ, ONCE, Stop date: 08/03/17 13:07:00 COMPACTING MACHINE OPERATOR/TENDER propofol (ANES) Route: IV, Inactive Drug form: 2016 [facility] INJ, ONCE, Stop date: 08/03/17 13:07:00 COMPACTING MACHINE OPERATOR/TENDER lidocaine Route: IV, Inactive (ANES) Drug form: 2016 [facility] INJ, ONCE, Stop date: 08/03/17 13:07:00 COMPACTING MACHINE OPERATOR/TENDER ciprofloxacin Route: IV, Inactive (ANES) Drug form: 2016 [facility] INJ, ONCE, Stop date: 08/03/17 13:07:00 COMPACTING MACHINE OPERATOR/TENDER dexamethasone Route: IV, Inactive (ANES) Drug form: 2016 [facility] INJ, ONCE, Stop date: 08/03/17 13:07:00 COMPACTING MACHINE OPERATOR/TENDER fentaNYL (ANES) Route: IV, Inactive Drug form: 2016 [facility] INJ, ONCE, Stop date: 08/03/17 13:02:00 COMPACTING MACHINE OPERATOR/TENDER Calcium 1,000 mL, Inactive Chloride 0.0014 Rate: 25 2016 MEQ/ML / ml/hr, Infuse Potassium over: 40 hr, Chloride 0.004 Route: IV, MEQ/ML / Sodium Dosing Weight Chloride 0.103 74.091 kg, MEQ/ML / Sodium Total Volume: Lactate 0.028 1,000, Start MEQ/ML date: Injectable 08/03/17 Solution 12:12:00 COMPACTING MACHINE OPERATOR/TENDER, Duration: 30 day, Stop date: 09/02/17 12:11:00 COMPACTING MACHINE OPERATOR/TENDER, 1.86, m2 vancomycin Route: IV, Inactive (ANES) 1000 mg Drug form: 2016 [facility] INJ, Start date: 08/03/17 12:10:00 COMPACTING MACHINE OPERATOR/TENDER, Stop date: 08/03/17 13:10:00 COMPACTING MACHINE OPERATOR/TENDER Lactated Route: IV, Inactive Ringers Total Volume: 2016 [facility] Injection IV 1,000, Start (ANES) 1000 mL date: 08/03/17 12:10:00 COMPACTING MACHINE OPERATOR/TENDER, Stop date: 08/03/17 13:10:00 COMPACTING MACHINE OPERATOR/TENDER Ceftriaxone 1 gm, Route: No Longer IVPB, Q12H, Active 2016 [facility] Dosing Weight 74.091, kg, Start date: 08/02/17 21:00:00 COMPACTING MACHINE OPERATOR/TENDER, Duration: 24 hr, Stop date: 08/03/17 9:00:00 COMPACTING MACHINE OPERATOR/TENDER, ABX Indication: Urinary Tract Infection phenylephrine Route: IV, Inactive (ANES) Drug form: 2016 [facility] INJ, ONCE, Stop date: 04/21/17 10:51:00 CDT ondansetron Route: IV, Inactive (ANES) Drug form: 2016 [facility] INJ, ONCE, Stop date: 04/21/17 10:41:00 CDT dexamethasone Route: IV, Inactive (ANES) Drug form: 2016 [facility] INJ, ONCE, Stop date: 04/21/17 10:41:00 CDT ceFAZolin Route: IV, Inactive (ANES) Drug form: 2016 [facility] INJ, ONCE, Stop date: 04/21/17 10:41:00 CDT lidocaine Route: IV, Inactive (ANES) Drug form: 2016 [facility] INJ, ONCE, Stop date: 04/21/17 10:41:00 CDT propofol (ANES) Route: IV, Inactive Drug form: 2016 [facility] INJ, ONCE, Stop date: 04/21/17 10:41:00 CDT fentaNYL (ANES) Route: IV, Inactive Drug form: 2016 [facility] INJ, ONCE, Stop date: 04/21/17 10:41:00 CDT acetaminophen Route: IV, Inactive (ANES) (ANES) Drug form: 2016 [facility] INJ, Start date: 04/21/17 10:35:00 CDT, Stop date: 04/21/17 11:35:00 CDT sodium chloride Route: IV, Inactive 0.9% 500 ml INJ Total Volume: 2016 [facility] (ANES) 500, Start date: 04/21/17 10:08:00 CDT, Stop date: 04/21/17 11:08:00 CDT Calcium 1,000 mL, Inactive Chloride 0.0014 Rate: 25 2016 [facility] MEQ/ML / ml/hr, Infuse Potassium over: 40 hr, Chloride 0.004 Route: IV, MEQ/ML / Sodium Dosing Weight Chloride 0.103 74.545 kg, MEQ/ML / Sodium Total Volume: Lactate 0.028 1,000, Start MEQ/ML date: Injectable 04/21/17 Solution 9:53:00 CDT, Duration: 30 day, Stop date: 05/21/17 9:52:00 CDT Ocuvite 1 tab, PO, Active Daily, 0 2016 [facility] Refill(s) Furosemide 40 40 mg=1 tab, Active MG Oral Tablet PO, Daily, 0 2016 [facility] Refill(s) Vitamin D3 2000 2,000 Active intl units oral IntlUnit=1 2016 [facility] tablet tab, PO, Daily, 0 Refill(s) Albuterol 0.833 3 mL, Route: Inactive MG/ML / NEB, Drug 2016 [facility] Ipratropium Form: SOLN, [place] 0.167 Dosing Weight MG/ML Inhalant 76.364, kg, Solution ONCE, STAT, Start date: 02/23/17 9:22:00 CDT, Stop date: 02/23/17 9:22:00 CDTNotes: (Same as: Nolbertob) Sodium Chloride 500 mL, Rate: Inactive 0.154 MEQ/ML 25 ml/hr, 2016 [facility] Injectable Infuse over: Solution 20 hr, Route: IV, Dosing Weight 76.364 kg, Total Volume: 500, Start date: 02/23/17 9:22:00 CDT, Duration: 1 day, Stop date: 02/24/17 9:21:00 CDT Lasix 20 mg, 1 tab, No Longer Route: PO, Active 2014 [facility] Drug form: TAB, Daily, Dosing Weight 73.295, kg, Start date: 08/08/15 9:00:00, Duration: 30 day, Stop date: 09/06/15 9:00:00Notes: (Same as: Lasix) May cause GI upset. Give with food or milk. Spironolactone 12.5 mg, 0.5 No Longer tab, Route: Active 2014 [facility] PO, Drug form: TAB, Daily, Dosing Weight [...] 20 mL, Route: Inactive IVP, Start 2014 [facility] date: 08/07/15 12:19:00, Duration: 30 day, Stop date: 09/06/15 12:18:00, PRN Line FlushNotes: preservative free. sodium chloride 10 mL, Route: Inactive IVP, Start 2014 [facility] date: 08/07/15 12:18:00, Duration: 30 day, Stop date: 09/06/15 12:17:00, PRN Line FlushNotes: preservative free. ciprofloxacin 500 mg=1 tab, Active 500 mg oral PO, Q12H, X 2014 [facility] tablet 10 day, # 20 tab, 0 Refill(s) Cephalexin 500 500 mg=1 cap, Inactive MG Oral Capsule PO, TID, X 10 2014 [Keflex] day, # 30 cap, 0 Refill(s) Docusate Sodium 100 mg, 1 Inactive 100 MG Oral cap, Route: 2014 [facility] Capsule PO, Drug [Colace] form: CAP, Daily, Dosing Weight 73.295, kg, PRN Constipation, Start date: 08/07/15 11:09:00, Duration: 30 day, Stop date: 09/06/15 11:08:00Notes : (Same as: Colace) (Do Not Crush) Ibuprofen 400 mg, 1 Inactive tab, Route: 2014 [facility] PO, Drug form: TAB, ONCE, Dosing Weight 73.295, kg, PRN Headache 1-5, Start date: 08/06/15 21:10:00, Stop date: 08/06/15 21:10:00Notes : (Same as: Motrin) "Do Not Crush" Give with food. Lasix PO, Daily, 0 Active Refill(s) 2014 [facility] Rocephin 1 gm, Route: No Longer IVPB, Active 2014 [facility] [id number], Dosing Weight 73.295, kg, Start date: 08/06/15 9:00:00, Duration: 30 day, Stop date: 09/04/15 9:00:00Notes: (Same As: Rocephin). Use with 100 mL NS and infuse over 30 min MEDICATION WASTE Product Size: 1000 mg Product Wasted: ___ mg Lactulose 10 gm, 15 ml, Inactive Route: PO, 2014 [facility] Drug Form: SYRP, Dosing Weight 73.295, kg, ONCE, Start date: 08/06/15 3:49:00, Stop date: 08/06/15 3:49:00Notes: (Same as:Chronulac) Ondansetron 4 mg, 2 mL, No Longer Route: IVP, Active 2014 [facility] Drug form: INJ, Q6H, Dosing Weight 73.636, kg, PRN Nausea & Vomiting, Start date: 08/06/15 3:29:00, Duration: 30 day, Stop date: 09/05/15 3:28:00Notes: (Same as: Clint) MEDICATION WASTE Product Size: 4 mg Product Wasted: ___ mg Acetaminophen 325 mg, 1 No Longer tab, Route: Active 2014 [facility] PO, Drug form: TAB, Q4H, Dosing Weight 73.636, kg, PRN Pain Score 4-6, Start date: 08/06/15 3:29:00, Duration: 30 day, Stop date: 09/05/15 3:28:00Notes: Do not exceed 4 gm/day. (Same as: Tylenol) Morphine 2 mg, Route: No Longer IVP, Q4H, Active 2014 [facility] Dosing Weight 73.636, kg, PRN Pain Score 7-10, Start date: 08/06/15 3:29:00, Duration: 30 day, Stop date: 09/05/15 3:28:00 Aspirin 325 mg, 1 No Longer tab, Route: Active 2014 [facility] PO, Drug form: ECTAB, Q24H, Dosing Weight 73.636, kg, Start date: 08/06/15 3:00:00, Duration: 30 day, Stop date: 09/04/15 3:00:00Notes: (Do Not Crush) Do not crush or chew. Saline Flush 10 mL, Route: No Longer 0.9% IVP, Drug Active 2014 [facility] Form: INJ, Dosing Weight 75.455, kg, PRN, PRN Line Flush, Start date: 08/05/15 19:05:00, Duration: 30 day, Stop date: 09/04/15 19:04:00Notes : (Same as: BD Posiflush) Docusate Sodium 100 mg=1 cap, Active 100 MG Oral PO, Daily, as 2013 [facility] Capsule needed for [Colace] constipation, # 20 cap, 0 Refill(s) gabapentin 300 300 mg=1 cap, Active MG Oral Capsule PO, BID, # 90 2013 [facility] cap, 0 Refill(s) tramadol 50 mg=1 tab, Active hydrochloride PO, Q6H, 2013 [facility] 50 MG Oral Pain, # 40 Tablet tab, 0 Refill(s) Ibuprofen 400 400 mg, 1 No Longer MG Oral Tablet tab, Route: Active 2013 [facility] PO, Drug form: TAB, Q6H, Dosing Weight [...] 0.5 No Longer mL, Route: Active 2013 [facility] IV, Drug form: INJ, Q2H, PRN Pain, Start date: 04/18/14 17:55:00, Duration: 30 day, Stop date: 05/18/14 17:54:00 Ibuprofen 600 mg, Inactive Route: PO, 2013 Q6H, Dosing Weight 64.545, kg, PRN as needed for pain, Start date: 04/18/14 17:02:00, Duration: 30 day, Stop date: 05/18/14 17:01:00 Docusate Sodium 100 mg, 1 No Longer 100 MG Oral cap, Route: Active 2013 [facility] Capsule PO, Drug form: CAP, BID, Dosing Weight 64.545, kg, Start date: 04/18/14 17:00:00, Duration: 30 day, Stop date: 05/18/14 9:00:00Notes: (Same as: Colace) (Do Not Crush) Ofirmev 1,000 mg, 100 Inactive mL, Route: 2013 [facility] IV, Drug form: INJ, Q6H, Dosing Weight 65.909, kg, for > or=50 kg, Start date: 04/18/14 12:00:00, Duration: 1 day, Stop date: 04/19/14 6:00:00Notes: Infuse over 15 minutes Do not exceed 4gm/day of acetaminophen Saline Flush 5 ml, Route: No Longer 0.9% IVP, Drug Active 2013 [facility] Form: INJ, Dosing Weight 64.545, kg, PRN, PRN Line Flush, Start date: 04/18/14 10:16:00, Duration: 30 day, Stop date: 05/18/14 10:15:00Notes : Same as: BD Posiflush Sterile Sodium Chloride 1,000 mL, No Longer 0.154 MEQ/ML Rate: 125 Active 2013 [facility] Injectable ml/hr, Infuse Solution over: 8 hr, Route: IV, Dosing Weight 64.545 kg, Total Volume: 1,000, Start date: 04/18/14 10:16:00, Duration: 30 day, Stop date: 05/18/14 10:15:00 Ondansetron 4 mg, 2 mL, No Longer Route: IVP, Active 2013 [facility] Drug form: INJ, Q6H, Dosing Weight 64.545, kg, PRN Nausea & Vomiting, Start date: 04/18/14 10:16:00, Duration: 30 day, Stop date: 05/18/14 10:15:00Notes : (Same as: Zofran) Acetaminophen 1 tab, Route: Inactive 325 MG / PO, Drug 2013 [facility] Hydrocodone Form: TAB, Bitartrate 5 MG Dosing Weight Oral Tablet 65.909, kg, Q4H, PRN Pain Score 1-3, Start date: 04/18/14 10:16:00, Duration: 30 day, Stop date: 05/18/14 10:15:00Notes : (Same as: [place] 325/5) Do not exceed 4gm/day of acetaminophen . Cefoxitin 2 gm, Route: No Longer IVPB, ONCALL, Active 2013 [facility] Dosing Weight 64.545, kg, Start date: 04/13/14 13:00:00, Duration: 30 day, Stop date: 05/13/14 12:59:00Notes : (Same As: Mefoxin) Naloxone 0.1 mg, Inactive Route: IVP, 2013 [facility] Q2MIN, Dosing Weight 65.909, kg, PRN Narcotic Reversal, Start date: 03/13/14 11:16:00, Duration: 4 doses or times, Stop date: Limited # of times Flumazenil 0.2 mg, Inactive Route: IVP, 2013 [facility] PRN, Dosing Weight 65.909, kg, PRN Other -See Comment, Start date: 03/13/14 11:16:00, Duration: 1 doses or times, Stop date: Limited # of times Sodium Chloride 1,000 mL, Inactive 0.154 MEQ/ML Rate: 25 2013 [facility] Injectable ml/hr, Infuse Solution over: 40 hr, [...] 1 tablet Orally Active 20 mg Orally [facility] 2.16.840.1 daily .652739.4. [id number] 68 Gabapentin 1 capsule Orally Active 300 MG Orally Jus 2.16.840.1 twice a day .128517.4. (bid) 68 B-12 Unknown Sublingual Active 2500 MCG Jus 2.16.840.1 Sublingual .111732.4. 68 Ocuvite 1 tablet Orally Active Orally daily Jus 2.16.840.1 .763405.4. 68 Lasix 1 tablet Orally Active 40 MG Orally Jus 2.16.840.1 Once a day .514564.4. 68 Ciprofloxacin 5 ml Orally Active 500 MG/5ML Jus 2.840.1 (10%) Orally .426923.4. Twice a day 68 Spironolactone 1 tablet Orally Active 25 MG Orally Jus 2.16.840.1 daily .142853.4. 68 Caltrate 600+D 1 tablet with Orally Active 600-400 Jus 2.840.1 food MG-UNIT .483443.4. Orally Once a day Allergies, Adverse Reactions, Alerts Substance Category Reaction Severity Reaction Status Date Comments Source type Reported MORPHINE Drug MORPHINE allergy 2 [facility] morphine<s Assertion Drug Active Data up>1</sup> allergy 2 migrated [place] from [facility] on 12/27/14. Originally documented as MORPHINE. Hallucinatio ns Adhesive Adverse rash Adverse Active 2.16.840. Tape Reaction Reaction 5 1.824180. 4.391 Morphine Adverse Info Not Adverse Active 2.16.840. Sulfate Reaction Available Reaction 5 1.578223. 4.391 morphine Assertion Drug Active allergy [place] [...] Lymphocytes 36.1 % 20.0 - 08/03 40.0 [facility] HEMATOLOGY Eosinophils 1.2 % 0.0 - 4.0 08/03 [facility] HEMATOLOGY Monocytes 5.4 % 2.0 - 12.0 08/03 [facility] HEMATOLOGY Basophils 0.6 % 0.0 - 1.0 08/03 [facility] HEMATOLOGY Segs 56.7 % 45.0 - 08/03 75.0 /2016 [facility] HEMATOLOGY Monocytes # 0.2 K/CMM 0.0 - 0.8 08/03 [facility] HEMATOLOGY Lymphocytes 1.0 K/CMM 1.0 - 5.5 08/03 [facility] HEMATOLOGY Segs-Bands # 1.6 K/CMM 1.5 - 8.1 08/03 [facility] HEMATOLOGY MPV 9.2 fL 7.4 - 10.4 08/03 [facility] HEMATOLOGY RDW 16.5 % 11.5 - 08/03 14.5 [facility] HEMATOLOGY Platelet 62 K/CMM 133 - 450 08/03 [facility] HEMATOLOGY Hct 39.3 % 36.0 - 08/03 MH 48.0 /2017 [facility] HEMATOLOGY Hgb 13.2 g/dL 12.0 - 08/03 MH 16.0 /2016 [facility] HEMATOLOGY RBC 4.14 M/CMM 4.20 - 08/03 MH 5.40 /2016 [facility] HEMATOLOGY MCH 31.9 pg 27.0 - 08/03 MH 31.0 /2016 [facility] HEMATOLOGY MCV 95.1 fL 80.0 - 08/03 MH 98.0 /2016 [facility] MCHC 33.6 g/dL 32.0 - 08/03 MH 36.0 /2016 [facility] HEMATOLOGY WBC 2.8 K/CMM 3.7 - 10.4 08/03 MH [facility] Renal Renal Patient Name: EDGARD DÍAZ 08/03 - pyelogram pyelogram /2016 - [facility] retrograde retrograde : 1930; Age: 86 years Female DX DX MR: [id number] Read by: Thelma Chopra MD Dictated Date/time: 08/03/17 18:54 Study: Renal pyelogram retrograde DX 08/03/2017 3:09 PM 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 MACHINE 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/TENDER Electronically Signed by: Thelma Chopra MD 08/03/17 [...] is not recommended in the following populations: [facility] 3m2 Individuals with unstable creatinine concentrations, including [...] Globulin 4.6 g/dL 2.7 - 4.2 08/02 [facility] HEMATOLOGY RBC 3.92 M/CMM 4.20 - 12/ MH 5.40 [facility] HEMATOLOGY WBC 5.1 K/CMM 3.7 - 10.4 08/02 [facility] HEMATOLOGY Hgb 12.3 g/dL 12.0 - 08/02 16.0 /2016 [facility] HEMATOLOGY RDW 15.9 % 11.5 - 12/ MH 14.5 /2016 [facility] MCHC 33.4 g/dL 32.0 - 12/ MH 36.0 /2016 [facility] MCH 31.3 pg 27.0 - 12/ MH 31.0 [facility] Hct 36.7 % 36.0 - 12/ MH 48.0 /2016 [facility] HEMATOLOGY MCV 93.6 fL 80.0 - 12/ MH 98.0 /2016 [facility] HEMATOLOGY MPV 8.9 fL 7.4 - 10.4 12/ /2016 [facility] Platelet 82 K/CMM 133 - 450 12/ [facility] HEMATOLOGY INR 1.49 0.85 - 08/02 MH 1.17 /2016 [facility] HEMATOLOGY PT 18.1 s 12.0 - 08/02 14.7 [facility] PTT 33.0 s 22.9 - 08/02 35.8 [facility] HEMATOLOGY Segs-Bands # 2.6 K/CMM 1.5 - 8.1 08/02 [facility] HEMATOLOGY Basophils 0.8 % 0.0 - 1.0 / /2016 [facility] HEMATOLOGY Lymphocytes 1.8 K/CMM 1.0 - 5.5 / MH # /2017 [facility] HEMATOLOGY Eosinophils 0.2 K/CMM 0.0 - 0.5 / MH # /2016 [facility] HEMATOLOGY Monocytes # 0.5 K/CMM 0.0 - 0.8 08/02 [facility] HEMATOLOGY Segs 51.3 % 45.0 - 12/ MH 75.0 [facility] HEMATOLOGY Monocytes 10.3 % 2.0 - 12.0 / [facility] HEMATOLOGY Lymphocytes 34.4 % 20.0 - 12/ MH 40.0 /2016 [facility] HEMATOLOGY Eosinophils 3.2 % 0.0 - 4.0 08/02 [facility] ELECTROLYT AGAP 14.3 meq/L 10.0 - 04/13 ES 20.0 /2016 [facility] ELECTROLYT eGFR 46 04/13 Result Comment: The [...] is not recommended in the following populations: [facility] 3m2 Individuals with unstable creatinine concentrations, including [...] 0.50 - 04/13 ES Lvl 1.40 /2016 [facility] ELECTROLYT BUN 13 mg/dL 7 - 22 04/13 [facility] ELECTROLYT Potassium 4.3 meq/L 3.5 - 5.1 04/13 ES Lvl /2016 [facility] ELECTROLYT Sodium Lvl 142 meq/L 135 - 145 04/13 [facility] ELECTROLYT Chloride Lvl 107 meq/L 95 - 109 04/13 [facility] ELECTROLYT CO2 25 meq/L 24 - 32 04/13 [facility] ELECTROLYT Calcium Lvl 9.3 mg/dL 8.5 - 10.5 04/13 [facility] ELECTROLYT Glucose Lvl 101 mg/dL 70 - 99 04/13 [facility] HEMATOLOGY Eosinophils 0.2 K/CMM 0.0 - 0.5 04/13 MH # /2017 [facility] HEMATOLOGY Basophils # 0.1 K/CMM 0.0 - 0.2 04/13 [facility] HEMATOLOGY Monocytes # 0.6 K/CMM 0.0 - 0.8 04/13 [facility] HEMATOLOGY Lymphocytes 1.8 K/CMM 1.0 - 5.5 04/13 [facility] HEMATOLOGY Segs-Bands # 3.0 K/CMM 1.5 - 8.1 04/13 [facility] HEMATOLOGY Basophils 0.9 % 0.0 - 1.0 04/13 [facility] HEMATOLOGY Monocytes 10.4 % 2.0 - 12.0 04/13 [facility] HEMATOLOGY Eosinophils 3.0 % 0.0 - 4.0 04/13 [facility] HEMATOLOGY Segs 53.7 % 45.0 - 04/13 75.0 /2017 [facility] HEMATOLOGY Lymphocytes 32.0 % 20.0 - 04/13 MH 40.0 /2016 [facility] HEMATOLOGY INR 1.27 0.85 - 04/13 MH 1.17 /2016 [facility] HEMATOLOGY PT 16.2 s 12.0 - 04/13 14.7 [facility] MPV 8.9 fL 7.4 - 10.4 04/13 [facility] RDW 15.4 % 11.5 - 04/13 14.5 [facility] Platelet 79 K/CMM 133 - 450 04/13 [facility] MCH 32.2 pg 27.0 - 08 31.0 /2016 [facility] MCHC 33.3 g/dL 32.0 - 04/13 36.0 /2016 [facility] RBC 4.00 M/CMM 4.20 - 04/13 5.40 /2016 [facility] MCV 96.5 fL 80.0 - 04/13 98.0 /2016 [facility] Hct 38.6 % 36.0 - 04/13 48.0 [facility] Hgb 12.9 g/dL 12.0 - 04/13 16.0 [facility] WBC 5.6 K/CMM 3.7 - 10.4 04/13 [facility] PTT 28.2 s 22.9 - 04/13 35.8 [facility] PET CT PET CT Patient Name: EDGARD DÍAZ 03/04 - Colorectal Colorectal /2016 - [facility] [place] restaging : 1930; Age: 86 years y/o Female restaging MR: [id number] Read by: Williams Reynolds MD Dictated Date/time: [...] urinary bladder suspicious for chronic cystitis. SL: [id number] ELECTROLYT AGAP 7.1 meq/L 10.0 - 02/16 ES 20.0 [facility] ELECTROLYT eGFR 54 02/16 Result Comment: The eGFR is calculated using the CKD-EPI formula. In most young, healthy individuals the eGFR will be >90 mL/ min/1.73m2. The eGFR declines with age. An eGFR of 60-89 may be normal in [facility] mL/min/1.7 some populations, particularly the elderly, for whom the CKD-EPI formula has not been extensively validated. Use of the eGFR is not recommended in the following populations: [facility] 3m2 Individuals with unstable creatinine concentrations, including [...] 8.8 mg/dL 8.5 - 10.5 02/16 ES [facility] ELECTROLYT Chloride Lvl 107 meq/L 95 - 109 02/16 ES [facility] ELECTROLYT CO2 30 meq/L 24 - 32 02/16 ES [facility] ELECTROLYT Potassium 4.1 meq/L 3.5 - 5.1 02/16 ES Lvl [facility] ELECTROLYT Glucose Lvl 75 mg/dL 70 - 99 02/16 ES [facility] ELECTROLYT BUN 11 mg/dL 7 - 22 02/16 ES [facility] ELECTROLYT Creatinine 0.95 mg/dL 0.50 - 02/16 ES Lvl 1.40 /2016 [facility] ELECTROLYT Sodium Lvl 140 meq/L 135 - 145 02/16 [facility] HEMATOLOGY Hgb 13.0 g/dL 12.0 - 02/16 MH 16. [facility] HEMATOLOGY Hct 38.8 % 36.0 - 02/16 MH 48.0 [facility] TUMOR CEA 11.8 ng/mL 0.0 - 3.0 02/16 [facility] CHEM PANEL A/G Ratio 0.6 0.7 - 1.6 08/07 [facility] CHEM PANEL AGAP 11.9 meq/L 10.0 - 08/07 MH 20. [facility] CHEM PANEL Globulin 4.1 g/dL 2.0 - 4.0 08/07 [facility] CHEM PANEL B/C Ratio 15 6 - 25 08/07 [facility] CHEM PANEL eGFR 61 08/07 Result Comment: [...] is not recommended in the following populations: [facility] 3m2 Individuals with unstable creatinine concentrations, including [...] CO2 25 meq/L 24 - 32 08/07 [facility] CHEM PANEL Chloride Lvl 106 meq/L 95 - 109 08/07 [facility] CHEM PANEL Calcium Lvl 8.5 mg/dL 8.5 - 10.5 08/07 [facility] CHEM PANEL Albumin Lvl 2.5 g/dL 3.5 - 5.0 08/07 [facility] CHEM PANEL Total 6.6 g/dL 6.4 - 8.4 08/07 [facility] CHEM PANEL ALT 20 unit/L 0 - 65 08/07 [facility] CHEM PANEL AST 26 unit/L 0 - 37 08/07 [facility] CHEM PANEL Alk Phos 109 unit/L 39 - 136 08/07 [facility] CHEM PANEL Bili Total 1.2 mg/dL 0.2 - 1.3 08/07 [facility] CHEM PANEL Potassium 3.9 meq/L 3.5 - 5.1 08/07 Lvl [facility] CHEM PANEL Sodium Lvl 139 meq/L 135 - 145 08/07 [facility] CHEM PANEL Creatinine 0.88 mg/dL 0.50 - 12 MH Lvl 1.40 [facility] CHEM PANEL Glucose Lvl 120 mg/dL 70 - 99 08/07 [facility] CHEM PANEL BUN 13 mg/dL 7 - 22 08/07 [facility] CHEM PANEL Magnesium 1.9 mg/dL 1.8 - 2.4 08/07 l /2014 [facility] HEMATOLOGY MPV 8.8 fL 7.4 - 10.4 08/07 [facility] HEMATOLOGY Platelet 54 K/CMM 133 - 450 08/07 [facility] HEMATOLOGY MCHC 33.1 g/dL 32.0 - 08/07 36.0 /2014 [facility] HEMATOLOGY RDW 14.7 % 11.5 - 08/07 MH 14.5 [facility] HEMATOLOGY MCV 97.0 fL 80.0 - 08/07 98.0 /2014 [facility] HEMATOLOGY MCH 32.1 pg 27.0 - 08/07 MH 31.0 /2014 [facility] HEMATOLOGY RBC 3.54 M/CMM 4.20 - 08/07 MH 5.40 /2014 [facility] HEMATOLOGY WBC 3.6 K/CMM 3.7 - 10.4 08/07 [facility] HEMATOLOGY Hct 34.3 % 36.0 - 08/07 48.0 /2014 [facility] HEMATOLOGY Hgb 11.4 g/dL 12.0 - 08/07 16.0 [facility] HEMATOLOGY Monocytes # 0.2 K/CMM 0.0 - 0.8 08/07 [facility] HEMATOLOGY Eosinophils 1.3 % 0.0 - 4.0 08/07 [facility] HEMATOLOGY Monocytes 7.0 % 2.0 - 12.0 08/07 [facility] HEMATOLOGY Lymphocytes 1.1 K/CMM 1.0 - 5.5 08/07 /2014 [facility] HEMATOLOGY Basophils 0.6 % 0.0 - 1.0 08/07 [facility] HEMATOLOGY Segs-Bands # 2.2 K/CMM 1.5 - 8.1 08/07 [facility] HEMATOLOGY Segs 61.3 % 45.0 - 08/07 75.0 [facility] HEMATOLOGY Lymphocytes 29.8 % 20.0 - 08/07 MH 40.0 [facility] URINE AND UA Nitrite Negative Negative 08/06 [facility]OL [facility] (08/06/15 3:01 PM) URINE AND UA Leuk Est Large Negative 08/06 *ABN* (08/06/15 3:01 PM) URINE AND UA Blood Moderate Negative 08/06 [facility] *ABN* (08/06/15 3:01 PM) URINE AND UA Bili Negative Negative 08/06 [facility] *NA* (08/06/15 3:01 PM) URINE AND UA >=8.0 0.1 - 1.0 08/06 [facility] Urobilinogen [facility] *ABN* (08/06/15 3:01 PM) URINE AND UA Color Yellow Yellow 08/06 STOOL [facility] *NA* (08/06/15 3:01 PM) URINE AND UA Turbidity Cloudy Clear 08/06 [facility] *ABN* (08/06/15 3:01 PM) URINE AND UA Glucose Negative Negative 08/06 [facility] (08/06/15 3:01 PM) URINE AND UA Ketones Negative Negative 08/06 [facility] *NA* (08/06/15 3:01 PM) URINE AND UA Spec Grav 1.015 <=1.030 08/06 [facility] URINE AND UA pH 6.5 5.0 - 8.0 08/06 STOOL [facility] URINE AND UA Protein 30 mg/dL Negative 08/06 [facility] mg/dL [facility] URINE AND UA Sq Epi Few /LPF Few /LPF 08/06 STOOL [facility] URINE AND UA [place] Yeast Many /HPF None Seen 08/06 [facility] /HPF /2014 [facility] URINE AND UA WBC null 0 - 5 08/06 URINE AND UA RBC 17 /HPF 0 - 2 08/06 [facility] Carotid Carotid CAROTID DOPPLER 08/06 - artery artery /2014 - [facility] Doppler Doppler bilat US bilat US Read [...] Occasional None Seen 08/06 [facility] /HPF /HPF [facility] URINE AND UA Mucus Few /LPF None Seen 08/06 [facility]OOL /LPF [facility] URINE AND UA Bacteria Moderate None Seen 08/06 [facility] /HPF /HPF /2014 URINE AND UA WBC null 0 - 5 08/06 [facility] URINE AND UA Sq Epi Moderate Few /LPF 08/06 STOOL /LPF URINE AND UA RBC 13 /HPF 0 - 2 08/06 STOOL [facility] URINE AND UA Nitrite Negative Negative 08/06 [...] UA Spec Grav 1.015 <=1.030 08/06 STOOL [facility] URINE AND UA Turbidity Slight Cloudy Clear 08/06 STOOL [facility] (08/05/15 10:40 PM) URINE AND UA Color Yellow Yellow 08/06 STOOL [facility] *NA* (08/05/15 10:40 PM) URINE AND UA Protein Negative Negative 08/06 STOOL [facility] (08/05/15 10:40 PM) URINE AND UA pH 6.0 5.0 - 8.0 08/06 STOOL [facility] CARDIAC CK MB 5.3 ng/mL 0.5 - 3.6 08/06 ENZYMES [facility] CARDIAC Total CK 116 unit/L 12 - 191 08/06 ENZYMES [facility] CARDIAC BNP 45 pg/mL <=100 08/06 ENZYMES pg/mL [facility] CARDIAC Troponin-I null 0.00 - 08/06 ENZYMES 0.40 [facility] CARDIAC CK MB Index 4.6 0.0 - 2.5 08/06 ENZYMES [facility] CHEM PANEL Ammonia 47.0 <=45.0 08/06 umol/L uMol/L [facility] CHEM PANEL Alk Phos 118 unit/L 39 - 136 08/06 [facility] CHEM PANEL Total 7.4 g/dL 6.4 - 8.4 08/06 Protein [facility] CHEM PANEL Calcium Lvl 8.5 mg/dL 8.5 - 10.5 08/06 [facility] CHEM PANEL eGFR 67 08/06 Result Comment: [...] is not recommended in the following populations: [facility] 3m2 Individuals with unstable creatinine concentrations, including [...] Total 1.0 mg/dL 0.2 - 1.3 08/06 [facility] CHEM PANEL A/G Ratio 0.6 0.7 - 1.6 08/06 [facility] CHEM PANEL ALT 21 unit/L 0 - 65 08/06 [facility] CHEM PANEL Albumin Lvl 2.7 g/dL 3.5 - 5.0 08/06 [facility] CHEM PANEL AST 27 unit/L 0 - 37 08/06 [facility] CHEM PANEL AGAP 11.5 meq/L 10.0 - 12 MH 20.0 [facility] CHEM PANEL Globulin 4.7 g/dL 2.0 - 4.0 08/06 [facility] CHEM PANEL B/C Ratio 14 6 - 25 08/06 [facility] CHEM PANEL BUN 11 mg/dL 7 - 22 08/06 [facility] CHEM PANEL Chloride Lvl 106 meq/L 95 - 109 08/06 [facility] CHEM PANEL Creatinine 0.81 mg/dL 0.50 - 08/06 Lvl 1.40 /2014 [facility] CHEM PANEL Potassium 3.5 meq/L 3.5 - 5.1 08/06 Lvl /2014 [facility] CHEM PANEL Sodium Lvl 140 meq/L 135 - 145 08/06 [facility] CHEM PANEL CO2 26 meq/L 24 - 32 08/06 [facility] CHEM PANEL Glucose Lvl 109 mg/dL 70 - 99 08/06 [facility] HEMATOLOGY MPV 9.1 fL 7.4 - 10.4 08/06 [facility] HEMATOLOGY RDW 15.4 % 11.5 - 08/06 14. [facility] HEMATOLOGY Platelet 70 K/CMM 133 - 450 08/06 [facility] HEMATOLOGY MCHC 33.1 g/dL 32.0 - 12 36.0 [facility] HEMATOLOGY MCH 32.1 pg 27.0 - 12 MH 31.0 [facility] HEMATOLOGY MCV 97.2 fL 80.0 - 08/06 98.0 [facility] HEMATOLOGY Hct 36.5 % 36.0 - 12 MH 48.0 [facility] HEMATOLOGY Hgb 12.1 g/dL 12.0 - 12 MH 16.0 [facility] HEMATOLOGY RBC 3.76 M/CMM 4.20 - 12 [...] is not recommended in the following populations: [facility] 3m2 Individuals with unstable creatinine concentrations, including [...] Total 0.9 mg/dL 0.2 - 1.3 08/05 [facility] CHEM PANEL Alk Phos 126 unit/L 39 - 136 08/05 [facility] CHEM PANEL Albumin Lvl 2.7 g/dL 3.5 - 5.0 08/05 [facility] CHEM PANEL ALT 22 unit/L 0 - 65 08/05 [facility] CHEM PANEL AST 27 unit/L 0 - 37 08/05 [facility] CHEM PANEL AGAP 11.8 meq/L 10.0 - 08/05 20.0 [facility] CHEM PANEL B/C Ratio 14 6 - 25 08/05 [facility] CHEM PANEL A/G Ratio 0.6 0.7 - 1.6 08/05 [facility] CHEM PANEL Globulin 4.6 g/dL 2.0 - 4.0 08/05 [facility] HEMATOLOGY MPV 8.9 fL 7.4 - 10.4 08/05 [facility] HEMATOLOGY RDW 15.3 % 11.5 - 08/05 MH 14. [facility] HEMATOLOGY Platelet 69 K/CMM 133 - 450 08/05 [facility] HEMATOLOGY Hct 37.6 % 36.0 - 08/05 MH 48.0 [facility] HEMATOLOGY MCHC 32.8 g/dL 32.0 - 08/05 MH 36.0 [facility] HEMATOLOGY Hgb 12.4 g/dL 12.0 - 08/05 MH 16.0 [facility] HEMATOLOGY MCV 96.5 fL 80.0 - 08/05 MH 98.0 [facility] MCH 31.7 pg 27.0 - 08/05 MH 31.0 /2014 [facility] HEMATOLOGY WBC 6.2 K/CMM 3.7 - 10.4 08/05 /2014 [facility] HEMATOLOGY RBC 3.90 M/CMM 4.20 - 08/05 5.40 /2015 [facility] HEMATOLOGY Monocytes # 0.5 K/CMM 0.0 - 0.8 08/05 /2014 [facility] HEMATOLOGY Basophils 0.6 % 0.0 - 1.0 08/05 /2014 [facility] HEMATOLOGY Segs-Bands # 4.2 K/CMM 1.5 - 8.1 08/05 /2014 [facility] HEMATOLOGY Eosinophils 0.1 K/CMM 0.0 - 0.5 08/05 # /2015 [facility] HEMATOLOGY Lymphocytes 1.4 K/CMM 1.0 - 5.5 08/05 # /2015 [facility] HEMATOLOGY Lymphocytes 22.3 % 20.0 - 08/05 40.0 /2014 [facility] HEMATOLOGY Monocytes 7.3 % 2.0 - 12.0 08/05 /2014 [facility] HEMATOLOGY Eosinophils 1.4 % 0.0 - 4.0 08/05 [facility] HEMATOLOGY Segs 68.4 % 45.0 - 08/05 75.0 /2014 [facility] Chest Chest 1view Chest one view: 08/05 [...] 08/05 - contrast contrast CT /2014 - [facility] CT REASON FOR EXAM: pt from IV [...] Basophils 0.4 % 0.0 - 1.0 04/19 [facility] HEMATOLOGY Monocytes # 0.9 K/CMM 0.0 - 0.8 04/19 [facility] HEMATOLOGY Lymphocytes 1.0 K/CMM 1.0 - 5.5 04/19 MH # /2013 [facility] HEMATOLOGY Segs-Bands # 4.2 K/CMM 1.5 - 8.1 04/19 [facility] HEMATOLOGY Eosinophils 0.2 K/CMM 0.0 - 0.5 04/19 MH # /2013 [facility] HEMATOLOGY Eosinophils 2.7 % 0.0 - 4.0 04/19 [facility] HEMATOLOGY Monocytes 13.7 % 2.0 - 12.0 04/19 [facility] Lymphocytes 16.6 % 20.0 - 04/19 MH 40.0 /2013 [facility] HEMATOLOGY Segs 66.6 % 45.0 - 04/19 MH 75.0 /2013 [facility] MCHC 33.3 g/dL 32.0 - 04/19 MH 36.0 /2013 [facility] HEMATOLOGY RDW 15.2 % 11.5 - 04/19 MH 14.5 /2013 [facility] HEMATOLOGY MCH 32.3 pg 27.0 - 04/19 MH 31.0 /2013 [facility] HEMATOLOGY MCV 96.9 fL 80.0 - 04/19 MH 98.0 /2013 [facility] HEMATOLOGY Hct 30.1 % 36.0 - 04/19 MH 48.0 [facility] Platelet 67 K/CMM 133 - 450 04/19 [facility] MPV 8.4 fL 7.4 - 10.4 04/19 [facility] Hgb 10.0 g/dL 12.0 - 04/19 MH 16.0 [facility] HEMATOLOGY RBC 3.11 M/CMM 4.20 - 04/19 MH 5.40 /2013 [facility] HEMATOLOGY WBC 6.3 K/CMM 3.7 - 10.4 04/19 [facility] Chest 2 Chest 2 EXAM: Chest 2 views 04/19 - views views /2013 - [facility] DATE: Apr 19, 2014 09:48:02 AM Read [...] Globulin 4.8 g/dL 2.0 - 4.0 04/13 [facility] CHEM PANEL A/G Ratio 0.6 0.7 - 1.6 04/13 [facility] CHEM PANEL AGAP 13.4 meq/L 10.0 - 04/13 20.0 [facility] CHEM PANEL B/C Ratio 9 6 - 25 04/13 [facility] CHEM PANEL eGFR 59 04/13 1Result Comment: [...] is not recommended in the following populations: [facility] 3m2 Individuals with unstable creatinine concentrations, including [...] values reflect the clinical guidelines of the [place] [employer]. [facility] CHEM PANEL BUN 8 [...] Total 1.3 mg/dL 0.2 - 1.3 04/13 [facility] CHEM PANEL Total 7.7 g/dL 6.4 - 8.4 04/13 [facility] CHEM PANEL Albumin Lvl 2.9 g/dL 3.5 - 5.0 04/13 [facility] HEMATOLOGY MCH 32.1 pg 27.0 - 04/13 31.0 [facility] HEMATOLOGY RDW 14.6 % 11.5 - 04/13 14.5 [facility] HEMATOLOGY MCHC 33.1 g/dL 32.0 - 04/13 36.0 /2013 [facility] HEMATOLOGY Platelet 76 K/CMM 133 - 450 04/13 [facility] HEMATOLOGY RBC 3.79 M/CMM 4.20 - 04/13 5.40 /2013 [facility] HEMATOLOGY Hct 36.7 % 36.0 - 04/13 48.0 /2013 [facility] HEMATOLOGY MCV 97.0 fL 81.0 - 04/13 99.0 /2013 [facility] HEMATOLOGY Hgb 12.1 g/dL 12.0 - 04/13 16.0 [facility] HEMATOLOGY WBC 4.6 K/CMM 3.7 - 10.4 04/13 [facility] HEMATOLOGY MPV 8.9 fL 7.4 - 10.4 04/13 [facility] HEMATOLOGY Segs 52.6 % 45.0 - 04/13 75.0 /2013 [facility] HEMATOLOGY Monocytes # 0.6 K/CMM 0.0 - 0.8 04/13 [facility] HEMATOLOGY Eosinophils 0.1 K/CMM 0.0 - 0.5 04/13 /2013 [facility] HEMATOLOGY Basophils 1.0 % 0.0 - 1.0 04/13 [facility] HEMATOLOGY Segs-Bands # 2.4 K/CMM 1.5 - 8.1 04/13 [facility] HEMATOLOGY Lymphocytes 1.5 K/CMM 1.0 - 5.5 04/13 /2013 [facility] HEMATOLOGY Lymphocytes 32.1 % 20.0 - 04/13 40.0 [facility] HEMATOLOGY Monocytes 12.2 % 2.0 - 12.0 04/13 [facility] HEMATOLOGY Eosinophils 2.1 % 0.0 - 4.0 04/13 [facility] PET CT PET CT PET/CT SCAN: 03/24 [facility] Colorectal Colorectal /2013 - [facility] [place] restaging restaging TECHNIQUE: 14 mCi [...] AST 43 unit/L 0 - 37 03/06 [facility] CHEM PANEL Albumin Lvl 2.9 g/dL 3.5 - 5.0 03/06 [facility] CHEM PANEL Total 7.7 g/dL 6.4 - 8.4 03/06 [facility] CHEM PANEL Bili Direct 0.5 mg/dL 0.0 - 0.3 03/06 [facility] CHEM PANEL Alk Phos 137 unit/L 39 - 136 03/06 [facility] CHEM PANEL Bili Total 1.4 mg/dL 0.2 - 1.3 03/06 [facility] CHEM PANEL ALT 22 unit/L 0 - 65 03/06 [facility] CHEM PANEL Bili 0.9 mg/dL 0.0 - 1.0 03/06 [facility] CHEM PANEL Globulin 4.8 g/dL 2.0 - 4.0 03/06 [facility] CHEM PANEL A/G Ratio 0.6 0.7 - 1.6 03/06 [facility] ELECTROLYT AGAP 8.9 meq/L 10.0 - 03/06 ES 20.0 [facility] ELECTROLYT eGFR 59 03/06 1Result Comment: The eGFR is calculated using the CKD-EPI formula. In most young, healthy individuals the eGFR will be >90 mL/ min/1.73m2. The eGFR declines with age. An eGFR of 60-89 may be normal in [facility] mL/min/1.7 /2013 some populations, particularly the elderly, for whom the CKD-EPI formula has not been extensively validated. Use of the eGFR is not recommended in the following populations: [facility] 3m2 Individuals with unstable creatinine concentrations, including [...] CO2 28 meq/L 24 - 32 03/06 [facility] ELECTROLYT Calcium Lvl 8.7 mg/dL 8.5 - 10.5 03/06 [facility] ELECTROLYT BUN 9 mg/dL 7 - 22 03/06 [facility] ELECTROLYT Creatinine 0.9 mg/dL 0.5 - 1.4 03/06 [facility] Lvl [facility] ELECTROLYT Sodium Lvl 140 meq/L 135 - 145 03/06 [facility] ELECTROLYT Potassium 3.9 meq/L 3.5 - 5.1 03/06 ES Lvl [facility] ELECTROLYT Chloride Lvl 107 meq/L 95 - 109 03/06 [facility] ELECTROLYT Glucose Lvl 84 mg/dL 70 - 99 03/06 2Interpretive Data: Adult reference range values reflect the clinical guidelines of the [place] [employer]. [facility] HEMATOLOGY Hgb 11.9 g/dL 12.0 - 03/06 16.0 [facility] HEMATOLOGY Hct 35.2 % 36.0 - 03/06 48.0 [facility] HEMATOLOGY Platelet 80 K/CMM 133 - 450 03/06 [facility] HEMATOLOGY WBC 4.4 K/CMM 3.7 - 10.4 03/06 [facility] HEMATOLOGY PT 15.9 s 12.0 - 03/06 14.7 [facility] HEMATOLOGY INR 1.29 0.85 - 07 3Interpretive Data: RECOMMENDED RANGES FOR PROTIME INR: . 2.0-3.0 for most medical and surgical thromboembolic states. [facility] 2.5-3.5 for artificial heart valves and recurrent embolism. INR SHOULD BE USED ONLY FOR PATIENTS ON STABLE ANTICOAGULANT THERAPY. HEMATOLOGY PTT 32.6 s 22.9 - 03/06 4Interpretive 35.8 /2013 Data: Heparin [facility] Therapeutic Range: 57 - 92 Seconds TUMOR CEA 12.2 ng/mL 0.0 - 3.0 03/06 [facility] PET CT PET CT 09/14 - Colorectal Colorectal - [facility] [place] restaging EXAM: PET/CT restaging HISTORY: [...] Vital Signs Vital Sign Value Date Comments [facility] Systolic (mm Hg) 125 08/03/2017 [facility] Diastolic (mm Hg) 71 08/03/2017 [facility] Systolic (mm Hg) 129 08/03/2017 [facility] Diastolic (mm Hg) 66 08/03/2017 [facility] Systolic (mm Hg) 128 08/03/2017 [facility] Diastolic (mm Hg) 59 08/03/2017 [facility] Respitory Rate 16 08/03/2017 [facility] Respitory Rate 11 08/03/2017 [facility] Respitory Rate 9 08/03/2017 [facility] Temperature Oral (F) 97.3 F 08/02/2017 [facility] Heart Rate 70 08/02/2017 [facility] BMI Calculated 27.18 08/02/2017 [facility] Height 165.1 cm 08/02/2017 [facility] Weight 74.091 08/02/2017 [facility] Systolic (mm Hg) 99 04/21/2017 [facility] Diastolic (mm Hg) 56 04/21/2017 [facility] Respitory Rate 18 04/21/2017 [facility] Respitory Rate 18 04/21/2017 [facility] Systolic (mm Hg) 114 04/21/2017 [facility] Diastolic (mm Hg) 58 04/21/2017 [facility] Systolic (mm Hg) 109 04/21/2017 [facility] Diastolic (mm Hg) 56 04/21/2017 [facility] Respitory Rate 12 04/21/2017 [facility] Height 165.1 cm 04/13/2017 [facility] Weight 74.545 04/13/2017 [facility] BMI Calculated 27.35 04/13/2017 [facility] Temperature Oral (F) 97.4 F 04/13/2017 [facility] Heart Rate 80 04/13/2017 [facility] Systolic (mm Hg) 118 02/23/2017 [facility] Diastolic (mm Hg) 61 02/23/2017 [facility] Respitory Rate 32 02/23/2017 [facility] Respitory Rate 28 02/23/2017 [facility] Systolic (mm Hg) 109 02/23/2017 [facility] Diastolic (mm Hg) 60 02/23/2017 [facility] Systolic (mm Hg) 109 02/23/2017 [facility] Diastolic (mm Hg) 61 02/23/2017 [facility] Respitory Rate 23 02/23/2017 [facility] Temperature Oral (F) 97.4 F 02/16/2017 [facility] Heart Rate 72 02/16/2017 [facility] BMI Calculated 28.02 02/16/2017 [facility] Weight 76.364 02/16/2017 [facility] Height 165.1 cm 02/16/2017 [facility] Weight 159 08/12/2015 [id number] Height 64.4 08/12/2015 [id number] Temperature Oral (F) 97.6 F 08/12/2015 [id number] Heart Rate 93 08/12/2015 [id number] Diastolic (mm Hg) 63 08/12/2015 [id number] Systolic (mm Hg) 114 08/12/2015 [id number] Systolic (mm Hg) 102 08/07/2015 [facility] Diastolic (mm Hg) 66 08/07/2015 [facility] Temperature Oral (F) 97.6 F 08/07/2015 [facility] Respitory Rate 16 08/07/2015 [facility] Heart Rate 77 08/07/2015 [facility] Respitory Rate 15 08/07/2015 [facility] Temperature Oral (F) 97.4 F 08/07/2015 [facility] Heart Rate 81 08/07/2015 [facility] Systolic (mm Hg) 100 08/07/2015 [facility] Diastolic (mm Hg) 66 08/07/2015 [facility] Systolic (mm Hg) 115 08/07/2015 [facility] Diastolic (mm Hg) 73 08/07/2015 [facility] Heart Rate 83 08/07/2015 [facility] Respitory Rate 16 08/07/2015 [facility] Temperature Oral (F) 97.4 F 08/07/2015 [facility] BMI Calculated 26.89 08/06/2015 [facility] Weight [...] [facility] Diastolic (mm Hg) 54 03/13/2014 [facility] Temperature Oral (F) 97.6 F 03/06/2014 [facility] Height 165.1 cm 03/06/2014 [facility] Weight 65.909 03/06/2014 [facility] BMI Calculated 24.18 03/06/2014 [facility] Weight 149 02/02/2014 [facility] Temperature [...] Number For Provider Date Date Visit Outpatient [id number] COLON PING CEBALLOS 09/14 Active [facility] 9 [facility] Outpatient [id number] 153.9 PING CEBALLOS 09/20 Active [facility] Bedded [id number] Theodoros 03/13 03/13 [facility] Outpatient 0 [facility] Office [id number] Dakota Michele, 03/23 03/23 [facility] [id number] [facility] General Surgery [address] [facility] Outpatient [id number] Ping Ceballos 03/24 03/25 [place] [facility] Lab Report [id number] Dakota Michele, 03/26 03/26 [place] [id number] [facility] Lab Report [id number] Thesantoshorowili 04/12 04/12 [place] [id number] [facility] Medical Medical MD Group [facility] OBS [id number] Dakota Michele 04/18 04/20 [place] [facility] Office [id number] Dakota Michele, 04/27 04/27 [place] Visit [id number] General Surgery [facility] OP [id number] Ping Ceballos 08/05 09/04 [place] [facility] OBS [id number] Van 08/06 08/07 [place] Observ[facility] 3 J[facility] Unknown [id number] 08/12 08/12 2.16.840 Medical [id number] /2014 .1.37451 Group [id number] Outpatient [id number] THEODOROS 05/14 [facility] 0 VOLOYIAN [place] Outpatient [id number] THEODOROS 10/15 Active [facility] 1 VOLOYIAN [place] Outpatient [id number] THEODOROS 02/23 Active [facility] 3 VOLOY [place] Outpatient [id number] THEODORO 02/23 Active [facility] 2 VOLOYIAN [facility] [id number] Theodoros 02/23 02/23 [facility] Outpatient 4 Vol[facility] Outpatient [id number] Theodoros 03/04 03/05 [facility] 5 Voloyian /2016 [facility] Outpatient [id number] [facility] 03/30 Active [facility] [place] Outpatient [id number] THEODOROS 04/21 Active [facility] 5 VOLOY [facility] [id number] [facility] 04[facility]21 [facility] Voloyiannis /2016 [facility] Outpatient [id number] ROMAN FOSTER 05/12 Active [facility] [place] Outpatient [id number] [facility]INO [facility] 05/17 Active [facility] [place] Outpatient [id number] NURSE VISIT 06/22 Active [facility] Day Surgery [id number] Nino [facility] 08/03 08/03 [place] /2016 [facility] Outpatient [id number] JOVANA CUI 08/26 Active [facility] [place] Outpatient [id number] NINO [facility] 08/26 Active [facility] Ambulatory [id number] Jovana Karli 08/26 08/26 Urology Pre-Reg [facility] Outpatient [id number] Nino Innh 08/26 08/27 Urology [facility] Outpatient [id number] NINO [facility] 09/27 Active [facility] Outpatient [id number] Nino [facility] 09/27 09/28 Urology [facility] Outpatient [id number] NINO [facility] 01/14 Active [facility] Ambulatory [id number] Nino [facility] 01/14 01/14 Urology Pre-Reg [facility] Procedures Procedure Code Date Perfomer Comments Source Cystourethroscopy, 75490 Medical with removal of 7 Group foreign body, calculus, or ureteral stent from urethra or bladder (separate procedure); simple Hernia repair [id number] [facility] 4 Hernia repair [id number] Medical 4 Group Cannulation of [id number] [facility] Cardiac 40058349 1994 [facility] catheterization<sup>1 </sup> Cholecystectomy 01301288 [facility] Colonoscopy 32024946 [facility] Hysterectomy 134250670 [facility] Knee [id number] 2011 [facility] replacement<sup>2</red p> Operation [id number] [facility] Partial resection of 53131802 [facility] colon Cannulation of 605744553 Medical [facility] Group Cardiac [id number] 1994 Medical catheterization<sup>1 Group </sup> Cataract extraction [id number] Medical and insertion of Group intraocular lens Cholecystectomy 27359334 Medical Group Colonoscopy 93492426 Medical Group Hysterectomy [id number] Medical Group Knee [id number] 2011 Medical replacement<sup>2</red Group p> Operation [id number] Medical Group Partial resection of 35718227 Medical colon Group Cataract extraction 362005106 [facility] and insertion of intraocular lens
--- OUTSIDE RECORDS SUMMARY | 2019-02-03 08:57 | XMS REPORT | CCD ---
:1930 Author Organization [facility] Care Team Providers Name Role Phone Marlyn Ceballos Consulting Provider Allergies, Adverse Reactions, Alerts Substance Reaction Status morphine Active Problem List Condition Effective Dates Status CAD - Coronary artery disease Active Cancer of colon 05/10/2011 Active Cirrhosis of liver Active Esophageal varices Active Hepatitis C Active Pneumonia Active
--- OUTSIDE RECORDS SUMMARY | 2019-02-03 08:57 | XMS REPORT | CCD ---
:[address] [facility] Care Team Providers Name Role Phone Marlyn Ceballos Referring Provider Allergies, Adverse Reactions, Alerts Substance Reaction Status morphine Active Problem List Condition Effective Dates Status CAD - Coronary artery disease Active Cancer of colon 05/10/2011 Active Cirrhosis of liver Active Esophageal varices Active Hepatitis C Active Pneumonia Active
--- OUTSIDE RECORDS SUMMARY | 2019-02-03 08:58 | XMS REPORT | Continuity of Care Document ---
:1930 Author Organization [facility] Care Team Providers Name Role Phone MD Michele Hoang Unavailable Unavailable Insurance Providers Payer name Policy type / Policy ID Covered alliance party ID Policy Montoya Coverage type MEDIC[place] B-[place]: [place] AARP HEALTHCARE OPTIONS (MEDICARE SUPPLEMENT AARP HEALTHCARE [...] Location Date Office Visit Dakota Michele MD [facility] SE General Mar 23, 2014 Surgery 350 [...]
--- OUTSIDE RECORDS SUMMARY | 2019-02-03 08:59 | XMS REPORT ---
:1930 Author Organization [employer] Care Team Providers Name Role Phone Belkis Luuad Provider Role Unavailable Allergies, Adverse Reactions, Alerts Substance Reaction Event Type Adhesive Tape rash Drug Allergy Morphine Sulfate Info Not Available Drug Allergy Encounters Encounter Location Date Unknown [facility] Aug 12, 2015 Problems Problem Type Condition [...] End Status Dosage Date Date [facility]ol [facility] 44900-65 20 mg Orally Active 1 tablet 73-00 daily Gabapentin [facility] 54185-73 300 MG Orally Active 1 capsule 39-19 twice a day (bid) B-12 [facility] 43101-80 2500 MCG Active Unknown 92-[address] [facility] 71389-62 Orally daily Active 1 tablet 87-60 Lasix [facility] 96534-03 40 MG Orally Active 1 tablet 60-13 Once a day Ciprofloxacin [facility] 89371-92 500 MG/5ML (10%) Active 5 ml 93-01 Orally Twice a day [facility] 19143-70 25 MG Orally Active 1 tablet 03-11 daily Caltrate 600+D [facility] 05357-32 600-400 MG-UNIT Active 1 tablet 86-00 Orally [...]
--- OUTSIDE RECORDS SUMMARY | 2019-02-03 08:59 | XMS REPORT | Continuity of Care Document ---
:[address] [facility] Care Team Providers Name Role Phone MD Niranjan, Galdino Unavailable Unavailable Insurance Providers Payer name Policy type / Policy ID Covered republican ID Policy Montoya Coverage type MEDIC[place] B-[place]: cFares AARP HEALTHCARE OPTIONS (MEDICARE SUPPLEMENT AARP HEALTHCARE [...] Location Date Lab Report Galdino Ureña MD [facility] Apr 12, 2014 Allergies, Adverse Reactions, [...]
--- OUTSIDE RECORDS SUMMARY | 2019-02-03 08:59 | XMS REPORT | Continuity of Care Document ---
:1930 Author Organization [facility] Care Team Providers Name Role Phone MD Michele Hoang Unavailable Unavailable Insurance Providers Payer name Policy type / Policy ID Covered constitution party ID Policy Montoya Coverage type MEDIC[place]: [employer] AARP HEALTHCARE OPTIONS (MEDICARE SUPPLEMENT AARP HEALTHCARE [...] Location Date Office Visit Dakota Michele MD [facility] SE General Apr 27, 2014 [...]
--- OUTSIDE RECORDS SUMMARY | 2019-02-03 08:59 | XMS REPORT | Continuity of Care Document ---
:1930 Author Organization [facility] Care Team Providers Name Role Phone MD Michele Hoang Unavailable Unavailable Insurance Providers Payer name Policy type / Policy ID Covered green party ID Policy Montoya Coverage type MEDICARE B-[place]: [employer] AARP HEALTHCARE OPTIONS (MEDICARE SUPPLEMENT AARP HEALTHCARE [...] Location Date Lab Report Dakota Michele MD [facility] [place] Mar 26, 2014 Allergies, Adverse Reactions, Alerts [...]
--- OUTSIDE RECORDS SUMMARY | 2019-02-03 09:00 | XMS REPORT ---
:1930 [facility] [address] [place] [address] [address] [place] [address] Care Team Providers Name Role Phone MARY [...] Value Reference Range Comments ALPHA-FETOPROTEIN (BEAKER) (test yiiu=8833) 2.9 ng/mL <10.0 HEPATIC FUNCTION [id number] 16:38:00 Test Item Value Reference Range Comments TOTAL PROTEIN (BEAKER) (test jqkn=802) 9.0 gm/dL 6.0-8.3 ALBUMIN (BEAKER) (test tkly=4943) 2.8 g/dL 3.5-5.0 BILIRUBIN TOTAL (BEAKER) (test jhfo=137) 1.2 mg/dL 0.2-1.2 BILIRUBIN DIRECT (BEAKER) (test etge=068) 0.7 mg/dL 0.1-0.5 ALKALINE PHOSPHATASE (BEAKER) (test lfup=490) 111 U/L 40-150 AST (SGOT) (BEAKER) (test mwny=427) 31 U/L 5-34 ALT (SGPT) (BEAKER) (test etnz=484) 12 U/L 6-55 BASIC METABOLIC [id number] 16:38:00 Test Item Value Reference Range Comments SODIUM (BEAKER) (test 133 meq/L 136-145 swjr=878) POTASSIUM (BEAKER) (test 4.0 meq/L 3.5-5.1 nxtp=847) CHLORIDE (BEAKER) (test 100 meq/L 98-107 goar=116) CO2 (BEAKER) (test 27 meq/L 22-29 kojj=451) BLOOD UREA NITROGEN 20 mg/dL 7-21 (BEAKER) (test fiui=534) CREATININE (BEAKER) (test 1.07 mg/dL 0.57-1.25 mvzg=336) GLUCOSE RANDOM (BEAKER) 71 mg/dL 70-105 (test mhvk=316) CALCIUM (BEAKER) (test 9.4 mg/dL 8.4-10.2 wfuh=339) EGFR (BEAKER) (test 49 mL/min/1.73 sq m ESTIMATED GFR IS NOT rhug=8412) ACCURATE CREATININE CLEARANCE IN PREDICTING GLOMERULAR FILTRATION RATE. ESTIMATED GFR IS NOT APPLICABLE FOR DIALYSIS PATIENTS. [id number] 16:33:00 Test Item Value Reference Range Comments AMMONIA (BEAKER) (test qdqg=179) 40 mol/L 18-72 PROTHROMBIN [id number] 16:29:00 Test Item Value Reference Range Comments PROTIME (BEAKER) (test qteg=211) 16.5 seconds 11.7-14.7 INR (BEAKER) (test azic=153) 1.3 <=5.9 RECOMMENDED COUMADIN/WARFARIN INR THERAPY RANGESSTANDARD DOSE: 2.0 - 3.0 Includes: PROPHYLAXIS forvenous thrombosis, systemic embolization; TREATMENT for venous thrombosis and/or pulmonary embolus.HIGH RISK: Target INR is 2.5-3.5 for patients with mechanical heart valves.CBC W/PLT COUNT & AUTO [id number] 16:22:00 Test Item Value Reference Range Comments WHITE BLOOD CELL COUNT (BEAKER) (test qkau=021) 5.0 K/ L 3.5-10.5 RED BLOOD CELL COUNT (BEAKER) (test pwmy=479) 3.39 M/ L 3.93-5.22 HEMOGLOBIN (BEAKER) (test dffd=706) 10.7 GM/DL 11.2-15.7 HEMATOCRIT (BEAKER) (test ehkp=128) 33.1 % 34.1-44.9 MEAN CORPUSCULAR VOLUME (BEAKER) (test zoko=846) 97.6 fL 79.4-94.8 MEAN CORPUSCULAR HEMOGLOBIN (BEAKER) (test 31.6 pg 25.6-32.2 hdbu=223) MEAN CORPUSCULAR HEMOGLOBIN CONC (BEAKER) (test 32.3 GM/DL 32.2-35.5 epcl=781) RED CELL DISTRIBUTION WIDTH (BEAKER) (test 15.0 % 11.7-14.4 fbdp=635) PLATELET COUNT (BEAKER) (test oorv=477) 98 K/CU MM 150-450 MEAN PLATELET VOLUME (BEAKER) (test xjkc=540) 10.0 fL 9.4-12.3 NUCLEATED RED BLOOD CELLS (BEAKER) (test 0 /100 WBC 0-0 savj=328) NEUTROPHILS RELATIVE PERCENT (BEAKER) (test 71 % mtoz=583) LYMPHOCYTES RELATIVE PERCENT (BEAKER) (test 14 % kzgt=805) MONOCYTES RELATIVE PERCENT (BEAKER) (test 12 % zurq=658) EOSINOPHILS RELATIVE PERCENT (BEAKER) (test 2 % dbvx=811) BASOPHILS RELATIVE PERCENT (BEAKER) (test 1 % stln=893) NEUTROPHILS ABSOLUTE COUNT (BEAKER) (test 3.51 K/ L 1.56-6.13 ofsp=472) LYMPHOCYTES ABSOLUTE COUNT (BEAKER) (test 0.69 K/ L 1.18-3.74 hmfa=176) MONOCYTES ABSOLUTE COUNT (BEAKER) (test mynx=492) 0.62 K/ L 0.24-0.36 EOSINOPHILS ABSOLUTE COUNT (BEAKER) (test 0.10 K/ L 0.04-0.36 ahyj=413) BASOPHILS ABSOLUTE COUNT (BEAKER) (test vawx=044) 0.04 K/ L 0.01-0.08 IMMATURE GRANULOCYTES-RELATIVE PERCENT (BEAKER) 0 % 0-1 (test gncn=8643) ALPHA FETOPROTEIN (AFP), TUMOR [id number] 17:15:00 Test Item Value Reference Range Comments ALPHA-FETOPROTEIN (BEAKER) (test wgpk=2952) 3.3 ng/mL <10.0 [id number] 16:34:00 Test Item Value Reference Range Comments MAGNESIUM (BEAKER) (test mxjz=714) 1.8 mg/dL 1.6-2.6 BASIC METABOLIC [id number] 16:34:00 Test Item Value Reference Range Comments SODIUM (BEAKER) (test 133 meq/L 136-145 wuth=771) POTASSIUM (BEAKER) (test 3.9 meq/L 3.5-5.1 vtzi=551) CHLORIDE (BEAKER) (test 99 meq/L 98-107 ragf=557) CO2 (BEAKER) (test 25 meq/L 22-29 beud=931) BLOOD UREA NITROGEN 12 mg/dL 7-21 (BEAKER) (test mrhm=546) CREATININE (BEAKER) (test 0.97 mg/dL 0.57-1.25 cbox=210) GLUCOSE RANDOM (BEAKER) 93 mg/dL 70-105 (test ghot=491) CALCIUM (BEAKER) (test 9.0 mg/dL 8.4-10.2 vmoj=335) EGFR (BEAKER) (test 54 mL/min/1.73 sq m ESTIMATED GFR IS NOT itjg=6290) ACCURATE CREATININE CLEARANCE IN PREDICTING GLOMERULAR FILTRATION RATE. ESTIMATED GFR IS NOT APPLICABLE FOR DIALYSIS PATIENTS. Specimen slightly ictericHEPATIC FUNCTION [id number] 16:34:00 Test Item Value Reference Range Comments TOTAL PROTEIN (BEAKER) (test piwm=151) 8.0 gm/dL 6.0-8.3 ALBUMIN (BEAKER) (test biwa=8654) 3.0 g/dL 3.5-5.0 BILIRUBIN TOTAL (BEAKER) (test cwfz=281) 1.9 mg/dL 0.2-1.2 BILIRUBIN DIRECT (BEAKER) (test mvaq=098) 0.8 mg/dL 0.1-0.5 ALKALINE PHOSPHATASE (BEAKER) (test ouqs=960) 122 U/L 40-150 AST (SGOT) (BEAKER) (test nfyc=581) 30 U/L 5-34 ALT (SGPT) (BEAKER) (test vnci=821) 12 U/L 6-55 Specimen slightly ictericPROTHROMBIN [id number] 16:17:00 Test Item Value Reference Range Comments PROTIME (BEAKER) (test bofs=113) 17.3 seconds 11.7-14.7 INR (BEAKER) (test wtib=116) 1.4 <=5.9 RECOMMENDED COUMADIN/WARFARIN INR THERAPY RANGESSTANDARD DOSE: 2.0 - 3.0 Includes: PROPHYLAXIS forvenous thrombosis, systemic embolization; TREATMENT for venous thrombosis and/or pulmonary embolus.HIGH RISK: Target INR is 2.5-3.5 for patients with mechanical heart valves.CBC W/PLT COUNT & AUTO [id number] 16:17:00 Test Item Value Reference Range Comments WHITE BLOOD CELL COUNT (BEAKER) (test kitp=775) 5.6 K/ L 3.5-10.5 RED BLOOD CELL COUNT (BEAKER) (test olxl=064) 3.83 M/ L 3.93-5.22 HEMOGLOBIN (BEAKER) (test xpti=780) 12.0 GM/DL 11.2-15.7 HEMATOCRIT (BEAKER) (test arhz=523) 36.8 % 34.1-44.9 MEAN CORPUSCULAR VOLUME (BEAKER) (test mdwm=915) 96.1 fL 79.4-94.8 MEAN CORPUSCULAR HEMOGLOBIN (BEAKER) (test 31.3 pg 25.6-32.2 gajp=134) MEAN CORPUSCULAR HEMOGLOBIN CONC (BEAKER) (test 32.6 GM/DL 32.2-35.5 ruft=380) RED CELL DISTRIBUTION WIDTH (BEAKER) (test 15.9 % 11.7-14.4 oqeu=801) PLATELET COUNT (BEAKER) (test cgkr=326) 83 K/CU MM 150-450 MEAN PLATELET VOLUME (BEAKER) (test ollu=549) 11.1 fL 9.4-12.3 NUCLEATED RED BLOOD CELLS (BEAKER) (test 0 /100 WBC 0-0 aaud=580) NEUTROPHILS RELATIVE PERCENT (BEAKER) (test 54 % xqpd=461) LYMPHOCYTES RELATIVE PERCENT (BEAKER) (test 36 % dexm=937) MONOCYTES RELATIVE PERCENT (BEAKER) (test 8 % oott=129) EOSINOPHILS RELATIVE PERCENT (BEAKER) (test 2 % fyki=084) BASOPHILS RELATIVE PERCENT (BEAKER) (test 1 % fjtp=570) NEUTROPHILS ABSOLUTE COUNT (BEAKER) (test 3.01 K/ L 1.56-6.13 ciwp=283) LYMPHOCYTES ABSOLUTE COUNT (BEAKER) (test 1.98 K/ L 1.18-3.74 qtgz=323) MONOCYTES ABSOLUTE COUNT (BEAKER) (test rhrd=890) 0.44 K/ L 0.24-0.36 EOSINOPHILS ABSOLUTE COUNT (BEAKER) (test 0.10 K/ L 0.04-0.36 nmmi=464) BASOPHILS ABSOLUTE COUNT (BEAKER) (test jvnl=158) 0.04 K/ L 0.01-0.08 IMMATURE GRANULOCYTES-RELATIVE PERCENT (BEAKER) 0 % 0-1 (test zqei=1828) ALPHA FETOPROTEIN (AFP), TUMOR [id number] 16:14:00 Test Item Value Reference Range Comments ALPHA-FETOPROTEIN (BEAKER) (test rgte=7851) 5.7 ng/mL <10.0 Effective 07/17/2014: Reference Range ChangeNew: <10.0 Previous: 0.0- [id number] 15:57:00 Test Item Value Reference Range Comments MAGNESIUM (BEAKER) (test fgri=232) 1.9 mg/dL 1.6-2.6 BASIC METABOLIC [id number] 15:57:00 Test Item Value Reference Range Comments SODIUM (BEAKER) (test 139 meq/L 136-145 bkol=055) POTASSIUM (BEAKER) (test 4.5 meq/L 3.5-5.1 mcyn=584) CHLORIDE (BEAKER) (test 105 meq/L 98-107 iigo=450) CO2 (BEAKER) (test 25 meq/L 22-29 hpeg=760) BLOOD UREA NITROGEN 15 mg/dL 7-21 (BEAKER) (test xidm=913) CREATININE (BEAKER) (test 0.95 mg/dL 0.57-1.25 wnns=135) GLUCOSE RANDOM (BEAKER) 86 mg/dL 70-105 (test puhi=007) CALCIUM (BEAKER) (test 9.4 mg/dL 8.4-10.2 uvsw=618) EGFR (BEAKER) (test 56 mL/min/1.73 sq m ESTIMATED GFR IS NOT xzrl=1550) ACCURATE CREATININE CLEARANCE IN PREDICTING GLOMERULAR FILTRATION RATE. ESTIMATED GFR IS NOT APPLICABLE FOR DIALYSIS PATIENTS. Specimen slightly ictericHEPATIC FUNCTION [id number] 15:57:00 Test Item Value Reference Range Comments TOTAL PROTEIN (BEAKER) (test fpqk=105) 7.6 gm/dL 6.0-8.3 ALBUMIN (BEAKER) (test qafi=8903) 3.2 g/dL 3.5-5.0 BILIRUBIN TOTAL (BEAKER) (test uawx=885) 1.8 mg/dL 0.2-1.2 BILIRUBIN DIRECT (BEAKER) (test wojn=232) 0.8 mg/dL 0.1-0.5 ALKALINE PHOSPHATASE (BEAKER) (test cqbe=917) 112 U/L 40-150 AST (SGOT) (BEAKER) (test xedd=481) 33 U/L 5-34 ALT (SGPT) (BEAKER) (test rqex=488) 17 U/L 6-55 Specimen slightly ictericPROTHROMBIN [id number] 15:56:00 Test Item Value Reference Range Comments PROTIME (BEAKER) (test jqzt=269) 16.7 seconds 11.7-14.7 INR (BEAKER) (test lhlp=240) 1.4 <=5.9 RECOMMENDED COUMADIN/WARFARIN INR THERAPY RANGESSTANDARD DOSE: 2.0 - 3.0 Includes: PROPHYLAXIS forvenous thrombosis, systemic embolization; TREATMENT for venous thrombosis and/or pulmonary embolus.HIGH RISK: Target INR is 2.5-3.5 for patients with mechanical heart valves.CBC W/PLT COUNT & AUTO [id number] 15:56:00 Test Item Value Reference Range Comments WHITE BLOOD CELL COUNT (BEAKER) (test lcfy=927) 5.3 K/ L 4.0-10.0 RED BLOOD CELL COUNT (BEAKER) (test iwvv=651) 4.21 M/ L 4.00-5.00 HEMOGLOBIN (BEAKER) (test gkds=308) 14.1 GM/DL 12.0-15.0 HEMATOCRIT (BEAKER) (test kkft=858) 41.7 % 36.0-45.0 MEAN CORPUSCULAR VOLUME (BEAKER) (test frrq=995) 99.1 fL 82.0-99.0 MEAN CORPUSCULAR HEMOGLOBIN (BEAKER) (test 33.4 pg 27.0-33.0 moux=872) MEAN CORPUSCULAR HEMOGLOBIN CONC (BEAKER) (test 33.7 GM/DL 32.0-36.0 mobp=585) RED CELL DISTRIBUTION WIDTH (BEAKER) (test 13.2 % 10.3-14.2 hdiu=027) PLATELET COUNT (BEAKER) (test hydk=804) 77 K/CU MM 150-430 MEAN PLATELET VOLUME (BEAKER) (test gpvz=915) 8.4 fL 6.5-10.5 NUCLEATED RED BLOOD CELLS (BEAKER) (test 0 /100 WBC 0-0 iopu=970) NEUTROPHILS RELATIVE PERCENT (BEAKER) (test 54 % iqfw=146) LYMPHOCYTES RELATIVE PERCENT (BEAKER) (test 33 % olnp=168) MONOCYTES RELATIVE PERCENT (BEAKER) (test 10 % xnzz=716) EOSINOPHILS RELATIVE PERCENT (BEAKER) (test 3 % uutw=835) BASOPHILS RELATIVE PERCENT (BEAKER) (test 0 % tyro=463) NEUTROPHILS ABSOLUTE COUNT (BEAKER) (test 2.86 K/ L 1.80-8.00 ugfj=185) LYMPHOCYTES ABSOLUTE COUNT (BEAKER) (test 1.77 K/ L 1.48-4.50 cukm=306) MONOCYTES ABSOLUTE COUNT (BEAKER) (test rlwo=082) 0.56 K/ L 0.00-1.30 EOSINOPHILS ABSOLUTE COUNT (BEAKER) (test 0.13 K/ L 0.00-0.50 qcmc=871) BASOPHILS ABSOLUTE COUNT (BEAKER) (test ndvo=238) 0.02 K/ L 0.00-0.20 0.22IRFS-[id number] 11:05:00 Test Item Value Reference Range Comments POC-CREATININE (BEAKER) 0.9 mg/dL 0.6-1.3 TESTED AT [facility] [address] [facility] (test jfrs=1187) [facility] [address] POC-EGFR (BEAKER) (test 59 mL/min/1.73M2 owiy=3009)
--- NOTE | 2019-02-03 10:39 | RAD REPORT ---
EXAM DESCRIPTION: US - Paracentesis Proc Guidance - 02/03/2019 9:57 am CLINICAL HISTORY: ASCITES Ascites COMPARISON: Paracentesis Proc Guidance dated 01/19/2019 FINDINGS: Informed consent was obtained and time-out was performed. Patient's abdomen was prepped and draped in the usual sterile fashion. 1% lidocaine was used for loca l anesthetic purposes. A small skin incision was made along the right abdomen. A paracentesis catheter was guided into the p eroneal cavity under sonographic guidance. A large volume paracentesis was performed. The patient tolerated the procedure well. Patient was administered IV albumin per protocol following the procedure. IMPRESSION: Successful ultrasound-guided paracentesis.
[2019-02-03 13:55] VITALS: O2SAT 99; BMI 23.3
[2019-02-03 14:37] VITALS: BP 83/45; TEMP 97.5
== END ==
LOC: DS 08:43
PROVIDERS: ATTEND Internal Medicine Nephrology
DX: R18.8 Other ascites (principal); K74.69 Other cirrhosis of liver; E87.70 Fluid overload, unspecified; K91.83 Postprocedural hepatorenal syndrome
CPT/HCPCS: 96365 ×2; 96361; 87070; 36415; 88108; 89050; 49083; 96366; 99284; P9047 ×2

== ENCOUNTER 2019-03-04 09:04 | Emergency (ER) | payer OTHER ==
--- OUTSIDE RECORDS SUMMARY | 2019-03-04 09:07 | XMS REPORT | Clinical Summary ---
:1930 Author Organization [facility] Address [address] [place] [address] Care Team Providers Name Role Phone Kandy Castillo PA-C Physician Mushroom Picker Unavailable Ankush Levine Referring Physician Fareed Ballesteros [...] infection 09/06/2014 Overview: SNOMED/[place] [id number] Last Assessment & Plan: Cirrhosis of liver [...] Encounters Date Type Specialty Care Team Description 02/22/2019 Abstract Pennie Bahena RN 02/03/2019 Orders Only HepatXiao Cesar RN 12/27/2018 Orders Only HepatXiao Cesar RN 11/01/2018 Orders Only Pennie Bahena RN 10/20/2018 Abstract Yvonne James MA 10/17/2018 Telephone HepatKandy Linares, Follow-up PA-C 09/30/2018 Abstract Pennie Bahena RN 09/30/2018 Telephone Pennie Bahena RN Pending imaging 09/30/2018 Abstract Pennie Bahena RN 09/20/2018 Documentation Xiao Cole RN 09/12/2018 Telephone HepatXiao Cesar RN other 08/11/2018 Telephone HepatXiao Cesar RN other 08/10/2018 Office Visit Hepatology Lynn Murguia MD 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); [facility] Screening for cancer; Hepatology [facility] E Encephalopathy; Abnormal breath sounds 07/11/2018 Telephone Xiao Cole RN other 05/31/2018 Telephone HepatXiao Cesar RN other 05/13/2018 Abstract Yvonne James MA 04/07/2018 Orders Only Hepatology Kandy Castillo, Screening for malignant neoplasm (Primary Dx); PA-C 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) 04/07/2018 Telephone Hepatology Kandy Castillo, Follow-up CARMINE 03/08/2018 Abstract Hepatology Rosemarie Bui E after 03/03/2018 Family History Medical History Relation Name Comments [...] Taken Blood Pressure 94/60 08/10/2018 2:08 PM [employer]ING [employer] Pulse 92 08/10/2018 2:08 PM [employer] Temperature 36.3 C (97.4 F) 08/10/2018 2:08 PM [employer] Respiratory Rate 16 08/10/2018 2:08 PM [employer]ING [employer]CE [employer]ER Oxygen Saturation 98% 08/10/2018 2:08 PM [employer]ING [employer]ER Inhaled Oxygen Concentration - - Weight 58.2 kg (128 lb 6.4 oz) 08/10/2018 2:08 PM [employer] Height 165.1 cm (5' 5") 08/10/2018 2:08 PM [employer] Body Mass Index 21.37 08/10/2018 2:08 PM [employer] Plan of Treatment Not on file Procedures Procedure Name Priority Date/Time Associated Comments Diagnosis CBC W/PLT COUNT & Routine 08/10/2018 3:45 Hepatic cirrhosis Results for this AUTO DIFFERENTIAL PM [employer]ER due to chronic procedure are in hepatitis C the results infection (HCC) section. Screening for cancer Encephalopathy AMMONIA Routine 08/10/2018 3:45 Hepatic cirrhosis Results for this PM [employer] due to chronic procedure are in hepatitis C the results infection (HCC) section. Screening for cancer Encephalopathy ALPHA FETOPROTEIN Routine 08/10/2018 3:45 Hepatic cirrhosis Results for this (AFP), TUMOR MARKER PM [employer] due to chronic procedure are in hepatitis C the results infection (HCC) section. Screening for cancer Encephalopathy PROTHROMBIN TIME/INR Routine 08/10/2018 3:45 Hepatic cirrhosis Results for this PM [employer] due to chronic procedure are in hepatitis C the results infection (HCC) section. Screening for cancer Encephalopathy CBC W/PLT COUNT & Routine 08/10/2018 3:45 Hepatic cirrhosis Results for this AUTO DIFFERENTIAL PM [employer] due to chronic procedure are in hepatitis C the results infection (HCC) section. Screening for cancer Encephalopathy HEPATIC FUNCTION Routine 08/10/2018 3:45 Hepatic cirrhosis Results for this PANEL PM [employer]ER due to chronic procedure are in hepatitis C the results infection (HCC) section. Screening for cancer Encephalopathy BASIC METABOLIC PANEL Routine 08/10/2018 3:45 Hepatic cirrhosis Results for this (7) PM [employer] due to chronic procedure are in hepatitis C the results infection (HCC) section. Screening for cancer Encephalopathy after 03/03/2018 Results CBC with platelet count + automated diff (08/10/2018 3:45 PM F[employer]ING [employer]NACE [employer]ER) WBC 5.0 3.5 - 10.5 K/L [facility] RBC 3.39 (L) 3.93 - 5.22 M/L [facility] Hemoglobin 10.7 (L) 11.2 - 15.7 GM/DL [facility] Hematocrit 33.1 (L) 34.1 - 44.9 % [facility] MCV 97.6 (H) 79.4 - 94.8 fL [facility] MCH 31.6 25.6 - 32.2 pg [facility] MCHC 32.3 32.2 - 35.5 GM/DL [facility] RDW 15.0 (H) 11.7 - 14.4 % [facility] Platelets 98 (L) 150 - 450 K/CU MM [facility] MPV 10.0 9.4 - 12.3 fL [facility] nRBC 0 0 - 0 /100 WBC [facility] % Neutros 71 % [facility] % Lymphs 14 % [facility] % Monos 12 % [facility] % Eos 2 % [facility] % Baso 1 % [facility] # Neutros 3.51 1.56 - 6.13 K/L [facility] # Lymphs 0.69 (L) 1.18 - 3.74 K/L [facility] # Monos 0.62 (H) 0.24 - 0.36 K/L [facility] # Eos 0.10 0.04 - 0.36 K/L [facility] # Baso 0.04 0.01 - 0.08 K/L [facility] Immature Granulocytes-Relative 0 0 - 1 % [facility] Specimen Blood Performing Organization Address City/[facility]/Zipcode Phone Number [address] [address] CENTER Alpha fetoprotein (AFP), tumor marker (08/10/2018 3:45 PM F[employer]ING [employer]NA[employer] LOADER) Alpha-Fetoprotein 2.9 <10.0 ng/mL [facility] Specimen Blood Performing Organization Address City/[facility] Phone Number [address] [address] CENTER Pro-time/INR (08/10/2018 3:45 PM FUSING [employer]NACE LO[employer]ER) Protime 16.5 (H) 11.7 - 14.7 seconds [facility] INR 1.3 <=5.9 [facility] Specimen Blood Narrative Performed At RECOMMENDED COUMADIN/WARFARIN INR THERAPY [facility] RANGES STANDARD DOSE: 2.0 - 3.0 Includes: PROPHYLAXIS for venous thrombosis, systemic embolization; TREATMENT for venous thrombosis and/or pulmonary embolus. HIGH RISK: Target INR is 2.5-3.5 for patients with mechanical heart valves. Performing Organization Address City/[facility] Phone Number [address] [address] CENTER Ammonia (08/10/2018 3:45 PM FUSING [employer]NACE LO[employer]ER) Ammonia 40 18 - 72 mol/L [facility] Specimen Blood Performing Organization Address City/[facility] Phone Number [facility] [address] [place] [phone] [place] Hepatic function panel (08/10/2018 3:45 PM FUSING [employer]NACE [employer]ER) Protein, Total 9.0 (H) 6.0 - 8.3 gm/dL [facility] Albumin 2.8 (L) 3.5 - 5.0 g/dL [facility] Total Bilirubin 1.2 0.2 - 1.2 mg/dL [facility] Bilirubin, Direct 0.7 (H) 0.1 - 0.5 mg/dL [facility] Alkaline Phosphatase 111 40 - 150 U/L [facility] AST 31 5 - 34 U/L [facility] ALT 12 6 - 55 U/L [facility] Specimen Blood Performing Organization Address City/[facility]/Zipcode Phone Number [facility] [address] [place] [address] [phone] [place] Basic Metabolic Panel (08/10/2018 3:45 PM F[employer]ING [employer]ER) Sodium 133 (L) 136 - 145 meq/L [facility] Potassium 4.0 3.5 - 5.1 meq/L [facility] Chloride 100 98 - 107 meq/L [facility] CO2 27 22 - 29 meq/L [facility] BUN 20 7 - 21 mg/dL [facility] Creatinine 1.07 0.57 - 1.25 mg/dL [facility] Glucose 71 70 - 105 mg/dL [facility] Calcium 9.4 8.4 - 10.2 mg/dL [facility] EGFR 49Comment: ESTIMATED GFR IS mL/min/1.73 sq m [facility] NOT ACCURATE [facility] CLEARANCE IN PREDICTING GLOMERULAR FILTRATION RATE. ESTIMATED GFR IS NOT APPLICABLE FOR DIALYSIS PATIENTS. Specimen Blood Performing Organization Address City/State/Zipcode Phone Number [facility] [address] [place] [address] CENTER after 03/03/2018 Insurance Payer Benefit Plan / Group Subscriber ID Type Phone Address MEDICARE MEDICARE A B xxxxxxxxxxx Medicare [facility] GENERIC MEDICARE xxxxxxxxx [employer] SUPPLEMENT/INDIVIDUAL SUPPLEMENT
--- OUTSIDE RECORDS SUMMARY | 2019-03-04 09:16 | XMS REPORT | Continuity of Care Document ---
:1930 Author Organization [employer] Care Team Providers Name Role Phone [employer] Unavailable Unavailable Problems Problem Status Onset Classification Date Comments Source Date Reported UNK Active 017 [place] DX: Active C18.9=MALIGNANT 017 [place] NEOPLASM OF COLON, U ABNORMAL LABS Active 015 [facility] CHANGE IN MENTAL Active STATUS 015 [facility] COLON CA Active 015 [facility] 553.2 Active 014 [place] COLON RESTATING Active DX:153.9=ADENOCARC 014 [place] INOMA V10.05 Active 014 [place] Umbilical hernia2 Active Problem 04/24/2017 [facility] Umbilical hernia5 Active Problem 01/17/2018 Data migrated Medical 014 from [facility] on [place] 01/28/15. UMB HERNIA WITHOUT Active Condition 04/27/2014 Medical MENTION 014 Group OBSTRUCTION/GANGRE NE LARGE INTESTINE Active Condition 04/27/2014 Medical CANCER 012 Group SCREENING FOR Active Condition 04/27/2014 Medical COLON CANCER 012 Group Carcinoma of Active Problem 01/17/2018 Data migrated Medical ascending colon1 011 from [facility] on [place] 01/28/15. CARCINOMA, Active Condition 04/27/2014 Medical ASCENDING COLON 011 Group Cancer of colon Active Problem 01/17/2018 Medical 011 Group,[facility] CH - Chronic Active Problem 04/24/2017 hepatitis [place] DVT (Confirmed) Resolved Problem 04/24/2017 [facility] Bronchitis [facility] Active Problem 01/17/2018 Medical artery disease Group,[facility] CH - Chronic Active Problem 01/17/2018 blood Medical hepatitis2 transfusion Group, 1966 [place] Chemotherapy Resolved Problem 01/17/2018 Medical Group, [place] Cirrhosis - Active Problem 01/17/2018 Medical non-alcoholic Group, [place] Cirrhosis of liver Active Problem 01/17/2018 Medical Group, [place] Colon cancer Resolved Problem 01/17/2018 Medical Group, [place] DVT (Confirmed)3, Resolved Problem 01/17/2018 post child Medical 4 1966 Group, [place] SOB on Active Problem 01/17/2018 Medical exertion(Confirmed Group, ) [facility] Esophageal varices Active Problem 01/17/2018 Medical Group, [place] Hepatitis C Active Problem 01/17/2018 Medical Group, [place] Hernia repair Resolved Problem 01/17/2018 Medical Group, [place] History of colon Active Problem 01/17/2018 Medical cancer Group, [place] Incisional hernia Active Problem 01/17/2018 Medical Group, [place] Kidney stones Active Problem 01/17/2018 Medical Group, [place] Neuropathy Active Problem 01/17/2018 Medical Group, [place] Pneumonia Active Problem 01/17/2018 Medical Group, [place] Recurrent UTI Active Problem 01/17/2018 Medical Group Unspecified Active Diagnosis 08/26/2015 2.16.840.1. infectious disease [id number] Bacterial Active Diagnosis 08/26/2015 2.16.840.1. infection [id number] Other Active Diagnosis 08/26/2015 2.16.840.1. encephalopathy [id number] Esophageal varices Active Diagnosis 08/26/2015 2.16.840.1. [id number] Hepatic cirrhosis Active Diagnosis 08/26/2015 2.16.840.1. [id number] UTI Active Problem 08/26/2015 2.16.840.1. [id number] MALIGNANT MIGEL Active COLON NOS [place] 153.9 Active [facility] HEPATOPULMONARY Active SYNDROME [facility] HX OF COLONIC Active MALIGNANCY [place] URIN TRACT Active INFECTION NOS [place] INCISIONAL HERNIA Active [place] MALIGNANT NEOPLASM Active MH OF COLON, [place] UNSPECIFIED PERSONAL HISTORY Active MH OF MALIGNANT [place] NEOPLASM O CALCULUS OF KIDNEY Active [facility] Medications Medication Details Route Status Patient Ordering Order Source Instructions Provider Date Acetaminophen 2 tab, PO, Active 300 MG / Q6H, PRN 2016 [facility] Codeine Pain, X 7 Phosphate 30 MG day, # 56 Oral Tablet tab, 0 [Tylenol with Refill(s) Codeine #3] esmolol (ANES) Route: IV, Inactive Drug form: 2016 [facility] INJ, ONCE, Stop date: 08/03/17 13:22:00 HAY SORTER ondansetron Route: IV, Inactive (ANES) Drug form: 2016 [facility] INJ, ONCE, Stop date: 08/03/17 13:07:00 HAY SORTER propofol (ANES) Route: IV, Inactive Drug form: 2016 [facility] INJ, ONCE, Stop date: 08/03/17 13:07:00 HAY SORTER lidocaine Route: IV, Inactive (ANES) Drug form: 2016 [facility] INJ, ONCE, Stop date: 08/03/17 13:07:00 HAY SORTER ciprofloxacin Route: IV, Inactive (ANES) Drug form: 2016 [facility] INJ, ONCE, Stop date: 08/03/17 13:07:00 HAY SORTER dexamethasone Route: IV, Inactive (ANES) Drug form: 2016 [facility] INJ, ONCE, Stop date: 08/03/17 13:07:00 HAY SORTER fentaNYL (ANES) Route: IV, Inactive Drug form: 2016 [facility] INJ, ONCE, Stop date: 08/03/17 13:02:00 HAY SORTER Calcium 1,000 mL, Inactive Chloride 0.0014 Rate: 25 2016 [facility] MEQ/ML / ml/hr, Infuse Potassium over: 40 hr, Chloride 0.004 Route: IV, MEQ/ML / Sodium Dosing Weight Chloride 0.103 74.091 kg, MEQ/ML / Sodium Total Volume: Lactate 0.028 1,000, Start MEQ/ML date: Injectable 08/03/17 Solution 12:12:00 HAY SORTER, Duration: 30 day, Stop date: 09/02/17 12:11:00 HAY SORTER, 1.86, m2 vancomycin Route: IV, Inactive (ANES) 1000 mg Drug form: 2016 [facility] INJ, Start date: 08/03/17 12:10:00 HAY SORTER, Stop date: 08/03/17 13:10:00 HAY SORTER Lactated Route: IV, Inactive Ringers Total Volume: 2016 [facility] Injection IV 1,000, Start (ANES) 1000 mL date: 08/03/17 12:10:00 HAY SORTER, Stop date: 08/03/17 13:10:00 HAY SORTER Ceftriaxone 1 gm, Route: No Longer IVPB, Q12H, Active 2016 [facility] Dosing Weight 74.091, kg, Start date: 08/02/17 21:00:00 HAY SORTER, Duration: 24 hr, Stop date: 08/03/17 9:00:00 HAY SORTER, ABX Indication: Urinary Tract Infection phenylephrine Route: IV, Inactive (ANES) Drug form: 2016 [facility] INJ, ONCE, Stop date: 04/21/17 10:51:00 CDT ondansetron Route: IV, Inactive (ANES) Drug form: 2016 [facility] INJ, ONCE, Stop date: 04/21/17 10:41:00 CDT dexamethasone Route: IV, Inactive (ANES) Drug form: 2016 [facility] INJ, ONCE, Stop date: 04/21/17 10:41:00 CDT ceFAZolin Route: IV, Inactive (ANES) Drug form: 2016 [facility] INJ, ONCE, Stop date: 04/21/17 10:41:00 CDT lidocaine Route: IV, Inactive (ANES) Drug form: 2016 [facility] INJ, ONCE, Stop date: 04/21/17 10:41:00 CDT propofol (ANES) Route: IV, Inactive Drug form: 2016 [facility] INJ, ONCE, Stop date: 04/21/17 10:41:00 CDT fentaNYL (ANES) Route: IV, Inactive Drug form: 2016 [facility] INJ, ONCE, Stop date: 04/21/17 10:41:00 CDT acetaminophen Route: IV, Inactive (ANES) (ANES) Drug form: 2016 [facility] INJ, Start date: 04/21/17 10:35:00 CDT, Stop date: 04/21/17 11:35:00 CDT sodium chloride Route: IV, Inactive 08/23/ MH 0.9% 500 ml INJ Total Volume: 2016 [facility] (ANES) 500, Start date: 04/21/17 10:08:00 CDT, Stop date: 04/21/17 11:08:00 CDT Calcium 1,000 mL, Inactive Chloride 0.0014 Rate: 25 2016 [facility] MEQ/ML / ml/hr, Infuse Potassium over: 40 hr, Chloride 0.004 Route: IV, MEQ/ML / Sodium Dosing Weight Chloride 0.103 74.545 kg, MEQ/ML / Sodium Total Volume: Lactate 0.028 1,000, Start MEQ/ML date: Injectable 04/21/17 Solution 9:53:00 CDT, Duration: 30 day, Stop date: 05/21/17 9:52:00 CDT Ocuvite 1 tab, PO, Active Daily, 0 2016 [facility] Refill(s) Furosemide 40 40 mg=1 tab, Active MG Oral Tablet PO, Daily, 0 2016 [facility] Refill(s) Vitamin D3 2000 2,000 Active intl units oral IntlUnit=1 2016 [facility] tablet tab, PO, Daily, 0 Refill(s) Albuterol 0.833 3 mL, Route: Inactive MG/ML / NEB, Drug 2016 [facility] Ipratropium Form: SOLN, Peck 0.167 Dosing Weight MG/ML Inhalant 76.364, kg, Solution ONCE, STAT, Start date: 02/23/17 9:22:00 CDT, Stop date: 02/23/17 9:22:00 CDTNotes: (Same as: Mirza) Sodium Chloride 500 mL, Rate: Inactive 0.154 MEQ/ML 25 ml/hr, 2016 [facility] Injectable Infuse over: Solution 20 hr, Route: IV, Dosing Weight 76.364 kg, Total Volume: 500, Start date: 02/23/17 9:22:00 CDT, Duration: 1 day, Stop date: 02/24/17 9:21:00 CDT Lasix 20 mg, 1 tab, No Longer Route: PO, Active 2014 [facility] Drug form: TAB, Daily, Dosing Weight 73.295, kg, Start date: 08/08/15 9:00:00, Duration: 30 day, Stop date: 09/06/15 9:00:00Notes: (Same as: Lasix) May cause GI upset. Give with food or milk. Spironolactone 12.5 mg, 0.5 No Longer tab, Route: Active 2014 [facility] PO, Drug form: TAB, Daily, [...] 20 mL, Route: Inactive IVP, Start 2014 [facility] date: 08/07/15 12:19:00, Duration: 30 day, Stop date: 09/06/15 12:18:00, PRN Line FlushNotes: preservative free. sodium chloride 10 mL, Route: Inactive IVP, Start 2014 [facility] date: 08/07/15 12:18:00, Duration: 30 day, Stop date: 09/06/15 12:17:00, PRN Line FlushNotes: preservative free. ciprofloxacin 500 mg=1 tab, Active 500 mg oral PO, Q12H, X 2014 tablet 10 day, # 20 tab, 0 Refill(s) Cephalexin 500 500 mg=1 cap, Inactive MG Oral Capsule PO, TID, X 10 2014 [Keflex] day, # 30 cap, 0 Refill(s) Docusate Sodium 100 mg, 1 Inactive 100 MG Oral cap, Route: 2014 [facility] Capsule PO, Drug [Colace] form: CAP, Daily, Dosing Weight 73.295, kg, PRN Constipation, Start date: 08/07/15 11:09:00, Duration: 30 day, Stop date: 09/06/15 11:08:00Notes : (Same as: Colace) (Do Not Crush) Ibuprofen 400 mg, 1 Inactive tab, Route: 2014 [facility] PO, Drug form: TAB, ONCE, Dosing Weight 73.295, kg, PRN Headache 1-5, Start date: 08/06/15 21:10:00, Stop date: 08/06/15 21:10:00Notes : (Same as: Motrin) "Do Not Crush" Give with food. Lasix PO, Daily, 0 Active Refill(s) 2014 [facility] Rocephin 1 gm, Route: No Longer IVPB, Active 2014 [facility] [id number], Dosing Weight 73.295, kg, Start date: 08/06/15 9:00:00, Duration: 30 day, Stop date: 09/04/15 9:00:00Notes: (Same As: Rocephin). Use with 100 mL NS and infuse over 30 min MEDICATION WASTE Product Size: 1000 mg Product Wasted: ___ mg Lactulose 10 gm, 15 ml, Inactive Route: PO, 2014 [facility] Drug Form: SYRP, Dosing Weight 73.295, kg, ONCE, Start date: 08/06/15 3:49:00, Stop date: 08/06/15 3:49:00Notes: (Same as:Chronulac) Ondansetron 4 mg, 2 mL, No Longer Route: IVP, Active 2014 [facility] Drug form: INJ, Q6H, Dosing Weight 73.636, kg, PRN Nausea & Vomiting, Start date: 08/06/15 3:29:00, Duration: 30 day, Stop date: 09/05/15 3:28:00Notes: (Same as: Zofran) MEDICATION WASTE Product Size: 4 mg Product Wasted: ___ mg Acetaminophen 325 mg, 1 No Longer tab, Route: Active 2014 [facility] PO, Drug form: TAB, Q4H, Dosing Weight 73.636, kg, PRN Pain Score 4-6, Start date: 08/06/15 3:29:00, Duration: 30 day, Stop date: 09/05/15 3:28:00Notes: Do not exceed 4 gm/day. (Same as: Tylenol) Morphine 2 mg, Route: No Longer IVP, Q4H, Active 2014 [facility] Dosing Weight 73.636, kg, PRN Pain Score 7-10, Start date: 08/06/15 3:29:00, Duration: 30 day, Stop date: 09/05/15 3:28:00 Aspirin 325 mg, 1 No Longer tab, Route: Active 2014 [facility] PO, Drug form: ECTAB, Q24H, Dosing Weight 73.636, kg, Start date: 08/06/15 3:00:00, Duration: 30 day, Stop date: 09/04/15 3:00:00Notes: (Do Not Crush) Do not crush or chew. Saline Flush 10 mL, Route: No Longer 0.9% IVP, Drug Active 2014 [facility] Form: INJ, Dosing Weight 75.455, kg, PRN, PRN Line Flush, Start date: 08/05/15 19:05:00, Duration: 30 day, Stop date: 09/04/15 19:04:00Notes : (Same as: BD Posiflush) Docusate Sodium 100 mg=1 cap, Active 100 MG Oral PO, Daily, as 2013 [facility] Capsule needed for [Colace] constipation, # 20 cap, 0 Refill(s) gabapentin 300 300 mg=1 cap, Active MG Oral Capsule PO, BID, # 90 2013 cap, 0 Refill(s) tramadol 50 mg=1 tab, Active hydrochloride PO, Q6H, 2013 50 MG Oral Pain, # 40 Tablet tab, 0 Refill(s) Ibuprofen 400 400 mg, 1 No Longer MG Oral Tablet tab, Route: Active 2013 [facility] PO, Drug form: TAB, Q6H, Dosing Weight 64.545, kg, PRN as needed for pain, Start date: 04/19/14 14:09:00, Duration: 30 day, Stop date: 05/19/14 14:08:00Notes : (Same as: Motrin) "Do Not Crush" Give with food. Ibuprofen 600 mg, Inactive Route: PO, 2013 [facility] Q6H, Dosing Weight 64.545, kg, PRN Severe Pain, Start date: 04/19/14 14:09:00, Duration: 30 day, Stop date: 05/19/14 14:08:00 hydromorphone 0.5 mg, 0.5 No Longer mL, Route: Active 2013 [facility] IV, Drug form: INJ, Q2H, PRN Pain, Start date: 04/18/14 17:55:00, Duration: 30 day, Stop date: 05/18/14 17:54:00 Ibuprofen 600 mg, Inactive Route: PO, 2013 [facility] Q6H, Dosing Weight 64.545, kg, PRN as needed for pain, Start date: 04/18/14 17:02:00, Duration: 30 day, Stop date: 05/18/14 17:01:00 Docusate Sodium 100 mg, 1 No Longer 100 MG Oral cap, Route: Active 2013 [facility] Capsule PO, Drug form: CAP, BID, Dosing Weight 64.545, kg, Start date: 04/18/14 17:00:00, Duration: 30 day, Stop date: 05/18/14 9:00:00Notes: (Same as: Colace) (Do Not Crush) Ofirmev 1,000 mg, 100 Inactive mL, Route: 2013 [facility] IV, Drug form: INJ, Q6H, Dosing Weight 65.909, kg, for > or=50 kg, Start date: 04/18/14 12:00:00, Duration: 1 day, Stop date: 04/19/14 6:00:00Notes: Infuse over 15 minutes Do not exceed 4gm/day of acetaminophen Saline Flush 5 ml, Route: No Longer 0.9% IVP, Drug Active 2013 [facility] Form: INJ, Dosing Weight 64.545, kg, PRN, PRN Line Flush, Start date: 04/18/14 10:16:00, Duration: 30 day, Stop date: 05/18/14 10:15:00Notes : Same as: BD Posiflush Sterile Sodium Chloride 1,000 mL, No Longer 0.154 MEQ/ML Rate: 125 Active 2013 [facility] Injectable ml/hr, Infuse Solution over: 8 hr, Route: IV, Dosing Weight 64.545 kg, Total Volume: 1,000, Start date: 04/18/14 10:16:00, Duration: 30 day, Stop date: 05/18/14 10:15:00 Ondansetron 4 mg, 2 mL, No Longer Route: IVP, Active 2013 [facility] Drug form: INJ, Q6H, Dosing Weight 64.545, kg, PRN Nausea & Vomiting, Start date: 04/18/14 10:16:00, Duration: 30 day, Stop date: 05/18/14 10:15:00Notes : (Same as: Zofran) Acetaminophen 1 tab, Route: Inactive 325 MG / PO, Drug 2013 [facility] Hydrocodone Form: TAB, Bitartrate 5 MG Dosing Weight Oral Tablet 65.909, kg, Q4H, PRN Pain Score 1-3, Start date: 04/18/14 10:16:00, Duration: 30 day, Stop date: 05/18/14 10:15:00Notes : (Same as: [place] 325/5) Do not exceed 4gm/day of acetaminophen . Cefoxitin 2 gm, Route: No Longer IVPB, ONCALL, Active 2013 [facility] Dosing Weight 64.545, kg, Start date: 04/13/14 13:00:00, Duration: 30 day, Stop date: 05/13/14 12:59:00Notes : (Same As: Mefoxin) Naloxone 0.1 mg, Inactive Route: IVP, 2013 Q2MIN, Dosing Weight 65.909, kg, PRN Narcotic Reversal, Start date: 03/13/14 11:16:00, Duration: 4 doses or times, Stop date: Limited # of times Flumazenil 0.2 mg, Inactive Route: IVP, 2013 [facility] PRN, Dosing Weight 65.909, kg, PRN Other -See Comment, Start date: 03/13/14 11:16:00, Duration: 1 doses or times, Stop date: Limited # of times Sodium Chloride 1,000 mL, Inactive 0.154 MEQ/ML Rate: 25 2013 [facility] Injectable ml/hr, Infuse Solution over: 40 hr, Route: IV, Dosing Weight 65.909 kg, Total Volume: 1,000, Start date: 03/13/14 9:59:00, Duration: 30 day, Stop date: 04/12/14 9:58:00 Coconut oil Coconut oil, Active Refill(s) 0 2013 ibandronic acid 150 mg=1 tab, Active 150 MG Oral PO, qMonth, # 2013 [facility] Tablet [Boniva] 1 tab, 0 Refill(s) HM VITAMIN D3 Active Medical 2000 UNIT CAPS 2013 Group ALDACTONE 25 MG one by mouth Active Medical TABS once daily 2013 Group GABAPENTIN 300 one by mouth Active Medical MG CAPS twice daily 2013 Group BONIVA 150 MG one tablet Active Medical TABS once per 2013 Group month B-12 2500 MCG one by mouth Active 02/02[facility] Medical TABS once daily 2013 Group MOTRIN IB 200 prn Active 02/02[facility] Medical MG TABS 2013 Group COCONUT OIL OIL two teaspoons Active Medical daily 2013 Group ALDACTONE 25 MG one by mouth Active 02/02[facility] Medical TABS once daily 2013 Group GABAPENTIN 300 one by mouth Active 02/02[facility] Medical MG CAPS twice daily 2013 Group Propranolol HCl 1 tablet Orally Active 20 mg Orally Jus 2.16.840.1 daily .022900.4. 391 68 Gabapentin 1 capsule Orally Active 300 MG Orally Jus 2.16.840.1 twice a day .647705.4. (bid) 391 68 B-12 Unknown Sublingual Active 2500 MCG Jus 2.16.840.1 Sublingual .184426.4. 391 68 Ocuvite 1 tablet Orally Active Orally daily Jus 2.16.840.1 .326954.4. 391 68 Lasix 1 tablet Orally Active 40 MG Orally Jus 2.16.840.1 Once a day .758244.4. 68 Ciprofloxacin 5 ml Orally Active 500 MG/5ML Jus 2.16.840.1 (10%) Orally .935298.4. Twice a day Spironolactone 1 tablet Orally Active 25 MG Orally Jus 2.16.840.1 daily .423102.4. Caltrate 600+D 1 tablet with Orally Active 600-400 Jus 2.16.840.1 food MG-UNIT .003502.4. Orally Once a day Allergies, Adverse Reactions, Alerts Substance Category Reaction Severity Reaction Status Date Comments Source type Reported MORPHINE Drug MORPHINE allergy 2 Medical Group morphine<s Assertion Drug Active Data up>1</sup> allergy 2 migrated Medical from [facility] on 12/27/14. Originally documented as MORPHINE. Hallucinatio ns Adhesive Adverse rash Adverse Active 2.16.840. Tape Reaction Reaction 5 1.067028. 4.391.. 78366 Morphine Adverse Info Not Adverse Active 2.16.840. Sulfate Reaction Available Reaction 5 1.129753. 4.391.. 37014 morphine Assertion Drug Active allergy [place] Tape Assertion Drug Active allergy Medical Group linezolid Assertion Drug Active allergy Medical Group Immunizations No Data Provided for This Section Results Order Name Results Value Reference Date Interpretation Comments Source Range URINE AND POC UA Nit Negative Negative 09/27 Medical STOOL *NA* /2017 Group (09/27/17 3:22 PM) URINE AND POC UA Negative Negative 09/27 Medical STOOL LeukEst *NA* /2017 Group (09/27/17 3:22 PM) URINE AND POC UA Uro 2.0 0.1 - 1.0 09/27 Medical STOOL /2017 Group URINE AND POC UA Glu Negative Negative 09/27 Medical STOOL mg/dL mg/dL Group URINE AND POC UA Ket Trace Negative 09/27 Medical STOOL mg/dL mg/dL Group URINE AND POC UA Prot Negative Negative 09/27 Medical STOOL mg/dL mg/dL Group URINE AND POC UA pH 6.0 5.0 - 8.0 09/27 Medical STOOL Group URINE AND POC UA Bld Trace Negative 09/27 Medical STOOL *NA* /2017 Group (09/27/17 3:22 PM) URINE AND POC UA Bili Small Negative 09/27 Medical STOOL *ABN* /2017 Group (09/27/17 3:22 PM) URINE AND POC UA SG 1.020 <=1.030 09/27 Medical STOOL Group URINE AND POC UA Clear Clear 09/27 Medical STOOL Turbidity *NA* Group (09/27/17 3:22 PM) URINE AND POC UA Color Dark 09/27 Medical STOOL yellow Group HEMATOLOGY Lymphocytes 36.1 20.0 - 12 MH 40.0 /2016 [facility] HEMATOLOGY Eosinophils 1.2 0.0 - 4.0 08/03 [facility] HEMATOLOGY Monocytes 5.4 2.0 - 12.0 08/03 [facility] HEMATOLOGY Basophils 0.6 0.0 - 1.0 08/03 [facility] HEMATOLOGY Segs 56.7 45.0 - 12 MH 75.0 /2016 [facility] HEMATOLOGY Monocytes # 0.2 0.0 - 0.8 08/03 [facility] HEMATOLOGY Lymphocytes 1.0 1.0 - 5.5 08/03 MH # /2017 [facility] HEMATOLOGY Segs-Bands # 1.6 1.5 - 8.1 08/03 [facility] HEMATOLOGY MPV 9.2 7.4 - 10.4 08/03 [facility] HEMATOLOGY RDW 16.5 11.5 - 12 MH 14.5 [facility] HEMATOLOGY Platelet 62 133 - 450 12 [facility] HEMATOLOGY Hct 39.3 36.0 - 12 MH 48.0 /2017 [facility] HEMATOLOGY Hgb 13.2 12.0 - 12 MH 16.0 /2016 [facility] HEMATOLOGY RBC 4.14 4.20 - 12 MH 5.40 /2016 [facility] HEMATOLOGY MCH 31.9 27.0 - 12/ MH 31.0 /2016 [facility] HEMATOLOGY MCV 95.1 80.0 - 12 MH 98.0 /2016 [facility] HEMATOLOGY MCHC 33.6 32.0 - 12 MH 36.0 /2017 [facility] HEMATOLOGY WBC 2.8 3.7 - 10.4 08/03 [facility] CHEM PANEL eGFR 59 08/02 [facility] Comment: The [facility] eGFR is calculated using the CKD-EPI formula. In most young, healthy individuals the eGFR will be >90 mL/min/1.73m2 . The eGFR declines with age. An eGFR of 60-89 may be normal in some populations, particularly the elderly, for whom the CKD-EPI formula has not been extensively validated. Use of the eGFR is not recommended in the following populations:< br/>
Tamera viduals with unstable creatinine concentration s, including patients and those with serious co-morbid conditions.<b r/>
Patie nts with extremes in muscle mass or diet.

The data above are obtained from the National Kidney Disease Education Program (NKDEP) which additionally recommends that when the eGFR is used in patients with extremes of body mass index for purposes of drug dosing, the eGFR should be multiplied by the estimated BMI. CHEM PANEL Calcium Lvl 8.2 8.5 - 10.5 08/02 [facility] CHEM PANEL CO2 23 24 - 32 08/02 [facility] CHEM PANEL Glucose Lvl 87 70 - 99 08/02 [facility] CHEM PANEL BUN 11 7 - 22 08/02 [facility] CHEM PANEL Chloride Lvl 105 95 - 109 08/02 [facility] CHEM PANEL Potassium 3.4 3.5 - 5.1 08/02 Lvl [facility] CHEM PANEL Creatinine 0.88 0.50 - 08/02 Lvl 1.40 [facility] CHEM PANEL Sodium Lvl 138 135 - 145 08/02 [facility] CHEM PANEL AGAP 13.4 10.0 - 12 MH 20.0 /2016 [facility] CHEM PANEL Total 7.0 6.4 - 8.4 08/02 [facility] CHEM PANEL Albumin Lvl 2.4 3.5 - 5.0 08/02 [facility] CHEM PANEL Alk Phos 131 39 - 136 08/02 [facility] CHEM PANEL AST 32 0 - 37 08/02 [facility] CHEM PANEL ALT 20 0 - 65 08/02 [facility] CHEM PANEL Bili Total 1.8 0.2 - 1.3 08/02 [facility] CHEM PANEL Bili Direct 0.3 0.0 - 0.3 12/ /2016 [facility] CHEM PANEL Bili 1.5 0.0 - 1.0 12/ MH Indirect /2016 [facility] CHEM PANEL A/G Ratio 0.5 0.7 - 1.6 08/02 /2016 [facility] CHEM PANEL Globulin 4.6 2.7 - 4.2 12/ /2016 [facility] HEMATOLOGY RBC 3.92 4.20 - 12 MH 5.40 /2016 [facility] HEMATOLOGY WBC 5.1 3.7 - 10.4 12 /2016 [facility] HEMATOLOGY Hgb 12.3 12.0 - 12 MH 16.0 /2016 [facility] HEMATOLOGY RDW 15.9 11.5 - 12 MH 14.5 /2016 [facility] HEMATOLOGY MCHC 33.4 32.0 - 12 MH 36.0 /2016 [facility] HEMATOLOGY MCH 31.3 27.0 - 12/ MH 31.0 /2016 [facility] HEMATOLOGY Hct 36.7 36.0 - 08/02 MH 48.0 /2016 [facility] HEMATOLOGY MCV 93.6 80.0 - 08/02 MH 98.0 /2016 [facility] HEMATOLOGY MPV 8.9 7.4 - 10.4 12 /2016 [facility] HEMATOLOGY Platelet 82 133 - 450 12 /2016 [facility] HEMATOLOGY INR 1.49 0.85 - 08/02 MH 1.17 /2016 [facility] HEMATOLOGY PT 18.1 12.0 - 08/02 MH 14.7 /2016 [facility] HEMATOLOGY PTT 33.0 22.9 - 12/ MH 35.8 /2017 [facility] HEMATOLOGY Segs-Bands # 2.6 1.5 - 8.1 08/02 /2016 [facility] HEMATOLOGY Basophils 0.8 0.0 - 1.0 08/02 /2016 [facility] HEMATOLOGY Lymphocytes 1.8 1.0 - 5.5 / MH # /2017 [facility] HEMATOLOGY Eosinophils 0.2 0.0 - 0.5 / MH # /2016 [facility] HEMATOLOGY Monocytes # 0.5 0.0 - 0.8 08/02 [facility] HEMATOLOGY Segs 51.3 45.0 - 12/ MH 75.0 /2016 [facility] HEMATOLOGY Monocytes 10.3 2.0 - 12.0 / /2016 [facility] HEMATOLOGY Lymphocytes 34.4 20.0 - 12 MH 40.0 /2016 [facility] HEMATOLOGY Eosinophils 3.2 0.0 - 4.0 08/02 [facility] ELECTROLYT AGAP 14.3 10.0 - 04/13 ES 20.0 /2016 [facility] ELECTROLYT eGFR 46 04/13 Result Comment: The [facility] eGFR is calculated using the CKD-EPI formula. In most young, healthy individuals the eGFR will be >90 mL/min/1.73m2 . The eGFR declines with age. An eGFR of 60-89 may be normal in some populations, particularly the elderly, for whom the CKD-EPI formula has not been extensively validated. Use of the eGFR is not recommended in the following populations:< br/>
Tamera viduals with unstable creatinine concentration s, including patients and those with serious co-morbid conditions.<b r/>
Patie nts with extremes in muscle mass or diet.

The data above are obtained from the National Kidney Disease Education Program (NKDEP) which additionally recommends that when the eGFR is used in patients with extremes of body mass index for purposes of drug dosing, the eGFR should be multiplied by the estimated BMI. ELECTROLYT Creatinine 1.10 0.50 - 04/13 ES Lvl 1.40 /2016 [facility] ELECTROLYT BUN 13 7 - 22 04/13 ES /2016 [facility] ELECTROLYT Potassium 4.3 3.5 - 5.1 04/13 ES Lvl /2016 [facility] ELECTROLYT Sodium Lvl 142 135 - 145 04/13 ES [facility] ELECTROLYT Chloride Lvl 107 95 - 109 04/13 ES /2016 [facility] ELECTROLYT CO2 25 24 - 32 04/13 ES /2016 [facility] ELECTROLYT Calcium Lvl 9.3 8.5 - 10.5 04/13 ES [facility] ELECTROLYT Glucose Lvl 101 70 - 99 04/13 ES [facility] HEMATOLOGY Eosinophils 0.2 0.0 - 0.5 04/13 MH # /2016 [facility] HEMATOLOGY Basophils # 0.1 0.0 - 0.2 04/13 [facility] HEMATOLOGY Monocytes # 0.6 0.0 - 0.8 04/13 [facility] HEMATOLOGY Lymphocytes 1.8 1.0 - 5.5 04/13 MH # /2016 [facility] HEMATOLOGY Segs-Bands # 3.0 1.5 - 8.1 04/13 [facility] HEMATOLOGY Basophils 0.9 0.0 - 1.0 04/13 [facility] HEMATOLOGY Monocytes 10.4 2.0 - 12.0 04/13 [facility] HEMATOLOGY Eosinophils 3.0 0.0 - 4.0 04/13 [facility] HEMATOLOGY Segs 53.7 45.0 - 04/13 MH 75.0 /2017 [facility] HEMATOLOGY Lymphocytes 32.0 20.0 - 04/13 MH 40.0 /2017 [facility] HEMATOLOGY INR 1.27 0.85 - 04/13 MH 1.17 /2016 [facility] HEMATOLOGY PT 16.2 12.0 - 04/13 MH 14.7 /2016 [facility] HEMATOLOGY MPV 8.9 7.4 - 10.4 04/13 [facility] HEMATOLOGY RDW 15.4 11.5 - 04/13 MH 14.5 [facility] HEMATOLOGY Platelet 79 133 - 450 04/13 [facility] HEMATOLOGY MCH 32.2 27.0 - 04/13 MH 31.0 /2016 [facility] MCHC 33.3 32.0 - 04/13 MH 36.0 /2017 [facility] RBC 4.00 4.20 - 04/13 MH 5.40 /2016 [facility] HEMATOLOGY MCV 96.5 80.0 - 04/13 MH 98.0 /2017 [facility] HEMATOLOGY Hct 38.6 36.0 - 04/13 MH 48.0 /2016 [facility] Hgb 12.9 12.0 - 04/13 MH 16.0 [facility] WBC 5.6 3.7 - 10.4 04/13 [facility] HEMATOLOGY PTT 28.2 22.9 - 04/13 MH 35.8 /2017 [facility] ELECTROLYT AGAP 7.1 10.0 - 02/16 ES 20.0 [facility] ELECTROLYT eGFR 54 02/16 Result Comment: The [facility] eGFR is calculated using the CKD-EPI formula. In most young, healthy individuals the eGFR will be >90 mL/min/1.73m2 . The eGFR declines with age. An eGFR of 60-89 may be normal in some populations, particularly the elderly, for whom the CKD-EPI formula has not been extensively validated. Use of the eGFR is not recommended in the following populations:< br/>
Tamera viduals with unstable creatinine concentration s, including patients and those with serious co-morbid conditions.<b r/>
Patie nts with extremes in muscle mass or diet.

The data above are obtained from the National Kidney Disease Education Program (NKDEP) which additionally recommends that when the eGFR is used in patients with extremes of body mass index for purposes of drug dosing, the eGFR should be multiplied by the estimated BMI. ELECTROLYT Calcium Lvl 8.8 8.5 - 10.5 02/16 MH [facility] ELECTROLYT Chloride Lvl 107 95 - 109 02/16 ES [facility] ELECTROLYT CO2 30 24 - 32 02/16 [facility] ELECTROLYT Potassium 4.1 3.5 - 5.1 02/16 ES Lvl /2016 [facility] ELECTROLYT Glucose Lvl 75 70 - 99 02/16 ES [facility] ELECTROLYT BUN 11 7 - 22 02/16 [facility] ELECTROLYT Creatinine 0.95 0.50 - 02/16 ES Lvl 1.40 [facility] ELECTROLYT Sodium Lvl 140 135 - 145 02/16 [facility] HEMATOLOGY Hgb 13.0 12.0 - 02/16 16.0 [facility] HEMATOLOGY Hct 38.8 36.0 - 02/16 48.0 [facility] TUMOR CEA 11.8 0.0 - 3.0 02/16 MH [facility] CHEM PANEL A/G Ratio 0.6 0.7 - 1.6 08/07 [facility] CHEM PANEL AGAP 11.9 10.0 - 08/07 MH 20.0 [facility] CHEM PANEL Globulin 4.1 2.0 - 4.0 08/07 [facility] CHEM PANEL B/C Ratio 15 6 - 25 08/07 [facility] CHEM PANEL eGFR 61 08/07 [facility] Comment: The [facility] eGFR is calculated using the CKD-EPI formula. In most young, healthy individuals the eGFR will be >90 mL/min/1.73m2 . The eGFR declines with age. An eGFR of 60-89 may be normal in some populations, particularly the elderly, for whom the CKD-EPI formula has not been extensively validated. Use of the eGFR is not recommended in the following populations:< br/>
Tamera viduals with unstable creatinine concentration s, including patients and those with serious co-morbid conditions.<b r/>
Patie nts with extremes in muscle mass or diet.

The data above are obtained from the National Kidney Disease Education Program (NKDEP) which additionally recommends that when the eGFR is used in patients with extremes of body mass index for purposes of drug dosing, the eGFR should be multiplied by the estimated BMI. CHEM PANEL CO2 25 24 - 32 08/07 [facility] CHEM PANEL Chloride Lvl 106 95 - 109 08/07 [facility] CHEM PANEL Calcium Lvl 8.5 8.5 - 10.5 08/07 [facility] CHEM PANEL Albumin Lvl 2.5 3.5 - 5.0 08/07 [facility] CHEM PANEL Total 6.6 6.4 - 8.4 08/07 [facility] CHEM PANEL ALT 20 0 - 65 08/07 [facility] CHEM PANEL AST 26 0 - 37 08/07 [facility] CHEM PANEL Alk Phos 109 39 - 136 08/07 [facility] CHEM PANEL Bili Total 1.2 0.2 - 1.3 08/07 [facility] CHEM PANEL Potassium 3.9 3.5 - 5.1 08/07 [facility] CHEM PANEL Sodium Lvl 139 135 - 145 08/07 [facility] CHEM PANEL Creatinine 0.88 0.50 - 08/07 MH Lvl 1. [facility] CHEM PANEL Glucose Lvl 120 70 - 99 08/07 [facility] CHEM PANEL BUN 13 7 - 22 08/07 [facility] CHEM PANEL Magnesium 1.9 1.8 - 2.4 08/07 Lvl [facility] HEMATOLOGY MPV 8.8 7.4 - 10.4 08/07 [facility] HEMATOLOGY Platelet 54 133 - 450 08/07 [facility] HEMATOLOGY MCHC 33.1 32.0 - 12 MH 36.0 /2014 [facility] HEMATOLOGY RDW 14.7 11.5 - 08/07 MH 14.5 /2014 [facility] HEMATOLOGY MCV 97.0 80.0 - 08/07 MH 98.0 /2014 [facility] HEMATOLOGY MCH 32.1 27.0 - 12 MH 31.0 /2014 [facility] HEMATOLOGY RBC 3.54 4.20 - 12 MH 5.40 /2014 [facility] HEMATOLOGY WBC 3.6 3.7 - 10.4 08/07 [facility] HEMATOLOGY Hct 34.3 36.0 - 08/07 MH 48.0 [facility] HEMATOLOGY Hgb 11.4 12.0 - 12 MH 16.0 /2014 [facility] HEMATOLOGY Monocytes # 0.2 0.0 - 0.8 08/07 [facility] HEMATOLOGY Eosinophils 1.3 0.0 - 4.0 08/07 [facility] HEMATOLOGY Monocytes 7.0 2.0 - 12.0 08/07 [facility] HEMATOLOGY Lymphocytes 1.1 1.0 - 5.5 / MH # /2015 [facility] HEMATOLOGY Basophils 0.6 0.0 - 1.0 08/07 [facility] HEMATOLOGY Segs-Bands # 2.2 1.5 - 8.1 08/07 [facility] HEMATOLOGY Segs 61.3 45.0 - 08/07 MH 75.0 /2014 [facility] HEMATOLOGY Lymphocytes 29.8 20.0 - 08/07 MH 40.0 /2014 [facility] URINE AND UA Nitrite Negative Negative 08/06 STOOL (08/06/15 3:01 PM) /2014 [facility] URINE AND UA Leuk Est Large Negative 08/06 STOOL *ABN* /2014 [facility] (08/06/15 3:01 PM) URINE AND UA Blood Moderate Negative 08/06 STOOL *ABN* /2014 [facility] (08/06/15 3:01 PM) URINE AND UA Bili Negative Negative 08/06 STOOL *NA* /2014 [facility] (08/06/15 3:01 PM) URINE AND UA >=8.0 0.1 - 1.0 08/06 STOOL Urobilinogen * [facility] (08/06/15 3:01 PM) URINE AND UA Color Yellow Yellow 08/06 STOOL *NA* /2014 (08/06/15 3:01 PM) URINE AND UA Turbidity Cloudy Clear 08/06 STOOL *ABN* /2014 [facility] (08/06/15 3:01 PM) URINE AND UA Glucose Negative Negative 08/06 STO[facility] (08/06/15 3:01 PM) /2014 [facility] URINE AND UA Ketones Negative Negative 08/06 STOOL *NA* /2014 [facility] (08/06/15 3:01 PM) URINE AND UA Spec Grav 1.015 <=1.030 08/06 STOOL [facility] URINE AND UA pH 6.5 5.0 - 8.0 08/06 STOOL [facility] URINE AND UA Protein 30 mg/dL Negative 08/06 STOOL mg/dL /2014 [facility] URINE AND UA Sq Epi Few /LPF Few /LPF 08/06 STOOL [facility] URINE AND UA [place] Yeast Many /HPF None Seen 08/06 STOOL /HPF [facility] URINE AND UA WBC >182 0 - 5 08/06 STOOL [facility] URINE AND UA RBC 17 0 - 2 08/06 STOOL [facility] URINE AND UA CaOx Adali Occasional None Seen 08/06 STOOL /HPF /HPF [facility] URINE AND UA Mucus Few /LPF None Seen 08/06 STOOL /LPF /2014 [facility] URINE AND UA Bacteria Moderate None Seen 08/06 MH STOOL /HPF /HPF /2014 [facility] URINE AND UA WBC >182 0 - 5 08/06 STOOL [facility] URINE AND UA Sq Epi Moderate Few /LPF 08/06 STOOL /LPF /2014 [facility] URINE AND UA RBC 13 0 - 2 08/06 [facility]OL [facility] URINE AND UA Nitrite Negative Negative 08/06 STO[facility] (08/05/15 10:40 PM) [facility] URINE AND UA Leuk Est Moderate Negative 08/06 STOOL *ABN* /2014 [facility] (08/05/15 10:40 PM) URINE AND UA 1.0 0.1 - 1.0 08/06 STOOL Urobilinogen /2014 URINE AND UA Blood Moderate Negative 08/06 STOOL *ABN* /2014 (08/05/15 10:40 PM) URINE AND UA Bili Negative Negative 08/06 STOOL *NA* /2014 (08/05/15 10:40 PM) URINE AND UA Ketones Negative Negative 08/06 STOOL *NA* /2014 (08/05/15 10:40 PM) URINE AND UA Glucose Negative Negative 08/06 STOOL (08/05/15 10:40 PM) [facility] URINE AND UA Spec Grav 1.015 <=1.030 08/06 STOOL [facility] URINE AND UA Turbidity Slight Cloudy Clear 08/06 STOOL (08/05/15 10:40 PM) [facility] URINE AND UA Color Yellow Yellow 08/06 STOOL *NA* /2014 [facility] (08/05/15 10:40 PM) URINE AND UA Protein Negative Negative 08/06 STOOL (08/05/15 10:40 PM) [facility] URINE AND UA pH 6.0 5.0 - 8.0 08/06 MH STOOL /2014 [facility] CARDIAC CK MB 5.3 0.5 - 3.6 08/06 ENZYMES /2014 [facility] CARDIAC Total CK 116 12 - 191 08/06 ENZYMES [facility] CARDIAC BNP 45 <=100 08/06 ENZYMES pg/mL /2014 [facility] CARDIAC Troponin-I <0.02 0.00 - 12 ENZYMES 0.40 /2014 [facility] CARDIAC CK MB Index 4.6 0.0 - 2.5 08/06 ENZYMES [facility] CHEM PANEL Ammonia 47.0 <=45.0 08/06 uMol/L /2014 [facility] CHEM PANEL Alk Phos 118 39 - 136 08/06 [facility] CHEM PANEL Total 7.4 6.4 - 8.4 08/06 Protein /2014 [facility] CHEM PANEL Calcium Lvl 8.5 8.5 - 10.5 08/06 [facility] CHEM PANEL eGFR 67 08/06 [facility] Comment: The [facility] eGFR is calculated using the CKD-EPI formula. In most young, healthy individuals the eGFR will be >90 mL/min/1.73m2 . The eGFR declines with age. An eGFR of 60-89 may be normal in some populations, particularly the elderly, for whom the CKD-EPI formula has not been extensively validated. Use of the eGFR is not recommended in the following populations:< br/>
Tamera viduals with unstable creatinine concentration s, including patients and those with serious co-morbid conditions.<b r/>
Patie nts with extremes in muscle mass or diet.

The data above are obtained from the National Kidney Disease Education Program (NKDEP) which additionally recommends that when the eGFR is used in patients with extremes of body mass index for purposes of drug dosing, the eGFR should be multiplied by the estimated BMI. CHEM PANEL Bili Total 1.0 0.2 - 1.3 08/06 [facility] CHEM PANEL A/G Ratio 0.6 0.7 - 1.6 08/06 [facility] CHEM PANEL ALT 21 0 - 65 08/06 [facility] CHEM PANEL Albumin Lvl 2.7 3.5 - 5.0 08/06 [facility] CHEM PANEL AST 27 0 - 37 08/06 [facility] CHEM PANEL AGAP 11.5 10.0 - 08/06 MH 20.0 /2014 [facility] CHEM PANEL Globulin 4.7 2.0 - 4.0 12/ /2014 [facility] CHEM PANEL B/C Ratio 14 6 - 25 12 [facility] CHEM PANEL BUN 11 7 - 22 08/06 [facility] CHEM PANEL Chloride Lvl 106 95 - 109 12 [facility] CHEM PANEL Creatinine 0.81 0.50 - 12 Lvl 1.40 /2014 [facility] CHEM PANEL Potassium 3.5 3.5 - 5.1 12 Lvl /2014 [facility] CHEM PANEL Sodium Lvl 140 135 - 145 12 [facility] CHEM PANEL CO2 26 24 - 32 12 [facility] CHEM PANEL Glucose Lvl 109 70 - 99 12 [facility] HEMATOLOGY MPV 9.1 7.4 - 10.4 08/06 [facility] HEMATOLOGY RDW 15.4 11.5 - 12 14.5 /2014 [facility] HEMATOLOGY Platelet 70 133 - 450 12 /2014 [facility] HEMATOLOGY MCHC 33.1 32.0 - 12 36.0 /2014 [facility] HEMATOLOGY MCH 32.1 27.0 - 12 31.0 /2014 [facility] HEMATOLOGY MCV 97.2 80.0 - 12/ 98.0 /2014 [facility] HEMATOLOGY Hct 36.5 36.0 - 12 48.0 /2014 [facility] HEMATOLOGY Hgb 12.1 12.0 - 12 16.0 /2014 [facility] HEMATOLOGY RBC 3.76 4.20 - 12 MH 5.40 /2014 [facility] HEMATOLOGY WBC 6.0 3.7 - 10.4 08/06 /2014 [facility] HEMATOLOGY Monocytes # 0.5 0.0 - 0.8 08/06 /2014 [facility] HEMATOLOGY Eosinophils 0.1 0.0 - 0.5 12/08 MH # /2015 [facility] HEMATOLOGY Lymphocytes 1.8 1.0 - 5.5 12/08 MH # /2015 [facility] HEMATOLOGY Basophils 0.6 0.0 - 1.0 08/06 /2014 [facility] HEMATOLOGY Segs-Bands # 3.6 1.5 - 8.1 08/06 /2014 [facility] HEMATOLOGY Monocytes 8.4 2.0 - 12.0 12/ /2014 [facility] HEMATOLOGY Eosinophils 2.0 0.0 - 4.0 / /2014 [facility] HEMATOLOGY Lymphocytes 29.3 20.0 - 12 MH 40.0 /2014 [facility] HEMATOLOGY Segs 59.7 45.0 - 12 MH 75.0 [facility] CHEM PANEL Ammonia 48.0 <=45.0 08/05 uMol/L /2014 [facility] CHEM PANEL Magnesium 1.9 1.8 - 2.4 08/05 Lvl [facility] CHEM PANEL Total 7.3 6.4 - 8.4 08/05 Protein [facility] CHEM PANEL Chloride Lvl 106 95 - 109 08/05 [facility] CHEM PANEL Potassium 3.8 3.5 - 5.1 08/05 Lvl [facility] CHEM PANEL Calcium Lvl 8.6 8.5 - 10.5 08/05 [facility] CHEM PANEL CO2 26 24 - 32 08/05 [facility] CHEM PANEL Glucose Lvl 93 70 - 99 08/05 [facility] CHEM PANEL Sodium Lvl 140 135 - 145 08/05 [facility] CHEM PANEL BUN 12 7 - 22 08/05 [facility] CHEM PANEL Creatinine 0.88 0.50 - 08/05 Lvl 1.40 [facility] CHEM PANEL eGFR 60 08/05 [facility] Comment: The [facility] eGFR is calculated using the CKD-EPI formula. In most young, healthy individuals the eGFR will be >90 mL/min/1.73m2 . The eGFR declines with age. An eGFR of 60-89 may be normal in some populations, particularly the elderly, for whom the CKD-EPI formula has not been extensively validated. Use of the eGFR is not recommended in the following populations:< br/>
Tamera viduals with unstable creatinine concentration s, including patients and those with serious co-morbid conditions.<b r/>
Patie nts with extremes in muscle mass or diet.

The data above are obtained from the National Kidney Disease Education Program (NKDEP) which additionally recommends that when the eGFR is used in patients with extremes of body mass index for purposes of drug dosing, the eGFR should be multiplied by the estimated BMI. CHEM PANEL Bili Total 0.9 0.2 - 1.3 08/05 [facility] CHEM PANEL Alk Phos 126 39 - 136 08/05 [facility] CHEM PANEL Albumin Lvl 2.7 3.5 - 5.0 08/05 [facility] CHEM PANEL ALT 22 0 - 65 08/05 [facility] CHEM PANEL AST 27 0 - 37 12 /2014 [facility] CHEM PANEL AGAP 11.8 10.0 - 12 MH 20.0 /2014 [facility] CHEM PANEL B/C Ratio 14 6 - 25 08/05 /2014 [facility] CHEM PANEL A/G Ratio 0.6 0.7 - 1.6 08/05 /2014 [facility] CHEM PANEL Globulin 4.6 2.0 - 4.0 08/05 [facility] HEMATOLOGY MPV 8.9 7.4 - 10.4 08/05 /2014 [facility] HEMATOLOGY RDW 15.3 11.5 - 08/05 MH 14.5 /2014 [facility] HEMATOLOGY Platelet 69 133 - 450 12 [facility] HEMATOLOGY Hct 37.6 36.0 - 08/05 MH 48.0 /2014 [facility] HEMATOLOGY MCHC 32.8 32.0 - 08/05 MH 36.0 /2014 [facility] HEMATOLOGY Hgb 12.4 12.0 - 08/05 MH 16.0 /2014 [facility] HEMATOLOGY MCV 96.5 80.0 - 08/05 98.0 /2014 [facility] HEMATOLOGY MCH 31.7 27.0 - 08/05 MH 31.0 /2014 [facility] HEMATOLOGY WBC 6.2 3.7 - 10.4 08/05 /2014 [facility] HEMATOLOGY RBC 3.90 4.20 - 08/05 MH 5.40 /2014 [facility] HEMATOLOGY Monocytes # 0.5 0.0 - 0.8 08/05 /2014 [facility] HEMATOLOGY Basophils 0.6 0.0 - 1.0 08/05 /2014 [facility] HEMATOLOGY Segs-Bands # 4.2 1.5 - 8.1 08/05 /2014 [facility] HEMATOLOGY Eosinophils 0.1 0.0 - 0.5 08/05 MH # /2014 [facility] HEMATOLOGY Lymphocytes 1.4 1.0 - 5.5 08/05 MH # /2014 [facility] HEMATOLOGY Lymphocytes 22.3 20.0 - 12 MH 40.0 /2014 [facility] HEMATOLOGY Monocytes 7.3 2.0 - 12.0 08/05 [facility] HEMATOLOGY Eosinophils 1.4 0.0 - 4.0 08/05 [facility] HEMATOLOGY Segs 68.4 45.0 - 08/05 MH 75.0 /2014 [facility] HEMATOLOGY Basophils 0.4 0.0 - 1.0 04/19 [facility] HEMATOLOGY Monocytes # 0.9 0.0 - 0.8 04/19 /2013 [facility] HEMATOLOGY Lymphocytes 1.0 1.0 - 5.5 04/19 MH # /2014 [facility] HEMATOLOGY Segs-Bands # 4.2 1.5 - 8.1 04/19 /2013 [facility] HEMATOLOGY Eosinophils 0.2 0.0 - 0.5 04/19 MH # /2013 [facility] HEMATOLOGY Eosinophils 2.7 0.0 - 4.0 04/19 /2013 [facility] HEMATOLOGY Monocytes 13.7 2.0 - 12.0 04/19 /2013 [facility] HEMATOLOGY Lymphocytes 16.6 20.0 - 04/19 MH 40.0 /2013 [facility] HEMATOLOGY Segs 66.6 45.0 - 04/19 MH 75.0 /2013 [facility] HEMATOLOGY MCHC 33.3 32.0 - 04/19 MH 36.0 /2013 [facility] HEMATOLOGY RDW 15.2 11.5 - 04/19 MH 14.5 /2013 [facility] HEMATOLOGY MCH 32.3 27.0 - 04/19 MH 31.0 /2013 [facility] HEMATOLOGY MCV 96.9 80.0 - 04/19 98.0 /2013 [facility] HEMATOLOGY Hct 30.1 36.0 - 04/19 MH 48.0 /2013 [facility] HEMATOLOGY Platelet 67 133 - 450 04/19 /2013 [facility] HEMATOLOGY MPV 8.4 7.4 - 10.4 04/19 /2013 [facility] HEMATOLOGY Hgb 10.0 12.0 - 04/19 16.0 /2013 [facility] HEMATOLOGY RBC 3.11 4.20 - 04/19 MH 5.40 /2013 [facility] WBC 6.3 3.7 - 10.4 04/19 [facility] CHEM PANEL Globulin 4.8 2.0 - 4.0 04/13 [facility] CHEM PANEL A/G Ratio 0.6 0.7 - 1.6 04/13 [facility] CHEM PANEL AGAP 13.4 10.0 - 04/13 MH 20.0 [facility] CHEM PANEL B/C Ratio 9 6 - 25 04/13 [facility] CHEM PANEL eGFR 59 04/13 <sup>1</sup>R esult [facility] Comment: The eGFR is calculated using the CKD-EPI formula. In most young, healthy individuals the eGFR will be >90 mL/min/1.73m2 . The eGFR declines with age. An eGFR of 60-89 may be normal in some populations, particularly the elderly, for whom the CKD-EPI formula has not been extensively validated. Use of the eGFR is not recommended in the following populations:& lt;br/>
I ndividuals with unstable creatinine concentration s, including patients and those with serious co-morbid conditions.<b r/>
Patie nts with extremes in muscle mass or diet.

The data above are obtained from the National Kidney Disease Education Program (NKDEP) which additionally recommends that when the eGFR is used in patients with extremes of body mass index for purposes of drug dosing, the eGFR should be multiplied by the estimated BMI. CHEM PANEL Albumin Lvl 2.9 3.5 - 5.0 04/13 [facility] CHEM PANEL ALT 23 0 - 65 04/13 [facility] CHEM PANEL AST 44 0 - 37 04/13 [facility] CHEM PANEL Alk Phos 122 39 - 136 04/13 [facility] CHEM PANEL Total 7.7 6.4 - 8.4 04/13 [facility] CHEM PANEL Bili Total 1.5 0.2 - 1.3 04/13 [facility] CHEM PANEL Sodium Lvl 144 135 - 145 04/13 [facility] CHEM PANEL Potassium 3.4 3.5 - 5.1 04/13 Lvl [facility] CHEM PANEL Chloride Lvl 106 95 - 109 04/13 [facility] CHEM PANEL CO2 28 24 - 32 04/13 [facility] CHEM PANEL Calcium Lvl 8.8 8.5 - 10.5 04/13 [facility] CHEM PANEL Creatinine 0.9 0.5 - 1.4 04/13 Lvl [facility] CHEM PANEL Glucose Lvl 71 70 - 99 04/13 <sup>2</sup>I nterpretive [facility] Data: Adult reference range values reflect the clinical guidelines
of the [employer]. CHEM PANEL BUN 8 7 - 22 04/13 [facility] CHEM PANEL A/G Ratio 0.6 0.7 - 1.6 04/13 [facility] CHEM PANEL Globulin 4.8 2.0 - 4.0 04/13 [facility] CHEM PANEL Bili 0.8 0.0 - 1.0 04/13 [facility] CHEM PANEL ALT 23 0 - 65 04/13 [facility] CHEM PANEL Alk Phos 122 39 - 136 04/13 [facility] CHEM PANEL AST 45 0 - 37 08 /2013 [facility] CHEM PANEL Bili Direct 0.5 0.0 - 0.3 04/13 /2013 [facility] CHEM PANEL Bili Total 1.3 0.2 - 1.3 04/13 [facility] CHEM PANEL Total 7.7 6.4 - 8.4 04/13 Protein /2013 [facility] CHEM PANEL Albumin Lvl 2.9 3.5 - 5.0 04/13 /2013 [facility] HEMATOLOGY MCH 32.1 27.0 - 08 MH 31.0 /2013 [facility] HEMATOLOGY RDW 14.6 11.5 - 08 MH 14.5 /2013 [facility] HEMATOLOGY MCHC 33.1 32.0 - 08 36.0 /2013 [facility] HEMATOLOGY Platelet 76 133 - 450 04/13 /2013 [facility] HEMATOLOGY RBC 3.79 4.20 - 04/13 MH 5.40 /2013 [facility] HEMATOLOGY Hct 36.7 36.0 - 04/13 48.0 /2013 [facility] HEMATOLOGY MCV 97.0 81.0 - 04/13 99.0 /2013 [facility] HEMATOLOGY Hgb 12.1 12.0 - 04/13 16.0 /2013 [facility] HEMATOLOGY WBC 4.6 3.7 - 10.4 04/13 /2013 [facility] HEMATOLOGY MPV 8.9 7.4 - 10.4 04/13 /2013 [facility] HEMATOLOGY Segs 52.6 45.0 - 04/13 75.0 /2013 [facility] HEMATOLOGY Monocytes # 0.6 0.0 - 0.8 04/13 /2013 [facility] HEMATOLOGY Eosinophils 0.1 0.0 - 0.5 04/13 MH # /2014 [facility] HEMATOLOGY Basophils 1.0 0.0 - 1.0 04/13 /2013 [facility] HEMATOLOGY Segs-Bands # 2.4 1.5 - 8.1 04/13 /2013 [facility] HEMATOLOGY Lymphocytes 1.5 1.0 - 5.5 04/13 MH # /2014 [facility] HEMATOLOGY Lymphocytes 32.1 20.0 - 08 MH 40.0 /2013 [facility] HEMATOLOGY Monocytes 12.2 2.0 - 12.0 04/13 /2013 [facility] HEMATOLOGY Eosinophils 2.1 0.0 - 4.0 04/13 /2013 [facility] CHEM PANEL AST 43 0 - 37 07 /2013 [facility] CHEM PANEL Albumin Lvl 2.9 3.5 - 5.0 03/06 MH [facility] CHEM PANEL Total 7.7 6.4 - 8.4 / MH Protein /2013 [facility] CHEM PANEL Bili Direct 0.5 0.0 - 0.3 03/06 [facility] CHEM PANEL Alk Phos 137 39 - 136 / MH [facility] CHEM PANEL Bili Total 1.4 0.2 - 1.3 03/06 [facility] CHEM PANEL ALT 22 0 - 65 / MH [facility] CHEM PANEL Bili 0.9 0.0 - 1.0 / MH Indirect /2013 [facility] CHEM PANEL Globulin 4.8 2.0 - 4.0 03/06 [facility] CHEM PANEL A/G Ratio 0.6 0.7 - 1.6 03/06 [facility] ELECTROLYT AGAP 8.9 10.0 - 07/ MH ES 20.0 /2013 [facility] ELECTROLYT eGFR 59 07 <sup>1</sup>R MH ES esult [facility] Comment: The eGFR is calculated using the CKD-EPI formula. In most young, healthy individuals the eGFR will be >90 mL/min/1.73m2 . The eGFR declines with age. An eGFR of 60-89 may be normal in some populations, particularly the elderly, for whom the CKD-EPI formula has not been extensively validated. Use of the eGFR is not recommended in the following populations:& lt;br/>
I ndividuals with unstable creatinine concentration s, including patients and those with serious co-morbid conditions.<b r/>
Patie nts with extremes in muscle mass or diet.

The data above are obtained from the National Kidney Disease Education Program (NKDEP) which additionally recommends that when the eGFR is used in patients with extremes of body mass index for purposes of drug dosing, the eGFR should be multiplied by the estimated BMI. ELECTROLYT CO2 28 24 - 32 / MH ES [facility] ELECTROLYT Calcium Lvl 8.7 8.5 - 10.5 03/06 MH ES [facility] ELECTROLYT BUN 9 7 - 22 / MH ES [facility] ELECTROLYT Creatinine 0.9 0.5 - 1.4 / MH ES Lvl /2013 [facility] ELECTROLYT Sodium Lvl 140 135 - 145 03/06 [facility] ELECTROLYT Potassium 3.9 3.5 - 5.1 03/06 ES Lvl /2013 [facility] ELECTROLYT Chloride Lvl 107 95 - 109 03/06 [facility] ELECTROLYT Glucose Lvl 84 70 - 99 03/06 <sup>2</sup>I nterpretive [facility] Data: Adult reference range values reflect the clinical guidelines
of the [employer]. HEMATOLOGY Hgb 11.9 12.0 - 03/06 16.0 /2013 [facility] HEMATOLOGY Hct 35.2 36.0 - 03/06 48.0 /2013 [facility] HEMATOLOGY Platelet 80 133 - 450 03/06 [facility] HEMATOLOGY WBC 4.4 3.7 - 10.4 03/06 [facility] HEMATOLOGY PT 15.9 12.0 - 03/06 14.7 [facility] HEMATOLOGY INR 1.29 0.85 - 03/06 <sup>3</sup>I 1.17 nterpretive [facility] Data: RECOMMENDED RANGES FOR PROTIME INR:
2.0-3.0 for most medical and surgical thromboemboli c states.
2.5-3.5 for artificial heart valves and recurrent embolism.<br/ >
INR SHOULD BE USED ONLY FOR PATIENTS ON STABLE ANTICOAGULANT THERAPY. HEMATOLOGY PTT 32.6 22.9 - 03/06 <sup>4</sup>I 35.8 /2013 nterpretive [facility] Data: Heparin Therapeutic Range: 57 - 92 Seconds TUMOR CEA 12.2 0.0 - 3.0 03/06 [facility] Pathology Reports No Data Provided for This Section Diagnostic Reports Report Value Date Source Renal pyelogram Patient Name: EDGARD DÍAZ 08/03/2017 [facility] retrograde DX : 1930; Age: 86 years Female MR: [id number] Study: Renal pyelogram retrograde DX 08/03/2017 3:09 PM [facility] CLINICAL INDICATION: bilateral lithotripsy Bilateral stent placement - Fluoro time 2.22 min Dose 17.35 mgy C #3 OR 4 COMPARISON: None FINDINGS: Limited intraoperative fluoroscopic images provided for retrograde pyelography. Contrast administration demonstrates moderate bilateral hydronephrosis. Subsequently bilateral ureteral stents were placed. Refer to operative report for full details. SL: BRUNA-M PET CT Colorectal CA Patient Name: EDGARD DÍAZ 03/04/2017 [facility] restaging : 1930; Age: 86 years y/o Female MR: [id number] Study: PET CT Colorectal CA restaging 03/04/2017 10:21 AM CDT Ordering Physician: Galdino Ureña MD Clinical Indication: C18.9 Malignant neoplasm of colon, unspecified - DLP= 735.36 mGy-cm, CTDIvol=8.27 mGy; Comparison: 03/24/[address] [...] distribution is noted in the brain, heart, liver , spleen, gastrointestinal and genitourinary tracts. IMPRESSION: 1. [...] urinary bladder suspicious for chronic cystitis. SL: [id number] Carotid artery Doppler CAROTID DOPPLER 08/06/2015 [facility] US HISTORY: Mental status changes. Encephalopathy. TECHNIQUE: The cervical carotid circulation was evaluated [...] channel criteria. SL: 13 Joe Altman M.D. Chest 1view DX Chest one view: 08/05/2015 [facility] COMPARISON: 04/19/2014 FINDINGS: Limited AP portable study. Stable position [...] is evident. Clothing artifact SL:[address] PROCEDURE: Brain wo contrast CT 08/05/2015 [facility] REASON FOR EXAM: pt from IV therapy with nurse reporting she didn't feel comfortable sending pt home because she wasn't acting right and she had an unsteady gait. pmh: Cirrhosis with recent ammonia level 48 CLINICAL INDICATION: Altered level of consciousness COMPARISON: None. FINDINGS: There is diffuse volume loss with corresponding prominence of the ventricles and sulci. There are microangiopathic changes of the white matter. There is no hemorrhage, mass or midline shift. IMPRESSION: 1. Chronic changes as described above, no acute intracranial process. 2. No evidence for hemorrhage, mass lesion or acute infarct. SL: 13 Chest 2 views EXAM: Chest 2 views 04/19/2014 [facility] DATE: Apr 19, 2014 09:48:02 AM INDICATION: Coughing COMPARISON: Chest x-ray 12/14/2012 and [...] represent subsegmental atelectasis or pneumonia. SL: [address] Colorectal CA PET/CT SCAN: 03/24/2014 [facility] restaging TECHNIQUE: 14 mCi of FDG were administered intravenously and a series of overlapping emission images were obtained from the skull base to the proximal thighs utilizing a PET/CT hybrid device. The CT wa s utilized for attenuation correction and anatomic correlation and not as an independent diagnostic study. BLOOD GLUCOSE: The patient is not diabetic. [...] Physiologic activity is visualized in the solid organs, tract and GI tract. Extensive changes of [...] history of cirrhosis and portal hypertension. SL:[address] Colorectal CA 09/14/2013 [facility] restaging EXAM: PET/CT HISTORY: Colon cancer, restaging. Chemotherapy May 2013. No radiation therapy. Right hemicolectomy. COMPARISON: PET/CT 02/02/2013. TECHNIQUE: Approximately 15 mCi F-18 FDG given [...] uncertain etiology, chronic diverticulitis is possible. SL:13 Consultation Notes No Data Provided for This Section Discharge Summaries No Data Provided for This Section History and Physicals No Data Provided for This Section Vital Signs Vital Sign Value Date Comments Source Systolic (mm Hg) 125 08/03/2017 [facility] Diastolic (mm Hg) 71 08/03/2017 [facility] Systolic (mm Hg) 129 08/03/2017 [facility] Diastolic (mm Hg) 66 08/03/2017 [facility] Systolic (mm Hg) 128 08/03/2017 [facility] Diastolic (mm Hg) 59 08/03/2017 [facility] Respitory Rate 16 08/03/2017 [facility] Respitory Rate 11 08/03/2017 [facility] Respitory Rate 9 08/03/2017 [facility] Temperature Oral (F) 97.3 F 08/02/2017 [facility] Heart Rate 70 08/02/2017 [facility] BMI Calculated 27.18 08/02/2017 [facility] Height 165.1 cm 08/02/2017 [facility] Weight 74.091 08/02/2017 [facility] Systolic (mm Hg) 99 04/21/2017 [facility] Diastolic (mm Hg) 56 04/21/2017 [facility] Respitory Rate 18 04/21/2017 [facility] Respitory Rate 18 04/21/2017 [facility] Systolic (mm Hg) 114 04/21/2017 [facility] Diastolic (mm Hg) 58 04/21/2017 [facility] Systolic (mm Hg) 109 04/21/2017 [facility] Diastolic (mm Hg) 56 04/21/2017 [facility] Respitory Rate 12 04/21/2017 [facility] Height 165.1 cm 04/13/2017 [facility] Weight 74.545 04/13/2017 [facility] BMI Calculated 27.35 04/13/2017 [facility] Temperature Oral (F) 97.4 F 04/13/2017 [facility] Heart Rate 80 04/13/2017 [facility] Systolic (mm Hg) 118 02/23/2017 [facility] Diastolic (mm Hg) 61 02/23/2017 [facility] Respitory Rate 32 02/23/2017 [facility] Respitory Rate 28 02/23/2017 [facility] Systolic (mm Hg) 109 02/23/2017 [facility] Diastolic (mm Hg) 60 02/23/2017 [facility] Systolic (mm Hg) 109 02/23/2017 [facility] Diastolic (mm Hg) 61 02/23/2017 [facility] Respitory Rate 23 02/23/2017 [facility] Temperature Oral (F) 97.4 F 02/16/2017 [facility] Heart Rate 72 02/16/2017 [facility] BMI Calculated 28.02 02/16/2017 [facility] Weight 76.364 02/16/2017 [facility] Height 165.1 cm 02/16/2017 [facility] Weight 159 08/12/2015 [id number]. [id number] Height 64.4 08/12/2015 2.16.840.1.653818. 4.391.11.64786 Temperature Oral (F) 97.6 F 08/12/2015 2.16.840.1.078464. 4.391.11.53934 Heart Rate 93 08/12/2015 2.16.840.1.473171. 4.391.11.29219 Diastolic (mm Hg) 63 08/12/2015 2.16.840.1.692994. 4.391.11.46603 Systolic (mm Hg) 114 08/12/2015 2.16.840.1.546332. 4.391.11.31338 Systolic (mm Hg) 102 08/07/2015 [facility] Diastolic (mm Hg) 66 08/07/2015 [facility] Temperature Oral (F) 97.6 F 08/07/2015 [facility] Respitory Rate 16 08/07/2015 [facility] Heart Rate 77 08/07/2015 [facility] Respitory Rate 15 08/07/2015 [facility] Temperature Oral (F) 97.4 F 08/07/2015 [facility] Heart Rate 81 08/07/2015 [facility] Systolic (mm Hg) 100 08/07/2015 [facility] Diastolic (mm Hg) 66 08/07/2015 [facility] Systolic (mm Hg) 115 08/07/2015 [facility] Diastolic (mm Hg) 73 08/07/2015 [facility] Heart Rate 83 08/07/2015 [facility] Respitory Rate 16 08/07/2015 [facility] Temperature Oral (F) 97.4 F 08/07/2015 [facility] BMI Calculated 26.89 08/06/2015 [facility] Weight [...] 16 04/20/2014 [facility] Heart Rate 92 04/20/2014 [facility] Temperature Oral (F) 98.2 F 04/20/2014 [facility] Systolic (mm Hg) 109 04/20/2014 [facility] Diastolic (mm Hg) 70 04/20/2014 [facility] Heart Rate 90 04/20/2014 [facility] Temperature Oral (F) 97.9 F 04/20/2014 [facility] [...] 03/13/2014 [facility] Systolic (mm Hg) 113 03/13/2014 [facility] Diastolic (mm Hg) 54 03/13/2014 [facility] Temperature Oral (F) 97.6 F 03/06/2014 [facility] Height 165.1 cm 03/06/2014 [facility] Weight 65.909 03/06/2014 [facility] BMI Calculated 24.18 03/06/2014 [facility] Weight 149 02/02/2014 [facility] Temperature [...] Number For Provider Date Date Visit Outpatient [id number] COLON PING NORMAN 09/14 Active [facility] Outpatient [id number] 153.9 PING NORMAN 09/20 Active [facility] Bedded [id number] [facility] 03/[facility] 03/13 [facility] Outpatient 0 [facility] Office [id number] Dakota Michele, 03/23 03/23 [id number] General Surgery 350 [facility] Outpatient [id number] Ping Norman 03/24 03/25 [facility] Lab Report [id number] Dakota Michele, 03/26 03/26 [place] [address] [facility] Lab Report [id number] odoros 04/12 04/12 [place] 24367 ian Medical MD [facility] OBS [id number] Dakota Michele 04/18 04/20 [place] Observation [facility] Office [id number] Dakota Michele, 04/27 04/27 [place] Visit [id number] [facility] SE General Surgery [facility] OP [id number] Ping Norman 08/05 09/04 [place] Recurring [facility] OBS [id number] Van 08/06 08/07 [place] Observation 3 [facility] [id number] 08/12 08/12 2.16.840 Medical [id number] /2014 .1.42178 Group [id number] 3.4.391. 3b4 11.24227 Outpatient [id number] [facility] 0 VOLOY [place] Outpatient [id number] [facility]/15 Active [facility] 1 VOLOYIAN [place] Outpatient [id number] [facility] 02/23 Active [facility] 3 VOLOY [place] Outpatient [id number] [facility] 02/23 Active [facility] 2 VOL [facility]ded [id number] [facility] 02/[facility] 02/23 [place] Out[facility] 4 Volian /2016 [facility] Outpatient [id number] [facility] 03/04 03/05 [facility] 5 Voloyiannis /2016 [facility] Outpatient [id number] NINO [facility] 03/[address] [facility] [place] Outpatient [id number] [facility] 04/[address] [facility] VOLOY [facility] Surgery [id number] [facility] 04/21 04/21 [place] 7 Voloyiannis /2016 [facility] Outpatient [id number] ROMAN FOSTER 05/12 Active [facility] [place] Outpatient [id number] NINO WYPROSPER 05/17 Active [facility] [place] Outpatient [id number] NURSE VISIT 06/22 [facility] Day Surgery [id number] Nino [facility] 08/03 08/03 [facility] Outpatient [id number] NINO WILSON 08/26 Active [facility] [place] Outpatient [id number] JOVANA CUI 08/26 Active [facility] Ambulatory [id number] Jovana Karli 08/26 08/26 Urology Pre-Reg [facility] Outpatient [id number] Nino [facility] 08/26 08/27 Urology [facility] Outpatient [id number] NINO [facility] 09/[address] [facility] Outpatient [id number] Nino [facility] 09/27 09/28 Urology [facility] Outpatient [id number] NINO [facility] 01/14 [facility] Ambulatory [id number] Nino [facility] 01/14 01/14 Urology Pre-Reg [facility] Procedures Procedure Code Date Perfomer Comments Source Cystourethroscopy, 86961 Medical with removal of 7 Group foreign body, calculus, or ureteral stent from urethra or bladder (separate procedure); simple Hernia repair [id number] [facility] 4 Hernia repair [id number] Medical 4 Group Cannulation of [id number] [facility] [id number] 1994 [facility] catheterization<sup>1 </sup> Cholecystectomy [id number] [facility] Colonoscopy [id number] [facility] Hysterectomy [id number] [facility] Knee [id number] 2011 [facility] replacement<sup>2</red p> Operation [id number] [facility] Partial resection of [id number] [facility] colon Cannulation of [id number] Medical [facility] Cardiac [id number] 1994 Medical catheterization<sup>1 Group </sup> Cataract extraction [id number] Medical and insertion of Group intraocular lens Cholecystectomy 04266679 Medical Group Colonoscopy [id number] Medical Group Hysterectomy [id number] Medical Group Knee [id number] 2011 Medical replacement<sup>2</red Group p> Operation [id number] Medical Group Partial resection of [id number] Medical colon Group Cataract extraction [id number] [facility] and insertion of intraocular lens Assessment and Plan Assessment and Plan Date Source Extracted from:Title: History and Physical 08/03/2017 [facility] Author: Nino Wilson MD Date: 08/03/17 Renal calculi Extracted from:Title: Clinical Document 04/21/2017 [facility] Author: Galdino Ureña MD Date: 04/21/17 PREOPERATIVE DIAGNOSIS: Personal history of colon cancer. POSTOPERATIVE DIAGNOSIS: Personal history of colon cancer. PROCEDURE: Port-A-Cath removal. SURGEON: Dr. Ureña. CAFETERIA CLERK: None. ANESTHESIA: General. IV FLUIDS: 200 mL. URINE OUTPUT: No Otero. EBL: 5 mL. SPECIMENS: Port-A-Cath for identification. FINDINGS: Normal anastomosis. COMPLICATIONS: None. COUNTS: Needle, sponge and correct x 2. INDICATIONS FOR PROCEDURE: The patient is a 86-year-old male who completed postoperative chemotherapy for her history of colon adenocarcinoma. She understands her condition, the operative procedure plan, the risk/benefit ratio an d potential risks for complications limited to pain, bleeding, infection, damage to surrounding organs and structures, need for further procedures and surgeries and perioperative cardiopulmonary risks. Informed consent was obtained. All questions were answered to her satisfaction. PROCEDURE IN DETAIL: The patient was brought to the operating room, placed on the table in the supine position. General endotracheal anesthesia was induced successfully and the chest was prepped and draped in the usual laura dard sterile fashion. We made a 3-cm incision over the previous scar in the left upper chest with a #15-blade scalpel and entered via the adipose tissue and identified and removed the anchoring Prolene sutures at the Port-A-Cath and removed the Port-A-Cath with the tubing system and passed to pathology for identification. The epithelialize capsule was cauterized to obtain hemostasis. We placed a 2- 0 Vicryl in adpkth-[id number] fashion at the site of the Port-A-Cath insertion site. We applied pressure for 5 minutes. There was no evidence of bleeding, we subsequently approximated the subcutaneous e dges with 3-0 Vicryl in inverted interrupted fashion, and the skin closure was performed with 4-0 Monocryl in a subcuticular running fashion. Dermabond was applied and 10 mL of 0.25% Marcaine with epinephrine local anesthesia was injected. Extracted from:Title: Clinical Document Author: Roman Foster, MPH, PA-C Date: 04/21/17 Assessment/Plan Recommend to proceed with PAC removal and she desires to proceed The patient agrees to proceed with the procedure. Risks, benefits and alternatives to the procedure were discussed in great detail. The patient will schedule the procedure in the near future. All ques tions were answered to the patients satisfaction Extracted from:Title: preop 02/23/2017 [facility] Author: Roman Foster, MPH, PA-C Date: 02/23/17 Assessment/Plan .Hx of malignant neoplasm of colon I recommend to proceed with colonsocopy w/ MAC as she is due for her anniversary screening, and her CEA continues toincreaseand she agrees We had a thorough discussion regarding the colonoscopy procedure. The risks, benefits, and alternatives of the procedure were discussed in detail. Some of the risks discussed included, but were not li mited to bleeding, infection, and perforation. The statistical data reviewed included the report of approximately 1 in 1000 cases of perforation and 3 in 1000 cases of bleeding. The importance of cessat ion of aspirin use or any other blood thinner was also discussed. In addition the colonoscopy prep was reviewed and a copy of the preparation handout was given. All questions were answered to the patien t's satisfaction and the patient agrees to proceed. The pt was seen and examined together by Roman Mason and Dr. Galdino Ureña, who provided a uyle-sw-kiht visit and performed the physical exam, assessment and plan, and the note transcribed by Roman Mason total exam time, coordination of care, education >20 minutes [3] Extracted from:Title: Clinical Document 08/07/2015 [facility] Author: Van Luu MD Date: 08/06/15 Chart reveiwed. Patient seen and examined. WIll continue to follow. Extracted from:Title: Clinical Document 04/20/2014 [facility] Author: Dakota Michele MD Date: 04/19/14 Surgery Progress Note Attending: Dakota Michele MD Service: Plastic Surgery Service Code status: None Specified=FULL CODE Reason for Admission: 553.2 Working DRG: None Documented Isolation: None Documented Consulting Physicians: Dakota Michele MD Office: MSO: [id number] Service: General Surgery SUBJECTIVE: Doing OK. Still slow to get up and out of bed. Pain well controlle dothewise with pain meds. COmplains of some chest congestion and coughing OBJECTIVE and EXAM: General: AAOx3 HEENT: AT, NC, PERRLA, no scleral icterus CARDIAC: rrr PULM: CTA B, equal excursion B ABD: soft ND, TTP umbilicus, no R/G, no organomegaly EXT: no E/C/C, 2+ pulses in all 4 ext NEURO: grossly intact, CN 2-12 intact ASSESSMENT: 1. Incisional hernia 2. Hx Stage III colon cancer, status post chemotherapy. 3. Coronary artery disease. 4. Peripheral vascular disease. 5. Hepatitis C cirrhosis. PLAN: 1. CXR to eval cough 2. Use IS 3. Out of bed, ambulate 4. Diet as tolerated, hep lock IV 5. Hopeful DC in AM Vitals and Temp: Vitals Tmp(F) Pulse BP RR SpO2 FIO2 04/19 08:40 ---- --- ----- 16 99 21% 04/19 08:37 ---- 92 103/65 16 --- --- 04/19 07:57 98.1 97 91/57 16 90 --- 04/19 04:00 97.7 85 91/58 16 --- --- 04/19 00:00 97.6 80 97/60 16 --- --- 24 Hr Tmax: 98.1F (36.72c) at 04/19 07:57 Vital Signs are the last 5 in the past 48 hours. Labs (Last four charted values) WBC 4.6 (APR 13) Hgb 12.1 (APR 13) Hct 36.7 (APR 13) Plt L 76 (APR 13) Na 144 (APR 13) K L 3.4 (APR 13) CO2 28 (APR 13) Cl 106 (APR 13) Cr 0.9 (APR 13) BUN 8 (APR 13) Glucose Random 71 (APR 13) Ca 8.8 (APR 13) Scheduled Meds (1): 04/18/14 docusate (docusate sodium 100 mg oral capsule) 100 mg PO BID Extracted from:Title: Clinical Document Author: Dakota Michele MD Date: 03/23/14 Referring Provider: Galdino Ureña MD Primary Provider: Erika Chavez MD CC: incisional hernia. History of Present Illness: Oncologist - Dr. Marlyn Norman; Wafer Fabrication Operator - Dr. Angel Mike ............Sharifa Tatum March 23, 2014 11:01 AM Thank you for allowing me to participate in the care of this patient 83 year old lady comes for evaluation of a hernia a tthe umbilicus. Associate with pain, sharp in nature, mild to moderate, worse with exertion, improved with rest. She has a Hx of colon cancer 3 years ago and underwent resection and now appears to be cancer free as her last scope is negative and latest PET scan also normal. another PET is pending Past Medical History: Reviewed history from 02/02/2014 and no changes required: anemia arthritis blood transfusion - 04/2011 blood clots cataracts chemotherapy colon polyps Bronchitis Umbilical Hernia Pneumonia Tonsillitis Liver Dz - Sclerosis Hepatitis Hypotension Past Surgical History: Reviewed history from 06/09/2011 and no changes required: cataracts tonsillectomy Lap zulema back surgery knee Replacement - 12/2011 colonoscopy <5yrs Exc Colon Tumor - 05/21/2013 hysterectomy- vaginal Family History Summary: Father (biol.) - Has Family History of Heart Disease - Entered On: 03/23/2014 Mother (biol.) - Has Family History of Diabetes - Entered On: 03/23/2014 Sister (full) - Has Family History of Breast Cancer - Entered On: 03/23/2014 Brother (full) - Has Family History of Arthritis - Entered On: 03/23/2014 Mother (biol.) - Has Family History of Arthritis - Entered On: 03/23/2014 Sister (full) - Has Family History of Arthritis - Entered On: 03/23/2014 Risk Factors: Smoked Tobacco Use: Never smoker Smokeless Tobacco Use: Never Passive smoke exposure: no Drug use: no Caffeine use: 1 cup a day drinks per day Alcohol use: no Exercise: no Seatbelt use: 100 % Review of Systems General Denies fever, chills and sweats. Eyes Denies double vision and blurred vision. ENT Denies hoarseness and sore throat. CV Denies difficulty breathing at night and chest pain. Resp Denies cough and shortness of breath. GI Complains of abdominal pain. Denies nausea and vomiting. Denies urinary frequency and urinary urgency. MS Denies stiffness and arthritis. Derm Denies itching and rash. Neuro Denies numbness and tingling. Psych Denies anxiety and depression. Endo Denies cold intolerance and heat intolerance. Heme Denies bleeding and abnormal bruising. Vital Signs: Patient Profile: 83 Years Old Female Height: 65 inches Weight: 146 pounds BMI: 24.38 BSA: 1.73 Temp: 97.6 degrees F oral Pulse rate: 90 / minute BP sittin / 69 (left arm) Cuff size: regular Vitals Entered By: Sharifa Tatum (March 23, 2014 10:28 AM) Physical Exam General: well developed, well nourished, in no acute distress. Head: normocephalic and atraumatic. Eyes: PERRL/EOM intact, conjunctiva and sclera clear. Neck: no masses. Chest Wall: no deformities. Lungs: clear bilaterally to auscultation. Heart: regular rhythm and normal rate. Abdomen: Small incisional hernia noted at umbilicus, TTP, reducible, without guarding and without rebound. No organomegaly Msk: no deformity. Pulses: pulses normal in all 4 extremities. Extremities: no clubbing, cyanosis, edema, or deformity noted. Neurologic: no focal deficits, cranial nerves II-XII grossly intact. Skin: intact without lesions or rashes. Psych: alert and cooperative; normal mood and affect; normal attention span and concentration. Impression and Recommendations: Problem # 1: UMB HERNIA WITHOUT MENTION OBSTRUCTION/GANGRENE (ICD-553.1) ( [id number]-D05.9) Assessment: Unchanged Will offer repair as she desires intervention Wll request cardiac clearance Onel DICKINSON with this latest PET to reaffirt cancer free state Discussed case with referring MD Orders: Office Visit, [facility] III - [id number] ([id number]) Problem # 2: CARCINOMA, ASCENDING COLON (ICD-153.6) (LMI74-L56.2) Assessment: Improved Post excision and allears to be disease free Orders: Office Visit, [facility] - 86959 ([id number]) Patient Instructions: 1) Cardiac eval for pre op clearance 2) No heavy lifting voer 25 lbs from now until one month post op 3) Bring PET results from Dr. Norman's office Did you e-prescribe during this visit? No Electronic prescriptions were not sent during this visit. Plan of Care No Data Provided for This Section Social History Social History Date Source Social History TypeResponse 05/24/2017 [facility] Substance Abuse Use: None. Alcohol Never Smoking Status Never smoker; Type: Cigarettes; Exposure to Tobacco Smoke None; Cigarette Smoking Last 365 Days No; Reg Smoking Cessation Counseling No Social History TypeResponse 05/24/2017 [facility] Substance Abuse Use: None. Alcohol Never Smoking Status Never smoker; Type: Cigarettes; Exposure to Tobacco Smoke None; Cigarette Smoking Last 365 Days No; Reg Smoking Cessation Counseling No entered on: 08/03/17 Social History ElementQualifiersDate Reported 08/12/2015 [id number] Tobacco Use: .[id number] . Are you a: never smoker Aug 12, 2015 Use of recreational / street drugs? . Answer: No Aug 12, 2015 Marital Status: . Aug 12, 2015 Caffeine intake? . Status: Yes, What type: Coffee, Tea Aug 12, 2015 Do you exercise? . Answer: No Aug 12, 2015 Do you drink alcohol? . Status: No Aug 12, 2015 Travel outside [place]: . no Aug 12, 2015 Occupation: . RETIRED Aug 12, 2015 Family History No Data Provided for This Section Advance Directives No Data Provided for This Section Functional Status No Data Provided for This Section
--- OUTSIDE RECORDS SUMMARY | 2019-03-04 09:18 | XMS REPORT | CCD ---
:1930 Author Organization [facility] Care Team Providers Name Role Phone Marlyn Ceballos Consulting Provider Allergies, Adverse Reactions, Alerts Substance Reaction Status morphine Active Problem List Condition Effective Dates Status CAD - Coronary artery disease Active Cancer of colon 05/10/2011 Active Cirrhosis of liver Active Esophageal varices Active Hepatitis C Active Pneumonia Active
--- OUTSIDE RECORDS SUMMARY | 2019-03-04 09:18 | XMS REPORT | CCD ---
:1930 Author Organization [facility] Care Team Providers Name Role Phone Marlyn Ceballos Referring Provider Allergies, Adverse Reactions, Alerts Substance Reaction Status morphine Active Problem List Condition Effective Dates Status CAD - Coronary artery disease Active Cancer of colon 05/10/2011 Active Cirrhosis of liver Active Esophageal varices Active Hepatitis C Active Pneumonia Active
--- OUTSIDE RECORDS SUMMARY | 2019-03-04 09:19 | XMS REPORT | Continuity of Care Document ---
:1930 Author Organization [facility] Care Team Providers Name Role Phone MD Michele Hoang Unavailable Unavailable Insurance Providers Payer name Policy type / Policy ID Covered democrat ID Policy Montoya Coverage type [place]IC[place]: [employer] AARP HEALTHCARE OPTIONS (MEDICARE SUPPLEMENT AARP HEALTHCARE [...] Location Date Lab Report Dakota Michele MD [facility] Mar 26, 2014 Allergies, Adverse Reactions, Alerts [...]
--- OUTSIDE RECORDS SUMMARY | 2019-03-04 09:19 | XMS REPORT | Continuity of Care Document ---
:1930 Author Organization [facility] Care Team Providers Name Role Phone MD Michele Hoang Unavailable Unavailable Insurance Providers Payer name Policy type / Policy ID Covered libertarian ID Policy Montoya Coverage type MEDIC[place]: [employer] AARP HEALTHCARE OPTIONS (MEDICARE SUPPLEMENT AARP HEALTHCARE [...] Location Date Office Visit Dakota Michele MD [facility] Apr 27, 2014 Surgery 350 [...]
--- OUTSIDE RECORDS SUMMARY | 2019-03-04 09:19 | XMS REPORT | Continuity of Care Document ---
:1930 Author Organization [facility] Care Team Providers Name Role Phone MD Michele Hoang Unavailable Unavailable Insurance Providers Payer name Policy type / Policy ID Covered alliance party ID Policy Montoya Coverage type MEDICARE B-[place]: [employer] AARP HEALTHCARE OPTIONS (MEDICARE SUPPLEMENT AARP HEALTHCARE [...] Location Date Office Visit Dakota Michele MD [facility] Mar 23, 2014 Surgery [...]
--- OUTSIDE RECORDS SUMMARY | 2019-03-04 09:19 | XMS REPORT | Continuity of Care Document ---
:1930 Author Organization [facility] Care Team Providers Name Role Phone MD Niranjan, Galdino Unavailable Unavailable Insurance Providers Payer name Policy type / Policy ID Covered libertarian ID Policy Montoya Coverage type MEDICARE B-[place]: [employer] AARP HEALTHCARE OPTIONS (MEDICARE SUPPLEMENT AARP HEALTHCARE [...] Location Date Lab Report Galdino Ureña MD [facility] Apr 12, 2014 Allergies, Adverse Reactions, [...]
--- OUTSIDE RECORDS SUMMARY | 2019-03-04 09:20 | XMS REPORT ---
:1930 Author Organization [employer] Care Team Providers Name Role Phone Belkis Luuad Provider Role Unavailable Allergies, Adverse Reactions, Alerts Substance Reaction Event Type Adhesive Tape rash Drug Allergy Morphine Sulfate Info Not Available Drug Allergy Encounters Encounter Location Date Unknown [facility] Aug 12, 2015 Problems Problem Type Condition [...] End Status Dosage Date Date Propranolol HCl [facility] 82628-67 20 mg Orally Active 1 tablet 73-00 daily Gabapentin [facility] 26457-13 300 MG Orally Active 1 capsule 39-19 twice a day (bid) B-12 [facility] 56356-06 2500 MCG Active Unknown 92-72 Sublingual Ocuvite [facility] 02441-64 Orally daily Active 1 tablet 87-60 Lasix [facility] 74950-55 40 MG Orally Active 1 tablet 60-13 Once a day Ciprofloxacin [facility] 99464-40 500 MG/5ML (10%) Active 5 ml 93-01 Orally Twice a day [facility] 54143[facility]99 25 MG Orally Active 1 tablet 03-11 daily Caltrate 600+D [facility] 70683-78 600-400 MG-UNIT Active 1 tablet 86-00 Orally [...]
--- OUTSIDE RECORDS SUMMARY | 2019-03-04 09:20 | XMS REPORT ---
:1930 Author [facility] Address [address] [place] [address] Care Team Providers Name Role Phone MARY [...] Value Reference Range Comments ALPHA-FETOPROTEIN (BEAKER) (test iyly=3458) 2.9 ng/mL <10.0 HEPATIC FUNCTION [id number] 16:38:00 Test Item Value Reference Range Comments TOTAL PROTEIN (BEAKER) (test wjdr=355) 9.0 gm/dL 6.0-8.3 ALBUMIN (BEAKER) (test vuhc=8686) 2.8 g/dL 3.5-5.0 BILIRUBIN TOTAL (BEAKER) (test veip=510) 1.2 mg/dL 0.2-1.2 BILIRUBIN DIRECT (BEAKER) (test spik=835) 0.7 mg/dL 0.1-0.5 ALKALINE PHOSPHATASE (BEAKER) (test fqiy=519) 111 U/L 40-150 AST (SGOT) (BEAKER) (test twuj=786) 31 U/L 5-34 ALT (SGPT) (BEAKER) (test wxbq=629) 12 U/L 6-55 BASIC METABOLIC [id number] 16:38:00 Test Item Value Reference Range Comments SODIUM (BEAKER) (test 133 meq/L 136-145 jynl=605) POTASSIUM (BEAKER) (test 4.0 meq/L 3.5-5.1 shux=339) CHLORIDE (BEAKER) (test 100 meq/L 98-107 enza=359) CO2 (BEAKER) (test 27 meq/L 22-29 dotq=255) BLOOD UREA NITROGEN 20 mg/dL 7-21 (BEAKER) (test fdlk=026) CREATININE (BEAKER) (test 1.07 mg/dL 0.57-1.25 xmww=025) GLUCOSE RANDOM (BEAKER) 71 mg/dL 70-105 (test cflq=430) CALCIUM (BEAKER) (test 9.4 mg/dL 8.4-10.2 fpau=692) EGFR (BEAKER) (test 49 mL/min/1.73 sq m ESTIMATED GFR IS NOT hfkm=4005) ACCURATE CREATININE CLEARANCE IN PREDICTING GLOMERULAR FILTRATION RATE. ESTIMATED GFR IS NOT APPLICABLE FOR DIALYSIS PATIENTS. [id number] 16:33:00 Test Item Value Reference Range Comments AMMONIA (BEAKER) (test qfmd=858) 40 mol/L 18-72 PROTHROMBIN [id number] 16:29:00 Test Item Value Reference Range Comments PROTIME (BEAKER) (test hxmc=745) 16.5 seconds 11.7-14.7 INR (BEAKER) (test plhm=214) 1.3 <=5.9 RECOMMENDED COUMADIN/WARFARIN INR THERAPY RANGESSTANDARD DOSE: 2.0 - 3.0 Includes: PROPHYLAXIS forvenous thrombosis, systemic embolization; TREATMENT for venous thrombosis and/or pulmonary embolus.HIGH RISK: Target INR is 2.5-3.5 for patients with mechanical heart valves.CBC W/PLT COUNT & AUTO [id number] 16:22:00 Test Item Value Reference Range Comments WHITE BLOOD CELL COUNT (BEAKER) (test mjul=394) 5.0 K/ L 3.5-10.5 RED BLOOD CELL COUNT (BEAKER) (test dyyo=577) 3.39 M/ L 3.93-5.22 HEMOGLOBIN (BEAKER) (test fcsw=958) 10.7 GM/DL 11.2-15.7 HEMATOCRIT (BEAKER) (test vnbs=850) 33.1 % 34.1-44.9 MEAN CORPUSCULAR VOLUME (BEAKER) (test kubf=433) 97.6 fL 79.4-94.8 MEAN CORPUSCULAR HEMOGLOBIN (BEAKER) (test 31.6 pg 25.6-32.2 xumv=943) MEAN CORPUSCULAR HEMOGLOBIN CONC (BEAKER) (test 32.3 GM/DL 32.2-35.5 uxyn=898) RED CELL DISTRIBUTION WIDTH (BEAKER) (test 15.0 % 11.7-14.4 rbpi=947) PLATELET COUNT (BEAKER) (test zysj=350) 98 K/CU MM 150-450 MEAN PLATELET VOLUME (BEAKER) (test uras=185) 10.0 fL 9.4-12.3 NUCLEATED RED BLOOD CELLS (BEAKER) (test 0 /100 WBC 0-0 qyny=148) NEUTROPHILS RELATIVE PERCENT (BEAKER) (test 71 % gmvx=236) LYMPHOCYTES RELATIVE PERCENT (BEAKER) (test 14 % fksh=893) MONOCYTES RELATIVE PERCENT (BEAKER) (test 12 % ydbg=180) EOSINOPHILS RELATIVE PERCENT (BEAKER) (test 2 % lbgj=795) BASOPHILS RELATIVE PERCENT (BEAKER) (test 1 % movp=720) NEUTROPHILS ABSOLUTE COUNT (BEAKER) (test 3.51 K/ L 1.56-6.13 iqem=292) LYMPHOCYTES ABSOLUTE COUNT (BEAKER) (test 0.69 K/ L 1.18-3.74 evxg=310) MONOCYTES ABSOLUTE COUNT (BEAKER) (test kvzu=725) 0.62 K/ L 0.24-0.36 EOSINOPHILS ABSOLUTE COUNT (BEAKER) (test 0.10 K/ L 0.04-0.36 fcuh=559) BASOPHILS ABSOLUTE COUNT (BEAKER) (test ilrs=114) 0.04 K/ L 0.01-0.08 IMMATURE GRANULOCYTES-RELATIVE PERCENT (BEAKER) 0 % 0-1 (test mjrw=1352) ALPHA FETOPROTEIN (AFP), TUMOR [id number] 17:15:00 Test Item Value Reference Range Comments ALPHA-FETOPROTEIN (BEAKER) (test hxjd=9523) 3.3 ng/mL <10.0 [id number] 16:34:00 Test Item Value Reference Range Comments MAGNESIUM (BEAKER) (test xgju=777) 1.8 mg/dL 1.6-2.6 BASIC METABOLIC [id number] 16:34:00 Test Item Value Reference Range Comments SODIUM (BEAKER) (test 133 meq/L 136-145 psoz=184) POTASSIUM (BEAKER) (test 3.9 meq/L 3.5-5.1 naug=805) CHLORIDE (BEAKER) (test 99 meq/L 98-107 nfeg=419) CO2 (BEAKER) (test 25 meq/L 22-29 imey=657) BLOOD UREA NITROGEN 12 mg/dL 7-21 (BEAKER) (test aebr=282) CREATININE (BEAKER) (test 0.97 mg/dL 0.57-1.25 nxci=778) GLUCOSE RANDOM (BEAKER) 93 mg/dL 70-105 (test drrl=877) CALCIUM (BEAKER) (test 9.0 mg/dL 8.4-10.2 esyd=151) EGFR (BEAKER) (test 54 mL/min/1.73 sq m ESTIMATED GFR IS NOT pued=5748) ACCURATE CREATININE CLEARANCE IN PREDICTING GLOMERULAR FILTRATION RATE. ESTIMATED GFR IS NOT APPLICABLE FOR DIALYSIS PATIENTS. Specimen slightly ictericHEPATIC FUNCTION [id number] 16:34:00 Test Item Value Reference Range Comments TOTAL PROTEIN (BEAKER) (test hszz=448) 8.0 gm/dL 6.0-8.3 ALBUMIN (BEAKER) (test rmxt=6334) 3.0 g/dL 3.5-5.0 BILIRUBIN TOTAL (BEAKER) (test ewaf=451) 1.9 mg/dL 0.2-1.2 BILIRUBIN DIRECT (BEAKER) (test hvtm=351) 0.8 mg/dL 0.1-0.5 ALKALINE PHOSPHATASE (BEAKER) (test kpdb=705) 122 U/L 40-150 AST (SGOT) (BEAKER) (test oidj=008) 30 U/L 5-34 ALT (SGPT) (BEAKER) (test ofrd=380) 12 U/L 6-55 Specimen slightly ictericPROTHROMBIN [id number] 16:17:00 Test Item Value Reference Range Comments PROTIME (BEAKER) (test esft=057) 17.3 seconds 11.7-14.7 INR (BEAKER) (test kaet=863) 1.4 <=5.9 RECOMMENDED COUMADIN/WARFARIN INR THERAPY RANGESSTANDARD DOSE: 2.0 - 3.0 Includes: PROPHYLAXIS forvenous thrombosis, systemic embolization; TREATMENT for venous thrombosis and/or pulmonary embolus.HIGH RISK: Target INR is 2.5-3.5 for patients with mechanical heart valves.CBC W/PLT COUNT & AUTO [id number] 16:17:00 Test Item Value Reference Range Comments WHITE BLOOD CELL COUNT (BEAKER) (test yddd=929) 5.6 K/ L 3.5-10.5 RED BLOOD CELL COUNT (BEAKER) (test ojch=455) 3.83 M/ L 3.93-5.22 HEMOGLOBIN (BEAKER) (test foyb=880) 12.0 GM/DL 11.2-15.7 HEMATOCRIT (BEAKER) (test gasw=971) 36.8 % 34.1-44.9 MEAN CORPUSCULAR VOLUME (BEAKER) (test qcsi=912) 96.1 fL 79.4-94.8 MEAN CORPUSCULAR HEMOGLOBIN (BEAKER) (test 31.3 pg 25.6-32.2 ygwf=119) MEAN CORPUSCULAR HEMOGLOBIN CONC (BEAKER) (test 32.6 GM/DL 32.2-35.5 eypg=283) RED CELL DISTRIBUTION WIDTH (BEAKER) (test 15.9 % 11.7-14.4 ippo=566) PLATELET COUNT (BEAKER) (test greh=481) 83 K/CU MM 150-450 MEAN PLATELET VOLUME (BEAKER) (test lptm=040) 11.1 fL 9.4-12.3 NUCLEATED RED BLOOD CELLS (BEAKER) (test 0 /100 WBC 0-0 nsje=197) NEUTROPHILS RELATIVE PERCENT (BEAKER) (test 54 % uzjk=243) LYMPHOCYTES RELATIVE PERCENT (BEAKER) (test 36 % wcgh=442) MONOCYTES RELATIVE PERCENT (BEAKER) (test 8 % vksp=899) EOSINOPHILS RELATIVE PERCENT (BEAKER) (test 2 % qvfz=697) BASOPHILS RELATIVE PERCENT (BEAKER) (test 1 % gcww=319) NEUTROPHILS ABSOLUTE COUNT (BEAKER) (test 3.01 K/ L 1.56-6.13 vwno=082) LYMPHOCYTES ABSOLUTE COUNT (BEAKER) (test 1.98 K/ L 1.18-3.74 fifc=182) MONOCYTES ABSOLUTE COUNT (BEAKER) (test gowm=015) 0.44 K/ L 0.24-0.36 EOSINOPHILS ABSOLUTE COUNT (BEAKER) (test 0.10 K/ L 0.04-0.36 uvlp=537) BASOPHILS ABSOLUTE COUNT (BEAKER) (test qlho=224) 0.04 K/ L 0.01-0.08 IMMATURE GRANULOCYTES-RELATIVE PERCENT (BEAKER) 0 % 0-1 (test aduy=5440) ALPHA FETOPROTEIN (AFP), TUMOR [id number] 16:14:00 Test Item Value Reference Range Comments ALPHA-FETOPROTEIN (BEAKER) (test xozc=8556) 5.7 ng/mL <10.0 Effective 07/17/2014: Reference Range ChangeNew: <10.0 Previous: 0.0- [id number] 15:57:00 Test Item Value Reference Range Comments MAGNESIUM (BEAKER) (test cgql=571) 1.9 mg/dL 1.6-2.6 BASIC METABOLIC [id number] 15:57:00 Test Item Value Reference Range Comments SODIUM (BEAKER) (test 139 meq/L 136-145 inow=285) POTASSIUM (BEAKER) (test 4.5 meq/L 3.5-5.1 pknr=679) CHLORIDE (BEAKER) (test 105 meq/L 98-107 cxvq=566) CO2 (BEAKER) (test 25 meq/L 22-29 ycxj=730) BLOOD UREA NITROGEN 15 mg/dL 7-21 (BEAKER) (test tdhi=349) CREATININE (BEAKER) (test 0.95 mg/dL 0.57-1.25 ttme=496) GLUCOSE RANDOM (BEAKER) 86 mg/dL 70-105 (test teai=479) CALCIUM (BEAKER) (test 9.4 mg/dL 8.4-10.2 ypxz=307) EGFR (BEAKER) (test 56 mL/min/1.73 sq m ESTIMATED GFR IS NOT moep=5030) ACCURATE CREATININE CLEARANCE IN PREDICTING GLOMERULAR FILTRATION RATE. ESTIMATED GFR IS NOT APPLICABLE FOR DIALYSIS PATIENTS. Specimen slightly ictericHEPATIC FUNCTION [id number] 15:57:00 Test Item Value Reference Range Comments TOTAL PROTEIN (BEAKER) (test wtfs=909) 7.6 gm/dL 6.0-8.3 ALBUMIN (BEAKER) (test rgdl=2026) 3.2 g/dL 3.5-5.0 BILIRUBIN TOTAL (BEAKER) (test vebq=120) 1.8 mg/dL 0.2-1.2 BILIRUBIN DIRECT (BEAKER) (test yrba=848) 0.8 mg/dL 0.1-0.5 ALKALINE PHOSPHATASE (BEAKER) (test fuui=972) 112 U/L 40-150 AST (SGOT) (BEAKER) (test kvfg=773) 33 U/L 5-34 ALT (SGPT) (BEAKER) (test uyvk=264) 17 U/L 6-55 Specimen slightly ictericPROTHROMBIN [id number] 15:56:00 Test Item Value Reference Range Comments PROTIME (BEAKER) (test xzwt=721) 16.7 seconds 11.7-14.7 INR (BEAKER) (test wzsk=689) 1.4 <=5.9 RECOMMENDED COUMADIN/WARFARIN INR THERAPY RANGESSTANDARD DOSE: 2.0 - 3.0 Includes: PROPHYLAXIS forvenous thrombosis, systemic embolization; TREATMENT for venous thrombosis and/or pulmonary embolus.HIGH RISK: Target INR is 2.5-3.5 for patients with mechanical heart valves.CBC W/PLT COUNT & AUTO [id number] 15:56:00 Test Item Value Reference Range Comments WHITE BLOOD CELL COUNT (BEAKER) (test ylri=904) 5.3 K/ L 4.0-10.0 RED BLOOD CELL COUNT (BEAKER) (test cskf=968) 4.21 M/ L 4.00-5.00 HEMOGLOBIN (BEAKER) (test elrh=537) 14.1 GM/DL 12.0-15.0 HEMATOCRIT (BEAKER) (test ubaz=045) 41.7 % 36.0-45.0 MEAN CORPUSCULAR VOLUME (BEAKER) (test mfhj=129) 99.1 fL 82.0-99.0 MEAN CORPUSCULAR HEMOGLOBIN (BEAKER) (test 33.4 pg 27.0-33.0 xhad=117) MEAN CORPUSCULAR HEMOGLOBIN CONC (BEAKER) (test 33.7 GM/DL 32.0-36.0 hiim=045) RED CELL DISTRIBUTION WIDTH (BEAKER) (test 13.2 % 10.3-14.2 niwu=828) PLATELET COUNT (BEAKER) (test jmox=458) 77 K/CU MM 150-430 MEAN PLATELET VOLUME (BEAKER) (test vzsh=606) 8.4 fL 6.5-10.5 NUCLEATED RED BLOOD CELLS (BEAKER) (test 0 /100 WBC 0-0 fimh=805) NEUTROPHILS RELATIVE PERCENT (BEAKER) (test 54 % fbvv=561) LYMPHOCYTES RELATIVE PERCENT (BEAKER) (test 33 % qjxr=975) MONOCYTES RELATIVE PERCENT (BEAKER) (test 10 % pnfp=802) EOSINOPHILS RELATIVE PERCENT (BEAKER) (test 3 % ldnw=992) BASOPHILS RELATIVE PERCENT (BEAKER) (test 0 % dsed=530) NEUTROPHILS ABSOLUTE COUNT (BEAKER) (test 2.86 K/ L 1.80-8.00 lgea=281) LYMPHOCYTES ABSOLUTE COUNT (BEAKER) (test 1.77 K/ L 1.48-4.50 shnh=719) MONOCYTES ABSOLUTE COUNT (BEAKER) (test gung=495) 0.56 K/ L 0.00-1.30 EOSINOPHILS ABSOLUTE COUNT (BEAKER) (test 0.13 K/ L 0.00-0.50 gmea=298) BASOPHILS ABSOLUTE COUNT (BEAKER) (test duyd=535) 0.02 K/ L 0.00-0.20 0.74HCMQ-[id number] 11:05:00 Test Item Value Reference Range Comments POC-CREATININE (BEAKER) 0.9 mg/dL 0.6-1.[address] [facility] [facility] (test wjut=2216) [facility] [address] POC-EGFR (BEAKER) (test 59 mL/min/1.73M2 famr=6324)
--- NOTE | 2019-03-04 09:44 | ER ---
Nurse's Notes [facility] Name: Whitney Villalta Age: 88 yrs Sex: Female : 1930 Arrival Date: 03/04/2019 Time: 09:07 Bed 5 Private MD: Fareed Ballesteros H Diagnosis: Ascites-s/p paracentesis with draining wound Presentation: 03/04 09:19 Presenting complaint: Patient states: had paracentesis done yesterday morning with Dr. tomasz Ayala, puncture site has been leaking since yesterday afternoon, pt states they took off 4 L of fluid yesterday which is normal for her. Transition of care: patient was not received from another setting of care. Onset of symptoms was March 03, 2019. Risk Assessment: Do you want to hurt yourself or someone else? Patient reports no desire to harm self or others. Initial Sepsis Screen: Does the patient meet any 2 criteria? No. Patient's initial sepsis screen is negative. Does the patient have a suspected source of infection? No. Patient's initial sepsis screen is negative. Care prior to arrival: None. 09:19 Method Of Arrival: Wheelchair iw 09:19 Acuity: KELLY 4 iw Triage Assessment: 09:49 General: Appears in no apparent distress. comfortable, Behavior is calm, cooperative, bp appropriate for age. Pain: Denies pain. Historical: - Allergies: : adhesive tapes; iw 09: Morphine; iw - Home Meds: 09:26 docusate sodium 100 mg Oral cap 1 cap at bedtime [Active]; Ferrous Sulfate Oral daily iw [Active]; gabapentin 300 mg Oral cap 1 cap 3 times per day [Active]; lactulose 20 gram/30 mL Oral soln twice a day [Active]; Magnesium Oxide Oral twice a day [Active]; mupirocin 2 % topical oint twice a day [Active]; omeprazole 40 mg Oral cpDR every other day [Active]; Xifaxan 550 mg oral tab 1 tab 2 times per day [Active]; propylene glycol ophthalmic ophthalmic every 4 hours [Active]; - PMHx: 09:26 colon cancer; Liver disease; Lower extremity edema; Pneumonia; stage 3 cirrhosis; iw - Immunization history:: Adult Immunizations up to date. - Social history:: Smoking status: Patient/guardian denies using tobacco, Patient/guardian denies using alcohol, street drugs, The patient lives with family, with spouse. - Ebola Screening: : Patient negative for fever greater than or equal to 101.5 degrees Fahrenheit, and additional compatible Ebola Virus Disease symptoms Patient denies exposure to infectious person Patient denies travel to an Ebola-affected area in the 21 days before illness onset No symptoms or risks identified at this time. - Family history:: not pertinent. Screenin:50 Abuse screen: Denies threats or abuse. Denies injuries from another. Nutritional bp screening: No deficits noted. Tuberculosis screening: No symptoms or risk factors identified. Fall Risk None identified. Assessment: 09:49 Reassessment: PT D/C HOME VIA W/C WITH FAMILY, DX WITH ASCITES WITH DRAINING WOUND. bp Vital Signs: 09:26 BP 125 / 63; Pulse 82; Resp 16; Pulse Ox 99% on R/A; Pain 0/10; iw 09:48 BP 99 / 67; Pulse 80; Resp 14; Temp 97.6; Pulse Ox 96% ; bp ED Course: 09:07 Patient arrived in ED. mr 09:07 Fareed Ballesteros DO is Private Physician. mr 09:10 Marilyn Vaca MD is Attending Physician. ma2 09:21 Triage completed. iw 09:26 Arm band placed on. iw 09:40 Dressings: non-adherent dressing x 1 abdomen. bp 09:41 Avtar Barrett, RN is Primary Nurse. bp 09:50 Patient has correct armband on for positive identification. Bed in low position. Call bp light in reach. Side rails up X2. Adult w/ patient. 09:50 No provider procedures requiring assistance completed. Patient did not have IV access bp during this emergency room visit. Administered Medications: No medications were administered Outcome: 09:42 Discharge ordered by . ma2 09:51 Discharged to home via wheelchair, with family. bp 09:51 Condition: stable 09:51 Discharge instructions given to patient, family, Instructed on discharge instructions, follow up and referral plans. wound care, Demonstrated understanding of instructions, follow-up care, wound care. 10:02 Patient left the ED. bp Signatures: Anna Mcdermott mr Yue Solares RN RN Avtar Barrett RN RN bp Marilyn Vaca MD MD ma2 Corrections: (The following items were deleted from the chart) 09:19 Acuity: KELLY 3 iw iw 09:52 09:48 BP 99 / 67; Pulse 80bpm; Resp 14bpm; Pulse Ox 96%; bp bp
--- NOTE | 2019-03-04 09:44 | EDPHYS ---
Physician Documentation [facility] Name: Whitney Villalta Age: 88 yrs Sex: Female : 1930 Arrival Date: 03/04/2019 Time: 09:07 Bed 5 Private MD: Fareed Ballesteros H ED Physician Marilyn Vaca HPI: 03/04 09:37 This 88 yrs old Female presents to ER via Wheelchair with complaints of ma2 surgical site opened. 09:37 Onset: The symptoms/episode began/occurred gradually, 1 day(s) ago. Associated signs ma2 and symptoms: Pertinent negatives: anorexia, chest pain, constipation. Severity of pain: At its worst the pain was very mild in the emergency department the pain is unchanged. The patient has experienced similar episodes in the past. had therapeutic paracentesis yesterday here with continuous draining of ascitic fluid, mild, has had this before, she has no abd pain fever or skin changed . Historical: - Allergies: 09:26 adhesive tapes; iw 09:26 Morphine; iw - Home Meds: 09:26 docusate sodium 100 mg Oral cap 1 cap at bedtime [Active]; Ferrous Sulfate Oral daily iw [Active]; gabapentin 300 mg Oral cap 1 cap 3 times per day [Active]; lactulose 20 gram/30 mL Oral soln twice a day [Active]; Magnesium Oxide Oral twice a day [Active]; mupirocin 2 % topical oint twice a day [Active]; omeprazole 40 mg Oral cpDR every other day [Active]; Xifaxan 550 mg oral tab 1 tab 2 times per day [Active]; propylene glycol ophthalmic ophthalmic every 4 hours [Active]; - PMHx: 09:26 colon cancer; Liver disease; Lower extremity edema; Pneumonia; stage 3 cirrhosis; iw - Immunization history:: Adult Immunizations up to date. - Social history:: Smoking status: Patient/guardian denies using tobacco, Patient/guardian denies using alcohol, street drugs, The patient lives with family, with spouse. - Ebola Screening: : Patient negative for fever greater than or equal to 101.5 degrees Fahrenheit, and additional compatible Ebola Virus Disease symptoms Patient denies exposure to infectious person Patient denies travel to an Ebola-affected area in the 21 days before illness onset No symptoms or risks identified at this time. - Family history:: not pertinent. ROS: 09:37 Constitutional: Negative for fever, chills, and weight loss. ma2 09:37 All other systems are negative. Exam: 09:37 Constitutional: This is a well developed, well nourished patient who is awake, alert, ma2 and in no acute distress. Chest/axilla: Normal chest wall appearance and motion. Nontender with no deformity. No lesions are appreciated. Cardiovascular: Regular rate and rhythm with a normal S1 and S2. No gallops, murmurs, or rubs. Normal PMI, no JVD. No pulse deficits. Respiratory: Lungs have equal breath sounds bilaterally, clear to auscultation and percussion. No rales, rhonchi or wheezes noted. No increased work of breathing, no retractions or nasal flaring. Back: No spinal tenderness. No costovertebral tenderness. Full range of motion. Neuro: Awake and alert, GCS 15, oriented to person, place, time, and situation. Cranial nerves II-XII grossly intact. Motor strength 5/5 in all extremities. Sensory grossly intact. Cerebellar exam normal. Normal gait. 09:37 Abdomen/GI: Inspection: abdomen appears normal, distension, Bowel sounds: normal, Palpation: soft, nontender, Hernia: not appreciated, left mid abdomin para puncture wound small drains > drop every 1 min, 4x4 applied and did not get saturated during er stay, yet i offered to put a stitch, patient would like to give it another day or 2 and see if it heals spontaneously, return precaution given . Vital Signs: 09:26 BP 125 / 63; Pulse 82; Resp 16; Pulse Ox 99% on R/A; Pain 0/10; iw 09:48 BP 99 / 67; Pulse 80; Resp 14; Temp 97.6; Pulse Ox 96% ; bp MDM: 09:10 Patient medically screened. ma2 09:37 Differential diagnosis: draining ascites. Data reviewed: vital signs, nurses notes. ma2 Counseling: I had a detailed discussion with the patient and/or guardian regarding: the historical points, exam findings, and any diagnostic results supporting the discharge/admit diagnosis, the presence of at least one elevated blood pressure reading (>120/80) during this emergency department visit. Response to treatment: There is no appreciated change of the patient's symptoms at this time, the patient's symptoms have mildly improved after treatment. Administered Medications: No medications were administered Disposition: 03/04/19 09:42 Discharged to Home. Impression: Ascites - s/p paracentesis with draining wound . - Condition is Stable. - Discharge Instructions: Paracentesis. - Medication Reconciliation Form, Thank You Letter, Antibiotic Education, Prescription Opioid Use form. - Follow up: Private Physician; When: Tomorrow; Reason: Recheck today's complaints, Continuance of care. Signatures: Yue Solares RN KULDIP iw Avtar Barrett RN RN Marilyn Leblanc MD MD ma2 Corrections: (The following items were deleted from the chart) 10:02 09:42 03/04/2019 09:42 Discharged to Home. Impression: Ascites - s/p paracentesis with bp draining wound . Condition is Stable. Forms are Medication Reconciliation Form, Thank You Letter, Antibiotic Education, Prescription Opioid Use. Follow up: Private Physician; When: Tomorrow; Reason: Recheck today's complaints, Continuance of care. ma2
[2019-03-04 10:19] VITALS: BP 99/67; TEMP 97.6; O2SAT 96
== END 2019-03-04 10:02 | disposition home or self-care (01) ==
LOC: ER 09:04
DX: R18.8 Other ascites (principal); C18.9 Malignant neoplasm of colon, unspecified; Z88.5 Allergy status to narcotic agent; Z91.048 Other nonmedicinal substance allergy status
CPT/HCPCS: 99281

== ENCOUNTER 2019-04-07 08:53 | Day surgery (SDC) | payer OTHER ==
--- OUTSIDE RECORDS SUMMARY | 2019-04-07 08:55 | XMS REPORT | Clinical Summary ---
:1930 Author Organization [facility] Address [address] [place] [address] Care Team Providers Name Role Phone Kandy Castillo PA-C Physician Crutch Maker Unavailable Ankush Levine Referring Physician Fareed Ballesteros [...] infection 09/06/2014 Overview: SNOMED/[place] [id number] Last Assessment & Plan: Cirrhosis of liver [...] chronic hepatitis C infection (HCC) (Primary Dx); [facility], [facility] Screening for cancer; Hepatology Clinic E Encephalopathy; Abnormal breath sounds 07/11/2018 Telephone Xiao Cole RN other 05/31/2018 Telephone HepatXiao Cesar RN other 05/13/2018 Abstract Yvonne James MA 04/07/2018 Orders Only Hepatology Kandy Castillo, Screening for malignant neoplasm (Primary Dx); PA-C 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) 04/07/2018 Telephone Hepatology Kandy Castillo, Follow-up CARMINE after 04/06/2018 Family History Medical History Relation Name Comments [...] Taken Blood Pressure 94/60 08/10/2018 2:08 PM GRIEF COUNSELLOR Pulse 92 08/10/2018 2:08 PM GRIEF COUNSELLOR Temperature 36.3 C (97.4 F) 08/10/2018 2:08 PM GRIEF COUNSELLOR Respiratory Rate 16 08/10/2018 2:08 PM GRIEF COUNSELLOR Oxygen Saturation 98% 08/10/2018 2:08 PM GRIEF COUNSELLOR Inhaled Oxygen Concentration - - Weight 58.2 kg (128 lb 6.4 oz) 08/10/2018 2:08 PM GRIEF COUNSELLOR Height 165.1 cm (5' 5") 08/10/2018 2:08 PM GRIEF COUNSELLOR Body Mass Index 21.37 08/10/2018 2:08 PM GRIEF COUNSELLOR Plan of Treatment Not on file Procedures Procedure Name Priority Date/Time Associated Comments Diagnosis CBC W/PLT COUNT & Routine 08/10/2018 3:45 Hepatic cirrhosis Results for this AUTO DIFFERENTIAL PM GRIEF COUNSELLOR due to chronic procedure are in hepatitis C the results infection (HCC) section. Screening for cancer Encephalopathy AMMONIA Routine 08/10/2018 3:45 Hepatic cirrhosis Results for this PM GRIEF COUNSELLOR due to chronic procedure are in hepatitis C the results infection (HCC) section. Screening for cancer Encephalopathy ALPHA FETOPROTEIN Routine 08/10/2018 3:45 Hepatic cirrhosis Results for this (AFP), TUMOR MARKER PM GRIEF COUNSELLOR due to chronic procedure are in hepatitis C the results infection (HCC) section. Screening for cancer Encephalopathy PROTHROMBIN TIME/INR Routine 08/10/2018 3:45 Hepatic cirrhosis Results for this PM GRIEF COUNSELLOR due to chronic procedure are in hepatitis C the results infection (HCC) section. Screening for cancer Encephalopathy CBC W/PLT COUNT & Routine 08/10/2018 3:45 Hepatic cirrhosis Results for this AUTO DIFFERENTIAL PM GRIEF COUNSELLOR due to chronic procedure are in hepatitis C the results infection (HCC) section. Screening for cancer Encephalopathy HEPATIC FUNCTION Routine 08/10/2018 3:45 Hepatic cirrhosis Results for this PANEL PM GRIEF COUNSELLOR due to chronic procedure are in hepatitis C the results infection (HCC) section. Screening for cancer Encephalopathy BASIC METABOLIC PANEL Routine 08/10/2018 3:45 Hepatic cirrhosis Results for this (7) PM GRIEF COUNSELLOR due to chronic procedure are in hepatitis C the results infection (HCC) section. Screening for cancer Encephalopathy after 04/06/2018 Results CBC with platelet count + automated diff (08/10/2018 3:45 PM GRIEF COUNSELLOR) WBC 5.0 3.5 - 10.5 K/L [facility] RBC 3.39 (L) 3.93 - 5.22 M/L [facility] Hemoglobin 10.7 (L) 11.2 - 15.7 GM/DL [facility] Hematocrit 33.1 (L) 34.1 - 44.9 % [facility] MCV 97.6 (H) 79.4 - 94.8 fL [facility] MCH 31.6 25.6 - 32.2 pg [facility] MCHC 32.3 32.2 - 35.5 GM/DL [facility] RDW 15.0 (H) 11.7 - 14.4 % [facility] Platelets 98 (L) 150 - 450 K/CU MM [facility] MPV 10.0 9.4 - 12.3 fL [facility] nRBC 0 0 - 0 /100 WBC [facility] % Neutros 71 % [facility] % Lymphs 14 % [facility] % Monos 12 % [facility] % Eos 2 % [facility] % Baso 1 % [facility] # Neutros 3.51 1.56 - 6.13 K/L [facility] # Lymphs 0.69 (L) 1.18 - 3.74 K/L [facility] # Monos 0.62 (H) 0.24 - 0.36 K/L [facility] # Eos 0.10 0.04 - 0.36 K/L [facility] # Baso 0.04 0.01 - 0.08 K/L [facility] Immature Granulocytes-Relative 0 0 - 1 % [facility] Specimen Blood Performing Organization Address [facility] Phone Number [address] [address] [place] Alpha fetoprotein (AFP), tumor marker (08/10/2018 3:45 PM GRIEF COUNSELLOR) Alpha-Fetoprotein 2.9 <10.0 ng/mL [facility] Specimen Blood Performing Organization Address [facility] Cent[facility]oor Phone Number [address] [address] C[place] Pro-time/INR (08/10/2018 3:45 PM GRIEF COUNSELLOR) Protime 16.5 (H) 11.7 - 14.7 seconds [facility] INR 1.3 <=5.9 [facility] Specimen Blood Narrative Performed At RECOMMENDED COUMADIN/WARFARIN INR THERAPY [facility] RANGES STANDARD DOSE: 2.0 - 3.0 Includes: PROPHYLAXIS for venous thrombosis, systemic embolization; TREATMENT for venous thrombosis and/or pulmonary embolus. HIGH RISK: Target INR is 2.5-3.5 for patients with mechanical heart valves. Performing Organization Address City/[facility] Cent[facility]ode Phone Number [address] [address] C[place] Ammonia (08/10/2018 3:45 PM GRIEF COUNSELLOR) Ammonia 40 18 - 72 mol/L [facility] Specimen Blood Performing Organization Address City/[facility] Centercode Phone Number [address] [address] [place] Hepatic function panel (08/10/2018 3:45 PM GRIEF COUNSELLOR) Protein, Total 9.0 (H) 6.0 - 8.3 gm/dL [facility] Albumin 2.8 (L) 3.5 - 5.0 g/dL [facility] Total Bilirubin 1.2 0.2 - 1.2 mg/dL [facility] Bilirubin, Direct 0.7 (H) 0.1 - 0.5 mg/dL [facility] Alkaline Phosphatase 111 40 - 150 U/L [facility] AST 31 5 - 34 U/L [facility] ALT 12 6 - 55 U/L [facility] Specimen Blood Performing Organization Address City/[facility]/Zipcode Phone Number [address] [address] [place] Basic Metabolic Panel (08/10/2018 3:45 PM GRIEF COUNSELLOR) Sodium 133 (L) 136 - 145 meq/L [facility] Potassium 4.0 3.5 - 5.1 meq/L [facility] Chloride 100 98 - 107 meq/L [facility] CO2 27 22 - 29 meq/L [facility] BUN 20 7 - 21 mg/dL [facility] Creatinine 1.07 0.57 - 1.25 mg/dL [facility] Glucose 71 70 - 105 mg/dL [facility] Calcium 9.4 8.4 - 10.2 mg/dL [facility] EGFR 49Comment: ESTIMATED GFR IS mL/min/1.73 sq m [facility] NOT ACCURATE [facility] CLEARANCE IN PREDICTING GLOMERULAR FILTRATION RATE. ESTIMATED GFR IS NOT APPLICABLE FOR DIALYSIS PATIENTS. Specimen Blood Performing Organization Address City/State/Zipcode Phone Number [facility] [address] [place] [address] CENTER after 04/06/2018 Insurance Payer Benefit Plan / Group Subscriber ID Type Phone Address MEDICARE MEDICARE A B xxxxxxxxxxx Medicare MCR GENERIC MEDICARE xxxxxxxxx [employer] SUPPLEMENT/INDIVIDUAL SUPPLEMENT
--- OUTSIDE RECORDS SUMMARY | 2019-04-07 09:00 | XMS REPORT | Continuity of Care Document ---
:1930 Author Organization [employer] Care Team Providers Name Role Phone [employer] Unavailable Unavailable Problems Problem Status Onset Classification [...] Active Problem 04/24/2017 [facility]. Umbilical hernia5 Active Problem 01/17/2018 Data migrated Medical 014 from [facility] [place] 01/28/15. UMB HERNIA WITHOUT Active Condition 04/27/2014 Medical MENTION 014 Group OBSTRUCTION/GANGRE NE LARGE INTESTINE Active Condition 04/27/2014 Medical CANCER 012 Group SCREENING FOR Active Condition 04/27/2014 Medical COLON CANCER 012 Group Carcinoma of Active Problem 01/17/2018 Data migrated Medical ascending colon1 011 from [facility] [place] 01/28/15. CARCINOMA, Active Condition 04/27/2014 Medical ASCENDING COLON 011 Group Cancer of colon Active Problem 01/17/2018 Medical 011 Group,[facility] CH - Chronic Active Problem 04/24/2017 hepatitis [place] DVT (Confirmed) Resolved Problem 04/24/2017 [facility] Problem 01/17/2018 [...] Unspecified Active Diagnosis 08/26/2015 2.16.840.1. infectious disease [id number] Bacterial Active Diagnosis 08/26/2015 2.16.840.1. infection [id number] Other Active Diagnosis 08/26/2015 2.16.840.1. encephalopathy [id number] Esophageal varices Active Diagnosis 08/26/2015 2.16.840.1. [id number] Hepatic cirrhosis Active Diagnosis 08/26/2015 2.16.840.1. [id number] UTI Active Problem 08/26/2015 2.16.840.1. [id number] MALIGNANT MIGEL Active COLON NOS [place] 153.9 Active [place] HEPATOPULMONARY Active SYNDROME [place] HX OF COLONIC Active MALIGNANCY [place] URIN TRACT Active INFECTION NOS [place] INCISIONAL HERNIA Active [place] MALIGNANT NEOPLASM Active MH OF COLON, [place] UNSPECIFIED PERSONAL HISTORY Active MH OF MALIGNANT [place] NEOPLASM O CALCULUS OF KIDNEY Active [facility] Medications Medication Details Route Status Patient Ordering Order Source Instructions Provider Date Acetaminophen 2 tab, PO, Active 300 MG / Q6H, PRN 2016 [facility] Codeine Pain, X 7 Phosphate 30 MG day, # 56 Oral Tablet tab, 0 [Tylenol with Refill(s) Codeine #3] esmolol (ANES) Route: IV, Inactive Drug form: 2016 [facility] INJ, ONCE, Stop date: 08/03/17 13:22:00 PATIENT SERVICES REP ondansetron Route: IV, Inactive (ANES) Drug form: 2016 [facility] INJ, ONCE, Stop date: 08/03/17 13:07:00 PATIENT SERVICES REP propofol (ANES) Route: IV, Inactive Drug form: 2016 [facility] INJ, ONCE, Stop date: 08/03/17 13:07:00 PATIENT SERVICES REP lidocaine Route: IV, Inactive (ANES) Drug form: 2016 [facility] INJ, ONCE, Stop date: 08/03/17 13:07:00 PATIENT SERVICES REP ciprofloxacin Route: IV, Inactive (ANES) Drug form: 2016 [facility] INJ, ONCE, Stop date: 08/03/17 13:07:00 PATIENT SERVICES REP dexamethasone Route: IV, Inactive (ANES) Drug form: 2016 [facility] INJ, ONCE, Stop date: 08/03/17 13:07:00 PATIENT SERVICES REP fentaNYL (ANES) Route: IV, Inactive Drug form: 2016 [facility] INJ, ONCE, Stop date: 08/03/17 13:02:00 PATIENT SERVICES REP Calcium 1,000 mL, Inactive Chloride 0.0014 Rate: 25 2016 [facility] MEQ/ML / ml/hr, Infuse Potassium over: 40 hr, Chloride 0.004 Route: IV, MEQ/ML / Sodium Dosing Weight Chloride 0.103 74.091 kg, MEQ/ML / Sodium Total Volume: Lactate 0.028 1,000, Start MEQ/ML date: Injectable 08/03/17 Solution 12:12:00 PATIENT SERVICES REP, Duration: 30 day, Stop date: 09/02/17 12:11:00 PATIENT SERVICES REP, 1.86, m2 vancomycin Route: IV, Inactive (ANES) 1000 mg Drug form: 2016 [facility] INJ, Start date: 08/03/17 12:10:00 PATIENT SERVICES REP, Stop date: 08/03/17 13:10:00 PATIENT SERVICES REP Lactated Route: IV, Inactive Ringers Total Volume: 2016 [facility] Injection IV 1,000, Start (ANES) 1000 mL date: 08/03/17 12:10:00 PATIENT SERVICES REP, Stop date: 08/03/17 13:10:00 PATIENT SERVICES REP Ceftriaxone 1 gm, Route: No Longer IVPB, Q12H, Active 2016 [facility] Dosing Weight 74.091, kg, Start date: 08/02/17 21:00:00 PATIENT SERVICES REP, Duration: 24 hr, Stop date: 08/03/17 9:00:00 PATIENT SERVICES REP, ABX Indication: Urinary Tract Infection phenylephrine Route: IV, Inactive (ANES) Drug form: 2016 [facility] INJ, ONCE, Stop date: 04/21/17 10:51:00 CDT ondansetron Route: IV, Inactive (ANES) Drug form: 2016 [facility] INJ, ONCE, Stop date: 04/21/17 10:41:00 CDT dexamethasone Route: IV, Inactive (ANES) Drug form: 2016 [facility] INJ, ONCE, Stop date: 04/21/17 10:41:00 CDT ceFAZolin Route: IV, Inactive (ANES) Drug form: 2016 [facility] INJ, ONCE, Stop date: 04/21/17 10:41:00 CDT lidocaine Route: IV, Inactive (ANES) Drug form: 2016 [facility] INJ, ONCE, Stop date: 04/21/17 10:41:00 CDT propofol (ANES) Route: IV, Inactive Drug form: 2016 [facility] INJ, ONCE, Stop date: 04/21/17 10:41:00 CDT fentaNYL (ANES) Route: IV, Inactive Drug form: 2016 [facility] INJ, ONCE, Stop date: 04/21/17 10:41:00 CDT acetaminophen Route: IV, Inactive (ANES) (ANES) Drug form: 2016 [facility] INJ, Start date: 04/21/17 10:35:00 CDT, Stop date: 04/21/17 11:35:00 CDT sodium chloride Route: IV, Inactive 08/23/ MH 0.9% 500 ml INJ Total Volume: 2016 [facility] (ANES) 500, Start date: 04/21/17 10:08:00 CDT, Stop date: 04/21/17 11:08:00 CDT Calcium 1,000 mL, Inactive Chloride 0.0014 Rate: 25 2016 [facility] MEQ/ML / ml/hr, Infuse Potassium over: 40 hr, Chloride 0.004 Route: IV, MEQ/ML / Sodium Dosing Weight Chloride 0.103 74.545 kg, MEQ/ML / Sodium Total Volume: Lactate 0.028 1,000, Start MEQ/ML date: Injectable 04/21/17 Solution 9:53:00 CDT, Duration: 30 day, Stop date: 05/21/17 9:52:00 CDT Ocuvite 1 tab, PO, Active Daily, 0 2016 [facility] Refill(s) Furosemide 40 40 mg=1 tab, Active MG Oral Tablet PO, Daily, 0 2016 [facility] Refill(s) Vitamin D3 2000 2,000 Active intl units oral IntlUnit=1 2016 [facility] tablet tab, PO, Daily, 0 Refill(s) Albuterol 0.833 3 mL, Route: Inactive MG/ML / NEB, Drug 2016 [facility] Ipratropium Form: SOLN, [place] 0.167 Dosing Weight MG/ML Inhalant 76.364, kg, Solution ONCE, STAT, Start date: 02/23/17 9:22:00 CDT, Stop date: 02/23/17 9:22:00 CDTNotes: (Same as: Mirza) Sodium Chloride 500 mL, Rate: Inactive 0.154 MEQ/ML 25 ml/hr, 2016 [facility] Injectable Infuse over: Solution 20 hr, Route: IV, Dosing Weight 76.364 kg, Total Volume: 500, Start date: 02/23/17 9:22:00 CDT, Duration: 1 day, Stop date: 02/24/17 9:21:00 CDT Lasix 20 mg, 1 tab, No Longer Route: PO, Active 2014 [facility] Drug form: TAB, Daily, Dosing Weight 73.295, kg, Start date: 08/08/15 9:00:00, Duration: 30 day, Stop date: 09/06/15 9:00:00Notes: (Same as: Lasix) May cause GI upset. Give with food or milk. Spironolactone 12.5 mg, 0.5 No Longer tab, Route: Active 2014 [facility] PO, Drug form: TAB, Daily, Dosing Weight [...] 20 mL, Route: Inactive IVP, Start 2014 [facility] date: 08/07/15 12:19:00, Duration: 30 day, Stop date: 09/06/15 12:18:00, PRN Line FlushNotes: preservative free. sodium chloride 10 mL, Route: Inactive IVP, Start 2014 [facility] date: 08/07/15 12:18:00, Duration: 30 day, Stop [...] Inactive 100 MG Oral cap, Route: 2014 [facility] Capsule PO, Drug [Colace] form: CAP, Daily, Dosing Weight 73.295, kg, PRN Constipation, Start date: 08/07/15 11:09:00, Duration: 30 day, Stop date: 09/06/15 11:08:00Notes : (Same as: Colace) (Do Not Crush) Ibuprofen 400 mg, 1 Inactive tab, Route: 2014 [facility] PO, Drug form: TAB, ONCE, Dosing Weight 73.295, kg, PRN Headache 1-5, Start date: 08/06/15 21:10:00, Stop date: 08/06/15 21:10:00Notes : (Same as: Motrin) "Do Not Crush" Give with food. Lasix PO, Daily, 0 Active Refill(s) 2014 [facility] Rocephin 1 gm, Route: No Longer IVPB, Active 2014 [facility] [id number], Dosing Weight 73.295, kg, Start date: 08/06/15 9:00:00, Duration: 30 day, Stop date: 09/04/15 9:00:00Notes: (Same As: Rocephin). Use with 100 mL NS and infuse over 30 min MEDICATION WASTE Product Size: 1000 mg Product Wasted: ___ mg Lactulose 10 gm, 15 ml, Inactive Route: PO, 2014 [facility] Drug Form: SYRP, Dosing Weight 73.295, kg, ONCE, Start date: 08/06/15 3:49:00, Stop date: 08/06/15 3:49:00Notes: (Same as:Chronulac) Ondansetron 4 mg, 2 mL, No Longer Route: IVP, Active 2014 [facility] Drug form: INJ, Q6H, Dosing Weight 73.636, kg, PRN Nausea & Vomiting, Start date: 08/06/15 3:29:00, Duration: 30 day, Stop date: 09/05/15 3:28:00Notes: (Same as: Zofran) MEDICATION WASTE Product Size: 4 mg Product Wasted: ___ mg Acetaminophen 325 mg, 1 No Longer tab, Route: Active 2014 [facility] PO, Drug form: TAB, Q4H, Dosing Weight 73.636, kg, PRN Pain Score 4-6, Start date: 08/06/15 3:29:00, Duration: 30 day, Stop date: 09/05/15 3:28:00Notes: Do not exceed 4 gm/day. (Same as: Tylenol) Morphine 2 mg, Route: No Longer IVP, Q4H, Active 2014 [facility] Dosing Weight 73.636, kg, PRN Pain Score 7-10, Start date: 08/06/15 3:29:00, Duration: 30 day, Stop date: 09/05/15 3:28:00 Aspirin 325 mg, 1 No Longer tab, Route: Active 2014 [facility] PO, Drug form: ECTAB, Q24H, Dosing Weight 73.636, kg, Start date: 08/06/15 3:00:00, Duration: 30 day, Stop date: 09/04/15 3:00:00Notes: (Do Not Crush) Do not crush or chew. Saline Flush 10 mL, Route: No Longer 0.9% IVP, Drug Active 2014 [facility] Form: INJ, Dosing Weight 75.455, kg, PRN, PRN Line Flush, Start date: 08/05/15 19:05:00, Duration: 30 day, Stop date: 09/04/15 19:04:00Notes : (Same as: BD Posiflush) Docusate Sodium 100 mg=1 cap, Active 100 MG Oral PO, Daily, as 2013 [facility] Capsule needed for [Colace] constipation, # 20 cap, 0 Refill(s) gabapentin 300 300 mg=1 cap, Active MG Oral Capsule PO, BID, # 90 2013 cap, 0 Refill(s) tramadol 50 mg=1 tab, Active hydrochloride PO, Q6H, 2013 50 MG Oral Pain, # 40 Tablet tab, 0 Refill(s) Ibuprofen 400 400 mg, 1 No Longer MG Oral Tablet tab, Route: Active 2013 [facility] PO, Drug form: TAB, Q6H, Dosing Weight 64.545, kg, PRN as needed for pain, Start date: 04/19/14 14:09:00, Duration: 30 day, Stop date: 05/19/14 14:08:00Notes : (Same as: Motrin) "Do Not Crush" Give with food. Ibuprofen 600 mg, Inactive Route: PO, 2013 [facility] Q6H, Dosing Weight 64.545, kg, PRN Severe Pain, Start date: 04/19/14 14:09:00, Duration: 30 day, Stop date: 05/19/14 14:08:00 hydromorphone 0.5 mg, 0.5 No Longer mL, Route: Active 2013 [facility] IV, Drug form: INJ, Q2H, PRN Pain, Start date: 04/18/14 17:55:00, Duration: 30 day, Stop date: 05/18/14 17:54:00 Ibuprofen 600 mg, Inactive Route: PO, 2013 [facility] Q6H, Dosing Weight 64.545, kg, PRN as needed for pain, Start date: 04/18/14 17:02:00, Duration: 30 day, Stop date: 05/18/14 17:01:00 Docusate Sodium 100 mg, 1 No Longer 100 MG Oral cap, Route: Active 2013 [facility] Capsule PO, Drug form: CAP, BID, Dosing Weight 64.545, kg, Start date: 04/18/14 17:00:00, Duration: 30 day, Stop date: 05/18/14 9:00:00Notes: (Same as: Colace) (Do Not Crush) Ofirmev 1,000 mg, 100 Inactive mL, Route: 2013 [facility] IV, Drug form: INJ, Q6H, Dosing Weight 65.909, kg, for > or=50 kg, Start date: 04/18/14 12:00:00, Duration: 1 day, Stop date: 04/19/14 6:00:00Notes: Infuse over 15 minutes Do not exceed 4gm/day of acetaminophen Saline Flush 5 ml, Route: No Longer 0.9% IVP, Drug Active 2013 [facility] Form: INJ, Dosing Weight 64.545, kg, PRN, PRN Line Flush, Start date: 04/18/14 10:16:00, Duration: 30 day, Stop date: 05/18/14 10:15:00Notes : Same as: BD Posiflush Sterile Sodium Chloride 1,000 mL, No Longer 0.154 MEQ/ML Rate: 125 Active 2013 [facility] Injectable ml/hr, Infuse Solution over: 8 hr, Route: IV, Dosing Weight 64.545 kg, Total Volume: 1,000, Start date: 04/18/14 10:16:00, Duration: 30 day, Stop date: 05/18/14 10:15:00 Ondansetron 4 mg, 2 mL, No Longer Route: IVP, Active 2013 [facility] Drug form: INJ, Q6H, Dosing Weight 64.545, kg, PRN Nausea & Vomiting, Start date: 04/18/14 10:16:00, Duration: 30 day, Stop date: 05/18/14 10:15:00Notes : (Same as: Zofran) Acetaminophen 1 tab, Route: Inactive 325 MG / PO, Drug 2013 [facility] Hydrocodone Form: TAB, Bitartrate 5 MG Dosing Weight Oral Tablet 65.909, kg, Q4H, PRN Pain Score 1-3, Start date: 04/18/14 10:16:00, Duration: 30 day, Stop date: 05/18/14 10:15:00Notes : (Same as: [place] 325/5) Do not exceed 4gm/day of acetaminophen . Cefoxitin 2 gm, Route: No Longer IVPB, ONCALL, Active 2013 [facility] Dosing Weight 64.545, kg, Start date: 04/13/14 13:00:00, Duration: 30 day, Stop date: 05/13/14 12:59:00Notes : (Same As: Mefoxin) Naloxone 0.1 mg, Inactive Route: IVP, 2013 Q2MIN, Dosing Weight 65.909, kg, PRN Narcotic Reversal, Start date: 03/13/14 11:16:00, Duration: 4 doses or times, Stop date: Limited # of times Flumazenil 0.2 mg, Inactive Route: IVP, 2013 [facility] PRN, Dosing Weight 65.909, kg, PRN Other -See Comment, Start date: 03/13/14 11:16:00, Duration: 1 doses or times, Stop date: Limited # of times Sodium Chloride 1,000 mL, Inactive 0.154 MEQ/ML Rate: 25 2013 [facility] Injectable ml/hr, Infuse Solution over: 40 hr, Route: IV, Dosing Weight 65.909 kg, Total Volume: 1,000, Start date: 03/13/14 9:59:00, Duration: 30 day, Stop date: 04/12/14 9:58:00 Coconut oil Coconut oil, Active Refill(s) 0 2013 ibandronic acid 150 mg=1 tab, Active 150 MG Oral PO, qMonth, # 2013 [facility] Tablet [Boniva] 1 tab, 0 Refill(s) HM VITAMIN D3 Active Medical 2000 UNIT CAPS 2013 Group ALDACTONE 25 MG one by mouth Active Medical TABS once daily 2013 Group GABAPENTIN 300 one by mouth Active Medical MG CAPS twice daily 2013 Group BONIVA 150 MG one tablet Active Medical TABS once per 2013 Group month B-12 2500 MCG one by mouth Active 02/02[facility] Medical TABS once daily 2013 Group MOTRIN IB 200 prn Active 02/02[facility] Medical MG TABS 2013 Group COCONUT OIL OIL two teaspoons Active Medical daily 2013 Group ALDACTONE 25 MG one by mouth Active 02/02[facility] Medical TABS once daily 2013 Group GABAPENTIN 300 one by mouth Active 02/02[facility] Medical MG CAPS twice daily 2013 Group Propranolol HCl 1 tablet Orally Active 20 mg Orally Jus 2.16.840.1 daily .928154.4. 391 68 Gabapentin 1 capsule Orally Active 300 MG Orally Jus 2.16.840.1 twice a day .706419.4. (bid) 391 68 B-12 Unknown Sublingual Active 2500 MCG Jus 2.16.840.1 Sublingual .985093.4. 391 68 Ocuvite 1 tablet Orally Active Orally daily Jus 2.16.840.1 .613121.4. 391 68 Lasix 1 tablet Orally Active 40 MG Orally Jus 2.16.840.1 Once a day .094644.4. 68 Ciprofloxacin 5 ml Orally Active 500 MG/5ML Jus 2.16.840.1 (10%) Orally .991122.4. Twice a day Spironolactone 1 tablet Orally Active 25 MG Orally Jus 2.16.840.1 daily .367005.4. Caltrate 600+D 1 tablet with Orally Active 600-400 Jus 2.16.840.1 food MG-UNIT .255208.4. Orally Once a day Allergies, Adverse Reactions, Alerts Substance Category Reaction Severity Reaction Status Date Comments Source type Reported MORPHINE Drug MORPHINE allergy 2 Medical Group morphine<s Assertion Drug Active Data up>1</sup> allergy 2 migrated Medical from [facility] on 12/27/14. Originally documented as MORPHINE. Hallucinatio ns Adhesive Adverse rash Adverse Active 2.16.840. Tape Reaction Reaction 5 1.311220. 4.391.. 59370 Morphine Adverse Info Not Adverse Active 2.16.840. Sulfate Reaction Available Reaction 5 1.794144. 4.391.. 84523 morphine Assertion Drug Active allergy [place] Tape [...] 36.1 20.0 - 12 MH 40.0 /2016 [facility] HEMATOLOGY Eosinophils 1.2 0.0 - 4.0 08/03 [facility] HEMATOLOGY Monocytes 5.4 2.0 - 12.0 08/03 [facility] HEMATOLOGY Basophils 0.6 0.0 - 1.0 08/03 [facility] HEMATOLOGY Segs 56.7 45.0 - 12 MH 75.0 /2016 [facility] HEMATOLOGY Monocytes # 0.2 0.0 - 0.8 08/03 [facility] HEMATOLOGY Lymphocytes 1.0 1.0 - 5.5 08/03 MH # /2017 [facility] HEMATOLOGY Segs-Bands # 1.6 1.5 - 8.1 08/03 [facility] HEMATOLOGY MPV 9.2 7.4 - 10.4 08/03 [facility] HEMATOLOGY RDW 16.5 11.5 - 12 MH 14.5 [facility] HEMATOLOGY Platelet 62 133 - 450 12 [facility] HEMATOLOGY Hct 39.3 36.0 - 12 MH 48.0 /2017 [facility] HEMATOLOGY Hgb 13.2 12.0 - 12 MH 16.0 /2016 [facility] HEMATOLOGY RBC 4.14 4.20 - 12 MH 5.40 /2016 [facility] HEMATOLOGY MCH 31.9 27.0 - 12/ MH 31.0 /2016 [facility] HEMATOLOGY MCV 95.1 80.0 - 12 MH 98.0 /2016 [facility] HEMATOLOGY MCHC 33.6 32.0 - 12 MH 36.0 /2017 [facility] HEMATOLOGY WBC 2.8 3.7 - 10.4 08/03 [place] CHEM PANEL eGFR 59 08/02 [facility] Comment: The [facility] eGFR is calculated using the CKD-EPI formula. [...] Direct 0.3 0.0 - 0.3 12/ /2016 [facility] CHEM PANEL Bili 1.5 0.0 - 1.0 12/ MH Indirect /2016 [facility] CHEM PANEL A/G Ratio 0.5 0.7 - 1.6 08/02 /2016 [facility] CHEM PANEL Globulin 4.6 2.7 - 4.2 12/ /2016 [facility] HEMATOLOGY RBC 3.92 4.20 - 12 MH 5.40 /2016 [facility] HEMATOLOGY WBC 5.1 3.7 - 10.4 12 /2016 [facility] HEMATOLOGY Hgb 12.3 12.0 - 12 MH 16.0 /2016 [facility] HEMATOLOGY RDW 15.9 11.5 - 12 MH 14.5 /2016 [facility] HEMATOLOGY MCHC 33.4 32.0 - 12 MH 36.0 /2016 [facility] HEMATOLOGY MCH 31.3 27.0 - 12/ MH 31.0 /2016 [facility] HEMATOLOGY Hct 36.7 36.0 - 08/02 MH 48.0 /2016 [facility] HEMATOLOGY MCV 93.6 80.0 - 08/02 MH 98.0 /2016 [facility] HEMATOLOGY MPV 8.9 7.4 - 10.4 12 /2016 [facility] HEMATOLOGY Platelet 82 133 - 450 12 /2016 [facility] HEMATOLOGY INR 1.49 0.85 - 08/02 MH 1.17 /2016 [facility] HEMATOLOGY PT 18.1 12.0 - 08/02 MH 14.7 /2016 [facility] HEMATOLOGY PTT 33.0 22.9 - 12/ MH 35.8 /2017 [facility] HEMATOLOGY Segs-Bands # 2.6 1.5 - 8.1 [...] ELECTROLYT eGFR 46 04/13 Result Comment: The [facility] eGFR is calculated using the CKD-EPI formula. [...] 0.50 - 04/13 ES Lvl 1.40 /2016 [facility] ELECTROLYT BUN 13 7 - 22 04/13 ES /2016 [facility] ELECTROLYT Potassium 4.3 3.5 - 5.1 04/13 ES Lvl /2016 [place] ELECTROLYT Sodium Lvl 142 135 - 145 04/13 ES [facility] ELECTROLYT Chloride Lvl 107 95 - 109 04/13 ES /2016 [facility] ELECTROLYT CO2 25 24 - 32 04/13 ES /2016 [facility] ELECTROLYT Calcium Lvl 9.3 8.5 - 10.5 04/13 ES [facility] ELECTROLYT Glucose Lvl 101 70 - 99 04/13 ES [facility] HEMATOLOGY Eosinophils 0.2 0.0 - 0.5 04/13 MH # /2016 [facility] HEMATOLOGY Basophils # 0.1 0.0 - 0.2 04/13 [facility] HEMATOLOGY Monocytes # 0.6 0.0 - 0.8 04/13 [facility] HEMATOLOGY Lymphocytes 1.8 1.0 - 5.5 04/13 MH # /2016 [facility] HEMATOLOGY Segs-Bands # 3.0 1.5 - 8.1 04/13 [facility] HEMATOLOGY Basophils 0.9 0.0 - 1.0 04/13 [facility] HEMATOLOGY Monocytes 10.4 2.0 - 12.0 04/13 [facility] HEMATOLOGY Eosinophils 3.0 0.0 - 4.0 04/13 [facility] HEMATOLOGY Segs 53.7 45.0 - 04/13 MH 75.0 /2017 [facility] HEMATOLOGY Lymphocytes 32.0 20.0 - 04/13 MH 40.0 /2017 [facility] HEMATOLOGY INR 1.27 0.85 - 04/13 MH 1.17 /2016 [facility] HEMATOLOGY PT 16.2 12.0 - 04/13 MH 14.7 /2016 [facility] HEMATOLOGY MPV 8.9 7.4 - 10.4 04/13 [facility] HEMATOLOGY RDW 15.4 11.5 - 04/13 MH 14.5 [facility] HEMATOLOGY Platelet 79 133 - 450 04/13 [facility] HEMATOLOGY MCH 32.2 27.0 - 04/13 MH 31.0 /2016 [facility] MCHC 33.3 32.0 - 04/13 MH 36.0 /2017 [facility] [place] RBC 4.00 4.20 - 04/13 MH 5.40 /2016 [facility] HEMATOLOGY MCV 96.5 80.0 - 04/13 MH 98.0 /2017 [facility] HEMATOLOGY Hct 38.6 36.0 - 04/13 MH 48.0 /2016 [facility] [place] Hgb 12.9 12.0 - 04/13 MH 16.0 [facility] [place] WBC 5.6 3.7 - 10.4 04/13 [facility] HEMATOLOGY PTT 28.2 22.9 - 04/13 MH 35.8 /2017 [facility] ELECTROLYT AGAP 7.1 10.0 - 02/16 ES 20.0 [facility] ELECTROLYT eGFR 54 02/16 Result Comment: The [facility] eGFR is calculated using the CKD-EPI formula. [...] Lvl 8.8 8.5 - 10.5 02/16 MH [facility] ELECTROLYT Chloride Lvl 107 95 - 109 02/16 ES [facility] ELECTROLYT CO2 30 24 - 32 02/16 [facility] ELECTROLYT Potassium 4.1 3.5 - 5.1 02/16 ES Lvl /2016 [facility] ELECTROLYT Glucose Lvl 75 70 - 99 02/16 ES [facility] ELECTROLYT BUN 11 7 - 22 02/16 [facility] ELECTROLYT Creatinine 0.95 0.50 - 02/16 ES Lvl 1.40 [facility] ELECTROLYT Sodium Lvl 140 135 - 145 02/16 [facility] HEMATOLOGY Hgb 13.0 12.0 - 02/16 16.0 [facility] HEMATOLOGY Hct 38.8 36.0 - 02/16 48.0 [facility] TUMOR CEA 11.8 0.0 - 3.0 02/16 MH [facility] CHEM PANEL A/G Ratio 0.6 0.7 - 1.6 08/07 [facility] CHEM PANEL AGAP 11.9 10.0 - 08/07 MH 20.0 [facility] CHEM PANEL Globulin 4.1 2.0 - 4.0 08/07 [facility] CHEM PANEL B/C Ratio 15 6 - 25 08/07 [facility] CHEM PANEL eGFR 61 08/07 [facility] Comment: The [facility] eGFR is calculated using the CKD-EPI formula. [...] Magnesium 1.9 1.8 - 2.4 08/07 Lvl [facility] HEMATOLOGY MPV 8.8 7.4 - 10.4 08/07 [facility] HEMATOLOGY Platelet 54 133 - 450 08/07 [facility] HEMATOLOGY MCHC 33.1 32.0 - 12 MH 36.0 /2014 [facility] HEMATOLOGY RDW 14.7 11.5 - 08/07 MH 14.5 /2014 [facility] HEMATOLOGY MCV 97.0 80.0 - 08/07 MH 98.0 /2014 [facility] HEMATOLOGY MCH 32.1 27.0 - 12 MH 31.0 /2014 [facility] HEMATOLOGY RBC 3.54 4.20 - 12 MH 5.40 /2014 [facility] HEMATOLOGY WBC 3.6 3.7 - 10.4 08/07 [facility] HEMATOLOGY Hct 34.3 36.0 - 08/07 MH 48.0 [facility] HEMATOLOGY Hgb 11.4 12.0 - 12 MH 16.0 /2014 [facility] HEMATOLOGY Monocytes # 0.2 0.0 - 0.8 08/07 [facility] HEMATOLOGY Eosinophils 1.3 0.0 - 4.0 08/07 [facility] HEMATOLOGY Monocytes 7.0 2.0 - 12.0 08/07 [facility] HEMATOLOGY Lymphocytes 1.1 1.0 - 5.5 / MH # /2015 [facility] HEMATOLOGY Basophils 0.6 0.0 - 1.0 08/07 [facility] HEMATOLOGY Segs-Bands # 2.2 1.5 - 8.1 08/07 [facility] HEMATOLOGY Segs 61.3 45.0 - 08/07 [facility] 75.0 /2014 [facility] HEMATOLOGY Lymphocytes 29.8 20.0 - 08/07 [facility] 40.0 /2014 [facility] URINE AND UA Nitrite Negative Negative 08/06 [facility] (08/06/15 3:01 PM) /2014 [facility] URINE AND UA Leuk Est Large Negative 08/06 [facility] *ABN* /2014 [facility] (08/06/15 3:01 PM) URINE AND UA Blood Moderate Negative 08/06 [facility] *ABN* /2014 [facility] (08/06/15 3:01 PM) URINE AND UA Bili Negative Negative 08/06 STOOL *NA* /2014 [facility] (08/06/15 3:01 PM) URINE AND UA >=8.0 0.1 - 1.0 08/06 STOOL Urobilinogen * [facility] (08/06/15 3:01 PM) URINE AND UA Color Yellow Yellow 08/06 STOOL *NA* /2014 (08/06/15 3:01 PM) URINE AND UA Turbidity Cloudy Clear 08/06 STOOL *ABN* /2014 [facility] (08/06/15 3:01 PM) URINE AND UA Glucose Negative Negative 08/06 [facility] (08/06/15 3:01 PM) /2014 [facility] URINE AND UA Ketones Negative Negative 08/06 STOOL *NA* /2014 [facility] (08/06/15 3:01 PM) URINE AND UA Spec Grav 1.015 <=1.030 08/06 [facility]OOL [facility] URINE AND UA pH 6.5 5.0 - 8.0 08/06 [facility]OL [facility] URINE AND UA Protein 30 mg/dL Negative 08/06 STOOL mg/dL /2014 [facility] URINE AND UA Sq Epi Few /LPF Few /LPF 08/06 [facility]OL [facility] URINE AND UA [place] Yeast Many /HPF None Seen 08/06 STOOL [...] Est Moderate Negative 08/06 STOOL *ABN* /2014 [facility] (08/05/15 10:40 PM) URINE AND UA 1.0 [...] Color Yellow Yellow 08/06 STOOL *NA* /2014 [facility] (08/05/15 10:40 PM) URINE AND UA Protein Negative Negative 08/06 [facility] (08/05/15 10:40 PM) [facility] URINE AND UA pH 6.0 5.0 - 8.0 08/06 [facility] STOOL /2014 [facility] CARDIAC CK MB 5.3 0.5 - 3.6 08/06 ENZYMES /2014 [facility] CARDIAC Total CK 116 12 - 191 08/06 ENZYMES [facility] CARDIAC BNP 45 <=100 08/06 ENZYMES pg/mL /2014 [facility] CARDIAC Troponin-I <0.02 0.00 - 12 ENZYMES 0.40 /2014 [facility] CARDIAC CK MB Index 4.6 0.0 - 2.5 08/06 ENZYMES [facility] CHEM PANEL Ammonia 47.0 <=45.0 08/06 uMol/L /2014 [facility] CHEM PANEL Alk Phos 118 39 - 136 08/06 [facility] CHEM PANEL Total 7.4 6.4 - 8.4 08/06 Protein /2014 [facility] CHEM PANEL Calcium Lvl 8.5 8.5 - 10.5 08/06 [facility] CHEM PANEL eGFR 67 08/06 [facility] Comment: The [facility] eGFR is calculated using the CKD-EPI formula. [...] Bili Total 1.0 0.2 - 1.3 08/06 [facility] CHEM PANEL A/G Ratio 0.6 0.7 - 1.6 08/06 [facility] CHEM PANEL ALT 21 0 - 65 08/06 [facility] CHEM PANEL Albumin Lvl 2.7 3.5 - 5.0 08/06 [facility] CHEM PANEL AST 27 0 - 37 08/06 [facility] CHEM PANEL AGAP 11.5 10.0 - 08/06 MH 20.0 /2014 [facility] CHEM PANEL Globulin 4.7 2.0 - 4.0 12/ /2014 [facility] CHEM PANEL B/C Ratio 14 6 - 25 12 [facility] CHEM PANEL BUN 11 7 - 22 08/06 [facility] CHEM PANEL Chloride Lvl 106 95 - 109 12 [facility] CHEM PANEL Creatinine 0.81 0.50 - 12 Lvl 1.40 /2014 [facility] CHEM PANEL Potassium 3.5 3.5 - 5.1 12 Lvl /2014 [facility] CHEM PANEL Sodium Lvl 140 135 - 145 12 [facility] CHEM PANEL CO2 26 24 - 32 12 [facility] CHEM PANEL Glucose Lvl 109 70 - 99 12 [facility] HEMATOLOGY MPV 9.1 7.4 - 10.4 08/06 [facility] HEMATOLOGY RDW 15.4 11.5 - 12 14.5 /2014 [facility] HEMATOLOGY Platelet 70 133 - 450 12 /2014 [facility] HEMATOLOGY MCHC 33.1 32.0 - 12 36.0 /2014 [facility] HEMATOLOGY MCH 32.1 27.0 - 12 31.0 /2014 [facility] HEMATOLOGY MCV 97.2 80.0 - 12/ 98.0 /2014 [facility] HEMATOLOGY Hct 36.5 36.0 - 12 48.0 /2014 [facility] HEMATOLOGY Hgb 12.1 12.0 - 12 16.0 /2014 [facility] HEMATOLOGY RBC 3.76 4.20 - 12 MH 5.40 /2014 [facility] HEMATOLOGY WBC 6.0 3.7 - 10.4 08/06 /2014 [facility] HEMATOLOGY Monocytes # 0.5 0.0 - 0.8 08/06 /2014 [facility] HEMATOLOGY Eosinophils 0.1 0.0 - 0.5 12/08 MH # /2015 [facility] HEMATOLOGY Lymphocytes 1.8 1.0 - 5.5 12/08 MH # /2015 [facility] HEMATOLOGY Basophils 0.6 0.0 - 1.0 08/06 /2014 [facility] HEMATOLOGY Segs-Bands # 3.6 1.5 - 8.1 08/06 /2014 [facility] HEMATOLOGY Monocytes 8.4 2.0 - 12.0 12/ /2014 [facility] HEMATOLOGY Eosinophils 2.0 0.0 - 4.0 / /2014 [facility] HEMATOLOGY Lymphocytes 29.3 20.0 - 12 MH 40.0 /2014 [facility] HEMATOLOGY Segs 59.7 45.0 - 12 MH [...] PANEL CO2 26 24 - 32 08/05 [facility] CHEM PANEL Glucose Lvl 93 70 - 99 08/05 [facility] CHEM PANEL Sodium Lvl 140 135 - 145 08/05 [facility] CHEM PANEL BUN 12 7 - 22 08/05 [facility] CHEM PANEL Creatinine 0.88 0.50 - 08/05 Lvl 1.40 [facility] CHEM PANEL eGFR 60 08/05 [facility] Comment: The [facility] eGFR is calculated using the CKD-EPI formula. [...] Bili Total 0.9 0.2 - 1.3 08/05 [facility] CHEM PANEL Alk Phos 126 39 - 136 08/05 [facility] CHEM PANEL Albumin Lvl 2.7 3.5 - 5.0 08/05 [facility] CHEM PANEL ALT 22 0 - 65 08/05 [facility] CHEM PANEL AST 27 0 - 37 12 /2014 [facility] CHEM PANEL AGAP 11.8 10.0 - 12 MH 20.0 /2014 [facility] CHEM PANEL B/C Ratio 14 6 - 25 08/05 /2014 [facility] CHEM PANEL A/G Ratio 0.6 0.7 - 1.6 08/05 /2014 [facility] CHEM PANEL Globulin 4.6 2.0 - 4.0 08/05 [facility] HEMATOLOGY MPV 8.9 7.4 - 10.4 08/05 /2014 [facility] HEMATOLOGY RDW 15.3 11.5 - 08/05 MH 14.5 /2014 [facility] HEMATOLOGY Platelet 69 133 - 450 12 [facility] HEMATOLOGY Hct 37.6 36.0 - 08/05 MH 48.0 /2014 [facility] HEMATOLOGY MCHC 32.8 32.0 - 08/05 MH 36.0 /2014 [facility] HEMATOLOGY Hgb 12.4 12.0 - 08/05 MH 16.0 /2014 [facility] HEMATOLOGY MCV 96.5 80.0 - 08/05 98.0 /2014 [facility] HEMATOLOGY MCH 31.7 27.0 - 08/05 MH 31.0 /2014 [facility] HEMATOLOGY WBC 6.2 3.7 - 10.4 08/05 /2014 [facility] HEMATOLOGY RBC 3.90 4.20 - 08/05 MH 5.40 /2014 [facility] HEMATOLOGY Monocytes # 0.5 0.0 - 0.8 08/05 /2014 [facility] HEMATOLOGY Basophils 0.6 0.0 - 1.0 08/05 /2014 [facility] HEMATOLOGY Segs-Bands # 4.2 1.5 - 8.1 08/05 /2014 [facility] HEMATOLOGY Eosinophils 0.1 0.0 - 0.5 08/05 MH # /2014 [facility] HEMATOLOGY Lymphocytes 1.4 1.0 - 5.5 08/05 MH # /2014 [facility] HEMATOLOGY Lymphocytes 22.3 20.0 - 12 MH 40.0 /2014 [facility] HEMATOLOGY Monocytes 7.3 2.0 - 12.0 08/05 [facility] HEMATOLOGY Eosinophils 1.4 0.0 - 4.0 08/05 [facility] HEMATOLOGY Segs 68.4 45.0 - 08/05 MH 75.0 /2014 [facility] HEMATOLOGY Basophils 0.4 0.0 - 1.0 04/19 [facility] HEMATOLOGY Monocytes # 0.9 0.0 - 0.8 04/19 /2013 [facility] HEMATOLOGY Lymphocytes 1.0 1.0 - 5.5 04/19 MH # /2014 [facility] HEMATOLOGY Segs-Bands # 4.2 1.5 - 8.1 04/19 /2013 [facility] HEMATOLOGY Eosinophils 0.2 0.0 - 0.5 04/19 MH # /2013 [facility] HEMATOLOGY Eosinophils 2.7 0.0 - 4.0 04/19 /2013 [facility] HEMATOLOGY Monocytes 13.7 2.0 - 12.0 04/19 /2013 [facility] HEMATOLOGY Lymphocytes 16.6 20.0 - 04/19 MH 40.0 /2013 [facility] HEMATOLOGY Segs 66.6 45.0 - 04/19 MH 75.0 /2013 [facility] HEMATOLOGY MCHC 33.3 32.0 - 04/19 MH 36.0 /2013 [facility] HEMATOLOGY RDW 15.2 11.5 - 04/19 MH 14.5 /2013 [facility] HEMATOLOGY MCH 32.3 27.0 - 04/19 MH 31.0 /2013 [facility] HEMATOLOGY MCV 96.9 80.0 - 04/19 98.0 /2013 [facility] HEMATOLOGY Hct 30.1 36.0 - 04/19 MH 48.0 /2013 [facility] HEMATOLOGY Platelet 67 133 - 450 04/19 /2013 [facility] HEMATOLOGY MPV 8.4 7.4 - 10.4 04/19 /2013 [facility] HEMATOLOGY Hgb 10.0 12.0 - 04/19 16.0 /2013 [facility] HEMATOLOGY RBC 3.11 4.20 - 04/19 MH 5.40 /2013 [facility] [place] WBC 6.3 3.7 - 10.4 04/19 [facility] CHEM PANEL Globulin 4.8 2.0 - 4.0 04/13 [facility] CHEM PANEL A/G Ratio 0.6 0.7 - 1.6 04/13 [facility] CHEM PANEL AGAP 13.4 10.0 - 04/13 MH 20.0 [facility] CHEM PANEL B/C Ratio 9 6 - 25 04/13 [facility] CHEM PANEL eGFR 59 04/13 <sup>1</sup>R esult [facility] Comment: The eGFR is calculated using the [...] Albumin Lvl 2.9 3.5 - 5.0 04/13 [facility] CHEM PANEL ALT 23 0 - 65 04/13 [facility] CHEM PANEL AST 44 0 - 37 04/13 [facility] CHEM PANEL Alk Phos 122 39 - 136 04/13 [facility] CHEM PANEL Total 7.7 6.4 - 8.4 04/13 [facility] CHEM PANEL Bili Total 1.5 0.2 - 1.3 04/13 [facility] CHEM PANEL Sodium Lvl 144 135 - 145 04/13 [facility] CHEM PANEL Potassium 3.4 3.5 - 5.1 04/13 Lvl [facility] CHEM PANEL Chloride Lvl 106 95 - 109 04/13 [facility] CHEM PANEL CO2 28 24 - 32 04/13 [facility] CHEM PANEL Calcium Lvl 8.8 8.5 - 10.5 04/13 [facility] CHEM PANEL Creatinine 0.9 0.5 - 1.4 04/13 Lvl [facility] CHEM PANEL Glucose Lvl 71 70 - 99 04/13 <sup>2</sup>I nterpretive [facility] Data: Adult reference range values reflect the clinical guidelines
of the [place] [employer]. CHEM PANEL BUN 8 7 - 22 04/13 [facility] CHEM PANEL A/G Ratio 0.6 0.7 - 1.6 04/13 [facility] CHEM PANEL Globulin 4.8 2.0 - 4.0 04/13 [facility] CHEM PANEL Bili 0.8 0.0 - 1.0 04/13 [facility] CHEM PANEL ALT 23 0 - 65 04/13 [facility] CHEM PANEL Alk Phos 122 39 - 136 04/13 [facility] CHEM PANEL AST 45 0 - 37 08 /2013 [facility] CHEM PANEL Bili Direct 0.5 0.0 - 0.3 04/13 /2013 [facility] CHEM PANEL Bili Total 1.3 0.2 - 1.3 04/13 [facility] CHEM PANEL Total 7.7 6.4 - 8.4 04/13 Protein /2013 [facility] CHEM PANEL Albumin Lvl 2.9 3.5 - 5.0 04/13 /2013 [facility] HEMATOLOGY MCH 32.1 27.0 - 08 MH 31.0 /2013 [facility] HEMATOLOGY RDW 14.6 11.5 - 08 MH 14.5 /2013 [facility] HEMATOLOGY MCHC 33.1 32.0 - 08 36.0 /2013 [facility] HEMATOLOGY Platelet 76 133 - 450 04/13 /2013 [facility] HEMATOLOGY RBC 3.79 4.20 - 04/13 MH 5.40 /2013 [facility] HEMATOLOGY Hct 36.7 36.0 - 04/13 48.0 /2013 [facility] HEMATOLOGY MCV 97.0 81.0 - 04/13 99.0 /2013 [facility] HEMATOLOGY Hgb 12.1 12.0 - 04/13 16.0 /2013 [facility] HEMATOLOGY WBC 4.6 3.7 - 10.4 04/13 /2013 [facility] HEMATOLOGY MPV 8.9 7.4 - 10.4 04/13 /2013 [facility] HEMATOLOGY Segs 52.6 45.0 - 04/13 75.0 /2013 [facility] HEMATOLOGY Monocytes # 0.6 0.0 - 0.8 04/13 /2013 [facility] HEMATOLOGY Eosinophils 0.1 0.0 - 0.5 04/13 MH # /2014 [facility] HEMATOLOGY Basophils 1.0 0.0 - 1.0 04/13 /2013 [facility] HEMATOLOGY Segs-Bands # 2.4 1.5 - 8.1 04/13 /2013 [facility] HEMATOLOGY Lymphocytes 1.5 1.0 - 5.5 04/13 MH # /2014 [facility] HEMATOLOGY Lymphocytes 32.1 20.0 - 08 MH 40.0 /2013 [facility] HEMATOLOGY Monocytes 12.2 2.0 - 12.0 04/13 /2013 [facility] HEMATOLOGY Eosinophils 2.1 0.0 - 4.0 04/13 /2013 [facility] CHEM PANEL AST 43 0 - 37 07 /2013 [facility] CHEM PANEL Albumin Lvl 2.9 3.5 - 5.0 03/06 MH [facility] CHEM PANEL Total 7.7 6.4 - 8.4 / MH Protein /2013 [facility] CHEM PANEL Bili Direct 0.5 0.0 - 0.3 03/06 MH [facility] CHEM PANEL Alk Phos 137 39 - 136 / MH [facility] CHEM PANEL Bili Total 1.4 0.2 - 1.3 03/06 [facility] CHEM PANEL ALT 22 0 - 65 / MH [facility] CHEM PANEL Bili 0.9 0.0 - 1.0 / MH Indirect /2013 [facility] CHEM PANEL Globulin 4.8 2.0 - 4.0 03/06 MH [facility] CHEM PANEL A/G Ratio 0.6 0.7 - 1.6 03/06 [facility] ELECTROLYT AGAP 8.9 10.0 - 07/ MH ES 20.0 /2013 [facility] ELECTROLYT eGFR 59 07 <sup>1</sup>R MH ES esult [facility] Comment: The eGFR is calculated using the [...] 28 24 - 32 / MH ES [facility] ELECTROLYT Calcium Lvl 8.7 8.5 - 10.5 03/06 MH ES [facility] ELECTROLYT BUN 9 7 - 22 / MH ES [facility] ELECTROLYT Creatinine 0.9 0.5 - 1.4 / MH ES Lvl /2013 [facility] ELECTROLYT Sodium Lvl 140 135 - 145 03/06 MH [facility] ELECTROLYT Potassium 3.9 3.5 - 5.1 03/06 ES Lvl /2013 [facility] ELECTROLYT Chloride Lvl 107 95 - 109 03/06 [facility] ELECTROLYT Glucose Lvl 84 70 - 99 03/06 <sup>2</sup>I nterpretive [facility] Data: Adult reference range values reflect the clinical guidelines
of the [place] [employer]. HEMATOLOGY Hgb 11.9 12.0 - 03/06 16.0 /2013 [facility] HEMATOLOGY Hct 35.2 36.0 - 03/06 48.0 /2013 [facility] HEMATOLOGY Platelet 80 133 - 450 03/06 [facility] HEMATOLOGY WBC 4.4 3.7 - 10.4 03/06 [facility] HEMATOLOGY PT 15.9 12.0 - 03/06 14.7 [facility] HEMATOLOGY INR 1.29 0.85 - 03/06 <sup>3</sup>I 1.17 nterpretive [facility] Data: RECOMMENDED RANGES FOR PROTIME INR:
2.0-3.0 for most medical and surgical thromboemboli c states.
2.5-3.5 for artificial heart valves and recurrent embolism.<br/ >
INR SHOULD BE USED ONLY FOR PATIENTS ON STABLE ANTICOAGULANT THERAPY. HEMATOLOGY PTT 32.6 22.9 - 03/06 <sup>4</sup>I 35.8 /2013 nterpretive [facility] Data: Heparin Therapeutic Range: 57 - 92 Seconds TUMOR CEA 12.2 0.0 - 3.0 03/06 [facility] Pathology Reports No Data Provided for This Section Diagnostic Reports Report Value Date Source Renal pyelogram Patient Name: EDGARD DÍAZ 08/03/2017 [facility] retrograde DX : 1930; Age: 86 years Female MR: [id number] Study: Renal pyelogram retrograde DX 08/03/2017 3:09 PM PATIENT SERVICES REP CLINICAL INDICATION: bilateral lithotripsy Bilateral stent placement - Fluoro time 2.22 min Dose 17.35 mgy C #3 OR 4 COMPARISON: None FINDINGS: Limited intraoperative fluoroscopic images provided for retrograde pyelography. Contrast administration demonstrates moderate bilateral hydronephrosis. Subsequently bilateral ureteral stents were placed. Refer to operative report for full details. SL: BRUNA-M PET CT Colorectal CA Patient Name: EDGARD DÍAZ 03/04/2017 [facility] restaging : 1930; Age: 86 years y/o Female MR: [id number] Study: PET CT Colorectal CA restaging 03/04/2017 [...] urinary bladder suspicious for chronic cystitis. SL: [id number] Carotid artery Doppler CAROTID DOPPLER 08/06/2015 [facility] US HISTORY: Mental status changes. Encephalopathy. [...] Chest 1view DX Chest one view: 08/05/2015 [facility] COMPARISON: 04/19/2014 FINDINGS: Limited AP portable study. [...] CT PROCEDURE: Brain wo contrast CT 08/05/2015 [facility] REASON FOR EXAM: pt from IV therapy [...] 2 views EXAM: Chest 2 views 04/19/2014 [facility] DATE: Apr 19, 2014 09:48:02 AM INDICATION: [...] PET CT Colorectal CA PET/CT SCAN: 03/24/2014 [facility] restaging TECHNIQUE: 14 mCi of FDG were [...] hypertension. SL:[address] Colorectal CA 09/14/2013 [facility] restaging EXAM: PET/CT HISTORY: Colon cancer, restaging. [...] Comments Source Systolic (mm Hg) 125 08/03/2017 [facility] Diastolic (mm Hg) 71 08/03/2017 [facility] Systolic (mm Hg) 129 08/03/2017 [facility] Diastolic (mm Hg) 66 08/03/2017 [facility] Systolic (mm Hg) 128 08/03/2017 [facility] Diastolic (mm Hg) 59 08/03/2017 [facility] Respitory Rate 16 08/03/2017 [facility] Respitory Rate 11 08/03/2017 [facility] Respitory Rate 9 08/03/2017 [facility] Temperature Oral (F) 97.3 F 08/02/2017 [facility] Heart Rate 70 08/02/2017 [facility] BMI Calculated 27.18 08/02/2017 [facility] Height 165.1 cm 08/02/2017 [facility] Weight 74.091 08/02/2017 [facility] Systolic (mm Hg) 99 04/21/2017 [facility] Diastolic (mm Hg) 56 04/21/2017 [facility] Respitory Rate 18 04/21/2017 [facility] Respitory Rate 18 04/21/2017 [facility] Systolic (mm Hg) 114 04/21/2017 [facility] Diastolic (mm Hg) 58 04/21/2017 [facility] Systolic (mm Hg) 109 04/21/2017 [facility] Diastolic (mm Hg) 56 04/21/2017 [facility] Respitory Rate 12 04/21/2017 [facility] Height 165.1 cm 04/13/2017 [facility] Weight 74.545 04/13/2017 [facility] BMI Calculated 27.35 04/13/2017 [facility] Temperature Oral (F) 97.4 F 04/13/2017 [facility] Heart Rate 80 04/13/2017 [facility] Systolic (mm Hg) 118 02/23/2017 [facility] Diastolic (mm Hg) 61 02/23/2017 [facility] Respitory Rate 32 02/23/2017 [facility] Respitory Rate 28 02/23/2017 [facility] Systolic (mm Hg) 109 02/23/2017 [facility] Diastolic (mm Hg) 60 02/23/2017 [facility] Systolic (mm Hg) 109 02/23/2017 [facility] Diastolic (mm Hg) 61 02/23/2017 [facility] Respitory Rate 23 02/23/2017 [facility] Temperature Oral (F) 97.4 F 02/16/2017 [facility] Heart Rate 72 02/16/2017 [facility] BMI Calculated 28.02 02/16/2017 [facility] Weight 76.364 02/16/2017 [facility] Height 165.1 cm 02/16/2017 [facility] Weight 159 08/12/2015 [id number]. [id number] Height 64.4 08/12/2015 [id number]. [id number] Temperature Oral (F) 97.6 F 08/12/2015 2.16.840.1.137511. [id number] Heart Rate 93 08/12/2015 2.16.840.1.539180. [id number] Diastolic (mm Hg) 63 08/12/2015 [id number]. [id number] Systolic (mm Hg) 114 08/12/2015 [id number]. [id number] Systolic (mm Hg) 102 08/07/2015 [facility] Diastolic (mm Hg) 66 08/07/2015 [facility] Temperature Oral (F) 97.6 F 08/07/2015 [facility] Respitory Rate 16 08/07/2015 [facility] Heart Rate 77 08/07/2015 [facility] Respitory Rate 15 08/07/2015 [facility] Temperature Oral (F) 97.4 F 08/07/2015 [facility] Heart Rate 81 08/07/2015 [facility] Systolic (mm Hg) 100 08/07/2015 [facility] Diastolic (mm Hg) 66 08/07/2015 [facility] Systolic (mm Hg) 115 08/07/2015 [facility] Diastolic (mm Hg) 73 08/07/2015 [facility] Heart Rate 83 08/07/2015 [facility] Respitory Rate 16 08/07/2015 [facility] Temperature Oral (F) 97.4 F 08/07/2015 [facility] BMI Calculated 26.89 08/06/2015 [facility] Weight 73.295 [...] 16 04/20/2014 [facility] Heart Rate 92 04/20/2014 [facility] Temperature Oral (F) 98.2 F 04/20/2014 [facility] Systolic (mm Hg) 109 04/20/2014 [facility] Diastolic (mm Hg) 70 04/20/2014 [facility] Heart Rate 90 04/20/2014 [facility] Temperature Oral (F) 97.9 F 04/20/2014 [facility] [...] 03/13/2014 [facility] Systolic (mm Hg) 113 03/13/2014 [facility] Diastolic (mm Hg) 54 03/13/2014 [facility] Temperature Oral (F) 97.6 F 03/06/2014 [facility] Height 165.1 cm 03/06/2014 [facility] Weight 65.909 03/06/2014 [facility] BMI Calculated 24.18 03/06/2014 [facility] Weight 149 02/02/2014 [facility] Temperature Oral [...] Number For Provider Date Date Visit Outpatient [id number] COLON PING NORMAN 09/14 Active [facility] Outpatient [id number] 153.9 PING NORMAN 09/20 Active [facility] Bedded [id number] [facility] 03/13 [facility] Outpatient 0 [facility] Office [id number] Dakota Michele, 03/23 03/23 [id number] General Surgery 350 [facility] Outpatient [id number] Ping Norman 03/24 03/25 [facility] Lab Report [id number] Dakota Michele, 03/26 03/26 [place] [id number] [facility] Lab Report [id number] odoros 04/12 04/12 [place] [id number] ian Medical MD [facility] OBS [id number] Dakota Michele 04/18 04/[address] [address] [facility] Office [id number] Dakota Michele, 04/27 04/27 [place] Visit [id number] [facility] OP [id number] Ping Norman 08/05 09/04 [place] Recurring [facility] OBS [id number] Van 08/06 08/07 [place] Observation 3 [facility] [id number] 08/12 08/12 2.16.840 Medical [id number] /2014 .1.36214 Group [id number]. [id number] [id number] [id number] [place] [facility] [id number] [facility]/15 Active [facility] 1 [facility]OL[place] Outpatient [id number] [facility] 02/23 Active [facility] 3 [place] Outpatient [id number] [facility] 02/23 Active [facility] 2 VOL [facility] Bedded [id number] [facility] 02/23 02[facility]23 [place] [facility] 4 Volian /2016 [facility] [id number] [facility] 03/04 03/05 [facility] 5 Voloyiannis /2016 [facility] Outpatient [id number] N[facility] 03/30 [facility] [place] Outpatient [id number] [facility] 04/21 [facility] VOLOY [facility] Surgery [id number] [facility] 04/21 04/21 [place] 7 Voloyiannis /2016 [facility] Outpatient [id number] ROMAN FOSTER 05/12 [facility] [place] Out[facility] [id number] NINO TNPROSPER 05/17 [facility] [place] Outpatient [id number] NURSE VISIT 06/22 [facility] Day Surgery [id number] Nino [facility] 08/03 08/03 [facility] Outpatient [id number] NINO WILSON 08/26 [facility] [place] Outpatient [id number] JOVANA CUI 08/26 Active [facility] Ambulatory [id number] Jovana Karli 08/26 08/26 Urology Pre-Reg [facility] Outpatient [id number] Nino [facility] 08/26 08/27 Urology [facility] Outpatient [id number] NINO [facility] 09/27 [facility] Outpatient [id number] Nino [facility] 09/27 09/28 Urology [facility] Outpatient [id number] NINO [facility] 01/14 [facility] Ambulatory [id number] Nino [facility] 01/14 01/14 Urology Pre-Reg [facility] Procedures Procedure Code Date Perfomer Comments Source Cystourethroscopy, 20375 Medical with removal of 7 Group foreign body, calculus, or ureteral stent from urethra or bladder (separate procedure); simple Hernia repair [id number] [facility] 4 Hernia repair [id number] Medical 4 Group Cannulation of [id number] [facility] Portacath Cardiac [id number] 1994 [facility] catheterization<sup>1 </sup> Cholecystectomy [id number] [facility] Colonoscopy [id number] [facility] Hysterectomy [id number] [facility] Knee [id number] 2011 [facility] replacement<sup>2</red p> Operation [id number] [facility] Partial resection of [id number] [facility] colon Cannulation of [id number] [facility] Cardiac [id number] 1994 Medical catheterization<sup>1 Group </sup> Cataract extraction [id number] Medical and insertion of Group intraocular lens Cholecystectomy [id number] Medical Group Colonoscopy [id number] Medical Group Hysterectomy [id number] Medical Group Knee [id number] 2011 Medical replacement<sup>2</red Group p> Operation [id number] Medical Group Partial resection of [id number] Medical colon Group Cataract extraction [id number] [place] and insertion of intraocular lens Assessment and Plan Assessment and Plan Date Source Extracted from:Title: History and Physical 08/03/2017 [facility] Author: Nino Wilson MD Date: 08/03/17 Renal calculi Extracted from:Title: Clinical Document 04/21/2017 [facility] Author: Galdino Ureña MD Date: 04/21/17 PREOPERATIVE DIAGNOSIS: Personal history of colon cancer. POSTOPERATIVE DIAGNOSIS: Personal history of colon cancer. PROCEDURE: Port-A-Cath removal. SURGEON: Dr. Ureña. TRUCK HOP: None. ANESTHESIA: General. IV FLUIDS: 200 mL. [...] We placed a 2- 0 Vicryl in ptdavw-wh-ijlfz fashion at the site of the Port-A-Cath [...] the patients satisfaction Extracted from:Title: preop 02/23/2017 [facility] Author: Roman Foster, MPH, PA-C Date: 02/23/17 [...] and Dr. Galdino Ureña, who provided a ewoq-wn-opto visit and performed the physical exam, assessment and plan, and the note transcribed by Roman Mason total exam time, coordination of care, education >20 minutes [3] Extracted from:Title: Clinical Document 08/07/2015 [facility] Author: Van Luu MD Date: 08/06/15 Chart reveiwed. Patient seen and examined. WIll continue to follow. Extracted from:Title: Clinical Document 04/20/2014 [facility] Author: Dakota Michele MD Date: 04/19/14 Surgery Progress Note Attending: Dakota Michele MD Service: Plastic Surgery Service Code status: None Specified=FULL CODE Reason for Admission: 553.2 Working DRG: None Documented Isolation: None Documented Consulting Physicians: Dakota Michele MD Office: MSO: [id number] Service: General Surgery SUBJECTIVE: Doing OK. Still [...] Present Illness: Oncologist - Dr. Marlyn Norman; Drop Wire Stringer - Dr. Angel Mike ............Sharifa Tatum March [...] [facility] HERNIA WITHOUT MENTION OBSTRUCTION/GANGRENE (ICD-553.1) ( [id number]) Assessment: Unchanged Will offer repair as she desires intervention Wll request cardiac clearance Onel DICKINSON with this latest PET to reaffirt cancer free state Discussed case with referring MD Orders: Office Visit, [facility] III - 60432 ([id number]) Problem # 2: CARCINOMA, ASCENDING COLON (ICD-153.6) (RAI63-Z46.2) Assessment: Improved Post excision and allears to be disease free Orders: Office Visit, [facility] Level III - 75940 (CPT-75843) Patient Instructions: 1) Cardiac eval for pre [...] History Date Source Social History TypeResponse 05/24/2017 [facility] Substance Abuse Use: None. Alcohol Never Smoking [...] on: 08/03/17 Social History ElementQualifiersDate Reported 08/12/2015 [id number] Tobacco Use: .76011 . Are you a: never smoker Aug [...]
--- OUTSIDE RECORDS SUMMARY | 2019-04-07 09:01 | XMS REPORT | CCD ---
:1930 Author Organization [facility] Care Team Providers Name Role Phone Marlyn Ceballos Referring Provider Allergies, Adverse Reactions, Alerts Substance Reaction Status morphine Active Problem List Condition Effective Dates Status CAD - Coronary artery disease Active Cancer of colon 05/10/2011 Active Cirrhosis of liver Active Esophageal varices Active Hepatitis C Active Pneumonia Active
--- OUTSIDE RECORDS SUMMARY | 2019-04-07 09:01 | XMS REPORT | CCD ---
:1930 Author Organization [facility] Care Team Providers Name Role Phone Marlyn Ceballos Consulting Provider Allergies, Adverse Reactions, Alerts Substance Reaction Status morphine Active Problem List Condition Effective Dates Status CAD - Coronary artery disease Active Cancer of colon 05/10/2011 Active Cirrhosis of liver Active Esophageal varices Active Hepatitis C Active Pneumonia Active
--- OUTSIDE RECORDS SUMMARY | 2019-04-07 09:02 | XMS REPORT | Continuity of Care Document ---
:1930 Author Organization [facility] Care Team Providers Name Role Phone MD Michele Hoang Unavailable Unavailable Insurance Providers Payer name Policy type / Policy ID Covered green party ID Policy [place] Coverage type [place]IC[place] [employer] AARP HEALTHCARE OPTIONS (MEDICARE SUPPLEMENT AARP HEALTHCARE [...] Location Date Office Visit Dakota Michele MD [facility] Mar 23, 2014 [...]
--- OUTSIDE RECORDS SUMMARY | 2019-04-07 09:02 | XMS REPORT | Continuity of Care Document ---
:1930 Author Organization [facility] Care Team Providers Name Role Phone MD Niranjan, Galdino Unavailable Unavailable Insurance Providers Payer name Policy type / Policy ID Covered alliance party ID Policy Montoya Coverage type [place]IC[place] [employer] AARP HEALTHCARE OPTIONS (MEDICARE SUPPLEMENT AARP HEALTHCARE [...] Location Date Lab Report Galdino Ureña MD [facility] Apr 12, 2014 Allergies, Adverse [...]
--- OUTSIDE RECORDS SUMMARY | 2019-04-07 09:02 | XMS REPORT | Continuity of Care Document ---
:1930 Author Organization [facility] Care Team Providers Name Role Phone MD Michele Hoang Unavailable Unavailable Insurance Providers Payer name Policy type / Policy ID Covered democrat ID Policy Montoya Coverage type MEDIC[place]: [employer] AARP HEALTHCARE OPTIONS (MEDICARE SUPPLEMENT AARP HEALTHCARE [...] Lab Report Dakota Michele MD [facility] [place] Mar 26, 2014 Allergies, Adverse Reactions, Alerts [...]
--- OUTSIDE RECORDS SUMMARY | 2019-04-07 09:02 | XMS REPORT ---
:1930 Author Organization [employer] Care Team Providers Name Role Phone Belkis Luuad Provider Role Unavailable Allergies, Adverse Reactions, Alerts Substance Reaction Event Type Adhesive Tape rash Drug Allergy Morphine Sulfate Info Not Available Drug Allergy Encounters Encounter Location Date Unknown [facility] Aug 12, 2015 Problems Problem Type [...] End Status Dosage Date Date Propranolol HCl [facility] 22825-38 20 mg Orally Active 1 tablet 73-00 daily Gabapentin [facility] 51957-33 300 MG Orally Active 1 capsule 39-19 twice a day (bid) B-12 [facility] 66096-69 2500 MCG Active Unknown 92-72 Sublingual Ocuvite [facility] 65572-08 Orally daily Active 1 tablet 87-60 Lasix [facility] 64258-29 40 MG Orally Active 1 tablet 60-13 Once a day Ciprofloxacin [facility] 75615-09 500 MG/5ML (10%) Active 5 ml 93-01 Orally Twice a day [facility] 14688[facility]42 25 MG Orally Active 1 tablet 03-11 daily Caltrate 600+D [facility] 93565-87 600-400 MG-UNIT Active 1 tablet 86-00 Orally [...]
--- OUTSIDE RECORDS SUMMARY | 2019-04-07 09:02 | XMS REPORT | Continuity of Care Document ---
:1930 Author Organization [facility] Care Team Providers Name Role Phone MD Michele Hoang Unavailable Unavailable Insurance Providers Payer name Policy type / Policy ID Covered green party ID Policy Mont[place] Coverage type [place]IC[place] [employer] AARP HEALTHCARE OPTIONS (MEDICARE SUPPLEMENT AARP HEALTHCARE [...] Location Date Office Visit Dakota Michele MD [facility] Apr 27, 2014 Surgery [...]
--- OUTSIDE RECORDS SUMMARY | 2019-04-07 09:03 | XMS REPORT ---
:1930 [facility] Address [address] [place] [address] [address] [place] [address] Care Team Providers Name Role Phone MARY [...] Value Reference Range Comments ALPHA-FETOPROTEIN (BEAKER) (test syct=2367) 2.9 ng/mL <10.0 HEPATIC FUNCTION [id number] 16:38:00 Test Item Value Reference Range Comments TOTAL PROTEIN (BEAKER) (test vhmx=031) 9.0 gm/dL 6.0-8.3 ALBUMIN (BEAKER) (test xfuw=6554) 2.8 g/dL 3.5-5.0 BILIRUBIN TOTAL (BEAKER) (test xrns=708) 1.2 mg/dL 0.2-1.2 BILIRUBIN DIRECT (BEAKER) (test qvsc=090) 0.7 mg/dL 0.1-0.5 ALKALINE PHOSPHATASE (BEAKER) (test inrz=277) 111 U/L 40-150 AST (SGOT) (BEAKER) (test finv=007) 31 U/L 5-34 ALT (SGPT) (BEAKER) (test zlgq=366) 12 U/L 6-55 BASIC METABOLIC [id number] 16:38:00 Test Item Value Reference Range Comments SODIUM (BEAKER) (test 133 meq/L 136-145 ormp=323) POTASSIUM (BEAKER) (test 4.0 meq/L 3.5-5.1 tljs=852) CHLORIDE (BEAKER) (test 100 meq/L 98-107 vwje=065) CO2 (BEAKER) (test 27 meq/L 22-29 owly=203) BLOOD UREA NITROGEN 20 mg/dL 7-21 (BEAKER) (test irmc=704) CREATININE (BEAKER) (test 1.07 mg/dL 0.57-1.25 qmag=197) GLUCOSE RANDOM (BEAKER) 71 mg/dL 70-105 (test ehzj=718) CALCIUM (BEAKER) (test 9.4 mg/dL 8.4-10.2 rwld=025) EGFR (BEAKER) (test 49 mL/min/1.73 sq m ESTIMATED GFR IS NOT qpvq=6412) ACCURATE CREATININE CLEARANCE IN PREDICTING GLOMERULAR FILTRATION RATE. ESTIMATED GFR IS NOT APPLICABLE FOR DIALYSIS PATIENTS. [id number] 16:33:00 Test Item Value Reference Range Comments AMMONIA (BEAKER) (test gzjn=168) 40 mol/L 18-72 PROTHROMBIN [id number] 16:29:00 Test Item Value Reference Range Comments PROTIME (BEAKER) (test adgl=243) 16.5 seconds 11.7-14.7 INR (BEAKER) (test shto=737) 1.3 <=5.9 RECOMMENDED COUMADIN/WARFARIN INR THERAPY RANGESSTANDARD DOSE: 2.0 - 3.0 Includes: PROPHYLAXIS forvenous thrombosis, systemic embolization; TREATMENT for venous thrombosis and/or pulmonary embolus.HIGH RISK: Target INR is 2.5-3.5 for patients with mechanical heart valves.CBC W/PLT COUNT & AUTO [id number] 16:22:00 Test Item Value Reference Range Comments WHITE BLOOD CELL COUNT (BEAKER) (test zwkj=823) 5.0 K/ L 3.5-10.5 RED BLOOD CELL COUNT (BEAKER) (test ijfj=441) 3.39 M/ L 3.93-5.22 HEMOGLOBIN (BEAKER) (test oszp=183) 10.7 GM/DL 11.2-15.7 HEMATOCRIT (BEAKER) (test vuyp=459) 33.1 % 34.1-44.9 MEAN CORPUSCULAR VOLUME (BEAKER) (test kiwe=878) 97.6 fL 79.4-94.8 MEAN CORPUSCULAR HEMOGLOBIN (BEAKER) (test 31.6 pg 25.6-32.2 dlql=419) MEAN CORPUSCULAR HEMOGLOBIN CONC (BEAKER) (test 32.3 GM/DL 32.2-35.5 zhyb=126) RED CELL DISTRIBUTION WIDTH (BEAKER) (test 15.0 % 11.7-14.4 mfsm=459) PLATELET COUNT (BEAKER) (test ajpe=286) 98 K/CU MM 150-450 MEAN PLATELET VOLUME (BEAKER) (test rrzu=361) 10.0 fL 9.4-12.3 NUCLEATED RED BLOOD CELLS (BEAKER) (test 0 /100 WBC 0-0 jurm=309) NEUTROPHILS RELATIVE PERCENT (BEAKER) (test 71 % hszo=015) LYMPHOCYTES RELATIVE PERCENT (BEAKER) (test 14 % mmkv=462) MONOCYTES RELATIVE PERCENT (BEAKER) (test 12 % teik=940) EOSINOPHILS RELATIVE PERCENT (BEAKER) (test 2 % hygj=361) BASOPHILS RELATIVE PERCENT (BEAKER) (test 1 % aspl=367) NEUTROPHILS ABSOLUTE COUNT (BEAKER) (test 3.51 K/ L 1.56-6.13 zrmw=431) LYMPHOCYTES ABSOLUTE COUNT (BEAKER) (test 0.69 K/ L 1.18-3.74 soni=966) MONOCYTES ABSOLUTE COUNT (BEAKER) (test frbs=749) 0.62 K/ L 0.24-0.36 EOSINOPHILS ABSOLUTE COUNT (BEAKER) (test 0.10 K/ L 0.04-0.36 fucj=875) BASOPHILS ABSOLUTE COUNT (BEAKER) (test iohv=068) 0.04 K/ L 0.01-0.08 IMMATURE GRANULOCYTES-RELATIVE PERCENT (BEAKER) 0 % 0-1 (test fqsd=3439) ALPHA FETOPROTEIN (AFP), TUMOR [id number] 17:15:00 Test Item Value Reference Range Comments ALPHA-FETOPROTEIN (BEAKER) (test qrdt=0679) 3.3 ng/mL <10.0 [id number] 16:34:00 Test Item Value Reference Range Comments MAGNESIUM (BEAKER) (test qeyx=164) 1.8 mg/dL 1.6-2.6 BASIC METABOLIC [id number] 16:34:00 Test Item Value Reference Range Comments SODIUM (BEAKER) (test 133 meq/L 136-145 wsdo=037) POTASSIUM (BEAKER) (test 3.9 meq/L 3.5-5.1 lcey=323) CHLORIDE (BEAKER) (test 99 meq/L 98-107 nwdh=194) CO2 (BEAKER) (test 25 meq/L 22-29 zsfb=916) BLOOD UREA NITROGEN 12 mg/dL 7-21 (BEAKER) (test hwmy=331) CREATININE (BEAKER) (test 0.97 mg/dL 0.57-1.25 gpfy=387) GLUCOSE RANDOM (BEAKER) 93 mg/dL 70-105 (test kaci=959) CALCIUM (BEAKER) (test 9.0 mg/dL 8.4-10.2 puvq=827) EGFR (BEAKER) (test 54 mL/min/1.73 sq m ESTIMATED GFR IS NOT rxyc=2932) ACCURATE CREATININE CLEARANCE IN PREDICTING GLOMERULAR FILTRATION RATE. ESTIMATED GFR IS NOT APPLICABLE FOR DIALYSIS PATIENTS. Specimen slightly ictericHEPATIC FUNCTION [id number] 16:34:00 Test Item Value Reference Range Comments TOTAL PROTEIN (BEAKER) (test xmuy=626) 8.0 gm/dL 6.0-8.3 ALBUMIN (BEAKER) (test cvfw=4725) 3.0 g/dL 3.5-5.0 BILIRUBIN TOTAL (BEAKER) (test nvva=872) 1.9 mg/dL 0.2-1.2 BILIRUBIN DIRECT (BEAKER) (test nahg=864) 0.8 mg/dL 0.1-0.5 ALKALINE PHOSPHATASE (BEAKER) (test bsco=670) 122 U/L 40-150 AST (SGOT) (BEAKER) (test lwig=617) 30 U/L 5-34 ALT (SGPT) (BEAKER) (test ekkf=259) 12 U/L 6-55 Specimen slightly ictericPROTHROMBIN [id number] 16:17:00 Test Item Value Reference Range Comments PROTIME (BEAKER) (test qppi=827) 17.3 seconds 11.7-14.7 INR (BEAKER) (test artu=574) 1.4 <=5.9 RECOMMENDED COUMADIN/WARFARIN INR THERAPY RANGESSTANDARD DOSE: 2.0 - 3.0 Includes: PROPHYLAXIS forvenous thrombosis, systemic embolization; TREATMENT for venous thrombosis and/or pulmonary embolus.HIGH RISK: Target INR is 2.5-3.5 for patients with mechanical heart valves.CBC W/PLT COUNT & AUTO [id number] 16:17:00 Test Item Value Reference Range Comments WHITE BLOOD CELL COUNT (BEAKER) (test zipw=623) 5.6 K/ L 3.5-10.5 RED BLOOD CELL COUNT (BEAKER) (test qkpd=868) 3.83 M/ L 3.93-5.22 HEMOGLOBIN (BEAKER) (test msdk=637) 12.0 GM/DL 11.2-15.7 HEMATOCRIT (BEAKER) (test trux=993) 36.8 % 34.1-44.9 MEAN CORPUSCULAR VOLUME (BEAKER) (test ssfy=710) 96.1 fL 79.4-94.8 MEAN CORPUSCULAR HEMOGLOBIN (BEAKER) (test 31.3 pg 25.6-32.2 exfd=149) MEAN CORPUSCULAR HEMOGLOBIN CONC (BEAKER) (test 32.6 GM/DL 32.2-35.5 ckow=664) RED CELL DISTRIBUTION WIDTH (BEAKER) (test 15.9 % 11.7-14.4 vxrp=392) PLATELET COUNT (BEAKER) (test zyto=352) 83 K/CU MM 150-450 MEAN PLATELET VOLUME (BEAKER) (test tfse=271) 11.1 fL 9.4-12.3 NUCLEATED RED BLOOD CELLS (BEAKER) (test 0 /100 WBC 0-0 fbru=702) NEUTROPHILS RELATIVE PERCENT (BEAKER) (test 54 % unru=830) LYMPHOCYTES RELATIVE PERCENT (BEAKER) (test 36 % xnnv=377) MONOCYTES RELATIVE PERCENT (BEAKER) (test 8 % lroh=711) EOSINOPHILS RELATIVE PERCENT (BEAKER) (test 2 % hcsz=435) BASOPHILS RELATIVE PERCENT (BEAKER) (test 1 % ruyu=670) NEUTROPHILS ABSOLUTE COUNT (BEAKER) (test 3.01 K/ L 1.56-6.13 pkae=921) LYMPHOCYTES ABSOLUTE COUNT (BEAKER) (test 1.98 K/ L 1.18-3.74 whra=769) MONOCYTES ABSOLUTE COUNT (BEAKER) (test mkiv=190) 0.44 K/ L 0.24-0.36 EOSINOPHILS ABSOLUTE COUNT (BEAKER) (test 0.10 K/ L 0.04-0.36 mvam=918) BASOPHILS ABSOLUTE COUNT (BEAKER) (test nqgu=707) 0.04 K/ L 0.01-0.08 IMMATURE GRANULOCYTES-RELATIVE PERCENT (BEAKER) 0 % 0-1 (test ufvu=0537) ALPHA FETOPROTEIN (AFP), TUMOR [id number] 16:14:00 Test Item Value Reference Range Comments ALPHA-FETOPROTEIN (BEAKER) (test gmxs=3368) 5.7 ng/mL <10.0 Effective 07/17/2014: Reference Range ChangeNew: <10.0 Previous: 0.0- [id number] 15:57:00 Test Item Value Reference Range Comments MAGNESIUM (BEAKER) (test heca=991) 1.9 mg/dL 1.6-2.6 BASIC METABOLIC [id number] 15:57:00 Test Item Value Reference Range Comments SODIUM (BEAKER) (test 139 meq/L 136-145 nrfp=657) POTASSIUM (BEAKER) (test 4.5 meq/L 3.5-5.1 jawr=031) CHLORIDE (BEAKER) (test 105 meq/L 98-107 nyat=190) CO2 (BEAKER) (test 25 meq/L 22-29 nbwa=823) BLOOD UREA NITROGEN 15 mg/dL 7-21 (BEAKER) (test cukl=582) CREATININE (BEAKER) (test 0.95 mg/dL 0.57-1.25 nwji=000) GLUCOSE RANDOM (BEAKER) 86 mg/dL 70-105 (test tels=381) CALCIUM (BEAKER) (test 9.4 mg/dL 8.4-10.2 iorg=153) EGFR (BEAKER) (test 56 mL/min/1.73 sq m ESTIMATED GFR IS NOT dpfm=0922) ACCURATE CREATININE CLEARANCE IN PREDICTING GLOMERULAR FILTRATION RATE. ESTIMATED GFR IS NOT APPLICABLE FOR DIALYSIS PATIENTS. Specimen slightly ictericHEPATIC FUNCTION [id number] 15:57:00 Test Item Value Reference Range Comments TOTAL PROTEIN (BEAKER) (test tire=840) 7.6 gm/dL 6.0-8.3 ALBUMIN (BEAKER) (test nrfn=4076) 3.2 g/dL 3.5-5.0 BILIRUBIN TOTAL (BEAKER) (test abid=231) 1.8 mg/dL 0.2-1.2 BILIRUBIN DIRECT (BEAKER) (test pqxy=458) 0.8 mg/dL 0.1-0.5 ALKALINE PHOSPHATASE (BEAKER) (test yzbz=505) 112 U/L 40-150 AST (SGOT) (BEAKER) (test gses=980) 33 U/L 5-34 ALT (SGPT) (BEAKER) (test gngj=407) 17 U/L 6-55 Specimen slightly ictericPROTHROMBIN [id number] 15:56:00 Test Item Value Reference Range Comments PROTIME (BEAKER) (test wryf=519) 16.7 seconds 11.7-14.7 INR (BEAKER) (test bgaz=355) 1.4 <=5.9 RECOMMENDED COUMADIN/WARFARIN INR THERAPY RANGESSTANDARD DOSE: 2.0 - 3.0 Includes: PROPHYLAXIS forvenous thrombosis, systemic embolization; TREATMENT for venous thrombosis and/or pulmonary embolus.HIGH RISK: Target INR is 2.5-3.5 for patients with mechanical heart valves.CBC W/PLT COUNT & AUTO [id number] 15:56:00 Test Item Value Reference Range Comments WHITE BLOOD CELL COUNT (BEAKER) (test gkza=177) 5.3 K/ L 4.0-10.0 RED BLOOD CELL COUNT (BEAKER) (test nshr=988) 4.21 M/ L 4.00-5.00 HEMOGLOBIN (BEAKER) (test bnnc=412) 14.1 GM/DL 12.0-15.0 HEMATOCRIT (BEAKER) (test shvl=871) 41.7 % 36.0-45.0 MEAN CORPUSCULAR VOLUME (BEAKER) (test rbfy=941) 99.1 fL 82.0-99.0 MEAN CORPUSCULAR HEMOGLOBIN (BEAKER) (test 33.4 pg 27.0-33.0 ifiu=612) MEAN CORPUSCULAR HEMOGLOBIN CONC (BEAKER) (test 33.7 GM/DL 32.0-36.0 vxna=849) RED CELL DISTRIBUTION WIDTH (BEAKER) (test 13.2 % 10.3-14.2 hemn=991) PLATELET COUNT (BEAKER) (test wabb=150) 77 K/CU MM 150-430 MEAN PLATELET VOLUME (BEAKER) (test brnm=038) 8.4 fL 6.5-10.5 NUCLEATED RED BLOOD CELLS (BEAKER) (test 0 /100 WBC 0-0 hhuk=741) NEUTROPHILS RELATIVE PERCENT (BEAKER) (test 54 % lpyp=247) LYMPHOCYTES RELATIVE PERCENT (BEAKER) (test 33 % toxr=709) MONOCYTES RELATIVE PERCENT (BEAKER) (test 10 % cowm=192) EOSINOPHILS RELATIVE PERCENT (BEAKER) (test 3 % esgs=310) BASOPHILS RELATIVE PERCENT (BEAKER) (test 0 % qvmu=832) NEUTROPHILS ABSOLUTE COUNT (BEAKER) (test 2.86 K/ L 1.80-8.00 veci=768) LYMPHOCYTES ABSOLUTE COUNT (BEAKER) (test 1.77 K/ L 1.48-4.50 fatp=883) MONOCYTES ABSOLUTE COUNT (BEAKER) (test bfxb=195) 0.56 K/ L 0.00-1.30 EOSINOPHILS ABSOLUTE COUNT (BEAKER) (test 0.13 K/ L 0.00-0.50 hsar=237) BASOPHILS ABSOLUTE COUNT (BEAKER) (test xwvo=344) 0.02 K/ L 0.00-0.20 0.80JQUC-[id number] 11:05:00 Test Item Value Reference Range Comments POC-CREATININE (BEAKER) 0.9 mg/dL 0.6-1.[address] [facility] [address] [facility] (test zgwf=3198) [facility] [address] POC-EGFR (BEAKER) (test 59 mL/min/1.73M2 bwcm=8406)
[2019-04-07 09:43] VITALS: BMI 22.3
[2019-04-07] MEDS ORDERED: ALBUMIN HUMAN 25% 200 ML IV ONE (11:10)
[2019-04-07] MEDS ORDERED: NA CHLORIDE 0.9% 250 ML ONE (11:13)
--- NOTE | 2019-04-07 11:23 | RAD REPORT ---
EXAM DESCRIPTION: US - Paracentesis Proc Guidance - 04/07/2019 11:05 am CLINICAL HISTORY: Ascites COMPARISON: Multiple prior paracentesis procedures TECHNIQUE: The patient presents for ultrasound-guided paracentesis. The procedure, risks and altern atives were discussed with the patient in detail. Oral and written consent were obtained. Time out p rocedure was performed. The patient had no contraindicated allergy or medication history. PT, INR va lues within acceptable limits. Preliminary sonographic evaluation identified right lower quadrant access site. The skin and deeper tissues were anesthetized with 1 percent lidocaine. Under direct sonographic visualization, a parace ntesis catheter was advanced into the peritoneal cavity. Approximately 15 mL of ascites retained for requested laboratory studies. Drainage was then initiated. Approximately 4 liters of ascites removed. At the conclusion of the procedure, catheter was withdrawn and a bandage placed at the puncture site. Postprocedure care and precaution instructions were given to the patient. Patient was transferred t o the same day surgical area pending albumin infusion per referring physician protocol. IMPRESSION: Ultrasound-guided paracentesis as detailed.
[2019-04-07 11:36] VITALS: O2SAT 98
[2019-04-07 12:53] LABS: Body Fluid WBC 104 /mm^3
[2019-04-07 13:01] VITALS: BP 96/48; TEMP 97.2
[2019-04-07 13:18] LABS: Appearance CLEAR (CLEAR); Body Fluid Source PERITONEAL; Color of fluid Yellow (COLORLESS)
== END 2019-04-07 12:35 | disposition home or self-care (01) ==
LOC: DS 08:53
PROVIDERS: ATTEND Internal Medicine Gastroenterology
DX: R18.8 Other ascites (principal); K74.60 Unspecified cirrhosis of liver; K72.90 Hepatic failure, unspecified without coma; K76.0 Fatty (change of) liver, not elsewhere classified; R60.0 Localized edema; L25.9 Unspecified contact dermatitis, unspecified cause; K30 Functional dyspepsia
CPT/HCPCS: 36415; 89050; 96365; 49083; 96366; P9047

== ENCOUNTER → 2019-04-14 | Day surgery (SDC) | payer OTHER ==
[~2019-04-14] MED LIST changes: -ALBUMIN HUMAN 25% 100 ML IV ONE
--- OUTSIDE RECORDS SUMMARY | 2019-04-14 08:20 | XMS REPORT | Clinical Summary ---
:1930 Author Organization [facility] Address [address] [place] [address] Care Team Providers Name Role Phone Kandy Castillo PA-C Physician Tube Tester Unavailable Ankush Levine Referring Physician Fareed Ballesteros [...] infection 09/06/2014 Overview: SNOMED/[place] [id number] Last Assessment & Plan: Cirrhosis of liver [...] Orders Only HepatPennie Gomez RN 10/20/2018 Abstract HepatYvonne Braun MA 10/17/2018 Telephone Hepatology Kandy Castillo, Follow-up PA-C 09/30/2018 Abstract Pennie Bahena RN 09/30/2018 Telephone HepatPennie Gomez RN Pending imaging 09/30/2018 Abstract Pennie Bahena RN 09/20/2018 Documentation HepatXiao Cesar RN 09/12/2018 Telephone HepatXiao Cesar RN other 08/11/2018 Telephone Hepatology Xiao Mckeon RN other 08/10/2018 Office Visit Hepatology Lynn Murguia MD 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 Screening for cancer; Hepatology Clinic E Encephalopathy; Abnormal breath sounds 07/11/2018 Telephone HepatXiao Cesar RN other 05/31/2018 Telephone Hepatology Xiao Mckeon RN other 05/13/2018 Abstract HepatYvonne Braun MA after 04/13/2018 Family History Medical History Relation Name Comments [...] Taken Blood Pressure 94/60 08/10/2018 2:08 PM FARM OPERATOR Pulse 92 08/10/2018 2:08 PM FARM OPERATOR Temperature 36.3 C (97.4 F) 08/10/2018 2:08 PM FARM OPERATOR Respiratory Rate 16 08/10/2018 2:08 PM FARM OPERATOR Oxygen Saturation 98% 08/10/2018 2:08 PM FARM OPERATOR Inhaled Oxygen Concentration - - Weight 58.2 kg (128 lb 6.4 oz) 08/10/2018 2:08 PM FARM OPERATOR Height 165.1 cm (5' 5") 08/10/2018 2:08 PM FARM OPERATOR Body Mass Index 21.37 08/10/2018 2:08 PM FARM OPERATOR Plan of Treatment Not on file Procedures Procedure Name Priority Date/Time Associated Comments Diagnosis CBC W/PLT COUNT & Routine 08/10/2018 3:45 Hepatic cirrhosis Results for this AUTO DIFFERENTIAL PM FARM OPERATOR due to chronic procedure are in hepatitis C the results infection (HCC) section. Screening for cancer Encephalopathy AMMONIA Routine 08/10/2018 3:45 Hepatic cirrhosis Results for this PM FARM OPERATOR due to chronic procedure are in hepatitis C the results infection (HCC) section. Screening for cancer Encephalopathy ALPHA FETOPROTEIN Routine 08/10/2018 3:45 Hepatic cirrhosis Results for this (AFP), TUMOR MARKER PM FARM OPERATOR due to chronic procedure are in hepatitis C the results infection (HCC) section. Screening for cancer Encephalopathy PROTHROMBIN TIME/INR Routine 08/10/2018 3:45 Hepatic cirrhosis Results for this PM FARM OPERATOR due to chronic procedure are in hepatitis C the results infection (HCC) section. Screening for cancer Encephalopathy CBC W/PLT COUNT & Routine 08/10/2018 3:45 Hepatic cirrhosis Results for this AUTO DIFFERENTIAL PM FARM OPERATOR due to chronic procedure are in hepatitis C the results infection (HCC) section. Screening for cancer Encephalopathy HEPATIC FUNCTION Routine 08/10/2018 3:45 Hepatic cirrhosis Results for this PANEL PM FARM OPERATOR due to chronic procedure are in hepatitis C the results infection (HCC) section. Screening for cancer Encephalopathy BASIC METABOLIC PANEL Routine 08/10/2018 3:45 Hepatic cirrhosis Results for this (7) PM FARM OPERATOR due to chronic procedure are in hepatitis C the results infection (HCC) section. Screening for cancer Encephalopathy after 04/13/2018 Results CBC with platelet count + automated diff (08/10/2018 3:45 PM FARM OPERATOR) WBC 5.0 3.5 - 10.5 K/L [facility] RBC 3.39 (L) 3.93 - 5.22 M/L [facility] Hemoglobin 10.7 (L) 11.2 - 15.7 GM/DL [facility] Hematocrit 33.1 (L) 34.1 - 44.9 % [facility] MCV 97.6 (H) 79.4 - 94.8 fL [facility] MCH 31.6 25.6 - 32.2 pg [facility] MCHC 32.3 32.2 - 35.5 GM/DL [facility] RDW 15.0 (H) 11.7 - 14.4 % [facility] Platelets 98 (L) 150 - 450 K/CU MM [facility] MPV 10.0 9.4 - 12.3 fL [facility] nRBC 0 0 - 0 /100 WBC [facility] % Neutros 71 % [facility] % Lymphs 14 % [facility] % Monos 12 % [facility] % Eos 2 % [facility] % Baso 1 % [facility] # Neutros 3.51 1.56 - 6.13 K/L [facility] # Lymphs 0.69 (L) 1.18 - 3.74 K/L [facility] # Monos 0.62 (H) 0.24 - 0.36 K/L [facility] # Eos 0.10 0.04 - 0.36 K/L [facility] # Baso 0.04 0.01 - 0.08 K/L [facility] Immature Granulocytes-Relative 0 0 - 1 % [facility] Specimen Blood Performing Organization Address [facility] Phone Number [address] [address] [phone] [place] Alpha fetoprotein (AFP), tumor marker (08/10/2018 3:45 PM FARM OPERATOR) Alpha-Fetoprotein 2.9 <10.0 ng/mL [facility] Specimen Blood Performing Organization Address [facility] Phone Number [address] [address] [place] Pro-time/INR (08/10/2018 3:45 PM FARM OPERATOR) Protime 16.5 (H) 11.7 - 14.7 seconds [facility] INR 1.3 <=5.9 [facility] Specimen Blood Narrative Performed At RECOMMENDED COUMADIN/WARFARIN INR THERAPY [facility] RANGES STANDARD DOSE: 2.0 - 3.0 Includes: PROPHYLAXIS for venous thrombosis, systemic embolization; TREATMENT for venous thrombosis and/or pulmonary embolus. HIGH RISK: Target INR is 2.5-3.5 for patients with mechanical heart valves. Performing Organization Address [facility] Phone Number [address] [address] [facility] Ammonia (08/10/2018 3:45 PM FARM OPERATOR) Ammonia 40 18 - 72 mol/L [facility] Specimen Blood Performing Organization Address [facility] Phone Number [address] [address] [facility] Hepatic function panel (08/10/2018 3:45 PM FARM OPERATOR) Protein, Total 9.0 (H) 6.0 - 8.3 gm/dL [facility] Albumin 2.8 (L) 3.5 - 5.0 g/dL [facility] Total Bilirubin 1.2 0.2 - 1.2 mg/dL [facility] Bilirubin, Direct 0.7 (H) 0.1 - 0.5 mg/dL [facility] Alkaline Phosphatase 111 40 - 150 U/L [facility] AST 31 5 - 34 U/L [facility] ALT 12 6 - 55 U/L [facility] Specimen Blood Performing Organization Address City/State/Zipcode Phone Number [address] [address] C[place] Basic Metabolic Panel (08/10/2018 3:45 PM FARM OPERATOR) Sodium 133 (L) 136 - 145 meq/L [facility] Potassium 4.0 3.5 - 5.1 meq/L [facility] Chloride 100 98 - 107 meq/L [facility] CO2 27 22 - 29 meq/L [facility] BUN 20 7 - 21 mg/dL [facility] Creatinine 1.07 0.57 - 1.25 mg/dL [facility] Glucose 71 70 - 105 mg/dL [facility] Calcium 9.4 8.4 - 10.2 mg/dL [facility] EGFR 49Comment: ESTIMATED GFR IS mL/min/1.73 sq m [facility] NOT ACCURATE CREATININE [facility] CLEARANCE IN PREDICTING GLOMERULAR FILTRATION RATE. ESTIMATED GFR IS NOT APPLICABLE FOR DIALYSIS PATIENTS. Specimen Blood Performing Organization Address City/State/Zipcode Phone Number [phone] [place] [address] CENTER after 04/13/2018 Insurance Payer Benefit Plan / Group Subscriber ID Type Phone Address MEDICARE MEDICARE A B xxxxxxxxxxx Medicare MCR GENERIC MEDICARE xxxxxxxxx [employer] SUPPLEMENT/INDIVIDUAL SUPPLEMENT
--- OUTSIDE RECORDS SUMMARY | 2019-04-14 08:25 | XMS REPORT | Continuity of Care Document ---
:1930 Author Organization Modify Care Team Providers Name Role Phone Modify Unavailable Unavailable Problems Problem Status Onset Classification [...] Active Problem 04/24/2017 Data migrated 014 from [facility][1]city on 01/28/15. Umbilical hernia5 Active Problem 01/17/2018 Data migrated Medical 014 from [facility] [place] 01/28/15. [facility] HERNIA WITHOUT Active Condition 04/27/2014 Medical MENTION 014 Group OBSTRUCTION/GANGRE NE LARGE INTESTINE Active Condition 04/27/2014 Medical CANCER 012 Group SCREENING FOR Active Condition 04/27/2014 Medical COLON CANCER 012 Group Carcinoma of Active Problem 01/17/2018 Data migrated Medical ascending colon1 011 from [facility] [place] 01/28/15. CARCINOMA, Active Condition 04/27/2014 Medical ASCENDING COLON 011 Group Cancer of colon Active Problem 01/17/2018 Medical 011 Group,[facility] CH - Chronic Active Problem 04/24/2017 hepatitis [place] DVT (Confirmed) Resolved Problem 04/24/2017 [facility] Bron[facility]itis [facility] Problem 01/17/2018 [...] Unspecified Active Diagnosis 08/26/2015 2.16.840.1. infectious disease [id number] Bacterial Active Diagnosis 08/26/2015 2.16.840.1. infection [id number] Other Active Diagnosis 08/26/2015 2.16.840.1. encephalopathy [id number] Esophageal varices Active Diagnosis 08/26/2015 2.16.840.1. [id number] Hepatic cirrhosis Active Diagnosis 08/26/2015 2.16.840.1. [id number] UTI Active Problem 08/26/2015 2.16.840.1. [id number] MALIGNANT MIGEL Active COLON NOS [place] 153.9 Active [place] HEPATOPULMONARY Active SYNDROME [place] HX OF COLONIC Active MALIGNANCY [place] URIN TRACT Active INFECTION NOS [place] INCISIONAL HERNIA Active [place] MALIGNANT NEOPLASM Active MH OF COLON, [place] UNSPECIFIED PERSONAL HISTORY Active MH OF MALIGNANT [place] NEOPLASM O CALCULUS OF KIDNEY Active [facility] Medications Medication Details Route Status Patient Ordering Order Source Instructions Provider Date Acetaminophen 2 tab, PO, Active 300 MG / Q6H, PRN 2016 [facility] Codeine Pain, X 7 Phosphate 30 MG day, # 56 Oral Tablet tab, 0 [Tylenol with Refill(s) Codeine #3] esmolol (ANES) Route: IV, Inactive Drug form: 2016 [facility] INJ, ONCE, Stop date: 08/03/17 13:22:00 VALVE FITTER ondansetron Route: IV, Inactive (ANES) Drug form: 2016 [facility] INJ, ONCE, Stop date: 08/03/17 13:07:00 VALVE FITTER propofol (ANES) Route: IV, Inactive Drug form: 2016 [facility] INJ, ONCE, Stop date: 08/03/17 13:07:00 VALVE FITTER lidocaine Route: IV, Inactive (ANES) Drug form: 2016 [facility] INJ, ONCE, Stop date: 08/03/17 13:07:00 VALVE FITTER ciprofloxacin Route: IV, Inactive (ANES) Drug form: 2016 [facility] INJ, ONCE, Stop date: 08/03/17 13:07:00 VALVE FITTER dexamethasone Route: IV, Inactive (ANES) Drug form: 2016 [facility] INJ, ONCE, Stop date: 08/03/17 13:07:00 VALVE FITTER fentaNYL (ANES) Route: IV, Inactive Drug form: 2016 [facility] INJ, ONCE, Stop date: 08/03/17 13:02:00 VALVE FITTER Calcium 1,000 mL, Inactive Chloride 0.0014 Rate: 25 2016 [facility] MEQ/ML / ml/hr, Infuse Potassium over: 40 hr, Chloride 0.004 Route: IV, MEQ/ML / Sodium Dosing Weight Chloride 0.103 74.091 kg, MEQ/ML / Sodium Total Volume: Lactate 0.028 1,000, Start MEQ/ML date: Injectable 08/03/17 Solution 12:12:00 VALVE FITTER, Duration: 30 day, Stop date: 09/02/17 12:11:00 VALVE FITTER, 1.86, m2 vancomycin Route: IV, Inactive (ANES) 1000 mg Drug form: 2016 [facility] INJ, Start date: 08/03/17 12:10:00 VALVE FITTER, Stop date: 08/03/17 13:10:00 VALVE FITTER Lactated Route: IV, Inactive Ringers Total Volume: 2016 [facility] Injection IV 1,000, Start (ANES) 1000 mL date: 08/03/17 12:10:00 VALVE FITTER, Stop date: 08/03/17 13:10:00 VALVE FITTER Ceftriaxone 1 gm, Route: No Longer IVPB, Q12H, Active 2016 [facility] Dosing Weight 74.091, kg, Start date: 08/02/17 21:00:00 VALVE FITTER, Duration: 24 hr, Stop date: 08/03/17 9:00:00 VALVE FITTER, ABX Indication: Urinary Tract Infection phenylephrine Route: IV, Inactive (ANES) Drug form: 2016 [facility] INJ, ONCE, Stop date: 04/21/17 10:51:00 CDT ondansetron Route: IV, Inactive (ANES) Drug form: 2016 [facility] INJ, ONCE, Stop date: 04/21/17 10:41:00 CDT dexamethasone Route: IV, Inactive (ANES) Drug form: 2016 [facility] INJ, ONCE, Stop date: 04/21/17 10:41:00 CDT ceFAZolin Route: IV, Inactive (ANES) Drug form: 2016 [facility] INJ, ONCE, Stop date: 04/21/17 10:41:00 CDT lidocaine Route: IV, Inactive (ANES) Drug form: 2016 [facility] INJ, ONCE, Stop date: 04/21/17 10:41:00 CDT propofol (ANES) Route: IV, Inactive Drug form: 2016 [facility] INJ, ONCE, Stop date: 04/21/17 10:41:00 CDT fentaNYL (ANES) Route: IV, Inactive Drug form: 2016 [facility] INJ, ONCE, Stop date: 04/21/17 10:41:00 CDT acetaminophen Route: IV, Inactive (ANES) (ANES) Drug form: 2016 [facility] INJ, Start date: 04/21/17 10:35:00 CDT, Stop date: 04/21/17 11:35:00 CDT sodium chloride Route: IV, Inactive 08/23/ MH 0.9% 500 ml INJ Total Volume: 2016 [facility] (ANES) 500, Start date: 04/21/17 10:08:00 CDT, Stop date: 04/21/17 11:08:00 CDT Calcium 1,000 mL, Inactive Chloride 0.0014 Rate: 25 2016 [facility] MEQ/ML / ml/hr, Infuse Potassium over: 40 hr, Chloride 0.004 Route: IV, MEQ/ML / Sodium Dosing Weight Chloride 0.103 74.545 kg, MEQ/ML / Sodium Total Volume: Lactate 0.028 1,000, Start MEQ/ML date: Injectable 04/21/17 Solution 9:53:00 CDT, Duration: 30 day, Stop date: 05/21/17 9:52:00 CDT Ocuvite 1 tab, PO, Active Daily, 0 2016 [facility] Refill(s) Furosemide 40 40 mg=1 tab, Active MG Oral Tablet PO, Daily, 0 2016 [facility] Refill(s) Vitamin D3 2000 2,000 Active intl units oral IntlUnit=1 2016 [facility] tablet tab, PO, Daily, 0 Refill(s) Albuterol 0.833 3 mL, Route: Inactive MG/ML / NEB, Drug 2016 [facility] Ipratropium Form: SOLN, [place] 0.167 Dosing Weight MG/ML Inhalant 76.364, kg, Solution ONCE, STAT, Start date: 02/23/17 9:22:00 CDT, Stop date: 02/23/17 9:22:00 CDTNotes: (Same as: Mirza) Sodium Chloride 500 mL, Rate: Inactive 0.154 MEQ/ML 25 ml/hr, 2016 [facility] Injectable Infuse over: Solution 20 hr, Route: IV, Dosing Weight 76.364 kg, Total Volume: 500, Start date: 02/23/17 9:22:00 CDT, Duration: 1 day, Stop date: 02/24/17 9:21:00 CDT Lasix 20 mg, 1 tab, No Longer Route: PO, Active 2014 [facility] Drug form: TAB, Daily, Dosing Weight 73.295, kg, Start date: 08/08/15 9:00:00, Duration: 30 day, Stop date: 09/06/15 9:00:00Notes: (Same as: Lasix) May cause GI upset. Give with food or milk. Spironolactone 12.5 mg, 0.5 No Longer tab, Route: Active 2014 [facility] PO, Drug form: TAB, Daily, Dosing [...] 20 mL, Route: Inactive IVP, Start 2014 [facility] date: 08/07/15 12:19:00, Duration: 30 day, Stop date: 09/06/15 12:18:00, PRN Line FlushNotes: preservative free. sodium chloride 10 mL, Route: Inactive IVP, Start 2014 [facility] date: 08/07/15 12:18:00, Duration: 30 day, [...] Inactive 100 MG Oral cap, Route: 2014 [facility] Capsule PO, Drug [Colace] form: CAP, Daily, Dosing Weight 73.295, kg, PRN Constipation, Start date: 08/07/15 11:09:00, Duration: 30 day, Stop date: 09/06/15 11:08:00Notes : (Same as: Colace) (Do Not Crush) Ibuprofen 400 mg, 1 Inactive tab, Route: 2014 [facility] PO, Drug form: TAB, ONCE, Dosing Weight 73.295, kg, PRN Headache 1-5, Start date: 08/06/15 21:10:00, Stop date: 08/06/15 21:10:00Notes : (Same as: Motrin) "Do Not Crush" Give with food. Lasix PO, Daily, 0 Active Refill(s) 2014 [facility] Rocephin 1 gm, Route: No Longer IVPB, Active 2014 [facility] [id number], Dosing Weight 73.295, kg, Start date: 08/06/15 9:00:00, Duration: 30 day, Stop date: 09/04/15 9:00:00Notes: (Same As: Rocephin). Use with 100 mL NS and infuse over 30 min MEDICATION WASTE Product Size: 1000 mg Product Wasted: ___ mg Lactulose 10 gm, 15 ml, Inactive Route: PO, 2014 [facility] Drug Form: SYRP, Dosing Weight 73.295, kg, ONCE, Start date: 08/06/15 3:49:00, Stop date: 08/06/15 3:49:00Notes: (Same as:Chronulac) Ondansetron 4 mg, 2 mL, No Longer Route: IVP, Active 2014 [facility] Drug form: INJ, Q6H, Dosing Weight 73.636, kg, PRN Nausea & Vomiting, Start date: 08/06/15 3:29:00, Duration: 30 day, Stop date: 09/05/15 3:28:00Notes: (Same as: Zofran) MEDICATION WASTE Product Size: 4 mg Product Wasted: ___ mg Acetaminophen 325 mg, 1 No Longer tab, Route: Active 2014 [facility] PO, Drug form: TAB, Q4H, Dosing Weight 73.636, kg, PRN Pain Score 4-6, Start date: 08/06/15 3:29:00, Duration: 30 day, Stop date: 09/05/15 3:28:00Notes: Do not exceed 4 gm/day. (Same as: Tylenol) Morphine 2 mg, Route: No Longer IVP, Q4H, Active 2014 [facility] Dosing Weight 73.636, kg, PRN Pain Score 7-10, Start date: 08/06/15 3:29:00, Duration: 30 day, Stop date: 09/05/15 3:28:00 Aspirin 325 mg, 1 No Longer tab, Route: Active 2014 [facility] PO, Drug form: ECTAB, Q24H, Dosing Weight 73.636, kg, Start date: 08/06/15 3:00:00, Duration: 30 day, Stop date: 09/04/15 3:00:00Notes: (Do Not Crush) Do not crush or chew. Saline Flush 10 mL, Route: No Longer 0.9% IVP, Drug Active 2014 [facility] Form: INJ, Dosing Weight 75.455, kg, PRN, PRN Line Flush, Start date: 08/05/15 19:05:00, Duration: 30 day, Stop date: 09/04/15 19:04:00Notes : (Same as: BD Posiflush) Docusate Sodium 100 mg=1 cap, Active 100 MG Oral PO, Daily, as 2013 [facility] Capsule needed for [Colace] constipation, # 20 cap, 0 Refill(s) gabapentin 300 300 mg=1 cap, Active MG Oral Capsule PO, BID, # 90 2013 cap, 0 Refill(s) tramadol 50 mg=1 tab, Active hydrochloride PO, Q6H, 2013 50 MG Oral Pain, # 40 Tablet tab, 0 Refill(s) Ibuprofen 400 400 mg, 1 No Longer MG Oral Tablet tab, Route: Active 2013 [facility] PO, Drug form: TAB, Q6H, Dosing Weight 64.545, kg, PRN as needed for pain, Start date: 04/19/14 14:09:00, Duration: 30 day, Stop date: 05/19/14 14:08:00Notes : (Same as: Motrin) "Do Not Crush" Give with food. Ibuprofen 600 mg, Inactive Route: PO, 2013 [facility] Q6H, Dosing Weight 64.545, kg, PRN Severe Pain, Start date: 04/19/14 14:09:00, Duration: 30 day, Stop date: 05/19/14 14:08:00 hydromorphone 0.5 mg, 0.5 No Longer mL, Route: Active 2013 [facility] IV, Drug form: INJ, Q2H, PRN Pain, Start date: 04/18/14 17:55:00, Duration: 30 day, Stop date: 05/18/14 17:54:00 Ibuprofen 600 mg, Inactive Route: PO, 2013 [facility] Q6H, Dosing Weight 64.545, kg, PRN as needed for pain, Start date: 04/18/14 17:02:00, Duration: 30 day, Stop date: 05/18/14 17:01:00 Docusate Sodium 100 mg, 1 No Longer 100 MG Oral cap, Route: Active 2013 [facility] Capsule PO, Drug form: CAP, BID, Dosing Weight 64.545, kg, Start date: 04/18/14 17:00:00, Duration: 30 day, Stop date: 05/18/14 9:00:00Notes: (Same as: Colace) (Do Not Crush) Ofirmev 1,000 mg, 100 Inactive mL, Route: 2013 [facility] IV, Drug form: INJ, Q6H, Dosing Weight 65.909, kg, for > or=50 kg, Start date: 04/18/14 12:00:00, Duration: 1 day, Stop date: 04/19/14 6:00:00Notes: Infuse over 15 minutes Do not exceed 4gm/day of acetaminophen Saline Flush 5 ml, Route: No Longer 0.9% IVP, Drug Active 2013 [facility] Form: INJ, Dosing Weight 64.545, kg, PRN, PRN Line Flush, Start date: 04/18/14 10:16:00, Duration: 30 day, Stop date: 05/18/14 10:15:00Notes : Same as: BD Posiflush Sterile Sodium Chloride 1,000 mL, No Longer 0.154 MEQ/ML Rate: 125 Active 2013 [facility] Injectable ml/hr, Infuse Solution over: 8 hr, Route: IV, Dosing Weight 64.545 kg, Total Volume: 1,000, Start date: 04/18/14 10:16:00, Duration: 30 day, Stop date: 05/18/14 10:15:00 Ondansetron 4 mg, 2 mL, No Longer Route: IVP, Active 2013 [facility] Drug form: INJ, Q6H, Dosing Weight 64.545, kg, PRN Nausea & Vomiting, Start date: 04/18/14 10:16:00, Duration: 30 day, Stop date: 05/18/14 10:15:00Notes : (Same as: Zofran) Acetaminophen 1 tab, Route: Inactive 325 MG / PO, Drug 2013 [facility] Hydrocodone Form: TAB, Bitartrate 5 MG Dosing Weight Oral Tablet 65.909, kg, Q4H, PRN Pain Score 1-3, Start date: 04/18/14 10:16:00, Duration: 30 day, Stop date: 05/18/14 10:15:00Notes : (Same as: [place] 325/5) Do not exceed 4gm/day of acetaminophen . Cefoxitin 2 gm, Route: No Longer IVPB, ONCALL, Active 2013 [facility] Dosing Weight 64.545, kg, Start date: 04/13/14 13:00:00, Duration: 30 day, Stop date: 05/13/14 12:59:00Notes : (Same As: Mefoxin) Naloxone 0.1 mg, Inactive Route: IVP, 2013 Q2MIN, Dosing Weight 65.909, kg, PRN Narcotic Reversal, Start date: 03/13/14 11:16:00, Duration: 4 doses or times, Stop date: Limited # of times Flumazenil 0.2 mg, Inactive Route: IVP, 2013 [facility] PRN, Dosing Weight 65.909, kg, PRN Other -See Comment, Start date: 03/13/14 11:16:00, Duration: 1 doses or times, Stop date: Limited # of times Sodium Chloride 1,000 mL, Inactive 0.154 MEQ/ML Rate: 25 2013 [facility] Injectable ml/hr, Infuse Solution over: 40 hr, Route: IV, Dosing Weight 65.909 kg, Total Volume: 1,000, Start date: 03/13/14 9:59:00, Duration: 30 day, Stop date: 04/12/14 9:58:00 Coconut oil Coconut oil, Active Refill(s) 0 2013 ibandronic acid 150 mg=1 tab, Active 150 MG Oral PO, qMonth, # 2013 [facility] Tablet [Boniva] 1 tab, 0 Refill(s) HM VITAMIN D3 Active Medical 2000 UNIT CAPS 2013 Group ALDACTONE 25 MG one by mouth Active Medical TABS once daily 2013 Group GABAPENTIN 300 one by mouth Active Medical MG CAPS twice daily 2013 Group BONIVA 150 MG one tablet Active Medical TABS once per 2013 Group month B-12 2500 MCG one by mouth Active 02/02[facility] Medical TABS once daily 2013 Group MOTRIN IB 200 prn Active 02/02[facility] Medical MG TABS 2013 Group COCONUT OIL OIL two teaspoons Active Medical daily 2013 Group ALDACTONE 25 MG one by mouth Active 02/02[facility] Medical TABS once daily 2013 Group GABAPENTIN 300 one by mouth Active 02/02[facility] Medical MG CAPS twice daily 2013 Group Propranolol HCl 1 tablet Orally Active 20 mg Orally Jus 2.16.840.1 daily .022650.4. 391 68 Gabapentin 1 capsule Orally Active 300 MG Orally Jus 2.16.840.1 twice a day .960407.4. (bid) 391 68 B-12 Unknown Sublingual Active 2500 MCG Jus 2.16.840.1 Sublingual .797855.4. 391 68 Ocuvite 1 tablet Orally Active Orally daily Jus 2.16.840.1 .153603.4. 391 68 Lasix 1 tablet Orally Active 40 MG Orally Jus 2.16.840.1 Once a day .073495.4. 68 Ciprofloxacin 5 ml Orally Active 500 MG/5ML Jus 2.16.840.1 (10%) Orally .989397.4. Twice a day Spironolactone 1 tablet Orally Active 25 MG Orally Jus 2.16.840.1 daily .152270.4. Caltrate 600+D 1 tablet with Orally Active 600-400 Jus 2.16.840.1 food MG-UNIT .033424.4. Orally Once a day Allergies, Adverse Reactions, Alerts Substance Category Reaction Severity Reaction Status Date Comments Source type Reported MORPHINE Drug MORPHINE allergy 2 Medical Group morphine<s Assertion Drug Active Data up>1</sup> allergy 2 migrated Medical from [facility] on 12/27/14. Originally documented as MORPHINE. Hallucinatio ns Adhesive Adverse rash Adverse Active 2.16.840. Tape Reaction Reaction 5 1.564126. 4.391.. 02576 Morphine Adverse Info Not Adverse Active 2.16.840. Sulfate Reaction Available Reaction 5 1.901535. 4.391.. 42009 morphine Assertion Drug Active allergy [place] Tape [...] 36.1 20.0 - 12 MH 40.0 /2016 [facility] HEMATOLOGY Eosinophils 1.2 0.0 - 4.0 08/03 [facility] HEMATOLOGY Monocytes 5.4 2.0 - 12.0 08/03 [facility] HEMATOLOGY Basophils 0.6 0.0 - 1.0 08/03 [facility] HEMATOLOGY Segs 56.7 45.0 - 12 MH 75.0 /2016 [facility] HEMATOLOGY Monocytes # 0.2 0.0 - 0.8 08/03 [facility] HEMATOLOGY Lymphocytes 1.0 1.0 - 5.5 08/03 MH # /2017 [facility] HEMATOLOGY Segs-Bands # 1.6 1.5 - 8.1 08/03 [facility] HEMATOLOGY MPV 9.2 7.4 - 10.4 08/03 [facility] HEMATOLOGY RDW 16.5 11.5 - 12 MH 14.5 [facility] HEMATOLOGY Platelet 62 133 - 450 12 [facility] HEMATOLOGY Hct 39.3 36.0 - 12 MH 48.0 /2017 [facility] HEMATOLOGY Hgb 13.2 12.0 - 12 MH 16.0 /2016 [facility] HEMATOLOGY RBC 4.14 4.20 - 12 MH 5.40 /2016 [facility] HEMATOLOGY MCH 31.9 27.0 - 12/ MH 31.0 /2016 [facility] HEMATOLOGY MCV 95.1 80.0 - 12 MH 98.0 /2016 [facility] HEMATOLOGY MCHC 33.6 32.0 - 12 MH 36.0 /2017 [facility] HEMATOLOGY WBC 2.8 3.7 - 10.4 08/03 [place] CHEM PANEL eGFR 59 08/02 [facility] Comment: The [facility] eGFR is calculated using the CKD-EPI formula. [...] Direct 0.3 0.0 - 0.3 12/ /2016 [facility] CHEM PANEL Bili 1.5 0.0 - 1.0 12/ MH Indirect /2016 [facility] CHEM PANEL A/G Ratio 0.5 0.7 - 1.6 08/02 /2016 [facility] CHEM PANEL Globulin 4.6 2.7 - 4.2 12/ /2016 [facility] HEMATOLOGY RBC 3.92 4.20 - 12 MH 5.40 /2016 [facility] HEMATOLOGY WBC 5.1 3.7 - 10.4 12 /2016 [facility] HEMATOLOGY Hgb 12.3 12.0 - 12 MH 16.0 /2016 [facility] HEMATOLOGY RDW 15.9 11.5 - 12 MH 14.5 /2016 [facility] HEMATOLOGY MCHC 33.4 32.0 - 12 MH 36.0 /2016 [facility] HEMATOLOGY MCH 31.3 27.0 - 12/ MH 31.0 /2016 [facility] HEMATOLOGY Hct 36.7 36.0 - 08/02 MH 48.0 /2016 [facility] HEMATOLOGY MCV 93.6 80.0 - 08/02 MH 98.0 /2016 [facility] HEMATOLOGY MPV 8.9 7.4 - 10.4 12 /2016 [facility] HEMATOLOGY Platelet 82 133 - 450 12 /2016 [facility] HEMATOLOGY INR 1.49 0.85 - 08/02 MH 1.17 /2016 [facility] HEMATOLOGY PT 18.1 12.0 - 08/02 MH 14.7 /2016 [facility] HEMATOLOGY PTT 33.0 22.9 - 12/ MH 35.8 /2017 [facility] HEMATOLOGY Segs-Bands # 2.6 1.5 - 8.1 [...] ELECTROLYT eGFR 46 04/13 Result Comment: The [facility] eGFR is calculated using the CKD-EPI formula. [...] 0.50 - 04/13 ES Lvl 1.40 /2016 [facility] ELECTROLYT BUN 13 7 - 22 04/13 ES /2016 [facility] ELECTROLYT Potassium 4.3 3.5 - 5.1 04/13 ES Lvl /2016 [place] ELECTROLYT Sodium Lvl 142 135 - 145 04/13 ES [facility] ELECTROLYT Chloride Lvl 107 95 - 109 04/13 ES /2016 [facility] ELECTROLYT CO2 25 24 - 32 04/13 ES /2016 [facility] ELECTROLYT Calcium Lvl 9.3 8.5 - 10.5 04/13 ES [facility] ELECTROLYT Glucose Lvl 101 70 - 99 04/13 ES [facility] HEMATOLOGY Eosinophils 0.2 0.0 - 0.5 04/13 MH # /2016 [facility] HEMATOLOGY Basophils # 0.1 0.0 - 0.2 04/13 [facility] HEMATOLOGY Monocytes # 0.6 0.0 - 0.8 04/13 [facility] HEMATOLOGY Lymphocytes 1.8 1.0 - 5.5 04/13 MH # /2016 [facility] HEMATOLOGY Segs-Bands # 3.0 1.5 - 8.1 04/13 [facility] HEMATOLOGY Basophils 0.9 0.0 - 1.0 04/13 [facility] HEMATOLOGY Monocytes 10.4 2.0 - 12.0 04/13 [facility] HEMATOLOGY Eosinophils 3.0 0.0 - 4.0 04/13 [facility] HEMATOLOGY Segs 53.7 45.0 - 04/13 MH 75.0 /2017 [facility] HEMATOLOGY Lymphocytes 32.0 20.0 - 04/13 MH 40.0 /2017 [facility] HEMATOLOGY INR 1.27 0.85 - 04/13 MH 1.17 /2016 [facility] HEMATOLOGY PT 16.2 12.0 - 04/13 MH 14.7 /2016 [facility] HEMATOLOGY MPV 8.9 7.4 - 10.4 04/13 [facility] HEMATOLOGY RDW 15.4 11.5 - 04/13 MH 14.5 [facility] HEMATOLOGY Platelet 79 133 - 450 04/13 [facility] HEMATOLOGY MCH 32.2 27.0 - 04/13 MH 31.0 /2016 [facility] MCHC 33.3 32.0 - 04/13 MH 36.0 /2017 [facility] RBC 4.00 4.20 - 04/13 MH 5.40 /2016 [facility] HEMATOLOGY MCV 96.5 80.0 - 04/13 MH 98.0 /2017 [facility] HEMATOLOGY Hct 38.6 36.0 - 04/13 MH 48.0 /2016 [facility] Hgb 12.9 12.0 - 04/13 MH 16.0 [facility] WBC 5.6 3.7 - 10.4 04/13 [facility] HEMATOLOGY PTT 28.2 22.9 - 04/13 MH 35.8 /2017 [facility] ELECTROLYT AGAP 7.1 10.0 - 02/16 ES 20.0 [facility] ELECTROLYT eGFR 54 02/16 Result Comment: The [facility] eGFR is calculated using the CKD-EPI formula. [...] Lvl 8.8 8.5 - 10.5 02/16 MH [facility] ELECTROLYT Chloride Lvl 107 95 - 109 02/16 ES [facility] ELECTROLYT CO2 30 24 - 32 02/16 [facility] ELECTROLYT Potassium 4.1 3.5 - 5.1 02/16 ES Lvl /2016 [facility] ELECTROLYT Glucose Lvl 75 70 - 99 02/16 ES [facility] ELECTROLYT BUN 11 7 - 22 02/16 [facility] ELECTROLYT Creatinine 0.95 0.50 - 02/16 ES Lvl 1.40 [facility] ELECTROLYT Sodium Lvl 140 135 - 145 02/16 [facility] HEMATOLOGY Hgb 13.0 12.0 - 02/16 16.0 [facility] HEMATOLOGY Hct 38.8 36.0 - 02/16 48.0 [facility] TUMOR CEA 11.8 0.0 - 3.0 02/16 MH [facility] CHEM PANEL A/G Ratio 0.6 0.7 - 1.6 08/07 [facility] CHEM PANEL AGAP 11.9 10.0 - 08/07 MH 20.0 [facility] CHEM PANEL Globulin 4.1 2.0 - 4.0 08/07 [facility] CHEM PANEL B/C Ratio 15 6 - 25 08/07 [facility] CHEM PANEL eGFR 61 08/07 [facility] Comment: The [facility] eGFR is calculated using the CKD-EPI formula. [...] Magnesium 1.9 1.8 - 2.4 08/07 Lvl [facility] HEMATOLOGY MPV 8.8 7.4 - 10.4 08/07 [facility] HEMATOLOGY Platelet 54 133 - 450 08/07 [facility] HEMATOLOGY MCHC 33.1 32.0 - 12 MH 36.0 /2014 [facility] HEMATOLOGY RDW 14.7 11.5 - 08/07 MH 14.5 /2014 [facility] HEMATOLOGY MCV 97.0 80.0 - 08/07 MH 98.0 /2014 [facility] HEMATOLOGY MCH 32.1 27.0 - 12 MH 31.0 /2014 [facility] HEMATOLOGY RBC 3.54 4.20 - 12 MH 5.40 /2014 [facility] HEMATOLOGY WBC 3.6 3.7 - 10.4 08/07 [facility] HEMATOLOGY Hct 34.3 36.0 - 08/07 MH 48.0 [facility] HEMATOLOGY Hgb 11.4 12.0 - 12 MH 16.0 /2014 [facility] HEMATOLOGY Monocytes # 0.2 0.0 - 0.8 08/07 [facility] HEMATOLOGY Eosinophils 1.3 0.0 - 4.0 08/07 [facility] HEMATOLOGY Monocytes 7.0 2.0 - 12.0 08/07 [facility] HEMATOLOGY Lymphocytes 1.1 1.0 - 5.5 / MH # /2015 [facility] HEMATOLOGY Basophils 0.6 0.0 - 1.0 08/07 [facility] HEMATOLOGY Segs-Bands # 2.2 1.5 - 8.1 08/07 [facility] HEMATOLOGY Segs 61.3 45.0 - 08/07 MH 75.0 /2014 [facility] HEMATOLOGY Lymphocytes 29.8 20.0 - 08/07 MH 40.0 /2014 [facility] URINE AND UA Nitrite Negative Negative 08/06 STOOL (08/06/15 3:01 PM) /2014 [facility] URINE AND UA Leuk Est Large Negative 08/06 STOOL *ABN* /2014 [facility] (08/06/15 3:01 PM) URINE AND UA Blood Moderate Negative 08/06 STOOL *ABN* /2014 [facility] (08/06/15 3:01 PM) URINE AND UA Bili Negative Negative 08/06 STOOL *NA* /2014 [facility] (08/06/15 3:01 PM) URINE AND UA >=8.0 0.1 - 1.0 08/06 STOOL Urobilinogen * [facility] (08/06/15 3:01 PM) URINE AND UA Color Yellow Yellow 08/06 STOOL *NA* /2014 (08/06/15 3:01 PM) URINE AND UA Turbidity Cloudy Clear 08/06 STOOL *ABN* /2014 [facility] (08/06/15 3:01 PM) URINE AND UA Glucose Negative Negative 08/06 STOOL (08/06/15 3:01 PM) /2014 [facility] URINE AND UA Ketones Negative Negative 08/06 STOOL *NA* /2014 [facility] (08/06/15 3:01 PM) URINE AND UA Spec Grav 1.015 <=1.030 08/06 STOOL [facility] URINE AND UA pH 6.5 5.0 - 8.0 08/06 STOOL [facility] URINE AND UA Protein 30 mg/dL Negative 08/06 STOOL mg/dL /2014 [facility] URINE AND UA Sq Epi Few /LPF Few /LPF 08/06 STOOL [facility] URINE AND UA [place] Yeast Many /HPF None Seen 08/06 STOOL [...] Est Moderate Negative 08/06 STOOL *ABN* /2014 [facility] (08/05/15 10:40 PM) URINE AND UA 1.0 [...] Color Yellow Yellow 08/06 STOOL *NA* /2014 [facility] (08/05/15 10:40 PM) URINE AND UA Protein Negative Negative 08/06 STOOL (08/05/15 10:40 PM) [facility] URINE AND UA pH 6.0 5.0 - 8.0 08/06 MH STOOL /2014 [facility] CARDIAC CK MB 5.3 0.5 - 3.6 08/06 ENZYMES /2014 [facility] CARDIAC Total CK 116 12 - 191 08/06 ENZYMES [facility] CARDIAC BNP 45 <=100 08/06 ENZYMES pg/mL /2014 [facility] CARDIAC Troponin-I <0.02 0.00 - 12 ENZYMES 0.40 /2014 [facility] CARDIAC CK MB Index 4.6 0.0 - 2.5 08/06 ENZYMES [facility] CHEM PANEL Ammonia 47.0 <=45.0 08/06 uMol/L /2014 [facility] CHEM PANEL Alk Phos 118 39 - 136 08/06 [facility] CHEM PANEL Total 7.4 6.4 - 8.4 08/06 Protein /2014 [facility] CHEM PANEL Calcium Lvl 8.5 8.5 - 10.5 08/06 [facility] CHEM PANEL eGFR 67 08/06 [facility] Comment: The [facility] eGFR is calculated using the CKD-EPI formula. [...] Bili Total 1.0 0.2 - 1.3 08/06 [facility] CHEM PANEL A/G Ratio 0.6 0.7 - 1.6 08/06 [facility] CHEM PANEL ALT 21 0 - 65 08/06 [facility] CHEM PANEL Albumin Lvl 2.7 3.5 - 5.0 08/06 [facility] CHEM PANEL AST 27 0 - 37 08/06 [facility] CHEM PANEL AGAP 11.5 10.0 - 08/06 MH 20.0 /2014 [facility] CHEM PANEL Globulin 4.7 2.0 - 4.0 12/ /2014 [facility] CHEM PANEL B/C Ratio 14 6 - 25 12 [facility] CHEM PANEL BUN 11 7 - 22 08/06 [facility] CHEM PANEL Chloride Lvl 106 95 - 109 12 [facility] CHEM PANEL Creatinine 0.81 0.50 - 12 Lvl 1.40 /2014 [facility] CHEM PANEL Potassium 3.5 3.5 - 5.1 12 Lvl /2014 [facility] CHEM PANEL Sodium Lvl 140 135 - 145 12 [facility] CHEM PANEL CO2 26 24 - 32 12 [facility] CHEM PANEL Glucose Lvl 109 70 - 99 12 [facility] HEMATOLOGY MPV 9.1 7.4 - 10.4 08/06 [facility] HEMATOLOGY RDW 15.4 11.5 - 12 14.5 /2014 [facility] HEMATOLOGY Platelet 70 133 - 450 12 /2014 [facility] HEMATOLOGY MCHC 33.1 32.0 - 12 36.0 /2014 [facility] HEMATOLOGY MCH 32.1 27.0 - 12 31.0 /2014 [facility] HEMATOLOGY MCV 97.2 80.0 - 12/ 98.0 /2014 [facility] HEMATOLOGY Hct 36.5 36.0 - 12 48.0 /2014 [facility] HEMATOLOGY Hgb 12.1 12.0 - 12 16.0 /2014 [facility] HEMATOLOGY RBC 3.76 4.20 - 12 MH 5.40 /2014 [facility] HEMATOLOGY WBC 6.0 3.7 - 10.4 08/06 /2014 [facility] HEMATOLOGY Monocytes # 0.5 0.0 - 0.8 08/06 /2014 [facility] HEMATOLOGY Eosinophils 0.1 0.0 - 0.5 12/08 MH # /2015 [facility] HEMATOLOGY Lymphocytes 1.8 1.0 - 5.5 12/08 MH # /2015 [facility] HEMATOLOGY Basophils 0.6 0.0 - 1.0 08/06 /2014 [facility] HEMATOLOGY Segs-Bands # 3.6 1.5 - 8.1 08/06 /2014 [facility] HEMATOLOGY Monocytes 8.4 2.0 - 12.0 12/ /2014 [facility] HEMATOLOGY Eosinophils 2.0 0.0 - 4.0 / /2014 [facility] HEMATOLOGY Lymphocytes 29.3 20.0 - 12 MH 40.0 /2014 [facility] HEMATOLOGY Segs 59.7 45.0 - 12 MH [...] PANEL CO2 26 24 - 32 08/05 [facility] CHEM PANEL Glucose Lvl 93 70 - 99 08/05 [facility] CHEM PANEL Sodium Lvl 140 135 - 145 08/05 [facility] CHEM PANEL BUN 12 7 - 22 08/05 [facility] CHEM PANEL Creatinine 0.88 0.50 - 08/05 Lvl 1.40 [facility] CHEM PANEL eGFR 60 08/05 [facility] Comment: The [facility] eGFR is calculated using the CKD-EPI formula. [...] Bili Total 0.9 0.2 - 1.3 08/05 [facility] CHEM PANEL Alk Phos 126 39 - 136 08/05 [facility] CHEM PANEL Albumin Lvl 2.7 3.5 - 5.0 08/05 [facility] CHEM PANEL ALT 22 0 - 65 08/05 [facility] CHEM PANEL AST 27 0 - 37 12 /2014 [facility] CHEM PANEL AGAP 11.8 10.0 - 12 MH 20.0 /2014 [facility] CHEM PANEL B/C Ratio 14 6 - 25 08/05 /2014 [facility] CHEM PANEL A/G Ratio 0.6 0.7 - 1.6 08/05 /2014 [facility] CHEM PANEL Globulin 4.6 2.0 - 4.0 08/05 [facility] HEMATOLOGY MPV 8.9 7.4 - 10.4 08/05 /2014 [facility] HEMATOLOGY RDW 15.3 11.5 - 08/05 MH 14.5 /2014 [facility] HEMATOLOGY Platelet 69 133 - 450 12 [facility] HEMATOLOGY Hct 37.6 36.0 - 08/05 MH 48.0 /2014 [facility] HEMATOLOGY MCHC 32.8 32.0 - 08/05 MH 36.0 /2014 [facility] HEMATOLOGY Hgb 12.4 12.0 - 08/05 MH 16.0 /2014 [facility] HEMATOLOGY MCV 96.5 80.0 - 08/05 98.0 /2014 [facility] HEMATOLOGY MCH 31.7 27.0 - 08/05 MH 31.0 /2014 [facility] HEMATOLOGY WBC 6.2 3.7 - 10.4 08/05 /2014 [facility] HEMATOLOGY RBC 3.90 4.20 - 08/05 MH 5.40 /2014 [facility] HEMATOLOGY Monocytes # 0.5 0.0 - 0.8 08/05 /2014 [facility] HEMATOLOGY Basophils 0.6 0.0 - 1.0 08/05 /2014 [facility] HEMATOLOGY Segs-Bands # 4.2 1.5 - 8.1 08/05 /2014 [facility] HEMATOLOGY Eosinophils 0.1 0.0 - 0.5 08/05 MH # /2014 [facility] HEMATOLOGY Lymphocytes 1.4 1.0 - 5.5 08/05 MH # /2014 [facility] HEMATOLOGY Lymphocytes 22.3 20.0 - 12 MH 40.0 /2014 [facility] HEMATOLOGY Monocytes 7.3 2.0 - 12.0 08/05 [facility] HEMATOLOGY Eosinophils 1.4 0.0 - 4.0 08/05 [facility] HEMATOLOGY Segs 68.4 45.0 - 08/05 MH 75.0 /2014 [facility] HEMATOLOGY Basophils 0.4 0.0 - 1.0 04/19 [facility] HEMATOLOGY Monocytes # 0.9 0.0 - 0.8 04/19 /2013 [facility] HEMATOLOGY Lymphocytes 1.0 1.0 - 5.5 04/19 MH # /2014 [facility] HEMATOLOGY Segs-Bands # 4.2 1.5 - 8.1 04/19 /2013 [facility] HEMATOLOGY Eosinophils 0.2 0.0 - 0.5 04/19 MH # /2013 [facility] HEMATOLOGY Eosinophils 2.7 0.0 - 4.0 04/19 /2013 [facility] HEMATOLOGY Monocytes 13.7 2.0 - 12.0 04/19 /2013 [facility] HEMATOLOGY Lymphocytes 16.6 20.0 - 04/19 MH 40.0 /2013 [facility] HEMATOLOGY Segs 66.6 45.0 - 04/19 MH 75.0 /2013 [facility] HEMATOLOGY MCHC 33.3 32.0 - 04/19 MH 36.0 /2013 [facility] HEMATOLOGY RDW 15.2 11.5 - 04/19 MH 14.5 /2013 [facility] HEMATOLOGY MCH 32.3 27.0 - 04/19 MH 31.0 /2013 [facility] HEMATOLOGY MCV 96.9 80.0 - 04/19 98.0 /2013 [facility] HEMATOLOGY Hct 30.1 36.0 - 04/19 MH 48.0 /2013 [facility] HEMATOLOGY Platelet 67 133 - 450 04/19 /2013 [facility] HEMATOLOGY MPV 8.4 7.4 - 10.4 04/19 /2013 [facility] HEMATOLOGY Hgb 10.0 12.0 - 04/19 16.0 /2013 [facility] HEMATOLOGY RBC 3.11 4.20 - 04/19 MH 5.40 /2013 [facility] WBC 6.3 3.7 - 10.4 04/19 [facility] CHEM PANEL Globulin 4.8 2.0 - 4.0 04/13 [facility] CHEM PANEL A/G Ratio 0.6 0.7 - 1.6 04/13 [facility] CHEM PANEL AGAP 13.4 10.0 - 04/13 MH 20.0 [facility] CHEM PANEL B/C Ratio 9 6 - 25 04/13 [facility] CHEM PANEL eGFR 59 04/13 <sup>1</sup>R esult [facility] Comment: The eGFR is calculated using the [...] Albumin Lvl 2.9 3.5 - 5.0 04/13 [facility] CHEM PANEL ALT 23 0 - 65 04/13 [facility] CHEM PANEL AST 44 0 - 37 04/13 [facility] CHEM PANEL Alk Phos 122 39 - 136 04/13 [facility] CHEM PANEL Total 7.7 6.4 - 8.4 04/13 [facility] CHEM PANEL Bili Total 1.5 0.2 - 1.3 04/13 [facility] CHEM PANEL Sodium Lvl 144 135 - 145 04/13 [facility] CHEM PANEL Potassium 3.4 3.5 - 5.1 04/13 Lvl [facility] CHEM PANEL Chloride Lvl 106 95 - 109 04/13 [facility] CHEM PANEL CO2 28 24 - 32 04/13 [facility] CHEM PANEL Calcium Lvl 8.8 8.5 - 10.5 04/13 [facility] CHEM PANEL Creatinine 0.9 0.5 - 1.4 04/13 Lvl [facility] CHEM PANEL Glucose Lvl 71 70 - 99 04/13 <sup>2</sup>I nterpretive [facility] Data: Adult reference range values reflect the clinical guidelines
of the [place] [employer]. CHEM PANEL BUN 8 7 - 22 04/13 [facility] CHEM PANEL A/G Ratio 0.6 0.7 - 1.6 04/13 [facility] CHEM PANEL Globulin 4.8 2.0 - 4.0 04/13 [facility] CHEM PANEL Bili 0.8 0.0 - 1.0 04/13 [facility] CHEM PANEL ALT 23 0 - 65 04/13 [facility] CHEM PANEL Alk Phos 122 39 - 136 04/13 [facility] CHEM PANEL AST 45 0 - 37 08 /2013 [facility] CHEM PANEL Bili Direct 0.5 0.0 - 0.3 04/13 /2013 [facility] CHEM PANEL Bili Total 1.3 0.2 - 1.3 04/13 [facility] CHEM PANEL Total 7.7 6.4 - 8.4 04/13 Protein /2013 [facility] CHEM PANEL Albumin Lvl 2.9 3.5 - 5.0 04/13 /2013 [facility] HEMATOLOGY MCH 32.1 27.0 - 08 MH 31.0 /2013 [facility] HEMATOLOGY RDW 14.6 11.5 - 08 MH 14.5 /2013 [facility] HEMATOLOGY MCHC 33.1 32.0 - 08 36.0 /2013 [facility] HEMATOLOGY Platelet 76 133 - 450 04/13 /2013 [facility] HEMATOLOGY RBC 3.79 4.20 - 04/13 MH 5.40 /2013 [facility] HEMATOLOGY Hct 36.7 36.0 - 04/13 48.0 /2013 [facility] HEMATOLOGY MCV 97.0 81.0 - 04/13 99.0 /2013 [facility] HEMATOLOGY Hgb 12.1 12.0 - 04/13 16.0 /2013 [facility] HEMATOLOGY WBC 4.6 3.7 - 10.4 04/13 /2013 [facility] HEMATOLOGY MPV 8.9 7.4 - 10.4 04/13 /2013 [facility] HEMATOLOGY Segs 52.6 45.0 - 04/13 75.0 /2013 [facility] HEMATOLOGY Monocytes # 0.6 0.0 - 0.8 04/13 /2013 [facility] HEMATOLOGY Eosinophils 0.1 0.0 - 0.5 04/13 MH # /2014 [facility] HEMATOLOGY Basophils 1.0 0.0 - 1.0 04/13 /2013 [facility] HEMATOLOGY Segs-Bands # 2.4 1.5 - 8.1 04/13 /2013 [facility] HEMATOLOGY Lymphocytes 1.5 1.0 - 5.5 04/13 MH # /2014 [facility] HEMATOLOGY Lymphocytes 32.1 20.0 - 08 MH 40.0 /2013 [facility] HEMATOLOGY Monocytes 12.2 2.0 - 12.0 04/13 /2013 [facility] HEMATOLOGY Eosinophils 2.1 0.0 - 4.0 04/13 /2013 [facility] CHEM PANEL AST 43 0 - 37 07 /2013 [facility] CHEM PANEL Albumin Lvl 2.9 3.5 - 5.0 03/06 MH [facility] CHEM PANEL Total 7.7 6.4 - 8.4 / MH Protein /2013 [facility] CHEM PANEL Bili Direct 0.5 0.0 - 0.3 03/06 MH [facility] CHEM PANEL Alk Phos 137 39 - 136 / MH [facility] CHEM PANEL Bili Total 1.4 0.2 - 1.3 03/06 [facility] CHEM PANEL ALT 22 0 - 65 / MH [facility] CHEM PANEL Bili 0.9 0.0 - 1.0 / MH Indirect /2013 [facility] CHEM PANEL Globulin 4.8 2.0 - 4.0 03/06 MH [facility] CHEM PANEL A/G Ratio 0.6 0.7 - 1.6 03/06 [facility] ELECTROLYT AGAP 8.9 10.0 - 07/ MH ES 20.0 /2013 [facility] ELECTROLYT eGFR 59 07 <sup>1</sup>R MH ES esult [facility] Comment: The eGFR is calculated using the [...] 28 24 - 32 / MH ES [facility] ELECTROLYT Calcium Lvl 8.7 8.5 - 10.5 03/06 MH ES [facility] ELECTROLYT BUN 9 7 - 22 / MH ES [facility] ELECTROLYT Creatinine 0.9 0.5 - 1.4 / MH ES Lvl /2013 [facility] ELECTROLYT Sodium Lvl 140 135 - 145 03/06 MH [facility] ELECTROLYT Potassium 3.9 3.5 - 5.1 03/06 ES Lvl /2013 [facility] ELECTROLYT Chloride Lvl 107 95 - 109 03/06 [facility] ELECTROLYT Glucose Lvl 84 70 - 99 03/06 <sup>2</sup>I nterpretive [facility] Data: Adult reference range values reflect the clinical guidelines
of the [place] [employer]. HEMATOLOGY Hgb 11.9 12.0 - 03/06 16.0 /2013 [facility] HEMATOLOGY Hct 35.2 36.0 - 03/06 48.0 /2013 [facility] HEMATOLOGY Platelet 80 133 - 450 03/06 [facility] HEMATOLOGY WBC 4.4 3.7 - 10.4 03/06 [facility] HEMATOLOGY PT 15.9 12.0 - 03/06 14.7 [facility] HEMATOLOGY INR 1.29 0.85 - 03/06 <sup>3</sup>I 1.17 nterpretive [facility] Data: RECOMMENDED RANGES FOR PROTIME INR:
2.0-3.0 for most medical and surgical thromboemboli c states.
2.5-3.5 for artificial heart valves and recurrent embolism.<br/ >
INR SHOULD BE USED ONLY FOR PATIENTS ON STABLE ANTICOAGULANT THERAPY. HEMATOLOGY PTT 32.6 22.9 - 03/06 <sup>4</sup>I 35.8 /2013 nterpretive [facility] Data: Heparin Therapeutic Range: 57 - 92 Seconds TUMOR CEA 12.2 0.0 - 3.0 03/06 [facility] Pathology Reports No Data Provided for This Section Diagnostic Reports Report Value Date Source Renal pyelogram Patient Name: EDGARD DÍAZ 08/03/2017 [facility] retrograde DX : 1930; Age: 86 years Female MR: [id number] Study: Renal pyelogram retrograde DX 08/03/2017 3:09 PM VALVE FITTER CLINICAL INDICATION: bilateral lithotripsy Bilateral stent placement - Fluoro time 2.22 min Dose 17.35 mgy C #3 OR 4 COMPARISON: None FINDINGS: Limited intraoperative fluoroscopic images provided for retrograde pyelography. Contrast administration demonstrates moderate bilateral hydronephrosis. Subsequently bilateral ureteral stents were placed. Refer to operative report for full details. SL: BRUNA-M PET CT Colorectal CA Patient Name: EDGARD ÍDAZ 03/04/2017 [facility] restaging : 1930; Age: 86 years y/o Female MR: [id number] Study: PET CT Colorectal CA restaging 03/04/2017 [...] urinary bladder suspicious for chronic cystitis. SL: [id number] Carotid artery Doppler CAROTID DOPPLER 08/06/2015 [facility] US HISTORY: Mental status changes. Encephalopathy. [...] Chest 1view DX Chest one view: 08/05/2015 [facility] COMPARISON: 04/19/2014 FINDINGS: Limited AP portable study. [...] CT PROCEDURE: Brain wo contrast CT 08/05/2015 [facility] REASON FOR EXAM: pt from IV therapy [...] 2 views EXAM: Chest 2 views 04/19/2014 [facility] DATE: Apr 19, 2014 09:48:02 AM INDICATION: [...] PET CT Colorectal CA PET/CT SCAN: 03/24/2014 [facility] restaging TECHNIQUE: 14 mCi of FDG were [...] hypertension. SL:[address] Colorectal CA 09/14/2013 [facility] restaging EXAM: PET/CT HISTORY: Colon cancer, restaging. [...] Comments Source Systolic (mm Hg) 125 08/03/2017 [facility] Diastolic (mm Hg) 71 08/03/2017 [facility] Systolic (mm Hg) 129 08/03/2017 [facility] Diastolic (mm Hg) 66 08/03/2017 [facility] Systolic (mm Hg) 128 08/03/2017 [facility] Diastolic (mm Hg) 59 08/03/2017 [facility] Respitory Rate 16 08/03/2017 [facility] Respitory Rate 11 08/03/2017 [facility] Respitory Rate 9 08/03/2017 [facility] Temperature Oral (F) 97.3 F 08/02/2017 [facility] Heart Rate 70 08/02/2017 [facility] BMI Calculated 27.18 08/02/2017 [facility] Height 165.1 cm 08/02/2017 [facility] Weight 74.091 08/02/2017 [facility] Systolic (mm Hg) 99 04/21/2017 [facility] Diastolic (mm Hg) 56 04/21/2017 [facility] Respitory Rate 18 04/21/2017 [facility] Respitory Rate 18 04/21/2017 [facility] Systolic (mm Hg) 114 04/21/2017 [facility] Diastolic (mm Hg) 58 04/21/2017 [facility] Systolic (mm Hg) 109 04/21/2017 [facility] Diastolic (mm Hg) 56 04/21/2017 [facility] Respitory Rate 12 04/21/2017 [facility] Height 165.1 cm 04/13/2017 [facility] Weight 74.545 04/13/2017 [facility] BMI Calculated 27.35 04/13/2017 [facility] Temperature Oral (F) 97.4 F 04/13/2017 [facility] Heart Rate 80 04/13/2017 [facility] Systolic (mm Hg) 118 02/23/2017 [facility] Diastolic (mm Hg) 61 02/23/2017 [facility] Respitory Rate 32 02/23/2017 [facility] Respitory Rate 28 02/23/2017 [facility] Systolic (mm Hg) 109 02/23/2017 [facility] Diastolic (mm Hg) 60 02/23/2017 [facility] Systolic (mm Hg) 109 02/23/2017 [facility] Diastolic (mm Hg) 61 02/23/2017 [facility] Respitory Rate 23 02/23/2017 [facility] Temperature Oral (F) 97.4 F 02/16/2017 [facility] Heart Rate 72 02/16/2017 [facility] BMI Calculated 28.02 02/16/2017 [facility] Weight 76.364 02/16/2017 [facility] Height 165.1 cm 02/16/2017 [facility] Weight 159 08/12/2015 [id number] Height 64.4 08/12/2015 [id number] Temperature Oral (F) 97.6 F 08/12/2015 [id number] Heart Rate 93 08/12/2015 [id number] Diastolic (mm Hg) 63 08/12/2015 [id number] Systolic (mm Hg) 114 08/12/2015 [id number] Systolic (mm Hg) 102 08/07/2015 [facility] Diastolic (mm Hg) 66 08/07/2015 [facility] Temperature Oral (F) 97.6 F 08/07/2015 [facility] Respitory Rate 16 08/07/2015 [facility] Heart Rate 77 08/07/2015 [facility] Respitory Rate 15 08/07/2015 [facility] Temperature Oral (F) 97.4 F 08/07/2015 [facility] Heart Rate 81 08/07/2015 [facility] Systolic (mm Hg) 100 08/07/2015 [facility] Diastolic (mm Hg) 66 08/07/2015 [facility] Systolic (mm Hg) 115 08/07/2015 [facility] Diastolic (mm Hg) 73 08/07/2015 [facility] Heart Rate 83 08/07/2015 [facility] Respitory Rate 16 08/07/2015 [facility] Temperature Oral (F) 97.4 F 08/07/2015 [facility] BMI Calculated 26.89 08/06/2015 [facility] Weight [...] 16 04/20/2014 [facility] Heart Rate 92 04/20/2014 [facility] Temperature Oral (F) 98.2 F 04/20/2014 [facility] Systolic (mm Hg) 109 04/20/2014 [facility] Diastolic (mm Hg) 70 04/20/2014 [facility] Heart Rate 90 04/20/2014 [facility] Temperature Oral (F) 97.9 F 04/20/2014 [facility] [...] 03/13/2014 [facility] Systolic (mm Hg) 113 03/13/2014 [facility] Diastolic (mm Hg) 54 03/13/2014 [facility] Temperature Oral (F) 97.6 F 03/06/2014 [facility] Height 165.1 cm 03/06/2014 [facility] Weight 65.909 03/06/2014 [facility] BMI Calculated 24.18 03/06/2014 [facility] Weight 149 02/02/2014 [facility] Temperature [...] Number For Provider Date Date Visit Outpatient [id number] COLON PING NORMAN 09/14 Active [facility] Outpatient [id number] 153.9 PING NORMAN 09/20 Active [facility] Bedded [id number] [facility] 03/13 03/13 [facility] Outpatient 0 [facility] Office [id number] Dakota Michele, 03/23 03/23 [facility] General Surgery 350 [facility] Outpatient [id number] Ping Norman 03/24 03/25 [facility] Lab Report [id number] Dakota Michele, 03/26 03/26 [place] [address] [facility] Lab Report [id number] odoros 04/12 04/12 [place] 52157 ian Medical MD [facility] OBS [id number] Dakota Michele 04/18 04/20 [place] [facility] Office [id number] Dakota Michele, 04/27 04/27 [place] Visit 12951 [facility] General Surgery [facility] [id number] Ping Norman 08/05 09/04 [place] [facility] OBS [id number] Van 08/06 08/07 [place] Observation 3 [facility] [id number] 08/12 08/12 2.16.840 Medical [id number]-95 /2014 .1.69980 Group [id number]. [id number] 11.40870 Outpatient [id number] [facility] 0 [facility]OY [place] Outpatient [id number] [facility] 10[facility]15 Active [facility] 1 VOLOYIAN [place] Outpatient [id number] [facility] 02/23 Active [facility] 3 VOLOY [place] Outpatient [id number] [facility] 02/23 Active [facility] 2 VOL [facility] Bedded [id number] [facility] 02/23 02/23 [place] Out[facility] 4 Volian /2016 [facility] Outpatient [id number] [facility] 03/04 03/05 [facility] 5 Voloyiannis /2016 [facility] Outpatient [id number] NINO [facility] 03/30 [facility] [place] Outpatient [id number] [facility] 04/21 [facility] VOLOY [facility] Surgery [id number] [facility] 04/21 04/21 [place] 7 Voloyiannis /2016 [facility] Outpatient [id number] ROMAN FOSTER 05/12 [facility] [place] Outpatient [id number] NINO NEPROSPER 05/17 Active [facility] [place] Outpatient [id number] NURSE VISIT 06/22 [facility] Day Surgery [id number] Nino [facility] 08/03 08/03 [facility] Outpatient [id number] NINO WILSON 08/26 [facility] [place] Outpatient [id number] JOVANA CUI 08/26 [facility] Ambulatory [id number] Jovana Karli 08/26 08/26 Urology [facility] Outpatient [id number] Nino [facility] 08/26 08/27 Urology [facility] Outpatient [id number] NINO [facility] 09/27 [facility] Outpatient [id number] Nino [facility] 09/27 09/28 [facility] Outpatient [id number] NINO [facility] 01/14 [facility] Ambulatory [id number] [facility] 01/14 01/14 Urology Pre-Reg [facility] Procedures Procedure Code Date Perfomer Comments Source Cystourethroscopy, 82947 Medical with removal of 7 Group foreign body, calculus, or ureteral stent from urethra or bladder (separate procedure); simple Hernia repair [id number] Medical 4 Group,[facility] Cannulation of [id number] Medical Portacath Group,[facility] Cardiac [id number] 1994 Medical catheterization<sup>1 Group, </sup> [facility] Cataract extraction [id number] Medical and insertion of Group, intraocular lens [facility] Cholecystectomy [id number] Medical Group,[facility] Colonoscopy [id number] Medical Group,[facility] Hysterectomy [id number] Medical Group,[facility] Knee [id number] 2011 Medical replacement<sup>2</red Group, p> [facility] Operation [id number] Medical Group,[facility] Partial resection of [id number] Medical colon Group,[facility] Assessment and Plan Assessment and Plan Date Source Extracted from:Title: History and Physical 08/03/2017 [facility] Author: Nino Wilson MD Date: 08/03/17 Renal calculi Extracted from:Title: Clinical Document 04/21/2017 [facility] Author: Galdino Ureña MD Date: 04/21/17 PREOPERATIVE DIAGNOSIS: Personal history of colon cancer. POSTOPERATIVE DIAGNOSIS: Personal history of colon cancer. PROCEDURE: Port-A-Cath removal. SURGEON: Dr. Ureña. ALFALFA DEHYDRATOR OPERATOR: None. ANESTHESIA: General. IV FLUIDS: 200 mL. [...] We placed a 2- 0 Vicryl in yhofsu-gp-odxtv fashion at the site of the Port-A-Cath [...] the patients satisfaction Extracted from:Title: preop 02/23/2017 [facility] Author: Roman Foster, MPH, PA-C Date: 02/23/17 [...] and Dr. Galdino Ureña, who provided a cpvq-st-iego visit and performed the physical exam, assessment and plan, and the note transcribed by Roman Mason total exam time, coordination of care, education >20 minutes [3] Extracted from:Title: Clinical Document 08/07/2015 [facility] Author: Van Luu MD Date: 08/06/15 Chart reveiwed. Patient seen and examined. WIll continue to follow. Extracted from:Title: Clinical Document 04/20/2014 [facility] Author: Dakota Michele MD Date: 04/19/14 Surgery Progress Note Attending: Dakota Michele MD Service: Plastic Surgery Service Code status: None Specified=FULL CODE Reason for Admission: 553.2 Working DRG: None Documented Isolation: None Documented Consulting Physicians: Dakota Michele MD Office: MSO: [id number] Service: General Surgery SUBJECTIVE: Doing OK. Still [...] Present Illness: Oncologist - Dr. Marlyn Norman; Snuff Packing Machine Operator - Dr. Angel Mike ............Sharifa Tatum [...] UMB HERNIA WITHOUT MENTION OBSTRUCTION/GANGRENE (ICD-553.1) ( SBF95-Z55.9) Assessment: Unchanged Will offer repair as she desires intervention Wll request cardiac clearance Onel with this latest PET to reaffirt cancer free state Discussed case with referring MD Orders: Office Visit, [facility] III - 20435 (CPT-21701) Problem # 2: CARCINOMA, ASCENDING COLON (ICD-153.6) (NGN93-U83.2) Assessment: Improved Post excision and allears to be disease free Orders: Office Visit, [facility] Level III - 01512 (CPT-17866) Patient Instructions: 1) Cardiac eval for pre [...] History Date Source Social History TypeResponse 05/24/2017 [facility] Substance Abuse Use: None. Alcohol Never Smoking [...] on: 08/03/17 Social History ElementQualifiersDate Reported 08/12/2015 [id number] Tobacco Use: .54324 . Are you a: never smoker Aug [...]
--- OUTSIDE RECORDS SUMMARY | 2019-04-14 08:26 | XMS REPORT | CCD ---
:1930 Author Organization [facility] Care Team Providers Name Role Phone Marlyn Ceballos Referring Provider Allergies, Adverse Reactions, Alerts Substance Reaction Status morphine Active Problem List Condition Effective Dates Status CAD - Coronary artery disease Active Cancer of colon 05/10/2011 Active Cirrhosis of liver Active Esophageal varices Active Hepatitis C Active Pneumonia Active
--- OUTSIDE RECORDS SUMMARY | 2019-04-14 08:26 | XMS REPORT | CCD ---
:1930 Author Organization [facility] Care Team Providers Name Role Phone Marlyn Ceballos Consulting Provider Allergies, Adverse Reactions, Alerts Substance Reaction Status morphine Active Problem List Condition Effective Dates Status CAD - Coronary artery disease Active Cancer of colon 05/10/2011 Active Cirrhosis of liver Active Esophageal varices Active Hepatitis C Active Pneumonia Active
--- OUTSIDE RECORDS SUMMARY | 2019-04-14 08:27 | XMS REPORT | Continuity of Care Document ---
:1930 Author Organization [facility] Care Team Providers Name Role Phone MD Michele Hoang Unavailable Unavailable Insurance Providers Payer name Policy type / Policy ID Covered constitution party ID Policy Mont[place] Coverage type [place]IC[place]: [employer] AARP HEALTHCARE OPTIONS (MEDICARE SUPPLEMENT AARP HEALTHCARE [...] Location Date Office Visit Dakota Michele MD [facility] SE General Apr 27, 2014 Surgery [...]
--- OUTSIDE RECORDS SUMMARY | 2019-04-14 08:27 | XMS REPORT ---
:1930 Author Organization [employer] Care Team Providers Name Role Phone Belkis Luuad Provider Role Unavailable Allergies, Adverse Reactions, Alerts Substance Reaction Event Type Adhesive Tape rash Drug Allergy Morphine Sulfate Info Not Available Drug Allergy Encounters Encounter Location Date Unknown [facility] Aug 12, 2015 Problems Problem Type Condition [...] End Status Dosage Date Date Propranolol HCl [facility] 95471-79 20 mg Orally Active 1 tablet 73-00 daily Gabapentin [facility] 79237-94 300 MG Orally Active 1 capsule 39-19 twice a day (bid) B-12 [facility] 12753-95 2500 MCG Active Unknown 92-72 Sublingual Ocuvite [facility] 57947-02 Orally daily Active 1 tablet 87-60 Lasix [facility] 66155-59 40 MG Orally Active 1 tablet 60-13 Once a day Ciprofloxacin [facility] 50035-94 500 MG/5ML (10%) Active 5 ml 93-01 Orally Twice a day [facility] 25 MG Orally Active 1 tablet 03-11 daily Caltrate 600+D [facility] 99962-78 600-400 MG-UNIT Active 1 tablet 86-00 Orally [...]
--- OUTSIDE RECORDS SUMMARY | 2019-04-14 08:27 | XMS REPORT | Continuity of Care Document ---
:1930 Author Organization [facility] Care Team Providers Name Role Phone MD Michele Hoang Unavailable Unavailable Insurance Providers Payer name Policy type / Policy ID Covered green party ID Policy Mont[place] Coverage type MEDICARE [place]: [employer] AARP HEALTHCARE OPTIONS (MEDICARE SUPPLEMENT AARP HEALTHCARE [...] Location Date Office Visit Dakota Michele MD [facility] SE General Mar 23, 2014 Surgery 350 [...]
--- OUTSIDE RECORDS SUMMARY | 2019-04-14 08:27 | XMS REPORT | Continuity of Care Document ---
:1930 Author Organization [facility] Care Team Providers Name Role Phone MD Niranjan, Galdino Unavailable Unavailable Insurance Providers Payer name Policy type / Policy ID Covered democrat ID Policy Mont[place] Coverage type MEDICARE [place]: [employer] AARP HEALTHCARE OPTIONS (MEDICARE SUPPLEMENT AARP HEALTHCARE [...] Location Date Lab Report Galdino Ureña MD [facility] Apr 12, 2014 Allergies, Adverse [...]
--- OUTSIDE RECORDS SUMMARY | 2019-04-14 08:27 | XMS REPORT | Continuity of Care Document ---
:1930 Author Organization [facility] Care Team Providers Name Role Phone MD Michele Hoang Unavailable Unavailable Insurance Providers Payer name Policy type / Policy ID Covered republican ID Policy Montoya Coverage type MEDIC[place]: [employer] AARP HEALTHCARE OPTIONS (MEDICARE SUPPLEMENT AARP HEALTHCARE [...] Location Date Lab Report Dakota Michele MD [facility] Mar 26, 2014 Allergies, Adverse Reactions, Alerts [...]
--- OUTSIDE RECORDS SUMMARY | 2019-04-14 08:28 | XMS REPORT ---
:1930 Author [facility] Address [address] [place] [address] [address] [place] [address] Care Team Providers Name Role Phone MARY [...] Value Reference Range Comments ALPHA-FETOPROTEIN (BEAKER) (test lnjz=1509) 2.9 ng/mL <10.0 HEPATIC FUNCTION [id number] 16:38:00 Test Item Value Reference Range Comments TOTAL PROTEIN (BEAKER) (test usgt=265) 9.0 gm/dL 6.0-8.3 ALBUMIN (BEAKER) (test dfmz=9081) 2.8 g/dL 3.5-5.0 BILIRUBIN TOTAL (BEAKER) (test gopo=221) 1.2 mg/dL 0.2-1.2 BILIRUBIN DIRECT (BEAKER) (test jrwy=668) 0.7 mg/dL 0.1-0.5 ALKALINE PHOSPHATASE (BEAKER) (test tcqw=713) 111 U/L 40-150 AST (SGOT) (BEAKER) (test jcwb=137) 31 U/L 5-34 ALT (SGPT) (BEAKER) (test igdi=558) 12 U/L 6-55 BASIC METABOLIC [id number] 16:38:00 Test Item Value Reference Range Comments SODIUM (BEAKER) (test 133 meq/L 136-145 hsvx=149) POTASSIUM (BEAKER) (test 4.0 meq/L 3.5-5.1 szgg=596) CHLORIDE (BEAKER) (test 100 meq/L 98-107 kbnc=617) CO2 (BEAKER) (test 27 meq/L 22-29 ticc=797) BLOOD UREA NITROGEN 20 mg/dL 7-21 (BEAKER) (test bhwv=054) CREATININE (BEAKER) (test 1.07 mg/dL 0.57-1.25 skpk=341) GLUCOSE RANDOM (BEAKER) 71 mg/dL 70-105 (test zzdw=532) CALCIUM (BEAKER) (test 9.4 mg/dL 8.4-10.2 bvka=015) EGFR (BEAKER) (test 49 mL/min/1.73 sq m ESTIMATED GFR IS NOT rxyi=5163) ACCURATE CREATININE CLEARANCE IN PREDICTING GLOMERULAR FILTRATION RATE. ESTIMATED GFR IS NOT APPLICABLE FOR DIALYSIS PATIENTS. [id number] 16:33:00 Test Item Value Reference Range Comments AMMONIA (BEAKER) (test drug=499) 40 mol/L 18-72 PROTHROMBIN [id number] 16:29:00 Test Item Value Reference Range Comments PROTIME (BEAKER) (test xkkx=041) 16.5 seconds 11.7-14.7 INR (BEAKER) (test uzik=475) 1.3 <=5.9 RECOMMENDED COUMADIN/WARFARIN INR THERAPY RANGESSTANDARD DOSE: 2.0 - 3.0 Includes: PROPHYLAXIS forvenous thrombosis, systemic embolization; TREATMENT for venous thrombosis and/or pulmonary embolus.HIGH RISK: Target INR is 2.5-3.5 for patients with mechanical heart valves.CBC W/PLT COUNT & AUTO [id number] 16:22:00 Test Item Value Reference Range Comments WHITE BLOOD CELL COUNT (BEAKER) (test fkmn=354) 5.0 K/ L 3.5-10.5 RED BLOOD CELL COUNT (BEAKER) (test bogp=512) 3.39 M/ L 3.93-5.22 HEMOGLOBIN (BEAKER) (test yctf=704) 10.7 GM/DL 11.2-15.7 HEMATOCRIT (BEAKER) (test ryqt=147) 33.1 % 34.1-44.9 MEAN CORPUSCULAR VOLUME (BEAKER) (test equk=073) 97.6 fL 79.4-94.8 MEAN CORPUSCULAR HEMOGLOBIN (BEAKER) (test 31.6 pg 25.6-32.2 hujy=793) MEAN CORPUSCULAR HEMOGLOBIN CONC (BEAKER) (test 32.3 GM/DL 32.2-35.5 lmth=290) RED CELL DISTRIBUTION WIDTH (BEAKER) (test 15.0 % 11.7-14.4 ofmv=259) PLATELET COUNT (BEAKER) (test ybeg=835) 98 K/CU MM 150-450 MEAN PLATELET VOLUME (BEAKER) (test zonf=971) 10.0 fL 9.4-12.3 NUCLEATED RED BLOOD CELLS (BEAKER) (test 0 /100 WBC 0-0 muhv=067) NEUTROPHILS RELATIVE PERCENT (BEAKER) (test 71 % wxbd=777) LYMPHOCYTES RELATIVE PERCENT (BEAKER) (test 14 % ehhl=752) MONOCYTES RELATIVE PERCENT (BEAKER) (test 12 % rduq=261) EOSINOPHILS RELATIVE PERCENT (BEAKER) (test 2 % htme=891) BASOPHILS RELATIVE PERCENT (BEAKER) (test 1 % ubwb=266) NEUTROPHILS ABSOLUTE COUNT (BEAKER) (test 3.51 K/ L 1.56-6.13 ovxe=079) LYMPHOCYTES ABSOLUTE COUNT (BEAKER) (test 0.69 K/ L 1.18-3.74 wjad=869) MONOCYTES ABSOLUTE COUNT (BEAKER) (test xsju=039) 0.62 K/ L 0.24-0.36 EOSINOPHILS ABSOLUTE COUNT (BEAKER) (test 0.10 K/ L 0.04-0.36 ntid=416) BASOPHILS ABSOLUTE COUNT (BEAKER) (test qjwp=645) 0.04 K/ L 0.01-0.08 IMMATURE GRANULOCYTES-RELATIVE PERCENT (BEAKER) 0 % 0-1 (test wygh=7816) ALPHA FETOPROTEIN (AFP), TUMOR [id number] 17:15:00 Test Item Value Reference Range Comments ALPHA-FETOPROTEIN (BEAKER) (test mglq=0771) 3.3 ng/mL <10.0 [id number] 16:34:00 Test Item Value Reference Range Comments MAGNESIUM (BEAKER) (test xstx=010) 1.8 mg/dL 1.6-2.6 BASIC METABOLIC [id number] 16:34:00 Test Item Value Reference Range Comments SODIUM (BEAKER) (test 133 meq/L 136-145 jldp=644) POTASSIUM (BEAKER) (test 3.9 meq/L 3.5-5.1 gpaj=790) CHLORIDE (BEAKER) (test 99 meq/L 98-107 mjpj=541) CO2 (BEAKER) (test 25 meq/L 22-29 hahs=276) BLOOD UREA NITROGEN 12 mg/dL 7-21 (BEAKER) (test womn=861) CREATININE (BEAKER) (test 0.97 mg/dL 0.57-1.25 vrqt=383) GLUCOSE RANDOM (BEAKER) 93 mg/dL 70-105 (test kjru=720) CALCIUM (BEAKER) (test 9.0 mg/dL 8.4-10.2 erch=326) EGFR (BEAKER) (test 54 mL/min/1.73 sq m ESTIMATED GFR IS NOT cwgq=6743) ACCURATE CREATININE CLEARANCE IN PREDICTING GLOMERULAR FILTRATION RATE. ESTIMATED GFR IS NOT APPLICABLE FOR DIALYSIS PATIENTS. Specimen slightly ictericHEPATIC FUNCTION [id number] 16:34:00 Test Item Value Reference Range Comments TOTAL PROTEIN (BEAKER) (test uvmt=630) 8.0 gm/dL 6.0-8.3 ALBUMIN (BEAKER) (test tgok=6791) 3.0 g/dL 3.5-5.0 BILIRUBIN TOTAL (BEAKER) (test xasv=191) 1.9 mg/dL 0.2-1.2 BILIRUBIN DIRECT (BEAKER) (test qkdg=814) 0.8 mg/dL 0.1-0.5 ALKALINE PHOSPHATASE (BEAKER) (test cdka=740) 122 U/L 40-150 AST (SGOT) (BEAKER) (test aqzc=357) 30 U/L 5-34 ALT (SGPT) (BEAKER) (test bbtp=051) 12 U/L 6-55 Specimen slightly ictericPROTHROMBIN [id number] 16:17:00 Test Item Value Reference Range Comments PROTIME (BEAKER) (test vvjy=887) 17.3 seconds 11.7-14.7 INR (BEAKER) (test jfai=342) 1.4 <=5.9 RECOMMENDED COUMADIN/WARFARIN INR THERAPY RANGESSTANDARD DOSE: 2.0 - 3.0 Includes: PROPHYLAXIS forvenous thrombosis, systemic embolization; TREATMENT for venous thrombosis and/or pulmonary embolus.HIGH RISK: Target INR is 2.5-3.5 for patients with mechanical heart valves.CBC W/PLT COUNT & AUTO [id number] 16:17:00 Test Item Value Reference Range Comments WHITE BLOOD CELL COUNT (BEAKER) (test fftl=009) 5.6 K/ L 3.5-10.5 RED BLOOD CELL COUNT (BEAKER) (test uumg=064) 3.83 M/ L 3.93-5.22 HEMOGLOBIN (BEAKER) (test sjjv=965) 12.0 GM/DL 11.2-15.7 HEMATOCRIT (BEAKER) (test mmfb=486) 36.8 % 34.1-44.9 MEAN CORPUSCULAR VOLUME (BEAKER) (test dzhh=865) 96.1 fL 79.4-94.8 MEAN CORPUSCULAR HEMOGLOBIN (BEAKER) (test 31.3 pg 25.6-32.2 jljv=565) MEAN CORPUSCULAR HEMOGLOBIN CONC (BEAKER) (test 32.6 GM/DL 32.2-35.5 ubgf=743) RED CELL DISTRIBUTION WIDTH (BEAKER) (test 15.9 % 11.7-14.4 mgmx=696) PLATELET COUNT (BEAKER) (test wxfp=176) 83 K/CU MM 150-450 MEAN PLATELET VOLUME (BEAKER) (test grce=691) 11.1 fL 9.4-12.3 NUCLEATED RED BLOOD CELLS (BEAKER) (test 0 /100 WBC 0-0 qgni=650) NEUTROPHILS RELATIVE PERCENT (BEAKER) (test 54 % fjtr=997) LYMPHOCYTES RELATIVE PERCENT (BEAKER) (test 36 % obpc=790) MONOCYTES RELATIVE PERCENT (BEAKER) (test 8 % oqjt=693) EOSINOPHILS RELATIVE PERCENT (BEAKER) (test 2 % jqdm=727) BASOPHILS RELATIVE PERCENT (BEAKER) (test 1 % exrl=416) NEUTROPHILS ABSOLUTE COUNT (BEAKER) (test 3.01 K/ L 1.56-6.13 drmh=072) LYMPHOCYTES ABSOLUTE COUNT (BEAKER) (test 1.98 K/ L 1.18-3.74 hkmd=388) MONOCYTES ABSOLUTE COUNT (BEAKER) (test gbrh=931) 0.44 K/ L 0.24-0.36 EOSINOPHILS ABSOLUTE COUNT (BEAKER) (test 0.10 K/ L 0.04-0.36 yenr=599) BASOPHILS ABSOLUTE COUNT (BEAKER) (test cdmp=532) 0.04 K/ L 0.01-0.08 IMMATURE GRANULOCYTES-RELATIVE PERCENT (BEAKER) 0 % 0-1 (test ridz=8801) ALPHA FETOPROTEIN (AFP), TUMOR [id number] 16:14:00 Test Item Value Reference Range Comments ALPHA-FETOPROTEIN (BEAKER) (test ctkc=7119) 5.7 ng/mL <10.0 Effective 07/17/2014: Reference Range ChangeNew: <10.0 Previous: 0.0- [id number] 15:57:00 Test Item Value Reference Range Comments MAGNESIUM (BEAKER) (test ztdp=876) 1.9 mg/dL 1.6-2.6 BASIC METABOLIC [id number] 15:57:00 Test Item Value Reference Range Comments SODIUM (BEAKER) (test 139 meq/L 136-145 zyex=408) POTASSIUM (BEAKER) (test 4.5 meq/L 3.5-5.1 rywi=019) CHLORIDE (BEAKER) (test 105 meq/L 98-107 urcx=171) CO2 (BEAKER) (test 25 meq/L 22-29 lggj=330) BLOOD UREA NITROGEN 15 mg/dL 7-21 (BEAKER) (test ihmt=599) CREATININE (BEAKER) (test 0.95 mg/dL 0.57-1.25 dcoi=831) GLUCOSE RANDOM (BEAKER) 86 mg/dL 70-105 (test imco=375) CALCIUM (BEAKER) (test 9.4 mg/dL 8.4-10.2 jdsa=062) EGFR (BEAKER) (test 56 mL/min/1.73 sq m ESTIMATED GFR IS NOT vsix=8041) ACCURATE CREATININE CLEARANCE IN PREDICTING GLOMERULAR FILTRATION RATE. ESTIMATED GFR IS NOT APPLICABLE FOR DIALYSIS PATIENTS. Specimen slightly ictericHEPATIC FUNCTION [id number] 15:57:00 Test Item Value Reference Range Comments TOTAL PROTEIN (BEAKER) (test ryzu=763) 7.6 gm/dL 6.0-8.3 ALBUMIN (BEAKER) (test jkph=7927) 3.2 g/dL 3.5-5.0 BILIRUBIN TOTAL (BEAKER) (test dafv=047) 1.8 mg/dL 0.2-1.2 BILIRUBIN DIRECT (BEAKER) (test aylv=921) 0.8 mg/dL 0.1-0.5 ALKALINE PHOSPHATASE (BEAKER) (test nlrz=977) 112 U/L 40-150 AST (SGOT) (BEAKER) (test wbua=834) 33 U/L 5-34 ALT (SGPT) (BEAKER) (test ghzd=976) 17 U/L 6-55 Specimen slightly ictericPROTHROMBIN [id number] 15:56:00 Test Item Value Reference Range Comments PROTIME (BEAKER) (test hamw=375) 16.7 seconds 11.7-14.7 INR (BEAKER) (test cjzw=788) 1.4 <=5.9 RECOMMENDED COUMADIN/WARFARIN INR THERAPY RANGESSTANDARD DOSE: 2.0 - 3.0 Includes: PROPHYLAXIS forvenous thrombosis, systemic embolization; TREATMENT for venous thrombosis and/or pulmonary embolus.HIGH RISK: Target INR is 2.5-3.5 for patients with mechanical heart valves.CBC W/PLT COUNT & AUTO [id number] 15:56:00 Test Item Value Reference Range Comments WHITE BLOOD CELL COUNT (BEAKER) (test hjza=075) 5.3 K/ L 4.0-10.0 RED BLOOD CELL COUNT (BEAKER) (test hgfx=120) 4.21 M/ L 4.00-5.00 HEMOGLOBIN (BEAKER) (test cqgf=695) 14.1 GM/DL 12.0-15.0 HEMATOCRIT (BEAKER) (test fqch=335) 41.7 % 36.0-45.0 MEAN CORPUSCULAR VOLUME (BEAKER) (test aqlr=639) 99.1 fL 82.0-99.0 MEAN CORPUSCULAR HEMOGLOBIN (BEAKER) (test 33.4 pg 27.0-33.0 ijad=299) MEAN CORPUSCULAR HEMOGLOBIN CONC (BEAKER) (test 33.7 GM/DL 32.0-36.0 nnlr=725) RED CELL DISTRIBUTION WIDTH (BEAKER) (test 13.2 % 10.3-14.2 bfso=552) PLATELET COUNT (BEAKER) (test lyhr=359) 77 K/CU MM 150-430 MEAN PLATELET VOLUME (BEAKER) (test xbul=591) 8.4 fL 6.5-10.5 NUCLEATED RED BLOOD CELLS (BEAKER) (test 0 /100 WBC 0-0 cjzo=125) NEUTROPHILS RELATIVE PERCENT (BEAKER) (test 54 % jubu=674) LYMPHOCYTES RELATIVE PERCENT (BEAKER) (test 33 % hrfk=219) MONOCYTES RELATIVE PERCENT (BEAKER) (test 10 % blnq=663) EOSINOPHILS RELATIVE PERCENT (BEAKER) (test 3 % mcjb=786) BASOPHILS RELATIVE PERCENT (BEAKER) (test 0 % xirv=314) NEUTROPHILS ABSOLUTE COUNT (BEAKER) (test 2.86 K/ L 1.80-8.00 bwei=851) LYMPHOCYTES ABSOLUTE COUNT (BEAKER) (test 1.77 K/ L 1.48-4.50 fdhg=821) MONOCYTES ABSOLUTE COUNT (BEAKER) (test qyos=770) 0.56 K/ L 0.00-1.30 EOSINOPHILS ABSOLUTE COUNT (BEAKER) (test 0.13 K/ L 0.00-0.50 nvjj=380) BASOPHILS ABSOLUTE COUNT (BEAKER) (test zlel=225) 0.02 K/ L 0.00-0.20 [id number] 11:05:00 Test Item Value Reference Range Comments POC-CREATININE (BEAKER) 0.9 mg/dL 0.6-1.3 TESTED AT [facility] [address] [facility] (test alhb=[id number]) [facility] [address] POC-EGFR (BEAKER) (test 59 mL/min/1.73M2 aryk=2485)
[2019-04-14 09:07] LABS: Absolute Lymphocytes (CBC) 0.5 K/uL (0.7-4.9); Lymphocytes % 12.5 % (15.3-44.8); MPV 8.5 fL (7.6-11.3); RBC Red Blood Cell Count 3.24 M/uL (3.86-4.86)
[2019-04-14 09:11] LABS: Protime INR 1.22
[2019-04-14 09:22] LABS: Albumin 2.5 g/dL (3.4-5.0); Bilirubin Total 1.1 mg/dL (0.2-1.0); Potassium 4.3 mmol/L (3.5-5.1); Protein, Total 7.3 g/dL (6.4-8.2)
--- NOTE | 2019-04-14 12:36 | RAD REPORT ---
EXAM DESCRIPTION: US - Paracentesis Proc Guidance - 04/14/2019 9:58 am CLINICAL HISTORY: Liver disease with ascites FINDINGS: The risks, benefits and alternatives to the procedure were explained to the patient and in formed consent obtained. The skin and subcutaneous tissues were anesthetized with Lidocaine. Under sonographic guidance an 8 F rench catheter was placed into the right lower quadrant. 4 liters of yellow fluid was removed and sen t to the lab. The patient experienced no immediate complication. IMPRESSION: Paracentesis
[2019-04-14 13:37] VITALS: O2SAT 100
[2019-04-14 13:40] VITALS: BMI 22.4
[2019-04-14 13:50] VITALS: BP 97/45; TEMP 98.4
== END ==
LOC: DS 08:17
PROVIDERS: ATTEND Internal Medicine Gastroenterology
DX: R18.8 Other ascites (principal); K74.60 Unspecified cirrhosis of liver; K72.90 Hepatic failure, unspecified without coma; K76.0 Fatty (change of) liver, not elsewhere classified; R60.0 Localized edema; L25.9 Unspecified contact dermatitis, unspecified cause; K30 Functional dyspepsia
CPT/HCPCS: 85025; 36415; 85610; 85730; 80053; 96365; 49083; P9047

== ENCOUNTER → 2019-04-21 | Day surgery (SDC) | payer OTHER ==
--- OUTSIDE RECORDS SUMMARY | 2019-04-21 08:04 | XMS REPORT | Clinical Summary ---
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); Resource, [facility] Screening for cancer; Hepatology Clinic E Encephalopathy; Abnormal breath sounds 07/11/2018 Telephone HepatXiao Cesar RN other 05/31/2018 Telephone Hepatology Xiao Mckeon RN other 05/13/2018 Abstract HepatYvonne Braun MA after 04/20/2018 Family History Medical History Relation Name Comments [...] Taken Blood Pressure 94/60 08/10/2018 2:08 PM MUSIC SUPERVISOR Pulse 92 08/10/2018 2:08 PM MUSIC SUPERVISOR Temperature 36.3 C (97.4 F) 08/10/2018 2:08 PM MUSIC SUPERVISOR Respiratory Rate 16 08/10/2018 2:08 PM MUSIC SUPERVISOR Oxygen Saturation 98% 08/10/2018 2:08 PM MUSIC SUPERVISOR Inhaled Oxygen Concentration - - Weight 58.2 kg (128 lb 6.4 oz) 08/10/2018 2:08 PM MUSIC SUPERVISOR Height 165.1 cm (5' 5") 08/10/2018 2:08 PM MUSIC SUPERVISOR Body Mass Index 21.37 08/10/2018 2:08 PM MUSIC SUPERVISOR Plan of Treatment Date Type Specialty Care Team Description 05/02/2019 Office Visit Hepatology Lynn Murguia MD [address] [id number] Resource, [facility] Hepatology Clinic E Procedures Procedure Name Priority Date/Time Associated Comments Diagnosis CBC W/PLT COUNT & Routine 08/10/2018 3:45 Hepatic cirrhosis Results for this AUTO DIFFERENTIAL PM MUSIC SUPERVISOR due to chronic procedure are in hepatitis C the results infection (HCC) section. Screening for cancer Encephalopathy AMMONIA Routine 08/10/2018 3:45 Hepatic cirrhosis Results for this PM MUSIC SUPERVISOR due to chronic procedure are in hepatitis C the results infection (HCC) section. Screening for cancer Encephalopathy ALPHA FETOPROTEIN Routine 08/10/2018 3:45 Hepatic cirrhosis Results for this (AFP), TUMOR MARKER PM MUSIC SUPERVISOR due to chronic procedure are in hepatitis C the results infection (HCC) section. Screening for cancer Encephalopathy PROTHROMBIN TIME/INR Routine 08/10/2018 3:45 Hepatic cirrhosis Results for this PM MUSIC SUPERVISOR due to chronic procedure are in hepatitis C the results infection (HCC) section. Screening for cancer Encephalopathy CBC W/PLT COUNT & Routine 08/10/2018 3:45 Hepatic cirrhosis Results for this AUTO DIFFERENTIAL PM MUSIC SUPERVISOR due to chronic procedure are in hepatitis C the results infection (HCC) section. Screening for cancer Encephalopathy HEPATIC FUNCTION Routine 08/10/2018 3:45 Hepatic cirrhosis Results for this PANEL PM MUSIC SUPERVISOR due to chronic procedure are in hepatitis C the results infection (HCC) section. Screening for cancer Encephalopathy BASIC METABOLIC PANEL Routine 08/10/2018 3:45 Hepatic cirrhosis Results for this (7) PM MUSIC SUPERVISOR due to chronic procedure are in hepatitis C the results infection (HCC) section. Screening for cancer Encephalopathy after 04/20/2018 Results CBC with platelet count + automated diff (08/10/2018 3:45 PM MUSIC SUPERVISOR) WBC 5.0 3.5 - 10.5 K/L [facility] RBC 3.39 (L) 3.93 - 5.22 M/L [facility] Hemoglobin 10.7 (L) 11.2 - 15.7 GM/DL [facility] Hematocrit 33.1 (L) 34.1 - 44.9 % [facility] MCV 97.6 (H) 79.4 - 94.8 fL [facility] MCH 31.6 25.6 - 32.2 pg [facility] MCHC 32.3 32.2 - 35.5 GM/DL [facility] RDW 15.0 (H) 11.7 - 14.4 % [facility] Platelets 98 (L) 150 - 450 K/CU MM [facility] MPV 10.0 9.4 - 12.3 fL [facility] nRBC 0 0 - 0 /100 WBC [facility] % Neutros 71 % [facility] % Lymphs 14 % [facility] % Monos 12 % [facility] % Eos 2 % [facility] % Baso 1 % [facility] # Neutros 3.51 1.56 - 6.13 K/L [facility] # Lymphs 0.69 (L) 1.18 - 3.74 K/L [facility] # Monos 0.62 (H) 0.24 - 0.36 K/L [facility] # Eos 0.10 0.04 - 0.36 K/L [facility] # Baso 0.04 0.01 - 0.08 K/L [facility] Immature Granulocytes-Relative 0 0 - 1 % [facility] Specimen Blood Performing Organization Address [facility] Phone Number [address] [address] CENTER Alpha fetoprotein (AFP), tumor marker (08/10/2018 3:45 PM MUSIC SUPERVISOR) Alpha-Fetoprotein 2.9 <10.0 ng/mL [facility] Specimen Blood Performing Organization Address [facility] Cent[facility]oks Phone Number [address] [address] [phone] CENTER Pro-time/INR (08/10/2018 3:45 PM MUSIC SUPERVISOR) Protime 16.5 (H) 11.7 - 14.7 seconds [facility] INR 1.3 <=5.9 [facility] Specimen Blood Narrative Performed At RECOMMENDED COUMADIN/WARFARIN INR THERAPY [facility] RANGES STANDARD DOSE: 2.0 - 3.0 Includes: PROPHYLAXIS for venous thrombosis, systemic embolization; TREATMENT for venous thrombosis and/or pulmonary embolus. HIGH RISK: Target INR is 2.5-3.5 for patients with mechanical heart valves. Performing Organization Address City/[facility] Cent[facility]ode Phone Number [address] [address] CENTER Ammonia (08/10/2018 3:45 PM MUSIC SUPERVISOR) Ammonia 40 18 - 72 mol/L [facility] Specimen Blood Performing Organization Address [facility]/Zipcode Phone Number [facility] [address] [place], [place] [phone] [place] Hepatic function panel (08/10/2018 3:45 PM MUSIC SUPERVISOR) Protein, Total 9.0 (H) 6.0 - 8.3 gm/dL [facility] Albumin 2.8 (L) 3.5 - 5.0 g/dL [facility] Total Bilirubin 1.2 0.2 - 1.2 mg/dL [facility] Bilirubin, Direct 0.7 (H) 0.1 - 0.5 mg/dL [facility] Alkaline Phosphatase 111 40 - 150 U/L [facility] AST 31 5 - 34 U/L [facility] ALT 12 6 - 55 U/L [facility] Specimen Blood Performing Organization Address City/State/Zipcode Phone Number [facility] [address], [place] [phone] [place] Basic Metabolic Panel (08/10/2018 3:45 PM MUSIC SUPERVISOR) Sodium 133 (L) 136 - 145 meq/L [facility] Potassium 4.0 3.5 - 5.1 meq/L [facility] Chloride 100 98 - 107 meq/L [facility] CO2 27 22 - 29 meq/L [facility] BUN 20 7 - 21 mg/dL [facility] Creatinine 1.07 0.57 - 1.25 mg/dL [facility] Glucose 71 70 - 105 mg/dL [facility] Calcium 9.4 8.4 - 10.2 mg/dL [facility] EGFR 49Comment: ESTIMATED GFR IS mL/min/1.73 sq m [facility] NOT ACCURATE [facility] CLEARANCE IN PREDICTING GLOMERULAR FILTRATION RATE. ESTIMATED GFR IS NOT APPLICABLE FOR DIALYSIS PATIENTS. Specimen Blood Performing Organization Address City/State/Zipcode Phone Number [facility] [address] [place] [address] [phone] CENTER after 04/20/2018 Insurance Payer Benefit Plan / Group Subscriber ID Type Phone Address MEDICARE MEDICARE A B xxxxxxxxxxx Medicare MCR GENERIC MEDICARE xxxxxxxxx [employer] SUPPLEMENT/INDIVIDUAL SUPPLEMENT
--- OUTSIDE RECORDS SUMMARY | 2019-04-21 08:09 | XMS REPORT | Continuity of Care Document ---
:1930 Author Organization [email or web address] Care Team Providers Name Role Phone [email or web address] Unavailable Unavailable Problems Problem Status Onset Classification [...] Active Problem 04/24/2017 [facility]. Umbilical hernia5 Active Problem 01/17/2018 [facility] [place] [facility] UMB HERNIA WITHOUT Active Condition 04/27/2014 Medical MENTION 014 Group OBSTRUCTION/GANGRE NE LARGE INTESTINE Active Condition 04/27/2014 Medical CANCER 012 Group SCREENING FOR Active Condition 04/27/2014 Medical COLON CANCER 012 Group Carcinoma of Active Problem 01/17/2018 Data migrated Medical [facility] [place] 01/[facility]. CARCINOMA, Active Condition 04/27/2014 Medical ASCENDING COLON 011 Group Cancer of colon Active Problem 01/17/2018 Medical 011 Group,[facility] CH - Chronic Active Problem 04/24/2017 hepatitis [place] DVT (Confirmed) Resolved Problem 04/24/2017 [facility] Bronchitis Res[facility] - Coronary Active Problem 01/17/2018 Medical [...] Unspecified Active Diagnosis 08/26/2015 2.16.840.1. infectious disease [id number] Bacterial Active Diagnosis 08/26/2015 2.16.840.1. infection [id number] Other Active Diagnosis 08/26/2015 2.16.840.1. encephalopathy [id number] Esophageal varices Active Diagnosis 08/26/2015 2.16.840.1. [id number] Hepatic cirrhosis Active Diagnosis 08/26/2015 2.16.840.1. [id number] UTI Active Problem 08/26/2015 2.16.840.1. [id number] MALIGNANT MIGEL Active COLON NOS [place] 153.9 Active [place] HEPATOPULMONARY Active SYNDROME [place] HX OF COLONIC Active MALIGNANCY [place] URIN TRACT Active INFECTION NOS [place] INCISIONAL HERNIA Active [place] MALIGNANT NEOPLASM Active MH OF COLON, [place] UNSPECIFIED PERSONAL HISTORY Active MH OF MALIGNANT [place] NEOPLASM O CALCULUS OF KIDNEY Active [facility] Medications Medication Details Route Status Patient Ordering Order Source Instructions Provider Date Acetaminophen 2 tab, PO, Active 300 MG / Q6H, PRN [address] [facility] Codeine Pain, X 7 Phosphate 30 MG day, # 56 Oral Tablet tab, 0 [Tylenol with Refill(s) Codeine #3] esmolol (ANES) Route: IV, Inactive Drug form: [address] [facility] INJ, ONCE, Stop date: 08/03/17 13:22:00 CERAMIC PLATER ondansetron Route: IV, Inactive (ANES) Drug form: [address] [facility] INJ, ONCE, Stop date: 08/03/17 13:07:00 CERAMIC PLATER propofol (ANES) Route: IV, Inactive Drug form: [address] [facility] INJ, ONCE, Stop date: 08/03/17 13:07:00 CERAMIC PLATER lidocaine Route: IV, Inactive (ANES) Drug form: [address] [facility] INJ, ONCE, Stop date: 08/03/17 13:07:00 CERAMIC PLATER ciprofloxacin Route: IV, Inactive (ANES) Drug form: [address] [facility] INJ, ONCE, Stop date: 08/03/17 13:07:00 CERAMIC PLATER dexamethasone Route: IV, Inactive (ANES) Drug form: [address] [facility] INJ, ONCE, Stop date: 08/03/17 13:07:00 CERAMIC PLATER fentaNYL (ANES) Route: IV, Inactive Drug form: [address] [facility] INJ, ONCE, Stop date: 08/03/17 13:02:00 CERAMIC PLATER Calcium 1,000 mL, Inactive Chloride 0.0014 Rate: 25 [address] [facility] MEQ/ML / ml/hr, Infuse Potassium over: 40 hr, Chloride 0.004 Route: IV, MEQ/ML / Sodium Dosing Weight Chloride 0.103 74.091 kg, MEQ/ML / Sodium Total Volume: Lactate 0.028 1,000, Start MEQ/ML date: Injectable 08/03/17 Solution 12:12:00 CERAMIC PLATER, Duration: 30 day, Stop date: 09/02/17 12:11:00 CERAMIC PLATER, 1.86, m2 vancomycin Route: IV, Inactive (ANES) 1000 mg Drug form: [address] [facility] INJ, Start date: 08/03/17 12:10:00 CERAMIC PLATER, Stop date: 08/03/17 13:10:00 CERAMIC PLATER Lactated Route: IV, Inactive Ringers Total Volume: [address] [facility] Injection IV 1,000, Start (ANES) 1000 mL date: 08/03/17 12:10:00 CERAMIC PLATER, Stop date: 08/03/17 13:10:00 CERAMIC PLATER Ceftriaxone 1 gm, Route: No Longer IVPB, Q12H, Active [address] [facility] Dosing Weight 74.091, kg, Start date: 08/02/17 21:00:00 CERAMIC PLATER, Duration: 24 hr, Stop date: 08/03/17 9:00:00 CERAMIC PLATER, ABX Indication: Urinary Tract Infection phenylephrine Route: IV, Inactive (ANES) Drug form: [address] [facility] INJ, ONCE, Stop date: 04/21/17 10:51:00 CDT ondansetron Route: IV, Inactive (ANES) Drug form: [address] [facility] INJ, ONCE, Stop date: 04/21/17 10:41:00 CDT dexamethasone Route: IV, Inactive (ANES) Drug form: [address] [facility] INJ, ONCE, Stop date: 04/21/17 10:41:00 CDT ceFAZolin Route: IV, Inactive (ANES) Drug form: [address] [facility] INJ, ONCE, Stop date: 04/21/17 10:41:00 CDT lidocaine Route: IV, Inactive (ANES) Drug form: [address] [facility] INJ, ONCE, Stop date: 04/21/17 10:41:00 CDT propofol (ANES) Route: IV, Inactive Drug form: [address] [facility] INJ, ONCE, Stop date: 04/21/17 10:41:00 CDT fentaNYL (ANES) Route: IV, Inactive Drug form: [address] [facility] INJ, ONCE, Stop date: 04/21/17 10:41:00 CDT acetaminophen Route: IV, Inactive (ANES) (ANES) Drug form: [address] [facility] INJ, Start date: 04/21/17 10:35:00 CDT, Stop date: 04/21/17 11:35:00 CDT sodium chloride Route: IV, Inactive 08/23/ MH 0.9% 500 ml INJ Total Volume: [address] [facility] (ANES) 500, Start date: 04/21/17 10:08:00 CDT, Stop date: 04/21/17 11:08:00 CDT Calcium 1,000 mL, Inactive Chloride 0.0014 Rate: 25 [address] [facility] MEQ/ML / ml/hr, Infuse Potassium over: 40 hr, Chloride 0.004 Route: IV, MEQ/ML / Sodium Dosing Weight Chloride 0.103 74.545 kg, MEQ/ML / Sodium Total Volume: Lactate 0.028 1,000, Start MEQ/ML date: Injectable 04/21/17 Solution 9:53:00 CDT, Duration: 30 day, Stop date: 05/21/17 9:52:00 CDT Ocuvite 1 tab, PO, Active Daily, 0 [address] [facility] Refill(s) Furosemide 40 40 mg=1 tab, Active MG Oral Tablet PO, Daily, 0 [address] [facility] Refill(s) Vitamin D3 2000 2,000 Active intl units oral IntlUnit=1 [address] [facility] tablet tab, PO, Daily, 0 Refill(s) Albuterol 0.833 3 mL, Route: Inactive MG/ML / NEB, Drug [address] [facility] Ipratropium Form: SOLN, [place] 0.167 Dosing Weight MG/ML Inhalant 76.364, kg, Solution ONCE, STAT, Start date: 02/23/17 9:22:00 CDT, Stop date: 02/23/17 9:22:00 CDTNotes: (Same as: Mirza) Sodium Chloride 500 mL, Rate: Inactive 0.154 MEQ/ML 25 ml/hr, [address] [facility] Injectable Infuse over: Solution 20 hr, Route: IV, Dosing Weight 76.364 kg, Total Volume: 500, Start date: 02/23/17 9:22:00 CDT, Duration: 1 day, Stop date: 02/24/17 9:21:00 CDT Lasix 20 mg, 1 tab, No Longer Route: PO, Active [address] [facility] Drug form: TAB, Daily, Dosing Weight 73.295, kg, Start date: 08/08/15 9:00:00, Duration: 30 day, Stop date: 09/06/15 9:00:00Notes: (Same as: Lasix) May cause GI upset. Give with food or milk. Spironolactone 12.5 mg, 0.5 No Longer tab, Route: Active [address] [facility] PO, Drug form: TAB, Daily, [...] 20 mL, Route: Inactive IVP, Start [address] [facility] date: 08/07/15 12:19:00, Duration: 30 day, Stop date: 09/06/15 12:18:00, PRN Line FlushNotes: preservative free. sodium chloride 10 mL, Route: Inactive IVP, Start [address] [facility] date: 08/07/15 12:18:00, Duration: 30 [...] Inactive 100 MG Oral cap, Route: [address] [facility] Capsule PO, Drug [Colace] form: CAP, Daily, Dosing Weight 73.295, kg, PRN Constipation, Start date: 08/07/15 11:09:00, Duration: 30 day, Stop date: 09/06/15 11:08:00Notes : (Same as: Colace) (Do Not Crush) Ibuprofen 400 mg, 1 Inactive tab, Route: [address] [facility] PO, Drug form: TAB, ONCE, Dosing Weight 73.295, kg, PRN Headache 1-5, Start date: 08/06/15 21:10:00, Stop date: 08/06/15 21:10:00Notes : (Same as: Motrin) "Do Not Crush" Give with food. Lasix PO, Daily, 0 Active Refill(s) [address] [facility] Rocephin 1 gm, Route: No Longer IVPB, Active [address] [facility] [id number], Dosing Weight 73.295, kg, Start date: 08/06/15 9:00:00, Duration: 30 day, Stop date: 09/04/15 9:00:00Notes: (Same As: Rocephin). Use with 100 mL NS and infuse over 30 min MEDICATION WASTE Product Size: 1000 mg Product Wasted: ___ mg Lactulose 10 gm, 15 ml, Inactive Route: PO, [address] [facility] Drug Form: SYRP, Dosing Weight 73.295, kg, ONCE, Start date: 08/06/15 3:49:00, Stop date: 08/06/15 3:49:00Notes: (Same as:Chronulac) Ondansetron 4 mg, 2 mL, No Longer Route: IVP, Active [address] [facility] Drug form: INJ, Q6H, Dosing Weight 73.636, kg, PRN Nausea & Vomiting, Start date: 08/06/15 3:29:00, Duration: 30 day, Stop date: 09/05/15 3:28:00Notes: (Same as: Zofran) MEDICATION WASTE Product Size: 4 mg Product Wasted: ___ mg Acetaminophen 325 mg, 1 No Longer tab, Route: Active [address] [facility] PO, Drug form: TAB, Q4H, Dosing Weight 73.636, kg, PRN Pain Score 4-6, Start date: 08/06/15 3:29:00, Duration: 30 day, Stop date: 09/05/15 3:28:00Notes: Do not exceed 4 gm/day. (Same as: Tylenol) Morphine 2 mg, Route: No Longer IVP, Q4H, Active [address] [facility] Dosing Weight 73.636, kg, PRN Pain Score 7-10, Start date: 08/06/15 3:29:00, Duration: 30 day, Stop date: 09/05/15 3:28:00 Aspirin 325 mg, 1 No Longer tab, Route: Active [address] [facility] PO, Drug form: ECTAB, Q24H, Dosing Weight 73.636, kg, Start date: 08/06/15 3:00:00, Duration: 30 day, Stop date: 09/04/15 3:00:00Notes: (Do Not Crush) Do not crush or chew. Saline Flush 10 mL, Route: No Longer 0.9% IVP, Drug Active [address] [facility] Form: INJ, Dosing Weight 75.455, kg, PRN, PRN Line Flush, Start date: 08/05/15 19:05:00, Duration: 30 day, Stop date: 09/04/15 19:04:00Notes : (Same as: BD Posiflush) Docusate Sodium 100 mg=1 cap, Active 100 MG Oral PO, Daily, as [address] [facility] Capsule needed for [Colace] constipation, # 20 cap, 0 Refill(s) gabapentin 300 300 mg=1 cap, Active MG Oral Capsule PO, BID, # 90 2013 cap, 0 Refill(s) tramadol 50 mg=1 tab, Active hydrochloride PO, Q6H, 2013 50 MG Oral Pain, # 40 Tablet tab, 0 Refill(s) Ibuprofen 400 400 mg, 1 No Longer MG Oral Tablet tab, Route: Active [address] [facility] PO, Drug form: TAB, Q6H, Dosing Weight 64.545, kg, PRN as needed for pain, Start date: 04/19/14 14:09:00, Duration: 30 day, Stop date: 05/19/14 14:08:00Notes : (Same as: Motrin) "Do Not Crush" Give with food. Ibuprofen 600 mg, Inactive Route: PO, [address] [facility] Q6H, Dosing Weight 64.545, kg, PRN Severe Pain, Start date: 04/19/14 14:09:00, Duration: 30 day, Stop date: 05/19/14 14:08:00 hydromorphone 0.5 mg, 0.5 No Longer mL, Route: Active [address] [facility] IV, Drug form: INJ, Q2H, PRN Pain, Start date: 04/18/14 17:55:00, Duration: 30 day, Stop date: 05/18/14 17:54:00 Ibuprofen 600 mg, Inactive Route: PO, [address] [facility] Q6H, Dosing Weight 64.545, kg, PRN as needed for pain, Start date: 04/18/14 17:02:00, Duration: 30 day, Stop date: 05/18/14 17:01:00 Docusate Sodium 100 mg, 1 No Longer 100 MG Oral cap, Route: Active [address] [facility] Capsule PO, Drug form: CAP, BID, Dosing Weight 64.545, kg, Start date: 04/18/14 17:00:00, Duration: 30 day, Stop date: 05/18/14 9:00:00Notes: (Same as: Colace) (Do Not Crush) Ofirmev 1,000 mg, 100 Inactive mL, Route: [address] [facility] IV, Drug form: INJ, Q6H, Dosing Weight 65.909, kg, for > or=50 kg, Start date: 04/18/14 12:00:00, Duration: 1 day, Stop date: 04/19/14 6:00:00Notes: Infuse over 15 minutes Do not exceed 4gm/day of acetaminophen Saline Flush 5 ml, Route: No Longer 0.9% IVP, Drug Active [address] [facility] Form: INJ, Dosing Weight 64.545, kg, PRN, PRN Line Flush, Start date: 04/18/14 10:16:00, Duration: 30 day, Stop date: 05/18/14 10:15:00Notes : Same as: BD Posiflush Sterile Sodium Chloride 1,000 mL, No Longer 0.154 MEQ/ML Rate: 125 Active [address] [facility] Injectable ml/hr, Infuse Solution over: 8 hr, Route: IV, Dosing Weight 64.545 kg, Total Volume: 1,000, Start date: 04/18/14 10:16:00, Duration: 30 day, Stop date: 05/18/14 10:15:00 Ondansetron 4 mg, 2 mL, No Longer Route: IVP, Active [address] [facility] Drug form: INJ, Q6H, Dosing Weight 64.545, kg, PRN Nausea & Vomiting, Start date: 04/18/14 10:16:00, Duration: 30 day, Stop date: 05/18/14 10:15:00Notes : (Same as: Zofran) Acetaminophen 1 tab, Route: Inactive 325 MG / PO, Drug [address] [facility] Hydrocodone Form: TAB, Bitartrate 5 MG Dosing Weight Oral Tablet 65.909, kg, Q4H, PRN Pain Score 1-3, Start date: 04/18/14 10:16:00, Duration: 30 day, Stop date: 05/18/14 10:15:00Notes : (Same as: [place] 325/5) Do not exceed 4gm/day of acetaminophen . Cefoxitin 2 gm, Route: No Longer IVPB, ONCALL, Active [address] [facility] Dosing Weight 64.545, kg, Start date: 04/13/14 13:00:00, Duration: 30 day, Stop date: 05/13/14 12:59:00Notes : (Same As: Mefoxin) Naloxone 0.1 mg, Inactive Route: IVP, 2013 Q2MIN, Dosing Weight 65.909, kg, PRN Narcotic Reversal, Start date: 03/13/14 11:16:00, Duration: 4 doses or times, Stop date: Limited # of times Flumazenil 0.2 mg, Inactive Route: IVP, [address] [facility] PRN, Dosing Weight 65.909, kg, PRN Other -See Comment, Start date: 03/13/14 11:16:00, Duration: 1 doses or times, Stop date: Limited # of times Sodium Chloride 1,000 mL, Inactive 0.154 MEQ/ML Rate: 25 [address] [facility] Injectable ml/hr, Infuse Solution over: 40 hr, Route: IV, Dosing Weight 65.909 kg, Total Volume: 1,000, Start date: 03/13/14 9:59:00, Duration: 30 day, Stop date: 04/12/14 9:58:00 Coconut oil Coconut oil, Active Refill(s) 0 2013 ibandronic acid 150 mg=1 tab, Active 150 MG Oral PO, qMonth, # [address] [facility] Tablet [Boniva] 1 tab, 0 [...] B-12 2500 MCG one by mouth Active 02/02[facility] Medical TABS once daily 2013 Group MOTRIN IB 200 prn Active 02/02[facility] Medical MG TABS 2013 Group COCONUT OIL OIL two teaspoons Active Medical daily 2013 Group ALDACTONE 25 MG one by mouth Active 02/02[facility] Medical TABS once daily 2013 Group GABAPENTIN 300 one by mouth Active 02/02[facility] Medical MG CAPS twice daily 2013 Group Propranolol HCl 1 tablet Orally Active 20 mg Orally Jus 2.16.840.1 daily .297446.4. 391 68 Gabapentin 1 capsule Orally Active 300 MG Orally Jus 2.16.840.1 twice a day .458220.4. (bid) 391 68 B-12 Unknown Sublingual Active 2500 MCG Jus 2.16.840.1 Sublingual .297530.4. 391 68 Ocuvite 1 tablet Orally Active Orally daily Jus 2.16.840.1 .846876.4. 391 68 Lasix 1 tablet Orally Active 40 MG Orally Jus 2.16.840.1 Once a day .202483.4. 68 Ciprofloxacin 5 ml Orally Active 500 MG/5ML Jus 2.16.840.1 (10%) Orally .371165.4. Twice a day Spironolactone 1 tablet Orally Active 25 MG Orally Jus 2.16.840.1 daily .112541.4. Caltrate 600+D 1 tablet with Orally Active 600-400 Jus 2.16.840.1 food MG-UNIT .014291.4. Orally Once a day Allergies, Adverse Reactions, Alerts Substance Category Reaction Severity Reaction Status Date Comments Source type Reported MORPHINE Drug MORPHINE allergy 2 Medical Group morphine<s Assertion Drug Active Data up>1</sup> allergy 2 migrated Medical from [facility] on 12/27/14. Originally documented as MORPHINE. Hallucinatio ns Adhesive Adverse rash Adverse Active 2.16.840. Tape Reaction Reaction 5 1.318388. 4.391.. 60116 Morphine Adverse Info Not Adverse Active 2.16.840. Sulfate Reaction Available Reaction 5 1.626063. 4.391.. 02312 morphine Assertion Drug Active allergy [place] Tape [...] 36.1 20.0 - 12 MH 40.0 /[address] [facility] HEMATOLOGY Eosinophils 1.2 0.0 - 4.0 08/[address] [facility] HEMATOLOGY Monocytes 5.4 2.0 - 12.0 08/03 [facility] HEMATOLOGY Basophils 0.6 0.0 - 1.0 08/[address] [facility] HEMATOLOGY Segs 56.7 45.0 - 12 MH 75.0 /[address] [facility] HEMATOLOGY Monocytes # 0.2 0.0 - 0.8 08/[address] [facility] HEMATOLOGY Lymphocytes 1.0 1.0 - 5.5 08/03 MH # /2017 [facility] HEMATOLOGY Segs-Bands # 1.6 1.5 - 8.1 08/[address] [facility] HEMATOLOGY MPV 9.2 7.4 - 10.4 08/[address] [facility] HEMATOLOGY RDW 16.5 11.5 - 12 MH 14.[address] [facility] HEMATOLOGY Platelet 62 133 - 450 [address] [facility] HEMATOLOGY Hct 39.3 36.0 - 12 MH 48.0 /[address] [facility] HEMATOLOGY Hgb 13.2 12.0 - 12 MH 16.0 /[address] [facility] HEMATOLOGY RBC 4.14 4.20 - 12 MH 5.40 /[address] [facility] HEMATOLOGY MCH 31.9 27.0 - 12/ MH 31.0 /[address] [facility] HEMATOLOGY MCV 95.1 80.0 - 12 MH 98.0 /[address] [facility] HEMATOLOGY MCHC 33.6 32.0 - 12 MH 36.0 /[address] [facility] HEMATOLOGY WBC 2.8 3.7 - 10.4 08/03 [place] CHEM PANEL eGFR 59 08/02 [facility] Comment: The [facility] eGFR is calculated using the [...] Direct 0.3 0.0 - 0.3 12/ /[address] [facility] CHEM PANEL Bili 1.5 0.0 - 1.0 12/ MH Indirect /2016 [facility] CHEM PANEL A/G Ratio 0.5 0.7 - 1.6 08/02 /[address] [facility] CHEM PANEL Globulin 4.6 2.7 - 4.2 12/ /[address] [facility] HEMATOLOGY RBC 3.92 4.20 - 12 MH 5.40 /[address] [facility] HEMATOLOGY WBC 5.1 3.7 - 10.4 12 /[address] [facility] HEMATOLOGY Hgb 12.3 12.0 - 12 MH 16.0 /[address] [facility] HEMATOLOGY RDW 15.9 11.5 - 12 MH 14.5 /[address] [facility] HEMATOLOGY MCHC 33.4 32.0 - 12 MH 36.0 /[address] [facility] HEMATOLOGY MCH 31.3 27.0 - 12/ MH 31.0 /[address] [facility] HEMATOLOGY Hct 36.7 36.0 - 08/02 MH 48.0 /[address] [facility] HEMATOLOGY MCV 93.6 80.0 - 08/02 MH 98.0 /[address] [facility] HEMATOLOGY MPV 8.9 7.4 - 10.4 12 /[address] [facility] HEMATOLOGY Platelet 82 133 - 450 12 /[address] [facility] HEMATOLOGY INR 1.49 0.85 - 08/02 MH 1.17 /[address] [facility] HEMATOLOGY PT 18.1 12.0 - 08/02 MH 14.7 /[address] [facility] HEMATOLOGY PTT 33.0 22.9 - 12/ MH 35.8 /[address] [facility] HEMATOLOGY Segs-Bands # 2.6 1.5 [...] ELECTROLYT eGFR 46 04/13 Result Comment: The [facility] eGFR is calculated using the [...] 0.50 - 04/13 ES Lvl 1.40 /[address] [facility] ELECTROLYT BUN 13 7 - 22 04/13 ES /[address] [facility] ELECTROLYT Potassium 4.3 3.5 - 5.1 04/13 ES Lvl /2016 [facility] ELECTROLYT Sodium Lvl 142 135 - 145 04/[address] [facility] ELECTROLYT Chloride Lvl 107 95 - 109 04/13 ES /[address] [facility] ELECTROLYT CO2 25 24 - 32 04/13 ES /[address] [facility] ELECTROLYT Calcium Lvl 9.3 8.5 - 10.5 04/13 [address] [facility] ELECTROLYT Glucose Lvl 101 70 - 99 04/13 [address] [facility] HEMATOLOGY Eosinophils 0.2 0.0 - 0.5 04/13 MH # /[address] [facility] HEMATOLOGY Basophils # 0.1 0.0 - 0.2 04/[address] [facility] HEMATOLOGY Monocytes # 0.6 0.0 - 0.8 04/[address] [facility] HEMATOLOGY Lymphocytes 1.8 1.0 - 5.5 04/13 MH # /[address] [facility] HEMATOLOGY Segs-Bands # 3.0 1.5 - 8.1 04/[address] [facility] HEMATOLOGY Basophils 0.9 0.0 - 1.0 04/[address] [facility] HEMATOLOGY Monocytes 10.4 2.0 - 12.0 04/[address] [facility] HEMATOLOGY Eosinophils 3.0 0.0 - 4.0 04/[address] [facility] HEMATOLOGY Segs 53.7 45.0 - 04/13 MH 75.0 /2017 [facility] HEMATOLOGY Lymphocytes 32.0 20.0 - 04/13 MH 40.0 /[address] [facility] HEMATOLOGY INR 1.27 0.85 - 04/13 MH 1.17 /[address] [facility] HEMATOLOGY PT 16.2 12.0 - 04/13 MH 14.7 /[address] [facility] HEMATOLOGY MPV 8.9 7.4 - 10.4 04/[address] [facility] HEMATOLOGY RDW 15.4 11.5 - 04/13 MH 14.[address] [facility] HEMATOLOGY Platelet 79 133 - 450 04/[address] [facility] HEMATOLOGY MCH 32.2 27.0 - 04/13 MH 31.0 /2016 [facility] MCHC 33.3 32.0 - 04/13 MH 36.0 /2017 [facility] RBC 4.00 4.20 - 04/13 MH 5.40 /[address] [facility] HEMATOLOGY MCV 96.5 80.0 - 04/13 MH 98.0 /[address] [facility] HEMATOLOGY Hct 38.6 36.0 - 04/13 MH 48.0 /2016 [facility] Hgb 12.9 12.0 - 04/13 MH 16.0 [facility] WBC 5.6 3.7 - 10.4 04/[address] [facility] HEMATOLOGY PTT 28.2 22.9 - 04/13 MH 35.8 /[address] [facility] ELECTROLYT AGAP 7.1 10.0 - 02/16 ES 20.[address] [facility] ELECTROLYT eGFR 54 02/16 Result Comment: The [facility] eGFR is calculated using the [...] Lvl 8.8 8.5 - 10.5 02/[address] [facility] ELECTROLYT Chloride Lvl 107 95 - 109 02/16 [address] [facility] ELECTROLYT CO2 30 24 - 32 02/[address] [facility] ELECTROLYT Potassium 4.1 3.5 - 5.1 02/16 ES Lvl /[address] [facility] ELECTROLYT Glucose Lvl 75 70 - 99 02/[address] [facility] ELECTROLYT BUN 11 7 - 22 02/[address] [facility] ELECTROLYT Creatinine 0.95 0.50 - 02/16 ES Lvl 1.[address] [facility] ELECTROLYT Sodium Lvl 140 135 - 145 02/[address] [facility] HEMATOLOGY Hgb 13.0 12.0 - 02/16 16.[address] [facility] HEMATOLOGY Hct 38.8 36.0 - 02/16 48.[address] [facility] TUMOR CEA 11.8 0.0 - 3.0 02/16 [address] [facility] CHEM PANEL A/G Ratio 0.6 0.7 - 1.6 08/07 [facility] CHEM PANEL AGAP 11.9 10.0 - 08/07 MH 20.0 [facility] CHEM PANEL Globulin 4.1 2.0 - 4.0 08/07 [facility] CHEM PANEL B/C Ratio 15 6 - 25 08/07 [facility] CHEM PANEL eGFR 61 08/07 [facility] Comment: The [facility] eGFR is calculated using the [...] Magnesium 1.9 1.8 - 2.4 08/07 Lvl [facility] HEMATOLOGY MPV 8.8 7.4 - 10.4 08/07 [facility] HEMATOLOGY Platelet 54 133 - 450 08/07 [facility] HEMATOLOGY MCHC 33.1 32.0 - 12 MH 36.0 /2014 [facility] HEMATOLOGY RDW 14.7 11.5 - 08/07 MH 14.5 /2014 [facility] HEMATOLOGY MCV 97.0 80.0 - 08/07 MH 98.0 /[address] [facility] HEMATOLOGY MCH 32.1 27.0 - 12 MH 31.0 /[address] [facility] HEMATOLOGY RBC 3.54 4.20 - 12 MH 5.40 /[address] [facility] HEMATOLOGY WBC 3.6 3.7 - 10.4 08/07 [facility] HEMATOLOGY Hct 34.3 36.0 - 08/07 MH 48.0 [facility] HEMATOLOGY Hgb 11.4 12.0 - 12 MH 16.0 /2014 [facility] HEMATOLOGY Monocytes # 0.2 0.0 - 0.8 08/07 [facility] HEMATOLOGY Eosinophils 1.3 0.0 - 4.0 08/07 [facility] HEMATOLOGY Monocytes 7.0 2.0 - 12.0 08/07 [facility] HEMATOLOGY Lymphocytes 1.1 1.0 - 5.5 / MH # /2015 [facility] HEMATOLOGY Basophils 0.6 0.0 - 1.0 08/07 [facility] HEMATOLOGY Segs-Bands # 2.2 1.5 - 8.1 08/07 [facility] HEMATOLOGY Segs 61.3 45.0 - 08/07 MH 75.0 /2014 [facility] HEMATOLOGY Lymphocytes 29.8 20.0 - 08/07 MH 40.0 /[address] [facility] URINE AND UA Nitrite Negative Negative 08/06 STOOL (08/06/15 3:01 PM) /2014 [facility] URINE AND UA Leuk Est Large Negative 08/06 STO[facility] *ABN* /2014 [facility] (08/06/15 3:01 PM) URINE AND UA Blood Moderate Negative 08/06 STOOL *ABN* /2014 [facility] (08/06/15 3:01 PM) URINE AND UA Bili Negative Negative 08/06 STOOL *NA* /2014 [facility] (08/06/15 3:01 PM) URINE AND UA >=8.0 0.1 - 1.0 08/06 STOOL Urobilinogen * [facility] (08/06/15 3:01 PM) URINE AND UA Color Yellow Yellow 08/06 STOOL *NA* /2014 (08/06/15 3:01 PM) URINE AND UA Turbidity Cloudy Clear 08/06 STOOL *ABN* /2014 [facility] (08/06/15 3:01 PM) URINE AND UA Glucose Negative Negative 08/06 [facility] (08/06/15 3:01 PM) /2014 [facility] URINE AND UA Ketones Negative Negative 08/06 STOOL *NA* /[address] [facility] (08/06/15 3:01 PM) URINE AND UA Spec Grav 1.015 <=1.030 08/06 [facility] URINE AND UA pH 6.5 5.0 - 8.0 08/06 [facility] URINE AND UA Protein 30 mg/dL Negative 08/06 STOOL mg/dL /2014 [facility] URINE AND UA Sq Epi Few /LPF Few /LPF 08/06 [facility] URINE AND UA [place] Yeast Many /HPF None Seen 08/06 STOOL [...] Est Moderate Negative 08/06 STOOL *ABN* /2014 [facility] (08/05/15 10:40 PM) URINE AND [...] Color Yellow Yellow 08/06 STOOL *NA* /2014 [facility] (08/05/15 10:40 PM) URINE AND UA Protein Negative Negative 08/06 [facility] (08/05/15 10:40 PM) [facility] URINE AND UA pH 6.0 5.0 - 8.0 08/06 MH STOOL /2014 [facility] CARDIAC CK MB 5.3 0.5 - 3.6 08/06 ENZYMES /[address] [facility] CARDIAC Total CK 116 12 - 191 08/06 ENZYMES [facility] CARDIAC BNP 45 <=100 08/06 ENZYMES pg/mL /2014 [facility] CARDIAC Troponin-I <0.02 0.00 - 12 ENZYMES 0.40 /2014 [facility] CARDIAC CK MB Index 4.6 0.0 - 2.5 08/[address]ZYMES [facility] CHEM PANEL Ammonia 47.0 <=45.0 08/06 uMol/L /2014 [facility] CHEM PANEL Alk Phos 118 39 - 136 08/06 [facility] CHEM PANEL Total 7.4 6.4 - 8.4 08/06 Protein /2014 [facility] CHEM PANEL Calcium Lvl 8.5 8.5 - 10.5 08/06 [facility] CHEM PANEL eGFR 67 08/06 [facility] Comment: The [facility] eGFR is calculated using the [...] Bili Total 1.0 0.2 - 1.3 08/06 [facility] CHEM PANEL A/G Ratio 0.6 0.7 - 1.6 08/06 [facility] CHEM PANEL ALT 21 0 - 65 08/06 [facility] CHEM PANEL Albumin Lvl 2.7 3.5 - 5.0 08/06 [facility] CHEM PANEL AST 27 0 - 37 08/06 [facility] CHEM PANEL AGAP 11.5 10.0 - 08/06 MH 20.0 /[address] [facility] CHEM PANEL Globulin 4.7 2.0 - 4.0 12/ /2014 [facility] CHEM PANEL B/C Ratio 14 6 - 25 [address] [facility] CHEM PANEL BUN 11 7 - 22 08/06 [facility] CHEM PANEL Chloride Lvl 106 95 - 109 [address] [facility] CHEM PANEL Creatinine 0.81 0.50 - 12 Lvl 1.40 /2014 [facility] CHEM PANEL Potassium 3.5 3.5 - 5.1 12 Lvl /2014 [facility] CHEM PANEL Sodium Lvl 140 135 - 145 [address] [facility] CHEM PANEL CO2 26 24 - 32 [address] [facility] CHEM PANEL Glucose Lvl 109 70 - 99 [address] [facility] HEMATOLOGY MPV 9.1 7.4 - 10.4 08/[address] [facility] HEMATOLOGY RDW 15.4 11.5 - 12 14.5 /[address] [facility] HEMATOLOGY Platelet 70 133 - 450 12 /[address] [facility] HEMATOLOGY MCHC 33.1 32.0 - 12 36.0 /2014 [facility] HEMATOLOGY MCH 32.1 27.0 - 12 31.0 /[address] [facility] HEMATOLOGY MCV 97.2 80.0 - 12/ 98.0 /[address] [facility] HEMATOLOGY Hct 36.5 36.0 - 12 48.0 /[address] [facility] HEMATOLOGY Hgb 12.1 12.0 - 12 16.0 /[address] [facility] HEMATOLOGY RBC 3.76 4.20 - 12 MH 5.40 /[address] [facility] HEMATOLOGY WBC 6.0 3.7 - 10.4 08/06 /[address] [facility] HEMATOLOGY Monocytes # 0.5 0.0 - 0.8 08/06 /[address] [facility] HEMATOLOGY Eosinophils 0.1 0.0 - 0.5 12/08 MH # /2015 [facility] HEMATOLOGY Lymphocytes 1.8 1.0 - 5.5 12/08 MH # /2015 [facility] HEMATOLOGY Basophils 0.6 0.0 - 1.0 08/06 /[address] [facility] HEMATOLOGY Segs-Bands # 3.6 1.5 - 8.1 08/06 /2014 [facility] HEMATOLOGY Monocytes 8.4 2.0 - 12.0 12/ /2014 [facility] HEMATOLOGY Eosinophils 2.0 0.0 - 4.0 / /[address] [facility] HEMATOLOGY Lymphocytes 29.3 20.0 - 12 MH 40.0 /[address] [facility] HEMATOLOGY Segs 59.7 45.0 - [...] PANEL CO2 26 24 - 32 08/[address] [facility] CHEM PANEL Glucose Lvl 93 70 - 99 08/05 [facility] CHEM PANEL Sodium Lvl 140 135 - 145 08/[address] [facility] CHEM PANEL BUN 12 7 - 22 08/[address] [facility] CHEM PANEL Creatinine 0.88 0.50 - 08/05 Lvl 1.40 [facility] CHEM PANEL eGFR 60 08/05 [facility] Comment: The [facility] eGFR is calculated using the [...] Bili Total 0.9 0.2 - 1.3 08/[address] [facility] CHEM PANEL Alk Phos 126 39 - 136 08/05 [facility] CHEM PANEL Albumin Lvl 2.7 3.5 - 5.0 08/05 [facility] CHEM PANEL ALT 22 0 - 65 08/[address] [facility] CHEM PANEL AST 27 0 - 37 12 /[address] [facility] CHEM PANEL AGAP 11.8 10.0 - 12 MH 20.0 /[address] [facility] CHEM PANEL B/C Ratio 14 6 - 25 08/05 /[address] [facility] CHEM PANEL A/G Ratio 0.6 0.7 - 1.6 08/05 /[address] [facility] CHEM PANEL Globulin 4.6 2.0 - 4.0 08/[address] [facility] HEMATOLOGY MPV 8.9 7.4 - 10.4 08/05 /[address] [facility] HEMATOLOGY RDW 15.3 11.5 - 08/05 MH 14.5 /[address] [facility] HEMATOLOGY Platelet 69 133 - 450 [address] [facility] HEMATOLOGY Hct 37.6 36.0 - 08/05 MH 48.0 /[address] [facility] HEMATOLOGY MCHC 32.8 32.0 - 08/05 MH 36.0 /[address] [facility] HEMATOLOGY Hgb 12.4 12.0 - 08/05 MH 16.0 /[address] [facility] HEMATOLOGY MCV 96.5 80.0 - 08/05 98.0 /[address] [facility] HEMATOLOGY MCH 31.7 27.0 - 08/05 MH 31.0 /[address] [facility] HEMATOLOGY WBC 6.2 3.7 - 10.4 08/05 /[address] [facility] HEMATOLOGY RBC 3.90 4.20 - 08/05 MH 5.40 /[address] [facility] HEMATOLOGY Monocytes # 0.5 0.0 - 0.8 08/05 /[address] [facility] HEMATOLOGY Basophils 0.6 0.0 - 1.0 08/05 /[address] [facility] HEMATOLOGY Segs-Bands # 4.2 1.5 - 8.1 08/05 /2014 [facility] HEMATOLOGY Eosinophils 0.1 0.0 - 0.5 08/05 MH # /2014 [facility] HEMATOLOGY Lymphocytes 1.4 1.0 - 5.5 08/05 MH # /[address] [facility] HEMATOLOGY Lymphocytes 22.3 20.0 - 12 MH 40.0 /2014 [facility] HEMATOLOGY Monocytes 7.3 2.0 - 12.0 08/05 [facility] HEMATOLOGY Eosinophils 1.4 0.0 - 4.0 08/05 [facility] HEMATOLOGY Segs 68.4 45.0 - 08/05 MH 75.0 /2014 [facility] HEMATOLOGY Basophils 0.4 0.0 - 1.0 04/19 [facility] HEMATOLOGY Monocytes # 0.9 0.0 - 0.8 04/19 /[address] [facility] HEMATOLOGY Lymphocytes 1.0 1.0 - 5.5 04/19 MH # /[address] [facility] HEMATOLOGY Segs-Bands # 4.2 1.5 - 8.1 04/19 /[address] [facility] HEMATOLOGY Eosinophils 0.2 0.0 - 0.5 04/19 MH # /[address] [facility] HEMATOLOGY Eosinophils 2.7 0.0 - 4.0 04/19 /[address] [facility] HEMATOLOGY Monocytes 13.7 2.0 - 12.0 04/19 /[address] [facility] HEMATOLOGY Lymphocytes 16.6 20.0 - 04/19 MH 40.0 /[address] [facility] HEMATOLOGY Segs 66.6 45.0 - 04/19 MH 75.0 /[address] [facility] HEMATOLOGY MCHC 33.3 32.0 - 04/19 MH 36.0 /[address] [facility] HEMATOLOGY RDW 15.2 11.5 - 04/19 MH 14.5 /[address] [facility] HEMATOLOGY MCH 32.3 27.0 - 04/19 MH 31.0 /[address] [facility] HEMATOLOGY MCV 96.9 80.0 - 04/19 98.0 /[address] [facility] HEMATOLOGY Hct 30.1 36.0 - 04/19 MH 48.0 /[address] [facility] HEMATOLOGY Platelet 67 133 - 450 04/19 /[address] [facility] HEMATOLOGY MPV 8.4 7.4 - 10.4 04/19 /[address] [facility] HEMATOLOGY Hgb 10.0 12.0 - 04/19 16.0 /[address] [facility] HEMATOLOGY RBC 3.11 4.20 - 04/19 MH 5.40 /2013 [facility] WBC 6.3 3.7 - 10.4 04/[address] [facility] CHEM PANEL Globulin 4.8 2.0 - 4.0 04/[address] [facility] CHEM PANEL A/G Ratio 0.6 0.7 - 1.6 04/[address] [facility] CHEM PANEL AGAP 13.4 10.0 - 04/13 MH 20.[address] [facility] CHEM PANEL B/C Ratio 9 6 - 25 04/[address] [facility] CHEM PANEL eGFR 59 04/13 <sup>1</sup>R esult [facility] Comment: The eGFR is calculated [...] Albumin Lvl 2.9 3.5 - 5.0 04/[address] [facility] CHEM PANEL ALT 23 0 - 65 04/13 [facility] CHEM PANEL AST 44 0 - 37 04/[address] [facility] CHEM PANEL Alk Phos 122 39 - 136 04/[address] [facility] CHEM PANEL Total 7.7 6.4 - 8.4 04/[address] [facility] CHEM PANEL Bili Total 1.5 0.2 - 1.3 04/13 [facility] CHEM PANEL Sodium Lvl 144 135 - 145 04/[address] [facility] CHEM PANEL Potassium 3.4 3.5 - 5.1 04/[address] [facility] CHEM PANEL Chloride Lvl 106 95 - 109 04/13 [facility] CHEM PANEL CO2 28 24 - 32 04/[address] [facility] CHEM PANEL Calcium Lvl 8.8 8.5 - 10.5 04/[address] [facility] CHEM PANEL Creatinine 0.9 0.5 - 1.4 04/13 Lvl [facility] CHEM PANEL Glucose Lvl 71 70 - 99 04/13 <sup>2</sup>I nterpretive [facility] Data: Adult reference range values reflect the clinical guidelines
of the [place] [employer]. CHEM PANEL BUN 8 7 - 22 04/13 [facility] CHEM PANEL A/G Ratio 0.6 0.7 - 1.6 04/13 [facility] CHEM PANEL Globulin 4.8 2.0 - 4.0 04/[address] [facility] CHEM PANEL Bili 0.8 0.0 - 1.0 04/13 [facility] CHEM PANEL ALT 23 0 - 65 04/13 [facility] CHEM PANEL Alk Phos 122 39 - 136 04/[address] [facility] CHEM PANEL AST 45 0 - 37 08 /[address] [facility] CHEM PANEL Bili Direct 0.5 0.0 - 0.3 04/13 /[address] [facility] CHEM PANEL Bili Total 1.3 0.2 - 1.3 04/[address] [facility] CHEM PANEL Total 7.7 6.4 - 8.4 04/13 Protein /[address] [facility] CHEM PANEL Albumin Lvl 2.9 3.5 - 5.0 04/13 /[address] [facility] HEMATOLOGY MCH 32.1 27.0 - 08 MH 31.0 /[address] [facility] HEMATOLOGY RDW 14.6 11.5 - 08 MH 14.5 /[address] [facility] HEMATOLOGY MCHC 33.1 32.0 - 08 36.0 /[address] [facility] HEMATOLOGY Platelet 76 133 - 450 04/13 /[address] [facility] HEMATOLOGY RBC 3.79 4.20 - 04/13 MH 5.40 /[address] [facility] HEMATOLOGY Hct 36.7 36.0 - 04/13 48.0 /[address] [facility] HEMATOLOGY MCV 97.0 81.0 - 04/13 99.0 /[address] [facility] HEMATOLOGY Hgb 12.1 12.0 - 04/13 16.0 /[address] [facility] HEMATOLOGY WBC 4.6 3.7 - 10.4 04/13 /[address] [facility] HEMATOLOGY MPV 8.9 7.4 - 10.4 04/13 /[address] [facility] HEMATOLOGY Segs 52.6 45.0 - 04/13 75.0 /[address] [facility] HEMATOLOGY Monocytes # 0.6 0.0 - 0.8 04/13 /[address] [facility] HEMATOLOGY Eosinophils 0.1 0.0 - 0.5 04/13 MH # /2014 [facility] HEMATOLOGY Basophils 1.0 0.0 - 1.0 04/13 /[address] [facility] HEMATOLOGY Segs-Bands # 2.4 1.5 - 8.1 04/13 /[address] [facility] HEMATOLOGY Lymphocytes 1.5 1.0 - 5.5 04/13 MH # /2014 [facility] HEMATOLOGY Lymphocytes 32.1 20.0 - 08 MH 40.0 /[address] [facility] HEMATOLOGY Monocytes 12.2 2.0 - 12.0 04/13 /[address] [facility] HEMATOLOGY Eosinophils 2.1 0.0 - 4.0 04/13 /[address] [facility] CHEM PANEL AST 43 0 - 37 07 /[address] [facility] CHEM PANEL Albumin Lvl 2.9 3.5 - 5.0 03/06 [address] [facility] CHEM PANEL Total 7.7 6.4 - 8.4 / MH Protein /2013 [facility] CHEM PANEL Bili Direct 0.5 0.0 - 0.3 03/06 MH [facility] CHEM PANEL Alk Phos 137 39 - 136 / MH [facility] CHEM PANEL Bili Total 1.4 0.2 - 1.3 03/06 [facility] CHEM PANEL ALT 22 0 - 65 / MH [facility] CHEM PANEL Bili 0.9 0.0 - 1.0 / MH Indirect /2013 [facility] CHEM PANEL Globulin 4.8 2.0 - 4.0 03/06 MH [facility] CHEM PANEL A/G Ratio 0.6 0.7 - 1.6 03/[address] [facility] ELECTROLYT AGAP 8.9 10.0 - 07/ MH ES 20.0 /[address] [facility] ELECTROLYT eGFR 59 07 <sup>1</sup>R MH ES esult [facility] Comment: The eGFR is calculated [...] 28 24 - 32 / MH ES [facility] ELECTROLYT Calcium Lvl 8.7 8.5 - 10.5 03/06 MH ES [facility] ELECTROLYT BUN 9 7 - 22 / MH ES [facility] ELECTROLYT Creatinine 0.9 0.5 - 1.4 / MH ES Lvl /[address] [facility] ELECTROLYT Sodium Lvl 140 135 - 145 03/06 MH [facility] ELECTROLYT Potassium 3.9 3.5 - 5.1 03/06 ES Lvl /[address] [facility] ELECTROLYT Chloride Lvl 107 95 - 109 03/06 [facility] ELECTROLYT Glucose Lvl 84 70 - 99 03/06 <sup>2</sup>I nterpretive [facility] Data: Adult reference range values reflect the clinical guidelines
of the [place] [employer]. HEMATOLOGY Hgb 11.9 12.0 - 03/06 16.0 /[address] [facility] HEMATOLOGY Hct 35.2 36.0 - 03/06 48.0 /[address] [facility] HEMATOLOGY Platelet 80 133 - 450 03/06 [facility] HEMATOLOGY WBC 4.4 3.7 - 10.4 03/[address] [facility] HEMATOLOGY PT 15.9 12.0 - 03/06 14.[address] [facility] HEMATOLOGY INR 1.29 0.85 - 03/06 <sup>3</sup>I 1.[address] [facility] Data: RECOMMENDED RANGES FOR PROTIME INR:
2.0-3.0 for most medical and surgical thromboemboli c states.
2.5-3.5 for artificial heart valves and recurrent embolism.<br/ >
INR SHOULD BE USED ONLY FOR PATIENTS ON STABLE ANTICOAGULANT THERAPY. HEMATOLOGY PTT 32.6 22.9 - 03/06 <sup>4</sup>I 35.8 /[address] [facility] Data: Heparin Therapeutic Range: 57 - 92 Seconds TUMOR CEA 12.2 0.0 - 3.0 03/06 [facility] Pathology Reports No Data Provided for This Section Diagnostic Reports Report Value Date Source Renal pyelogram Patient Name: EDGARD DÍAZ 08/03/2017 [facility] retrograde DX : 1930; Age: 86 years Female MR: [id number] Study: Renal pyelogram retrograde DX 08/03/2017 3:09 PM [facility] CLINICAL INDICATION: bilateral lithotripsy Bilateral stent placement - Fluoro time 2.22 min Dose 17.35 mgy C #3 OR 4 COMPARISON: None FINDINGS: Limited intraoperative fluoroscopic images provided for retrograde pyelography. Contrast administration demonstrates moderate bilateral hydronephrosis. Subsequently bilateral ureteral stents were placed. Refer to operative report for full details. SL: BRUNA-M PET CT Colorectal CA Patient Name: EDGARD DÍAZ 03/04/2017 [facility] restaging : 1930; Age: 86 years y/o Female MR: [id number] Study: PET CT Colorectal CA restaging 03/04/2017 [...] urinary bladder suspicious for chronic cystitis. SL: [id number] Carotid artery Doppler CAROTID DOPPLER 08/06/2015 [facility] US HISTORY: Mental status changes. Encephalopathy. [...] Chest 1view DX Chest one view: 08/05/2015 [facility] COMPARISON: 04/19/2014 FINDINGS: Limited AP portable [...] CT PROCEDURE: Brain wo contrast CT 08/05/2015 [facility] REASON FOR EXAM: pt from IV [...] 2 views EXAM: Chest 2 views 04/19/2014 [facility] DATE: Apr 19, 2014 09:48:02 AM [...] PET CT Colorectal CA PET/CT SCAN: 03/24/2014 [facility] restaging TECHNIQUE: 14 mCi of FDG [...] hypertension. SL:[address] Colorectal CA 09/14/2013 [facility] restaging EXAM: PET/CT HISTORY: Colon cancer, [...] Comments Source Systolic (mm Hg) 125 08/03/2017 [facility] Diastolic (mm Hg) 71 08/03/2017 [facility] Systolic (mm Hg) 129 08/03/2017 [facility] Diastolic (mm Hg) 66 08/03/2017 [facility] Systolic (mm Hg) 128 08/03/2017 [facility] Diastolic (mm Hg) 59 08/03/2017 [facility] Respitory Rate 16 08/03/2017 [facility] Respitory Rate 11 08/03/2017 [facility] Respitory Rate 9 08/03/2017 [facility] Temperature Oral (F) 97.3 F 08/02/2017 [facility] Heart Rate 70 08/02/2017 [facility] BMI Calculated 27.18 08/02/2017 [facility] Height 165.1 cm 08/02/2017 [facility] Weight 74.091 08/02/2017 [facility] Systolic (mm Hg) 99 04/21/2017 [facility] Diastolic (mm Hg) 56 04/21/2017 [facility] Respitory Rate 18 04/21/2017 [facility] Respitory Rate 18 04/21/2017 [facility] Systolic (mm Hg) 114 04/21/2017 [facility] Diastolic (mm Hg) 58 04/21/2017 [facility] Systolic (mm Hg) 109 04/21/2017 [facility] Diastolic (mm Hg) 56 04/21/2017 [facility] Respitory Rate 12 04/21/2017 [facility] Height 165.1 cm 04/13/2017 [facility] Weight 74.545 04/13/2017 [facility] BMI Calculated 27.35 04/13/2017 [facility] Temperature Oral (F) 97.4 F 04/13/2017 [facility] Heart Rate 80 04/13/2017 [facility] Systolic (mm Hg) 118 02/23/2017 [facility] Diastolic (mm Hg) 61 02/23/2017 [facility] Respitory Rate 32 02/23/2017 [facility] Respitory Rate 28 02/23/2017 [facility] Systolic (mm Hg) 109 02/23/2017 [facility] Diastolic (mm Hg) 60 02/23/2017 [facility] Systolic (mm Hg) 109 02/23/2017 [facility] Diastolic (mm Hg) 61 02/23/2017 [facility] Respitory Rate 23 02/23/2017 [facility] Temperature Oral (F) 97.4 F 02/16/2017 [facility] Heart Rate 72 02/16/2017 [facility] BMI Calculated 28.02 02/16/2017 [facility] Weight 76.364 02/16/2017 [facility] Height 165.1 cm 02/16/2017 [facility] Weight 159 08/12/2015 [id number] Height 64.4 08/12/2015 [id number] Temperature Oral (F) 97.6 F 08/12/2015 [id number] Heart Rate 93 08/12/2015 [id number] Diastolic (mm Hg) 63 08/12/2015 [id number] Systolic (mm Hg) 114 08/12/2015 [id number] Systolic (mm Hg) 102 08/07/2015 [facility] Diastolic (mm Hg) 66 08/07/2015 [facility] Temperature Oral (F) 97.6 F 08/07/2015 [facility] Respitory Rate 16 08/07/2015 [facility] Heart Rate 77 08/07/2015 [facility] Respitory Rate 15 08/07/2015 [facility] Temperature Oral (F) 97.4 F 08/07/2015 [facility] Heart Rate 81 08/07/2015 [facility] Systolic (mm Hg) 100 08/07/2015 [facility] Diastolic (mm Hg) 66 08/07/2015 [facility] Systolic (mm Hg) 115 08/07/2015 [facility] Diastolic (mm Hg) 73 08/07/2015 [facility] Heart Rate 83 08/07/2015 [facility] Respitory Rate 16 08/07/2015 [facility] Temperature Oral (F) 97.4 F 08/07/2015 [facility] BMI Calculated 26.89 08/06/2015 [facility] [...] 16 04/20/2014 [facility] Heart Rate 92 04/20/2014 [facility] Temperature Oral (F) 98.2 F 04/20/2014 [facility] Systolic (mm Hg) 109 04/20/2014 [facility] Diastolic (mm Hg) 70 04/20/2014 [facility] Heart Rate 90 04/20/2014 [facility] Temperature Oral (F) 97.9 F 04/20/2014 [...] 03/13/2014 [facility] Systolic (mm Hg) 113 03/13/2014 [facility] Diastolic (mm Hg) 54 03/13/2014 [facility] Temperature Oral (F) 97.6 F 03/06/2014 [facility] Height 165.1 cm 03/06/2014 [facility] Weight 65.909 03/06/2014 [facility] BMI Calculated 24.18 03/06/2014 [facility] Weight 149 02/02/2014 [facility] [...] Number For Provider Date Date Visit Outpatient [id number] COLON PING NORMAN 09/14 Active [facility] Outpatient [id number] 153.9 PING NORMAN 09/20 Active [facility] [id number] [facility] 03/13 [facility] Outpatient 0 [facility] [id number] Dakota Michele, 03/23 03/23 [id number] General [facility] [address] [facility] Outpatient [id number] Ping Norman 03/24 03/25 [facility] Lab Report [id number] Dakota Michele, 03/26 03/26 [place] [id number] [facility] Lab Report [id number] odoros 04/12 04/12 [place] [address] [facility] OBS [id number] Dakota Michele 04/18 04/20 [place] Observation [facility] Office [id number] Dakota Michele, 04/27 04/27 [place] Visit [id number] Group SE General Surgery [address] [facility] [id number] Ping Norman 08/05 09/04 [facility] OBS [id number] Van 08/06 08/07 [place] [facility] 3 [facility] [id number] 08/12 08/12 2.16.840 Medical [id number] /2014 .1.72678 Group [id number]. [id number] 11.56258 Outpatient [id number] [facility] 05/14 [facility] 0 VOLOY [facility] Outpatient [id number] [facility] 10/15 Active [facility] 1 VOLOYIAN [place] Outpatient [id number] [facility] 02/23 Active [facility] 3 VOLOY Macyo Outpatient [id number] [facility] 02/23 Active [facility] 2 VOL [facility] Bedded [id number] [facility] 02/23 02/23 [place] [facility] 4 Volian /2016 [facility] [id number] [facility] 03/04 03/05 [facility] 5 Voloyiannis /2016 [facility] Outpatient [id number] NINO [facility] 03/30 [facility] [place] Outpatient [id number] [facility] 04/21 [facility] VOLOY [facility] Surgery [id number] [facility] 04/21 04/21 [place] 7 Voloyiannis /2016 [facility] Outpatient [id number] ROMAN FOSTER 05/12 [facility] [place] Outpatient [id number] NINO [facility] 05/17 Active [facility] Outpatient [id number] NURSE VISIT 06/22 [facility] Day Surgery [id number] Nino [facility] 08/03 08/03 [facility] Outpatient [id number] NINO WILSON 08/26 [facility] [place] Outpatient [id number] JOVANA CUI 08/26 [facility] Ambulatory [id number] Jovana Karli 08/26 08/26 Urology [facility] Outpatient [id number] Nino [facility] 08/26 08/27 Urology [facility] Outpatient [id number] NINO [facility] 09/27 [facility] Outpatient [id number] Nino [facility] 09/27 09/28 Urology [facility] Outpatient [id number] NINO [facility] 01/14 [facility] Ambulatory [id number] [facility] 01/14 01/14 Urology Pre-Reg [facility] Procedures Procedure Code Date Perfomer Comments Source Cystourethroscopy, 79854 Medical with removal of 7 Group foreign body, calculus, or ureteral stent from urethra or bladder (separate procedure); simple Hernia repair [id number] Medical 4 Group,[facility] Cannulation of [id number] Medical Portacath Group,[facility] Cardiac [id number] 1994 Medical catheterization<sup>1 Group, </sup> [place] Cataract extraction [id number] Medical and insertion of Group, intraocular lens [facility] Cholecystectomy [id number] Medical Group,[facility] Colonoscopy [id number] Medical Group,[facility] Hysterectomy [id number] Medical Group,[facility] Knee [id number] 2011 Medical replacement<sup>2</red Group, p> [facility] Operation [id number] Medical Group,[facility] Partial resection of [id number] Medical colon Group,[facility] Assessment and Plan Assessment and Plan Date Source Extracted from:Title: History and Physical 08/03/2017 [facility] Author: Nino Wilson MD Date: 08/03/17 Renal calculi Extracted from:Title: Clinical Document 04/21/2017 [facility] Author: Galdino Ureña MD Date: 04/21/17 PREOPERATIVE DIAGNOSIS: Personal history of colon cancer. POSTOPERATIVE DIAGNOSIS: Personal history of colon cancer. PROCEDURE: Port-A-Cath removal. SURGEON: Dr. Ureña. CHILD CARE TEAM LEAD: None. ANESTHESIA: General. IV FLUIDS: 200 mL. [...] We placed a 2- 0 Vicryl in noyjqh-uu-kvtzm fashion at the site of the Port-A-Cath [...] the patients satisfaction Extracted from:Title: preop 02/23/2017 [facility] Author: Roman Foster, MPH, PA-C Date: [...] and Dr. Galdino Ureña, who provided a ebjw-ec-cmck visit and performed the physical exam, assessment and plan, and the note transcribed by Roman Mason total exam time, coordination of care, education >20 minutes [3] Extracted from:Title: Clinical Document 08/07/2015 [facility] Author: Van Luu MD Date: 08/06/15 Chart reveiwed. Patient seen and examined. WIll continue to follow. Extracted from:Title: Clinical Document 04/20/2014 [facility] Author: Dakota Michele MD Date: 04/19/14 Surgery Progress Note Attending: Dakota Michele MD Service: Plastic Surgery Service Code status: None Specified=FULL CODE Reason for Admission: 553.2 Working DRG: None Documented Isolation: None Documented Consulting Physicians: Dakota Michele MD Office: MSO: [id number] Service: General Surgery SUBJECTIVE: Doing OK. Still [...] Referring Provider: Galdino Ureña MD Primary Provider: rEika Chavez MD CC: incisional hernia. History of Present Illness: Oncologist - Dr. Marlyn Norman; Steward/Stewardess Third Class - Dr. Angel Mike ............Sharifa Tatum March [...] UMB HERNIA WITHOUT MENTION OBSTRUCTION/GANGRENE (ICD-553.1) ( RYZ66-H16.9) Assessment: Unchanged Will offer repair as she desires intervention Wll request cardiac clearance Onel with this latest PET to reaffirt cancer free state Discussed case with referring MD Orders: Office Visit, [facility] III - 05011 (CPT-27999) Problem # 2: CARCINOMA, ASCENDING COLON (ICD-153.6) (TYV44-J27.2) Assessment: Improved Post excision and allears to be disease free Orders: Office Visit, [facility] Level III - 90859 (CPT-02580) Patient Instructions: 1) Cardiac eval for pre [...] on: 08/03/17 Social History ElementQualifiersDate Reported 08/12/2015 [id number] Tobacco Use: .13275 . Are you a: never smoker Aug [...]
--- OUTSIDE RECORDS SUMMARY | 2019-04-21 08:10 | XMS REPORT | CCD ---
:[address] [facility] Care Team Providers Name Role Phone Marlyn Ceballos Consulting Provider Allergies, Adverse Reactions, Alerts Substance Reaction Status morphine Active Problem List Condition Effective Dates Status CAD - Coronary artery disease Active Cancer of colon 05/10/2011 Active Cirrhosis of liver Active Esophageal varices Active Hepatitis C Active Pneumonia Active
--- OUTSIDE RECORDS SUMMARY | 2019-04-21 08:10 | XMS REPORT | CCD ---
:1930 Author Organization [facility] Care Team Providers Name Role Phone Marlyn Ceballos Referring Provider Allergies, Adverse Reactions, Alerts Substance Reaction Status morphine Active Problem List Condition Effective Dates Status CAD - Coronary artery disease Active Cancer of colon 05/10/2011 Active Cirrhosis of liver Active Esophageal varices Active Hepatitis C Active Pneumonia Active
--- OUTSIDE RECORDS SUMMARY | 2019-04-21 08:12 | XMS REPORT | Continuity of Care Document ---
:1930 Author Organization [facility] Care Team Providers Name Role Phone MD Michele Hoang Unavailable Unavailable Insurance Providers Payer name Policy type / Policy ID Covered alliance party ID Policy [place] Coverage type [place] [employer] AARP HE[employer]CARE OPTIONS (MEDICARE SUPPLEMENT AARP HEALTHCARE [...] Michele MD [facility] [place] Mar 26, 2014 Allergies, Adverse Reactions, Alerts [...]
--- OUTSIDE RECORDS SUMMARY | 2019-04-21 08:12 | XMS REPORT | Continuity of Care Document ---
:1930 Author Organization [facility] Care Team Providers Name Role Phone MD Niranjan, Galdino Unavailable Unavailable Insurance Providers Payer name Policy type / Policy ID Covered libertarian ID Policy Mont[place] Coverage type [place]IC[place]: [employer] AARP HEALTHCARE OPTIONS (MEDICARE SUPPLEMENT AARP HEALTHCARE [...] Location Date Lab Report Galdino Ureña MD [facility] Apr 12, 2014 Allergies, Adverse Reactions, Alerts [...]
--- OUTSIDE RECORDS SUMMARY | 2019-04-21 08:12 | XMS REPORT | Continuity of Care Document ---
:1930 Author Organization [facility] Care Team Providers Name Role Phone MD Michele Hoang Unavailable Unavailable Insurance Providers Payer name Policy type / Policy ID Covered alliance party ID Policy [place] Coverage type MEDICARE [place]: [employer] AARP HEALTHCARE OPTIONS (MEDICARE SUPPLEMENT AARP HEALTHCARE [...] Location Date Office Visit Dakota Michele MD [facility] SE General Apr 27, 2014 Surgery [...]
--- OUTSIDE RECORDS SUMMARY | 2019-04-21 08:12 | XMS REPORT | Continuity of Care Document ---
:1930 Author Organization [facility] Care Team Providers Name Role Phone MD Michele Hoang Unavailable Unavailable Insurance Providers Payer name Policy type / Policy ID Covered alliance party ID Policy Mont[place] Coverage type [place] [employer] HEALTHCARE OPTIONS (MEDICARE SUPPLEMENT AARP HEALTHCARE [...] Location Date Office Visit Dakota Michele MD [facility] SE General Mar 23, 2014 Surgery [...]
--- OUTSIDE RECORDS SUMMARY | 2019-04-21 08:12 | XMS REPORT ---
:1930 Author Organization [employer] Care Team Providers Name Role Phone Belkis Luuad Provider Role Unavailable Allergies, Adverse Reactions, Alerts Substance Reaction Event Type Adhesive Tape rash Drug Allergy Morphine Sulfate Info Not Available Drug Allergy Encounters Encounter Location Date Unknown [facility] Aug 12, 2015 Problems Problem [...] End Status Dosage Date Date Propranolol HCl [facility] 34056-04 20 mg Orally Active 1 tablet 73-00 daily Gabapentin [facility] 29522-71 300 MG Orally Active 1 capsule 39-19 twice a day (bid) B-12 [facility] 11979-46 2500 MCG Active Unknown 92-72 Sublingual Ocuvite [facility] 44808-82 Orally daily Active 1 tablet 87-60 Lasix [facility] 45389-07 40 MG Orally Active 1 tablet 60-13 Once a day Ciprofloxacin [facility] 13497-40 500 MG/5ML (10%) Active 5 ml 93-01 Orally Twice a day [facility]97 25 MG Orally Active 1 tablet 03-11 daily Caltrate 600+D [facility] 37148-69 600-400 MG-UNIT Active 1 tablet 86-00 Orally [...]
--- OUTSIDE RECORDS SUMMARY | 2019-04-21 08:12 | XMS REPORT ---
:1930 Author Organization [facility] Address [address] [place] [address] [address] [place] [address] Care Team Providers Name Role Phone MARY [...] Value Reference Range Comments ALPHA-FETOPROTEIN (BEAKER) (test wetw=0037) 2.9 ng/mL <10.0 HEPATIC FUNCTION [id number] 16:38:00 Test Item Value Reference Range Comments TOTAL PROTEIN (BEAKER) (test fgmp=872) 9.0 gm/dL 6.0-8.3 ALBUMIN (BEAKER) (test pjkl=5071) 2.8 g/dL 3.5-5.0 BILIRUBIN TOTAL (BEAKER) (test ypog=489) 1.2 mg/dL 0.2-1.2 BILIRUBIN DIRECT (BEAKER) (test xzdv=829) 0.7 mg/dL 0.1-0.5 ALKALINE PHOSPHATASE (BEAKER) (test rrve=765) 111 U/L 40-150 AST (SGOT) (BEAKER) (test dadm=710) 31 U/L 5-34 ALT (SGPT) (BEAKER) (test mfoi=949) 12 U/L 6-55 BASIC METABOLIC [id number] 16:38:00 Test Item Value Reference Range Comments SODIUM (BEAKER) (test 133 meq/L 136-145 cmzc=129) POTASSIUM (BEAKER) (test 4.0 meq/L 3.5-5.1 pyqi=833) CHLORIDE (BEAKER) (test 100 meq/L 98-107 pgzp=821) CO2 (BEAKER) (test 27 meq/L 22-29 gutg=352) BLOOD UREA NITROGEN 20 mg/dL 7-21 (BEAKER) (test ncje=034) CREATININE (BEAKER) (test 1.07 mg/dL 0.57-1.25 btpg=358) GLUCOSE RANDOM (BEAKER) 71 mg/dL 70-105 (test kuuu=009) CALCIUM (BEAKER) (test 9.4 mg/dL 8.4-10.2 edhq=357) EGFR (BEAKER) (test 49 mL/min/1.73 sq m ESTIMATED GFR IS NOT bvpy=9558) ACCURATE CREATININE CLEARANCE IN PREDICTING GLOMERULAR FILTRATION RATE. ESTIMATED GFR IS NOT APPLICABLE FOR DIALYSIS PATIENTS. [id number] 16:33:00 Test Item Value Reference Range Comments AMMONIA (BEAKER) (test dbik=107) 40 mol/L 18-72 PROTHROMBIN [id number] 16:29:00 Test Item Value Reference Range Comments PROTIME (BEAKER) (test vpor=939) 16.5 seconds 11.7-14.7 INR (BEAKER) (test rsdo=572) 1.3 <=5.9 RECOMMENDED COUMADIN/WARFARIN INR THERAPY RANGESSTANDARD DOSE: 2.0 - 3.0 Includes: PROPHYLAXIS forvenous thrombosis, systemic embolization; TREATMENT for venous thrombosis and/or pulmonary embolus.HIGH RISK: Target INR is 2.5-3.5 for patients with mechanical heart valves.CBC W/PLT COUNT & AUTO [id number] 16:22:00 Test Item Value Reference Range Comments WHITE BLOOD CELL COUNT (BEAKER) (test aene=585) 5.0 K/ L 3.5-10.5 RED BLOOD CELL COUNT (BEAKER) (test kfwk=822) 3.39 M/ L 3.93-5.22 HEMOGLOBIN (BEAKER) (test gfwt=062) 10.7 GM/DL 11.2-15.7 HEMATOCRIT (BEAKER) (test zejb=531) 33.1 % 34.1-44.9 MEAN CORPUSCULAR VOLUME (BEAKER) (test esea=924) 97.6 fL 79.4-94.8 MEAN CORPUSCULAR HEMOGLOBIN (BEAKER) (test 31.6 pg 25.6-32.2 lnqt=537) MEAN CORPUSCULAR HEMOGLOBIN CONC (BEAKER) (test 32.3 GM/DL 32.2-35.5 arjx=061) RED CELL DISTRIBUTION WIDTH (BEAKER) (test 15.0 % 11.7-14.4 ggoi=060) PLATELET COUNT (BEAKER) (test lgum=642) 98 K/CU MM 150-450 MEAN PLATELET VOLUME (BEAKER) (test tpvv=172) 10.0 fL 9.4-12.3 NUCLEATED RED BLOOD CELLS (BEAKER) (test 0 /100 WBC 0-0 knlu=065) NEUTROPHILS RELATIVE PERCENT (BEAKER) (test 71 % juoi=530) LYMPHOCYTES RELATIVE PERCENT (BEAKER) (test 14 % cjyy=159) MONOCYTES RELATIVE PERCENT (BEAKER) (test 12 % oais=253) EOSINOPHILS RELATIVE PERCENT (BEAKER) (test 2 % myiy=439) BASOPHILS RELATIVE PERCENT (BEAKER) (test 1 % uwiv=877) NEUTROPHILS ABSOLUTE COUNT (BEAKER) (test 3.51 K/ L 1.56-6.13 jvox=499) LYMPHOCYTES ABSOLUTE COUNT (BEAKER) (test 0.69 K/ L 1.18-3.74 rxwl=482) MONOCYTES ABSOLUTE COUNT (BEAKER) (test qujt=835) 0.62 K/ L 0.24-0.36 EOSINOPHILS ABSOLUTE COUNT (BEAKER) (test 0.10 K/ L 0.04-0.36 ovga=457) BASOPHILS ABSOLUTE COUNT (BEAKER) (test gecd=829) 0.04 K/ L 0.01-0.08 IMMATURE GRANULOCYTES-RELATIVE PERCENT (BEAKER) 0 % 0-1 (test osuo=2821) ALPHA FETOPROTEIN (AFP), TUMOR [id number] 17:15:00 Test Item Value Reference Range Comments ALPHA-FETOPROTEIN (BEAKER) (test kudv=1015) 3.3 ng/mL <10.0 [id number] 16:34:00 Test Item Value Reference Range Comments MAGNESIUM (BEAKER) (test ipfv=131) 1.8 mg/dL 1.6-2.6 BASIC METABOLIC [id number] 16:34:00 Test Item Value Reference Range Comments SODIUM (BEAKER) (test 133 meq/L 136-145 urtk=858) POTASSIUM (BEAKER) (test 3.9 meq/L 3.5-5.1 qhbv=116) CHLORIDE (BEAKER) (test 99 meq/L 98-107 xqsr=008) CO2 (BEAKER) (test 25 meq/L 22-29 iafr=554) BLOOD UREA NITROGEN 12 mg/dL 7-21 (BEAKER) (test ydfh=505) CREATININE (BEAKER) (test 0.97 mg/dL 0.57-1.25 uqvg=756) GLUCOSE RANDOM (BEAKER) 93 mg/dL 70-105 (test yeio=074) CALCIUM (BEAKER) (test 9.0 mg/dL 8.4-10.2 wemq=406) EGFR (BEAKER) (test 54 mL/min/1.73 sq m ESTIMATED GFR IS NOT grun=9403) ACCURATE CREATININE CLEARANCE IN PREDICTING GLOMERULAR FILTRATION RATE. ESTIMATED GFR IS NOT APPLICABLE FOR DIALYSIS PATIENTS. Specimen slightly ictericHEPATIC FUNCTION [id number] 16:34:00 Test Item Value Reference Range Comments TOTAL PROTEIN (BEAKER) (test ucin=553) 8.0 gm/dL 6.0-8.3 ALBUMIN (BEAKER) (test nxmh=7577) 3.0 g/dL 3.5-5.0 BILIRUBIN TOTAL (BEAKER) (test nzeo=716) 1.9 mg/dL 0.2-1.2 BILIRUBIN DIRECT (BEAKER) (test aecr=746) 0.8 mg/dL 0.1-0.5 ALKALINE PHOSPHATASE (BEAKER) (test ukys=646) 122 U/L 40-150 AST (SGOT) (BEAKER) (test qqjg=586) 30 U/L 5-34 ALT (SGPT) (BEAKER) (test ziyj=441) 12 U/L 6-55 Specimen slightly ictericPROTHROMBIN [id number] 16:17:00 Test Item Value Reference Range Comments PROTIME (BEAKER) (test bgdr=069) 17.3 seconds 11.7-14.7 INR (BEAKER) (test ozrf=920) 1.4 <=5.9 RECOMMENDED COUMADIN/WARFARIN INR THERAPY RANGESSTANDARD DOSE: 2.0 - 3.0 Includes: PROPHYLAXIS forvenous thrombosis, systemic embolization; TREATMENT for venous thrombosis and/or pulmonary embolus.HIGH RISK: Target INR is 2.5-3.5 for patients with mechanical heart valves.CBC W/PLT COUNT & AUTO [id number] 16:17:00 Test Item Value Reference Range Comments WHITE BLOOD CELL COUNT (BEAKER) (test uyqz=437) 5.6 K/ L 3.5-10.5 RED BLOOD CELL COUNT (BEAKER) (test ysqc=526) 3.83 M/ L 3.93-5.22 HEMOGLOBIN (BEAKER) (test pbiz=360) 12.0 GM/DL 11.2-15.7 HEMATOCRIT (BEAKER) (test qjab=712) 36.8 % 34.1-44.9 MEAN CORPUSCULAR VOLUME (BEAKER) (test mvkb=530) 96.1 fL 79.4-94.8 MEAN CORPUSCULAR HEMOGLOBIN (BEAKER) (test 31.3 pg 25.6-32.2 lump=255) MEAN CORPUSCULAR HEMOGLOBIN CONC (BEAKER) (test 32.6 GM/DL 32.2-35.5 paxh=029) RED CELL DISTRIBUTION WIDTH (BEAKER) (test 15.9 % 11.7-14.4 jphd=906) PLATELET COUNT (BEAKER) (test bgka=698) 83 K/CU MM 150-450 MEAN PLATELET VOLUME (BEAKER) (test ycbm=420) 11.1 fL 9.4-12.3 NUCLEATED RED BLOOD CELLS (BEAKER) (test 0 /100 WBC 0-0 wpxv=664) NEUTROPHILS RELATIVE PERCENT (BEAKER) (test 54 % xvir=852) LYMPHOCYTES RELATIVE PERCENT (BEAKER) (test 36 % gwfr=569) MONOCYTES RELATIVE PERCENT (BEAKER) (test 8 % eyhv=234) EOSINOPHILS RELATIVE PERCENT (BEAKER) (test 2 % oxfx=439) BASOPHILS RELATIVE PERCENT (BEAKER) (test 1 % mecq=843) NEUTROPHILS ABSOLUTE COUNT (BEAKER) (test 3.01 K/ L 1.56-6.13 erac=533) LYMPHOCYTES ABSOLUTE COUNT (BEAKER) (test 1.98 K/ L 1.18-3.74 eikv=997) MONOCYTES ABSOLUTE COUNT (BEAKER) (test mrst=722) 0.44 K/ L 0.24-0.36 EOSINOPHILS ABSOLUTE COUNT (BEAKER) (test 0.10 K/ L 0.04-0.36 ahro=623) BASOPHILS ABSOLUTE COUNT (BEAKER) (test ndhf=648) 0.04 K/ L 0.01-0.08 IMMATURE GRANULOCYTES-RELATIVE PERCENT (BEAKER) 0 % 0-1 (test zlcl=7294) ALPHA FETOPROTEIN (AFP), TUMOR [id number] 16:14:00 Test Item Value Reference Range Comments ALPHA-FETOPROTEIN (BEAKER) (test ezgk=0174) 5.7 ng/mL <10.0 Effective 07/17/2014: Reference Range ChangeNew: <10.0 Previous: 0.0- [id number] 15:57:00 Test Item Value Reference Range Comments MAGNESIUM (BEAKER) (test xftx=116) 1.9 mg/dL 1.6-2.6 BASIC METABOLIC [id number] 15:57:00 Test Item Value Reference Range Comments SODIUM (BEAKER) (test 139 meq/L 136-145 calh=151) POTASSIUM (BEAKER) (test 4.5 meq/L 3.5-5.1 lrla=026) CHLORIDE (BEAKER) (test 105 meq/L 98-107 igwn=646) CO2 (BEAKER) (test 25 meq/L 22-29 wclj=928) BLOOD UREA NITROGEN 15 mg/dL 7-21 (BEAKER) (test pzkl=162) CREATININE (BEAKER) (test 0.95 mg/dL 0.57-1.25 udha=677) GLUCOSE RANDOM (BEAKER) 86 mg/dL 70-105 (test dbuo=009) CALCIUM (BEAKER) (test 9.4 mg/dL 8.4-10.2 zbpu=975) EGFR (BEAKER) (test 56 mL/min/1.73 sq m ESTIMATED GFR IS NOT wjsx=6207) ACCURATE CREATININE CLEARANCE IN PREDICTING GLOMERULAR FILTRATION RATE. ESTIMATED GFR IS NOT APPLICABLE FOR DIALYSIS PATIENTS. Specimen slightly ictericHEPATIC FUNCTION [id number] 15:57:00 Test Item Value Reference Range Comments TOTAL PROTEIN (BEAKER) (test ccuj=866) 7.6 gm/dL 6.0-8.3 ALBUMIN (BEAKER) (test vmzt=1412) 3.2 g/dL 3.5-5.0 BILIRUBIN TOTAL (BEAKER) (test sefx=271) 1.8 mg/dL 0.2-1.2 BILIRUBIN DIRECT (BEAKER) (test csjr=069) 0.8 mg/dL 0.1-0.5 ALKALINE PHOSPHATASE (BEAKER) (test usym=085) 112 U/L 40-150 AST (SGOT) (BEAKER) (test eaoy=681) 33 U/L 5-34 ALT (SGPT) (BEAKER) (test avfu=711) 17 U/L 6-55 Specimen slightly ictericPROTHROMBIN [id number] 15:56:00 Test Item Value Reference Range Comments PROTIME (BEAKER) (test gtaq=435) 16.7 seconds 11.7-14.7 INR (BEAKER) (test tgwk=347) 1.4 <=5.9 RECOMMENDED COUMADIN/WARFARIN INR THERAPY RANGESSTANDARD DOSE: 2.0 - 3.0 Includes: PROPHYLAXIS forvenous thrombosis, systemic embolization; TREATMENT for venous thrombosis and/or pulmonary embolus.HIGH RISK: Target INR is 2.5-3.5 for patients with mechanical heart valves.CBC W/PLT COUNT & AUTO [id number] 15:56:00 Test Item Value Reference Range Comments WHITE BLOOD CELL COUNT (BEAKER) (test obqf=739) 5.3 K/ L 4.0-10.0 RED BLOOD CELL COUNT (BEAKER) (test kqaw=831) 4.21 M/ L 4.00-5.00 HEMOGLOBIN (BEAKER) (test krmp=839) 14.1 GM/DL 12.0-15.0 HEMATOCRIT (BEAKER) (test zsfx=018) 41.7 % 36.0-45.0 MEAN CORPUSCULAR VOLUME (BEAKER) (test rlqa=989) 99.1 fL 82.0-99.0 MEAN CORPUSCULAR HEMOGLOBIN (BEAKER) (test 33.4 pg 27.0-33.0 bdua=600) MEAN CORPUSCULAR HEMOGLOBIN CONC (BEAKER) (test 33.7 GM/DL 32.0-36.0 qjml=416) RED CELL DISTRIBUTION WIDTH (BEAKER) (test 13.2 % 10.3-14.2 qzpf=489) PLATELET COUNT (BEAKER) (test ukmd=942) 77 K/CU MM 150-430 MEAN PLATELET VOLUME (BEAKER) (test axgl=564) 8.4 fL 6.5-10.5 NUCLEATED RED BLOOD CELLS (BEAKER) (test 0 /100 WBC 0-0 bskc=635) NEUTROPHILS RELATIVE PERCENT (BEAKER) (test 54 % nqge=678) LYMPHOCYTES RELATIVE PERCENT (BEAKER) (test 33 % tssc=889) MONOCYTES RELATIVE PERCENT (BEAKER) (test 10 % xoro=011) EOSINOPHILS RELATIVE PERCENT (BEAKER) (test 3 % wnwe=463) BASOPHILS RELATIVE PERCENT (BEAKER) (test 0 % zpbe=913) NEUTROPHILS ABSOLUTE COUNT (BEAKER) (test 2.86 K/ L 1.80-8.00 xisu=716) LYMPHOCYTES ABSOLUTE COUNT (BEAKER) (test 1.77 K/ L 1.48-4.50 qomd=209) MONOCYTES ABSOLUTE COUNT (BEAKER) (test bigz=960) 0.56 K/ L 0.00-1.30 EOSINOPHILS ABSOLUTE COUNT (BEAKER) (test 0.13 K/ L 0.00-0.50 zmbp=988) BASOPHILS ABSOLUTE COUNT (BEAKER) (test viad=498) 0.02 K/ L 0.00-0.20 0.79BWLA-[id number] 11:05:00 Test Item Value Reference Range Comments POC-CREATININE (BEAKER) 0.9 mg/dL 0.6-1.3 TESTED AT [facility] [address] [facility] (test ptbs=6567) [facility] [address] POC-EGFR (BEAKER) (test 59 mL/min/1.73M2 geia=4659)
--- NOTE | 2019-04-21 10:55 | RAD REPORT ---
EXAM DESCRIPTION: US - Paracentesis Proc Guidance - 04/21/2019 9:51 am CLINICAL HISTORY: Liver disease with ascites FINDINGS: The risks, benefits and alternatives to the procedure were explained to the patient and in formed consent obtained. The skin and subcutaneous tissues were anesthetized with Lidocaine. Under sonographic guidance an 8 F rench catheter was placed into the right lower quadrant. 4 liters of yellow fluid was removed and sen t to the lab. The patient experienced no immediate complication. IMPRESSION: Paracentesis
[2019-04-21 12:20] VITALS: BMI 24.1
[2019-04-21 12:32] VITALS: BP 105/43; TEMP 97.9; O2SAT 99
[2019-04-21 12:48] LABS: Appearance SLT. TURBID (CLEAR); Body Fluid Source PERITONEAL; Body Fluid WBC 142 /mm^3; Color of fluid Yellow (COLORLESS)
== END ==
LOC: DS 08:01
PROVIDERS: ATTEND Internal Medicine Gastroenterology
DX: R18.8 Other ascites (principal); K74.60 Unspecified cirrhosis of liver; K72.90 Hepatic failure, unspecified without coma; K76.0 Fatty (change of) liver, not elsewhere classified; R60.0 Localized edema; K30 Functional dyspepsia; L25.9 Unspecified contact dermatitis, unspecified cause
CPT/HCPCS: 36415; 89050; 96365; 49083; 96366; P9047

== ENCOUNTER → 2019-04-28 | Day surgery (SDC) | payer OTHER ==
--- OUTSIDE RECORDS SUMMARY | 2019-04-28 08:29 | XMS REPORT | Clinical Summary ---
:1930 Author Organization [facility] Address [address] [place] [address] Care Team Providers Name Role Phone Kandy Castillo PA-C Physician Dry Pan Charger Unavailable Ankush Levine Referring Physician Fareed Ballesteros [...] infection 09/06/2014 Overview: SNOMED/[place] [id number] Last Assessment & Plan: Cirrhosis of liver [...] HepatXiao Cesar RN 12/27/2018 Orders Only HepatXiao Cesra RN 11/01/2018 Orders Only HepatPennie Gomez RN [...] hepatitis C infection (HCC) (Primary Dx); Resource, [facility] Screening for cancer; Hepatology Clinic E Encephalopathy; Abnormal breath sounds 07/11/2018 Telephone HepatXiao Cesar RN other 05/31/2018 Telephone Hepatology Xiao Mckeon RN other 05/13/2018 Abstract HepatYvonne Braun MA after 04/27/2018 Family History Medical History Relation Name Comments [...] Taken Blood Pressure 94/60 08/10/2018 2:08 PM NEUROSCIENCE DIRECTOR NA Pulse 92 08/10/2018 2:08 PM NEUROSCIENCE DIRECTOR NA Temperature 36.3 C (97.4 F) 08/10/2018 2:08 PM NEUROSCIENCE DIRECTOR NA Respiratory Rate 16 08/10/2018 2:08 PM NEUROSCIENCE DIRECTOR NA Oxygen Saturation 98% 08/10/2018 2:08 PM NEUROSCIENCE DIRECTOR NA Inhaled Oxygen Concentration - - Weight 58.2 kg (128 lb 6.4 oz) 08/10/2018 2:08 PM NEUROSCIENCE DIRECTOR NA Height 165.1 cm (5' 5") 08/10/2018 2:08 PM NEUROSCIENCE DIRECTOR NA Body Mass Index 21.37 08/10/2018 2:08 PM NEUROSCIENCE DIRECTOR NA Plan of Treatment Date Type Specialty Care Team Description 05/02/2019 Office Visit [place] [address] [id number] Resource, [facility] Hepatology Clinic E Procedures Procedure Name Priority Date/Time Associated Comments Diagnosis CBC W/PLT COUNT & Routine 08/10/2018 3:45 Hepatic cirrhosis Results for this AUTO DIFFERENTIAL PM NEUROSCIENCE DIRECTOR NA due to chronic procedure are in hepatitis C the results infection (HCC) section. Screening for cancer Encephalopathy AMMONIA Routine 08/10/2018 3:45 Hepatic cirrhosis Results for this PM NEUROSCIENCE DIRECTOR NA due to chronic procedure are in hepatitis C the results infection (HCC) section. Screening for cancer Encephalopathy ALPHA FETOPROTEIN Routine 08/10/2018 3:45 Hepatic cirrhosis Results for this (AFP), TUMOR MARKER PM NEUROSCIENCE DIRECTOR NA due to chronic procedure are in hepatitis C the results infection (HCC) section. Screening for cancer Encephalopathy PROTHROMBIN TIME/INR Routine 08/10/2018 3:45 Hepatic cirrhosis Results for this PM NEUROSCIENCE DIRECTOR NA due to chronic procedure are in hepatitis C the results infection (HCC) section. Screening for cancer Encephalopathy CBC W/PLT COUNT & Routine 08/10/2018 3:45 Hepatic cirrhosis Results for this AUTO DIFFERENTIAL PM NEUROSCIENCE DIRECTOR NA due to chronic procedure are in hepatitis C the results infection (HCC) section. Screening for cancer Encephalopathy HEPATIC FUNCTION Routine 08/10/2018 3:45 Hepatic cirrhosis Results for this PANEL PM NEUROSCIENCE DIRECTOR NA due to chronic procedure are in hepatitis C the results infection (HCC) section. Screening for cancer Encephalopathy BASIC METABOLIC PANEL Routine 08/10/2018 3:45 Hepatic cirrhosis Results for this (7) PM NEUROSCIENCE DIRECTOR NA due to chronic procedure are in hepatitis C the results infection (HCC) section. Screening for cancer Encephalopathy after 04/27/2018 Results CBC with platelet count + automated diff (08/10/2018 3:45 PM NEUROSCIENCE DIRECTOR NA) WBC 5.0 3.5 - 10.5 K/L [facility] RBC 3.39 (L) 3.93 - 5.22 M/L [facility] Hemoglobin 10.7 (L) 11.2 - 15.7 GM/DL [facility] Hematocrit 33.1 (L) 34.1 - 44.9 % [facility] MCV 97.6 (H) 79.4 - 94.8 fL [facility] MCH 31.6 25.6 - 32.2 pg [facility] MCHC 32.3 32.2 - 35.5 GM/DL [facility] RDW 15.0 (H) 11.7 - 14.4 % [facility] Platelets 98 (L) 150 - 450 K/CU MM [facility] MPV 10.0 9.4 - 12.3 fL [facility] nRBC 0 0 - 0 /100 WBC [facility] % Neutros 71 % [facility] % Lymphs 14 % [facility] % Monos 12 % [facility] % Eos 2 % [facility] % Baso 1 % [facility] # Neutros 3.51 1.56 - 6.13 K/L [facility] # Lymphs 0.69 (L) 1.18 - 3.74 K/L [facility] # Monos 0.62 (H) 0.24 - 0.36 K/L [facility] # Eos 0.10 0.04 - 0.36 K/L [facility] # Baso 0.04 0.01 - 0.08 K/L [facility] Immature Granulocytes-Relative 0 0 - 1 % [facility] Specimen Blood Performing Organization Address [facility] Centercode Phone Number [address] [address] CENTER Alpha fetoprotein (AFP), tumor marker (08/10/2018 3:45 PM NEUROSCIENCE DIRECTOR NA) Alpha-Fetoprotein 2.9 <10.0 ng/mL [facility] Specimen Blood Performing Organization Address [facility] Centercond Phone Number [address] [address] [phone] CENTER Pro-time/INR (08/10/2018 3:45 PM NEUROSCIENCE DIRECTOR NA) Protime 16.5 (H) 11.7 - 14.7 seconds [facility] INR 1.3 <=5.9 [facility] Specimen Blood Narrative Performed At RECOMMENDED COUMADIN/WARFARIN INR THERAPY [facility] RANGES STANDARD DOSE: 2.0 - 3.0 Includes: PROPHYLAXIS for venous thrombosis, systemic embolization; TREATMENT for venous thrombosis and/or pulmonary embolus. HIGH RISK: Target INR is 2.5-3.5 for patients with mechanical heart valves. Performing Organization Address City/[facility] Centercode Phone Number [address] [address] [phone] CENTER Ammonia (08/10/2018 3:45 PM NEUROSCIENCE DIRECTOR NA) Ammonia 40 18 - 72 mol/L [facility] Specimen Blood Performing Organization Address [facility]/Zipcode Phone Number [facility] [address] [place], [place] [id number] [phone] [place] Hepatic function panel (08/10/2018 3:45 PM NEUROSCIENCE DIRECTOR NA) Protein, Total 9.0 (H) 6.0 - 8.3 gm/dL [facility] Albumin 2.8 (L) 3.5 - 5.0 g/dL [facility] Total Bilirubin 1.2 0.2 - 1.2 mg/dL [facility] Bilirubin, Direct 0.7 (H) 0.1 - 0.5 mg/dL [facility] Alkaline Phosphatase 111 40 - 150 U/L [facility] AST 31 5 - 34 U/L [facility] ALT 12 6 - 55 U/L [facility] Specimen Blood Performing Organization Address City/State/Zipcode Phone Number [facility] [address] [place], [place] [phone] [place] Basic Metabolic Panel (08/10/2018 3:45 PM NEUROSCIENCE DIRECTOR NA) Sodium 133 (L) 136 - 145 meq/L [facility] Potassium 4.0 3.5 - 5.1 meq/L [facility] Chloride 100 98 - 107 meq/L [facility] CO2 27 22 - 29 meq/L [facility] BUN 20 7 - 21 mg/dL [facility] Creatinine 1.07 0.57 - 1.25 mg/dL [facility] Glucose 71 70 - 105 mg/dL [facility] Calcium 9.4 8.4 - 10.2 mg/dL [facility] EGFR 49Comment: ESTIMATED GFR IS mL/min/1.73 sq m [facility] NOT ACCURATE [facility] CLEARANCE IN PREDICTING GLOMERULAR FILTRATION RATE. ESTIMATED GFR IS NOT APPLICABLE FOR DIALYSIS PATIENTS. Specimen Blood Performing Organization Address City/State/Zipcode Phone Number [facility] [address] [place] [address] [phone] CENTER after 04/27/2018 Insurance Payer Benefit Plan / Group Subscriber ID Type Phone Address MEDICARE MEDICARE A B xxxxxxxxxxx Medicare MCR GENERIC MEDICARE xxxxxxxxx [employer] SUPPLEMENT/INDIVIDUAL SUPPLEMENT
--- OUTSIDE RECORDS SUMMARY | 2019-04-28 08:33 | XMS REPORT | Continuity of Care Document ---
:1930 Author Organization [employer] Care Team Providers Name Role Phone [employer] Unavailable Unavailable Problems Problem Status Onset Classification [...] Active Problem 04/24/2017 [facility]. Umbilical hernia5 Active Problem 01/17/2018 Data migrated Medical 014 from [facility] [place] 01/28/15. UMB HERNIA WITHOUT Active Condition 04/27/2014 Medical MENTION 014 Group OBSTRUCTION/GANGRE NE LARGE INTESTINE Active Condition 04/27/2014 Medical CANCER 012 Group SCREENING FOR Active Condition 04/27/2014 Medical COLON CANCER 012 Group Carcinoma of Active Problem 01/17/2018 Data migrated Medical ascending colon1 011 from [facility] [place] 01/28/15. CARCINOMA, Active Condition 04/27/2014 Medical ASCENDING COLON 011 Group Cancer of colon Active Problem 01/17/2018 Medical 011 Group,[facility] CH - Chronic Active Problem 04/24/2017 hepatitis [place] DVT (Confirmed) Resolved Problem 04/24/2017 [facility] Bronchitis [facility] Problem 01/17/2018 [...] Unspecified Active Diagnosis 08/26/2015 2.16.840.1. infectious disease [id number] Bacterial Active Diagnosis 08/26/2015 2.16.840.1. infection [id number] Other Active Diagnosis 08/26/2015 2.16.840.1. encephalopathy [id number] Esophageal varices Active Diagnosis 08/26/2015 2.16.840.1. [id number] Hepatic cirrhosis Active Diagnosis 08/26/2015 2.16.840.1. [id number] UTI Active Problem 08/26/2015 2.16.840.1. [id number] MALIGNANT MIGEL Active COLON NOS [place] 153.9 Active [place] HEPATOPULMONARY Active SYNDROME [place] HX OF COLONIC Active MALIGNANCY [place] URIN TRACT Active INFECTION NOS [place] INCISIONAL HERNIA Active [place] MALIGNANT NEOPLASM Active MH OF COLON, [place] UNSPECIFIED PERSONAL HISTORY Active MH OF MALIGNANT [place] NEOPLASM O CALCULUS OF KIDNEY Active [facility] Medications Medication Details Route Status Patient Ordering Order Source Instructions Provider Date Acetaminophen 2 tab, PO, Active 300 MG / Q6H, PRN 2016 [facility] Codeine Pain, X 7 Phosphate 30 MG day, # 56 Oral Tablet tab, 0 [Tylenol with Refill(s) Codeine #3] esmolol (ANES) Route: IV, Inactive Drug form: 2016 [facility] INJ, ONCE, Stop date: 08/03/17 13:22:00 [facility]ERY ROOM NURSE ondansetron Route: IV, Inactive (ANES) Drug form: 2016 [facility] INJ, ONCE, Stop date: 08/03/17 13:07:00 RECOVERY ROOM NURSE propofol (ANES) Route: IV, Inactive Drug form: 2016 [facility] INJ, ONCE, Stop date: 08/03/17 13:07:00 RECOVERY ROOM NURSE lidocaine Route: IV, Inactive (ANES) Drug form: 2016 [facility] INJ, ONCE, Stop date: 08/03/17 13:07:00 RECOVERY ROOM NURSE ciprofloxacin Route: IV, Inactive (ANES) Drug form: 2016 [facility] INJ, ONCE, Stop date: 08/03/17 13:07:00 RECOVERY ROOM NURSE dexamethasone Route: IV, Inactive (ANES) Drug form: 2016 [facility] INJ, ONCE, Stop date: 08/03/17 13:07:00 RECOVERY ROOM NURSE fentaNYL (ANES) Route: IV, Inactive Drug form: 2016 [facility] INJ, ONCE, Stop date: 08/03/17 13:02:00 RECOVERY ROOM NURSE Calcium 1,000 mL, Inactive Chloride 0.0014 Rate: 25 2016 [facility] MEQ/ML / ml/hr, Infuse Potassium over: 40 hr, Chloride 0.004 Route: IV, MEQ/ML / Sodium Dosing Weight Chloride 0.103 74.091 kg, MEQ/ML / Sodium Total Volume: Lactate 0.028 1,000, Start MEQ/ML date: Injectable 08/03/17 Solution 12:12:00 RECOVERY ROOM NURSE, Duration: 30 day, Stop date: 09/02/17 12:11:00 RECOVERY ROOM NURSE, 1.86, m2 vancomycin Route: IV, Inactive (ANES) 1000 mg Drug form: 2016 [facility] INJ, Start date: 08/03/17 12:10:00 RECOVERY ROOM NURSE, Stop date: 08/03/17 13:10:00 RECOVERY ROOM NURSE Lactated Route: IV, Inactive Ringers Total Volume: 2016 [facility] Injection IV 1,000, Start (ANES) 1000 mL date: 08/03/17 12:10:00 RECOVERY ROOM NURSE, Stop date: 08/03/17 13:10:00 RECOVERY ROOM NURSE Ceftriaxone 1 gm, Route: No Longer IVPB, Q12H, Active 2016 [facility] Dosing Weight 74.091, kg, Start date: 08/02/17 21:00:00 RECOVERY ROOM NURSE, Duration: 24 hr, Stop date: 08/03/17 9:00:00 RECOVERY ROOM NURSE, ABX Indication: Urinary Tract Infection phenylephrine Route: IV, Inactive (ANES) Drug form: 2016 [facility] INJ, ONCE, Stop date: 04/21/17 10:51:00 CDT ondansetron Route: IV, Inactive (ANES) Drug form: 2016 [facility] INJ, ONCE, Stop date: 04/21/17 10:41:00 CDT dexamethasone Route: IV, Inactive (ANES) Drug form: 2016 [facility] INJ, ONCE, Stop date: 04/21/17 10:41:00 CDT ceFAZolin Route: IV, Inactive (ANES) Drug form: 2016 [facility] INJ, ONCE, Stop date: 04/21/17 10:41:00 CDT lidocaine Route: IV, Inactive (ANES) Drug form: 2016 [facility] INJ, ONCE, Stop date: 04/21/17 10:41:00 CDT propofol (ANES) Route: IV, Inactive Drug form: 2016 [facility] INJ, ONCE, Stop date: 04/21/17 10:41:00 CDT fentaNYL (ANES) Route: IV, Inactive Drug form: 2016 [facility] INJ, ONCE, Stop date: 04/21/17 10:41:00 CDT acetaminophen Route: IV, Inactive (ANES) (ANES) Drug form: 2016 [facility] INJ, Start date: 04/21/17 10:35:00 CDT, Stop date: 04/21/17 11:35:00 CDT sodium chloride Route: IV, Inactive 08/23/ MH 0.9% 500 ml INJ Total Volume: 2016 [facility] (ANES) 500, Start date: 04/21/17 10:08:00 CDT, Stop date: 04/21/17 11:08:00 CDT Calcium 1,000 mL, Inactive Chloride 0.0014 Rate: 25 2016 [facility] MEQ/ML / ml/hr, Infuse Potassium over: 40 hr, Chloride 0.004 Route: IV, MEQ/ML / Sodium Dosing Weight Chloride 0.103 74.545 kg, MEQ/ML / Sodium Total Volume: Lactate 0.028 1,000, Start MEQ/ML date: Injectable 04/21/17 Solution 9:53:00 CDT, Duration: 30 day, Stop date: 05/21/17 9:52:00 CDT Ocuvite 1 tab, PO, Active Daily, 0 2016 [facility] Refill(s) Furosemide 40 40 mg=1 tab, Active MG Oral Tablet PO, Daily, 0 2016 [facility] Refill(s) Vitamin D3 2000 2,000 Active intl units oral IntlUnit=1 2016 [facility] tablet tab, PO, Daily, 0 Refill(s) Albuterol 0.833 3 mL, Route: Inactive MG/ML / NEB, Drug 2016 [facility] Ipratropium Form: SOLN, [place] 0.167 Dosing Weight MG/ML Inhalant 76.364, kg, Solution ONCE, STAT, Start date: 02/23/17 9:22:00 CDT, Stop date: 02/23/17 9:22:00 CDTNotes: (Same as: Mirza) Sodium Chloride 500 mL, Rate: Inactive 0.154 MEQ/ML 25 ml/hr, 2016 [facility] Injectable Infuse over: Solution 20 hr, Route: IV, Dosing Weight 76.364 kg, Total Volume: 500, Start date: 02/23/17 9:22:00 CDT, Duration: 1 day, Stop date: 02/24/17 9:21:00 CDT Lasix 20 mg, 1 tab, No Longer Route: PO, Active 2014 [facility] Drug form: TAB, Daily, Dosing Weight 73.295, kg, Start date: 08/08/15 9:00:00, Duration: 30 day, Stop date: 09/06/15 9:00:00Notes: (Same as: Lasix) May cause GI upset. Give with food or milk. Spironolactone 12.5 mg, 0.5 No Longer tab, Route: Active 2014 [facility] PO, Drug form: TAB, Daily, Dosing Weight [...] 20 mL, Route: Inactive IVP, Start 2014 [facility] date: 08/07/15 12:19:00, Duration: 30 day, Stop date: 09/06/15 12:18:00, PRN Line FlushNotes: preservative free. sodium chloride 10 mL, Route: Inactive IVP, Start 2014 [facility] date: 08/07/15 12:18:00, Duration: 30 day, Stop [...] Inactive 100 MG Oral cap, Route: 2014 [facility] Capsule PO, Drug [Colace] form: CAP, Daily, Dosing Weight 73.295, kg, PRN Constipation, Start date: 08/07/15 11:09:00, Duration: 30 day, Stop date: 09/06/15 11:08:00Notes : (Same as: Colace) (Do Not Crush) Ibuprofen 400 mg, 1 Inactive tab, Route: 2014 [facility] PO, Drug form: TAB, ONCE, Dosing Weight 73.295, kg, PRN Headache 1-5, Start date: 08/06/15 21:10:00, Stop date: 08/06/15 21:10:00Notes : (Same as: Motrin) "Do Not Crush" Give with food. Lasix PO, Daily, 0 Active Refill(s) 2014 [facility] Rocephin 1 gm, Route: No Longer IVPB, Active 2014 [facility] [id number], Dosing Weight 73.295, kg, Start date: 08/06/15 9:00:00, Duration: 30 day, Stop date: 09/04/15 9:00:00Notes: (Same As: Rocephin). Use with 100 mL NS and infuse over 30 min MEDICATION WASTE Product Size: 1000 mg Product Wasted: ___ mg Lactulose 10 gm, 15 ml, Inactive Route: PO, 2014 [facility] Drug Form: SYRP, Dosing Weight 73.295, kg, ONCE, Start date: 08/06/15 3:49:00, Stop date: 08/06/15 3:49:00Notes: (Same as:Chronulac) Ondansetron 4 mg, 2 mL, No Longer Route: IVP, Active 2014 [facility] Drug form: INJ, Q6H, Dosing Weight 73.636, kg, PRN Nausea & Vomiting, Start date: 08/06/15 3:29:00, Duration: 30 day, Stop date: 09/05/15 3:28:00Notes: (Same as: Zofran) MEDICATION WASTE Product Size: 4 mg Product Wasted: ___ mg Acetaminophen 325 mg, 1 No Longer tab, Route: Active 2014 [facility] PO, Drug form: TAB, Q4H, Dosing Weight 73.636, kg, PRN Pain Score 4-6, Start date: 08/06/15 3:29:00, Duration: 30 day, Stop date: 09/05/15 3:28:00Notes: Do not exceed 4 gm/day. (Same as: Tylenol) Morphine 2 mg, Route: No Longer IVP, Q4H, Active 2014 [facility] Dosing Weight 73.636, kg, PRN Pain Score 7-10, Start date: 08/06/15 3:29:00, Duration: 30 day, Stop date: 09/05/15 3:28:00 Aspirin 325 mg, 1 No Longer tab, Route: Active 2014 [facility] PO, Drug form: ECTAB, Q24H, Dosing Weight 73.636, kg, Start date: 08/06/15 3:00:00, Duration: 30 day, Stop date: 09/04/15 3:00:00Notes: (Do Not Crush) Do not crush or chew. Saline Flush 10 mL, Route: No Longer 0.9% IVP, Drug Active 2014 [facility] Form: INJ, Dosing Weight 75.455, kg, PRN, PRN Line Flush, Start date: 08/05/15 19:05:00, Duration: 30 day, Stop date: 09/04/15 19:04:00Notes : (Same as: BD Posiflush) Docusate Sodium 100 mg=1 cap, Active 100 MG Oral PO, Daily, as 2013 [facility] Capsule needed for [Colace] constipation, # 20 cap, 0 Refill(s) gabapentin 300 300 mg=1 cap, Active MG Oral Capsule PO, BID, # 90 2013 cap, 0 Refill(s) tramadol 50 mg=1 tab, Active hydrochloride PO, Q6H, 2013 50 MG Oral Pain, # 40 Tablet tab, 0 Refill(s) Ibuprofen 400 400 mg, 1 No Longer MG Oral Tablet tab, Route: Active 2013 [facility] PO, Drug form: TAB, Q6H, Dosing Weight 64.545, kg, PRN as needed for pain, Start date: 04/19/14 14:09:00, Duration: 30 day, Stop date: 05/19/14 14:08:00Notes : (Same as: Motrin) "Do Not Crush" Give with food. Ibuprofen 600 mg, Inactive Route: PO, 2013 [facility] Q6H, Dosing Weight 64.545, kg, PRN Severe Pain, Start date: 04/19/14 14:09:00, Duration: 30 day, Stop date: 05/19/14 14:08:00 hydromorphone 0.5 mg, 0.5 No Longer mL, Route: Active 2013 [facility] IV, Drug form: INJ, Q2H, PRN Pain, Start date: 04/18/14 17:55:00, Duration: 30 day, Stop date: 05/18/14 17:54:00 Ibuprofen 600 mg, Inactive Route: PO, 2013 [facility] Q6H, Dosing Weight 64.545, kg, PRN as needed for pain, Start date: 04/18/14 17:02:00, Duration: 30 day, Stop date: 05/18/14 17:01:00 Docusate Sodium 100 mg, 1 No Longer 100 MG Oral cap, Route: Active 2013 [facility] Capsule PO, Drug form: CAP, BID, Dosing Weight 64.545, kg, Start date: 04/18/14 17:00:00, Duration: 30 day, Stop date: 05/18/14 9:00:00Notes: (Same as: Colace) (Do Not Crush) Ofirmev 1,000 mg, 100 Inactive mL, Route: 2013 [facility] IV, Drug form: INJ, Q6H, Dosing Weight 65.909, kg, for > or=50 kg, Start date: 04/18/14 12:00:00, Duration: 1 day, Stop date: 04/19/14 6:00:00Notes: Infuse over 15 minutes Do not exceed 4gm/day of acetaminophen Saline Flush 5 ml, Route: No Longer 0.9% IVP, Drug Active 2013 [facility] Form: INJ, Dosing Weight 64.545, kg, PRN, PRN Line Flush, Start date: 04/18/14 10:16:00, Duration: 30 day, Stop date: 05/18/14 10:15:00Notes : Same as: BD Posiflush Sterile Sodium Chloride 1,000 mL, No Longer 0.154 MEQ/ML Rate: 125 Active 2013 [facility] Injectable ml/hr, Infuse Solution over: 8 hr, Route: IV, Dosing Weight 64.545 kg, Total Volume: 1,000, Start date: 04/18/14 10:16:00, Duration: 30 day, Stop date: 05/18/14 10:15:00 Ondansetron 4 mg, 2 mL, No Longer Route: IVP, Active 2013 [facility] Drug form: INJ, Q6H, Dosing Weight 64.545, kg, PRN Nausea & Vomiting, Start date: 04/18/14 10:16:00, Duration: 30 day, Stop date: 05/18/14 10:15:00Notes : (Same as: Zofran) Acetaminophen 1 tab, Route: Inactive 325 MG / PO, Drug 2013 [facility] Hydrocodone Form: TAB, Bitartrate 5 MG Dosing Weight Oral Tablet 65.909, kg, Q4H, PRN Pain Score 1-3, Start date: 04/18/14 10:16:00, Duration: 30 day, Stop date: 05/18/14 10:15:00Notes : (Same as: [place] 325/5) Do not exceed 4gm/day of acetaminophen . Cefoxitin 2 gm, Route: No Longer IVPB, ONCALL, Active 2013 [facility] Dosing Weight 64.545, kg, Start date: 04/13/14 13:00:00, Duration: 30 day, Stop date: 05/13/14 12:59:00Notes : (Same As: Mefoxin) Naloxone 0.1 mg, Inactive Route: IVP, 2013 Q2MIN, Dosing Weight 65.909, kg, PRN Narcotic Reversal, Start date: 03/13/14 11:16:00, Duration: 4 doses or times, Stop date: Limited # of times Flumazenil 0.2 mg, Inactive Route: IVP, 2013 [facility] PRN, Dosing Weight 65.909, kg, PRN Other -See Comment, Start date: 03/13/14 11:16:00, Duration: 1 doses or times, Stop date: Limited # of times Sodium Chloride 1,000 mL, Inactive 0.154 MEQ/ML Rate: 25 2013 [facility] Injectable ml/hr, Infuse Solution over: 40 hr, Route: IV, Dosing Weight 65.909 kg, Total Volume: 1,000, Start date: 03/13/14 9:59:00, Duration: 30 day, Stop date: 04/12/14 9:58:00 Coconut oil Coconut oil, Active Refill(s) 0 2013 ibandronic acid 150 mg=1 tab, Active 150 MG Oral PO, qMonth, # 2013 [facility] Tablet [Boniva] 1 tab, 0 Refill(s) HM VITAMIN D3 Active Medical 2000 UNIT CAPS 2013 Group ALDACTONE 25 MG one by mouth Active Medical TABS once daily 2013 Group GABAPENTIN 300 one by mouth Active Medical MG CAPS twice daily 2013 Group BONIVA 150 MG one tablet Active Medical TABS once per 2013 Group month B-12 2500 MCG one by mouth Active 02/02[facility] Medical TABS once daily 2013 Group MOTRIN IB 200 prn Active 02/02[facility] Medical MG TABS 2013 Group COCONUT OIL OIL two teaspoons Active Medical daily 2013 Group ALDACTONE 25 MG one by mouth Active 02/02[facility] Medical TABS once daily 2013 Group GABAPENTIN 300 one by mouth Active 02/02[facility] Medical MG CAPS twice daily 2013 Group Propranolol HCl 1 tablet Orally Active 20 mg Orally Jus 2.16.840.1 daily .483072.4. 391 68 Gabapentin 1 capsule Orally Active 300 MG Orally Jus 2.16.840.1 twice a day .617951.4. (bid) 391 68 B-12 Unknown Sublingual Active 2500 MCG Jus 2.16.840.1 Sublingual .972003.4. 391 68 Ocuvite 1 tablet Orally Active Orally daily Jus 2.16.840.1 .089877.4. 391 68 Lasix 1 tablet Orally Active 40 MG Orally Jus 2.16.840.1 Once a day .233010.4. 68 Ciprofloxacin 5 ml Orally Active 500 MG/5ML Jus 2.16.840.1 (10%) Orally .554990.4. Twice a day Spironolactone 1 tablet Orally Active 25 MG Orally Jus 2.16.840.1 daily .862277.4. Caltrate 600+D 1 tablet with Orally Active 600-400 [facility] 2.16.840.1 food MG-UNIT .343673.4. Orally Once a day Allergies, Adverse Reactions, Alerts Substance Category Reaction Severity Reaction Status Date Comments Source type Reported MORPHINE Drug MORPHINE allergy 2 Medical Group morphine<s Assertion Drug Active Data up>1</sup> allergy 2 migrated Medical from [facility] on 12/27/14. Originally documented as MORPHINE. Hallucinatio ns Adhesive Adverse rash Adverse Active 2.16.840. Tape Reaction Reaction 5 1.119263. 4.391.. 27897 Morphine Adverse Info Not Adverse Active 2.16.840. Sulfate Reaction Available Reaction 5 1.494461. 4.391.. 83354 morphine Assertion Drug Active allergy [place] Tape [...] 36.1 20.0 - 12 MH 40.0 /2016 [facility] HEMATOLOGY Eosinophils 1.2 0.0 - 4.0 08/03 [facility] HEMATOLOGY Monocytes 5.4 2.0 - 12.0 08/03 [facility] HEMATOLOGY Basophils 0.6 0.0 - 1.0 08/03 [facility] HEMATOLOGY Segs 56.7 45.0 - 12 MH 75.0 /2016 [facility] HEMATOLOGY Monocytes # 0.2 0.0 - 0.8 08/03 [facility] HEMATOLOGY Lymphocytes 1.0 1.0 - 5.5 08/03 MH # /2017 [facility] HEMATOLOGY Segs-Bands # 1.6 1.5 - 8.1 08/03 [facility] HEMATOLOGY MPV 9.2 7.4 - 10.4 08/03 [facility] HEMATOLOGY RDW 16.5 11.5 - 12 MH 14.5 [facility] HEMATOLOGY Platelet 62 133 - 450 12 [facility] HEMATOLOGY Hct 39.3 36.0 - 12 MH 48.0 /2017 [facility] HEMATOLOGY Hgb 13.2 12.0 - 12 MH 16.0 /2016 [facility] HEMATOLOGY RBC 4.14 4.20 - 12 MH 5.40 /2016 [facility] HEMATOLOGY MCH 31.9 27.0 - 12/ MH 31.0 /2016 [facility] HEMATOLOGY MCV 95.1 80.0 - 12 MH 98.0 /2016 [facility] HEMATOLOGY MCHC 33.6 32.0 - 12 MH 36.0 /2017 [facility] HEMATOLOGY WBC 2.8 3.7 - 10.4 08/03 [place] CHEM PANEL eGFR 59 08/02 [facility] Comment: The [facility] eGFR is calculated using the CKD-EPI formula. [...] Direct 0.3 0.0 - 0.3 12/ /2016 [facility] CHEM PANEL Bili 1.5 0.0 - 1.0 12/ MH Indirect /2016 [facility] CHEM PANEL A/G Ratio 0.5 0.7 - 1.6 08/02 /2016 [facility] CHEM PANEL Globulin 4.6 2.7 - 4.2 12/ /2016 [facility] HEMATOLOGY RBC 3.92 4.20 - 12 MH 5.40 /2016 [facility] HEMATOLOGY WBC 5.1 3.7 - 10.4 12 /2016 [facility] HEMATOLOGY Hgb 12.3 12.0 - 12 MH 16.0 /2016 [facility] HEMATOLOGY RDW 15.9 11.5 - 12 MH 14.5 /2016 [facility] HEMATOLOGY MCHC 33.4 32.0 - 12 MH 36.0 /2016 [facility] HEMATOLOGY MCH 31.3 27.0 - 12/ MH 31.0 /2016 [facility] HEMATOLOGY Hct 36.7 36.0 - 08/02 MH 48.0 /2016 [facility] HEMATOLOGY MCV 93.6 80.0 - 08/02 MH 98.0 /2016 [facility] HEMATOLOGY MPV 8.9 7.4 - 10.4 12 /2016 [facility] HEMATOLOGY Platelet 82 133 - 450 12 /2016 [facility] HEMATOLOGY INR 1.49 0.85 - 08/02 MH 1.17 /2016 [facility] HEMATOLOGY PT 18.1 12.0 - 08/02 MH 14.7 /2016 [facility] HEMATOLOGY PTT 33.0 22.9 - 12/ MH 35.8 /2017 [facility] HEMATOLOGY Segs-Bands # 2.6 1.5 - 8.1 [...] ELECTROLYT eGFR 46 04/13 Result Comment: The [facility] eGFR is calculated using the CKD-EPI formula. [...] 0.50 - 04/13 ES Lvl 1.40 /2016 [facility] ELECTROLYT BUN 13 7 - 22 04/13 ES /2016 [facility] ELECTROLYT Potassium 4.3 3.5 - 5.1 04/13 ES Lvl /2016 [place] ELECTROLYT Sodium Lvl 142 135 - 145 04/13 ES [facility] ELECTROLYT Chloride Lvl 107 95 - 109 04/13 ES /2016 [facility] ELECTROLYT CO2 25 24 - 32 04/13 ES /2016 [facility] ELECTROLYT Calcium Lvl 9.3 8.5 - 10.5 04/13 ES [facility] ELECTROLYT Glucose Lvl 101 70 - 99 04/13 ES [facility] HEMATOLOGY Eosinophils 0.2 0.0 - 0.5 04/13 MH # /2016 [facility] HEMATOLOGY Basophils # 0.1 0.0 - 0.2 04/13 [facility] HEMATOLOGY Monocytes # 0.6 0.0 - 0.8 04/13 [facility] HEMATOLOGY Lymphocytes 1.8 1.0 - 5.5 04/13 MH # /2016 [facility] HEMATOLOGY Segs-Bands # 3.0 1.5 - 8.1 04/13 [facility] HEMATOLOGY Basophils 0.9 0.0 - 1.0 04/13 [facility] HEMATOLOGY Monocytes 10.4 2.0 - 12.0 04/13 [facility] HEMATOLOGY Eosinophils 3.0 0.0 - 4.0 04/13 [facility] HEMATOLOGY Segs 53.7 45.0 - 04/13 MH 75.0 /2017 [facility] HEMATOLOGY Lymphocytes 32.0 20.0 - 04/13 MH 40.0 /2017 [facility] HEMATOLOGY INR 1.27 0.85 - 04/13 MH 1.17 /2016 [facility] HEMATOLOGY PT 16.2 12.0 - 04/13 MH 14.7 /2016 [facility] HEMATOLOGY MPV 8.9 7.4 - 10.4 04/13 [facility] HEMATOLOGY RDW 15.4 11.5 - 04/13 MH 14.5 [facility] HEMATOLOGY Platelet 79 133 - 450 04/13 [facility] HEMATOLOGY MCH 32.2 27.0 - 04/13 MH 31.0 /[address] [facility] MCHC 33.3 32.0 - 04/13 MH 36.0 /[address] [facility] RBC 4.00 4.20 - 04/13 MH 5.40 /2016 [facility] HEMATOLOGY MCV 96.5 80.0 - 04/13 MH 98.0 /2017 [facility] HEMATOLOGY Hct 38.6 36.0 - 04/13 MH 48.0 /[address] [facility] Hgb 12.9 12.0 - 04/[address] [facility] WBC 5.6 3.7 - 10.4 04/13 [facility] HEMATOLOGY PTT 28.2 22.9 - 04/13 MH 35.8 /2017 [facility] ELECTROLYT AGAP 7.1 10.0 - 02/16 ES 20.0 [facility] ELECTROLYT eGFR 54 02/16 Result Comment: The [facility] eGFR is calculated using the CKD-EPI formula. [...] Lvl 8.8 8.5 - 10.5 02/16 MH [facility] ELECTROLYT Chloride Lvl 107 95 - 109 02/16 ES [facility] ELECTROLYT CO2 30 24 - 32 02/16 [facility] ELECTROLYT Potassium 4.1 3.5 - 5.1 02/16 ES Lvl /2016 [facility] ELECTROLYT Glucose Lvl 75 70 - 99 02/16 ES [facility] ELECTROLYT BUN 11 7 - 22 02/16 [facility] ELECTROLYT Creatinine 0.95 0.50 - 02/16 ES Lvl 1.40 [facility] ELECTROLYT Sodium Lvl 140 135 - 145 02/16 [facility] HEMATOLOGY Hgb 13.0 12.0 - 02/16 16.0 [facility] HEMATOLOGY Hct 38.8 36.0 - 02/16 48.0 [facility] TUMOR CEA 11.8 0.0 - 3.0 02/16 MH [facility] CHEM PANEL A/G Ratio 0.6 0.7 - 1.6 08/07 [facility] CHEM PANEL AGAP 11.9 10.0 - 08/07 MH 20.0 [facility] CHEM PANEL Globulin 4.1 2.0 - 4.0 08/07 [facility] CHEM PANEL B/C Ratio 15 6 - 25 08/07 [facility] CHEM PANEL eGFR 61 08/07 [facility] Comment: The [facility] eGFR is calculated using the CKD-EPI formula. [...] Magnesium 1.9 1.8 - 2.4 08/07 Lvl [facility] HEMATOLOGY MPV 8.8 7.4 - 10.4 08/07 [facility] HEMATOLOGY Platelet 54 133 - 450 08/07 [facility] HEMATOLOGY MCHC 33.1 32.0 - 12 MH 36.0 /2014 [facility] HEMATOLOGY RDW 14.7 11.5 - 08/07 MH 14.5 /2014 [facility] HEMATOLOGY MCV 97.0 80.0 - 08/07 MH 98.0 /2014 [facility] HEMATOLOGY MCH 32.1 27.0 - 12 MH 31.0 /2014 [facility] HEMATOLOGY RBC 3.54 4.20 - 12 MH 5.40 /2014 [facility] HEMATOLOGY WBC 3.6 3.7 - 10.4 08/07 [facility] HEMATOLOGY Hct 34.3 36.0 - 08/07 MH 48.0 [facility] HEMATOLOGY Hgb 11.4 12.0 - 12 MH 16.0 /2014 [facility] HEMATOLOGY Monocytes # 0.2 0.0 - 0.8 08/07 [facility] HEMATOLOGY Eosinophils 1.3 0.0 - 4.0 08/07 [facility] HEMATOLOGY Monocytes 7.0 2.0 - 12.0 08/07 [facility] HEMATOLOGY Lymphocytes 1.1 1.0 - 5.5 / MH # /2015 [facility] Basophils 0.6 0.0 - 1.0 08/07 [facility] HEMATOLOGY Segs-Bands # 2.2 1.5 - 8.1 08/07 [facility] HEMATOLOGY Segs 61.3 45.0 - 08/07 MH 75.0 /2014 [facility] HEMATOLOGY Lymphocytes 29.8 20.0 - 08/07 MH 40.0 /2014 [facility] URINE AND UA Nitrite Negative Negative 08/06 [facility] (08/06/15 3:01 PM) /2014 [facility] URINE AND UA Leuk Est Large Negative 08/06 [facility] *ABN* /2014 [facility] (08/06/15 3:01 PM) URINE AND UA Blood Moderate Negative 08/06 STO[facility] *ABN* /2014 [facility] (08/06/15 3:01 PM) URINE AND UA Bili Negative Negative 08/06 STOOL *NA* /2014 [facility] (08/06/15 3:01 PM) URINE AND UA >=8.0 0.1 - 1.0 08/06 STOOL Urobilinogen * [facility] (08/06/15 3:01 PM) URINE AND UA Color Yellow Yellow 08/06 STOOL *NA* /2014 (08/06/15 3:01 PM) URINE AND UA Turbidity Cloudy Clear 08/06 STOOL *ABN* /2014 [facility] (08/06/15 3:01 PM) URINE AND UA Glucose Negative Negative 08/06 [facility] (08/06/15 3:01 PM) /2014 [facility] URINE AND UA Ketones Negative Negative 08/06 [facility] *NA* /2014 [facility] (08/06/15 3:01 PM) URINE AND UA Spec Grav 1.015 <=1.030 08/06 [facility] URINE AND UA pH 6.5 5.0 - 8.0 08/06 [facility] URINE AND UA Protein 30 mg/dL Negative 08/06 [facility] mg/dL /2014 [facility] URINE AND UA Sq Epi Few /LPF Few /LPF 08/06 [facility] URINE AND UA [place] Yeast Many /HPF None Seen 08/06 STOOL [...] Est Moderate Negative 08/06 STOOL *ABN* /2014 [facility] (08/05/15 10:40 PM) URINE AND UA 1.0 [...] Color Yellow Yellow 08/06 [facility] *NA* /2014 [facility] (08/05/15 10:40 PM) URINE AND UA Protein Negative Negative 08/06 [facility] (08/05/15 10:40 PM) [facility] URINE AND UA pH 6.0 5.0 - 8.0 08/06 [facility] STOOL /2014 [facility] CARDIAC CK MB 5.3 0.5 - 3.6 08/06 ENZYMES /2014 [facility] CARDIAC Total CK 116 12 - 191 08/06 ENZYMES [facility] CARDIAC BNP 45 <=100 08/06 ENZYMES pg/mL /2014 [facility] CARDIAC Troponin-I <0.02 0.00 - 12 ENZYMES 0.40 /2014 [facility] CARDIAC CK MB Index 4.6 0.0 - 2.5 08/06 ENZYMES [facility] CHEM PANEL Ammonia 47.0 <=45.0 08/06 uMol/L /2014 [facility] CHEM PANEL Alk Phos 118 39 - 136 08/06 [facility] CHEM PANEL Total 7.4 6.4 - 8.4 08/06 Protein /2014 [facility] CHEM PANEL Calcium Lvl 8.5 8.5 - 10.5 08/06 [facility] CHEM PANEL eGFR 67 08/06 [facility] Comment: The [facility] eGFR is calculated using the CKD-EPI formula. [...] Bili Total 1.0 0.2 - 1.3 08/06 [facility] CHEM PANEL A/G Ratio 0.6 0.7 - 1.6 08/06 [facility] CHEM PANEL ALT 21 0 - 65 08/06 [facility] CHEM PANEL Albumin Lvl 2.7 3.5 - 5.0 08/06 [facility] CHEM PANEL AST 27 0 - 37 08/06 [facility] CHEM PANEL AGAP 11.5 10.0 - 08/06 MH 20.0 /2014 [facility] CHEM PANEL Globulin 4.7 2.0 - 4.0 12/ /2014 [facility] CHEM PANEL B/C Ratio 14 6 - 25 12 [facility] CHEM PANEL BUN 11 7 - 22 08/06 [facility] CHEM PANEL Chloride Lvl 106 95 - 109 12 [facility] CHEM PANEL Creatinine 0.81 0.50 - 12 Lvl 1.40 /2014 [facility] CHEM PANEL Potassium 3.5 3.5 - 5.1 12 Lvl /2014 [facility] CHEM PANEL Sodium Lvl 140 135 - 145 12 [facility] CHEM PANEL CO2 26 24 - 32 12 [facility] CHEM PANEL Glucose Lvl 109 70 - 99 12 [facility] HEMATOLOGY MPV 9.1 7.4 - 10.4 08/06 [facility] HEMATOLOGY RDW 15.4 11.5 - 12 14.5 /2014 [facility] HEMATOLOGY Platelet 70 133 - 450 12 /2014 [facility] HEMATOLOGY MCHC 33.1 32.0 - 12 36.0 /2014 [facility] HEMATOLOGY MCH 32.1 27.0 - 12 31.0 /2014 [facility] HEMATOLOGY MCV 97.2 80.0 - 12/ 98.0 /2014 [facility] HEMATOLOGY Hct 36.5 36.0 - 12 48.0 /2014 [facility] HEMATOLOGY Hgb 12.1 12.0 - 12 16.0 /2014 [facility] HEMATOLOGY RBC 3.76 4.20 - 12 MH 5.40 /2014 [facility] HEMATOLOGY WBC 6.0 3.7 - 10.4 08/06 /2014 [facility] HEMATOLOGY Monocytes # 0.5 0.0 - 0.8 08/06 /2014 [facility] HEMATOLOGY Eosinophils 0.1 0.0 - 0.5 12/08 MH # /2015 [facility] HEMATOLOGY Lymphocytes 1.8 1.0 - 5.5 12/08 MH # /2015 [facility] HEMATOLOGY Basophils 0.6 0.0 - 1.0 08/06 /2014 [facility] HEMATOLOGY Segs-Bands # 3.6 1.5 - 8.1 08/06 /2014 [facility] HEMATOLOGY Monocytes 8.4 2.0 - 12.0 12/ /2014 [facility] HEMATOLOGY Eosinophils 2.0 0.0 - 4.0 / /2014 [facility] HEMATOLOGY Lymphocytes 29.3 20.0 - 12 MH 40.0 /2014 [facility] HEMATOLOGY Segs 59.7 45.0 - 12 MH [...] PANEL CO2 26 24 - 32 08/05 [facility] CHEM PANEL Glucose Lvl 93 70 - 99 08/05 [facility] CHEM PANEL Sodium Lvl 140 135 - 145 08/05 [facility] CHEM PANEL BUN 12 7 - 22 08/05 [facility] CHEM PANEL Creatinine 0.88 0.50 - 08/05 Lvl 1.40 [facility] CHEM PANEL eGFR 60 08/05 [facility] Comment: The [facility] eGFR is calculated using the CKD-EPI formula. [...] Bili Total 0.9 0.2 - 1.3 08/05 [facility] CHEM PANEL Alk Phos 126 39 - 136 08/05 [facility] CHEM PANEL Albumin Lvl 2.7 3.5 - 5.0 08/05 [facility] CHEM PANEL ALT 22 0 - 65 08/05 [facility] CHEM PANEL AST 27 0 - 37 12 /2014 [facility] CHEM PANEL AGAP 11.8 10.0 - 12 MH 20.0 /2014 [facility] CHEM PANEL B/C Ratio 14 6 - 25 08/05 /2014 [facility] CHEM PANEL A/G Ratio 0.6 0.7 - 1.6 08/05 /2014 [facility] CHEM PANEL Globulin 4.6 2.0 - 4.0 08/05 [facility] HEMATOLOGY MPV 8.9 7.4 - 10.4 08/05 /2014 [facility] HEMATOLOGY RDW 15.3 11.5 - 08/05 MH 14.5 /2014 [facility] HEMATOLOGY Platelet 69 133 - 450 12 [facility] HEMATOLOGY Hct 37.6 36.0 - 08/05 MH 48.0 /2014 [facility] HEMATOLOGY MCHC 32.8 32.0 - 08/05 MH 36.0 /2014 [facility] HEMATOLOGY Hgb 12.4 12.0 - 08/05 MH 16.0 /2014 [facility] HEMATOLOGY MCV 96.5 80.0 - 08/05 98.0 /2014 [facility] HEMATOLOGY MCH 31.7 27.0 - 08/05 MH 31.0 /2014 [facility] HEMATOLOGY WBC 6.2 3.7 - 10.4 08/05 /2014 [facility] HEMATOLOGY RBC 3.90 4.20 - 08/05 MH 5.40 /2014 [facility] HEMATOLOGY Monocytes # 0.5 0.0 - 0.8 08/05 /2014 [facility] HEMATOLOGY Basophils 0.6 0.0 - 1.0 08/05 /2014 [facility] HEMATOLOGY Segs-Bands # 4.2 1.5 - 8.1 08/05 /2014 [facility] HEMATOLOGY Eosinophils 0.1 0.0 - 0.5 08/05 MH # /2014 [facility] HEMATOLOGY Lymphocytes 1.4 1.0 - 5.5 08/05 MH # /2014 [facility] HEMATOLOGY Lymphocytes 22.3 20.0 - 12 MH 40.0 /2014 [facility] HEMATOLOGY Monocytes 7.3 2.0 - 12.0 08/05 [facility] HEMATOLOGY Eosinophils 1.4 0.0 - 4.0 08/05 [facility] HEMATOLOGY Segs 68.4 45.0 - 08/05 MH 75.0 /2014 [facility] HEMATOLOGY Basophils 0.4 0.0 - 1.0 04/19 [facility] HEMATOLOGY Monocytes # 0.9 0.0 - 0.8 04/19 /2013 [facility] HEMATOLOGY Lymphocytes 1.0 1.0 - 5.5 04/19 MH # /2014 [facility] HEMATOLOGY Segs-Bands # 4.2 1.5 - 8.1 04/19 /2013 [facility] HEMATOLOGY Eosinophils 0.2 0.0 - 0.5 04/19 MH # /2013 [facility] HEMATOLOGY Eosinophils 2.7 0.0 - 4.0 04/19 /2013 [facility] HEMATOLOGY Monocytes 13.7 2.0 - 12.0 04/19 /2013 [facility] HEMATOLOGY Lymphocytes 16.6 20.0 - 04/19 MH 40.0 /2013 [facility] HEMATOLOGY Segs 66.6 45.0 - 04/19 MH 75.0 /2013 [facility] HEMATOLOGY MCHC 33.3 32.0 - 04/19 MH 36.0 /2013 [facility] HEMATOLOGY RDW 15.2 11.5 - 04/19 MH 14.5 /2013 [facility] HEMATOLOGY MCH 32.3 27.0 - 04/19 MH 31.0 /2013 [facility] HEMATOLOGY MCV 96.9 80.0 - 04/19 98.0 /2013 [facility] HEMATOLOGY Hct 30.1 36.0 - 04/19 MH 48.0 /2013 [facility] HEMATOLOGY Platelet 67 133 - 450 04/19 /2013 [facility] HEMATOLOGY MPV 8.4 7.4 - 10.4 04/19 /2013 [facility] HEMATOLOGY Hgb 10.0 12.0 - 04/19 16.0 /2013 [facility] HEMATOLOGY RBC 3.11 4.20 - 04/19 MH 5.40 /[address] [facility] WBC 6.3 3.7 - 10.4 04/19 [facility] CHEM PANEL Globulin 4.8 2.0 - 4.0 04/13 [facility] CHEM PANEL A/G Ratio 0.6 0.7 - 1.6 04/13 [facility] CHEM PANEL AGAP 13.4 10.0 - 04/13 MH 20.0 [facility] CHEM PANEL B/C Ratio 9 6 - 25 04/13 [facility] CHEM PANEL eGFR 59 04/13 <sup>1</sup>R esult [facility] Comment: The eGFR is calculated using the [...] Albumin Lvl 2.9 3.5 - 5.0 04/13 [facility] CHEM PANEL ALT 23 0 - 65 04/13 [facility] CHEM PANEL AST 44 0 - 37 04/13 [facility] CHEM PANEL Alk Phos 122 39 - 136 04/13 [facility] CHEM PANEL Total 7.7 6.4 - 8.4 04/13 [facility] CHEM PANEL Bili Total 1.5 0.2 - 1.3 04/13 [facility] CHEM PANEL Sodium Lvl 144 135 - 145 04/13 [facility] CHEM PANEL Potassium 3.4 3.5 - 5.1 04/13 Lvl [facility] CHEM PANEL Chloride Lvl 106 95 - 109 04/13 [facility] CHEM PANEL CO2 28 24 - 32 04/13 [facility] CHEM PANEL Calcium Lvl 8.8 8.5 - 10.5 04/13 [facility] CHEM PANEL Creatinine 0.9 0.5 - 1.4 04/13 Lvl [facility] CHEM PANEL Glucose Lvl 71 70 - 99 04/13 <sup>2</sup>I nterpretive [facility] Data: Adult reference range values reflect the clinical guidelines
of the [place] [employer]. CHEM PANEL BUN 8 7 - 22 04/13 [facility] CHEM PANEL A/G Ratio 0.6 0.7 - 1.6 04/13 [facility] CHEM PANEL Globulin 4.8 2.0 - 4.0 04/13 [facility] CHEM PANEL Bili 0.8 0.0 - 1.0 04/13 [facility] CHEM PANEL ALT 23 0 - 65 04/13 [facility] CHEM PANEL Alk Phos 122 39 - 136 04/13 [facility] CHEM PANEL AST 45 0 - 37 08 /2013 [facility] CHEM PANEL Bili Direct 0.5 0.0 - 0.3 04/13 /2013 [facility] CHEM PANEL Bili Total 1.3 0.2 - 1.3 04/13 [facility] CHEM PANEL Total 7.7 6.4 - 8.4 04/13 Protein /2013 [facility] CHEM PANEL Albumin Lvl 2.9 3.5 - 5.0 04/13 /2013 [facility] HEMATOLOGY MCH 32.1 27.0 - 08 MH 31.0 /2013 [facility] HEMATOLOGY RDW 14.6 11.5 - 08 MH 14.5 /2013 [facility] HEMATOLOGY MCHC 33.1 32.0 - 08 36.0 /2013 [facility] HEMATOLOGY Platelet 76 133 - 450 04/13 /2013 [facility] HEMATOLOGY RBC 3.79 4.20 - 04/13 MH 5.40 /2013 [facility] HEMATOLOGY Hct 36.7 36.0 - 04/13 48.0 /2013 [facility] HEMATOLOGY MCV 97.0 81.0 - 04/13 99.0 /2013 [facility] HEMATOLOGY Hgb 12.1 12.0 - 04/13 16.0 /2013 [facility] HEMATOLOGY WBC 4.6 3.7 - 10.4 04/13 /2013 [facility] HEMATOLOGY MPV 8.9 7.4 - 10.4 04/13 /2013 [facility] HEMATOLOGY Segs 52.6 45.0 - 04/13 75.0 /2013 [facility] HEMATOLOGY Monocytes # 0.6 0.0 - 0.8 04/13 /2013 [facility] HEMATOLOGY Eosinophils 0.1 0.0 - 0.5 04/13 MH # /2014 [facility] HEMATOLOGY Basophils 1.0 0.0 - 1.0 04/13 /2013 [facility] HEMATOLOGY Segs-Bands # 2.4 1.5 - 8.1 04/13 /2013 [facility] HEMATOLOGY Lymphocytes 1.5 1.0 - 5.5 04/13 MH # /2014 [facility] HEMATOLOGY Lymphocytes 32.1 20.0 - 08 MH 40.0 /2013 [facility] HEMATOLOGY Monocytes 12.2 2.0 - 12.0 04/13 /2013 [facility] HEMATOLOGY Eosinophils 2.1 0.0 - 4.0 04/13 /2013 [facility] CHEM PANEL AST 43 0 - 37 07 /2013 [facility] CHEM PANEL Albumin Lvl 2.9 3.5 - 5.0 03/06 MH [facility] CHEM PANEL Total 7.7 6.4 - 8.4 / MH Protein /2013 [facility] CHEM PANEL Bili Direct 0.5 0.0 - 0.3 03/06 MH [facility] CHEM PANEL Alk Phos 137 39 - 136 / MH [facility] CHEM PANEL Bili Total 1.4 0.2 - 1.3 03/06 [facility] CHEM PANEL ALT 22 0 - 65 / MH [facility] CHEM PANEL Bili 0.9 0.0 - 1.0 / MH Indirect /2013 [facility] CHEM PANEL Globulin 4.8 2.0 - 4.0 03/06 MH [facility] CHEM PANEL A/G Ratio 0.6 0.7 - 1.6 03/06 [facility] ELECTROLYT AGAP 8.9 10.0 - 07/ MH ES 20.0 /2013 [facility] ELECTROLYT eGFR 59 07 <sup>1</sup>R MH ES esult [facility] Comment: The eGFR is calculated using the [...] 28 24 - 32 / MH ES [facility] ELECTROLYT Calcium Lvl 8.7 8.5 - 10.5 03/06 MH ES [facility] ELECTROLYT BUN 9 7 - 22 / MH ES [facility] ELECTROLYT Creatinine 0.9 0.5 - 1.4 / MH ES Lvl /2013 [facility] ELECTROLYT Sodium Lvl 140 135 - 145 03/06 MH [facility] ELECTROLYT Potassium 3.9 3.5 - 5.1 03/06 ES Lvl /2013 [facility] ELECTROLYT Chloride Lvl 107 95 - 109 03/06 [facility] ELECTROLYT Glucose Lvl 84 70 - 99 03/06 <sup>2</sup>I nterpretive [facility] Data: Adult reference range values reflect the clinical guidelines
of the [place] [employer]. HEMATOLOGY Hgb 11.9 12.0 - 03/06 16.0 /2013 [facility] HEMATOLOGY Hct 35.2 36.0 - 03/06 48.0 /2013 [facility] HEMATOLOGY Platelet 80 133 - 450 03/06 [facility] HEMATOLOGY WBC 4.4 3.7 - 10.4 03/06 [facility] HEMATOLOGY PT 15.9 12.0 - 03/06 14.7 [facility] HEMATOLOGY INR 1.29 0.85 - 03/06 <sup>3</sup>I 1.17 nterpretive [facility] Data: RECOMMENDED RANGES FOR PROTIME INR:
2.0-3.0 for most medical and surgical thromboemboli c states.
2.5-3.5 for artificial heart valves and recurrent embolism.<br/ >
INR SHOULD BE USED ONLY FOR PATIENTS ON STABLE ANTICOAGULANT THERAPY. 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 Contrast administration demonstrates moderate bilateral hydronephrosis. Subsequently bilateral ureteral stents were placed. Refer to operative report for full details. SL: BRUNA-M PET CT Colorectal CA Patient Name: EDGARD DÍAZ 03/04/2017 [facility] restaging : 1930; Age: 86 years y/o Female MR: [id number] Study: PET CT Colorectal CA restaging 03/04/2017 [...] urinary bladder suspicious for chronic cystitis. SL: [id number] Carotid artery Doppler CAROTID DOPPLER 08/06/2015 [facility] US HISTORY: Mental status changes. Encephalopathy. TECHNIQUE: [...] Chest 1view DX Chest one view: 08/05/2015 [facility] COMPARISON: 04/19/2014 FINDINGS: Limited AP portable [...] CT PROCEDURE: Brain wo contrast CT 08/05/2015 [facility] REASON FOR EXAM: pt from IV [...] 2 views EXAM: Chest 2 views 04/19/2014 [facility] DATE: Apr 19, 2014 09:48:02 [...] PET CT Colorectal CA PET/CT SCAN: 03/24/2014 [facility] restaging TECHNIQUE: 14 mCi of FDG [...] hypertension. SL:[address] Colorectal CA 09/14/2013 [facility] restaging EXAM: PET/CT HISTORY: Colon cancer, [...] Comments Source Systolic (mm Hg) 125 08/03/2017 [facility] Diastolic (mm Hg) 71 08/03/2017 [facility] Systolic (mm Hg) 129 08/03/2017 [facility] Diastolic (mm Hg) 66 08/03/2017 [facility] Systolic (mm Hg) 128 08/03/2017 [facility] Diastolic (mm Hg) 59 08/03/2017 [facility] Respitory Rate 16 08/03/2017 [facility] Respitory Rate 11 08/03/2017 [facility] Respitory Rate 9 08/03/2017 [facility] Temperature Oral (F) 97.3 F 08/02/2017 [facility] Heart Rate 70 08/02/2017 [facility] BMI Calculated 27.18 08/02/2017 [facility] Height 165.1 cm 08/02/2017 [facility] Weight 74.091 08/02/2017 [facility] Systolic (mm Hg) 99 04/21/2017 [facility] Diastolic (mm Hg) 56 04/21/2017 [facility] Respitory Rate 18 04/21/2017 [facility] Respitory Rate 18 04/21/2017 [facility] Systolic (mm Hg) 114 04/21/2017 [facility] Diastolic (mm Hg) 58 04/21/2017 [facility] Systolic (mm Hg) 109 04/21/2017 [facility] Diastolic (mm Hg) 56 04/21/2017 [facility] Respitory Rate 12 04/21/2017 [facility] Height 165.1 cm 04/13/2017 [facility] Weight 74.545 04/13/2017 [facility] BMI Calculated 27.35 04/13/2017 [facility] Temperature Oral (F) 97.4 F 04/13/2017 [facility] Heart Rate 80 04/13/2017 [facility] Systolic (mm Hg) 118 02/23/2017 [facility] Diastolic (mm Hg) 61 02/23/2017 [facility] Respitory Rate 32 02/23/2017 [facility] Respitory Rate 28 02/23/2017 [facility] Systolic (mm Hg) 109 02/23/2017 [facility] Diastolic (mm Hg) 60 02/23/2017 [facility] Systolic (mm Hg) 109 02/23/2017 [facility] Diastolic (mm Hg) 61 02/23/2017 [facility] Respitory Rate 23 02/23/2017 [facility] Temperature Oral (F) 97.4 F 02/16/2017 [facility] Heart Rate 72 02/16/2017 [facility] BMI Calculated 28.02 02/16/2017 [facility] Weight 76.364 02/16/2017 [facility] Height 165.1 cm 02/16/2017 [facility] Weight 159 08/12/2015 [id number] Height 64.4 08/12/2015 [id number]. [id number] Temperature Oral (F) 97.6 F 08/12/2015 [id number]. [id number] Heart Rate 93 08/12/2015 [id number]. [id number] Diastolic (mm Hg) 63 08/12/2015 [id number]. [id number] Systolic (mm Hg) 114 08/12/2015 [id number]. [id number] Systolic (mm Hg) 102 08/07/2015 [facility] Diastolic (mm Hg) 66 08/07/2015 [facility] Temperature Oral (F) 97.6 F 08/07/2015 [facility] Respitory Rate 16 08/07/2015 [facility] Heart Rate 77 08/07/2015 [facility] Respitory Rate 15 08/07/2015 [facility] Temperature Oral (F) 97.4 F 08/07/2015 [facility] Heart Rate 81 08/07/2015 [facility] Systolic (mm Hg) 100 08/07/2015 [facility] Diastolic (mm Hg) 66 08/07/2015 [facility] Systolic (mm Hg) 115 08/07/2015 [facility] Diastolic (mm Hg) 73 08/07/2015 [facility] Heart Rate 83 08/07/2015 [facility] Respitory Rate 16 08/07/2015 [facility] Temperature Oral (F) 97.4 F 08/07/2015 [facility] BMI Calculated 26.89 08/06/2015 [facility] Weight [...] 16 04/20/2014 [facility] Heart Rate 92 04/20/2014 [facility] Temperature Oral (F) 98.2 F 04/20/2014 [facility] Systolic (mm Hg) 109 04/20/2014 [facility] Diastolic (mm Hg) 70 04/20/2014 [facility] Heart Rate 90 04/20/2014 [facility] Temperature Oral (F) 97.9 F 04/20/2014 [...] 03/13/2014 [facility] Systolic (mm Hg) 113 03/13/2014 [facility] Diastolic (mm Hg) 54 03/13/2014 [facility] Temperature Oral (F) 97.6 F 03/06/2014 [facility] Height 165.1 cm 03/06/2014 [facility] Weight 65.909 03/06/2014 [facility] BMI Calculated 24.18 03/06/2014 [facility] Weight 149 02/02/2014 [facility] Temperature [...] Number For Provider Date Date Visit Outpatient [id number] COLON PING NORMAN 09/14 Active [facility] Outpatient [id number] 153.9 PING NORMAN 09/20 Active [facility] Bedded [id number] [facility] 03/13 03/13 [facility] Outpatient 0 [facility] Office [id number] Dakota Michele, 03/23 03/[id number] General Surgery 350 [facility] Outpatient [id number] Ping Norman 03/24 03/25 [facility] Lab Report [id number] Dakota Michele, 03/26 03/26 [place] [id number] [facility] Lab Report [id number] odoros 04/12 04/12 [place] 28040 ian Medical MD [facility] OBS [id number] Dakota Michele 04/18 04/20 [place] Observation [facility] Office [id number] Dakota Michele, 04/27 04/27 [place] Visit [id number] [facility] General Surgery [facility] OP [id number] Ping Norman 08/05 09/04 [place] [facility] OBS [id number] Van 08/06 08/07 [place] Observation 3 [facility] [id number] 08/12 08/12 2.16.840 Medical [id number] /2014 .1.94198 Group [id number] [id number] Outpatient [id number] [facility] 05/14 [facility] 0 VOLOY [place] Outpatient [id number] [facility] 10/15 Active [facility] 1 VOLOYIAN [place] Outpatient [id number] [facility] 02/23 Active [facility] 3 VOLOY [place] Outpatient [id number] [facility] 02/23 Active [facility] 2 VOL [facility] Bedded [id number] [facility] 02/23 02/23 [place] Outpatient 4 Volian /2016 [facility] Outpatient [id number] [facility] 03/04 03/05 [facility] 5 Voloyiannis /2016 [facility] Outpatient [id number] [facility] 03/30 [facility] [place] Outpatient [id number] [facility] 04/21 [facility] VOLOY [facility] Surgery [id number] [facility] 04/21 04/21 [place] 7 Voloyiannis /2016 [facility] Outpatient [id number] ROMAN FOSTER 05/12 [facility] [place] Outpatient [id number] NINO VAPROSPER 05/17 Active [facility] [place] Outpatient [id number] NURSE VISIT 06/22 [facility] Day Surgery [id number] Nino [facility] 08/03 08/03 [facility] Outpatient [id number] NINO WILSON 08/26 [facility] [place] Outpatient [id number] JOVANA CUI 08/26 [facility] Ambulatory [id number] Jovana Karli 08/26 08/26 Urology [facility] Outpatient [id number] Nino [facility] 08/26 08/27 [facility] Outpatient [id number] NINO [facility] 09/27 [facility] Outpatient [id number] Nino [facility] 09/27 09/28 [facility] Outpatient [id number] NINO [facility] 01/14 [facility] Ambulatory [id number] [facility] 01/14 01/14 Urology Pre[facility] Procedures Procedure Code Date Perfomer Comments Source Cystourethroscopy, 78905 Medical with removal of 7 Group foreign body, calculus, or ureteral stent from urethra or bladder (separate procedure); simple Hernia repair [id number] Medical 4 Group,[facility] Cannulation of [id number] Medical Portacath Group,[facility] Cardiac [id number] 1994 Medical catheterization<sup>1 Group, </sup> [facility] Cataract extraction [id number] Medical and insertion of Group, intraocular lens [facility] Cholecystectomy [id number] Medical Group,[facility] Colonoscopy [id number] Medical Group,[facility] Hysterectomy [id number] Medical Group,[facility] Knee [id number] 2011 Medical replacement<sup>2</red Group, p> [facility] Operation [id number] Medical Group,[facility] Partial resection of [id number] Medical colon Group,[facility] Assessment and Plan Assessment and Plan Date Source Extracted from:Title: History and Physical 08/03/2017 [facility] Author: Nino Wilson MD Date: 08/03/17 Renal calculi Extracted from:Title: Clinical Document 04/21/2017 [facility] Author: Galdino Ureña MD Date: 04/21/17 PREOPERATIVE DIAGNOSIS: Personal history of colon cancer. POSTOPERATIVE DIAGNOSIS: Personal history of colon cancer. PROCEDURE: Port-A-Cath removal. SURGEON: Dr. Ureña. [employer] MANAGER: None. ANESTHESIA: General. IV FLUIDS: 200 mL. [...] We placed a 2- 0 Vicryl in [id number]-kg-klmef fashion at the site of the Port-A-Cath [...] the patients satisfaction Extracted from:Title: preop 02/23/2017 [facility] Author: Roman Foster, MPH, PA-C Date: [...] and Dr. Galdino Ureña, who provided a [id number] visit and performed the physical exam, assessment and plan, and the note transcribed by Roman Mason total exam time, coordination of care, education >20 minutes [3] Extracted from:Title: Clinical Document 08/07/2015 [facility] Author: Van Luu MD Date: 08/06/15 Chart reveiwed. Patient seen and examined. WIll continue to follow. Extracted from:Title: Clinical Document 04/20/2014 [facility] Author: Dakota Michele MD Date: 04/19/14 Surgery Progress Note Attending: Dakota Michele MD Service: Plastic Surgery Service Code status: None Specified=FULL CODE Reason for Admission: 553.2 Working DRG: None Documented Isolation: None Documented Consulting Physicians: Dakota Michele MD Office: MSO: [id number] Service: General Surgery SUBJECTIVE: Doing OK. Still [...] Present Illness: Oncologist - Dr. Marlyn Norman; Metal Furniture Glazier - Dr. Angel Mike ............Sharifa Tatum March [...] UMB HERNIA WITHOUT MENTION OBSTRUCTION/GANGRENE (ICD-553.1) ( VMR12-N24.9) Assessment: Unchanged Will offer repair as she desires intervention Wll request cardiac clearance Onel with this latest PET to reaffirt cancer free state Discussed case with referring MD Orders: Office Visit, [facility] III - 70735 ([id number]) Problem # 2: CARCINOMA, ASCENDING COLON (ICD-153.6) (LLQ05-O43.2) Assessment: Improved Post excision and allears to be disease free Orders: Office Visit, [facility] Level III - 34704 ([id number]) Patient Instructions: 1) Cardiac eval for pre [...] on: 08/03/17 Social History ElementQualifiersDate Reported 08/12/2015 [id number] Tobacco Use: .70683 . Are you a: never smoker Aug [...]
--- OUTSIDE RECORDS SUMMARY | 2019-04-28 08:34 | XMS REPORT | CCD ---
:1930 Author Organization [facility] Care Team Providers Name Role Phone Marlyn Ceballos Consulting Provider Allergies, Adverse Reactions, Alerts Substance Reaction Status morphine Active Problem List Condition Effective Dates Status CAD - Coronary artery disease Active Cancer of colon 05/10/2011 Active Cirrhosis of liver Active Esophageal varices Active Hepatitis C Active Pneumonia Active
--- OUTSIDE RECORDS SUMMARY | 2019-04-28 08:34 | XMS REPORT | CCD ---
:1930 Author Organization [facility] Care Team Providers Name Role Phone Marlyn Ceballos Referring Provider Allergies, Adverse Reactions, Alerts Substance Reaction Status morphine Active Problem List Condition Effective Dates Status CAD - Coronary artery disease Active Cancer of colon 05/10/2011 Active Cirrhosis of liver Active Esophageal varices Active Hepatitis C Active Pneumonia Active
--- OUTSIDE RECORDS SUMMARY | 2019-04-28 08:35 | XMS REPORT | Continuity of Care Document ---
:1930 Author Organization [facility] Care Team Providers Name Role Phone MD Michele Hoang Unavailable Unavailable Insurance Providers Payer name Policy type / Policy ID Covered alliance party ID Policy Montoya Coverage type MEDIC[place]: [employer] AARP HEALTHCARE OPTIONS (MEDICARE SUPPLEMENT AARP HEALTHCARE [...] [facility] Mar 23, 2014 Surgery 350 [...]
--- OUTSIDE RECORDS SUMMARY | 2019-04-28 08:35 | XMS REPORT | Continuity of Care Document ---
:1930 Author Organization [facility] Care Team Providers Name Role Phone MD Michele Hoang Unavailable Unavailable Insurance Providers Payer name Policy type / Policy ID Covered alliance party ID Policy Montoya Coverage type MEDIC[place]: [employer] AARP HEALTHCARE OPTIONS (MEDICARE SUPPLEMENT AARP HEALTHCARE [...] Location Date Lab Report Dakota Michele MD [facility] [place] Mar 26, 2014 Allergies, Adverse Reactions, Alerts [...]
--- OUTSIDE RECORDS SUMMARY | 2019-04-28 08:35 | XMS REPORT ---
:1930 Author Organization [employer] Care Team Providers Name Role Phone Belkis Luuad Provider Role Unavailable Allergies, Adverse Reactions, Alerts Substance Reaction Event Type Adhesive Tape rash Drug Allergy Morphine Sulfate Info Not Available Drug Allergy Encounters Encounter Location Date Unknown [facility] Aug 12, 2015 Problems Problem Type [...] End Status Dosage Date Date Propranolol [facility] 50772-71 20 mg Orally Active 1 tablet 73-00 daily Gabapentin [facility] 38221-41 300 MG Orally Active 1 capsule 39-19 twice a day (bid) B-12 [facility] 37653-17 2500 MCG Active Unknown 92-72 Sublingual Ocuvite [facility] 00854-74 Orally daily Active 1 tablet 87-60 Lasix [facility] 10995-79 40 MG Orally Active 1 tablet 60-13 Once a day Ciprofloxacin [facility] 59442-99 500 MG/5ML (10%) Active 5 ml 93-01 Orally Twice a day Spironolactone [facility] 96785-00 25 MG Orally Active 1 tablet 03-11 daily Caltrate 600+D [facility] 25453-53 600-400 MG-UNIT Active 1 tablet 86-00 Orally [...]
--- OUTSIDE RECORDS SUMMARY | 2019-04-28 08:35 | XMS REPORT | Continuity of Care Document ---
:1930 Author Organization [facility] Care Team Providers Name Role Phone MD Michele Hoang Unavailable Unavailable Insurance Providers Payer name Policy type / Policy ID Covered republican ID Policy Montoya Coverage type MEDICARE [place]: [employer] AARP HEALTHCARE OPTIONS (MEDICARE SUPPLEMENT AARP HEALTHCARE [...] [facility] Apr 27, 2014 Surgery 350 [...]
--- OUTSIDE RECORDS SUMMARY | 2019-04-28 08:35 | XMS REPORT | Continuity of Care Document ---
:1930 Author Organization [facility] Care Team Providers Name Role Phone MD Niranjan, Galdino Unavailable Unavailable Insurance Providers Payer name Policy type / Policy ID Covered democrat ID Policy Montoya Coverage type MEDICARE [place]: [employer] AARP HEALTHCARE OPTIONS (MEDICARE SUPPLEMENT AARP HEALTHCARE [...] Report Galdino Ureña MD [facility] Apr 12, 2014 Allergies, Adverse Reactions, Alerts [...]
--- NOTE | 2019-04-28 10:27 | RAD REPORT ---
EXAM DESCRIPTION: US - Paracentesis Proc Guidance - 04/28/2019 9:53 am CLINICAL HISTORY: ASCITES Ascites COMPARISON: Paracentesis Proc Guidance dated 04/21/2019 FINDINGS: Informed consent was obtained and time-out was performed. Patient's abdomen was prepped and draped in the usual sterile fashion. 1% lidocaine was used for loca l anesthetic purposes. A small skin incision was made. A paracentesis catheter was guided into the peroneal cavity under son ographic guidance. A small amount of fluid was sent for requested lab studies. 4 liter volume paracentesis was then perf ormed. The patient tolerated the procedure well. IMPRESSION: Successful ultrasound-guided paracentesis.
[2019-04-28 11:57] VITALS: BP 104/56; TEMP 98.3; O2SAT 97
[2019-04-28 13:09] LABS: Appearance SLT. TURBID (CLEAR); Body Fluid Source PERITONEAL; Body Fluid WBC 128 /mm^3; Color of fluid Yellow (COLORLESS)
== END ==
LOC: DS 08:27
PROVIDERS: ATTEND Internal Medicine Gastroenterology
DX: R18.8 Other ascites (principal); K72.90 Hepatic failure, unspecified without coma; K74.60 Unspecified cirrhosis of liver; K76.0 Fatty (change of) liver, not elsewhere classified; R60.9 Edema, unspecified; R60.0 Localized edema; K30 Functional dyspepsia; L25.9 Unspecified contact dermatitis, unspecified cause
CPT/HCPCS: 36415; 89050; 96365; 49083; 96366; P9047

== ENCOUNTER 2019-05-05 08:31 | Day surgery (SDC) | payer OTHER ==
--- OUTSIDE RECORDS SUMMARY | 2019-05-05 08:33 | XMS REPORT | Clinical Summary ---
:1930 Author Organization [facility] Address [address] [place] [address] Care Team Providers Name Role Phone Kandy Castillo PA-C Physician Water Well Driller Unavailable Ankush Levine Referring Physician Fareed Ballesteros [...] mL) mouth 3 (three) solution times daily. MAGNESIUM OXIDE ORAL Take by mouth. 0 07/11/2018 Active omeprazole Take by mouth. 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); Screening for malignant neoplasm; Other ascites; Encephalopathy 02/22/2019 Abstract Pennie Bahena RN 02/03/2019 Orders Only HepatXiao Cesar RN 12/27/2018 Orders Only HepatXiao Cesar RN 11/01/2018 Orders Only HepatPennie Gomez RN 10/20/2018 Abstract Yvonne James MA 10/17/2018 Telephone Hepatology Kandy Castillo, Follow-up PA-C 09/30/2018 Abstract Pennie Bahena RN 09/30/2018 Telephone Pennie Bahena RN Pending imaging 09/30/2018 Abstract Pennie Bahena RN 09/20/2018 Documentation Xiao Cole RN 09/12/2018 Telephone Xiao Cole RN other 08/11/2018 Telephone Xiao Cole RN other 08/10/2018 Office Visit Lynn Snowden MD 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); Resource, [facility] Screening for cancer; Hepatology Clinic E Encephalopathy; Abnormal breath sounds 07/11/2018 Telephone Hepatology Xiao Mckeon RN other 05/31/2018 Telephone Hepatology Xiao Mckeon RN other 05/13/2018 Abstract Hepatology Yvonne Atkins MA after 05/04/2018 Family History Medical History Relation Name Comments [...] Vital Sign Reading Time Taken Blood Pressure 106/66 05/02/2019 3:05 PM CDT Pulse 82 05/02/2019 3:05 PM CDT Temperature 36.4 C (97.5 F) 05/02/2019 3:05 PM CDT Respiratory Rate 18 05/02/2019 3:05 PM CDT Oxygen Saturation 99% 05/02/2019 3:05 PM CDT Inhaled Oxygen Concentration - - Weight 56.3 kg (124 lb 1.6 oz) 05/02/2019 3:05 PM CDT Height 165.1 cm (5' 5") 05/02/2019 3:05 PM CDT Body Mass Index 20.65 05/02/2019 3:05 PM CDT Plan of Treatment Date Type Specialty Care Team Description 10/31/2019 Office Visit Hepatology Lynn Murguia MD [address] [address] [phone] [facility] E Procedures Procedure Name Priority Date/Time Associated Comments Diagnosis CBC W/PLT COUNT & Routine 08/10/2018 3:45 Hepatic cirrhosis Results 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 Screening for cancer Encephalopathy AMMONIA Routine 08/10/2018 3:45 Hepatic cirrhosis Results for this PM EXTENDED DAY TEACHER due to chronic procedure are in hepatitis C the results infection (HCC) section. Screening for cancer Encephalopathy ALPHA FETOPROTEIN Routine 08/10/2018 3:45 Hepatic cirrhosis Results for this (AFP), TUMOR MARKER PM EXTENDED DAY TEACHER due to chronic procedure are in hepatitis C the results infection (HCC) section. Screening for cancer Encephalopathy PROTHROMBIN TIME/INR Routine 08/10/2018 3:45 Hepatic cirrhosis Results for this PM EXTENDED DAY TEACHER due to chronic procedure are in hepatitis C the results infection (HCC) section. Screening for cancer Encephalopathy CBC W/PLT COUNT & Routine 08/10/2018 3:45 Hepatic cirrhosis Results 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 Screening for cancer Encephalopathy HEPATIC FUNCTION Routine 08/10/2018 3:45 Hepatic cirrhosis Results for this PANEL PM EXTENDED DAY TEACHER due to chronic procedure are in hepatitis C the results infection (HCC) section. Screening for cancer Encephalopathy BASIC METABOLIC PANEL Routine 08/10/2018 3:45 Hepatic cirrhosis Results for this (7) PM EXTENDED DAY TEACHER due to chronic procedure are in hepatitis C the results infection (HCC) section. Screening for cancer Encephalopathy after 05/04/2018 Results CBC with platelet count + automated diff (08/10/2018 3:45 PM EXTENDED DAY TEACHER) WBC 5.0 3.5 - 10.5 K/L [facility] RBC 3.39 (L) 3.93 - 5.22 M/L [facility] Hemoglobin 10.7 (L) 11.2 - 15.7 GM/DL [facility] Hematocrit 33.1 (L) 34.1 - 44.9 % [facility] MCV 97.6 (H) 79.4 - 94.8 fL [facility] MCH 31.6 25.6 - 32.2 pg [facility] MCHC 32.3 32.2 - 35.5 GM/DL [facility] RDW 15.0 (H) 11.7 - 14.4 % [facility] Platelets 98 (L) 150 - 450 K/CU MM [facility] MPV 10.0 9.4 - 12.3 fL [facility] nRBC 0 0 - 0 /100 WBC [facility] % Neutros 71 % [facility] % Lymphs 14 % [facility] % Monos 12 % [facility] % Eos 2 % [facility] % Baso 1 % [facility] # Neutros 3.51 1.56 - 6.13 K/L [facility] # Lymphs 0.69 (L) 1.18 - 3.74 K/L [facility] # Monos 0.62 (H) 0.24 - 0.36 K/L [facility] # Eos 0.10 0.04 - 0.36 K/L [facility] # Baso 0.04 0.01 - 0.08 K/L [facility] Immature Granulocytes-Relative 0 0 - 1 % [facility] Specimen Blood Performing Organization Address City/State/Zipcode Phone Number [address] [address] [place] Alpha fetoprotein (AFP), tumor marker (08/10/2018 3:45 PM EXTENDED DAY TEACHER) Alpha-Fetoprotein 2.9 <10.0 ng/mL [facility] Specimen Blood Performing Organization Address City/[facility]/Zipcode Phone Number [address] [address] C[place] Pro-time/INR (08/10/2018 3:45 PM EXTENDED DAY TEACHER) Protime 16.5 (H) 11.7 - 14.7 seconds [facility] INR 1.3 <=5.9 [facility] Specimen Blood Narrative Performed At RECOMMENDED COUMADIN/WARFARIN INR THERAPY [facility] RANGES STANDARD DOSE: 2.0 - 3.0 Includes: PROPHYLAXIS for venous thrombosis, systemic embolization; TREATMENT for venous thrombosis and/or pulmonary embolus. HIGH RISK: Target INR is 2.5-3.5 for patients with mechanical heart valves. Performing Organization Address City/[facility] Phone Number [address] [address] C[place] Ammonia (08/10/2018 3:45 PM EXTENDED DAY TEACHER) Ammonia 40 18 - 72 mol/L [facility] Specimen Blood Performing Organization Address City/[facility] Phone Number [address] [address] [place] Hepatic function panel (08/10/2018 3:45 PM EXTENDED DAY TEACHER) Protein, Total 9.0 (H) 6.0 - 8.3 gm/dL [facility] Albumin 2.8 (L) 3.5 - 5.0 g/dL [facility] Total Bilirubin 1.2 0.2 - 1.2 mg/dL [facility] Bilirubin, Direct 0.7 (H) 0.1 - 0.5 mg/dL [facility] Alkaline Phosphatase 111 40 - 150 U/L [facility] AST 31 5 - 34 U/L [facility] ALT 12 6 - 55 U/L [facility] Specimen Blood Performing Organization Address [facility] Phone Number [address] [address] [phone] CENTER Basic Metabolic Panel (08/10/2018 3:45 PM EXTENDED DAY TEACHER) Sodium 133 (L) 136 - 145 meq/L [facility] Potassium 4.0 3.5 - 5.1 meq/L [facility] Chloride 100 98 - 107 meq/L [facility] CO2 27 22 - 29 meq/L [facility] BUN 20 7 - 21 mg/dL [facility] Creatinine 1.07 0.57 - 1.25 mg/dL [facility] Glucose 71 70 - 105 mg/dL [facility] Calcium 9.4 8.4 - 10.2 mg/dL [facility] EGFR 49Comment: ESTIMATED GFR IS mL/min/1.73 sq m [facility] NOT ACCURATE [facility] CLEARANCE IN PREDICTING GLOMERULAR FILTRATION RATE. ESTIMATED GFR IS NOT APPLICABLE FOR DIALYSIS PATIENTS. Specimen Blood Performing Organization Address City/State/Zipcode Phone Number [facility] [address] [place] [address] CENTER after 05/04/2018 Insurance Payer Benefit Plan / Group Subscriber ID Type Phone Address MEDICARE MEDICARE A B xxxxxxxxxxx Medicare [facility] GENERIC MEDICARE xxxxxxxxx [employer] SUPPLEMENT/INDIVIDUAL SUPPLEMENT
--- OUTSIDE RECORDS SUMMARY | 2019-05-05 08:38 | XMS REPORT | Continuity of Care Document ---
:1930 Author Organization [facility] Care Team Providers Name Role Phone [facility] Unavailable Unavailable Problems Problem Status Onset Classification [...] Active Problem 04/24/2017 Data migrated 014 from [facility] on 01/28/15. Umbilical hernia5 Active Problem 01/17/2018 Data migrated Medical 014 from [facility] [place] 01/28/15. UMB HERNIA WITHOUT Active Condition 04/27/2014 Medical MENTION 014 Group OBSTRUCTION/GANGRE NE LARGE INTESTINE Active Condition 04/27/2014 Medical CANCER 012 Group SCREENING FOR Active Condition 04/27/2014 Medical COLON CANCER 012 Group Carcinoma of Active Problem 01/17/2018 Data migrated Medical ascending colon1 011 from [facility] [place] 01/28/15. CARCINOMA, Active Condition 04/27/2014 Medical ASCENDING COLON 011 Group Cancer of colon Active Problem 01/17/2018 Medical 011 Group,[facility] CH - Chronic Active Problem 04/24/2017 hepatitis [place] DVT (Confirmed) Resolved Problem 04/24/2017 [facility] Bronchitis Res[facility] Problem [facility] Active Problem 01/17/2018 Medical [...] Unspecified Active Diagnosis 08/26/2015 2.16.840.1. infectious disease [id number] Bacterial Active Diagnosis 08/26/2015 2.16.840.1. infection [id number] Other Active Diagnosis 08/26/2015 2.16.840.1. encephalopathy [id number] Esophageal varices Active Diagnosis 08/26/2015 2.16.840.1. [id number] 1.11.18697 Hepatic cirrhosis Active Diagnosis 08/26/2015 2.16.840.1. [id number] UTI Active Problem 08/26/2015 2.16.840.1. [id number] MALIGNANT MIGEL Active COLON NOS [place] 153.9 Active [place] HEPATOPULMONARY Active SYNDROME [place] HX OF COLONIC Active MALIGNANCY [place] URIN TRACT Active INFECTION NOS [place] INCISIONAL HERNIA Active [place] MALIGNANT NEOPLASM Active MH OF COLON, [place] UNSPECIFIED PERSONAL HISTORY Active MH OF MALIGNANT [place] NEOPLASM O CALCULUS OF KIDNEY Active [facility] Medications Medication Details Route Status Patient Ordering Order Source Instructions Provider Date Acetaminophen 2 tab, PO, Active 300 MG / Q6H, PRN 2016 [facility] Codeine Pain, X 7 Phosphate 30 MG day, # 56 Oral Tablet tab, 0 [Tylenol with Refill(s) Codeine #3] esmolol (ANES) Route: IV, Inactive Drug form: 2016 [facility] INJ, ONCE, Stop date: 08/03/17 13:22:00 [employer] ondansetron Route: IV, Inactive (ANES) Drug form: 2016 [facility] INJ, ONCE, Stop date: 08/03/17 13:07:00 [employer] propofol (ANES) Route: IV, Inactive Drug form: 2016 [facility] INJ, ONCE, Stop date: 08/03/17 13:07:00 [employer] lidocaine Route: IV, Inactive (ANES) Drug form: 2016 [facility] INJ, ONCE, Stop date: 08/03/17 13:07:00 [employer] ciprofloxacin Route: IV, Inactive (ANES) Drug form: 2016 [facility] INJ, ONCE, Stop date: 08/03/17 13:07:00 [employer] dexamethasone Route: IV, Inactive (ANES) Drug form: 2016 [facility] INJ, ONCE, Stop date: 08/03/17 13:07:00 [employer] fentaNYL (ANES) Route: IV, Inactive Drug form: 2016 [facility] INJ, ONCE, Stop date: 08/03/17 13:02:00 [employer] Calcium 1,000 mL, Inactive Chloride 0.0014 Rate: 25 2016 [facility] MEQ/ML / ml/hr, Infuse Potassium over: 40 hr, Chloride 0.004 Route: IV, MEQ/ML / Sodium Dosing Weight Chloride 0.103 74.091 kg, MEQ/ML / Sodium Total Volume: Lactate 0.028 1,000, Start MEQ/ML date: Injectable 08/03/17 Solution 12:12:00 [employer], Duration: 30 day, Stop date: 09/02/17 12:11:00 [employer], 1.86, m2 vancomycin Route: IV, Inactive (ANES) 1000 mg Drug form: 2016 [facility] INJ, Start date: 08/03/17 12:10:00 [employer], Stop date: 08/03/17 13:10:00 [employer] Lactated Route: IV, Inactive Ringers Total Volume: 2016 [facility] Injection IV 1,000, Start (ANES) 1000 mL date: 08/03/17 12:10:00 [employer], Stop date: 08/03/17 13:10:00 [employer] Ceftriaxone 1 gm, Route: No Longer IVPB, Q12H, Active 2016 [facility] Dosing Weight 74.091, kg, Start date: 08/02/17 21:00:00 [employer], Duration: 24 hr, Stop date: 08/03/17 9:00:00 [employer], ABX Indication: Urinary Tract Infection phenylephrine Route: IV, Inactive (ANES) Drug form: 2016 [facility] INJ, ONCE, Stop date: 04/21/17 10:51:00 CDT ondansetron Route: IV, Inactive (ANES) Drug form: 2016 [facility] INJ, ONCE, Stop date: 04/21/17 10:41:00 CDT dexamethasone Route: IV, Inactive (ANES) Drug form: 2016 [facility] INJ, ONCE, Stop date: 04/21/17 10:41:00 CDT ceFAZolin Route: IV, Inactive (ANES) Drug form: 2016 [facility] INJ, ONCE, Stop date: 04/21/17 10:41:00 CDT lidocaine Route: IV, Inactive (ANES) Drug form: 2016 [facility] INJ, ONCE, Stop date: 04/21/17 10:41:00 CDT propofol (ANES) Route: IV, Inactive Drug form: 2016 [facility] INJ, ONCE, Stop date: 04/21/17 10:41:00 CDT fentaNYL (ANES) Route: IV, Inactive Drug form: 2016 [facility] INJ, ONCE, Stop date: 04/21/17 10:41:00 CDT acetaminophen Route: IV, Inactive (ANES) (ANES) Drug form: 2016 [facility] INJ, Start date: 04/21/17 10:35:00 CDT, Stop date: 04/21/17 11:35:00 CDT sodium chloride Route: IV, Inactive 08/23/ MH 0.9% 500 ml INJ Total Volume: 2016 [facility] (ANES) 500, Start date: 04/21/17 10:08:00 CDT, Stop date: 04/21/17 11:08:00 CDT Calcium 1,000 mL, Inactive Chloride 0.0014 Rate: 25 2016 [facility] MEQ/ML / ml/hr, Infuse Potassium over: 40 hr, Chloride 0.004 Route: IV, MEQ/ML / Sodium Dosing Weight Chloride 0.103 74.545 kg, MEQ/ML / Sodium Total Volume: Lactate 0.028 1,000, Start MEQ/ML date: Injectable 04/21/17 Solution 9:53:00 CDT, Duration: 30 day, Stop date: 05/21/17 9:52:00 CDT Ocuvite 1 tab, PO, Active Daily, 0 2016 [facility] Refill(s) Furosemide 40 40 mg=1 tab, Active MG Oral Tablet PO, Daily, 0 2016 [facility] Refill(s) Vitamin D3 2000 2,000 Active intl units oral IntlUnit=1 2016 [facility] tablet tab, PO, Daily, 0 Refill(s) Albuterol 0.833 3 mL, Route: Inactive MG/ML / NEB, Drug 2016 [facility] Ipratropium Form: SOLN, [place] 0.167 Dosing Weight MG/ML Inhalant 76.364, kg, Solution ONCE, STAT, Start date: 02/23/17 9:22:00 CDT, Stop date: 02/23/17 9:22:00 CDTNotes: (Same as: Mirza) Sodium Chloride 500 mL, Rate: Inactive 0.154 MEQ/ML 25 ml/hr, 2016 [facility] Injectable Infuse over: Solution 20 hr, Route: IV, Dosing Weight 76.364 kg, Total Volume: 500, Start date: 02/23/17 9:22:00 CDT, Duration: 1 day, Stop date: 02/24/17 9:21:00 CDT Lasix 20 mg, 1 tab, No Longer Route: PO, Active 2014 [facility] Drug form: TAB, Daily, Dosing Weight 73.295, kg, Start date: 08/08/15 9:00:00, Duration: 30 day, Stop date: 09/06/15 9:00:00Notes: (Same as: Lasix) May cause GI upset. Give with food or milk. Spironolactone 12.5 mg, 0.5 No Longer tab, Route: Active 2014 [facility] PO, Drug form: TAB, Daily, Dosing [...] 20 mL, Route: Inactive IVP, Start 2014 [facility] date: 08/07/15 12:19:00, Duration: 30 day, Stop date: 09/06/15 12:18:00, PRN Line FlushNotes: preservative free. sodium chloride 10 mL, Route: Inactive IVP, Start 2014 [facility] date: 08/07/15 12:18:00, Duration: 30 day, [...] Inactive 100 MG Oral cap, Route: 2014 [facility] Capsule PO, Drug [Colace] form: CAP, Daily, Dosing Weight 73.295, kg, PRN Constipation, Start date: 08/07/15 11:09:00, Duration: 30 day, Stop date: 09/06/15 11:08:00Notes : (Same as: Colace) (Do Not Crush) Ibuprofen 400 mg, 1 Inactive tab, Route: 2014 [facility] PO, Drug form: TAB, ONCE, Dosing Weight 73.295, kg, PRN Headache 1-5, Start date: 08/06/15 21:10:00, Stop date: 08/06/15 21:10:00Notes : (Same as: Motrin) "Do Not Crush" Give with food. Lasix PO, Daily, 0 Active Refill(s) 2014 [facility] Rocephin 1 gm, Route: No Longer IVPB, Active 2014 [facility] [id number], Dosing Weight 73.295, kg, Start date: 08/06/15 9:00:00, Duration: 30 day, Stop date: 09/04/15 9:00:00Notes: (Same As: Rocephin). Use with 100 mL NS and infuse over 30 min MEDICATION WASTE Product Size: 1000 mg Product Wasted: ___ mg Lactulose 10 gm, 15 ml, Inactive Route: PO, 2014 [facility] Drug Form: SYRP, Dosing Weight 73.295, kg, ONCE, Start date: 08/06/15 3:49:00, Stop date: 08/06/15 3:49:00Notes: (Same as:Chronulac) Ondansetron 4 mg, 2 mL, No Longer Route: IVP, Active 2014 [facility] Drug form: INJ, Q6H, Dosing Weight 73.636, kg, PRN Nausea & Vomiting, Start date: 08/06/15 3:29:00, Duration: 30 day, Stop date: 09/05/15 3:28:00Notes: (Same as: Zofran) MEDICATION WASTE Product Size: 4 mg Product Wasted: ___ mg Acetaminophen 325 mg, 1 No Longer tab, Route: Active 2014 [facility] PO, Drug form: TAB, Q4H, Dosing Weight 73.636, kg, PRN Pain Score 4-6, Start date: 08/06/15 3:29:00, Duration: 30 day, Stop date: 09/05/15 3:28:00Notes: Do not exceed 4 gm/day. (Same as: Tylenol) Morphine 2 mg, Route: No Longer IVP, Q4H, Active 2014 [facility] Dosing Weight 73.636, kg, PRN Pain Score 7-10, Start date: 08/06/15 3:29:00, Duration: 30 day, Stop date: 09/05/15 3:28:00 Aspirin 325 mg, 1 No Longer tab, Route: Active 2014 [facility] PO, Drug form: ECTAB, Q24H, Dosing Weight 73.636, kg, Start date: 08/06/15 3:00:00, Duration: 30 day, Stop date: 09/04/15 3:00:00Notes: (Do Not Crush) Do not crush or chew. Saline Flush 10 mL, Route: No Longer 0.9% IVP, Drug Active 2014 [facility] Form: INJ, Dosing Weight 75.455, kg, PRN, PRN Line Flush, Start date: 08/05/15 19:05:00, Duration: 30 day, Stop date: 09/04/15 19:04:00Notes : (Same as: BD Posiflush) Docusate Sodium 100 mg=1 cap, Active 100 MG Oral PO, Daily, as 2013 [facility] Capsule needed for [Colace] constipation, # 20 cap, 0 Refill(s) gabapentin 300 300 mg=1 cap, Active MG Oral Capsule PO, BID, # 90 2013 cap, 0 Refill(s) tramadol 50 mg=1 tab, Active hydrochloride PO, Q6H, 2013 50 MG Oral Pain, # 40 Tablet tab, 0 Refill(s) Ibuprofen 400 400 mg, 1 No Longer MG Oral Tablet tab, Route: Active 2013 [facility] PO, Drug form: TAB, Q6H, Dosing Weight 64.545, kg, PRN as needed for pain, Start date: 04/19/14 14:09:00, Duration: 30 day, Stop date: 05/19/14 14:08:00Notes : (Same as: Motrin) "Do Not Crush" Give with food. Ibuprofen 600 mg, Inactive Route: PO, 2013 [facility] Q6H, Dosing Weight 64.545, kg, PRN Severe Pain, Start date: 04/19/14 14:09:00, Duration: 30 day, Stop date: 05/19/14 14:08:00 hydromorphone 0.5 mg, 0.5 No Longer mL, Route: Active 2013 [facility] IV, Drug form: INJ, Q2H, PRN Pain, Start date: 04/18/14 17:55:00, Duration: 30 day, Stop date: 05/18/14 17:54:00 Ibuprofen 600 mg, Inactive Route: PO, 2013 [facility] Q6H, Dosing Weight 64.545, kg, PRN as needed for pain, Start date: 04/18/14 17:02:00, Duration: 30 day, Stop date: 05/18/14 17:01:00 Docusate Sodium 100 mg, 1 No Longer 100 MG Oral cap, Route: Active 2013 [facility] Capsule PO, Drug form: CAP, BID, Dosing Weight 64.545, kg, Start date: 04/18/14 17:00:00, Duration: 30 day, Stop date: 05/18/14 9:00:00Notes: (Same as: Colace) (Do Not Crush) Ofirmev 1,000 mg, 100 Inactive mL, Route: 2013 [facility] IV, Drug form: INJ, Q6H, Dosing Weight 65.909, kg, for > or=50 kg, Start date: 04/18/14 12:00:00, Duration: 1 day, Stop date: 04/19/14 6:00:00Notes: Infuse over 15 minutes Do not exceed 4gm/day of acetaminophen Saline Flush 5 ml, Route: No Longer 0.9% IVP, Drug Active 2013 [facility] Form: INJ, Dosing Weight 64.545, kg, PRN, PRN Line Flush, Start date: 04/18/14 10:16:00, Duration: 30 day, Stop date: 05/18/14 10:15:00Notes : Same as: BD Posiflush Sterile Sodium Chloride 1,000 mL, No Longer 0.154 MEQ/ML Rate: 125 Active 2013 [facility] Injectable ml/hr, Infuse Solution over: 8 hr, Route: IV, Dosing Weight 64.545 kg, Total Volume: 1,000, Start date: 04/18/14 10:16:00, Duration: 30 day, Stop date: 05/18/14 10:15:00 Ondansetron 4 mg, 2 mL, No Longer Route: IVP, Active 2013 [facility] Drug form: INJ, Q6H, Dosing Weight 64.545, kg, PRN Nausea & Vomiting, Start date: 04/18/14 10:16:00, Duration: 30 day, Stop date: 05/18/14 10:15:00Notes : (Same as: Zofran) Acetaminophen 1 tab, Route: Inactive 325 MG / PO, Drug 2013 [facility] Hydrocodone Form: TAB, Bitartrate 5 MG Dosing Weight Oral Tablet 65.909, kg, Q4H, PRN Pain Score 1-3, Start date: 04/18/14 10:16:00, Duration: 30 day, Stop date: 05/18/14 10:15:00Notes : (Same as: [place] 325/5) Do not exceed 4gm/day of acetaminophen . Cefoxitin 2 gm, Route: No Longer IVPB, ONCALL, Active 2013 [facility] Dosing Weight 64.545, kg, Start date: 04/13/14 13:00:00, Duration: 30 day, Stop date: 05/13/14 12:59:00Notes : (Same As: Mefoxin) Naloxone 0.1 mg, Inactive Route: IVP, 2013 Q2MIN, Dosing Weight 65.909, kg, PRN Narcotic Reversal, Start date: 03/13/14 11:16:00, Duration: 4 doses or times, Stop date: Limited # of times Flumazenil 0.2 mg, Inactive Route: IVP, 2013 [facility] PRN, Dosing Weight 65.909, kg, PRN Other -See Comment, Start date: 03/13/14 11:16:00, Duration: 1 doses or times, Stop date: Limited # of times Sodium Chloride 1,000 mL, Inactive 0.154 MEQ/ML Rate: 25 2013 [facility] Injectable ml/hr, Infuse Solution over: 40 hr, Route: IV, Dosing Weight 65.909 kg, Total Volume: 1,000, Start date: 03/13/14 9:59:00, Duration: 30 day, Stop date: 04/12/14 9:58:00 Coconut oil Coconut oil, Active Refill(s) 0 2013 ibandronic acid 150 mg=1 tab, Active 150 MG Oral PO, qMonth, # 2013 [facility] Tablet [Boniva] 1 tab, 0 Refill(s) [...] Active 20 mg Orally Jus 2.16.840.1 daily .014449.4. 391 68 Gabapentin 1 capsule Orally Active 300 MG Orally Jus 2.16.840.1 twice a day .591365.4. (bid) 391 68 B-12 Unknown Sublingual Active 2500 MCG Jus 2.16.840.1 Sublingual .500742.4. 391 68 Ocuvite 1 tablet Orally Active Orally daily Jus 2.16.840.1 .292461.4. 391 68 Lasix 1 tablet Orally Active 40 MG Orally Jus 2.16.840.1 Once a day .174811.4. 68 Ciprofloxacin 5 ml Orally Active 500 MG/5ML Jus 2.16.840.1 (10%) Orally .517429.4. Twice a day Spironolactone 1 tablet Orally Active 25 MG Orally Jus 2.16.840.1 daily .800291.4. Caltrate 600+D 1 tablet with Orally Active 600-400 Jus 2.16.840.1 food MG-UNIT .435833.4. Orally Once a day Allergies, Adverse Reactions, Alerts Substance Category Reaction Severity Reaction Status Date Comments Source type Reported MORPHINE Drug MORPHINE allergy 2 Medical Group morphine<s Assertion Drug Active Data up>1</sup> allergy 2 migrated Medical from [facility] on 12/27/14. Originally documented as MORPHINE. Hallucinatio ns Adhesive Adverse rash Adverse Active 2.16.840. Tape Reaction Reaction 5 1.815968. 4.391.. 84837 Morphine Adverse Info Not Adverse Active 2.16.840. Sulfate Reaction Available Reaction 5 1.648663. 4.391.. 30466 morphine Assertion Drug Active allergy [place] Tape [...] 36.1 20.0 - 12 MH 40.0 /2016 [facility] HEMATOLOGY Eosinophils 1.2 0.0 - 4.0 08/03 [facility] HEMATOLOGY Monocytes 5.4 2.0 - 12.0 08/03 [facility] HEMATOLOGY Basophils 0.6 0.0 - 1.0 08/03 [facility] HEMATOLOGY Segs 56.7 45.0 - 12 MH 75.0 /2016 [facility] HEMATOLOGY Monocytes # 0.2 0.0 - 0.8 08/03 [facility] HEMATOLOGY Lymphocytes 1.0 1.0 - 5.5 08/03 MH # /2017 [facility] HEMATOLOGY Segs-Bands # 1.6 1.5 - 8.1 08/03 [facility] HEMATOLOGY MPV 9.2 7.4 - 10.4 08/03 [facility] HEMATOLOGY RDW 16.5 11.5 - 12 MH 14.5 [facility] HEMATOLOGY Platelet 62 133 - 450 12 [facility] HEMATOLOGY Hct 39.3 36.0 - 12 MH 48.0 /2017 [facility] HEMATOLOGY Hgb 13.2 12.0 - 12 MH 16.0 /2016 [facility] HEMATOLOGY RBC 4.14 4.20 - 12 MH 5.40 /2016 [facility] HEMATOLOGY MCH 31.9 27.0 - 12/ MH 31.0 /2016 [facility] HEMATOLOGY MCV 95.1 80.0 - 12 MH 98.0 /2016 [facility] HEMATOLOGY MCHC 33.6 32.0 - 12 MH 36.0 /2017 [facility] HEMATOLOGY WBC 2.8 3.7 - 10.4 08/03 [facility] CHEM PANEL eGFR 59 08/02 [facility] Comment: The [facility] eGFR is calculated using the CKD-EPI [...] Direct 0.3 0.0 - 0.3 12/ /2016 [facility] CHEM PANEL Bili 1.5 0.0 - 1.0 12/ MH Indirect /2016 [facility] CHEM PANEL A/G Ratio 0.5 0.7 - 1.6 08/02 /2016 [facility] CHEM PANEL Globulin 4.6 2.7 - 4.2 12/ /2016 [facility] HEMATOLOGY RBC 3.92 4.20 - 12 MH 5.40 /2016 [facility] HEMATOLOGY WBC 5.1 3.7 - 10.4 12 /2016 [facility] HEMATOLOGY Hgb 12.3 12.0 - 12 MH 16.0 /2016 [facility] HEMATOLOGY RDW 15.9 11.5 - 12 MH 14.5 /2016 [facility] HEMATOLOGY MCHC 33.4 32.0 - 12 MH 36.0 /2016 [facility] HEMATOLOGY MCH 31.3 27.0 - 12/ MH 31.0 /2016 [facility] HEMATOLOGY Hct 36.7 36.0 - 08/02 MH 48.0 /2016 [facility] HEMATOLOGY MCV 93.6 80.0 - 08/02 MH 98.0 /2016 [facility] HEMATOLOGY MPV 8.9 7.4 - 10.4 12 /2016 [facility] HEMATOLOGY Platelet 82 133 - 450 12 /2016 [facility] HEMATOLOGY INR 1.49 0.85 - 08/02 MH 1.17 /2016 [facility] HEMATOLOGY PT 18.1 12.0 - 08/02 MH 14.7 /2016 [facility] HEMATOLOGY PTT 33.0 22.9 - 12/ MH 35.8 /2017 [facility] HEMATOLOGY Segs-Bands # 2.6 1.5 - [...] ELECTROLYT eGFR 46 04/13 Result Comment: The [facility] eGFR is calculated using the CKD-EPI [...] 0.50 - 04/13 ES Lvl 1.40 /2016 [facility] ELECTROLYT BUN 13 7 - 22 04/13 ES /2016 [facility] ELECTROLYT Potassium 4.3 3.5 - 5.1 04/13 ES Lvl /2016 [facility] ELECTROLYT Sodium Lvl 142 135 - 145 04/13 ES [facility] ELECTROLYT Chloride Lvl 107 95 - 109 04/13 ES /2016 [facility] ELECTROLYT CO2 25 24 - 32 04/13 ES /2016 [facility] ELECTROLYT Calcium Lvl 9.3 8.5 - 10.5 04/13 ES [facility] ELECTROLYT Glucose Lvl 101 70 - 99 04/13 ES [facility] HEMATOLOGY Eosinophils 0.2 0.0 - 0.5 04/13 MH # /2016 [facility] HEMATOLOGY Basophils # 0.1 0.0 - 0.2 04/13 [facility] HEMATOLOGY Monocytes # 0.6 0.0 - 0.8 04/13 [facility] HEMATOLOGY Lymphocytes 1.8 1.0 - 5.5 04/13 MH # /2016 [facility] HEMATOLOGY Segs-Bands # 3.0 1.5 - 8.1 04/13 [facility] HEMATOLOGY Basophils 0.9 0.0 - 1.0 04/13 [facility] HEMATOLOGY Monocytes 10.4 2.0 - 12.0 04/13 [facility] HEMATOLOGY Eosinophils 3.0 0.0 - 4.0 04/13 [facility] HEMATOLOGY Segs 53.7 45.0 - 04/13 MH 75.0 /2017 [facility] HEMATOLOGY Lymphocytes 32.0 20.0 - 04/13 MH 40.0 /2017 [facility] HEMATOLOGY INR 1.27 0.85 - 04/13 MH 1.17 /2016 [facility] HEMATOLOGY PT 16.2 12.0 - 04/13 MH 14.7 /2016 [facility] HEMATOLOGY MPV 8.9 7.4 - 10.4 04/13 [facility] HEMATOLOGY RDW 15.4 11.5 - 04/13 MH 14.5 [facility] HEMATOLOGY Platelet 79 133 - 450 04/13 [facility] HEMATOLOGY MCH 32.2 27.0 - 04/13 MH 31.0 /2016 [facility] MCHC 33.3 32.0 - 04/13 MH 36.0 /2017 [facility] RBC 4.00 4.20 - 04/13 MH 5.40 /2016 [facility] HEMATOLOGY MCV 96.5 80.0 - 04/13 MH 98.0 /2017 [facility] HEMATOLOGY Hct 38.6 36.0 - 04/13 MH 48.0 /2016 [facility] Hgb 12.9 12.0 - 04/13 MH 16.0 [facility] WBC 5.6 3.7 - 10.4 04/13 [facility] HEMATOLOGY PTT 28.2 22.9 - 04/13 MH 35.8 /2017 [facility] ELECTROLYT AGAP 7.1 10.0 - 02/16 ES 20.0 [facility] ELECTROLYT eGFR 54 02/16 Result Comment: The [facility] eGFR is calculated using the CKD-EPI [...] Lvl 8.8 8.5 - 10.5 02/16 MH [facility] ELECTROLYT Chloride Lvl 107 95 - 109 02/16 ES [facility] ELECTROLYT CO2 30 24 - 32 02/16 [facility] ELECTROLYT Potassium 4.1 3.5 - 5.1 02/16 ES Lvl /2016 [facility] ELECTROLYT Glucose Lvl 75 70 - 99 02/16 ES [facility] ELECTROLYT BUN 11 7 - 22 02/16 [facility] ELECTROLYT Creatinine 0.95 0.50 - 02/16 ES Lvl 1.40 [facility] ELECTROLYT Sodium Lvl 140 135 - 145 02/16 [facility] HEMATOLOGY Hgb 13.0 12.0 - 02/16 16.0 [facility] HEMATOLOGY Hct 38.8 36.0 - 02/16 48.0 [facility] TUMOR CEA 11.8 0.0 - 3.0 02/16 MH [facility] CHEM PANEL A/G Ratio 0.6 0.7 - 1.6 08/07 [facility] CHEM PANEL AGAP 11.9 10.0 - 08/07 MH 20.0 [facility] CHEM PANEL Globulin 4.1 2.0 - 4.0 08/07 [facility] CHEM PANEL B/C Ratio 15 6 - 25 08/07 [facility] CHEM PANEL eGFR 61 08/07 [facility] Comment: The [facility] eGFR is calculated using the CKD-EPI [...] Magnesium 1.9 1.8 - 2.4 08/07 Lvl [facility] HEMATOLOGY MPV 8.8 7.4 - 10.4 08/07 [facility] HEMATOLOGY Platelet 54 133 - 450 08/07 [facility] HEMATOLOGY MCHC 33.1 32.0 - 12 MH 36.0 /2014 [facility] HEMATOLOGY RDW 14.7 11.5 - 08/07 MH 14.5 /2014 [facility] HEMATOLOGY MCV 97.0 80.0 - 08/07 MH 98.0 /2014 [facility] HEMATOLOGY MCH 32.1 27.0 - 12 MH 31.0 /2014 [facility] HEMATOLOGY RBC 3.54 4.20 - 12 MH 5.40 /2014 [facility] HEMATOLOGY WBC 3.6 3.7 - 10.4 08/07 [facility] HEMATOLOGY Hct 34.3 36.0 - 08/07 MH 48.0 [facility] HEMATOLOGY Hgb 11.4 12.0 - 12 MH 16.0 /2014 [facility] HEMATOLOGY Monocytes # 0.2 0.0 - 0.8 08/07 [facility] HEMATOLOGY Eosinophils 1.3 0.0 - 4.0 08/07 [facility] HEMATOLOGY Monocytes 7.0 2.0 - 12.0 08/07 [facility] HEMATOLOGY Lymphocytes 1.1 1.0 - 5.5 / MH # /2015 [facility] HEMATOLOGY Basophils 0.6 0.0 - 1.0 08/07 [facility] HEMATOLOGY Segs-Bands # 2.2 1.5 - 8.1 08/07 [facility] HEMATOLOGY Segs 61.3 45.0 - 08/07 MH 75.0 /2014 [facility] HEMATOLOGY Lymphocytes 29.8 20.0 - 08/07 MH 40.0 /2014 [facility] URINE AND UA Nitrite Negative Negative 08/06 STOOL (08/06/15 3:01 PM) /2014 [facility] URINE AND UA Leuk Est Large Negative 08/06 STOOL *ABN* /2014 [facility] (08/06/15 3:01 PM) URINE AND UA Blood Moderate Negative 08/06 STOOL *ABN* /2014 [facility] (08/06/15 3:01 PM) URINE AND UA Bili Negative Negative 08/06 STOOL *NA* /2014 [facility] (08/06/15 3:01 PM) URINE AND UA >=8.0 0.1 - 1.0 08/06 STOOL Urobilinogen * [facility] (08/06/15 3:01 PM) URINE AND UA Color Yellow Yellow 08/06 STOOL *NA* /2014 (08/06/15 3:01 PM) URINE AND UA Turbidity Cloudy Clear 08/06 STOOL *ABN* /2014 [facility] (08/06/15 3:01 PM) URINE AND UA Glucose Negative Negative 08/06 STOOL (08/06/15 3:01 PM) /2014 [facility] URINE AND UA Ketones Negative Negative 08/06 STOOL *NA* /2014 [facility] (08/06/15 3:01 PM) URINE AND UA Spec Grav 1.015 <=1.030 08/06 STOOL [facility] URINE AND UA pH 6.5 5.0 - 8.0 08/06 STOOL [facility] URINE AND UA Protein 30 mg/dL Negative 08/06 [facility] mg/dL /2014 [facility] URINE AND UA Sq Epi Few /LPF Few /LPF 08/06 STOOL [facility] URINE AND UA [place] Yeast Many /HPF None Seen 08/06 STOOL [...] Est Moderate Negative 08/06 STOOL *ABN* /2014 [facility] (08/05/15 10:40 PM) URINE AND UA [...] Color Yellow Yellow 08/06 STOOL *NA* /2014 [facility] (08/05/15 10:40 PM) URINE AND UA Protein Negative Negative 08/06 [facility] (08/05/15 10:40 PM) [facility] URINE AND UA pH 6.0 5.0 - 8.0 08/06 MH STOOL /2014 [facility] CARDIAC CK MB 5.3 0.5 - 3.6 08/06 ENZYMES /2014 [facility] CARDIAC Total CK 116 12 - 191 08/06 ENZYMES [facility] CARDIAC BNP 45 <=100 08/06 ENZYMES pg/mL /2014 [facility] CARDIAC Troponin-I <0.02 0.00 - 12 ENZYMES 0.40 /2014 [facility] CARDIAC CK MB Index 4.6 0.0 - 2.5 08/06 ENZYMES [facility] CHEM PANEL Ammonia 47.0 <=45.0 08/06 uMol/L /2014 [facility] CHEM PANEL Alk Phos 118 39 - 136 08/06 [facility] CHEM PANEL Total 7.4 6.4 - 8.4 08/06 Protein /2014 [facility] CHEM PANEL Calcium Lvl 8.5 8.5 - 10.5 08/06 [facility] CHEM PANEL eGFR 67 08/06 [facility] Comment: The [facility] eGFR is calculated using the CKD-EPI [...] Bili Total 1.0 0.2 - 1.3 08/06 [facility] CHEM PANEL A/G Ratio 0.6 0.7 - 1.6 08/06 [facility] CHEM PANEL ALT 21 0 - 65 08/06 [facility] CHEM PANEL Albumin Lvl 2.7 3.5 - 5.0 08/06 [facility] CHEM PANEL AST 27 0 - 37 08/06 [facility] CHEM PANEL AGAP 11.5 10.0 - 08/06 MH 20.0 /2014 [facility] CHEM PANEL Globulin 4.7 2.0 - 4.0 12/ /2014 [facility] CHEM PANEL B/C Ratio 14 6 - 25 12 [facility] CHEM PANEL BUN 11 7 - 22 08/06 [facility] CHEM PANEL Chloride Lvl 106 95 - 109 12 [facility] CHEM PANEL Creatinine 0.81 0.50 - 12 Lvl 1.40 /2014 [facility] CHEM PANEL Potassium 3.5 3.5 - 5.1 12 Lvl /2014 [facility] CHEM PANEL Sodium Lvl 140 135 - 145 12 [facility] CHEM PANEL CO2 26 24 - 32 12 [facility] CHEM PANEL Glucose Lvl 109 70 - 99 12 [facility] HEMATOLOGY MPV 9.1 7.4 - 10.4 08/06 [facility] HEMATOLOGY RDW 15.4 11.5 - 12 14.5 /2014 [facility] HEMATOLOGY Platelet 70 133 - 450 12 /2014 [facility] HEMATOLOGY MCHC 33.1 32.0 - 12 36.0 /2014 [facility] HEMATOLOGY MCH 32.1 27.0 - 12 31.0 /2014 [facility] HEMATOLOGY MCV 97.2 80.0 - 12/ 98.0 /2014 [facility] HEMATOLOGY Hct 36.5 36.0 - 12 48.0 /2014 [facility] HEMATOLOGY Hgb 12.1 12.0 - 12 16.0 /2014 [facility] HEMATOLOGY RBC 3.76 4.20 - 12 MH 5.40 /2014 [facility] HEMATOLOGY WBC 6.0 3.7 - 10.4 08/06 /2014 [facility] HEMATOLOGY Monocytes # 0.5 0.0 - 0.8 08/06 /2014 [facility] HEMATOLOGY Eosinophils 0.1 0.0 - 0.5 12/08 MH # /2015 [facility] HEMATOLOGY Lymphocytes 1.8 1.0 - 5.5 12/08 MH # /2015 [facility] HEMATOLOGY Basophils 0.6 0.0 - 1.0 08/06 /2014 [facility] HEMATOLOGY Segs-Bands # 3.6 1.5 - 8.1 08/06 /2014 [facility] HEMATOLOGY Monocytes 8.4 2.0 - 12.0 12/ /2014 [facility] HEMATOLOGY Eosinophils 2.0 0.0 - 4.0 / /2014 [facility] HEMATOLOGY Lymphocytes 29.3 20.0 - 12 MH 40.0 /2014 [facility] HEMATOLOGY Segs 59.7 45.0 - 12 [...] PANEL CO2 26 24 - 32 08/05 [facility] CHEM PANEL Glucose Lvl 93 70 - 99 08/05 [facility] CHEM PANEL Sodium Lvl 140 135 - 145 08/05 [facility] CHEM PANEL BUN 12 7 - 22 08/05 [facility] CHEM PANEL Creatinine 0.88 0.50 - 08/05 Lvl 1.40 [facility] CHEM PANEL eGFR 60 08/05 [facility] Comment: The [facility] eGFR is calculated using the CKD-EPI [...] Bili Total 0.9 0.2 - 1.3 08/05 [facility] CHEM PANEL Alk Phos 126 39 - 136 08/05 [facility] CHEM PANEL Albumin Lvl 2.7 3.5 - 5.0 08/05 [facility] CHEM PANEL ALT 22 0 - 65 08/05 [facility] CHEM PANEL AST 27 0 - 37 12 /2014 [facility] CHEM PANEL AGAP 11.8 10.0 - 12 MH 20.0 /2014 [facility] CHEM PANEL B/C Ratio 14 6 - 25 08/05 /2014 [facility] CHEM PANEL A/G Ratio 0.6 0.7 - 1.6 08/05 /2014 [facility] CHEM PANEL Globulin 4.6 2.0 - 4.0 08/05 [facility] HEMATOLOGY MPV 8.9 7.4 - 10.4 08/05 /2014 [facility] HEMATOLOGY RDW 15.3 11.5 - 08/05 MH 14.5 /2014 [facility] HEMATOLOGY Platelet 69 133 - 450 12 [facility] HEMATOLOGY Hct 37.6 36.0 - 08/05 MH 48.0 /2014 [facility] HEMATOLOGY MCHC 32.8 32.0 - 08/05 MH 36.0 /2014 [facility] HEMATOLOGY Hgb 12.4 12.0 - 08/05 MH 16.0 /2014 [facility] HEMATOLOGY MCV 96.5 80.0 - 08/05 98.0 /2014 [facility] HEMATOLOGY MCH 31.7 27.0 - 08/05 MH 31.0 /2014 [facility] HEMATOLOGY WBC 6.2 3.7 - 10.4 08/05 /2014 [facility] HEMATOLOGY RBC 3.90 4.20 - 08/05 MH 5.40 /2014 [facility] HEMATOLOGY Monocytes # 0.5 0.0 - 0.8 08/05 /2014 [facility] HEMATOLOGY Basophils 0.6 0.0 - 1.0 08/05 /2014 [facility] HEMATOLOGY Segs-Bands # 4.2 1.5 - 8.1 08/05 /2014 [facility] HEMATOLOGY Eosinophils 0.1 0.0 - 0.5 08/05 MH # /2014 [facility] HEMATOLOGY Lymphocytes 1.4 1.0 - 5.5 08/05 MH # /2014 [facility] HEMATOLOGY Lymphocytes 22.3 20.0 - 12 MH 40.0 /2014 [facility] HEMATOLOGY Monocytes 7.3 2.0 - 12.0 08/05 [facility] HEMATOLOGY Eosinophils 1.4 0.0 - 4.0 08/05 [facility] HEMATOLOGY Segs 68.4 45.0 - 08/05 MH 75.0 /2014 [facility] HEMATOLOGY Basophils 0.4 0.0 - 1.0 04/19 [facility] HEMATOLOGY Monocytes # 0.9 0.0 - 0.8 04/19 /2013 [facility] HEMATOLOGY Lymphocytes 1.0 1.0 - 5.5 04/19 MH # /2014 [facility] HEMATOLOGY Segs-Bands # 4.2 1.5 - 8.1 04/19 /2013 [facility] HEMATOLOGY Eosinophils 0.2 0.0 - 0.5 04/19 MH # /2013 [facility] HEMATOLOGY Eosinophils 2.7 0.0 - 4.0 04/19 /2013 [facility] HEMATOLOGY Monocytes 13.7 2.0 - 12.0 04/19 /2013 [facility] HEMATOLOGY Lymphocytes 16.6 20.0 - 04/19 MH 40.0 /2013 [facility] HEMATOLOGY Segs 66.6 45.0 - 04/19 MH 75.0 /2013 [facility] HEMATOLOGY MCHC 33.3 32.0 - 04/19 MH 36.0 /2013 [facility] HEMATOLOGY RDW 15.2 11.5 - 04/19 MH 14.5 /2013 [facility] HEMATOLOGY MCH 32.3 27.0 - 04/19 MH 31.0 /2013 [facility] HEMATOLOGY MCV 96.9 80.0 - 04/19 98.0 /2013 [facility] HEMATOLOGY Hct 30.1 36.0 - 04/19 MH 48.0 /2013 [facility] HEMATOLOGY Platelet 67 133 - 450 04/19 /2013 [facility] HEMATOLOGY MPV 8.4 7.4 - 10.4 04/19 /2013 [facility] HEMATOLOGY Hgb 10.0 12.0 - 04/19 16.0 /2013 [facility] HEMATOLOGY RBC 3.11 4.20 - 04/19 MH 5.40 /2013 [facility] WBC 6.3 3.7 - 10.4 04/19 [facility] CHEM PANEL Globulin 4.8 2.0 - 4.0 04/13 [facility] CHEM PANEL A/G Ratio 0.6 0.7 - 1.6 04/13 [facility] CHEM PANEL AGAP 13.4 10.0 - 04/13 MH 20.0 [facility] CHEM PANEL B/C Ratio 9 6 - 25 04/13 [facility] CHEM PANEL eGFR 59 04/13 <sup>1</sup>R esult [facility] Comment: The eGFR is calculated using [...] Albumin Lvl 2.9 3.5 - 5.0 04/13 [facility] CHEM PANEL ALT 23 0 - 65 04/13 [facility] CHEM PANEL AST 44 0 - 37 04/13 [facility] CHEM PANEL Alk Phos 122 39 - 136 04/13 [facility] CHEM PANEL Total 7.7 6.4 - 8.4 04/13 [facility] CHEM PANEL Bili Total 1.5 0.2 - 1.3 04/13 [facility] CHEM PANEL Sodium Lvl 144 135 - 145 04/13 [facility] CHEM PANEL Potassium 3.4 3.5 - 5.1 04/13 Lvl [facility] CHEM PANEL Chloride Lvl 106 95 - 109 04/13 [facility] CHEM PANEL CO2 28 24 - 32 04/13 [facility] CHEM PANEL Calcium Lvl 8.8 8.5 - 10.5 04/13 [facility] CHEM PANEL Creatinine 0.9 0.5 - 1.4 04/13 Lvl [facility] CHEM PANEL Glucose Lvl 71 70 - 99 04/13 <sup>2</sup>I nterpretive [facility] Data: Adult reference range values reflect the clinical guidelines
of the [place] [employer]. CHEM PANEL BUN 8 7 - 22 04/13 [facility] CHEM PANEL A/G Ratio 0.6 0.7 - 1.6 04/13 [facility] CHEM PANEL Globulin 4.8 2.0 - 4.0 04/13 [facility] CHEM PANEL Bili 0.8 0.0 - 1.0 04/13 [facility] CHEM PANEL ALT 23 0 - 65 04/13 [facility] CHEM PANEL Alk Phos 122 39 - 136 04/13 [facility] CHEM PANEL AST 45 0 - 37 08 /2013 [facility] CHEM PANEL Bili Direct 0.5 0.0 - 0.3 04/13 /2013 [facility] CHEM PANEL Bili Total 1.3 0.2 - 1.3 04/13 [facility] CHEM PANEL Total 7.7 6.4 - 8.4 04/13 Protein /2013 [facility] CHEM PANEL Albumin Lvl 2.9 3.5 - 5.0 04/13 /2013 [facility] HEMATOLOGY MCH 32.1 27.0 - 08 MH 31.0 /2013 [facility] HEMATOLOGY RDW 14.6 11.5 - 08 MH 14.5 /2013 [facility] HEMATOLOGY MCHC 33.1 32.0 - 08 36.0 /2013 [facility] HEMATOLOGY Platelet 76 133 - 450 04/13 /2013 [facility] HEMATOLOGY RBC 3.79 4.20 - 04/13 MH 5.40 /2013 [facility] HEMATOLOGY Hct 36.7 36.0 - 04/13 48.0 /2013 [facility] HEMATOLOGY MCV 97.0 81.0 - 04/13 99.0 /2013 [facility] HEMATOLOGY Hgb 12.1 12.0 - 04/13 16.0 /2013 [facility] HEMATOLOGY WBC 4.6 3.7 - 10.4 04/13 /2013 [facility] HEMATOLOGY MPV 8.9 7.4 - 10.4 04/13 /2013 [facility] HEMATOLOGY Segs 52.6 45.0 - 04/13 75.0 /2013 [facility] HEMATOLOGY Monocytes # 0.6 0.0 - 0.8 04/13 /2013 [facility] HEMATOLOGY Eosinophils 0.1 0.0 - 0.5 04/13 MH # /2014 [facility] HEMATOLOGY Basophils 1.0 0.0 - 1.0 04/13 /2013 [facility] HEMATOLOGY Segs-Bands # 2.4 1.5 - 8.1 04/13 /2013 [facility] HEMATOLOGY Lymphocytes 1.5 1.0 - 5.5 04/13 MH # /2014 [facility] HEMATOLOGY Lymphocytes 32.1 20.0 - 08 MH 40.0 /2013 [facility] HEMATOLOGY Monocytes 12.2 2.0 - 12.0 04/13 /2013 [facility] HEMATOLOGY Eosinophils 2.1 0.0 - 4.0 04/13 /2013 [facility] CHEM PANEL AST 43 0 - 37 07 /2013 [facility] CHEM PANEL Albumin Lvl 2.9 3.5 - 5.0 03/06 MH [facility] CHEM PANEL Total 7.7 6.4 - 8.4 / MH Protein /2013 [facility] CHEM PANEL Bili Direct 0.5 0.0 - 0.3 03/06 MH [facility] CHEM PANEL Alk Phos 137 39 - 136 / MH [facility] CHEM PANEL Bili Total 1.4 0.2 - 1.3 03/06 [facility] CHEM PANEL ALT 22 0 - 65 / MH [facility] CHEM PANEL Bili 0.9 0.0 - 1.0 / MH Indirect /2013 [facility] CHEM PANEL Globulin 4.8 2.0 - 4.0 03/06 MH [facility] CHEM PANEL A/G Ratio 0.6 0.7 - 1.6 03/06 [facility] ELECTROLYT AGAP 8.9 10.0 - 07/ MH ES 20.0 /2013 [facility] ELECTROLYT eGFR 59 07 <sup>1</sup>R MH ES esult [facility] Comment: The eGFR is calculated using [...] 28 24 - 32 / MH ES [facility] ELECTROLYT Calcium Lvl 8.7 8.5 - 10.5 03/06 MH ES [facility] ELECTROLYT BUN 9 7 - 22 / MH ES [facility] ELECTROLYT Creatinine 0.9 0.5 - 1.4 / MH ES Lvl /2013 [facility] ELECTROLYT Sodium Lvl 140 135 - 145 03/06 MH [facility] ELECTROLYT Potassium 3.9 3.5 - 5.1 03/06 ES Lvl /2013 [facility] ELECTROLYT Chloride Lvl 107 95 - 109 03/06 [facility] ELECTROLYT Glucose Lvl 84 70 - 99 03/06 <sup>2</sup>I nterpretive [facility] Data: Adult reference range values reflect the clinical guidelines
of the [place] [employer]. HEMATOLOGY Hgb 11.9 12.0 - 03/06 16.0 /2013 [facility] HEMATOLOGY Hct 35.2 36.0 - 03/06 48.0 /2013 [facility] HEMATOLOGY Platelet 80 133 - 450 03/06 [facility] HEMATOLOGY WBC 4.4 3.7 - 10.4 03/06 [facility] HEMATOLOGY PT 15.9 12.0 - 03/06 14.7 [facility] HEMATOLOGY INR 1.29 0.85 - 03/06 <sup>3</sup>I 1.17 nterpretive [facility] Data: RECOMMENDED RANGES FOR PROTIME INR:
2.0-3.0 for most medical and surgical thromboemboli c states.
2.5-3.5 for artificial heart valves and recurrent embolism.<br/ >
INR SHOULD BE USED ONLY FOR PATIENTS ON STABLE ANTICOAGULANT THERAPY. HEMATOLOGY PTT 32.6 22.9 - 03/06 <sup>4</sup>I 35.8 /2013 nterpretive [facility] Data: Heparin Therapeutic Range: 57 - 92 Seconds TUMOR CEA 12.2 0.0 - 3.0 03/06 [facility] Pathology Reports No Data Provided for This Section Diagnostic Reports Report Value Date Source Renal pyelogram Patient Name: EDGARD DÍAZ 08/03/2017 [facility] retrograde DX : 1930; Age: 86 years Female MR: [id number] Study: Renal pyelogram retrograde DX 08/03/2017 3:09 PM [employer] CLINICAL INDICATION: bilateral lithotripsy Bilateral stent placement - Fluoro time 2.22 min Dose 17.35 mgy C #3 OR 4 COMPARISON: None FINDINGS: Limited intraoperative fluoroscopic images provided for retrograde pyelography. Contrast administration demonstrates moderate bilateral hydronephrosis. Subsequently bilateral ureteral stents were placed. Refer to operative report for full details. SL: BRUNA-M PET CT Colorectal CA Patient Name: EDGARD DÍAZ 03/04/2017 [facility] restaging : 1930; Age: 86 years y/o Female MR: [id number] Study: PET CT Colorectal CA restaging 03/04/2017 [...] urinary bladder suspicious for chronic cystitis. SL: [id number] Carotid artery Doppler CAROTID DOPPLER 08/06/2015 [facility] US HISTORY: Mental status changes. Encephalopathy. TECHNIQUE: [...] Chest 1view DX Chest one view: 08/05/2015 [facility] COMPARISON: 04/19/2014 FINDINGS: Limited AP portable [...] CT PROCEDURE: Brain wo contrast CT 08/05/2015 [facility] REASON FOR EXAM: pt from IV [...] 2 views EXAM: Chest 2 views 04/19/2014 [facility] DATE: Apr 19, 2014 09:48:02 AM [...] PET CT Colorectal CA PET/CT SCAN: 03/24/2014 [facility] restaging TECHNIQUE: 14 mCi of FDG [...] hypertension. SL:[address] Colorectal CA 09/14/2013 [facility] restaging EXAM: PET/CT HISTORY: Colon cancer, [...] Comments Source Systolic (mm Hg) 125 08/03/2017 [facility] Diastolic (mm Hg) 71 08/03/2017 [facility] Systolic (mm Hg) 129 08/03/2017 [facility] Diastolic (mm Hg) 66 08/03/2017 [facility] Systolic (mm Hg) 128 08/03/2017 [facility] Diastolic (mm Hg) 59 08/03/2017 [facility] Respitory Rate 16 08/03/2017 [facility] Respitory Rate 11 08/03/2017 [facility] Respitory Rate 9 08/03/2017 [facility] Temperature Oral (F) 97.3 F 08/02/2017 [facility] Heart Rate 70 08/02/2017 [facility] BMI Calculated 27.18 08/02/2017 [facility] Height 165.1 cm 08/02/2017 [facility] Weight 74.091 08/02/2017 [facility] Systolic (mm Hg) 99 04/21/2017 [facility] Diastolic (mm Hg) 56 04/21/2017 [facility] Respitory Rate 18 04/21/2017 [facility] Respitory Rate 18 04/21/2017 [facility] Systolic (mm Hg) 114 04/21/2017 [facility] Diastolic (mm Hg) 58 04/21/2017 [facility] Systolic (mm Hg) 109 04/21/2017 [facility] Diastolic (mm Hg) 56 04/21/2017 [facility] Respitory Rate 12 04/21/2017 [facility] Height 165.1 cm 04/13/2017 [facility] Weight 74.545 04/13/2017 [facility] BMI Calculated 27.35 04/13/2017 [facility] Temperature Oral (F) 97.4 F 04/13/2017 [facility] Heart Rate 80 04/13/2017 [facility] Systolic (mm Hg) 118 02/23/2017 [facility] Diastolic (mm Hg) 61 02/23/2017 [facility] Respitory Rate 32 02/23/2017 [facility] Respitory Rate 28 02/23/2017 [facility] Systolic (mm Hg) 109 02/23/2017 [facility] Diastolic (mm Hg) 60 02/23/2017 [facility] Systolic (mm Hg) 109 02/23/2017 [facility] Diastolic (mm Hg) 61 02/23/2017 [facility] Respitory Rate 23 02/23/2017 [facility] Temperature Oral (F) 97.4 F 02/16/2017 [facility] Heart Rate 72 02/16/2017 [facility] BMI Calculated 28.02 02/16/2017 [facility] Weight 76.364 02/16/2017 [facility] Height 165.1 cm 02/16/2017 [facility] Weight 159 08/12/2015 [id number]. [id number] Height 64.4 08/12/2015 [id number]. [id number] Temperature Oral (F) 97.6 F 08/12/2015 [id number]. [id number] Heart Rate 93 08/12/2015 [id number]. [id number] Diastolic (mm Hg) 63 08/12/2015 [id number]. [id number] Systolic (mm Hg) 114 08/12/2015 [id number]. [id number] Systolic (mm Hg) 102 08/07/2015 [facility] Diastolic (mm Hg) 66 08/07/2015 [facility] Temperature Oral (F) 97.6 F 08/07/2015 [facility] Respitory Rate 16 08/07/2015 [facility] Heart Rate 77 08/07/2015 [facility] Respitory Rate 15 08/07/2015 [facility] Temperature Oral (F) 97.4 F 08/07/2015 [facility] Heart Rate 81 08/07/2015 [facility] Systolic (mm Hg) 100 08/07/2015 [facility] Diastolic (mm Hg) 66 08/07/2015 [facility] Systolic (mm Hg) 115 08/07/2015 [facility] Diastolic (mm Hg) 73 08/07/2015 [facility] Heart Rate 83 08/07/2015 [facility] Respitory Rate 16 08/07/2015 [facility] Temperature Oral (F) 97.4 F 08/07/2015 [facility] BMI Calculated 26.89 08/06/2015 [facility] Weight [...] 16 04/20/2014 [facility] Heart Rate 92 04/20/2014 [facility] Temperature Oral (F) 98.2 F 04/20/2014 [facility] Systolic (mm Hg) 109 04/20/2014 [facility] Diastolic (mm Hg) 70 04/20/2014 [facility] Heart Rate 90 04/20/2014 [facility] Temperature Oral (F) 97.9 F 04/20/2014 [...] 03/13/2014 [facility] Systolic (mm Hg) 113 03/13/2014 [facility] Diastolic (mm Hg) 54 03/13/2014 [facility] Temperature Oral (F) 97.6 F 03/06/2014 [facility] Height 165.1 cm 03/06/2014 [facility] Weight 65.909 03/06/2014 [facility] BMI Calculated 24.18 03/06/2014 [facility] Weight 149 02/02/2014 [facility] Temperature [...] Number For Provider Date Date Visit Outpatient [id number] COLON PING NORMAN 09/14 Active [facility] Outpatient [id number] 153.9 PING NORMAN 09/20 Active [facility] [id number] [facility] 03/13 [employer] Outpatient 0 [facility] Office [id number] Dakota Michele, 03/23 03/[address] [id number] General Surgery 350 [facility] Outpatient [id number] Ping Norman 03/24 03/[address] [facility] Lab Report [id number] Dakota Michele, 03/26 03/26 [place] [id number] [facility] Lab Report [id number] odoros 04/12 04/12 [place] 14783 ian Medical MD [facility] OBS [id number] Dakota Michele 04/18 04/20 [place] Observation [facility] Office [id number] Dakota Michele, 04/27 04/27 [place] Visit [id number] [facility] SE General Surgery [facility] [id number] Ping Norman 08/05 09/04 [place] Recurring [facility] OBS [id number] Van 08/06 08/07 [place] Observation 3 [facility] [id number] 08/12 08/12 2.16.840 Medical [id number] /2014 .[id number] Group [id number] Outpatient [id number] [facility] [place] [facility] [id number] [facility] 10/15 Active [facility] 1 VOLOYIAN [place] Outpatient [id number] [facility] Active [facility] 3 VOLOY [place] [facility] [id number] [facility]/23 Active [facility] 2 VOL [facility] [id number] [facility]/23 02/23 [place] Outpatient 4 Volian /2016 [facility] Outpatient [id number] [facility] 03/04 03/05 [employer] 5 Voloyiannis /2016 [facility] Outpatient [id number] [facility] 03/30 [facility] [place] [facility]patient [id number] [facility]21 [facility] VOLOY [facility] Surgery [id number] [facility] 04/21 04/21 [place] 7 Voloyiannis /2016 [facility] Outpatient [id number] ROMAN FOSTER 05/12 [facility] [place] Outpatient [id number] NINO NH[facility] 05/17 [facility] [place] Outpatient [id number] NURSE VISIT 06/22 [facility] [id number] [facility] 08/03 08/03 [employer] [facility] Outpatient [id number] NINO WILSON 08/26 [facility] [place] Outpatient [id number] JOVANA CUI 08/26 [facility] Ambulatory [id number] Jovana Kalri 08/26 08/26 Urology [facility] Outpatient [id number] [facility] 08/26 08/27 U[facility] Outpatient [id number] [facility] 09/27 [facility] Outpatient [id number] N[facility] 09/27 09/28 Urology [facility] Outpatient [id number] N[facility] 01/14 [facility] Ambulatory [id number] [facility] 01/14 01/14 Urology Pre[facility]Reg [facility] Procedures Procedure Code Date Perfomer Comments Source Cystourethroscopy, 53481 Medical with removal of 7 Group foreign body, calculus, or ureteral stent from urethra or bladder (separate procedure); simple Hernia repair [id number] Medical 4 Group,[facility] Cannulation of [id number] Medical [facility] [facility] Cardiac [id number] 1994 Medical catheterization<sup>1 Group, </sup> [facility] Cataract extraction [id number] Medical and insertion of Group, intraocular lens [facility] Cholecystectomy [id number] Medical Group,[facility] Colonoscopy [id number] Medical Group,[facility] Hysterectomy [id number] Medical Group,[facility] Knee [id number] 2011 Medical replacement<sup>2</red Group, p> [facility] Operation [id number] Medical Group,[facility] Partial resection of [id number] Medical colon Group,[facility] Assessment and Plan Assessment and Plan Date Source Extracted from:Title: History and Physical 08/03/2017 [facility] Author: Nino Wilson MD Date: 08/03/17 Renal calculi Extracted from:Title: Clinical Document 04/21/2017 [facility] Author: Galdino Ureña MD Date: 04/21/17 PREOPERATIVE DIAGNOSIS: Personal history of colon cancer. POSTOPERATIVE DIAGNOSIS: Personal history of colon cancer. PROCEDURE: Port-A-Cath removal. SURGEON: Dr. Ureña. CHIEF CATALYST OPERATOR: None. ANESTHESIA: General. IV FLUIDS: 200 [...] We placed a 2- 0 Vicryl in ywopos-uz-utspj fashion at the site of the Port-A-Cath [...] the patients satisfaction Extracted from:Title: preop 02/23/2017 [facility] Author: Roman Foster, MPH, PA-C Date: [...] and Dr. Galdino Ureña, who provided a qukt-yp-pnjt visit and performed the physical exam, assessment and plan, and the note transcribed by Roman Mason total exam time, coordination of care, education >20 minutes [3] Extracted from:Title: Clinical Document 08/07/2015 [facility] Author: Van Luu MD Date: 08/06/15 Chart reveiwed. Patient seen and examined. WIll continue to follow. Extracted from:Title: Clinical Document 04/20/2014 [facility] Author: Dakota Michele MD Date: 04/19/14 Surgery Progress Note Attending: Dakota Michele MD Service: Plastic Surgery Service Code status: None Specified=FULL CODE Reason for Admission: 553.2 Working DRG: None Documented Isolation: None Documented Consulting Physicians: Dakota Michele MD Office: MSO: [id number] Service: General Surgery SUBJECTIVE: Doing OK. Still [...] Present Illness: Oncologist - Dr. Marlyn Norman; Transport Truck Driver - Dr. Angel Mike ............Sharifa Tatum March [...] [facility] HERNIA WITHOUT MENTION OBSTRUCTION/GANGRENE (ICD-553.1) ( [id number]) Assessment: Unchanged Will offer repair as she desires intervention Wll request cardiac clearance Onel with this latest PET to reaffirt cancer free state Discussed case with referring MD Orders: Office Visit, [facility] III - 08107 (CPT-[id number]) Problem # 2: CARCINOMA, ASCENDING COLON (ICD-153.6) (GBL23-Q34.2) Assessment: Improved Post excision and allears to be disease free Orders: Office Visit, [facility] Level III - 90400 (CPT-[id number]) Patient Instructions: 1) Cardiac eval for pre [...] on: 08/03/17 Social History ElementQualifiersDate Reported 08/12/2015 [id number] Tobacco Use: .54155 . Are you a: never smoker Aug [...]
--- OUTSIDE RECORDS SUMMARY | 2019-05-05 08:39 | XMS REPORT | CCD ---
:1930 Author Organization [facility] Care Team Providers Name Role Phone Marlyn Ceballos Consulting Provider Allergies, Adverse Reactions, Alerts Substance Reaction Status morphine Active Problem List Condition Effective Dates Status CAD - Coronary artery disease Active Cancer of colon 05/10/2011 Active Cirrhosis of liver Active Esophageal varices Active Hepatitis C Active Pneumonia Active
--- OUTSIDE RECORDS SUMMARY | 2019-05-05 08:39 | XMS REPORT | CCD ---
:[address] [facility] Care Team Providers Name Role Phone Marlyn Ceballos Referring Provider Allergies, Adverse Reactions, Alerts Substance Reaction Status morphine Active Problem List Condition Effective Dates Status CAD - Coronary artery disease Active Cancer of colon 05/10/2011 Active Cirrhosis of liver Active Esophageal varices Active Hepatitis C Active Pneumonia Active
--- OUTSIDE RECORDS SUMMARY | 2019-05-05 08:40 | XMS REPORT | Continuity of Care Document ---
:1930 Author Organization [facility] Care Team Providers Name Role Phone MD Michele Hoang Unavailable Unavailable Insurance Providers Payer name Policy type / Policy ID Covered democrat ID Policy [place] Coverage type MEDIC[place]: [employer] AARP HEALTHCARE OPTIONS (MEDICARE SUPPLEMENT AARP HEALTHCARE [...] Location Date Lab Report Dakota Michele MD [facility] [place] Mar 26, 2014 Allergies, Adverse Reactions, Alerts [...]
--- OUTSIDE RECORDS SUMMARY | 2019-05-05 08:40 | XMS REPORT | Continuity of Care Document ---
:1930 Author Organization [facility] Care Team Providers Name Role Phone MD Michele Hoang Unavailable Unavailable Insurance Providers Payer name Policy type / Policy ID Covered democrat ID Policy [place] Coverage type MEDIC[place]: [employer] AARP HEALTHCARE OPTIONS (MEDICARE SUPPLEMENT AARP HEALTHCARE [...] Location Date Office Visit Dakota Michele MD [facility] Mar 23, 2014 Surgery [...]
--- OUTSIDE RECORDS SUMMARY | 2019-05-05 08:41 | XMS REPORT | Continuity of Care Document ---
:1930 Author Organization [facility] Care Team Providers Name Role Phone MD Niranjan, Galdino Unavailable Unavailable Insurance Providers Payer name Policy type / Policy ID Covered green party ID Policy Montoya Coverage type MEDICARE [place]: [id number] AARP HEALTHCARE OPTIONS (MEDICARE SUPPLEMENT AARP HEALTHCARE [...] Location Date Lab Report Galdino Ureña MD [facility] Apr 12, 2014 Allergies, Adverse Reactions, Alerts [...]
--- OUTSIDE RECORDS SUMMARY | 2019-05-05 08:41 | XMS REPORT | Continuity of Care Document ---
:1930 Author Organization [facility] Care Team Providers Name Role Phone MD Michele Hoang Unavailable Unavailable Insurance Providers Payer name Policy type / Policy ID Covered republican ID Policy Montoya Coverage type MEDICARE B-[place]: [employer] AARP HEALTHCARE OPTIONS (MEDICARE SUPPLEMENT AARP HEALTHCARE [...] [facility] Apr 27, 2014 Surgery 350 [...]
--- OUTSIDE RECORDS SUMMARY | 2019-05-05 08:41 | XMS REPORT ---
:1930 Author Organization [facility] Address [address] [place] [address] [address]. [address] [place] [address] Care Team Providers Name Role Phone MARY [...] Value Reference Range Comments ALPHA-FETOPROTEIN (BEAKER) (test jsrf=6320) 2.9 ng/mL <10.0 HEPATIC FUNCTION [id number] 16:38:00 Test Item Value Reference Range Comments TOTAL PROTEIN (BEAKER) (test dtqa=781) 9.0 gm/dL 6.0-8.3 ALBUMIN (BEAKER) (test xpfr=9527) 2.8 g/dL 3.5-5.0 BILIRUBIN TOTAL (BEAKER) (test fkqe=160) 1.2 mg/dL 0.2-1.2 BILIRUBIN DIRECT (BEAKER) (test riwa=732) 0.7 mg/dL 0.1-0.5 ALKALINE PHOSPHATASE (BEAKER) (test ckxn=442) 111 U/L 40-150 AST (SGOT) (BEAKER) (test cfwl=418) 31 U/L 5-34 ALT (SGPT) (BEAKER) (test ybrr=434) 12 U/L 6-55 BASIC METABOLIC [id number] 16:38:00 Test Item Value Reference Range Comments SODIUM (BEAKER) (test 133 meq/L 136-145 cpvz=912) POTASSIUM (BEAKER) (test 4.0 meq/L 3.5-5.1 jsfd=815) CHLORIDE (BEAKER) (test 100 meq/L 98-107 mlcq=908) CO2 (BEAKER) (test 27 meq/L 22-29 spgy=795) BLOOD UREA NITROGEN 20 mg/dL 7-21 (BEAKER) (test xlqn=968) CREATININE (BEAKER) (test 1.07 mg/dL 0.57-1.25 xecj=955) GLUCOSE RANDOM (BEAKER) 71 mg/dL 70-105 (test vbqk=039) CALCIUM (BEAKER) (test 9.4 mg/dL 8.4-10.2 afss=017) EGFR (BEAKER) (test 49 mL/min/1.73 sq m ESTIMATED GFR IS NOT dbhx=5361) ACCURATE CREATININE CLEARANCE IN PREDICTING GLOMERULAR FILTRATION RATE. ESTIMATED GFR IS NOT APPLICABLE FOR DIALYSIS PATIENTS. [id number] 16:33:00 Test Item Value Reference Range Comments AMMONIA (BEAKER) (test jkmz=040) 40 mol/L 18-72 PROTHROMBIN [id number] 16:29:00 Test Item Value Reference Range Comments PROTIME (BEAKER) (test vhvd=995) 16.5 seconds 11.7-14.7 INR (BEAKER) (test tgak=345) 1.3 <=5.9 RECOMMENDED COUMADIN/WARFARIN INR THERAPY RANGESSTANDARD DOSE: 2.0 - 3.0 Includes: PROPHYLAXIS forvenous thrombosis, systemic embolization; TREATMENT for venous thrombosis and/or pulmonary embolus.HIGH RISK: Target INR is 2.5-3.5 for patients with mechanical heart valves.CBC W/PLT COUNT & AUTO [id number] 16:22:00 Test Item Value Reference Range Comments WHITE BLOOD CELL COUNT (BEAKER) (test buyk=738) 5.0 K/ L 3.5-10.5 RED BLOOD CELL COUNT (BEAKER) (test duoo=687) 3.39 M/ L 3.93-5.22 HEMOGLOBIN (BEAKER) (test eyut=902) 10.7 GM/DL 11.2-15.7 HEMATOCRIT (BEAKER) (test csrj=574) 33.1 % 34.1-44.9 MEAN CORPUSCULAR VOLUME (BEAKER) (test ycan=810) 97.6 fL 79.4-94.8 MEAN CORPUSCULAR HEMOGLOBIN (BEAKER) (test 31.6 pg 25.6-32.2 orlr=907) MEAN CORPUSCULAR HEMOGLOBIN CONC (BEAKER) (test 32.3 GM/DL 32.2-35.5 sxsk=654) RED CELL DISTRIBUTION WIDTH (BEAKER) (test 15.0 % 11.7-14.4 lqvm=894) PLATELET COUNT (BEAKER) (test cmyn=717) 98 K/CU MM 150-450 MEAN PLATELET VOLUME (BEAKER) (test ibgv=048) 10.0 fL 9.4-12.3 NUCLEATED RED BLOOD CELLS (BEAKER) (test 0 /100 WBC 0-0 keuz=452) NEUTROPHILS RELATIVE PERCENT (BEAKER) (test 71 % mqgd=445) LYMPHOCYTES RELATIVE PERCENT (BEAKER) (test 14 % teff=806) MONOCYTES RELATIVE PERCENT (BEAKER) (test 12 % aqxi=966) EOSINOPHILS RELATIVE PERCENT (BEAKER) (test 2 % fpov=655) BASOPHILS RELATIVE PERCENT (BEAKER) (test 1 % tgdx=775) NEUTROPHILS ABSOLUTE COUNT (BEAKER) (test 3.51 K/ L 1.56-6.13 gzdg=936) LYMPHOCYTES ABSOLUTE COUNT (BEAKER) (test 0.69 K/ L 1.18-3.74 ijcu=689) MONOCYTES ABSOLUTE COUNT (BEAKER) (test siiq=705) 0.62 K/ L 0.24-0.36 EOSINOPHILS ABSOLUTE COUNT (BEAKER) (test 0.10 K/ L 0.04-0.36 bwmq=322) BASOPHILS ABSOLUTE COUNT (BEAKER) (test ghth=991) 0.04 K/ L 0.01-0.08 IMMATURE GRANULOCYTES-RELATIVE PERCENT (BEAKER) 0 % 0-1 (test absm=6468) ALPHA FETOPROTEIN (AFP), TUMOR [id number] 17:15:00 Test Item Value Reference Range Comments ALPHA-FETOPROTEIN (BEAKER) (test ymhn=0740) 3.3 ng/mL <10.0 [id number] 16:34:00 Test Item Value Reference Range Comments MAGNESIUM (BEAKER) (test esxa=971) 1.8 mg/dL 1.6-2.6 BASIC METABOLIC [id number] 16:34:00 Test Item Value Reference Range Comments SODIUM (BEAKER) (test 133 meq/L 136-145 qiob=049) POTASSIUM (BEAKER) (test 3.9 meq/L 3.5-5.1 sccv=652) CHLORIDE (BEAKER) (test 99 meq/L 98-107 pacj=091) CO2 (BEAKER) (test 25 meq/L 22-29 bxif=010) BLOOD UREA NITROGEN 12 mg/dL 7-21 (BEAKER) (test ryrn=674) CREATININE (BEAKER) (test 0.97 mg/dL 0.57-1.25 dhzw=967) GLUCOSE RANDOM (BEAKER) 93 mg/dL 70-105 (test cbqa=387) CALCIUM (BEAKER) (test 9.0 mg/dL 8.4-10.2 phzv=322) EGFR (BEAKER) (test 54 mL/min/1.73 sq m ESTIMATED GFR IS NOT ofyf=6209) ACCURATE CREATININE CLEARANCE IN PREDICTING GLOMERULAR FILTRATION RATE. ESTIMATED GFR IS NOT APPLICABLE FOR DIALYSIS PATIENTS. Specimen slightly ictericHEPATIC FUNCTION [id number] 16:34:00 Test Item Value Reference Range Comments TOTAL PROTEIN (BEAKER) (test dazh=212) 8.0 gm/dL 6.0-8.3 ALBUMIN (BEAKER) (test fpri=1707) 3.0 g/dL 3.5-5.0 BILIRUBIN TOTAL (BEAKER) (test tryu=953) 1.9 mg/dL 0.2-1.2 BILIRUBIN DIRECT (BEAKER) (test armi=368) 0.8 mg/dL 0.1-0.5 ALKALINE PHOSPHATASE (BEAKER) (test luof=440) 122 U/L 40-150 AST (SGOT) (BEAKER) (test long=660) 30 U/L 5-34 ALT (SGPT) (BEAKER) (test rdob=811) 12 U/L 6-55 Specimen slightly ictericPROTHROMBIN [id number] 16:17:00 Test Item Value Reference Range Comments PROTIME (BEAKER) (test oeuw=104) 17.3 seconds 11.7-14.7 INR (BEAKER) (test nkzp=020) 1.4 <=5.9 RECOMMENDED COUMADIN/WARFARIN INR THERAPY RANGESSTANDARD DOSE: 2.0 - 3.0 Includes: PROPHYLAXIS forvenous thrombosis, systemic embolization; TREATMENT for venous thrombosis and/or pulmonary embolus.HIGH RISK: Target INR is 2.5-3.5 for patients with mechanical heart valves.CBC W/PLT COUNT & AUTO [id number] 16:17:00 Test Item Value Reference Range Comments WHITE BLOOD CELL COUNT (BEAKER) (test inbn=668) 5.6 K/ L 3.5-10.5 RED BLOOD CELL COUNT (BEAKER) (test mhze=727) 3.83 M/ L 3.93-5.22 HEMOGLOBIN (BEAKER) (test peqb=307) 12.0 GM/DL 11.2-15.7 HEMATOCRIT (BEAKER) (test xvzq=538) 36.8 % 34.1-44.9 MEAN CORPUSCULAR VOLUME (BEAKER) (test bsnu=657) 96.1 fL 79.4-94.8 MEAN CORPUSCULAR HEMOGLOBIN (BEAKER) (test 31.3 pg 25.6-32.2 afes=503) MEAN CORPUSCULAR HEMOGLOBIN CONC (BEAKER) (test 32.6 GM/DL 32.2-35.5 hhqt=315) RED CELL DISTRIBUTION WIDTH (BEAKER) (test 15.9 % 11.7-14.4 kbvi=395) PLATELET COUNT (BEAKER) (test dfvz=801) 83 K/CU MM 150-450 MEAN PLATELET VOLUME (BEAKER) (test wuda=207) 11.1 fL 9.4-12.3 NUCLEATED RED BLOOD CELLS (BEAKER) (test 0 /100 WBC 0-0 jdfv=591) NEUTROPHILS RELATIVE PERCENT (BEAKER) (test 54 % cusk=335) LYMPHOCYTES RELATIVE PERCENT (BEAKER) (test 36 % hnpn=901) MONOCYTES RELATIVE PERCENT (BEAKER) (test 8 % hvff=294) EOSINOPHILS RELATIVE PERCENT (BEAKER) (test 2 % ojlt=947) BASOPHILS RELATIVE PERCENT (BEAKER) (test 1 % wkzh=639) NEUTROPHILS ABSOLUTE COUNT (BEAKER) (test 3.01 K/ L 1.56-6.13 bmfb=232) LYMPHOCYTES ABSOLUTE COUNT (BEAKER) (test 1.98 K/ L 1.18-3.74 dcjq=943) MONOCYTES ABSOLUTE COUNT (BEAKER) (test pxwr=468) 0.44 K/ L 0.24-0.36 EOSINOPHILS ABSOLUTE COUNT (BEAKER) (test 0.10 K/ L 0.04-0.36 vaeq=184) BASOPHILS ABSOLUTE COUNT (BEAKER) (test mxcj=341) 0.04 K/ L 0.01-0.08 IMMATURE GRANULOCYTES-RELATIVE PERCENT (BEAKER) 0 % 0-1 (test tlgn=9704) ALPHA FETOPROTEIN (AFP), TUMOR [id number] 16:14:00 Test Item Value Reference Range Comments ALPHA-FETOPROTEIN (BEAKER) (test brjs=0266) 5.7 ng/mL <10.0 Effective 07/17/2014: Reference Range ChangeNew: <10.0 Previous: 0.0- [id number] 15:57:00 Test Item Value Reference Range Comments MAGNESIUM (BEAKER) (test mfri=942) 1.9 mg/dL 1.6-2.6 BASIC METABOLIC [id number] 15:57:00 Test Item Value Reference Range Comments SODIUM (BEAKER) (test 139 meq/L 136-145 iuuh=274) POTASSIUM (BEAKER) (test 4.5 meq/L 3.5-5.1 zvey=108) CHLORIDE (BEAKER) (test 105 meq/L 98-107 cevg=459) CO2 (BEAKER) (test 25 meq/L 22-29 kqgp=468) BLOOD UREA NITROGEN 15 mg/dL 7-21 (BEAKER) (test vyow=045) CREATININE (BEAKER) (test 0.95 mg/dL 0.57-1.25 yzdd=270) GLUCOSE RANDOM (BEAKER) 86 mg/dL 70-105 (test pygu=737) CALCIUM (BEAKER) (test 9.4 mg/dL 8.4-10.2 fiyh=478) EGFR (BEAKER) (test 56 mL/min/1.73 sq m ESTIMATED GFR IS NOT lwlu=6539) ACCURATE CREATININE CLEARANCE IN PREDICTING GLOMERULAR FILTRATION RATE. ESTIMATED GFR IS NOT APPLICABLE FOR DIALYSIS PATIENTS. Specimen slightly ictericHEPATIC FUNCTION [id number] 15:57:00 Test Item Value Reference Range Comments TOTAL PROTEIN (BEAKER) (test jugn=523) 7.6 gm/dL 6.0-8.3 ALBUMIN (BEAKER) (test bgdo=0927) 3.2 g/dL 3.5-5.0 BILIRUBIN TOTAL (BEAKER) (test snim=974) 1.8 mg/dL 0.2-1.2 BILIRUBIN DIRECT (BEAKER) (test chwh=948) 0.8 mg/dL 0.1-0.5 ALKALINE PHOSPHATASE (BEAKER) (test rjjj=157) 112 U/L 40-150 AST (SGOT) (BEAKER) (test mqnn=197) 33 U/L 5-34 ALT (SGPT) (BEAKER) (test qrwu=468) 17 U/L 6-55 Specimen slightly ictericPROTHROMBIN [id number] 15:56:00 Test Item Value Reference Range Comments PROTIME (BEAKER) (test aaoe=413) 16.7 seconds 11.7-14.7 INR (BEAKER) (test zhbw=731) 1.4 <=5.9 RECOMMENDED COUMADIN/WARFARIN INR THERAPY RANGESSTANDARD DOSE: 2.0 - 3.0 Includes: PROPHYLAXIS forvenous thrombosis, systemic embolization; TREATMENT for venous thrombosis and/or pulmonary embolus.HIGH RISK: Target INR is 2.5-3.5 for patients with mechanical heart valves.CBC W/PLT COUNT & AUTO [id number] 15:56:00 Test Item Value Reference Range Comments WHITE BLOOD CELL COUNT (BEAKER) (test dkjr=744) 5.3 K/ L 4.0-10.0 RED BLOOD CELL COUNT (BEAKER) (test pfdq=566) 4.21 M/ L 4.00-5.00 HEMOGLOBIN (BEAKER) (test gnsw=747) 14.1 GM/DL 12.0-15.0 HEMATOCRIT (BEAKER) (test xjrd=791) 41.7 % 36.0-45.0 MEAN CORPUSCULAR VOLUME (BEAKER) (test jngb=418) 99.1 fL 82.0-99.0 MEAN CORPUSCULAR HEMOGLOBIN (BEAKER) (test 33.4 pg 27.0-33.0 ijvv=824) MEAN CORPUSCULAR HEMOGLOBIN CONC (BEAKER) (test 33.7 GM/DL 32.0-36.0 smti=195) RED CELL DISTRIBUTION WIDTH (BEAKER) (test 13.2 % 10.3-14.2 euss=041) PLATELET COUNT (BEAKER) (test xlhi=420) 77 K/CU MM 150-430 MEAN PLATELET VOLUME (BEAKER) (test qnpf=113) 8.4 fL 6.5-10.5 NUCLEATED RED BLOOD CELLS (BEAKER) (test 0 /100 WBC 0-0 rvus=546) NEUTROPHILS RELATIVE PERCENT (BEAKER) (test 54 % mwnl=013) LYMPHOCYTES RELATIVE PERCENT (BEAKER) (test 33 % mqun=691) MONOCYTES RELATIVE PERCENT (BEAKER) (test 10 % ogxp=931) EOSINOPHILS RELATIVE PERCENT (BEAKER) (test 3 % kifw=277) BASOPHILS RELATIVE PERCENT (BEAKER) (test 0 % eodq=136) NEUTROPHILS ABSOLUTE COUNT (BEAKER) (test 2.86 K/ L 1.80-8.00 kebx=359) LYMPHOCYTES ABSOLUTE COUNT (BEAKER) (test 1.77 K/ L 1.48-4.50 srel=202) MONOCYTES ABSOLUTE COUNT (BEAKER) (test lydm=706) 0.56 K/ L 0.00-1.30 EOSINOPHILS ABSOLUTE COUNT (BEAKER) (test 0.13 K/ L 0.00-0.50 auok=472) BASOPHILS ABSOLUTE COUNT (BEAKER) (test iqfw=375) 0.02 K/ L 0.00-0.20 0.57GHUV-[id number] 11:05:00 Test Item Value Reference Range Comments POC-CREATININE (BEAKER) 0.9 mg/dL 0.6-1.3 TESTED AT [facility] [address] (test ixnx=2653) [facility] [address] POC-EGFR (BEAKER) (test 59 mL/min/1.73M2 dvpe=5149)
--- OUTSIDE RECORDS SUMMARY | 2019-05-05 08:41 | XMS REPORT ---
:1930 Author Organization [employer] Care Team Providers Name Role Phone Belkis Luuad Provider Role Unavailable Allergies, Adverse Reactions, Alerts Substance Reaction Event Type Adhesive Tape rash Drug Allergy Morphine Sulfate Info Not Available Drug Allergy Encounters Encounter Location Date Unknown [facility] Aug 12, 2015 Problems Problem Type Condition [...] End Status Dosage Date Date Propranolol HCl [facility] 53486-90 20 mg Orally Active 1 tablet 73-00 daily Gabapentin [facility] 96581-76 300 MG Orally Active 1 capsule 39-19 twice a day (bid) B-12 [facility] 06425-39 2500 MCG Active Unknown 92-72 Sublingual Ocuvite [facility] 87995-70 Orally daily Active 1 tablet 87-60 Lasix [facility] 08880-22 40 MG Orally Active 1 tablet 60-13 Once a day Ciprofloxacin [facility] 56160-50 500 MG/5ML (10%) Active 5 ml 93-01 Orally Twice a day [facility]69[facility]99 25 MG Orally Active 1 tablet 03-11 daily Caltrate 600+D [facility] 13487-12 600-400 MG-UNIT Active 1 tablet 86-00 Orally [...]
[2019-05-05 09:28] LABS: Absolute Lymphocytes (CBC) 0.3 K/uL (0.7-4.9); Basophils % 0.6 % (0-1.3); Hematocrit 27.3 % (36.0-45.0); Lymphocytes % 7.7 % (15.3-44.8); MPV 7.9 fL (7.6-11.3); RBC Red Blood Cell Count 2.98 M/uL (3.86-4.86)
[2019-05-05 10:09] LABS: Albumin 2.5 g/dL (3.4-5.0); Bilirubin Total 0.8 mg/dL (0.2-1.0); Potassium 4.4 mmol/L (3.5-5.1); Protein, Total 7.2 g/dL (6.4-8.2)
[2019-05-05 10:20] LABS: Blood Morphology Comment NOT SEEN (NOT SEEN); Platelet Estimate DECR; Urine White Blood Cell Casts OK
[2019-05-05] MEDS ORDERED: ALBUMIN HUMAN 25% 200 ML IV ONE (10:27)
--- NOTE | 2019-05-05 11:06 | RAD REPORT ---
EXAM DESCRIPTION: US - Paracentesis Proc Guidance - 05/05/2019 10:14 am CLINICAL HISTORY: Ascites COMPARISON: Multiple prior paracentesis procedures TECHNIQUE: The patient presents for ultrasound-guided paracentesis. The procedure, risks and altern atives were discussed with the patient in detail. Oral and written consent were obtained. Time out p rocedure was performed. The patient had no contraindicated allergy or medication history. PT, INR va lues within acceptable limits. Platelet count normal range. Preliminary sonographic evaluation identified right lower quadrant access site. The skin and deeper tissues were anesthetized with 1 percent lidocaine. Under direct sonographic visualization, a parace ntesis catheter was advanced into the peritoneal cavity. Large volume drainage was initiated. Approx imately 4 liters of ascites removed. At the conclusion of the procedure, catheter was withdrawn and a bandage placed at the puncture site. Patient was transferred to same-day surgery for post paracentesis monitoring and albumin infusion pe r referring physician protocol. IMPRESSION: Ultrasound-guided paracentesis as detailed.
[2019-05-05 14:01] VITALS: BMI 23.3
[2019-05-05 14:04] VITALS: BP 98/50; TEMP 98; O2SAT 99
== END 2019-05-05 12:00 | disposition home or self-care (01) ==
LOC: DS 08:31
PROVIDERS: ATTEND Internal Medicine Gastroenterology
DX: R18.8 Other ascites (principal); K72.90 Hepatic failure, unspecified without coma; K74.60 Unspecified cirrhosis of liver; K76.0 Fatty (change of) liver, not elsewhere classified; R60.0 Localized edema; K30 Functional dyspepsia; L25.9 Unspecified contact dermatitis, unspecified cause
CPT/HCPCS: 85025; 36415; 80053; 96365; 49083; P9047

== ENCOUNTER → 2019-05-12 | Day surgery (SDC) | payer OTHER ==
--- OUTSIDE RECORDS SUMMARY | 2019-05-12 08:56 | XMS REPORT | Clinical Summary ---
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 Ankush Levine Referring Physician Fareed Ballesteros [...] infection 09/06/2014 Overview: SNOMED/[place] [id number] Last Assessment & Plan: Cirrhosis of liver [...] Encounters Date Type Specialty Care Team Description 05/05/2019 Telephone Hepatology Kandy Castillo Follow-up CARMINE Grant 05/04/2019 Abstract Hepatology Eva Wilcox MA 05/03/2019 Abstract Hepatology Yvonne Atkins MA 05/02/2019 Office Visit HepatLynn Greene, 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); MD Screening for malignant neoplasm; Other ascites; Encephalopathy 02/22/2019 Abstract HepatPennie Gomez RN 02/03/2019 Orders Only Hepatology Xiao Mckeon RN 12/27/2018 Orders Only HepatXiao Cesar RN 11/01/2018 Orders Only HepatPennie Gomez RN 10/20/2018 Abstract HepatYvonne Braun MA 10/17/2018 Telephone HepatKandy Linares Follow-up CARMINE Grant 09/30/2018 Abstract Pennie Bahena RN 09/30/2018 Telephone Pennie Bahena RN Pending imaging 09/30/2018 Abstract Pennie Bahena RN 09/20/2018 Documentation HepatXiao Cesar RN 09/12/2018 Telephone HepatXiao Cesar RN other 08/11/2018 Telephone HepatXiao Cesar RN other 08/10/2018 Office Visit Hepatology Lynn Murguia, 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); Screening for cancer; Encephalopathy; Abnormal breath sounds 07/11/2018 Telephone Hepatology Xiao Mckeon RN other 05/31/2018 Telephone Hepatology Xiao Mckeon RN other 05/13/2018 Abstract Hepatology Yvonne Atkins MA after 05/11/2018 Family History Medical History Relation Name Comments [...] 10/31/2019 Office Visit Hepatology Lynn Murguia MD [address] [id number] Procedures Procedure Name Priority Date/Time Associated Comments Diagnosis CBC W/PLT COUNT & Routine 08/10/2018 3:45 Hepatic cirrhosis Results for this AUTO DIFFERENTIAL PM DAIRY 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 Screening for cancer Encephalopathy AMMONIA Routine 08/10/2018 3:45 Hepatic cirrhosis Results for this PM DAIRY 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 Screening for cancer Encephalopathy ALPHA FETOPROTEIN Routine 08/10/2018 3:45 Hepatic cirrhosis Results for this (AFP), TUMOR MARKER PM DAIRY 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 Screening for cancer Encephalopathy PROTHROMBIN TIME/INR Routine 08/10/2018 3:45 Hepatic cirrhosis Results for this PM DAIRY 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 Screening for cancer Encephalopathy CBC W/PLT COUNT & Routine 08/10/2018 3:45 Hepatic cirrhosis Results for this AUTO DIFFERENTIAL PM DAIRY 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 Screening for cancer Encephalopathy HEPATIC FUNCTION Routine 08/10/2018 3:45 Hepatic cirrhosis Results for this PANEL PM DAIRY 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 Screening for cancer Encephalopathy BASIC METABOLIC PANEL Routine 08/10/2018 3:45 Hepatic cirrhosis Results for this (7) PM DAIRY 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 Screening for cancer Encephalopathy after 05/11/2018 Results CBC with platelet count + automated diff (08/10/2018 3:45 PM DAIRY QUALITY ASSURANCE OFFICER) WBC 5.0 3.5 - 10.5 K/L [facility] RBC 3.39 (L) 3.93 - 5.22 M/L [facility] Hemoglobin 10.7 (L) 11.2 - 15.7 GM/DL [facility] Hematocrit 33.1 (L) 34.1 - 44.9 % [facility] MCV 97.6 (H) 79.4 - 94.8 fL [facility] MCH 31.6 25.6 - 32.2 pg [facility] MCHC 32.3 32.2 - 35.5 GM/DL [facility] RDW 15.0 (H) 11.7 - 14.4 % [facility] Platelets 98 (L) 150 - 450 K/CU MM [facility] MPV 10.0 9.4 - 12.3 fL [facility] nRBC 0 0 - 0 /100 WBC [facility] % Neutros 71 % [facility] % Lymphs 14 % [facility] % Monos 12 % [facility] % Eos 2 % [facility] % Baso 1 % [facility] # Neutros 3.51 1.56 - 6.13 K/L [facility] # Lymphs 0.69 (L) 1.18 - 3.74 K/L [facility] # Monos 0.62 (H) 0.24 - 0.36 K/L [facility] # Eos 0.10 0.04 - 0.36 K/L [facility] # Baso 0.04 0.01 - 0.08 K/L [facility] Immature Granulocytes-Relative 0 0 - 1 % [facility] Specimen Blood Performing Organization Address City/State/Zipcode Phone Number [address] [address] [place] Alpha fetoprotein (AFP), tumor marker (08/10/2018 3:45 PM DAIRY QUALITY ASSURANCE OFFICER) Alpha-Fetoprotein 2.9 <10.0 ng/mL [facility] Specimen Blood Performing Organization Address City/[facility]/Zipcode Phone Number [address] [address] [place] Pro-time/INR (08/10/2018 3:45 PM DAIRY QUALITY ASSURANCE OFFICER) Protime 16.5 (H) 11.7 - 14.7 seconds [facility] INR 1.3 <=5.9 [facility] Specimen Blood Narrative Performed At RECOMMENDED COUMADIN/WARFARIN INR THERAPY [facility] RANGES STANDARD DOSE: 2.0 - 3.0 Includes: PROPHYLAXIS for venous thrombosis, systemic embolization; TREATMENT for venous thrombosis and/or pulmonary embolus. HIGH RISK: Target INR is 2.5-3.5 for patients with mechanical heart valves. Performing Organization Address [facility] Phone Number [address] [address] [place] Ammonia (08/10/2018 3:45 PM DAIRY QUALITY ASSURANCE OFFICER) Ammonia 40 18 - 72 mol/L [facility] Specimen Blood Performing Organization Address City/[facility] Phone Number [address] [address] [place] Hepatic function panel (08/10/2018 3:45 PM DAIRY QUALITY ASSURANCE OFFICER) Protein, Total 9.0 (H) 6.0 - 8.3 gm/dL [facility] Albumin 2.8 (L) 3.5 - 5.0 g/dL [facility] Total Bilirubin 1.2 0.2 - 1.2 mg/dL [facility] Bilirubin, Direct 0.7 (H) 0.1 - 0.5 mg/dL [facility] Alkaline Phosphatase 111 40 - 150 U/L [facility] AST 31 5 - 34 U/L [facility] ALT 12 6 - 55 U/L [facility] Specimen Blood Performing Organization Address [facility] Cent[facility]ode Phone Number [address] [address] [place] Basic Metabolic Panel (08/10/2018 3:45 PM DAIRY QUALITY ASSURANCE OFFICER) Sodium 133 (L) 136 - 145 meq/L [facility] Potassium 4.0 3.5 - 5.1 meq/L [facility] Chloride 100 98 - 107 meq/L [facility] CO2 27 22 - 29 meq/L [facility] BUN 20 7 - 21 mg/dL [facility] Creatinine 1.07 0.57 - 1.25 mg/dL [facility] Glucose 71 70 - 105 mg/dL [facility] Calcium 9.4 8.4 - 10.2 mg/dL [facility] EGFR 49Comment: ESTIMATED GFR IS mL/min/1.73 sq m [facility] NOT ACCURATE CREATININE [facility] CENTER CLEARANCE IN PREDICTING GLOMERULAR FILTRATION RATE. ESTIMATED GFR IS NOT APPLICABLE FOR DIALYSIS PATIENTS. Specimen Blood Performing Organization Address City/State/Zipcode Phone Number [facility] [address] [place] [address] CENTER after 05/11/2018 Insurance Payer Benefit Plan / Group Subscriber ID Type Phone Address MEDICARE MEDICARE A B xxxxxxxxxxx Medicare [facility] GENERIC MEDICARE xxxxxxxxx [employer] SUPPLEMENT/INDIVIDUAL SUPPLEMENT
--- OUTSIDE RECORDS SUMMARY | 2019-05-12 09:00 | XMS REPORT | Continuity of Care Document ---
:1930 Author Organization [facility] Care Team Providers Name Role Phone [facility] Unavailable Unavailable Problems Problem Status Onset Classification [...] Problem 01/17/2018 Data migrated Medical 014 from [facility] [place] 01/28/15. UMB HERNIA WITHOUT Active Condition 04/27/2014 Medical MENTION 014 Group OBSTRUCTION/GANGRE NE LARGE INTESTINE Active Condition 04/27/2014 Medical CANCER 012 Group SCREENING FOR Active Condition 04/27/2014 Medical COLON CANCER 012 Group Carcinoma of Active Problem 01/17/2018 Data migrated Medical ascending colon1 011 from [facility] [place] 01/28/15. CARCINOMA, Active Condition 04/27/2014 Medical ASCENDING COLON 011 Group Cancer of colon Active Problem 01/17/2018 Medical 011 Group,[facility] CH - Chronic Active Problem 04/24/2017 hepatitis [place] DVT (Confirmed) Resolved Problem 04/24/2017 [facility] Bronchitis Res[facility] Active Problem 01/17/2018 [...] Unspecified Active Diagnosis 08/26/2015 2.16.840.1. infectious disease [id number] Bacterial Active Diagnosis 08/26/2015 2.16.840.1. infection [id number] Other Active Diagnosis 08/26/2015 2.16.840.1. encephalopathy [id number] Esophageal varices Active Diagnosis 08/26/2015 2.16.840.1. [id number] Hepatic cirrhosis Active Diagnosis 08/26/2015 2.16.840.1. [id number] UTI Active Problem 08/26/2015 2.16.840.1. [id number] MALIGNANT MIGEL Active COLON NOS [place] 153.9 Active [place] HEPATOPULMONARY Active SYNDROME [place] HX OF COLONIC Active MALIGNANCY [place] URIN TRACT Active INFECTION NOS [place] INCISIONAL HERNIA Active [place] MALIGNANT NEOPLASM Active MH OF COLON, [place] UNSPECIFIED PERSONAL HISTORY Active MH OF MALIGNANT [place] NEOPLASM O CALCULUS OF KIDNEY Active [facility] Medications Medication Details Route Status Patient Ordering Order Source Instructions Provider Date Acetaminophen 2 tab, PO, Active 300 MG / Q6H, PRN 2016 [facility] Codeine Pain, X 7 Phosphate 30 MG day, # 56 Oral Tablet tab, 0 [Tylenol with Refill(s) Codeine #3] esmolol (ANES) Route: IV, Inactive Drug form: 2016 [facility] INJ, ONCE, Stop date: 08/03/17 13:22:00 [employer]IN FILM TECHNICIAN ondansetron Route: IV, Inactive (ANES) Drug form: 2016 [facility] INJ, ONCE, Stop date: 08/03/17 13:07:00 THIN FILM TECHNICIAN propofol (ANES) Route: IV, Inactive Drug form: 2016 [facility] INJ, ONCE, Stop date: 08/03/17 13:07:00 THIN FILM TECHNICIAN lidocaine Route: IV, Inactive (ANES) Drug form: 2016 [facility] INJ, ONCE, Stop date: 08/03/17 13:07:00 THIN FILM TECHNICIAN ciprofloxacin Route: IV, Inactive (ANES) Drug form: 2016 [facility] INJ, ONCE, Stop date: 08/03/17 13:07:00 THIN FILM TECHNICIAN dexamethasone Route: IV, Inactive (ANES) Drug form: 2016 [facility] INJ, ONCE, Stop date: 08/03/17 13:07:00 THIN FILM TECHNICIAN fentaNYL (ANES) Route: IV, Inactive Drug form: 2016 [facility] INJ, ONCE, Stop date: 08/03/17 13:02:00 THIN FILM TECHNICIAN Calcium 1,000 mL, Inactive Chloride 0.0014 Rate: 25 2016 [facility] MEQ/ML / ml/hr, Infuse Potassium over: 40 hr, Chloride 0.004 Route: IV, MEQ/ML / Sodium Dosing Weight Chloride 0.103 74.091 kg, MEQ/ML / Sodium Total Volume: Lactate 0.028 1,000, Start MEQ/ML date: Injectable 08/03/17 Solution 12:12:00 THIN FILM TECHNICIAN, Duration: 30 day, Stop date: 09/02/17 12:11:00 THIN FILM TECHNICIAN, 1.86, m2 vancomycin Route: IV, Inactive (ANES) 1000 mg Drug form: 2016 [facility] INJ, Start date: 08/03/17 12:10:00 THIN FILM TECHNICIAN, Stop date: 08/03/17 13:10:00 THIN FILM TECHNICIAN Lactated Route: IV, Inactive Ringers Total Volume: 2016 [facility] Injection IV 1,000, Start (ANES) 1000 mL date: 08/03/17 12:10:00 THIN FILM TECHNICIAN, Stop date: 08/03/17 13:10:00 THIN FILM TECHNICIAN Ceftriaxone 1 gm, Route: No Longer IVPB, Q12H, Active 2016 [facility] Dosing Weight 74.091, kg, Start date: 08/02/17 21:00:00 THIN FILM TECHNICIAN, Duration: 24 hr, Stop date: 08/03/17 9:00:00 THIN FILM TECHNICIAN, ABX Indication: Urinary Tract Infection phenylephrine Route: IV, Inactive (ANES) Drug form: 2016 [facility] INJ, ONCE, Stop date: 04/21/17 10:51:00 CDT ondansetron Route: IV, Inactive (ANES) Drug form: 2016 [facility] INJ, ONCE, Stop date: 04/21/17 10:41:00 CDT dexamethasone Route: IV, Inactive (ANES) Drug form: 2016 [facility] INJ, ONCE, Stop date: 04/21/17 10:41:00 CDT ceFAZolin Route: IV, Inactive (ANES) Drug form: 2016 [facility] INJ, ONCE, Stop date: 04/21/17 10:41:00 CDT lidocaine Route: IV, Inactive (ANES) Drug form: 2016 [facility] INJ, ONCE, Stop date: 04/21/17 10:41:00 CDT propofol (ANES) Route: IV, Inactive Drug form: 2016 [facility] INJ, ONCE, Stop date: 04/21/17 10:41:00 CDT fentaNYL (ANES) Route: IV, Inactive Drug form: 2016 [facility] INJ, ONCE, Stop date: 04/21/17 10:41:00 CDT acetaminophen Route: IV, Inactive (ANES) (ANES) Drug form: 2016 [facility] INJ, Start date: 04/21/17 10:35:00 CDT, Stop date: 04/21/17 11:35:00 CDT sodium chloride Route: IV, Inactive 08/23/ MH 0.9% 500 ml INJ Total Volume: 2016 [facility] (ANES) 500, Start date: 04/21/17 10:08:00 CDT, Stop date: 04/21/17 11:08:00 CDT Calcium 1,000 mL, Inactive Chloride 0.0014 Rate: 25 2016 [facility] MEQ/ML / ml/hr, Infuse Potassium over: 40 hr, Chloride 0.004 Route: IV, MEQ/ML / Sodium Dosing Weight Chloride 0.103 74.545 kg, MEQ/ML / Sodium Total Volume: Lactate 0.028 1,000, Start MEQ/ML date: Injectable 04/21/17 Solution 9:53:00 CDT, Duration: 30 day, Stop date: 05/21/17 9:52:00 CDT Ocuvite 1 tab, PO, Active Daily, 0 2016 [facility] Refill(s) Furosemide 40 40 mg=1 tab, Active MG Oral Tablet PO, Daily, 0 2016 [facility] Refill(s) Vitamin D3 2000 2,000 Active intl units oral IntlUnit=1 2016 [facility] tablet tab, PO, Daily, 0 Refill(s) Albuterol 0.833 3 mL, Route: Inactive MG/ML / NEB, Drug 2016 [facility] Ipratropium Form: SOLN, [place] 0.167 Dosing Weight MG/ML Inhalant 76.364, kg, Solution ONCE, STAT, Start date: 02/23/17 9:22:00 CDT, Stop date: 02/23/17 9:22:00 CDTNotes: (Same as: Mirza) Sodium Chloride 500 mL, Rate: Inactive 0.154 MEQ/ML 25 ml/hr, 2016 [facility] Injectable Infuse over: Solution 20 hr, Route: IV, Dosing Weight 76.364 kg, Total Volume: 500, Start date: 02/23/17 9:22:00 CDT, Duration: 1 day, Stop date: 02/24/17 9:21:00 CDT Lasix 20 mg, 1 tab, No Longer Route: PO, Active 2014 [facility] Drug form: TAB, Daily, Dosing Weight 73.295, kg, Start date: 08/08/15 9:00:00, Duration: 30 day, Stop date: 09/06/15 9:00:00Notes: (Same as: Lasix) May cause GI upset. Give with food or milk. Spironolactone 12.5 mg, 0.5 No Longer tab, Route: Active 2014 [facility] PO, Drug form: TAB, Daily, [...] 20 mL, Route: Inactive IVP, Start 2014 [facility] date: 08/07/15 12:19:00, Duration: 30 day, Stop date: 09/06/15 12:18:00, PRN Line FlushNotes: preservative free. sodium chloride 10 mL, Route: Inactive IVP, Start 2014 [facility] date: 08/07/15 12:18:00, Duration: 30 [...] Inactive 100 MG Oral cap, Route: 2014 [facility] Capsule PO, Drug [Colace] form: CAP, Daily, Dosing Weight 73.295, kg, PRN Constipation, Start date: 08/07/15 11:09:00, Duration: 30 day, Stop date: 09/06/15 11:08:00Notes : (Same as: Colace) (Do Not Crush) Ibuprofen 400 mg, 1 Inactive tab, Route: 2014 [facility] PO, Drug form: TAB, ONCE, Dosing Weight 73.295, kg, PRN Headache 1-5, Start date: 08/06/15 21:10:00, Stop date: 08/06/15 21:10:00Notes : (Same as: Motrin) "Do Not Crush" Give with food. Lasix PO, Daily, 0 Active Refill(s) 2014 [facility] Rocephin 1 gm, Route: No Longer IVPB, Active 2014 [facility] [id number], Dosing Weight 73.295, kg, Start date: 08/06/15 9:00:00, Duration: 30 day, Stop date: 09/04/15 9:00:00Notes: (Same As: Rocephin). Use with 100 mL NS and infuse over 30 min MEDICATION WASTE Product Size: 1000 mg Product Wasted: ___ mg Lactulose 10 gm, 15 ml, Inactive Route: PO, 2014 [facility] Drug Form: SYRP, Dosing Weight 73.295, kg, ONCE, Start date: 08/06/15 3:49:00, Stop date: 08/06/15 3:49:00Notes: (Same as:Chronulac) Ondansetron 4 mg, 2 mL, No Longer Route: IVP, Active 2014 [facility] Drug form: INJ, Q6H, Dosing Weight 73.636, kg, PRN Nausea & Vomiting, Start date: 08/06/15 3:29:00, Duration: 30 day, Stop date: 09/05/15 3:28:00Notes: (Same as: Zofran) MEDICATION WASTE Product Size: 4 mg Product Wasted: ___ mg Acetaminophen 325 mg, 1 No Longer tab, Route: Active 2014 [facility] PO, Drug form: TAB, Q4H, Dosing Weight 73.636, kg, PRN Pain Score 4-6, Start date: 08/06/15 3:29:00, Duration: 30 day, Stop date: 09/05/15 3:28:00Notes: Do not exceed 4 gm/day. (Same as: Tylenol) Morphine 2 mg, Route: No Longer IVP, Q4H, Active 2014 [facility] Dosing Weight 73.636, kg, PRN Pain Score 7-10, Start date: 08/06/15 3:29:00, Duration: 30 day, Stop date: 09/05/15 3:28:00 Aspirin 325 mg, 1 No Longer tab, Route: Active 2014 [facility] PO, Drug form: ECTAB, Q24H, Dosing Weight 73.636, kg, Start date: 08/06/15 3:00:00, Duration: 30 day, Stop date: 09/04/15 3:00:00Notes: (Do Not Crush) Do not crush or chew. Saline Flush 10 mL, Route: No Longer 0.9% IVP, Drug Active 2014 [facility] Form: INJ, Dosing Weight 75.455, kg, PRN, PRN Line Flush, Start date: 08/05/15 19:05:00, Duration: 30 day, Stop date: 09/04/15 19:04:00Notes : (Same as: BD Posiflush) Docusate Sodium 100 mg=1 cap, Active 100 MG Oral PO, Daily, as 2013 [facility] Capsule needed for [Colace] constipation, # 20 cap, 0 Refill(s) gabapentin 300 300 mg=1 cap, Active MG Oral Capsule PO, BID, # 90 2013 cap, 0 Refill(s) tramadol 50 mg=1 tab, Active hydrochloride PO, Q6H, 2013 50 MG Oral Pain, # 40 Tablet tab, 0 Refill(s) Ibuprofen 400 400 mg, 1 No Longer MG Oral Tablet tab, Route: Active 2013 [facility] PO, Drug form: TAB, Q6H, Dosing Weight 64.545, kg, PRN as needed for pain, Start date: 04/19/14 14:09:00, Duration: 30 day, Stop date: 05/19/14 14:08:00Notes : (Same as: Motrin) "Do Not Crush" Give with food. Ibuprofen 600 mg, Inactive Route: PO, 2013 [facility] Q6H, Dosing Weight 64.545, kg, PRN Severe Pain, Start date: 04/19/14 14:09:00, Duration: 30 day, Stop date: 05/19/14 14:08:00 hydromorphone 0.5 mg, 0.5 No Longer mL, Route: Active 2013 [facility] IV, Drug form: INJ, Q2H, PRN Pain, Start date: 04/18/14 17:55:00, Duration: 30 day, Stop date: 05/18/14 17:54:00 Ibuprofen 600 mg, Inactive Route: PO, 2013 [facility] Q6H, Dosing Weight 64.545, kg, PRN as needed for pain, Start date: 04/18/14 17:02:00, Duration: 30 day, Stop date: 05/18/14 17:01:00 Docusate Sodium 100 mg, 1 No Longer 100 MG Oral cap, Route: Active 2013 [facility] Capsule PO, Drug form: CAP, BID, Dosing Weight 64.545, kg, Start date: 04/18/14 17:00:00, Duration: 30 day, Stop date: 05/18/14 9:00:00Notes: (Same as: Colace) (Do Not Crush) Ofirmev 1,000 mg, 100 Inactive mL, Route: 2013 [facility] IV, Drug form: INJ, Q6H, Dosing Weight 65.909, kg, for > or=50 kg, Start date: 04/18/14 12:00:00, Duration: 1 day, Stop date: 04/19/14 6:00:00Notes: Infuse over 15 minutes Do not exceed 4gm/day of acetaminophen Saline Flush 5 ml, Route: No Longer 0.9% IVP, Drug Active 2013 [facility] Form: INJ, Dosing Weight 64.545, kg, PRN, PRN Line Flush, Start date: 04/18/14 10:16:00, Duration: 30 day, Stop date: 05/18/14 10:15:00Notes : Same as: BD Posiflush Sterile Sodium Chloride 1,000 mL, No Longer 0.154 MEQ/ML Rate: 125 Active 2013 [facility] Injectable ml/hr, Infuse Solution over: 8 hr, Route: IV, Dosing Weight 64.545 kg, Total Volume: 1,000, Start date: 04/18/14 10:16:00, Duration: 30 day, Stop date: 05/18/14 10:15:00 Ondansetron 4 mg, 2 mL, No Longer Route: IVP, Active 2013 [facility] Drug form: INJ, Q6H, Dosing Weight 64.545, kg, PRN Nausea & Vomiting, Start date: 04/18/14 10:16:00, Duration: 30 day, Stop date: 05/18/14 10:15:00Notes : (Same as: Zofran) Acetaminophen 1 tab, Route: Inactive 325 MG / PO, Drug 2013 [facility] Hydrocodone Form: TAB, Bitartrate 5 MG Dosing Weight Oral Tablet 65.909, kg, Q4H, PRN Pain Score 1-3, Start date: 04/18/14 10:16:00, Duration: 30 day, Stop date: 05/18/14 10:15:00Notes : (Same as: [place] 325/5) Do not exceed 4gm/day of acetaminophen . Cefoxitin 2 gm, Route: No Longer IVPB, ONCALL, Active 2013 [facility] Dosing Weight 64.545, kg, Start date: 04/13/14 13:00:00, Duration: 30 day, Stop date: 05/13/14 12:59:00Notes : (Same As: Mefoxin) Naloxone 0.1 mg, Inactive Route: IVP, 2013 Q2MIN, Dosing Weight 65.909, kg, PRN Narcotic Reversal, Start date: 03/13/14 11:16:00, Duration: 4 doses or times, Stop date: Limited # of times Flumazenil 0.2 mg, Inactive Route: IVP, 2013 [facility] PRN, Dosing Weight 65.909, kg, PRN Other -See Comment, Start date: 03/13/14 11:16:00, Duration: 1 doses or times, Stop date: Limited # of times Sodium Chloride 1,000 mL, Inactive 0.154 MEQ/ML Rate: 25 2013 [facility] Injectable ml/hr, Infuse Solution over: 40 hr, Route: IV, Dosing Weight 65.909 kg, Total Volume: 1,000, Start date: 03/13/14 9:59:00, Duration: 30 day, Stop date: 04/12/14 9:58:00 Coconut oil Coconut oil, Active Refill(s) 0 2013 ibandronic acid 150 mg=1 tab, Active 150 MG Oral PO, qMonth, # 2013 [facility] Tablet [Boniva] 1 tab, 0 Refill(s) [...] Active 20 mg Orally Jus 2.16.840.1 daily .100454.4. 391 68 Gabapentin 1 capsule Orally Active 300 MG Orally Jus 2.16.840.1 twice a day .496940.4. (bid) 391 68 B-12 Unknown Sublingual Active 2500 MCG Jus 2.16.840.1 Sublingual .277609.4. 391 68 Ocuvite 1 tablet Orally Active Orally daily Jus 2.16.840.1 .590117.4. 391 68 Lasix 1 tablet Orally Active 40 MG Orally Jus 2.16.840.1 Once a day .122888.4. 68 Ciprofloxacin 5 ml Orally Active 500 MG/5ML Jus 2.16.840.1 (10%) Orally .092839.4. Twice a day Spironolactone 1 tablet Orally Active 25 MG Orally Jus 2.16.840.1 daily .725410.4. Caltrate 600+D 1 tablet with Orally Active 600-400 Jus 2.16.840.1 food MG-UNIT .357983.4. Orally Once a day Allergies, Adverse Reactions, Alerts Substance Category Reaction Severity Reaction Status Date Comments Source type Reported MORPHINE Drug MORPHINE allergy 2 Medical [facility] morphine<s Assertion Drug Active Data up>1</sup> allergy 2 migrated Medical from [facility] on 12/27/14. Originally documented as MORPHINE. Hallucinatio ns Adhesive Adverse rash Adverse Active 2.16.840. Tape Reaction Reaction 5 1.728026. 4.391.. 15683 Morphine Adverse Info Not Adverse Active 2.16.840. Sulfate Reaction Available Reaction 5 1.414529. 4.391.. 42088 morphine Assertion Drug Active allergy [place] Tape [...] 36.1 20.0 - 12 MH 40.0 /2016 [facility] HEMATOLOGY Eosinophils 1.2 0.0 - 4.0 08/03 [facility] HEMATOLOGY Monocytes 5.4 2.0 - 12.0 08/03 [facility] HEMATOLOGY Basophils 0.6 0.0 - 1.0 08/03 [facility] HEMATOLOGY Segs 56.7 45.0 - 12 MH 75.0 /2016 [facility] HEMATOLOGY Monocytes # 0.2 0.0 - 0.8 08/03 [facility] HEMATOLOGY Lymphocytes 1.0 1.0 - 5.5 08/03 MH # /2017 [facility] HEMATOLOGY Segs-Bands # 1.6 1.5 - 8.1 08/03 [facility] HEMATOLOGY MPV 9.2 7.4 - 10.4 08/03 [facility] HEMATOLOGY RDW 16.5 11.5 - 12 MH 14.5 [facility] HEMATOLOGY Platelet 62 133 - 450 12 [facility] HEMATOLOGY Hct 39.3 36.0 - 12 MH 48.0 /2017 [facility] HEMATOLOGY Hgb 13.2 12.0 - 12 MH 16.0 /2016 [facility] HEMATOLOGY RBC 4.14 4.20 - 12 MH 5.40 /2016 [facility] HEMATOLOGY MCH 31.9 27.0 - 12/ MH 31.0 /2016 [facility] HEMATOLOGY MCV 95.1 80.0 - 12 MH 98.0 /2016 [facility] HEMATOLOGY MCHC 33.6 32.0 - 12 MH 36.0 /2017 [facility] HEMATOLOGY WBC 2.8 3.7 - 10.4 08/03 [place] CHEM PANEL eGFR 59 08/02 [facility] Comment: The [facility] eGFR is calculated using the CKD-EPI [...] Direct 0.3 0.0 - 0.3 12/ /2016 [facility] CHEM PANEL Bili 1.5 0.0 - 1.0 12/ MH Indirect /2016 [facility] CHEM PANEL A/G Ratio 0.5 0.7 - 1.6 08/02 /2016 [facility] CHEM PANEL Globulin 4.6 2.7 - 4.2 12/ /2016 [facility] HEMATOLOGY RBC 3.92 4.20 - 12 MH 5.40 /2016 [facility] HEMATOLOGY WBC 5.1 3.7 - 10.4 12 /2016 [facility] HEMATOLOGY Hgb 12.3 12.0 - 12 MH 16.0 /2016 [facility] HEMATOLOGY RDW 15.9 11.5 - 12 MH 14.5 /2016 [facility] HEMATOLOGY MCHC 33.4 32.0 - 12 MH 36.0 /2016 [facility] HEMATOLOGY MCH 31.3 27.0 - 12/ MH 31.0 /2016 [facility] HEMATOLOGY Hct 36.7 36.0 - 08/02 MH 48.0 /2016 [facility] HEMATOLOGY MCV 93.6 80.0 - 08/02 MH 98.0 /2016 [facility] HEMATOLOGY MPV 8.9 7.4 - 10.4 12 /2016 [facility] HEMATOLOGY Platelet 82 133 - 450 12 /2016 [facility] HEMATOLOGY INR 1.49 0.85 - 08/02 MH 1.17 /2016 [facility] HEMATOLOGY PT 18.1 12.0 - 08/02 MH 14.7 /2016 [facility] HEMATOLOGY PTT 33.0 22.9 - 12/ MH 35.8 /2017 [facility] HEMATOLOGY Segs-Bands # 2.6 1.5 - [...] ELECTROLYT eGFR 46 04/13 Result Comment: The [facility] eGFR is calculated using the CKD-EPI [...] 0.50 - 04/13 ES Lvl 1.40 /2016 [facility] ELECTROLYT BUN 13 7 - 22 04/13 ES /2016 [facility] ELECTROLYT Potassium 4.3 3.5 - 5.1 04/13 ES Lvl /2016 [place] ELECTROLYT Sodium Lvl 142 135 - 145 04/13 ES [facility] ELECTROLYT Chloride Lvl 107 95 - 109 04/13 ES /2016 [facility] ELECTROLYT CO2 25 24 - 32 04/13 ES /2016 [facility] ELECTROLYT Calcium Lvl 9.3 8.5 - 10.5 04/13 ES [facility] ELECTROLYT Glucose Lvl 101 70 - 99 04/13 ES [facility] HEMATOLOGY Eosinophils 0.2 0.0 - 0.5 04/13 MH # /2016 [facility] HEMATOLOGY Basophils # 0.1 0.0 - 0.2 04/13 [facility] HEMATOLOGY Monocytes # 0.6 0.0 - 0.8 04/13 [facility] HEMATOLOGY Lymphocytes 1.8 1.0 - 5.5 04/13 MH # /2016 [facility] HEMATOLOGY Segs-Bands # 3.0 1.5 - 8.1 04/13 [facility] HEMATOLOGY Basophils 0.9 0.0 - 1.0 04/13 [facility] HEMATOLOGY Monocytes 10.4 2.0 - 12.0 04/13 [facility] HEMATOLOGY Eosinophils 3.0 0.0 - 4.0 04/13 [facility] HEMATOLOGY Segs 53.7 45.0 - 04/13 MH 75.0 /2017 [facility] HEMATOLOGY Lymphocytes 32.0 20.0 - 04/13 MH 40.0 /2017 [facility] HEMATOLOGY INR 1.27 0.85 - 04/13 MH 1.17 /2016 [facility] HEMATOLOGY PT 16.2 12.0 - 04/13 MH 14.7 /2016 [facility] HEMATOLOGY MPV 8.9 7.4 - 10.4 04/13 [facility] HEMATOLOGY RDW 15.4 11.5 - 04/13 MH 14.5 [facility] HEMATOLOGY Platelet 79 133 - 450 04/13 [facility] HEMATOLOGY MCH 32.2 27.0 - 04/13 MH 31.0 /[address] [facility] MCHC 33.3 32.0 - 04/13 MH 36.0 /2017 [facility] RBC 4.00 4.20 - 04/13 MH 5.40 /2016 [facility] HEMATOLOGY MCV 96.5 80.0 - 04/13 MH 98.0 /2017 [facility] HEMATOLOGY Hct 38.6 36.0 - 04/13 MH 48.0 /2016 [facility] Hgb 12.9 12.0 - 04/13 MH 16.0 [facility] WBC 5.6 3.7 - 10.4 04/13 [facility] HEMATOLOGY PTT 28.2 22.9 - 04/13 MH 35.8 /2017 [facility] ELECTROLYT AGAP 7.1 10.0 - 02/16 ES 20.0 [facility] ELECTROLYT eGFR 54 02/16 Result Comment: The [facility] eGFR is calculated using the CKD-EPI [...] Lvl 8.8 8.5 - 10.5 02/16 MH [facility] ELECTROLYT Chloride Lvl 107 95 - 109 02/16 ES [facility] ELECTROLYT CO2 30 24 - 32 02/16 [facility] ELECTROLYT Potassium 4.1 3.5 - 5.1 02/16 ES Lvl /2016 [facility] ELECTROLYT Glucose Lvl 75 70 - 99 02/16 ES [facility] ELECTROLYT BUN 11 7 - 22 02/16 [facility] ELECTROLYT Creatinine 0.95 0.50 - 02/16 ES Lvl 1.40 [facility] ELECTROLYT Sodium Lvl 140 135 - 145 02/16 [facility] HEMATOLOGY Hgb 13.0 12.0 - 02/16 16.0 [facility] HEMATOLOGY Hct 38.8 36.0 - 02/16 48.0 [facility] TUMOR CEA 11.8 0.0 - 3.0 02/16 MH [facility] CHEM PANEL A/G Ratio 0.6 0.7 - 1.6 08/07 [facility] CHEM PANEL AGAP 11.9 10.0 - 08/07 MH 20.0 [facility] CHEM PANEL Globulin 4.1 2.0 - 4.0 08/07 [facility] CHEM PANEL B/C Ratio 15 6 - 25 08/07 [facility] CHEM PANEL eGFR 61 08/07 [facility] Comment: The [facility] eGFR is calculated using the CKD-EPI [...] Magnesium 1.9 1.8 - 2.4 08/07 Lvl [facility] HEMATOLOGY MPV 8.8 7.4 - 10.4 08/07 [facility] HEMATOLOGY Platelet 54 133 - 450 08/07 [facility] HEMATOLOGY MCHC 33.1 32.0 - 12 MH 36.0 /2014 [facility] HEMATOLOGY RDW 14.7 11.5 - 08/07 MH 14.5 /2014 [facility] HEMATOLOGY MCV 97.0 80.0 - 08/07 MH 98.0 /2014 [facility] HEMATOLOGY MCH 32.1 27.0 - 12 MH 31.0 /2014 [facility] HEMATOLOGY RBC 3.54 4.20 - 12 MH 5.40 /2014 [facility] HEMATOLOGY WBC 3.6 3.7 - 10.4 08/07 [facility] HEMATOLOGY Hct 34.3 36.0 - 08/07 MH 48.0 [facility] HEMATOLOGY Hgb 11.4 12.0 - 12 MH 16.0 /2014 [facility] HEMATOLOGY Monocytes # 0.2 0.0 - 0.8 08/07 [facility] HEMATOLOGY Eosinophils 1.3 0.0 - 4.0 08/07 [facility] HEMATOLOGY Monocytes 7.0 2.0 - 12.0 08/07 [facility] HEMATOLOGY Lymphocytes 1.1 1.0 - 5.5 / MH # /2015 [facility] HEMATOLOGY Basophils 0.6 0.0 - 1.0 08/07 [facility] HEMATOLOGY Segs-Bands # 2.2 1.5 - 8.1 08/07 [facility] HEMATOLOGY Segs 61.3 45.0 - 08/07 MH 75.0 /2014 [facility] HEMATOLOGY Lymphocytes 29.8 20.0 - 08/07 MH 40.0 /2014 [facility] URINE AND UA Nitrite Negative Negative 08/06 STOOL (08/06/15 3:01 PM) /2014 [facility] URINE AND UA Leuk Est Large Negative 08/06 STOOL *ABN* /2014 [facility] (08/06/15 3:01 PM) URINE AND UA Blood Moderate Negative 08/06 STOOL *ABN* /2014 [facility] (08/06/15 3:01 PM) URINE AND UA Bili Negative Negative 08/06 STOOL *NA* /2014 [facility] (08/06/15 3:01 PM) URINE AND UA >=8.0 0.1 - 1.0 08/06 STOOL Urobilinogen * [facility] (08/06/15 3:01 PM) URINE AND UA Color Yellow Yellow 08/06 STOOL *NA* /2014 (08/06/15 3:01 PM) URINE AND UA Turbidity Cloudy Clear 08/06 STOOL *ABN* /2014 [facility] (08/06/15 3:01 PM) URINE AND UA Glucose Negative Negative 08/06 STOOL (08/06/15 3:01 PM) /2014 [facility] URINE AND UA Ketones Negative Negative 08/06 STOOL *NA* /2014 [facility] (08/06/15 3:01 PM) URINE AND UA Spec Grav 1.015 <=1.030 08/06 STOOL [place] URINE AND UA pH 6.5 5.0 - 8.0 08/06 STOOL [place] URINE AND UA Protein 30 mg/dL Negative 08/06 STOOL mg/dL /2014 [facility] URINE AND UA Sq Epi Few /LPF Few /LPF 08/06 STOOL [facility] URINE AND UA [place] Yeast Many /HPF None Seen 08/06 STOOL [...] Est Moderate Negative 08/06 STOOL *ABN* /2014 [facility] (08/05/15 10:40 PM) URINE AND [...] Color Yellow Yellow 08/06 STOOL *NA* /2014 [facility] (08/05/15 10:40 PM) URINE AND UA Protein Negative Negative 08/06 STOOL (08/05/15 10:40 PM) [facility] URINE AND UA pH 6.0 5.0 - 8.0 08/06 MH STOOL /2014 [facility] CARDIAC CK MB 5.3 0.5 - 3.6 08/06 ENZYMES /2014 [facility] CARDIAC Total CK 116 12 - 191 08/06 ENZYMES [facility] CARDIAC BNP 45 <=100 08/06 ENZYMES pg/mL /2014 [facility] CARDIAC Troponin-I <0.02 0.00 - 12 ENZYMES 0.40 /2014 [facility] CARDIAC CK MB Index 4.6 0.0 - 2.5 08/06 ENZYMES [facility] CHEM PANEL Ammonia 47.0 <=45.0 08/06 uMol/L /2014 [facility] CHEM PANEL Alk Phos 118 39 - 136 08/06 [facility] CHEM PANEL Total 7.4 6.4 - 8.4 08/06 Protein /2014 [facility] CHEM PANEL Calcium Lvl 8.5 8.5 - 10.5 08/06 [facility] CHEM PANEL eGFR 67 08/06 [facility] Comment: The [facility] eGFR is calculated using the CKD-EPI [...] Bili Total 1.0 0.2 - 1.3 08/06 [facility] CHEM PANEL A/G Ratio 0.6 0.7 - 1.6 08/06 [facility] CHEM PANEL ALT 21 0 - 65 08/06 [facility] CHEM PANEL Albumin Lvl 2.7 3.5 - 5.0 08/06 [facility] CHEM PANEL AST 27 0 - 37 08/06 [facility] CHEM PANEL AGAP 11.5 10.0 - 08/06 MH 20.0 /2014 [facility] CHEM PANEL Globulin 4.7 2.0 - 4.0 12/ /2014 [facility] CHEM PANEL B/C Ratio 14 6 - 25 12 [facility] CHEM PANEL BUN 11 7 - 22 08/06 [facility] CHEM PANEL Chloride Lvl 106 95 - 109 12 [facility] CHEM PANEL Creatinine 0.81 0.50 - 12 Lvl 1.40 /2014 [facility] CHEM PANEL Potassium 3.5 3.5 - 5.1 12 Lvl /2014 [facility] CHEM PANEL Sodium Lvl 140 135 - 145 12 [facility] CHEM PANEL CO2 26 24 - 32 12 [facility] CHEM PANEL Glucose Lvl 109 70 - 99 12 [facility] HEMATOLOGY MPV 9.1 7.4 - 10.4 08/06 [facility] HEMATOLOGY RDW 15.4 11.5 - 12 14.5 /2014 [facility] HEMATOLOGY Platelet 70 133 - 450 12 /2014 [facility] HEMATOLOGY MCHC 33.1 32.0 - 12 36.0 /2014 [facility] HEMATOLOGY MCH 32.1 27.0 - 12 31.0 /2014 [facility] HEMATOLOGY MCV 97.2 80.0 - 12/ 98.0 /2014 [facility] HEMATOLOGY Hct 36.5 36.0 - 12 48.0 /2014 [facility] HEMATOLOGY Hgb 12.1 12.0 - 12 16.0 /2014 [facility] HEMATOLOGY RBC 3.76 4.20 - 12 MH 5.40 /2014 [facility] HEMATOLOGY WBC 6.0 3.7 - 10.4 08/06 /2014 [facility] HEMATOLOGY Monocytes # 0.5 0.0 - 0.8 08/06 /2014 [facility] HEMATOLOGY Eosinophils 0.1 0.0 - 0.5 12/08 MH # /2015 [facility] HEMATOLOGY Lymphocytes 1.8 1.0 - 5.5 12/08 MH # /2015 [facility] HEMATOLOGY Basophils 0.6 0.0 - 1.0 08/06 /2014 [facility] HEMATOLOGY Segs-Bands # 3.6 1.5 - 8.1 08/06 /2014 [facility] HEMATOLOGY Monocytes 8.4 2.0 - 12.0 12/ /2014 [facility] HEMATOLOGY Eosinophils 2.0 0.0 - 4.0 / /2014 [facility] HEMATOLOGY Lymphocytes 29.3 20.0 - 12 MH 40.0 /2014 [facility] HEMATOLOGY Segs 59.7 45.0 - 12 [...] PANEL CO2 26 24 - 32 08/05 [facility] CHEM PANEL Glucose Lvl 93 70 - 99 08/05 [facility] CHEM PANEL Sodium Lvl 140 135 - 145 08/05 [facility] CHEM PANEL BUN 12 7 - 22 08/05 [facility] CHEM PANEL Creatinine 0.88 0.50 - 08/05 Lvl 1.40 [facility] CHEM PANEL eGFR 60 08/05 [facility] Comment: The [facility] eGFR is calculated using the CKD-EPI [...] Bili Total 0.9 0.2 - 1.3 08/05 [facility] CHEM PANEL Alk Phos 126 39 - 136 08/05 [facility] CHEM PANEL Albumin Lvl 2.7 3.5 - 5.0 08/05 [facility] CHEM PANEL ALT 22 0 - 65 08/05 [facility] CHEM PANEL AST 27 0 - 37 12 /2014 [facility] CHEM PANEL AGAP 11.8 10.0 - 12 MH 20.0 /2014 [facility] CHEM PANEL B/C Ratio 14 6 - 25 08/05 /2014 [facility] CHEM PANEL A/G Ratio 0.6 0.7 - 1.6 08/05 /2014 [facility] CHEM PANEL Globulin 4.6 2.0 - 4.0 08/05 [facility] HEMATOLOGY MPV 8.9 7.4 - 10.4 08/05 /2014 [facility] HEMATOLOGY RDW 15.3 11.5 - 08/05 MH 14.5 /2014 [facility] HEMATOLOGY Platelet 69 133 - 450 12 [facility] HEMATOLOGY Hct 37.6 36.0 - 08/05 MH 48.0 /2014 [facility] HEMATOLOGY MCHC 32.8 32.0 - 08/05 MH 36.0 /2014 [facility] HEMATOLOGY Hgb 12.4 12.0 - 08/05 MH 16.0 /2014 [facility] HEMATOLOGY MCV 96.5 80.0 - 08/05 98.0 /2014 [facility] HEMATOLOGY MCH 31.7 27.0 - 08/05 MH 31.0 /2014 [facility] HEMATOLOGY WBC 6.2 3.7 - 10.4 08/05 /2014 [facility] HEMATOLOGY RBC 3.90 4.20 - 08/05 MH 5.40 /2014 [facility] HEMATOLOGY Monocytes # 0.5 0.0 - 0.8 08/05 /2014 [facility] HEMATOLOGY Basophils 0.6 0.0 - 1.0 08/05 /2014 [facility] HEMATOLOGY Segs-Bands # 4.2 1.5 - 8.1 08/05 /2014 [facility] HEMATOLOGY Eosinophils 0.1 0.0 - 0.5 08/05 MH # /2014 [facility] HEMATOLOGY Lymphocytes 1.4 1.0 - 5.5 08/05 MH # /2014 [facility] HEMATOLOGY Lymphocytes 22.3 20.0 - 12 MH 40.0 /2014 [facility] HEMATOLOGY Monocytes 7.3 2.0 - 12.0 08/05 [facility] HEMATOLOGY Eosinophils 1.4 0.0 - 4.0 08/05 [facility] HEMATOLOGY Segs 68.4 45.0 - 08/05 MH 75.0 /2014 [facility] HEMATOLOGY Basophils 0.4 0.0 - 1.0 04/19 [facility] HEMATOLOGY Monocytes # 0.9 0.0 - 0.8 04/19 /2013 [facility] HEMATOLOGY Lymphocytes 1.0 1.0 - 5.5 04/19 MH # /2014 [facility] HEMATOLOGY Segs-Bands # 4.2 1.5 - 8.1 04/19 /2013 [facility] HEMATOLOGY Eosinophils 0.2 0.0 - 0.5 04/19 MH # /2013 [facility] HEMATOLOGY Eosinophils 2.7 0.0 - 4.0 04/19 /2013 [facility] HEMATOLOGY Monocytes 13.7 2.0 - 12.0 04/19 /2013 [facility] HEMATOLOGY Lymphocytes 16.6 20.0 - 04/19 MH 40.0 /2013 [facility] HEMATOLOGY Segs 66.6 45.0 - 04/19 MH 75.0 /2013 [facility] HEMATOLOGY MCHC 33.3 32.0 - 04/19 MH 36.0 /2013 [facility] HEMATOLOGY RDW 15.2 11.5 - 04/19 MH 14.5 /2013 [facility] HEMATOLOGY MCH 32.3 27.0 - 04/19 MH 31.0 /2013 [facility] HEMATOLOGY MCV 96.9 80.0 - 04/19 98.0 /2013 [facility] HEMATOLOGY Hct 30.1 36.0 - 04/19 MH 48.0 /2013 [facility] HEMATOLOGY Platelet 67 133 - 450 04/19 /2013 [facility] HEMATOLOGY MPV 8.4 7.4 - 10.4 04/19 /2013 [facility] HEMATOLOGY Hgb 10.0 12.0 - 04/19 16.0 /2013 [facility] HEMATOLOGY RBC 3.11 4.20 - 04/19 MH 5.40 /[address] [facility] WBC 6.3 3.7 - 10.4 04/19 [facility] CHEM PANEL Globulin 4.8 2.0 - 4.0 04/13 [facility] CHEM PANEL A/G Ratio 0.6 0.7 - 1.6 04/13 [facility] CHEM PANEL AGAP 13.4 10.0 - 04/13 MH 20.0 [facility] CHEM PANEL B/C Ratio 9 6 - 25 04/13 [facility] CHEM PANEL eGFR 59 04/13 <sup>1</sup>R esult [facility] Comment: The eGFR is calculated using [...] Albumin Lvl 2.9 3.5 - 5.0 04/13 [facility] CHEM PANEL ALT 23 0 - 65 04/13 [facility] CHEM PANEL AST 44 0 - 37 04/13 [facility] CHEM PANEL Alk Phos 122 39 - 136 04/13 [facility] CHEM PANEL Total 7.7 6.4 - 8.4 04/13 [facility] CHEM PANEL Bili Total 1.5 0.2 - 1.3 04/13 [facility] CHEM PANEL Sodium Lvl 144 135 - 145 04/13 [facility] CHEM PANEL Potassium 3.4 3.5 - 5.1 04/13 Lvl [facility] CHEM PANEL Chloride Lvl 106 95 - 109 04/13 [facility] CHEM PANEL CO2 28 24 - 32 04/13 [facility] CHEM PANEL Calcium Lvl 8.8 8.5 - 10.5 04/13 [facility] CHEM PANEL Creatinine 0.9 0.5 - 1.4 04/13 Lvl [facility] CHEM PANEL Glucose Lvl 71 70 - 99 04/13 <sup>2</sup>I nterpretive [facility] Data: Adult reference range values reflect the clinical guidelines
of the [place] [employer]. CHEM PANEL BUN 8 7 - 22 04/13 [facility] CHEM PANEL A/G Ratio 0.6 0.7 - 1.6 04/13 [facility] CHEM PANEL Globulin 4.8 2.0 - 4.0 04/13 [facility] CHEM PANEL Bili 0.8 0.0 - 1.0 04/13 [facility] CHEM PANEL ALT 23 0 - 65 04/13 [facility] CHEM PANEL Alk Phos 122 39 - 136 04/13 [facility] CHEM PANEL AST 45 0 - 37 08 /2013 [facility] CHEM PANEL Bili Direct 0.5 0.0 - 0.3 04/13 /2013 [facility] CHEM PANEL Bili Total 1.3 0.2 - 1.3 04/13 [facility] CHEM PANEL Total 7.7 6.4 - 8.4 04/13 Protein /2013 [facility] CHEM PANEL Albumin Lvl 2.9 3.5 - 5.0 04/13 /2013 [facility] HEMATOLOGY MCH 32.1 27.0 - 08 MH 31.0 /2013 [facility] HEMATOLOGY RDW 14.6 11.5 - 08 MH 14.5 /2013 [facility] HEMATOLOGY MCHC 33.1 32.0 - 08 36.0 /2013 [facility] HEMATOLOGY Platelet 76 133 - 450 04/13 /2013 [facility] HEMATOLOGY RBC 3.79 4.20 - 04/13 MH 5.40 /2013 [facility] HEMATOLOGY Hct 36.7 36.0 - 04/13 48.0 /2013 [facility] HEMATOLOGY MCV 97.0 81.0 - 04/13 99.0 /2013 [facility] HEMATOLOGY Hgb 12.1 12.0 - 04/13 16.0 /2013 [facility] HEMATOLOGY WBC 4.6 3.7 - 10.4 04/13 /2013 [facility] HEMATOLOGY MPV 8.9 7.4 - 10.4 04/13 /2013 [facility] HEMATOLOGY Segs 52.6 45.0 - 04/13 75.0 /2013 [facility] HEMATOLOGY Monocytes # 0.6 0.0 - 0.8 04/13 /2013 [facility] HEMATOLOGY Eosinophils 0.1 0.0 - 0.5 04/13 MH # /2014 [facility] HEMATOLOGY Basophils 1.0 0.0 - 1.0 04/13 /2013 [facility] HEMATOLOGY Segs-Bands # 2.4 1.5 - 8.1 04/13 /2013 [facility] HEMATOLOGY Lymphocytes 1.5 1.0 - 5.5 04/13 MH # /2014 [facility] HEMATOLOGY Lymphocytes 32.1 20.0 - 08 MH 40.0 /2013 [facility] HEMATOLOGY Monocytes 12.2 2.0 - 12.0 04/13 /2013 [facility] HEMATOLOGY Eosinophils 2.1 0.0 - 4.0 04/13 /2013 [facility] CHEM PANEL AST 43 0 - 37 07 /2013 [facility] CHEM PANEL Albumin Lvl 2.9 3.5 - 5.0 03/06 MH [facility] CHEM PANEL Total 7.7 6.4 - 8.4 / MH Protein /2013 [facility] CHEM PANEL Bili Direct 0.5 0.0 - 0.3 03/06 MH [facility] CHEM PANEL Alk Phos 137 39 - 136 / MH [facility] CHEM PANEL Bili Total 1.4 0.2 - 1.3 03/06 [facility] CHEM PANEL ALT 22 0 - 65 / MH [facility] CHEM PANEL Bili 0.9 0.0 - 1.0 / MH Indirect /2013 [facility] CHEM PANEL Globulin 4.8 2.0 - 4.0 03/06 MH [facility] CHEM PANEL A/G Ratio 0.6 0.7 - 1.6 03/06 [facility] ELECTROLYT AGAP 8.9 10.0 - 07/ MH ES 20.0 /2013 [facility] ELECTROLYT eGFR 59 07 <sup>1</sup>R MH ES esult [facility] Comment: The eGFR is calculated using [...] 28 24 - 32 / MH ES [facility] ELECTROLYT Calcium Lvl 8.7 8.5 - 10.5 03/06 MH ES [facility] ELECTROLYT BUN 9 7 - 22 / MH ES [facility] ELECTROLYT Creatinine 0.9 0.5 - 1.4 / MH ES Lvl /2013 [facility] ELECTROLYT Sodium Lvl 140 135 - 145 03/06 MH [facility] ELECTROLYT Potassium 3.9 3.5 - 5.1 03/06 ES Lvl /2013 [facility] ELECTROLYT Chloride Lvl 107 95 - 109 03/06 [facility] ELECTROLYT Glucose Lvl 84 70 - 99 03/06 <sup>2</sup>I nterpretive [facility] Data: Adult reference range values reflect the clinical guidelines
of the [place] [employer]. HEMATOLOGY Hgb 11.9 12.0 - 03/06 16.0 /2013 [facility] HEMATOLOGY Hct 35.2 36.0 - 03/06 48.0 /2013 [facility] HEMATOLOGY Platelet 80 133 - 450 03/06 [facility] HEMATOLOGY WBC 4.4 3.7 - 10.4 03/06 [facility] HEMATOLOGY PT 15.9 12.0 - 03/06 14.7 [facility] HEMATOLOGY INR 1.29 0.85 - 03/06 <sup>3</sup>I 1.17 nterpretive [facility] Data: RECOMMENDED RANGES FOR PROTIME INR:
2.0-3.0 for most medical and surgical thromboemboli c states.
2.5-3.5 for artificial heart valves and recurrent embolism.<br/ >
INR SHOULD BE USED ONLY FOR PATIENTS ON STABLE ANTICOAGULANT THERAPY. 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 Contrast administration demonstrates moderate bilateral hydronephrosis. Subsequently bilateral ureteral stents were placed. Refer to operative report for full details. SL: BRUNA-M PET CT Colorectal CA Patient Name: EDGARD DÍAZ 03/04/2017 [facility] restaging : 1930; Age: 86 years y/o Female MR: [id number] Study: PET CT Colorectal CA restaging 03/04/2017 [...] urinary bladder suspicious for chronic cystitis. SL: [id number] Carotid artery Doppler CAROTID DOPPLER 08/06/2015 [facility] US HISTORY: Mental status changes. Encephalopathy. [...] Chest 1view DX Chest one view: 08/05/2015 [facility] COMPARISON: 04/19/2014 FINDINGS: Limited AP portable [...] CT PROCEDURE: Brain wo contrast CT 08/05/2015 [facility] REASON FOR EXAM: pt from IV [...] 2 views EXAM: Chest 2 views 04/19/2014 [facility] DATE: Apr 19, 2014 09:48:02 [...] PET CT Colorectal CA PET/CT SCAN: 03/24/2014 [facility] restaging TECHNIQUE: 14 mCi of FDG [...] hypertension. SL:[address] Colorectal CA 09/14/2013 [facility] restaging EXAM: PET/CT HISTORY: Colon cancer, [...] Comments Source Systolic (mm Hg) 125 08/03/2017 [facility] Diastolic (mm Hg) 71 08/03/2017 [facility] Systolic (mm Hg) 129 08/03/2017 [facility] Diastolic (mm Hg) 66 08/03/2017 [facility] Systolic (mm Hg) 128 08/03/2017 [facility] Diastolic (mm Hg) 59 08/03/2017 [facility] Respitory Rate 16 08/03/2017 [facility] Respitory Rate 11 08/03/2017 [facility] Respitory Rate 9 08/03/2017 [facility] Temperature Oral (F) 97.3 F 08/02/2017 [facility] Heart Rate 70 08/02/2017 [facility] BMI Calculated 27.18 08/02/2017 [facility] Height 165.1 cm 08/02/2017 [facility] Weight 74.091 08/02/2017 [facility] Systolic (mm Hg) 99 04/21/2017 [facility] Diastolic (mm Hg) 56 04/21/2017 [facility] Respitory Rate 18 04/21/2017 [facility] Respitory Rate 18 04/21/2017 [facility] Systolic (mm Hg) 114 04/21/2017 [facility] Diastolic (mm Hg) 58 04/21/2017 [facility] Systolic (mm Hg) 109 04/21/2017 [facility] Diastolic (mm Hg) 56 04/21/2017 [facility] Respitory Rate 12 04/21/2017 [facility] Height 165.1 cm 04/13/2017 [facility] Weight 74.545 04/13/2017 [facility] BMI Calculated 27.35 04/13/2017 [facility] Temperature Oral (F) 97.4 F 04/13/2017 [facility] Heart Rate 80 04/13/2017 [facility] Systolic (mm Hg) 118 02/23/2017 [facility] Diastolic (mm Hg) 61 02/23/2017 [facility] Respitory Rate 32 02/23/2017 [facility] Respitory Rate 28 02/23/2017 [facility] Systolic (mm Hg) 109 02/23/2017 [facility] Diastolic (mm Hg) 60 02/23/2017 [facility] Systolic (mm Hg) 109 02/23/2017 [facility] Diastolic (mm Hg) 61 02/23/2017 [facility] Respitory Rate 23 02/23/2017 [facility] Temperature Oral (F) 97.4 F 02/16/2017 [facility] Heart Rate 72 02/16/2017 [facility] BMI Calculated 28.02 02/16/2017 [facility] Weight 76.364 02/16/2017 [facility] Height 165.1 cm 02/16/2017 [facility] Weight 159 08/12/2015 [id number]. [id number] Height 64.4 08/12/2015 2.16.840.1.851815. [id number] Temperature Oral (F) 97.6 F 08/12/2015 2.16.840.1.065880. [id number] Heart Rate 93 08/12/2015 2.16.840.1.758799. [id number] Diastolic (mm Hg) 63 08/12/2015 2.16.840.1.433894. [id number] Systolic (mm Hg) 114 08/12/2015 2.16.840.1.880466. [id number] Systolic (mm Hg) 102 08/07/2015 [facility] Diastolic (mm Hg) 66 08/07/2015 [facility] Temperature Oral (F) 97.6 F 08/07/2015 [facility] Respitory Rate 16 08/07/2015 [facility] Heart Rate 77 08/07/2015 [facility] Respitory Rate 15 08/07/2015 [facility] Temperature Oral (F) 97.4 F 08/07/2015 [facility] Heart Rate 81 08/07/2015 [facility] Systolic (mm Hg) 100 08/07/2015 [facility] Diastolic (mm Hg) 66 08/07/2015 [facility] Systolic (mm Hg) 115 08/07/2015 [facility] Diastolic (mm Hg) 73 08/07/2015 [facility] Heart Rate 83 08/07/2015 [facility] Respitory Rate 16 08/07/2015 [facility] Temperature Oral (F) 97.4 F 08/07/2015 [facility] BMI Calculated 26.89 08/06/2015 [facility] Weight [...] 16 04/20/2014 [facility] Heart Rate 92 04/20/2014 [facility] Temperature Oral (F) 98.2 F 04/20/2014 [facility] Systolic (mm Hg) 109 04/20/2014 [facility] Diastolic (mm Hg) 70 04/20/2014 [facility] Heart Rate 90 04/20/2014 [facility] Temperature Oral (F) 97.9 F 04/20/2014 [...] 03/13/2014 [facility] Systolic (mm Hg) 113 03/13/2014 [facility] Diastolic (mm Hg) 54 03/13/2014 [facility] Temperature Oral (F) 97.6 F 03/06/2014 [facility] Height 165.1 cm 03/06/2014 [facility] Weight 65.909 03/06/2014 [facility] BMI Calculated 24.18 03/06/2014 [facility] Weight 149 02/02/2014 [facility] Temperature [...] Number For Provider Date Date Visit Outpatient [id number] COLON PING NORMAN 09/14 Active [facility] Outpatient [id number] 153.9 PING NORMAN 09/20 Active [facility] [id number] [facility]13 [facility] Outpatient 0 [facility] Office [id number] Dakota Michele, 03/23 03/23 [id number] General Surgery 350 [facility] Outpatient [id number] Ping Norman 03/24 03/25 [facility] Lab Report [id number] Dakota Michele, 03/26 03/26 [place] [id number] [facility] Lab Report [id number] odoros 04/12 04/12 [place] 15885 ian Medical MD [facility] OBS [id number] Dakota Michele 04/18 04/[address] [address] [facility] Office [id number] Dakota Michele, 04/27 04/27 [place] Visit [id number] [facility] SE General Surgery [facility] OP [id number] Ping Norman 08/05 09/04 [place] Recurring [facility] OBS [id number] Van 08/06 08/07 [place] Observation 3 [facility] [id number] 08/12 08/12 2.16.840 Medical [id number] /2014 .1.41181 Group [id number]. 3b4 11.58443 [facility]patient [id number] [facility] 0 [facility] [facility] [id number] [facility]/15 [facility] 1 VOLOYIAN [place] [facility] [id number] [facility] 3 VOLOY [place] Outpatient [id number] [facility]/23 Active [facility] 2 VOL [facility] Bedded [id number] [facility] 02/23 02/23 [place] Outpatient 4 Volian /2016 [facility] [id number] [facility] 03/[facility] 03/05 [facility] 5 Voloyiannis /2016 [facility] Outpatient [id number] [facility] 03/[address] [facility] [place] Outpatient [id number] [facility] [facility] VOLOY [facility] Surgery [id number] [facility] 04/21 04/21 [place] 7 Voloyiannis /2016 [facility] Outpatient [id number] ROMAN FOSTER 05/12 Active [facility] [place] Outpatient [id number] NINO LAPROSPER 05/17 Active [facility] [place] Outpatient [id number] NURSE VISIT 06/[address] [facility] Day Surgery [id number] N[facility] 08/03 08/03 [facility] Outpatient [id number] NINO WILSON 08/26 Active [facility] [place] Outpatient [id number] JOVANA CUI 08/[address] [facility] Ambulatory [id number] Jovana Karli 08/26 08/26 [facility]rology [facility] Outpatient [id number] [facility] 08/26 08/27 [facility] Outpatient [id number] [facility] 09/[address] [facility] Outpatient [id number] N[facility] 09/27 09/28 [facility] Outpatient [id number] [facility] 01/[address] [facility] Ambulatory [id number] [facility] 01/14 01/14 Urology Pre-Reg [facility] Procedures Procedure Code Date Perfomer Comments Source Cystourethroscopy, 37966 Medical with removal of 7 Group foreign body, calculus, or ureteral stent from urethra or bladder (separate procedure); simple Hernia repair [id number] Medical 4 Group,[facility] Cannulation of [id number] Medical Portacath Group,[facility] Cardiac [id number] 1994 Medical catheterization<sup>1 Group, </sup> [facility] Cataract extraction [id number] Medical and insertion of Group, intraocular lens [facility] Cholecystectomy [id number] Medical Group,[facility] Colonoscopy [id number] Medical Group,[facility] Hysterectomy [id number] Medical Group,[facility] Knee [id number] 2011 Medical replacement<sup>2</red Group, p> [facility] Operation [id number] Medical Group,[facility] Partial resection of [id number] Medical colon Group,[facility] Assessment and Plan Assessment and Plan Date Source Extracted from:Title: History and Physical 08/03/2017 [facility] Author: Nino Wilson MD Date: 08/03/17 Renal calculi Extracted from:Title: Clinical Document 04/21/2017 [facility] Author: Galdino Ureña MD Date: 04/21/17 PREOPERATIVE DIAGNOSIS: Personal history of colon cancer. POSTOPERATIVE DIAGNOSIS: Personal history of colon cancer. PROCEDURE: Port-A-Cath removal. SURGEON: Dr. Ureña. ASSISTANT BRAND MANAGER: None. ANESTHESIA: General. IV FLUIDS: 200 [...] We placed a 2- 0 Vicryl in [id number] fashion at the site of the Port-A-Cath [...] the patients satisfaction Extracted from:Title: preop 02/23/2017 [facility] Author: Roman Foster, MPH, PA-C Date: [...] and Dr. Galdino Ureña, who provided a [id number] visit and performed the physical exam, assessment and plan, and the note transcribed by Roman Mason total exam time, coordination of care, education >20 minutes [3] Extracted from:Title: Clinical Document 08/07/2015 [facility] Author: Van Luu MD Date: 08/06/15 Chart reveiwed. Patient seen and examined. WIll continue to follow. Extracted from:Title: Clinical Document 04/20/2014 [facility] Author: Dakota Michele MD Date: 04/19/14 Surgery Progress Note Attending: Dakota Michele MD Service: Plastic Surgery Service Code status: None Specified=FULL CODE Reason for Admission: 553.2 Working DRG: None Documented Isolation: None Documented Consulting Physicians: Dakota Michele MD Office: MSO: [id number] Service: General Surgery SUBJECTIVE: Doing OK. Still [...] Present Illness: Oncologist - Dr. Marlyn Norman; Fingernail Sculptor - Dr. Angel Mike ............Sharifa Tatum March [...] [facility] HERNIA WITHOUT MENTION OBSTRUCTION/GANGRENE (ICD-553.1) ( [id number]) Assessment: Unchanged Will offer repair as she desires intervention Wll request cardiac clearance Onel with this latest PET to reaffirt cancer free state Discussed case with referring MD Orders: [facility] Visit, [facility] - 99891 ([id number]) Problem # 2: CARCINOMA, ASCENDING COLON (ICD-153.6) (UTN39-S37.2) Assessment: Improved Post excision and allears to be disease free Orders: Office Visit, [facility] ([place] Level III - 61197 ([id number]) Patient Instructions: 1) Cardiac eval for pre [...] on: 08/03/17 Social History ElementQualifiersDate Reported 08/12/2015 [id number] Tobacco Use: .54214 . Are you a: never smoker Aug [...]
--- OUTSIDE RECORDS SUMMARY | 2019-05-12 09:01 | XMS REPORT | CCD ---
:[address] [facility] Care Team Providers Name Role Phone Marlyn Ceballos Referring Provider Allergies, Adverse Reactions, Alerts Substance Reaction Status morphine Active Problem List Condition Effective Dates Status CAD - Coronary artery disease Active Cancer of colon 05/10/2011 Active Cirrhosis of liver Active Esophageal varices Active Hepatitis C Active Pneumonia Active
--- OUTSIDE RECORDS SUMMARY | 2019-05-12 09:03 | XMS REPORT ---
[...] End Status Dosage Date Date [facility]anolol [facility] 73916[facility]68 20 mg Orally Active 1 tablet 73-00 daily Gabapentin [facility] 97761-74 300 MG Orally Active 1 capsule 39-19 twice a day (bid) B-12 [facility] 46618-02 2500 MCG Active Unknown 92-72 Sublingual Ocuvite [facility] 70717-51 Orally daily Active 1 tablet 87-60 Lasix [facility] 59796-98 40 MG Orally Active 1 tablet 60-13 Once a day Ciprofloxacin [facility] 13769-88 500 MG/5ML (10%) Active 5 ml 93-01 Orally Twice a day [facility]act[facility] 716[facility]81 25 MG Orally Active 1 tablet 03-11 daily Caltrate 600+D [facility] 37400-83 600-400 MG-UNIT Active 1 tablet 86-00 Orally [...]
--- OUTSIDE RECORDS SUMMARY | 2019-05-12 09:03 | XMS REPORT | Continuity of Care Document ---
:1930 Author Organization [facility] Care Team Providers Name Role Phone MD Michele Hoang Unavailable Unavailable Insurance Providers Payer name Policy type / Policy ID Covered republican ID Policy Mont[place] Coverage type MEDICARE B-[place]: [employer] AARP HEALTHCARE OPTIONS (MEDICARE SUPPLEMENT AARP [...] [facility] [place] Mar 26, 2014 Allergies, Adverse Reactions, Alerts [...]
--- OUTSIDE RECORDS SUMMARY | 2019-05-12 09:03 | XMS REPORT ---
:1930 Author Organization [facility] Address [address] [place] [address] [address] [place] [address] Care Team Providers Name Role Phone MARY [...] Value Reference Range Comments ALPHA-FETOPROTEIN (BEAKER) (test copn=1182) 2.9 ng/mL <10.0 HEPATIC FUNCTION [id number] 16:38:00 Test Item Value Reference Range Comments TOTAL PROTEIN (BEAKER) (test lcfk=102) 9.0 gm/dL 6.0-8.3 ALBUMIN (BEAKER) (test vgko=2664) 2.8 g/dL 3.5-5.0 BILIRUBIN TOTAL (BEAKER) (test tdqm=228) 1.2 mg/dL 0.2-1.2 BILIRUBIN DIRECT (BEAKER) (test ofcd=991) 0.7 mg/dL 0.1-0.5 ALKALINE PHOSPHATASE (BEAKER) (test fiuj=518) 111 U/L 40-150 AST (SGOT) (BEAKER) (test idnw=892) 31 U/L 5-34 ALT (SGPT) (BEAKER) (test wqkw=352) 12 U/L 6-55 BASIC METABOLIC [id number] 16:38:00 Test Item Value Reference Range Comments SODIUM (BEAKER) (test 133 meq/L 136-145 xquq=654) POTASSIUM (BEAKER) (test 4.0 meq/L 3.5-5.1 rpqr=652) CHLORIDE (BEAKER) (test 100 meq/L 98-107 tayr=364) CO2 (BEAKER) (test 27 meq/L 22-29 hxxg=154) BLOOD UREA NITROGEN 20 mg/dL 7-21 (BEAKER) (test kdil=180) CREATININE (BEAKER) (test 1.07 mg/dL 0.57-1.25 klla=396) GLUCOSE RANDOM (BEAKER) 71 mg/dL 70-105 (test atzd=139) CALCIUM (BEAKER) (test 9.4 mg/dL 8.4-10.2 sxzv=425) EGFR (BEAKER) (test 49 mL/min/1.73 sq m ESTIMATED GFR IS NOT yqix=4969) ACCURATE CREATININE CLEARANCE IN PREDICTING GLOMERULAR FILTRATION RATE. ESTIMATED GFR IS NOT APPLICABLE FOR DIALYSIS PATIENTS. [id number] 16:33:00 Test Item Value Reference Range Comments AMMONIA (BEAKER) (test phpx=758) 40 mol/L 18-72 PROTHROMBIN [id number] 16:29:00 Test Item Value Reference Range Comments PROTIME (BEAKER) (test upvm=932) 16.5 seconds 11.7-14.7 INR (BEAKER) (test pmlx=409) 1.3 <=5.9 RECOMMENDED COUMADIN/WARFARIN INR THERAPY RANGESSTANDARD DOSE: 2.0 - 3.0 Includes: PROPHYLAXIS forvenous thrombosis, systemic embolization; TREATMENT for venous thrombosis and/or pulmonary embolus.HIGH RISK: Target INR is 2.5-3.5 for patients with mechanical heart valves.CBC W/PLT COUNT & AUTO [id number] 16:22:00 Test Item Value Reference Range Comments WHITE BLOOD CELL COUNT (BEAKER) (test dmag=607) 5.0 K/ L 3.5-10.5 RED BLOOD CELL COUNT (BEAKER) (test glht=884) 3.39 M/ L 3.93-5.22 HEMOGLOBIN (BEAKER) (test mmai=180) 10.7 GM/DL 11.2-15.7 HEMATOCRIT (BEAKER) (test jbce=960) 33.1 % 34.1-44.9 MEAN CORPUSCULAR VOLUME (BEAKER) (test focg=374) 97.6 fL 79.4-94.8 MEAN CORPUSCULAR HEMOGLOBIN (BEAKER) (test 31.6 pg 25.6-32.2 fgiv=283) MEAN CORPUSCULAR HEMOGLOBIN CONC (BEAKER) (test 32.3 GM/DL 32.2-35.5 zkct=011) RED CELL DISTRIBUTION WIDTH (BEAKER) (test 15.0 % 11.7-14.4 eylj=058) PLATELET COUNT (BEAKER) (test dqgz=365) 98 K/CU MM 150-450 MEAN PLATELET VOLUME (BEAKER) (test vrup=660) 10.0 fL 9.4-12.3 NUCLEATED RED BLOOD CELLS (BEAKER) (test 0 /100 WBC 0-0 gcro=763) NEUTROPHILS RELATIVE PERCENT (BEAKER) (test 71 % caon=127) LYMPHOCYTES RELATIVE PERCENT (BEAKER) (test 14 % xjzk=895) MONOCYTES RELATIVE PERCENT (BEAKER) (test 12 % cjgd=791) EOSINOPHILS RELATIVE PERCENT (BEAKER) (test 2 % jlin=897) BASOPHILS RELATIVE PERCENT (BEAKER) (test 1 % oagh=910) NEUTROPHILS ABSOLUTE COUNT (BEAKER) (test 3.51 K/ L 1.56-6.13 rsev=194) LYMPHOCYTES ABSOLUTE COUNT (BEAKER) (test 0.69 K/ L 1.18-3.74 yzzy=411) MONOCYTES ABSOLUTE COUNT (BEAKER) (test eudj=595) 0.62 K/ L 0.24-0.36 EOSINOPHILS ABSOLUTE COUNT (BEAKER) (test 0.10 K/ L 0.04-0.36 hoqf=111) BASOPHILS ABSOLUTE COUNT (BEAKER) (test kejs=755) 0.04 K/ L 0.01-0.08 IMMATURE GRANULOCYTES-RELATIVE PERCENT (BEAKER) 0 % 0-1 (test nvir=2349) ALPHA FETOPROTEIN (AFP), TUMOR [id number] 17:15:00 Test Item Value Reference Range Comments ALPHA-FETOPROTEIN (BEAKER) (test yxql=1497) 3.3 ng/mL <10.0 [id number] 16:34:00 Test Item Value Reference Range Comments MAGNESIUM (BEAKER) (test yuyh=000) 1.8 mg/dL 1.6-2.6 BASIC METABOLIC [id number] 16:34:00 Test Item Value Reference Range Comments SODIUM (BEAKER) (test 133 meq/L 136-145 ryil=849) POTASSIUM (BEAKER) (test 3.9 meq/L 3.5-5.1 abcm=784) CHLORIDE (BEAKER) (test 99 meq/L 98-107 dpid=457) CO2 (BEAKER) (test 25 meq/L 22-29 gnjj=391) BLOOD UREA NITROGEN 12 mg/dL 7-21 (BEAKER) (test rhvz=268) CREATININE (BEAKER) (test 0.97 mg/dL 0.57-1.25 rgbm=647) GLUCOSE RANDOM (BEAKER) 93 mg/dL 70-105 (test ljuv=999) CALCIUM (BEAKER) (test 9.0 mg/dL 8.4-10.2 bxvh=971) EGFR (BEAKER) (test 54 mL/min/1.73 sq m ESTIMATED GFR IS NOT yobg=1851) ACCURATE CREATININE CLEARANCE IN PREDICTING GLOMERULAR FILTRATION RATE. ESTIMATED GFR IS NOT APPLICABLE FOR DIALYSIS PATIENTS. Specimen slightly ictericHEPATIC FUNCTION [id number] 16:34:00 Test Item Value Reference Range Comments TOTAL PROTEIN (BEAKER) (test pjky=947) 8.0 gm/dL 6.0-8.3 ALBUMIN (BEAKER) (test neee=7768) 3.0 g/dL 3.5-5.0 BILIRUBIN TOTAL (BEAKER) (test ylvp=227) 1.9 mg/dL 0.2-1.2 BILIRUBIN DIRECT (BEAKER) (test jljb=419) 0.8 mg/dL 0.1-0.5 ALKALINE PHOSPHATASE (BEAKER) (test zcph=581) 122 U/L 40-150 AST (SGOT) (BEAKER) (test tpvf=149) 30 U/L 5-34 ALT (SGPT) (BEAKER) (test xzgy=541) 12 U/L 6-55 Specimen slightly ictericPROTHROMBIN [id number] 16:17:00 Test Item Value Reference Range Comments PROTIME (BEAKER) (test lfwz=989) 17.3 seconds 11.7-14.7 INR (BEAKER) (test vgqe=610) 1.4 <=5.9 RECOMMENDED COUMADIN/WARFARIN INR THERAPY RANGESSTANDARD DOSE: 2.0 - 3.0 Includes: PROPHYLAXIS forvenous thrombosis, systemic embolization; TREATMENT for venous thrombosis and/or pulmonary embolus.HIGH RISK: Target INR is 2.5-3.5 for patients with mechanical heart valves.CBC W/PLT COUNT & AUTO [id number] 16:17:00 Test Item Value Reference Range Comments WHITE BLOOD CELL COUNT (BEAKER) (test dvhy=927) 5.6 K/ L 3.5-10.5 RED BLOOD CELL COUNT (BEAKER) (test afbm=407) 3.83 M/ L 3.93-5.22 HEMOGLOBIN (BEAKER) (test lhps=411) 12.0 GM/DL 11.2-15.7 HEMATOCRIT (BEAKER) (test xelg=292) 36.8 % 34.1-44.9 MEAN CORPUSCULAR VOLUME (BEAKER) (test zdyb=361) 96.1 fL 79.4-94.8 MEAN CORPUSCULAR HEMOGLOBIN (BEAKER) (test 31.3 pg 25.6-32.2 lmku=042) MEAN CORPUSCULAR HEMOGLOBIN CONC (BEAKER) (test 32.6 GM/DL 32.2-35.5 rnzr=747) RED CELL DISTRIBUTION WIDTH (BEAKER) (test 15.9 % 11.7-14.4 uqlh=861) PLATELET COUNT (BEAKER) (test gcuu=863) 83 K/CU MM 150-450 MEAN PLATELET VOLUME (BEAKER) (test uamz=277) 11.1 fL 9.4-12.3 NUCLEATED RED BLOOD CELLS (BEAKER) (test 0 /100 WBC 0-0 gpat=676) NEUTROPHILS RELATIVE PERCENT (BEAKER) (test 54 % uukn=880) LYMPHOCYTES RELATIVE PERCENT (BEAKER) (test 36 % orlv=672) MONOCYTES RELATIVE PERCENT (BEAKER) (test 8 % lwni=021) EOSINOPHILS RELATIVE PERCENT (BEAKER) (test 2 % xrux=794) BASOPHILS RELATIVE PERCENT (BEAKER) (test 1 % ibvr=107) NEUTROPHILS ABSOLUTE COUNT (BEAKER) (test 3.01 K/ L 1.56-6.13 ysmx=276) LYMPHOCYTES ABSOLUTE COUNT (BEAKER) (test 1.98 K/ L 1.18-3.74 qjff=723) MONOCYTES ABSOLUTE COUNT (BEAKER) (test cmrq=262) 0.44 K/ L 0.24-0.36 EOSINOPHILS ABSOLUTE COUNT (BEAKER) (test 0.10 K/ L 0.04-0.36 xdef=805) BASOPHILS ABSOLUTE COUNT (BEAKER) (test qqzf=191) 0.04 K/ L 0.01-0.08 IMMATURE GRANULOCYTES-RELATIVE PERCENT (BEAKER) 0 % 0-1 (test bror=6984) ALPHA FETOPROTEIN (AFP), TUMOR [id number] 16:14:00 Test Item Value Reference Range Comments ALPHA-FETOPROTEIN (BEAKER) (test fzge=4969) 5.7 ng/mL <10.0 Effective 07/17/2014: Reference Range ChangeNew: <10.0 Previous: 0.0- [id number] 15:57:00 Test Item Value Reference Range Comments MAGNESIUM (BEAKER) (test eitf=141) 1.9 mg/dL 1.6-2.6 BASIC METABOLIC [id number] 15:57:00 Test Item Value Reference Range Comments SODIUM (BEAKER) (test 139 meq/L 136-145 aydd=505) POTASSIUM (BEAKER) (test 4.5 meq/L 3.5-5.1 hsqe=259) CHLORIDE (BEAKER) (test 105 meq/L 98-107 ypdc=178) CO2 (BEAKER) (test 25 meq/L 22-29 clbt=860) BLOOD UREA NITROGEN 15 mg/dL 7-21 (BEAKER) (test nlak=442) CREATININE (BEAKER) (test 0.95 mg/dL 0.57-1.25 xwuc=087) GLUCOSE RANDOM (BEAKER) 86 mg/dL 70-105 (test keca=193) CALCIUM (BEAKER) (test 9.4 mg/dL 8.4-10.2 mwse=067) EGFR (BEAKER) (test 56 mL/min/1.73 sq m ESTIMATED GFR IS NOT putu=4829) ACCURATE CREATININE CLEARANCE IN PREDICTING GLOMERULAR FILTRATION RATE. ESTIMATED GFR IS NOT APPLICABLE FOR DIALYSIS PATIENTS. Specimen slightly ictericHEPATIC FUNCTION [id number] 15:57:00 Test Item Value Reference Range Comments TOTAL PROTEIN (BEAKER) (test lucq=318) 7.6 gm/dL 6.0-8.3 ALBUMIN (BEAKER) (test hqsu=1809) 3.2 g/dL 3.5-5.0 BILIRUBIN TOTAL (BEAKER) (test kert=649) 1.8 mg/dL 0.2-1.2 BILIRUBIN DIRECT (BEAKER) (test bheg=134) 0.8 mg/dL 0.1-0.5 ALKALINE PHOSPHATASE (BEAKER) (test odeu=333) 112 U/L 40-150 AST (SGOT) (BEAKER) (test htjw=306) 33 U/L 5-34 ALT (SGPT) (BEAKER) (test glrr=189) 17 U/L 6-55 Specimen slightly ictericPROTHROMBIN [id number] 15:56:00 Test Item Value Reference Range Comments PROTIME (BEAKER) (test xdfv=424) 16.7 seconds 11.7-14.7 INR (BEAKER) (test tung=008) 1.4 <=5.9 RECOMMENDED COUMADIN/WARFARIN INR THERAPY RANGESSTANDARD DOSE: 2.0 - 3.0 Includes: PROPHYLAXIS forvenous thrombosis, systemic embolization; TREATMENT for venous thrombosis and/or pulmonary embolus.HIGH RISK: Target INR is 2.5-3.5 for patients with mechanical heart valves.CBC W/PLT COUNT & AUTO [id number] 15:56:00 Test Item Value Reference Range Comments WHITE BLOOD CELL COUNT (BEAKER) (test oytc=351) 5.3 K/ L 4.0-10.0 RED BLOOD CELL COUNT (BEAKER) (test wzsr=807) 4.21 M/ L 4.00-5.00 HEMOGLOBIN (BEAKER) (test dbjs=832) 14.1 GM/DL 12.0-15.0 HEMATOCRIT (BEAKER) (test susk=389) 41.7 % 36.0-45.0 MEAN CORPUSCULAR VOLUME (BEAKER) (test odap=293) 99.1 fL 82.0-99.0 MEAN CORPUSCULAR HEMOGLOBIN (BEAKER) (test 33.4 pg 27.0-33.0 zgck=245) MEAN CORPUSCULAR HEMOGLOBIN CONC (BEAKER) (test 33.7 GM/DL 32.0-36.0 gojw=814) RED CELL DISTRIBUTION WIDTH (BEAKER) (test 13.2 % 10.3-14.2 pklb=273) PLATELET COUNT (BEAKER) (test rvur=878) 77 K/CU MM 150-430 MEAN PLATELET VOLUME (BEAKER) (test jzoe=784) 8.4 fL 6.5-10.5 NUCLEATED RED BLOOD CELLS (BEAKER) (test 0 /100 WBC 0-0 dfzn=429) NEUTROPHILS RELATIVE PERCENT (BEAKER) (test 54 % xweu=127) LYMPHOCYTES RELATIVE PERCENT (BEAKER) (test 33 % qeuc=061) MONOCYTES RELATIVE PERCENT (BEAKER) (test 10 % ynrc=229) EOSINOPHILS RELATIVE PERCENT (BEAKER) (test 3 % rahk=115) BASOPHILS RELATIVE PERCENT (BEAKER) (test 0 % wcez=792) NEUTROPHILS ABSOLUTE COUNT (BEAKER) (test 2.86 K/ L 1.80-8.00 ugja=445) LYMPHOCYTES ABSOLUTE COUNT (BEAKER) (test 1.77 K/ L 1.48-4.50 dent=230) MONOCYTES ABSOLUTE COUNT (BEAKER) (test bzmv=057) 0.56 K/ L 0.00-1.30 EOSINOPHILS ABSOLUTE COUNT (BEAKER) (test 0.13 K/ L 0.00-0.50 ckmn=654) BASOPHILS ABSOLUTE COUNT (BEAKER) (test gxja=772) 0.02 K/ L 0.00-0.20 0.38OLSO-[id number] 11:05:00 Test Item Value Reference Range Comments POC-CREATININE (BEAKER) 0.9 mg/dL 0.6-1.3 TESTED AT [facility] [address] [facility] (test dksb=4809) [facility] [address] POC-EGFR (BEAKER) (test 59 mL/min/1.73M2 deox=5597)
--- OUTSIDE RECORDS SUMMARY | 2019-05-12 09:03 | XMS REPORT | Continuity of Care Document ---
:1930 Author Organization [facility] Care Team Providers Name Role Phone MD Michele Hoang Unavailable Unavailable Insurance Providers Payer name Policy type / Policy ID Covered republican ID Policy Mont[place] Coverage type [place]IC[place] [employer] AARP HEALTHCARE OPTIONS (MEDICARE SUPPLEMENT AARP HEALTHCARE [...] Location Date Office Visit Dakota Michele MD [facility] Apr 27, 2014 Surgery 350 [...]
--- OUTSIDE RECORDS SUMMARY | 2019-05-12 09:03 | XMS REPORT | Continuity of Care Document ---
:1930 Author Organization [facility] Care Team Providers Name Role Phone MD Niranjan, Galdino Unavailable Unavailable Insurance Providers Payer name Policy type / Policy ID Covered republican ID Policy Mont[place] Coverage type MEDIC[place] [employer] AARP HEALTHCARE OPTIONS (MEDICARE SUPPLEMENT AARP HEALTHCARE [...] Location Date Lab Report Galdino Ureña MD [facility] Apr 12, 2014 Allergies, Adverse Reactions, Alerts [...]
--- OUTSIDE RECORDS SUMMARY | 2019-05-12 09:03 | XMS REPORT | Continuity of Care Document ---
:1930 Author Organization [facility] Care Team Providers Name Role Phone MD Michele Hoang Unavailable Unavailable Insurance Providers Payer name Policy type / Policy ID Covered libertarian ID Policy Montoya Coverage type [place]IC[place] [email or web address] AARP HEALTHCARE OPTIONS (MEDICARE SUPPLEMENT AARP HEALTHCARE [...] Office Visit Dakota Michele MD [facility] Mar 23, 2014 Surgery 350 [...]
[2019-05-12 09:34] VITALS: O2SAT 98
[2019-05-12 09:43] VITALS: BMI 22.4
--- NOTE | 2019-05-12 11:19 | RAD REPORT ---
EXAM DESCRIPTION: US - Paracentesis Proc Guidance - 05/12/2019 10:26 am CLINICAL HISTORY: Liver disease with ascites FINDINGS: The risks, benefits and alternatives to the procedure were explained to the patient and in formed consent obtained. The skin and subcutaneous tissues were anesthetized with Lidocaine. Under sonographic guidance an 8 F rench catheter was placed into the right lower quadrant. 4 liters of yellow fluid was removed. The patient experienced no immediate complication. IMPRESSION: Paracentesis
[2019-05-12 14:03] VITALS: BP 99/48; TEMP 98.6
== END ==
LOC: DS 08:52
PROVIDERS: ATTEND Internal Medicine Gastroenterology
DX: R18.8 Other ascites (principal); K72.90 Hepatic failure, unspecified without coma; K74.60 Unspecified cirrhosis of liver; K76.0 Fatty (change of) liver, not elsewhere classified; L25.9 Unspecified contact dermatitis, unspecified cause; R60.0 Localized edema; K30 Functional dyspepsia
CPT/HCPCS: 96365; 49083; P9047

== ENCOUNTER 2019-05-19 08:22 | Day surgery (SDC) | payer OTHER ==
--- OUTSIDE RECORDS SUMMARY | 2019-05-19 08:25 | XMS REPORT | Clinical Summary ---
:1930 Author Organization [facility] Address [address] [place] [address] Care Team Providers Name Role Phone Kandy Castillo PA-C Physician Furniture Designer Unavailable Ankush Levine Referring Physician Fareed Ballesteros [...] infection 09/06/2014 Overview: SNOMED/[place] [id number] Last Assessment & Plan: Cirrhosis of liver [...] 05/31/2018 Telephone Hepatology Xiao Mckeon RN other after 05/18/2018 Family History Medical History Relation Name Comments [...] 10/31/2019 Office Visit Hepatology Lynn Murguia MD [address] [address] [phone] Procedures Procedure Name Priority Date/Time Associated Comments Diagnosis CBC W/PLT COUNT & Routine 08/10/2018 3:45 Hepatic cirrhosis Results for this AUTO DIFFERENTIAL PM STITCH SEPARATOR due to chronic procedure are in hepatitis C the results infection (HCC) section. Screening for cancer Encephalopathy AMMONIA Routine 08/10/2018 3:45 Hepatic cirrhosis Results for this PM STITCH SEPARATOR due to chronic procedure are in hepatitis C the results infection (HCC) section. Screening for cancer Encephalopathy ALPHA FETOPROTEIN Routine 08/10/2018 3:45 Hepatic cirrhosis Results for this (AFP), TUMOR MARKER PM STITCH SEPARATOR due to chronic procedure are in hepatitis C the results infection (HCC) section. Screening for cancer Encephalopathy PROTHROMBIN TIME/INR Routine 08/10/2018 3:45 Hepatic cirrhosis Results for this PM STITCH SEPARATOR due to chronic procedure are in hepatitis C the results infection (HCC) section. Screening for cancer Encephalopathy CBC W/PLT COUNT & Routine 08/10/2018 3:45 Hepatic cirrhosis Results for this AUTO DIFFERENTIAL PM STITCH SEPARATOR due to chronic procedure are in hepatitis C the results infection (HCC) section. Screening for cancer Encephalopathy HEPATIC FUNCTION Routine 08/10/2018 3:45 Hepatic cirrhosis Results for this PANEL PM STITCH SEPARATOR due to chronic procedure are in hepatitis C the results infection (HCC) section. Screening for cancer Encephalopathy BASIC METABOLIC PANEL Routine 08/10/2018 3:45 Hepatic cirrhosis Results for this (7) PM STITCH SEPARATOR due to chronic procedure are in hepatitis C the results infection (HCC) section. Screening for cancer Encephalopathy after 05/18/2018 Results CBC with platelet count + automated diff (08/10/2018 3:45 PM STITCH SEPARATOR) WBC 5.0 3.5 - 10.5 K/L [facility] RBC 3.39 (L) 3.93 - 5.22 M/L [facility] Hemoglobin 10.7 (L) 11.2 - 15.7 GM/DL [facility] Hematocrit 33.1 (L) 34.1 - 44.9 % [facility] MCV 97.6 (H) 79.4 - 94.8 fL [facility] MCH 31.6 25.6 - 32.2 pg [facility] MCHC 32.3 32.2 - 35.5 GM/DL [facility] RDW 15.0 (H) 11.7 - 14.4 % [facility] Platelets 98 (L) 150 - 450 K/CU MM [facility] MPV 10.0 9.4 - 12.3 fL [facility] nRBC 0 0 - 0 /100 WBC [facility] % Neutros 71 % [facility] % Lymphs 14 % [facility] % Monos 12 % [facility] % Eos 2 % [facility] % Baso 1 % [facility] # Neutros 3.51 1.56 - 6.13 K/L [facility] # Lymphs 0.69 (L) 1.18 - 3.74 K/L [facility] # Monos 0.62 (H) 0.24 - 0.36 K/L [facility] # Eos 0.10 0.04 - 0.36 K/L [facility] # Baso 0.04 0.01 - 0.08 K/L [facility] Immature Granulocytes-Relative 0 0 - 1 % [facility] Specimen Blood Performing Organization Address City/State/Zipcode Phone Number [address] [address] [place] Alpha fetoprotein (AFP), tumor marker (08/10/2018 3:45 PM STITCH SEPARATOR) Alpha-Fetoprotein 2.9 <10.0 ng/mL [facility] Specimen Blood Performing Organization Address City/[facility]/Zipcode Phone Number [address] [address] [place] Pro-time/INR (08/10/2018 3:45 PM STITCH SEPARATOR) Protime 16.5 (H) 11.7 - 14.7 seconds [facility] INR 1.3 <=5.9 [facility] Specimen Blood Narrative Performed At RECOMMENDED COUMADIN/WARFARIN INR THERAPY [facility] RANGES STANDARD DOSE: 2.0 - 3.0 Includes: PROPHYLAXIS for venous thrombosis, systemic embolization; TREATMENT for venous thrombosis and/or pulmonary embolus. HIGH RISK: Target INR is 2.5-3.5 for patients with mechanical heart valves. Performing Organization Address City/[facility] Phone Number [address] [address] [phone] CENTER Ammonia (08/10/2018 3:45 PM STITCH SEPARATOR) Ammonia 40 18 - 72 mol/L [facility] Specimen Blood Performing Organization Address City/[facility] Cent[facility]ode Phone Number [address] [address] [place] Hepatic function panel (08/10/2018 3:45 PM STITCH SEPARATOR) Protein, Total 9.0 (H) 6.0 - 8.3 gm/dL [facility] Albumin 2.8 (L) 3.5 - 5.0 g/dL [facility] Total Bilirubin 1.2 0.2 - 1.2 mg/dL [facility] Bilirubin, Direct 0.7 (H) 0.1 - 0.5 mg/dL [facility] Alkaline Phosphatase 111 40 - 150 U/L [facility] AST 31 5 - 34 U/L [facility] ALT 12 6 - 55 U/L [facility] Specimen Blood Performing Organization Address [facility] Centercoor Phone Number [address] [address] [phone] [place] Basic Metabolic Panel (08/10/2018 3:45 PM STITCH SEPARATOR) Sodium 133 (L) 136 - 145 meq/L [facility] Potassium 4.0 3.5 - 5.1 meq/L [facility] Chloride 100 98 - 107 meq/L [facility] CO2 27 22 - 29 meq/L [facility] BUN 20 7 - 21 mg/dL [facility] Creatinine 1.07 0.57 - 1.25 mg/dL [facility] Glucose 71 70 - 105 mg/dL [facility] Calcium 9.4 8.4 - 10.2 mg/dL [facility] EGFR 49Comment: ESTIMATED GFR IS mL/min/1.73 sq m [facility] NOT ACCURATE [facility] CLEARANCE IN PREDICTING GLOMERULAR FILTRATION RATE. ESTIMATED GFR IS NOT APPLICABLE FOR DIALYSIS PATIENTS. Specimen Blood Performing Organization Address City/State/Zipcode Phone Number [facility] [address] [place] [address] CENTER after 05/18/2018 Insurance Payer Benefit Plan / Group Subscriber ID Type Phone Address MEDICARE MEDICARE A B xxxxxxxxxxx Medicare [facility] GENERIC MEDICARE xxxxxxxxx [employer] SUPPLEMENT/INDIVIDUAL SUPPLEMENT
--- OUTSIDE RECORDS SUMMARY | 2019-05-19 08:30 | XMS REPORT | Continuity of Care Document ---
:1930 Author Organization [employer] Care Team Providers Name Role Phone [employer] Unavailable Unavailable Problems Problem Status Onset Classification [...] Data migrated Medical 014 from [facility] [place] 01/28/15. [facility] HERNIA WITHOUT Active Condition 04/27/2014 Medical MENTION 014 Group OBSTRUCTION/GANGRE NE LARGE INTESTINE Active Condition 04/27/2014 Medical CANCER 012 Group SCREENING FOR Active Condition 04/27/2014 Medical COLON CANCER 012 Group Carcinoma of Active Problem 01/17/2018 Data migrated Medical ascending colon1 011 from [facility] [place] 01/28/15. CARCINOMA, Active Condition 04/27/2014 Medical ASCENDING COLON 011 Group Cancer of colon Active Problem 01/17/2018 Medical 011 Group,[facility] CH - Chronic Active Problem 04/24/2017 hepatitis [place] DVT (Confirmed) Resolved Problem 04/24/2017 [facility] 01/17/2018 [...] Unspecified Active Diagnosis 08/26/2015 2.16.840.1. infectious disease [id number] Bacterial Active Diagnosis 08/26/2015 2.16.840.1. infection [id number] Other Active Diagnosis 08/26/2015 2.16.840.1. encephalopathy [id number] Esophageal varices Active Diagnosis 08/26/2015 2.16.840.1. [id number] Hepatic cirrhosis Active Diagnosis 08/26/2015 2.16.840.1. [id number] UTI Active Problem 08/26/2015 2.16.840.1. [id number] MALIGNANT MIGEL Active COLON NOS [place] 153.9 Active [place] HEPATOPULMONARY Active SYNDROME [place] HX OF COLONIC Active MALIGNANCY [place] URIN TRACT Active INFECTION NOS [place] INCISIONAL HERNIA Active [place] MALIGNANT NEOPLASM Active MH OF COLON, [place] UNSPECIFIED PERSONAL HISTORY Active MH OF MALIGNANT [place] NEOPLASM O CALCULUS OF KIDNEY Active [facility] Medications Medication Details Route Status Patient Ordering Order Source Instructions Provider Date Acetaminophen 2 tab, PO, Active 300 MG / Q6H, PRN 2016 [facility] Codeine Pain, X 7 Phosphate 30 MG day, # 56 Oral Tablet tab, 0 [Tylenol with Refill(s) Codeine #3] esmolol (ANES) Route: IV, Inactive Drug form: 2016 [facility] INJ, ONCE, Stop date: 08/03/17 13:22:00 ACCESS LEAD ondansetron Route: IV, Inactive (ANES) Drug form: 2016 [facility] INJ, ONCE, Stop date: 08/03/17 13:07:00 ACCESS LEAD propofol (ANES) Route: IV, Inactive Drug form: 2016 [facility] INJ, ONCE, Stop date: 08/03/17 13:07:00 ACCESS LEAD lidocaine Route: IV, Inactive (ANES) Drug form: 2016 [facility] INJ, ONCE, Stop date: 08/03/17 13:07:00 ACCESS LEAD ciprofloxacin Route: IV, Inactive (ANES) Drug form: 2016 [facility] INJ, ONCE, Stop date: 08/03/17 13:07:00 ACCESS LEAD dexamethasone Route: IV, Inactive (ANES) Drug form: 2016 [facility] INJ, ONCE, Stop date: 08/03/17 13:07:00 ACCESS LEAD fentaNYL (ANES) Route: IV, Inactive Drug form: 2016 [facility] INJ, ONCE, Stop date: 08/03/17 13:02:00 ACCESS LEAD Calcium 1,000 mL, Inactive Chloride 0.0014 Rate: 25 2016 [facility] MEQ/ML / ml/hr, Infuse Potassium over: 40 hr, Chloride 0.004 Route: IV, MEQ/ML / Sodium Dosing Weight Chloride 0.103 74.091 kg, MEQ/ML / Sodium Total Volume: Lactate 0.028 1,000, Start MEQ/ML date: Injectable 08/03/17 Solution 12:12:00 ACCESS LEAD, Duration: 30 day, Stop date: 09/02/17 12:11:00 ACCESS LEAD, 1.86, m2 vancomycin Route: IV, Inactive (ANES) 1000 mg Drug form: 2016 [facility] INJ, Start date: 08/03/17 12:10:00 ACCESS LEAD, Stop date: 08/03/17 13:10:00 ACCESS LEAD Lactated Route: IV, Inactive Ringers Total Volume: 2016 [facility] Injection IV 1,000, Start (ANES) 1000 mL date: 08/03/17 12:10:00 ACCESS LEAD, Stop date: 08/03/17 13:10:00 ACCESS LEAD Ceftriaxone 1 gm, Route: No Longer IVPB, Q12H, Active 2016 [facility] Dosing Weight 74.091, kg, Start date: 08/02/17 21:00:00 ACCESS LEAD, Duration: 24 hr, Stop date: 08/03/17 9:00:00 ACCESS LEAD, ABX Indication: Urinary Tract Infection phenylephrine Route: IV, Inactive (ANES) Drug form: 2016 [facility] INJ, ONCE, Stop date: 04/21/17 10:51:00 CDT ondansetron Route: IV, Inactive (ANES) Drug form: 2016 [facility] INJ, ONCE, Stop date: 04/21/17 10:41:00 CDT dexamethasone Route: IV, Inactive (ANES) Drug form: 2016 [facility] INJ, ONCE, Stop date: 04/21/17 10:41:00 CDT ceFAZolin Route: IV, Inactive (ANES) Drug form: 2016 [facility] INJ, ONCE, Stop date: 04/21/17 10:41:00 CDT lidocaine Route: IV, Inactive (ANES) Drug form: 2016 [facility] INJ, ONCE, Stop date: 04/21/17 10:41:00 CDT propofol (ANES) Route: IV, Inactive Drug form: 2016 [facility] INJ, ONCE, Stop date: 04/21/17 10:41:00 CDT fentaNYL (ANES) Route: IV, Inactive Drug form: 2016 [facility] INJ, ONCE, Stop date: 04/21/17 10:41:00 CDT acetaminophen Route: IV, Inactive (ANES) (ANES) Drug form: 2016 [facility] INJ, Start date: 04/21/17 10:35:00 CDT, Stop date: 04/21/17 11:35:00 CDT sodium chloride Route: IV, Inactive 08/23/ MH 0.9% 500 ml INJ Total Volume: 2016 [facility] (ANES) 500, Start date: 04/21/17 10:08:00 CDT, Stop date: 04/21/17 11:08:00 CDT Calcium 1,000 mL, Inactive Chloride 0.0014 Rate: 25 2016 [facility] MEQ/ML / ml/hr, Infuse Potassium over: 40 hr, Chloride 0.004 Route: IV, MEQ/ML / Sodium Dosing Weight Chloride 0.103 74.545 kg, MEQ/ML / Sodium Total Volume: Lactate 0.028 1,000, Start MEQ/ML date: Injectable 04/21/17 Solution 9:53:00 CDT, Duration: 30 day, Stop date: 05/21/17 9:52:00 CDT Ocuvite 1 tab, PO, Active Daily, 0 2016 [facility] Refill(s) Furosemide 40 40 mg=1 tab, Active MG Oral Tablet PO, Daily, 0 2016 [facility] Refill(s) Vitamin D3 2000 2,000 Active intl units oral IntlUnit=1 2016 [facility] tablet tab, PO, Daily, 0 Refill(s) Albuterol 0.833 3 mL, Route: Inactive MG/ML / NEB, Drug 2016 [facility] Ipratropium Form: SOLN, [place] 0.167 Dosing Weight MG/ML Inhalant 76.364, kg, Solution ONCE, STAT, Start date: 02/23/17 9:22:00 CDT, Stop date: 02/23/17 9:22:00 CDTNotes: (Same as: Mirza) Sodium Chloride 500 mL, Rate: Inactive 0.154 MEQ/ML 25 ml/hr, 2016 [facility] Injectable Infuse over: Solution 20 hr, Route: IV, Dosing Weight 76.364 kg, Total Volume: 500, Start date: 02/23/17 9:22:00 CDT, Duration: 1 day, Stop date: 02/24/17 9:21:00 CDT Lasix 20 mg, 1 tab, No Longer Route: PO, Active 2014 [facility] Drug form: TAB, Daily, Dosing Weight 73.295, kg, Start date: 08/08/15 9:00:00, Duration: 30 day, Stop date: 09/06/15 9:00:00Notes: (Same as: Lasix) May cause GI upset. Give with food or milk. Spironolactone 12.5 mg, 0.5 No Longer tab, Route: Active 2014 [facility] PO, Drug form: TAB, Daily, [...] 20 mL, Route: Inactive IVP, Start 2014 [facility] date: 08/07/15 12:19:00, Duration: 30 day, Stop date: 09/06/15 12:18:00, PRN Line FlushNotes: preservative free. sodium chloride 10 mL, Route: Inactive IVP, Start 2014 [facility] date: 08/07/15 12:18:00, Duration: 30 [...] Inactive 100 MG Oral cap, Route: 2014 [facility] Capsule PO, Drug [Colace] form: CAP, Daily, Dosing Weight 73.295, kg, PRN Constipation, Start date: 08/07/15 11:09:00, Duration: 30 day, Stop date: 09/06/15 11:08:00Notes : (Same as: Colace) (Do Not Crush) Ibuprofen 400 mg, 1 Inactive tab, Route: 2014 [facility] PO, Drug form: TAB, ONCE, Dosing Weight 73.295, kg, PRN Headache 1-5, Start date: 08/06/15 21:10:00, Stop date: 08/06/15 21:10:00Notes : (Same as: Motrin) "Do Not Crush" Give with food. Lasix PO, Daily, 0 Active Refill(s) 2014 [facility] Rocephin 1 gm, Route: No Longer IVPB, Active 2014 [facility] [id number], Dosing Weight 73.295, kg, Start date: 08/06/15 9:00:00, Duration: 30 day, Stop date: 09/04/15 9:00:00Notes: (Same As: Rocephin). Use with 100 mL NS and infuse over 30 min MEDICATION WASTE Product Size: 1000 mg Product Wasted: ___ mg Lactulose 10 gm, 15 ml, Inactive Route: PO, 2014 [facility] Drug Form: SYRP, Dosing Weight 73.295, kg, ONCE, Start date: 08/06/15 3:49:00, Stop date: 08/06/15 3:49:00Notes: (Same as:Chronulac) Ondansetron 4 mg, 2 mL, No Longer Route: IVP, Active 2014 [facility] Drug form: INJ, Q6H, Dosing Weight 73.636, kg, PRN Nausea & Vomiting, Start date: 08/06/15 3:29:00, Duration: 30 day, Stop date: 09/05/15 3:28:00Notes: (Same as: Zofran) MEDICATION WASTE Product Size: 4 mg Product Wasted: ___ mg Acetaminophen 325 mg, 1 No Longer tab, Route: Active 2014 [facility] PO, Drug form: TAB, Q4H, Dosing Weight 73.636, kg, PRN Pain Score 4-6, Start date: 08/06/15 3:29:00, Duration: 30 day, Stop date: 09/05/15 3:28:00Notes: Do not exceed 4 gm/day. (Same as: Tylenol) Morphine 2 mg, Route: No Longer IVP, Q4H, Active 2014 [facility] Dosing Weight 73.636, kg, PRN Pain Score 7-10, Start date: 08/06/15 3:29:00, Duration: 30 day, Stop date: 09/05/15 3:28:00 Aspirin 325 mg, 1 No Longer tab, Route: Active 2014 [facility] PO, Drug form: ECTAB, Q24H, Dosing Weight 73.636, kg, Start date: 08/06/15 3:00:00, Duration: 30 day, Stop date: 09/04/15 3:00:00Notes: (Do Not Crush) Do not crush or chew. Saline Flush 10 mL, Route: No Longer 0.9% IVP, Drug Active 2014 [facility] Form: INJ, Dosing Weight 75.455, kg, PRN, PRN Line Flush, Start date: 08/05/15 19:05:00, Duration: 30 day, Stop date: 09/04/15 19:04:00Notes : (Same as: BD Posiflush) Docusate Sodium 100 mg=1 cap, Active 100 MG Oral PO, Daily, as 2013 [facility] Capsule needed for [Colace] constipation, # 20 cap, 0 Refill(s) gabapentin 300 300 mg=1 cap, Active MG Oral Capsule PO, BID, # 90 2013 cap, 0 Refill(s) tramadol 50 mg=1 tab, Active hydrochloride PO, Q6H, 2013 50 MG Oral Pain, # 40 Tablet tab, 0 Refill(s) Ibuprofen 400 400 mg, 1 No Longer MG Oral Tablet tab, Route: Active 2013 [facility] PO, Drug form: TAB, Q6H, Dosing Weight 64.545, kg, PRN as needed for pain, Start date: 04/19/14 14:09:00, Duration: 30 day, Stop date: 05/19/14 14:08:00Notes : (Same as: Motrin) "Do Not Crush" Give with food. Ibuprofen 600 mg, Inactive Route: PO, 2013 [facility] Q6H, Dosing Weight 64.545, kg, PRN Severe Pain, Start date: 04/19/14 14:09:00, Duration: 30 day, Stop date: 05/19/14 14:08:00 hydromorphone 0.5 mg, 0.5 No Longer mL, Route: Active 2013 [facility] IV, Drug form: INJ, Q2H, PRN Pain, Start date: 04/18/14 17:55:00, Duration: 30 day, Stop date: 05/18/14 17:54:00 Ibuprofen 600 mg, Inactive Route: PO, 2013 [facility] Q6H, Dosing Weight 64.545, kg, PRN as needed for pain, Start date: 04/18/14 17:02:00, Duration: 30 day, Stop date: 05/18/14 17:01:00 Docusate Sodium 100 mg, 1 No Longer 100 MG Oral cap, Route: Active 2013 [facility] Capsule PO, Drug form: CAP, BID, Dosing Weight 64.545, kg, Start date: 04/18/14 17:00:00, Duration: 30 day, Stop date: 05/18/14 9:00:00Notes: (Same as: Colace) (Do Not Crush) Ofirmev 1,000 mg, 100 Inactive mL, Route: 2013 [facility] IV, Drug form: INJ, Q6H, Dosing Weight 65.909, kg, for > or=50 kg, Start date: 04/18/14 12:00:00, Duration: 1 day, Stop date: 04/19/14 6:00:00Notes: Infuse over 15 minutes Do not exceed 4gm/day of acetaminophen Saline Flush 5 ml, Route: No Longer 0.9% IVP, Drug Active 2013 [facility] Form: INJ, Dosing Weight 64.545, kg, PRN, PRN Line Flush, Start date: 04/18/14 10:16:00, Duration: 30 day, Stop date: 05/18/14 10:15:00Notes : Same as: BD Posiflush Sterile Sodium Chloride 1,000 mL, No Longer 0.154 MEQ/ML Rate: 125 Active 2013 [facility] Injectable ml/hr, Infuse Solution over: 8 hr, Route: IV, Dosing Weight 64.545 kg, Total Volume: 1,000, Start date: 04/18/14 10:16:00, Duration: 30 day, Stop date: 05/18/14 10:15:00 Ondansetron 4 mg, 2 mL, No Longer Route: IVP, Active 2013 [facility] Drug form: INJ, Q6H, Dosing Weight 64.545, kg, PRN Nausea & Vomiting, Start date: 04/18/14 10:16:00, Duration: 30 day, Stop date: 05/18/14 10:15:00Notes : (Same as: Zofran) Acetaminophen 1 tab, Route: Inactive 325 MG / PO, Drug 2013 [facility] Hydrocodone Form: TAB, Bitartrate 5 MG Dosing Weight Oral Tablet 65.909, kg, Q4H, PRN Pain Score 1-3, Start date: 04/18/14 10:16:00, Duration: 30 day, Stop date: 05/18/14 10:15:00Notes : (Same as: [place] 325/5) Do not exceed 4gm/day of acetaminophen . Cefoxitin 2 gm, Route: No Longer IVPB, ONCALL, Active 2013 [facility] Dosing Weight 64.545, kg, Start date: 04/13/14 13:00:00, Duration: 30 day, Stop date: 05/13/14 12:59:00Notes : (Same As: Mefoxin) Naloxone 0.1 mg, Inactive Route: IVP, 2013 Q2MIN, Dosing Weight 65.909, kg, PRN Narcotic Reversal, Start date: 03/13/14 11:16:00, Duration: 4 doses or times, Stop date: Limited # of times Flumazenil 0.2 mg, Inactive Route: IVP, 2013 [facility] PRN, Dosing Weight 65.909, kg, PRN Other -See Comment, Start date: 03/13/14 11:16:00, Duration: 1 doses or times, Stop date: Limited # of times Sodium Chloride 1,000 mL, Inactive 0.154 MEQ/ML Rate: 25 2013 [facility] Injectable ml/hr, Infuse Solution over: 40 hr, Route: IV, Dosing Weight 65.909 kg, Total Volume: 1,000, Start date: 03/13/14 9:59:00, Duration: 30 day, Stop date: 04/12/14 9:58:00 Coconut oil Coconut oil, Active Refill(s) 0 2013 ibandronic acid 150 mg=1 tab, Active 150 MG Oral PO, qMonth, # 2013 [facility] Tablet [Boniva] 1 tab, 0 [...] B-12 2500 MCG one by mouth Active 02/02[facility] Medical TABS once daily 2013 Group MOTRIN IB 200 prn Active 02/02[facility] Medical MG TABS 2013 Group COCONUT OIL OIL two teaspoons Active Medical daily 2013 Group ALDACTONE 25 MG one by mouth Active 02/02[facility] Medical TABS once daily 2013 Group GABAPENTIN 300 one by mouth Active 02/02[facility] Medical MG CAPS twice daily 2013 Group Propranolol HCl 1 tablet Orally Active 20 mg Orally Jus 2.16.840.1 daily .682166.4. 391 68 Gabapentin 1 capsule Orally Active 300 MG Orally Jus 2.16.840.1 twice a day .408460.4. (bid) 391 68 B-12 Unknown Sublingual Active 2500 MCG Jus 2.16.840.1 Sublingual .924648.4. 391 68 Ocuvite 1 tablet Orally Active Orally daily Jus 2.16.840.1 .593658.4. 391 68 Lasix 1 tablet Orally Active 40 MG Orally Jus 2.16.840.1 Once a day .965747.4. 68 Ciprofloxacin 5 ml Orally Active 500 MG/5ML Jus 2.16.840.1 (10%) Orally .229777.4. Twice a day Spironolactone 1 tablet Orally Active 25 MG Orally Jus 2.16.840.1 daily .311065.4. Caltrate 600+D 1 tablet with Orally Active 600-400 Jus 2.16.840.1 food MG-UNIT .447431.4. Orally Once a day Allergies, Adverse Reactions, Alerts Substance Category Reaction Severity Reaction Status Date Comments Source type Reported MORPHINE Drug MORPHINE allergy 2 Medical Group morphine<s Assertion Drug Active Data up>1</sup> allergy 2 migrated Medical from [facility] on 12/27/14. Originally documented as MORPHINE. Hallucinatio ns Adhesive Adverse rash Adverse Active 2.16.840. Tape Reaction Reaction 5 1.547446. 4.391.. 73943 Morphine Adverse Info Not Adverse Active 2.16.840. Sulfate Reaction Available Reaction 5 1.139923. 4.391.. 69945 morphine Assertion Drug Active allergy [place] Tape [...] 36.1 20.0 - 12 MH 40.0 /2016 [facility] HEMATOLOGY Eosinophils 1.2 0.0 - 4.0 08/03 [facility] HEMATOLOGY Monocytes 5.4 2.0 - 12.0 08/03 [facility] HEMATOLOGY Basophils 0.6 0.0 - 1.0 08/03 [facility] HEMATOLOGY Segs 56.7 45.0 - 12 MH 75.0 /2016 [facility] HEMATOLOGY Monocytes # 0.2 0.0 - 0.8 08/03 [facility] HEMATOLOGY Lymphocytes 1.0 1.0 - 5.5 08/03 MH # /2017 [facility] HEMATOLOGY Segs-Bands # 1.6 1.5 - 8.1 08/03 [facility] HEMATOLOGY MPV 9.2 7.4 - 10.4 08/03 [facility] HEMATOLOGY RDW 16.5 11.5 - 12 MH 14.5 [facility] HEMATOLOGY Platelet 62 133 - 450 12 [facility] HEMATOLOGY Hct 39.3 36.0 - 12 MH 48.0 /2017 [facility] HEMATOLOGY Hgb 13.2 12.0 - 12 MH 16.0 /2016 [facility] HEMATOLOGY RBC 4.14 4.20 - 12 MH 5.40 /2016 [facility] HEMATOLOGY MCH 31.9 27.0 - 12/ MH 31.0 /2016 [facility] HEMATOLOGY MCV 95.1 80.0 - 12 MH 98.0 /2016 [facility] HEMATOLOGY MCHC 33.6 32.0 - 12 MH 36.0 /2017 [facility] HEMATOLOGY WBC 2.8 3.7 - 10.4 08/03 [place] CHEM PANEL eGFR 59 08/02 [facility] [place] Comment: The [facility] eGFR is calculated using the [...] Direct 0.3 0.0 - 0.3 12/ /2016 [facility] CHEM PANEL Bili 1.5 0.0 - 1.0 12/ MH Indirect /2016 [facility] CHEM PANEL A/G Ratio 0.5 0.7 - 1.6 08/02 /2016 [facility] CHEM PANEL Globulin 4.6 2.7 - 4.2 12/ /2016 [facility] HEMATOLOGY RBC 3.92 4.20 - 12 MH 5.40 /2016 [facility] HEMATOLOGY WBC 5.1 3.7 - 10.4 12 /2016 [facility] HEMATOLOGY Hgb 12.3 12.0 - 12 MH 16.0 /2016 [facility] HEMATOLOGY RDW 15.9 11.5 - 12 MH 14.5 /2016 [facility] HEMATOLOGY MCHC 33.4 32.0 - 12 MH 36.0 /2016 [facility] HEMATOLOGY MCH 31.3 27.0 - 12/ MH 31.0 /2016 [facility] HEMATOLOGY Hct 36.7 36.0 - 08/02 MH 48.0 /2016 [facility] HEMATOLOGY MCV 93.6 80.0 - 08/02 MH 98.0 /2016 [facility] HEMATOLOGY MPV 8.9 7.4 - 10.4 12 /2016 [facility] HEMATOLOGY Platelet 82 133 - 450 12 /2016 [facility] HEMATOLOGY INR 1.49 0.85 - 08/02 MH 1.17 /2016 [facility] HEMATOLOGY PT 18.1 12.0 - 08/02 MH 14.7 /2016 [facility] HEMATOLOGY PTT 33.0 22.9 - 12/ MH 35.8 /2017 [facility] HEMATOLOGY Segs-Bands # 2.6 1.5 [...] ELECTROLYT eGFR 46 04/13 Result Comment: The [facility] eGFR is calculated using the [...] 0.50 - 04/13 ES Lvl 1.40 /2016 [facility] ELECTROLYT BUN 13 7 - 22 04/13 ES /2016 [facility] ELECTROLYT Potassium 4.3 3.5 - 5.1 04/13 ES Lvl /2016 [place] ELECTROLYT Sodium Lvl 142 135 - 145 04/13 ES [facility] ELECTROLYT Chloride Lvl 107 95 - 109 04/13 ES /2016 [facility] ELECTROLYT CO2 25 24 - 32 04/13 ES /2016 [facility] ELECTROLYT Calcium Lvl 9.3 8.5 - 10.5 04/13 ES [facility] ELECTROLYT Glucose Lvl 101 70 - 99 04/13 ES [facility] HEMATOLOGY Eosinophils 0.2 0.0 - 0.5 04/13 MH # /2016 [facility] HEMATOLOGY Basophils # 0.1 0.0 - 0.2 04/13 [facility] HEMATOLOGY Monocytes # 0.6 0.0 - 0.8 04/13 [facility] HEMATOLOGY Lymphocytes 1.8 1.0 - 5.5 04/13 MH # /2016 [facility] HEMATOLOGY Segs-Bands # 3.0 1.5 - 8.1 04/13 [facility] HEMATOLOGY Basophils 0.9 0.0 - 1.0 04/13 [facility] HEMATOLOGY Monocytes 10.4 2.0 - 12.0 04/13 [facility] HEMATOLOGY Eosinophils 3.0 0.0 - 4.0 04/13 [facility] HEMATOLOGY Segs 53.7 45.0 - 04/13 MH 75.0 /2017 [facility] HEMATOLOGY Lymphocytes 32.0 20.0 - 04/13 MH 40.0 /2017 [facility] HEMATOLOGY INR 1.27 0.85 - 04/13 MH 1.17 /2016 [facility] HEMATOLOGY PT 16.2 12.0 - 04/13 MH 14.7 /2016 [facility] HEMATOLOGY MPV 8.9 7.4 - 10.4 04/13 [facility] HEMATOLOGY RDW 15.4 11.5 - 04/13 MH 14.5 [facility] HEMATOLOGY Platelet 79 133 - 450 04/13 [facility] HEMATOLOGY MCH 32.2 27.0 - 04/13 MH 31.0 /2016 [facility] MCHC 33.3 32.0 - 04/13 MH 36.0 /2017 [facility] RBC 4.00 4.20 - 04/13 MH 5.40 /2016 [facility] HEMATOLOGY MCV 96.5 80.0 - 04/13 MH 98.0 /2017 [facility] HEMATOLOGY Hct 38.6 36.0 - 04/13 MH 48.0 /2016 [facility] Hgb 12.9 12.0 - 04/13 MH 16.0 [facility] WBC 5.6 3.7 - 10.4 04/13 [facility] HEMATOLOGY PTT 28.2 22.9 - 04/13 MH 35.8 /2017 [facility] ELECTROLYT AGAP 7.1 10.0 - 02/16 ES 20.0 [facility] ELECTROLYT eGFR 54 02/16 Result Comment: The [facility] eGFR is calculated using the [...] Lvl 8.8 8.5 - 10.5 02/16 MH [facility] ELECTROLYT Chloride Lvl 107 95 - 109 02/16 ES [facility] ELECTROLYT CO2 30 24 - 32 02/16 [facility] ELECTROLYT Potassium 4.1 3.5 - 5.1 02/16 ES Lvl /2016 [facility] ELECTROLYT Glucose Lvl 75 70 - 99 02/16 ES [facility] ELECTROLYT BUN 11 7 - 22 02/16 [facility] ELECTROLYT Creatinine 0.95 0.50 - 02/16 ES Lvl 1.40 [facility] ELECTROLYT Sodium Lvl 140 135 - 145 02/16 [facility] HEMATOLOGY Hgb 13.0 12.0 - 02/16 16.0 [facility] HEMATOLOGY Hct 38.8 36.0 - 02/16 48.0 [facility] TUMOR CEA 11.8 0.0 - 3.0 02/16 MH [facility] CHEM PANEL A/G Ratio 0.6 0.7 - 1.6 08/07 [facility] CHEM PANEL AGAP 11.9 10.0 - 08/07 MH 20.0 [facility] CHEM PANEL Globulin 4.1 2.0 - 4.0 08/07 [facility] CHEM PANEL B/C Ratio 15 6 - 25 08/07 [facility] CHEM PANEL eGFR 61 08/07 [facility] [place] Comment: The [facility] eGFR is calculated using the [...] Magnesium 1.9 1.8 - 2.4 08/07 Lvl [facility] HEMATOLOGY MPV 8.8 7.4 - 10.4 08/07 [facility] HEMATOLOGY Platelet 54 133 - 450 08/07 [facility] HEMATOLOGY MCHC 33.1 32.0 - 12 MH 36.0 /2014 [facility] HEMATOLOGY RDW 14.7 11.5 - 08/07 MH 14.5 /2014 [facility] HEMATOLOGY MCV 97.0 80.0 - 08/07 MH 98.0 /2014 [facility] HEMATOLOGY MCH 32.1 27.0 - 12 MH 31.0 /2014 [facility] HEMATOLOGY RBC 3.54 4.20 - 12 MH 5.40 /2014 [facility] HEMATOLOGY WBC 3.6 3.7 - 10.4 08/07 [facility] HEMATOLOGY Hct 34.3 36.0 - 08/07 MH 48.0 [facility] HEMATOLOGY Hgb 11.4 12.0 - 12 MH 16.0 /2014 [facility] HEMATOLOGY Monocytes # 0.2 0.0 - 0.8 08/07 [facility] HEMATOLOGY Eosinophils 1.3 0.0 - 4.0 08/07 [facility] HEMATOLOGY Monocytes 7.0 2.0 - 12.0 08/07 [facility] HEMATOLOGY Lymphocytes 1.1 1.0 - 5.5 / MH # /2015 [facility] HEMATOLOGY Basophils 0.6 0.0 - 1.0 08/07 [facility] HEMATOLOGY Segs-Bands # 2.2 1.5 - 8.1 08/07 [facility] HEMATOLOGY Segs 61.3 45.0 - 08/07 MH 75.0 /2014 [facility] HEMATOLOGY Lymphocytes 29.8 20.0 - 08/07 MH 40.0 /2014 [facility] URINE AND UA Nitrite Negative Negative 08/06 STOOL (08/06/15 3:01 PM) /2014 [facility] URINE AND UA Leuk Est Large Negative 08/06 STOOL *ABN* /2014 [facility] (08/06/15 3:01 PM) URINE AND UA Blood Moderate Negative 08/06 STOOL *ABN* /2014 [facility] (08/06/15 3:01 PM) URINE AND UA Bili Negative Negative 08/06 STOOL *NA* /2014 [facility] (08/06/15 3:01 PM) URINE AND UA >=8.0 0.1 - 1.0 08/06 STOOL Urobilinogen * [facility] (08/06/15 3:01 PM) URINE AND UA Color Yellow Yellow 08/06 STOOL *NA* /2014 (08/06/15 3:01 PM) URINE AND UA Turbidity Cloudy Clear 08/06 STOOL *ABN* /2014 [facility] (08/06/15 3:01 PM) URINE AND UA Glucose Negative Negative 08/06 STOOL (08/06/15 3:01 PM) /2014 [facility] URINE AND UA Ketones Negative Negative 08/06 STOOL *NA* /2014 [facility] (08/06/15 3:01 PM) URINE AND UA Spec Grav 1.015 <=1.030 08/06 STOOL [facility] URINE AND UA pH 6.5 5.0 - 8.0 08/06 [facility]OOL [facility] URINE AND UA Protein 30 mg/dL Negative 08/06 STOOL mg/dL /2014 [facility] URINE AND UA Sq Epi Few /LPF Few /LPF 08/06 [facility]OL [facility] URINE AND UA [place] Yeast Many /HPF None Seen 08/06 STOOL [...] Est Moderate Negative 08/06 STOOL *ABN* /2014 [facility] (08/05/15 10:40 PM) URINE AND [...] Color Yellow Yellow 08/06 STOOL *NA* /2014 [facility] (08/05/15 10:40 PM) URINE AND UA Protein Negative Negative 08/06 STOOL (08/05/15 10:40 PM) [facility] URINE AND UA pH 6.0 5.0 - 8.0 08/06 MH STOOL /2014 [facility] CARDIAC CK MB 5.3 0.5 - 3.6 08/06 ENZYMES /2014 [facility] CARDIAC Total CK 116 12 - 191 08/06 ENZYMES [facility] CARDIAC BNP 45 <=100 08/06 ENZYMES pg/mL /2014 [facility] CARDIAC Troponin-I <0.02 0.00 - 12 ENZYMES 0.40 /2014 [facility] CARDIAC CK MB Index 4.6 0.0 - 2.5 08/06 ENZYMES [facility] CHEM PANEL Ammonia 47.0 <=45.0 08/06 uMol/L /2014 [facility] CHEM PANEL Alk Phos 118 39 - 136 08/06 [facility] CHEM PANEL Total 7.4 6.4 - 8.4 08/06 Protein /2014 [facility] CHEM PANEL Calcium Lvl 8.5 8.5 - 10.5 08/06 [facility] CHEM PANEL eGFR 67 08/06 [facility] [place] Comment: The [facility] eGFR is calculated using the [...] Bili Total 1.0 0.2 - 1.3 08/06 [facility] CHEM PANEL A/G Ratio 0.6 0.7 - 1.6 08/06 [facility] CHEM PANEL ALT 21 0 - 65 08/06 [facility] CHEM PANEL Albumin Lvl 2.7 3.5 - 5.0 08/06 [facility] CHEM PANEL AST 27 0 - 37 08/06 [facility] CHEM PANEL AGAP 11.5 10.0 - 08/06 MH 20.0 /2014 [facility] CHEM PANEL Globulin 4.7 2.0 - 4.0 12/ /2014 [facility] CHEM PANEL B/C Ratio 14 6 - 25 12 [facility] CHEM PANEL BUN 11 7 - 22 08/06 [facility] CHEM PANEL Chloride Lvl 106 95 - 109 12 [facility] CHEM PANEL Creatinine 0.81 0.50 - 12 Lvl 1.40 /2014 [facility] CHEM PANEL Potassium 3.5 3.5 - 5.1 12 Lvl /2014 [facility] CHEM PANEL Sodium Lvl 140 135 - 145 12 [facility] CHEM PANEL CO2 26 24 - 32 12 [facility] CHEM PANEL Glucose Lvl 109 70 - 99 12 [facility] HEMATOLOGY MPV 9.1 7.4 - 10.4 08/06 [facility] HEMATOLOGY RDW 15.4 11.5 - 12 14.5 /2014 [facility] HEMATOLOGY Platelet 70 133 - 450 12 /2014 [facility] HEMATOLOGY MCHC 33.1 32.0 - 12 36.0 /2014 [facility] HEMATOLOGY MCH 32.1 27.0 - 12 31.0 /2014 [facility] HEMATOLOGY MCV 97.2 80.0 - 12/ 98.0 /2014 [facility] HEMATOLOGY Hct 36.5 36.0 - 12 48.0 /2014 [facility] HEMATOLOGY Hgb 12.1 12.0 - 12 16.0 /2014 [facility] HEMATOLOGY RBC 3.76 4.20 - 12 MH 5.40 /2014 [facility] HEMATOLOGY WBC 6.0 3.7 - 10.4 08/06 /2014 [facility] HEMATOLOGY Monocytes # 0.5 0.0 - 0.8 08/06 /2014 [facility] HEMATOLOGY Eosinophils 0.1 0.0 - 0.5 12/08 MH # /2015 [facility] HEMATOLOGY Lymphocytes 1.8 1.0 - 5.5 12/08 MH # /2015 [facility] HEMATOLOGY Basophils 0.6 0.0 - 1.0 08/06 /2014 [facility] HEMATOLOGY Segs-Bands # 3.6 1.5 - 8.1 08/06 /2014 [facility] HEMATOLOGY Monocytes 8.4 2.0 - 12.0 12/ /2014 [facility] HEMATOLOGY Eosinophils 2.0 0.0 - 4.0 / /2014 [facility] HEMATOLOGY Lymphocytes 29.3 20.0 - 12 MH 40.0 /2014 [facility] HEMATOLOGY Segs 59.7 45.0 - [...] PANEL CO2 26 24 - 32 08/05 [facility] CHEM PANEL Glucose Lvl 93 70 - 99 08/05 [facility] CHEM PANEL Sodium Lvl 140 135 - 145 08/05 [facility] CHEM PANEL BUN 12 7 - 22 08/05 [facility] CHEM PANEL Creatinine 0.88 0.50 - 08/05 Lvl 1.40 [facility] CHEM PANEL eGFR 60 08/05 [facility] [place] Comment: The [facility] eGFR is calculated using the [...] Bili Total 0.9 0.2 - 1.3 08/05 [facility] CHEM PANEL Alk Phos 126 39 - 136 08/05 [facility] CHEM PANEL Albumin Lvl 2.7 3.5 - 5.0 08/05 [facility] CHEM PANEL ALT 22 0 - 65 08/05 [facility] CHEM PANEL AST 27 0 - 37 12 /2014 [facility] CHEM PANEL AGAP 11.8 10.0 - 12 MH 20.0 /2014 [facility] CHEM PANEL B/C Ratio 14 6 - 25 08/05 /2014 [facility] CHEM PANEL A/G Ratio 0.6 0.7 - 1.6 08/05 /2014 [facility] CHEM PANEL Globulin 4.6 2.0 - 4.0 08/05 [facility] HEMATOLOGY MPV 8.9 7.4 - 10.4 08/05 /2014 [facility] HEMATOLOGY RDW 15.3 11.5 - 08/05 MH 14.5 /2014 [facility] HEMATOLOGY Platelet 69 133 - 450 12 [facility] HEMATOLOGY Hct 37.6 36.0 - 08/05 MH 48.0 /2014 [facility] HEMATOLOGY MCHC 32.8 32.0 - 08/05 MH 36.0 /2014 [facility] HEMATOLOGY Hgb 12.4 12.0 - 08/05 MH 16.0 /2014 [facility] HEMATOLOGY MCV 96.5 80.0 - 08/05 98.0 /2014 [facility] HEMATOLOGY MCH 31.7 27.0 - 08/05 MH 31.0 /2014 [facility] HEMATOLOGY WBC 6.2 3.7 - 10.4 08/05 /2014 [facility] HEMATOLOGY RBC 3.90 4.20 - 08/05 MH 5.40 /2014 [facility] HEMATOLOGY Monocytes # 0.5 0.0 - 0.8 08/05 /2014 [facility] HEMATOLOGY Basophils 0.6 0.0 - 1.0 08/05 /2014 [facility] HEMATOLOGY Segs-Bands # 4.2 1.5 - 8.1 08/05 /2014 [facility] HEMATOLOGY Eosinophils 0.1 0.0 - 0.5 08/05 MH # /2014 [facility] HEMATOLOGY Lymphocytes 1.4 1.0 - 5.5 08/05 MH # /2014 [facility] HEMATOLOGY Lymphocytes 22.3 20.0 - 12 MH 40.0 /2014 [facility] HEMATOLOGY Monocytes 7.3 2.0 - 12.0 08/05 [facility] HEMATOLOGY Eosinophils 1.4 0.0 - 4.0 08/05 [facility] HEMATOLOGY Segs 68.4 45.0 - 08/05 MH 75.0 /2014 [facility] HEMATOLOGY Basophils 0.4 0.0 - 1.0 04/19 [facility] HEMATOLOGY Monocytes # 0.9 0.0 - 0.8 04/19 /2013 [facility] HEMATOLOGY Lymphocytes 1.0 1.0 - 5.5 04/19 MH # /2014 [facility] HEMATOLOGY Segs-Bands # 4.2 1.5 - 8.1 04/19 /2013 [facility] HEMATOLOGY Eosinophils 0.2 0.0 - 0.5 04/19 MH # /2013 [facility] HEMATOLOGY Eosinophils 2.7 0.0 - 4.0 04/19 /2013 [facility] HEMATOLOGY Monocytes 13.7 2.0 - 12.0 04/19 /2013 [facility] HEMATOLOGY Lymphocytes 16.6 20.0 - 04/19 MH 40.0 /2013 [facility] HEMATOLOGY Segs 66.6 45.0 - 04/19 MH 75.0 /2013 [facility] HEMATOLOGY MCHC 33.3 32.0 - 04/19 MH 36.0 /2013 [facility] HEMATOLOGY RDW 15.2 11.5 - 04/19 MH 14.5 /2013 [facility] HEMATOLOGY MCH 32.3 27.0 - 04/19 MH 31.0 /2013 [facility] HEMATOLOGY MCV 96.9 80.0 - 04/19 98.0 /2013 [facility] HEMATOLOGY Hct 30.1 36.0 - 04/19 MH 48.0 /2013 [facility] HEMATOLOGY Platelet 67 133 - 450 04/19 /2013 [facility] HEMATOLOGY MPV 8.4 7.4 - 10.4 04/19 /2013 [facility] HEMATOLOGY Hgb 10.0 12.0 - 04/19 16.0 /2013 [facility] HEMATOLOGY RBC 3.11 4.20 - 04/19 MH 5.40 /2013 [facility] WBC 6.3 3.7 - 10.4 04/19 [facility] CHEM PANEL Globulin 4.8 2.0 - 4.0 04/13 [facility] CHEM PANEL A/G Ratio 0.6 0.7 - 1.6 04/13 [facility] CHEM PANEL AGAP 13.4 10.0 - 04/13 MH 20.0 [facility] CHEM PANEL B/C Ratio 9 6 - 25 04/13 [facility] CHEM PANEL eGFR 59 04/13 <sup>1</sup>R esult [facility] Comment: The eGFR is calculated [...] Albumin Lvl 2.9 3.5 - 5.0 04/13 [facility] CHEM PANEL ALT 23 0 - 65 04/13 [facility] CHEM PANEL AST 44 0 - 37 04/13 [facility] CHEM PANEL Alk Phos 122 39 - 136 04/13 [facility] CHEM PANEL Total 7.7 6.4 - 8.4 04/13 [facility] CHEM PANEL Bili Total 1.5 0.2 - 1.3 04/13 [facility] CHEM PANEL Sodium Lvl 144 135 - 145 04/13 [facility] CHEM PANEL Potassium 3.4 3.5 - 5.1 04/13 Lvl [facility] CHEM PANEL Chloride Lvl 106 95 - 109 04/13 [facility] CHEM PANEL CO2 28 24 - 32 04/13 [facility] CHEM PANEL Calcium Lvl 8.8 8.5 - 10.5 04/13 [facility] CHEM PANEL Creatinine 0.9 0.5 - 1.4 04/13 Lvl [facility] CHEM PANEL Glucose Lvl 71 70 - 99 04/13 <sup>2</sup>I nterpretive [facility] Data: Adult reference range values reflect the clinical guidelines
of the [place] [employer]. CHEM PANEL BUN 8 7 - 22 04/13 [facility] CHEM PANEL A/G Ratio 0.6 0.7 - 1.6 04/13 [facility] CHEM PANEL Globulin 4.8 2.0 - 4.0 04/13 [facility] CHEM PANEL Bili 0.8 0.0 - 1.0 04/13 [facility] CHEM PANEL ALT 23 0 - 65 04/13 [facility] CHEM PANEL Alk Phos 122 39 - 136 04/13 [facility] CHEM PANEL AST 45 0 - 37 08 /2013 [facility] CHEM PANEL Bili Direct 0.5 0.0 - 0.3 04/13 /2013 [facility] CHEM PANEL Bili Total 1.3 0.2 - 1.3 04/13 [facility] CHEM PANEL Total 7.7 6.4 - 8.4 04/13 Protein /2013 [facility] CHEM PANEL Albumin Lvl 2.9 3.5 - 5.0 04/13 /2013 [facility] HEMATOLOGY MCH 32.1 27.0 - 08 MH 31.0 /2013 [facility] HEMATOLOGY RDW 14.6 11.5 - 08 MH 14.5 /2013 [facility] HEMATOLOGY MCHC 33.1 32.0 - 08 36.0 /2013 [facility] HEMATOLOGY Platelet 76 133 - 450 04/13 /2013 [facility] HEMATOLOGY RBC 3.79 4.20 - 04/13 MH 5.40 /2013 [facility] HEMATOLOGY Hct 36.7 36.0 - 04/13 48.0 /2013 [facility] HEMATOLOGY MCV 97.0 81.0 - 04/13 99.0 /2013 [facility] HEMATOLOGY Hgb 12.1 12.0 - 04/13 16.0 /2013 [facility] HEMATOLOGY WBC 4.6 3.7 - 10.4 04/13 /2013 [facility] HEMATOLOGY MPV 8.9 7.4 - 10.4 04/13 /2013 [facility] HEMATOLOGY Segs 52.6 45.0 - 04/13 75.0 /2013 [facility] HEMATOLOGY Monocytes # 0.6 0.0 - 0.8 04/13 /2013 [facility] HEMATOLOGY Eosinophils 0.1 0.0 - 0.5 04/13 MH # /2014 [facility] HEMATOLOGY Basophils 1.0 0.0 - 1.0 04/13 /2013 [facility] HEMATOLOGY Segs-Bands # 2.4 1.5 - 8.1 04/13 /2013 [facility] HEMATOLOGY Lymphocytes 1.5 1.0 - 5.5 04/13 MH # /2014 [facility] HEMATOLOGY Lymphocytes 32.1 20.0 - 08 MH 40.0 /2013 [facility] HEMATOLOGY Monocytes 12.2 2.0 - 12.0 04/13 /2013 [facility] HEMATOLOGY Eosinophils 2.1 0.0 - 4.0 04/13 /2013 [facility] CHEM PANEL AST 43 0 - 37 07 /2013 [facility] CHEM PANEL Albumin Lvl 2.9 3.5 - 5.0 03/06 MH [facility] CHEM PANEL Total 7.7 6.4 - 8.4 / MH Protein /2013 [facility] CHEM PANEL Bili Direct 0.5 0.0 - 0.3 03/06 MH [facility] CHEM PANEL Alk Phos 137 39 - 136 / MH [facility] CHEM PANEL Bili Total 1.4 0.2 - 1.3 03/06 [facility] CHEM PANEL ALT 22 0 - 65 / MH [facility] CHEM PANEL Bili 0.9 0.0 - 1.0 / MH Indirect /2013 [facility] CHEM PANEL Globulin 4.8 2.0 - 4.0 03/06 MH [facility] CHEM PANEL A/G Ratio 0.6 0.7 - 1.6 03/06 [facility] ELECTROLYT AGAP 8.9 10.0 - 07/ MH ES 20.0 /2013 [facility] ELECTROLYT eGFR 59 07 <sup>1</sup>R MH ES esult [facility] Comment: The eGFR is calculated [...] 28 24 - 32 / MH ES [facility] ELECTROLYT Calcium Lvl 8.7 8.5 - 10.5 03/06 MH ES [facility] ELECTROLYT BUN 9 7 - 22 / MH ES [facility] ELECTROLYT Creatinine 0.9 0.5 - 1.4 / MH ES Lvl /2013 [facility] ELECTROLYT Sodium Lvl 140 135 - 145 03/06 MH [facility] ELECTROLYT Potassium 3.9 3.5 - 5.1 03/06 ES Lvl /2013 [facility] ELECTROLYT Chloride Lvl 107 95 - 109 03/06 [facility] ELECTROLYT Glucose Lvl 84 70 - 99 03/06 <sup>2</sup>I nterpretive [facility] Data: Adult reference range values reflect the clinical guidelines
of the [place] [employer]. HEMATOLOGY Hgb 11.9 12.0 - 03/06 16.0 /2013 [facility] HEMATOLOGY Hct 35.2 36.0 - 03/06 48.0 /2013 [facility] HEMATOLOGY Platelet 80 133 - 450 03/06 [facility] HEMATOLOGY WBC 4.4 3.7 - 10.4 03/06 [facility] HEMATOLOGY PT 15.9 12.0 - 03/06 14.7 [facility] HEMATOLOGY INR 1.29 0.85 - 03/06 <sup>3</sup>I 1.17 nterpretive [facility] Data: RECOMMENDED RANGES FOR PROTIME INR:
2.0-3.0 for most medical and surgical thromboemboli c states.
2.5-3.5 for artificial heart valves and recurrent embolism.<br/ >
INR SHOULD BE USED ONLY FOR PATIENTS ON STABLE ANTICOAGULANT THERAPY. HEMATOLOGY PTT 32.6 22.9 - 03/06 <sup>4</sup>I 35.8 /2013 nterpretive [facility] Data: Heparin Therapeutic Range: 57 - 92 Seconds TUMOR CEA 12.2 0.0 - 3.0 03/06 [facility] Pathology Reports No Data Provided for This Section Diagnostic Reports Report Value Date Source Renal pyelogram Patient Name: EDGARD DÍAZ 08/03/2017 [facility] retrograde DX : 1930; Age: 86 years Female MR: [id number] Study: Renal pyelogram retrograde DX 08/03/2017 3:09 PM ACCESS LEAD CLINICAL INDICATION: bilateral lithotripsy Bilateral stent placement - Fluoro time 2.22 min Dose 17.35 mgy C #3 OR 4 COMPARISON: None FINDINGS: Limited intraoperative fluoroscopic images provided for retrograde pyelography. Contrast administration demonstrates moderate bilateral hydronephrosis. Subsequently bilateral ureteral stents were placed. Refer to operative report for full details. SL: BRUNA-M PET CT Colorectal CA Patient Name: EDGARD DÍAZ 03/04/2017 [facility] restaging : 1930; Age: 86 years y/o Female MR: [id number] Study: PET CT Colorectal CA restaging 03/04/2017 [...] urinary bladder suspicious for chronic cystitis. SL: [id number] Carotid artery Doppler CAROTID DOPPLER 08/06/2015 [facility] US HISTORY: Mental status changes. Encephalopathy. TECHNIQUE: [...] Chest 1view DX Chest one view: 08/05/2015 [facility] COMPARISON: 04/19/2014 FINDINGS: Limited AP portable [...] CT PROCEDURE: Brain wo contrast CT 08/05/2015 [facility] REASON FOR EXAM: pt from IV [...] 2 views EXAM: Chest 2 views 04/19/2014 [facility] DATE: Apr 19, 2014 09:48:02 AM [...] PET CT Colorectal CA PET/CT SCAN: 03/24/2014 [facility] restaging TECHNIQUE: 14 mCi of FDG [...] hypertension. SL:[address] Colorectal CA 09/14/2013 [facility] restaging EXAM: PET/CT HISTORY: Colon cancer, [...] Comments Source Systolic (mm Hg) 125 08/03/2017 [facility] Diastolic (mm Hg) 71 08/03/2017 [facility] Systolic (mm Hg) 129 08/03/2017 [facility] Diastolic (mm Hg) 66 08/03/2017 [facility] Systolic (mm Hg) 128 08/03/2017 [facility] Diastolic (mm Hg) 59 08/03/2017 [facility] Respitory Rate 16 08/03/2017 [facility] Respitory Rate 11 08/03/2017 [facility] Respitory Rate 9 08/03/2017 [facility] Temperature Oral (F) 97.3 F 08/02/2017 [facility] Heart Rate 70 08/02/2017 [facility] BMI Calculated 27.18 08/02/2017 [facility] Height 165.1 cm 08/02/2017 [facility] Weight 74.091 08/02/2017 [facility] Systolic (mm Hg) 99 04/21/2017 [facility] Diastolic (mm Hg) 56 04/21/2017 [facility] Respitory Rate 18 04/21/2017 [facility] Respitory Rate 18 04/21/2017 [facility] Systolic (mm Hg) 114 04/21/2017 [facility] Diastolic (mm Hg) 58 04/21/2017 [facility] Systolic (mm Hg) 109 04/21/2017 [facility] Diastolic (mm Hg) 56 04/21/2017 [facility] Respitory Rate 12 04/21/2017 [facility] Height 165.1 cm 04/13/2017 [facility] Weight 74.545 04/13/2017 [facility] BMI Calculated 27.35 04/13/2017 [facility] Temperature Oral (F) 97.4 F 04/13/2017 [facility] Heart Rate 80 04/13/2017 [facility] Systolic (mm Hg) 118 02/23/2017 [facility] Diastolic (mm Hg) 61 02/23/2017 [facility] Respitory Rate 32 02/23/2017 [facility] Respitory Rate 28 02/23/2017 [facility] Systolic (mm Hg) 109 02/23/2017 [facility] Diastolic (mm Hg) 60 02/23/2017 [facility] Systolic (mm Hg) 109 02/23/2017 [facility] Diastolic (mm Hg) 61 02/23/2017 [facility] Respitory Rate 23 02/23/2017 [facility] Temperature Oral (F) 97.4 F 02/16/2017 [facility] Heart Rate 72 02/16/2017 [facility] BMI Calculated 28.02 02/16/2017 [facility] Weight 76.364 02/16/2017 [facility] Height 165.1 cm 02/16/2017 [facility] Weight 159 08/12/2015 [id number] Height 64.4 08/12/2015 [id number]. [id number] Temperature Oral (F) 97.6 F 08/12/2015 [id number]. [id number] Heart Rate 93 08/12/2015 [id number]. [id number] Diastolic (mm Hg) 63 08/12/2015 [id number]. [id number] Systolic (mm Hg) 114 08/12/2015 [id number]. [id number] Systolic (mm Hg) 102 08/07/2015 [facility] Diastolic (mm Hg) 66 08/07/2015 [facility] Temperature Oral (F) 97.6 F 08/07/2015 [facility] Respitory Rate 16 08/07/2015 [facility] Heart Rate 77 08/07/2015 [facility] Respitory Rate 15 08/07/2015 [facility] Temperature Oral (F) 97.4 F 08/07/2015 [facility] Heart Rate 81 08/07/2015 [facility] Systolic (mm Hg) 100 08/07/2015 [facility] Diastolic (mm Hg) 66 08/07/2015 [facility] Systolic (mm Hg) 115 08/07/2015 [facility] Diastolic (mm Hg) 73 08/07/2015 [facility] Heart Rate 83 08/07/2015 [facility] Respitory Rate 16 08/07/2015 [facility] Temperature Oral (F) 97.4 F 08/07/2015 [facility] BMI Calculated 26.89 08/06/2015 [facility] Weight [...] 16 04/20/2014 [facility] Heart Rate 92 04/20/2014 [facility] Temperature Oral (F) 98.2 F 04/20/2014 [facility] Systolic (mm Hg) 109 04/20/2014 [facility] Diastolic (mm Hg) 70 04/20/2014 [facility] Heart Rate 90 04/20/2014 [facility] Temperature Oral (F) 97.9 F 04/20/2014 [...] 03/13/2014 [facility] Systolic (mm Hg) 113 03/13/2014 [facility] Diastolic (mm Hg) 54 03/13/2014 [facility] Temperature Oral (F) 97.6 F 03/06/2014 [facility] Height 165.1 cm 03/06/2014 [facility] Weight 65.909 03/06/2014 [facility] BMI Calculated 24.18 03/06/2014 [facility] Weight 149 02/02/2014 [facility] Temperature [...] Number For Provider Date Date Visit Outpatient [id number] COLON PING NORMAN 09/14 Active [facility] Outpatient [id number] 153.9 PING NORMAN 09/20 Active [facility] Bedded [id number] [facility] 03/13 03/13 [facility] Outpatient 0 [facility] Office [id number] Dakota Michele, 03/23 03/23 [id number] General [facility] Outpatient [id number] Ping Norman 03/24 03/25 [facility] Lab Report [id number] Dakota Michele, 03/26 03/26 [place] [id number] [facility] Lab Report [id number] odoros 04/12 04/12 [place] 8[address] ian Medical MD [facility] OBS [id number] Dakota Michele 04/18 04/20 [place] Observation [facility] Office [id number] Dakota Michele, 04/27 04/27 [place] Visit [id number] [facility] General Surgery [facility] OP [id number] Ping Norman 08/05 09/04 [place] Recurring [facility] OBS [id number] Van 08/06 08/[address] [place] [address] [facility] [id number] 08/12 08/12 [id number] Medical [id number] /2014 .[id number] Group [id number] Outpatient [id number] [facility] 0 [facility] [place] [facility] [id number] [facility] Active [facility] 1 VOLOYIAN [place] [facility] [id number] [facility] 3 [facility]OLOY [place] [facility] [id number] [facility]/23 [facility] 2 [facility] [id number] [facility] 02/23 02/23 [place] [facility] 4 Volian /2016 [facility] Outpatient [id number] [facility] 03/04 03/05 [facility] 5 Voloyiannis /2016 [facility] Outpatient [id number] NINO [facility] 03/30 [facility] [place] Out[facility] [id number] [facility]21 [facility]OL[facility] [id number] [facility] 04/21 04/21 [place] 7 Voloyiannis /2016 [facility] Outpatient [id number] ROMAN FOSTER 05/12 [facility] [place] Outpatient [id number] NINO CAPROSPER 05/17 Active [facility] [place] Outpatient [id number] NURSE VISIT 06/22 [facility] [id number] Nino [facility] 08/03 08/03 [facility] Outpatient [id number] NINO WILSON 08/26 Active [facility] [place] Outpatient [id number] JOVANA CUI 08/26 [facility] Ambulatory [id number] Jovana Karli 08/26 08/26 Urology [facility] Outpatient [id number] Nino [facility] 08/26 08/27 U[facility] Outpatient [id number] NINO [facility] 09/27 [facility] Outpatient [id number] Nino [facility] 09/27 09/28 [facility] [facility] [id number] [facility] 01/14 [facility] Ambulatory [id number] [facility] 01/14 01/14 Urology Pre-Reg [facility] Procedures Procedure Code Date Perfomer Comments Source Cystourethroscopy, 10000 Medical with removal of 7 Group foreign body, calculus, or ureteral stent from urethra or bladder (separate procedure); simple Hernia repair [id number] Medical 4 Group,[facility] Cannulation of [id number] Medical Portacath Group,[facility] Cardiac [id number] 1994 Medical catheterization<sup>1 Group, </sup> [place] Cataract extraction [id number] Medical and insertion of Group, intraocular lens [facility] Cholecystectomy [id number] Medical Group,[facility] Colonoscopy [id number] Medical Group,[facility] Hysterectomy [id number] Medical Group,[facility] Knee [id number] 2011 Medical replacement<sup>2</red Group, p> [place] Operation [id number] Medical Group,[facility] Partial resection of [id number] Medical colon Group,[facility] Assessment and Plan Assessment and Plan Date Source Extracted from:Title: History and Physical 08/03/2017 [facility] Author: Nino Wilson MD Date: 08/03/17 Renal calculi Extracted from:Title: Clinical Document 04/21/2017 [facility] Author: Galdino Ureña MD Date: 04/21/17 PREOPERATIVE DIAGNOSIS: Personal history of colon cancer. POSTOPERATIVE DIAGNOSIS: Personal history of colon cancer. PROCEDURE: Port-A-Cath removal. SURGEON: Dr. Ureña. FUR JOINER: None. ANESTHESIA: General. IV FLUIDS: 200 mL. [...] We placed a 2- 0 Vicryl in pwwxjm-xc-yliab fashion at the site of the Port-A-Cath [...] the patients satisfaction Extracted from:Title: preop 02/23/2017 [facility] Author: Roman Foster, MPH, PA-C Date: [...] and Dr. Galdino Ureña, who provided a iprb-wh-stxp visit and performed the physical exam, assessment and plan, and the note transcribed by Roman Mason total exam time, coordination of care, education >20 minutes [3] Extracted from:Title: Clinical Document 08/07/2015 [facility] Author: Van Luu MD Date: 08/06/15 Chart reveiwed. Patient seen and examined. WIll continue to follow. Extracted from:Title: Clinical Document 04/20/2014 [facility] Author: Dakota Michele MD Date: 04/19/14 Surgery Progress Note Attending: Dakota Michele MD Service: Plastic Surgery Service Code status: None Specified=FULL CODE Reason for Admission: 553.2 Working DRG: None Documented Isolation: None Documented Consulting Physicians: Dakota Michele MD Office: MSO: [id number] Service: General Surgery SUBJECTIVE: Doing OK. Still [...] Present Illness: Oncologist - Dr. Marlyn Norman; Spiral Winder - Dr. Angel Mike ............Sharifa Tatum March [...] UMB HERNIA WITHOUT MENTION OBSTRUCTION/GANGRENE (ICD-553.1) ( UFG11-X09.9) Assessment: Unchanged Will offer repair as she desires intervention Wll request cardiac clearance Onel with this latest PET to reaffirt cancer free state Discussed case with referring MD Orders: Office Visit, [facility] III - 31981 (CPT-17801) Problem # 2: CARCINOMA, ASCENDING COLON (ICD-153.6) (YVM23-U70.2) Assessment: Improved Post excision and allears to be disease free Orders: Office Visit, [facility] Level III - 38980 (CPT-32234) Patient Instructions: 1) Cardiac eval for pre [...] on: 08/03/17 Social History ElementQualifiersDate Reported 08/12/2015 [id number] Tobacco Use: .84594 . Are you a: never smoker Aug [...]
--- OUTSIDE RECORDS SUMMARY | 2019-05-19 08:31 | XMS REPORT | CCD ---
:1930 Author Organization [facility] Care Team Providers Name Role Phone Marlyn Ceballos Referring Provider Allergies, Adverse Reactions, Alerts Substance Reaction Status morphine Active Problem List Condition Effective Dates Status CAD - Coronary artery disease Active Cancer of colon 05/10/2011 Active Cirrhosis of liver Active Esophageal varices Active Hepatitis C Active Pneumonia Active
--- OUTSIDE RECORDS SUMMARY | 2019-05-19 08:33 | XMS REPORT | Continuity of Care Document ---
:1930 Author Organization [facility] Care Team Providers Name Role Phone MD Michele Hoang Unavailable Unavailable Insurance Providers Payer name Policy type / Policy ID Covered alliance party ID Policy Montoya Coverage type MEDICARE B-[place]: [employer] AARP HEALTHCARE OPTIONS (MEDICARE SUPPLEMENT AARP HEALTHCARE [...] Office Visit Dakota Michele MD [facility] General Mar 23, 2014 Surgery 350 [...]
--- OUTSIDE RECORDS SUMMARY | 2019-05-19 08:33 | XMS REPORT ---
:1930 Author [facility] Address [address] [place] [address] [address]. [address] [place] [address] Care Team Providers Name Role Phone MARY [...] Value Reference Range Comments ALPHA-FETOPROTEIN (BEAKER) (test pceg=3243) 2.9 ng/mL <10.0 HEPATIC FUNCTION [id number] 16:38:00 Test Item Value Reference Range Comments TOTAL PROTEIN (BEAKER) (test dudd=958) 9.0 gm/dL 6.0-8.3 ALBUMIN (BEAKER) (test geog=1161) 2.8 g/dL 3.5-5.0 BILIRUBIN TOTAL (BEAKER) (test adzu=264) 1.2 mg/dL 0.2-1.2 BILIRUBIN DIRECT (BEAKER) (test mrbb=512) 0.7 mg/dL 0.1-0.5 ALKALINE PHOSPHATASE (BEAKER) (test hzgi=655) 111 U/L 40-150 AST (SGOT) (BEAKER) (test syrc=638) 31 U/L 5-34 ALT (SGPT) (BEAKER) (test cqas=001) 12 U/L 6-55 BASIC METABOLIC [id number] 16:38:00 Test Item Value Reference Range Comments SODIUM (BEAKER) (test 133 meq/L 136-145 jlia=040) POTASSIUM (BEAKER) (test 4.0 meq/L 3.5-5.1 jtve=813) CHLORIDE (BEAKER) (test 100 meq/L 98-107 rpuj=106) CO2 (BEAKER) (test 27 meq/L 22-29 gmro=909) BLOOD UREA NITROGEN 20 mg/dL 7-21 (BEAKER) (test qkvi=560) CREATININE (BEAKER) (test 1.07 mg/dL 0.57-1.25 bssl=256) GLUCOSE RANDOM (BEAKER) 71 mg/dL 70-105 (test uneq=076) CALCIUM (BEAKER) (test 9.4 mg/dL 8.4-10.2 sqwo=458) EGFR (BEAKER) (test 49 mL/min/1.73 sq m ESTIMATED GFR IS NOT than=3908) ACCURATE CREATININE CLEARANCE IN PREDICTING GLOMERULAR FILTRATION RATE. ESTIMATED GFR IS NOT APPLICABLE FOR DIALYSIS PATIENTS. [id number] 16:33:00 Test Item Value Reference Range Comments AMMONIA (BEAKER) (test gvvs=115) 40 mol/L 18-72 PROTHROMBIN [id number] 16:29:00 Test Item Value Reference Range Comments PROTIME (BEAKER) (test fjfv=748) 16.5 seconds 11.7-14.7 INR (BEAKER) (test itpq=860) 1.3 <=5.9 RECOMMENDED COUMADIN/WARFARIN INR THERAPY RANGESSTANDARD DOSE: 2.0 - 3.0 Includes: PROPHYLAXIS forvenous thrombosis, systemic embolization; TREATMENT for venous thrombosis and/or pulmonary embolus.HIGH RISK: Target INR is 2.5-3.5 for patients with mechanical heart valves.CBC W/PLT COUNT & AUTO [id number] 16:22:00 Test Item Value Reference Range Comments WHITE BLOOD CELL COUNT (BEAKER) (test kaxv=064) 5.0 K/ L 3.5-10.5 RED BLOOD CELL COUNT (BEAKER) (test kfoa=056) 3.39 M/ L 3.93-5.22 HEMOGLOBIN (BEAKER) (test azzj=158) 10.7 GM/DL 11.2-15.7 HEMATOCRIT (BEAKER) (test nlmy=911) 33.1 % 34.1-44.9 MEAN CORPUSCULAR VOLUME (BEAKER) (test iyiq=661) 97.6 fL 79.4-94.8 MEAN CORPUSCULAR HEMOGLOBIN (BEAKER) (test 31.6 pg 25.6-32.2 zynz=543) MEAN CORPUSCULAR HEMOGLOBIN CONC (BEAKER) (test 32.3 GM/DL 32.2-35.5 ftgp=415) RED CELL DISTRIBUTION WIDTH (BEAKER) (test 15.0 % 11.7-14.4 wszi=670) PLATELET COUNT (BEAKER) (test mgzi=178) 98 K/CU MM 150-450 MEAN PLATELET VOLUME (BEAKER) (test fzzl=939) 10.0 fL 9.4-12.3 NUCLEATED RED BLOOD CELLS (BEAKER) (test 0 /100 WBC 0-0 nzet=418) NEUTROPHILS RELATIVE PERCENT (BEAKER) (test 71 % wrvl=806) LYMPHOCYTES RELATIVE PERCENT (BEAKER) (test 14 % rwic=937) MONOCYTES RELATIVE PERCENT (BEAKER) (test 12 % nhbx=351) EOSINOPHILS RELATIVE PERCENT (BEAKER) (test 2 % fsvt=571) BASOPHILS RELATIVE PERCENT (BEAKER) (test 1 % epiy=178) NEUTROPHILS ABSOLUTE COUNT (BEAKER) (test 3.51 K/ L 1.56-6.13 amev=036) LYMPHOCYTES ABSOLUTE COUNT (BEAKER) (test 0.69 K/ L 1.18-3.74 xayp=492) MONOCYTES ABSOLUTE COUNT (BEAKER) (test tyyz=263) 0.62 K/ L 0.24-0.36 EOSINOPHILS ABSOLUTE COUNT (BEAKER) (test 0.10 K/ L 0.04-0.36 mhfx=548) BASOPHILS ABSOLUTE COUNT (BEAKER) (test ekuj=290) 0.04 K/ L 0.01-0.08 IMMATURE GRANULOCYTES-RELATIVE PERCENT (BEAKER) 0 % 0-1 (test pyzf=4884) ALPHA FETOPROTEIN (AFP), TUMOR [id number] 17:15:00 Test Item Value Reference Range Comments ALPHA-FETOPROTEIN (BEAKER) (test inpq=0910) 3.3 ng/mL <10.0 [id number] 16:34:00 Test Item Value Reference Range Comments MAGNESIUM (BEAKER) (test xrjn=391) 1.8 mg/dL 1.6-2.6 BASIC METABOLIC [id number] 16:34:00 Test Item Value Reference Range Comments SODIUM (BEAKER) (test 133 meq/L 136-145 cdob=166) POTASSIUM (BEAKER) (test 3.9 meq/L 3.5-5.1 vpwt=641) CHLORIDE (BEAKER) (test 99 meq/L 98-107 phrf=302) CO2 (BEAKER) (test 25 meq/L 22-29 sjnx=674) BLOOD UREA NITROGEN 12 mg/dL 7-21 (BEAKER) (test hoks=716) CREATININE (BEAKER) (test 0.97 mg/dL 0.57-1.25 qfus=616) GLUCOSE RANDOM (BEAKER) 93 mg/dL 70-105 (test pljb=421) CALCIUM (BEAKER) (test 9.0 mg/dL 8.4-10.2 vagu=423) EGFR (BEAKER) (test 54 mL/min/1.73 sq m ESTIMATED GFR IS NOT ideo=5783) ACCURATE CREATININE CLEARANCE IN PREDICTING GLOMERULAR FILTRATION RATE. ESTIMATED GFR IS NOT APPLICABLE FOR DIALYSIS PATIENTS. Specimen slightly ictericHEPATIC FUNCTION [id number] 16:34:00 Test Item Value Reference Range Comments TOTAL PROTEIN (BEAKER) (test goar=594) 8.0 gm/dL 6.0-8.3 ALBUMIN (BEAKER) (test vbib=4166) 3.0 g/dL 3.5-5.0 BILIRUBIN TOTAL (BEAKER) (test qxxm=652) 1.9 mg/dL 0.2-1.2 BILIRUBIN DIRECT (BEAKER) (test itdw=053) 0.8 mg/dL 0.1-0.5 ALKALINE PHOSPHATASE (BEAKER) (test ozcy=370) 122 U/L 40-150 AST (SGOT) (BEAKER) (test byzt=799) 30 U/L 5-34 ALT (SGPT) (BEAKER) (test lajf=404) 12 U/L 6-55 Specimen slightly ictericPROTHROMBIN [id number] 16:17:00 Test Item Value Reference Range Comments PROTIME (BEAKER) (test nata=859) 17.3 seconds 11.7-14.7 INR (BEAKER) (test spix=983) 1.4 <=5.9 RECOMMENDED COUMADIN/WARFARIN INR THERAPY RANGESSTANDARD DOSE: 2.0 - 3.0 Includes: PROPHYLAXIS forvenous thrombosis, systemic embolization; TREATMENT for venous thrombosis and/or pulmonary embolus.HIGH RISK: Target INR is 2.5-3.5 for patients with mechanical heart valves.CBC W/PLT COUNT & AUTO [id number] 16:17:00 Test Item Value Reference Range Comments WHITE BLOOD CELL COUNT (BEAKER) (test ijse=422) 5.6 K/ L 3.5-10.5 RED BLOOD CELL COUNT (BEAKER) (test vvok=272) 3.83 M/ L 3.93-5.22 HEMOGLOBIN (BEAKER) (test bgjk=002) 12.0 GM/DL 11.2-15.7 HEMATOCRIT (BEAKER) (test hncr=325) 36.8 % 34.1-44.9 MEAN CORPUSCULAR VOLUME (BEAKER) (test aryd=296) 96.1 fL 79.4-94.8 MEAN CORPUSCULAR HEMOGLOBIN (BEAKER) (test 31.3 pg 25.6-32.2 mjds=048) MEAN CORPUSCULAR HEMOGLOBIN CONC (BEAKER) (test 32.6 GM/DL 32.2-35.5 uuri=177) RED CELL DISTRIBUTION WIDTH (BEAKER) (test 15.9 % 11.7-14.4 rbmh=717) PLATELET COUNT (BEAKER) (test xoqj=599) 83 K/CU MM 150-450 MEAN PLATELET VOLUME (BEAKER) (test qyxh=525) 11.1 fL 9.4-12.3 NUCLEATED RED BLOOD CELLS (BEAKER) (test 0 /100 WBC 0-0 oqvh=440) NEUTROPHILS RELATIVE PERCENT (BEAKER) (test 54 % pqmo=586) LYMPHOCYTES RELATIVE PERCENT (BEAKER) (test 36 % qnrb=217) MONOCYTES RELATIVE PERCENT (BEAKER) (test 8 % luha=145) EOSINOPHILS RELATIVE PERCENT (BEAKER) (test 2 % comu=111) BASOPHILS RELATIVE PERCENT (BEAKER) (test 1 % vozp=113) NEUTROPHILS ABSOLUTE COUNT (BEAKER) (test 3.01 K/ L 1.56-6.13 rbbb=976) LYMPHOCYTES ABSOLUTE COUNT (BEAKER) (test 1.98 K/ L 1.18-3.74 klur=206) MONOCYTES ABSOLUTE COUNT (BEAKER) (test fbtg=963) 0.44 K/ L 0.24-0.36 EOSINOPHILS ABSOLUTE COUNT (BEAKER) (test 0.10 K/ L 0.04-0.36 tlkr=271) BASOPHILS ABSOLUTE COUNT (BEAKER) (test qjpu=596) 0.04 K/ L 0.01-0.08 IMMATURE GRANULOCYTES-RELATIVE PERCENT (BEAKER) 0 % 0-1 (test yjio=0188) ALPHA FETOPROTEIN (AFP), TUMOR [id number] 16:14:00 Test Item Value Reference Range Comments ALPHA-FETOPROTEIN (BEAKER) (test yagp=3022) 5.7 ng/mL <10.0 Effective 07/17/2014: Reference Range ChangeNew: <10.0 Previous: 0.0- [id number] 15:57:00 Test Item Value Reference Range Comments MAGNESIUM (BEAKER) (test imra=707) 1.9 mg/dL 1.6-2.6 BASIC METABOLIC [id number] 15:57:00 Test Item Value Reference Range Comments SODIUM (BEAKER) (test 139 meq/L 136-145 baxl=977) POTASSIUM (BEAKER) (test 4.5 meq/L 3.5-5.1 orqd=129) CHLORIDE (BEAKER) (test 105 meq/L 98-107 qdpl=989) CO2 (BEAKER) (test 25 meq/L 22-29 synz=903) BLOOD UREA NITROGEN 15 mg/dL 7-21 (BEAKER) (test ugsc=891) CREATININE (BEAKER) (test 0.95 mg/dL 0.57-1.25 kkga=957) GLUCOSE RANDOM (BEAKER) 86 mg/dL 70-105 (test lwgi=230) CALCIUM (BEAKER) (test 9.4 mg/dL 8.4-10.2 kftt=593) EGFR (BEAKER) (test 56 mL/min/1.73 sq m ESTIMATED GFR IS NOT szdw=3575) ACCURATE CREATININE CLEARANCE IN PREDICTING GLOMERULAR FILTRATION RATE. ESTIMATED GFR IS NOT APPLICABLE FOR DIALYSIS PATIENTS. Specimen slightly ictericHEPATIC FUNCTION [id number] 15:57:00 Test Item Value Reference Range Comments TOTAL PROTEIN (BEAKER) (test wklj=063) 7.6 gm/dL 6.0-8.3 ALBUMIN (BEAKER) (test ooej=8966) 3.2 g/dL 3.5-5.0 BILIRUBIN TOTAL (BEAKER) (test mfzk=801) 1.8 mg/dL 0.2-1.2 BILIRUBIN DIRECT (BEAKER) (test wqfo=054) 0.8 mg/dL 0.1-0.5 ALKALINE PHOSPHATASE (BEAKER) (test knlf=736) 112 U/L 40-150 AST (SGOT) (BEAKER) (test omtc=619) 33 U/L 5-34 ALT (SGPT) (BEAKER) (test czeh=638) 17 U/L 6-55 Specimen slightly ictericPROTHROMBIN [id number] 15:56:00 Test Item Value Reference Range Comments PROTIME (BEAKER) (test dyis=318) 16.7 seconds 11.7-14.7 INR (BEAKER) (test lcop=265) 1.4 <=5.9 RECOMMENDED COUMADIN/WARFARIN INR THERAPY RANGESSTANDARD DOSE: 2.0 - 3.0 Includes: PROPHYLAXIS forvenous thrombosis, systemic embolization; TREATMENT for venous thrombosis and/or pulmonary embolus.HIGH RISK: Target INR is 2.5-3.5 for patients with mechanical heart valves.CBC W/PLT COUNT & AUTO [id number] 15:56:00 Test Item Value Reference Range Comments WHITE BLOOD CELL COUNT (BEAKER) (test rywn=585) 5.3 K/ L 4.0-10.0 RED BLOOD CELL COUNT (BEAKER) (test ewxr=742) 4.21 M/ L 4.00-5.00 HEMOGLOBIN (BEAKER) (test aakq=248) 14.1 GM/DL 12.0-15.0 HEMATOCRIT (BEAKER) (test dvqu=140) 41.7 % 36.0-45.0 MEAN CORPUSCULAR VOLUME (BEAKER) (test lzzo=903) 99.1 fL 82.0-99.0 MEAN CORPUSCULAR HEMOGLOBIN (BEAKER) (test 33.4 pg 27.0-33.0 qcfh=571) MEAN CORPUSCULAR HEMOGLOBIN CONC (BEAKER) (test 33.7 GM/DL 32.0-36.0 vegf=620) RED CELL DISTRIBUTION WIDTH (BEAKER) (test 13.2 % 10.3-14.2 frhu=827) PLATELET COUNT (BEAKER) (test dhus=376) 77 K/CU MM 150-430 MEAN PLATELET VOLUME (BEAKER) (test nnon=203) 8.4 fL 6.5-10.5 NUCLEATED RED BLOOD CELLS (BEAKER) (test 0 /100 WBC 0-0 setb=691) NEUTROPHILS RELATIVE PERCENT (BEAKER) (test 54 % wuta=474) LYMPHOCYTES RELATIVE PERCENT (BEAKER) (test 33 % gqfc=848) MONOCYTES RELATIVE PERCENT (BEAKER) (test 10 % whkj=240) EOSINOPHILS RELATIVE PERCENT (BEAKER) (test 3 % rttg=984) BASOPHILS RELATIVE PERCENT (BEAKER) (test 0 % knlb=545) NEUTROPHILS ABSOLUTE COUNT (BEAKER) (test 2.86 K/ L 1.80-8.00 oocq=469) LYMPHOCYTES ABSOLUTE COUNT (BEAKER) (test 1.77 K/ L 1.48-4.50 aaqr=149) MONOCYTES ABSOLUTE COUNT (BEAKER) (test rseg=692) 0.56 K/ L 0.00-1.30 EOSINOPHILS ABSOLUTE COUNT (BEAKER) (test 0.13 K/ L 0.00-0.50 fpxw=356) BASOPHILS ABSOLUTE COUNT (BEAKER) (test qpvu=744) 0.02 K/ L 0.00-0.20 0.03YXEX-[id number] 11:05:00 Test Item Value Reference Range Comments POC-CREATININE (BEAKER) 0.9 mg/dL 0.6-1.3 TESTED AT [facility] [address] [facility] (test vgoi=0874) [facility] [employer] [facility] [employer] [address] POC-EGFR (BEAKER) (test 59 mL/min/1.73M2 qzqb=7221)
--- OUTSIDE RECORDS SUMMARY | 2019-05-19 08:33 | XMS REPORT | Continuity of Care Document ---
:1930 Author Organization [facility] Care Team Providers Name Role Phone MD Michele Hoang Unavailable Unavailable Insurance Providers Payer name Policy type / Policy ID Covered libertarian ID Policy Montoya Coverage type MEDIC[place] [employer] AARP HEALTHCARE OPTIONS (MEDICARE SUPPLEMENT AARP HEALTHCARE [...] Date Office Visit Dakota Michele MD [facility] Apr 27, 2014 Surgery [...]
--- OUTSIDE RECORDS SUMMARY | 2019-05-19 08:33 | XMS REPORT ---
:1930 Author Organization [employer] Care Team Providers Name Role Phone Belkis Luuad Provider Role Unavailable Allergies, Adverse Reactions, Alerts Substance Reaction Event Type Adhesive Tape rash Drug Allergy Morphine Sulfate Info Not Available Drug Allergy Encounters Encounter Location Date Unknown [facility] Aug 12, 2015 Problems Problem Type Condition [...] End Status Dosage Date Date Propranolol HCl [facility] 95535[facility]29 20 mg Orally Active 1 tablet 73-00 daily Gabapentin [facility] 90696-93 300 MG Orally Active 1 capsule 39-19 twice a day (bid) B-12 [facility] 62947-04 2500 MCG Active Unknown 92-72 Sublingual Ocuvite [facility] 35821-17 Orally daily Active 1 tablet 87-60 Lasix [facility] 67732-50 40 MG Orally Active 1 tablet 60-13 Once a day Ciprofloxacin [facility] 94297-42 500 MG/5ML (10%) Active 5 ml 93-01 Orally Twice a day [facility]89 25 MG Orally Active 1 tablet 03-11 daily Caltrate 600+D [facility] 64109-17 600-400 MG-UNIT Active 1 tablet 86-00 Orally [...]
--- OUTSIDE RECORDS SUMMARY | 2019-05-19 08:33 | XMS REPORT | Continuity of Care Document ---
:1930 Author Organization [facility] Care Team Providers Name Role Phone MD Niranjan, Galdino Unavailable Unavailable Insurance Providers Payer name Policy type / Policy ID Covered constitution party ID Policy [place] Coverage type [place] [employer] AARP HEALTHCARE OPTIONS (MEDICARE SUPPLEMENT AARP HEALTHCARE [...] Location Date Lab Report Galdino Ureña MD [facility] Apr 12, 2014 Allergies, Adverse [...]
--- OUTSIDE RECORDS SUMMARY | 2019-05-19 08:33 | XMS REPORT | Continuity of Care Document ---
:1930 Author Organization [facility] Care Team Providers Name Role Phone MD Michele Hoang Unavailable Unavailable Insurance Providers Payer name Policy type / Policy ID Covered alliance party ID Policy Montoya Coverage type MEDIC[place] [employer] AARP HEALTHCARE OPTIONS (MEDICARE SUPPLEMENT AARP HEALTHCARE [...] Location Date Lab Report Dakota Michele MD [facility] [place] Mar 26, 2014 Allergies, Adverse Reactions, Alerts [...]
[2019-05-19 09:12] VITALS: BMI 22.3
[2019-05-19 09:13] LABS: Absolute Lymphocytes (CBC) 0.3 K/uL (0.7-4.9); Basophils % 0.7 % (0-1.3); Lymphocytes % 7.3 % (15.3-44.8); MPV 7.4 fL (7.6-11.3); RBC Red Blood Cell Count 2.97 M/uL (3.86-4.86)
[2019-05-19 09:17] LABS: Protime INR 1.27
[2019-05-19 09:31] LABS: Albumin 2.7 g/dL (3.4-5.0); Bilirubin Total 1.2 mg/dL (0.2-1.0); Potassium 4.4 mmol/L (3.5-5.1); Protein, Total 7.4 g/dL (6.4-8.2)
[2019-05-19] MEDS ORDERED: ALBUMIN HUMAN 25% 200 ML IV ONE (11:25)
--- NOTE | 2019-05-19 11:25 | RAD REPORT ---
EXAM DESCRIPTION: US - Paracentesis Proc Guidance - 05/19/2019 10:33 am CLINICAL HISTORY: Ascites COMPARISON: Multiple prior paracentesis procedures. TECHNIQUE: The patient presents for ultrasound-guided paracentesis. The procedure, risks and altern atives were discussed with the patient in detail. Oral and written consent were obtained. Time out p rocedure was performed. The patient had no contraindicated allergy or medication history. Preliminary sonographic evaluation identified right lower quadrant access site. The skin and deeper tissues were anesthetized with 1 percent lidocaine. Under direct sonographic visualization, a parace ntesis catheter was advanced into the peritoneal cavity. 8 mL of ascites removed for requested labora tory studies. Large volume drainage was initiated. Approximately 4 liters of ascites removed. At the conclusion of the procedure, catheter was withdrawn and a bandage placed at the puncture site. Postprocedure care and precaution instructions were given to the patient. The patient was transferr ed back to same-day surgery for albumin infusion per referring physician order set. IMPRESSION: Ultrasound-guided paracentesis as detailed.
[2019-05-19 12:15] VITALS: TEMP 98
[2019-05-19 12:44] VITALS: BP 117/61; O2SAT 97
== END 2019-05-19 12:35 | disposition home or self-care (01) ==
LOC: DS 08:22
PROVIDERS: ATTEND Internal Medicine Gastroenterology
DX: R18.8 Other ascites (principal); K72.90 Hepatic failure, unspecified without coma; K76.0 Fatty (change of) liver, not elsewhere classified; K74.60 Unspecified cirrhosis of liver; R60.0 Localized edema; K30 Functional dyspepsia; L25.9 Unspecified contact dermatitis, unspecified cause
CPT/HCPCS: 85025; 36415; 85610; 85730; 80053; 96365; 49083; P9047

== ENCOUNTER → 2019-05-26 | Day surgery (SDC) | payer OTHER ==
--- NOTE | 2019-05-26 11:12 | RAD REPORT ---
EXAM DESCRIPTION: US - Paracentesis Proc Guidance - 05/26/2019 11:02 am CLINICAL HISTORY: Liver disease with ascites FINDINGS: The risks, benefits and alternatives to the procedure were explained to the patient and in formed consent obtained. The skin and subcutaneous tissues were anesthetized with Lidocaine. Under sonographic guidance an 8 F rench catheter was placed into the right lower quadrant. 4 liters of yellow fluid was removed The patient experienced no immediate complication. IMPRESSION: Paracentesis
[2019-05-26 12:32] VITALS: BMI 22.4
[2019-05-26 12:33] VITALS: BP 116/59; TEMP 97.4; O2SAT 99
== END | disposition home or self-care (01) ==
LOC: DS 08:19
PROVIDERS: ATTEND Internal Medicine Gastroenterology
DX: R18.8 Other ascites (principal); K76.0 Fatty (change of) liver, not elsewhere classified; K72.90 Hepatic failure, unspecified without coma; E88.09 Other disorders of plasma-protein metabolism, not elsewhere classified; D69.6 Thrombocytopenia, unspecified
CPT/HCPCS: 96365; 49083; 96366; P9047

== ENCOUNTER 2019-05-30 20:08 | Inpatient (IN) | payer OTHER ==
[2019-05-30] MEDS ORDERED: NA CHLORIDE 0.9% 1,000 ML ONE (20:31)
--- NOTE | 2019-05-30 20:51 | RAD REPORT ---
EXAM DESCRIPTION: Brett Single View05/30/2019 8:40 pm CLINICAL HISTORY: Cough COMPARISON: December 2018 FINDINGS: Small left pleural effusion with mild left basilar opacities. Right lung appears clear of acute infiltrate. The heart is normal size. PICC line has its tip in the superior vena cava IMPRESSION: Small left pleural effusion. Mild left basilar opacities may represent pneumonia or atel ectasis
[2019-05-30 20:54] LABS: Absolute Lymphocytes (CBC) 0.5 K/uL (0.7-4.9); Basophils % 0.7 % (0-1.3); Hematocrit 29.2 % (36.0-45.0); Lymphocytes % 9.3 % (15.3-44.8); MPV 7.9 fL (7.6-11.3); RBC Red Blood Cell Count 3.14 M/uL (3.86-4.86)
[2019-05-30 20:55] LABS: Protime INR 1.37
--- NOTE | 2019-05-30 21:04 | EDPHYS ---
Physician Documentation [facility] Name: Whitney Villalta Age: 88 yrs Sex: Female : 1930 Arrival Date: 05/30/2019 Time: 20:12 Bed 5 Private MD: ED Physician Keven Sousa HPI: 05/30 20:57 This 88 yrs old Female presents to ER via Wheelchair with complaints of Fever.patricia 20:57 The patient reports fever, that was measured at 101 degrees Fahrenheit. Onset: The patricia symptoms/episode began/occurred today. Modifying factors: there are no obvious modifying factors. Associated signs and symptoms: Pertinent positives: chills, cough. Severity of symptoms: At their worst the symptoms were mild in the emergency department the symptoms are unchanged. The patient has not experienced similar symptoms in the past. Historical: - Allergies: 20:26 Morphine; ea 20:26 adhesive tapes; ea - Home Meds: 20:26 Xifaxan 550 mg Oral tab 1 tab 2 times per day [Active]; sulfamethoxazole-trimethoprim ea Oral 2 times per day [Active]; spironolactone 25 mg Oral tab 2 tabs daily [Active]; midodrine 5 mg Oral tab 2 tabs twice a day [Active]; rifaximin 200 mg Oral 1 tab 2 times per day [Active]; propylene glycol ophthalmic every 4 hours [Active]; potassium chloride 10 mEq Oral cpER 1 cap 2 times per day [Active]; docusate sodium 100 mg Oral cap 1 cap at bedtime [Active]; Ferrous Sulfate Oral daily [Active]; furosemide 40 mg Oral tab 1 tab once daily [Active]; gabapentin 300 mg Oral cap 1 cap 3 times per day [Active]; Iron CR Oral 28 mg twice a day [Active]; lactulose 20 gram/30 mL Oral soln twice a day [Active]; magnesium oxide 250 mg Oral tab twice a day [Active]; Magnesium Oxide Oral twice a day [Active]; mupirocin 2 % Topical oint twice a day [Active]; omeprazole 40 mg Oral cpDR Every other day [Active]; - PMHx: 20:26 stage 3 cirrhosis; Pneumonia; Lower extremity edema; Liver disease; colon cancer; ea - Immunization history:: Adult Immunizations up to date. - Social history:: Smoking status: Patient/guardian denies using tobacco. - Ebola Screening: : No symptoms or risks identified at this time. ROS: 20:59 Eyes: Negative for injury, pain, redness, and discharge, ENT: Negative for injury, patricia pain, and discharge, Neck: Negative for injury, pain, and swelling, Cardiovascular: Negative for chest pain, palpitations, and edema, Back: Negative for injury and pain, : Negative for injury, bleeding, discharge, and swelling, MS/Extremity: Negative for injury and deformity, Skin: Negative for injury, rash, and discoloration, Neuro: Negative for headache, weakness, numbness, tingling, and seizure, Psych: Negative for depression, anxiety, suicide ideation, homicidal ideation, and hallucinations, Allergy/Immunology: Negative for hives, rash, and allergies, Endocrine: Negative for neck swelling, polydipsia, polyuria, polyphagia, and marked weight changes, Hematologic/Lymphatic: Negative for swollen nodes, abnormal bleeding, and unusual bruising. 20:59 Constitutional: Positive for chills, fatigue, fever. 20:59 Respiratory: Positive for cough, shortness of breath, at rest. 20:59 Abdomen/GI: Positive for abdominal distension. Exam: 20:59 Head/Face: Normocephalic, atraumatic. Eyes: Pupils equal round and reactive to light, patricia extra-ocular motions intact. Lids and lashes normal. Conjunctiva and sclera are non-icteric and not injected. Cornea within normal limits. Periorbital areas with no swelling, redness, or edema. ENT: Nares patent. No nasal discharge, no septal abnormalities noted. Tympanic membranes are normal and external auditory canals are clear. Oropharynx with no redness, swelling, or masses, exudates, or evidence of obstruction, uvula midline. Mucous membranes moist. Neck: Trachea midline, no thyromegaly or masses palpated, and no cervical lymphadenopathy. Supple, full range of motion without nuchal rigidity, or vertebral point tenderness. No Meningismus. Chest/axilla: Normal chest wall appearance and motion. Nontender with no deformity. No lesions are appreciated. Abdomen/GI: Soft, non-tender, with normal bowel sounds. No distension or tympany. No guarding or rebound. No evidence of tenderness throughout. Back: No spinal tenderness. No costovertebral tenderness. Full range of motion. Female : Normal external genitalia. Skin: Warm, dry with normal turgor. Normal color with no rashes, no lesions, and no evidence of cellulitis. MS/ Extremity: Pulses equal, no cyanosis. Neurovascular intact. Full, normal range of motion. Neuro: Awake and alert, GCS 15, oriented to person, place, time, and situation. Cranial nerves II-XII grossly intact. Motor strength 5/5 in all extremities. Sensory grossly intact. Cerebellar exam normal. Normal gait. Psych: Awake, alert, with orientation to person, place and time. Behavior, mood, and affect are within normal limits. 20:59 Constitutional: The patient appears febrile. 20:59 Cardiovascular: Rate: tachycardic, Rhythm: regular, Pulses: Pulses are 4+ in bilateral radial, brachial, femoral, popliteal, posterior tibial and and dorsalis pedis arteries.. Heart sounds: normal, Edema: is not appreciated, JVD: is not appreciated. 20:59 Respiratory: mild respiratory distress is noted, Respirations: normal, Breath sounds: rhonchi, + upper airway congestion. wheezing: expiratory Vital Signs: 20:24 BP 126 / 66; Pulse 106; Resp 20; Temp 100.1; Pulse Ox 95% on R/A; Weight 62.6 kg; ea Height 5 ft. 5 in. (165.10 cm); 22:00 BP 104 / 54; Pulse 108; Resp 20; Temp 100.0(TE); Pulse Ox 100% on Nebulizer Mask; ak1 20:24 Body Mass Index 22.96 (62.60 kg, 165.10 cm) ea MDM: 20:[address] [facility] 21:00 Data reviewed: vital signs, nurses notes, EMS record, lab test result(s), EKG, [facility] radiologic studies, plain films. 05/30 20:16 Order name: Basic Metabolic Panel [facility] 05/30 20:16 Order name: CBC with Diff [facility] 05/30 20:16 Order name: LFT's [facility] 05/30 20:16 Order name: Magnesium [facility] 05/30 20:16 Order name: NT PRO-BNP [facility] 05/30 20:16 Order name: PT-INR [facility] 05/30 20:16 Order name: Troponin (emerg Dept Use Only) [facility] 05/30 20:16 Order name: Lipase [facility] 05/30 20:16 Order name: Urine Culture [facility] 05/30 20:16 Order name: Blood Culture Adult (2) [facility] 05/30 20:16 Order name: Procalcitonin [facility] 05/30 20:16 Order name: Lactate [facility] 05/30 20:18 Order name: Basic Metabolic Panel [facility] 05/30 20:18 Order name: CBC with Automated Diff; Complete Time: 21:01 [facility] 05/30 20:16 Order name: XRAY Chest (1 view); Complete Time: 21:01 [facility] 05/30 20:16 Order name: EKG; Complete Time: 20:18 [facility] 05/30 20:16 Order name: Cardiac monitoring; Complete Time: 20:31 [facility] 05/30 20:18 Order name: Liver (Hepatic) Function [facility] 05/30 20:18 Order name: Magnesium [facility] 05/30 20:18 Order name: NT PRO-BNP [facility] 05/30 20:18 Order name: Protime (+INR); Complete Time: 21:01 [facility] 05/30 20:18 Order name: Troponin (Emerg Dept Use Only) [facility] 05/30 21:02 Order name: AMMONIA [facility] 05/30 21:55 Order name: Urine Dipstick--Ancillary (enter results) ds 05/30 20:16 Order name: EKG - Nurse/Tech; Complete Time: 20:31 [facility] 05/30 20:16 Order name: IV Saline Lock; Complete Time: 20:31 [facility] 05/30 20:16 Order name: Labs collected and sent; Complete Time: 20:31 [facility] 05/30 20:16 Order name: O2 Per Protocol; Complete Time: 20:31 [facility] 05/30 20:16 Order name: O2 Sat Monitoring; Complete Time: 20:31 [facility] 05/30 20:16 Order name: Urine Dipstick-Ancillary (obtain specimen); Complete Time: 21:44 [facility] 05/30 21:07 Order name: Otero; Complete Time: 21:43 ak1 Administered Medications: 20:34 Drug: NS 0.9% 1000 ml Route: IV; Rate: 125 ml/hr; Site: right upper arm; ak 21:20 Drug: Rocephin - (cefTRIAXone) 1 grams Route: IVPB; Infused Over: 30 mins; Site: right [facility] upper arm; 21:29 Follow up: IV Status: Completed infusion; IV Intake: 10ml ak1 21:20 Drug: Tylenol 500 mg Route: PO; ak1 21:29 Follow up: Response: No adverse reaction ak1 23:34 Follow up: Response: No adverse reaction 21:21 Drug: Zithromax 500 mg Route: IVPB; Infused Over: 1 hrs; Site: right upper arm; ak1 22:16 Follow up: IV Status: Completed infusion; IV Intake: 250ml ak1 21:43 Drug: Xopenex 1.25 mg Route: Inhalation; ak1 23:34 Follow up: Response: No adverse reaction 21:43 Drug: AtroVENT Aerosol 0.5 mg Route: Inhalation; ak1 23:34 Follow up: Response: No adverse reaction Disposition: 05/30/19 21:03 Hospitalization ordered by Ronal Reza for Inpatient Admission. Preliminary diagnosis are Fever, unspecified, Ascites, Pleural effusion in conditions classified elsewhere, Pneumonia due to other specified bacteria, Anemia, unspecified. - Bed requested for Telemetry/MedSurg (Inpatient). - Status is Inpatient Admission. ch - Condition is Fair. - Problem is new. - Symptoms have improved. UTI on Admission? No Signatures: Dispatcher [employer] EDMS Palak Christine RN RN Tanisha Ferreira RN RN mw Anderson, Corey, MD MD cha Krenek, Amber RN Melissa Ac RN KULDIP decker Corrections: (The following items were deleted from the chart) 21:03 21:03 Hospitalization Ordered by Ronal Reza DO for Inpatient Admission. Preliminary [facility] diagnosis is Fever, unspecified; Ascites; Pleural effusion in conditions classified elsewhere; Pneumonia due to other specified bacteria. Bed requested for Telemetry/MedSurg (Inpatient). Status is Inpatient Admission. Condition is Fair. Problem is new. Symptoms have improved. UTI on Admission? No. patricia 21:47 21:03 05/30/2019 21:03 Hospitalization Ordered by Ronal Reza DO for Inpatient Admission. Preliminary diagnosis is Fever, unspecified; Ascites; Pleural effusion in conditions classified elsewhere; Pneumonia due to other specified bacteria; Anemia, unspecified. Bed requested for Telemetry/MedSurg (Inpatient). Status is Inpatient Admission. Condition is Fair. Problem is new. Symptoms have improved. UTI on Admission? No. patricia 22:32 21:47 05/30/2019 21:03 Hospitalization Ordered by Ronal Reza DO for Inpatient Admission. Preliminary diagnosis is Fever, unspecified; Ascites; Pleural effusion in conditions classified elsewhere; Pneumonia due to other specified bacteria; Anemia, unspecified. Bed requested for Telemetry/MedSurg (Inpatient). Status is Inpatient Admission. Condition is Fair. Problem is new. Symptoms have improved. UTI on Admission? No. mw
--- NOTE | 2019-05-30 21:04 | ER ---
Nurse's Notes [facility] Name: Whitney Villalta Age: 88 yrs Sex: Female : 1930 Arrival Date: 05/30/2019 Time: 20:12 Bed 5 Private MD: Diagnosis: Fever, unspecified;Ascites;Pleural effusion in conditions classified elsewhere;Pneumonia due to other specified bacteria;Anemia, unspecified Presentation: 05/30 20:21 Presenting complaint: Child states: Son reports he went and cooked breakfast for his ea mother this AM, she looked OK, came back after work and looked like she wasn't feeling well. Son reports temp was 101, care staff reported she had crackles in her lungs. Transition of care: patient was not received from another setting of care. Onset of symptoms was May 30, 2019. Risk Assessment: Do you want to hurt yourself or someone else? Patient reports no desire to harm self or others. Initial Sepsis Screen: Does the patient meet any 2 criteria? HR > 90 bpm. Care prior to arrival: Pt reports paracentesis done on Wednesday of last week. 20:21 Method Of Arrival: Wheelchair ea 20:21 Acuity: KELLY 3 ea 23:35 Initial Sepsis Screen: Does the patient have a suspected source of infection? Yes:. Triage Assessment: 20:27 General: Appears in no apparent distress. uncomfortable, Behavior is calm, cooperative, ea appropriate for age. Respiratory: Airway is patent Respiratory effort is even, unlabored, Respiratory pattern is regular, symmetrical. GI: Abdomen is distended, noted to have ascites. Derm: Skin is fragile. Historical: - Allergies: 20:26 Morphine; ea 20:26 adhesive tapes; ea - Home Meds: 20:26 Xifaxan 550 mg Oral tab 1 tab 2 times per day [Active]; sulfamethoxazole-trimethoprim ea Oral 2 times per day [Active]; spironolactone 25 mg Oral tab 2 tabs daily [Active]; midodrine 5 mg Oral tab 2 tabs twice a day [Active]; rifaximin 200 mg Oral 1 tab 2 times per day [Active]; propylene glycol ophthalmic every 4 hours [Active]; potassium chloride 10 mEq Oral cpER 1 cap 2 times per day [Active]; docusate sodium 100 mg Oral cap 1 cap at bedtime [Active]; Ferrous Sulfate Oral daily [Active]; furosemide 40 mg Oral tab 1 tab once daily [Active]; gabapentin 300 mg Oral cap 1 cap 3 times per day [Active]; Iron CR Oral 28 mg twice a day [Active]; lactulose 20 gram/30 mL Oral soln twice a day [Active]; magnesium oxide 250 mg Oral tab twice a day [Active]; Magnesium Oxide Oral twice a day [Active]; mupirocin 2 % Topical oint twice a day [Active]; omeprazole 40 mg Oral cpDR Every other day [Active]; - PMHx: 20:26 stage 3 cirrhosis; Pneumonia; Lower extremity edema; Liver disease; colon cancer; ea - Immunization history:: Adult Immunizations up to date. - Social history:: Smoking status: Patient/guardian denies using tobacco. - Ebola Screening: : No symptoms or risks identified at this time. Screenin:24 Abuse screen: Denies threats or abuse. Nutritional screening: No deficits noted. ea Tuberculosis screening: No symptoms or risk factors identified. Fall Risk Gait- Weak (10 pts.). Assessment: 20:38 General: Appears in no apparent distress. comfortable, Behavior is calm, cooperative, ch appropriate for age. Pain: Complains of pain in chest and abdomen Pain currently is 4 out of 10 on a pain scale. Neuro: No deficits noted. Cardiovascular: Heart tones S1 S2 present Capillary refill is brisk fingers Clubbing of nail beds is absent Patient's skin is warm and dry. Pulses Edema is 2+ to left ankle, left foot, left toes, right ankle, right foot and right toes. Respiratory: Airway is patent Respiratory effort is even, unlabored, Breath sounds with crackles bilaterally. fine crackes, at the end of inspiration. GI: Abdomen is round distended, Bowel sounds present X 4 quads. Abd is soft and non tender X 4 quads. Derm: Skin is pink, warm \T\ dry. Musculoskeletal: Circulation, motion, and sensation intact. Capillary refill < 3 seconds. 21:59 Reassessment: Patient appears in no apparent distress at this time. No changes from ak1 previously documented assessment. Patient and/or family updated on plan of care and expected duration. Pain level reassessed. Patient is alert, oriented x 3, equal unlabored respirations, skin warm/dry/pink. Vital Signs: 20:24 BP 126 / 66; Pulse 106; Resp 20; Temp 100.1; Pulse Ox 95% on R/A; Weight 62.6 kg; ea Height 5 ft. 5 in. (165.10 cm); 22:00 BP 104 / 54; Pulse 108; Resp 20; Temp 100.0(TE); Pulse Ox 100% on Nebulizer Mask; ak1 20:24 Body Mass Index 22.96 (62.60 kg, 165.10 cm) ea ED Course: 20:12 Patient arrived in ED. cl3 20:14 Keven Sousa MD is Attending Physician. patricia 20:24 Triage completed. ea 20:25 Arm band placed on left wrist. Patient placed in an exam room, on a stretcher, on pulse ea oximetry. 20:27 Patient has correct armband on for positive identification. Bed in low position. Call ea light in reach. Side rails up X2. 20:38 Palak Christine, KULDIP is Primary Nurse. ch 20:38 Warm blanket given. Pillow given. ch 20:38 No provider procedures requiring assistance completed. Accessed PICC line. ch 20:41 XRAY Chest (1 view) In Process Unspecified. EDMS 21:02 Ronal Reza DO is Hospitalizing Provider. patricia 21:45 Cleaned of incontinence. lt1 21:45 Otero cath inserted, using sterile technique, 16 Fr., by mi, balloon inflated, to lt1 gravity drainage, urine specimen collected. Patient tolerated well. 21:53 Blood Culture Adult (2) Sent. ds4 21:53 Urine Culture Sent. ds4 21:59 Patient admitted, IV remains in place. ak1 Administered Medications: 20:34 Drug: NS 0.9% 1000 ml Route: IV; Rate: 125 ml/hr; Site: right upper arm; ak1 21:20 Drug: Rocephin - (cefTRIAXone) 1 grams Route: IVPB; Infused Over: 30 mins; Site: right ak1 upper arm; 21:29 Follow up: IV Status: Completed infusion; IV Intake: 10ml ak1 21:20 Drug: Tylenol 500 mg Route: PO; ak1 21:29 Follow up: Response: No adverse reaction ak1 23:34 Follow up: Response: No adverse reaction 21:21 Drug: Zithromax 500 mg Route: IVPB; Infused Over: 1 hrs; Site: right upper arm; ak1 22:16 Follow up: IV Status: Completed infusion; IV Intake: 250ml ak1 21:43 Drug: Xopenex 1.25 mg Route: Inhalation; ak1 23:34 Follow up: Response: No adverse reaction 21:43 Drug: AtroVENT Aerosol 0.5 mg Route: Inhalation; ak1 23:34 Follow up: Response: No adverse reaction Intake: 21:29 IV: 10ml; Total: 10ml. ak1 22:16 IV: 250ml; Total: 260ml. ak1 Outcome: 21:03 Decision to Hospitalize by Provider. [facility] 21:59 Admitted to Med/surg accompanied by tech, via stretcher, with chart. ak1 21:59 Condition: stable 21:59 Instructed on the need for admit. 22:32 Patient left the ED. Signatures: Dispatcher [employer] Palak Pemberton, Keven Mittal RN, ch, MD MD cha Swanson, Donovan ds4 Ghazala Landaverde RN RN ak1 Melissa Brothers RN RN ea Tran, Leah lt1 Lewis, Charde cl3
[2019-05-30] MEDS ORDERED: IPRATROPIUM BROM 0.5MG/2.5ML ONE (21:07)
[2019-05-30] MEDS ORDERED: AZITHROMYCIN 500 MG INJ IVPB ONE (21:08)
[2019-05-30] MEDS ORDERED: ACETAMINOPHEN 500 MG TAB ONE (21:08)
[2019-05-30] MEDS ORDERED: NA CHLORIDE 0.9% 250 ML ONE (21:08)
[2019-05-30] MEDS ORDERED: CEFTRIAXONE/SWI 1gm 1 GM/10 ML SYR ONE (21:08)
[2019-05-30] MEDS ORDERED: LEVALBUTEROL 1.25 MG/3 ML NEB ONE (21:08)
[2019-05-30 21:14] LABS: ALT/SGPT 15 U/L (12-78); AST/SGOT 22 U/L (15-37); Albumin 3.3 g/dL (3.4-5.0); Alkaline Phosphatase 89 U/L (45-117); BUN Blood Urea Nitrogen 28 mg/dL (7-18); Bicarbonate 24 mmol/L (21-32); Bilirubin Direct 0.4 mg/dL (0-0.2); Bilirubin Total 1.1 mg/dL (0.2-1.0); Glucose Level 156 mg/dL (74-106); Lipase 301 U/L (73-393); Magnesium 2.2 mg/dL (1.8-2.4); NT PRO-BNP 407 pg/mL (<450); Potassium 4.7 mmol/L (3.5-5.1); Protein, Total 7.6 g/dL (6.4-8.2); Sodium Level 135 mmol/L (136-145); Troponin (Emerg Dept Use Only) < 0.02 ng/mL (0.0-0.045)
--- NOTE | 2019-05-30 21:54 | P.HP ---
Certification for Inpatient Patient admitted to: Inpatient With expected LOS: >2 Midnights Patient will require the following post-hospital care: Other (Continue home health/caregiver services at discharge) Practitioner: I am a practitioner with admitting privileges, knowledge of patient current condition, hospital course, and medical plan of care. Services: Services provided to patient in accordance with Admission requirements found in Title 42 Section 412.3 of the Code of Federal Regulations Patient History Date of Service: 05/30/19 Primary Care Provider: Dr. Ballesteros; GI-Dr. Dunn/Dr. Murguia Reason for admission: Cough, fever History of Present Illness: 88-year-old female presented to the emergency room with cough and fever. Patient with history of underlying liver cirrhosis, hepatitis-C, GERD, stage III chronic renal disease. Over the past several days patient has been having increased cough and congestion. She was seen early this week by her home health nurse. The nurse reported that she heard some crackles to the bases. Today the son noted that the patient had a fever 100.8. Patient had mild shortness of breath, cough. Fatigue also noted. The son brought the patient in for further evaluation. In the ER patient evaluated. Vital signs stable. Fever noted. Mild tachycardia at 106 noted. Blood pressure 126/66. Saturations in the normal range at 95%. Chest x-ray revealed small left pleural effusion with suspected pneumonia to the base. White count 5.6, hemoglobin 9.9. Platelet count 118. Percent neutrophils 78. Lactic acid within normal range. Pro calcitonin pending at this time. Sodium 135, potassium 4.6, BUN of 28, creatinine 1.2 with a GFR 42. Glucose 156. Patient admitted for further evaluation and treatment. Patient given IV antibiotic therapy in the emergency room. Blood cultures obtained. When I saw the patient in ER, she appeared stable. She did not appear septic at this time. Son at bedside. Son reports the patient is seen by GI closely. She gets paracentesis every Wednesday removing 4 Liters at a time. She also gets albumin every Wednesday and Wednesday. Allergies adhesive tape Allergy (Verified 05/15/19 10:41) Itching morphine Allergy (Verified 05/15/19 10:41) hallucinations Home medications list reviewed: Yes Home Medications: Gabapentin 1 cap PO TID 07/11/18 Magnesium Oxide [Magnesium] 1 tab PO BID 07/11/18 Lactulose [Cephulac*] 30 ml PO BID #1500 ml 12/12/18 Docusate [Colace Cap*] 100 mg PO BEDTIME #30 cap 12/29/18 Ensure Enlive 237 ml PO BID can 12/29/18 Mupirocin Oint [Bactroban 2% Ointment*] 1 appl TOP BID #1 tube 12/29/18 Omeprazole [Prilosec] 40 mg PO 30 MIN BEFORE HS 12/29/18 Rifaximin [Xifaxan] 550 mg PO BID #60 tablet 12/29/18 Propylene Glycol/Peg 400/Pf [Systane 0.3-0.4% Eye Drop] 1 drop EACH EYE Q4H PRN 01/05/19 Ferrous Sulfate [High Potency Iron] 27 mg PO DAILY 01/23/19 - Past Medical/Surgical History Diabetic: No -: Liver cirrhosis with hepatitis C -: Colon cancer -: GERD -: back surgery -: knee surgery -: gallbladder removal -: tonsillectomy -: hysterectomy Psychosocial/ Personal History: Patient lives at home with . She receives home health and caregiver services. - Family History Father -: Heart disease Notes: [place] Mother Notes: lived till 99 - Social History Smoking Status: Never smoker Alcohol use: No CD- Drugs: No Caffeine use: Yes Place of Residence: Home Review of Systems General: Fever, Weakness, Malaise, As per HPI Eyes: Unremarkable ENT: Nose Congestion, As per HPI Respiratory: Cough, Shortness of Breath, As per HPI Cardiovascular: Unremarkable Gastrointestinal: Unremarkable Genitourinary: Unremarkable Musculoskeletal: Unremarkable Integumentary: Unremarkable Neurological: Unremarkable Lymphatics: Unremarkable Physical Examination - Physical Exam General: Alert, In no apparent distress, Oriented x3, Cooperative HEENT: Atraumatic, Normocephalic, Other (Dry mucous membrane) Neck: Supple, No Thyromegaly Respiratory: Crackles/rales (Mild crackles to the left base.) Cardiovascular: Normal pulses, Regular rate/rhythm Gastrointestinal: Normal bowel sounds, Soft and benign, Non-distended, No tenderness, No masses, No rebound, No guarding, Ascites (Mild ascites noted) Musculoskeletal: No erythema, No tenderness, No warmth Integumentary: No tenderness/swelling, No erythema, No warmth, No cyanosis Neurological: Normal speech, Normal strength at 5/5 x4 extr, Normal tone, Normal affect - Studies Laboratory Data (last 24 hrs) 05/30/19 20:30: PT 16.0 H, INR 1.37 05/30/19 20:30: WBC 5.6 D, Hgb 9.9 L, Hct 29.2 L, Plt Count 118 L 05/30/19 20:30: Sodium 135 L, Potassium 4.7, BUN 28 H, Creatinine 1.22, Glucose 156 H, Magnesium 2.2, Total Bilirubin 1.1 H, AST 22, ALT 15, Alkaline Phosphatase 89, Lipase 301 Assessment and Plan - Plan Impression: Fever, cough and shortness of breath secondary to left lower lobe pneumonia with mild pleural effusion Chronic liver cirrhosis with hepatitis-C Anemia of chronic disease GERD Acute on chronic renal disease stage III Chronic ascites related to liver cirrhosis Plan: Fever, cough and shortness of breath secondary to left lower lobe pneumonia with mild pleural effusion: Patient will be admitted for further evaluation and treatment. Rocephin and Zithromax IV initiated. Will continue with both medication. Will provide medication for cough and congestion. Will maintain sats above 93%. Will provide incentive spirometer. Blood, sputum and urine culture obtained. Will recheck chest x-ray tomorrow. Will provide DVT prophylaxis-Lovenox. Will also provide IV fluids for hydration. Will need to monitor edema and ascites while on IV fluids. This may need to be discontinued tomorrow. Daytime hospitalist will continue her care. Anticipate discharge in the next 48-72 hr with clinical improvement. Advanced directives address in detail with patient with son present. Patient wishes to be do not resuscitate. Patient will go home on continued home health and caregiver services at discharge. Chronic liver cirrhosis with hepatitis-C: Will monitor closely. Will continue with home medication lactulose 30 g b.i.d. and Xifaxan 550 mg 1 pill twice daily. Patient seen by GI as an outpatient. Anemia of chronic disease: Will continue with iron medication. Will monitor closely. GERD: Continue with PPI-Protonix. Acute on chronic renal disease stage III: Will provide low-dose IV fluids. Maintain 1500 cc per day fluid restriction. May need to discontinue IV fluids tomorrow if better hydrated. Chronic ascites related to liver cirrhosis: Will monitor this closely. Patient gets paracentesis every Fridays with removal of 4 L at that time. She also gets albumin 50 g every Wednesday and Wednesday. This will need to be continued. Discharge Plan: Home Plan to discharge in: 72 Hours - Advance Directives Does patient have a Living Will: No Does patient have a Durable POA for Healthcare: No - Code Status/Comfort Care Code Status Assessed: Yes (Advanced directives addressed. Patient is do not resuscitate.) Time Spent Managing Pts Care (In Minutes): 55
[2019-05-30] MEDS ORDERED: ONDANSETRON 4 MG/2 ML VIAL IV PRN (22:27)
[2019-05-30] MEDS ORDERED: BISACODYL E.C. 5 MG TAB PO PRN (22:27)
[2019-05-30] MEDS: NA CHLORIDE 0.9% 1,000 ML IV SCH (22:27)
[2019-05-30] MEDS ORDERED: GUAIFENESIN 600 MG SA TAB PO PRN (22:27)
[2019-05-30] MEDS ORDERED: ACETAMINOPHEN 500 MG TAB PO PRN (22:27)
[2019-05-30] MEDS ORDERED: BENZONATATE 100 MG CAP PO PRN (22:27)
[2019-05-30 22:51] VITALS: BMI 23.6
[2019-05-31 03:20] LABS: Urine Appearance CLOUDY; Urine Bilirubin NEGATIVE (NEG); Urine Blood 3+ (NEG); Urine Color DK YELLOW; Urine Glucose NEGATIVE (NEG); Urine Protein 2+ (NEG); Urine Urobilinogen 0.2 mg/dL (0.2-1.0); Urine pH 5.5 (5.0-7.0)
[2019-05-31 03:26] LABS: Urine Microscopic Reflex ORDER UMIC
[2019-05-31 03:48] LABS: Urine Bacteria 20-50 /HPF (<20); Urine Culture Reflex Order REFLEXED; Urine RBC 20-50 /HPF (NONE SEEN)
[2019-05-31] MEDS: PANTOPRAZOLE 40MG TABLET PO SCH (05:41)
[2019-05-31 05:59] LABS: Absolute Lymphocytes (CBC) 0.6 K/uL (0.7-4.9); Hematocrit 26.2 % (36.0-45.0); Lymphocytes % 14.5 % (15.3-44.8); MPV 7.8 fL (7.6-11.3); RBC Red Blood Cell Count 2.84 M/uL (3.86-4.86)
[2019-05-31 06:21] LABS: Magnesium 2.3 mg/dL (1.8-2.4); Potassium 4.4 mmol/L (3.5-5.1)
[2019-05-31] MEDS: LACTULOSE 20 GM/30 ML UCUP PO SCH ×2 (08:11→21:18)
[2019-05-31] MEDS: CEFTRIAXONE/SWI 1gm 1 GM/10 ML SYR IV SCH (08:12)
[2019-05-31] MEDS: FE SULF/FA/VIT B COMP & C TAB PO SCH (08:12)
[2019-05-31] MEDS: MAGNESIUM OXIDE 400 MG TAB PO SCH (08:12)
[2019-05-31] MEDS: ENOXAPARIN 30 MG/0.3 ML SQ SCH (08:12)
--- NOTE | 2019-05-31 08:55 | RAD REPORT ---
EXAM DESCRIPTION: Jaswant Single View05/31/2019 6:18 am CLINICAL HISTORY: Chest pain COMPARISON: May 30, 2019 FINDINGS: No change in the small left pleural effusion with left basilar opacities which may repres ent pneumonia or atelectasis No other change
[2019-05-31] MEDS ORDERED: Rifaximin 550 MG Tab PO SCH (09:00)
[2019-05-31] MEDS ORDERED: CEFTRIAXONE 1 GM/NS 50 ML 1 GM/50 ML BAG IV SCH (09:00)
[2019-05-31] MEDS: AZITHROMYCIN IV 250 MG in NA CHLORIDE 0.9% 250 ML IVPB SCH (10:17)
--- NOTE | 2019-05-31 11:39 | EKG ---
Test Date: 2019-05-30 Test Time: 20:26:16 [place]: EVA MEASUREMENT RESULTS: Intervals: Rate: 100 AR: 144 QRSD: 70 QT: 330 QTc: 425 [place]: P: 35 AR: 144 QRS: 32 T: 43 INTERPRETIVE STATEMENTS: Normal sinus rhythm Normal ECG Compared to ECG 01/23/2019 08:19:29 No significant changes Electronically Signed On 05-31-19 11:38:16 CDT by Bravo Gonzalez
[2019-05-31 13:27] LABS: Anisocytosis 1+; Blood Morphology Comment NOTED (NOT SEEN); Platelet Estimate DECR; Urine White Blood Cell Casts OK
[2019-05-31] MEDS: NA CHLORIDE 0.9% 1,000 ML IV SCH (16:37)
--- NOTE | 2019-05-31 17:06 | P.PN ---
Subjective Date of Service: 05/31/19 Primary Care Provider: Dr. Ballesteros; GI-Dr. Dunn/Dr. Murguia Chief Complaint: Cough, fever Subjective: Improving Patient seen and examined at bedside. No family at bedside. Chart reviewed and case discussed with nursing staff. Low-grade fever overnight Doing better this morning, no complaints this morning. Review of Systems 10-point ROS is otherwise unremarkable Physical Examination - Vital Signs Temperature: 100.6 F Blood Pressure: 125/59 Pulse: 93 Respirations: 16 Pulse Ox (%): 98 - Physical Exam General: Alert, In no apparent distress HEENT: Atraumatic, PERRLA, EOMI Neck: Supple, JVD not distended Respiratory: Clear to auscultation bilaterally, Dull Cardiovascular: Regular rate/rhythm, Normal S1 S2 Gastrointestinal: Normal bowel sounds, No tenderness Musculoskeletal: No tenderness Integumentary: No rashes Neurological: Normal speech, Normal tone, Normal affect Lymphatics: No axilla or inguinal lymphadenopathy - Studies Laboratory Data (last 24 hrs) 05/30/19 20:30: PT 16.0 H, INR 1.37 05/30/19 20:30: WBC 5.6 D, Hgb 9.9 L, Hct 29.2 L, Plt Count 118 L 05/30/19 20:30: Sodium 135 L, Potassium 4.7, BUN 28 H, Creatinine 1.22, Glucose 156 H, Magnesium 2.2, Total Bilirubin 1.1 H, AST 22, ALT 15, Alkaline Phosphatase 89, Lipase 301 Assessment And Plan - Plan Impression: left lower lobe pneumonia with mild pleural effusion Chronic liver cirrhosis with hepatitis-C Anemia of chronic disease GERD Acute on chronic renal disease stage III Chronic ascites 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 Wean as tolerated -cultures pending -will Dc IV fluids Chronic liver cirrhosis with hepatitis-C: -Will continue with home medication lactulose 30 g b.i.d. and Xifaxan 550 mg 1 pill twice daily. -Patient seen by GI as an outpatient. Anemia of chronic disease: -Will continue with iron medication. -continue to monitor H&H GERD: -Continue with PPI-Protonix. Acute on chronic renal disease stage III: -Will provide low-dose IV fluids. Will discontinue IV fluids -Maintain 1500 cc per day fluid restriction. Chronic ascites related to liver cirrhosis: Will monitor this closely. Patient gets paracentesis every Fridays with removal of 4 L at that time. She also gets albumin 50 g every Wednesday and Wednesday. This will need to be continued.
[2019-05-31] MEDS: RIFAXIMIN 550 MG TAB PO SCH (21:19)
[2019-05-31] MEDS: GABAPENTIN 100 MG CAP PO PRN (21:29)
[2019-06-01 05:23] LABS: Absolute Lymphocytes (CBC) 0.6 K/uL (0.7-4.9); Basophils % 0.8 % (0-1.3); Hematocrit 27.2 % (36.0-45.0); Lymphocytes % 13.6 % (15.3-44.8); MPV 8.6 fL (7.6-11.3); RBC Red Blood Cell Count 2.96 M/uL (3.86-4.86)
[2019-06-01 05:52] LABS: Magnesium 2.2 mg/dL (1.8-2.4); Potassium 4.1 mmol/L (3.5-5.1)
[2019-06-01] MEDS: PANTOPRAZOLE 40MG TABLET PO SCH (06:09)
[2019-06-01] MEDS: MAGNESIUM OXIDE 400 MG TAB PO SCH (09:00)
[2019-06-01] MEDS: RIFAXIMIN 550 MG TAB PO SCH ×2 (09:00→21:05)
[2019-06-01] MEDS: LACTULOSE 20 GM/30 ML UCUP PO SCH ×2 (09:00→21:07)
[2019-06-01] MEDS: AZITHROMYCIN IV 250 MG in NA CHLORIDE 0.9% 250 ML IVPB SCH (09:00)
[2019-06-01] MEDS: ENOXAPARIN 30 MG/0.3 ML SQ SCH (10:44)
[2019-06-01] MEDS: CEFTRIAXONE/SWI 1gm 1 GM/10 ML SYR IV SCH (10:45)
[2019-06-01] MEDS: FE SULF/FA/VIT B COMP & C TAB PO SCH (10:45)
[2019-06-01] MEDS: NA CHLORIDE 0.9% 1,000 ML IV SCH (10:47)
--- NOTE | 2019-06-01 11:11 | P.PN ---
Subjective Date of Service: 06/01/19 Primary Care Provider: Dr. Ballesteros; GI-Dr. Dunn/Dr. Murguia Chief Complaint: Cough, fever Subjective: Improving Patient seen and examined at bedside. No family at bedside. Chart reviewed and case discussed with nursing staff. No fever overnight, no acute events noted overnight Doing better this morning, no complaints this morning. Review of Systems 10-point ROS is otherwise unremarkable Physical Examination - Vital Signs Temperature: 99.6 F Blood Pressure: 111/60 Pulse: 102 Respirations: 18 Pulse Ox (%): 95 - Physical Exam General: Alert, In no apparent distress HEENT: Atraumatic, PERRLA, EOMI Neck: Supple, JVD not distended Respiratory: Clear to auscultation bilaterally, Normal air movement Cardiovascular: Regular rate/rhythm, Normal S1 S2 Gastrointestinal: Normal bowel sounds, No tenderness Musculoskeletal: No tenderness Integumentary: No rashes Neurological: Normal speech, Normal tone, Normal affect Lymphatics: No axilla or inguinal lymphadenopathy Assessment And Plan - Plan Impression: left lower lobe pneumonia with mild pleural effusion Chronic liver cirrhosis with hepatitis-C Anemia of chronic disease GERD Acute on chronic renal disease stage III Chronic ascites 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 Wean as tolerated -cultures pending -will Dc IV fluids Chronic liver cirrhosis with hepatitis-C: -Will continue with home medication lactulose 30 g b.i.d. and Xifaxan 550 mg 1 pill twice daily. -Patient seen by GI as an outpatient. Anemia of chronic disease: -Will continue with iron medication. -continue to monitor H&H GERD: -Continue with PPI-Protonix. Acute on chronic renal disease stage III: -Will provide low-dose IV fluids. Will discontinue IV fluids -Maintain 1500 cc per day fluid restriction. Chronic ascites related to liver cirrhosis: Will monitor this closely. Patient gets paracentesis every Fridays with removal of 4 L at that time. She also gets albumin 50 g every Wednesday and Wednesday. This will need to be continued. Disposition: Anticipate discharge tomorrow after paracentesis
[2019-06-01] MEDS: GABAPENTIN 100 MG CAP PO PRN (21:17)
[2019-06-02 05:17] LABS: Absolute Lymphocytes (CBC) 0.6 K/uL (0.7-4.9); Basophils % 0.8 % (0-1.3); Hematocrit 25.8 % (36.0-45.0); Lymphocytes % 14.1 % (15.3-44.8); MPV 7.9 fL (7.6-11.3); RBC Red Blood Cell Count 2.79 M/uL (3.86-4.86)
[2019-06-02] MEDS: PANTOPRAZOLE 40MG TABLET PO SCH (05:36)
[2019-06-02 05:48] LABS: Magnesium 2.1 mg/dL (1.8-2.4)
[2019-06-02] MEDS ORDERED: ENSURE ENLIVE 237 ML CAN PO SCH (09:00)
[2019-06-02] MEDS: MAGNESIUM OXIDE 400 MG TAB PO SCH (09:00)
[2019-06-02 09:27] VITALS: BP 116/57; TEMP 98.3
[2019-06-02] MEDS: NA CHLORIDE 0.9% 1,000 ML IV SCH (10:27)
[2019-06-02] MEDS: CEFTRIAXONE/SWI 1gm 1 GM/10 ML SYR IV SCH (11:15)
[2019-06-02] MEDS: ENOXAPARIN 30 MG/0.3 ML SQ SCH (11:15)
[2019-06-02] MEDS: AZITHROMYCIN IV 250 MG in NA CHLORIDE 0.9% 250 ML IVPB SCH (11:16)
[2019-06-02] MEDS: LACTULOSE 20 GM/30 ML UCUP PO SCH (11:16)
[2019-06-02] MEDS: FE SULF/FA/VIT B COMP & C TAB PO SCH (11:16)
[2019-06-02] MEDS: RIFAXIMIN 550 MG TAB PO SCH (11:17)
[2019-06-02] MEDS ORDERED: ALBUMIN HUMAN 25% 200 ML IV ONE (11:25)
[2019-06-02] MEDS: ALBUMIN HUMAN 25% 50 ML IV SCH ×4 (12:22→13:30)
--- NOTE | 2019-06-02 12:41 | P.PN ---
Subjective Date of Service: 06/02/19 Primary Care Provider: Dr. Ballesteros; GI-Dr. Dunn/Dr. Murguia Chief Complaint: Cough, fever Subjective: No C/O voiced, Improving Patient seen and examined at bedside. No family at bedside. Chart reviewed and case discussed with nursing staff. No fever overnight, no acute events noted overnight Doing better this morning, no complaints this morning. Status post paracentesis this morning Review of Systems 10-point ROS is otherwise unremarkable Physical Examination - Vital Signs Temperature: 98.3 F Blood Pressure: 116/57 Pulse: 80 Respirations: 16 Pulse Ox (%): 96 - Physical Exam General: Alert, In no apparent distress, Cachectic, Other (elderly) HEENT: Atraumatic, PERRLA, EOMI Neck: Supple, JVD not distended Respiratory: Clear to auscultation bilaterally, Normal air movement Cardiovascular: Regular rate/rhythm, Normal S1 S2 Gastrointestinal: Normal bowel sounds, No tenderness Musculoskeletal: No tenderness Integumentary: No rashes Neurological: Normal speech, Normal tone, Normal affect Lymphatics: No axilla or inguinal lymphadenopathy - Studies Microbiology Data (last 24 hrs): 05/30/19 21:43 Catheterized Urine [place] Count - Final 05/30/19 21:43 Catheterized Urine - Final No growth. Assessment And Plan - Plan Impression: left lower lobe pneumonia with mild pleural effusion Chronic liver cirrhosis with hepatitis-C Anemia of chronic disease GERD Acute on chronic renal disease stage III Chronic ascites 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 Wean as tolerated -cultures pending -will Dc IV fluids Chronic liver cirrhosis with hepatitis-C: -Will continue with home medication lactulose 30 g b.i.d. and Xifaxan 550 mg 1 pill twice daily. -Patient seen by GI as an outpatient. Anemia of chronic disease: -Will continue with iron medication. -continue to monitor H&H GERD: -Continue with PPI-Protonix. Acute on chronic renal disease stage III: -Will provide low-dose IV fluids. Will discontinue IV fluids -Maintain 1500 cc per day fluid restriction. Chronic ascites related to liver cirrhosis: Will monitor this closely. Patient gets paracentesis every Fridays with removal of 4 L at that time. She also gets albumin 50 g every Wednesday and Wednesday. This will need to be continued. Disposition: Anticipate discharge today if stable after albumin
[2019-06-02 13:16] LABS: Body Fluid WBC 225 /mm^3
[2019-06-02 15:29] LABS: Appearance TURBID (CLEAR); Body Fluid Source PLEURAL; Color of fluid Yellow (COLORLESS)
--- NOTE | 2019-06-02 17:20 | P.DS ---
Admission Date: 05/30/19 Discharge Date: 06/02/19 Primary Care Provider: Dr. Ballesteros; GI-Dr. Dunn/Dr. Murguia Disposition: ROUTINE DISCHARGE Discharge Condition: FAIR Reason for Admission: Cough, fever Brief History of Present Illness: 88-year-old female presented to the emergency room with cough and fever. Patient with history of underlying liver cirrhosis, hepatitis-C, GERD, stage III chronic renal disease. Over the past several days patient has been having increased cough and congestion. She was seen early this week by her home health nurse. The nurse reported that she heard some crackles to the bases. Today the son noted that the patient had a fever 100.8. Patient had mild shortness of breath, cough. Fatigue also noted. The son brought the patient in for further evaluation. In the ER patient evaluated. Vital signs stable. Fever noted. Mild tachycardia at 106 noted. Blood pressure 126/66. Saturations in the normal range at 95%. Chest x-ray revealed small left pleural effusion with suspected pneumonia to the base. White count 5.6, hemoglobin 9.9. Platelet count 118. Percent neutrophils 78. Lactic acid within normal range. Pro calcitonin pending at this time. Sodium 135, potassium 4.6, BUN of 28, creatinine 1.2 with a GFR 42. Glucose 156. Patient admitted for further evaluation and treatment. Patient given IV antibiotic therapy in the emergency room. Blood cultures obtained. When I saw the patient in ER, she appeared stable. She did not appear septic at this time. Son at bedside. Son reports the patient is seen by GI closely. She gets paracentesis every Wednesday removing 4 Liters at a time. She also gets albumin every Wednesday and Wednesday. Hospital Course: Patient was admitted with left lower lobe pneumonia with mild pleural effusion. She was started on IV antibiotics and symptom relief without medications. She was provided supplemental oxygen as needed. Cultures remained negative. She was restarted on her home medications of lactulose and rifampin. She but otherwise did well throughout the stay. She is got her paracentesis prior to discharge with a rule 4 L. She also received albumin 50 g today she will continue to have her 50 g of albumin on Wednesday as an outpatient. Her her diagnoses and treatment plan was explained to her, all questions were answered and she verbalized understanding. She was then discharged home in a safe and stable manner. Vital Signs/Physical Exam: Temp Pulse Resp BP Pulse Ox 98.3 F 80 16 116/57 L 96 06/02/19 12:41 06/02/19 12:41 06/02/19 12:41 06/02/19 12:41 06/02/19 12:41 General: Alert, In no apparent distress HEENT: Atraumatic, PERRLA, EOMI Neck: Supple, JVD not distended Respiratory: Clear to auscultation bilaterally, Normal air movement Cardiovascular: Regular rate/rhythm, Normal S1 S2 Gastrointestinal: Normal bowel sounds, No tenderness Musculoskeletal: No tenderness Integumentary: No rashes Neurological: Normal speech, Normal tone, Normal affect Lymphatics: No axilla or inguinal lymphadenopathy Laboratory Data at Discharge: WBC 4.1 K/uL (4.3-10.9) L 06/02/19 04:33 Hgb 8.9 g/dL (12.0-15.0) L 06/02/19 04:33 Hct 25.8 % (36.0-45.0) L 06/02/19 04:33 Plt Count 92 K/uL (152-406) L 06/02/19 04:33 PT 16.0 SECONDS (9.5-12.5) H 05/30/19 20:30 INR 1.37 05/30/19 20:30 Sodium 142 mmol/L (136-145) 06/02/19 04:33 Potassium 4.0 mmol/L (3.5-5.1) 06/02/19 04:33 BUN 19 mg/dL (7-18) H 06/02/19 04:33 Creatinine 0.84 mg/dL (0.55-1.3) 06/02/19 04:33 Glucose 88 mg/dL (74-106) 06/02/19 04:33 Magnesium 2.1 mg/dL (1.8-2.4) 06/02/19 04:33 Total Bilirubin 1.1 mg/dL (0.2-1.0) H 05/30/19 20:30 AST 22 U/L (15-37) 05/30/19 20:30 ALT 15 U/L (12-78) 05/30/19 20:30 Alkaline Phosphatase 89 U/L (45-117) 05/30/19 20:30 Lipase 301 U/L (73-393) 05/30/19 20:30 Home Medications: Aa8/A-Carnitin/Grp/[place]/Hc126 [Gabadone Capsule] 1 each PO TID 05/31/19 Docusate [Colace Cap*] 100 mg PO BEDTIME 05/31/19 Ensure Enlive 237 ml PO BID 05/31/19 Ferrous Sulfate [High Potency Iron] 27 mg PO DAILY AT SUPPER 05/31/19 Gabapentin 300 mg PO TID 05/31/19 Lactulose 30 ml PO BID 05/31/19 Magnesium Oxide 250 mg PO BID 05/31/19 Mupirocin Oint [Bactroban 2% Ointment*] 1 appl TOP BID 05/31/19 Omeprazole [Prilosec] 40 mg PO BEDTIME 05/31/19 Propylene Glycol/Peg 400/Pf [Systane 0.3-0.4% Eye Drop] 1 each OP Q4HP PRN 05/31 Rifaximin [Xifaxan] 550 mg PO BID 05/31/19 Azithromycin [Zithromax] 250 mg PO DAILY #7 tablet 06/02/19 New Medications: Azithromycin [Zithromax] 250 mg PO DAILY #7 tablet Patient Discharge Instructions: Please continue your scheduled regular paracentesis. Return to the emergency room for worsening symptoms Time spent managing pt's care (in minutes): 55
[2019-06-02 19:12] VITALS: O2SAT 96
--- NOTE | 2019-06-03 16:14 | RAD REPORT ---
EXAM DESCRIPTION: US - Paracentesis Proc Guidance - 06/02/2019 7:08 pm CLINICAL HISTORY: Ascites COMPARISON: Multiple prior paracentesis procedures TECHNIQUE: The patient presents as an inpatient for ultrasound-guided paracentesis. The procedure, risks and alternatives were discussed with the patient in detail. Oral and written consent were obtai hugh. Time out procedure was performed. The patient had no contraindicated allergy or medication his tory. PT, INR values within acceptable limits. Preliminary sonographic evaluation identified right lower access site. The skin and deeper tissues w ere anesthetized with 1 percent lidocaine. Under direct sonographic visualization, a paracentesis ca theter was advanced into the peritoneal cavity. Intraperitoneal placement was confirmed. Approximatel y 15 mL of ascites retained for laboratory studies. Large volume drainage was initiated. Approximatel y 4 liters of ascites removed. At the conclusion of the procedure, catheter was withdrawn and a bandage placed at the puncture site. Patient was transferred back to the floor for continued care. No albumin was administered. Nursing s taff was asked to contact the primary care service to determine need for albumin based on other medic al conditions that may be present. IMPRESSION: Ultrasound-guided paracentesis as detailed. Note: Due to prolonged technical difficulties with the PACs dictation systems, final written report w as delayed.
== END 2019-06-02 18:55 | disposition home or self-care (01) | DRG 194 ==
LOC: ER 20:08 → ERHOLD 21:45 → 2ND 22:15
PROVIDERS: ADMIT Family Medicine; ATTEND Family Medicine
PROC: 0W9G3ZX Drainage of Peritoneal Cavity, Percutaneous Approach, Diagnostic (ICD-10-PCS; principal; 2019-06-02)
DX: J18.9 Pneumonia, unspecified organism (principal); R18.8 Other ascites; N17.9 Acute kidney failure, unspecified; K74.60 Unspecified cirrhosis of liver; B19.20 Unspecified viral hepatitis C without hepatic coma; Z85.038 Personal history of other malignant neoplasm of large intestine; D64.9 Anemia, unspecified; N18.3 Chronic kidney disease, stage 3 (moderate); K21.9 Gastro-esophageal reflux disease without esophagitis
CPT/HCPCS: 36415; 49083; 51702; 71045; 80048; 80076; 81003; 81015; 82140; 83605; 83690; 83735; 83880; 84145; 84484; 85025; 85610; 87040; 87086; 87088; 89050; 93005; 96365; 96375; 97116; 97161; 97530; 99285; J0456; J0696; J1650; J7030; P9047

== ENCOUNTER → 2019-06-09 | Day surgery (SDC) | payer OTHER ==
[2019-06-09 10:06] VITALS: BMI 22.4
--- NOTE | 2019-06-09 10:54 | RAD REPORT ---
EXAM DESCRIPTION: US - Paracentesis Proc Guidance - 06/09/2019 10:12 am CLINICAL HISTORY: Liver disease with ascites FINDINGS: The risks, benefits and alternatives to the procedure were explained to the patient and in formed consent obtained. The skin and subcutaneous tissues were anesthetized with Lidocaine. Under sonographic guidance an 8 F rench catheter was placed into the right lower quadrant. 4 liters of yellow fluid was removed and sen t to the lab. The patient experienced no immediate complication. IMPRESSION: Paracentesis
[2019-06-09 12:25] VITALS: TEMP 97.5
[2019-06-09 12:26] VITALS: BP 112/57; O2SAT 98
[2019-06-09 15:15] LABS: Body Fluid Source PERITONEAL
[2019-06-09 15:17] LABS: Appearance CLEAR (CLEAR); Color of fluid Yellow (COLORLESS)
[2019-06-09 15:35] LABS: Body Fluid WBC 118 /mm^3
--- OUTSIDE RECORDS SUMMARY | 2019-07-08 16:40 | XMS REPORT ---
:1930 Author Organization [facility] Address [address] [place] [address] Dr. Rivero [address] [place] [address] Care Team Providers Name Role Phone MARY [...] Value Reference Range Comments ALPHA-FETOPROTEIN (BEAKER) (test jbxk=3408) 2.9 ng/mL <10.0 HEPATIC FUNCTION [id number] 16:38:00 Test Item Value Reference Range Comments TOTAL PROTEIN (BEAKER) (test mpfe=603) 9.0 gm/dL 6.0-8.3 ALBUMIN (BEAKER) (test polx=9251) 2.8 g/dL 3.5-5.0 BILIRUBIN TOTAL (BEAKER) (test udun=867) 1.2 mg/dL 0.2-1.2 BILIRUBIN DIRECT (BEAKER) (test oldn=458) 0.7 mg/dL 0.1-0.5 ALKALINE PHOSPHATASE (BEAKER) (test xahv=608) 111 U/L 40-150 AST (SGOT) (BEAKER) (test rnak=745) 31 U/L 5-34 ALT (SGPT) (BEAKER) (test dpwv=939) 12 U/L 6-55 BASIC METABOLIC [id number] 16:38:00 Test Item Value Reference Range Comments SODIUM (BEAKER) (test 133 meq/L 136-145 gusp=853) POTASSIUM (BEAKER) (test 4.0 meq/L 3.5-5.1 xrrn=556) CHLORIDE (BEAKER) (test 100 meq/L 98-107 zjyh=945) CO2 (BEAKER) (test 27 meq/L 22-29 thyo=724) BLOOD UREA NITROGEN 20 mg/dL 7-21 (BEAKER) (test fimr=828) CREATININE (BEAKER) (test 1.07 mg/dL 0.57-1.25 zeiu=391) GLUCOSE RANDOM (BEAKER) 71 mg/dL 70-105 (test xsjk=535) CALCIUM (BEAKER) (test 9.4 mg/dL 8.4-10.2 tgat=358) EGFR (BEAKER) (test 49 mL/min/1.73 sq m ESTIMATED GFR IS NOT cxjv=3565) ACCURATE CREATININE CLEARANCE IN PREDICTING GLOMERULAR FILTRATION RATE. ESTIMATED GFR IS NOT APPLICABLE FOR DIALYSIS PATIENTS. [id number] 16:33:00 Test Item Value Reference Range Comments AMMONIA (BEAKER) (test jaky=944) 40 mol/L 18-72 PROTHROMBIN [id number] 16:29:00 Test Item Value Reference Range Comments PROTIME (BEAKER) (test udlg=819) 16.5 seconds 11.7-14.7 INR (BEAKER) (test jzsf=367) 1.3 <=5.9 RECOMMENDED COUMADIN/WARFARIN INR THERAPY RANGESSTANDARD DOSE: 2.0 - 3.0 Includes: PROPHYLAXIS forvenous thrombosis, systemic embolization; TREATMENT for venous thrombosis and/or pulmonary embolus.HIGH RISK: Target INR is 2.5-3.5 for patients with mechanical heart valves.CBC W/PLT COUNT & AUTO [id number] 16:22:00 Test Item Value Reference Range Comments WHITE BLOOD CELL COUNT (BEAKER) (test yffg=975) 5.0 K/ L 3.5-10.5 RED BLOOD CELL COUNT (BEAKER) (test akew=317) 3.39 M/ L 3.93-5.22 HEMOGLOBIN (BEAKER) (test sbyn=934) 10.7 GM/DL 11.2-15.7 HEMATOCRIT (BEAKER) (test xqdg=392) 33.1 % 34.1-44.9 MEAN CORPUSCULAR VOLUME (BEAKER) (test ttez=624) 97.6 fL 79.4-94.8 MEAN CORPUSCULAR HEMOGLOBIN (BEAKER) (test 31.6 pg 25.6-32.2 tuji=306) MEAN CORPUSCULAR HEMOGLOBIN CONC (BEAKER) (test 32.3 GM/DL 32.2-35.5 xkaw=552) RED CELL DISTRIBUTION WIDTH (BEAKER) (test 15.0 % 11.7-14.4 upnz=240) PLATELET COUNT (BEAKER) (test soir=300) 98 K/CU MM 150-450 MEAN PLATELET VOLUME (BEAKER) (test qjwg=038) 10.0 fL 9.4-12.3 NUCLEATED RED BLOOD CELLS (BEAKER) (test 0 /100 WBC 0-0 sfwy=419) NEUTROPHILS RELATIVE PERCENT (BEAKER) (test 71 % svqd=589) LYMPHOCYTES RELATIVE PERCENT (BEAKER) (test 14 % vzxt=185) MONOCYTES RELATIVE PERCENT (BEAKER) (test 12 % iuxk=430) EOSINOPHILS RELATIVE PERCENT (BEAKER) (test 2 % gtlr=955) BASOPHILS RELATIVE PERCENT (BEAKER) (test 1 % avfl=424) NEUTROPHILS ABSOLUTE COUNT (BEAKER) (test 3.51 K/ L 1.56-6.13 jfvf=956) LYMPHOCYTES ABSOLUTE COUNT (BEAKER) (test 0.69 K/ L 1.18-3.74 qnus=051) MONOCYTES ABSOLUTE COUNT (BEAKER) (test dlyt=564) 0.62 K/ L 0.24-0.36 EOSINOPHILS ABSOLUTE COUNT (BEAKER) (test 0.10 K/ L 0.04-0.36 ltkp=982) BASOPHILS ABSOLUTE COUNT (BEAKER) (test haxv=096) 0.04 K/ L 0.01-0.08 IMMATURE GRANULOCYTES-RELATIVE PERCENT (BEAKER) 0 % 0-1 (test tyoq=0159) ALPHA FETOPROTEIN (AFP), TUMOR [id number] 17:15:00 Test Item Value Reference Range Comments ALPHA-FETOPROTEIN (BEAKER) (test gktk=0381) 3.3 ng/mL <10.0 [id number] 16:34:00 Test Item Value Reference Range Comments MAGNESIUM (BEAKER) (test mzxc=802) 1.8 mg/dL 1.6-2.6 BASIC METABOLIC [id number] 16:34:00 Test Item Value Reference Range Comments SODIUM (BEAKER) (test 133 meq/L 136-145 tdda=214) POTASSIUM (BEAKER) (test 3.9 meq/L 3.5-5.1 gyvy=664) CHLORIDE (BEAKER) (test 99 meq/L 98-107 qicr=159) CO2 (BEAKER) (test 25 meq/L 22-29 qxsv=725) BLOOD UREA NITROGEN 12 mg/dL 7-21 (BEAKER) (test ojay=089) CREATININE (BEAKER) (test 0.97 mg/dL 0.57-1.25 nwad=523) GLUCOSE RANDOM (BEAKER) 93 mg/dL 70-105 (test mquf=863) CALCIUM (BEAKER) (test 9.0 mg/dL 8.4-10.2 wpdh=958) EGFR (BEAKER) (test 54 mL/min/1.73 sq m ESTIMATED GFR IS NOT wcfw=3375) ACCURATE CREATININE CLEARANCE IN PREDICTING GLOMERULAR FILTRATION RATE. ESTIMATED GFR IS NOT APPLICABLE FOR DIALYSIS PATIENTS. Specimen slightly ictericHEPATIC FUNCTION [id number] 16:34:00 Test Item Value Reference Range Comments TOTAL PROTEIN (BEAKER) (test svde=089) 8.0 gm/dL 6.0-8.3 ALBUMIN (BEAKER) (test ybvs=7867) 3.0 g/dL 3.5-5.0 BILIRUBIN TOTAL (BEAKER) (test fgji=296) 1.9 mg/dL 0.2-1.2 BILIRUBIN DIRECT (BEAKER) (test vkvb=012) 0.8 mg/dL 0.1-0.5 ALKALINE PHOSPHATASE (BEAKER) (test homj=237) 122 U/L 40-150 AST (SGOT) (BEAKER) (test duof=959) 30 U/L 5-34 ALT (SGPT) (BEAKER) (test fyum=341) 12 U/L 6-55 Specimen slightly ictericPROTHROMBIN [id number] 16:17:00 Test Item Value Reference Range Comments PROTIME (BEAKER) (test priq=675) 17.3 seconds 11.7-14.7 INR (BEAKER) (test kbxh=757) 1.4 <=5.9 RECOMMENDED COUMADIN/WARFARIN INR THERAPY RANGESSTANDARD DOSE: 2.0 - 3.0 Includes: PROPHYLAXIS forvenous thrombosis, systemic embolization; TREATMENT for venous thrombosis and/or pulmonary embolus.HIGH RISK: Target INR is 2.5-3.5 for patients with mechanical heart valves.CBC W/PLT COUNT & AUTO [id number] 16:17:00 Test Item Value Reference Range Comments WHITE BLOOD CELL COUNT (BEAKER) (test wfuu=347) 5.6 K/ L 3.5-10.5 RED BLOOD CELL COUNT (BEAKER) (test qtpy=952) 3.83 M/ L 3.93-5.22 HEMOGLOBIN (BEAKER) (test kkgn=531) 12.0 GM/DL 11.2-15.7 HEMATOCRIT (BEAKER) (test xele=661) 36.8 % 34.1-44.9 MEAN CORPUSCULAR VOLUME (BEAKER) (test vpse=728) 96.1 fL 79.4-94.8 MEAN CORPUSCULAR HEMOGLOBIN (BEAKER) (test 31.3 pg 25.6-32.2 xgxc=788) MEAN CORPUSCULAR HEMOGLOBIN CONC (BEAKER) (test 32.6 GM/DL 32.2-35.5 dopz=382) RED CELL DISTRIBUTION WIDTH (BEAKER) (test 15.9 % 11.7-14.4 lycg=814) PLATELET COUNT (BEAKER) (test qrcc=758) 83 K/CU MM 150-450 MEAN PLATELET VOLUME (BEAKER) (test ymep=276) 11.1 fL 9.4-12.3 NUCLEATED RED BLOOD CELLS (BEAKER) (test 0 /100 WBC 0-0 yvkn=240) NEUTROPHILS RELATIVE PERCENT (BEAKER) (test 54 % ycdr=753) LYMPHOCYTES RELATIVE PERCENT (BEAKER) (test 36 % beku=595) MONOCYTES RELATIVE PERCENT (BEAKER) (test 8 % vfit=292) EOSINOPHILS RELATIVE PERCENT (BEAKER) (test 2 % mmdq=096) BASOPHILS RELATIVE PERCENT (BEAKER) (test 1 % brpy=749) NEUTROPHILS ABSOLUTE COUNT (BEAKER) (test 3.01 K/ L 1.56-6.13 sgcf=449) LYMPHOCYTES ABSOLUTE COUNT (BEAKER) (test 1.98 K/ L 1.18-3.74 efui=054) MONOCYTES ABSOLUTE COUNT (BEAKER) (test pvcs=656) 0.44 K/ L 0.24-0.36 EOSINOPHILS ABSOLUTE COUNT (BEAKER) (test 0.10 K/ L 0.04-0.36 exdx=867) BASOPHILS ABSOLUTE COUNT (BEAKER) (test txql=120) 0.04 K/ L 0.01-0.08 IMMATURE GRANULOCYTES-RELATIVE PERCENT (BEAKER) 0 % 0-1 (test tnyo=3707) ALPHA FETOPROTEIN (AFP), TUMOR [id number] 16:14:00 Test Item Value Reference Range Comments ALPHA-FETOPROTEIN (BEAKER) (test tpay=2792) 5.7 ng/mL <10.0 Effective 07/17/2014: Reference Range ChangeNew: <10.0 Previous: 0.0- [id number] 15:57:00 Test Item Value Reference Range Comments MAGNESIUM (BEAKER) (test qpnh=484) 1.9 mg/dL 1.6-2.6 BASIC METABOLIC [id number] 15:57:00 Test Item Value Reference Range Comments SODIUM (BEAKER) (test 139 meq/L 136-145 ckfd=362) POTASSIUM (BEAKER) (test 4.5 meq/L 3.5-5.1 ikwc=866) CHLORIDE (BEAKER) (test 105 meq/L 98-107 uzba=546) CO2 (BEAKER) (test 25 meq/L 22-29 aejz=197) BLOOD UREA NITROGEN 15 mg/dL 7-21 (BEAKER) (test owkw=917) CREATININE (BEAKER) (test 0.95 mg/dL 0.57-1.25 navp=685) GLUCOSE RANDOM (BEAKER) 86 mg/dL 70-105 (test udtq=788) CALCIUM (BEAKER) (test 9.4 mg/dL 8.4-10.2 ofxc=036) EGFR (BEAKER) (test 56 mL/min/1.73 sq m ESTIMATED GFR IS NOT ffjp=5242) ACCURATE CREATININE CLEARANCE IN PREDICTING GLOMERULAR FILTRATION RATE. ESTIMATED GFR IS NOT APPLICABLE FOR DIALYSIS PATIENTS. Specimen slightly ictericHEPATIC FUNCTION [id number] 15:57:00 Test Item Value Reference Range Comments TOTAL PROTEIN (BEAKER) (test qerr=716) 7.6 gm/dL 6.0-8.3 ALBUMIN (BEAKER) (test otta=4017) 3.2 g/dL 3.5-5.0 BILIRUBIN TOTAL (BEAKER) (test qrfj=430) 1.8 mg/dL 0.2-1.2 BILIRUBIN DIRECT (BEAKER) (test xser=468) 0.8 mg/dL 0.1-0.5 ALKALINE PHOSPHATASE (BEAKER) (test shlx=061) 112 U/L 40-150 AST (SGOT) (BEAKER) (test uokc=731) 33 U/L 5-34 ALT (SGPT) (BEAKER) (test oyge=110) 17 U/L 6-55 Specimen slightly ictericPROTHROMBIN [id number] 15:56:00 Test Item Value Reference Range Comments PROTIME (BEAKER) (test zhgz=539) 16.7 seconds 11.7-14.7 INR (BEAKER) (test jphz=051) 1.4 <=5.9 RECOMMENDED COUMADIN/WARFARIN INR THERAPY RANGESSTANDARD DOSE: 2.0 - 3.0 Includes: PROPHYLAXIS forvenous thrombosis, systemic embolization; TREATMENT for venous thrombosis and/or pulmonary embolus.HIGH RISK: Target INR is 2.5-3.5 for patients with mechanical heart valves.CBC W/PLT COUNT & AUTO [id number] 15:56:00 Test Item Value Reference Range Comments WHITE BLOOD CELL COUNT (BEAKER) (test qyjk=575) 5.3 K/ L 4.0-10.0 RED BLOOD CELL COUNT (BEAKER) (test djuz=609) 4.21 M/ L 4.00-5.00 HEMOGLOBIN (BEAKER) (test smuq=635) 14.1 GM/DL 12.0-15.0 HEMATOCRIT (BEAKER) (test ubdj=730) 41.7 % 36.0-45.0 MEAN CORPUSCULAR VOLUME (BEAKER) (test zdct=667) 99.1 fL 82.0-99.0 MEAN CORPUSCULAR HEMOGLOBIN (BEAKER) (test 33.4 pg 27.0-33.0 kvaw=937) MEAN CORPUSCULAR HEMOGLOBIN CONC (BEAKER) (test 33.7 GM/DL 32.0-36.0 quab=159) RED CELL DISTRIBUTION WIDTH (BEAKER) (test 13.2 % 10.3-14.2 rwlf=352) PLATELET COUNT (BEAKER) (test usmh=172) 77 K/CU MM 150-430 MEAN PLATELET VOLUME (BEAKER) (test wtbb=117) 8.4 fL 6.5-10.5 NUCLEATED RED BLOOD CELLS (BEAKER) (test 0 /100 WBC 0-0 sqzc=132) NEUTROPHILS RELATIVE PERCENT (BEAKER) (test 54 % baoq=395) LYMPHOCYTES RELATIVE PERCENT (BEAKER) (test 33 % knoq=963) MONOCYTES RELATIVE PERCENT (BEAKER) (test 10 % mgtw=149) EOSINOPHILS RELATIVE PERCENT (BEAKER) (test 3 % yxtl=158) BASOPHILS RELATIVE PERCENT (BEAKER) (test 0 % xwkw=657) NEUTROPHILS ABSOLUTE COUNT (BEAKER) (test 2.86 K/ L 1.80-8.00 ffta=103) LYMPHOCYTES ABSOLUTE COUNT (BEAKER) (test 1.77 K/ L 1.48-4.50 vruu=337) MONOCYTES ABSOLUTE COUNT (BEAKER) (test ispi=934) 0.56 K/ L 0.00-1.30 EOSINOPHILS ABSOLUTE COUNT (BEAKER) (test 0.13 K/ L 0.00-0.50 sqmt=582) BASOPHILS ABSOLUTE COUNT (BEAKER) (test pmuo=200) 0.02 K/ L 0.00-0.20 0.76UAOS-[id number] 11:05:00 Test Item Value Reference Range Comments POC-CREATININE (BEAKER) 0.9 mg/dL 0.6-1.[address] [facility] [address] [facility] (test uxgy=0172) [facility] [address] POC-EGFR (BEAKER) (test 59 mL/min/1.73M2 nchc=4444)
== END ==
LOC: DS 08:50
PROVIDERS: ATTEND Internal Medicine Gastroenterology
DX: R18.8 Other ascites (principal); K74.60 Unspecified cirrhosis of liver; K72.90 Hepatic failure, unspecified without coma; E88.09 Other disorders of plasma-protein metabolism, not elsewhere classified; D69.6 Thrombocytopenia, unspecified; K76.0 Fatty (change of) liver, not elsewhere classified; L25.9 Unspecified contact dermatitis, unspecified cause; R80.9 Proteinuria, unspecified; R60.0 Localized edema; K30 Functional dyspepsia
CPT/HCPCS: 36415; 89050; 96365; 49083; P9047

== ENCOUNTER 2019-06-16 08:53 | Day surgery (SDC) | payer OTHER ==
[2019-06-16 09:55] LABS: Absolute Lymphocytes (CBC) 0.4 K/uL (0.7-4.9); Basophils % 0.9 % (0-1.3); Hematocrit 27.2 % (36.0-45.0); Lymphocytes % 13.4 % (15.3-44.8); MPV 7.9 fL (7.6-11.3)
[2019-06-16 09:58] LABS: Bilirubin Total 1.1 mg/dL (0.2-1.0); Potassium 3.7 mmol/L (3.5-5.1); Protein, Total 7.6 g/dL (6.4-8.2)
[2019-06-16] MEDS ORDERED: ALBUMIN HUMAN 25% 200 ML IV ONE (11:16)
--- NOTE | 2019-06-16 11:27 | RAD REPORT ---
EXAM DESCRIPTION: US - Paracentesis Proc Guidance - 06/16/2019 11:04 am CLINICAL HISTORY: Liver disease with ascites FINDINGS: The risks, benefits and alternatives to the procedure were explained to the patient and in formed consent obtained. The skin and subcutaneous tissues were anesthetized with Lidocaine. Under sonographic guidance an 8 F rench catheter was placed into the right lower quadrant. Four of liters of yellow fluid was removed The patient experienced no immediate complication. IMPRESSION: Paracentesis
[2019-06-16 15:12] VITALS: BP 118/63; TEMP 98.4; O2SAT 97
[2019-06-16 15:17] VITALS: BMI 22.4
--- OUTSIDE RECORDS SUMMARY | 2019-07-09 02:16 | XMS REPORT ---
:1930 Author Organization [facility] Address [address] [place] [address] [address]. [address] [place] [address] Care Team Providers Name Role Phone MARY [...] Value Reference Range Comments ALPHA-FETOPROTEIN (BEAKER) (test nach=6816) 2.9 ng/mL <10.0 HEPATIC FUNCTION [id number] 16:38:00 Test Item Value Reference Range Comments TOTAL PROTEIN (BEAKER) (test ldgt=270) 9.0 gm/dL 6.0-8.3 ALBUMIN (BEAKER) (test uetm=7332) 2.8 g/dL 3.5-5.0 BILIRUBIN TOTAL (BEAKER) (test yali=657) 1.2 mg/dL 0.2-1.2 BILIRUBIN DIRECT (BEAKER) (test eteg=115) 0.7 mg/dL 0.1-0.5 ALKALINE PHOSPHATASE (BEAKER) (test xhxt=112) 111 U/L 40-150 AST (SGOT) (BEAKER) (test seeu=189) 31 U/L 5-34 ALT (SGPT) (BEAKER) (test efej=117) 12 U/L 6-55 BASIC METABOLIC [id number] 16:38:00 Test Item Value Reference Range Comments SODIUM (BEAKER) (test 133 meq/L 136-145 xwbi=464) POTASSIUM (BEAKER) (test 4.0 meq/L 3.5-5.1 gyen=223) CHLORIDE (BEAKER) (test 100 meq/L 98-107 ujsq=573) CO2 (BEAKER) (test 27 meq/L 22-29 xmqg=470) BLOOD UREA NITROGEN 20 mg/dL 7-21 (BEAKER) (test nyif=585) CREATININE (BEAKER) (test 1.07 mg/dL 0.57-1.25 lgxf=819) GLUCOSE RANDOM (BEAKER) 71 mg/dL 70-105 (test nstj=939) CALCIUM (BEAKER) (test 9.4 mg/dL 8.4-10.2 ccjw=021) EGFR (BEAKER) (test 49 mL/min/1.73 sq m ESTIMATED GFR IS NOT zmlp=9996) ACCURATE CREATININE CLEARANCE IN PREDICTING GLOMERULAR FILTRATION RATE. ESTIMATED GFR IS NOT APPLICABLE FOR DIALYSIS PATIENTS. [id number] 16:33:00 Test Item Value Reference Range Comments AMMONIA (BEAKER) (test vspr=645) 40 mol/L 18-72 PROTHROMBIN [id number] 16:29:00 Test Item Value Reference Range Comments PROTIME (BEAKER) (test oiui=465) 16.5 seconds 11.7-14.7 INR (BEAKER) (test swvy=764) 1.3 <=5.9 RECOMMENDED COUMADIN/WARFARIN INR THERAPY RANGESSTANDARD DOSE: 2.0 - 3.0 Includes: PROPHYLAXIS forvenous thrombosis, systemic embolization; TREATMENT for venous thrombosis and/or pulmonary embolus.HIGH RISK: Target INR is 2.5-3.5 for patients with mechanical heart valves.CBC W/PLT COUNT & AUTO [id number] 16:22:00 Test Item Value Reference Range Comments WHITE BLOOD CELL COUNT (BEAKER) (test pttz=530) 5.0 K/ L 3.5-10.5 RED BLOOD CELL COUNT (BEAKER) (test dfks=218) 3.39 M/ L 3.93-5.22 HEMOGLOBIN (BEAKER) (test rsql=463) 10.7 GM/DL 11.2-15.7 HEMATOCRIT (BEAKER) (test bxax=586) 33.1 % 34.1-44.9 MEAN CORPUSCULAR VOLUME (BEAKER) (test jfmf=954) 97.6 fL 79.4-94.8 MEAN CORPUSCULAR HEMOGLOBIN (BEAKER) (test 31.6 pg 25.6-32.2 mzbo=674) MEAN CORPUSCULAR HEMOGLOBIN CONC (BEAKER) (test 32.3 GM/DL 32.2-35.5 owky=809) RED CELL DISTRIBUTION WIDTH (BEAKER) (test 15.0 % 11.7-14.4 xcxw=790) PLATELET COUNT (BEAKER) (test orag=668) 98 K/CU MM 150-450 MEAN PLATELET VOLUME (BEAKER) (test bqoe=351) 10.0 fL 9.4-12.3 NUCLEATED RED BLOOD CELLS (BEAKER) (test 0 /100 WBC 0-0 ltmm=569) NEUTROPHILS RELATIVE PERCENT (BEAKER) (test 71 % msmu=721) LYMPHOCYTES RELATIVE PERCENT (BEAKER) (test 14 % kbsd=557) MONOCYTES RELATIVE PERCENT (BEAKER) (test 12 % ubfg=649) EOSINOPHILS RELATIVE PERCENT (BEAKER) (test 2 % ubcc=382) BASOPHILS RELATIVE PERCENT (BEAKER) (test 1 % ysiv=757) NEUTROPHILS ABSOLUTE COUNT (BEAKER) (test 3.51 K/ L 1.56-6.13 gqsw=178) LYMPHOCYTES ABSOLUTE COUNT (BEAKER) (test 0.69 K/ L 1.18-3.74 uxcd=175) MONOCYTES ABSOLUTE COUNT (BEAKER) (test tudb=246) 0.62 K/ L 0.24-0.36 EOSINOPHILS ABSOLUTE COUNT (BEAKER) (test 0.10 K/ L 0.04-0.36 wnvk=282) BASOPHILS ABSOLUTE COUNT (BEAKER) (test skwv=684) 0.04 K/ L 0.01-0.08 IMMATURE GRANULOCYTES-RELATIVE PERCENT (BEAKER) 0 % 0-1 (test uijj=6294) ALPHA FETOPROTEIN (AFP), TUMOR [id number] 17:15:00 Test Item Value Reference Range Comments ALPHA-FETOPROTEIN (BEAKER) (test nkls=1979) 3.3 ng/mL <10.0 [id number] 16:34:00 Test Item Value Reference Range Comments MAGNESIUM (BEAKER) (test ildr=826) 1.8 mg/dL 1.6-2.6 BASIC METABOLIC [id number] 16:34:00 Test Item Value Reference Range Comments SODIUM (BEAKER) (test 133 meq/L 136-145 kydq=305) POTASSIUM (BEAKER) (test 3.9 meq/L 3.5-5.1 yxkn=630) CHLORIDE (BEAKER) (test 99 meq/L 98-107 mutu=505) CO2 (BEAKER) (test 25 meq/L 22-29 hftl=688) BLOOD UREA NITROGEN 12 mg/dL 7-21 (BEAKER) (test fkjf=880) CREATININE (BEAKER) (test 0.97 mg/dL 0.57-1.25 wpfl=621) GLUCOSE RANDOM (BEAKER) 93 mg/dL 70-105 (test kozq=507) CALCIUM (BEAKER) (test 9.0 mg/dL 8.4-10.2 zdub=927) EGFR (BEAKER) (test 54 mL/min/1.73 sq m ESTIMATED GFR IS NOT bijp=8160) ACCURATE CREATININE CLEARANCE IN PREDICTING GLOMERULAR FILTRATION RATE. ESTIMATED GFR IS NOT APPLICABLE FOR DIALYSIS PATIENTS. Specimen slightly ictericHEPATIC FUNCTION [id number] 16:34:00 Test Item Value Reference Range Comments TOTAL PROTEIN (BEAKER) (test jpel=259) 8.0 gm/dL 6.0-8.3 ALBUMIN (BEAKER) (test phon=4634) 3.0 g/dL 3.5-5.0 BILIRUBIN TOTAL (BEAKER) (test fuch=187) 1.9 mg/dL 0.2-1.2 BILIRUBIN DIRECT (BEAKER) (test rpyc=096) 0.8 mg/dL 0.1-0.5 ALKALINE PHOSPHATASE (BEAKER) (test bhoi=326) 122 U/L 40-150 AST (SGOT) (BEAKER) (test ncqn=935) 30 U/L 5-34 ALT (SGPT) (BEAKER) (test hdrb=639) 12 U/L 6-55 Specimen slightly ictericPROTHROMBIN [id number] 16:17:00 Test Item Value Reference Range Comments PROTIME (BEAKER) (test tcwe=047) 17.3 seconds 11.7-14.7 INR (BEAKER) (test gyrn=927) 1.4 <=5.9 RECOMMENDED COUMADIN/WARFARIN INR THERAPY RANGESSTANDARD DOSE: 2.0 - 3.0 Includes: PROPHYLAXIS forvenous thrombosis, systemic embolization; TREATMENT for venous thrombosis and/or pulmonary embolus.HIGH RISK: Target INR is 2.5-3.5 for patients with mechanical heart valves.CBC W/PLT COUNT & AUTO [id number] 16:17:00 Test Item Value Reference Range Comments WHITE BLOOD CELL COUNT (BEAKER) (test mteb=136) 5.6 K/ L 3.5-10.5 RED BLOOD CELL COUNT (BEAKER) (test exyj=353) 3.83 M/ L 3.93-5.22 HEMOGLOBIN (BEAKER) (test ctji=213) 12.0 GM/DL 11.2-15.7 HEMATOCRIT (BEAKER) (test uxag=316) 36.8 % 34.1-44.9 MEAN CORPUSCULAR VOLUME (BEAKER) (test nrxn=007) 96.1 fL 79.4-94.8 MEAN CORPUSCULAR HEMOGLOBIN (BEAKER) (test 31.3 pg 25.6-32.2 ywty=904) MEAN CORPUSCULAR HEMOGLOBIN CONC (BEAKER) (test 32.6 GM/DL 32.2-35.5 hccc=762) RED CELL DISTRIBUTION WIDTH (BEAKER) (test 15.9 % 11.7-14.4 dewz=703) PLATELET COUNT (BEAKER) (test liia=227) 83 K/CU MM 150-450 MEAN PLATELET VOLUME (BEAKER) (test jnfh=661) 11.1 fL 9.4-12.3 NUCLEATED RED BLOOD CELLS (BEAKER) (test 0 /100 WBC 0-0 diud=358) NEUTROPHILS RELATIVE PERCENT (BEAKER) (test 54 % apay=768) LYMPHOCYTES RELATIVE PERCENT (BEAKER) (test 36 % uqkt=127) MONOCYTES RELATIVE PERCENT (BEAKER) (test 8 % pumn=461) EOSINOPHILS RELATIVE PERCENT (BEAKER) (test 2 % cvwi=151) BASOPHILS RELATIVE PERCENT (BEAKER) (test 1 % vgqr=100) NEUTROPHILS ABSOLUTE COUNT (BEAKER) (test 3.01 K/ L 1.56-6.13 eykc=821) LYMPHOCYTES ABSOLUTE COUNT (BEAKER) (test 1.98 K/ L 1.18-3.74 lqcj=641) MONOCYTES ABSOLUTE COUNT (BEAKER) (test ffbi=684) 0.44 K/ L 0.24-0.36 EOSINOPHILS ABSOLUTE COUNT (BEAKER) (test 0.10 K/ L 0.04-0.36 laep=387) BASOPHILS ABSOLUTE COUNT (BEAKER) (test cflf=240) 0.04 K/ L 0.01-0.08 IMMATURE GRANULOCYTES-RELATIVE PERCENT (BEAKER) 0 % 0-1 (test lmcs=3773) ALPHA FETOPROTEIN (AFP), TUMOR [id number] 16:14:00 Test Item Value Reference Range Comments ALPHA-FETOPROTEIN (BEAKER) (test ergz=3045) 5.7 ng/mL <10.0 Effective 07/17/2014: Reference Range ChangeNew: <10.0 Previous: 0.0- [id number] 15:57:00 Test Item Value Reference Range Comments MAGNESIUM (BEAKER) (test evnw=282) 1.9 mg/dL 1.6-2.6 BASIC METABOLIC [id number] 15:57:00 Test Item Value Reference Range Comments SODIUM (BEAKER) (test 139 meq/L 136-145 gwqi=244) POTASSIUM (BEAKER) (test 4.5 meq/L 3.5-5.1 ezlc=793) CHLORIDE (BEAKER) (test 105 meq/L 98-107 oxlm=550) CO2 (BEAKER) (test 25 meq/L 22-29 helx=980) BLOOD UREA NITROGEN 15 mg/dL 7-21 (BEAKER) (test icuy=539) CREATININE (BEAKER) (test 0.95 mg/dL 0.57-1.25 ogqq=146) GLUCOSE RANDOM (BEAKER) 86 mg/dL 70-105 (test ycmm=583) CALCIUM (BEAKER) (test 9.4 mg/dL 8.4-10.2 ooof=641) EGFR (BEAKER) (test 56 mL/min/1.73 sq m ESTIMATED GFR IS NOT sgmt=7524) ACCURATE CREATININE CLEARANCE IN PREDICTING GLOMERULAR FILTRATION RATE. ESTIMATED GFR IS NOT APPLICABLE FOR DIALYSIS PATIENTS. Specimen slightly ictericHEPATIC FUNCTION [id number] 15:57:00 Test Item Value Reference Range Comments TOTAL PROTEIN (BEAKER) (test rowk=591) 7.6 gm/dL 6.0-8.3 ALBUMIN (BEAKER) (test dibs=0342) 3.2 g/dL 3.5-5.0 BILIRUBIN TOTAL (BEAKER) (test wrsq=475) 1.8 mg/dL 0.2-1.2 BILIRUBIN DIRECT (BEAKER) (test khij=269) 0.8 mg/dL 0.1-0.5 ALKALINE PHOSPHATASE (BEAKER) (test jxyz=796) 112 U/L 40-150 AST (SGOT) (BEAKER) (test mxly=444) 33 U/L 5-34 ALT (SGPT) (BEAKER) (test vccb=436) 17 U/L 6-55 Specimen slightly ictericPROTHROMBIN [id number] 15:56:00 Test Item Value Reference Range Comments PROTIME (BEAKER) (test ywbd=763) 16.7 seconds 11.7-14.7 INR (BEAKER) (test iogx=671) 1.4 <=5.9 RECOMMENDED COUMADIN/WARFARIN INR THERAPY RANGESSTANDARD DOSE: 2.0 - 3.0 Includes: PROPHYLAXIS forvenous thrombosis, systemic embolization; TREATMENT for venous thrombosis and/or pulmonary embolus.HIGH RISK: Target INR is 2.5-3.5 for patients with mechanical heart valves.CBC W/PLT COUNT & AUTO [id number] 15:56:00 Test Item Value Reference Range Comments WHITE BLOOD CELL COUNT (BEAKER) (test wfia=010) 5.3 K/ L 4.0-10.0 RED BLOOD CELL COUNT (BEAKER) (test iaxy=480) 4.21 M/ L 4.00-5.00 HEMOGLOBIN (BEAKER) (test csps=531) 14.1 GM/DL 12.0-15.0 HEMATOCRIT (BEAKER) (test rqoc=510) 41.7 % 36.0-45.0 MEAN CORPUSCULAR VOLUME (BEAKER) (test sotn=777) 99.1 fL 82.0-99.0 MEAN CORPUSCULAR HEMOGLOBIN (BEAKER) (test 33.4 pg 27.0-33.0 tnev=885) MEAN CORPUSCULAR HEMOGLOBIN CONC (BEAKER) (test 33.7 GM/DL 32.0-36.0 nryn=067) RED CELL DISTRIBUTION WIDTH (BEAKER) (test 13.2 % 10.3-14.2 qtog=935) PLATELET COUNT (BEAKER) (test skiz=495) 77 K/CU MM 150-430 MEAN PLATELET VOLUME (BEAKER) (test qnop=302) 8.4 fL 6.5-10.5 NUCLEATED RED BLOOD CELLS (BEAKER) (test 0 /100 WBC 0-0 xkji=052) NEUTROPHILS RELATIVE PERCENT (BEAKER) (test 54 % fssw=134) LYMPHOCYTES RELATIVE PERCENT (BEAKER) (test 33 % wrur=667) MONOCYTES RELATIVE PERCENT (BEAKER) (test 10 % zryg=871) EOSINOPHILS RELATIVE PERCENT (BEAKER) (test 3 % wqpr=048) BASOPHILS RELATIVE PERCENT (BEAKER) (test 0 % hstr=554) NEUTROPHILS ABSOLUTE COUNT (BEAKER) (test 2.86 K/ L 1.80-8.00 oudr=690) LYMPHOCYTES ABSOLUTE COUNT (BEAKER) (test 1.77 K/ L 1.48-4.50 kicl=111) MONOCYTES ABSOLUTE COUNT (BEAKER) (test iqxz=543) 0.56 K/ L 0.00-1.30 EOSINOPHILS ABSOLUTE COUNT (BEAKER) (test 0.13 K/ L 0.00-0.50 goir=735) BASOPHILS ABSOLUTE COUNT (BEAKER) (test rueg=801) 0.02 K/ L 0.00-0.20 0.39PJRH-[id number] 11:05:00 Test Item Value Reference Range Comments POC-CREATININE (BEAKER) 0.9 mg/dL 0.6-1.3 TESTED AT [facility] [address] [facility] (test xlqt=5131) [facility] [address] POC-EGFR (BEAKER) (test 59 mL/min/1.73M2 kyom=5936)
== END 2019-06-16 12:45 | disposition home or self-care (01) ==
LOC: DS 08:53
PROVIDERS: ATTEND Internal Medicine Gastroenterology
DX: R18.8 Other ascites (principal); K72.90 Hepatic failure, unspecified without coma; K76.0 Fatty (change of) liver, not elsewhere classified; K74.60 Unspecified cirrhosis of liver; R60.0 Localized edema; K30 Functional dyspepsia; L25.9 Unspecified contact dermatitis, unspecified cause
CPT/HCPCS: 85025; 36415; 80053; 96365; 49083; 96366; P9047

== ENCOUNTER → 2019-06-23 | Day surgery (SDC) | payer OTHER ==
[2019-06-23 08:58] VITALS: BMI 22.3
[2019-06-23 10:56] LABS: Appearance CLEAR (CLEAR); Body Fluid Source PERITONEAL; Color of fluid Yellow (COLORLESS)
--- NOTE | 2019-06-23 11:32 | RAD REPORT ---
EXAM DESCRIPTION: US - Paracentesis Proc Guidance - 06/23/2019 11:06 am CLINICAL HISTORY: ASCITES Ascites COMPARISON: Paracentesis Proc Guidance dated 06/16/2019 FINDINGS: Informed consent was obtained and time-out was performed. Patient's abdomen was prepped and draped in the usual sterile fashion. 1% lidocaine was used for loca l anesthetic purposes. A small skin incision was made in the right lower quadrant. A paracentesis catheter was guided into t he peroneal cavity under sonographic guidance. A small amount of fluid was sent for requested lab studies. A large volume paracentesis was performed . The patient tolerated the procedure well. Patient was administered IV albumin per protocol following the procedure. IMPRESSION: Successful ultrasound-guided paracentesis.
[2019-06-23 12:05] VITALS: BP 118/59; TEMP 97.7; O2SAT 96
[2019-06-23 12:06] LABS: Body Fluid WBC 191 /mm^3
== END ==
LOC: DS 08:24
PROVIDERS: ATTEND Internal Medicine Gastroenterology
DX: R18.8 Other ascites (principal); K74.60 Unspecified cirrhosis of liver; K72.90 Hepatic failure, unspecified without coma; E88.09 Other disorders of plasma-protein metabolism, not elsewhere classified; D69.6 Thrombocytopenia, unspecified; L25.9 Unspecified contact dermatitis, unspecified cause; K76.0 Fatty (change of) liver, not elsewhere classified; K30 Functional dyspepsia; R60.0 Localized edema
CPT/HCPCS: 36415; 89050; 96365; 49083; P9047

== ENCOUNTER → 2019-07-07 | Day surgery (SDC) | payer OTHER ==
[2019-07-07 09:10] VITALS: TEMP 97.6; BMI 21.8
--- NOTE | 2019-07-07 11:19 | RAD REPORT ---
EXAM DESCRIPTION: US - Paracentesis Proc Guidance - 07/07/2019 10:33 am CLINICAL HISTORY: Ascites COMPARISON: Numerous prior paracentesis procedures. TECHNIQUE: The patient presents for ultrasound-guided paracentesis. The procedure, risks and altern atives were discussed with the patient in detail. Oral and written consent were obtained. Time out p rocedure was performed. The patient had no contraindicated allergy or medication history. PT, INR an d platelet values were within acceptable range. Preliminary sonographic evaluation identified right lower quadrant access site. The skin and deeper tissues were anesthetized with 1 percent lidocaine. Under direct sonographic visualization, a parace ntesis catheter was advanced into the peritoneal cavity. Approximately 8 mL of ascites retained for r equested laboratory studies. Large volume drainage was initiated. Approximately 4 liters of ascites r emoved. At the conclusion of the procedure, catheter was withdrawn and a bandage placed at the puncture site. Postprocedure care and precaution instructions were given to the patient. [facility] same day surgical area for albumin infusion per referring physician protocol. IMPRESSION: Ultrasound-guided paracentesis as detailed.
[2019-07-07 11:20] VITALS: BP 127/66; O2SAT 98
[2019-07-07 13:48] LABS: Appearance CLEAR (CLEAR); Body Fluid Source PERITONEAL; Body Fluid WBC 151 /mm^3; Color of fluid Yellow (COLORLESS)
--- OUTSIDE RECORDS SUMMARY | 2019-07-10 04:57 | XMS REPORT ---
:1930 [facility] Address [address] [place] [address] [address] [place] [address] Care Team Providers Name Role Phone MARY [...] Value Reference Range Comments ALPHA-FETOPROTEIN (BEAKER) (test qupq=3377) 2.9 ng/mL <10.0 HEPATIC FUNCTION [id number] 16:38:00 Test Item Value Reference Range Comments TOTAL PROTEIN (BEAKER) (test eftx=743) 9.0 gm/dL 6.0-8.3 ALBUMIN (BEAKER) (test rhxj=8298) 2.8 g/dL 3.5-5.0 BILIRUBIN TOTAL (BEAKER) (test hyzn=939) 1.2 mg/dL 0.2-1.2 BILIRUBIN DIRECT (BEAKER) (test uwor=100) 0.7 mg/dL 0.1-0.5 ALKALINE PHOSPHATASE (BEAKER) (test drkk=779) 111 U/L 40-150 AST (SGOT) (BEAKER) (test pvvc=305) 31 U/L 5-34 ALT (SGPT) (BEAKER) (test rtee=562) 12 U/L 6-55 BASIC METABOLIC [id number] 16:38:00 Test Item Value Reference Range Comments SODIUM (BEAKER) (test 133 meq/L 136-145 bgom=984) POTASSIUM (BEAKER) (test 4.0 meq/L 3.5-5.1 kgue=611) CHLORIDE (BEAKER) (test 100 meq/L 98-107 jhuo=143) CO2 (BEAKER) (test 27 meq/L 22-29 jqje=220) BLOOD UREA NITROGEN 20 mg/dL 7-21 (BEAKER) (test bbvf=911) CREATININE (BEAKER) (test 1.07 mg/dL 0.57-1.25 fyqa=591) GLUCOSE RANDOM (BEAKER) 71 mg/dL 70-105 (test rptj=711) CALCIUM (BEAKER) (test 9.4 mg/dL 8.4-10.2 ajtc=518) EGFR (BEAKER) (test 49 mL/min/1.73 sq m ESTIMATED GFR IS NOT cblc=9864) ACCURATE CREATININE CLEARANCE IN PREDICTING GLOMERULAR FILTRATION RATE. ESTIMATED GFR IS NOT APPLICABLE FOR DIALYSIS PATIENTS. [id number] 16:33:00 Test Item Value Reference Range Comments AMMONIA (BEAKER) (test dtuj=101) 40 mol/L 18-72 PROTHROMBIN [id number] 16:29:00 Test Item Value Reference Range Comments PROTIME (BEAKER) (test wgor=433) 16.5 seconds 11.7-14.7 INR (BEAKER) (test rdqq=422) 1.3 <=5.9 RECOMMENDED COUMADIN/WARFARIN INR THERAPY RANGESSTANDARD DOSE: 2.0 - 3.0 Includes: PROPHYLAXIS forvenous thrombosis, systemic embolization; TREATMENT for venous thrombosis and/or pulmonary embolus.HIGH RISK: Target INR is 2.5-3.5 for patients with mechanical heart valves.CBC W/PLT COUNT & AUTO [id number] 16:22:00 Test Item Value Reference Range Comments WHITE BLOOD CELL COUNT (BEAKER) (test kyyh=502) 5.0 K/ L 3.5-10.5 RED BLOOD CELL COUNT (BEAKER) (test mbes=952) 3.39 M/ L 3.93-5.22 HEMOGLOBIN (BEAKER) (test yfql=434) 10.7 GM/DL 11.2-15.7 HEMATOCRIT (BEAKER) (test hobu=049) 33.1 % 34.1-44.9 MEAN CORPUSCULAR VOLUME (BEAKER) (test fmqi=797) 97.6 fL 79.4-94.8 MEAN CORPUSCULAR HEMOGLOBIN (BEAKER) (test 31.6 pg 25.6-32.2 lynq=276) MEAN CORPUSCULAR HEMOGLOBIN CONC (BEAKER) (test 32.3 GM/DL 32.2-35.5 jdlm=465) RED CELL DISTRIBUTION WIDTH (BEAKER) (test 15.0 % 11.7-14.4 mvdz=012) PLATELET COUNT (BEAKER) (test gsxv=941) 98 K/CU MM 150-450 MEAN PLATELET VOLUME (BEAKER) (test kitv=433) 10.0 fL 9.4-12.3 NUCLEATED RED BLOOD CELLS (BEAKER) (test 0 /100 WBC 0-0 vfge=905) NEUTROPHILS RELATIVE PERCENT (BEAKER) (test 71 % zlwz=637) LYMPHOCYTES RELATIVE PERCENT (BEAKER) (test 14 % zjhp=528) MONOCYTES RELATIVE PERCENT (BEAKER) (test 12 % wgjo=490) EOSINOPHILS RELATIVE PERCENT (BEAKER) (test 2 % nixg=727) BASOPHILS RELATIVE PERCENT (BEAKER) (test 1 % ktbj=889) NEUTROPHILS ABSOLUTE COUNT (BEAKER) (test 3.51 K/ L 1.56-6.13 vrrf=818) LYMPHOCYTES ABSOLUTE COUNT (BEAKER) (test 0.69 K/ L 1.18-3.74 hege=517) MONOCYTES ABSOLUTE COUNT (BEAKER) (test qfac=063) 0.62 K/ L 0.24-0.36 EOSINOPHILS ABSOLUTE COUNT (BEAKER) (test 0.10 K/ L 0.04-0.36 wyme=785) BASOPHILS ABSOLUTE COUNT (BEAKER) (test glqv=212) 0.04 K/ L 0.01-0.08 IMMATURE GRANULOCYTES-RELATIVE PERCENT (BEAKER) 0 % 0-1 (test ydvy=6576) ALPHA FETOPROTEIN (AFP), TUMOR [id number] 17:15:00 Test Item Value Reference Range Comments ALPHA-FETOPROTEIN (BEAKER) (test hlpw=8954) 3.3 ng/mL <10.0 [id number] 16:34:00 Test Item Value Reference Range Comments MAGNESIUM (BEAKER) (test jrvq=188) 1.8 mg/dL 1.6-2.6 BASIC METABOLIC [id number] 16:34:00 Test Item Value Reference Range Comments SODIUM (BEAKER) (test 133 meq/L 136-145 fdoh=798) POTASSIUM (BEAKER) (test 3.9 meq/L 3.5-5.1 jjan=762) CHLORIDE (BEAKER) (test 99 meq/L 98-107 dwle=207) CO2 (BEAKER) (test 25 meq/L 22-29 yigh=450) BLOOD UREA NITROGEN 12 mg/dL 7-21 (BEAKER) (test lmrm=126) CREATININE (BEAKER) (test 0.97 mg/dL 0.57-1.25 dxpc=416) GLUCOSE RANDOM (BEAKER) 93 mg/dL 70-105 (test ombf=463) CALCIUM (BEAKER) (test 9.0 mg/dL 8.4-10.2 crlp=309) EGFR (BEAKER) (test 54 mL/min/1.73 sq m ESTIMATED GFR IS NOT abvl=5443) ACCURATE CREATININE CLEARANCE IN PREDICTING GLOMERULAR FILTRATION RATE. ESTIMATED GFR IS NOT APPLICABLE FOR DIALYSIS PATIENTS. Specimen slightly ictericHEPATIC FUNCTION [id number] 16:34:00 Test Item Value Reference Range Comments TOTAL PROTEIN (BEAKER) (test hbni=829) 8.0 gm/dL 6.0-8.3 ALBUMIN (BEAKER) (test nnbs=9530) 3.0 g/dL 3.5-5.0 BILIRUBIN TOTAL (BEAKER) (test fcaf=363) 1.9 mg/dL 0.2-1.2 BILIRUBIN DIRECT (BEAKER) (test xqzn=937) 0.8 mg/dL 0.1-0.5 ALKALINE PHOSPHATASE (BEAKER) (test vgzz=561) 122 U/L 40-150 AST (SGOT) (BEAKER) (test iyqo=065) 30 U/L 5-34 ALT (SGPT) (BEAKER) (test dbsq=687) 12 U/L 6-55 Specimen slightly ictericPROTHROMBIN [id number] 16:17:00 Test Item Value Reference Range Comments PROTIME (BEAKER) (test cbzb=162) 17.3 seconds 11.7-14.7 INR (BEAKER) (test roew=834) 1.4 <=5.9 RECOMMENDED COUMADIN/WARFARIN INR THERAPY RANGESSTANDARD DOSE: 2.0 - 3.0 Includes: PROPHYLAXIS forvenous thrombosis, systemic embolization; TREATMENT for venous thrombosis and/or pulmonary embolus.HIGH RISK: Target INR is 2.5-3.5 for patients with mechanical heart valves.CBC W/PLT COUNT & AUTO [id number] 16:17:00 Test Item Value Reference Range Comments WHITE BLOOD CELL COUNT (BEAKER) (test jlfu=018) 5.6 K/ L 3.5-10.5 RED BLOOD CELL COUNT (BEAKER) (test ejbu=151) 3.83 M/ L 3.93-5.22 HEMOGLOBIN (BEAKER) (test auii=209) 12.0 GM/DL 11.2-15.7 HEMATOCRIT (BEAKER) (test pdhe=786) 36.8 % 34.1-44.9 MEAN CORPUSCULAR VOLUME (BEAKER) (test wyyx=460) 96.1 fL 79.4-94.8 MEAN CORPUSCULAR HEMOGLOBIN (BEAKER) (test 31.3 pg 25.6-32.2 qohm=004) MEAN CORPUSCULAR HEMOGLOBIN CONC (BEAKER) (test 32.6 GM/DL 32.2-35.5 ufkm=656) RED CELL DISTRIBUTION WIDTH (BEAKER) (test 15.9 % 11.7-14.4 ndxa=845) PLATELET COUNT (BEAKER) (test sglm=520) 83 K/CU MM 150-450 MEAN PLATELET VOLUME (BEAKER) (test thgy=651) 11.1 fL 9.4-12.3 NUCLEATED RED BLOOD CELLS (BEAKER) (test 0 /100 WBC 0-0 lqtz=237) NEUTROPHILS RELATIVE PERCENT (BEAKER) (test 54 % hfjp=564) LYMPHOCYTES RELATIVE PERCENT (BEAKER) (test 36 % ejlw=688) MONOCYTES RELATIVE PERCENT (BEAKER) (test 8 % lwqj=441) EOSINOPHILS RELATIVE PERCENT (BEAKER) (test 2 % yaaf=041) BASOPHILS RELATIVE PERCENT (BEAKER) (test 1 % opdt=913) NEUTROPHILS ABSOLUTE COUNT (BEAKER) (test 3.01 K/ L 1.56-6.13 klyg=031) LYMPHOCYTES ABSOLUTE COUNT (BEAKER) (test 1.98 K/ L 1.18-3.74 ehdg=951) MONOCYTES ABSOLUTE COUNT (BEAKER) (test dsmh=714) 0.44 K/ L 0.24-0.36 EOSINOPHILS ABSOLUTE COUNT (BEAKER) (test 0.10 K/ L 0.04-0.36 knkz=034) BASOPHILS ABSOLUTE COUNT (BEAKER) (test litd=965) 0.04 K/ L 0.01-0.08 IMMATURE GRANULOCYTES-RELATIVE PERCENT (BEAKER) 0 % 0-1 (test qezq=7903) ALPHA FETOPROTEIN (AFP), TUMOR [id number] 16:14:00 Test Item Value Reference Range Comments ALPHA-FETOPROTEIN (BEAKER) (test qldy=5944) 5.7 ng/mL <10.0 Effective 07/17/2014: Reference Range ChangeNew: <10.0 Previous: 0.0- [id number] 15:57:00 Test Item Value Reference Range Comments MAGNESIUM (BEAKER) (test eoqc=717) 1.9 mg/dL 1.6-2.6 BASIC METABOLIC [id number] 15:57:00 Test Item Value Reference Range Comments SODIUM (BEAKER) (test 139 meq/L 136-145 bgcg=141) POTASSIUM (BEAKER) (test 4.5 meq/L 3.5-5.1 wuya=513) CHLORIDE (BEAKER) (test 105 meq/L 98-107 btft=285) CO2 (BEAKER) (test 25 meq/L 22-29 fjcw=810) BLOOD UREA NITROGEN 15 mg/dL 7-21 (BEAKER) (test ynyd=218) CREATININE (BEAKER) (test 0.95 mg/dL 0.57-1.25 ckqj=555) GLUCOSE RANDOM (BEAKER) 86 mg/dL 70-105 (test bmgy=419) CALCIUM (BEAKER) (test 9.4 mg/dL 8.4-10.2 ltrt=344) EGFR (BEAKER) (test 56 mL/min/1.73 sq m ESTIMATED GFR IS NOT igbg=4348) ACCURATE CREATININE CLEARANCE IN PREDICTING GLOMERULAR FILTRATION RATE. ESTIMATED GFR IS NOT APPLICABLE FOR DIALYSIS PATIENTS. Specimen slightly ictericHEPATIC FUNCTION [id number] 15:57:00 Test Item Value Reference Range Comments TOTAL PROTEIN (BEAKER) (test qipu=292) 7.6 gm/dL 6.0-8.3 ALBUMIN (BEAKER) (test iisq=1313) 3.2 g/dL 3.5-5.0 BILIRUBIN TOTAL (BEAKER) (test lapt=063) 1.8 mg/dL 0.2-1.2 BILIRUBIN DIRECT (BEAKER) (test tvrs=797) 0.8 mg/dL 0.1-0.5 ALKALINE PHOSPHATASE (BEAKER) (test jhfi=681) 112 U/L 40-150 AST (SGOT) (BEAKER) (test ksrf=678) 33 U/L 5-34 ALT (SGPT) (BEAKER) (test wmkm=507) 17 U/L 6-55 Specimen slightly ictericPROTHROMBIN [id number] 15:56:00 Test Item Value Reference Range Comments PROTIME (BEAKER) (test axlr=379) 16.7 seconds 11.7-14.7 INR (BEAKER) (test chfv=036) 1.4 <=5.9 RECOMMENDED COUMADIN/WARFARIN INR THERAPY RANGESSTANDARD DOSE: 2.0 - 3.0 Includes: PROPHYLAXIS forvenous thrombosis, systemic embolization; TREATMENT for venous thrombosis and/or pulmonary embolus.HIGH RISK: Target INR is 2.5-3.5 for patients with mechanical heart valves.CBC W/PLT COUNT & AUTO [id number] 15:56:00 Test Item Value Reference Range Comments WHITE BLOOD CELL COUNT (BEAKER) (test qfgw=236) 5.3 K/ L 4.0-10.0 RED BLOOD CELL COUNT (BEAKER) (test qzhz=854) 4.21 M/ L 4.00-5.00 HEMOGLOBIN (BEAKER) (test hihc=463) 14.1 GM/DL 12.0-15.0 HEMATOCRIT (BEAKER) (test tkuj=477) 41.7 % 36.0-45.0 MEAN CORPUSCULAR VOLUME (BEAKER) (test bsvx=018) 99.1 fL 82.0-99.0 MEAN CORPUSCULAR HEMOGLOBIN (BEAKER) (test 33.4 pg 27.0-33.0 njfi=686) MEAN CORPUSCULAR HEMOGLOBIN CONC (BEAKER) (test 33.7 GM/DL 32.0-36.0 bnaa=104) RED CELL DISTRIBUTION WIDTH (BEAKER) (test 13.2 % 10.3-14.2 eekb=367) PLATELET COUNT (BEAKER) (test xcot=831) 77 K/CU MM 150-430 MEAN PLATELET VOLUME (BEAKER) (test buwj=386) 8.4 fL 6.5-10.5 NUCLEATED RED BLOOD CELLS (BEAKER) (test 0 /100 WBC 0-0 lqzn=474) NEUTROPHILS RELATIVE PERCENT (BEAKER) (test 54 % vckj=407) LYMPHOCYTES RELATIVE PERCENT (BEAKER) (test 33 % gjfi=806) MONOCYTES RELATIVE PERCENT (BEAKER) (test 10 % baaj=393) EOSINOPHILS RELATIVE PERCENT (BEAKER) (test 3 % wodj=703) BASOPHILS RELATIVE PERCENT (BEAKER) (test 0 % tdop=357) NEUTROPHILS ABSOLUTE COUNT (BEAKER) (test 2.86 K/ L 1.80-8.00 ruti=880) LYMPHOCYTES ABSOLUTE COUNT (BEAKER) (test 1.77 K/ L 1.48-4.50 jedb=671) MONOCYTES ABSOLUTE COUNT (BEAKER) (test kzcz=220) 0.56 K/ L 0.00-1.30 EOSINOPHILS ABSOLUTE COUNT (BEAKER) (test 0.13 K/ L 0.00-0.50 zeib=979) BASOPHILS ABSOLUTE COUNT (BEAKER) (test tjln=304) 0.02 K/ L 0.00-0.20 0.67TKIT-[id number] 11:05:00 Test Item Value Reference Range Comments POC-CREATININE (BEAKER) 0.9 mg/dL 0.6-1.3 TESTED AT [facility] [address] [facility] (test excu=4715) [facility] [address] POC-EGFR (BEAKER) (test 59 mL/min/1.73M2 knhj=8231)
== END ==
LOC: DS 08:35
PROVIDERS: ATTEND Internal Medicine Gastroenterology
DX: R18.8 Other ascites (principal); K72.90 Hepatic failure, unspecified without coma; K76.0 Fatty (change of) liver, not elsewhere classified; K74.60 Unspecified cirrhosis of liver; R60.0 Localized edema; K30 Functional dyspepsia; L25.9 Unspecified contact dermatitis, unspecified cause
CPT/HCPCS: 36415; 89050; 96365; 49083; P9047

== ENCOUNTER → 2019-07-14 | Day surgery (SDC) | payer OTHER ==
--- OUTSIDE RECORDS SUMMARY | 2019-07-14 08:56 | XMS REPORT ---
:1930 [facility] Address [address] [place] [address] [address] [place] [address] Care Team Providers Name Role Phone MARY [...] Value Reference Range Comments ALPHA-FETOPROTEIN (BEAKER) (test ufby=3907) 2.9 ng/mL <10.0 HEPATIC FUNCTION [id number] 16:38:00 Test Item Value Reference Range Comments TOTAL PROTEIN (BEAKER) (test vska=462) 9.0 gm/dL 6.0-8.3 ALBUMIN (BEAKER) (test zpcp=4571) 2.8 g/dL 3.5-5.0 BILIRUBIN TOTAL (BEAKER) (test ocsi=725) 1.2 mg/dL 0.2-1.2 BILIRUBIN DIRECT (BEAKER) (test gmbm=680) 0.7 mg/dL 0.1-0.5 ALKALINE PHOSPHATASE (BEAKER) (test cgcn=592) 111 U/L 40-150 AST (SGOT) (BEAKER) (test ynio=427) 31 U/L 5-34 ALT (SGPT) (BEAKER) (test kzid=982) 12 U/L 6-55 BASIC METABOLIC [id number] 16:38:00 Test Item Value Reference Range Comments SODIUM (BEAKER) (test 133 meq/L 136-145 capf=415) POTASSIUM (BEAKER) (test 4.0 meq/L 3.5-5.1 zzqm=521) CHLORIDE (BEAKER) (test 100 meq/L 98-107 bwfj=372) CO2 (BEAKER) (test 27 meq/L 22-29 ahgw=583) BLOOD UREA NITROGEN 20 mg/dL 7-21 (BEAKER) (test qmxs=434) CREATININE (BEAKER) (test 1.07 mg/dL 0.57-1.25 wzfn=296) GLUCOSE RANDOM (BEAKER) 71 mg/dL 70-105 (test dyyq=416) CALCIUM (BEAKER) (test 9.4 mg/dL 8.4-10.2 tmtf=707) EGFR (BEAKER) (test 49 mL/min/1.73 sq m ESTIMATED GFR IS NOT xktr=4165) ACCURATE CREATININE CLEARANCE IN PREDICTING GLOMERULAR FILTRATION RATE. ESTIMATED GFR IS NOT APPLICABLE FOR DIALYSIS PATIENTS. [id number] 16:33:00 Test Item Value Reference Range Comments AMMONIA (BEAKER) (test rven=630) 40 mol/L 18-72 PROTHROMBIN [id number] 16:29:00 Test Item Value Reference Range Comments PROTIME (BEAKER) (test ogyf=289) 16.5 seconds 11.7-14.7 INR (BEAKER) (test avfn=420) 1.3 <=5.9 RECOMMENDED COUMADIN/WARFARIN INR THERAPY RANGESSTANDARD DOSE: 2.0 - 3.0 Includes: PROPHYLAXIS forvenous thrombosis, systemic embolization; TREATMENT for venous thrombosis and/or pulmonary embolus.HIGH RISK: Target INR is 2.5-3.5 for patients with mechanical heart valves.CBC W/PLT COUNT & AUTO [id number] 16:22:00 Test Item Value Reference Range Comments WHITE BLOOD CELL COUNT (BEAKER) (test efhb=707) 5.0 K/ L 3.5-10.5 RED BLOOD CELL COUNT (BEAKER) (test ekka=581) 3.39 M/ L 3.93-5.22 HEMOGLOBIN (BEAKER) (test hfgm=831) 10.7 GM/DL 11.2-15.7 HEMATOCRIT (BEAKER) (test ouyd=051) 33.1 % 34.1-44.9 MEAN CORPUSCULAR VOLUME (BEAKER) (test qfbo=845) 97.6 fL 79.4-94.8 MEAN CORPUSCULAR HEMOGLOBIN (BEAKER) (test 31.6 pg 25.6-32.2 hbxh=988) MEAN CORPUSCULAR HEMOGLOBIN CONC (BEAKER) (test 32.3 GM/DL 32.2-35.5 idnf=548) RED CELL DISTRIBUTION WIDTH (BEAKER) (test 15.0 % 11.7-14.4 owyj=392) PLATELET COUNT (BEAKER) (test yofb=856) 98 K/CU MM 150-450 MEAN PLATELET VOLUME (BEAKER) (test xcwm=573) 10.0 fL 9.4-12.3 NUCLEATED RED BLOOD CELLS (BEAKER) (test 0 /100 WBC 0-0 rgqj=588) NEUTROPHILS RELATIVE PERCENT (BEAKER) (test 71 % bflg=552) LYMPHOCYTES RELATIVE PERCENT (BEAKER) (test 14 % soxu=193) MONOCYTES RELATIVE PERCENT (BEAKER) (test 12 % wxlp=645) EOSINOPHILS RELATIVE PERCENT (BEAKER) (test 2 % tiru=746) BASOPHILS RELATIVE PERCENT (BEAKER) (test 1 % sgri=709) NEUTROPHILS ABSOLUTE COUNT (BEAKER) (test 3.51 K/ L 1.56-6.13 ccmg=500) LYMPHOCYTES ABSOLUTE COUNT (BEAKER) (test 0.69 K/ L 1.18-3.74 spvh=132) MONOCYTES ABSOLUTE COUNT (BEAKER) (test vlxb=413) 0.62 K/ L 0.24-0.36 EOSINOPHILS ABSOLUTE COUNT (BEAKER) (test 0.10 K/ L 0.04-0.36 koou=371) BASOPHILS ABSOLUTE COUNT (BEAKER) (test rcqm=352) 0.04 K/ L 0.01-0.08 IMMATURE GRANULOCYTES-RELATIVE PERCENT (BEAKER) 0 % 0-1 (test sxvi=5228) ALPHA FETOPROTEIN (AFP), TUMOR [id number] 17:15:00 Test Item Value Reference Range Comments ALPHA-FETOPROTEIN (BEAKER) (test gqct=4223) 3.3 ng/mL <10.0 [id number] 16:34:00 Test Item Value Reference Range Comments MAGNESIUM (BEAKER) (test ocev=611) 1.8 mg/dL 1.6-2.6 BASIC METABOLIC [id number] 16:34:00 Test Item Value Reference Range Comments SODIUM (BEAKER) (test 133 meq/L 136-145 rrle=160) POTASSIUM (BEAKER) (test 3.9 meq/L 3.5-5.1 ocex=586) CHLORIDE (BEAKER) (test 99 meq/L 98-107 fjje=646) CO2 (BEAKER) (test 25 meq/L 22-29 izzk=774) BLOOD UREA NITROGEN 12 mg/dL 7-21 (BEAKER) (test ozvu=551) CREATININE (BEAKER) (test 0.97 mg/dL 0.57-1.25 drtp=805) GLUCOSE RANDOM (BEAKER) 93 mg/dL 70-105 (test eriz=645) CALCIUM (BEAKER) (test 9.0 mg/dL 8.4-10.2 vjsj=155) EGFR (BEAKER) (test 54 mL/min/1.73 sq m ESTIMATED GFR IS NOT poms=3996) ACCURATE CREATININE CLEARANCE IN PREDICTING GLOMERULAR FILTRATION RATE. ESTIMATED GFR IS NOT APPLICABLE FOR DIALYSIS PATIENTS. Specimen slightly ictericHEPATIC FUNCTION [id number] 16:34:00 Test Item Value Reference Range Comments TOTAL PROTEIN (BEAKER) (test snvv=741) 8.0 gm/dL 6.0-8.3 ALBUMIN (BEAKER) (test plsg=6815) 3.0 g/dL 3.5-5.0 BILIRUBIN TOTAL (BEAKER) (test fxsa=397) 1.9 mg/dL 0.2-1.2 BILIRUBIN DIRECT (BEAKER) (test bilm=323) 0.8 mg/dL 0.1-0.5 ALKALINE PHOSPHATASE (BEAKER) (test fils=872) 122 U/L 40-150 AST (SGOT) (BEAKER) (test byet=738) 30 U/L 5-34 ALT (SGPT) (BEAKER) (test vjhp=608) 12 U/L 6-55 Specimen slightly ictericPROTHROMBIN [id number] 16:17:00 Test Item Value Reference Range Comments PROTIME (BEAKER) (test soft=452) 17.3 seconds 11.7-14.7 INR (BEAKER) (test gxpa=929) 1.4 <=5.9 RECOMMENDED COUMADIN/WARFARIN INR THERAPY RANGESSTANDARD DOSE: 2.0 - 3.0 Includes: PROPHYLAXIS forvenous thrombosis, systemic embolization; TREATMENT for venous thrombosis and/or pulmonary embolus.HIGH RISK: Target INR is 2.5-3.5 for patients with mechanical heart valves.CBC W/PLT COUNT & AUTO [id number] 16:17:00 Test Item Value Reference Range Comments WHITE BLOOD CELL COUNT (BEAKER) (test fzfq=713) 5.6 K/ L 3.5-10.5 RED BLOOD CELL COUNT (BEAKER) (test uqkt=059) 3.83 M/ L 3.93-5.22 HEMOGLOBIN (BEAKER) (test ypuu=409) 12.0 GM/DL 11.2-15.7 HEMATOCRIT (BEAKER) (test bdta=241) 36.8 % 34.1-44.9 MEAN CORPUSCULAR VOLUME (BEAKER) (test xqvq=733) 96.1 fL 79.4-94.8 MEAN CORPUSCULAR HEMOGLOBIN (BEAKER) (test 31.3 pg 25.6-32.2 cagr=685) MEAN CORPUSCULAR HEMOGLOBIN CONC (BEAKER) (test 32.6 GM/DL 32.2-35.5 rfga=741) RED CELL DISTRIBUTION WIDTH (BEAKER) (test 15.9 % 11.7-14.4 tamk=576) PLATELET COUNT (BEAKER) (test sfhn=655) 83 K/CU MM 150-450 MEAN PLATELET VOLUME (BEAKER) (test dfgv=203) 11.1 fL 9.4-12.3 NUCLEATED RED BLOOD CELLS (BEAKER) (test 0 /100 WBC 0-0 xata=745) NEUTROPHILS RELATIVE PERCENT (BEAKER) (test 54 % wuur=371) LYMPHOCYTES RELATIVE PERCENT (BEAKER) (test 36 % ougl=963) MONOCYTES RELATIVE PERCENT (BEAKER) (test 8 % rbng=316) EOSINOPHILS RELATIVE PERCENT (BEAKER) (test 2 % iyct=046) BASOPHILS RELATIVE PERCENT (BEAKER) (test 1 % jfcw=128) NEUTROPHILS ABSOLUTE COUNT (BEAKER) (test 3.01 K/ L 1.56-6.13 nper=484) LYMPHOCYTES ABSOLUTE COUNT (BEAKER) (test 1.98 K/ L 1.18-3.74 gdct=664) MONOCYTES ABSOLUTE COUNT (BEAKER) (test dvyi=163) 0.44 K/ L 0.24-0.36 EOSINOPHILS ABSOLUTE COUNT (BEAKER) (test 0.10 K/ L 0.04-0.36 fpfc=907) BASOPHILS ABSOLUTE COUNT (BEAKER) (test utzk=924) 0.04 K/ L 0.01-0.08 IMMATURE GRANULOCYTES-RELATIVE PERCENT (BEAKER) 0 % 0-1 (test fajg=1401) ALPHA FETOPROTEIN (AFP), TUMOR [id number] 16:14:00 Test Item Value Reference Range Comments ALPHA-FETOPROTEIN (BEAKER) (test zyib=9553) 5.7 ng/mL <10.0 Effective 07/17/2014: Reference Range ChangeNew: <10.0 Previous: 0.0- [id number] 15:57:00 Test Item Value Reference Range Comments MAGNESIUM (BEAKER) (test rpqo=486) 1.9 mg/dL 1.6-2.6 BASIC METABOLIC [id number] 15:57:00 Test Item Value Reference Range Comments SODIUM (BEAKER) (test 139 meq/L 136-145 kanh=974) POTASSIUM (BEAKER) (test 4.5 meq/L 3.5-5.1 qwsk=457) CHLORIDE (BEAKER) (test 105 meq/L 98-107 vaac=241) CO2 (BEAKER) (test 25 meq/L 22-29 gqur=283) BLOOD UREA NITROGEN 15 mg/dL 7-21 (BEAKER) (test cebm=738) CREATININE (BEAKER) (test 0.95 mg/dL 0.57-1.25 akhw=135) GLUCOSE RANDOM (BEAKER) 86 mg/dL 70-105 (test uvql=733) CALCIUM (BEAKER) (test 9.4 mg/dL 8.4-10.2 appc=929) EGFR (BEAKER) (test 56 mL/min/1.73 sq m ESTIMATED GFR IS NOT vgkd=4291) ACCURATE CREATININE CLEARANCE IN PREDICTING GLOMERULAR FILTRATION RATE. ESTIMATED GFR IS NOT APPLICABLE FOR DIALYSIS PATIENTS. Specimen slightly ictericHEPATIC FUNCTION [id number] 15:57:00 Test Item Value Reference Range Comments TOTAL PROTEIN (BEAKER) (test zuok=978) 7.6 gm/dL 6.0-8.3 ALBUMIN (BEAKER) (test xqiq=6503) 3.2 g/dL 3.5-5.0 BILIRUBIN TOTAL (BEAKER) (test oyxk=183) 1.8 mg/dL 0.2-1.2 BILIRUBIN DIRECT (BEAKER) (test dmsb=099) 0.8 mg/dL 0.1-0.5 ALKALINE PHOSPHATASE (BEAKER) (test qrar=277) 112 U/L 40-150 AST (SGOT) (BEAKER) (test ypid=280) 33 U/L 5-34 ALT (SGPT) (BEAKER) (test jyrz=698) 17 U/L 6-55 Specimen slightly ictericPROTHROMBIN [id number] 15:56:00 Test Item Value Reference Range Comments PROTIME (BEAKER) (test jwwz=515) 16.7 seconds 11.7-14.7 INR (BEAKER) (test dxmo=666) 1.4 <=5.9 RECOMMENDED COUMADIN/WARFARIN INR THERAPY RANGESSTANDARD DOSE: 2.0 - 3.0 Includes: PROPHYLAXIS forvenous thrombosis, systemic embolization; TREATMENT for venous thrombosis and/or pulmonary embolus.HIGH RISK: Target INR is 2.5-3.5 for patients with mechanical heart valves.CBC W/PLT COUNT & AUTO [id number] 15:56:00 Test Item Value Reference Range Comments WHITE BLOOD CELL COUNT (BEAKER) (test eygf=895) 5.3 K/ L 4.0-10.0 RED BLOOD CELL COUNT (BEAKER) (test hzym=417) 4.21 M/ L 4.00-5.00 HEMOGLOBIN (BEAKER) (test ovpt=263) 14.1 GM/DL 12.0-15.0 HEMATOCRIT (BEAKER) (test ttzm=202) 41.7 % 36.0-45.0 MEAN CORPUSCULAR VOLUME (BEAKER) (test hgsn=904) 99.1 fL 82.0-99.0 MEAN CORPUSCULAR HEMOGLOBIN (BEAKER) (test 33.4 pg 27.0-33.0 ucra=699) MEAN CORPUSCULAR HEMOGLOBIN CONC (BEAKER) (test 33.7 GM/DL 32.0-36.0 xjpm=847) RED CELL DISTRIBUTION WIDTH (BEAKER) (test 13.2 % 10.3-14.2 pgqq=176) PLATELET COUNT (BEAKER) (test puwi=540) 77 K/CU MM 150-430 MEAN PLATELET VOLUME (BEAKER) (test ccyi=067) 8.4 fL 6.5-10.5 NUCLEATED RED BLOOD CELLS (BEAKER) (test 0 /100 WBC 0-0 vleg=421) NEUTROPHILS RELATIVE PERCENT (BEAKER) (test 54 % ulcb=570) LYMPHOCYTES RELATIVE PERCENT (BEAKER) (test 33 % sfus=586) MONOCYTES RELATIVE PERCENT (BEAKER) (test 10 % yqyb=593) EOSINOPHILS RELATIVE PERCENT (BEAKER) (test 3 % luux=497) BASOPHILS RELATIVE PERCENT (BEAKER) (test 0 % hfxg=146) NEUTROPHILS ABSOLUTE COUNT (BEAKER) (test 2.86 K/ L 1.80-8.00 cyts=783) LYMPHOCYTES ABSOLUTE COUNT (BEAKER) (test 1.77 K/ L 1.48-4.50 wsav=569) MONOCYTES ABSOLUTE COUNT (BEAKER) (test mzej=999) 0.56 K/ L 0.00-1.30 EOSINOPHILS ABSOLUTE COUNT (BEAKER) (test 0.13 K/ L 0.00-0.50 urrw=000) BASOPHILS ABSOLUTE COUNT (BEAKER) (test woah=106) 0.02 K/ L 0.00-0.20 [id number] 11:05:00 Test Item Value Reference Range Comments POC-CREATININE (BEAKER) 0.9 mg/dL 0.6-1.3 TESTED AT [facility] [address] [facility] (test vvac=2478) [facility] [address] POC-EGFR (BEAKER) (test 59 mL/min/1.73M2 ccrg=8378)
[2019-07-14 09:30] LABS: Absolute Lymphocytes (CBC) 0.5 K/uL (0.7-4.9); Basophils % 0.8 % (0-1.3); Hematocrit 27.4 % (36.0-45.0); Lymphocytes % 13.8 % (15.3-44.8); MPV 8.2 fL (7.6-11.3); RBC Red Blood Cell Count 2.97 M/uL (3.86-4.86)
[2019-07-14 09:46] LABS: Potassium 3.9 mmol/L (3.5-5.1)
--- NOTE | 2019-07-14 10:44 | RAD REPORT ---
EXAM DESCRIPTION: US - Paracentesis Proc Guidance - 07/14/2019 10:15 am CLINICAL HISTORY: ASCITES Ascites COMPARISON: Paracentesis Proc Guidance dated 07/07/2019 FINDINGS: Informed consent was obtained and time-out was performed. Patient's abdomen was prepped and draped in the usual sterile fashion. 1% lidocaine was used for loca l anesthetic purposes. A small skin incision was made. A paracentesis catheter was guided into the peroneal cavity under son ographic guidance. A large volume paracentesis was performed. 4 liters of fluid was obtained. The patient tolerated the procedure well. Patient was administered IV albumin per referring physician protocol. IMPRESSION: Successful ultrasound-guided paracentesis.
[2019-07-14 12:31] VITALS: BP 131/71; TEMP 98.5; O2SAT 96
== END ==
LOC: DS 08:54
PROVIDERS: ATTEND Internal Medicine Gastroenterology
DX: R18.8 Other ascites (principal)
CPT/HCPCS: 85025; 80048; 36415; 96365; 49083; 96366; P9047

== ENCOUNTER 2019-07-21 09:27 | Emergency (ER) | payer OTHER ==
--- OUTSIDE RECORDS SUMMARY | 2019-07-21 09:32 | XMS REPORT ---
:1930 [facility] Address [address] [place] [address] Care Team Providers Name Role Phone MARY [...] Value Reference Range Comments ALPHA-FETOPROTEIN (BEAKER) (test oooi=7402) 2.9 ng/mL <10.0 HEPATIC FUNCTION [id number] 16:38:00 Test Item Value Reference Range Comments TOTAL PROTEIN (BEAKER) (test kwty=391) 9.0 gm/dL 6.0-8.3 ALBUMIN (BEAKER) (test mipg=7071) 2.8 g/dL 3.5-5.0 BILIRUBIN TOTAL (BEAKER) (test zlpt=676) 1.2 mg/dL 0.2-1.2 BILIRUBIN DIRECT (BEAKER) (test imlw=994) 0.7 mg/dL 0.1-0.5 ALKALINE PHOSPHATASE (BEAKER) (test nlip=172) 111 U/L 40-150 AST (SGOT) (BEAKER) (test yttj=626) 31 U/L 5-34 ALT (SGPT) (BEAKER) (test muwy=371) 12 U/L 6-55 BASIC METABOLIC [id number] 16:38:00 Test Item Value Reference Range Comments SODIUM (BEAKER) (test 133 meq/L 136-145 ywpp=536) POTASSIUM (BEAKER) (test 4.0 meq/L 3.5-5.1 vtxh=669) CHLORIDE (BEAKER) (test 100 meq/L 98-107 wdzl=713) CO2 (BEAKER) (test 27 meq/L 22-29 rcsa=335) BLOOD UREA NITROGEN 20 mg/dL 7-21 (BEAKER) (test djsk=362) CREATININE (BEAKER) (test 1.07 mg/dL 0.57-1.25 czjp=238) GLUCOSE RANDOM (BEAKER) 71 mg/dL 70-105 (test ztku=207) CALCIUM (BEAKER) (test 9.4 mg/dL 8.4-10.2 jzhj=296) EGFR (BEAKER) (test 49 mL/min/1.73 sq m ESTIMATED GFR IS NOT wjse=3576) ACCURATE CREATININE CLEARANCE IN PREDICTING GLOMERULAR FILTRATION RATE. ESTIMATED GFR IS NOT APPLICABLE FOR DIALYSIS PATIENTS. [id number] 16:33:00 Test Item Value Reference Range Comments AMMONIA (BEAKER) (test ntme=857) 40 mol/L 18-72 PROTHROMBIN [id number] 16:29:00 Test Item Value Reference Range Comments PROTIME (BEAKER) (test etkz=384) 16.5 seconds 11.7-14.7 INR (BEAKER) (test knpa=824) 1.3 <=5.9 RECOMMENDED COUMADIN/WARFARIN INR THERAPY RANGESSTANDARD DOSE: 2.0 - 3.0 Includes: PROPHYLAXIS forvenous thrombosis, systemic embolization; TREATMENT for venous thrombosis and/or pulmonary embolus.HIGH RISK: Target INR is 2.5-3.5 for patients with mechanical heart valves.CBC W/PLT COUNT & AUTO [id number] 16:22:00 Test Item Value Reference Range Comments WHITE BLOOD CELL COUNT (BEAKER) (test jpot=402) 5.0 K/ L 3.5-10.5 RED BLOOD CELL COUNT (BEAKER) (test eujd=022) 3.39 M/ L 3.93-5.22 HEMOGLOBIN (BEAKER) (test yovb=445) 10.7 GM/DL 11.2-15.7 HEMATOCRIT (BEAKER) (test jwwq=714) 33.1 % 34.1-44.9 MEAN CORPUSCULAR VOLUME (BEAKER) (test vecs=677) 97.6 fL 79.4-94.8 MEAN CORPUSCULAR HEMOGLOBIN (BEAKER) (test 31.6 pg 25.6-32.2 sohw=630) MEAN CORPUSCULAR HEMOGLOBIN CONC (BEAKER) (test 32.3 GM/DL 32.2-35.5 mybl=636) RED CELL DISTRIBUTION WIDTH (BEAKER) (test 15.0 % 11.7-14.4 hrok=824) PLATELET COUNT (BEAKER) (test xeac=282) 98 K/CU MM 150-450 MEAN PLATELET VOLUME (BEAKER) (test ompk=299) 10.0 fL 9.4-12.3 NUCLEATED RED BLOOD CELLS (BEAKER) (test 0 /100 WBC 0-0 vejj=972) NEUTROPHILS RELATIVE PERCENT (BEAKER) (test 71 % bmyj=424) LYMPHOCYTES RELATIVE PERCENT (BEAKER) (test 14 % vmaa=368) MONOCYTES RELATIVE PERCENT (BEAKER) (test 12 % elot=141) EOSINOPHILS RELATIVE PERCENT (BEAKER) (test 2 % tkvu=570) BASOPHILS RELATIVE PERCENT (BEAKER) (test 1 % uraw=998) NEUTROPHILS ABSOLUTE COUNT (BEAKER) (test 3.51 K/ L 1.56-6.13 tydg=143) LYMPHOCYTES ABSOLUTE COUNT (BEAKER) (test 0.69 K/ L 1.18-3.74 npbt=218) MONOCYTES ABSOLUTE COUNT (BEAKER) (test oivm=053) 0.62 K/ L 0.24-0.36 EOSINOPHILS ABSOLUTE COUNT (BEAKER) (test 0.10 K/ L 0.04-0.36 xzgm=021) BASOPHILS ABSOLUTE COUNT (BEAKER) (test iqpb=031) 0.04 K/ L 0.01-0.08 IMMATURE GRANULOCYTES-RELATIVE PERCENT (BEAKER) 0 % 0-1 (test ujji=5518) ALPHA FETOPROTEIN (AFP), TUMOR [id number] 17:15:00 Test Item Value Reference Range Comments ALPHA-FETOPROTEIN (BEAKER) (test fjjq=0789) 3.3 ng/mL <10.0 [id number] 16:34:00 Test Item Value Reference Range Comments MAGNESIUM (BEAKER) (test awrc=213) 1.8 mg/dL 1.6-2.6 BASIC METABOLIC [id number] 16:34:00 Test Item Value Reference Range Comments SODIUM (BEAKER) (test 133 meq/L 136-145 jmfa=533) POTASSIUM (BEAKER) (test 3.9 meq/L 3.5-5.1 nfmq=324) CHLORIDE (BEAKER) (test 99 meq/L 98-107 yftf=512) CO2 (BEAKER) (test 25 meq/L 22-29 rldf=323) BLOOD UREA NITROGEN 12 mg/dL 7-21 (BEAKER) (test yczy=604) CREATININE (BEAKER) (test 0.97 mg/dL 0.57-1.25 pklo=600) GLUCOSE RANDOM (BEAKER) 93 mg/dL 70-105 (test yvfh=448) CALCIUM (BEAKER) (test 9.0 mg/dL 8.4-10.2 qrlt=453) EGFR (BEAKER) (test 54 mL/min/1.73 sq m ESTIMATED GFR IS NOT uixa=4906) ACCURATE CREATININE CLEARANCE IN PREDICTING GLOMERULAR FILTRATION RATE. ESTIMATED GFR IS NOT APPLICABLE FOR DIALYSIS PATIENTS. Specimen slightly ictericHEPATIC FUNCTION [id number] 16:34:00 Test Item Value Reference Range Comments TOTAL PROTEIN (BEAKER) (test pkdu=295) 8.0 gm/dL 6.0-8.3 ALBUMIN (BEAKER) (test dddl=8257) 3.0 g/dL 3.5-5.0 BILIRUBIN TOTAL (BEAKER) (test jomr=251) 1.9 mg/dL 0.2-1.2 BILIRUBIN DIRECT (BEAKER) (test ahlq=590) 0.8 mg/dL 0.1-0.5 ALKALINE PHOSPHATASE (BEAKER) (test jsuo=356) 122 U/L 40-150 AST (SGOT) (BEAKER) (test gpkt=314) 30 U/L 5-34 ALT (SGPT) (BEAKER) (test nfmt=894) 12 U/L 6-55 Specimen slightly ictericPROTHROMBIN [id number] 16:17:00 Test Item Value Reference Range Comments PROTIME (BEAKER) (test bqlr=662) 17.3 seconds 11.7-14.7 INR (BEAKER) (test qlnx=919) 1.4 <=5.9 RECOMMENDED COUMADIN/WARFARIN INR THERAPY RANGESSTANDARD DOSE: 2.0 - 3.0 Includes: PROPHYLAXIS forvenous thrombosis, systemic embolization; TREATMENT for venous thrombosis and/or pulmonary embolus.HIGH RISK: Target INR is 2.5-3.5 for patients with mechanical heart valves.CBC W/PLT COUNT & AUTO [id number] 16:17:00 Test Item Value Reference Range Comments WHITE BLOOD CELL COUNT (BEAKER) (test txrp=163) 5.6 K/ L 3.5-10.5 RED BLOOD CELL COUNT (BEAKER) (test noch=102) 3.83 M/ L 3.93-5.22 HEMOGLOBIN (BEAKER) (test bxta=900) 12.0 GM/DL 11.2-15.7 HEMATOCRIT (BEAKER) (test cuji=802) 36.8 % 34.1-44.9 MEAN CORPUSCULAR VOLUME (BEAKER) (test tvle=885) 96.1 fL 79.4-94.8 MEAN CORPUSCULAR HEMOGLOBIN (BEAKER) (test 31.3 pg 25.6-32.2 patk=806) MEAN CORPUSCULAR HEMOGLOBIN CONC (BEAKER) (test 32.6 GM/DL 32.2-35.5 yovf=999) RED CELL DISTRIBUTION WIDTH (BEAKER) (test 15.9 % 11.7-14.4 kqpf=354) PLATELET COUNT (BEAKER) (test nwdc=780) 83 K/CU MM 150-450 MEAN PLATELET VOLUME (BEAKER) (test oclu=864) 11.1 fL 9.4-12.3 NUCLEATED RED BLOOD CELLS (BEAKER) (test 0 /100 WBC 0-0 oejt=887) NEUTROPHILS RELATIVE PERCENT (BEAKER) (test 54 % bvcq=927) LYMPHOCYTES RELATIVE PERCENT (BEAKER) (test 36 % uzpp=425) MONOCYTES RELATIVE PERCENT (BEAKER) (test 8 % ymbu=586) EOSINOPHILS RELATIVE PERCENT (BEAKER) (test 2 % qtjp=114) BASOPHILS RELATIVE PERCENT (BEAKER) (test 1 % blho=623) NEUTROPHILS ABSOLUTE COUNT (BEAKER) (test 3.01 K/ L 1.56-6.13 hemm=681) LYMPHOCYTES ABSOLUTE COUNT (BEAKER) (test 1.98 K/ L 1.18-3.74 gnqd=077) MONOCYTES ABSOLUTE COUNT (BEAKER) (test yoiz=390) 0.44 K/ L 0.24-0.36 EOSINOPHILS ABSOLUTE COUNT (BEAKER) (test 0.10 K/ L 0.04-0.36 btqh=113) BASOPHILS ABSOLUTE COUNT (BEAKER) (test egyi=311) 0.04 K/ L 0.01-0.08 IMMATURE GRANULOCYTES-RELATIVE PERCENT (BEAKER) 0 % 0-1 (test dler=4031) ALPHA FETOPROTEIN (AFP), TUMOR [id number] 16:14:00 Test Item Value Reference Range Comments ALPHA-FETOPROTEIN (BEAKER) (test oufi=1424) 5.7 ng/mL <10.0 Effective 07/17/2014: Reference Range ChangeNew: <10.0 Previous: 0.0- [id number] 15:57:00 Test Item Value Reference Range Comments MAGNESIUM (BEAKER) (test iwim=257) 1.9 mg/dL 1.6-2.6 BASIC METABOLIC [id number] 15:57:00 Test Item Value Reference Range Comments SODIUM (BEAKER) (test 139 meq/L 136-145 jeib=884) POTASSIUM (BEAKER) (test 4.5 meq/L 3.5-5.1 qyhk=870) CHLORIDE (BEAKER) (test 105 meq/L 98-107 vntm=652) CO2 (BEAKER) (test 25 meq/L 22-29 tcwz=067) BLOOD UREA NITROGEN 15 mg/dL 7-21 (BEAKER) (test qcna=440) CREATININE (BEAKER) (test 0.95 mg/dL 0.57-1.25 ofzs=453) GLUCOSE RANDOM (BEAKER) 86 mg/dL 70-105 (test sucr=474) CALCIUM (BEAKER) (test 9.4 mg/dL 8.4-10.2 lkhh=303) EGFR (BEAKER) (test 56 mL/min/1.73 sq m ESTIMATED GFR IS NOT gmwl=2878) ACCURATE CREATININE CLEARANCE IN PREDICTING GLOMERULAR FILTRATION RATE. ESTIMATED GFR IS NOT APPLICABLE FOR DIALYSIS PATIENTS. Specimen slightly ictericHEPATIC FUNCTION [id number] 15:57:00 Test Item Value Reference Range Comments TOTAL PROTEIN (BEAKER) (test vdxo=768) 7.6 gm/dL 6.0-8.3 ALBUMIN (BEAKER) (test lnft=6041) 3.2 g/dL 3.5-5.0 BILIRUBIN TOTAL (BEAKER) (test ujtm=000) 1.8 mg/dL 0.2-1.2 BILIRUBIN DIRECT (BEAKER) (test nikl=513) 0.8 mg/dL 0.1-0.5 ALKALINE PHOSPHATASE (BEAKER) (test xmbh=241) 112 U/L 40-150 AST (SGOT) (BEAKER) (test vdjh=400) 33 U/L 5-34 ALT (SGPT) (BEAKER) (test kapi=903) 17 U/L 6-55 Specimen slightly ictericPROTHROMBIN [id number] 15:56:00 Test Item Value Reference Range Comments PROTIME (BEAKER) (test hzmg=247) 16.7 seconds 11.7-14.7 INR (BEAKER) (test inky=357) 1.4 <=5.9 RECOMMENDED COUMADIN/WARFARIN INR THERAPY RANGESSTANDARD DOSE: 2.0 - 3.0 Includes: PROPHYLAXIS forvenous thrombosis, systemic embolization; TREATMENT for venous thrombosis and/or pulmonary embolus.HIGH RISK: Target INR is 2.5-3.5 for patients with mechanical heart valves.CBC W/PLT COUNT & AUTO [id number] 15:56:00 Test Item Value Reference Range Comments WHITE BLOOD CELL COUNT (BEAKER) (test jous=492) 5.3 K/ L 4.0-10.0 RED BLOOD CELL COUNT (BEAKER) (test vqza=136) 4.21 M/ L 4.00-5.00 HEMOGLOBIN (BEAKER) (test azel=752) 14.1 GM/DL 12.0-15.0 HEMATOCRIT (BEAKER) (test qtmc=279) 41.7 % 36.0-45.0 MEAN CORPUSCULAR VOLUME (BEAKER) (test dkgw=922) 99.1 fL 82.0-99.0 MEAN CORPUSCULAR HEMOGLOBIN (BEAKER) (test 33.4 pg 27.0-33.0 zzxt=856) MEAN CORPUSCULAR HEMOGLOBIN CONC (BEAKER) (test 33.7 GM/DL 32.0-36.0 yvpf=475) RED CELL DISTRIBUTION WIDTH (BEAKER) (test 13.2 % 10.3-14.2 ahhq=635) PLATELET COUNT (BEAKER) (test vouv=094) 77 K/CU MM 150-430 MEAN PLATELET VOLUME (BEAKER) (test unpq=054) 8.4 fL 6.5-10.5 NUCLEATED RED BLOOD CELLS (BEAKER) (test 0 /100 WBC 0-0 knqj=773) NEUTROPHILS RELATIVE PERCENT (BEAKER) (test 54 % beov=278) LYMPHOCYTES RELATIVE PERCENT (BEAKER) (test 33 % udzt=999) MONOCYTES RELATIVE PERCENT (BEAKER) (test 10 % kowr=638) EOSINOPHILS RELATIVE PERCENT (BEAKER) (test 3 % vmup=443) BASOPHILS RELATIVE PERCENT (BEAKER) (test 0 % omce=171) NEUTROPHILS ABSOLUTE COUNT (BEAKER) (test 2.86 K/ L 1.80-8.00 zcmn=268) LYMPHOCYTES ABSOLUTE COUNT (BEAKER) (test 1.77 K/ L 1.48-4.50 tepg=067) MONOCYTES ABSOLUTE COUNT (BEAKER) (test zlme=597) 0.56 K/ L 0.00-1.30 EOSINOPHILS ABSOLUTE COUNT (BEAKER) (test 0.13 K/ L 0.00-0.50 cwes=018) BASOPHILS ABSOLUTE COUNT (BEAKER) (test hvfk=775) 0.02 K/ L 0.00-0.20 0.30ZVIF-[id number] 11:05:00 Test Item Value Reference Range Comments POC-CREATININE (BEAKER) 0.9 mg/dL 0.6-1.3 TESTED AT [facility] [address] [facility] (test dmch=2424) [facility] [id number] POC-EGFR (BEAKER) (test 59 mL/min/1.73M2 ptwq=9222)
[2019-07-21 10:14] LABS: Protime INR 1.56
[2019-07-21 10:15] LABS: Absolute Lymphocytes (CBC) 0.4 K/uL (0.7-4.9); Basophils % 0.9 % (0-1.3); Hematocrit 27.6 % (36.0-45.0); Lymphocytes % 15.4 % (15.3-44.8); MPV 8.1 fL (7.6-11.3); RBC Red Blood Cell Count 2.93 M/uL (3.86-4.86)
[2019-07-21 10:25] LABS: ALT/SGPT 11 U/L (12-78); AST/SGOT 19 U/L (15-37); Albumin 3.1 g/dL (3.4-5.0); Alkaline Phosphatase 82 U/L (45-117); BUN Blood Urea Nitrogen 14 mg/dL (7-18); Bicarbonate 27 mmol/L (21-32); Bilirubin Direct 0.5 mg/dL (0-0.2); Bilirubin Total 1.5 mg/dL (0.2-1.0); Glucose Level 135 mg/dL (74-106); Magnesium 2.3 mg/dL (1.8-2.4); NT PRO-BNP 200 pg/mL (<450); Potassium 3.9 mmol/L (3.5-5.1); Protein, Total 7.5 g/dL (6.4-8.2); Sodium Level 138 mmol/L (136-145); Troponin (Emerg Dept Use Only) < 0.02 ng/mL (0.0-0.045)
[2019-07-21 11:03] LABS: Blood Morphology Comment NOT SEEN (NOT SEEN); Platelet Estimate DECR; Urine White Blood Cell Casts OK
--- NOTE | 2019-07-21 11:50 | RAD REPORT ---
EXAM DESCRIPTION: Jaswant Single View07/21/2019 10:26 am CLINICAL HISTORY: Palpitations COMPARISON: May 2019 FINDINGS: Small bilateral pleural effusions are suspected Mild left basilar atelectasis. Mild interstitial lung opacities likely are mostly chronic The heart is normal size. A PICC line has tip in the superior vena cava
--- NOTE | 2019-07-21 11:57 | EDPHYS ---
Physician Documentation [facility] Name: Whitney Villalta Age: 88 yrs Sex: Female : 1930 Arrival Date: 07/21/2019 Time: 09:36 Bed 4 Private MD: ED Physician Jasson Horn HPI: 07/21 12:43 This 88 yrs old Female presents to ER via Stretcher with complaints of high kdr heart rate. 12:43 The patient presents with a history of heart racing. Context: The symptoms occur at kdr rest, The patient was waiting for her weekly paracentesis when she was noted to be tachycardic. She did not have any new symptoms at the time and was otherwise in her usual state of health. She was then brought to the ED for evaluation.. Onset: The symptoms/episode began/occurred suddenly, just prior to arrival. Duration: The patient or guardian reports a single episode, that is now resolved. Modifying factors: The symptoms are aggravated by nothing. The symptoms are alleviated by nothing. Associated signs and symptoms: The patient has no apparent associated signs or symptoms. Severity of symptoms: At their worst the symptoms were very mild in the emergency department the symptoms have resolved. The patient has not experienced similar symptoms in the past. The patient has been recently seen by a physician: The patient is under the regular care for her liver disease which requires weekly paracentsis.. Historical: - Allergies: 09:43 adhesive tapes; ss 09:43 Morphine; ss - PMHx: 09:43 colon cancer; Liver disease; Lower extremity edema; Pneumonia; stage 3 cirrhosis; ss - Immunization history:: Adult Immunizations up to date. - Social history:: Smoking status: Patient/guardian denies using tobacco. - Ebola Screening: : Patient denies exposure to infectious person Patient denies travel to an Ebola-affected area in the 21 days before illness onset. ROS: 12:43 Constitutional: Negative for fever, chills, and weight loss, Eyes: Negative for injury, kdr pain, redness, and discharge, ENT: Negative for injury, pain, and discharge, Neck: Negative for injury, pain, and swelling, Respiratory: Negative for shortness of breath, cough, wheezing, and pleuritic chest pain, Abdomen/GI: Negative for abdominal pain, nausea, vomiting, diarrhea, and constipation, Back: Negative for injury and pain, : Negative for injury, bleeding, discharge, and swelling, MS/Extremity: Negative for injury and deformity, Skin: Negative for injury, rash, and discoloration, Neuro: Negative for headache, weakness, numbness, tingling, and seizure activity. Psych: Negative for depression, anxiety, suicide ideation, homicidal ideation, and hallucinations, Allergy/Immunology: Negative for hives, rash, and allergies, Endocrine: Negative for neck swelling, polydipsia, polyuria, polyphagia, and marked weight changes, Hematologic/Lymphatic: Negative for swollen nodes, abnormal bleeding, and unusual bruising. 12:43 Cardiovascular: Positive for palpitations, Negative for chest pain, edema, orthopnea, paroxysmal nocturnal dyspnea. Exam: 12:43 Constitutional: This is a well developed, well nourished patient who is awake, alert, kdr and in no acute distress. Head/Face: Normocephalic, atraumatic. Eyes: Pupils equal round and reactive to light, extra-ocular motions intact. Lids and lashes normal. Conjunctiva and sclera are non-icteric and not injected. Cornea within normal limits. Periorbital areas with no swelling, redness, or edema. Neck: Trachea midline, no thyromegaly or masses palpated, and no cervical lymphadenopathy. Supple, full range of motion without nuchal rigidity, or vertebral point tenderness. No Meningismus. Chest/axilla: Normal chest wall appearance and motion. Nontender with no deformity. No lesions are appreciated. Cardiovascular: Regular rate and rhythm with a normal S1 and S2. No gallops, murmurs, or rubs. Normal PMI, no JVD. No pulse deficits. Respiratory: Lungs have equal breath sounds bilaterally, clear to auscultation and percussion. No rales, rhonchi or wheezes noted. No increased work of breathing, no retractions or nasal flaring. Back: No spinal tenderness. No costovertebral tenderness. Full range of motion. Skin: Warm, dry with normal turgor. Normal color with no rashes, no lesions, and no evidence of cellulitis. Neuro: Awake and alert, GCS 15, oriented to person, place, time, and situation. Cranial nerves II-XII grossly intact. Motor strength 5/5 in all extremities. Sensory grossly intact. Cerebellar exam normal. Normal gait. Psych: Awake, alert, with orientation to person, place and time. Behavior, mood, and affect are within normal limits. 12:43 Abdomen/GI: Inspection: distension, that is moderate, Typical cirrhosis induced acites, obese Vital Signs: 09:37 BP 112 / 75; Pulse 95; Resp 17; Pulse Ox 96% on R/A; Weight 62.6 kg; Height 5 ft. 5 in. ss (165.10 cm); Pain 0/10; 10:41 BP 117 / 74; Pulse 78; Resp 17; Pulse Ox 93% ; bp 11:37 BP 119 / 67; Pulse 79; Resp 16; Pulse Ox 97% ; bp 09:37 Body Mass Index 22.96 (62.60 kg, 165.10 cm) ss MDM: 11:56 Patient medically screened. kdr 12:43 Data reviewed: vital signs, nurses notes, lab test result(s), EKG, radiologic studies. kdr Counseling: I had a detailed discussion with the patient and/or guardian regarding: the historical points, exam findings, and any diagnostic results supporting the discharge/admit diagnosis, lab results, radiology results, the need for outpatient follow up. 07/21 09:41 Order name: Basic Metabolic Panel; Complete Time: 11:15 kdr 07/21 09:41 Order name: CBC with Diff; Complete Time: 11:15 kdr 07/21 09:41 Order name: LFT's; Complete Time: 11:15 kdr 07/21 09:41 Order name: Magnesium; Complete Time: 11:15 kdr 07/21 09:41 Order name: NT PRO-BNP; Complete Time: 11:15 kdr 07/21 09:41 Order name: PT-INR; Complete Time: 11:15 kdr 07/21 09:41 Order name: Troponin (emerg Dept Use Only); Complete Time: 11:15 kdr 07/21 09:41 Order name: XRAY Chest (1 view) kdr 07/21 09:41 Order name: EKG; Complete Time: :43 kdr 07/21 09:41 Order name: Cardiac monitoring; Complete Time: :43 kdr 07/21 09:41 Order name: EKG - Nurse/Tech; Complete Time: :43 kdr 07/21 09:41 Order name: IV Saline Lock; Complete Time: :43 kdr 07/21 09:41 Order name: Labs collected and sent; Complete Time: 09:51 kdr 07/21 11:03 Order name: CBC Smear Scan; Complete Time: 11:15 EDHI 07/21 09:41 Order name: O2 Per Protocol; Complete Time: 09:43 kdr 07/21 09:41 Order name: O2 Sat Monitoring; Complete Time: 09:43 kdr Administered Medications: No medications were administered Disposition: 07/21/19 11:56 Discharged to Home. Impression: Palpitations, Tachycardia, unspecified. - Condition is Stable. - Discharge Instructions: Palpitations, Wtvw-zi-Ezzo, Sinus Tachycardia. - Medication Reconciliation Form, Thank You Letter form. - Follow up: Private Physician; When: 2 - 3 days; Reason: If symptoms return, Further diagnostic work-up, Recheck today's complaints, Continuance of care, Re-evaluation by your physician. - Problem is new. - Symptoms have improved. Signatures: Dispatcher [employer] EDMS Jasson Horn MD MD kdr Mckenzie Rachel RN RN ss Corrections: (The following items were deleted from the chart) 12:20 11:56 07/21/2019 11:56 Discharged to Home. Impression: Palpitations; Tachycardia, ss unspecified. Condition is Stable. Forms are Medication Reconciliation Form, Thank You Letter, Antibiotic Education, Prescription Opioid Use. Follow up: Private Physician; When: 2 - 3 days; Reason: If symptoms return, Further diagnostic work-up, Recheck today's complaints, Continuance of care, Re-evaluation by your physician. Problem is new. Symptoms have improved. kdr
--- NOTE | 2019-07-21 11:57 | ER ---
Nurse's Notes [facility] Name: Whitney Villalta Age: 88 yrs Sex: Female : 1930 Arrival Date: 07/21/2019 Time: 09:36 Bed 4 Private MD: Diagnosis: Palpitations;Tachycardia, unspecified Presentation: 07/21 09:38 Presenting complaint: Day surgery nurse reports that patient was having Preprocedural ss VS obtained prior to having her weekly paracentesis. Nurse reports that patent's heart rate was 140-150 bpm. HR on arrival to ER is 94 bpm. Pt has no complaints at this time. Transition of care: Day Surgery. Onset of symptoms was July 21, 2019. Risk Assessment: Do you want to hurt yourself or someone else? Patient reports no desire to harm self or others. Initial Sepsis Screen: Does the patient meet any 2 criteria? HR > 90 bpm. Does the patient have a suspected source of infection? No. Patient's initial sepsis screen is negative. Care prior to arrival: BP 131/62 120/75 HR 140. 09:38 Method Of Arrival: Stretcher ss 09:38 Acuity: KELLY 3 ss Triage Assessment: 09:37 General: Appears in no apparent distress. comfortable, Behavior is calm, cooperative, bp appropriate for age. Pain: Denies pain. EENT: No deficits noted. Neuro: Level of Consciousness is awake, alert, obeys commands, Oriented to person, place, time, situation, Appropriate for age. Cardiovascular: Rhythm is sinus rhythm. Respiratory: Airway is patent Respiratory effort is even, unlabored, Respiratory pattern is regular, symmetrical. GI: Abdomen is noted to have ascites. : No signs and/or symptoms were reported regarding the genitourinary system. Derm: No deficits noted. Musculoskeletal: No deficits noted. Historical: - Allergies: 09:43 adhesive tapes; ss 09:43 Morphine; ss - PMHx: 09:43 colon cancer; Liver disease; Lower extremity edema; Pneumonia; stage 3 cirrhosis; ss - Immunization history:: Adult Immunizations up to date. - Social history:: Smoking status: Patient/guardian denies using tobacco. - Ebola Screening: : Patient denies exposure to infectious person Patient denies travel to an Ebola-affected area in the 21 days before illness onset. Screenin:38 Abuse screen: Denies threats or abuse. Denies injuries from another. Nutritional bp screening: No deficits noted. Tuberculosis screening: No symptoms or risk factors identified. Fall Risk None identified. Assessment: 09:38 General: SEE TRIAGE NOTE. bp 10:41 Reassessment: PT REMAINS SR ON MONITOR, XRAY RESULT PENDING. bp 12:08 Reassessment: D/C ON HOLD PENDING DAY SURGERY RESPONSE FOR PARACENTESIS. bp Vital Signs: 09:37 BP 112 / 75; Pulse 95; Resp 17; Pulse Ox 96% on R/A; Weight 62.6 kg; Height 5 ft. 5 in. ss (165.10 cm); Pain 0/10; 10:41 BP 117 / 74; Pulse 78; Resp 17; Pulse Ox 93% ; bp 11:37 BP 119 / 67; Pulse 79; Resp 16; Pulse Ox 97% ; bp 09:37 Body Mass Index 22.96 (62.60 kg, 165.10 cm) ED Course: 09:36 Patient arrived in ED. ss 09:37 Avtar Barrett, RN is Primary Nurse. bp 09:37 Arm band placed on. ss 09:38 Jasson Horn MD is Attending Physician. kdr 09:38 Patient has correct armband on for positive identification. Placed in gown. Bed in low bp position. Call light in reach. Side rails up X2. Adult w/ patient. 09:38 Accessed PICC line. Clean \T\ dry. Dressing intact. bp 09:42 Triage completed. ss 10:02 EKG done, by magnetic resonance technologist. reviewed by Jasson Horn MD. at1 10:23 XRAY Chest (1 view) In Process Unspecified. EDMS Administered Medications: No medications were administered Outcome: 11:56 Discharge ordered by . kdr 12:19 Discharged to US for paracentesis then ok to go home ss 12:19 Condition: good 12:19 Discharge instructions given to patient, family, Instructed on discharge instructions, follow up and referral plans. medication usage, Demonstrated understanding of instructions, follow-up care. 12:20 Patient left the ED. ss Signatures: Dispatcher [employer] EDMS Jasson Horn MD MD kdr Mckenzie Rachel RN RN Paulette Vu, cyber intelligence analyst EKG Tat1 Avtar Barrett, KULDIP RN bp
--- NOTE | 2019-07-21 11:57 | EKG ---
Test Date: 2019-07-21 Test Time: 09:31:55 Bundle Helper: JUAN A MEASUREMENT RESULTS: Intervals: Rate: 94 [place]: 172 QRSD: 68 QT: 364 QTc: 455 Reeders: P: 74 NY: 172 QRS: 82 T: 49 INTERPRETIVE STATEMENTS: Normal sinus rhythm Low voltage QRS Borderline ECG Compared to ECG 05/30/2019 20:26:16 Low QRS voltage now present Electronically Signed On 07-21-19 11:56:27 [facility] by Hi Meyer
[2019-07-21 12:42] VITALS: BP 119/67; O2SAT 97
== END 2019-07-21 12:20 | disposition home or self-care (01) ==
LOC: ER 09:27
DX: R00.0 Tachycardia, unspecified (principal); K76.9 Liver disease, unspecified; K74.60 Unspecified cirrhosis of liver; Z88.5 Allergy status to narcotic agent; Z85.038 Personal history of other malignant neoplasm of large intestine; Z91.048 Other nonmedicinal substance allergy status
CPT/HCPCS: 36415; 71045; 80048; 80076; 83735; 83880; 84484; 85025; 85610; 93005; 99284

== ENCOUNTER → 2019-07-21 | Day surgery (SDC) | payer OTHER ==
--- OUTSIDE RECORDS SUMMARY | 2019-07-21 08:34 | XMS REPORT ---
:1930 [facility] Address [address] [place] [address] [address] [place] [address] Care Team Providers Name Role Phone MARY [...] Value Reference Range Comments ALPHA-FETOPROTEIN (BEAKER) (test bfjr=3741) 2.9 ng/mL <10.0 HEPATIC FUNCTION [id number] 16:38:00 Test Item Value Reference Range Comments TOTAL PROTEIN (BEAKER) (test lqxj=353) 9.0 gm/dL 6.0-8.3 ALBUMIN (BEAKER) (test kvqh=0057) 2.8 g/dL 3.5-5.0 BILIRUBIN TOTAL (BEAKER) (test uuyv=625) 1.2 mg/dL 0.2-1.2 BILIRUBIN DIRECT (BEAKER) (test mgiu=005) 0.7 mg/dL 0.1-0.5 ALKALINE PHOSPHATASE (BEAKER) (test pvxx=488) 111 U/L 40-150 AST (SGOT) (BEAKER) (test wmha=010) 31 U/L 5-34 ALT (SGPT) (BEAKER) (test iuuv=082) 12 U/L 6-55 BASIC METABOLIC [id number] 16:38:00 Test Item Value Reference Range Comments SODIUM (BEAKER) (test 133 meq/L 136-145 rhoc=697) POTASSIUM (BEAKER) (test 4.0 meq/L 3.5-5.1 vlok=187) CHLORIDE (BEAKER) (test 100 meq/L 98-107 wiia=830) CO2 (BEAKER) (test 27 meq/L 22-29 jgjs=239) BLOOD UREA NITROGEN 20 mg/dL 7-21 (BEAKER) (test dtzy=833) CREATININE (BEAKER) (test 1.07 mg/dL 0.57-1.25 ifzs=008) GLUCOSE RANDOM (BEAKER) 71 mg/dL 70-105 (test uexw=721) CALCIUM (BEAKER) (test 9.4 mg/dL 8.4-10.2 viyi=875) EGFR (BEAKER) (test 49 mL/min/1.73 sq m ESTIMATED GFR IS NOT ityw=0429) ACCURATE CREATININE CLEARANCE IN PREDICTING GLOMERULAR FILTRATION RATE. ESTIMATED GFR IS NOT APPLICABLE FOR DIALYSIS PATIENTS. [id number] 16:33:00 Test Item Value Reference Range Comments AMMONIA (BEAKER) (test rrjw=950) 40 mol/L 18-72 PROTHROMBIN [id number] 16:29:00 Test Item Value Reference Range Comments PROTIME (BEAKER) (test bzek=734) 16.5 seconds 11.7-14.7 INR (BEAKER) (test nkaz=540) 1.3 <=5.9 RECOMMENDED COUMADIN/WARFARIN INR THERAPY RANGESSTANDARD DOSE: 2.0 - 3.0 Includes: PROPHYLAXIS forvenous thrombosis, systemic embolization; TREATMENT for venous thrombosis and/or pulmonary embolus.HIGH RISK: Target INR is 2.5-3.5 for patients with mechanical heart valves.CBC W/PLT COUNT & AUTO [id number] 16:22:00 Test Item Value Reference Range Comments WHITE BLOOD CELL COUNT (BEAKER) (test uond=389) 5.0 K/ L 3.5-10.5 RED BLOOD CELL COUNT (BEAKER) (test aupz=942) 3.39 M/ L 3.93-5.22 HEMOGLOBIN (BEAKER) (test lgln=525) 10.7 GM/DL 11.2-15.7 HEMATOCRIT (BEAKER) (test glzc=961) 33.1 % 34.1-44.9 MEAN CORPUSCULAR VOLUME (BEAKER) (test clnh=218) 97.6 fL 79.4-94.8 MEAN CORPUSCULAR HEMOGLOBIN (BEAKER) (test 31.6 pg 25.6-32.2 btts=175) MEAN CORPUSCULAR HEMOGLOBIN CONC (BEAKER) (test 32.3 GM/DL 32.2-35.5 sqhh=850) RED CELL DISTRIBUTION WIDTH (BEAKER) (test 15.0 % 11.7-14.4 eaqd=591) PLATELET COUNT (BEAKER) (test ixdm=577) 98 K/CU MM 150-450 MEAN PLATELET VOLUME (BEAKER) (test hskf=697) 10.0 fL 9.4-12.3 NUCLEATED RED BLOOD CELLS (BEAKER) (test 0 /100 WBC 0-0 rjrg=069) NEUTROPHILS RELATIVE PERCENT (BEAKER) (test 71 % qwpg=066) LYMPHOCYTES RELATIVE PERCENT (BEAKER) (test 14 % kmjj=744) MONOCYTES RELATIVE PERCENT (BEAKER) (test 12 % ynzj=566) EOSINOPHILS RELATIVE PERCENT (BEAKER) (test 2 % atwd=774) BASOPHILS RELATIVE PERCENT (BEAKER) (test 1 % cihg=180) NEUTROPHILS ABSOLUTE COUNT (BEAKER) (test 3.51 K/ L 1.56-6.13 hiuu=552) LYMPHOCYTES ABSOLUTE COUNT (BEAKER) (test 0.69 K/ L 1.18-3.74 eenc=962) MONOCYTES ABSOLUTE COUNT (BEAKER) (test oinj=678) 0.62 K/ L 0.24-0.36 EOSINOPHILS ABSOLUTE COUNT (BEAKER) (test 0.10 K/ L 0.04-0.36 ihfk=082) BASOPHILS ABSOLUTE COUNT (BEAKER) (test dlqw=582) 0.04 K/ L 0.01-0.08 IMMATURE GRANULOCYTES-RELATIVE PERCENT (BEAKER) 0 % 0-1 (test txrz=1379) ALPHA FETOPROTEIN (AFP), TUMOR [id number] 17:15:00 Test Item Value Reference Range Comments ALPHA-FETOPROTEIN (BEAKER) (test szjq=0106) 3.3 ng/mL <10.0 [id number] 16:34:00 Test Item Value Reference Range Comments MAGNESIUM (BEAKER) (test rszi=149) 1.8 mg/dL 1.6-2.6 BASIC METABOLIC [id number] 16:34:00 Test Item Value Reference Range Comments SODIUM (BEAKER) (test 133 meq/L 136-145 gcps=427) POTASSIUM (BEAKER) (test 3.9 meq/L 3.5-5.1 noej=914) CHLORIDE (BEAKER) (test 99 meq/L 98-107 nlrt=012) CO2 (BEAKER) (test 25 meq/L 22-29 mezn=541) BLOOD UREA NITROGEN 12 mg/dL 7-21 (BEAKER) (test wndk=178) CREATININE (BEAKER) (test 0.97 mg/dL 0.57-1.25 wley=459) GLUCOSE RANDOM (BEAKER) 93 mg/dL 70-105 (test pnua=522) CALCIUM (BEAKER) (test 9.0 mg/dL 8.4-10.2 jexs=121) EGFR (BEAKER) (test 54 mL/min/1.73 sq m ESTIMATED GFR IS NOT vaci=8984) ACCURATE CREATININE CLEARANCE IN PREDICTING GLOMERULAR FILTRATION RATE. ESTIMATED GFR IS NOT APPLICABLE FOR DIALYSIS PATIENTS. Specimen slightly ictericHEPATIC FUNCTION [id number] 16:34:00 Test Item Value Reference Range Comments TOTAL PROTEIN (BEAKER) (test oxjn=024) 8.0 gm/dL 6.0-8.3 ALBUMIN (BEAKER) (test fiws=5595) 3.0 g/dL 3.5-5.0 BILIRUBIN TOTAL (BEAKER) (test blwa=919) 1.9 mg/dL 0.2-1.2 BILIRUBIN DIRECT (BEAKER) (test gbas=402) 0.8 mg/dL 0.1-0.5 ALKALINE PHOSPHATASE (BEAKER) (test yijg=572) 122 U/L 40-150 AST (SGOT) (BEAKER) (test erli=338) 30 U/L 5-34 ALT (SGPT) (BEAKER) (test floz=338) 12 U/L 6-55 Specimen slightly ictericPROTHROMBIN [id number] 16:17:00 Test Item Value Reference Range Comments PROTIME (BEAKER) (test tksw=535) 17.3 seconds 11.7-14.7 INR (BEAKER) (test ngcb=601) 1.4 <=5.9 RECOMMENDED COUMADIN/WARFARIN INR THERAPY RANGESSTANDARD DOSE: 2.0 - 3.0 Includes: PROPHYLAXIS forvenous thrombosis, systemic embolization; TREATMENT for venous thrombosis and/or pulmonary embolus.HIGH RISK: Target INR is 2.5-3.5 for patients with mechanical heart valves.CBC W/PLT COUNT & AUTO [id number] 16:17:00 Test Item Value Reference Range Comments WHITE BLOOD CELL COUNT (BEAKER) (test kvdi=760) 5.6 K/ L 3.5-10.5 RED BLOOD CELL COUNT (BEAKER) (test aqby=937) 3.83 M/ L 3.93-5.22 HEMOGLOBIN (BEAKER) (test ckyp=299) 12.0 GM/DL 11.2-15.7 HEMATOCRIT (BEAKER) (test xgrk=130) 36.8 % 34.1-44.9 MEAN CORPUSCULAR VOLUME (BEAKER) (test ttfz=770) 96.1 fL 79.4-94.8 MEAN CORPUSCULAR HEMOGLOBIN (BEAKER) (test 31.3 pg 25.6-32.2 qxhf=998) MEAN CORPUSCULAR HEMOGLOBIN CONC (BEAKER) (test 32.6 GM/DL 32.2-35.5 hosq=231) RED CELL DISTRIBUTION WIDTH (BEAKER) (test 15.9 % 11.7-14.4 fhbf=555) PLATELET COUNT (BEAKER) (test mvfm=118) 83 K/CU MM 150-450 MEAN PLATELET VOLUME (BEAKER) (test iprr=415) 11.1 fL 9.4-12.3 NUCLEATED RED BLOOD CELLS (BEAKER) (test 0 /100 WBC 0-0 gbgu=660) NEUTROPHILS RELATIVE PERCENT (BEAKER) (test 54 % uchk=786) LYMPHOCYTES RELATIVE PERCENT (BEAKER) (test 36 % ofqi=223) MONOCYTES RELATIVE PERCENT (BEAKER) (test 8 % fess=065) EOSINOPHILS RELATIVE PERCENT (BEAKER) (test 2 % vohn=755) BASOPHILS RELATIVE PERCENT (BEAKER) (test 1 % qnyh=577) NEUTROPHILS ABSOLUTE COUNT (BEAKER) (test 3.01 K/ L 1.56-6.13 hswz=143) LYMPHOCYTES ABSOLUTE COUNT (BEAKER) (test 1.98 K/ L 1.18-3.74 mitc=352) MONOCYTES ABSOLUTE COUNT (BEAKER) (test dbxz=831) 0.44 K/ L 0.24-0.36 EOSINOPHILS ABSOLUTE COUNT (BEAKER) (test 0.10 K/ L 0.04-0.36 kjxv=830) BASOPHILS ABSOLUTE COUNT (BEAKER) (test pmch=351) 0.04 K/ L 0.01-0.08 IMMATURE GRANULOCYTES-RELATIVE PERCENT (BEAKER) 0 % 0-1 (test vyns=4582) ALPHA FETOPROTEIN (AFP), TUMOR [id number] 16:14:00 Test Item Value Reference Range Comments ALPHA-FETOPROTEIN (BEAKER) (test owtj=7070) 5.7 ng/mL <10.0 Effective 07/17/2014: Reference Range ChangeNew: <10.0 Previous: 0.0- [id number] 15:57:00 Test Item Value Reference Range Comments MAGNESIUM (BEAKER) (test oqna=378) 1.9 mg/dL 1.6-2.6 BASIC METABOLIC [id number] 15:57:00 Test Item Value Reference Range Comments SODIUM (BEAKER) (test 139 meq/L 136-145 ithl=847) POTASSIUM (BEAKER) (test 4.5 meq/L 3.5-5.1 ajlt=111) CHLORIDE (BEAKER) (test 105 meq/L 98-107 zuul=842) CO2 (BEAKER) (test 25 meq/L 22-29 jbjx=542) BLOOD UREA NITROGEN 15 mg/dL 7-21 (BEAKER) (test vyfx=638) CREATININE (BEAKER) (test 0.95 mg/dL 0.57-1.25 shoq=059) GLUCOSE RANDOM (BEAKER) 86 mg/dL 70-105 (test fqho=569) CALCIUM (BEAKER) (test 9.4 mg/dL 8.4-10.2 xznk=760) EGFR (BEAKER) (test 56 mL/min/1.73 sq m ESTIMATED GFR IS NOT vsqn=8561) ACCURATE CREATININE CLEARANCE IN PREDICTING GLOMERULAR FILTRATION RATE. ESTIMATED GFR IS NOT APPLICABLE FOR DIALYSIS PATIENTS. Specimen slightly ictericHEPATIC FUNCTION [id number] 15:57:00 Test Item Value Reference Range Comments TOTAL PROTEIN (BEAKER) (test kkzv=294) 7.6 gm/dL 6.0-8.3 ALBUMIN (BEAKER) (test qwkh=9843) 3.2 g/dL 3.5-5.0 BILIRUBIN TOTAL (BEAKER) (test dgvw=750) 1.8 mg/dL 0.2-1.2 BILIRUBIN DIRECT (BEAKER) (test tsfp=330) 0.8 mg/dL 0.1-0.5 ALKALINE PHOSPHATASE (BEAKER) (test ccsw=620) 112 U/L 40-150 AST (SGOT) (BEAKER) (test kihp=134) 33 U/L 5-34 ALT (SGPT) (BEAKER) (test kzfl=778) 17 U/L 6-55 Specimen slightly ictericPROTHROMBIN [id number] 15:56:00 Test Item Value Reference Range Comments PROTIME (BEAKER) (test txhe=639) 16.7 seconds 11.7-14.7 INR (BEAKER) (test sxex=808) 1.4 <=5.9 RECOMMENDED COUMADIN/WARFARIN INR THERAPY RANGESSTANDARD DOSE: 2.0 - 3.0 Includes: PROPHYLAXIS forvenous thrombosis, systemic embolization; TREATMENT for venous thrombosis and/or pulmonary embolus.HIGH RISK: Target INR is 2.5-3.5 for patients with mechanical heart valves.CBC W/PLT COUNT & AUTO [id number] 15:56:00 Test Item Value Reference Range Comments WHITE BLOOD CELL COUNT (BEAKER) (test jzif=149) 5.3 K/ L 4.0-10.0 RED BLOOD CELL COUNT (BEAKER) (test zepk=896) 4.21 M/ L 4.00-5.00 HEMOGLOBIN (BEAKER) (test aiqj=378) 14.1 GM/DL 12.0-15.0 HEMATOCRIT (BEAKER) (test pneq=464) 41.7 % 36.0-45.0 MEAN CORPUSCULAR VOLUME (BEAKER) (test pptw=368) 99.1 fL 82.0-99.0 MEAN CORPUSCULAR HEMOGLOBIN (BEAKER) (test 33.4 pg 27.0-33.0 jdzv=086) MEAN CORPUSCULAR HEMOGLOBIN CONC (BEAKER) (test 33.7 GM/DL 32.0-36.0 ocze=685) RED CELL DISTRIBUTION WIDTH (BEAKER) (test 13.2 % 10.3-14.2 vpcs=774) PLATELET COUNT (BEAKER) (test poiw=515) 77 K/CU MM 150-430 MEAN PLATELET VOLUME (BEAKER) (test waug=991) 8.4 fL 6.5-10.5 NUCLEATED RED BLOOD CELLS (BEAKER) (test 0 /100 WBC 0-0 juwu=458) NEUTROPHILS RELATIVE PERCENT (BEAKER) (test 54 % ygta=542) LYMPHOCYTES RELATIVE PERCENT (BEAKER) (test 33 % nxiv=745) MONOCYTES RELATIVE PERCENT (BEAKER) (test 10 % agrc=565) EOSINOPHILS RELATIVE PERCENT (BEAKER) (test 3 % lgyz=495) BASOPHILS RELATIVE PERCENT (BEAKER) (test 0 % qsgj=815) NEUTROPHILS ABSOLUTE COUNT (BEAKER) (test 2.86 K/ L 1.80-8.00 utgt=098) LYMPHOCYTES ABSOLUTE COUNT (BEAKER) (test 1.77 K/ L 1.48-4.50 bmbu=744) MONOCYTES ABSOLUTE COUNT (BEAKER) (test otcd=022) 0.56 K/ L 0.00-1.30 EOSINOPHILS ABSOLUTE COUNT (BEAKER) (test 0.13 K/ L 0.00-0.50 zfhc=102) BASOPHILS ABSOLUTE COUNT (BEAKER) (test bors=430) 0.02 K/ L 0.00-0.20 0.86QOYZ-[id number] 11:05:00 Test Item Value Reference Range Comments POC-CREATININE (BEAKER) 0.9 mg/dL 0.6-1.3 TESTED AT [facility] [address] [facility] (test goee=9997) [facility] [address] POC-EGFR (BEAKER) (test 59 mL/min/1.73M2 dhdm=3025)
[2019-07-21 12:31] VITALS: TEMP 98; BMI 21.8
[2019-07-21 13:29] VITALS: BP 127/66; O2SAT 95
--- NOTE | 2019-07-21 13:58 | RAD REPORT ---
EXAM DESCRIPTION: US - Paracentesis Proc Guidance - 07/21/2019 12:56 pm CLINICAL HISTORY: Liver disease with ascites FINDINGS: The risks, benefits and alternatives to the procedure were explained to the patient and in formed consent obtained. The skin and subcutaneous tissues were anesthetized with Lidocaine. Under sonographic guidance an 8 F rench catheter was placed into the right lower quadrant. 4 liters of yellow fluid removed and sent to the lab The patient experienced no immediate complication. IMPRESSION: Paracentesis
[2019-07-21 14:26] LABS: Body Fluid Source PERITONEAL; Color of fluid Yellow (COLORLESS)
[2019-07-21 14:27] LABS: Appearance SLT. TURBID (CLEAR); Body Fluid WBC 154 /mm^3
== END | disposition home or self-care (01) ==
LOC: DS 08:29
PROVIDERS: ATTEND Internal Medicine Gastroenterology
DX: R18.8 Other ascites (principal); K72.90 Hepatic failure, unspecified without coma; K74.60 Unspecified cirrhosis of liver; K76.0 Fatty (change of) liver, not elsewhere classified; R60.0 Localized edema; R80.9 Proteinuria, unspecified; K30 Functional dyspepsia; E88.09 Other disorders of plasma-protein metabolism, not elsewhere classified; D69.6 Thrombocytopenia, unspecified; L25.9 Unspecified contact dermatitis, unspecified cause
CPT/HCPCS: 36415; 89050; 96365; 49083; P9047

== ENCOUNTER 2019-07-24 16:31 | Observation (INO) | payer OTHER ==
--- OUTSIDE RECORDS SUMMARY | 2019-07-24 16:34 | XMS REPORT ---
:1930 [facility] [address] [place] [address] Care Team Providers Name Role Phone MARY [...] Value Reference Range Comments ALPHA-FETOPROTEIN (BEAKER) (test nuok=9825) 2.9 ng/mL <10.0 HEPATIC FUNCTION [id number] 16:38:00 Test Item Value Reference Range Comments TOTAL PROTEIN (BEAKER) (test xuyp=740) 9.0 gm/dL 6.0-8.3 ALBUMIN (BEAKER) (test zoqa=7027) 2.8 g/dL 3.5-5.0 BILIRUBIN TOTAL (BEAKER) (test ltnh=894) 1.2 mg/dL 0.2-1.2 BILIRUBIN DIRECT (BEAKER) (test numo=505) 0.7 mg/dL 0.1-0.5 ALKALINE PHOSPHATASE (BEAKER) (test qgza=818) 111 U/L 40-150 AST (SGOT) (BEAKER) (test shea=806) 31 U/L 5-34 ALT (SGPT) (BEAKER) (test wrgf=136) 12 U/L 6-55 BASIC METABOLIC [id number] 16:38:00 Test Item Value Reference Range Comments SODIUM (BEAKER) (test 133 meq/L 136-145 mqnm=912) POTASSIUM (BEAKER) (test 4.0 meq/L 3.5-5.1 fjtz=509) CHLORIDE (BEAKER) (test 100 meq/L 98-107 ozfo=942) CO2 (BEAKER) (test 27 meq/L 22-29 qxhd=161) BLOOD UREA NITROGEN 20 mg/dL 7-21 (BEAKER) (test xzll=624) CREATININE (BEAKER) (test 1.07 mg/dL 0.57-1.25 oykg=034) GLUCOSE RANDOM (BEAKER) 71 mg/dL 70-105 (test ovrx=527) CALCIUM (BEAKER) (test 9.4 mg/dL 8.4-10.2 bkmu=670) EGFR (BEAKER) (test 49 mL/min/1.73 sq m ESTIMATED GFR IS NOT cuwm=0669) ACCURATE CREATININE CLEARANCE IN PREDICTING GLOMERULAR FILTRATION RATE. ESTIMATED GFR IS NOT APPLICABLE FOR DIALYSIS PATIENTS. [id number] 16:33:00 Test Item Value Reference Range Comments AMMONIA (BEAKER) (test ogfz=370) 40 mol/L 18-72 PROTHROMBIN [id number] 16:29:00 Test Item Value Reference Range Comments PROTIME (BEAKER) (test jwdc=154) 16.5 seconds 11.7-14.7 INR (BEAKER) (test ixlr=260) 1.3 <=5.9 RECOMMENDED COUMADIN/WARFARIN INR THERAPY RANGESSTANDARD DOSE: 2.0 - 3.0 Includes: PROPHYLAXIS forvenous thrombosis, systemic embolization; TREATMENT for venous thrombosis and/or pulmonary embolus.HIGH RISK: Target INR is 2.5-3.5 for patients with mechanical heart valves.CBC W/PLT COUNT & AUTO [id number] 16:22:00 Test Item Value Reference Range Comments WHITE BLOOD CELL COUNT (BEAKER) (test kxbn=281) 5.0 K/ L 3.5-10.5 RED BLOOD CELL COUNT (BEAKER) (test gvmj=313) 3.39 M/ L 3.93-5.22 HEMOGLOBIN (BEAKER) (test elaq=129) 10.7 GM/DL 11.2-15.7 HEMATOCRIT (BEAKER) (test emel=302) 33.1 % 34.1-44.9 MEAN CORPUSCULAR VOLUME (BEAKER) (test zypm=699) 97.6 fL 79.4-94.8 MEAN CORPUSCULAR HEMOGLOBIN (BEAKER) (test 31.6 pg 25.6-32.2 isgp=395) MEAN CORPUSCULAR HEMOGLOBIN CONC (BEAKER) (test 32.3 GM/DL 32.2-35.5 sryp=254) RED CELL DISTRIBUTION WIDTH (BEAKER) (test 15.0 % 11.7-14.4 sedu=394) PLATELET COUNT (BEAKER) (test lwpl=524) 98 K/CU MM 150-450 MEAN PLATELET VOLUME (BEAKER) (test fzvw=678) 10.0 fL 9.4-12.3 NUCLEATED RED BLOOD CELLS (BEAKER) (test 0 /100 WBC 0-0 lnhe=080) NEUTROPHILS RELATIVE PERCENT (BEAKER) (test 71 % inwr=849) LYMPHOCYTES RELATIVE PERCENT (BEAKER) (test 14 % kylc=349) MONOCYTES RELATIVE PERCENT (BEAKER) (test 12 % spkh=399) EOSINOPHILS RELATIVE PERCENT (BEAKER) (test 2 % xmej=230) BASOPHILS RELATIVE PERCENT (BEAKER) (test 1 % fdhx=238) NEUTROPHILS ABSOLUTE COUNT (BEAKER) (test 3.51 K/ L 1.56-6.13 giel=900) LYMPHOCYTES ABSOLUTE COUNT (BEAKER) (test 0.69 K/ L 1.18-3.74 ftrs=217) MONOCYTES ABSOLUTE COUNT (BEAKER) (test qdxf=515) 0.62 K/ L 0.24-0.36 EOSINOPHILS ABSOLUTE COUNT (BEAKER) (test 0.10 K/ L 0.04-0.36 digt=264) BASOPHILS ABSOLUTE COUNT (BEAKER) (test xvaz=824) 0.04 K/ L 0.01-0.08 IMMATURE GRANULOCYTES-RELATIVE PERCENT (BEAKER) 0 % 0-1 (test ejdp=7423) ALPHA FETOPROTEIN (AFP), TUMOR [id number] 17:15:00 Test Item Value Reference Range Comments ALPHA-FETOPROTEIN (BEAKER) (test fpxs=1990) 3.3 ng/mL <10.0 [id number] 16:34:00 Test Item Value Reference Range Comments MAGNESIUM (BEAKER) (test ytje=408) 1.8 mg/dL 1.6-2.6 BASIC METABOLIC [id number] 16:34:00 Test Item Value Reference Range Comments SODIUM (BEAKER) (test 133 meq/L 136-145 wclv=906) POTASSIUM (BEAKER) (test 3.9 meq/L 3.5-5.1 ctab=582) CHLORIDE (BEAKER) (test 99 meq/L 98-107 imdr=815) CO2 (BEAKER) (test 25 meq/L 22-29 uaya=819) BLOOD UREA NITROGEN 12 mg/dL 7-21 (BEAKER) (test zfxp=340) CREATININE (BEAKER) (test 0.97 mg/dL 0.57-1.25 eowv=207) GLUCOSE RANDOM (BEAKER) 93 mg/dL 70-105 (test tffc=675) CALCIUM (BEAKER) (test 9.0 mg/dL 8.4-10.2 kyco=015) EGFR (BEAKER) (test 54 mL/min/1.73 sq m ESTIMATED GFR IS NOT fyhf=8679) ACCURATE CREATININE CLEARANCE IN PREDICTING GLOMERULAR FILTRATION RATE. ESTIMATED GFR IS NOT APPLICABLE FOR DIALYSIS PATIENTS. Specimen slightly ictericHEPATIC FUNCTION [id number] 16:34:00 Test Item Value Reference Range Comments TOTAL PROTEIN (BEAKER) (test mxrt=758) 8.0 gm/dL 6.0-8.3 ALBUMIN (BEAKER) (test jwng=5541) 3.0 g/dL 3.5-5.0 BILIRUBIN TOTAL (BEAKER) (test hdqr=894) 1.9 mg/dL 0.2-1.2 BILIRUBIN DIRECT (BEAKER) (test fzde=091) 0.8 mg/dL 0.1-0.5 ALKALINE PHOSPHATASE (BEAKER) (test txzu=366) 122 U/L 40-150 AST (SGOT) (BEAKER) (test ueyz=231) 30 U/L 5-34 ALT (SGPT) (BEAKER) (test gnnc=016) 12 U/L 6-55 Specimen slightly ictericPROTHROMBIN [id number] 16:17:00 Test Item Value Reference Range Comments PROTIME (BEAKER) (test irup=940) 17.3 seconds 11.7-14.7 INR (BEAKER) (test kuty=730) 1.4 <=5.9 RECOMMENDED COUMADIN/WARFARIN INR THERAPY RANGESSTANDARD DOSE: 2.0 - 3.0 Includes: PROPHYLAXIS forvenous thrombosis, systemic embolization; TREATMENT for venous thrombosis and/or pulmonary embolus.HIGH RISK: Target INR is 2.5-3.5 for patients with mechanical heart valves.CBC W/PLT COUNT & AUTO [id number] 16:17:00 Test Item Value Reference Range Comments WHITE BLOOD CELL COUNT (BEAKER) (test spfa=110) 5.6 K/ L 3.5-10.5 RED BLOOD CELL COUNT (BEAKER) (test pnyf=178) 3.83 M/ L 3.93-5.22 HEMOGLOBIN (BEAKER) (test unnl=215) 12.0 GM/DL 11.2-15.7 HEMATOCRIT (BEAKER) (test xrcq=519) 36.8 % 34.1-44.9 MEAN CORPUSCULAR VOLUME (BEAKER) (test klcx=597) 96.1 fL 79.4-94.8 MEAN CORPUSCULAR HEMOGLOBIN (BEAKER) (test 31.3 pg 25.6-32.2 tktg=316) MEAN CORPUSCULAR HEMOGLOBIN CONC (BEAKER) (test 32.6 GM/DL 32.2-35.5 bqag=634) RED CELL DISTRIBUTION WIDTH (BEAKER) (test 15.9 % 11.7-14.4 zolg=431) PLATELET COUNT (BEAKER) (test xvyp=349) 83 K/CU MM 150-450 MEAN PLATELET VOLUME (BEAKER) (test qeso=309) 11.1 fL 9.4-12.3 NUCLEATED RED BLOOD CELLS (BEAKER) (test 0 /100 WBC 0-0 aeaw=416) NEUTROPHILS RELATIVE PERCENT (BEAKER) (test 54 % rxvk=061) LYMPHOCYTES RELATIVE PERCENT (BEAKER) (test 36 % zhdj=137) MONOCYTES RELATIVE PERCENT (BEAKER) (test 8 % uvkr=506) EOSINOPHILS RELATIVE PERCENT (BEAKER) (test 2 % pzyk=315) BASOPHILS RELATIVE PERCENT (BEAKER) (test 1 % vhly=934) NEUTROPHILS ABSOLUTE COUNT (BEAKER) (test 3.01 K/ L 1.56-6.13 npla=110) LYMPHOCYTES ABSOLUTE COUNT (BEAKER) (test 1.98 K/ L 1.18-3.74 bnkf=011) MONOCYTES ABSOLUTE COUNT (BEAKER) (test bqsl=523) 0.44 K/ L 0.24-0.36 EOSINOPHILS ABSOLUTE COUNT (BEAKER) (test 0.10 K/ L 0.04-0.36 ikaw=635) BASOPHILS ABSOLUTE COUNT (BEAKER) (test tway=598) 0.04 K/ L 0.01-0.08 IMMATURE GRANULOCYTES-RELATIVE PERCENT (BEAKER) 0 % 0-1 (test cadc=9254) ALPHA FETOPROTEIN (AFP), TUMOR [id number] 16:14:00 Test Item Value Reference Range Comments ALPHA-FETOPROTEIN (BEAKER) (test auba=0827) 5.7 ng/mL <10.0 Effective 07/17/2014: Reference Range ChangeNew: <10.0 Previous: 0.0- [id number] 15:57:00 Test Item Value Reference Range Comments MAGNESIUM (BEAKER) (test tgxf=721) 1.9 mg/dL 1.6-2.6 BASIC METABOLIC [id number] 15:57:00 Test Item Value Reference Range Comments SODIUM (BEAKER) (test 139 meq/L 136-145 kjbp=215) POTASSIUM (BEAKER) (test 4.5 meq/L 3.5-5.1 zxlr=203) CHLORIDE (BEAKER) (test 105 meq/L 98-107 bvsk=688) CO2 (BEAKER) (test 25 meq/L 22-29 dchd=932) BLOOD UREA NITROGEN 15 mg/dL 7-21 (BEAKER) (test lutg=766) CREATININE (BEAKER) (test 0.95 mg/dL 0.57-1.25 tocp=088) GLUCOSE RANDOM (BEAKER) 86 mg/dL 70-105 (test waca=605) CALCIUM (BEAKER) (test 9.4 mg/dL 8.4-10.2 qrtg=354) EGFR (BEAKER) (test 56 mL/min/1.73 sq m ESTIMATED GFR IS NOT kkpi=2285) ACCURATE CREATININE CLEARANCE IN PREDICTING GLOMERULAR FILTRATION RATE. ESTIMATED GFR IS NOT APPLICABLE FOR DIALYSIS PATIENTS. Specimen slightly ictericHEPATIC FUNCTION [id number] 15:57:00 Test Item Value Reference Range Comments TOTAL PROTEIN (BEAKER) (test ywtn=560) 7.6 gm/dL 6.0-8.3 ALBUMIN (BEAKER) (test qpmq=6157) 3.2 g/dL 3.5-5.0 BILIRUBIN TOTAL (BEAKER) (test xskw=316) 1.8 mg/dL 0.2-1.2 BILIRUBIN DIRECT (BEAKER) (test bgrv=561) 0.8 mg/dL 0.1-0.5 ALKALINE PHOSPHATASE (BEAKER) (test qecd=322) 112 U/L 40-150 AST (SGOT) (BEAKER) (test auyx=036) 33 U/L 5-34 ALT (SGPT) (BEAKER) (test lghm=461) 17 U/L 6-55 Specimen slightly ictericPROTHROMBIN [id number] 15:56:00 Test Item Value Reference Range Comments PROTIME (BEAKER) (test wlbq=643) 16.7 seconds 11.7-14.7 INR (BEAKER) (test iulq=850) 1.4 <=5.9 RECOMMENDED COUMADIN/WARFARIN INR THERAPY RANGESSTANDARD DOSE: 2.0 - 3.0 Includes: PROPHYLAXIS forvenous thrombosis, systemic embolization; TREATMENT for venous thrombosis and/or pulmonary embolus.HIGH RISK: Target INR is 2.5-3.5 for patients with mechanical heart valves.CBC W/PLT COUNT & AUTO [id number] 15:56:00 Test Item Value Reference Range Comments WHITE BLOOD CELL COUNT (BEAKER) (test ykhc=826) 5.3 K/ L 4.0-10.0 RED BLOOD CELL COUNT (BEAKER) (test rxci=005) 4.21 M/ L 4.00-5.00 HEMOGLOBIN (BEAKER) (test xiqi=913) 14.1 GM/DL 12.0-15.0 HEMATOCRIT (BEAKER) (test zpen=102) 41.7 % 36.0-45.0 MEAN CORPUSCULAR VOLUME (BEAKER) (test eixq=325) 99.1 fL 82.0-99.0 MEAN CORPUSCULAR HEMOGLOBIN (BEAKER) (test 33.4 pg 27.0-33.0 yinx=157) MEAN CORPUSCULAR HEMOGLOBIN CONC (BEAKER) (test 33.7 GM/DL 32.0-36.0 fgqh=150) RED CELL DISTRIBUTION WIDTH (BEAKER) (test 13.2 % 10.3-14.2 mnwl=764) PLATELET COUNT (BEAKER) (test ukjs=354) 77 K/CU MM 150-430 MEAN PLATELET VOLUME (BEAKER) (test upcr=220) 8.4 fL 6.5-10.5 NUCLEATED RED BLOOD CELLS (BEAKER) (test 0 /100 WBC 0-0 lpyl=137) NEUTROPHILS RELATIVE PERCENT (BEAKER) (test 54 % xnjh=473) LYMPHOCYTES RELATIVE PERCENT (BEAKER) (test 33 % ssai=030) MONOCYTES RELATIVE PERCENT (BEAKER) (test 10 % expq=127) EOSINOPHILS RELATIVE PERCENT (BEAKER) (test 3 % ibqq=564) BASOPHILS RELATIVE PERCENT (BEAKER) (test 0 % vsbx=715) NEUTROPHILS ABSOLUTE COUNT (BEAKER) (test 2.86 K/ L 1.80-8.00 pwbm=120) LYMPHOCYTES ABSOLUTE COUNT (BEAKER) (test 1.77 K/ L 1.48-4.50 trjb=968) MONOCYTES ABSOLUTE COUNT (BEAKER) (test roig=480) 0.56 K/ L 0.00-1.30 EOSINOPHILS ABSOLUTE COUNT (BEAKER) (test 0.13 K/ L 0.00-0.50 fpfh=826) BASOPHILS ABSOLUTE COUNT (BEAKER) (test bopl=161) 0.02 K/ L 0.00-0.20 [id number] 11:05:00 Test Item Value Reference Range Comments POC-CREATININE (BEAKER) 0.9 mg/dL 0.6-1.[address] [facility] [address] [facility] (test xfdz=4171) [facility] [address] POC-EGFR (BEAKER) (test 59 mL/min/1.73M2 uwck=3063)
--- NOTE | 2019-07-24 17:40 | ER ---
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 Pt reports increased weakness and dizziness since about 1130 today after receiving albumin. Transition of care: patient was not received from another setting of care. Onset of symptoms was July 24, 2019 at 11:30. Risk Assessment: Do you want to hurt yourself or someone else? Patient reports no desire to harm self or others. Initial Sepsis Screen: Does the patient meet any 2 criteria? HR > 90 bpm. No. Patient's initial sepsis screen is negative. Does the patient have a suspected source of infection? No. Patient's initial sepsis screen is negative. Care prior to arrival: Medication(s) given: Normal saline infusion, 150 mL IV initiated. 20 GA, in the left forearm. 16:59 Method Of Arrival: EMS: [facility] 7 16:59 Acuity: KELLY 3 jl7 16:59 Care prior to arrival: Medication(s) given: zofran 4 mg. jl7 Triage Assessment: 17:04 General: Appears in no apparent distress. uncomfortable, Behavior is calm, cooperative, jl7 appropriate for age. Pain: Denies pain. Neuro: Level of Consciousness is awake, alert, obeys commands, Oriented to person, place, time, situation. Cardiovascular: Patient's skin is warm and dry. Respiratory: Airway is patent Respiratory effort is even, unlabored, Respiratory pattern is regular, symmetrical. GI: Abdomen is round noted to have ascites. : No signs and/or symptoms were reported regarding the genitourinary system. Derm: Skin is pink, warm \\T\\ dry. Historical: - Allergies: 17:04 adhesive tapes; jl7 17:04 Morphine; jl7 - Home Meds: 17:04 docusate sodium 100 mg Oral cap 1 cap at bedtime [Active]; Ferrous Sulfate Oral daily jl7 [Active]; furosemide 40 mg Oral tab 1 tab once daily [Active]; gabapentin 300 mg Oral cap 1 cap 3 times per day [Active]; Iron CR Oral 28 mg twice a day [Active]; lactulose 20 gram/30 mL Oral soln twice a day [Active]; magnesium oxide 250 mg Oral tab twice a day [Active]; Magnesium Oxide Oral twice a day [Active]; midodrine 5 mg Oral tab 2 tabs twice a day [Active]; mupirocin 2 % Topical oint twice a day [Active]; omeprazole 40 mg Oral cpDR Every other day [Active]; potassium chloride 10 mEq Oral cpER 1 cap 2 times per day [Active]; propylene glycol ophthalmic every 4 hours [Active]; rifaximin 200 mg Oral 1 tab 2 times per day [Active]; spironolactone 25 mg Oral tab 2 tabs daily [Active]; Xifaxan 550 mg Oral tab 1 tab 2 times per day [Active]; sulfamethoxazole-trimethoprim Oral 2 times per day [Active]; - PMHx: 17:04 colon cancer; Liver disease; Lower extremity edema; Pneumonia; stage 3 cirrhosis; jl7 - Immunization history:: Adult Immunizations unknown. - Social history:: Smoking status: Patient/guardian denies using tobacco. - Ebola Screening: : No symptoms or risks identified at this time. - Family history:: not pertinent. Screenin:06 Abuse screen: Denies threats or abuse. Denies injuries from another. Nutritional jl7 screening: No deficits noted. Tuberculosis screening: No symptoms or risk factors identified. Fall Risk IV access (20 points). Total Madrid Fall Scale indicates No Risk (0-24 pts). Assessment: 17:20 Reassessment: Pt reports "I'm on a 1500 mL per day fluid restriction.". jl7 19:15 General: Appears in no apparent distress. Behavior is calm, cooperative, appropriate ea for age. Pain: Denies pain. Neuro: Level of Consciousness is awake, alert, obeys commands, Oriented to person, place, time, situation. Cardiovascular: Patient's skin is warm and dry. Respiratory: Airway is patent Breath sounds are coarse bilaterally. GI: Abdomen is non-distended. Derm: Skin is pink, warm \\T\\ dry. 20:10 Reassessment: Patient and/or family updated on plan of care and expected duration. Pain ea level reassessed. Patient is alert, oriented x 3, equal unlabored respirations, skin warm/dry/pink. 21:50 Reassessment: Patient and/or family updated on plan of care and expected duration. Pain ea level reassessed. Patient is alert, oriented x 3, equal unlabored respirations, skin warm/dry/pink. Report called to receiving nurse on second floor. 22:15 Reassessment: Patient and/or family updated on plan of care and expected duration. Pain ea level reassessed. Patient is alert, oriented x 3, equal unlabored respirations, skin warm/dry/pink. Pt admitted to second floor via stretcher per tech. Pt tolerating well. No s/s of pain or discomfort noted at this time. Vital Signs: 17:04 BP 104 / 62; Pulse 95; Resp 19 S; Temp 98.2(TE); Pulse Ox 97% on R/A; jl7 19:47 BP 106 / 53; Pulse 88; Resp 18; Pulse Ox 97% ; ea 20:54 BP 95 / 56; Pulse 81; Resp 18; Pulse Ox 95% on R/A; ea 21:45 BP 99 / 57; Pulse 77; Resp 18; Temp 98(TE); Pulse Ox 95% ; ea 22:05 BP 94 / 57; Pulse 85; Resp 20; Pulse Ox 96% on R/A; ea ED Course: 16:58 Patient arrived in ED. ss 16:59 Sandra Li RN is Primary Nurse. jl7 17:00 Keven Sousa MD is Attending Physician. patricia 17:03 Triage completed. jl7 17:04 Arm band placed on right wrist. jl7 17:05 EKG done, by ED staff, reviewed by Keven Sousa MD. ms 17:06 Maintain EMS IV. Dressing intact. Good blood return noted. Site clean \\T\\ dry. Gauge \\T\\ jl 7 site: 20 left FA. 17:06 Patient has correct armband on for positive identification. Bed in low position. Call jl7 light in reach. Side rails up X2. cafeteria monitor on. Pulse ox on. NIBP on. Warm blanket given. 17:36 CT Head Brain wo Cont In Process Unspecified. EDMS 17:38 Ronal Reza DO is Hospitalizing Provider. [facility] 17:38 Eladio Rios MD is Hospitalizing Provider. patricia 17:39 XRAY Chest (1 view) In Process Unspecified. EDMS 18:07 Urine collected: straight cath specimen, gera colored. Straight cath inserted, using jl7 sterile technique, 16 Fr. Specimen obtained. Returned gera urine. Patient tolerated well. 20:10 No provider procedures requiring assistance completed. Patient admitted, IV remains in ea place. Administered Medications: 19:44 Drug: Rocephin 1 grams Route: IV; Rate: per protocol; Site: right upper arm; ea 21:53 Follow up: Response: No adverse reaction; IV Status: Completed infusion ea 22:04 Not Given (Physician Discretion): NS 0.9% 1000 ml IV at 75 ml/hr continuous ea Outcome: 17:39 Decision to Hospitalize by Provider. patricia 19:50 Instructed on the need for admit, Demonstrated understanding of instructions. ea 21:49 Condition: stable ea 21:53 Admitted to Med/surg accompanied by tech, room 232, Report called to Receiving nurse ea on second floor 22:31 Patient left the ED. ea Signatures: Dispatcher [employer] EDMS Keven Sousa MD MD cha Villarreal, Maria ms Smirch, Shelby, RN Sandra Washington RN RN jlMelissa Callahan RN RN ea
--- NOTE | 2019-07-24 17:40 | EDPHYS ---
[facility] Name: Whitney Villalta Age: 88 yrs Sex: Female : 1930 Arrival Date: 07/24/2019 Time: 16:58 Bed 2 Private MD: ED Physician Keven Sousa HPI: 07/24 17:22 This 88 yrs old Female presents to ER via EMS with complaints of left arm patricia tingling. 17:22 The patient or guardian complains of pain, that is acute. The complaints affect the patricia left bicep, dorsal aspect of left forearm, left tricep and palmar aspect of left forearm. Context: The problem was sustained at home. Onset: The symptoms/episode began/occurred 2 day(s) ago. Treatment prior to arrival includes: no previous treatment. Modifying factors: The symptoms are alleviated by nothing. the symptoms are aggravated by nothing. hx of cirrhosis. Associated signs and symptoms: The patient has no apparent associated signs or symptoms. Severity of symptoms: At their worst the symptoms were mild in the emergency department the symptoms are unchanged. Historical: - Allergies: 17:04 adhesive tapes; jl7 17:04 Morphine; jl7 - Home Meds: 17:04 docusate sodium 100 mg Oral cap 1 cap at bedtime [Active]; Ferrous Sulfate Oral daily jl7 [Active]; furosemide 40 mg Oral tab 1 tab once daily [Active]; gabapentin 300 mg Oral cap 1 cap 3 times per day [Active]; Iron CR Oral 28 mg twice a day [Active]; lactulose 20 gram/30 mL Oral soln twice a day [Active]; magnesium oxide 250 mg Oral tab twice a day [Active]; Magnesium Oxide Oral twice a day [Active]; midodrine 5 mg Oral tab 2 tabs twice a day [Active]; mupirocin 2 % Topical oint twice a day [Active]; omeprazole 40 mg Oral cpDR Every other day [Active]; potassium chloride 10 mEq Oral cpER 1 cap 2 times per day [Active]; propylene glycol ophthalmic every 4 hours [Active]; rifaximin 200 mg Oral 1 tab 2 times per day [Active]; spironolactone 25 mg Oral tab 2 tabs daily [Active]; Xifaxan 550 mg Oral tab 1 tab 2 times per day [Active]; sulfamethoxazole-trimethoprim Oral 2 times per day [Active]; - PMHx: 17:04 colon cancer; Liver disease; Lower extremity edema; Pneumonia; stage 3 cirrhosis; jl7 - Immunization history:: Adult Immunizations unknown. - Social history:: Smoking status: Patient/guardian denies using tobacco. - Ebola Screening: : No symptoms or risks identified at this time. - Family history:: not pertinent. ROS: 17:22 Constitutional: Negative for fever, chills, and weight loss, Eyes: Negative for injury, patricia pain, redness, and discharge, ENT: Negative for injury, pain, and discharge, Neck: Negative for injury, pain, and swelling, Cardiovascular: Negative for chest pain, palpitations, and edema, Respiratory: Negative for shortness of breath, cough, wheezing, and pleuritic chest pain, Back: Negative for injury and pain, : Negative for injury, bleeding, discharge, and swelling, MS/Extremity: Negative for injury and deformity, Skin: Negative for injury, rash, and discoloration, Neuro: Negative for headache, weakness, numbness, tingling, and seizure, Psych: Negative for depression, anxiety, suicide ideation, homicidal ideation, and hallucinations, Allergy/Immunology: Negative for hives, rash, and allergies, Endocrine: Negative for neck swelling, polydipsia, polyuria, polyphagia, and marked weight changes. 17:22 Abdomen/GI: Positive for abdominal distension. Exam: 17:22 Constitutional: This is a well developed, well nourished patient who is awake, alert, patricia and in no acute distress. Head/Face: Normocephalic, atraumatic. Eyes: Pupils equal round and reactive to light, extra-ocular motions intact. Lids and lashes normal. Conjunctiva and sclera are non-icteric and not injected. Cornea within normal limits. Periorbital areas with no swelling, redness, or edema. ENT: Nares patent. No nasal discharge, no septal abnormalities noted. Tympanic membranes are normal and external auditory canals are clear. Oropharynx with no redness, swelling, or masses, exudates, or evidence of obstruction, uvula midline. Mucous membranes moist. Neck: Trachea midline, no thyromegaly or masses palpated, and no cervical lymphadenopathy. Supple, full range of motion without nuchal rigidity, or vertebral point tenderness. No Meningismus. Chest/axilla: Normal chest wall appearance and motion. Nontender with no deformity. No lesions are appreciated. Cardiovascular: Regular rate and rhythm with a normal S1 and S2. No gallops, murmurs, or rubs. Normal PMI, no JVD. No pulse deficits. Respiratory: Lungs have equal breath sounds bilaterally, clear to auscultation and percussion. No rales, rhonchi or wheezes noted. No increased work of breathing, no retractions or nasal flaring. Back: No spinal tenderness. No costovertebral tenderness. Full range of motion. Skin: Warm, dry with normal turgor. Normal color with no rashes, no lesions, and no evidence of cellulitis. MS/ Extremity: Pulses equal, no cyanosis. Neurovascular intact. Full, normal range of motion. Neuro: Awake and alert, GCS 15, oriented to person, place, time, and situation. Cranial nerves II-XII grossly intact. Motor strength 5/5 in all extremities. Sensory grossly intact. Cerebellar exam normal. Normal gait. Psych: Awake, alert, with orientation to person, place and time. Behavior, mood, and affect are within normal limits. 17:22 Abdomen/GI: Inspection: distension, Bowel sounds: normal, Palpation: mild abdominal tenderness, in all quadrants, Liver: no appreciated palpable abnormalities, Hernia: not appreciated. Vital Signs: 17:04 BP 104 / 62; Pulse 95; Resp 19 S; Temp 98.2(TE); Pulse Ox 97% on R/A; jl7 19:47 BP 106 / 53; Pulse 88; Resp 18; Pulse Ox 97% ; ea 20:54 BP 95 / 56; Pulse 81; Resp 18; Pulse Ox 95% on R/A; ea 21:45 BP 99 / 57; Pulse 77; Resp 18; Temp 98(TE); Pulse Ox 95% ; ea 22:05 BP 94 / 57; Pulse 85; Resp 20; Pulse Ox 96% on R/A; ea MDM: 17:00 Patient medically screened. [facility] 17:27 Data reviewed: vital signs, nurses notes, lab test result(s), EKG, radiologic studies, [facility] CT scan, plain films. 07/24 17:18 Order name: Basic Metabolic Panel; Complete Time: 18:55 [facility] 07/24 17:18 Order name: CBC with Diff; Complete Time: 18:22 [facility] 07/24 17:18 Order name: LFT's; Complete Time: 18:55 [facility] 07/24 17:18 Order name: Magnesium; Complete Time: 18:55 [facility] 07/24 17:18 Order name: NT PRO-BNP; Complete Time: 18:55 [facility] 07/24 17:18 Order name: PT-INR; Complete Time: 18:22 [facility] 07/24 17:18 Order name: Troponin (emerg Dept Use Only); Complete Time: 18:55 [facility] 07/24 17:18 Order name: TSH; Complete Time: 18:55 [facility] 07/24 17:18 Order name: Lipase; Complete Time: 18:55 [facility] 07/24 17:18 Order name: Urine Culture [facility] 07/24 18:11 Order name: Urine Dipstick--Ancillary (enter results); Complete Time: 18:22 07/24 18:25 Order name: T4 Free; Complete Time: 18:55 [facility] 07/24 20:55 Order name: CBC with Automated Diff [facility] 07/24 20:55 Order name: CBC with Automated Diff [facility] 07/24 17:18 Order name: XRAY Chest (1 view); Complete Time: 18:22 [facility] 07/24 17:18 Order name: EKG; Complete Time: 17:20 [facility] 07/24 17:18 Order name: Cardiac monitoring; Complete Time: 17:20 [facility] 07/24 17:18 Order name: EKG - Nurse/Tech; Complete Time: 17:20 [facility] 07/24 17:18 Order name: IV Saline Lock; Complete Time: 21:53 [facility] 07/24 17:18 Order name: Labs collected and sent; Complete Time: 21:53 [facility] 07/24 17:18 Order name: O2 Per Protocol; Complete Time: 17:20 [facility] 07/24 17:18 Order name: CT Head Brain wo Cont; Complete Time: 18:22 [facility] 07/24 20:55 Order name: Regular EDNM 07/24 20:55 Order name: Comprehensive Metabolic Panel [facility] 07/24 20:55 Order name: Comprehensive Metabolic Panel [facility] 07/24 20:55 Order name: Troponin I [facility] 07/24 20:55 Order name: Troponin I [facility] 07/24 20:55 Order name: Troponin I [facility] 07/24 17:18 Order name: O2 Sat Monitoring; Complete Time: 17:20 patricia Administered Medications: 19:44 Drug: Rocephin 1 grams Route: IV; Rate: per protocol; Site: right upper arm; ea 21:53 Follow up: Response: No adverse reaction; IV Status: Completed infusion ea 22:04 Not Given (Physician Discretion): NS 0.9% 1000 ml IV at 75 ml/hr continuous ea Disposition: 07/24/19 17:39 Hospitalization ordered by Eladio Rios for Inpatient Admission. Preliminary diagnosis are Weakness - left arm tingling, Other cirrhosis of liver, Anemia, unspecified, Unspecified combined systolic (congestive) and diastolic (congestive) heart failure - mild, Ascites, Urinary tract infection, site not specified. - Bed requested for Telemetry/MedSurg (Inpatient). - Status is Inpatient Admission. ea - Condition is Stable. - Problem is new. - Symptoms have improved. UTI on Admission? Yes Signatures: Dispatcher [employer] EDMS eKven Sousa MD MD cha Leal, Jahala, RN KULDIP jl7 Melissa Brothers RN RN ea [place], MyKena mw2 Corrections: (The following items were deleted from the chart) 18:23 17:39 Hospitalization Ordered by Eladio Rios MD for Observation. Preliminary diagnosis patricia is Weakness - left arm tingling; Other cirrhosis of liver. Bed requested for Telemetry/MedSurg (observation). Status is Observation. Condition is Stable. Problem is new. Symptoms have improved. UTI on Admission? No. patricia 18:26 18:23 07/24/2019 17:39 Hospitalization Ordered by Eladio Rios MD for Observation. patricia Preliminary diagnosis is Weakness - left arm tingling; Other cirrhosis of liver; Anemia, unspecified; Unspecified combined systolic (congestive) and diastolic (congestive) heart failure - mild; Ascites. Bed requested for Telemetry/MedSurg (observation). Status is Observation. Condition is Stable. Problem is new. Symptoms have improved. UTI on Admission? No. patricia 18:57 18:26 07/24/2019 17:39 Hospitalization Ordered by Eladio Rios MD for Inpatient patricia Admission. Preliminary diagnosis is Weakness - left arm tingling; Other cirrhosis of liver; Anemia, unspecified; Unspecified combined systolic (congestive) and diastolic (congestive) heart failure - mild; Ascites. Bed requested for Telemetry/MedSurg (Inpatient). Status is Inpatient Admission. Condition is Stable. Problem is new. Symptoms have improved. UTI on Admission? No. patricia 18:57 18:57 07/24/2019 17:39 Hospitalization Ordered by Eladio Rios MD for Inpatient patricia Admission. Preliminary diagnosis is Weakness - left arm tingling; Other cirrhosis of liver; Anemia, unspecified; Unspecified combined systolic (congestive) and diastolic (congestive) heart failure - mild; Ascites; Urinary tract infection, site not specified. Bed requested for Telemetry/MedSurg (Inpatient). Status is Inpatient Admission. Condition is Stable. Problem is new. Symptoms have improved. UTI on Admission? No. patricia 21:43 18:57 07/24/2019 17:39 Hospitalization Ordered by Eladio Rios MD for Inpatient mw2 Admission. Preliminary diagnosis is Weakness - left arm tingling; Other cirrhosis of liver; Anemia, unspecified; Unspecified combined systolic (congestive) and diastolic (congestive) heart failure - mild; Ascites; Urinary tract infection, site not specified. Bed requested for Telemetry/MedSurg (Inpatient). Status is Inpatient Admission. Condition is Stable. Problem is new. Symptoms have improved. UTI on Admission? Yes. patricia 22:31 21:43 07/24/2019 17:39 Hospitalization Ordered by Eladio Rios MD for Inpatient ea Admission. Preliminary diagnosis is Weakness - left arm tingling; Other cirrhosis of liver; Anemia, unspecified; Unspecified combined systolic (congestive) and diastolic (congestive) heart failure - mild; Ascites; Urinary tract infection, site not specified. Bed requested for Telemetry/MedSurg (Inpatient). Status is Inpatient Admission. Condition is Stable. Problem is new. Symptoms have improved. UTI on Admission? Yes. mw2
--- NOTE | 2019-07-24 17:43 | RAD REPORT ---
EXAM DESCRIPTION: CT - Head Brain Wo Cont - 07/24/2019 5:34 pm CLINICAL HISTORY: DIZZINESS Headache, drowsiness COMPARISON: Head Brain Wo Cont dated 01/23/2019; Head Brain Wo Cont dated 12/21/2018 TECHNIQUE: All CT scans are performed using dose optimization technique as appropriate and may inclu de automated exposure control or mA/KV adjustment according to patient size. FINDINGS: No intracranial hemorrhage, hydrocephalus or extra-axial fluid collection.Mild generalized brain atrophy is present with mild periventricular and deep white matter chronic microvascular ische dameon changes.No areas of brain edema or evidence of midline shift. The paranasal sinuses and mastoids are clear. The calvarium is intact. IMPRESSION: No acute intracranial abnormality.
--- NOTE | 2019-07-24 17:50 | RAD REPORT ---
EXAM DESCRIPTION: RAD - Chest Single View - 07/24/2019 5:39 pm CLINICAL HISTORY: COUGH Chest pain. COMPARISON: Chest Single View dated 07/21/2019; Chest Single View dated 05/31/2019; Chest Single View dated 05/30/2019; Chest Single View dated 01/23/2019 FINDINGS: Portable technique limits examination quality. Mild bilateral interstitial prominence is seen. Small pleural effusions. The heart is normal in size. Right PICC line has tip in the SVC. IMPRESSION: Mild interstitial pulmonary edema likely present.
[2019-07-24 18:00] LABS: Absolute Lymphocytes (CBC) 0.4 K/uL (0.7-4.9); Basophils % 0.4 % (0-1.3); Hematocrit 27.5 % (36.0-45.0); Lymphocytes % 12.3 % (15.3-44.8); MPV 7.5 fL (7.6-11.3); RBC Red Blood Cell Count 2.93 M/uL (3.86-4.86)
[2019-07-24 18:04] LABS: Protime INR 1.49
[2019-07-24 18:21] LABS: ALT/SGPT 11 U/L (12-78); AST/SGOT 17 U/L (15-37); Albumin 3.7 g/dL (3.4-5.0); Alkaline Phosphatase 74 U/L (45-117); BUN Blood Urea Nitrogen 18 mg/dL (7-18); Bicarbonate 28 mmol/L (21-32); Bilirubin Direct 0.6 mg/dL (0-0.2); Bilirubin Total 1.1 mg/dL (0.2-1.0); Glucose Level 113 mg/dL (74-106); Lipase 170 U/L (73-393); Magnesium 2.3 mg/dL (1.8-2.4); NT PRO-BNP 289 pg/mL (<450); Protein, Total 7.5 g/dL (6.4-8.2); Sodium Level 138 mmol/L (136-145); Troponin (Emerg Dept Use Only) < 0.02 ng/mL (0.0-0.045)
[2019-07-24 18:21] LABS: Urine Blood TRACE (NEG); Urine Glucose NEGATIVE (NEG); Urine Protein 1+ (NEG); Urine Specific Gravity 1.015 (1.005-1.030)
[2019-07-24] MEDS ORDERED: CEFTRIAXONE/SWI 1gm 1 GM/10 ML SYR ONE (19:11)
[2019-07-24] MEDS ORDERED: ALBUTEROL 2.5 MG/3 ML NEB SOL NEB PRN (20:46)
[2019-07-24] MEDS ORDERED: ONDANSETRON 4 MG/2 ML VIAL IV PRN (20:46)
[2019-07-24] MEDS: NITROGLYCERIN 0.1 MG/HR (2.5 MG) PATCH TD SCH (20:50)
[2019-07-24] MEDS ORDERED: MAGNESIUM OXIDE 250 MG PO SCH (21:00)
[2019-07-24] MEDS ORDERED: Rifaximin 550 MG Tab PO SCH (21:00)
[2019-07-24] MEDS: ENSURE ENLIVE 237 ML CAN PO SCH (21:00)
[2019-07-24] MEDS ORDERED: HOME MED 1 EA UNK (Omeprazole [Prilosec] 40 MG) PO SCH (21:00)
[2019-07-24 23:20] VITALS: BMI 23.3
[2019-07-24] MEDS: GABAPENTIN 300 MG CAP PO SCH (23:58)
[2019-07-24] MEDS: MIDODRINE HCL 5 MG TABLET PO SCH (23:58)
[2019-07-24] MEDS: ALBUMIN HUMAN 25% 100 ML IV SCH (23:59)
[2019-07-24] MEDS: LACTULOSE 20 GM/30 ML UCUP PO SCH (23:59)
[2019-07-25] MEDS: FUROSEMIDE 40 MG/4 ML VIAL IV SCH ×3 (01:24→16:43)
[2019-07-25 04:27] LABS: Absolute Lymphocytes (CBC) 0.4 K/uL (0.7-4.9); Basophils % 0.7 % (0-1.3); Hematocrit 23.8 % (36.0-45.0); Lymphocytes % 15.9 % (15.3-44.8); MPV 8.6 fL (7.6-11.3); RBC Red Blood Cell Count 2.56 M/uL (3.86-4.86)
[2019-07-25 04:33] LABS: Albumin 3.5 g/dL (3.4-5.0); Bilirubin Total 1.1 mg/dL (0.2-1.0); Potassium 3.6 mmol/L (3.5-5.1)
--- NOTE | 2019-07-25 05:31 | EKG ---
Test Date: 2019-07-24 Test Time: 16:56:31 Polisher Apprentice: PRIETO MEASUREMENT RESULTS: Intervals: Rate: 97 [place]: 172 QRSD: 74 QT: 370 QTc: 469 [place]: P: 33 [place]: 172 QRS: 23 T: 36 INTERPRETIVE STATEMENTS: Normal sinus rhythm Normal ECG Compared to ECG 07/21/2019 09:31:55 No significant changes Electronically Signed On 07-25-19 05:30:16 WEB CONTENT EXECUTIVE by Bravo Gonzalez
[2019-07-25 05:39] LABS: Blood Morphology Comment NOT SEEN (NOT SEEN); Platelet Estimate DECR; Urine White Blood Cell Casts OK
--- NOTE | 2019-07-25 07:20 | HP ---
Date of Admission: 07/24/2019 Presenting Complaint: Left arm tingling and numbness and substernal chest pain. History Of Present Illness: Ms. Whitney iVllalta is an 88-year-old female with past medical hi story of hepatitis C, liver cirrhosis with recurrent chronic ascites on every weekly paracentesis. L ast paracentesis was 4 L removed 3 days ago. She also received every weekly albumin dosing. She rec eived albumin earlier today, but on returned back home, she developed numbness and tingling in her le ft arm associated with dizziness, feeling of fainting. She admitted to transient nausea, but denies any vomiting. She subsequently developed a chest pressure like symptoms. She denies any radiation o f the chest pain. She is unable to really quantify the intensity of the pain. She states she has si milar feelings about 10 years ago where she had a cardiac cath with finding of normal coronary vessel s. It was subsequently managed with as needed . She admits to transient intermittent low blood pressure with diuretic used for management of ascites. She was on midodrine for a while, but l ater taken off after her blood pressure stabilized. As per her son who is at the bedside helping wit h history. Her blood pressure normally range in the 90s without having any symptoms. She continues to have generalized body swelling and received paracentesis weekly. Past Medical History: Significant for hepatitis C infection, liver cirrhosis, generalized atheroscle rosis, lower extremity edema, poorly controlled ascites, history of chronic neuropathy. Home Medications: Xifaxan, omeprazole, magnesium oxide, lactulose, gabapentin, docusate, Zithromax d aily, GABAdone capsule, multi-supplement capsule. Allergies: ADHESIVE TAPE AND MORPHINE. Family History: Noncontributory in this 88-year-old female. Social History: No history of alcohol use or tobacco use. She denies any illicit drug use. She res ides at home with her spouse. She ambulates at baseline with aid of a walker. Advance Directive: Patient has a living will and reiterates, she wants DNR. Review of Systems: Patient is a poor historian, but denies all other systems reviewed x10, except as noted in HPI. Physical Examination: Current Vital Signs: Blood pressure ranging from 94/56 to 92/51 with heart rate of 96-101, respirato ry rate of 22, O2 saturations 99% on room air. General: Chronically ill-looking female. HEENT: Head is atraumatic, normocephalic. Pupils equal and reactive to light, anicteric. Dry oral mucosa. Neck: No JVD. No carotid bruit. Respiratory: Bibasilar crepitations noted. No wheeze. Cardiovascular: S1, S2. Tachycardiac. GI: Distended abdomen. Positive ascites by shifting dullness. Bowel sounds positive in all 4 quadr ants. Rectal: Deferred. Extremities: 1 to 2+ pedal edema noted. Tenderness over lower extremity on palpation. Neurologic: Patient is alert, awake, and conversant. Laboratory Data: WBC 3.1, hemoglobin 9.3, platelets 81. INR of 1.5. PT 17. Sodium 138, potassium 4.0, creatinine 0.9, BUN 18, magnesium 2.3, glucose 113, calcium 8.4. AST and ALT normal. Alkaline phosphatase normal. Troponin of less than 0.02. ProBNP 289. Albumin of 3.7, TSH of 3.8, free T4 of 0.9. Urinalysis was unremarkable except for trace blood with . Chest x-ray shows mild pulmonary edema with bilateral pleural effusions. Head CT shows no acute intr acranial abnormalities. Impression: 1.Atypical chest pain. 2.Left arm numbness, resolving. 3.Pulmonary edema with generalized fluid overload. 4.Liver cirrhosis with recurrent ascites. 5.Chronic hypotension, due to liver cirrhosis. Plan: We will admit patient into observation. We will manage the patient for the followin.Atypical chest pain. Chest pain appears to have resolved. EKG shows normal sinus rhythm and unre markable for acute coronary event. We will follow serial set of cardiac enzyme, low likelihood of si gnificant acute coronary syndrome at this time. We will go ahead and place the patient on nitroglyce rine patch. If negative cardiac enzyme in a.m., we will remove nitroglycerine patch. 2.Chronic hypotension. We will restart patient on midodrine. We will also dose albumin with Lasix to aid diuresis. Possibly need for discharge home with midodrine. I discussed with family, but adams ly a bit hesitant for outpatient need for midodrine at this time. 3.Fluid overload with ascites and bilateral pleural effusion. Follow with diuresis while inpatient. Monitor blood pressure blood pressure to remain stable with midodrine use. 4.Liver cirrhosis. Continue Xifaxan and lactulose. 5.Deep vein thrombosis prophylaxis. Subcutaneous heparin. 6.Anemia, chronic. Follow annual profile. 7.Advance directive. Patient is DNR. 8.Left arm numbness, unclear etiology since magnesium is normal. We will monitor. Symptoms appear resolving at this time. Total time spent review of record, discussed with patient, and evaluation greater than 60 minutes. EO/MODL Voice ID: [id number]
[2019-07-25] MEDS ORDERED: HOME MED 1 EA UNK PO SCH (09:00)
[2019-07-25] MEDS: NITROGLYCERIN 0.1 MG/HR (2.5 MG) PATCH TD SCH (09:00)
[2019-07-25] MEDS: ALBUMIN HUMAN 25% 100 ML IV SCH ×2 (09:35→21:15)
[2019-07-25] MEDS: MIDODRINE HCL 5 MG TABLET PO SCH ×3 (09:39→21:20)
[2019-07-25] MEDS: GABAPENTIN 300 MG CAP PO SCH ×3 (09:40→21:19)
[2019-07-25] MEDS: LACTULOSE 20 GM/30 ML UCUP PO SCH ×2 (09:40→21:20)
[2019-07-25] MEDS: MAGNESIUM OXIDE 400 MG TAB PO SCH ×2 (09:40→21:19)
[2019-07-25] MEDS: PANTOPRAZOLE 40MG TABLET PO SCH ×2 (09:40→21:19)
[2019-07-25] MEDS: ENSURE ENLIVE 237 ML CAN PO SCH ×2 (09:45→21:00)
[2019-07-25] MEDS: HEPARIN 5000 UNIT/ML 1 ML VIAL SQ SCH ×3 (09:46→16:44)
--- NOTE | 2019-07-25 12:22 | RAD REPORT ---
EXAM DESCRIPTION: MRI - MRA Neck W/Wo Cont - 07/25/2019 12:12 pm CLINICAL HISTORY: Left extremity CVA, left-sided numbness COMPARISON: CT head July 24, MRA neck November 2018 TECHNIQUE: MR angiography of the cervical vasculature performed. Coronal imaging plane acquisition u tilized. A 13 MultiHance contrast volume was utilized. Coronal reformatted images were generated and reviewed. Vertical axis 3D rotational projections obtained using maximum intensity projection protoco l. FINDINGS: Aortic arch is 3 vessel configuration with no origins stenosis. Left vertebral artery orig in assessment is limited but grossly unremarkable. Vertebral arteries are codominant with no dissecti on, stenosis or acute finding. Artifact limits the proximal left common carotid assessment. Stenosis or dissection are doubtful. Midportion of the right common carotid artery is limited by similar artif act. No carotid bulb significant disease. The bilateral internal carotid arteries show no stenosis or dissection from origin to skullbase. IMPRESSION: No significant findings in the MRA neck assessment. Findings are similar to November 2018.
--- NOTE | 2019-07-25 12:29 | RAD REPORT ---
EXAM DESCRIPTION: MRI - Brain W/Wo Cont - 07/25/2019 12:12 pm CLINICAL HISTORY: Left-sided CVA, left extremity numbness and weakness COMPARISON: CT head July 24 TECHNIQUE: Sagittal and axial T1-weighted images were obtained. Axial PD/heavily T2-weighted and T2- FLAIR images were obtained along with axial DWI/ADC mapping sequences. Coronal heavily T2 weighted s equence obtained. Axial and coronal post-contrast T1-weighted images were also obtained. A 13 ml Mul tihance contrast following utilized. FINDINGS: No intracranial hemorrhage, mass or acute infarction. There is no edema or shift of midli ne structures. No extra-axial fluid collections. Rene-matter/white matter junction is preserved. Sig nal voids are seen as a normal finding in the major intracranial vessels. Patient has mild to moderat e atrophy and chronic ischemic changes. Ventricles are in proportion to volume loss. Cerebellar atrop hy changes are also present. Post-contrast images show normal enhancement. No dural thickening. Mastoid air cells and paranasal sinuses are clear. No globe or orbital content abnormality. No sella or supra sella finding. IMPRESSION: No acute infarction changes are evident. No hemorrhage, mass or acute intracranial findi ng. Patient has mild to moderate for age atrophy and chronic ischemic change. Ventricles are in proportio n to volume loss.
--- NOTE | 2019-07-25 12:31 | RAD REPORT ---
EXAM DESCRIPTION: MRI - MRA Head Wo Cont - 07/25/2019 12:12 pm CLINICAL HISTORY: Left-sided weakness, stroke-like symptoms COMPARISON: CT head July 24, MR brain July 25 TECHNIQUE: Axial and coronal 3D [id number] image acquisition was performed. 3D rotational images were generated with source and reconstruction images reviewed. Horizontal and vertical axis rotation al views generated using MIP protocol. FINDINGS: Mild tortuosity of the vertebrobasilar vasculature. No dissection, stenosis or significant finding. Posterior cerebral arteries show no significant atherosclerotic change. Distal internal carotid artery's from skullbase determination show no stenosis, dissection or suspici ous finding. The anterior cerebral and middle cerebral arteries also without significant atherosclero tic change. No vasculitis or diffuse vascular process. No aneurysm or vascular malformation. IMPRESSION: MRA Head imaging shows no significant intracranial atherosclerotic change. No significan t finding noted.
[2019-07-25] MEDS ORDERED: FERROUS SULFATE 325 MG TAB PO SCH (17:00)
--- NOTE | 2019-07-25 17:23 | PN ---
Date of Progress Note: 07/25/2019 History: Patient was seen and examined. Chart reviewed and case discussed with RN. Patient still c omplaining of some left arm weakness. States it is slightly improved. No chest pain. Code Status: Do not resuscitate. Physical Examination: Vital Signs: Temperature 99, heart rate 86, blood pressure 106/53, respirations 18, O2 93% on room a ir. General: Awake, alert, oriented x3. Elderly female, appears in some mild distress. CV: S1, S2. Regular rate and rhythm. Peripheral pulses are weak. Respiratory: Diminished breath sounds at the bases. Gastrointestinal: Abdomen is soft. Mild ascites. Positive bowel sounds. No guarding or rigidity. Extremities: No clubbing or cyanosis. Pedal edema present. Neuro: Cranial nerves 2 through 12 intact grossly. Patient has some drift of the left upper extremi ty. Otherwise, strength is symmetric in the bilateral lower extremities. Speech is normal. No faci al asymmetry. Laboratory Data: Sodium 140, potassium 3.6, chloride 108, CO2 30, BUN 20, creatinine 1, glucose 118, calcium 8.3. Troponin less than 0.02 x3. WBC 2.6, H and H 8.2 and 23.8, platelets 84, neutrophils 66%. Urine culture shows no growth to date. Imaging Studies: MRI of the brain shows no acute infarction, no hemorrhage mass or acute intracrania l finding, oxdo-bd-xfkxnolf age for atrophy and chronic ischemic change. MRA neck shows no significa nt findings. MRA brain shows no significant intracranial as sclerotic change. No significant findin g noted. Assessment And Plan: 88-year-old female with: 1.Left arm numbness, weakness, improving. MRA and MRI are negative. No acute CVA. Nephrology has been consulted. 2.Atypical chest pain. Cardiac enzymes are negative. No further chest pain. 3.Pulmonary edema with fluid overload, likely related to liver cirrhosis. 4.Liver cirrhosis with recurrent ascites. Patient is scheduled for paracentesis for tomorrow. We u sually gets on Fridays; however, due to the holiday weekend, we will need to be done tomorrow. We wi ll schedule a paracentesis if still in the hospital. 5.Chronic hypotension due to liver cirrhosis. Patient is on midodrine. Plan DC if cleared by Neuro logy and Cardiology. 6.Thrombocytopenia, likely secondary to liver cirrhosis. SA/MODL Voice ID: [id number] Report ID: [id number]
[2019-07-25] MEDS ORDERED: HOME MED 1 EA UNK (Omeprazole [Omeprazole] 20 MG) PO SCH (21:00)
[2019-07-25] MEDS: XIFAXAN (RIFAXIMIN) 550 MG TABLETS PO SCH (21:21)
--- NOTE | 2019-07-26 00:02 | CON ---
Reason For Consultation: Consultation called because of left arm tingling and possible stroke. History Of Present Illness: Ms. Villalta is an 88-year-old patient with chronic cirrhosis and multiple episodes of paracentesis because of accumulated abdominal ascites. The patient developed tingling i n the left arm without weakness but thought perhaps there was some numbness involving the left arm, f orearm, and hand. The symptoms occurred off and on over about 2 days and did resolve actually prior to my evaluating the patient. She had a brain MRI stroke protocol that showed no evidence of acute i schemic or hemorrhagic stroke. The magnetic resonance angiogram of her head and neck showed no signi ficant stenosis in those regions. She has paracentesis done weekly where they removed 4 to 5 L, and she is actually scheduled to have it tomorrow Wednesday as is Thanksgiving. She has no evid ence of an infection. Laboratory Studies: Include chronically low WBCs along with hemoglobin and hematocrit, likely relate d to chronic liver failure and renal issues. She does not have evidence of urinary tract infection, although there is trace esterase, negative nitrites, trace blood, 1+ protein. Microbiology grew less than 10,000 colony-forming units on culture. Past Medical History: Hepatitis C related liver cirrhosis peripheral neuropathy, colon cancer, liver cancer, pneumonia, and stage 3 liver cirrhosis. Allergies: ADHESIVE TAPE AND MORPHINE. Home Medications: Docusate sodium 100 mg at bedtime, ferrous sulfate daily, furosemide 40 mg daily, gabapentin 300 mg 3 times daily, iron supplement 28 mg twice daily, lactulose 20 g twice daily, magne sium oxide 250 mg twice daily, midodrine 5 mg 2 tablets twice daily, omeprazole 40 mg daily, potassiu m chloride 10 mEq twice daily, rifaximin 200 mg twice daily, spironolactone 25 mg twice daily, and red lfamethoxazole/trimethoprim 2 times daily. Family History: Noncontributory. Social History: No alcohol, tobacco, or IV drug use. The patient resides in [facility]. Physical Examination: Vital Signs: Blood pressure 123/56, pulse is 67 to 86, respiratory rate 17 to 20, temperature 98.4, oxygen saturation 94% room air. Weight 140.9 pounds and height 5 feet 5 inches, BMI 23.4. GENERAL: Please note, the patient is a do not resuscitate and that has been noted on the chart. HEENT: She appears normocephalic, atraumatic. Sclerae anicteric. Oropharynx pink and moist. Neck: Supple. Chest: Clear. Heart: Regular. Abdomen: Soft with some distention and fluid wave. Extremities: Mild edema. Neurological: She has no focal weakness in terms of cranial nerves. Motor, she has diffuse weakness in upper and lower extremities. Sensory exam decreased to light touch and temperature in stocking g love fashion in upper and lower extremities. Depressed reflexes in upper and lower extremities. Pat ient has not ambulated at night, but did ambulate earlier with Physical Therapy. No significant atax ia. Assessment: Ms. 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 Brain MRI, MRA all negative for stroke. She does have small vessel ischemic disease. Plan: Continue with management of the ascites as per team. Okay to continue gabapentin for peripher al neuropathy 300 mg 3 times daily. Continue magnesium oxide and albumin as per primary team. Okay to use DVT prophylaxis with heparin 5000 units every 12 hours. The patient may be discharged home and may follow up with Dr. Flannery in 1 month after discharge. LOU/GLYNN Voice ID: [id number] Report ID: [id number]
[2019-07-26] MEDS: HEPARIN 5000 UNIT/ML 1 ML VIAL SQ SCH ×2 (00:10→09:00)
[2019-07-26] MEDS: ENSURE ENLIVE 237 ML CAN PO SCH (09:00)
[2019-07-26] MEDS: FUROSEMIDE 40 MG/4 ML VIAL IV SCH (09:00)
[2019-07-26] MEDS: NITROGLYCERIN 0.1 MG/HR (2.5 MG) PATCH TD SCH (09:00)
[2019-07-26] MEDS: MIDODRINE HCL 5 MG TABLET PO SCH (09:22)
[2019-07-26] MEDS: ALBUMIN HUMAN 25% 100 ML IV SCH (11:21)
[2019-07-26] MEDS: GABAPENTIN 300 MG CAP PO SCH (11:22)
[2019-07-26] MEDS: PANTOPRAZOLE 40MG TABLET PO SCH (11:22)
[2019-07-26] MEDS: MAGNESIUM OXIDE 400 MG TAB PO SCH (11:22)
[2019-07-26] MEDS: XIFAXAN (RIFAXIMIN) 550 MG TABLETS PO SCH (11:23)
[2019-07-26] MEDS: LACTULOSE 20 GM/30 ML UCUP PO SCH (11:25)
--- NOTE | 2019-07-26 11:31 | RAD REPORT ---
EXAM DESCRIPTION: US - Paracentesis Proc Guidance - 07/26/2019 9:45 am CLINICAL HISTORY: Liver disease with ascites FINDINGS: The risks, benefits and alternatives to the procedure were explained to the patient and in formed consent obtained. The skin and subcutaneous tissues were anesthetized with Lidocaine. Under sonographic guidance an 8 F rench catheter was placed into the right lower quadrant. 4 liters of yellow fluid removed The patient experienced no immediate complication. IMPRESSION: Paracentesis
[2019-07-26 13:07] VITALS: BP 111/56; TEMP 98.3
[2019-07-26 15:06] VITALS: O2SAT 93
--- NOTE | 2019-07-26 18:12 | DS ---
Date of Discharge: 07/26/2019 Consultants: Dr. Flannery with Neurology. Admitting Diagnoses: 1.Atypical chest pain. 2.Chronic hypertension. 3.Left arm numbness, tingling. 4.Fluid overload with ascites. 5.Bilateral pleural effusion. 6.Liver cirrhosis. 7.Chronic anemia. Discharge Diagnoses: 1.Left arm numbness, weakness. Cerebrovascular accident ruled out. 2.Atypical chest pain. Acute coronary syndrome ruled out. 3.Pulmonary edema with fluid overload, likely related to liver cirrhosis. 4.Liver cirrhosis with recurrent ascites secondary to hepatitis C, status post paracentesis. 5.Hepatitis C, chronic without coma. 6.Chronic hypotension due to liver cirrhosis. 7.Thrombocytopenia due to hepatitis C and liver cirrhosis. Hospital Course: Patient is an 88-year-old female, who was in her usual state of health, who comes i n with left arm tingling, numbness, and substernal chest pain. Patient was admitted to the hospital for further workup. Patient was ruled out for ACS. Cardiac enzymes were negative. This was likely atypical chest pain. She did, however, report numbness and tingling of her left arm, which may have been exacerbated by her liver cirrhosis or compressive neuropathy per Neurology. Patient was seen by Dr. Flannery. MRI was done to rule out cerebrovascular accident. MRI was negative for any acute ch anges. Patient also underwent paracentesis, which was part of her regular routine due to her chronic liver cirrhosis. Due to the holiday schedule, she was scheduled to have it on Wednesday morning and she was already in the hospital. This was done through the Radiology suite. Patient tolerated the procedure well. Her blood pressure remained stable. Family was hesitant to restart patient on any s ort of diuretics including Lasix or spironolactone. They were concerned about her low blood pressure . They also did not wish to have midodrine started as an outpatient. Patient will remain at risk fo r continued fluid overload. She remains hypotensive, but asymptomatic due to her third spacing. Iza vasquez was then discharged in a stable condition. Activity: As tolerated. Medications: As per medication reconciliation list. Followup: Follow up with primary care physician in 2-3 days. Follow up with Dr. Flannery of Neurolo gy in 2-4 weeks. Return to ER for worsening condition. Diet: Low-sodium, fluid-restricted diet. Physical Examination: General: Awake, alert, oriented x3 elderly female. CV: S1, S2. Respiratory: Moving air well bilaterally, diminished breath sounds at the bases. Gastrointestinal: Abdomen is soft, nontender, nondistended. Positive bowel sounds. Extremities: No clubbing, cyanosis. Trace pedal edema. Neurologic: Nonfocal. SA/MODL Voice ID: [id number] Report ID: [id number]
[2019-07-26] MEDS ORDERED: JUVEN PACKET PO SCH (21:00)
== END 2019-07-26 14:06 | disposition home or self-care (01) ==
LOC: ER 16:31 → ERHOLD 21:03 → 2ND 22:17
PROVIDERS: ADMIT Internal Medicine; ATTEND Internal Medicine
PROC: 0W9G3ZX Drainage of Peritoneal Cavity, Percutaneous Approach, Diagnostic (ICD-10-PCS; principal; 2019-07-26)
DX: R20.0 Anesthesia of skin (principal); R53.1 Weakness; R07.89 Other chest pain; J81.1 Chronic pulmonary edema; K74.60 Unspecified cirrhosis of liver; R18.8 Other ascites; I95.9 Hypotension, unspecified; D64.9 Anemia, unspecified; B18.2 Chronic viral hepatitis C; D69.6 Thrombocytopenia, unspecified
CPT/HCPCS: 96365; 93005; 87088; 85025 ×2; 80048; 36415; 83735; 85610; 80076; 84443; 81003; 84484 ×3; 84439; 83690; 80053; 83880; 70450; 71045; 70553; 70544; 70549; 49083; 51702; 99285; 96366; A9577; J1940 ×3; J1644 ×3; J0696; P9047 ×5; G0378 ×3; 87086

== ENCOUNTER → 2019-08-04 | Day surgery (SDC) | payer OTHER ==
--- OUTSIDE RECORDS SUMMARY | 2019-08-04 07:32 | XMS REPORT ---
:1930 Author Organization [facility] Address [address] [place] [address] [address]. Rivero [address] [place] [address] Care Team Providers Name Role Phone MARY [...] Value Reference Range Comments ALPHA-FETOPROTEIN (BEAKER) (test dywf=2936) 2.9 ng/mL <10.0 HEPATIC FUNCTION [id number] 16:38:00 Test Item Value Reference Range Comments TOTAL PROTEIN (BEAKER) (test jsyj=404) 9.0 gm/dL 6.0-8.3 ALBUMIN (BEAKER) (test jucl=0733) 2.8 g/dL 3.5-5.0 BILIRUBIN TOTAL (BEAKER) (test dwvb=203) 1.2 mg/dL 0.2-1.2 BILIRUBIN DIRECT (BEAKER) (test fhhr=205) 0.7 mg/dL 0.1-0.5 ALKALINE PHOSPHATASE (BEAKER) (test qclt=148) 111 U/L 40-150 AST (SGOT) (BEAKER) (test ylhm=390) 31 U/L 5-34 ALT (SGPT) (BEAKER) (test vfjf=764) 12 U/L 6-55 BASIC METABOLIC [id number] 16:38:00 Test Item Value Reference Range Comments SODIUM (BEAKER) (test 133 meq/L 136-145 jrwd=704) POTASSIUM (BEAKER) (test 4.0 meq/L 3.5-5.1 dzdh=834) CHLORIDE (BEAKER) (test 100 meq/L 98-107 lpbd=721) CO2 (BEAKER) (test 27 meq/L 22-29 mlvu=238) BLOOD UREA NITROGEN 20 mg/dL 7-21 (BEAKER) (test tztv=328) CREATININE (BEAKER) (test 1.07 mg/dL 0.57-1.25 csyj=172) GLUCOSE RANDOM (BEAKER) 71 mg/dL 70-105 (test ivrr=556) CALCIUM (BEAKER) (test 9.4 mg/dL 8.4-10.2 ilmz=610) EGFR (BEAKER) (test 49 mL/min/1.73 sq m ESTIMATED GFR IS NOT yabu=7816) ACCURATE CREATININE CLEARANCE IN PREDICTING GLOMERULAR FILTRATION RATE. ESTIMATED GFR IS NOT APPLICABLE FOR DIALYSIS PATIENTS. [id number] 16:33:00 Test Item Value Reference Range Comments AMMONIA (BEAKER) (test dflg=445) 40 mol/L 18-72 PROTHROMBIN [id number] 16:29:00 Test Item Value Reference Range Comments PROTIME (BEAKER) (test hfco=927) 16.5 seconds 11.7-14.7 INR (BEAKER) (test ilyq=986) 1.3 <=5.9 RECOMMENDED COUMADIN/WARFARIN INR THERAPY RANGESSTANDARD DOSE: 2.0 - 3.0 Includes: PROPHYLAXIS forvenous thrombosis, systemic embolization; TREATMENT for venous thrombosis and/or pulmonary embolus.HIGH RISK: Target INR is 2.5-3.5 for patients with mechanical heart valves.CBC W/PLT COUNT & AUTO [id number] 16:22:00 Test Item Value Reference Range Comments WHITE BLOOD CELL COUNT (BEAKER) (test krag=569) 5.0 K/ L 3.5-10.5 RED BLOOD CELL COUNT (BEAKER) (test mhkw=115) 3.39 M/ L 3.93-5.22 HEMOGLOBIN (BEAKER) (test zaoi=203) 10.7 GM/DL 11.2-15.7 HEMATOCRIT (BEAKER) (test zbvo=271) 33.1 % 34.1-44.9 MEAN CORPUSCULAR VOLUME (BEAKER) (test peui=057) 97.6 fL 79.4-94.8 MEAN CORPUSCULAR HEMOGLOBIN (BEAKER) (test 31.6 pg 25.6-32.2 cryq=092) MEAN CORPUSCULAR HEMOGLOBIN CONC (BEAKER) (test 32.3 GM/DL 32.2-35.5 tegx=945) RED CELL DISTRIBUTION WIDTH (BEAKER) (test 15.0 % 11.7-14.4 btup=881) PLATELET COUNT (BEAKER) (test jflk=195) 98 K/CU MM 150-450 MEAN PLATELET VOLUME (BEAKER) (test osgr=846) 10.0 fL 9.4-12.3 NUCLEATED RED BLOOD CELLS (BEAKER) (test 0 /100 WBC 0-0 fmww=125) NEUTROPHILS RELATIVE PERCENT (BEAKER) (test 71 % nwfh=111) LYMPHOCYTES RELATIVE PERCENT (BEAKER) (test 14 % rrci=623) MONOCYTES RELATIVE PERCENT (BEAKER) (test 12 % iglx=058) EOSINOPHILS RELATIVE PERCENT (BEAKER) (test 2 % myqu=568) BASOPHILS RELATIVE PERCENT (BEAKER) (test 1 % llil=694) NEUTROPHILS ABSOLUTE COUNT (BEAKER) (test 3.51 K/ L 1.56-6.13 gtoh=743) LYMPHOCYTES ABSOLUTE COUNT (BEAKER) (test 0.69 K/ L 1.18-3.74 huvf=345) MONOCYTES ABSOLUTE COUNT (BEAKER) (test yixp=097) 0.62 K/ L 0.24-0.36 EOSINOPHILS ABSOLUTE COUNT (BEAKER) (test 0.10 K/ L 0.04-0.36 pzkk=354) BASOPHILS ABSOLUTE COUNT (BEAKER) (test sgci=273) 0.04 K/ L 0.01-0.08 IMMATURE GRANULOCYTES-RELATIVE PERCENT (BEAKER) 0 % 0-1 (test civp=4764) ALPHA FETOPROTEIN (AFP), TUMOR [id number] 17:15:00 Test Item Value Reference Range Comments ALPHA-FETOPROTEIN (BEAKER) (test qpxy=1123) 3.3 ng/mL <10.0 [id number] 16:34:00 Test Item Value Reference Range Comments MAGNESIUM (BEAKER) (test rhts=741) 1.8 mg/dL 1.6-2.6 BASIC METABOLIC [id number] 16:34:00 Test Item Value Reference Range Comments SODIUM (BEAKER) (test 133 meq/L 136-145 nqtw=895) POTASSIUM (BEAKER) (test 3.9 meq/L 3.5-5.1 ejmv=879) CHLORIDE (BEAKER) (test 99 meq/L 98-107 toon=114) CO2 (BEAKER) (test 25 meq/L 22-29 doec=249) BLOOD UREA NITROGEN 12 mg/dL 7-21 (BEAKER) (test yqbe=261) CREATININE (BEAKER) (test 0.97 mg/dL 0.57-1.25 xctu=713) GLUCOSE RANDOM (BEAKER) 93 mg/dL 70-105 (test ttit=782) CALCIUM (BEAKER) (test 9.0 mg/dL 8.4-10.2 lrow=159) EGFR (BEAKER) (test 54 mL/min/1.73 sq m ESTIMATED GFR IS NOT igye=1212) ACCURATE CREATININE CLEARANCE IN PREDICTING GLOMERULAR FILTRATION RATE. ESTIMATED GFR IS NOT APPLICABLE FOR DIALYSIS PATIENTS. Specimen slightly ictericHEPATIC FUNCTION [id number] 16:34:00 Test Item Value Reference Range Comments TOTAL PROTEIN (BEAKER) (test dkpr=624) 8.0 gm/dL 6.0-8.3 ALBUMIN (BEAKER) (test vnia=8368) 3.0 g/dL 3.5-5.0 BILIRUBIN TOTAL (BEAKER) (test qwsn=829) 1.9 mg/dL 0.2-1.2 BILIRUBIN DIRECT (BEAKER) (test vxid=024) 0.8 mg/dL 0.1-0.5 ALKALINE PHOSPHATASE (BEAKER) (test kwiy=508) 122 U/L 40-150 AST (SGOT) (BEAKER) (test ftbx=847) 30 U/L 5-34 ALT (SGPT) (BEAKER) (test yffn=956) 12 U/L 6-55 Specimen slightly ictericPROTHROMBIN [id number] 16:17:00 Test Item Value Reference Range Comments PROTIME (BEAKER) (test pvko=098) 17.3 seconds 11.7-14.7 INR (BEAKER) (test jntd=644) 1.4 <=5.9 RECOMMENDED COUMADIN/WARFARIN INR THERAPY RANGESSTANDARD DOSE: 2.0 - 3.0 Includes: PROPHYLAXIS forvenous thrombosis, systemic embolization; TREATMENT for venous thrombosis and/or pulmonary embolus.HIGH RISK: Target INR is 2.5-3.5 for patients with mechanical heart valves.CBC W/PLT COUNT & AUTO [id number] 16:17:00 Test Item Value Reference Range Comments WHITE BLOOD CELL COUNT (BEAKER) (test ssaa=273) 5.6 K/ L 3.5-10.5 RED BLOOD CELL COUNT (BEAKER) (test fdhd=208) 3.83 M/ L 3.93-5.22 HEMOGLOBIN (BEAKER) (test rrur=980) 12.0 GM/DL 11.2-15.7 HEMATOCRIT (BEAKER) (test elai=366) 36.8 % 34.1-44.9 MEAN CORPUSCULAR VOLUME (BEAKER) (test aojx=271) 96.1 fL 79.4-94.8 MEAN CORPUSCULAR HEMOGLOBIN (BEAKER) (test 31.3 pg 25.6-32.2 blpn=479) MEAN CORPUSCULAR HEMOGLOBIN CONC (BEAKER) (test 32.6 GM/DL 32.2-35.5 eagd=558) RED CELL DISTRIBUTION WIDTH (BEAKER) (test 15.9 % 11.7-14.4 mirm=465) PLATELET COUNT (BEAKER) (test lnvz=235) 83 K/CU MM 150-450 MEAN PLATELET VOLUME (BEAKER) (test jpda=333) 11.1 fL 9.4-12.3 NUCLEATED RED BLOOD CELLS (BEAKER) (test 0 /100 WBC 0-0 zcqv=408) NEUTROPHILS RELATIVE PERCENT (BEAKER) (test 54 % ztvq=168) LYMPHOCYTES RELATIVE PERCENT (BEAKER) (test 36 % atdi=439) MONOCYTES RELATIVE PERCENT (BEAKER) (test 8 % ecql=065) EOSINOPHILS RELATIVE PERCENT (BEAKER) (test 2 % sdlp=535) BASOPHILS RELATIVE PERCENT (BEAKER) (test 1 % ioum=480) NEUTROPHILS ABSOLUTE COUNT (BEAKER) (test 3.01 K/ L 1.56-6.13 lbny=364) LYMPHOCYTES ABSOLUTE COUNT (BEAKER) (test 1.98 K/ L 1.18-3.74 tzgh=219) MONOCYTES ABSOLUTE COUNT (BEAKER) (test bnfb=222) 0.44 K/ L 0.24-0.36 EOSINOPHILS ABSOLUTE COUNT (BEAKER) (test 0.10 K/ L 0.04-0.36 hibs=718) BASOPHILS ABSOLUTE COUNT (BEAKER) (test iedh=187) 0.04 K/ L 0.01-0.08 IMMATURE GRANULOCYTES-RELATIVE PERCENT (BEAKER) 0 % 0-1 (test pfil=9138) ALPHA FETOPROTEIN (AFP), TUMOR [id number] 16:14:00 Test Item Value Reference Range Comments ALPHA-FETOPROTEIN (BEAKER) (test amwq=4071) 5.7 ng/mL <10.0 Effective 07/17/2014: Reference Range ChangeNew: <10.0 Previous: 0.0- [id number] 15:57:00 Test Item Value Reference Range Comments MAGNESIUM (BEAKER) (test ebtm=248) 1.9 mg/dL 1.6-2.6 BASIC METABOLIC [id number] 15:57:00 Test Item Value Reference Range Comments SODIUM (BEAKER) (test 139 meq/L 136-145 usdx=526) POTASSIUM (BEAKER) (test 4.5 meq/L 3.5-5.1 objy=511) CHLORIDE (BEAKER) (test 105 meq/L 98-107 lfhv=569) CO2 (BEAKER) (test 25 meq/L 22-29 gfsh=828) BLOOD UREA NITROGEN 15 mg/dL 7-21 (BEAKER) (test jlrh=228) CREATININE (BEAKER) (test 0.95 mg/dL 0.57-1.25 dznk=702) GLUCOSE RANDOM (BEAKER) 86 mg/dL 70-105 (test qvmv=112) CALCIUM (BEAKER) (test 9.4 mg/dL 8.4-10.2 hxxd=226) EGFR (BEAKER) (test 56 mL/min/1.73 sq m ESTIMATED GFR IS NOT vmzp=4902) ACCURATE CREATININE CLEARANCE IN PREDICTING GLOMERULAR FILTRATION RATE. ESTIMATED GFR IS NOT APPLICABLE FOR DIALYSIS PATIENTS. Specimen slightly ictericHEPATIC FUNCTION [id number] 15:57:00 Test Item Value Reference Range Comments TOTAL PROTEIN (BEAKER) (test txuc=149) 7.6 gm/dL 6.0-8.3 ALBUMIN (BEAKER) (test elvx=6056) 3.2 g/dL 3.5-5.0 BILIRUBIN TOTAL (BEAKER) (test jycf=493) 1.8 mg/dL 0.2-1.2 BILIRUBIN DIRECT (BEAKER) (test rszt=336) 0.8 mg/dL 0.1-0.5 ALKALINE PHOSPHATASE (BEAKER) (test ryry=243) 112 U/L 40-150 AST (SGOT) (BEAKER) (test igtq=007) 33 U/L 5-34 ALT (SGPT) (BEAKER) (test vsoy=919) 17 U/L 6-55 Specimen slightly ictericPROTHROMBIN [id number] 15:56:00 Test Item Value Reference Range Comments PROTIME (BEAKER) (test yrsv=311) 16.7 seconds 11.7-14.7 INR (BEAKER) (test soxs=781) 1.4 <=5.9 RECOMMENDED COUMADIN/WARFARIN INR THERAPY RANGESSTANDARD DOSE: 2.0 - 3.0 Includes: PROPHYLAXIS forvenous thrombosis, systemic embolization; TREATMENT for venous thrombosis and/or pulmonary embolus.HIGH RISK: Target INR is 2.5-3.5 for patients with mechanical heart valves.CBC W/PLT COUNT & AUTO [id number] 15:56:00 Test Item Value Reference Range Comments WHITE BLOOD CELL COUNT (BEAKER) (test eesf=727) 5.3 K/ L 4.0-10.0 RED BLOOD CELL COUNT (BEAKER) (test ylqh=844) 4.21 M/ L 4.00-5.00 HEMOGLOBIN (BEAKER) (test txlq=981) 14.1 GM/DL 12.0-15.0 HEMATOCRIT (BEAKER) (test xxpg=983) 41.7 % 36.0-45.0 MEAN CORPUSCULAR VOLUME (BEAKER) (test huml=372) 99.1 fL 82.0-99.0 MEAN CORPUSCULAR HEMOGLOBIN (BEAKER) (test 33.4 pg 27.0-33.0 dxlo=359) MEAN CORPUSCULAR HEMOGLOBIN CONC (BEAKER) (test 33.7 GM/DL 32.0-36.0 zovz=902) RED CELL DISTRIBUTION WIDTH (BEAKER) (test 13.2 % 10.3-14.2 uzdk=732) PLATELET COUNT (BEAKER) (test iomd=631) 77 K/CU MM 150-430 MEAN PLATELET VOLUME (BEAKER) (test klhv=244) 8.4 fL 6.5-10.5 NUCLEATED RED BLOOD CELLS (BEAKER) (test 0 /100 WBC 0-0 igwt=471) NEUTROPHILS RELATIVE PERCENT (BEAKER) (test 54 % ndus=417) LYMPHOCYTES RELATIVE PERCENT (BEAKER) (test 33 % mfbk=805) MONOCYTES RELATIVE PERCENT (BEAKER) (test 10 % jvjb=481) EOSINOPHILS RELATIVE PERCENT (BEAKER) (test 3 % gvbg=424) BASOPHILS RELATIVE PERCENT (BEAKER) (test 0 % ralu=126) NEUTROPHILS ABSOLUTE COUNT (BEAKER) (test 2.86 K/ L 1.80-8.00 ller=111) LYMPHOCYTES ABSOLUTE COUNT (BEAKER) (test 1.77 K/ L 1.48-4.50 pula=430) MONOCYTES ABSOLUTE COUNT (BEAKER) (test imdl=212) 0.56 K/ L 0.00-1.30 EOSINOPHILS ABSOLUTE COUNT (BEAKER) (test 0.13 K/ L 0.00-0.50 lgrk=644) BASOPHILS ABSOLUTE COUNT (BEAKER) (test qbcj=505) 0.02 K/ L 0.00-0.20 [id number] 11:05:00 Test Item Value Reference Range Comments POC-CREATININE (BEAKER) 0.9 mg/dL 0.6-1.3 TESTED AT [facility] [address] [facility] (test ewla=0139) [facility] [address] POC-EGFR (BEAKER) (test 59 mL/min/1.73M2 xcvc=4934)
[2019-08-04 08:18] LABS: MPV 8.2 fL (7.6-11.3)
[2019-08-04 08:24] LABS: Protime INR 1.55
[2019-08-04 08:32] VITALS: BP 114/61; TEMP 98.9; O2SAT 97
[2019-08-04 08:33] VITALS: BMI 21.8
[2019-08-04 10:01] LABS: Platelet Estimate DECR
--- NOTE | 2019-08-04 10:14 | RAD REPORT ---
EXAM DESCRIPTION: US - Paracentesis Proc Guidance - 08/04/2019 10:03 am CLINICAL HISTORY: ASCITES Ascites COMPARISON: Paracentesis Proc Guidance dated 07/26/2019 FINDINGS: Informed consent was obtained and time-out was performed. Patient's abdomen was prepped and draped in the usual sterile fashion. 1% lidocaine was used for loca l anesthetic purposes. A small skin incision was made. A paracentesis catheter was guided into the peroneal cavity under son ographic guidance. A small amount of fluid was sent for requested lab studies. 4 liter volume paracentesis was then perf ormed. The patient tolerated the procedure well. Patient was administered IV albumin per referring physician protocol following the procedure. IMPRESSION: Successful ultrasound-guided paracentesis.
[2019-08-04 10:46] LABS: Body Fluid WBC 199 /mm^3
[2019-08-04 12:22] LABS: Appearance CLEAR (CLEAR); Body Fluid Source PERITONEAL; Color of fluid Yellow (COLORLESS)
== END ==
LOC: DS 07:28
PROVIDERS: ATTEND Internal Medicine Gastroenterology
DX: R18.8 Other ascites (principal); K76.0 Fatty (change of) liver, not elsewhere classified; K72.90 Hepatic failure, unspecified without coma; K74.60 Unspecified cirrhosis of liver; R60.0 Localized edema; K30 Functional dyspepsia; L25.9 Unspecified contact dermatitis, unspecified cause
CPT/HCPCS: 36415; 89050; 85049; 85610; 85730; 96365; 49083; P9047

== ENCOUNTER 2019-08-11 07:24 | Day surgery (SDC) | payer OTHER ==
--- OUTSIDE RECORDS SUMMARY | 2019-08-11 07:27 | XMS REPORT ---
:1930 Author Organization [facility] Address [address] [place] [address] [address]. [address] [place] [address] Care Team Providers Name Role Phone MARY [...] Value Reference Range Comments ALPHA-FETOPROTEIN (BEAKER) (test pclq=7360) 2.9 ng/mL <10.0 HEPATIC FUNCTION [id number] 16:38:00 Test Item Value Reference Range Comments TOTAL PROTEIN (BEAKER) (test fuxq=429) 9.0 gm/dL 6.0-8.3 ALBUMIN (BEAKER) (test sklp=8098) 2.8 g/dL 3.5-5.0 BILIRUBIN TOTAL (BEAKER) (test mjvp=744) 1.2 mg/dL 0.2-1.2 BILIRUBIN DIRECT (BEAKER) (test wsti=503) 0.7 mg/dL 0.1-0.5 ALKALINE PHOSPHATASE (BEAKER) (test jnao=390) 111 U/L 40-150 AST (SGOT) (BEAKER) (test eaki=700) 31 U/L 5-34 ALT (SGPT) (BEAKER) (test podu=781) 12 U/L 6-55 BASIC METABOLIC [id number] 16:38:00 Test Item Value Reference Range Comments SODIUM (BEAKER) (test 133 meq/L 136-145 klpi=472) POTASSIUM (BEAKER) (test 4.0 meq/L 3.5-5.1 sjva=658) CHLORIDE (BEAKER) (test 100 meq/L 98-107 eycp=636) CO2 (BEAKER) (test 27 meq/L 22-29 qvxb=064) BLOOD UREA NITROGEN 20 mg/dL 7-21 (BEAKER) (test anqd=203) CREATININE (BEAKER) (test 1.07 mg/dL 0.57-1.25 zwpu=267) GLUCOSE RANDOM (BEAKER) 71 mg/dL 70-105 (test miar=943) CALCIUM (BEAKER) (test 9.4 mg/dL 8.4-10.2 inwz=608) EGFR (BEAKER) (test 49 mL/min/1.73 sq m ESTIMATED GFR IS NOT lirt=2580) ACCURATE CREATININE CLEARANCE IN PREDICTING GLOMERULAR FILTRATION RATE. ESTIMATED GFR IS NOT APPLICABLE FOR DIALYSIS PATIENTS. [id number] 16:33:00 Test Item Value Reference Range Comments AMMONIA (BEAKER) (test vsij=648) 40 mol/L 18-72 PROTHROMBIN [id number] 16:29:00 Test Item Value Reference Range Comments PROTIME (BEAKER) (test gopg=126) 16.5 seconds 11.7-14.7 INR (BEAKER) (test yhcp=523) 1.3 <=5.9 RECOMMENDED COUMADIN/WARFARIN INR THERAPY RANGESSTANDARD DOSE: 2.0 - 3.0 Includes: PROPHYLAXIS forvenous thrombosis, systemic embolization; TREATMENT for venous thrombosis and/or pulmonary embolus.HIGH RISK: Target INR is 2.5-3.5 for patients with mechanical heart valves.CBC W/PLT COUNT & AUTO [id number] 16:22:00 Test Item Value Reference Range Comments WHITE BLOOD CELL COUNT (BEAKER) (test mctq=998) 5.0 K/ L 3.5-10.5 RED BLOOD CELL COUNT (BEAKER) (test elme=504) 3.39 M/ L 3.93-5.22 HEMOGLOBIN (BEAKER) (test enyn=997) 10.7 GM/DL 11.2-15.7 HEMATOCRIT (BEAKER) (test uxek=600) 33.1 % 34.1-44.9 MEAN CORPUSCULAR VOLUME (BEAKER) (test xfby=969) 97.6 fL 79.4-94.8 MEAN CORPUSCULAR HEMOGLOBIN (BEAKER) (test 31.6 pg 25.6-32.2 ases=422) MEAN CORPUSCULAR HEMOGLOBIN CONC (BEAKER) (test 32.3 GM/DL 32.2-35.5 bvxz=697) RED CELL DISTRIBUTION WIDTH (BEAKER) (test 15.0 % 11.7-14.4 jvum=595) PLATELET COUNT (BEAKER) (test mkzk=497) 98 K/CU MM 150-450 MEAN PLATELET VOLUME (BEAKER) (test cvlr=805) 10.0 fL 9.4-12.3 NUCLEATED RED BLOOD CELLS (BEAKER) (test 0 /100 WBC 0-0 lhdr=728) NEUTROPHILS RELATIVE PERCENT (BEAKER) (test 71 % nklm=868) LYMPHOCYTES RELATIVE PERCENT (BEAKER) (test 14 % glto=374) MONOCYTES RELATIVE PERCENT (BEAKER) (test 12 % zwsw=330) EOSINOPHILS RELATIVE PERCENT (BEAKER) (test 2 % wqin=687) BASOPHILS RELATIVE PERCENT (BEAKER) (test 1 % ekrs=436) NEUTROPHILS ABSOLUTE COUNT (BEAKER) (test 3.51 K/ L 1.56-6.13 engn=720) LYMPHOCYTES ABSOLUTE COUNT (BEAKER) (test 0.69 K/ L 1.18-3.74 wncc=138) MONOCYTES ABSOLUTE COUNT (BEAKER) (test swub=646) 0.62 K/ L 0.24-0.36 EOSINOPHILS ABSOLUTE COUNT (BEAKER) (test 0.10 K/ L 0.04-0.36 fpmd=028) BASOPHILS ABSOLUTE COUNT (BEAKER) (test fbbs=350) 0.04 K/ L 0.01-0.08 IMMATURE GRANULOCYTES-RELATIVE PERCENT (BEAKER) 0 % 0-1 (test nxvq=8997) ALPHA FETOPROTEIN (AFP), TUMOR [id number] 17:15:00 Test Item Value Reference Range Comments ALPHA-FETOPROTEIN (BEAKER) (test cljy=7744) 3.3 ng/mL <10.0 [id number] 16:34:00 Test Item Value Reference Range Comments MAGNESIUM (BEAKER) (test ahxe=990) 1.8 mg/dL 1.6-2.6 BASIC METABOLIC [id number] 16:34:00 Test Item Value Reference Range Comments SODIUM (BEAKER) (test 133 meq/L 136-145 qquv=691) POTASSIUM (BEAKER) (test 3.9 meq/L 3.5-5.1 szuf=469) CHLORIDE (BEAKER) (test 99 meq/L 98-107 oucy=896) CO2 (BEAKER) (test 25 meq/L 22-29 vamu=505) BLOOD UREA NITROGEN 12 mg/dL 7-21 (BEAKER) (test rirs=598) CREATININE (BEAKER) (test 0.97 mg/dL 0.57-1.25 gglh=154) GLUCOSE RANDOM (BEAKER) 93 mg/dL 70-105 (test szpy=799) CALCIUM (BEAKER) (test 9.0 mg/dL 8.4-10.2 livh=793) EGFR (BEAKER) (test 54 mL/min/1.73 sq m ESTIMATED GFR IS NOT cqmh=7856) ACCURATE CREATININE CLEARANCE IN PREDICTING GLOMERULAR FILTRATION RATE. ESTIMATED GFR IS NOT APPLICABLE FOR DIALYSIS PATIENTS. Specimen slightly ictericHEPATIC FUNCTION [id number] 16:34:00 Test Item Value Reference Range Comments TOTAL PROTEIN (BEAKER) (test brgm=749) 8.0 gm/dL 6.0-8.3 ALBUMIN (BEAKER) (test bfpt=0313) 3.0 g/dL 3.5-5.0 BILIRUBIN TOTAL (BEAKER) (test ilfy=068) 1.9 mg/dL 0.2-1.2 BILIRUBIN DIRECT (BEAKER) (test manj=104) 0.8 mg/dL 0.1-0.5 ALKALINE PHOSPHATASE (BEAKER) (test qcrg=951) 122 U/L 40-150 AST (SGOT) (BEAKER) (test apmt=728) 30 U/L 5-34 ALT (SGPT) (BEAKER) (test eblw=608) 12 U/L 6-55 Specimen slightly ictericPROTHROMBIN [id number] 16:17:00 Test Item Value Reference Range Comments PROTIME (BEAKER) (test ujmp=206) 17.3 seconds 11.7-14.7 INR (BEAKER) (test wtow=486) 1.4 <=5.9 RECOMMENDED COUMADIN/WARFARIN INR THERAPY RANGESSTANDARD DOSE: 2.0 - 3.0 Includes: PROPHYLAXIS forvenous thrombosis, systemic embolization; TREATMENT for venous thrombosis and/or pulmonary embolus.HIGH RISK: Target INR is 2.5-3.5 for patients with mechanical heart valves.CBC W/PLT COUNT & AUTO [id number] 16:17:00 Test Item Value Reference Range Comments WHITE BLOOD CELL COUNT (BEAKER) (test acaa=755) 5.6 K/ L 3.5-10.5 RED BLOOD CELL COUNT (BEAKER) (test jrne=929) 3.83 M/ L 3.93-5.22 HEMOGLOBIN (BEAKER) (test vbkg=739) 12.0 GM/DL 11.2-15.7 HEMATOCRIT (BEAKER) (test sqfa=200) 36.8 % 34.1-44.9 MEAN CORPUSCULAR VOLUME (BEAKER) (test gmye=517) 96.1 fL 79.4-94.8 MEAN CORPUSCULAR HEMOGLOBIN (BEAKER) (test 31.3 pg 25.6-32.2 zspu=703) MEAN CORPUSCULAR HEMOGLOBIN CONC (BEAKER) (test 32.6 GM/DL 32.2-35.5 zimj=582) RED CELL DISTRIBUTION WIDTH (BEAKER) (test 15.9 % 11.7-14.4 wtyg=009) PLATELET COUNT (BEAKER) (test tcqc=874) 83 K/CU MM 150-450 MEAN PLATELET VOLUME (BEAKER) (test gtsc=119) 11.1 fL 9.4-12.3 NUCLEATED RED BLOOD CELLS (BEAKER) (test 0 /100 WBC 0-0 zinc=876) NEUTROPHILS RELATIVE PERCENT (BEAKER) (test 54 % ldfa=593) LYMPHOCYTES RELATIVE PERCENT (BEAKER) (test 36 % vtrv=543) MONOCYTES RELATIVE PERCENT (BEAKER) (test 8 % hsvx=501) EOSINOPHILS RELATIVE PERCENT (BEAKER) (test 2 % lmas=806) BASOPHILS RELATIVE PERCENT (BEAKER) (test 1 % xozi=717) NEUTROPHILS ABSOLUTE COUNT (BEAKER) (test 3.01 K/ L 1.56-6.13 kpgh=692) LYMPHOCYTES ABSOLUTE COUNT (BEAKER) (test 1.98 K/ L 1.18-3.74 ygwf=814) MONOCYTES ABSOLUTE COUNT (BEAKER) (test roir=956) 0.44 K/ L 0.24-0.36 EOSINOPHILS ABSOLUTE COUNT (BEAKER) (test 0.10 K/ L 0.04-0.36 fkti=008) BASOPHILS ABSOLUTE COUNT (BEAKER) (test wwwk=967) 0.04 K/ L 0.01-0.08 IMMATURE GRANULOCYTES-RELATIVE PERCENT (BEAKER) 0 % 0-1 (test vozx=7292) ALPHA FETOPROTEIN (AFP), TUMOR [id number] 16:14:00 Test Item Value Reference Range Comments ALPHA-FETOPROTEIN (BEAKER) (test wtpc=8221) 5.7 ng/mL <10.0 Effective 07/17/2014: Reference Range ChangeNew: <10.0 Previous: 0.0- [id number] 15:57:00 Test Item Value Reference Range Comments MAGNESIUM (BEAKER) (test chfe=181) 1.9 mg/dL 1.6-2.6 BASIC METABOLIC [id number] 15:57:00 Test Item Value Reference Range Comments SODIUM (BEAKER) (test 139 meq/L 136-145 qzin=992) POTASSIUM (BEAKER) (test 4.5 meq/L 3.5-5.1 ixhi=468) CHLORIDE (BEAKER) (test 105 meq/L 98-107 djjq=717) CO2 (BEAKER) (test 25 meq/L 22-29 pfgl=286) BLOOD UREA NITROGEN 15 mg/dL 7-21 (BEAKER) (test qijw=459) CREATININE (BEAKER) (test 0.95 mg/dL 0.57-1.25 ufew=475) GLUCOSE RANDOM (BEAKER) 86 mg/dL 70-105 (test jdoj=285) CALCIUM (BEAKER) (test 9.4 mg/dL 8.4-10.2 kshi=253) EGFR (BEAKER) (test 56 mL/min/1.73 sq m ESTIMATED GFR IS NOT zjpn=5531) ACCURATE CREATININE CLEARANCE IN PREDICTING GLOMERULAR FILTRATION RATE. ESTIMATED GFR IS NOT APPLICABLE FOR DIALYSIS PATIENTS. Specimen slightly ictericHEPATIC FUNCTION [id number] 15:57:00 Test Item Value Reference Range Comments TOTAL PROTEIN (BEAKER) (test ioem=908) 7.6 gm/dL 6.0-8.3 ALBUMIN (BEAKER) (test gpah=6574) 3.2 g/dL 3.5-5.0 BILIRUBIN TOTAL (BEAKER) (test wlhm=617) 1.8 mg/dL 0.2-1.2 BILIRUBIN DIRECT (BEAKER) (test bodr=774) 0.8 mg/dL 0.1-0.5 ALKALINE PHOSPHATASE (BEAKER) (test jovt=547) 112 U/L 40-150 AST (SGOT) (BEAKER) (test pamb=129) 33 U/L 5-34 ALT (SGPT) (BEAKER) (test teeo=418) 17 U/L 6-55 Specimen slightly ictericPROTHROMBIN [id number] 15:56:00 Test Item Value Reference Range Comments PROTIME (BEAKER) (test onbm=396) 16.7 seconds 11.7-14.7 INR (BEAKER) (test mzbq=437) 1.4 <=5.9 RECOMMENDED COUMADIN/WARFARIN INR THERAPY RANGESSTANDARD DOSE: 2.0 - 3.0 Includes: PROPHYLAXIS forvenous thrombosis, systemic embolization; TREATMENT for venous thrombosis and/or pulmonary embolus.HIGH RISK: Target INR is 2.5-3.5 for patients with mechanical heart valves.CBC W/PLT COUNT & AUTO [id number] 15:56:00 Test Item Value Reference Range Comments WHITE BLOOD CELL COUNT (BEAKER) (test shaq=633) 5.3 K/ L 4.0-10.0 RED BLOOD CELL COUNT (BEAKER) (test aeho=072) 4.21 M/ L 4.00-5.00 HEMOGLOBIN (BEAKER) (test nggj=374) 14.1 GM/DL 12.0-15.0 HEMATOCRIT (BEAKER) (test mhdb=702) 41.7 % 36.0-45.0 MEAN CORPUSCULAR VOLUME (BEAKER) (test hgpc=865) 99.1 fL 82.0-99.0 MEAN CORPUSCULAR HEMOGLOBIN (BEAKER) (test 33.4 pg 27.0-33.0 hjop=092) MEAN CORPUSCULAR HEMOGLOBIN CONC (BEAKER) (test 33.7 GM/DL 32.0-36.0 ilvr=773) RED CELL DISTRIBUTION WIDTH (BEAKER) (test 13.2 % 10.3-14.2 rqaf=975) PLATELET COUNT (BEAKER) (test uusg=651) 77 K/CU MM 150-430 MEAN PLATELET VOLUME (BEAKER) (test yymc=833) 8.4 fL 6.5-10.5 NUCLEATED RED BLOOD CELLS (BEAKER) (test 0 /100 WBC 0-0 lcpa=046) NEUTROPHILS RELATIVE PERCENT (BEAKER) (test 54 % sgzt=398) LYMPHOCYTES RELATIVE PERCENT (BEAKER) (test 33 % edjt=705) MONOCYTES RELATIVE PERCENT (BEAKER) (test 10 % ldhd=135) EOSINOPHILS RELATIVE PERCENT (BEAKER) (test 3 % thok=219) BASOPHILS RELATIVE PERCENT (BEAKER) (test 0 % bqje=019) NEUTROPHILS ABSOLUTE COUNT (BEAKER) (test 2.86 K/ L 1.80-8.00 xylh=782) LYMPHOCYTES ABSOLUTE COUNT (BEAKER) (test 1.77 K/ L 1.48-4.50 iaek=274) MONOCYTES ABSOLUTE COUNT (BEAKER) (test wkcw=094) 0.56 K/ L 0.00-1.30 EOSINOPHILS ABSOLUTE COUNT (BEAKER) (test 0.13 K/ L 0.00-0.50 arnr=487) BASOPHILS ABSOLUTE COUNT (BEAKER) (test hbai=861) 0.02 K/ L 0.00-0.20 [id number] 11:05:00 Test Item Value Reference Range Comments POC-CREATININE (BEAKER) 0.9 mg/dL 0.6-1.[address] [facility] [address] [facility] (test yuif=1483) [facility] [address] POC-EGFR (BEAKER) (test 59 mL/min/1.73M2 awqv=3607)
[2019-08-11 07:59] VITALS: BP 105/50; TEMP 97.9; O2SAT 100
[2019-08-11 09:11] LABS: Absolute Lymphocytes (CBC) 0.4 K/uL (0.7-4.9); Basophils % 0.9 % (0-1.3); Hematocrit 24.9 % (36.0-45.0); Lymphocytes % 12.4 % (15.3-44.8); MPV 8.3 fL (7.6-11.3); RBC Red Blood Cell Count 2.69 M/uL (3.86-4.86)
[2019-08-11 09:27] LABS: Albumin 3.2 g/dL (3.4-5.0); Bilirubin Total 1.5 mg/dL (0.2-1.0); Potassium 3.9 mmol/L (3.5-5.1); Protein, Total 7.3 g/dL (6.4-8.2)
[2019-08-11] MEDS ORDERED: ALBUMIN HUMAN 25% 200 ML IV ONE (10:19)
--- NOTE | 2019-08-11 12:12 | RAD REPORT ---
EXAM DESCRIPTION: US - Paracentesis Proc Guidance - 08/11/2019 10:14 am CLINICAL HISTORY: Liver disease with ascites FINDINGS: The risks, benefits and alternatives to the procedure were explained to the patient and in formed consent obtained. The skin and subcutaneous tissues were anesthetized with Lidocaine. Under sonographic guidance an 8 F rench catheter was placed into the right lower quadrant. 4 liters of yellow fluid removed and sent to the lab. The patient experienced no immediate complication. IMPRESSION: Paracentesis
[2019-08-11 17:32] VITALS: BMI 22.6
== END 2019-08-11 11:25 | disposition home or self-care (01) ==
LOC: DS 07:24
PROVIDERS: ATTEND Internal Medicine Gastroenterology
DX: R18.8 Other ascites (principal); K72.90 Hepatic failure, unspecified without coma; K76.0 Fatty (change of) liver, not elsewhere classified; K74.60 Unspecified cirrhosis of liver; R80.9 Proteinuria, unspecified; R60.0 Localized edema; K30 Functional dyspepsia; L25.9 Unspecified contact dermatitis, unspecified cause
CPT/HCPCS: 85025; 36415; 80053; 96365; 49083; P9047

== ENCOUNTER → 2019-08-18 | Day surgery (SDC) | payer OTHER ==
--- OUTSIDE RECORDS SUMMARY | 2019-08-18 07:44 | XMS REPORT ---
:1930 [facility] Address [address] [place] [address] [address]. Rivero [address] [place] [address] Care Team Providers Name Role Phone MARY [...] Value Reference Range Comments ALPHA-FETOPROTEIN (BEAKER) (test fvqo=4326) 2.9 ng/mL <10.0 HEPATIC FUNCTION [id number] 16:38:00 Test Item Value Reference Range Comments TOTAL PROTEIN (BEAKER) (test gmjg=138) 9.0 gm/dL 6.0-8.3 ALBUMIN (BEAKER) (test uqzz=7167) 2.8 g/dL 3.5-5.0 BILIRUBIN TOTAL (BEAKER) (test nibv=785) 1.2 mg/dL 0.2-1.2 BILIRUBIN DIRECT (BEAKER) (test augj=490) 0.7 mg/dL 0.1-0.5 ALKALINE PHOSPHATASE (BEAKER) (test mpig=283) 111 U/L 40-150 AST (SGOT) (BEAKER) (test kzxa=990) 31 U/L 5-34 ALT (SGPT) (BEAKER) (test bbdd=839) 12 U/L 6-55 BASIC METABOLIC [id number] 16:38:00 Test Item Value Reference Range Comments SODIUM (BEAKER) (test 133 meq/L 136-145 zogt=047) POTASSIUM (BEAKER) (test 4.0 meq/L 3.5-5.1 udew=036) CHLORIDE (BEAKER) (test 100 meq/L 98-107 thas=712) CO2 (BEAKER) (test 27 meq/L 22-29 shqq=835) BLOOD UREA NITROGEN 20 mg/dL 7-21 (BEAKER) (test gtnv=558) CREATININE (BEAKER) (test 1.07 mg/dL 0.57-1.25 svvx=814) GLUCOSE RANDOM (BEAKER) 71 mg/dL 70-105 (test qgoh=003) CALCIUM (BEAKER) (test 9.4 mg/dL 8.4-10.2 nrby=545) EGFR (BEAKER) (test 49 mL/min/1.73 sq m ESTIMATED GFR IS NOT cimj=5497) ACCURATE CREATININE CLEARANCE IN PREDICTING GLOMERULAR FILTRATION RATE. ESTIMATED GFR IS NOT APPLICABLE FOR DIALYSIS PATIENTS. [id number] 16:33:00 Test Item Value Reference Range Comments AMMONIA (BEAKER) (test xepv=369) 40 mol/L 18-72 PROTHROMBIN [id number] 16:29:00 Test Item Value Reference Range Comments PROTIME (BEAKER) (test sgdr=723) 16.5 seconds 11.7-14.7 INR (BEAKER) (test mcsr=780) 1.3 <=5.9 RECOMMENDED COUMADIN/WARFARIN INR THERAPY RANGESSTANDARD DOSE: 2.0 - 3.0 Includes: PROPHYLAXIS forvenous thrombosis, systemic embolization; TREATMENT for venous thrombosis and/or pulmonary embolus.HIGH RISK: Target INR is 2.5-3.5 for patients with mechanical heart valves.CBC W/PLT COUNT & AUTO [id number] 16:22:00 Test Item Value Reference Range Comments WHITE BLOOD CELL COUNT (BEAKER) (test keof=938) 5.0 K/ L 3.5-10.5 RED BLOOD CELL COUNT (BEAKER) (test rtis=583) 3.39 M/ L 3.93-5.22 HEMOGLOBIN (BEAKER) (test qugq=123) 10.7 GM/DL 11.2-15.7 HEMATOCRIT (BEAKER) (test bral=449) 33.1 % 34.1-44.9 MEAN CORPUSCULAR VOLUME (BEAKER) (test hpwk=198) 97.6 fL 79.4-94.8 MEAN CORPUSCULAR HEMOGLOBIN (BEAKER) (test 31.6 pg 25.6-32.2 nhdg=256) MEAN CORPUSCULAR HEMOGLOBIN CONC (BEAKER) (test 32.3 GM/DL 32.2-35.5 hbdy=809) RED CELL DISTRIBUTION WIDTH (BEAKER) (test 15.0 % 11.7-14.4 inra=723) PLATELET COUNT (BEAKER) (test hpdh=544) 98 K/CU MM 150-450 MEAN PLATELET VOLUME (BEAKER) (test lmgo=620) 10.0 fL 9.4-12.3 NUCLEATED RED BLOOD CELLS (BEAKER) (test 0 /100 WBC 0-0 rwet=407) NEUTROPHILS RELATIVE PERCENT (BEAKER) (test 71 % owtj=156) LYMPHOCYTES RELATIVE PERCENT (BEAKER) (test 14 % mmkz=828) MONOCYTES RELATIVE PERCENT (BEAKER) (test 12 % gyjz=302) EOSINOPHILS RELATIVE PERCENT (BEAKER) (test 2 % nhcu=154) BASOPHILS RELATIVE PERCENT (BEAKER) (test 1 % rooh=802) NEUTROPHILS ABSOLUTE COUNT (BEAKER) (test 3.51 K/ L 1.56-6.13 xeyg=840) LYMPHOCYTES ABSOLUTE COUNT (BEAKER) (test 0.69 K/ L 1.18-3.74 wtzt=303) MONOCYTES ABSOLUTE COUNT (BEAKER) (test frrq=995) 0.62 K/ L 0.24-0.36 EOSINOPHILS ABSOLUTE COUNT (BEAKER) (test 0.10 K/ L 0.04-0.36 rzsb=757) BASOPHILS ABSOLUTE COUNT (BEAKER) (test uroj=344) 0.04 K/ L 0.01-0.08 IMMATURE GRANULOCYTES-RELATIVE PERCENT (BEAKER) 0 % 0-1 (test fmkz=3629) ALPHA FETOPROTEIN (AFP), TUMOR [id number] 17:15:00 Test Item Value Reference Range Comments ALPHA-FETOPROTEIN (BEAKER) (test hwtv=2563) 3.3 ng/mL <10.0 [id number] 16:34:00 Test Item Value Reference Range Comments MAGNESIUM (BEAKER) (test wuck=632) 1.8 mg/dL 1.6-2.6 BASIC METABOLIC [id number] 16:34:00 Test Item Value Reference Range Comments SODIUM (BEAKER) (test 133 meq/L 136-145 tadr=527) POTASSIUM (BEAKER) (test 3.9 meq/L 3.5-5.1 hjqj=186) CHLORIDE (BEAKER) (test 99 meq/L 98-107 ersc=196) CO2 (BEAKER) (test 25 meq/L 22-29 xuti=206) BLOOD UREA NITROGEN 12 mg/dL 7-21 (BEAKER) (test irkl=846) CREATININE (BEAKER) (test 0.97 mg/dL 0.57-1.25 vnmr=245) GLUCOSE RANDOM (BEAKER) 93 mg/dL 70-105 (test bjjt=418) CALCIUM (BEAKER) (test 9.0 mg/dL 8.4-10.2 iucm=668) EGFR (BEAKER) (test 54 mL/min/1.73 sq m ESTIMATED GFR IS NOT qxvp=9288) ACCURATE CREATININE CLEARANCE IN PREDICTING GLOMERULAR FILTRATION RATE. ESTIMATED GFR IS NOT APPLICABLE FOR DIALYSIS PATIENTS. Specimen slightly ictericHEPATIC FUNCTION [id number] 16:34:00 Test Item Value Reference Range Comments TOTAL PROTEIN (BEAKER) (test cegc=310) 8.0 gm/dL 6.0-8.3 ALBUMIN (BEAKER) (test ryai=1413) 3.0 g/dL 3.5-5.0 BILIRUBIN TOTAL (BEAKER) (test qrfm=840) 1.9 mg/dL 0.2-1.2 BILIRUBIN DIRECT (BEAKER) (test zjlo=618) 0.8 mg/dL 0.1-0.5 ALKALINE PHOSPHATASE (BEAKER) (test pwjr=943) 122 U/L 40-150 AST (SGOT) (BEAKER) (test okyw=329) 30 U/L 5-34 ALT (SGPT) (BEAKER) (test thkw=701) 12 U/L 6-55 Specimen slightly ictericPROTHROMBIN [id number] 16:17:00 Test Item Value Reference Range Comments PROTIME (BEAKER) (test zdif=491) 17.3 seconds 11.7-14.7 INR (BEAKER) (test rwxb=108) 1.4 <=5.9 RECOMMENDED COUMADIN/WARFARIN INR THERAPY RANGESSTANDARD DOSE: 2.0 - 3.0 Includes: PROPHYLAXIS forvenous thrombosis, systemic embolization; TREATMENT for venous thrombosis and/or pulmonary embolus.HIGH RISK: Target INR is 2.5-3.5 for patients with mechanical heart valves.CBC W/PLT COUNT & AUTO [id number] 16:17:00 Test Item Value Reference Range Comments WHITE BLOOD CELL COUNT (BEAKER) (test nmjg=889) 5.6 K/ L 3.5-10.5 RED BLOOD CELL COUNT (BEAKER) (test zrpr=946) 3.83 M/ L 3.93-5.22 HEMOGLOBIN (BEAKER) (test xiqi=202) 12.0 GM/DL 11.2-15.7 HEMATOCRIT (BEAKER) (test zwtx=171) 36.8 % 34.1-44.9 MEAN CORPUSCULAR VOLUME (BEAKER) (test nwyl=932) 96.1 fL 79.4-94.8 MEAN CORPUSCULAR HEMOGLOBIN (BEAKER) (test 31.3 pg 25.6-32.2 ajut=330) MEAN CORPUSCULAR HEMOGLOBIN CONC (BEAKER) (test 32.6 GM/DL 32.2-35.5 gyzs=171) RED CELL DISTRIBUTION WIDTH (BEAKER) (test 15.9 % 11.7-14.4 lirx=907) PLATELET COUNT (BEAKER) (test tqrm=893) 83 K/CU MM 150-450 MEAN PLATELET VOLUME (BEAKER) (test pqcs=618) 11.1 fL 9.4-12.3 NUCLEATED RED BLOOD CELLS (BEAKER) (test 0 /100 WBC 0-0 mjdn=075) NEUTROPHILS RELATIVE PERCENT (BEAKER) (test 54 % emxu=920) LYMPHOCYTES RELATIVE PERCENT (BEAKER) (test 36 % ryee=155) MONOCYTES RELATIVE PERCENT (BEAKER) (test 8 % eqij=686) EOSINOPHILS RELATIVE PERCENT (BEAKER) (test 2 % ofyu=265) BASOPHILS RELATIVE PERCENT (BEAKER) (test 1 % nibk=804) NEUTROPHILS ABSOLUTE COUNT (BEAKER) (test 3.01 K/ L 1.56-6.13 hjcq=363) LYMPHOCYTES ABSOLUTE COUNT (BEAKER) (test 1.98 K/ L 1.18-3.74 hqbj=273) MONOCYTES ABSOLUTE COUNT (BEAKER) (test albo=987) 0.44 K/ L 0.24-0.36 EOSINOPHILS ABSOLUTE COUNT (BEAKER) (test 0.10 K/ L 0.04-0.36 zdfq=788) BASOPHILS ABSOLUTE COUNT (BEAKER) (test qopt=878) 0.04 K/ L 0.01-0.08 IMMATURE GRANULOCYTES-RELATIVE PERCENT (BEAKER) 0 % 0-1 (test roxn=6620) ALPHA FETOPROTEIN (AFP), TUMOR [id number] 16:14:00 Test Item Value Reference Range Comments ALPHA-FETOPROTEIN (BEAKER) (test wzfl=9207) 5.7 ng/mL <10.0 Effective 07/17/2014: Reference Range ChangeNew: <10.0 Previous: 0.0- [id number] 15:57:00 Test Item Value Reference Range Comments MAGNESIUM (BEAKER) (test lwnq=296) 1.9 mg/dL 1.6-2.6 BASIC METABOLIC [id number] 15:57:00 Test Item Value Reference Range Comments SODIUM (BEAKER) (test 139 meq/L 136-145 rplf=320) POTASSIUM (BEAKER) (test 4.5 meq/L 3.5-5.1 zzqw=648) CHLORIDE (BEAKER) (test 105 meq/L 98-107 qgeg=574) CO2 (BEAKER) (test 25 meq/L 22-29 gzwv=748) BLOOD UREA NITROGEN 15 mg/dL 7-21 (BEAKER) (test rmge=289) CREATININE (BEAKER) (test 0.95 mg/dL 0.57-1.25 zmpy=800) GLUCOSE RANDOM (BEAKER) 86 mg/dL 70-105 (test lwxw=789) CALCIUM (BEAKER) (test 9.4 mg/dL 8.4-10.2 keuh=088) EGFR (BEAKER) (test 56 mL/min/1.73 sq m ESTIMATED GFR IS NOT bklo=0600) ACCURATE CREATININE CLEARANCE IN PREDICTING GLOMERULAR FILTRATION RATE. ESTIMATED GFR IS NOT APPLICABLE FOR DIALYSIS PATIENTS. Specimen slightly ictericHEPATIC FUNCTION [id number] 15:57:00 Test Item Value Reference Range Comments TOTAL PROTEIN (BEAKER) (test vkqy=733) 7.6 gm/dL 6.0-8.3 ALBUMIN (BEAKER) (test crxq=2005) 3.2 g/dL 3.5-5.0 BILIRUBIN TOTAL (BEAKER) (test bvof=863) 1.8 mg/dL 0.2-1.2 BILIRUBIN DIRECT (BEAKER) (test glqs=974) 0.8 mg/dL 0.1-0.5 ALKALINE PHOSPHATASE (BEAKER) (test kafw=556) 112 U/L 40-150 AST (SGOT) (BEAKER) (test hosq=907) 33 U/L 5-34 ALT (SGPT) (BEAKER) (test pztc=295) 17 U/L 6-55 Specimen slightly ictericPROTHROMBIN [id number] 15:56:00 Test Item Value Reference Range Comments PROTIME (BEAKER) (test qwze=190) 16.7 seconds 11.7-14.7 INR (BEAKER) (test vfos=575) 1.4 <=5.9 RECOMMENDED COUMADIN/WARFARIN INR THERAPY RANGESSTANDARD DOSE: 2.0 - 3.0 Includes: PROPHYLAXIS forvenous thrombosis, systemic embolization; TREATMENT for venous thrombosis and/or pulmonary embolus.HIGH RISK: Target INR is 2.5-3.5 for patients with mechanical heart valves.CBC W/PLT COUNT & AUTO [id number] 15:56:00 Test Item Value Reference Range Comments WHITE BLOOD CELL COUNT (BEAKER) (test djpi=988) 5.3 K/ L 4.0-10.0 RED BLOOD CELL COUNT (BEAKER) (test wsde=083) 4.21 M/ L 4.00-5.00 HEMOGLOBIN (BEAKER) (test mstn=874) 14.1 GM/DL 12.0-15.0 HEMATOCRIT (BEAKER) (test yijt=361) 41.7 % 36.0-45.0 MEAN CORPUSCULAR VOLUME (BEAKER) (test nyph=304) 99.1 fL 82.0-99.0 MEAN CORPUSCULAR HEMOGLOBIN (BEAKER) (test 33.4 pg 27.0-33.0 tcnb=598) MEAN CORPUSCULAR HEMOGLOBIN CONC (BEAKER) (test 33.7 GM/DL 32.0-36.0 ukzb=545) RED CELL DISTRIBUTION WIDTH (BEAKER) (test 13.2 % 10.3-14.2 xndv=472) PLATELET COUNT (BEAKER) (test qcwk=950) 77 K/CU MM 150-430 MEAN PLATELET VOLUME (BEAKER) (test vwvh=747) 8.4 fL 6.5-10.5 NUCLEATED RED BLOOD CELLS (BEAKER) (test 0 /100 WBC 0-0 hkhg=909) NEUTROPHILS RELATIVE PERCENT (BEAKER) (test 54 % ymgd=092) LYMPHOCYTES RELATIVE PERCENT (BEAKER) (test 33 % ewow=335) MONOCYTES RELATIVE PERCENT (BEAKER) (test 10 % efxt=916) EOSINOPHILS RELATIVE PERCENT (BEAKER) (test 3 % vwia=821) BASOPHILS RELATIVE PERCENT (BEAKER) (test 0 % majm=839) NEUTROPHILS ABSOLUTE COUNT (BEAKER) (test 2.86 K/ L 1.80-8.00 bepq=993) LYMPHOCYTES ABSOLUTE COUNT (BEAKER) (test 1.77 K/ L 1.48-4.50 wemg=161) MONOCYTES ABSOLUTE COUNT (BEAKER) (test gfkc=127) 0.56 K/ L 0.00-1.30 EOSINOPHILS ABSOLUTE COUNT (BEAKER) (test 0.13 K/ L 0.00-0.50 miwf=124) BASOPHILS ABSOLUTE COUNT (BEAKER) (test jvqx=334) 0.02 K/ L 0.00-0.20 0.77ZPQZ-[id number] 11:05:00 Test Item Value Reference Range Comments POC-CREATININE (BEAKER) 0.9 mg/dL 0.6-1.3 TESTED AT [facility] [address] [facility] (test joir=3750) [facility] [address] POC-EGFR (BEAKER) (test 59 mL/min/1.73M2 ukvd=8182)
[2019-08-18 11:24] LABS: Appearance CLEAR (CLEAR); Body Fluid Source PERITONEAL; Body Fluid WBC 146 /mm^3; Color of fluid Yellow (COLORLESS)
--- NOTE | 2019-08-18 11:48 | RAD REPORT ---
EXAM DESCRIPTION: US - Abdomen Exam Complete - 08/18/2019 9:51 am CLINICAL HISTORY: Abdominal pain with abnormal liver function test enzymes COMPARISON: December 2018 FINDINGS: The liver has a coarsened echotexture. It is small and nodular. The portal vein is patent. A cholecystectomy. The biliary tree is normal caliber. The pancreas appears normal in size and echotexture The right kidney measures 10 centimeters with a normal echotexture. 15 millimeter cyst The left kidney measures 8 centimeters with a normal echotexture. 1 centimeter cyst The spleen measures 10 centimeters. The abdominal aorta and inferior vena cava appear unremarkable IMPRESSION: Cirrhosis with moderate ascites
--- NOTE | 2019-08-18 12:11 | RAD REPORT ---
EXAM DESCRIPTION: US - Paracentesis Proc Guidance - 08/18/2019 9:51 am CLINICAL HISTORY: Ascites COMPARISON: Numerous prior paracentesis procedures. TECHNIQUE: The patient presents for ultrasound-guided paracentesis. The procedure, risks and altern atives were discussed with the patient in detail. Oral and written consent were obtained. Time out p rocedure was performed. The patient had no contraindicated allergy or medication history. PT, INR va lues within acceptable limits. Platelet values normal range. Preliminary sonographic evaluation identified right lower quadrant access site. The skin and deeper tissues were anesthetized with 1 percent lidocaine. Under direct sonographic visualization, a parace ntesis catheter was advanced into the peritoneal cavity. Approximately 10 mL of ascites retained for requested laboratory studies. Drainage was then initiated with 4 liters of ascites removed as request ed. At the conclusion of the procedure, catheter was withdrawn and a bandage placed at the puncture site. Postprocedure care and precaution instructions were given to the patient. The patient was transferr ed to the same day surgical area for albumin infusion using referring physician protocol. IMPRESSION: Ultrasound-guided paracentesis as detailed.
[2019-08-18 15:02] VITALS: BMI 22.3
[2019-08-18 15:10] VITALS: BP 113/63; TEMP 97.7; O2SAT 98
== END | disposition home or self-care (01) ==
LOC: DS 07:38
PROVIDERS: ATTEND Internal Medicine Gastroenterology
DX: R18.8 Other ascites (principal); K72.90 Hepatic failure, unspecified without coma; K76.0 Fatty (change of) liver, not elsewhere classified; K74.60 Unspecified cirrhosis of liver; R60.0 Localized edema; K30 Functional dyspepsia; L25.9 Unspecified contact dermatitis, unspecified cause
CPT/HCPCS: 36415; 89050; 96365; 76700; 49083; 96366; P9047

== ENCOUNTER 2019-08-25 08:27 | Day surgery (SDC) | payer OTHER ==
--- OUTSIDE RECORDS SUMMARY | 2019-08-25 08:30 | XMS REPORT ---
:1930 [facility] Address [address] [place] [address] Dr. [address]o [address] [place] [address] Care Team Providers Name Role Phone MARY [...] Value Reference Range Comments ALPHA-FETOPROTEIN (BEAKER) (test bxzt=1281) 2.9 ng/mL <10.0 HEPATIC FUNCTION [id number] 16:38:00 Test Item Value Reference Range Comments TOTAL PROTEIN (BEAKER) (test xuyx=126) 9.0 gm/dL 6.0-8.3 ALBUMIN (BEAKER) (test uafg=2198) 2.8 g/dL 3.5-5.0 BILIRUBIN TOTAL (BEAKER) (test jjsd=777) 1.2 mg/dL 0.2-1.2 BILIRUBIN DIRECT (BEAKER) (test wyon=419) 0.7 mg/dL 0.1-0.5 ALKALINE PHOSPHATASE (BEAKER) (test uftv=844) 111 U/L 40-150 AST (SGOT) (BEAKER) (test nbbz=418) 31 U/L 5-34 ALT (SGPT) (BEAKER) (test eyvu=176) 12 U/L 6-55 BASIC METABOLIC [id number] 16:38:00 Test Item Value Reference Range Comments SODIUM (BEAKER) (test 133 meq/L 136-145 zqgk=339) POTASSIUM (BEAKER) (test 4.0 meq/L 3.5-5.1 inrp=571) CHLORIDE (BEAKER) (test 100 meq/L 98-107 pdxw=401) CO2 (BEAKER) (test 27 meq/L 22-29 bfgx=953) BLOOD UREA NITROGEN 20 mg/dL 7-21 (BEAKER) (test iqci=765) CREATININE (BEAKER) (test 1.07 mg/dL 0.57-1.25 ptcs=631) GLUCOSE RANDOM (BEAKER) 71 mg/dL 70-105 (test hkrk=143) CALCIUM (BEAKER) (test 9.4 mg/dL 8.4-10.2 tnnb=715) EGFR (BEAKER) (test 49 mL/min/1.73 sq m ESTIMATED GFR IS NOT vgvl=5356) ACCURATE CREATININE CLEARANCE IN PREDICTING GLOMERULAR FILTRATION RATE. ESTIMATED GFR IS NOT APPLICABLE FOR DIALYSIS PATIENTS. [id number] 16:33:00 Test Item Value Reference Range Comments AMMONIA (BEAKER) (test aucc=985) 40 mol/L 18-72 PROTHROMBIN [id number] 16:29:00 Test Item Value Reference Range Comments PROTIME (BEAKER) (test ykkn=081) 16.5 seconds 11.7-14.7 INR (BEAKER) (test ilpc=884) 1.3 <=5.9 RECOMMENDED COUMADIN/WARFARIN INR THERAPY RANGESSTANDARD DOSE: 2.0 - 3.0 Includes: PROPHYLAXIS forvenous thrombosis, systemic embolization; TREATMENT for venous thrombosis and/or pulmonary embolus.HIGH RISK: Target INR is 2.5-3.5 for patients with mechanical heart valves.CBC W/PLT COUNT & AUTO [id number] 16:22:00 Test Item Value Reference Range Comments WHITE BLOOD CELL COUNT (BEAKER) (test thpw=660) 5.0 K/ L 3.5-10.5 RED BLOOD CELL COUNT (BEAKER) (test tahm=877) 3.39 M/ L 3.93-5.22 HEMOGLOBIN (BEAKER) (test klfl=800) 10.7 GM/DL 11.2-15.7 HEMATOCRIT (BEAKER) (test cuni=328) 33.1 % 34.1-44.9 MEAN CORPUSCULAR VOLUME (BEAKER) (test tuvy=426) 97.6 fL 79.4-94.8 MEAN CORPUSCULAR HEMOGLOBIN (BEAKER) (test 31.6 pg 25.6-32.2 eapv=572) MEAN CORPUSCULAR HEMOGLOBIN CONC (BEAKER) (test 32.3 GM/DL 32.2-35.5 aaoq=959) RED CELL DISTRIBUTION WIDTH (BEAKER) (test 15.0 % 11.7-14.4 ayhc=756) PLATELET COUNT (BEAKER) (test iive=973) 98 K/CU MM 150-450 MEAN PLATELET VOLUME (BEAKER) (test pvky=585) 10.0 fL 9.4-12.3 NUCLEATED RED BLOOD CELLS (BEAKER) (test 0 /100 WBC 0-0 qcfn=491) NEUTROPHILS RELATIVE PERCENT (BEAKER) (test 71 % uuoi=704) LYMPHOCYTES RELATIVE PERCENT (BEAKER) (test 14 % xesp=303) MONOCYTES RELATIVE PERCENT (BEAKER) (test 12 % nwkz=809) EOSINOPHILS RELATIVE PERCENT (BEAKER) (test 2 % pjoc=417) BASOPHILS RELATIVE PERCENT (BEAKER) (test 1 % irfl=774) NEUTROPHILS ABSOLUTE COUNT (BEAKER) (test 3.51 K/ L 1.56-6.13 pmxe=218) LYMPHOCYTES ABSOLUTE COUNT (BEAKER) (test 0.69 K/ L 1.18-3.74 igqo=494) MONOCYTES ABSOLUTE COUNT (BEAKER) (test kwxq=318) 0.62 K/ L 0.24-0.36 EOSINOPHILS ABSOLUTE COUNT (BEAKER) (test 0.10 K/ L 0.04-0.36 xccc=979) BASOPHILS ABSOLUTE COUNT (BEAKER) (test toht=913) 0.04 K/ L 0.01-0.08 IMMATURE GRANULOCYTES-RELATIVE PERCENT (BEAKER) 0 % 0-1 (test addk=2147) ALPHA FETOPROTEIN (AFP), TUMOR [id number] 17:15:00 Test Item Value Reference Range Comments ALPHA-FETOPROTEIN (BEAKER) (test hamm=1627) 3.3 ng/mL <10.0 [id number] 16:34:00 Test Item Value Reference Range Comments MAGNESIUM (BEAKER) (test wbvq=620) 1.8 mg/dL 1.6-2.6 BASIC METABOLIC [id number] 16:34:00 Test Item Value Reference Range Comments SODIUM (BEAKER) (test 133 meq/L 136-145 hzjx=828) POTASSIUM (BEAKER) (test 3.9 meq/L 3.5-5.1 lkpv=594) CHLORIDE (BEAKER) (test 99 meq/L 98-107 ahzu=727) CO2 (BEAKER) (test 25 meq/L 22-29 kxha=068) BLOOD UREA NITROGEN 12 mg/dL 7-21 (BEAKER) (test unft=317) CREATININE (BEAKER) (test 0.97 mg/dL 0.57-1.25 okac=772) GLUCOSE RANDOM (BEAKER) 93 mg/dL 70-105 (test gwnt=606) CALCIUM (BEAKER) (test 9.0 mg/dL 8.4-10.2 zmal=361) EGFR (BEAKER) (test 54 mL/min/1.73 sq m ESTIMATED GFR IS NOT flhc=4857) ACCURATE CREATININE CLEARANCE IN PREDICTING GLOMERULAR FILTRATION RATE. ESTIMATED GFR IS NOT APPLICABLE FOR DIALYSIS PATIENTS. Specimen slightly ictericHEPATIC FUNCTION [id number] 16:34:00 Test Item Value Reference Range Comments TOTAL PROTEIN (BEAKER) (test mpnv=434) 8.0 gm/dL 6.0-8.3 ALBUMIN (BEAKER) (test oyxm=6186) 3.0 g/dL 3.5-5.0 BILIRUBIN TOTAL (BEAKER) (test dtlc=037) 1.9 mg/dL 0.2-1.2 BILIRUBIN DIRECT (BEAKER) (test shgq=456) 0.8 mg/dL 0.1-0.5 ALKALINE PHOSPHATASE (BEAKER) (test egpt=299) 122 U/L 40-150 AST (SGOT) (BEAKER) (test ejwo=601) 30 U/L 5-34 ALT (SGPT) (BEAKER) (test qmpb=478) 12 U/L 6-55 Specimen slightly ictericPROTHROMBIN [id number] 16:17:00 Test Item Value Reference Range Comments PROTIME (BEAKER) (test ucss=996) 17.3 seconds 11.7-14.7 INR (BEAKER) (test cxnz=813) 1.4 <=5.9 RECOMMENDED COUMADIN/WARFARIN INR THERAPY RANGESSTANDARD DOSE: 2.0 - 3.0 Includes: PROPHYLAXIS forvenous thrombosis, systemic embolization; TREATMENT for venous thrombosis and/or pulmonary embolus.HIGH RISK: Target INR is 2.5-3.5 for patients with mechanical heart valves.CBC W/PLT COUNT & AUTO [id number] 16:17:00 Test Item Value Reference Range Comments WHITE BLOOD CELL COUNT (BEAKER) (test hhyj=697) 5.6 K/ L 3.5-10.5 RED BLOOD CELL COUNT (BEAKER) (test pldh=235) 3.83 M/ L 3.93-5.22 HEMOGLOBIN (BEAKER) (test sfkm=034) 12.0 GM/DL 11.2-15.7 HEMATOCRIT (BEAKER) (test djcv=903) 36.8 % 34.1-44.9 MEAN CORPUSCULAR VOLUME (BEAKER) (test tchw=988) 96.1 fL 79.4-94.8 MEAN CORPUSCULAR HEMOGLOBIN (BEAKER) (test 31.3 pg 25.6-32.2 lixi=358) MEAN CORPUSCULAR HEMOGLOBIN CONC (BEAKER) (test 32.6 GM/DL 32.2-35.5 tjdw=904) RED CELL DISTRIBUTION WIDTH (BEAKER) (test 15.9 % 11.7-14.4 bzmg=140) PLATELET COUNT (BEAKER) (test jwer=548) 83 K/CU MM 150-450 MEAN PLATELET VOLUME (BEAKER) (test qbyc=344) 11.1 fL 9.4-12.3 NUCLEATED RED BLOOD CELLS (BEAKER) (test 0 /100 WBC 0-0 yksj=523) NEUTROPHILS RELATIVE PERCENT (BEAKER) (test 54 % ebci=484) LYMPHOCYTES RELATIVE PERCENT (BEAKER) (test 36 % zduk=334) MONOCYTES RELATIVE PERCENT (BEAKER) (test 8 % ujop=447) EOSINOPHILS RELATIVE PERCENT (BEAKER) (test 2 % ixeh=793) BASOPHILS RELATIVE PERCENT (BEAKER) (test 1 % sneu=757) NEUTROPHILS ABSOLUTE COUNT (BEAKER) (test 3.01 K/ L 1.56-6.13 aarr=364) LYMPHOCYTES ABSOLUTE COUNT (BEAKER) (test 1.98 K/ L 1.18-3.74 zwek=109) MONOCYTES ABSOLUTE COUNT (BEAKER) (test votn=279) 0.44 K/ L 0.24-0.36 EOSINOPHILS ABSOLUTE COUNT (BEAKER) (test 0.10 K/ L 0.04-0.36 xbny=273) BASOPHILS ABSOLUTE COUNT (BEAKER) (test xsqq=779) 0.04 K/ L 0.01-0.08 IMMATURE GRANULOCYTES-RELATIVE PERCENT (BEAKER) 0 % 0-1 (test pnej=7196) ALPHA FETOPROTEIN (AFP), TUMOR [id number] 16:14:00 Test Item Value Reference Range Comments ALPHA-FETOPROTEIN (BEAKER) (test uute=4570) 5.7 ng/mL <10.0 Effective 07/17/2014: Reference Range ChangeNew: <10.0 Previous: 0.0- [id number] 15:57:00 Test Item Value Reference Range Comments MAGNESIUM (BEAKER) (test wiyi=556) 1.9 mg/dL 1.6-2.6 BASIC METABOLIC [id number] 15:57:00 Test Item Value Reference Range Comments SODIUM (BEAKER) (test 139 meq/L 136-145 hfkp=372) POTASSIUM (BEAKER) (test 4.5 meq/L 3.5-5.1 jlel=772) CHLORIDE (BEAKER) (test 105 meq/L 98-107 qvhk=487) CO2 (BEAKER) (test 25 meq/L 22-29 bthw=530) BLOOD UREA NITROGEN 15 mg/dL 7-21 (BEAKER) (test mlxf=978) CREATININE (BEAKER) (test 0.95 mg/dL 0.57-1.25 ihzs=929) GLUCOSE RANDOM (BEAKER) 86 mg/dL 70-105 (test woxo=181) CALCIUM (BEAKER) (test 9.4 mg/dL 8.4-10.2 dlfb=550) EGFR (BEAKER) (test 56 mL/min/1.73 sq m ESTIMATED GFR IS NOT lmeo=1736) ACCURATE CREATININE CLEARANCE IN PREDICTING GLOMERULAR FILTRATION RATE. ESTIMATED GFR IS NOT APPLICABLE FOR DIALYSIS PATIENTS. Specimen slightly ictericHEPATIC FUNCTION [id number] 15:57:00 Test Item Value Reference Range Comments TOTAL PROTEIN (BEAKER) (test shzt=628) 7.6 gm/dL 6.0-8.3 ALBUMIN (BEAKER) (test lqeu=6609) 3.2 g/dL 3.5-5.0 BILIRUBIN TOTAL (BEAKER) (test ssop=089) 1.8 mg/dL 0.2-1.2 BILIRUBIN DIRECT (BEAKER) (test eush=399) 0.8 mg/dL 0.1-0.5 ALKALINE PHOSPHATASE (BEAKER) (test dyul=084) 112 U/L 40-150 AST (SGOT) (BEAKER) (test govo=660) 33 U/L 5-34 ALT (SGPT) (BEAKER) (test pkzb=118) 17 U/L 6-55 Specimen slightly ictericPROTHROMBIN [id number] 15:56:00 Test Item Value Reference Range Comments PROTIME (BEAKER) (test mqol=234) 16.7 seconds 11.7-14.7 INR (BEAKER) (test dehe=734) 1.4 <=5.9 RECOMMENDED COUMADIN/WARFARIN INR THERAPY RANGESSTANDARD DOSE: 2.0 - 3.0 Includes: PROPHYLAXIS forvenous thrombosis, systemic embolization; TREATMENT for venous thrombosis and/or pulmonary embolus.HIGH RISK: Target INR is 2.5-3.5 for patients with mechanical heart valves.CBC W/PLT COUNT & AUTO [id number] 15:56:00 Test Item Value Reference Range Comments WHITE BLOOD CELL COUNT (BEAKER) (test ssak=020) 5.3 K/ L 4.0-10.0 RED BLOOD CELL COUNT (BEAKER) (test wedt=397) 4.21 M/ L 4.00-5.00 HEMOGLOBIN (BEAKER) (test dpkb=398) 14.1 GM/DL 12.0-15.0 HEMATOCRIT (BEAKER) (test mzuh=515) 41.7 % 36.0-45.0 MEAN CORPUSCULAR VOLUME (BEAKER) (test ttlj=680) 99.1 fL 82.0-99.0 MEAN CORPUSCULAR HEMOGLOBIN (BEAKER) (test 33.4 pg 27.0-33.0 ztcj=178) MEAN CORPUSCULAR HEMOGLOBIN CONC (BEAKER) (test 33.7 GM/DL 32.0-36.0 zcbm=215) RED CELL DISTRIBUTION WIDTH (BEAKER) (test 13.2 % 10.3-14.2 johi=808) PLATELET COUNT (BEAKER) (test uoog=501) 77 K/CU MM 150-430 MEAN PLATELET VOLUME (BEAKER) (test lgqp=488) 8.4 fL 6.5-10.5 NUCLEATED RED BLOOD CELLS (BEAKER) (test 0 /100 WBC 0-0 xexf=714) NEUTROPHILS RELATIVE PERCENT (BEAKER) (test 54 % uwqy=873) LYMPHOCYTES RELATIVE PERCENT (BEAKER) (test 33 % mhwr=773) MONOCYTES RELATIVE PERCENT (BEAKER) (test 10 % oket=481) EOSINOPHILS RELATIVE PERCENT (BEAKER) (test 3 % hqjd=704) BASOPHILS RELATIVE PERCENT (BEAKER) (test 0 % rjso=583) NEUTROPHILS ABSOLUTE COUNT (BEAKER) (test 2.86 K/ L 1.80-8.00 dpjd=581) LYMPHOCYTES ABSOLUTE COUNT (BEAKER) (test 1.77 K/ L 1.48-4.50 uecc=561) MONOCYTES ABSOLUTE COUNT (BEAKER) (test bjbz=286) 0.56 K/ L 0.00-1.30 EOSINOPHILS ABSOLUTE COUNT (BEAKER) (test 0.13 K/ L 0.00-0.50 qkkj=525) BASOPHILS ABSOLUTE COUNT (BEAKER) (test vlip=527) 0.02 K/ L 0.00-0.20 0.86ARFH-[id number] 11:05:00 Test Item Value Reference Range Comments POC-CREATININE (BEAKER) 0.9 mg/dL 0.6-1.3 TESTED AT [facility] [address] [facility] (test krmu=6086) [facility] [address] POC-EGFR (BEAKER) (test 59 mL/min/1.73M2 edbv=1982)
[2019-08-25 09:02] LABS: Absolute Lymphocytes (CBC) 0.4 K/uL (0.7-4.9); Basophils % 1.4 % (0-1.3); Hematocrit 26.2 % (36.0-45.0); Lymphocytes % 12.8 % (15.3-44.8); MPV 8.1 fL (7.6-11.3); RBC Red Blood Cell Count 2.82 M/uL (3.86-4.86)
[2019-08-25 09:23] LABS: Albumin 3.2 g/dL (3.4-5.0); Bilirubin Total 1.6 mg/dL (0.2-1.0); Potassium 3.6 mmol/L (3.5-5.1); Protein, Total 7.5 g/dL (6.4-8.2)
[2019-08-25 10:01] VITALS: BMI 21.8
[2019-08-25 10:03] LABS: Blood Morphology Comment NOT SEEN (NOT SEEN); Platelet Estimate ADEQ; Urine White Blood Cell Casts OK
[2019-08-25] MEDS ORDERED: ALBUMIN HUMAN 25% 200 ML IV ONE (11:42)
--- NOTE | 2019-08-25 11:44 | RAD REPORT ---
EXAM DESCRIPTION: US - Paracentesis Proc Guidance - 08/25/2019 11:17 am CLINICAL HISTORY: Ascites COMPARISON: Multiple prior paracentesis procedures. TECHNIQUE: The patient presents for ultrasound-guided paracentesis. The procedure, risks and altern atives were discussed with the patient in detail. Oral and written consent were obtained. Time out p rocedure was performed. The patient had no contraindicated allergy or medication history. PT, INR va lues within acceptable limits. Preliminary sonographic evaluation identified right lower quadrant access site. The skin and deeper tissues were anesthetized with 1 percent lidocaine. Under direct sonographic visualization, a parace ntesis catheter was advanced into the peritoneal cavity. Approximately 4 liters of ascites removed. No labs were requested for this Procedure. At the conclusion of the procedure, catheter was withdrawn and a bandage placed at the puncture site. Postprocedure care and precaution instructions were given to the patient. Patient was transferred back to the same day surgical area for pending albumin infusion per referring physician protocol. IMPRESSION: Ultrasound-guided paracentesis as detailed.
[2019-08-25 15:58] VITALS: BP 101/47; TEMP 97.5; O2SAT 97
== END 2019-08-25 12:55 | disposition home or self-care (01) ==
LOC: DS 08:27
PROVIDERS: ATTEND Internal Medicine Gastroenterology
DX: R18.8 Other ascites (principal); K72.90 Hepatic failure, unspecified without coma; K76.0 Fatty (change of) liver, not elsewhere classified; K74.60 Unspecified cirrhosis of liver; R60.9 Edema, unspecified; L25.9 Unspecified contact dermatitis, unspecified cause
CPT/HCPCS: 85025; 36415; 80053; 96365; 49083; P9047

== ENCOUNTER 2019-09-01 08:53 | Day surgery (SDC) | payer OTHER ==
--- OUTSIDE RECORDS SUMMARY | 2019-09-01 08:56 | XMS REPORT ---
:1930 Author Organization [facility] Address [address] [place] [address] [address]. [address] [place] [address] Care Team Providers Name Role Phone MARY [...] Value Reference Range Comments ALPHA-FETOPROTEIN (BEAKER) (test kwdn=7610) 2.9 ng/mL <10.0 HEPATIC FUNCTION [id number] 16:38:00 Test Item Value Reference Range Comments TOTAL PROTEIN (BEAKER) (test mfjr=239) 9.0 gm/dL 6.0-8.3 ALBUMIN (BEAKER) (test abis=5570) 2.8 g/dL 3.5-5.0 BILIRUBIN TOTAL (BEAKER) (test mgbc=224) 1.2 mg/dL 0.2-1.2 BILIRUBIN DIRECT (BEAKER) (test zmbv=884) 0.7 mg/dL 0.1-0.5 ALKALINE PHOSPHATASE (BEAKER) (test lsxn=471) 111 U/L 40-150 AST (SGOT) (BEAKER) (test ulbn=613) 31 U/L 5-34 ALT (SGPT) (BEAKER) (test dody=150) 12 U/L 6-55 BASIC METABOLIC [id number] 16:38:00 Test Item Value Reference Range Comments SODIUM (BEAKER) (test 133 meq/L 136-145 vmtp=151) POTASSIUM (BEAKER) (test 4.0 meq/L 3.5-5.1 xhit=975) CHLORIDE (BEAKER) (test 100 meq/L 98-107 oezx=217) CO2 (BEAKER) (test 27 meq/L 22-29 nrey=664) BLOOD UREA NITROGEN 20 mg/dL 7-21 (BEAKER) (test wojd=491) CREATININE (BEAKER) (test 1.07 mg/dL 0.57-1.25 upfb=046) GLUCOSE RANDOM (BEAKER) 71 mg/dL 70-105 (test oxnl=112) CALCIUM (BEAKER) (test 9.4 mg/dL 8.4-10.2 wzum=839) EGFR (BEAKER) (test 49 mL/min/1.73 sq m ESTIMATED GFR IS NOT pesu=0357) ACCURATE CREATININE CLEARANCE IN PREDICTING GLOMERULAR FILTRATION RATE. ESTIMATED GFR IS NOT APPLICABLE FOR DIALYSIS PATIENTS. [id number] 16:33:00 Test Item Value Reference Range Comments AMMONIA (BEAKER) (test tjpk=335) 40 mol/L 18-72 PROTHROMBIN [id number] 16:29:00 Test Item Value Reference Range Comments PROTIME (BEAKER) (test lqdf=378) 16.5 seconds 11.7-14.7 INR (BEAKER) (test gecu=604) 1.3 <=5.9 RECOMMENDED COUMADIN/WARFARIN INR THERAPY RANGESSTANDARD DOSE: 2.0 - 3.0 Includes: PROPHYLAXIS forvenous thrombosis, systemic embolization; TREATMENT for venous thrombosis and/or pulmonary embolus.HIGH RISK: Target INR is 2.5-3.5 for patients with mechanical heart valves.CBC W/PLT COUNT & AUTO [id number] 16:22:00 Test Item Value Reference Range Comments WHITE BLOOD CELL COUNT (BEAKER) (test ehnx=874) 5.0 K/ L 3.5-10.5 RED BLOOD CELL COUNT (BEAKER) (test qvge=499) 3.39 M/ L 3.93-5.22 HEMOGLOBIN (BEAKER) (test cljq=278) 10.7 GM/DL 11.2-15.7 HEMATOCRIT (BEAKER) (test etec=993) 33.1 % 34.1-44.9 MEAN CORPUSCULAR VOLUME (BEAKER) (test fkln=071) 97.6 fL 79.4-94.8 MEAN CORPUSCULAR HEMOGLOBIN (BEAKER) (test 31.6 pg 25.6-32.2 vhgd=703) MEAN CORPUSCULAR HEMOGLOBIN CONC (BEAKER) (test 32.3 GM/DL 32.2-35.5 xbsr=409) RED CELL DISTRIBUTION WIDTH (BEAKER) (test 15.0 % 11.7-14.4 ggdy=530) PLATELET COUNT (BEAKER) (test eczx=032) 98 K/CU MM 150-450 MEAN PLATELET VOLUME (BEAKER) (test ytxu=328) 10.0 fL 9.4-12.3 NUCLEATED RED BLOOD CELLS (BEAKER) (test 0 /100 WBC 0-0 lurk=916) NEUTROPHILS RELATIVE PERCENT (BEAKER) (test 71 % tukf=702) LYMPHOCYTES RELATIVE PERCENT (BEAKER) (test 14 % sxso=255) MONOCYTES RELATIVE PERCENT (BEAKER) (test 12 % jsdk=677) EOSINOPHILS RELATIVE PERCENT (BEAKER) (test 2 % zgmm=155) BASOPHILS RELATIVE PERCENT (BEAKER) (test 1 % rnil=768) NEUTROPHILS ABSOLUTE COUNT (BEAKER) (test 3.51 K/ L 1.56-6.13 jdvl=799) LYMPHOCYTES ABSOLUTE COUNT (BEAKER) (test 0.69 K/ L 1.18-3.74 fohc=839) MONOCYTES ABSOLUTE COUNT (BEAKER) (test cqdz=749) 0.62 K/ L 0.24-0.36 EOSINOPHILS ABSOLUTE COUNT (BEAKER) (test 0.10 K/ L 0.04-0.36 okib=586) BASOPHILS ABSOLUTE COUNT (BEAKER) (test eiis=254) 0.04 K/ L 0.01-0.08 IMMATURE GRANULOCYTES-RELATIVE PERCENT (BEAKER) 0 % 0-1 (test irpo=9534) ALPHA FETOPROTEIN (AFP), TUMOR [id number] 17:15:00 Test Item Value Reference Range Comments ALPHA-FETOPROTEIN (BEAKER) (test qvlu=6247) 3.3 ng/mL <10.0 [id number] 16:34:00 Test Item Value Reference Range Comments MAGNESIUM (BEAKER) (test wvvk=336) 1.8 mg/dL 1.6-2.6 BASIC METABOLIC [id number] 16:34:00 Test Item Value Reference Range Comments SODIUM (BEAKER) (test 133 meq/L 136-145 wior=982) POTASSIUM (BEAKER) (test 3.9 meq/L 3.5-5.1 gipc=793) CHLORIDE (BEAKER) (test 99 meq/L 98-107 vwpv=057) CO2 (BEAKER) (test 25 meq/L 22-29 wmbc=808) BLOOD UREA NITROGEN 12 mg/dL 7-21 (BEAKER) (test iajh=846) CREATININE (BEAKER) (test 0.97 mg/dL 0.57-1.25 lovb=662) GLUCOSE RANDOM (BEAKER) 93 mg/dL 70-105 (test ysna=820) CALCIUM (BEAKER) (test 9.0 mg/dL 8.4-10.2 ofxs=975) EGFR (BEAKER) (test 54 mL/min/1.73 sq m ESTIMATED GFR IS NOT qbuz=2930) ACCURATE CREATININE CLEARANCE IN PREDICTING GLOMERULAR FILTRATION RATE. ESTIMATED GFR IS NOT APPLICABLE FOR DIALYSIS PATIENTS. Specimen slightly ictericHEPATIC FUNCTION [id number] 16:34:00 Test Item Value Reference Range Comments TOTAL PROTEIN (BEAKER) (test mntw=428) 8.0 gm/dL 6.0-8.3 ALBUMIN (BEAKER) (test dtno=6505) 3.0 g/dL 3.5-5.0 BILIRUBIN TOTAL (BEAKER) (test zobw=859) 1.9 mg/dL 0.2-1.2 BILIRUBIN DIRECT (BEAKER) (test aemz=625) 0.8 mg/dL 0.1-0.5 ALKALINE PHOSPHATASE (BEAKER) (test ebzf=660) 122 U/L 40-150 AST (SGOT) (BEAKER) (test owtm=396) 30 U/L 5-34 ALT (SGPT) (BEAKER) (test pmpv=771) 12 U/L 6-55 Specimen slightly ictericPROTHROMBIN [id number] 16:17:00 Test Item Value Reference Range Comments PROTIME (BEAKER) (test yjzt=569) 17.3 seconds 11.7-14.7 INR (BEAKER) (test detw=570) 1.4 <=5.9 RECOMMENDED COUMADIN/WARFARIN INR THERAPY RANGESSTANDARD DOSE: 2.0 - 3.0 Includes: PROPHYLAXIS forvenous thrombosis, systemic embolization; TREATMENT for venous thrombosis and/or pulmonary embolus.HIGH RISK: Target INR is 2.5-3.5 for patients with mechanical heart valves.CBC W/PLT COUNT & AUTO [id number] 16:17:00 Test Item Value Reference Range Comments WHITE BLOOD CELL COUNT (BEAKER) (test iwzo=022) 5.6 K/ L 3.5-10.5 RED BLOOD CELL COUNT (BEAKER) (test uoyn=605) 3.83 M/ L 3.93-5.22 HEMOGLOBIN (BEAKER) (test ewqx=404) 12.0 GM/DL 11.2-15.7 HEMATOCRIT (BEAKER) (test oyob=615) 36.8 % 34.1-44.9 MEAN CORPUSCULAR VOLUME (BEAKER) (test nflp=814) 96.1 fL 79.4-94.8 MEAN CORPUSCULAR HEMOGLOBIN (BEAKER) (test 31.3 pg 25.6-32.2 gipi=435) MEAN CORPUSCULAR HEMOGLOBIN CONC (BEAKER) (test 32.6 GM/DL 32.2-35.5 eghy=028) RED CELL DISTRIBUTION WIDTH (BEAKER) (test 15.9 % 11.7-14.4 sxzb=657) PLATELET COUNT (BEAKER) (test bnce=071) 83 K/CU MM 150-450 MEAN PLATELET VOLUME (BEAKER) (test iifu=248) 11.1 fL 9.4-12.3 NUCLEATED RED BLOOD CELLS (BEAKER) (test 0 /100 WBC 0-0 hmgo=012) NEUTROPHILS RELATIVE PERCENT (BEAKER) (test 54 % emww=792) LYMPHOCYTES RELATIVE PERCENT (BEAKER) (test 36 % sjai=893) MONOCYTES RELATIVE PERCENT (BEAKER) (test 8 % brur=628) EOSINOPHILS RELATIVE PERCENT (BEAKER) (test 2 % kzee=066) BASOPHILS RELATIVE PERCENT (BEAKER) (test 1 % kpdf=671) NEUTROPHILS ABSOLUTE COUNT (BEAKER) (test 3.01 K/ L 1.56-6.13 icrq=066) LYMPHOCYTES ABSOLUTE COUNT (BEAKER) (test 1.98 K/ L 1.18-3.74 uzxk=430) MONOCYTES ABSOLUTE COUNT (BEAKER) (test iewr=006) 0.44 K/ L 0.24-0.36 EOSINOPHILS ABSOLUTE COUNT (BEAKER) (test 0.10 K/ L 0.04-0.36 qdbe=643) BASOPHILS ABSOLUTE COUNT (BEAKER) (test aoms=667) 0.04 K/ L 0.01-0.08 IMMATURE GRANULOCYTES-RELATIVE PERCENT (BEAKER) 0 % 0-1 (test ggqg=0956) ALPHA FETOPROTEIN (AFP), TUMOR [id number] 16:14:00 Test Item Value Reference Range Comments ALPHA-FETOPROTEIN (BEAKER) (test cghv=4158) 5.7 ng/mL <10.0 Effective 07/17/2014: Reference Range ChangeNew: <10.0 Previous: 0.0- [id number] 15:57:00 Test Item Value Reference Range Comments MAGNESIUM (BEAKER) (test yquy=576) 1.9 mg/dL 1.6-2.6 BASIC METABOLIC [id number] 15:57:00 Test Item Value Reference Range Comments SODIUM (BEAKER) (test 139 meq/L 136-145 vsfa=054) POTASSIUM (BEAKER) (test 4.5 meq/L 3.5-5.1 wnoq=276) CHLORIDE (BEAKER) (test 105 meq/L 98-107 cvgf=180) CO2 (BEAKER) (test 25 meq/L 22-29 pvct=984) BLOOD UREA NITROGEN 15 mg/dL 7-21 (BEAKER) (test wzkj=627) CREATININE (BEAKER) (test 0.95 mg/dL 0.57-1.25 mpvz=269) GLUCOSE RANDOM (BEAKER) 86 mg/dL 70-105 (test fjpa=581) CALCIUM (BEAKER) (test 9.4 mg/dL 8.4-10.2 ftpc=400) EGFR (BEAKER) (test 56 mL/min/1.73 sq m ESTIMATED GFR IS NOT mpvn=7284) ACCURATE CREATININE CLEARANCE IN PREDICTING GLOMERULAR FILTRATION RATE. ESTIMATED GFR IS NOT APPLICABLE FOR DIALYSIS PATIENTS. Specimen slightly ictericHEPATIC FUNCTION [id number] 15:57:00 Test Item Value Reference Range Comments TOTAL PROTEIN (BEAKER) (test ymwi=179) 7.6 gm/dL 6.0-8.3 ALBUMIN (BEAKER) (test bskv=9929) 3.2 g/dL 3.5-5.0 BILIRUBIN TOTAL (BEAKER) (test nmne=639) 1.8 mg/dL 0.2-1.2 BILIRUBIN DIRECT (BEAKER) (test bfac=555) 0.8 mg/dL 0.1-0.5 ALKALINE PHOSPHATASE (BEAKER) (test vshn=645) 112 U/L 40-150 AST (SGOT) (BEAKER) (test bkas=299) 33 U/L 5-34 ALT (SGPT) (BEAKER) (test fzmf=643) 17 U/L 6-55 Specimen slightly ictericPROTHROMBIN [id number] 15:56:00 Test Item Value Reference Range Comments PROTIME (BEAKER) (test bsix=135) 16.7 seconds 11.7-14.7 INR (BEAKER) (test ztqd=708) 1.4 <=5.9 RECOMMENDED COUMADIN/WARFARIN INR THERAPY RANGESSTANDARD DOSE: 2.0 - 3.0 Includes: PROPHYLAXIS forvenous thrombosis, systemic embolization; TREATMENT for venous thrombosis and/or pulmonary embolus.HIGH RISK: Target INR is 2.5-3.5 for patients with mechanical heart valves.CBC W/PLT COUNT & AUTO [id number] 15:56:00 Test Item Value Reference Range Comments WHITE BLOOD CELL COUNT (BEAKER) (test ffyl=997) 5.3 K/ L 4.0-10.0 RED BLOOD CELL COUNT (BEAKER) (test jcjc=060) 4.21 M/ L 4.00-5.00 HEMOGLOBIN (BEAKER) (test nppu=984) 14.1 GM/DL 12.0-15.0 HEMATOCRIT (BEAKER) (test oxeo=265) 41.7 % 36.0-45.0 MEAN CORPUSCULAR VOLUME (BEAKER) (test qwkv=272) 99.1 fL 82.0-99.0 MEAN CORPUSCULAR HEMOGLOBIN (BEAKER) (test 33.4 pg 27.0-33.0 wybf=552) MEAN CORPUSCULAR HEMOGLOBIN CONC (BEAKER) (test 33.7 GM/DL 32.0-36.0 lqyp=931) RED CELL DISTRIBUTION WIDTH (BEAKER) (test 13.2 % 10.3-14.2 effg=955) PLATELET COUNT (BEAKER) (test aams=221) 77 K/CU MM 150-430 MEAN PLATELET VOLUME (BEAKER) (test peby=267) 8.4 fL 6.5-10.5 NUCLEATED RED BLOOD CELLS (BEAKER) (test 0 /100 WBC 0-0 shtd=307) NEUTROPHILS RELATIVE PERCENT (BEAKER) (test 54 % nbre=911) LYMPHOCYTES RELATIVE PERCENT (BEAKER) (test 33 % myhh=776) MONOCYTES RELATIVE PERCENT (BEAKER) (test 10 % ignr=588) EOSINOPHILS RELATIVE PERCENT (BEAKER) (test 3 % rjfc=192) BASOPHILS RELATIVE PERCENT (BEAKER) (test 0 % obgs=944) NEUTROPHILS ABSOLUTE COUNT (BEAKER) (test 2.86 K/ L 1.80-8.00 yhai=146) LYMPHOCYTES ABSOLUTE COUNT (BEAKER) (test 1.77 K/ L 1.48-4.50 cnlu=702) MONOCYTES ABSOLUTE COUNT (BEAKER) (test beld=478) 0.56 K/ L 0.00-1.30 EOSINOPHILS ABSOLUTE COUNT (BEAKER) (test 0.13 K/ L 0.00-0.50 dtwu=799) BASOPHILS ABSOLUTE COUNT (BEAKER) (test oxsj=448) 0.02 K/ L 0.00-0.20 0.79TALY-[id number] 11:05:00 Test Item Value Reference Range Comments POC-CREATININE (BEAKER) 0.9 mg/dL 0.6-1.3 TESTED AT [facility] [address] [facility] (test fdau=4515) [facility] [address] POC-EGFR (BEAKER) (test 59 mL/min/1.73M2 drrw=0455)
[2019-09-01] MEDS ORDERED: ALBUMIN HUMAN 25% 200 ML IV ONE (11:50)
--- NOTE | 2019-09-01 12:25 | RAD REPORT ---
EXAM DESCRIPTION: US - Paracentesis Proc Guidance - 09/01/2019 10:35 am CLINICAL HISTORY: Ascites COMPARISON: Numerous prior paracentesis procedures. TECHNIQUE: The patient presents for ultrasound-guided paracentesis. The procedure, risks and altern atives were discussed with the patient in detail. Oral and written consent were obtained. Time out p rocedure was performed. The patient had no contraindicated allergy or medication history. PT, INR va lues within acceptable limits. Preliminary sonographic evaluation identified right lower quadrant access site. The skin and deeper tissues were anesthetized with 1 percent lidocaine. Under direct sonographic visualization, a parace ntesis catheter was advanced into the peritoneal cavity. Approximately 10 mL of ascites was removed f or requested laboratory studies. Large volume drainage was initiated. Approximately 4 liters of ascit es removed. At the conclusion of the procedure, catheter was withdrawn and a bandage placed at the puncture site. Postprocedure care and precaution instructions were given to the patient. The patient was transferr ed back to the same day surgical area for pending albumin therapy using referring physician protocol. IMPRESSION: Ultrasound-guided paracentesis as detailed.
[2019-09-01 13:07] VITALS: BP 118/60; TEMP 98; O2SAT 99
[2019-09-01 13:35] LABS: Body Fluid Source PERITONEAL; Color of fluid Yellow (COLORLESS)
[2019-09-01 13:36] LABS: Appearance SLT. TURBID (CLEAR); Body Fluid WBC 140 /mm^3
== END 2019-09-01 13:03 | disposition home or self-care (01) ==
LOC: DS 08:53
PROVIDERS: ATTEND Internal Medicine Gastroenterology
DX: R18.8 Other ascites (principal); K74.60 Unspecified cirrhosis of liver; K72.90 Hepatic failure, unspecified without coma; K76.0 Fatty (change of) liver, not elsewhere classified; R60.0 Localized edema; K30 Functional dyspepsia
CPT/HCPCS: 36415; 89050; 96365; 49083; P9047

== ENCOUNTER 2019-09-07 19:16 | Emergency (ER) | payer OTHER ==
--- OUTSIDE RECORDS SUMMARY | 2019-09-07 19:19 | XMS REPORT ---
:1930 Author Organization [facility] Address [address] [place] [address] Care Team Providers Name Role Phone MARY [...] Value Reference Range Comments ALPHA-FETOPROTEIN (BEAKER) (test tehb=2037) 2.9 ng/mL <10.0 HEPATIC FUNCTION [id number] 16:38:00 Test Item Value Reference Range Comments TOTAL PROTEIN (BEAKER) (test cmpa=788) 9.0 gm/dL 6.0-8.3 ALBUMIN (BEAKER) (test xzve=7814) 2.8 g/dL 3.5-5.0 BILIRUBIN TOTAL (BEAKER) (test qozn=851) 1.2 mg/dL 0.2-1.2 BILIRUBIN DIRECT (BEAKER) (test mgdv=943) 0.7 mg/dL 0.1-0.5 ALKALINE PHOSPHATASE (BEAKER) (test lums=347) 111 U/L 40-150 AST (SGOT) (BEAKER) (test tlpe=203) 31 U/L 5-34 ALT (SGPT) (BEAKER) (test dytt=403) 12 U/L 6-55 BASIC METABOLIC [id number] 16:38:00 Test Item Value Reference Range Comments SODIUM (BEAKER) (test 133 meq/L 136-145 ysjn=361) POTASSIUM (BEAKER) (test 4.0 meq/L 3.5-5.1 jgpv=220) CHLORIDE (BEAKER) (test 100 meq/L 98-107 jczd=630) CO2 (BEAKER) (test 27 meq/L 22-29 pezl=453) BLOOD UREA NITROGEN 20 mg/dL 7-21 (BEAKER) (test ihpx=867) CREATININE (BEAKER) (test 1.07 mg/dL 0.57-1.25 nlkn=462) GLUCOSE RANDOM (BEAKER) 71 mg/dL 70-105 (test ihxc=583) CALCIUM (BEAKER) (test 9.4 mg/dL 8.4-10.2 coga=822) EGFR (BEAKER) (test 49 mL/min/1.73 sq m ESTIMATED GFR IS NOT lxhb=3297) ACCURATE CREATININE CLEARANCE IN PREDICTING GLOMERULAR FILTRATION RATE. ESTIMATED GFR IS NOT APPLICABLE FOR DIALYSIS PATIENTS. [id number] 16:33:00 Test Item Value Reference Range Comments AMMONIA (BEAKER) (test hmsm=785) 40 mol/L 18-72 PROTHROMBIN [id number] 16:29:00 Test Item Value Reference Range Comments PROTIME (BEAKER) (test wkcm=512) 16.5 seconds 11.7-14.7 INR (BEAKER) (test uclq=621) 1.3 <=5.9 RECOMMENDED COUMADIN/WARFARIN INR THERAPY RANGESSTANDARD DOSE: 2.0 - 3.0 Includes: PROPHYLAXIS forvenous thrombosis, systemic embolization; TREATMENT for venous thrombosis and/or pulmonary embolus.HIGH RISK: Target INR is 2.5-3.5 for patients with mechanical heart valves.CBC W/PLT COUNT & AUTO [id number] 16:22:00 Test Item Value Reference Range Comments WHITE BLOOD CELL COUNT (BEAKER) (test nogt=937) 5.0 K/ L 3.5-10.5 RED BLOOD CELL COUNT (BEAKER) (test csou=032) 3.39 M/ L 3.93-5.22 HEMOGLOBIN (BEAKER) (test quso=102) 10.7 GM/DL 11.2-15.7 HEMATOCRIT (BEAKER) (test zijy=627) 33.1 % 34.1-44.9 MEAN CORPUSCULAR VOLUME (BEAKER) (test egaw=624) 97.6 fL 79.4-94.8 MEAN CORPUSCULAR HEMOGLOBIN (BEAKER) (test 31.6 pg 25.6-32.2 vknp=959) MEAN CORPUSCULAR HEMOGLOBIN CONC (BEAKER) (test 32.3 GM/DL 32.2-35.5 gxuu=824) RED CELL DISTRIBUTION WIDTH (BEAKER) (test 15.0 % 11.7-14.4 jemn=355) PLATELET COUNT (BEAKER) (test jojb=952) 98 K/CU MM 150-450 MEAN PLATELET VOLUME (BEAKER) (test ymdz=677) 10.0 fL 9.4-12.3 NUCLEATED RED BLOOD CELLS (BEAKER) (test 0 /100 WBC 0-0 lede=019) NEUTROPHILS RELATIVE PERCENT (BEAKER) (test 71 % zuyr=641) LYMPHOCYTES RELATIVE PERCENT (BEAKER) (test 14 % txhz=833) MONOCYTES RELATIVE PERCENT (BEAKER) (test 12 % cwsg=115) EOSINOPHILS RELATIVE PERCENT (BEAKER) (test 2 % pxlw=703) BASOPHILS RELATIVE PERCENT (BEAKER) (test 1 % idtx=564) NEUTROPHILS ABSOLUTE COUNT (BEAKER) (test 3.51 K/ L 1.56-6.13 yrzm=970) LYMPHOCYTES ABSOLUTE COUNT (BEAKER) (test 0.69 K/ L 1.18-3.74 vpwq=647) MONOCYTES ABSOLUTE COUNT (BEAKER) (test anzf=807) 0.62 K/ L 0.24-0.36 EOSINOPHILS ABSOLUTE COUNT (BEAKER) (test 0.10 K/ L 0.04-0.36 bjzi=023) BASOPHILS ABSOLUTE COUNT (BEAKER) (test ylyl=615) 0.04 K/ L 0.01-0.08 IMMATURE GRANULOCYTES-RELATIVE PERCENT (BEAKER) 0 % 0-1 (test aqzw=6283) ALPHA FETOPROTEIN (AFP), TUMOR [id number] 17:15:00 Test Item Value Reference Range Comments ALPHA-FETOPROTEIN (BEAKER) (test vlcw=7450) 3.3 ng/mL <10.0 [id number] 16:34:00 Test Item Value Reference Range Comments MAGNESIUM (BEAKER) (test moxp=208) 1.8 mg/dL 1.6-2.6 BASIC METABOLIC [id number] 16:34:00 Test Item Value Reference Range Comments SODIUM (BEAKER) (test 133 meq/L 136-145 zkxh=603) POTASSIUM (BEAKER) (test 3.9 meq/L 3.5-5.1 lkmh=200) CHLORIDE (BEAKER) (test 99 meq/L 98-107 ucoh=228) CO2 (BEAKER) (test 25 meq/L 22-29 movn=818) BLOOD UREA NITROGEN 12 mg/dL 7-21 (BEAKER) (test uuhs=087) CREATININE (BEAKER) (test 0.97 mg/dL 0.57-1.25 bryq=587) GLUCOSE RANDOM (BEAKER) 93 mg/dL 70-105 (test rtwz=047) CALCIUM (BEAKER) (test 9.0 mg/dL 8.4-10.2 sxge=191) EGFR (BEAKER) (test 54 mL/min/1.73 sq m ESTIMATED GFR IS NOT gbbx=1166) ACCURATE CREATININE CLEARANCE IN PREDICTING GLOMERULAR FILTRATION RATE. ESTIMATED GFR IS NOT APPLICABLE FOR DIALYSIS PATIENTS. Specimen slightly ictericHEPATIC FUNCTION [id number] 16:34:00 Test Item Value Reference Range Comments TOTAL PROTEIN (BEAKER) (test wyxv=055) 8.0 gm/dL 6.0-8.3 ALBUMIN (BEAKER) (test slpc=5978) 3.0 g/dL 3.5-5.0 BILIRUBIN TOTAL (BEAKER) (test cwts=910) 1.9 mg/dL 0.2-1.2 BILIRUBIN DIRECT (BEAKER) (test qiyf=591) 0.8 mg/dL 0.1-0.5 ALKALINE PHOSPHATASE (BEAKER) (test byuq=770) 122 U/L 40-150 AST (SGOT) (BEAKER) (test ijrb=963) 30 U/L 5-34 ALT (SGPT) (BEAKER) (test wywg=579) 12 U/L 6-55 Specimen slightly ictericPROTHROMBIN [id number] 16:17:00 Test Item Value Reference Range Comments PROTIME (BEAKER) (test nayx=974) 17.3 seconds 11.7-14.7 INR (BEAKER) (test dbxb=667) 1.4 <=5.9 RECOMMENDED COUMADIN/WARFARIN INR THERAPY RANGESSTANDARD DOSE: 2.0 - 3.0 Includes: PROPHYLAXIS forvenous thrombosis, systemic embolization; TREATMENT for venous thrombosis and/or pulmonary embolus.HIGH RISK: Target INR is 2.5-3.5 for patients with mechanical heart valves.CBC W/PLT COUNT & AUTO [id number] 16:17:00 Test Item Value Reference Range Comments WHITE BLOOD CELL COUNT (BEAKER) (test rytb=220) 5.6 K/ L 3.5-10.5 RED BLOOD CELL COUNT (BEAKER) (test skxg=744) 3.83 M/ L 3.93-5.22 HEMOGLOBIN (BEAKER) (test uhxt=401) 12.0 GM/DL 11.2-15.7 HEMATOCRIT (BEAKER) (test kucu=391) 36.8 % 34.1-44.9 MEAN CORPUSCULAR VOLUME (BEAKER) (test sdsh=307) 96.1 fL 79.4-94.8 MEAN CORPUSCULAR HEMOGLOBIN (BEAKER) (test 31.3 pg 25.6-32.2 ahwt=563) MEAN CORPUSCULAR HEMOGLOBIN CONC (BEAKER) (test 32.6 GM/DL 32.2-35.5 ganj=339) RED CELL DISTRIBUTION WIDTH (BEAKER) (test 15.9 % 11.7-14.4 gilz=428) PLATELET COUNT (BEAKER) (test elkk=120) 83 K/CU MM 150-450 MEAN PLATELET VOLUME (BEAKER) (test hzvy=695) 11.1 fL 9.4-12.3 NUCLEATED RED BLOOD CELLS (BEAKER) (test 0 /100 WBC 0-0 hcya=438) NEUTROPHILS RELATIVE PERCENT (BEAKER) (test 54 % bkjj=139) LYMPHOCYTES RELATIVE PERCENT (BEAKER) (test 36 % yocl=638) MONOCYTES RELATIVE PERCENT (BEAKER) (test 8 % qiwl=098) EOSINOPHILS RELATIVE PERCENT (BEAKER) (test 2 % salz=472) BASOPHILS RELATIVE PERCENT (BEAKER) (test 1 % ziro=724) NEUTROPHILS ABSOLUTE COUNT (BEAKER) (test 3.01 K/ L 1.56-6.13 wxxm=383) LYMPHOCYTES ABSOLUTE COUNT (BEAKER) (test 1.98 K/ L 1.18-3.74 inji=653) MONOCYTES ABSOLUTE COUNT (BEAKER) (test imhx=496) 0.44 K/ L 0.24-0.36 EOSINOPHILS ABSOLUTE COUNT (BEAKER) (test 0.10 K/ L 0.04-0.36 rkgf=097) BASOPHILS ABSOLUTE COUNT (BEAKER) (test yvbq=566) 0.04 K/ L 0.01-0.08 IMMATURE GRANULOCYTES-RELATIVE PERCENT (BEAKER) 0 % 0-1 (test iqwg=3550) ALPHA FETOPROTEIN (AFP), TUMOR [id number] 16:14:00 Test Item Value Reference Range Comments ALPHA-FETOPROTEIN (BEAKER) (test guyi=6656) 5.7 ng/mL <10.0 Effective 07/17/2014: Reference Range ChangeNew: <10.0 Previous: 0.0- [id number] 15:57:00 Test Item Value Reference Range Comments MAGNESIUM (BEAKER) (test mvrf=892) 1.9 mg/dL 1.6-2.6 BASIC METABOLIC [id number] 15:57:00 Test Item Value Reference Range Comments SODIUM (BEAKER) (test 139 meq/L 136-145 wsge=299) POTASSIUM (BEAKER) (test 4.5 meq/L 3.5-5.1 eczj=643) CHLORIDE (BEAKER) (test 105 meq/L 98-107 cgld=666) CO2 (BEAKER) (test 25 meq/L 22-29 yjgs=010) BLOOD UREA NITROGEN 15 mg/dL 7-21 (BEAKER) (test eizh=646) CREATININE (BEAKER) (test 0.95 mg/dL 0.57-1.25 cojh=363) GLUCOSE RANDOM (BEAKER) 86 mg/dL 70-105 (test eovo=107) CALCIUM (BEAKER) (test 9.4 mg/dL 8.4-10.2 agos=725) EGFR (BEAKER) (test 56 mL/min/1.73 sq m ESTIMATED GFR IS NOT kegh=8620) ACCURATE CREATININE CLEARANCE IN PREDICTING GLOMERULAR FILTRATION RATE. ESTIMATED GFR IS NOT APPLICABLE FOR DIALYSIS PATIENTS. Specimen slightly ictericHEPATIC FUNCTION [id number] 15:57:00 Test Item Value Reference Range Comments TOTAL PROTEIN (BEAKER) (test kuug=356) 7.6 gm/dL 6.0-8.3 ALBUMIN (BEAKER) (test ctwz=5764) 3.2 g/dL 3.5-5.0 BILIRUBIN TOTAL (BEAKER) (test mfot=457) 1.8 mg/dL 0.2-1.2 BILIRUBIN DIRECT (BEAKER) (test idlx=381) 0.8 mg/dL 0.1-0.5 ALKALINE PHOSPHATASE (BEAKER) (test dgcf=053) 112 U/L 40-150 AST (SGOT) (BEAKER) (test hett=460) 33 U/L 5-34 ALT (SGPT) (BEAKER) (test mgvh=047) 17 U/L 6-55 Specimen slightly ictericPROTHROMBIN [id number] 15:56:00 Test Item Value Reference Range Comments PROTIME (BEAKER) (test eeuf=907) 16.7 seconds 11.7-14.7 INR (BEAKER) (test umpy=725) 1.4 <=5.9 RECOMMENDED COUMADIN/WARFARIN INR THERAPY RANGESSTANDARD DOSE: 2.0 - 3.0 Includes: PROPHYLAXIS forvenous thrombosis, systemic embolization; TREATMENT for venous thrombosis and/or pulmonary embolus.HIGH RISK: Target INR is 2.5-3.5 for patients with mechanical heart valves.CBC W/PLT COUNT & AUTO [id number] 15:56:00 Test Item Value Reference Range Comments WHITE BLOOD CELL COUNT (BEAKER) (test tyua=776) 5.3 K/ L 4.0-10.0 RED BLOOD CELL COUNT (BEAKER) (test rhsy=259) 4.21 M/ L 4.00-5.00 HEMOGLOBIN (BEAKER) (test iyqz=847) 14.1 GM/DL 12.0-15.0 HEMATOCRIT (BEAKER) (test fxfr=019) 41.7 % 36.0-45.0 MEAN CORPUSCULAR VOLUME (BEAKER) (test ffhh=387) 99.1 fL 82.0-99.0 MEAN CORPUSCULAR HEMOGLOBIN (BEAKER) (test 33.4 pg 27.0-33.0 xsqz=800) MEAN CORPUSCULAR HEMOGLOBIN CONC (BEAKER) (test 33.7 GM/DL 32.0-36.0 aycc=688) RED CELL DISTRIBUTION WIDTH (BEAKER) (test 13.2 % 10.3-14.2 jnzp=323) PLATELET COUNT (BEAKER) (test frwi=814) 77 K/CU MM 150-430 MEAN PLATELET VOLUME (BEAKER) (test etnf=948) 8.4 fL 6.5-10.5 NUCLEATED RED BLOOD CELLS (BEAKER) (test 0 /100 WBC 0-0 ovcm=928) NEUTROPHILS RELATIVE PERCENT (BEAKER) (test 54 % lgsq=772) LYMPHOCYTES RELATIVE PERCENT (BEAKER) (test 33 % rxvz=350) MONOCYTES RELATIVE PERCENT (BEAKER) (test 10 % byro=198) EOSINOPHILS RELATIVE PERCENT (BEAKER) (test 3 % igvi=300) BASOPHILS RELATIVE PERCENT (BEAKER) (test 0 % rrpz=407) NEUTROPHILS ABSOLUTE COUNT (BEAKER) (test 2.86 K/ L 1.80-8.00 zxmz=714) LYMPHOCYTES ABSOLUTE COUNT (BEAKER) (test 1.77 K/ L 1.48-4.50 uyir=229) MONOCYTES ABSOLUTE COUNT (BEAKER) (test zuyc=309) 0.56 K/ L 0.00-1.30 EOSINOPHILS ABSOLUTE COUNT (BEAKER) (test 0.13 K/ L 0.00-0.50 cpdm=340) BASOPHILS ABSOLUTE COUNT (BEAKER) (test vhen=912) 0.02 K/ L 0.00-0.20 [id number] 11:05:00 Test Item Value Reference Range Comments POC-CREATININE (BEAKER) 0.9 mg/dL 0.6-1.3 TESTED AT [facility] [address] [facility] (test sxnr=0759) [facility] [address] POC-EGFR (BEAKER) (test 59 mL/min/1.73M2 zvdz=5498)
[2019-09-07] MEDS ORDERED: TETANUS & DIPHTHERIA TOX,ADULT 0.5 ML VIAL ONE (19:48)
[2019-09-07] MEDS ORDERED: PANTOPRAZOLE 40 MG INJ ONE ×2 (19:48→21:57)
[2019-09-07] MEDS ORDERED: ONDANSETRON 4 MG/2 ML VIAL ONE ×2 (19:48→20:37)
[2019-09-07] MEDS ORDERED: NA CHLORIDE 0.9% 1,000 ML ONE (19:48)
[2019-09-07 19:50] LABS: Absolute Lymphocytes (CBC) 0.5 K/uL (0.7-4.9); Hematocrit 26.2 % (36.0-45.0); Lymphocytes % 13.2 % (15.3-44.8)
[2019-09-07 19:51] LABS: Protime INR 1.67
[2019-09-07] MEDS ORDERED: FENTANYL CITR 100 MCG/2 ML ONE ×3 (19:51→22:13)
[2019-09-07 20:13] LABS: ALT/SGPT 14 U/L (12-78); AST/SGOT 23 U/L (15-37); Albumin 3.3 g/dL (3.4-5.0); Alkaline Phosphatase 91 U/L (45-117); BUN Blood Urea Nitrogen 15 mg/dL (7-18); Bicarbonate 28 mmol/L (21-32); Bilirubin Direct 0.4 mg/dL (0-0.2); Glucose Level 144 mg/dL (74-106); Lipase 251 U/L (73-393); Magnesium 2.5 mg/dL (1.8-2.4); NT PRO-BNP 144 pg/mL (<450); Platelet Estimate DECR; Potassium 4.2 mmol/L (3.5-5.1); Protein, Total 7.5 g/dL (6.4-8.2); Sodium Level 142 mmol/L (136-145); Troponin (Emerg Dept Use Only) < 0.02 ng/mL (0.0-0.045); Urine White Blood Cell Casts OK
--- NOTE | 2019-09-07 20:13 | RAD REPORT ---
EXAM DESCRIPTION: CT - Head C Spine Cap Wo Con - 09/07/2019 7:50 pm CLINICAL HISTORY: Trauma, head and neck injury. Chest, abdomen and pelvis pain. Pain;Swelling COMPARISON: Paracentesis Proc Guidance dated 09/01/2019 TECHNIQUE: CT head without contrast. CT cervical spine without contrast with coronal and sagittal reformatted images. CT chest, abdomen and pelvis without contrast with coronal and sagittal reformatted images of the spi ne. All CT scans are performed using dose optimization technique as appropriate and may include automated exposure control or mA/KV adjustment according to patient size. FINDINGS: CT HEAD WITHOUT CONTRAST: No intracranial hemorrhage, hydrocephalus or extra-axial fluid collection. Moderate generalized brain atrophy is present with moderate periventricular and deep white matter chronic microvascular ischemi c changes. No areas of brain edema or midline shift. The paranasal sinuses and mastoids are clear. The calvarium is intact. CT CERVICAL SPINE WITHOUT CONTRAST: No fracture or subluxation. Degenerative anterolisthesis of C 3 on 4 noted measuring 3 mm. Wiring is present in the posterior elements. The prevertebral soft tissues are normal in thickness. CT CHEST, ABDOMEN, PELVIS WITHOUT CONTRAST: NOTE: Lack of contrast is a significant limitation in the assessment of trauma related findings. Spec ifically, solid organ, vascular and bowel evaluation is significantly limited. A small moderate left pleural effusion.No pneumothorax. Large amount ascites is seen. Solid organ laceration is not identified a limited noncontrast study. S ignificant liver cirrhosis. Small calculi are present in both kidneys. Moderate lumbar degenerative changes are present. Intratrochanteric fracture of the right proximal femur is seen without displacement. The fracture ext ends to the basicervical region of the femoral neck. IMPRESSION: Right hip fracture. Large volume ascites. Small left pleural effusion.
[2019-09-07 20:14] LABS: Blood Morphology Comment NOT SEEN (NOT SEEN)
--- NOTE | 2019-09-07 20:26 | RAD REPORT ---
EXAM DESCRIPTION: RAD - Pelvis - 09/07/2019 8:19 pm CLINICAL HISTORY: PAIN Fall, pain to right hip COMPARISON: None FINDINGS: AP pelvis, right hip and right femur - multiple projections are submitted Intratrochanteric fracture the proximal right femur is seen. A fracture is seen to extend into the fe moral neck. No dislocation the bones are diffusely osteopenic.
--- NOTE | 2019-09-07 20:28 | RAD REPORT ---
EXAM DESCRIPTION: RAD - Hand Left 3 View - 09/07/2019 8:21 pm CLINICAL HISTORY: Pain;Swelling COMPARISON: No comparisons FINDINGS: Diffuse osteopenia is seen. Radiocarpal arthritic changes are present. No acute fracture o r dislocation.
--- NOTE | 2019-09-07 20:28 | RAD REPORT ---
EXAM DESCRIPTION: RAD - Chest Single View - 09/07/2019 8:19 pm CLINICAL HISTORY: Cough;Abdominal distention Chest pain. COMPARISON: Chest Single View dated 07/24/2019; Chest Single View dated 07/21/2019; Chest Single Vie w dated 05/31/2019; Chest Single View dated 05/30/2019 FINDINGS: Portable technique limits examination quality. The lungs are emphysematous but grossly clear. The heart is normal in size. Right-sided PICC line has tip in the SVC. IMPRESSION: No acute intrathoracic process suspected.
--- NOTE | 2019-09-07 20:32 | EDPHYS ---
Physician Documentation [facility] Name: Whitney Villalta Age: 88 yrs Sex: Female : 1930 Arrival Date: 09/07/2019 Time: 19:18 Bed X-Ray Private MD: ED Physician Keven Sousa HPI: 09/07 19:26 This 88 yrs old Female presents to ER via Unassigned with complaints of Fall patricia Injury. 19:26 Details of fall: The patient fell from an upright position, while walking. Onset: The patricia symptoms/episode began/occurred just prior to arrival. Associated injuries: The patient sustained injury to the head, right femoral area and right hip, decreased range of motion, hematoma, swelling. Severity of symptoms: At their worst the symptoms were mild, moderate, in the emergency department the symptoms are unchanged. The patient has not experienced similar symptoms in the past. Historical: - Allergies: 19:40 adhesive tapes; jd3 19:40 Morphine; jd3 - Home Meds: 19:40 docusate sodium 100 mg Oral cap 1 cap at bedtime [Active]; Ferrous Sulfate Oral daily jd3 [Active]; furosemide 40 mg Oral tab 1 tab once daily [Active]; gabapentin 300 mg Oral cap 1 cap 3 times per day [Active]; Iron CR Oral 28 mg twice a day [Active]; lactulose 20 gram/30 mL Oral soln twice a day [Active]; magnesium oxide 250 mg Oral tab twice a day [Active]; Magnesium Oxide Oral twice a day [Active]; midodrine 5 mg Oral tab 2 tabs twice a day [Active]; mupirocin 2 % Topical oint twice a day [Active]; omeprazole 40 mg Oral cpDR Every other day [Active]; potassium chloride 10 mEq Oral cpER 1 cap 2 times per day [Active]; propylene glycol ophthalmic every 4 hours [Active]; rifaximin 200 mg Oral 1 tab 2 times per day [Active]; spironolactone 25 mg Oral tab 2 tabs daily [Active]; sulfamethoxazole-trimethoprim Oral 2 times per day [Active]; Xifaxan 550 mg Oral tab 1 tab 2 times per day [Active]; - PMHx: 19:40 colon cancer; Liver disease; Lower extremity edema; Pneumonia; stage 4 cirrhrosis; jd3 - Immunization history:: Adult Immunizations up to date. - Social history:: Smoking status: Patient/guardian denies using tobacco. - Immunization history: Last tetanus immunization: unknown. - Family history:: not pertinent. - Ebola Screening: : Patient negative for fever greater than or equal to 101.5 degrees Fahrenheit, and additional compatible Ebola Virus Disease symptoms. ROS: 19:27 Constitutional: Negative for fever, chills, and weight loss, Eyes: Negative for injury, patricia pain, redness, and discharge, ENT: Negative for injury, pain, and discharge, Neck: Negative for injury, pain, and swelling, Cardiovascular: Negative for chest pain, palpitations, and edema, Respiratory: Negative for shortness of breath, cough, wheezing, and pleuritic chest pain, Back: Negative for injury and pain, : Negative for injury, bleeding, discharge, and swelling, Skin: Negative for injury, rash, and discoloration, Neuro: Negative for headache, weakness, numbness, tingling, and seizure, Psych: Negative for depression, anxiety, suicide ideation, homicidal ideation, and hallucinations, Allergy/Immunology: Negative for hives, rash, and allergies, Endocrine: Negative for neck swelling, polydipsia, polyuria, polyphagia, and marked weight changes, Hematologic/Lymphatic: Negative for swollen nodes, abnormal bleeding, and unusual bruising. 19:27 Abdomen/GI: Positive for abdominal pain, abdominal distension. 19:27 MS/extremity: Positive for contusion, decreased range of motion, pain, of the left hip and left upper thigh. Exam: 19:27 Constitutional: This is a well developed, well nourished patient who is awake, alert, patricia and in no acute distress. Head/Face: Normocephalic, atraumatic. Eyes: Pupils equal round and reactive to light, extra-ocular motions intact. Lids and lashes normal. Conjunctiva and sclera are non-icteric and not injected. Cornea within normal limits. Periorbital areas with no swelling, redness, or edema. ENT: Nares patent. No nasal discharge, no septal abnormalities noted. Tympanic membranes are normal and external auditory canals are clear. Oropharynx with no redness, swelling, or masses, exudates, or evidence of obstruction, uvula midline. Mucous membranes moist. Neck: Trachea midline, no thyromegaly or masses palpated, and no cervical lymphadenopathy. Supple, full range of motion without nuchal rigidity, or vertebral point tenderness. No Meningismus. Chest/axilla: Normal chest wall appearance and motion. Nontender with no deformity. No lesions are appreciated. Cardiovascular: Regular rate and rhythm with a normal S1 and S2. No gallops, murmurs, or rubs. Normal PMI, no JVD. No pulse deficits. Respiratory: Lungs have equal breath sounds bilaterally, clear to auscultation and percussion. No rales, rhonchi or wheezes noted. No increased work of breathing, no retractions or nasal flaring. Back: No spinal tenderness. No costovertebral tenderness. Full range of motion. Skin: Warm, dry with normal turgor. Normal color with no rashes, no lesions, and no evidence of cellulitis. Neuro: Awake and alert, GCS 15, oriented to person, place, time, and situation. Cranial nerves II-XII grossly intact. Motor strength 5/5 in all extremities. Sensory grossly intact. Cerebellar exam normal. Normal gait. Psych: Awake, alert, with orientation to person, place and time. Behavior, mood, and affect are within normal limits. 19:27 Abdomen/GI: Inspection: distension, Bowel sounds: normal, Palpation: nontender, Liver: no appreciated palpable abnormalities, Hernia: not appreciated. 19:27 Musculoskeletal/extremity: Extremities: noted in the right hip and right upper thigh: decreased ROM, pain, DVT Exam: no swelling, negative Homans' sign noted on exam, no appreciated bluish discoloration, no erythema, no increased warmth, pain, tenderness. Vital Signs: 19:24 BP 117 / 61; Pulse 103; Resp 17 S; Temp 98.1(TE); Pulse Ox 97% on R/A; Weight 62.14 kg jd3 (R); Height 5 ft. 5 in. (165.10 cm) (R); Pain 10/10; 21:14 BP 116 / 57; Pulse 99; Resp 18 S; Pulse Ox 95% on R/A; jd3 22:00 BP 113 / 55; Pulse 101; Resp 19 S; Pulse Ox 96% on R/A; jd3 19:24 Body Mass Index 22.80 (62.14 kg, 165.10 cm) jd3 Valeriy Coma Score: 19:24 Eye Response: spontaneous(4). Verbal Response: oriented(5). Motor Response: obeys jd3 commands(6). Total: 15. 21:16 Eye Response: spontaneous(4). Verbal Response: oriented(5). Motor Response: obeys jd3 commands(6). Total: 15. Trauma Score (Adult): 19:24 Eye Response: spontaneous(1); Verbal Response: oriented(1); Motor Response: obeys jd3 commands(2); Systolic BP: > 89 mm Hg(4); Respiratory Rate: 10 to 29 per min(4); Valeriy Score: 15; Trauma Score: 12 21:16 Eye Response: spontaneous(1); Verbal Response: oriented(1); Motor Response: obeys jd3 commands(2); Systolic BP: > 89 mm Hg(4); Respiratory Rate: 10 to 29 per min(4); [place] Score: 15; Trauma Score: 12 MDM: 19:29 Data reviewed: vital signs, nurses notes, lab test result(s), EKG, radiologic studies, [facility] CT scan, plain films. 19:30 Patient medically screened. [facility] 09/07 19:25 Order name: Basic Metabolic Panel; Complete Time: 20:21 [facility] 09/07 19:25 Order name: CBC with Diff; Complete Time: 20:21 [facility] 09/07 19:25 Order name: LFT's; Complete Time: 20:21 [facility] 09/07 19:25 Order name: Magnesium; Complete Time: 20:21 [facility] 09/07 19:25 Order name: NT PRO-BNP; Complete Time: 20:22 [facility] 09/07 19:25 Order name: PT-INR; Complete Time: 20:21 [facility] 09/07 19:25 Order name: Troponin (emerg Dept Use Only); Complete Time: 20:22 [facility] 09/07 19:25 Order name: XRAY Chest (1 view); Complete Time: 20:57 [facility] 09/07 19:25 Order name: Lipase; Complete Time: 20:22 [facility] 09/07 19:25 Order name: Type And Screen [facility] 09/07 19:25 Order name: AMMONIA; Complete Time: 20:22 [facility] 09/07 20:14 Order name: CBC Smear Scan; Complete Time: 20:22 [facility] 09/07 20:54 Order name: Antibody Identification [facility] 09/07 19:25 Order name: CT Traumagram (Head C Spine CAP wo con); Complete Time: 20:22 [facility] 09/07 19:25 Order name: Pelvis XRAY; Complete Time: 20:57 [facility] 09/07 19:25 Order name: Hand Left 3 View XRAY; Complete Time: 20:57 [facility] 09/07 19:42 Order name: Femur Right [facility] 09/07 19:42 Order name: Hip Right 2 View XRAY [facility] 09/07 19:25 Order name: EKG; Complete Time: 19:27 [facility] 09/07 19:25 Order name: Cardiac monitoring; Complete Time: 20:49 [facility] 09/07 19:25 Order name: EKG - Nurse/Tech; Complete Time: 20:49 [facility] 09/07 19:25 Order name: IV Saline Lock; Complete Time: 19:42 [facility] 09/07 19:25 Order name: Labs collected and sent; Complete Time: 19:42 [facility] 09/07 19:25 Order name: O2 Per Protocol; Complete Time: 19:42 [facility] 09/07 19:25 Order name: O2 Sat Monitoring; Complete Time: 19:42 [facility] Administered Medications: 19:57 Drug: fentaNYL (PF) 25 mcg Route: IVP; Site: PICC; jd3 20:55 Follow up: Response: No adverse reaction; RASS: Alert and Calm (0) jd3 19:57 Drug: Zofran 4 mg Route: IVP; Site: PICC; jd3 20:50 Follow up: Response: No adverse reaction jd3 20:30 Drug: Zofran 4 mg Route: IVP; Site: PICC; jd3 21:30 Follow up: Response: No adverse reaction jd3 20:48 Drug: ProTONIX 40 mg Route: IVP; Site: PICC; jd3 21:40 Follow up: Response: No adverse reaction jd3 20:48 Drug: NS 0.9% 1000 ml Route: IV; Rate: 75 ml/hr; Site: PICC; jd3 22:00 Follow up: Response: No adverse reaction; IV Status: Infusion continued upon transfer jd3 20:48 Drug: Tetanus-Diphtheria Toxoid Adult 0.5 ml {[employer]: [employer]. Exp: jd3 07/28/2021. Lot #: [id number]. } Route: IM; Site: right deltoid; 21:40 Follow up: Response: No adverse reaction jd3 21:13 Drug: fentaNYL (PF) 25 mcg Route: IVP; Site: right antecubital; aa1 22:10 Follow up: Response: No adverse reaction; RASS: Alert and Calm (0) jd3 21:25 Drug: Vitamin K1 10 mg Route: Sub-Q; Site: right upper arm; jd3 22:25 Follow up: Response: No adverse reaction jd3 21:50 Drug: ProTONIX 40 mg Route: IVP; Site: PICC; jd3 22:10 Follow up: Response: No adverse reaction jd3 21:58 Drug: Phenergan 6.25 mg Route: IVP; Site: PICC; jd3 22:20 Follow up: Response: No adverse reaction jd3 22:10 Drug: Phenergan 6.25 mg Route: IVP; Site: PICC; jd3 22:20 Follow up: Response: No adverse reaction jd3 22:14 Drug: fentaNYL (PF) 25 mcg Route: IVP; Site: PICC; jd3 22:30 Follow up: Response: No adverse reaction; RASS: Alert and Calm (0) jd3 Disposition: 09/07/19 21:03 Transfer ordered to [facility]. Diagnosis are Fall due to bumping against object, Ascites, Unspecified cirrhosis of liver, Anemia, unspecified, Coagulation defect, unspecified, Gastrointestinal hemorrhage, unspecified - upper, Thrombocytopenia, unspecified. - Reason for transfer: Higher level of care. - Accepting physician is to [facility], [facility]. - Condition is Fair. - Problem is new. - Symptoms have improved. Signatures: Dispatcher [employer] EDNE Amanda Wallis RN RN aa1 Keven Sousa MD MD cha Ballard, Brenda, RN RN bb Davies, Jonathon, RN RN jd3 Corrections: (The following items were deleted from the chart) 19:42 19:27 Femur Left+RAD.RAD.BRZ ordered. EDMS EDMS 19:58 19:43 Hip Right 2 View+RAD.RAD.BRZ ordered. EDNE EDMS 21:01 20:31 Hospitalization Ordered by Dawit Bear for Inpatient Admission. Preliminary [facility] diagnosis is Fall due to bumping against object; Ascites; Fracture of unspecified part of neck of right femur; Unspecified cirrhosis of liver. Bed requested for Telemetry/MedSurg (Inpatient). Status is Inpatient Admission. Condition is Fair. Problem is new. Symptoms have improved. UTI on Admission? No. patricia 21:35 21:03 09/07/2019 21:03 Transfer ordered to [facility]. Diagnosis is patricia Fall due to bumping against object; Ascites; Unspecified cirrhosis of liver; Anemia, unspecified; Coagulation defect, unspecified. Reason for transfer: Higher level of care. Accepting physician is to [facility]. Condition is Fair. Problem is new. Symptoms have improved. patricia 21:36 21:35 09/07/2019 21:03 Transfer ordered to [facility]. Diagnosis is patricia Fall due to bumping against object; Ascites; Unspecified cirrhosis of liver; Anemia, unspecified; Coagulation defect, unspecified; Gastrointestinal hemorrhage, unspecified - upper. Reason for transfer: Higher level of care. Accepting physician is to [facility]. Condition is Fair. Problem is new. Symptoms have improved. [facility] 21:56 21:36 09/07/2019 21:03 Transfer ordered to [facility]. Diagnosis is patricia Fall due to bumping against object; Ascites; Unspecified cirrhosis of liver; Anemia, unspecified; Coagulation defect, unspecified; Gastrointestinal hemorrhage, unspecified - upper; Thrombocytopenia, unspecified. Reason for transfer: Higher level of care. Accepting physician is to [facility]. Condition is Fair. Problem is new. Symptoms have improved. [facility] 22:36 21:56 09/07/2019 21:03 Transfer ordered to [facility]. bb Diagnosis is Fall due to bumping against object; Ascites; Unspecified cirrhosis of liver; Anemia, unspecified; Coagulation defect, unspecified; Gastrointestinal hemorrhage, unspecified - upper; Thrombocytopenia, unspecified. Reason for transfer: Higher level of care. Accepting physician is to [facility]. Condition is Fair. Problem is new. Symptoms have improved. patricia
--- NOTE | 2019-09-07 20:32 | ER ---
Nurse's Notes [facility] Name: Whitney Villalta Age: 88 yrs Sex: Female : 1930 Arrival Date: 09/07/2019 Time: 19:18 Bed X-Ray Private MD: Diagnosis: Fall due to bumping against object;Ascites;Unspecified cirrhosis of liver;Anemia, unspecified;Coagulation defect, unspecified;Gastrointestinal hemorrhage, unspecified-upper;Thrombocytopenia, unspecified Presentation: 09/07 19:25 Presenting complaint: EMS states: "The pt fell on the way to the restroom today. she jd3 reported she felt a pop in her legs and fell. she hit the back of her head, has a lac to her left hand, and reporting pain to the right leg/hip. she is distended because of the stage 4 cirrhosis. she is scheduled to have her 39th paracentesis tomorrow here at this facility.". Care prior to arrival: None. Mechanism of Injury: Fall from standing position. Trauma event details: Injury occurred in the [facility], Injury occurred: in an institution. Injury occurred: September 07, 2019. 19:25 Method Of Arrival: EMS: [facility] jd3 19:25 Acuity: KELLY 2 jd3 19:36 Transition of care: patient was received from another setting of care (long-term care [facility] facility), [facility]. Onset of symptoms was September 07, 2019. Risk Assessment: Do you want to hurt yourself or someone else? Patient reports no desire to harm self or others. Initial Sepsis Screen: Does the patient meet any 2 criteria? No. Patient's initial sepsis screen is negative. Does the patient have a suspected source of infection? No. Patient's initial sepsis screen is negative. Trauma Activation: Alert Physician: ED Physician; Name: Lars; Notified At: ; Arrived At: Physician: General Surgeon; Name: ; Notified At: ; Arrived At: Physician: Radiology; Name: ; Notified At: ; Arrived At: Physician: Respiratory; Name: ; Notified At: ; Arrived At: Physician: Lab; Name: ; Notified At: ; Arrived At: Historical: - Allergies: 19:40 adhesive tapes; jd3 19:40 Morphine; jd3 - Home Meds: 19:40 docusate sodium 100 mg Oral cap 1 cap at bedtime [Active]; Ferrous Sulfate Oral daily jd3 [Active]; furosemide 40 mg Oral tab 1 tab once daily [Active]; gabapentin 300 mg Oral cap 1 cap 3 times per day [Active]; Iron CR Oral 28 mg twice a day [Active]; lactulose 20 gram/30 mL Oral soln twice a day [Active]; magnesium oxide 250 mg Oral tab twice a day [Active]; Magnesium Oxide Oral twice a day [Active]; midodrine 5 mg Oral tab 2 tabs twice a day [Active]; mupirocin 2 % Topical oint twice a day [Active]; omeprazole 40 mg Oral cpDR Every other day [Active]; potassium chloride 10 mEq Oral cpER 1 cap 2 times per day [Active]; propylene glycol ophthalmic every 4 hours [Active]; rifaximin 200 mg Oral 1 tab 2 times per day [Active]; spironolactone 25 mg Oral tab 2 tabs daily [Active]; sulfamethoxazole-trimethoprim Oral 2 times per day [Active]; Xifaxan 550 mg Oral tab 1 tab 2 times per day [Active]; - PMHx: 19:40 colon cancer; Liver disease; Lower extremity edema; Pneumonia; stage 4 cirrhrosis; jd3 - Immunization history:: Adult Immunizations up to date. - Social history:: Smoking status: Patient/guardian denies using tobacco. - Immunization history: Last tetanus immunization: unknown. - Family history:: not pertinent. - Ebola Screening: : Patient negative for fever greater than or equal to 101.5 degrees Fahrenheit, and additional compatible Ebola Virus Disease symptoms. Screenin:35 Abuse screen: Denies threats or abuse. Tuberculosis screening: No symptoms or risk jd3 factors identified. 19:42 Nutritional screening: No deficits noted. Fall Risk Fall in past 12 months (25 points). jd3 Ambulatory Aid- None/Bed Rest/Nurse Assist (0 pts). Gait- Normal/Bed Rest/Wheelchair (0 pts) Mental Status- Oriented to own ability (0 pts). Total Madrid Fall Scale indicates Low Risk Score (25-44 pts). Fall prevention measures have been instituted. Side Rails Up X 2 Placed close to Nursing Station Frequent Obs/Assesments occuring. Primary Survey: 19:31 NO uncontrolled hemorrhage observed. A: The patient is alert. Airway: patent, No jd3 supplemental oxygen in use on arrival. Oral cavity: clear, Trachea midline. Breathing/Chest: Respiratory pattern: regular, Respiratory effort: spontaneous, unlabored, Chest inspection: symmetrical rise and fall of the chest. Circulation: Pulses: palpable right radial artery, right dorsalis pedis artery, left radial artery and left dorsalis pedis artery. Skin color: pink, Skin temperature: warm. Disability Alert. Exposure/Environment: All clothing and personal items were removed. Forensic evidence collection is not deemed to be indicated at this time. Items placed in patient belonging bag. There is no evidence of uncontrolled external bleeding. Obvious injury(ies) are noted at this time: laceration to back of head, abrasion noted to left hand. A warming method has been applied: A warm blanket has been provided to the patient. 20:30 Reassessment Airway Airway Patent Breathing/Chest Respiratory pattern Regular jd3 Respiratory effort Spontaneous Unlabored Chest inspection Symmetrical Circulation Pulses Palpable Color Vermilion Temperature Warm Disability Alert. Secondary Survey: 19:34 HEENT: Head Other laceration noted to back of head Face No injury/deformity. jd3 Gastrointestinal: Abdomen is soft, distended. : No signs and/or symptoms were reported regarding the genitourinary system. Musculoskeletal: Circulation, motion, and sensation intact. Range of motion: limited in left hip and right hip. Assessment: 19:29 General: Appears in no apparent distress. uncomfortable, Behavior is calm, cooperative, jd3 appropriate for age. Pain: Complains of pain in right hip, back of head, left hand and right leg Quality of pain is described as sharp, tender. Neuro: Level of Consciousness is awake, alert, obeys commands, Oriented to person, place, time, situation. EENT: No signs and/or symptoms were reported regarding the EENT system. Cardiovascular: Denies chest pain, Capillary refill < 3 seconds Patient's skin is warm and dry. Respiratory: Airway is patent Respiratory effort is even, unlabored, Respiratory pattern is regular, symmetrical, Denies cough, shortness of breath. GI: Abdomen is round distended, Abd is non tender X 4 quads Patient currently denies nausea, vomiting. : No signs and/or symptoms were reported regarding the genitourinary system. Derm: Skin is intact, Skin is dry, Skin is normal, Skin temperature is warm. Musculoskeletal: Circulation, motion, and sensation intact. Range of motion: limited in left hip and right hip. 20:25 Reassessment: Patient appears in no apparent distress at this time. No changes from jd3 previously documented assessment. Patient and/or family updated on plan of care and expected duration. Pain level reassessed. Patient is alert, oriented x 3, equal unlabored respirations, skin warm/dry/pink. left hand wrapped. 21:15 Reassessment: Patient appears in no apparent distress at this time. Patient and/or jd3 family updated on plan of care and expected duration. Pain level reassessed. Patient is alert, oriented x 3, equal unlabored respirations, skin warm/dry/pink. 21:26 Reassessment: Dr. Sousa at bedside discussing care with pt. [facility] 21:55 Reassessment: Patient appears in no apparent distress at this time. Patient and/or jd3 family updated on plan of care and expected duration. Pain level reassessed. Patient is alert, oriented x 3, equal unlabored respirations, skin warm/dry/pink. pt reporting continued pain. pt throwing up coffee ground emesis. 22:20 Reassessment: Patient appears in no apparent distress at this time. Patient and/or jd3 family updated on plan of care and expected duration. Pain level reassessed. Patient is alert, oriented x 3, equal unlabored respirations, skin warm/dry/pink. report given to EMS. Vital Signs: 19:24 BP 117 / 61; Pulse 103; Resp 17 S; Temp 98.1(TE); Pulse Ox 97% on R/A; Weight 62.14 kg jd3 (R); Height 5 ft. 5 in. (165.10 cm) (R); Pain 10/10; 21:14 BP 116 / 57; Pulse 99; Resp 18 S; Pulse Ox 95% on R/A; jd3 22:00 BP 113 / 55; Pulse 101; Resp 19 S; Pulse Ox 96% on R/A; jd3 19:24 Body Mass Index 22.80 (62.14 kg, 165.10 cm) jd3 Parrott Coma Score: 19:24 Eye Response: spontaneous(4). Verbal Response: oriented(5). Motor Response: obeys jd3 commands(6). Total: 15. 21:16 Eye Response: spontaneous(4). Verbal Response: oriented(5). Motor Response: obeys jd3 commands(6). Total: 15. Trauma Score (Adult): 19:24 Eye Response: spontaneous(1); Verbal Response: oriented(1); Motor Response: obeys jd3 commands(2); Systolic BP: > 89 mm Hg(4); Respiratory Rate: 10 to 29 per min(4); Valeriy Score: 15; Trauma Score: 12 21:16 Eye Response: spontaneous(1); Verbal Response: oriented(1); Motor Response: obeys jd3 commands(2); Systolic BP: > 89 mm Hg(4); Respiratory Rate: 10 to 29 per min(4); Valeriy Score: 15; Trauma Score: 12 ED Course: 19:18 Patient arrived in ED. bb 19:20 Keven Sousa MD is Attending Physician. patricia 19:23 Slim Cavanaugh RN is Primary Nurse. jd3 19:29 Triage completed. jd3 19:36 Patient has correct armband on for positive identification. Placed in gown. Bed in low jd3 position. Call light in reach. Side rails up X2. 19:36 Patient maintains SpO2 saturation greater than 95% on room air. jd3 19:38 Initial lab(s) drawn, by me, sent to lab. T\\T\\S collected, blood band applied to patient. aa1 Accessed PICC line. Blood collected. Clean \\T\\ dry. Dressing intact. Good blood return. Flushes easily. 19:42 Arm band placed on. jd3 19:42 Thermoregulation: warm blanket given to patient. jd3 19:51 CT Traumagram (Head C Spine CAP wo con) In Process Unspecified. EDMS 20:20 XRAY Chest (1 view) In Process Unspecified. EDMS 20:20 Pelvis XRAY In Process Unspecified. EDMS 20:20 Hand Left 3 View XRAY In Process Unspecified. EDMS 20:20 Femur Right In Process Unspecified. EDMS 20:20 Hip Right 2 View XRAY In Process Unspecified. EDMS 20:27 Dawit Bear is Hospitalizing Provider. patricia 22:30 No provider procedures requiring assistance completed. Patient transferred, IV remains jd3 in place. Administered Medications: 19:57 Drug: fentaNYL (PF) 25 mcg Route: IVP; Site: PICC; jd3 20:55 Follow up: Response: No adverse reaction; RASS: Alert and Calm (0) jd3 19:57 Drug: Zofran 4 mg Route: IVP; Site: PICC; jd3 20:50 Follow up: Response: No adverse reaction jd3 20:30 Drug: Zofran 4 mg Route: IVP; Site: PICC; jd3 21:30 Follow up: Response: No adverse reaction jd3 20:48 Drug: ProTONIX 40 mg Route: IVP; Site: PICC; jd3 21:40 Follow up: Response: No adverse reaction jd3 20:48 Drug: NS 0.9% 1000 ml Route: IV; Rate: 75 ml/hr; Site: PICC; jd3 22:00 Follow up: Response: No adverse reaction; IV Status: Infusion continued upon transfer jd3 20:48 Drug: Tetanus-Diphtheria Toxoid Adult 0.5 ml {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 Exp: jd3 07/28/2021. Lot #: [id number]. } Route: IM; Site: right deltoid; 21:40 Follow up: Response: No adverse reaction jd3 21:13 Drug: fentaNYL (PF) 25 mcg Route: IVP; Site: right antecubital; aa1 22:10 Follow up: Response: No adverse reaction; RASS: Alert and Calm (0) jd3 21:25 Drug: Vitamin K1 10 mg Route: Sub-Q; Site: right upper arm; jd3 22:25 Follow up: Response: No adverse reaction jd3 21:50 Drug: ProTONIX 40 mg Route: IVP; Site: PICC; jd3 22:10 Follow up: Response: No adverse reaction jd3 21:58 Drug: Phenergan 6.25 mg Route: IVP; Site: PICC; jd3 22:20 Follow up: Response: No adverse reaction jd3 22:10 Drug: Phenergan 6.25 mg Route: IVP; Site: PICC; jd3 22:20 Follow up: Response: No adverse reaction jd3 22:14 Drug: fentaNYL (PF) 25 mcg Route: IVP; Site: PICC; jd3 22:30 Follow up: Response: No adverse reaction; RASS: Alert and Calm (0) jd3 Intake: 22:00 PO: 0ml; Total: 0ml. jd3 22:30 PO: 0ml; Total: 0ml. jd3 Output: 22:00 Urine: 0ml; Total: 0ml. jd3 22:30 Urine: 0ml; Total: 0ml. jd3 Outcome: 20:31 Decision to Hospitalize by Provider. patricia 21:03 ER care complete, transfer ordered by . patricia 22:30 Patient's length of stay in the Emergency Department was greater than 2 hours. waiting j for transfer and resultsPatient's length of stay extended due to 22:36 Patient left the ED. 22:57 Transferred by ground EMS to [facility], Transfer form completed. X-rays sent jd3 w/ patient. Note: report given to Asa CHRISTIANSEN at [facility] 22:57 Condition: stable 22:57 Instructed on the need for transfer, Demonstrated understanding of instructions. Signatures: Dispatcher [employer] EDAmanda Yuen RN RN aa1 Keven Sousa MD MD cha Ballard, Brenda, RN RN bb Davies, Jonathon, RN RN jd3 Corrections: (The following items were deleted from the chart) 19:42 19:25 Presenting complaint: EMS states: "The pt fell on the way to the restroom today. jd3 she reported she felt a pop in her legs and fell. she hit the back of her head, has a lac to her left hand, and reporting pain to the right leg/hip." jd3 21:38 19:36 Transition of care: patient was not received from another setting of care. jd3 jd3 22:58 22:58 PO 0, Urine 0, jd3 jd3 22:58 22:58 BP 113 / 55; Pulse 101bpm; Resp 19bpm; Spontaneous; Pulse Ox 96% RA; jd3 jd3
[2019-09-07] MEDS ORDERED: VITAMIN K (ADULT) 10 MG/ML ONE (21:15)
[2019-09-07] MEDS ORDERED: PROMETHAZINE INJ 25 MG/ML AMP ONE ×2 (22:03→22:09)
[2019-09-07 22:42] VITALS: TEMP 98.1
[2019-09-07 22:43] VITALS: BP 116/57; O2SAT 95
--- NOTE | 2019-09-08 12:21 | EKG ---
Test Date: 2019-09-07 Test Time: 20:30:48 Senior Financial: KATHY MEASUREMENT RESULTS: Intervals: Rate: 102 MI: 180 QRSD: 72 QT: 344 QTc: 448 [place]: P: 88 MI: 180 QRS: 52 T: 19 INTERPRETIVE STATEMENTS: Poor data quality Sinus tachycardia with premature supraventricular complexes Low voltage QRS Abnormal ECG Compared to ECG 07/24/2019 16:56:31 Atrial premature complex(es) now present Low QRS voltage now present Sinus rhythm no longer present Electronically Signed On 09-08-19 12:20:24 DIESEL AUTOMOTIVE TECHNICIAN by Bravo Gonzalez
--- NOTE | 2019-09-08 13:20 | RAD REPORT ---
EXAM DESCRIPTION: RAD - Femur Right - 09/07/2019 8:19 pm CLINICAL HISTORY: PAIN Fall, pain to right hip COMPARISON: None FINDINGS: AP pelvis, right hip and right femur - multiple projections are submitted Intratrochanteric fracture the proximal right femur is seen. A fracture is seen to extend into the fe moral neck. No dislocation the bones are diffusely osteopenic.
--- NOTE | 2019-09-08 13:20 | RAD REPORT ---
EXAM DESCRIPTION: RAD - Hip Right 2 View - 09/07/2019 8:19 pm CLINICAL HISTORY: PAIN Fall, pain to right hip COMPARISON: None FINDINGS: AP pelvis, right hip and right femur - multiple projections are submitted Intratrochanteric fracture the proximal right femur is seen. A fracture is seen to extend into the fe moral neck. No dislocation the bones are diffusely osteopenic.
== END 2019-09-07 22:36 | disposition short-term general hospital (02) ==
LOC: ER 19:16
DX: S09.90XA Unspecified injury of head, initial encounter (principal); M25.551 Pain in right hip; M79.642 Pain in left hand; K92.2 Gastrointestinal hemorrhage, unspecified; D64.9 Anemia, unspecified; R18.8 Other ascites; K74.60 Unspecified cirrhosis of liver; D69.6 Thrombocytopenia, unspecified; D68.9 Coagulation defect, unspecified; W18.00XA Striking against unspecified object with subsequent fall, initial encounter; Y93.01 Activity, walking, marching and hiking; Y92.9 Unspecified place or not applicable; Z23 Encounter for immunization; Z88.5 Allergy status to narcotic agent; Z91.048 Other nonmedicinal substance allergy status
CPT/HCPCS: 96361; 93005; 85025; 80048; 36415; 82140; 86900; 83735; 86850; 85610; 86870; 86901; 80076; 84484; 83690; 83880; 70450; 71250; 72125; 71045; 72170; 73130; 73502; 73552; 90471; 90714; 96375; 96372; 96374; 99285; J2550 ×2; J3430; C9113 ×2; J3010 ×3; J7030; J2405 ×2